=== PATIENT | female | born 1985 | race African-American/Black ===

== ENCOUNTER 2017-03-29 20:52 | Inpatient (IN) | payer OTHER ==
[~2017-03-29] VITALS: Ht 160 cm; Wt 64.0 kg
[~2017-03-29 20:52] MED LIST: ALBUTEROL SULF8.5 GM INH; ALBUTEROL0.63 MG/3; ALBUTEROL0.63 MG/3 INH; AMBIEN10 MG PO; AMBIEN5 MG PO; AMLODIPINE BESY10 MG PO; AMLODIPINE BESYL5 MG PO; ATIVAN0.5 MG PO; ATIVAN1 MG PO; ATIVAN2 MG PO; BACLOFEN10 MG PO; BENADRYL25 M1 PO; BENADRYL50 MG/1 ML IV; BENTYL10 MG PO; BENTYL20 MG PO; BUTALB-ACETAMI1 EACH; CARAFATE1 GM PO; CARAFATE1 GM/10 ML PO; CARDIZEM30 MG PO; CARDURA2 MG PO; CEFUROXIME250 MG PO; CIPROFLOXACIN500 MG PO; CLARITIN-D 241 EACH PO; CLONAZEPAM1 MG PO; COLACE100 MG PO; COREG12.5 MG PO; COZAAR25 MG PO; DIALYVITE TABL1 EACH PO; DIAZEPAM10 MG PO; DIFLUCAN200 MG PO; DIGOXIN250 MCG PO; DILANTIN100 MG PO; DULCOLAX10 MG PO; FERROUS SULFAT325 MG PO; FLAGYL500 MG PO; Fluticasone Propionate NS; GABAPENTIN100 MG PO; GABAPENTIN300 MG PO; HEPARIN SO1000 UNIT1 IV; HUMULIN R100 UNIT/2 SC; HUMULIN R100 UNIT/2 SQ; HYDRALAZINE HCL25 MG PO; HYDROCHLOROTHIA25 MG PO; HYDROCORTISONE OT; IPRATROPIU0.2 MG/1 M NEB; IRON45 MG PO; Isosorbide Mononitrate PO; LABETALOL HCL300 MG PO; LANOXIN250 MCG PO; LANTUS100 UNITS/ SC; LASIX40 MG PO; LEVAQUIN500 MG PO; LEVEMIR100 UNIT/1 SC; LEVOTHROID88 MCG PO; LIDOCAINE20 MG/1 ML PO; LOPRESSOR25 MG PO; MAGNESIUM CITRATE PO; MECLIZINE HCL12.5 MG PO; MEDROXYPROGESTE10 MG PO; METHOCARBAMOL500 MG PO; METOCLOPRAMID5 MG/ML PO; METOCLOPRAMIDE10 MG PO; METOPROLOL SUCC50 MG PO; METOPROLOL TART50 MG PO; METPCK PO; METRONIDAZOLE500 MG PO; MINOXIDIL2.5 MG PO; MIRTAZAPINE15 MG PO; MORPHINE SULFAT30 M2 PO; MORPHINE SULFAT60 MG PO; MS CONTIN30 MG PO; MUCINEX600 MG PO; NEOMYCIN OT; NEXIUM40 MG PO; NFD30TCR PO; NIFEDIPINE ER30 M1 PO; Nifedipine PO; ORPHENADRINE C100 MG PO; PANTOPRAZOLE SO40 MG PO; PENICILLIN V P500 MG PO; PHENERGAN SUPP25 MG PR; PNT40V PO; PRINIVIL10 MG PO; PROBIOTIC & AC1 EACH PO; PROMETHAZINE HC25 M1 PO; PROTONIX40 MG PO; Phenytoin Sodium PO; QUESTRAN LIGHT P4 GM PO; RANITIDINE HCL300 MG PO; REGLAN10 MG PO; ROBAXIN500 MG PO; SENOKOT8.6 MG PO; SODIUM BICARBO650 MG PO; SUCRALFATE1 G/10 ML PO; SULFAMETHOXAZO1 EAC1 PO; TIZANIDINE HCL4 M1; TOBRADEX EYE DRO5 ML OS; TRANDATE200 MG PO; XANAX XR1 MG PO; XANAX0.5 MG PO; ZYRTEC10 M3 PO; [UNRECOGNIZED DRUG - OTHER] OT
[2017-03-29] MEDS ORDERED: BENADRYL25 M1 PO (22:48)
[2017-03-29] MEDS ORDERED: LOMOTIL TABLET1 EACH PO (22:49)
[2017-03-29] MEDS ORDERED: HYDROXYZINE HCL25 MG PO (22:49)
[2017-03-29] MEDS ORDERED: MORPHINE SULFATE 2 MG/ML SYR IV STA (23:32)
[2017-03-29] MEDS ORDERED: PROMETHAZINE 12.5MG/ NACL 0.9% 12.5 MG/50 ML BAG IV ONE (23:45)
[2017-03-29] MEDS ORDERED: DIPHENHYDRAMINE HCL INJ 50 MG/ML VIAL IV ONE (23:45)
[2017-03-30 00:15] LABS: BASOPHILS % 0.4 % (0.0-1.0); EOSINOPHILS # (AUTO) 0.2 (0.0-0.4); EOSINOPHILS % 4.5 % (0.0-6.0); HEMATOCRIT 30.9 % (34.2-44.1); HEMOGLOBIN 9.3 g/dL (12.0-16.0); LYMPHOCYTES # (AUTO) 1.3 (1.0-3.2); LYMPHOCYTES % 25.9 % (18.0-39.1); MEAN CORPUSCULAR HEMOGLOBIN 27.2 pg (28-32); MEAN CORPUSCULAR HGB CONC 30.1 g/dL (31-35); MEAN CORPUSCULAR VOLUME 90.4 fL (81-99); MONOCYTES # (AUTO) 0.3 (0.2-0.8); MONOCYTES % 6.8 % (4.4-11.3); NEUTROPHILS % 61.8 % (38.7-80.0); PLATELET COUNT 216 x10e3/uL (140-360); RED BLOOD COUNT 3.42 x10e6/uL (3.6-5.1); RED CELL DISTRIBUTION WIDTH 17.1 % (11.7-14.4)
[2017-03-30 00:17] LABS: ALBUMIN 2.9 g/dL (3.5-5.0); ALBUMIN/GLOBULIN RATIO 0.6 (0.8-2.0); ANION GAP 10.6 mmol/L (8-16); CALCIUM 8.6 mg/dL (8.4-10.2); CREATININE, SERUM 2.49 mg/dL (0.57-1.11); POTASSIUM 3.6 mmol/L (3.5-5.1)
--- NOTE | 2017-03-30 00:26 | Diagnostic Imaging Report ---
CHEST SINGLE (PORTABLE), 03/29/2017 11:32 PM Technique: CHEST SINGLE (PORTABLE) Comparison: 02/19/2017 Clinical history: Shortness of breath Findings: See Impression Impression: 1. Lines/Tubes: Placement of left chest wall midline/presternal single-lead ICD. Stable left port and right central venous catheter projecting near the high right atrium/cavoatrial junction and SVC, respectively. 2. Stable mild cardiomegaly. 3. No overt edema or consolidation. No significant effusion. Signed by: Dr Winsome Reyez MD on 03/30/2017 12:23 AM
[2017-03-30 01:46] LABS: BILIRUBIN,URINE NEGATIVE (NEGATIVE); CLARITY,URINE CLOUDY (CLEAR); COLOR,URINE YELLOW (YELLOW); KETONES,URINE NEGATIVE (NEGATIVE); LEUKOCYTE ESTERASE ,URINE 2+ (NEGATIVE); NITRITE,URINE NEGATIVE (NEGATIVE); PROTEIN,URINE DIPSTICK 3+ (NEGATIVE); URINE UROBILINOGEN 0.2 mg/dL (0.2 - 1)
[2017-03-30 01:58] LABS: BACTERIA,URINE MODERATE /HPF; EPITHELIAL CELLS,URINE FEW /LPF; MUCUS,URINE MODERATE (RARE); WBC,URINE (MAN) >50 /HPF (0-5)
[2017-03-30] MEDS ORDERED: SODIUM CHLORIDE FLUSH 10 ML SYR INJ PRN (02:30)
[2017-03-30] MEDS: MORPHINE SULFATE 2 MG/ML SYR IV SCH ×6 (02:39→22:26)
[2017-03-30] MEDS: CEFTRIAXONE SOD 1 GM VIAL IV SCH (02:39)
[2017-03-30 03:00] VITALS: BP 153/111
[2017-03-30 03:15] VITALS: BP 151/90
[2017-03-30] MEDS: DILTIAZEM HCL 30 MG TAB PO SCH ×5 (04:37→21:30)
[2017-03-30] MEDS: CARVEDILOL 12.5 MG TAB PO SCH ×3 (04:38→17:15)
[2017-03-30] MEDS: DIPHENHYDRAMINE HCL INJ 50 MG/ML VIAL IV SCH ×5 (06:35→22:26)
[2017-03-30] MEDS ORDERED: SODIUM CHLORIDE 0.9% 250ML 250 ML ONE (07:22)
[2017-03-30] MEDS: PROMETHAZINE 12.5MG/ NACL 0.9% 12.5 MG/50 ML BAG IV PRN ×3 (07:26→18:43)
[2017-03-30 08:49] VITALS: BP 142/94
[2017-03-30] MEDS ORDERED: DOCUSATE SODIUM 100 MG CAP PO PRN (11:45)
[2017-03-30] MEDS ORDERED: DIPHENOXYLATE/ATROPINE TAB PO PRN (11:45)
[2017-03-30 12:00] VITALS: BP 146/99
[2017-03-30] MEDS ORDERED: DEXTROSE 50% SYRINGE 50 ML IV PRN (12:00)
[2017-03-30] MEDS: PHENYTOIN SODIUM EXT REL 100 MG CAP PO SCH ×2 (12:26→23:48)
[2017-03-30] MEDS ORDERED: CEFTRIAXONE SOD 1 GM VIAL IV SCH (14:30)
[2017-03-30] MEDS ORDERED: DICLOFENAC SOD 1% GEL 100 GM TUBE TP PRN (14:30)
[2017-03-30] MEDS: HYDROXYZINE HCL 25 MG TAB PO SCH ×2 (14:50→21:28)
[2017-03-30] MEDS: SUCRALFATE 1 GM/10 ML SUSP PO SCH ×2 (14:50→21:28)
[2017-03-30 16:00] VITALS: BP 142/100
--- NOTE | 2017-03-30 16:05 | History and Physical ---
PRIMARY CARE PROVIDER: Dr. Ger Mukherjee. CHIEF COMPLAINT: Recalcitrant nausea and vomiting. HISTORY OF PRESENT ILLNESS: Ms. Bermeo is a 31-year-old lady. This is one of multiple admissions that she has had for the same issue of recalcitrant nausea, vomiting and diabetic gastroparesis. [facility] for this problem. She was sent home without proper arrangements for tube feeding. She started trying to eat on her own. She has had recalcitrant nausea and vomiting with some food coming out around the PEG tube when she vomits, also food coming through the PEG tube as well. While she was at [facility], she also had an AICD placed for nonischemic cardiomyopathy and mitral valve prolapse. PAST MEDICAL HISTORY: Significant for longstanding type-1 diabetes diagnosed at age 12 or 13. She has multiple complications including neurogenic bladder requiring self-catheterization, gastroparesis and peripheral neuropathy. She has end-stage renal disease due to diabetic nephropathy. She is on hemodialysis now for approximately a year. She has high blood pressure. She has a history of cholecystectomy, an AICD defibrillator placement, PEG tube placement, and a Port-A-Cath for IV access. She has chronic systolic heart failure with nonischemic cardiomyopathy. Last ejection fraction 40% to 45% with global hypokinesia. HOME MEDICATIONS: Include: 1. Albuterol neb treatments. 2. Coreg 25 mg twice daily. 3. Clonazepam 2 mg 3 times a day. 4. Diltiazem 30 mg 4 times a day. 5. Lomotil as needed. 6. Colace as needed. 7. Nephro-Karyn daily. 8. Lasix 80 mg twice daily. 9. Hydroxyzine 25 mg 3 times a day. 10. Probiotic capsule twice a day. 11. Robaxin 500 mg twice a day. 12. Protonix 40 twice a day before meals. 13. Dilantin 100 mg twice a day. 14. Carafate 1 g 3 times a day before meals. 15. Ambien 10 mg at bedtime. 16. Flonase nasal spray. 17. Morphine sulfate, MS Contin, 30 mg twice daily. 18. Promethazine 25 mg as needed for nausea or vomiting. 19. Sliding-scale regular insulin as well as 7 units with each meal of regular insulin. 20. Benadryl as needed. ALLERGIES: SHE HAS STATED ALLERGY TO LATEX, NATURAL RUBBER, PENICILLIN, ZOFRAN, TORADOL AND DILAUDID. FAMILY HISTORY: Unremarkable. SOCIAL HISTORY: Patient is . French is her primary language. She lives with her mother who takes care of her. She does not smoke, drink or use illegal drugs and is generally independently functioning. PHYSICAL EXAMINATION PSYCHIATRIC: She is alert and oriented times 3 with normal mood and affect. CONSTITUTIONAL: She has a normal body habitus and is in no acute distress. VITAL SIGNS: Blood pressure 142/94. Pulse 106 and regular. Respiratory rate 18. O2 sat 100% on 2 L nasal cannula. Temperature 97.3. HEENT: Head is atraumatic. Her eyes are anicteric. Oropharynx is clear. Ears and nares are without erythema or discharge. NECK: Supple with no mass or thyromegaly. LYMPHATIC SYSTEM: She has no palpable cervical, axillary or inguinal adenopathy. CARDIOVASCULAR: Heart has a regular rate and rhythm without murmur or extra heart sounds. She has no carotid bruit. She has no peripheral edema. She has weak dorsal pedal pulses. RESPIRATORY: Lungs are clear to auscultation and percussion with normal respiratory effort. GASTROINTESTINAL: Abdomen is soft without organomegaly, masses or tenderness. She has a functioning PEG tube in place. She has normal bowel sounds present. CUTANEOUS: Her skin is warm and dry to touch with no rash or skin breakdown. MUSCULOSKELETAL: Her joints are in normal alignment without erythema or swelling. She has no calf tenderness. NEUROLOGIC: Exam is nonfocal with intact cranial nerves and no motor or sensory deficits. She does have some mild peripheral sensory neuropathy due the diabetes. DIAGNOSTIC STUDIES: Chest x-ray shows no acute disease. Her UA shows greater than 50 white cells. Her CBC shows a white count of 4.86 with a normal differential. Hemoglobin 9.3, hematocrit 30.9, platelet count 216,000. Her chemistry shows normal electrolytes, CO2 27, creatinine 2.49 and BUN 15 for a GFR of 28, calcium 8.6, glucose 155. Transaminases and bilirubin are normal. Alk phos is slightly elevated at 179. IMPRESSION AND PLAN 1. Recalcitrant nausea, vomiting and diabetic gastroparesis. The patient will continue to attempt a regular diet. Will add back her Reglan 10 mg 3 times a day before meals. She is on p.r.n. Phenergan. We will get GI to come evaluate the PEG tube and make sure it is placed properly. Will get case management involved to make sure that she has adequate arrangements for the tube feeding when she leaves the hospital. 2. End-stage renal disease on hemodialysis. Will consult nephrology for her regular hemodialysis schedule. 3. Type-1 diabetes with end-stage renal disease and neuropathy. Will continue with sliding-scale insulin as needed. 4. Hypertension complicated by congestive heart failure from nonischemic cardiomyopathy. The patient will continue on Coreg, diltiazem and Lasix along with dialysis for volume control. 5. For prophylaxis, the patient will be on subcutaneous heparin for DVT prophylaxis and Protonix for GI prophylaxis. Job#: [id number]
[2017-03-30] MEDS: INSULIN REGULAR, HUMAN 100 UNIT/1 ML 3ML VIAL SQ SCH ×2 (16:30→21:00)
[2017-03-30] MEDS: AMMONIUM LACTATE 12% LOTION 225GM BTL TOP SCH (17:00)
[2017-03-30] MEDS: PANTOPRAZOLE SODIUM 40 MG SUSPDR.PKT PO SCH (17:14)
[2017-03-30] MEDS: METOCLOPRAMIDE HCL 10 MG TAB PO SCH ×2 (17:14→21:30)
[2017-03-30] MEDS: CLONAZEPAM 1 MG TAB PO SCH ×2 (17:14→21:30)
[2017-03-30] MEDS: METHOCARBAMOL 500 MG TAB PO SCH (17:16)
[2017-03-30] MEDS: FUROSEMIDE 40 MG TAB PO SCH (17:16)
[2017-03-30] MEDS: LACTOBACILLUS ACIDOPHILUS CAPSULE PO SCH (17:16)
[2017-03-30] MEDS ORDERED: PROPOFOL IV EMULSION 10 MG/ML 50 ML VIAL ONE (18:22)
[2017-03-30] MEDS ORDERED: LIDOCAINE HCL 2% LOCAL INJ 5 ML SDV VIAL INJ ONE (18:22)
[2017-03-30 20:36] VITALS: BP 114/84
[2017-03-30] MEDS: HEPARIN SOD (PORCINE) 5,000 UNIT/ML VIAL SC SCH (21:00)
[2017-03-30] MEDS: ZOLPIDEM TARTRATE 10 MG TAB PO SCH (21:28)
[2017-03-31] MEDS: PROMETHAZINE 12.5MG/ NACL 0.9% 12.5 MG/50 ML BAG IV PRN ×3 (00:01→22:08)
[2017-03-31 00:18] VITALS: BP 146/97
[2017-03-31] MEDS ORDERED: METOCLOPRAMIDE HCL 10 MG/2ML VIAL IV ONE (01:30)
--- NOTE | 2017-03-31 01:35 | Consultation ---
DATE OF CONSULTATION: March 30, 2017 NEPHROLOGY CONSULTATION NOTE REASON FOR CONSULTATION: ESRD. REFERRING PHYSICIAN: ER physician. HISTORY OF PRESENT ILLNESS: This is a 31-year-old female with past medical history of: 1. ESRD, on hemodialysis, on a Zyvncd-Ozxrgusvn-Krkdek schedule through right chest PermCath at [facility] in the [facility] area. Patient of Dr. Azar. 2. Hypertension. 3. Status post right PermCath placement. 4. Diabetes mellitus. 5. Gastroparesis with neuropathy and neurogenic bladder. 6. Status post PEG tube placement. 7. Congestive heart failure with an EF of 40%, was admitted with leakage of the PEG tube and abdominal discomfort. She was noted to have urinary tract infection for which she has been placed on IV antibiotics. At the time of my examination, she appeared in no acute distress and denied any significant nausea, vomiting, chest pain, shortness of breath, but did complain of abdominal discomfort. No focal weakness. PAST MEDICAL AND SURGICAL HISTORY: As above. PERSONAL AND SOCIAL HISTORY: No history of alcohol or tobacco recently. PHYSICAL EXAMINATION: GENERAL: She appeared in no acute distress. VITAL SIGNS: Blood pressure 142/94, respirations 16 to 18, heart rate 106, temperature 97.3. HEENT: Head was atraumatic, normocephalic. Pupils were react to light. Mouth: She was edentulous. NECK: Supple. There was no significant lymphadenopathy or thyromegaly. CHEST: Revealed fair air entry. HEART: S1, S2. ABDOMEN: Soft, but mildly tender around the PEG tube, which was in place. Bowel sounds were positive. EXTREMITIES: No edema. COST CONTROLLER: She was awake and alert and oriented x3. Cranial nerves were intact. There was no gross motor deficit noted. LABS: Urinalysis, cloudy urine, 3+ protein, 2+ blood, leukocyte esterase positive, RBCs 6 to 10, WBCs more than 50, moderate bacteria. Sodium 140, potassium 3.6, chloride 106, CO2 27, BUN 15, creatinine 2.5, glucose 155, albumin 2.9. IMPRESSION: 1. End-stage renal disease, on hemodialysis, on a Qapkvq-Cewxyilsa-Nmmirb schedule with no evidence of volume overload or hyperkalemia. 2. Anemia secondary to chronic kidney disease. 3. Urinary tract infection. PLAN: Strict I's and O's, hepatitis surface antigen, CBC and BMP in a.m. Epogen 5000 units subcutaneously every Saturday, Saturday, Saturday. No acute indication for hd today. Further recommendations to follow. Thank you for the consultation. Job#: [id number] DR SANDHU
[2017-03-31] MEDS: DIPHENHYDRAMINE HCL INJ 50 MG/ML VIAL IV SCH ×6 (02:00→22:28)
[2017-03-31] MEDS: MORPHINE SULFATE 2 MG/ML SYR IV SCH ×6 (02:30→22:26)
[2017-03-31] MEDS: CEFTRIAXONE SOD 1 GM VIAL IV SCH (02:39)
[2017-03-31] MEDS ORDERED: METOCLOPRAMIDE HCL 10 MG/2ML VIAL IV SCH (06:00)
[2017-03-31 06:38] VITALS: BP 130/90
[2017-03-31] MEDS: METOCLOPRAMIDE HCL 10 MG/2ML VIAL IV SCH ×3 (06:40→18:32)
[2017-03-31 07:08] LABS: BASOPHILS % 0.7 % (0.0-1.0); EOSINOPHILS # (AUTO) 0.2 (0.0-0.4); HEMATOCRIT 30.8 % (34.2-44.1); HEMOGLOBIN 9.1 g/dL (12.0-16.0); LYMPHOCYTES # (AUTO) 1.4 (1.0-3.2); LYMPHOCYTES % 35.2 % (18.0-39.1); MEAN CORPUSCULAR HEMOGLOBIN 26.9 pg (28-32); MEAN CORPUSCULAR HGB CONC 29.5 g/dL (31-35); MEAN CORPUSCULAR VOLUME 91.1 fL (81-99); MONOCYTES # (AUTO) 0.3 (0.2-0.8); MONOCYTES % 7.5 % (4.4-11.3); NEUTROPHILS % 50.9 % (38.7-80.0); PLATELET COUNT 207 x10e3/uL (140-360); RED BLOOD COUNT 3.38 x10e6/uL (3.6-5.1)
[2017-03-31] MEDS: INSULIN REGULAR, HUMAN 100 UNIT/1 ML 3ML VIAL SQ SCH ×4 (07:30→21:00)
[2017-03-31 08:00] VITALS: BP 133/94
[2017-03-31 08:22] LABS: ANION GAP 12.7 mmol/L (8-16); CALCIUM 8.2 mg/dL (8.4-10.2); CREATININE, SERUM 2.97 mg/dL (0.57-1.11); POTASSIUM 3.7 mmol/L (3.5-5.1)
[2017-03-31] MEDS: CLONAZEPAM 1 MG TAB PO SCH ×3 (08:33→22:08)
[2017-03-31] MEDS: METHOCARBAMOL 500 MG TAB PO SCH ×2 (08:33→18:32)
[2017-03-31] MEDS: FUROSEMIDE 40 MG TAB PO SCH ×2 (08:33→18:32)
[2017-03-31] MEDS: PANTOPRAZOLE SODIUM 40 MG SUSPDR.PKT PO SCH ×2 (08:33→18:30)
[2017-03-31] MEDS: SUCRALFATE 1 GM/10 ML SUSP PO SCH ×3 (08:33→22:08)
[2017-03-31] MEDS: DILTIAZEM HCL 30 MG TAB PO SCH ×4 (08:33→22:29)
[2017-03-31] MEDS: CARVEDILOL 12.5 MG TAB PO SCH ×2 (08:33→18:32)
[2017-03-31] MEDS: FOLIC ACID/CYANOCOB/PYRIDOXINE TAB PO SCH (08:33)
[2017-03-31] MEDS: LACTOBACILLUS ACIDOPHILUS CAPSULE PO SCH ×2 (08:33→18:32)
[2017-03-31] MEDS: HYDROXYZINE HCL 25 MG TAB PO SCH ×3 (08:33→22:08)
[2017-03-31] MEDS: HEPARIN SOD (PORCINE) 5,000 UNIT/ML VIAL SC SCH ×2 (08:34→21:00)
[2017-03-31] MEDS: AMMONIUM LACTATE 12% LOTION 225GM BTL TOP SCH ×3 (12:02→18:32)
[2017-03-31] MEDS: PHENYTOIN SODIUM EXT REL 100 MG CAP PO SCH ×2 (12:03→23:45)
[2017-03-31] MEDS: MUPIROCIN 2% OINT 22 GM TUBE TOP SCH (12:04)
--- NOTE | 2017-03-31 12:33 | Consultation ---
DATE OF CONSULTATION: March 30, 2017 PODIATRY CONSULTATION ADMITTING PHYSICIAN: Ger Mukherjee MD REASON FOR CONSULTATION: Patient having diabetes with a grade-1 ulceration, left heel, with eczema and burning sensation to the plantar forefoot aspect of both feet. HISTORY OF PRESENT ILLNESS: This is a pleasant, 31-year-old female who is having some discomfort and pain to the plantar forefoot aspect of both lower extremities and has a nonhealing lesion to the medial aspect of the left heel she has had present for at least 1 year according to the patient. The patient was admitted secondary to a UTI. PAST MEDICAL HISTORY: Remarkable for insulin-dependent diabetes, hypertension, end-stage renal disease times 1-1/2 years, epilepsy, congestive heart failure, gastritis. PAST SURGICAL HISTORY: Remarkable for defibrillator placement, cholecystectomy, insertion and removal of suprapubic tube. ALLERGIES: ASPIRIN, PENICILLIN, DILAUDID, TYLENOL. SOCIAL HISTORY: Denies any smoking, drinking or recreational drug use. FAMILY HISTORY: Remarkable for hypertension and diabetes. CURRENT MEDICATIONS: Note listed in the chart, including 1 g of ceftriaxone every 24 hours. REVIEW OF SYSTEMS CARDIAC: Denying any palpitations or arrhythmias. RESPIRATORY: Denies any shortness of breath or productive cough. GASTROINTESTINAL: Does relate some abdominal pain. Patient has a feeding tube. GENITOURINARY: Denies any hematuria. VITALS: Afebrile. Pulse rate 106, respirations 18, blood pressure 142/94, O2 saturation 100%. LABS: Noted. Has a white blood cell count of 4.86 with a platelet count of 216. PODIATRIC PHYSICAL EXAMINATION VASCULATURE: Pedal pulses to both the dorsalis pedis and posterior tibial arteries are palpable. NEUROLOGICAL: Decrease in protective sensation when utilizing the [place] 5.07 monofilament wire. MUSCULOSKELETAL: Examination shows muscle mass to be symmetric and muscle strength to be 4/5 to all muscle groups. DERMATOLOGICAL: Examination reveals eczema to the plantar and dorsal aspects of both feet and legs. Excoriations noted. Has a grade-1 ulcer to the medial aspect of the left heel measuring 1.5 to 2 cm in diameter with superficial necrosis noted down to dermis. Has a burning sensation to the forefoot aspect of both feet with negative Tonya sign when palpating the 2nd and 3rd interspaces of both lower extremities. ASSESSMENT 1. Diabetic neuropathy. 2. Eczema. 3. Dermatitis. 4. Grade-1 ulcer. PLAN: Sharp excisional debridement of the ulcer was carried down to dermis. Devitalized tissue removed. Bleeding tissue achieved. Cultures were taken for aerobic and anaerobic growth. Amlactin 12% lotion will be applied to both legs and feet b.i.d. Bactroban ointment to be applied to the ulceration followed by a light dry dressing b.i.d. Continue offloading. Continue IV antibiotics. Will continue to follow. Voltaren gel to be applied for the burning sensation every 8 hours as needed. Job#: [id number]
[2017-03-31 12:47] VITALS: BP 135/95
--- NOTE | 2017-03-31 12:51 | Progress Note ---
DATE: March 31, 2017 SUBJECTIVE: Patient is doing better. Decreased pain to both lower extremities. Decreased burning sensation to bilateral lower extremities. OBJECTIVE: Vitals: Afebrile. Pulse rate 100, respirations 20, blood pressure 130/90. O2 saturation 99%. Ulceration to the left lower extremity looking better. Decreased eczema to both lower extremities. Pedal pulses are palpable but diminished. ASSESSMENT: Grade-1 ulcer, left foot. Diabetic neuropathy with eczema. PLAN: Continue plan of prescribed medications. Continue offloading. Will continue to follow. Job#: [id number]
[2017-03-31 16:00] VITALS: BP 135/88
[2017-03-31 20:00] VITALS: BP 114/84
[2017-03-31] MEDS: ZOLPIDEM TARTRATE 10 MG TAB PO SCH (22:08)
[2017-04-01] MEDS ORDERED: METOCLOPRAMIDE HCL 10 MG/2ML VIAL IV STA (00:20)
[2017-04-01 00:35] VITALS: BP 128/93
[2017-04-01] MEDS: DIPHENHYDRAMINE HCL INJ 50 MG/ML VIAL IV SCH ×6 (02:00→22:36)
[2017-04-01] MEDS: CEFTRIAXONE SOD 1 GM VIAL IV SCH (02:30)
[2017-04-01] MEDS: MORPHINE SULFATE 2 MG/ML SYR IV SCH ×6 (02:30→22:36)
[2017-04-01] MEDS: PROMETHAZINE 12.5MG/ NACL 0.9% 12.5 MG/50 ML BAG IV PRN ×4 (02:30→22:45)
[2017-04-01 04:38] VITALS: BP 124/90
[2017-04-01] MEDS: INSULIN REGULAR, HUMAN 100 UNIT/1 ML 3ML VIAL SQ SCH ×4 (07:30→21:00)
[2017-04-01] MEDS: PANTOPRAZOLE SODIUM 40 MG SUSPDR.PKT PO SCH ×2 (07:30→17:38)
[2017-04-01 07:46] LABS: BASOPHILS % 0.4 % (0.0-1.0); EOSINOPHILS # (AUTO) 0.3 (0.0-0.4); EOSINOPHILS % 6.5 % (0.0-6.0); HEMATOCRIT 29.1 % (34.2-44.1); HEMOGLOBIN 8.5 g/dL (12.0-16.0); LYMPHOCYTES # (AUTO) 1.5 (1.0-3.2); LYMPHOCYTES % 33.7 % (18.0-39.1); MEAN CORPUSCULAR HEMOGLOBIN 27.1 pg (28-32); MEAN CORPUSCULAR HGB CONC 29.2 g/dL (31-35); MEAN CORPUSCULAR VOLUME 92.7 fL (81-99); MONOCYTES # (AUTO) 0.3 (0.2-0.8); MONOCYTES % 5.8 % (4.4-11.3); NEUTROPHILS # (AUTO) 2.3 (2.1-6.9); NEUTROPHILS % 52.7 % (38.7-80.0); PLATELET COUNT 174 x10e3/uL (140-360); RED BLOOD COUNT 3.14 x10e6/uL (3.6-5.1)
--- NOTE | 2017-04-01 07:46 | Progress Note ---
DATE: April 01, 2017 SUBJECTIVE: Patient doing better. Decreased pain to the left lower extremity with decreased burning and tingling to both lower extremities. OBJECTIVE VITAL SIGNS: Afebrile. Vital signs stable. EXTREMITIES: Decreased eczema and cellulitis to both lower extremities. Ulcer healing to the left heel. Pedal pulses are diminished. ASSESSMENT 1. Neuralgia. 2. Grade 1 ulcer with dermatitis. PLAN: Continue applying prescribed medications. Continue offloading. Upon discharge, the patient is to follow up in the office. Will continue to follow as long as the patient is in the hospital. Job#: [id number] ULISSES
[2017-04-01 07:57] LABS: ANION GAP 12.2 mmol/L (8-16); CALCIUM 8.2 mg/dL (8.4-10.2); CREATININE, SERUM 3.56 mg/dL (0.57-1.11); POTASSIUM 4.2 mmol/L (3.5-5.1)
[2017-04-01 08:00] VITALS: BP 130/93
[2017-04-01] MEDS: FOLIC ACID/CYANOCOB/PYRIDOXINE TAB PO SCH (09:00)
[2017-04-01] MEDS: FUROSEMIDE 40 MG TAB PO SCH ×2 (09:00→17:39)
[2017-04-01] MEDS: METHOCARBAMOL 500 MG TAB PO SCH ×2 (09:00→17:39)
[2017-04-01] MEDS: SUCRALFATE 1 GM/10 ML SUSP PO SCH ×3 (09:00→23:26)
[2017-04-01] MEDS: CARVEDILOL 12.5 MG TAB PO SCH ×2 (09:00→17:39)
[2017-04-01] MEDS: CLONAZEPAM 1 MG TAB PO SCH ×3 (09:00→21:00)
[2017-04-01] MEDS: HYDROXYZINE HCL 25 MG TAB PO SCH ×3 (09:00→23:26)
[2017-04-01] MEDS: DILTIAZEM HCL 30 MG TAB PO SCH ×4 (09:00→22:30)
[2017-04-01] MEDS: LACTOBACILLUS ACIDOPHILUS CAPSULE PO SCH ×2 (09:00→17:39)
[2017-04-01] MEDS: METOCLOPRAMIDE HCL 10 MG/2ML VIAL IV SCH ×4 (10:35→23:26)
[2017-04-01] MEDS: HEPARIN SOD (PORCINE) 5,000 UNIT/ML VIAL SC SCH ×2 (10:43→23:28)
[2017-04-01] MEDS: PHENYTOIN SODIUM EXT REL 100 MG CAP PO SCH ×2 (11:45→23:27)
[2017-04-01 12:00] VITALS: BP 131/93
[2017-04-01] MEDS ORDERED: DIPHENHYDRAMINE HCL INJ 50 MG/ML VIAL IV ONE (12:45)
[2017-04-01] MEDS: MUPIROCIN 2% OINT 22 GM TUBE TOP SCH (13:34)
[2017-04-01] MEDS: AMMONIUM LACTATE 12% LOTION 225GM BTL TOP SCH ×2 (13:34→17:39)
[2017-04-01] MEDS: EPOETIN ALFA 10000 UNIT/ML VIAL SC SCH (14:04)
[2017-04-01] MEDS ORDERED: ALBUMIN HUMAN 12.5GM / 50ML IV PRN (15:30)
[2017-04-01] MEDS ORDERED: SODIUM CHLORIDE 0.9% 1000ML 2,000 ML IV PRN (15:30)
[2017-04-01] MEDS ORDERED: MANNITOL 25% 12.5GM/50 ML VIAL IV PRN (15:30)
[2017-04-01] MEDS ORDERED: HEPARIN SOD (PORCINE) 1000 UNIT/ML SDV IV PRN (15:30)
[2017-04-01] MEDS ORDERED: SODIUM CHLORIDE 0.9% 250ML 500 ML IV PRN (15:30)
[2017-04-01 16:00] VITALS: BP_SYST 140; BP_SYST 178; BP_DIAS 110; BP_DIAS 81
[2017-04-01] MEDS ORDERED: MIDAZOLAM HCL 2 MG/2 ML VIAL ONE (18:45)
[2017-04-01 20:00] VITALS: BP 119/77
--- NOTE | 2017-04-01 22:10 | Operative Report ---
DATE OF PROCEDURE: April 01, 2017 REFERRING PHYSICIAN: Dr. Mukherjee PROCEDURE PERFORMED: EGD with pyloric channel dilatation and biopsies. INDICATIONS FOR EGD: Upper abdominal pain, nausea, and vomiting, history of diabetic gastroparesis. MEDICATION: Patient was done under MAC. Please see anesthesiologist's note. PROCEDURE: With patient in a decubitus position, flexible fiberoptic Olympus gastroscope was introduced into the esophagus under direct visualization without any difficulty. There was some patchy erythema noted in the distal esophagus. The scope was then advanced with ease into the stomach. A large amount of retained liquid and liquid debris was noted in the stomach and those were suctioned. The mucosa overlying the body and the antrum revealed some patchy intense erythema and moderate edema and biopsies were obtained and sent to stain for H. pylori. The bumper of the J-tube was noted and the J-tube was in good position traversing the pylorus all the way into the pouch of the 2nd portion of the duodenum. The pylorus was somewhat stenotic and that was dilated to a size approximately 16 mm per TTS balloon dilators. There was some peripyloric nodules and those were biopsied. The scope was then advanced with ease all the way to the 2nd portion of the duodenum. It was then withdrawn slowly and mucosa overlying the proximal 2nd portion of the duodenal bulb appeared to be within normal limits. The scope was then withdrawn back into the stomach and retroflexed and the mucosa overlying the fundus and the cardia appeared to be within normal limits. The scope was then straightened out. The stomach was decompressed. The scope subsequently withdrawn. Patient tolerated the procedure well. IMPRESSIONS 1. Distal esophagitis. 2. Gastritis biopsied. Biopsy sent to stain for Helicobacter pylori. 3. 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 4. Jejunostomy tube is in good position. PLAN: Polyp histology. Start tube feeding with Glucerna at 35 mL an hour. Job#: [id number] CQ cc:JOHN MUKHERJEE MD
[2017-04-01] MEDS: ZOLPIDEM TARTRATE 10 MG TAB PO SCH (23:26)
[2017-04-02] MEDS: DIPHENHYDRAMINE HCL INJ 50 MG/ML VIAL IV SCH ×6 (02:30→22:35)
[2017-04-02] MEDS: CEFTRIAXONE SOD 1 GM VIAL IV SCH (02:31)
[2017-04-02] MEDS: PROMETHAZINE 12.5MG/ NACL 0.9% 12.5 MG/50 ML BAG IV PRN ×4 (02:31→22:30)
[2017-04-02] MEDS: MORPHINE SULFATE 2 MG/ML SYR IV SCH ×6 (02:31→22:35)
[2017-04-02] MEDS: PANTOPRAZOLE SODIUM 40 MG SUSPDR.PKT PO SCH ×2 (07:30→16:30)
[2017-04-02] MEDS: INSULIN REGULAR, HUMAN 100 UNIT/1 ML 3ML VIAL SQ SCH ×4 (07:30→21:00)
[2017-04-02] MEDS: METOCLOPRAMIDE HCL 10 MG/2ML VIAL IV SCH ×4 (07:30→21:16)
[2017-04-02] MEDS: ALBUTEROL SULF 0.083% NEB SOLN 3 ML NEB INH SCH ×3 (07:43→21:30)
[2017-04-02 07:52] VITALS: BP 124/81
--- NOTE | 2017-04-02 08:58 | Progress Note ---
DATE: April 02, 2017 SUBJECTIVE: Patient was seen at the bedside. Doing better. OBJECTIVE EXTREMITIES: Ulceration to the left lower extremity healing. Positive eczema to both lower extremities also getting better. Pedal pulses are palpable. ASSESSMENT 1. Dermatitis. 2. Grade 1 ulceration, left foot with neuralgia. PLAN: Will continue plan of prescribed medications. Continue offloading. Continue local wound care. Will continue to follow. Job#: [id number] ULISSES
[2017-04-02] MEDS: METHOCARBAMOL 500 MG TAB PO SCH ×2 (09:00→17:00)
[2017-04-02] MEDS: LACTOBACILLUS ACIDOPHILUS CAPSULE PO SCH ×2 (09:00→17:00)
[2017-04-02] MEDS: AMMONIUM LACTATE 12% LOTION 225GM BTL TOP SCH ×2 (09:00→17:00)
[2017-04-02] MEDS: MUPIROCIN 2% OINT 22 GM TUBE TOP SCH (09:00)
[2017-04-02] MEDS: CLONAZEPAM 1 MG TAB PO SCH ×3 (09:00→21:17)
[2017-04-02] MEDS: ASCORBIC ACID 500 MG TAB PO SCH ×2 (09:00→17:00)
[2017-04-02] MEDS: SUCRALFATE 1 GM/10 ML SUSP PO SCH ×3 (09:00→21:16)
[2017-04-02] MEDS: DILTIAZEM HCL 30 MG TAB PO SCH ×4 (09:00→21:17)
[2017-04-02] MEDS: HYDROXYZINE HCL 25 MG TAB PO SCH ×3 (09:00→21:16)
[2017-04-02] MEDS: HEPARIN SOD (PORCINE) 5,000 UNIT/ML VIAL SC SCH ×2 (09:00→21:32)
[2017-04-02] MEDS: FUROSEMIDE 40 MG TAB PO SCH ×2 (09:00→17:00)
[2017-04-02] MEDS: FOLIC ACID/CYANOCOB/PYRIDOXINE TAB PO SCH (09:00)
[2017-04-02] MEDS: CARVEDILOL 12.5 MG TAB PO SCH ×2 (09:00→17:00)
[2017-04-02] MEDS: PHENYTOIN SODIUM EXT REL 100 MG CAP PO SCH ×2 (11:45→21:19)
[2017-04-02 12:50] VITALS: BP 124/79
[2017-04-02] MEDS: PHENAZOPYRIDINE HCL 100 MG TAB PO SCH (17:00)
[2017-04-02 17:31] VITALS: BP 119/77
[2017-04-02] MEDS: BETAMETHASONE/CLOTRIMAZOLE CR 15 GM TUBE TOP SCH (17:35)
[2017-04-02 20:00] VITALS: BP 109/67
[2017-04-02] MEDS: ZOLPIDEM TARTRATE 10 MG TAB PO SCH (21:16)
[2017-04-03] MEDS: DIPHENHYDRAMINE HCL INJ 50 MG/ML VIAL IV SCH ×6 (02:49→22:30)
[2017-04-03] MEDS: CEFTRIAXONE SOD 1 GM VIAL IV SCH (02:50)
[2017-04-03] MEDS: MORPHINE SULFATE 2 MG/ML SYR IV SCH ×6 (02:50→22:30)
[2017-04-03] MEDS: PROMETHAZINE 12.5MG/ NACL 0.9% 12.5 MG/50 ML BAG IV PRN ×3 (02:50→22:30)
[2017-04-03] MEDS ORDERED: HYDROCORTISONE ACETATE 25 MG/SUPP.RECT SUPP RC ONE (03:15)
[2017-04-03 06:22] LABS: BASOPHILS % 0.3 % (0.0-1.0); EOSINOPHILS # (AUTO) 0.4 (0.0-0.4); EOSINOPHILS % 6.6 % (0.0-6.0); HEMATOCRIT 30.7 % (34.2-44.1); HEMOGLOBIN 8.9 g/dL (12.0-16.0); LYMPHOCYTES # (AUTO) 1.4 (1.0-3.2); LYMPHOCYTES % 24.5 % (18.0-39.1); MEAN CORPUSCULAR HEMOGLOBIN 27.1 pg (28-32); MEAN CORPUSCULAR VOLUME 93.6 fL (81-99); MONOCYTES # (AUTO) 0.4 (0.2-0.8); MONOCYTES % 7.1 % (4.4-11.3); NEUTROPHILS # (AUTO) 3.5 (2.1-6.9); NEUTROPHILS % 60.1 % (38.7-80.0); PLATELET COUNT 152 x10e3/uL (140-360); RED BLOOD COUNT 3.28 x10e6/uL (3.6-5.1); RED CELL DISTRIBUTION WIDTH 17.6 % (11.7-14.4)
[2017-04-03 06:39] LABS: ANION GAP 12.3 mmol/L (8-16); CALCIUM 8.3 mg/dL (8.4-10.2); CREATININE, SERUM 3.82 mg/dL (0.57-1.11); POTASSIUM 4.3 mmol/L (3.5-5.1)
[2017-04-03] MEDS: INSULIN REGULAR, HUMAN 100 UNIT/1 ML 3ML VIAL SQ SCH ×4 (07:30→21:00)
[2017-04-03] MEDS: METOCLOPRAMIDE HCL 10 MG/2ML VIAL IV SCH ×4 (07:30→22:30)
[2017-04-03] MEDS: PANTOPRAZOLE SODIUM 40 MG SUSPDR.PKT PO SCH ×2 (07:30→16:30)
[2017-04-03] MEDS: PHENAZOPYRIDINE HCL 100 MG TAB PO SCH ×3 (08:00→17:00)
[2017-04-03 08:17] VITALS: BP 137/91
[2017-04-03] MEDS: CLONAZEPAM 1 MG TAB PO SCH (09:00)
[2017-04-03] MEDS: HYDROCORTISONE ACETATE 25 MG/SUPP.RECT SUPP RC SCH ×2 (09:00→17:00)
[2017-04-03] MEDS: FOLIC ACID/CYANOCOB/PYRIDOXINE TAB PO SCH (09:00)
[2017-04-03] MEDS: SUCRALFATE 1 GM/10 ML SUSP PO SCH ×3 (09:00→22:30)
[2017-04-03] MEDS: METHOCARBAMOL 500 MG TAB PO SCH ×2 (09:00→17:00)
[2017-04-03] MEDS: AMMONIUM LACTATE 12% LOTION 225GM BTL TOP SCH ×2 (09:00→17:00)
[2017-04-03] MEDS: ASCORBIC ACID 500 MG TAB PO SCH ×2 (09:00→17:00)
[2017-04-03] MEDS: HYDROXYZINE HCL 25 MG TAB PO SCH ×3 (09:00→22:30)
[2017-04-03] MEDS: MUPIROCIN 2% OINT 22 GM TUBE TOP SCH (09:00)
[2017-04-03] MEDS: CARVEDILOL 12.5 MG TAB PO SCH ×2 (09:00→17:00)
[2017-04-03] MEDS: DILTIAZEM HCL 30 MG TAB PO SCH ×4 (09:00→22:30)
[2017-04-03] MEDS: HEPARIN SOD (PORCINE) 5,000 UNIT/ML VIAL SC SCH ×2 (09:00→21:00)
[2017-04-03] MEDS: BETAMETHASONE/CLOTRIMAZOLE CR 15 GM TUBE TOP SCH ×2 (09:00→17:00)
[2017-04-03] MEDS: LACTOBACILLUS ACIDOPHILUS CAPSULE PO SCH ×2 (09:00→17:00)
[2017-04-03] MEDS: FUROSEMIDE 40 MG TAB PO SCH ×2 (09:00→17:00)
--- NOTE | 2017-04-03 09:37 | Progress Note ---
DATE: April 03, 2017 SUBJECTIVE: Patient was seen at bedside. Doing better. Seen accompanied by mother. OBJECTIVE VITAL SIGNS: Afebrile. Vital signs stable. EXTREMITIES: Ulceration to the left heel healing. Decreased eczema. Relates some burning sensation to the plantar and dorsal aspect of both lower extremities. Mild Tinel's sign with palpable tibial nerve. ASSESSMENT 1. Neuralgia. 2. Dermatitis with a grade 1 ulceration healing to the medial aspect of the left heel, less than 1.5 cm in diameter. PLAN: Will continue Bactroban ointment. Continue 12% lotion. If she continues to have burning sensation, Voltaren will be started possibly tomorrow. Patient started on range of motion exercises. Keep her foot extended with respect to the leg whenever she can. Job#: [id number] [place]
[2017-04-03] MEDS ORDERED: DIPHENHYDRAMINE HCL INJ 50 MG/ML VIAL IV ONE (11:15)
--- NOTE | 2017-04-03 11:32 | Consultation ---
DATE OF CONSULTATION: April 02, 2017 CARDIOLOGY CONSULTATION REASON FOR CONSULTATION: Recent ICD. HPI: This is a 31-year-old female with multiple medical problems that presented with nausea and vomiting. She had an EGD and was found to have gastritis and distal esophagitis. She also has a history of PEG tube placement and recent ICD placement. She was at [facility] and had a cardiac catheterization that showed nonischemic cardiomyopathy with low EF of 30% to 40%. She had an ICD [employer] implanted. She denies any chest pain, any palpitation, any dizziness, or diaphoresis. Her BNP is 1426. There is no recent EKG in the chart. PAST MEDICAL HISTORY: Diabetes, neurogenic bladder, gastroparesis, peripheral neuropathy, diabetic neuropathy, systolic CHF, end-stage renal disease, on dialysis, hypertension, anemia of chronic disease, cardiomyopathy, and mitral valve prolapse. PAST SURGICAL HISTORY: ICD placement on March 19, 2017, PEG tube placement on March 04, 2017, and Port-A-Cath. FAMILY HISTORY: Noncontributory. SOCIAL HISTORY: No smoking. No drinking. She lives at home with her mother. MEDICATIONS: See med list. ALLERGIES: SEE CHART. SHE HAS MULTIPLE ALLERGIES. REVIEW OF SYSTEMS: Negative except those mentioned above. PHYSICAL EXAMINATION VITALS: Temperature 97, heart rate 106, blood pressure 109/67, respirations 16, blood pressure 109/67, oxygen saturation 98% on 2 L nasal cannula. GENERAL: She is alert, awake and oriented times 3, but very lethargic. HEENT: Mucous membranes dry. NECK: Supple. LUNGS: Bilateral decreased breath sounds. CARDIOVASCULAR: S1 and S2 present. ABDOMEN: Soft. NEUROLOGICAL: Intact. She is able to move all extremities. EXTREMITIES: Bilateral lower extremities positive with 2+ edema. LABS: Sodium 139, potassium 4.3, chloride 106, CO2 25, BUN 32, creatinine 3.82, glucose 179. White blood cells 5.8, hemoglobin 8.9, hematocrit 30.7, and platelets 152,000. IMPRESSION 1. Coronary artery disease with implantable cardioverter defibrillator. 2. Cardiomyopathy. 3. History of congestive heart failure. 4. End-stage renal disease, on dialysis. 5. Hypertension. 6. Nausea and vomiting with percutaneous endoscopic gastrostomy tube. 7. Anemia of chronic disease. ASSESSMENT AND PLAN: Will get an echo to reassess the LV and valve function. Will get a 12-lead EKG. She is worried about the ICD and the placement. Will go ahead and do some interrogation to make sure it is functioning okay. She was told also she needed to have surgery from [facility]. Will make a decision based on the echocardiogram. Further cardiac workup pending clinical course. Thank you for this consultation. DICTATED BY ROMEL DUBOSE NP Job#: [id number] [place]
[2017-04-03] MEDS: PHENYTOIN SODIUM EXT REL 100 MG CAP PO SCH ×2 (11:45→23:01)
[2017-04-03] MEDS: ALBUTEROL SULF 0.083% NEB SOLN 3 ML NEB INH SCH ×3 (11:45→19:14)
[2017-04-03] MEDS: GUAIFENESIN 600 MG TAB PO SCH ×2 (12:00→18:00)
[2017-04-03 12:02] VITALS: BP 138/99
[2017-04-03] MEDS: EPOETIN ALFA 10000 UNIT/ML VIAL SC SCH (12:30)
[2017-04-03] MEDS: LORAZEPAM INJ 2 MG/ML VIAL IV SCH ×2 (14:00→22:30)
[2017-04-03 16:00] VITALS: BP 101/62
[2017-04-03 20:38] VITALS: BP 122/73
[2017-04-03] MEDS: ZOLPIDEM TARTRATE 10 MG TAB PO SCH (22:30)
[2017-04-04] VITALS: BP 128/82
[2017-04-04] MEDS: GUAIFENESIN 600 MG TAB PO SCH ×4 (00:34→16:53)
--- NOTE | 2017-04-04 01:53 | Consultation ---
DATE OF CONSULTATION: April 03, 2017 Patient is a 31-year-old with an extensive past medical history. She also mentioned during her hospital stay that she has a history of fibroid uterus for which she complains of pelvic pain occasionally. She was diagnosed at [facility], and then asked to see a sole filler. PAST MEDICAL HISTORY: History of renal failure, hypertension, diabetes, gastroparesis, congestive heart failure. PAST SURGICAL HISTORY: PEG tube insertion. SOCIAL: Denies smoking, alcohol or drug abuse. PHYSICAL EXAMINATION VITAL SIGNS: Stable. CHEST: Clear to auscultation. CARDIOVASCULAR: Regular rate and rhythm. ABDOMEN: Soft and nontender. ASSESSMENT AND PLAN: Patient has end-stage renal disease with hemodialysis, severe anemia, urinary tract infection, history of fibroid uterus. I discussed the situation with her, and mentioned to her that after her medical problems have been straightened up and she is discharged from the hospital, will be happy to see her as an outpatient for her fibroids, or she can also be seen at [facility] or [facility] [place] or [facility]. The patient understands and all her questions were answered. Job#: [id number] ULISSES
[2017-04-04] MEDS: MORPHINE SULFATE 2 MG/ML SYR IV SCH ×7 (02:30→22:58)
[2017-04-04] MEDS: DIPHENHYDRAMINE HCL INJ 50 MG/ML VIAL IV SCH ×6 (02:30→22:20)
[2017-04-04] MEDS: PROMETHAZINE 12.5MG/ NACL 0.9% 12.5 MG/50 ML BAG IV PRN (02:30)
[2017-04-04] MEDS: CEFTRIAXONE SOD 1 GM VIAL IV SCH (02:45)
[2017-04-04 04:00] VITALS: BP 132/94
[2017-04-04 06:07] LABS: BASOPHILS % 0.2 % (0.0-1.0); EOSINOPHILS # (AUTO) 0.4 (0.0-0.4); HEMOGLOBIN 8.2 g/dL (12.0-16.0); LYMPHOCYTES # (AUTO) 1.6 (1.0-3.2); LYMPHOCYTES % 26.3 % (18.0-39.1); MEAN CORPUSCULAR HEMOGLOBIN 27.4 pg (28-32); MEAN CORPUSCULAR HGB CONC 29.3 g/dL (31-35); MEAN CORPUSCULAR VOLUME 93.6 fL (81-99); MONOCYTES # (AUTO) 0.4 (0.2-0.8); MONOCYTES % 7.3 % (4.4-11.3); NEUTROPHILS # (AUTO) 3.6 (2.1-6.9); NEUTROPHILS % 59.7 % (38.7-80.0); PLATELET COUNT 133 x10e3/uL (140-360); RED BLOOD COUNT 2.99 x10e6/uL (3.6-5.1); RED CELL DISTRIBUTION WIDTH 17.8 % (11.7-14.4)
[2017-04-04] MEDS: LORAZEPAM INJ 2 MG/ML VIAL IV SCH ×3 (06:30→22:20)
[2017-04-04 06:39] LABS: ANION GAP 10.9 mmol/L (8-16); CALCIUM 8.3 mg/dL (8.4-10.2); CREATININE, SERUM 2.97 mg/dL (0.57-1.11); POTASSIUM 3.9 mmol/L (3.5-5.1)
[2017-04-04] MEDS: ALBUTEROL SULF 0.083% NEB SOLN 3 ML NEB INH SCH (07:15)
[2017-04-04] MEDS: METOCLOPRAMIDE HCL 10 MG/2ML VIAL IV SCH ×4 (07:30→22:37)
[2017-04-04] MEDS: PANTOPRAZOLE SODIUM 40 MG SUSPDR.PKT PO SCH ×2 (07:30→16:30)
[2017-04-04] MEDS: INSULIN REGULAR, HUMAN 100 UNIT/1 ML 3ML VIAL SQ SCH ×3 (07:30→21:00)
[2017-04-04 08:00] VITALS: BP 127/87
[2017-04-04] MEDS: PHENAZOPYRIDINE HCL 100 MG TAB PO SCH ×3 (08:00→16:51)
--- NOTE | 2017-04-04 08:57 | Progress Note ---
DATE: April 04, 2017 SUBJECTIVE: The patient was seen at the bedside accompanied by mother. Doing better. Still having some pain and burning to the plantar forefoot aspect of both lower extremities. Decreased pain to the left heel. OBJECTIVE VITALS: Afebrile. Vital signs stable. EXTREMITIES: Ulceration to the left heel healing. Decreased pain and burning to the mid-arch region of both feet. Decreased eczema with pedal pulses are palpable. ASSESSMENT 1. Grade 1 ulcer measuring less than 1.5 cm on the lateral medial aspect of the left heel. 2. Neuralgia. 3. Neuropathy With eczema. PLAN: Continue local wound care. Continue AmLactin cream. Continue offloading. Will continue to follow. Job#: [id number] ULISSES
[2017-04-04] MEDS: LACTOBACILLUS ACIDOPHILUS CAPSULE PO SCH ×2 (09:00→16:51)
[2017-04-04] MEDS: ASCORBIC ACID 500 MG TAB PO SCH ×2 (09:00→16:52)
[2017-04-04] MEDS: AMMONIUM LACTATE 12% LOTION 225GM BTL TOP SCH ×2 (09:00→16:52)
[2017-04-04] MEDS: CARVEDILOL 12.5 MG TAB PO SCH ×2 (09:00→16:50)
[2017-04-04] MEDS: FUROSEMIDE 40 MG TAB PO SCH ×2 (09:00→16:51)
[2017-04-04] MEDS: HEPARIN SOD (PORCINE) 5,000 UNIT/ML VIAL SC SCH ×2 (09:00→22:38)
[2017-04-04] MEDS: HYDROXYZINE HCL 25 MG TAB PO SCH ×3 (09:00→22:37)
[2017-04-04] MEDS: METHOCARBAMOL 500 MG TAB PO SCH ×2 (09:00→16:51)
[2017-04-04] MEDS: DILTIAZEM HCL 30 MG TAB PO SCH ×4 (09:00→22:37)
[2017-04-04] MEDS: MUPIROCIN 2% OINT 22 GM TUBE TOP SCH (09:00)
[2017-04-04] MEDS: BETAMETHASONE/CLOTRIMAZOLE CR 15 GM TUBE TOP SCH ×2 (09:00→16:52)
[2017-04-04] MEDS: HYDROCORTISONE ACETATE 25 MG/SUPP.RECT SUPP RC SCH ×2 (09:00→17:00)
[2017-04-04] MEDS: SUCRALFATE 1 GM/10 ML SUSP PO SCH ×3 (09:00→22:37)
[2017-04-04] MEDS: FOLIC ACID/CYANOCOB/PYRIDOXINE TAB PO SCH (09:00)
[2017-04-04] MEDS: PHENYTOIN SODIUM EXT REL 100 MG CAP PO SCH (11:45)
[2017-04-04 12:00] VITALS: BP 124/76
[2017-04-04 16:00] VITALS: BP 123/84
[2017-04-04] MEDS ORDERED: ACETYLCYSTEINE 20% INHAL SOLN 30 ML VIAL INH SCH (18:00)
[2017-04-04] MEDS: ALBUTEROL/IPRATROPIUM 3 ML NEB NEB SCH (19:35)
[2017-04-04] MEDS: ACETYLCYSTEINE 200 MG/ML 4ML VIAL INH SCH (19:35)
[2017-04-04 20:00] VITALS: BP 124/84
--- NOTE | 2017-04-04 20:08 | Diagnostic Imaging Report ---
History: Chronic left weakness for 6 months Comparison studies: CT brain from 02/13/2017. Technique: Axial images were obtained from the skull base to the vertex. Coronal and sagittal reconstructions obtained from the axial data. Findings: Scalp/skull: No abnormalities. No fractures, blastic or lytic lesions. Extra-axial spaces: No masses. No fluid collections. Brain sulci: Appropriate for age. Ventricles: Cavum velum interpositum. Normal in size and configuration. No hydrocephalus. Parenchyma: No abnormal densities. No masses, hemorrhage, acute or chronic cortical vascular insults. Sellar/suprasellar region: No abnormalities Craniocervical junction: Patent foramen magnum. No Chiari one malformation. IMPRESSION: No intracranial abnormality. A preliminary report was given by Neuroradiology fellow Dr. Estrada at 6:45 PM on 04/04/2017. I have reviewed the study and agree with the findings in the preliminary report. Signed by: Dr. Margaret Faust M.D. on 04/04/2017 8:04 PM
[2017-04-04] MEDS: ZOLPIDEM TARTRATE 10 MG TAB PO SCH (22:37)
[2017-04-05] VITALS: BP 120/85
[2017-04-05] MEDS: PHENYTOIN SODIUM EXT REL 100 MG CAP PO SCH ×3 (00:08→23:45)
[2017-04-05] MEDS: GUAIFENESIN 600 MG TAB PO SCH ×4 (00:08→17:47)
[2017-04-05] MEDS: ALBUTEROL/IPRATROPIUM 3 ML NEB NEB SCH ×3 (01:25→19:40)
[2017-04-05] MEDS: ACETYLCYSTEINE 200 MG/ML 4ML VIAL INH SCH ×3 (01:25→19:40)
[2017-04-05] MEDS: DIPHENHYDRAMINE HCL INJ 50 MG/ML VIAL IV SCH ×7 (02:17→22:30)
[2017-04-05] MEDS: CEFTRIAXONE SOD 1 GM VIAL IV SCH (02:17)
[2017-04-05] MEDS: MORPHINE SULFATE 2 MG/ML SYR IV SCH ×5 (02:30→18:40)
[2017-04-05 04:00] VITALS: BP 126/89
[2017-04-05] MEDS: LORAZEPAM INJ 2 MG/ML VIAL IV SCH ×3 (06:04→22:00)
--- NOTE | 2017-04-05 06:20 | Diagnostic Imaging Report ---
EXAM: CHEST SINGLE (PORTABLE), AP 1 view DATE: 04/05/2017 5:00 AM Time stamp on exam: 0528 hours INDICATION: Congestion COMPARISON: AP view of the chest April 05, 2017 FINDINGS: LINES/TUBES: Stable left chest wall presternal single lead ICD. Stable position of right internal jugular vein tunneled hemodialysis catheter and left subclavian chest port. LUNGS: Pulmonary edema. PLEURA: No effusions or pneumothorax. HEART AND MEDIASTINUM: Stable cardiac enlargement. BONES AND SOFT TISSUES: No acute findings. IMPRESSION: Interval development of pulmonary edema. Signed by: Dr. Emili Godinez M.D. on 04/05/2017 6:16 AM
[2017-04-05 08:00] VITALS: BP 137/102
[2017-04-05] MEDS: INSULIN REGULAR, HUMAN 100 UNIT/1 ML 3ML VIAL SQ SCH ×4 (08:30→20:55)
[2017-04-05] MEDS: METOCLOPRAMIDE HCL 10 MG/2ML VIAL IV SCH ×4 (08:37→20:53)
[2017-04-05] MEDS: PHENAZOPYRIDINE HCL 100 MG TAB PO SCH ×2 (08:37→13:55)
[2017-04-05] MEDS: PANTOPRAZOLE SODIUM 40 MG SUSPDR.PKT PO SCH ×2 (08:37→17:37)
[2017-04-05] MEDS: METHOCARBAMOL 500 MG TAB PO SCH ×2 (08:38→17:37)
[2017-04-05] MEDS: FOLIC ACID/CYANOCOB/PYRIDOXINE TAB PO SCH (08:38)
[2017-04-05] MEDS: SUCRALFATE 1 GM/10 ML SUSP PO SCH ×3 (08:38→20:53)
[2017-04-05] MEDS: HYDROXYZINE HCL 25 MG TAB PO SCH (08:38)
[2017-04-05] MEDS: LORATADINE/PSEUDOEPHEDRINE 24 HR SR TAB PO SCH (08:38)
[2017-04-05] MEDS: DILTIAZEM HCL 30 MG TAB PO SCH ×4 (08:38→20:54)
[2017-04-05] MEDS: CARVEDILOL 12.5 MG TAB PO SCH ×2 (08:38→17:37)
[2017-04-05] MEDS: ASCORBIC ACID 500 MG TAB PO SCH ×2 (08:38→17:37)
[2017-04-05] MEDS: LACTOBACILLUS ACIDOPHILUS CAPSULE PO SCH ×2 (08:38→17:37)
[2017-04-05] MEDS: HYDROCORTISONE ACETATE 25 MG/SUPP.RECT SUPP RC SCH ×2 (08:38→16:44)
--- NOTE | 2017-04-05 08:44 | Progress Note ---
DATE: April 05, 2017 SUBJECTIVE: Patient was seen at bedside accompanied by mother. Doing much better. Decreased pain and burning to both lower extremities. Ulceration getting better to the left heel. OBJECTIVE VITAL SIGNS: Afebrile, pulse rate 101, respirations 18, blood pressure 126/89, O2 saturation 96%. EXTREMITIES: Ulceration healing slowly to the left heel. Less than 1.5 cm in diameter. Periwound cellulitis present. Negative foul smell. Eczema to both lower extremities resolving. White blood cell count of 6.04, hemoglobin 8.2 and platelet count at 133,000. ASSESSMENT 1. Dermatophytosis. 2. Grade 1 ulceration. 3. Eczema. 4. Neuropathy with neuralgia. PLAN: Continue local wound care. Continue AmLactin 12% lotion. Continue offloading. Continue Voltaren on a p.r.n. basis to both lower extremities. Will continue to follow. Job#: [id number] ULISSES
[2017-04-05] MEDS: FUROSEMIDE 40 MG TAB PO SCH ×2 (09:00→17:00)
[2017-04-05] MEDS: HEPARIN SOD (PORCINE) 5,000 UNIT/ML VIAL SC SCH ×2 (09:00→20:54)
[2017-04-05] MEDS: PROMETHAZINE 12.5MG/ NACL 0.9% 12.5 MG/50 ML BAG IV PRN ×4 (10:30→22:30)
[2017-04-05] MEDS ORDERED: DIPHENHYDRAMINE HCL INJ 50 MG/ML VIAL IV PRN ×2 (11:15→19:00)
[2017-04-05] MEDS ORDERED: FUROSEMIDE INJ 10 MG/ML 4 ML VIAL IV ONE (11:30)
[2017-04-05] MEDS ORDERED: MINERAL OIL 132 ML BTL PR PRN (11:30)
[2017-04-05 12:00] VITALS: BP 118/74
[2017-04-05] MEDS ORDERED: BISACODYL 5 MG TAB EC PO ONE (12:40)
[2017-04-05 16:00] VITALS: BP 119/71
[2017-04-05] MEDS ORDERED: TEMAZEPAM 15 MG CAP PO PRN (16:45)
[2017-04-05] MEDS ORDERED: HYDROXYZINE HCL 25 MG TAB PO PRN (17:00)
[2017-04-05] MEDS: POLYETHYLENE GLYCOL 3350 17 GM PACK PO SCH (17:00)
[2017-04-05] MEDS: MUPIROCIN 2% OINT 22 GM TUBE TOP SCH (17:07)
[2017-04-05] MEDS: BETAMETHASONE/CLOTRIMAZOLE CR 15 GM TUBE TOP SCH ×2 (17:07→17:37)
[2017-04-05] MEDS: AMMONIUM LACTATE 12% LOTION 225GM BTL TOP SCH ×2 (17:07→17:37)
[2017-04-05] MEDS: DOCUSATE SODIUM 100 MG CAP PO SCH (17:37)
[2017-04-05] MEDS: EPOETIN ALFA 10000 UNIT/ML VIAL SC SCH (17:38)
[2017-04-05] MEDS ORDERED: FUROSEMIDE INJ 10 MG/ML 4 ML VIAL ONE (17:45)
[2017-04-05] MEDS ORDERED: LORAZEPAM INJ 2 MG/ML VIAL IV SCH (18:00)
[2017-04-05] MEDS: MIRTAZAPINE 15 MG TAB PO SCH (20:54)
[2017-04-05] MEDS: MORPHINE SULFATE 5 MG/ML VIAL IV SCH (22:30)
[2017-04-05 23:04] VITALS: BP 154/70
[2017-04-06] VITALS: BP 119/77
[2017-04-06] MEDS: MORPHINE SULFATE 5 MG/ML VIAL IV SCH ×8 (00:04→23:08)
[2017-04-06] MEDS ORDERED: ZOLPIDEM TARTRATE 5 MG TAB PO PRN (00:15)
[2017-04-06] MEDS ORDERED: ZOLPIDEM TARTRATE 10 MG TAB ONE (00:23)
[2017-04-06] MEDS: ACETYLCYSTEINE 200 MG/ML 4ML VIAL INH SCH ×3 (01:07→13:00)
[2017-04-06] MEDS: ALBUTEROL/IPRATROPIUM 3 ML NEB NEB SCH ×3 (01:07→13:40)
[2017-04-06] MEDS: DIPHENHYDRAMINE HCL INJ 50 MG/ML VIAL IV SCH ×7 (02:10→23:08)
[2017-04-06] MEDS: CEFTRIAXONE SOD 1 GM VIAL IV SCH (03:00)
[2017-04-06] MEDS ORDERED: FUROSEMIDE INJ 10 MG/ML 4 ML VIAL IV ONE (04:00)
[2017-04-06] MEDS: GUAIFENESIN 600 MG TAB PO SCH ×4 (06:00→18:11)
[2017-04-06] MEDS: LORAZEPAM INJ 2 MG/ML VIAL IV SCH ×4 (06:00→18:00)
--- NOTE | 2017-04-06 06:39 | Diagnostic Imaging Report ---
EXAM: CHEST SINGLE (PORTABLE), AP 1 view DATE: 04/06/2017 6:00 AM Time stamp on exam: 0259 hours INDICATION: Pulmonary edema COMPARISON: AP view of the chest April 05, 2017 FINDINGS: LINES/TUBES: Stable left chest wall 3 sternal single lead ICD. Stable position of right internal jugular vein tunneled hemodialysis catheter and left subclavian chest port LUNGS: Stable pulmonary edema PLEURA: No effusions or pneumothorax. HEART AND MEDIASTINUM: Stable cardiac enlargement BONES AND SOFT TISSUES: No acute findings. Surgical clips right upper quadrant of the abdomen. IMPRESSION: Stable pulmonary edema Signed by: Dr. Emili Godinez M.D. on 04/06/2017 6:36 AM
[2017-04-06 07:15] LABS: BASOPHILS % 0.3 % (0.0-1.0); EOSINOPHILS # (AUTO) 0.3 (0.0-0.4); EOSINOPHILS % 4.3 % (0.0-6.0); HEMATOCRIT 26.8 % (34.2-44.1); LYMPHOCYTES # (AUTO) 0.9 (1.0-3.2); LYMPHOCYTES % 15.5 % (18.0-39.1); MEAN CORPUSCULAR HEMOGLOBIN 27.4 pg (28-32); MEAN CORPUSCULAR HGB CONC 29.5 g/dL (31-35); MEAN CORPUSCULAR VOLUME 93.1 fL (81-99); MONOCYTES # (AUTO) 0.3 (0.2-0.8); MONOCYTES % 4.5 % (4.4-11.3); NEUTROPHILS # (AUTO) 4.5 (2.1-6.9); NEUTROPHILS % 75.2 % (38.7-80.0); PLATELET COUNT 137 x10e3/uL (140-360); RED BLOOD COUNT 2.88 x10e6/uL (3.6-5.1); RED CELL DISTRIBUTION WIDTH 17.4 % (11.7-14.4)
[2017-04-06 07:19] LABS: HEMOGLOBIN 7.9 g/dL (12.0-16.0)
[2017-04-06] MEDS: INSULIN REGULAR, HUMAN 100 UNIT/1 ML 3ML VIAL SQ SCH ×4 (07:30→23:08)
[2017-04-06 07:57] LABS: ANION GAP 13.1 mmol/L (8-16); CALCIUM 8.6 mg/dL (8.4-10.2); CREATININE, SERUM 3.19 mg/dL (0.57-1.11); POTASSIUM 4.1 mmol/L (3.5-5.1)
[2017-04-06 08:00] VITALS: BP 142/97
[2017-04-06] MEDS: POLYETHYLENE GLYCOL 3350 17 GM PACK PO SCH ×2 (09:00→17:00)
[2017-04-06] MEDS: BETAMETHASONE/CLOTRIMAZOLE CR 15 GM TUBE TOP SCH ×2 (09:00→18:10)
[2017-04-06] MEDS: HYDROCORTISONE ACETATE 25 MG/SUPP.RECT SUPP RC SCH ×2 (09:00→16:59)
[2017-04-06] MEDS: AMMONIUM LACTATE 12% LOTION 225GM BTL TOP SCH ×2 (09:00→18:10)
[2017-04-06] MEDS: MUPIROCIN 2% OINT 22 GM TUBE TOP SCH (09:00)
[2017-04-06] MEDS: HEPARIN SOD (PORCINE) 5,000 UNIT/ML VIAL SC SCH ×2 (10:00→23:06)
[2017-04-06] MEDS: FOLIC ACID/CYANOCOB/PYRIDOXINE TAB PO SCH (10:30)
[2017-04-06] MEDS: DILTIAZEM HCL 30 MG TAB PO SCH ×4 (10:30→22:57)
[2017-04-06] MEDS: LORATADINE/PSEUDOEPHEDRINE 24 HR SR TAB PO SCH (10:30)
[2017-04-06] MEDS: PANTOPRAZOLE SODIUM 40 MG SUSPDR.PKT PO SCH ×2 (10:30→18:09)
[2017-04-06] MEDS: DOCUSATE SODIUM 100 MG CAP PO SCH ×2 (10:30→18:10)
[2017-04-06] MEDS: CARVEDILOL 12.5 MG TAB PO SCH ×2 (10:30→18:10)
[2017-04-06] MEDS: PROMETHAZINE 12.5MG/ NACL 0.9% 12.5 MG/50 ML BAG IV PRN ×4 (10:30→23:08)
[2017-04-06] MEDS: METOCLOPRAMIDE HCL 10 MG/2ML VIAL IV SCH ×4 (10:30→22:46)
[2017-04-06] MEDS: FUROSEMIDE 40 MG TAB PO SCH ×2 (10:30→18:10)
[2017-04-06] MEDS: LACTOBACILLUS ACIDOPHILUS CAPSULE PO SCH ×2 (10:30→18:10)
[2017-04-06] MEDS: SUCRALFATE 1 GM/10 ML SUSP PO SCH ×3 (10:30→22:57)
[2017-04-06] MEDS: METHOCARBAMOL 500 MG TAB PO SCH ×2 (10:30→18:10)
[2017-04-06] MEDS: ASCORBIC ACID 500 MG TAB PO SCH ×2 (10:30→18:10)
--- NOTE | 2017-04-06 10:46 | Diagnostic Imaging Report ---
EXAM: ABDOMINAL ULTRASOUND Date: 04/05/2017 12:00 AM Indication: Comparison: None Technique: Sonographic evaluation of the abdomen. Color doppler was utilized to supplement evaluation. FINDINGS: Exam limited by overlying bowel gas. LIVER: No focal lesion is identified. The liver measures 17.1 cm in the right midclavicular line. Echotexture is normal. BILIARY: Gallbladder is surgically absent. The common bile duct measures 0.5 cm. PANCREAS: Largely secured by bowel gas. KIDNEYS: Right: Measures 8.9 cm in length. Left: Measures 7 cm in length. Other: No hydronephrosis or solid mass lesion identified. Left kidney limited secondary to bowel gas. SPLEEN: No splenomegaly. PERITONEUM: No free fluid. VASCULATURE: Aorta: Obscured by bowel gas. Interior vena cava: Visualized portions appear unremarkable. Portal Vein: Nondilated with hepatopedal flow. IMPRESSION: Within limitations of exam, no acute findings. Cholecystectomy changes. Signed by: Dr. Yunior Hudson MD on 04/06/2017 10:42 AM
[2017-04-06] MEDS ORDERED: SODIUM CHLORIDE 0.9% 250ML 250 ML IV ONE (11:30)
[2017-04-06 12:00] VITALS: BP 129/84
[2017-04-06] MEDS ORDERED: PHENYTOIN SODIUM EXT REL 100 MG CAP PO ONE (12:30)
[2017-04-06] MEDS: PHENYTOIN SODIUM EXT REL 100 MG CAP PO SCH ×2 (13:10→22:58)
[2017-04-06] MEDS: LORAZEPAM INJ 2 MG/ML VIAL IV PRN (14:30)
--- NOTE | 2017-04-06 14:33 | Progress Note ---
DATE: April 06, 2017 ORTHOPEDIC PROGRESS NOTE SUBJECTIVE: Patient is seen at bedside. Having some nausea. Denies any history of fever, chills, nausea or vomiting. OBJECTIVE VITAL SIGNS: Afebrile. Pulse rate 116, respiration 18, blood pressure 142/97, O2 saturation 98%. Ulceration to the left lower extremity healing slowly. Decreased eczema. Decreased edema. Decreased cellulitis to both lower extremities. ASSESSMENT: 1. Diabetic neuropathy. 2. Grade 1 ulcer with eczema and dermatitis. PLAN: Will continue current medications. Continue offloading. Patient may be discharged today. Instructed if she does, she is to follow up in the office within several weeks. Job#: [id number] EV
[2017-04-06 16:00] VITALS: BP 134/91
[2017-04-06 20:00] VITALS: BP 119/91
[2017-04-06] MEDS: DIPHENHYDRAMINE HCL INJ 50 MG/ML VIAL IV PRN (20:20)
[2017-04-06] MEDS: MIRTAZAPINE 15 MG TAB PO SCH (23:05)
[2017-04-07] VITALS: BP 117/83
[2017-04-07] MEDS: LORAZEPAM INJ 2 MG/ML VIAL IV SCH ×4 (00:50→19:15)
[2017-04-07] MEDS: GUAIFENESIN 600 MG TAB PO SCH ×4 (00:50→17:30)
[2017-04-07] MEDS: DIPHENHYDRAMINE HCL INJ 50 MG/ML VIAL IV SCH ×6 (02:58→23:29)
[2017-04-07] MEDS: MORPHINE SULFATE 5 MG/ML VIAL IV SCH ×6 (02:58→23:29)
[2017-04-07] MEDS: PROMETHAZINE 12.5MG/ NACL 0.9% 12.5 MG/50 ML BAG IV PRN ×5 (02:58→19:15)
[2017-04-07] MEDS: CEFTRIAXONE SOD 1 GM VIAL IV SCH (03:00)
[2017-04-07 08:00] VITALS: BP 124/85
[2017-04-07] MEDS: ALBUTEROL/IPRATROPIUM 3 ML NEB NEB SCH ×3 (08:25→19:00)
[2017-04-07] MEDS: ACETYLCYSTEINE 200 MG/ML 4ML VIAL INH SCH ×3 (08:25→19:00)
[2017-04-07] MEDS: HYDROCORTISONE ACETATE 25 MG/SUPP.RECT SUPP RC SCH ×2 (09:00→17:00)
[2017-04-07] MEDS: POLYETHYLENE GLYCOL 3350 17 GM PACK PO SCH ×2 (09:00→17:00)
[2017-04-07] MEDS: MUPIROCIN 2% OINT 22 GM TUBE TOP SCH (09:00)
[2017-04-07] MEDS: BETAMETHASONE/CLOTRIMAZOLE CR 15 GM TUBE TOP SCH ×2 (09:00→17:00)
[2017-04-07] MEDS: AMMONIUM LACTATE 12% LOTION 225GM BTL TOP SCH ×2 (09:00→17:00)
[2017-04-07] MEDS: FOLIC ACID/CYANOCOB/PYRIDOXINE TAB PO SCH (09:30)
[2017-04-07] MEDS: DILTIAZEM HCL 30 MG TAB PO SCH ×4 (09:30→22:40)
[2017-04-07] MEDS: LACTOBACILLUS ACIDOPHILUS CAPSULE PO SCH (09:30)
[2017-04-07] MEDS: SUCRALFATE 1 GM/10 ML SUSP PO SCH ×3 (09:30→22:39)
[2017-04-07] MEDS: DOCUSATE SODIUM 100 MG CAP PO SCH ×2 (09:30→18:09)
[2017-04-07] MEDS: METHOCARBAMOL 500 MG TAB PO SCH ×2 (09:30→18:09)
[2017-04-07] MEDS: HEPARIN SOD (PORCINE) 5,000 UNIT/ML VIAL SC SCH ×2 (09:30→22:42)
[2017-04-07] MEDS: FUROSEMIDE 40 MG TAB PO SCH ×2 (09:30→19:20)
[2017-04-07] MEDS: CARVEDILOL 12.5 MG TAB PO SCH ×2 (09:30→17:00)
[2017-04-07] MEDS: METOCLOPRAMIDE HCL 10 MG/2ML VIAL IV SCH ×4 (09:30→22:39)
[2017-04-07] MEDS: ASCORBIC ACID 500 MG TAB PO SCH ×2 (09:30→18:09)
[2017-04-07] MEDS: PANTOPRAZOLE SODIUM 40 MG SUSPDR.PKT PO SCH ×2 (09:30→18:09)
[2017-04-07] MEDS: PHENYTOIN SODIUM EXT REL 100 MG CAP PO SCH ×2 (11:15→22:34)
[2017-04-07] MEDS ORDERED: DIPHENHYDRAMINE HCL INJ 50 MG/ML VIAL IV SCH ×2 (11:15→14:00)
[2017-04-07 12:00] VITALS: BP 124/87
[2017-04-07] MEDS ORDERED: DIGOXIN 0.125 MG TAB PO ONE (12:00)
[2017-04-07] MEDS: INSULIN REGULAR, HUMAN 100 UNIT/1 ML 3ML VIAL SQ SCH ×3 (12:00→21:00)
[2017-04-07] MEDS: LORAZEPAM INJ 2 MG/ML VIAL IV PRN (13:15)
--- NOTE | 2017-04-07 13:28 | Consultation ---
DATE OF CONSULTATION: April 05, 2017 PSYCHIATRIC CONSULTATION REASON FOR CONSULTATION: To evaluate patient's mood. HISTORY OF PRESENTING ILLNESS: The patient is a 31-year-old female admitted to the hospital for intractable vomiting, UTI and end-stage renal disease. Psychiatric consultation is called to evaluate patient's mood. As per the medical record, patient had history of diabetes, end-stage renal disease, hypertension, seizure. Upon evaluation today, patient is found to be lying in the bed with her mother in the room. Patient states that she is feeling depressed and anxious due to her medical issues. She reports poor sleep, unable to sleep even with the Ambien scheduled 10 mg at night. She denies feeling hopeless or helpless. She denies any hallucinations. She denies any suicidal ideation. She does not elicit paranoid or delusional thinking. PAST PSYCHIATRIC HISTORY: Patient has history of depression, anxiety. She has never attempted suicide in the past. She does not drink alcohol or use any drugs. FAMILY HISTORY: Patient states she has aunt with some depression. SOCIAL HISTORY: Patient lives with her mother. MENTAL STATUS EXAMINATION: The patient is a young female. She is alert, awake and oriented to situation. Her mood is depressed and anxious. She denies any suicidal or homicidal ideation. Thought process is concrete. Affect is congruent with mood. Insight and judgment are fair. She does not elicit paranoid or delusional thinking. Memory grossly intact. CURRENT MEDICATION 1. Ambien 10 mg p.o. nightly. 2. Dexamethasone. 3. Ammonium lactate. 4. Mupirocin. 5. Epoetin. 6. Insulin. 7. Hydrocortisone. 8. Furosemide. 9. Cardizem. 10. Ativan 2 mg IV q.8 schedule. 11. Morphine schedule. 12. Guaifenesin. 13. Pyridium. 14. Phenytoin. 15. Reglan. 16. Loratadine. 17. Ascorbic acid. 18. Folic acid. 19. Sucralfate. 20. Robaxin. 21. Lactobacillus. 22. Hydroxyzine. 23. Carvedilol. 24. Pantoprazole. 25. Acetylcysteine. 26. Albuterol/ipratropium. CURRENT LAB: WBC is 6.04, RBC is 2.99, hemoglobin 8.2, hematocrit 28, platelets 133. Sodium 140, potassium 3.9, chloride 104, CO2 29, BUN 30, creatinine 2.97. AST 19, ALT 20. ASSESSMENT: Major depressive disorder, recurrent, moderate; generalized anxiety disorder. PLAN 1. Discontinue Ambien. 2. Add temazepam 15 mg p.o. nightly p.r.n., hold for sedation. 3. Add Remeron 15 mg p.o. nightly. 4. Reduce Ativan from 2 mg IV q.8 schedule to 1 mg IV q.6 h. schedule. 5. Add Ativan 0.5 mg IV q.8 h. p.r.n. 6. Change Atarax from 25 mg p.o. 3 times a day schedule to p.r.n. 7. Phenytoin as per medical for seizures. 8. Supportive therapy. Thank you for this consultation. Dictated by: CHOLO Shields Job#: [id number] EV
[2017-04-07] MEDS ORDERED: FUROSEMIDE INJ 10 MG/ML 4 ML VIAL IV ONE (13:30)
[2017-04-07 16:00] VITALS: BP 100/65
[2017-04-07 16:03] LABS: BASOPHILS % 0.3 % (0.0-1.0); EOSINOPHILS # (AUTO) 0.3 (0.0-0.4); EOSINOPHILS % 4.5 % (0.0-6.0); HEMATOCRIT 30.2 % (34.2-44.1); HEMOGLOBIN 8.9 g/dL (12.0-16.0); LYMPHOCYTES # (AUTO) 1.1 (1.0-3.2); LYMPHOCYTES % 17.1 % (18.0-39.1); MEAN CORPUSCULAR HEMOGLOBIN 26.6 pg (28-32); MEAN CORPUSCULAR HGB CONC 29.5 g/dL (31-35); MEAN CORPUSCULAR VOLUME 90.4 fL (81-99); MONOCYTES # (AUTO) 0.4 (0.2-0.8); MONOCYTES % 6.2 % (4.4-11.3); NEUTROPHILS # (AUTO) 4.7 (2.1-6.9); NEUTROPHILS % 71.6 % (38.7-80.0); PLATELET COUNT 128 x10e3/uL (140-360); RED BLOOD COUNT 3.34 x10e6/uL (3.6-5.1); RED CELL DISTRIBUTION WIDTH 19.1 % (11.7-14.4)
[2017-04-07 20:00] VITALS: BP 116/85
[2017-04-07] MEDS: MIRTAZAPINE 15 MG TAB PO SCH (22:40)
[2017-04-08 00:38] VITALS: BP 122/85
[2017-04-08] MEDS: ACETYLCYSTEINE 200 MG/ML 4ML VIAL INH SCH ×4 (01:00→23:21)
[2017-04-08] MEDS: ALBUTEROL/IPRATROPIUM 3 ML NEB NEB SCH ×5 (01:00→23:21)
[2017-04-08] MEDS: LORAZEPAM INJ 2 MG/ML VIAL IV SCH ×6 (01:57→23:00)
[2017-04-08] MEDS: PROMETHAZINE 12.5MG/ NACL 0.9% 12.5 MG/50 ML BAG IV PRN ×3 (01:58→23:00)
[2017-04-08] MEDS: GUAIFENESIN 600 MG TAB PO SCH ×5 (02:00→23:00)
--- NOTE | 2017-04-08 04:37 | Progress Note ---
DATE: April 07, 2017 SUBJECTIVE: Patient seen at bedside, in no distress. OBJECTIVE: VITAL SIGNS: Afebrile. Vital signs stable. EXTREMITIES: Both lower extremities getting better, significantly decreased edema with decreased cellulitis and eczema with ulceration, medial aspect of left heel healing slowly, less than 1.5 cm in diameter. ASSESSMENT: Grade 1 ulcer, dermatitis, eczema with cellulitis and neuropathy. PLAN: Will continue Voltaren gel on a p.r.n. basis. Continue Lac-Hydrin 12% lotion. Continue Bactroban ointment. Continue offloading. Job#: [id number]
[2017-04-08] MEDS: INSULIN REGULAR, HUMAN 100 UNIT/1 ML 3ML VIAL SQ SCH ×4 (07:30→21:00)
[2017-04-08 07:34] LABS: BASOPHILS % 0.1 % (0.0-1.0); EOSINOPHILS # (AUTO) 0.1 (0.0-0.4); EOSINOPHILS % 1.3 % (0.0-6.0); HEMATOCRIT 27.5 % (34.2-44.1); HEMOGLOBIN 8.2 g/dL (12.0-16.0); LYMPHOCYTES # (AUTO) 0.8 (1.0-3.2); LYMPHOCYTES % 11.3 % (18.0-39.1); MEAN CORPUSCULAR HEMOGLOBIN 26.6 pg (28-32); MEAN CORPUSCULAR HGB CONC 29.8 g/dL (31-35); MEAN CORPUSCULAR VOLUME 89.3 fL (81-99); MONOCYTES # (AUTO) 0.3 (0.2-0.8); MONOCYTES % 4.9 % (4.4-11.3); NEUTROPHILS # (AUTO) 5.6 (2.1-6.9); NEUTROPHILS % 81.8 % (38.7-80.0); PLATELET COUNT 135 x10e3/uL (140-360); RED BLOOD COUNT 3.08 x10e6/uL (3.6-5.1); RED CELL DISTRIBUTION WIDTH 18.6 % (11.7-14.4)
[2017-04-08 07:40] VITALS: BP 119/83
[2017-04-08] MEDS: DILTIAZEM HCL 30 MG TAB PO SCH ×4 (08:18→23:00)
[2017-04-08] MEDS: CARVEDILOL 12.5 MG TAB PO SCH ×2 (08:18→16:48)
[2017-04-08] MEDS: FUROSEMIDE 40 MG TAB PO SCH ×2 (08:18→16:49)
[2017-04-08] MEDS: FOLIC ACID/CYANOCOB/PYRIDOXINE TAB PO SCH (08:20)
[2017-04-08] MEDS: SUCRALFATE 1 GM/10 ML SUSP PO SCH ×3 (08:20→23:00)
[2017-04-08] MEDS: METHOCARBAMOL 500 MG TAB PO SCH ×2 (08:20→16:49)
[2017-04-08] MEDS: PANTOPRAZOLE SODIUM 40 MG SUSPDR.PKT PO SCH ×2 (08:20→16:48)
[2017-04-08] MEDS: HEPARIN SOD (PORCINE) 5,000 UNIT/ML VIAL SC SCH ×2 (08:21→23:00)
[2017-04-08] MEDS: AMMONIUM LACTATE 12% LOTION 225GM BTL TOP SCH ×2 (08:22→17:03)
[2017-04-08] MEDS: METOCLOPRAMIDE HCL 10 MG/2ML VIAL IV SCH ×4 (08:22→23:00)
[2017-04-08] MEDS: BETAMETHASONE/CLOTRIMAZOLE CR 15 GM TUBE TOP SCH ×2 (08:22→17:00)
[2017-04-08] MEDS: ASCORBIC ACID 500 MG TAB PO SCH ×2 (08:22→16:49)
[2017-04-08] MEDS: DOCUSATE SODIUM 100 MG CAP PO SCH ×2 (08:23→16:48)
[2017-04-08] MEDS: HYDROCORTISONE ACETATE 25 MG/SUPP.RECT SUPP RC SCH ×2 (08:23→17:00)
[2017-04-08] MEDS: POLYETHYLENE GLYCOL 3350 17 GM PACK PO SCH ×2 (08:23→16:49)
[2017-04-08] MEDS: MORPHINE SULFATE 2 MG/ML SYR IV SCH ×5 (08:24→23:00)
[2017-04-08] MEDS: LACTOBACILLUS ACIDOPHILUS CAPSULE PO SCH (08:24)
[2017-04-08] MEDS: MUPIROCIN 2% OINT 22 GM TUBE TOP SCH (08:24)
[2017-04-08] MEDS: DIPHENHYDRAMINE HCL INJ 50 MG/ML VIAL IV SCH ×4 (08:24→23:00)
[2017-04-08 09:16] LABS: ANION GAP 15.2 mmol/L (8-16); CALCIUM 8.3 mg/dL (8.4-10.2); CREATININE, SERUM 5.15 mg/dL (0.57-1.11); POTASSIUM 4.2 mmol/L (3.5-5.1)
[2017-04-08 11:43] VITALS: BP 127/83
[2017-04-08] MEDS: PHENYTOIN SODIUM EXT REL 100 MG CAP PO SCH ×2 (12:11→23:00)
[2017-04-08] MEDS: EPOETIN ALFA 10000 UNIT/ML VIAL SC SCH (13:26)
--- NOTE | 2017-04-08 13:27 | Progress Note ---
DATE: April 08, 2017 PRIMARY CARE PHYSICIAN: Dr. Mukherjee. CONSULTANTS: Dr. Aide Salomon, renal; Dr. Juan Barrios, GI; Dr.Jackquelin Brito, OB; Dr. Timo Calloway, podiatry; Dr. Jeffrey Figueroa, cardiology. CHIEF COMPLAINT: Intractable vomiting, UTI, end-stage renal disease. ALLERGIES: LATEX, NATURAL RUBBER, PENICILLIN, ONDANSETRON, KETORALAC, HYDROMORPHONE. SUBJECTIVE: No new issues at this time. The patient is sleeping, easily aroused. Mother is at bedside. The patient is gradually gaining weight with the PEG tube. Continues with some nausea despite the PEG tube, very little vomiting. She uses oral just for pleasure feedings. MEDICATIONS: Please see MAR. OBJECTIVE VITAL SIGNS: Temperature 97.1, pulse 110, blood pressure 118/83. Respirations 20. Satting 97% with O2 nasal cannula, 2 liters. Weight 115. GENERAL: The patient is sleeping, easily awakened. The patient in no apparent distress. The patient conversant with me. LUNGS: Clear to auscultation bilaterally with normal respiratory effort. HEENT: Extraocular movements are intact. Anicteric. ABDOMEN: Soft. Bowel sounds present, but sluggish, slightly distended, although nontender. PEG tube in place with continued feeding, tolerating well. NEUROLOGIC: Nonfocal. EXTREMITIES: No calf tenderness. NECK: Supple. LABORATORY DATA: Sodium 129, potassium 4.2, chloride 97, CO2 of 21, BUN 70, creatinine 5.15, glucose 178, white count 6.90, hemoglobin 8.2, hematocrit 27.5, platelets 135,000. DIAGNOSES AND PLAN 1. Gastroparesis with nausea and vomiting. Will continue with Phenergan and Reglan p.r.n. Continue with G tube feedings, continuous; has tolerated them well. GI is following. 2. End-stage renal disease on hemodialysis with diabetes mellitus type 1. Continue hemodialysis per nephrology. She has a right chest Jamshid dialysis catheter. The patient is status post blood transfusion of 1 unit on 04/06. 3. Diabetes mellitus, type 2 with hyperglycemia. Continue on sliding scale. The patient has oral feeds for pleasure. Continue on PEG tube feedings. 4. Hypertension, which is stable. Continue to evaluate. Continue blood pressure medications. 5. Congestive heart failure. Cardiology following. Will continue to monitor. Continue on Lasix and, of course, dialysis to off load fluid. 6. Urinary tract infection with E. coli. Continue to monitor. Antibiotics have been completed. 7. Left heel diabetic foot ulcer. Podiatry is following. Had a debridement done. Per previous provider, podiatry has cleared the patient to be discharged as well as cardiology. 8. AICD, status post interrogation. Cardiology has cleared to discontinue. 9. Pelvic pain per previous provider, economic consultant has cleared for discharge. 10. I have discussed discharge planning likely for tomorrow with the patient and mother. Dictated by Tam Sousa NP Job#: [id number] GH
--- NOTE | 2017-04-08 15:37 | Progress Note ---
DATE: April 08, 2017 SUBJECTIVE: Patient seen at bedside. She is still having some chest pain and also some burning sensation to both lower extremities. Denies any history of fever, chills, nausea or vomiting. OBJECTIVE VITAL SIGNS: Afebrile. Pulse rate 111, respiration rate 20 with a O2 saturation 98%. Blood pressure 127/83. EXTREMITIES: Both lower extremities continue to improve. Decreased eczema and decreased cellulitis. Ulceration healing slowly to the medical aspect of the left heel, less than 1.5 cm in diameter. ASSESSMENT: Grade 1 ulcer; dermatitis; neuralgia with eczema. PLAN: Continue prescribed medications. Continue off loading. Patient is recommended range of motion exercises. Will continue to follow until discharge. Job#: [id number]
[2017-04-08 16:35] VITALS: BP 122/86
[2017-04-08 20:40] VITALS: BP 114/77
[2017-04-08] MEDS: MIRTAZAPINE 15 MG TAB PO SCH (23:00)
[2017-04-09] MEDS: MORPHINE SULFATE 2 MG/ML SYR IV SCH ×6 (00:30→20:30)
[2017-04-09] MEDS: LORAZEPAM INJ 2 MG/ML VIAL IV PRN (01:13)
[2017-04-09 01:23] VITALS: BP 125/93
[2017-04-09] MEDS: GUAIFENESIN 600 MG TAB PO SCH ×3 (05:00→16:56)
[2017-04-09] MEDS: DIPHENHYDRAMINE HCL INJ 50 MG/ML VIAL IV SCH ×5 (05:00→20:30)
[2017-04-09] MEDS: LORAZEPAM INJ 2 MG/ML VIAL IV SCH ×3 (05:00→19:30)
[2017-04-09] MEDS: PROMETHAZINE 12.5MG/ NACL 0.9% 12.5 MG/50 ML BAG IV PRN ×3 (05:00→20:30)
[2017-04-09 06:24] VITALS: BP 104/73
[2017-04-09] MEDS: ACETYLCYSTEINE 200 MG/ML 4ML VIAL INH SCH ×3 (07:00→20:25)
[2017-04-09] MEDS: INSULIN REGULAR, HUMAN 100 UNIT/1 ML 3ML VIAL SQ SCH ×4 (07:30→21:00)
[2017-04-09] MEDS: ALBUTEROL/IPRATROPIUM 3 ML NEB NEB SCH ×3 (07:35→20:25)
[2017-04-09] MEDS: CARVEDILOL 12.5 MG TAB PO SCH ×2 (08:00→15:59)
[2017-04-09 08:10] VITALS: BP 111/73
[2017-04-09] MEDS: PANTOPRAZOLE SODIUM 40 MG SUSPDR.PKT PO SCH ×2 (08:49→16:56)
[2017-04-09] MEDS: FUROSEMIDE 40 MG TAB PO SCH ×2 (08:49→16:57)
[2017-04-09] MEDS: DILTIAZEM HCL 30 MG TAB PO SCH ×4 (08:49→23:55)
[2017-04-09] MEDS: METHOCARBAMOL 500 MG TAB PO SCH ×2 (08:49→16:56)
[2017-04-09] MEDS: HEPARIN SOD (PORCINE) 5,000 UNIT/ML VIAL SC SCH (08:50)
[2017-04-09] MEDS: SUCRALFATE 1 GM/10 ML SUSP PO SCH ×3 (08:50→20:30)
[2017-04-09] MEDS: FOLIC ACID/CYANOCOB/PYRIDOXINE TAB PO SCH (08:50)
[2017-04-09] MEDS: AMMONIUM LACTATE 12% LOTION 225GM BTL TOP SCH ×2 (08:50→16:56)
[2017-04-09] MEDS: HYDROCORTISONE ACETATE 25 MG/SUPP.RECT SUPP RC SCH ×2 (08:51→16:56)
[2017-04-09] MEDS: DOCUSATE SODIUM 100 MG CAP PO SCH ×2 (08:51→16:56)
[2017-04-09] MEDS: ASCORBIC ACID 500 MG TAB PO SCH ×2 (08:51→16:56)
[2017-04-09] MEDS: MUPIROCIN 2% OINT 22 GM TUBE TOP SCH ×2 (08:51→09:00)
[2017-04-09] MEDS: BETAMETHASONE/CLOTRIMAZOLE CR 15 GM TUBE TOP SCH ×2 (08:51→16:00)
[2017-04-09] MEDS: METOCLOPRAMIDE HCL 10 MG/2ML VIAL IV SCH ×4 (08:51→20:30)
[2017-04-09] MEDS: LACTOBACILLUS ACIDOPHILUS CAPSULE PO SCH (08:52)
[2017-04-09] MEDS: POLYETHYLENE GLYCOL 3350 17 GM PACK PO SCH ×2 (09:50→16:56)
[2017-04-09] MEDS: PHENYTOIN SODIUM EXT REL 100 MG CAP PO SCH ×2 (12:22→23:55)
[2017-04-09 13:01] VITALS: BP 112/69
--- NOTE | 2017-04-09 15:06 | Progress Note ---
DATE: April 09, 2017 SUBJECTIVE: Patient was seen at the bedside accompanied by mother. No distress. OBJECTIVE VITAL SIGNS: Afebrile. Vital signs stable. EXTREMITIES: Ulceration to the left lower extremity looking better. Decreased cellulitis. Decreased eczema to both lower extremities with pedal pulses palpable, but diminished. ASSESSMENT 1. Neuralgia. 2. Grade 1 ulcer. 3. Eczema. 4. Dermatitis. PLAN: Continue plan of prescribed medications. Continue offloading. On discharge, the patient instructed to follow up in the office. Job#: [id number] [place]
[2017-04-09] MEDS: DIPHENHYDRAMINE HCL INJ 50 MG/ML VIAL IV PRN (15:25)
[2017-04-09 16:20] VITALS: BP 121/78
[2017-04-09 21:34] VITALS: BP 137/86
[2017-04-09] MEDS: MIRTAZAPINE 15 MG TAB PO SCH (23:55)
[2017-04-10] MEDS: GUAIFENESIN 600 MG TAB PO SCH ×4 (00:06→18:30)
[2017-04-10] MEDS: MORPHINE SULFATE 2 MG/ML SYR IV SCH ×6 (00:30→22:30)
[2017-04-10] MEDS: LORAZEPAM INJ 2 MG/ML VIAL IV SCH ×4 (00:30→18:30)
[2017-04-10] MEDS: PROMETHAZINE 12.5MG/ NACL 0.9% 12.5 MG/50 ML BAG IV PRN ×4 (00:30→22:30)
[2017-04-10] MEDS: DIPHENHYDRAMINE HCL INJ 50 MG/ML VIAL IV SCH ×6 (00:30→22:30)
[2017-04-10 00:50] VITALS: BP 122/81
[2017-04-10] MEDS ORDERED: MORPHINE SULFATE 2 MG/ML SYR IV SCH (02:30)
[2017-04-10] MEDS ORDERED: HEPARIN SOD (PORCINE) 5,000 UNIT/ML VIAL SC ONE (04:15)
[2017-04-10 06:12] VITALS: BP 128/85
[2017-04-10] MEDS: ACETYLCYSTEINE 200 MG/ML 4ML VIAL INH SCH ×3 (07:00→19:00)
[2017-04-10 07:20] LABS: BASOPHILS % 0.2 % (0.0-1.0); EOSINOPHILS # (AUTO) 0.1 (0.0-0.4); EOSINOPHILS % 2.9 % (0.0-6.0); HEMATOCRIT 25.8 % (34.2-44.1); LYMPHOCYTES % 20.7 % (18.0-39.1); MEAN CORPUSCULAR HEMOGLOBIN 26.5 pg (28-32); MEAN CORPUSCULAR HGB CONC 30.2 g/dL (31-35); MEAN CORPUSCULAR VOLUME 87.8 fL (81-99); MONOCYTES # (AUTO) 0.6 (0.2-0.8); MONOCYTES % 11.6 % (4.4-11.3); NEUTROPHILS # (AUTO) 3.1 (2.1-6.9); NEUTROPHILS % 64.2 % (38.7-80.0); PLATELET COUNT 142 x10e3/uL (140-360); RED BLOOD COUNT 2.94 x10e6/uL (3.6-5.1); RED CELL DISTRIBUTION WIDTH 17.7 % (11.7-14.4)
[2017-04-10 07:27] LABS: HEMOGLOBIN 7.8 g/dL (12.0-16.0)
[2017-04-10] MEDS: METOCLOPRAMIDE HCL 10 MG/2ML VIAL IV SCH ×4 (07:30→21:29)
[2017-04-10] MEDS: INSULIN REGULAR, HUMAN 100 UNIT/1 ML 3ML VIAL SQ SCH ×4 (07:30→21:00)
[2017-04-10] MEDS: PANTOPRAZOLE SODIUM 40 MG SUSPDR.PKT PO SCH ×2 (07:30→16:30)
[2017-04-10 07:43] LABS: ANION GAP 17.4 mmol/L (8-16); CALCIUM 9.2 mg/dL (8.4-10.2); CREATININE, SERUM 4.82 mg/dL (0.57-1.11); POTASSIUM 4.4 mmol/L (3.5-5.1)
[2017-04-10 08:00] VITALS: BP 123/80
[2017-04-10] MEDS: ALBUTEROL/IPRATROPIUM 3 ML NEB NEB SCH ×3 (08:00→21:20)
[2017-04-10] MEDS: CARVEDILOL 12.5 MG TAB PO SCH ×2 (08:00→17:31)
[2017-04-10] MEDS ORDERED: SODIUM CHLORIDE 0.9% 250ML 250 ML IV ONE (08:45)
--- NOTE | 2017-04-10 08:52 | Progress Note ---
DATE: April 10, 2017 SUBJECTIVE: Patient was seen at bedside. Doing much better. Accompanied by mother. Decreased chest pain. OBJECTIVE VITAL SIGNS: Afebrile. Pulse rate 109, respirations 18, blood pressure 120/85, O2 saturation 96%. EXTREMITIES: Both lower extremities are significantly better. Decreased eczema. Decreased excoriations. The ulcer is healing slowly with healing, less than 1.5 cm in diameter. Superficial necrosis noted with decreased burning sensation to the forefoot aspect of both lower extremities. ASSESSMENT 1. Resolving dermatophytosis. 2. Eczema with healing ulceration. 3. Neuralgia. PLAN: Continue current medications. Continue elevation. Signing off case. Patient upon discharge is to follow up. Instructed on proper diabetic management and proper shoes. Continue plan of prescribed medications at home. Job#: [id number] NE
[2017-04-10] MEDS ORDERED: DIGOXIN 0.125 MG TAB PO ONE (09:00)
[2017-04-10] MEDS: AMMONIUM LACTATE 12% LOTION 225GM BTL TOP SCH ×2 (09:00→17:32)
[2017-04-10] MEDS: HEPARIN SOD (PORCINE) 5,000 UNIT/ML VIAL SC SCH ×2 (09:00→21:30)
[2017-04-10] MEDS: DOCUSATE SODIUM 100 MG CAP PO SCH ×2 (09:00→17:00)
[2017-04-10] MEDS: FOLIC ACID/CYANOCOB/PYRIDOXINE TAB PO SCH (09:00)
[2017-04-10] MEDS: HYDROCORTISONE ACETATE 25 MG/SUPP.RECT SUPP RC SCH ×2 (09:00→17:00)
[2017-04-10] MEDS: BETAMETHASONE/CLOTRIMAZOLE CR 15 GM TUBE TOP SCH ×2 (09:00→17:32)
[2017-04-10] MEDS: FUROSEMIDE 40 MG TAB PO SCH ×2 (09:00→17:31)
[2017-04-10] MEDS: LACTOBACILLUS ACIDOPHILUS CAPSULE PO SCH (09:00)
[2017-04-10] MEDS: DILTIAZEM HCL 30 MG TAB PO SCH ×4 (09:00→21:29)
--- NOTE | 2017-04-10 09:16 | Diagnostic Imaging Report ---
PROCEDURE:CHEST SINGLE (PORTABLE) TECHNIQUE:Portable AP chest INDICATION:Followup pulmonary edema. COMPARISON:Patients [facility], , CHEST SINGLE (PORTABLE), 04/06/2017, 2:59. FINDINGS: See conclusion. CONCLUSION: 1. Right internal jugular tunnel dialysis catheter tips in the upper SVC and low SVC. Left subclavian port catheter tip at the atrial caval junction. 2. Worsening/progressive pulmonary edema relative to April 06. 3. No sizable pleural effusion. 4. Stable cardiomegaly. Single-lead AICD over the left hemithorax from an inferior approach. 5. Progressive central vascular enlargement. Dictated by: Jose Salmeron M.D. on 04/10/2017 at 9:24 Electronically approved by: Jose Salmeron M.D. on 04/10/2017 at 9:24
--- NOTE | 2017-04-10 09:16 | Diagnostic Imaging Report ---
PROCEDURE:ABDOMEN-1VIEW (KUB) TECHNIQUE:Supine AP abdomen totaling 2 radiographs INDICATION:Abdominal pain COMPARISON:None. FINDINGS: See conclusion. CONCLUSION: 1. Indwelling gastrojejunostomy. 2. Large stool volume suggesting constipation. No gross evidence of obstruction. 3. No evidence of ascites. 4. Cholecystectomy clips. 5. Intact skeleton. Dictated by: Jose Salmeron M.D. on 04/10/2017 at 9:24 Electronically approved by: Jose Salmeron M.D. on 04/10/2017 at 9:24
[2017-04-10] MEDS: SUCRALFATE 1 GM/10 ML SUSP PO SCH ×3 (10:04→21:29)
[2017-04-10] MEDS: ASCORBIC ACID 500 MG TAB PO SCH ×2 (10:05→17:31)
[2017-04-10] MEDS: POLYETHYLENE GLYCOL 3350 17 GM PACK PO SCH ×2 (10:05→17:31)
[2017-04-10] MEDS: METHOCARBAMOL 500 MG TAB PO SCH ×2 (10:05→17:31)
[2017-04-10] MEDS: PHENYTOIN SODIUM EXT REL 100 MG CAP PO SCH ×2 (11:45→22:44)
[2017-04-10] MEDS ORDERED: SODIUM CHLORIDE 0.9% 50ML 50 ML ONE (11:56)
[2017-04-10 12:00] VITALS: BP 127/85
[2017-04-10] MEDS: EPOETIN ALFA 10000 UNIT/ML VIAL SC SCH (12:30)
[2017-04-10] MEDS: DIPHENHYDRAMINE HCL INJ 50 MG/ML VIAL IV PRN (12:33)
--- NOTE | 2017-04-10 14:03 | Consultation ---
DATE OF CONSULTATION: PULMONARY CONSULTATION REASON FOR CONSULTATION: Shortness of breath. HPI: Ms. Bermeo is an unfortunate, 31-year-old female who has history of diabetes and severe diabetic gastroparesis. She has end-stage renal disease on diabetes. She has long-standing history of type-1 diabetes that has resulted in different complications. She was admitted with nausea and vomiting. She was having shortness of breath. I reviewed her x-ray, and it is showing worsening pulmonary congestion. Patient is on hemodialysis per nephrology. Her mom at bedside reported the patient has had underlying asthma and bronchitis growing up as a child. She denies any complaints of nausea or vomiting now. REVIEW OF SYSTEMS GENERAL: Denies any fever or chills. HEENT: Denies any head trauma or head injury. ENT: Denies any earache, nosebleed, throat pain. CVS: Denies any chest pain. RESPIRATORY: Patient has shortness of breath. OTHER: The rest of the review of systems are negative except as in HPI. PAST MEDICAL HISTORY: Cardiomyopathy. Has ICD placement. EF of 30%. Diabetes, neurogenic bladder, diabetic gastroparesis, diabetic neuropathy, end-stage renal disease, hypertension, mitral valve prolapse. PAST SURGICAL HISTORY: ICD placement, PEG placement in February, and Port-A-Cath. FAMILY AND SOCIAL HISTORY: She lives at home with her mother. She does not smoke and does not drink. She never smoked. PHYSICAL EXAMINATION VITAL SIGNS: Temperature 98.2, pulse 100, blood pressure 123/80, respiratory 18. O2 sat is 99% on 3 L. SKIN: Warm and dry. GENERAL APPEARANCE: She is a young female in mild respiratory distress. She is awake and alert, following commands and responding to questions appropriately. HEENT: Head atraumatic, normocephalic. NECK: Supple. No JVD. Oral mucosa dry. CHEST: There are crackles on the bases, otherwise clear to auscultation bilaterally. No wheezing. HEART: S1 and S2 audible. ABDOMEN: Soft. Nontender and nondistended. EXTREMITIES: No clubbing or cyanosis. Trace pedal edema. NEUROLOGIC: Awake and alert. LABS: White count of 4.8, hemoglobin 7.8, platelets 142. Chemistry: Sodium 132, potassium 4.4, chloride 95, BUN 53, creatinine 4.82. Urine culture is growing E. coli. CHEST X-RAY: I reviewed the images and compared it with 04/05/2017. The 04/10/2017 x-ray is showing increased vascular congestion. No focal infiltrate. Possibility of right middle lobe infiltrate. ASSESSMENT AND PLAN: Ms. Bermeo is a 31-year-old female. She presented with shortness of breath, nausea and vomiting. She has severe diabetic gastroparesis. PROBLEM LIST 1. Fluid overload likely due to renal failure and cardiomyopathy. Ejection fraction 35%. 2. Since patient had nausea and vomiting to begin with, may have possibility of aspiration pneumonitis, which is improving. Chest x-ray showing increased congestion and likely due to fluid overload. 3. End-stage renal disease. 4. Diabetes mellitus, type 1, with multiple complications including gastroparesis, neuropathy, cardiomyopathy and renal failure. PLAN 1. I agree with nebulizer treatment. 2. Hemodialysis is in progress. Hopefully, it will help in her breathing. 3. I doubt the patient has any pneumonia. Will hold off on the antibiotics for now. 4. Possibility of chemical aspiration pneumonitis is there. However, I do not think the patient will need antibiotics. 5. She has been hypoxic at home and uses home oxygen. I think the likely reason for home oxygen use is advanced heart failure. 6. Will request pulmonary function test to be done at bedside to further evaluate if she has any obstructive lung disease. 7. Will also start Pulmicort nebs if there is a possibility of underlying asthma, and that may help. Discussed with patient's mom at bedside. Job#: [id number]
[2017-04-10 16:00] VITALS: BP 122/80
--- NOTE | 2017-04-10 18:26 | Progress Note ---
DATE: April 10, 2017 The patient evaluated and events noted. Upon evaluation today, the patient is found to be lying comfortably on her bed. She reports some anxiety but denies feeling depressed. She claims that she has been having some issues with sleep. Her appetite is fair, although she is on tube feeding. She denies any hallucinations or suicidal ideations. She is taking her medication. Denies any side effects from her current medications. ASSESSMENT: Major depressive disorder/anxiety. PLAN: Continue p.r.n. temazepam. Continue Remeron. Continue p.r.n. Ativan. Continue p.r.n. Atarax. supportive therapy. Job#: [id number]
[2017-04-10 20:00] VITALS: BP 136/90
[2017-04-10] MEDS: BUDESONIDE 0.5MG/2 ML NEB INH SCH (21:20)
[2017-04-10] MEDS: MIRTAZAPINE 15 MG TAB PO SCH (21:29)
[2017-04-11] VITALS: BP 123/83
[2017-04-11] MEDS: LORAZEPAM INJ 2 MG/ML VIAL IV SCH ×4 (00:19→17:35)
[2017-04-11] MEDS: GUAIFENESIN 600 MG TAB PO SCH ×4 (00:20→17:36)
[2017-04-11] MEDS: ACETYLCYSTEINE 200 MG/ML 4ML VIAL INH SCH (01:00)
[2017-04-11] MEDS: ALBUTEROL/IPRATROPIUM 3 ML NEB NEB SCH ×3 (02:30→13:30)
[2017-04-11] MEDS: DIPHENHYDRAMINE HCL INJ 50 MG/ML VIAL IV SCH ×5 (02:30→17:36)
[2017-04-11] MEDS: MORPHINE SULFATE 2 MG/ML SYR IV SCH ×5 (02:30→17:36)
[2017-04-11 06:01] LABS: BASOPHILS % 0.6 % (0.0-1.0); EOSINOPHILS # (AUTO) 0.2 (0.0-0.4); EOSINOPHILS % 3.3 % (0.0-6.0); HEMATOCRIT 31.9 % (34.2-44.1); HEMOGLOBIN 9.7 g/dL (12.0-16.0); LYMPHOCYTES % 19.6 % (18.0-39.1); MEAN CORPUSCULAR HEMOGLOBIN 26.6 pg (28-32); MEAN CORPUSCULAR HGB CONC 30.4 g/dL (31-35); MEAN CORPUSCULAR VOLUME 87.6 fL (81-99); MONOCYTES # (AUTO) 0.6 (0.2-0.8); NEUTROPHILS # (AUTO) 3.2 (2.1-6.9); NEUTROPHILS % 64.3 % (38.7-80.0); PLATELET COUNT 176 x10e3/uL (140-360); RED BLOOD COUNT 3.64 x10e6/uL (3.6-5.1); RED CELL DISTRIBUTION WIDTH 16.9 % (11.7-14.4)
[2017-04-11 06:21] LABS: ANION GAP 18.1 mmol/L (8-16); CALCIUM 9.1 mg/dL (8.4-10.2); CREATININE, SERUM 4.86 mg/dL (0.57-1.11); POTASSIUM 4.1 mmol/L (3.5-5.1)
[2017-04-11] MEDS: PROMETHAZINE 12.5MG/ NACL 0.9% 12.5 MG/50 ML BAG IV PRN ×2 (07:00→12:00)
[2017-04-11] MEDS: INSULIN REGULAR, HUMAN 100 UNIT/1 ML 3ML VIAL SQ SCH ×3 (07:30→16:30)
[2017-04-11] MEDS: PANTOPRAZOLE SODIUM 40 MG SUSPDR.PKT PO SCH ×2 (07:30→16:30)
[2017-04-11] MEDS: METOCLOPRAMIDE HCL 10 MG/2ML VIAL IV SCH ×3 (07:30→16:30)
[2017-04-11 08:00] VITALS: BP 132/87
[2017-04-11] MEDS: BUDESONIDE 0.5MG/2 ML NEB INH SCH (08:15)
[2017-04-11] MEDS: BETAMETHASONE/CLOTRIMAZOLE CR 15 GM TUBE TOP SCH ×2 (09:00→17:00)
[2017-04-11] MEDS: AMMONIUM LACTATE 12% LOTION 225GM BTL TOP SCH ×2 (09:00→17:00)
[2017-04-11] MEDS: HYDROCORTISONE ACETATE 25 MG/SUPP.RECT SUPP RC SCH ×2 (09:00→17:00)
[2017-04-11] MEDS ORDERED: BISACODYL 5 MG TAB EC PO SCH (09:00)
[2017-04-11] MEDS: CARVEDILOL 12.5 MG TAB PO SCH ×2 (09:46→17:00)
[2017-04-11] MEDS: SUCRALFATE 1 GM/10 ML SUSP PO SCH ×2 (09:46→15:34)
[2017-04-11] MEDS: DILTIAZEM HCL 30 MG TAB PO SCH ×3 (09:47→17:36)
[2017-04-11] MEDS: FUROSEMIDE 40 MG TAB PO SCH ×2 (09:47→17:00)
[2017-04-11] MEDS: POLYETHYLENE GLYCOL 3350 17 GM PACK PO SCH ×2 (09:47→17:00)
[2017-04-11] MEDS: ASCORBIC ACID 500 MG TAB PO SCH ×2 (09:47→17:00)
[2017-04-11] MEDS: LACTOBACILLUS ACIDOPHILUS CAPSULE PO SCH (09:47)
[2017-04-11] MEDS: METHOCARBAMOL 500 MG TAB PO SCH ×2 (09:47→17:00)
[2017-04-11] MEDS: DOCUSATE SODIUM 100 MG CAP PO SCH ×2 (09:47→17:00)
[2017-04-11] MEDS: FOLIC ACID/CYANOCOB/PYRIDOXINE TAB PO SCH (09:47)
[2017-04-11] MEDS: HEPARIN SOD (PORCINE) 5,000 UNIT/ML VIAL SC SCH (09:49)
[2017-04-11 12:00] VITALS: BP 138/93
[2017-04-11] MEDS: PHENYTOIN SODIUM EXT REL 100 MG CAP PO SCH (12:13)
[2017-04-11] MEDS ORDERED: FUROSEMIDE INJ 10 MG/ML 4 ML VIAL IV ONE (12:15)
[2017-04-11] MEDS ORDERED: METOCLOPRAMIDE10 MG PO (12:36)
[2017-04-11] MEDS ORDERED: MIRALAX17 GM PO (12:36)
[2017-04-11] MEDS ORDERED: CLOTRIMAZOLE-BE15 GM TOP (12:36)
[2017-04-11] MEDS ORDERED: Ammonium Lactate 12% Lotion TOP (12:36)
[2017-04-11] MEDS ORDERED: MIRTAZAPINE15 MG PO (12:36)
[2017-04-11] MEDS ORDERED: RESTORIL15 MG PO (12:36)
[2017-04-11] MEDS ORDERED: HYDROXYZINE HCL25 MG PO (12:36)
[2017-04-11] MEDS ORDERED: VOLTAREN100 GM TP (12:36)
[2017-04-11] MEDS ORDERED: DULCOLAX5 MG PO (12:36)
[2017-04-11] MEDS ORDERED: SUCRALFATE1 GM PO (12:41)
[2017-04-11] MEDS ORDERED: SYMBICORT 16010.2 GM INH (12:48)
[2017-04-11] MEDS ORDERED: ACETYLCYSTEINE 20% INHAL SOLN 30 ML VIAL INH SCH (13:00)
[2017-04-11 15:09] LABS: BILIRUBIN,URINE NEGATIVE (NEGATIVE); CLARITY,URINE SL CLOUDY (CLEAR); COLOR,URINE YELLOW (YELLOW); KETONES,URINE NEGATIVE (NEGATIVE); LEUKOCYTE ESTERASE ,URINE 2+ (NEGATIVE); NITRITE,URINE NEGATIVE (NEGATIVE); PROTEIN,URINE DIPSTICK 1+ (NEGATIVE); URINE UROBILINOGEN 0.2 mg/dL (0.2 - 1)
[2017-04-11 15:18] LABS: BACTERIA,URINE MANY /HPF; EPITHELIAL CELLS,URINE FEW /LPF; YEAST,URINE MODERATE
[2017-04-11] MEDS: LORAZEPAM INJ 2 MG/ML VIAL IV PRN (15:34)
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
--- NOTE | 2017-04-14 13:50 | Pulmonary Function Test ---
DATE OF STUDY: SPIROMETRY Pre-bronchodilator values: FEV1 1.19 liters (45%). FVC 1.43 liters (46%). FEV1:FVC ratio 97%. Post-bronchodilator values: FEV1 of 1.13 liters (42%). FVC 1.29 liters (41%). FEV1:FVC ratio is 102%. CONCLUSION: Nonspecific versus restrictive pattern. Full PFT is indicated. Job#: [id number] EV
== END 2017-04-11 18:03 | disposition home or self-care (01) | DRG 73 ==
LOC: ER 20:52 → MED/SURG2 03-30 02:33 → OBSVTOIN 04-05 11:05
PROVIDERS: ADMIT Internal Medicine; ATTEND Internal Medicine
PROC: 0D778ZZ Dilation of Stomach, Pylorus, Via Natural or Artificial Opening Endoscopic (ICD-10-PCS; principal; 2017-04-01 19:00)
PROC: 0HBNXZZ Excision of Left Foot Skin, External Approach (ICD-10-PCS; principal; 2017-04-01 19:00)
PROC: 0DB68ZX Excision of Stomach, Via Natural or Artificial Opening Endoscopic, Diagnostic (ICD-10-PCS; principal; 2017-04-01 19:00)
PROC: 0DB78ZX Excision of Stomach, Pylorus, Via Natural or Artificial Opening Endoscopic, Diagnostic (ICD-10-PCS; principal; 2017-04-01 19:00)
PROC: 5A1D70Z Performance of Urinary Filtration, Intermittent, Less than 6 Hours Per Day (ICD-10-PCS; 2017-04-05)
PROC: 30233N1 Transfusion of Nonautologous Red Blood Cells into Peripheral Vein, Percutaneous Approach (ICD-10-PCS; 2017-04-06)
DX: E10.43 Type 1 diabetes mellitus with diabetic autonomic (poly)neuropathy (principal); N18.6 End stage renal disease; J81.0 Acute pulmonary edema; I13.2 Hypertensive heart and chronic kidney disease with heart failure and with stage 5 chronic kidney disease, or end stage renal disease; E10.621 Type 1 diabetes mellitus with foot ulcer; K31.84 Gastroparesis; E87.5 Hyperkalemia; I42.9 Cardiomyopathy, unspecified; L97.429 Non-pressure chronic ulcer of left heel and midfoot with unspecified severity; N39.0 Urinary tract infection, site not specified; F33.1 Major depressive disorder, recurrent, moderate; I50.22 Chronic systolic (congestive) heart failure; E11.22 Type 2 diabetes mellitus with diabetic chronic kidney disease; Z99.2 Dependence on renal dialysis; Z79.4 Long term (current) use of insulin; Z95.810 Presence of automatic (implantable) cardiac defibrillator; N31.9 Neuromuscular dysfunction of bladder, unspecified; B35.8 Other dermatophytoses; F41.1 Generalized anxiety disorder; D63.1 Anemia in chronic kidney disease; G40.909 Epilepsy, unspecified, not intractable, without status epilepticus; K20.9 Esophagitis, unspecified; K29.70 Gastritis, unspecified, without bleeding; B96.20 Unspecified Escherichia coli [E. coli] as the cause of diseases classified elsewhere; K94.29 Other complications of gastrostomy; L30.9 Dermatitis, unspecified
CPT/HCPCS: 36415; 36430; 43233; 43239; 70450; 71010; 74000; 76700; 80048; 80053; 80185; 81001; 82948; 83735; 83880; 84702; 85025; 86850; 86900; 86920; 87071; 87086; 87186; 87205; 87340; 88305; 88312; 93005; 93306; 94060; 96365; 96367; 96372; 96374; 96375; 96376; 97139; 99284; G0378; J0696; J1200; J1642; J1644; J1940; J2060; J2250; J2270; J2550; J2765; J3410; J7030; J7050; P9016; Q4081

== ENCOUNTER 2017-04-14 12:59 | Emergency (ER) | payer OTHER ==
[~2017-04-14] VITALS: Ht 160 cm; Wt 64.0 kg
[~2017-04-14 12:59] MED LIST changes: +Ammonium Lactate 12% Lotion TOP; +CLOTRIMAZOLE-BE15 GM TOP; +DULCOLAX5 MG PO; +HYDROXYZINE HCL25 MG PO; +LOMOTIL TABLET1 EACH PO; +MIRALAX17 GM PO; +RESTORIL15 MG PO; +SUCRALFATE1 GM PO; +SYMBICORT 16010.2 GM INH; +VOLTAREN100 GM TP
[2017-04-14] MEDS ORDERED: ONDANSETRON HCL INJ 2 MG/ML VIAL IV STA (13:17)
[2017-04-14] MEDS ORDERED: HYDROMORPHONE 1MG/1ML INJ IV STA (13:17)
[2017-04-14] MEDS ORDERED: MEPERIDINE HCL/PF 25 MG/0.5 ML AMP IV ONE (13:30)
[2017-04-14] MEDS ORDERED: PROMETHAZINE 12.5MG/ NACL 0.9% 12.5 MG/50 ML BAG IV ONE (14:00)
[2017-04-14] MEDS ORDERED: MORPHINE SULFATE 2 MG/ML SYR ONE (14:11)
[2017-04-14 14:29] LABS: INR 1.1; PROTHROMBIN TIME 14.8 seconds (11.9-14.5)
[2017-04-14 14:30] LABS: PARTIAL THROMBOPLASTIN TIME 45.7 seconds (23.8-35.5)
[2017-04-14] MEDS ORDERED: MORPHINE SULFATE 4 MG/ML SYR IV ONE (14:30)
[2017-04-14] MEDS ORDERED: DIPHENHYDRAMINE HCL INJ 50 MG/ML VIAL IV ONE (14:30)
[2017-04-14 14:31] LABS: BASOPHILS % 0.6 % (0.0-1.0); EOSINOPHILS # (AUTO) 0.3 (0.0-0.4); EOSINOPHILS % 4.7 % (0.0-6.0); HEMATOCRIT 33.1 % (34.2-44.1); HEMOGLOBIN 10.2 g/dL (12.0-16.0); LYMPHOCYTES # (AUTO) 1.1 (1.0-3.2); LYMPHOCYTES % 17.8 % (18.0-39.1); MEAN CORPUSCULAR HEMOGLOBIN 26.8 pg (28-32); MEAN CORPUSCULAR HGB CONC 30.8 g/dL (31-35); MEAN CORPUSCULAR VOLUME 86.9 fL (81-99); MONOCYTES # (AUTO) 0.5 (0.2-0.8); MONOCYTES % 7.4 % (4.4-11.3); NEUTROPHILS # (AUTO) 4.4 (2.1-6.9); NEUTROPHILS % 68.4 % (38.7-80.0); PLATELET COUNT 265 x10e3/uL (140-360); RED BLOOD COUNT 3.81 x10e6/uL (3.6-5.1); RED CELL DISTRIBUTION WIDTH 16.8 % (11.7-14.4)
[2017-04-14 14:38] LABS: ALBUMIN 2.8 g/dL (3.5-5.0); ALBUMIN/GLOBULIN RATIO 0.5 (0.8-2.0); ANION GAP 19.2 mmol/L (8-16); CALCIUM 9.2 mg/dL (8.4-10.2); CREATININE, SERUM 6.67 mg/dL (0.57-1.11); POTASSIUM 4.2 mmol/L (3.5-5.1)
== END 2017-04-14 15:33 | disposition home or self-care (01) ==
LOC: ER 12:59
DX: R11.2 Nausea with vomiting, unspecified (principal); E11.22 Type 2 diabetes mellitus with diabetic chronic kidney disease; I13.10 Hypertensive heart and chronic kidney disease without heart failure, with stage 1 through stage 4 chronic kidney disease, or unspecified chronic kidney disease; N18.9 Chronic kidney disease, unspecified; Z79.4 Long term (current) use of insulin; Z88.6 Allergy status to analgesic agent; Z88.5 Allergy status to narcotic agent; Z91.040 Latex allergy status; Z95.0 Presence of cardiac pacemaker; Z88.0 Allergy status to penicillin; Z91.09 Other allergy status, other than to drugs and biological substances
CPT/HCPCS: 36415; 80053; 85025; 85610; 85730; 99284; J1200; J1642; J2270; J2550

== ENCOUNTER 2017-04-16 13:31 | Emergency (ER) | payer MEDICAID, OTHER ==
[~2017-04-16] VITALS: Ht 160 cm; Wt 64.0 kg
[2017-04-16] MEDS ORDERED: SODIUM CHLORIDE FLUSH 10 ML SYR INJ PRN ×2 (14:30)
--- NOTE | 2017-04-16 14:55 | Diagnostic Imaging Report ---
PROCEDURE: A single AP view of the chest. COMPARISON: Chest radiograph 04/10/2017 INDICATIONS: VOMITING, CHEST PAIN FINDINGS: Lines/tubes: * Right IJ tunneled dialysis catheter tips overlie the upper and lower SVC, unchanged. * Left subclavian port catheter tip overlies the cavoatrial junction, unchanged. * Single lead AICD with inferior approach, unchanged. Lungs: The lungs are moderately inflated and clear. Decreased central vascular congestion. There is no evidence of pneumonia or overt pulmonary edema. Pleura: There is no pleural effusion or pneumothorax. Heart and mediastinum: Stable cardiomegaly. Bones: No acute bony abnormality. Upper abdomen: No free air under the diaphragm. Cholecystectomy clips in the right upper quadrant. IMPRESSION: No acute cardiopulmonary disease. Dictated by: Edwin Graham M.D. on 04/16/2017 at 15:03 Electronically approved by: Edwin Graham M.D. on 04/16/2017 at 15:03
[2017-04-16] MEDS ORDERED: DIATRIZOATE MEGL/DIATRIZOA SOD 30 ML BTL PO ONE (15:07)
[2017-04-16 22:42] LABS: BASOPHILS # (AUTO) 0.1 (0.0-0.1); BASOPHILS % 0.9 % (0.0-1.0); EOSINOPHILS # (AUTO) 0.3 (0.0-0.4); EOSINOPHILS % 5.2 % (0.0-6.0); HEMATOCRIT 35.5 % (34.2-44.1); HEMOGLOBIN 10.8 g/dL (12.0-16.0); LYMPHOCYTES # (AUTO) 1.8 (1.0-3.2); LYMPHOCYTES % 27.2 % (18.0-39.1); MEAN CORPUSCULAR HEMOGLOBIN 26.7 pg (28-32); MEAN CORPUSCULAR HGB CONC 30.4 g/dL (31-35); MEAN CORPUSCULAR VOLUME 87.9 fL (81-99); MONOCYTES # (AUTO) 0.5 (0.2-0.8); MONOCYTES % 7.5 % (4.4-11.3); NEUTROPHILS # (AUTO) 3.8 (2.1-6.9); NEUTROPHILS % 58.3 % (38.7-80.0); PLATELET COUNT 317 x10e3/uL (140-360); RED BLOOD COUNT 4.04 x10e6/uL (3.6-5.1); RED CELL DISTRIBUTION WIDTH 16.7 % (11.7-14.4)
[2017-04-16 23:01] LABS: ALANINE AMINOTRANSFERASE 16 IU/L (0-55); ALBUMIN 2.7 g/dL (3.5-5.0); ALBUMIN/GLOBULIN RATIO 0.5 (0.8-2.0); ALKALINE PHOSPHATASE 181 IU/L (40-150); ANION GAP 18.3 mmol/L (8-16); BLOOD UREA NITROGEN 81 mg/dL (7-26); BUN/CREATININE RATIO 14 (6-25); CALCIUM 9.4 mg/dL (8.4-10.2); CARBON DIOXIDE 16 mmol/L (22-29); CHLORIDE 105 mmol/L (98-107); CREATINE KINASE 28 IU/L (29-168); CREATININE, SERUM 5.75 mg/dL (0.57-1.11); EST GLOMERULAR FILTRATION RATE 11 ML/MIN (60-); GLUCOSE 93 mg/dL (74-118); POTASSIUM 4.3 mmol/L (3.5-5.1); SODIUM 135 mmol/L (136-145)
--- NOTE | 2017-04-17 01:03 | Diagnostic Imaging Report ---
EXAM: CT Abdomen and Pelvis WITHOUT contrast INDICATION: Abdominal pain and distention, dialysis patient COMPARISON: None. TECHNIQUE: Abdomen and pelvis were scanned utilizing a multidetector helical scanner from the lung base to the pubic symphysis without administration of IV contrast. Absence of intravenous contrast decreases sensitivity for detection of focal lesions and vascular pathology. Coronal and sagittal reformations were obtained. Routine protocol was performed. IV CONTRAST: None. ORAL CONTRAST: Water RADIATION DOSE: Total DLP: 301.33 mGy*cm Estimated effective dose: (DLP x 0.015 x size factor) mSv COMPLICATIONS: None FINDINGS: LINES and TUBES: Left-sided pacemaker. Gastrostomy tube with tip of the tube within the duodenum LOWER THORAX: Mild cardiomegaly and evidence of interlobular septi thickening in the lung bases. HEPATOBILIARY: No focal hepatic lesions. No biliary ductal dilation. GALLBLADDER: There are cholecystectomy clips. SPLEEN: No splenomegaly. PANCREAS: No focal masses or ductal dilatation. ADRENALS: No adrenal nodules KIDNEYS/URETERS: No hydronephrosis. No cystic or solid mass lesions. No stones. GI TRACT: No abnormal distention, wall thickening, or evidence of bowel obstruction. Appendix is normal. PELVIC ORGANS/BLADDER: Unremarkable. LYMPH NODES: No lymphadenopathy. VESSELS: Unremarkable. PERITONEUM / RETROPERITONEUM: There is moderate of amount of free fluid in the abdomen. BONES: Unremarkable. SOFT TISSUES: Unremarkable. IMPRESSION: 1. Moderate ascites. 2. Mild pulmonary edema present 3. No acute intra-abdominal or pelvic abnormality Signed by: Dr. Aris Hilliard M.D. on 04/17/2017 12:59 AM
== END 2017-04-17 03:00 | disposition home or self-care (01) ==
LOC: ER 13:31
DX: R10.33 Periumbilical pain (principal); I12.0 Hypertensive chronic kidney disease with stage 5 chronic kidney disease or end stage renal disease; N18.6 End stage renal disease; Z99.2 Dependence on renal dialysis; E11.43 Type 2 diabetes mellitus with diabetic autonomic (poly)neuropathy; R11.2 Nausea with vomiting, unspecified; Z93.1 Gastrostomy status; Z95.810 Presence of automatic (implantable) cardiac defibrillator
CPT/HCPCS: 36415; 71010; 74176; 80053; 82550; 82553; 83880; 84484; 84702; 85025; 99284

== ENCOUNTER 2017-05-30 16:31 | Inpatient (IN) | payer MEDICAID, OTHER ==
[~2017-05-30] VITALS: Ht 160 cm; Wt 72.8 kg
--- OUTSIDE RECORDS SUMMARY | 2017-05-30 16:35 | XMS REPORT ---
[facility] Address Unknown Phone Unavailable Care Team Providers Care [employer]icians [employer] Workers Name Role Phone MIREILLE AMOR Unavailable Unavailable JOHN BAHENA Unavailable Unavailable SAM FRANCO Unavailable Unavailable ROSMERY, YARY Unavailable Unavailable Problems This patient has no known problems. Allergies, Adverse Reactions, Alerts This patient has no known allergies or adverse reactions. Medications This patient has no known medications. Results Test Description Test Time Test Comments Text Results Atomic Results Result Comments FLOW PRA CLASS I AND II 2016-08-01 08:43:00 DATE OF SERUM (BEAKER) (test sebb=9629) 460898 SERUM # (BEAKER) (test kfqq=1892) 160411 FLOW PRA CLASS I AND II (test lvdu=1461) See Scanned Report HLA [id number] 08:01:00* Test Item Value Reference Range Comments HLA RESULT (BEAKER) (test emmm=5439) See Scanned Report HLA-A AG1 (BEAKER) (test qbpi=0393) HLA-A AG2 (BEAKER) (test rtvi=6431) HLA-B AG1 (BEAKER) (test ywvs=6587) HLA-B AG2 (BEAKER) (test payr=8713) HLA-C AG1 (BEAKER) (test pxwo=6955) HLA-C AG2 (BEAKER) (test famq=6065) HLA-DR AG1 (BEAKER) (test zofl=5897) HLA-DR AG2 (BEAKER) (test ubsd=5568) HLA-DQ AG1 (BEAKER) (test fyfi=9695) HLA-DQ AG2 (BEAKER) (test bxit=8738) HLA-DRW (BEAKER) (test akam=9126) URINE [id number] 12:00:00* Test Item Value Reference Range Comments CULTURE (BEAKER) (test xxxb=4139) ENTEROCOCCUS SPECIES >100,000 col/mL Enterococcus species Ampicillin (test code=26) Linezolid (test code=40) Nitrofurantoin (test code=23) Tetracycline (test code=2) Vancomycin (test code=13) CULTURE ([facility]) (test qsvz=071223) 30-39,000 col/mL Marleen glabrata 20-29,000 col/mL skin [id number] 10:58:00* Test Item Value Reference Range Comments RPR SCREEN ([facility]) (test pxax=404) Nonreactive Nonreactive CYTOMEGALOVIRUS ANTIBODY, [id number] 15:48:00* Test Item Value Reference Range Comments CYTOMEGALOVIRUS IGG ANTIBODY (BEAKER) (test lopj=030) Positive CYTOMEGALOVIRUS ANTIBODY, [id number] 15:48:00* Test Item Value Reference Range Comments CYTOMEGALOVIRUS IGM ANTIBODY (BEAKER) (test vppq=009) Negative EBV-VCA ANTIBODY, [id number] 15:48:00* Test Item Value Reference Range Comments LOUISE-BELTRE VCA IGG (BEAKER) (test nbxr=990) Negative EBV-VCA ANTIBODY, [id number] 15:48:00* Test Item Value Reference Range Comments LOUISE-BELTRE VCA IGM (BEAKER) (test bfhv=597) Negative VARICELLA ZOSTER ANTIBODY, [id number] 15:47:00* Test Item Value Reference Range Comments VARICELLA ZOSTER IGG (AL) (AKER) (test zrox=0735) > Al VARICELLA ZOSTER RESULT INTERPRETATIONS: <=0.8 Al Nonreactive: Presumed non-immune to VZV 0.9-1.0 Al Equivocal >=1.1 Al Reactive: Presumed immune to VZVHEMOGLOBIN [id number] 14:59:00* Test Item Value Reference Range Comments HEMOGLOBIN A1C (BEAKER) (test ogin=007) 6.2 % 4.3-6.1 CBC W/PLT COUNT & AUTO [id number] 13:44:00* Test Item Value Reference Range Comments WHITE BLOOD CELL COUNT (BEAKER) (test gkpx=716) 3.9 K/ L 4.0-10.0 RED BLOOD CELL COUNT (BEAKER) (test qavl=169) 3.60 M/ L 4.00-5.00 HEMOGLOBIN (BEAKER) (test gcsm=988) 10.9 GM/DL 12.0-15.0 HEMATOCRIT (BEAKER) (test hdbb=583) 35.9 % 36.0-45.0 MEAN CORPUSCULAR VOLUME (BEAKER) (test mgjh=260) 99.8 fL 82.0-99.0 MEAN CORPUSCULAR HEMOGLOBIN (BEAKER) (test ahev=468) 30.2 pg 27.0-33.0 MEAN CORPUSCULAR HEMOGLOBIN CONC (BEAKER) (test byhy=656) 30.3 GM/DL 32.0- 36.0 RED CELL DISTRIBUTION WIDTH (BEAKER) (test vtrh=622) 17.2 % 10.3-14.2 PLATELET COUNT (BEAKER) (test cerq=635) 139 K/CU MM 150-430 MEAN PLATELET VOLUME (BEAKER) (test wuvj=828) 9.0 fL 6.5-10.5 NUCLEATED RED BLOOD CELLS (BEAKER) (test zyqy=682) 11 /100 WBC 0-0 NEUTROPHILS RELATIVE PERCENT (BEAKER) (test dbes=417) 63 % LYMPHOCYTES RELATIVE PERCENT (BEAKER) (test jmkn=233) 25 % MONOCYTES RELATIVE PERCENT (BEAKER) (test rify=899) 7 % EOSINOPHILS RELATIVE PERCENT (BEAKER) (test vjwq=526) 5 % BASOPHILS RELATIVE PERCENT (BEAKER) (test fnjl=089) 0 % NEUTROPHILS ABSOLUTE COUNT (BEAKER) (test apqh=550) 2.48 K/ L 1.80-8.00 LYMPHOCYTES ABSOLUTE COUNT (BEAKER) (test kzxv=893) 1.00 K/ L 1.48-4.50 MONOCYTES ABSOLUTE COUNT (BEAKER) (test dxbv=567) 0.26 K/ L 0.00-1.30 EOSINOPHILS ABSOLUTE COUNT (BEAKER) (test avkb=043) 0.18 K/ L 0.00-0.50 BASOPHILS ABSOLUTE COUNT (BEAKER) (test okos=566) 0.01 K/ L 0.00-0.20 0.00(MANUAL DIFFERENTIAL)2016-07-19 13:44:00* Test Item Value Reference Range Comments TOTAL COUNTED (BEAKER) (test vfhf=3229) WBC MORPHOLOGY (BEAKER) (test zgiv=759) Normal PLT MORPHOLOGY (BEAKER) (test nyfa=889) Normal HYPOCHROMIA (BEAKER) (test cvqh=263) 1+ few OVALOCYTES (BEAKER) (test kwuc=686) 1+ few POLYCHROMATOPHILLIC RBCS(BEAKER) (test jzbu=014) 1+ few TEAR DROP CELLS (BEAKER) (test rphk=095) 2+ moderate COMPREHENSIVE METABOLIC [id number] 11:53:00* Test Item Value Reference Range Comments TOTAL PROTEIN (BEAKER) (test kbzz=282) 7.6 gm/dL 6.0-8.3 ALBUMIN (BEAKER) (test uvkh=8730) 3.6 g/dL 3.5-5.0 ALKALINE PHOSPHATASE (BEAKER) (test qgfx=823) 348 U/L 40-150 BILIRUBIN TOTAL (BEAKER) (test yusm=909) 0.3 mg/dL 0.2-1.2 SODIUM (BEAKER) (test raoj=314) 139 meq/L 136-145 POTASSIUM (BEAKER) (test hxgz=763) 3.5 meq/L 3.5-5.1 CHLORIDE (BEAKER) (test bfrq=311) 98 meq/L 98-107 CO2 (BEAKER) (test rldy=681) 25 meq/L 22-29 BLOOD UREA NITROGEN (BEAKER) (test kmon=329) 28 mg/dL 7-21 CREATININE (BEAKER) (test colv=827) 3.95 mg/dL 0.57-1.25 GLUCOSE RANDOM (BEAKER) (test cbtu=933) 280 mg/dL 70-105 CALCIUM (BEAKER) (test mfsy=449) 8.4 mg/dL 8.4-10.2 AST (SGOT) (BEAKER) (test bojh=283) 71 U/L 5-34 ALT (SGPT) (BEAKER) (test rcbs=414) 51 U/L 6-55 EGFR (BEAKER) (test vwck=8318) 16 mL/min/1.73 sq m ESTIMATED GFR IS NOT ACCURATE CREATININE CLEARANCE IN PREDICTING GLOMERULAR FILTRATION RATE. ESTIMATED GFR IS NOT APPLICABLE FOR DIALYSIS PATIENTS. URINALYSIS W/ [id number] 11:37:00* Test Item Value Reference Range Comments COLOR (BEAKER) (test cthw=817) Yellow CLARITY (BEAKER) (test xdip=483) Hazy SPECIFIC GRAVITY UA (BEAKER) (test kehn=592) 1.011 1.001-1.035 PH UA (BEAKER) (test dpze=206) 6.0 5.0-8.0 PROTEIN UA (BEAKER) (test dgoi=526) 300 mg/dL Negative GLUCOSE UA (BEAKER) (test rxdb=308) 500 mg/dL Negative KETONES UA (BEAKER) (test zwry=157) Negative Negative BILIRUBIN UA (BEAKER) (test cluy=671) Negative Negative BLOOD UA (BEAKER) (test tpnr=969) Small Negative NITRITE UA (BEAKER) (test pvmg=341) Negative Negative LEUKOCYTE ESTERASE UA (BEAKER) (test siar=546) Large Negative UROBILINOGEN UA (BEAKER) (test iomm=637) 0.2 mg/dL 0.2-1.0 RBC UA (BEAKER) (test xywp=475) 5 /HPF WBC UA (BEAKER) (test sgkf=761) 27 /HPF BACTERIA (BEAKER) (test wznw=669) Moderate SQUAMOUS EPITHELIAL (BEAKER) (test xswm=719) 2 /HPF HYALINE CASTS (BEAKER) (test zxpc=655) 6 /LPF AMORPHOUS CRYSTALS (BEAKER) (test byhb=4677) Many YEAST (BEAKER) (test klac=0456) Many SOURCE(BEAKER) (test epbg=8976) HEPATITIS B SURFACE [id number] 11:31:00* Test Item Value Reference Range Comments HEPATITIS B SURFACE ANTIGEN (2) (BEAKER) (test nzio=5657) Nonreactive Nonreactive HEPATITIS B SURFACE [id number] 11:31:00* Test Item Value Reference Range Comments HEPATITIS B SURFACE ANTIBODY (BEAKER) (test peqv=846) 922.9 mIU/mL <8.0 HEPATITIS B CORE ANTIBODY, [id number] 11:31:00* Test Item Value Reference Range Comments HEPATITIS B CORE IGM ANTIBODY (BEAKER) (test nrbv=646) Nonreactive Nonreactive HEPATITIS C [id number] 11:31:00* Test Item Value Reference Range Comments HEPATITIS C ANTIBODY (BEAKER) (test zfbk=652) Nonreactive Nonreactive HIV-1 ANTIGEN WITH HIV-1/2 [id number] 11:31:00* Test Item Value Reference Range Comments HIV-1 ANTIGEN WITH HIV 1\T\2 ANTIBODY (2) (BEAKER) (test bfpu=8545) Nonreactive Nonreactive URIC [id number] 11:25:00* Test Item Value Reference Range Comments URIC ACID (BEAKER) (test amvs=475) 3.9 mg/dL 2.6-7.2 [id number] 11:25:00* Test Item Value Reference Range Comments PHOSPHORUS (BEAKER) (test wfey=822) 5.7 mg/dL 2.3-4.7 LIPID [id number] 11:25:00* Test Item Value Reference Range Comments TRIGLYCERIDES (BEAKER) (test vbmt=114) 115 mg/dL CHOLESTEROL (BEAKER) (test zeid=422) 179 mg/dL HDL CHOLESTEROL (BEAKER) (test pmza=575) 51 mg/dL LDL CHOLESTEROL CALCULATED (BEAKER) (test rjdo=348) 105 mg/dL Triglyceride Reference Range: Low Risk <150 Borderline 150-199 High Risk 200-499 Very High Risk >=500Cholesterol Reference Range: Low Risk <200 Borderline 200-239 High Risk >240HDL Cholesterol Reference Range: Low Risk >=60 High Risk <40LDL Cholesterol Reference Range: Optimal <100 Near Optimal 100-129 Borderline 130-159 High 160-189 Very High >=190 GAMMA GLUTAMYL TRANSFERASE (GGT)2016-07-19 11:25:00* Test Item Value Reference Range Comments GAMMA GLUTAMYL TRANSFERASE (BEAKER) (test idce=333) 649 U/L 9-64 LACTATE DEHYDROGENASE (LDH)2016-07-19 11:25:00* Test Item Value Reference Range Comments LACTATE DEHYDROGENASE (BEAKER) (test kawo=810) 288 U/L 125-220 PTH, [id number] 11:14:00* Test Item Value Reference Range Comments PARATHYROID HORMONE INTACT (BEAKER) (test ggqq=674) 243.8 pg/mL 8.5-72.5 Effective 03/02/2014: Reference Range ChangeNew: 8.5-72.5 Previous: 15.0- 90.0PT/[id number] 10:57:00* Test Item Value Reference Range Comments PROTIME (BEAKER) (test mtgs=206) 15.3 seconds 11.7-14.7 INR (BEAKER) (test qatc=192) 1.2 <=5.9 PARTIAL THROMBOPLASTIN TIME (BEAKER) (test pcdj=944) 33.6 seconds 22.5-36.0 RECOMMENDED COUMADIN/WARFARIN INR THERAPY RANGESSTANDARD DOSE: 2.0 - 3.0 Includes: PROPHYLAXIS for venous thrombosis, systemic embolization; TREATMENT for venous thrombosis and/or pulmonary embolus.HIGH RISK: Target INR is 2.5-3.5 for patients with mechanical heart valves.CT ABDOMEN/PELVIS WO [place] [address] Patient Name: SONAM NAVARRETE MR #: [id number] : 1985 Age/Sex: 31/F Req #: [id number] Adm Physician: Ordered by: AMELIA COPPOLA Report #: [id number] Location: ER Room/Bed : Procedure: [id number] CT/CT ABDOMEN/PELVIS WO Exam Date: Exam Time: REPORT STATUS: Signed EXAM: CT Abdomen and Pelvis WITHOUT contrast INDICATION: Abdominal pain and distention, dialysis patient COMPARISON: None. TECHNIQUE: Abdomen and pelvis were scanned utilizing a multidetector helical scanner from the lung base to the pubic symphysis without administration of IV contrast. Absence of intravenous contrast decreases sensitivity for detection of focal lesions and vascular pathology. Coronal and sagittal reformations were obtained. Routine protocol was performed. IV CONTRAST: None. ORAL CONTRAST: Water RADIATION DOSE: Total DLP: 301.33 mGy*cm Estimated effective dose: (DLP x 0.015 x size factor) mSv COMPLICATIONS: None FINDINGS: LINES and TUBES: Left-sided pacemaker. Gastrostomy tube with tip of the tube within the duodenum LOWER THORAX: Mild cardiomegaly and evidence of interlobular septi thickening in the lung bases. HEPATOBILIARY: No focal hepatic lesions. No biliary ductal dilation. GALLBLADDER: There are cholecystectomy clips. SPLEEN: No splenomegaly. PANCREAS: No focal masses or ductal dilatation. ADRENALS: No adrenal nodules KIDNEYS/URETERS: No hydronephrosis. No cystic or solid mass lesions. No stones. GI TRACT: No abnormal distention, wall thickening, or evidence of bowel obstruction. Appendix is normal. PELVIC ORGANS/BLADDER: Unremarkable. LYMPH NODES: No lymphadenopathy. VESSELS: Unremarkable. PERITONEUM / RETROPERITONEUM: There is moderate of amount of free fluid in the abdomen. BONES: Unremarkable. SOFT TISSUES: Unremarkable. IMPRESSION: 1. Moderate ascites. 2. Mild pulmonary edema present 3. No acute intra- abdominal or pelvic abnormality Signed by: Dr. Aris Hilliard M.D. on 2017 12:59 AM Dictated By: ARIS SOSA MD Transcribed By: SHANE on 04/17/1758 COPY TO: AMELIA COPPOLA CHEST SINGLE (NOT PORTABLE) [place] [address] Patient Name: SONAM NAVARRETE MR #: [id number] : 1985 Age/Sex: 31/F Req #: [id number] Adm Physician: Ordered by: AMELIA COPPOLA Report #: [id number] Location: ER Room/Bed: Procedure: [id number] DX/CHEST SINGLE (NOT PORTABLE) Exam Date: 04/16/17 Exam Time: 1430 REPORT STATUS: Signed PROCEDURE: A single AP view of the chest. COMPARISON: Chest radiograph 04/10/2017 INDICATIONS: VOMITING, CHEST PAIN FINDINGS: Lines/tubes: * Right IJ tunneled dialysis catheter tips overlie the upper and lower SVC, unchanged. * Left subclavian port catheter tip overlies the cavoatrial junction, unchanged. * Single lead AICD with inferior approach, unchanged. Lungs: The lungs are moderately inflated and clear. Decreased central vascular congestion. There is no evidence of pneumonia or overt pulmonary edema. Pleura: There is no pleural effusion or pneumothorax. Heart and mediastinum: Stable cardiomegaly. Bones: No acute bony abnormality. Upper abdomen: No free air under the diaphragm. Cholecystectomy clips in the right upper quadrant. IMPRESSION: No acute cardiopulmonary disease. Dictated by: Edwin Martinez M.D. on 04/16/2017 at 15:03 Electronically approved by: Edwin Martinez M.D. on 04/16/2017 at 15:03 Dictated By: EDWIN MARTINEZ MD 1503 COPY TO: AMELIA COPPOLA CHEST SINGLE (PORTABLE) [place] [address] Patient Name: SONAM NAVARRETE MR #: [id number] : 1985 Age/Sex: 31/F Req #: [id number] Adm Physician: JOHN BAHENA MD Ordered by: Wendy Terry STITCHER FEEDER Report #: [id number] Location: MED/SURG2 Room/Bed: [facility] Procedure: [id number] DX/CHEST SINGLE (PORTABLE) Exam Date: 04/10/17 Exam Time: 0850 REPORT STATUS: Signed PROCEDURE: CHEST SINGLE (PORTABLE) TECHNIQUE: Portable AP chest INDICATION: Followup pulmonary edema. COMPARISON: [facility], DX, CHEST SINGLE (PORTABLE), 04/06/2017, 2:59. FINDINGS: See conclusion. CONCLUSION: 1. Right internal jugular tunnel dialysis catheter tips in the upper SVC and low SVC. Left subclavian port catheter tip at the atrial caval junction. 2. Worsening/progressive pulmonary edema relative to April 06. 3. No sizable pleural effusion. 4. Stable cardiomegaly. Single-lead AICD over the left hemithorax from an inferior approach. 5. Progressive central vascular enlargement. Dictated by: Hank Salmeron M.D. on 04/10/2017 at 9:24 Electronically approved by: Hank Salmeron M.D. on 04/10/2017 at 9:24 Dictated By: HANK SALMERON MD 3 Transcribed By: ATTILA on 04/10/17923 COPY TO: WENDY TERRY NP ABDOMEN-1VIEW ([facility]) [place] [address] Patient Name: SONAM NAVARRETE MR #: [id number] : 1985 Age/Sex: 31/F Req #: [id number] Adm Physician: JOHN BAHENA MD Ordered by: Wendy Terry NP Report #: [id number] Location: MED/SURG2 Room/Bed: [facility] Procedure: [id number] DX/ABDOMEN-1VIEW ([facility]) Exam Date : 04/10/17 Exam Time: 0850 REPORT STATUS: Signed PROCEDURE: ABDOMEN-1VIEW ([facility]) TECHNIQUE: Supine AP abdomen totaling 2 radiographs INDICATION: Abdominal pain COMPARISON: None. FINDINGS: See conclusion. CONCLUSION: 1. Indwelling gastrojejunostomy. 2. Large stool volume suggesting constipation. No gross evidence of obstruction. 3. No evidence of ascites. 4. Cholecystectomy clips. 5. Intact skeleton. Dictated by: Hank Salmeron M.D. on 04/10/2017 at 9:24 Electronically approved by: Hank Salmeron M.D. on 04/10/2017 at 9:24 Dictated By: HANK SALMERON MD 3 Transcribed By: ATTILA on 04/10/17923 COPY TO: WENDY TERRY NP CHEST SINGLE (PORTABLE) [place] [address] Patient Name: SNOAM NAVARRETE MR #: [id number] : 1985 Age/Sex: 31/F Req # : [id number] [facility] Physician: JOHN BAHENA MD Ordered by: JOHN BAHENA MD Report #: [id number] Location: MED/SURG2 Room/Bed: [facility] _ Procedure: [id number] DX/CHEST SINGLE (PORTABLE) Exam Date: 04/06/17 Exam Time: 0605 REPORT STATUS: Signed EXAM: CHEST SINGLE (PORTABLE), AP 1 view DATE: 04/06/2017 6:00 AM Time stamp on exam: 0259 hours INDICATION: Pulmonary edema COMPARISON: AP view of the chest April 05, 2017 FINDINGS: LINES/TUBES: Stable left chest wall 3 sternal single lead ICD. Stable position of right internal jugular vein tunneled hemodialysis catheter and left subclavian chest port LUNGS: Stable pulmonary edema PLEURA: No effusions or pneumothorax. HEART AND MEDIASTINUM: Stable cardiac enlargement BONES AND SOFT TISSUES: No acute findings. Surgical clips right upper quadrant of the abdomen. IMPRESSION: Stable pulmonary edema Signed by: Dr. Princess Godinez M.D. on 04/06/2017 6:36 AM Dictated By: PRINCESS GODINEZ MD 5 Transcribed By: SHANE on 04/06/17635 COPY TO: JOHN BAHENA MD CHEST SINGLE ( PORTABLE) [place] [address] Patient Name: SONAM NAVARRETE MR #: [id number] : 1985 Age/Sex: 31/F Req #: [id number] Adm Physician: JOHN BAHENA MD Ordered by: Wendy Terry STITCHER FEEDER Report #: [id number] Location: MED/SURG2 Room/Bed: [facility] _ Procedure: [id number] DX/CHEST SINGLE (PORTABLE) Exam Date: 04/05/17 Exam Time: 0530 REPORT STATUS: Signed EXAM: CHEST SINGLE (PORTABLE), AP 1 view DATE: 04/05/2017 5:00 AM Time stamp on exam: 0528 hours INDICATION: Congestion COMPARISON: AP view of the chest April 05, 2017 FINDINGS: LINES/TUBES: Stable left chest wall presternal single lead ICD. Stable position of right internal jugular vein tunneled hemodialysis catheter and left subclavian chest port. LUNGS: Pulmonary edema. PLEURA: No effusions or pneumothorax. HEART AND MEDIASTINUM: Stable cardiac enlargement. BONES AND SOFT TISSUES: No acute findings. IMPRESSION: Interval development of pulmonary edema. Signed by: Dr. Princess Godinez M.D. on 04/05/2017 6:16 AM Dictated By: PRINCESS GODINEZ MD 5 Transcribed By: SHANE on 04/05/17615 COPY TO: WENDY TERRY STITCHER FEEDER US ABDOMEN COMPLETE [facility] [address] [place] [address] Patient Name: SONAM NAVARRETE MR #: [id number] : 1985 Age/Sex: 31/F Req #: [id number] Adm Physician: JOHN BAHENA MD Ordered by: Wendy Terry STITCHER FEEDER Report #: [id number] Location: MED/SURG2 Room/Bed: [facility] Procedure: [id number] US/US ABDOMEN COMPLETE Exam Date : 04/06/17 Exam Time: 1022 REPORT STATUS: Signed EXAM: ABDOMINAL ULTRASOUND Date: 04/05/2017 12:00 AM Indication: Comparison: None Technique: Sonographic evaluation of the abdomen. Color doppler was utilized to supplement evaluation. FINDINGS: Exam limited by overlying bowel gas. LIVER: No focal lesion is identified. The liver measures 17.1 cm in the right midclavicular line. Echotexture is normal. BILIARY: Gallbladder is surgically absent. The common bile duct measures 0.5 cm. PANCREAS: Largely secured by bowel gas. KIDNEYS: Right: Measures 8.9 cm in length. Left: Measures 7 cm in length. Other: No hydronephrosis or solid mass lesion identified. Left kidney limited secondary to bowel gas. SPLEEN: No splenomegaly. PERITONEUM: No free fluid. VASCULATURE: Aorta: Obscured by bowel gas. Interior vena cava: Visualized portions appear unremarkable. Portal Vein: Nondilated with hepatopedal flow. IMPRESSION: Within limitations of exam, no acute findings. Cholecystectomy changes. Signed by: Dr. Mustapha Hudson MD on 04/06/2017 10:42 AM Dictated By: MUSTAPHA HUDSON MD 1042 Transcribed By: SHANE on 04/06/17 1042 COPY TO: WENDY TERRY STITCHER FEEDER CT BRAIN WO [place] [address] Patient Name: SONAM NAVARRETE MR #: [id number] : 1985 Age/Sex: 31/F Req #: [id number] Adm Physician: JOHN BAHENA MD Ordered by: Wendy Terry STITCHER FEEDER Report #: [id number] Location: MED/SURG2 Room/Bed: [facility] Procedure : [id number] CT/CT BRAIN WO Exam Date: 04/04/17 Exam Time: 1800 REPORT STATUS: Signed History: Chronic left weakness for 6 months Comparison studies: CT brain from 02/13/2017. Technique: Axial images were obtained from the skull base to the vertex. Coronal and sagittal reconstructions obtained from the axial data. Findings: Scalp /skull: No abnormalities. No fractures, blastic or lytic lesions. Extra- axial spaces: No masses. No fluid collections. Brain sulci: Appropriate for age. Ventricles: Cavum velum interpositum. Normal in size and configuration. No hydrocephalus. Parenchyma: No abnormal densities. No masses, hemorrhage, acute or chronic cortical vascular insults. Sellar /suprasellar region: No abnormalities Craniocervical junction: Patent foramen magnum. No Chiari one malformation. IMPRESSION: No intracranial abnormality. A preliminary report was given by Neuroradiology fellow Dr. Estrada at 6:45 PM on 04/04/2017. I have reviewed the study and agree with the findings in the preliminary report. Signed by: Dr. Margaret Faust M.D. on 04/04/2017 8:04 PM Dictated By: MARGARET FAUST MD 03 Transcribed By: SHANE on 04/04/172003 COPY TO: WENDY TERRY NP CHEST SINGLE (PORTABLE) [place] [address] Patient Name: SONAM NAVARRETE MR #: [id number] : 1985 Age/Sex: 31/F Req #: [id number] Adm Physician: Ordered by: SAM FRANCO MD Report #: [id number] Location: ER Room/Bed: Procedure: [id number] DX/CHEST SINGLE (PORTABLE) Exam Date: 03/30/17 Exam Time: 0000 REPORT STATUS: Signed CHEST SINGLE (PORTABLE), 03/29/2017 11 :32 PM Technique: CHEST SINGLE (PORTABLE) Comparison: 02/19/2017 Clinical history: Shortness of breath Findings: See Impression Impression: 1. Lines/Tubes: Placement of left chest wall midline/presternal single-lead ICD. Stable left port and right central venous catheter projecting near the high right atrium/cavoatrial junction and SVC, respectively. 2. Stable mild cardiomegaly. 3. No overt edema or consolidation. No significant effusion. Signed by: Dr Zoe Florian MD on 03/30/2017 12:23 AM Dictated By: ZOE FLORIAN MD Transcribed By: SHANE on 03/30 COPY TO: SAM FRANCO MD CHEST SINGLE (PORTABLE) [place] [address] Patient Name: SONAM NAVARRETE MR #: [id number] : Age/Sex: 31/F Req #: [id number] Adm Physician: Ordered by: SAM FRANCO MD Report #: [id number] Location: ER Room/Bed : Procedure: [id number] DX/CHEST SINGLE (PORTABLE) Exam Date: 02/19/17 Exam Time: 0820 REPORT STATUS: Signed PROCEDURE: A single AP view of the chest. COMPARISON: [facility], , CHEST SINGLE (PORTABLE), 02/13/2017, 19:39. INDICATIONS: SEIZURES, SYNCOPE, VAGINAL BLEEDING FINDINGS: Lines/tubes: Unchanged left subclavian chest port with the tip overlying the right atrium. Right EJ/IJ split tip dual-lumen tunneled hemodialysis catheter is unchanged with the tips overlying the SVC. Lungs: Moderate pulmonary edema. Pleura: There is no pleural effusion or pneumothorax. Heart and mediastinum: The heart is enlarged. Bones: No acute bony abnormality. IMPRESSION: Cardiomegaly with moderate pulmonary edema. Booker Valle D.O. Dictated by: Booker Valle D.O. on 02/19 at 8:58 Electronically approved by: Booker Valle D.O. on 2016 at 8:58 Dictated By: BOOKER VALLE DO 7 Transcribed By: ATTILA on 02/19/17857 COPY TO: SAM FRANCO MD CHEST SINGLE (PORTABLE) [place] [address] Patient Name: SONAM NAVARRETE MR #: [id number] : [birth year] Age/Sex: 31/F Req #: [id number] Adm Physician: Ordered by: MAGNO MORFIN STITCHER FEEDER Report #: [id number] Location: ER Room/Bed: Procedure: [id number] DX/CHEST SINGLE (PORTABLE) Exam Date: 02/13/17 Exam Time: 2039 REPORT STATUS: Signed CHEST SINGLE (PORTABLE), 02/13/2017 8:25 PM Technique: CHEST SINGLE (PORTABLE) Comparison: 01/23/2017 Clinical history: S right chest wall pain s/p fall yesterday S [id number] Findings: See Impression Impression: 1. Lines/Tubes: Stable left port and right central venous catheter projecting over the cavoatrial junction and SVC, respectively. 2. Stable mild cardiomegaly. 3. Low volumes with central vascular congestion and/or mild edema. No significant effusion. 4. No acute bony abnormality seen on provided portable view. Signed by: Dr Zoe Florian MD on 02/13/2017 9:46 PM Dictated By: ZOE FLORIAN MD 45 Transcribed By: SHANE on 02/13/172145 COPY TO: MAGNO MORFIN STITCHER FEEDER CT ABDOMEN/ PELVIS [place] [address] Patient Name: SONAM NAVARRETE MR #: [id number] : 1985 Age/Sex: 31/F Req #: [id number] Adm Physician: Ordered by: MAGNO MORFIN STITCHER FEEDER Report #: [id number] Location: ER Room/Bed: Procedure: [id number] CT/CT ABDOMEN/PELVIS WO Exam Date: 02/13/17 Exam Time: 1944 REPORT STATUS: Signed EXAMINATION: CT of the abdomen and pelvis without contrast. TECHNIQUE: Helical CT images of the abdomen and pelvis were performed from the lung bases to the lesser trochanters. No intravenous contrast was given per renal stone protocol. Coronal and sagittal reformatted images were obtained. COMPARISON: None. CLINICAL HISTORY:Fall, flank pain DISCUSSION: ABSENCE OF INTRAVENOUS CONTRAST DECREASES SENSITIVITY FOR DETECTION OF FOCAL LESIONS AND VASCULAR PATHOLOGY. ABDOMEN/PELVIS: LOWER THORAX: Lower lung atelectasis. Cardiomegaly. HEPATOBILIARY:No focal lesions. No ductal dilatation. Cholecystectomy. SPLEEN: No splenomegaly. PANCREAS: No focal masses or ductal dilatation. ADRENALS: No adrenal nodules. KIDNEYS/URETERS: No hydronephrosis, stones, or solid mass lesions. PELVIC ORGANS/BLADDER: Air within the bladder lumen. PERITONEUM/RETROPERITONEUM: Mesenteric edema. Mild pelvic ascites. LYMPH NODES: No intra-abdominal,retroperitoneal , pelvic or inguinal lymphadenopathy. VESSELS: The celiac trunk,superior and inferior mesenteric and bilateral renal arteries are patent The portal, superior mesenteric and splenic veins are patent. GI TRACT: No distention or wall thickening. BONES AND SOFT TISSUES: Soft tissue edema. IMPRESSION: Mild volume overload. No acute noncontrast CT finding. Signed by: Dr. Rosa Hardy M.D. on 02/13/2017 8:29 PM Dictated By: ROSA HARDY MD 28 Transcribed By: SHANE on 02/13/172028 COPY TO: MAGNO MORFIN NP CT CERVICAL SPINE WO [place] [address] Patient Name: SONAM NAVARRETE MR #: [id number] : 1985 Age/Sex: 31/F Req #: [id number] Adm Physician: Ordered by: MAGNO MORFIN [employer]ER Report #: [id number] Location: ER Room/Bed: ___ Procedure: [id number] CT/CT CERVICAL SPINE WO Exam Date: 02/13/17 Exam Time: 1944 REPORT STATUS: Signed History: Fall, hit the head, pain, dizziness and headache Comparison studies:MRI brain 02/07/[address] head 02/05/2017 Technique: Axial images were obtained from the brain and cervical spine. Coronal and sagittal images reconstructed from the axial data. Intravenous contrast: None Findings: Head CT: Scalp/skull: No abnormalities. No fractures, blastic or lytic lesions. Brain sulci: Appropriate for age. Ventricles: Normal in size and configuration. No hydrocephalus. Extra-axial spaces: No masses. No fluid collections. Cavum septum pellucidum as a normal variant Parenchyma: No abnormal densities. No masses, hemorrhage, acute or chronic cortical vascular insults. Sellar/suprasellar region: No abnormalities. Craniocervical junction: Patent foramen magnum. No Chiari one malformation. Cervical spine CT: Fractures: None. Soft tissues: No gross abnormalities. Atlantoaxial articulation: Intact. Alignment: Normal lordosis. No scoliosis. Cervicomedullary junction: No abnormalities. Patent foramen magnum. Vertebrae: No infection or neoplasm. Degenerative changes: None. Incidental findings: Right internal jugular vein and left subclavian catheters are partially visualized. Impression: Head CT: 1. No intracranial abnormality. Cervical spine CT: 1. No acute abnormalities. 2. Cannot exclude ligament, spinal cord and or vascular abnormalities on the basis of this examination. Signed by: DR Carlos Ahuja M.D. on 02/13/2017 8:54 PM Dictated By: CARLOS SOLIS MD 53 Transcribed By: SHANE on 02/13/172053 COPY TO: MAGNO MORFIN NP CT BRAIN WO [place] [id number] [place] [address] Patient Name: SONAM NAVARRETE MR #: [id number] : 1985 Age/Sex: 31/F Req #: [id number] Adm Physician: Ordered by: MAGNO MORFIN NP Report #: [id number] Location: ER Room/Bed: Procedure: [id number] CT/CT BRAIN WO Exam Date: 02/13/17 Exam Time: 1944 REPORT STATUS: Signed History: Fall, hit the head, pain, dizziness and headache Comparison studies:MRI brain 02/07/[address] head 02/05/2017 Technique: Axial images were obtained from the brain and cervical spine. Coronal and sagittal images reconstructed from the axial data. Intravenous contrast: None Findings: Head CT: Scalp/skull: No abnormalities. No fractures, blastic or lytic lesions. Brain sulci: Appropriate for age. Ventricles: Normal in size and configuration. No hydrocephalus. Extra-axial spaces: No masses. No fluid collections. Cavum septum pellucidum as a normal variant Parenchyma: No abnormal densities. No masses, hemorrhage, acute or chronic cortical vascular insults. Sellar/suprasellar region: No abnormalities. Craniocervical junction: Patent foramen magnum. No Chiari one malformation. Cervical spine CT: Fractures: None. Soft tissues: No gross abnormalities. Atlantoaxial articulation: Intact. Alignment: Normal lordosis. No scoliosis. Cervicomedullary junction: No abnormalities. Patent foramen magnum. Vertebrae: No infection or neoplasm. Degenerative changes: None. Incidental findings: Right internal jugular vein and left subclavian catheters are partially visualized. Impression: Head CT: 1. No intracranial abnormality. Cervical spine CT: 1. No acute abnormalities. 2. Cannot exclude ligament, spinal cord and or vascular abnormalities on the basis of this examination. Signed by: DR Carlos Ahuja M.D. on 02/13/2017 8:54 PM Dictated By: CARLOS SOLIS MD 53 Transcribed By: SHANE on 2053 COPY TO: MAGNO MORFIN NP CHEST 2 VIEWS [place] [address] Patient Name: SONAM NAVARRETE MR #: [id number] : 1985 Age/Sex: 31/F Req #: [id number] Adm Physician: JOHN BAHENA MD Ordered by: SOULEYMANE BRAN MD Report #: [id number] Location: MED/SURG Room/Bed: [facility] Procedure: [id number] DX/CHEST 2 VIEWS Exam Date: 02/07/17 Exam Time: 1220 REPORT STATUS: Signed PROCEDURE: Frontal and lateral views of the chest. COMPARISON: Chest x-ray 01/23/2017. INDICATIONS: ANEMIA, CHRONIC RENAL DISEASE FINDINGS: Lines/tubes: Right IJ dialysis catheter with tip at low SVC and left-sided portacatheter with tip at the atriocaval junction remain unchanged. Lungs: Lungs are hypoinflated. Increasing diffuse airspace opacities. Pleura: Likely a small left pleural effusion. Heart and mediastinum: Severe cardiomegaly. Bones: No acute bony abnormality. IMPRESSION: 1. Severe cardiomegaly. This may be related to dilated cardiomyopathy versus pericardial effusion. 2. Worsening diffuse pulmonary edema. Dictated by : Brandon Courtney M.D. on 02/07/2017 at 12:43 Electronically approved by: Brandon Courtney M.D. on 02/07/2017 at 12:43 Dictated By: BRANDON COURTNEY MD 1243 Transcribed By: ATTILA on 02/07/17 1243 COPY TO: SOULEYMANE BRAN MD MRI BRAIN WO [place] [address] Patient Name: SONAM NAVARRETE MR #: [id number] : 1985 Age/Sex: 31/F Req #: [id number] Adm Physician: JOHN BAHENA MD Ordered by: CONSTANZA CHAN [employer]ER Report #: [id number] Location: MED/SURG2 Room/Bed: [facility] Procedure : [id number] MRI/MRI BRAIN WO Exam Date: Exam Time: REPORT STATUS: Signed EXAMINATION: MRI of the brain without contrast. HISTORY: Slurred speech COMPARISON: Head CT report from TECHNIQUE: Sagittal T2; axial DWI, T2, FLAIR, T1-IR, T2 gradient echo ; coronal FLAIR. IMAGE QUALITY: Adequate. FINDINGS: Parenchyma: 1. No abnormal signal intensity 2. No mass, hemorrhage, acute or chronic infarcts. Skull: Unremarkable. Vessels : Expected flow voids present in the major arteries and dural sinuses. Extra-axial spaces: No abnormal signal intensity or mass effect. Brain volume: Within normal limits for age. Ventricles: No hydrocephalus or displacement. Foramen magnum: Unremarkable. Sella: Unremarkable. Paranasal / mastoid sinuses: No significant inflammatory disease. IMPRESSION: Normal brain MRI, no acute infarcts. Previously seen questionable left temporal lesion is not seen on the MRI, it represented an artifact. Signed by: Dr. Yamileth Ye M.D. on 02/07/2017 3:34 PM Dictated By: YAMILETH YE MD 33 COPY TO: CONSTANZA CHAN NP US PELVIC (NON OB) KHANNA OR F/U [place] [address] Patient Name: SONAM NAVARRETE MR #: [id number] : 1985 Age/Sex: / F Req #: [id number] Adm Physician: JOHN BAHENA MD Ordered by: GAYLE ABEL Report #: [id number] Location: MED/SURG2 Room/Bed: [facility] Procedure: [id number] US/US PELVIC ( NON OB) KHANNA OR F/U Exam Date: Exam Time: REPORT STATUS: Signed PROCEDURE: US PELVIC (NON OB) KHANNA OR F/U COMPARISON : CT abdomen and pelvis 01/31/2017. INDICATIONS: Fever TECHNIQUE: Grayscale transverse and sagittal transabdominal images were obtained of the pelvis. FINDINGS: Bladder: Gonzalez catheter in place. Limited. 5.7 x 2.6 x 5.8 cm for a volume of 59 mL. Limited evaluation of the pelvis secondary to bowel loops. CONCLUSION: Unremarkable bladder with a Gonzalez catheter in place. Limited views of the pelvis secondary to bowel loops. Dictated by: Brandon Courtney M.D. on 02/07/2017 at 16:32 Electronically approved by: Brandon Courtney M.D. on 02/07/2017 at 16:32 Dictated By: BRANDON COURTNEY MD 31 Transcribed By: ATTILA on 02/07/171631 COPY TO: GAYLE ABEL CT BRAIN WO [place] [address] Patient Name: SONAM NAVARRETE MR #: [id number] : 1985 Age/Sex: 31/F Req #: [id number] Adm Physician: JOHN BAHENA MD Ordered by: CONSTANZA CHAN [employer] FE[employer]ER Report #: [id number] Location: MED/SURG2 Room/Bed: [facility] Procedure: [id number] CT/CT BRAIN WO Exam Date: Exam Time: 1333 REPORT STATUS: Signed EXAMINATION: Head CT without contrast HISTORY: Slurred speech. Evaluate for stroke, chronic renal failure COMPARISON: Head CT on 10/23/2015 TECHNIQUE : Multidetector axial images were obtained without contrast from the foramen magnum to the vertex . The images were reconstructed using brain and bone algorithms. Thin section brain images were reformatted into coronal and sagittal planes. Motion/streaking artifact limits the evaluation of the skull base and posterior cranial fossa. FINDINGS: Parenchyma: 1. Questionable cortical subcortical hypodensity in the left posterior-inferior temporal gyrus may represent encephalomalacia versus artifact. Otherwise no abnormal densities. 2. No mass or hemorrhage. No CT evidence of acute territorial vascular insult. Extra-axial spaces:No abnormal density. No extra-axial fluid collections Brain volume: Mild generalized brain volume loss, slightly more than what is expected for patient 's age, which may be related to known chronic renal failure. Ventricles: No hydrocephalus or displacement. Arteries: No density suggestive of thrombus. Dural sinuses: No abnormal density. Extra-axial spaces: No abnormal density. Foramen magnum: No mass, Chiari malformation, or basilar invagination. Sella: No obvious mass. Paranasal/mastoid sinuses: Imaged portions unremarkable. Skull/ Scalp: No lytic or blastic lesions. No fractures. IMPRESSION: 1. No acute intracranial abnormalities, particularly no hemorrhage or acute territorial cortical vascular insult. 2. Questionable left posterior- inferior temporal hypodensity as detailed above. Signed by: Dr. Yamileth Ye M.D. on 02/05/2017 2:34 PM Dictated By: YAMILETH YE MD 33 Transcribed By: SHANE on 02/05/171433 COPY TO: CONSTANZA CHAN NP CT ABDOMEN/ PELVIS WO [place] [address] Patient Name: SONAM NAVARRETE MR #: [id number] : 1985 Age/Sex: 31/F Req #: [id number] Adm Physician: JOHN BAHENA MD Ordered by: BEREKET BARCLAY MD Report #: [id number] Location: [facility] Room/Bed: [facility] _ Procedure: [id number] CT/CT ABDOMEN/PELVIS WO Exam Date: 01/31/17 Exam Time: 1934 REPORT STATUS: Signed EXAM: CT Abdomen and Pelvis WITH contrast INDICATION: Left lower quadrant abdominal pain for several days COMPARISON: None. TECHNIQUE: Abdomen and pelvis were scanned utilizing a multidetector helical scanner from the lung base to the pubic symphysis after administration of IV contrast. Coronal and sagittal reformations were obtained. Routine protocol is performed. IV CONTRAST: None. ORAL CONTRAST: Isovue-300 RADIATION DOSE: Total DLP: 301.07 mGy*cm Estimated effective dose: (DLP x 0.015 x size factor) mSv COMPLICATIONS: None FINDINGS: Evaluation is limited by the lack of intravenous contrast. LINES and TUBES : None. LOWER THORAX: Cardiomegaly. Patchy groundglass opacities in the lung bases. HEPATOBILIARY: No focal hepatic lesions. No biliary ductal dilation. GALLBLADDER: Absent SPLEEN: No splenomegaly. PANCREAS: No focal masses or ductal dilatation. ADRENALS: No adrenal nodules KIDNEYS/URETERS: Bilateral perinephric stranding which is nonspecific. No hydronephrosis. No cystic or solid mass lesions. No stones. GI TRACT: No abnormal distention, wall thickening, or evidence of bowel obstruction. Appendix is normal. PELVIC ORGANS/BLADDER: The bladder is collapsed. There is a Gonzalez catheter. LYMPH NODES: No lymphadenopathy. VESSELS: Unremarkable. PERITONEUM / RETROPERITONEUM: No free air or fluid. BONES: Unremarkable. SOFT TISSUES: Unremarkable. IMPRESSION: 1. Nonspecific bilateral perinephric stranding. Correlate for evidence of urinary tract infection. 2. No other specific findings to explain the patient's abdominal pain. No evidence of abscess. 3. Cardiomegaly with patchy groundglass opacities in the lung bases, suggesting edema. Two view chest radiograph may be helpful for further evaluation. Bouchra Lao MD Signed by: Dr. Bouchra Lao M.D. on 01/31/2017 8:08 PM Dictated By: BOUCHRA LAO MD 07 Transcribed By: SHANE on 01/31/172007 COPY TO: BEREKET BARCLAY MD MRI SHOULDER LEFT WO [place] [address] Patient Name: SONAM NAVARRETE MR #: [id number] : 1985 Age/Sex: 31/F Req #: [id number] Adm Physician: JOHN BAHENA MD Ordered by: LOREN VILLAVICENCIO STITCHER FEEDER Report #: [id number] Location: MED/SURG2 Room/Bed: 207-1 _ Procedure: [id number] MRI/MRI SHOULDER LEFT WO Exam Date: Exam Time: REPORT STATUS: Signed TECHNIQUE: Magnetic resonance imaging of the LEFT SHOULDER was performed WITHOUT injected contrast. COMPARISON: None available. HISTORY: Pain FINDINGS: MUSCLES AND TENDONS: Rotator Cuff: Tendons: Supraspinatus: Intact Infraspinatus: Intact Teres Minor: Intact Subscapularis: Intact Muscles: No focal muscle atrophy. Biceps Tendon: The long head of the biceps tendon is intact and within the intertubercular groove. GLENOHUMERAL JOINT: Glenoid Labrum: Superior labral tearing. Articular Cartilage: No focal defect. AC JOINT AND ACROMION: No hypertrophic degenerative changes of the acromioclavicular joint. The acromion is unremarkable. BONE: No focal or infiltrative bone marrow replacing abnormality. No acute fracture. SOFT TISSUES: Infiltration of the rotator interval and axillary recess. IMPRESSION: Superior labral tearing. Intact rotator cuff. Findings of adhesive capsulitis. Signed by: Dr. Rosa Hardy M.D. on 01/30/2017 4:32 PM Dictated By: ROSA HARDY MD 163 Transcribed By: SHANE on 01/30/17 163 COPY TO: LOREN VILLAVICENCIO NP CHEST [facility] (PORTABLE) [place] [address] Patient Name: SONAM NAVARRETE MR #: [id number] : 1985 Age/Sex: 31/ F Req #: [id number] Adm Physician: Ordered by: MIREILLE AMOR MD Report #: [id number] Location: ER Room/Bed: ___ Procedure: [id number] DX/CHEST SINGLE (PORTABLE) Exam Date: 01/23/17 Exam Time: 0200 REPORT STATUS: Signed CHEST SINGLE (PORTABLE), 01/23/2017 1:50 AM Technique: CHEST SINGLE (PORTABLE) Comparison: 12/16/2016 Clinical history: Fever Findings: See Impression Impression: 1. Lines/Tubes: Left port tip overlies the cavoatrial junction. Right hemodialysis central venous catheter projects over the SVC. 2. Stable mild cardiomegaly. 3. Diffuse bilateral opacities, favor edema. No significant effusion appreciated on portable technique. Signed by: Dr Zoe Florian MD on 01/23/2017 2:20 AM Dictated By: ZOE FLORIAN MD 9 Transcribed By: SHANE on 01/23/17219 COPY TO: MIREILLE AMOR MD CHEST SINGLE ( PORTABLE) [place] [address] Patient Name: SONAM NAVARRETE MR #: [id number] : 1985 Age/Sex: 31/F Req #: [id number] Adm Physician: Ordered by: SAM FRANCO MD Report #: [id number] Location: ER Room/Bed: Procedure: DX/CHEST SINGLE (PORTABLE) Exam Date: 01/01/17 Exam Time: 1810 REPORT STATUS: Signed PROCEDURE: A single AP view of the chest. COMPARISON: Chest x-ray 12/18/2016. INDICATIONS: PAIN FINDINGS: Lines/tubes: Right tunneled dialysis catheter with short tubing and mid SVC and long tubing at low SVC is unchanged. Left-sided portacatheter with tip at the atrial caval junction. Lungs: The lungs are moderately inflated and clear. Mild central pulmonary venous congestion. Pleura: There is no pleural effusion or pneumothorax. Heart and mediastinum: Mild cardiomegaly. Bones: No acute bony abnormality. IMPRESSION: Mild central pulmonary venous congestion with mild cardiomegaly. Dictated by: Brandon Courtney M.D. on 01/01/2017 at 18:46 Electronically approved by: Brandon Courtney M.D. on 01/01/2017 at 18:46 Dictated By: BRANDON COURTNEY MD 45 Transcribed By: ATTILA on 01/01/171845 COPY TO: SAM FRANCO MD CHEST SINGLE (PORTABLE) [place] [address] Patient Name: SONAM NAVARRETE MR #: [id number] : 1985 Age/Sex: 31/F Req #: [id number] Adm Physician: JOHN BAHENA MD Ordered by: PALLAVI BARRIENTOS MD Report #: [id number] Location: MED/SURG3 Room/Bed: [facility] Procedure: DX/CHEST SINGLE (PORTABLE) Exam Date: 12/18/16 Exam Time: 1150 REPORT STATUS: Signed PROCEDURE: CHEST SINGLE (PORTABLE) COMPARISON: Chest radiograph 2016, images from fluoroscopic guidance central venous catheter placement 12/16. INDICATIONS: LINE PLACEMENT FINDINGS: Interval exchange of right internal jugular high flow central venous catheter. The catheter tip projects over the upper right atrium. Temporary right internal jugular hemodialysis catheter has been removed. Left subclavian central venous port catheter tip projects over the mid superior vena cava. Persistent cardiomegaly with retrocardiac opacity, likely atelectasis. Interstitial pulmonary edema similar in degree to that noted on 12/16/2016. CONCLUSION : Interval exchange of right internal jugular tunneled hemodialysis catheter, with the tip projecting over the upper right atrium. Temporary right internal jugular hemodialysis catheter has been removed. Cardiomegaly with interstitial pulmonary edema, similar in degree to that noted on 12/16/2016. Dictated by: Pallavi Villeda M.D. on 12/18/2016 at 13:10 Electronically approved by: Pallavi Villeda M.D. on 12/18/2016 at 13:10 Dictated By: PALLAVI VILLEDA MD 1310 Transcribed By: ATTILA on 12/18/16 1310 COPY TO : PALLAVI BARRIENTOS MD NON-TUNNELLED CVC CATH PLACMNT [place] [address] Patient Name: SONAM NAVARRETE MR #: [id number] : 1985 Age/ Sex: 31/F Req #: [id number] Adm Physician: Ordered by : SAM FRANCO MD Report #: [id number] Location: ER Room/Bed: Procedure: [id number] IR/NON-TUNNELLED CVC CATH PLACMNT Exam Date: Exam Time: REPORT STATUS: Signed Date and Time: 12/16/2016 Procedure: Temporary triple-lumen hi flow central venous catheter placement circular shear operator: Dr. Villeda Pre- operative diagnosis: End-stage renal disease, nonfunctioning tunneled hemodialysis catheter Post-operative diagnosis: End-stage renal disease, nonfunctioning tunneled hemodialysis catheter Conscious Sedation: None Additional Medications: Lidocaine 1% for local anesthesia Fluoroscopy time: 1.6 minutes Frontal Air Kerma: 28.5 mGy Contrast used: None Estimated blood loss: 5 cc Blood products administered: None Specimens: None Implants: 13 Martiniquais, 15 cm triple-lumen hi flow central venous catheter Condition at completion of procedure: Stable Disposition: Return to emergency center DISCUSSION: Informed consent for the procedure was obtained from the patient and documented in the medical record. The patient was placed in the supine position on the fluoroscopic table. Preliminary sonographic evaluation confirmed patency of the right internal jugular vein, evidenced by compressibility, with a small amount of echogenic, nonocclusive thrombus at the level of the thoracic inlet along the existing tunneled hemodialysis catheter. The right cervical region was then prepped and draped in the standard sterile fashion. 1% lidocaine was infiltrated into the skin and subcutaneous tissues for local anesthesia. Then, under continuous sonographic guidance, an 18-gauge singlewall needle was used to access the right internal jugular vein. A permanent sonographic image was stored in the medical record. A 0.0 3 5-in. J-wire was then advanced through the needle into the right atrium. The needle was removed and the tract was serially dilated. A 13 Martiniquais, 15 cm triple-lumen hi flow central venous catheter was then advanced over the wire to a depth of 14 cm. The wire was removed and the tip was positioned at the superior cavoatrial junction. Each lumen was tested and showed brisk bidirectional flow. All 3 lumens were then flushed with sterile saline. The catheter was secured to the skin with monofilament nylon suture and a sterile dressing was applied. The patient tolerated the procedure well without immediate complication. FINDINGS: Patent right internal jugular vein, with a small amount of nonocclusive thrombus at the level of the thoracic inlet, along the indwelling tunneled hemodialysis catheter. IMPRESSION: Successful placement of a 13 Martiniquais, 15 cm triple-lumen hi flow central venous catheter ( Trialysis catheter) by a right internal jugular approach under sonographic and fluoroscopic guidance. The catheter may be used immediately for emergent hemodialysis and additional resuscitation, with plans for exchange of the nonfunctioning tunneled hemodialysis catheter by the interventional radiology service on 12/18/2016 in the [employer]. Plan was discussed by telephone with Dr. Franco of the emergency center, who verbalized agreement. Signed by: Dr. Pallavi Villeda M.D. on 12/16/2016 5:28 PM Dictated By: PALLAVI VILLEDA MD 27 Transcribed By: SHANE on 12/16/161727 COPY TO: SAM FRANCO MD FLU[employer]O [employer]ANCE [address]/REM [place] [address] Patient Name: SONAM NAVARRETE MR #: [id number] : 1985 Age/Sex: 31/F Req #: [id number] Adm Physician: Ordered by: SAM FRANCO MD Report #: [id number] Location: ER Room/Bed: ___ Procedure: [id number] DX/FLUORO GUIDANCE [address]/REM Exam Date: Exam Time: REPORT STATUS: Signed Date and Time : 12/16/2016 Procedure: Temporary triple-lumen hi flow central venous catheter placement circular shear operator: Dr. Villeda Pre-operative diagnosis: End-stage renal disease, nonfunctioning tunneled hemodialysis catheter Post-operative diagnosis: End-stage renal disease, nonfunctioning tunneled hemodialysis catheter Conscious Sedation: None Additional Medications: Lidocaine 1% for local anesthesia Fluoroscopy time: 1.6 minutes Frontal Air Kerma: 28.5 mGy Contrast used: None Estimated blood loss: 5 cc Blood products administered: None Specimens: None Implants: 13 Martiniquais, 15 cm triple-lumen hi flow central venous catheter Condition at completion of procedure: Stable Disposition: Return to emergency center DISCUSSION: Informed consent for the procedure was obtained from the patient and documented in the medical record. The patient was placed in the supine position on the fluoroscopic table. Preliminary sonographic evaluation confirmed patency of the right internal jugular vein, evidenced by compressibility, with a small amount of echogenic, nonocclusive thrombus at the level of the thoracic inlet along the existing tunneled hemodialysis catheter. The right cervical region was then prepped and draped in the standard sterile fashion. 1% lidocaine was infiltrated into the skin and subcutaneous tissues for local anesthesia. Then, under continuous sonographic guidance, an 18-gauge singlewall needle was used to access the right internal jugular vein. A permanent sonographic image was stored in the medical record. A 0.0 3 5-in. J-wire was then advanced through the needle into the right atrium. The needle was removed and the tract was serially dilated. A 13 Martiniquais, 15 cm triple-lumen hi flow central venous catheter was then advanced over the wire to a depth of 14 cm. The wire was removed and the tip was positioned at the superior cavoatrial junction. Each lumen was tested and showed brisk bidirectional flow. All 3 lumens were then flushed with sterile saline. The catheter was secured to the skin with monofilament nylon suture and a sterile dressing was applied. The patient tolerated the procedure well without immediate complication. FINDINGS: Patent right internal jugular vein, with a small amount of nonocclusive thrombus at the level of the thoracic inlet, along the indwelling tunneled hemodialysis catheter. IMPRESSION: Successful placement of a 13 Martiniquais , 15 cm triple-lumen hi flow central venous catheter (Trialysis catheter) by a right internal jugular approach under sonographic and fluoroscopic guidance. The catheter may be used immediately for emergent hemodialysis and additional resuscitation, with plans for exchange of the nonfunctioning tunneled hemodialysis catheter by the interventional radiology service on 2016 in the [employer]. Plan was discussed by telephone with Dr. Franco of the emergency center, who verbalized agreement. Signed by: Dr. Pallavi Villeda M.D. on 12/16/2016 5:28 PM Dictated By: PALLAVI VILLEDA MD [id number] Transcribed By: SHANE on 12/16/16 1208 COPY TO: SAM FRANCO MD IR CONSULT [place] [address] Patient Name: SONAM NAVARRETE MR #: [id number] : 1985 Age/Sex: 31/F Req #: [id number] Adm Physician: Ordered by: SAM FRANCO MD Report #: [id number] Location: ER Room/Bed: Procedure: [id number] DX/IR CONSULT Exam Date: Exam Time: REPORT STATUS: Signed Date and Time: 12/16/2016 Procedure: Temporary triple- lumen hi flow central venous catheter placement circular shear operator: Dr. Villeda Pre-operative diagnosis: End-stage renal disease, nonfunctioning tunneled hemodialysis catheter Post-operative diagnosis: End-stage renal disease, nonfunctioning tunneled hemodialysis catheter Conscious Sedation : None Additional Medications: Lidocaine 1% for local anesthesia Fluoroscopy time: 1.6 minutes Frontal Air Kerma: 28.5 mGy Contrast used: None Estimated blood loss: 5 cc Blood products administered: None Specimens: None Implants: 13 Martiniquais, 15 cm triple-lumen hi flow central venous catheter Condition at completion of procedure: Stable Disposition: Return to emergency center DISCUSSION: Informed consent for the procedure was obtained from the patient and documented in the medical record. The patient was placed in the supine position on the fluoroscopic table. Preliminary sonographic evaluation confirmed patency of the right internal jugular vein, evidenced by compressibility, with a small amount of echogenic, nonocclusive thrombus at the level of the thoracic inlet along the existing tunneled hemodialysis catheter. The right cervical region was then prepped and draped in the standard sterile fashion. 1% lidocaine was infiltrated into the skin and subcutaneous tissues for local anesthesia. Then, under continuous sonographic guidance, an 18-gauge singlewall needle was used to access the right internal jugular vein. A permanent sonographic image was stored in the medical record. A 0.0 3 5-in. J-wire was then advanced through the needle into the right atrium. The needle was removed and the tract was serially dilated. A 13 Martiniquais, 15 cm triple-lumen hi flow central venous catheter was then advanced over the wire to a depth of 14 cm. The wire was removed and the tip was positioned at the superior cavoatrial junction. Each lumen was tested and showed brisk bidirectional flow. All 3 lumens were then flushed with sterile saline. The catheter was secured to the skin with monofilament nylon suture and a sterile dressing was applied. The patient tolerated the procedure well without immediate complication. FINDINGS: Patent right internal jugular vein, with a small amount of nonocclusive thrombus at the level of the thoracic inlet, along the indwelling tunneled hemodialysis catheter. IMPRESSION: Successful placement of a 13 Martiniquais, 15 cm triple-lumen hi flow central venous catheter ( Trialysis catheter) by a right internal jugular approach under sonographic and fluoroscopic guidance. The catheter may be used immediately for emergent hemodialysis and additional resuscitation, with plans for exchange of the nonfunctioning tunneled hemodialysis catheter by the interventional radiology service on 12/18/2016 in the [employer]. Plan was discussed by telephone with Dr. Franco of the emergency center, who verbalized agreement. Signed by: Dr. Pallavi Villeda M.D. on 12/16/2016 5:28 PM Dictated By: PALLAVI VILLEDA MD 27 Transcribed By: SHANE on 12/16/161727 COPY TO: SAM FRANCO MD [facility] (PORTABLE) [place] [address] Patient Name: SONAM NAVARRETE MR #: [id number] : 1985 Age/Sex: 31/F Req #: [id number] Adm Physician: Ordered by: SAM FRANCO MD Report #: [id number] Location: ER Room/Bed: Procedure: [id number] DX/CHEST SINGLE (PORTABLE) Exam Date: 12/16/16 Exam Time: 1435 REPORT STATUS: Signed EXAM: Single AP view of the chest (Portable). COMPARISON: Chest radiograph from 06/12/2016 INDICATION: Shortness of breath FINDINGS: Single portable AP view of the chest. The visualized bones and soft tissues, cardiac silhouette appear unchanged. IMPRESSION: 1. Lines/tubes: Unchanged right IJ hemodialysis catheter with tip overlying the mid right atrium and left-sided chest port with tip overlying the mid SVC. 2. Interval development of bilateral pulmonary edema and small bilateral pleural effusions. 3. Stable moderate enlargement of the cardiac silhouette. Signed by: Dr. Bonita Anaya M.D. on 12/16/2016 2:56 PM Dictated By: BONITA ANAYA MD 1455 Transcribed By: SAHNE on 12/16/16 145 COPY TO: SAM FRANCO MD GUIDANCE FOR VASCULAR ACCES [place] [address] Patient Name: SONAM NAVARRETE MR #: [id number] : 1985 Age/Sex: 31/F Req #: [id number] Adm Physician: Ordered by: SAM FRANCO MD Report #: [id number] Location: ER Room/Bed: Procedure: [id number] US/US GUIDANCE FOR VASCULAR ACCES Exam Date: Exam Time: REPORT STATUS: Signed Date and Time: 2016 Procedure: Temporary triple-lumen hi flow central venous catheter placement circular shear operator: Dr. Villeda Pre-operative diagnosis: End- stage renal disease, nonfunctioning tunneled hemodialysis catheter Post- operative diagnosis: End-stage renal disease, nonfunctioning tunneled hemodialysis catheter Conscious Sedation: None Additional Medications: Lidocaine 1% for local anesthesia Fluoroscopy time: 1.6 minutes Frontal Air Kerma: 28.5 mGy Contrast used: None Estimated blood loss: 5 cc Blood products administered: None Specimens: None Implants: 13 Martiniquais, 15 cm triple-lumen hi flow central venous catheter Condition at completion of procedure: Stable Disposition: Return to emergency center DISCUSSION: Informed consent for the procedure was obtained from the patient and documented in the medical record. The patient was placed in the supine position on the fluoroscopic table. Preliminary sonographic evaluation confirmed patency of the right internal jugular vein, evidenced by compressibility, with a small amount of echogenic, nonocclusive thrombus at the level of the thoracic inlet along the existing tunneled hemodialysis catheter. The right cervical region was then prepped and draped in the standard sterile fashion. 1% lidocaine was infiltrated into the skin and subcutaneous tissues for local anesthesia. Then, under continuous sonographic guidance, an 18-gauge singlewall needle was used to access the right internal jugular vein. A permanent sonographic image was stored in the medical record. A 0.0 3 5-in. J-wire was then advanced through the needle into the right atrium. The needle was removed and the tract was serially dilated. A 13 Martiniquais, 15 cm triple-lumen hi flow central venous catheter was then advanced over the wire to a depth of 14 cm. The wire was removed and the tip was positioned at the superior cavoatrial junction. Each lumen was tested and showed brisk bidirectional flow. All 3 lumens were then flushed with sterile saline. The catheter was secured to the skin with monofilament nylon suture and a sterile dressing was applied. The patient tolerated the procedure well without immediate complication. FINDINGS: Patent right internal jugular vein, with a small amount of nonocclusive thrombus at the level of the thoracic inlet, along the indwelling tunneled hemodialysis catheter. IMPRESSION: Successful placement of a 13 Martiniquais , 15 cm triple-lumen hi flow central venous catheter (Trialysis catheter) by a right internal jugular approach under sonographic and fluoroscopic guidance. The catheter may be used immediately for emergent hemodialysis and additional resuscitation, with plans for exchange of the nonfunctioning tunneled hemodialysis catheter by the interventional radiology service on 2016 in the [employer]. Plan was discussed by telephone with Dr. Franco of the emergency center, who verbalized agreement. Signed by: Dr. Pallavi Villeda M.D. on 12/16/2016 5:28 PM Dictated By: PALLAVI VILLEDA MD 172 Transcribed By: SHANE on 12/16/161727 COPY TO: SAM FRANCO MD
--- OUTSIDE RECORDS SUMMARY | 2017-05-30 16:35 | XMS REPORT | Clinical Summary ---
Author Author KALYAN [facility] Address Unknown Phone Unavailable Care Team Providers Care Product Info Specialist Name Role Phone PCP Unavailable Allergies Active Allergy Reactions Severity Noted Date Comments Adhesive Hives, Itching 10/22/2012 Bruising Aspirin (Tartrazine Only) Hives 09/25/2012 Clonidine Hives 08/22/2016 Hydromorphone (Bulk) Nausea And Vomiting 09/25/2012 Fentanyl Hives 09/25/2012 Hydrocodone Nausea And Vomiting 09/25/2012 Latex 08/22/2016 Penicillins Hives 09/25/2012 Ketorolac Hives 09/25/2012 Tramadol Hives 09/25/2012 Ondansetron Hcl (Pf) Nausea And Vomiting 09/25/2012 Current Medications Prescription Sig. Disp. Refills Start End Date Status Date promethazine (PHENERGAN) Take 25 mg by mouth every Active 25 MG tablet 6 (six) hours as needed. metoprolol (LOPRESSOR) 25 Take 25 mg by mouth 2 Active MG tablet (two) times daily. hydrochlorothiazide Take 25 mg by mouth Active (HYDRODIURIL) 25 MG daily. tablet promethazine (PHENERGAN) Take 25 mg by mouth every Active 25 MG tablet 6 (six) hours as needed. morphine (MS CONTIN) 60 Take 60 mg by mouth 2 Active MG 12 hr tablet (two) times daily. levothyroxine (SYNTHROID, Take 88 mcg by mouth Active LEVOTHROID) 88 MCG tablet daily. metoclopramide HCl Take 10 mg by mouth 4 Active (REGLAN) 10 MG tablet (four) times daily as needed. diazepam (VALIUM) 10 MG Take 10 mg by mouth every Active tablet 6 (six) hours as needed. digoxin (LANOXIN) 0.25 MG Take 250 mcg by mouth Active tablet daily. ranitidine (ZANTAC) 300 Take 300 mg by mouth Active MG capsule every evening. diphenhydrAMINE Take 25 mg by mouth every Active (BENADRYL) 25 mg tablet night as needed. bisacodyl (DULCOLAX) 5 mg Take 5 mg by mouth daily Active EC tablet as needed. methocarbamol (ROBAXIN) Take 500 mg by mouth 4 Active 500 MG tablet (four) times daily. erythromycin base Take 250 mg by mouth 4 Active (E-MYCIN) 250 MG tablet (four) times daily. metFORMIN (GLUCOPHAGE) Take 500 mg by mouth 2 Active 500 MG tablet (two) times daily with breakfast and dinner. sucralfate (CARAFATE) 1 Take 1 g by mouth 4 Active gram tablet (four) times daily. morphine (MSIR) 15 MG Take 15 mg by mouth every Active tablet 4 (four) hours as needed for Pain. LORazepam (ATIVAN) 1 MG Take 1 mg by mouth every Active tablet 6 (six) hours as needed for Anxiety. clonazePAM (KLONOPIN) 0.5 Take 0.5 mg by mouth 2 Active MG tablet (two) times daily as needed for Anxiety. pantoprazole (PROTONIX) Take 40 mg by mouth Active 40 MG tablet daily. carvedilol (COREG) 25 MG Take 25 mg by mouth 2 Active tablet (two) times daily with breakfast and dinner. diltiaZEM (CARDIZEM) 30 Take 30 mg by mouth 4 Active MG tablet (four) times daily. zaleplon (SONATA) 10 MG Take 10 mg by mouth Active capsule nightly. loratadine (CLARITIN) 10 Take 10 mg by mouth Active mg tablet daily. furosemide (LASIX) 40 MG Take 40 mg by mouth 2 Active tablet (two) times daily. meclizine (ANTIVERT) 25 Take 25 mg by mouth 3 Active MG tablet (three) times daily as needed. albuterol Take 2.5 mg by Active (PROVENTIL,VENTOLIN) 5 nebulization every 6 mg/mL nebulizer solution (six) hours as needed for Wheezing. ipratropium-albuterol Take 3 mLs by Active (DUO-NEB) 0.5 mg-3 mg(2.5 nebulization every 6 mg base)/3 mL nebulizer (six) hours as needed for solution Wheezing. insulin glargine (LANTUS) Inject 7 Units Active 100 unit/mL injection subcutaneously nightly Use as directed . diphenoxylate-atropine Take 1 tablet by mouth 4 Active (LOMOTIL) 2.5-0.025 mg (four) times daily as per tablet needed for Diarrhea. cinacalcet (SENSIPAR) 30 Take 30 mg by mouth Active MG tablet daily. ciclesonide (ALVESCO) 80 Inhale 1 puff by mouth Active mcg/actuation inhaler via inhaler 2 (two) times daily. ferrous sulfate 325 (65 Take 325 mg by mouth Active FE) MG tablet daily with breakfast. docusate sodium (COLACE) Take 100 mg by mouth 2 Active 100 MG capsule (two) times daily. gabapentin (NEURONTIN) Take 300 mg by mouth 3 Active 300 MG capsule (three) times daily. Active Problems Problem Noted Date Chronic systolic congestive heart failure (HCC) 08/22/2016 End stage renal disease (HCC) 08/22/2016 IDDM (insulin dependent diabetes mellitus) ([facility]) 08/22/2016 Epilepsy (HCC) 08/22/2016 Anxiety 08/22/2016 Chronic pain due to trauma 08/22/2016 Gastroparesis 08/22/2016 Diabetic polyneuropathy associated with type 1 diabetes mellitus (HCC) 08/22 Secondary hyperparathyroidism of renal origin ([facility]) 08/22/2016 Anemia in chronic kidney disease(285.21) 08/22/2016 Thrombocytopenia ([facility]) 08/22/2016 Pituitary tumor 08/22/2016 Benign hypertension with end-stage renal disease (HCC) 08/22/2016 Neurogenic bladder 08/22/2016 Pre-transplant evaluation for chronic kidney disease 06/26/2016 Encounters Date Type Specialty Care Team Description 10/09/2016 Telephone Transplant Mindi Cooper RN Committee Review (Pt presented to [facility] 10/08/16 and was found to be medically unacceptable candidate for renal transplantation due to multiple comorbidities. Per patient, "I understand because I was told that my heart is weak." Kidney transplant episode closed.) 10/08/2016 Abstract Transplant Augustina Pozo RN 08/22/2016 Evaluation Transplant Jailene Rosenberg MD Pre- transplant evaluation for chronic kidney disease (Primary Dx);Chronic systolic congestive heart failure (HCC);End stage renal disease (HCC);IDDM (insulin dependent diabetes mellitus) (HCC);Nonintractable epilepsy without status epilepticus, unspecified epilepsy type (HCC);Anxiety;Chronic pain due to trauma;Gastroparesis;Diab etic polyneuropathy associated with type 1 diabetes mellitus (HCC) 08/22/2016 Telephone Transplant Ana Coates Appointment ( Unable to leave message on the pts voicemail it's full. Spoke with the patients mother and per the mother they will be here today to see the doctor) 07/19/2016 Evaluation Transplant Anselmo Botello MD Pre-transplant evaluation for chronic kidney disease (Primary Dx) 07/19/2016 Orders Only Lab Anselmo Botello MD Pre-transplant evaluation for chronic kidney disease (Primary Dx) 07/19/2016 Outside Orders Anselmo Botello MD 07/18/2016 Telephone Transplant Ana Coates Appointment ( Spoke with Ms Bermeo the patients mother she's aware of the appt for Dr. Rosenberg on August at 3:00 pm. The itinerary has been mailed to the patient. Per Ms. Bermeo they will keep the appt for 08/22/16) 07/17/2016 Telephone Transplant Ana Coates Appointment ( Patient mother called to confirm her daughters appt for 07/19/16. She's aware of the location of the appt and what time to check in to register for the testing) 06/26/2016 Procedure visit Cardiac Rehabilitation Anselmo Botello MD Pre-transplant evaluation for chronic kidney disease (Primary Dx) 06/26/2016 Hospital Radiology Anselmo Botello MD Pre-transplant evaluation Encounter for chronic kidney disease 06/26/2016 [facility] Anselmo Botello MD Pre-transplant evaluation Encounter for chronic kidney disease 06/26/2016 Office Visit Transplant Ansemlo Botello MD Pre- transplant evaluation Grecia Roman RN for chronic kidney disease (Primary Dx) 06/26/2016 Orders Only Transplant Sharmaine Esparza RN Pre-transplant evaluation for chronic kidney disease (Primary Dx) 06/26/2016 Telephone Transplant Ana Coates Appointment ( Spoke with Dolores at Dr. Botello's office and per Dolores Botello is not contracted with the patients insurance [place] [employer]. I have emailed the insurance chaka., financial counselors and our referral department to f/u on which is contracted with Adithya .) 06/22/2016 Documentation Transplant Dominga Minor 06/07/2016 Orders Only Transplant Sharmaine Esparza RN Pre-transplant evaluation for chronic kidney disease (Primary Dx) after 05/29/2016 Social History Tobacco Use Types Packs/Day Years Used Date Never Smoker Alcohol Use Drinks/Week oz/Week Comments No Sex Assigned at Date Recorded Not on file Last Filed Vital Signs Vital Sign Reading Time Taken Blood Pressure 126/88 08/22/2016 2:17 PM CDT Pulse 111 08/22/2016 2:17 PM CDT Temperature 37.1 C (98.7 F) 08/22/2016 2:17 PM CDT Respiratory Rate 18 08/22/2016 2:17 PM CDT Oxygen Saturation - - Inhaled Oxygen - - Concentration Weight 69.5 kg (153 lb 4.8 oz) 08/22/2016 2:17 PM CDT Height 159.3 cm (5' 2.7") 08/22/2016 2:17 PM CDT Body Mass Index 27.42 08/22/2016 2:17 PM CDT Plan of Treatment Health Maintenance Due Date Last Done Comments INFLUENZA VACCINE 01/13/2017 Results * Flow PRA Class I and II (07/19/2016 12:00 PM) Component Value Ref Range Date of Serum [id number] Serum# [id number] Flow PRA Class I and II See Scanned Report Specimen Performing Laboratory Blood [facility] [place], [place]:BC [address] [place] [address] * HLA Typing (07/19/2016 12:00 PM) Component Value Ref Range HLA Result See Scanned Report HLA-A AG1 HLA-A AG2 HLA-B AG1 HLA-B AG2 HLA-C AG1 HLA-C AG2 HLA-DR AG1 HLA-DR 2nd Antigen HLA-DQ AG1 HLA-DQ AG2 HLA-DRW Specimen Performing Laboratory Blood [facility] [address] [place] [place]era, MS:BCM [address] [place] [address] * 2D Echo W/Doppler(CW/PW/Color) (07/19/2016 11:00 AM) Component Value Ref Range Ejection Fraction LV EF 27.4 % (55-75)* Index 16.5 %/m2 Specimen Performing [facility] [address] [place] [address] Voice:[phone] Transthoracic Echocardiogram Pat.Name:JEFF BERMEO Pat.ID:[id number] St.Date: 07/19/2016Refer.MD:ANSELMO BOTELLO Exam Time: 11:00:00 AM Study Type:Echo Complete Height:63inWeight:140lb BSA: 1.66 m2 DOBAge:1985,30Y Sex: FEMALEBP: 117/87 HR:108 bpm Sonogrphr: NOEMY Choudhary Pat. Stat.:OutpatientRoom:[facility] Reason for Study:Pre-surgical evaluation of organ transplant History / Clinical:Congestive Heart Failure, Diabetes, ESRD, Hypertension, Stroke/TIA Procedures:2D ECHO W/ DOPPLER (CW/PW/COLOR), 2D, M-mode, Doppler, Color Flow SUMMARY: 1. Left ventricular chamber size (by vol index) is normal (female - LVED vol -29-61 ml/m2). Borderline concentric LV hypertrophy. All of the LV segments are severely hypokinetic. LVEF by quantitative assessment is severly reduced (25-29%). Degree (grade) of diastolic dysfunction is indeterminate. LA size is severely enlarged (>48 ml/m2). 2. The right ventricular chamber size and systolic function are within normal limits. RA cavity size is moderately enlarged. Estimated Peak systolic pressure is at least 45-50 mmHg. 3. Moderate central functional mitral regurgitation. Mild to moderate TR. No prior exam available for comparison. FINDINGS: Rhythm/BP: Rapid, regular rhythm during the exam. LV: All of the LV segments are severely hypokinetic. Left ventricularchamber size (by vol index) is normal ( female - LVEDvol -29-61 ml/m2). Borderline concentric LV hypertrophy.LVEF by quantitative assessment is severly reduced(25-29%). Degree (grade) of diastolic dysfunction isindeterminate. LA: LA size is severely enlarged (>48 ml/m2). RV: The right ventricular chamber size and systolic function are withinnormal limits. RA: RA cavity size is moderately enlarged. AV: Normal AoV structure and function. MV: Moderate mitral regurgitation. The mechanism for MR is leaflettethering. TV: Mild to moderate TR is present. Estimated Peak systolic pressureis at least 45-50 mmHg. PV: At least mild MS is present. AO: Proximal ascending aorta size is normal. Pericard: No significant pericardial effusion is visualized. Systemic Veins: The estimated RA pressure by IVC dynamics 5-10 mmHg. Comparison: No prior exam available for comparison. Quality:Technically good exam. MEASUREMENTS: 2D LV EF SinglePlane LV Ad 31.7 cm2(9.5-22.3)* LV CO 2.72 l/min LV As 26.6 cm2(4-11.6)* LV CI 1.64 l/min/m2 LVEDV 94.4 ml (59-136) Index56.8 ml/m2 LV SV 25.9 ml LVESV 68.5 mlHR 105 bpm Left Ventricle LV A% 16 %(36-64)* LA Sng Plane LA Vol80 mlIndex 48.2 ml/m2 LA Area 25 cm2(8.8-23.4)* Aorta Ao Asc2.31 cm (2.1-3.4) Parasternal Long [place] Ao An 1.84 cm (1.4-2.6) LV%fs 19.8 %(25-46)* Ao Rtd2.66 cmLVPWd 1.08 cm IVSd1.13 cm LA Ds 3.49 cm (2.3-3.8) LVIDd 4.76 cm (4.3-5.1) LV Wmn 1.1 cm LVIDs 3.82 cm (2-4) DOPPLER Stroke Vol & Cardiac Out HR 106 bpmSV 36.5 ml ann1.84 cm CO 3.87 l/min VTI13.7 cm CI 2.33 l/min/m2 RA Velocity TI georgette 307 cm/Sommer Press 37.6 mmHg Signed 07/20/2016 05:08 PM Dusty Castro M.D Procedure Note Interface, External Ris In - 07/20/2016 5:10 PM CDT Echocardiography Laboratory [address] [place] [address] Voice: [phone] Transthoracic Echocardiogram Pat.Name: JEFF BERMEO Pat.ID: [id number] St.Date: 07/19/2016 Refer.MD: ANSELMO BOTELLO Exam Time: 11:00:00 AM Study Type:Echo Complete Height: 63in Weight: 140lb BSA: 1.66 m2 Age: 9 1985,30Y Sex: FEMALE BP: 117/87 HR: 108 bpm Sonogrphr: NOEMY Choudhary Pat. Stat.:Outpatient Room: [facility] Reason for Study:Pre-surgical evaluation of organ transplant History / Clinical:Congestive Heart Failure, Diabetes, ESRD, Hypertension, Stroke/TIA Procedures:2D ECHO W/ DOPPLER (CW/PW/COLOR), 2D, M-mode, Doppler, Color Flow SUMMARY: 1. Left ventricular chamber size (by vol index) is normal (female - LVED vol - 29-61 ml/m2). Borderline concentric LV hypertrophy. All of the LV segments are severely hypokinetic. LVEF by quantitative assessment is severly reduced (25-29%). Degree (grade) of diastolic dysfunction is indeterminate. LA size is severely enlarged (>48 ml/m2). 2. The right ventricular chamber size and systolic function are within normal limits. RA cavity size is moderately enlarged. Estimated Peak systolic pressure is at least 45-50 mmHg. 3. Moderate central functional mitral regurgitation. Mild to moderate TR. No prior exam available for comparison. FINDINGS: Rhythm/BP: Rapid, regular rhythm during the exam. LV: All of the LV segments are severely hypokinetic. Left ventricular chamber size (by vol index) is normal (female - LVED vol - 29-61 ml/m2). Borderline concentric LV hypertrophy. LVEF by quantitative assessment is severly reduced (25-29%). Degree (grade) of diastolic dysfunction is indeterminate. LA: LA size is severely enlarged (>48 ml/m2). RV: The right ventricular chamber size and systolic function are within normal limits. RA: RA cavity size is moderately enlarged. AV: Normal AoV structure and function. MV: Moderate mitral regurgitation. The mechanism for MR is leaflet tethering. TV: Mild to moderate TR is present. Estimated Peak systolic pressure is at least 45-50 mmHg. PV: At least mild MS is present. AO: Proximal ascending aorta size is normal. Pericard: No significant pericardial effusion is visualized. Systemic Veins: The estimated RA pressure by IVC dynamics 5-10 mmHg. Comparison: No prior exam available for comparison. Quality: Technically good exam. MEASUREMENTS: 2D LV EF SinglePlane LV Ad 31.7 cm2 (9.5-22.3)* LV CO 2.72 l/min LV As 26.6 cm2 (4-11.6)* LV CI 1.64 l/min/m2 LVEDV 94.4 ml (59-136) Index 56.8 ml/m2 LV SV 25.9 ml LVESV 68.5 ml HR 105 bpm Left Ventricle LV A% 16 % (36-64)* LA Sng Plane LA Vol 80 ml Index 48.2 ml/m2 LA Area 25 cm2 (8.8-23.4)* Aorta Ao Asc 2.31 cm (2.1-3.4) Parasternal Long [place] Ao An 1.84 cm (1.4-2.6) LV%fs 19.8 % (25-46)* Ao Rtd 2.66 cm LVPWd 1.08 cm IVSd 1.13 cm LA Ds 3.49 cm (2.3-3.8) LVIDd 4.76 cm (4.3-5.1) LV Wmn 1.1 cm LVIDs 3.82 cm (2-4) DOPPLER Stroke Vol & Cardiac Out HR 106 bpm SV 36.5 ml lesia 1.84 cm CO 3.87 l/min VTI 13.7 cm CI 2.33 l/min/m2 RA Velocity TI georgette 307 cm/s RA Press 37.6 mmHg Signed 07/20/2016 05:08 PM Dusty Castro M.D * Manual Differential (07/19/2016 10:01 AM) Component Value Ref Range Total Counted WBC Morphology Normal Platelet Morphology Normal Hypochromia 1+ few Ovalocytes 1+ few Polychromasia 1+ few Tear Drop Cells 2+ moderate Specimen Performing Laboratory Blood [address] [address] * T Spot TB (07/19/2016 10:01 AM) Component Value Ref Range T-Spot TB Negative Neg Ctrl Spot Count 0 Panel A Spot 0 Panel B Spot [address] >20 Scan Result See scanned document Specimen Performing Laboratory Blood [facility] [address] [facility], [address] [place] [address] * PT/aPTT (07/19/2016 10:01 AM) Component Value Ref Range Protime 15.3 (H) 11.7 - 14.7 seconds INR 1.2 <=5.9 PTT 33.6 22.5 - 36.0 seconds Specimen Performing Laboratory Blood [address] [address] Narrative RECOMMENDED COUMADIN/WARFARIN INR THERAPY RANGES STANDARD DOSE: 2.0 - 3.0 Includes: PROPHYLAXIS for venous thrombosis, systemic embolization; TREATMENT for venous thrombosis and/or pulmonary embolus. HIGH RISK: Target INR is 2.5-3.5 for patients with mechanical heart valves. * HIV-1 Antigen with HIV-1/2 Antibody (07/19/2016 10:01 AM) Component Value Ref Range HIV-1 Antigen with HIV Nonreactive Nonreactive 1&2 Antibody Specimen Performing Laboratory [address] [address] * CBC with platelet count + automated diff (07/19/2016 10:01 AM) Component Value Ref Range WBC 3.9 (L) 4.0 - 10.0 K/ L RBC 3.60 (L) 4.00 - 5.00 M/ L Hemoglobin 10.9 (L) 12.0 - 15.0 GM/DL Hematocrit 35.9 (L) 36.0 - 45.0 % MCV 99.8 (H) 82.0 - 99.0 fL MCH 30.2 27.0 - 33.0 pg MCHC 30.3 (L) 32.0 - 36.0 GM/DL RDW 17.2 (H) 10.3 - 14.2 % Platelets 139 (L) 150 - 430 K/CU MM MPV 9.0 6.5 - 10.5 fL nRBC 11 (H) 0 - 0 /100 WBC % Neutros 63 % % Lymphs 25 % % Monos 7 % % Eos 5 % % Baso 0 % # Neutros 2.48 1.80 - 8.00 K/ L # Lymphs 1.00 (L) 1.48 - 4.50 K/ L # Monos 0.26 0.00 - 1.30 K/ L # Eos 0.18 0.00 - 0.50 K/ L # Baso 0.01 0.00 - 0.20 K/ L Specimen Performing Laboratory Blood [address] [address] Narrative 0.00 * Hepatitis C Antibody (07/19/2016 10:01 AM) Component Value Ref Range Hepatitis C Ab Nonreactive Nonreactive Specimen Performing Laboratory [address] [address] * Cytomegalovirus antibody, IgM (07/19/2016 10:01 AM) Component Value Ref Range CMV IgM Negative Specimen Performing Laboratory Blood [address] [address] * Hepatitis B core antibody, IgM (07/19/2016 10:01 AM) Component Value Ref Range Hep B C IgM Nonreactive Nonreactive Specimen Performing Laboratory [address] [address] * EBV-VCA antibody, IgM (07/19/2016 10:01 AM) Component Value Ref Range EBV VCA IgM Negative Specimen [place] [address] * EBV-VCA antibody, IgG (07/19/2016 10:01 AM) Component Value Ref Range EBV VCA IgG Negative Specimen [place] [address] * Blood typing, automated (07/19/2016 10:01 AM) Component Value Ref Range ABO/RH AUTOMATED (BEAKER) O POSITIVE Specimen [place] [address] * RPR (07/19/2016 10:01 AM) Component Value Ref Range RPR Nonreactive Nonreactive Specimen Performing Laboratory [address] [address] * Hepatitis B surface antibody (07/19/2016 10:01 AM) Component Value Ref Range Hep B S Ab 922.9 (H) <8.0 mIU/mL Specimen Performing Laboratory [address] [address] * Hepatitis B surface antigen (07/19/2016 10:01 AM) Component Value Ref Range hepatitis B Surface Ag Nonreactive Nonreactive Specimen Performing Laboratory [address] [address] * Cytomegalovirus antibody, IgG (07/19/2016 10:01 AM) Component Value Ref Range CMV IgG Positive Specimen Performing Laboratory [place] [id number] * Urinalysis, Routine (07/19/2016 10:01 AM) Component Value Ref Range Color, UA Yellow Clarity, UA Hazy Specific Barnum, UA 1.011 1.001 - 1.035 pH, UA 6.0 5.0 - 8.0 Protein, UA 300 mg/dL (A) Negative Glucose, UA 500 mg/dL (A) Negative Ketones, UA Negative Negative Bilirubin, UA Negative Negative Blood, UA Small (A) Negative Nitrite, UA Negative Negative Leukocytes, UA Large (A) Negative Urobilinogen, UA 0.2 0.2 - 1.0 mg/dL RBC, UA 5 /HPF WBC, UA 27 /HPF Bacteria, UA Moderate Squam Epithel, UA 2 /HPF Hyaline Casts, UA 6 /LPF Amorphous Crystals Many Yeast Many Specimen Source Specimen Performing [place] [address] * CBC w/PLT Count & Auto Differential (07/19/2016 10:01 AM) Specimen Performing Laboratory Blood Narrative The following orders were created for panel order CBC w/PLT Count & Auto Differential. Procedure Abnormality Status --------- - ------ CBC with platelet count ...[[id number]]AbnormalFinal result Manual Differential[[id number]] Final result Please view results for these tests on the individual orders. * Direct AHG (YANICK)/Direct Alena (07/19/2016 10:01 AM) Component Value Ref Range Direct AHG-IGG NEGATIVE Direct AHG-C3B, C3D NEGATVIE Specimen [place]forming [place] [address] * Urine Culture (07/19/2016 10:01 AM) Component Value Ref Range Result >100,000 col/mL Enterococcus species (A) Result 30-39,000 col/mL Marleen glabrata (A) Specimen Performing Laboratory Urine - Urine, [facility] Unspecified Source [address] [place] [id number] Narrative 20-29,000 col/mL skin betsy Organism Antibiotic Method Susceptibility Enterococcus species Ampicillin DISK DIFFUSION Susceptible Enterococcus species Linezolid DISK DIFFUSION Susceptible Enterococcus species Nitrofurantoin DISK DIFFUSION Susceptible Enterococcus species Tetracycline DISK DIFFUSION Resistant Enterococcus species Vancomycin DISK DIFFUSION Susceptible * Varicella Zoster Antibody, IgG (07/19/2016 10:01 AM) Component Value Ref Range Varicella IgG >8.0 Al Specimen Performing Laboratory Blood [address] [place] [address] Narrative VARICELLA ZOSTER RESULT INTERPRETATIONS: <=0.8 AlNonreactive:Presumed non-immune to VZV 0.9-1.0 AlEquivocal >=1.1 AlReactive:Presumed immune to VZV * Uric Acid (07/19/2016 10:01 AM) Component Value Ref Range Uric Acid 3.9 2.6 - 7.2 mg/dL Specimen [place] [address] * Phosphorus (07/19/2016 10:01 AM) Component Value Ref Range Phosphorus 5.7 (H) 2.3 - 4.7 mg/dL Specimen [place] [address] * PTH, Intact (07/19/2016 10:01 AM) Component Value Ref Range PTH 243.8 (H) 8.5 - 72.5 pg/mL Specimen Performing Laboratory [address] [address] Narrative Effective 03/02/2014: Reference Range Change New: 8.5-72.5 Previous: 15.0-90.0 * Lactate Dehydrogenase (LDH) (07/19/2016 10:01 AM) Component Value Ref Range LDH 288 (H) 125 - 220 U/L Specimen Performing Laboratory [address] [address] * Hemoglobin A1c (07/19/2016 10:01 AM) Component Value Ref Range Hemoglobin A1C 6.2 (H) 4.3 - 6.1 % Specimen Performing Laboratory [address] [address] * Gamma Glutamyl Transferase (GGT) (07/19/2016 10:01 AM) Component Value Ref Range GGT 649 (H) 9 - 64 U/L Specimen Performing Laboratory [address] [address] * Lipid panel (07/19/2016 10:01 AM) Component Value Ref Range Triglycerides 115 mg/dL Cholesterol 179 mg/dL HDL 51 mg/dL LDL Calculated 105 mg/dL Specimen Performing Laboratory [address] [address] Narrative Triglyceride Reference Range: Low Risk <150 [id number] High Risk 200-499 Very High Risk>=500 Cholesterol Reference Range: Low Risk <200 Rydfbngvpu275-781 High Risk>240 HDL Cholesterol Reference Range: Low Risk >=60 High Risk <40 LDL Cholesterol Reference Range: Optimal<100 Near Osnokpm363-897 [id number] Aspi559-681 Very High >=190 * Comprehensive metabolic panel (07/19/2016 10:01 AM) Component Value Ref Range Protein, Total 7.6 6.0 - 8.3 gm/dL Albumin 3.6 3.5 - 5.0 g/dL Alkaline Phosphatase 348 (H) 40 - 150 U/L Total Bilirubin 0.3 0.2 - 1.2 mg/dL Sodium 139 136 - 145 meq/L Potassium 3.5 3.5 - 5.1 meq/L Chloride 98 98 - 107 meq/L CO2 25 22 - 29 meq/L BUN 28 (H) 7 - 21 mg/dL Creatinine 3.95 (H) 0.57 - 1.25 mg/dL Glucose 280 (H) 70 - 105 mg/dL Calcium 8.4 8.4 - 10.2 mg/dL AST 71 (H) 5 - 34 U/L ALT 51 6 - 55 U/L EGFR 16Comment: ESTIMATED GFR IS NOT ACCURATE mL/min/1.73 sq m CREATININE CLEARANCE IN PREDICTING GLOMERULAR FILTRATION RATE. ESTIMATED GFR IS NOT APPLICABLE FOR DIALYSIS PATIENTS. Specimen Performing Laboratory Blood [facility] [address] [address] * US abdomen complete (06/26/2016 1:07 PM) Specimen Performing Laboratory [facility] Narrative FINAL REPORT TECHNIQUE: Grayscale ultrasound of the abdomen. INDICATION: 30-year-old woman for transplant evaluation. COMPARISON: None. FINDINGS: MIDLINE VASCULATURE: The visualized IVC is patent. Portal vein is patent. The maximum visualized aortic diameter is 1.8 cm. LIVER: Smooth liver contour. No focal lesions. BILIARY: Gallbladder: Prior cholecystectomy. Common bile duct measures 0.6 cm, within normal limits. No intrahepatic biliary ductal dilatation. PANCREAS: Incompletely visualized due to overlying bowel gas. SPLEEN: No splenomegaly. PERITONEUM: No free fluid. KIDNEYS: The right kidney measures 10 cm and the left kidney measures 9 cm with cortical thickness of 1.5 cm and 1.4 cm, respectively. No hydronephrosis. No sonographically evident solid mass lesion. IMPRESSION: Unremarkable abdominal sonogram. Signed: Ryan Ellis MD Report Verified Date/Time:06/26/2016 15:27:17 Reading Location: [address] Radiology Reading Room Procedure Note Interface, External Ris In - 06/26/2016 3:29 PM CDT FINAL REPORT TECHNIQUE: Grayscale ultrasound of the abdomen. INDICATION: 30-year-old woman for transplant evaluation. COMPARISON: None. FINDINGS: MIDLINE VASCULATURE: The visualized IVC is patent. Portal vein is patent. The maximum visualized aortic diameter is 1.8 cm. LIVER: Smooth liver contour. No focal lesions. BILIARY: Gallbladder: Prior cholecystectomy. Common bile duct measures 0.6 cm, within normal limits. No intrahepatic biliary ductal dilatation. PANCREAS: Incompletely visualized due to overlying bowel gas. SPLEEN: No splenomegaly. PERITONEUM: No free fluid. KIDNEYS: The right kidney measures 10 cm and the left kidney measures 9 cm with cortical thickness of 1.5 cm and 1.4 cm, respectively. No hydronephrosis. No sonographically evident solid mass lesion. IMPRESSION: Unremarkable abdominal sonogram. Signed: Ryan Ellis MD Report Verified Date/Time: 06/26/2016 15:27:17 Reading Location: [address] Radiology Reading Room * ECG 12 lead (06/26/2016 1:01 PM) Specimen Performing Laboratory [facility] Narrative Ventricular Rate 103 BPM Atrial Rate 103 BPM P-R Interval 176 ms QRS Duration 94 ms Q-T Interval 382 ms QTC Calculation(Bazett) 500 ms P [place] 67 degrees R [place] 93 degrees T [place] 62 degrees AGE AND GENDER SPECIFIC ECG ANALYSIS Sinus tachycardia Possible Left atrial enlargement Rightward axis Borderline ECG When compared with ECG of 10-OCT-2012 00:26, Nonspecific T wave abnormality no longer evident in Anterolateral leads Confirmed by FERNANDO HERNANDEZ M.D. ([id number]) on 06/26/2016 4:15:24 PM Procedure Note Interface, External Ris In - 06/26/2016 4:15 PM CDT Ventricular Rate 103 BPM Atrial Rate 103 BPM P-R Interval 176 ms QRS Duration 94 ms Q-T Interval 382 ms QTC Calculation(Bazett) 500 ms P [place] 67 degrees R [place] 93 degrees T [place] 62 degrees AGE AND GENDER SPECIFIC ECG ANALYSIS Sinus tachycardia Possible Left atrial enlargement Rightward axis Borderline ECG When compared with ECG of 10-OCT-2012 00:26, Nonspecific T wave abnormality no longer evident in Anterolateral leads Confirmed by FERNANDO HERNANDEZ M.D. ([id number]) on 06/26/2016 4:15:24 PM * XR chest 2 views (06/26/2016 12:50 PM) Specimen Performing Laboratory [facility] Narrative FINAL REPORT TECHNIQUE: Frontal and lateral views of the chest. INDICATION: 30-year-old woman for transplant evaluation. COMPARISON: Chest radiograph 10/22/2012. FINDINGS: LINES/TUBES: The tip of a left chest port terminates in the expected region of the junction of the superior vena cava and left brachiocephalic vein. The tips of a right internal jugular dual lumen dialysis catheter terminate at the cavoatrial junction and right atrium. LUNGS: Central pulmonary venous congestion with mild interstitial edema. PLEURA: No pleural effusion or pneumothorax. HEART AND MEDIASTINUM: The cardiomediastinal silhouette is moderately enlarged. SOFT TISSUES AND BONES: Cholecystectomy clips. IMPRESSION: Mild interstitial edema. Signed: Ryan Ellis MD Report Verified Date/Time:06/26/2016 13:12:31 Reading Location: [address] Radiology Reading Room Procedure Note Interface, External Ris In - 06/26/2016 1:14 PM CDT FINAL REPORT TECHNIQUE: Frontal and lateral views of the chest. INDICATION: 30-year-old woman for transplant evaluation. COMPARISON: Chest radiograph 10/22/2012. FINDINGS: LINES/TUBES: The tip of a left chest port terminates in the expected region of the junction of the superior vena cava and left brachiocephalic vein. The tips of a right internal jugular dual lumen dialysis catheter terminate at the cavoatrial junction and right atrium. LUNGS: Central pulmonary venous congestion with mild interstitial edema. PLEURA: No pleural effusion or pneumothorax. HEART AND MEDIASTINUM: The cardiomediastinal silhouette is moderately enlarged. SOFT TISSUES AND BONES: Cholecystectomy clips. IMPRESSION: Mild interstitial edema. Signed: Ryan Ellis MD Report Verified Date/Time: 06/26/2016 13:12:31 Reading Location: [address] Radiology Reading Room * Type and Screen, Automated (06/26/2016 9:13 AM) Component Value Ref Range ABO/RH AUTOMATED (BEAKER) O POSITIVE Ab Scrn NEGATIVE Specimen Performing Laboratory Blood [facility] [address] [address] after 05/29/2016
[2017-05-30] MEDS ORDERED: MORPHINE SULFATE 4 MG/ML SYR IV STA (16:43)
[2017-05-30] MEDS ORDERED: ONDANSETRON HCL INJ 2 MG/ML VIAL IV STA (16:43)
[2017-05-30] MEDS ORDERED: SODIUM CHLORIDE 0.9% 1000ML 1,000 ML IV STA (16:43)
--- NOTE | 2017-05-30 18:15 | Diagnostic Imaging Report ---
PROCEDURE:X-RAY CHEST, ONE VIEW COMPARISON:[facility], DX, CHEST SINGLE (NOT PORTABLE), 04/16/2017, 14:37. INDICATIONS:CHEST PAIN, SHORTNESS OF BREATH FINDINGS: See conclusion. CONCLUSION: 1. Unchanged right dialysis catheter, left Port-A-Cath and left AICD. 2. Mild central pulmonary venous congestion. No overt pulmonary edema. No consolidation or effusion. 2. Stable enlargement of the cardiac silhouette. 4. No acute bony abnormalities. Db Barth M.D. Dictated by: Db Barth M.D. on 05/30/2017 at 18:14 Electronically approved by: Db Barth M.D. on 05/30/2017 at 18:14
[2017-05-30 20:15] LABS: BASOPHILS % 0.7 % (0.0-1.0); EOSINOPHILS # (AUTO) 0.3 (0.0-0.4); EOSINOPHILS % 4.9 % (0.0-6.0); HEMATOCRIT 28.3 % (34.2-44.1); HEMOGLOBIN 8.4 g/dL (12.0-16.0); LYMPHOCYTES # (AUTO) 1.6 (1.0-3.2); MEAN CORPUSCULAR HEMOGLOBIN 26.8 pg (28-32); MEAN CORPUSCULAR HGB CONC 29.7 g/dL (31-35); MEAN CORPUSCULAR VOLUME 90.1 fL (81-99); MONOCYTES # (AUTO) 0.2 (0.2-0.8); MONOCYTES % 3.1 % (4.4-11.3); NEUTROPHILS # (AUTO) 3.6 (2.1-6.9); PLATELET COUNT 302 x10e3/uL (140-360); RED BLOOD COUNT 3.14 x10e6/uL (3.6-5.1); RED CELL DISTRIBUTION WIDTH 17.4 % (11.7-14.4)
[2017-05-30] MEDS ORDERED: PROMETHAZINE 12.5MG/ NACL 0.9% 12.5 MG/50 ML BAG IV ONE (20:15)
[2017-05-30] MEDS ORDERED: DIPHENHYDRAMINE HCL INJ 50 MG/ML VIAL IV ONE (20:15)
[2017-05-30 20:16] LABS: BILIRUBIN,URINE NEGATIVE (NEGATIVE); COLOR,URINE YELLOW (YELLOW); KETONES,URINE NEGATIVE (NEGATIVE); LEUKOCYTE ESTERASE ,URINE 1+ (NEGATIVE); NITRITE,URINE NEGATIVE (NEGATIVE); PROTEIN,URINE DIPSTICK 3+ (NEGATIVE); URINE UROBILINOGEN 0.2 mg/dL (0.2 - 1)
[2017-05-30 20:18] LABS: CLARITY,URINE SL CLOUDY (CLEAR); PREGNANCY TEST, URINE NEGATIVE (NEGATIVE)
[2017-05-30 20:22] LABS: INR 1.28
[2017-05-30 20:23] LABS: PARTIAL THROMBOPLASTIN TIME 51.5 seconds (23.8-35.5)
[2017-05-30 20:30] LABS: BACTERIA,URINE MODERATE /HPF; EPITHELIAL CELLS,URINE MODERATE /LPF; RENAL EPITHELIAL CELLS,URINE FEW; TRANSITIONAL EPI CELLS,URINE FEW
[2017-05-30 20:32] LABS: ALANINE AMINOTRANSFERASE 7 IU/L (0-55); ALBUMIN 2.6 g/dL (3.5-5.0); ALBUMIN/GLOBULIN RATIO 0.5 (0.8-2.0); ALKALINE PHOSPHATASE 173 IU/L (40-150); ANION GAP 14.4 mmol/L (8-16); BLOOD UREA NITROGEN 36 mg/dL (7-26); BUN/CREATININE RATIO 9 (6-25); CALCIUM 8.2 mg/dL (8.4-10.2); CARBON DIOXIDE 24 mmol/L (22-29); CHLORIDE 104 mmol/L (98-107); CREATINE KINASE 67 IU/L (29-168); CREATININE, SERUM 3.93 mg/dL (0.57-1.11); EST GLOMERULAR FILTRATION RATE 16 ML/MIN (60-); GLUCOSE 81 mg/dL (74-118); POTASSIUM 3.4 mmol/L (3.5-5.1); SODIUM 139 mmol/L (136-145)
[2017-05-30] MEDS ORDERED: MORPHINE SULFATE 2 MG/ML SYR ONE (20:34)
[2017-05-30 20:51] LABS: THYROID STIMULATING HORMONE 1.923 uIU/mL (0.350-4.940)
[2017-05-30 20:57] LABS: B-TYPE NATRIURETIC PEPTIDE2 1476.5 pg/mL (0-100)
[2017-05-30] MEDS ORDERED: SODIUM CHLORIDE FLUSH 10 ML SYR INJ PRN (21:00)
[2017-05-30] MEDS ORDERED: PROMETHAZINE HCL 25 MG TAB PO PRN (21:15)
[2017-05-30] MEDS ORDERED: TEMAZEPAM 15 MG CAP PO PRN (21:15)
[2017-05-30] MEDS ORDERED: MORPHINE-NS2 MG/1 ML IV (21:15)
[2017-05-30] MEDS ORDERED: IPRATROPIUM BROMIDE 0.02% 2.5 ML NEB NEB PRN (21:15)
[2017-05-30] MEDS ORDERED: ZOLPIDEM TARTRATE 10 MG TAB PO PRN (21:15)
[2017-05-30] MEDS ORDERED: AMBIEN10 MG PO (21:15)
[2017-05-30] MEDS ORDERED: PHENERGAN25 MG/1 ML IV (21:15)
[2017-05-30] MEDS ORDERED: KEPPRA500 MG PO (21:15)
[2017-05-30] MEDS ORDERED: ALBUTEROL SULFATE HFA 8GM INHALATION AEROSOL INH PRN (21:15)
[2017-05-30] MEDS ORDERED: DEXTROSE 50% SYRINGE 50 ML IV PRN (21:15)
[2017-05-30] MEDS ORDERED: HYDROXYZINE HCL 25 MG TAB PO PRN (21:15)
[2017-05-30] MEDS ORDERED: DIPHENHYDR50 MG/1 ML IV (21:15)
[2017-05-30] MEDS ORDERED: CYCLOBENZAPRINE5 MG PO (21:15)
[2017-05-30] MEDS ORDERED: DOCUSATE SODIUM 100 MG CAP PO PRN (21:15)
[2017-05-30] MEDS ORDERED: DIPHENOXYLATE/ATROPINE TAB PO PRN (21:15)
--- OUTSIDE RECORDS SUMMARY | 2017-05-30 21:29 | XMS REPORT | Clinical Summary ---
Author Author KALYAN [facility] Address Unknown Phone Unavailable Care Team Providers Care Customer Service Driver Name Role Phone PCP Unavailable Allergies Active [...] (HCC) 08/22/2016 IDDM (insulin dependent diabetes mellitus) ([facility]) 08/22/2016 Epilepsy (HCC) 08/22/2016 Anxiety 08/22/2016 Chronic pain due to trauma 08/22/2016 Gastroparesis 08/22/2016 Diabetic polyneuropathy associated with type 1 diabetes mellitus (HCC) 08/22 Secondary hyperparathyroidism of renal origin ([facility]) 08/22/2016 Anemia in chronic kidney disease(285.21) 08/22/2016 Thrombocytopenia ([facility]) 08/22/2016 Pituitary tumor 08/22/2016 Benign hypertension with [...] evaluation Encounter for chronic kidney disease 06/26/2016 [facility] Anselmo Botello MD Pre-transplant evaluation Encounter for chronic kidney disease 06/26/2016 Office Visit Transplant Anselmo Botello MD Pre- transplant evaluation Grecia Roman [...] Component Value Ref Range Date of Serum 201693 Serum# [id number] Flow PRA Class I and II See Scanned Report Specimen Performing Laboratory Blood [facility] IMMUNE EVALUATION LAB [facility] Moraima, MS:BC [address] [place] [address] * HLA Typing (07/19/2016 12:00 PM) Component Value Ref Range HLA Result See Scanned Report HLA-A AG1 HLA-A AG2 HLA-B AG1 HLA-B AG2 HLA-C AG1 HLA-C AG2 HLA-DR AG1 HLA-DR 2nd Antigen HLA-DQ AG1 HLA-DQ AG2 HLA-DRW Specimen Performing Laboratory Blood [facility] IMMUNE EVALUATION LAB [facility] One Juan Carlosalejo Valera, MS:BCM [address] [place] [address] * 2D Echo W/Doppler(CW/PW/Color) (07/19/2016 11:00 AM) Component Value Ref Range Ejection Fraction LV EF 27.4 % (55-75)* Index 16.5 %/m2 Specimen Performing Laboratory [facility] Laboratory [address] [place] [address] Voice:[phone] Transthoracic Echocardiogram Pat.Name:JEFF BERMEO Pat.ID:[id number] St.Date: 07/19/2016Refer.MD:ANSELMO BOTELLO Exam Time: 11:00:00 AM Study Type:Echo Complete Height:63inWeight:140lb BSA: 1.66 m2 DOBAge:1985,30Y Sex: FEMALEBP: 117/87 HR:108 bpm Sonogrphr: NOEMY Choudhary Pat. Stat.:OutpatientRoom:[facility] Reason for Study:Pre-surgical evaluation of organ transplant [...] least 45-50 mmHg. PV: At least mild DC is present. AO: Proximal ascending aorta size [...] Aorta Ao Asc2.31 cm (2.1-3.4) Parasternal [place] Ao An 1.84 cm (1.4-2.6) LV%fs 19.8 [...] 07/20/2016 5:10 PM CDT Echocardiography Laboratory [address] [place] [address] Voice: [phone] Transthoracic Echocardiogram Pat.Name: JEFF BERMOE Pat.ID: [id number] St.Date: 07/19/2016 Refer.MD: ANSELMO BOTELLO Exam Time: 11:00:00 AM Study Type:Echo Complete Height: 63in Weight: 140lb BSA: 1.66 m2 Age: 9 1985,30Y Sex: FEMALE BP: 117/87 HR: 108 bpm Sonogrphr: NOEMY Choudhary Pat. Stat.:Outpatient Room: [facility] Reason for Study:Pre-surgical evaluation of organ transplant [...] least 45-50 mmHg. PV: At least mild DC is present. AO: Proximal ascending aorta size [...] Ao Asc 2.31 cm (2.1-3.4) Parasternal [place] Ao An 1.84 cm (1.4-2.6) LV%fs 19.8 [...] Cells 2+ moderate Specimen Performing Laboratory Blood [address] [address] * T Spot TB (07/19/2016 10:01 AM) Component Value Ref Range T-Spot TB Negative Neg Ctrl Spot Count 0 Panel A Spot 0 Panel B Spot [address] >20 Scan Result See scanned document Specimen Performing Laboratory Blood [facility] [address] [facility], [address] [place] [address] * PT/aPTT (07/19/2016 10:01 AM) Component Value Ref Range Protime 15.3 (H) 11.7 - 14.7 seconds INR 1.2 <=5.9 PTT 33.6 22.5 - 36.0 seconds Specimen Performing Laboratory Blood [address] [address] Narrative RECOMMENDED COUMADIN/WARFARIN INR THERAPY RANGES STANDARD DOSE: 2.0 - 3.0 Includes: PROPHYLAXIS for venous thrombosis, systemic embolization; TREATMENT for venous thrombosis and/or pulmonary embolus. HIGH RISK: Target INR is 2.5-3.5 for patients with mechanical heart valves. * HIV-1 Antigen with HIV-1/2 Antibody (07/19/2016 10:01 AM) Component Value Ref Range HIV-1 Antigen with HIV Nonreactive Nonreactive 1&2 Antibody Specimen Performing Laboratory [address] [address] * CBC with platelet count + automated [...] 0.20 K/ L Specimen Performing Laboratory Blood [address] [address] Narrative 0.00 * Hepatitis C Antibody (07/19/2016 10:01 AM) Component Value Ref Range Hepatitis C Ab Nonreactive Nonreactive Specimen Performing Laboratory [address] [address] * Cytomegalovirus antibody, IgM (07/19/2016 10:01 AM) Component Value Ref Range CMV IgM Negative Specimen Performing Laboratory Blood [address] [address] * Hepatitis B core antibody, IgM (07/19/2016 10:01 AM) Component Value Ref Range Hep B C IgM Nonreactive Nonreactive Specimen Performing Laboratory [address] [address] * EBV-VCA antibody, IgM (07/19/2016 10:01 AM) Component Value Ref Range EBV VCA IgM Negative [place] [address] * EBV-VCA antibody, IgG (07/19/2016 10:01 AM) Component Value Ref Range EBV VCA IgG Negative [place] [address] * Blood typing, automated (07/19/2016 10:01 AM) Component Value Ref Range ABO/RH AUTOMATED (BEAKER) O POSITIVE Specimen [place] [address] * RPR (07/19/2016 10:01 AM) Component Value Ref Range RPR Nonreactive Nonreactive Specimen Performing Laboratory [address] [address] * Hepatitis B surface antibody (07/19/2016 10:01 AM) Component Value Ref Range Hep B S Ab 922.9 (H) <8.0 mIU/mL Specimen Performing Laboratory [address] [address] * Hepatitis B surface antigen (07/19/2016 10:01 AM) Component Value Ref Range hepatitis B Surface Ag Nonreactive Nonreactive Specimen Performing Laboratory [address] [address] * Cytomegalovirus antibody, IgG (07/19/2016 10:01 AM) Component Value Ref Range CMV IgG Positive Specimen Performing Laboratory [place] [id number] * Urinalysis, Routine (07/19/2016 10:01 AM) Component Value Ref Range Color, UA Yellow Clarity, UA Hazy Specific [place], UA 1.011 1.001 - 1.035 pH, UA [...] Many Specimen Source Specimen [place] [address] * CBC w/PLT Count & Auto Differential (07/19/2016 10:01 AM) Specimen Performing Laboratory Blood Narrative The following orders were created for panel order CBC w/PLT Count & Auto Differential. Procedure Abnormality Status --------- - ------ CBC with platelet count ...[[id number]]AbnormalFinal result Manual Differential[[id number]] Final result Please view results for these tests on the individual orders. * Direct AHG (YANICK)/Direct Alena (07/19/2016 10:01 AM) Component Value Ref Range Direct AHG-IGG NEGATIVE Direct AHG-C3B, C3D NEGATVIE Specimen Performing [place] [address] * Urine Culture (07/19/2016 10:01 AM) Component Value Ref Range Result >100,000 col/mL Enterococcus species (A) Result 30-39,000 col/mL Marleen glabrata (A) Specimen Performing Laboratory Urine - Urine, [facility] Unspecified Source [address] [place] [address] Narrative 20-29,000 col/mL skin betsy Organism Antibiotic Method Susceptibility Enterococcus species Ampicillin DISK DIFFUSION Susceptible Enterococcus species Linezolid DISK DIFFUSION Susceptible Enterococcus species Nitrofurantoin DISK DIFFUSION Susceptible Enterococcus species Tetracycline DISK DIFFUSION Resistant Enterococcus species Vancomycin DISK DIFFUSION Susceptible * Varicella Zoster Antibody, IgG (07/19/2016 10:01 AM) Component Value Ref Range Varicella IgG >8.0 Al Specimen Performing Laboratory Blood [address] [place] [address] Narrative VARICELLA ZOSTER RESULT INTERPRETATIONS: <=0.8 AlNonreactive:Presumed non-immune to VZV 0.9-1.0 AlEquivocal >=1.1 AlReactive:Presumed immune to VZV * Uric Acid (07/19/2016 10:01 AM) Component Value Ref Range Uric Acid 3.9 2.6 - 7.2 mg/dL [place] [address] * Phosphorus (07/19/2016 10:01 AM) Component Value Ref Range Phosphorus 5.7 (H) 2.3 - 4.7 mg/dL [place] [address] * PTH, Intact (07/19/2016 10:01 AM) Component Value Ref Range PTH 243.8 (H) 8.5 - 72.5 pg/mL Specimen Performing Laboratory [address] [address] Narrative Effective 03/02/2014: Reference Range Change New: 8.5-72.5 Previous: 15.0-90.0 * Lactate Dehydrogenase (LDH) (07/19/2016 10:01 AM) Component Value Ref Range LDH 288 (H) 125 - 220 U/L Specimen Performing Laboratory [address] [address] * Hemoglobin A1c (07/19/2016 10:01 AM) Component Value Ref Range Hemoglobin A1C 6.2 (H) 4.3 - 6.1 % Specimen Performing Laboratory [address] [address] * Gamma Glutamyl Transferase (GGT) (07/19/2016 10:01 AM) Component Value Ref Range GGT 649 (H) 9 - 64 U/L Specimen Performing Laboratory [address] [address] * Lipid panel (07/19/2016 10:01 AM) Component Value Ref Range Triglycerides 115 mg/dL Cholesterol 179 mg/dL HDL 51 mg/dL LDL Calculated 105 mg/dL Specimen Performing Laboratory [address] [address] Narrative Triglyceride Reference Range: Low Risk <150 [id number] High Risk 200-499 Very High Risk>=500 Cholesterol Reference Range: Low Risk <200 Tlswcapahz289-350 High Risk>240 HDL Cholesterol Reference Range: Low Risk >=60 High Risk <40 LDL Cholesterol Reference Range: Optimal<100 Near Caslnlc988-192 Gapwdietnm070-641 Lbfn587-090 Very High >=190 * Comprehensive metabolic panel [...] DIALYSIS PATIENTS. Specimen Performing Laboratory Blood [facility] [address] [address] * US abdomen complete (06/26/2016 1:07 PM) Specimen Performing Laboratory [facility] Narrative FINAL REPORT TECHNIQUE: Grayscale ultrasound of [...] MD Report Verified Date/Time:06/26/2016 15:27:17 Reading Location: [address] Radiology Reading Room Procedure Note Interface, [...] Report Verified Date/Time: 06/26/2016 15:27:17 Reading Location: [address] Radiology Reading Room * ECG 12 lead (06/26/2016 1:01 PM) Specimen Performing Laboratory [employer] Narrative Ventricular Rate 103 BPM Atrial Rate 103 BPM P-R Interval 176 ms QRS Duration 94 ms Q-T Interval 382 ms QTC Calculation(Bazett) 500 ms P [place] 67 degrees R [place] 93 degrees T [place] 62 degrees AGE AND GENDER SPECIFIC ECG [...] 382 ms QTC Calculation(Bazett) 500 ms P [place] 67 degrees R [place] 93 degrees T [place] 62 degrees AGE AND GENDER SPECIFIC ECG [...] MD Report Verified Date/Time:06/26/2016 13:12:31 Reading Location: [address] Radiology Reading Room Procedure Note Interface, [...] Report Verified Date/Time: 06/26/2016 13:12:31 Reading Location: [address] Radiology Reading Room * Type and Screen, Automated (06/26/2016 9:13 AM) Component Value Ref Range ABO/RH AUTOMATED (BEAKER) O POSITIVE Ab Scrn NEGATIVE Specimen Performing Laboratory Blood [facility] [address] [address] after 05/29/2016
[2017-05-30] MEDS: CEFTRIAXONE SOD 1 GM VIAL IV SCH (21:30)
[2017-05-30] MEDS: PHENYTOIN SODIUM EXT REL 100 MG CAP PO SCH (21:37)
[2017-05-30] MEDS ORDERED: NON-FORMULARY MEDICATION (Lorazepam (Ativan) 2 MG) PO SCH (22:00)
[2017-05-30] MEDS ORDERED: LORAZEPAM 1 MG TAB PO PRN (22:00)
[2017-05-30 23:00] VITALS: BP 127/94
[2017-05-31] VITALS: BP 127/94
[2017-05-31] MEDS: PROMETHAZINE 12.5MG/ NACL 0.9% 12.5 MG/50 ML BAG IV PRN ×4 (00:38→17:25)
[2017-05-31] MEDS: MORPHINE SULFATE 2 MG/ML SYR IV PRN ×4 (00:38→18:25)
[2017-05-31] MEDS: DIPHENHYDRAMINE HCL INJ 50 MG/ML VIAL IV PRN ×4 (00:38→18:25)
[2017-05-31] MEDS ORDERED: SODIUM CHLORIDE 0.9% 250ML 250 ML ONE (00:40)
[2017-05-31 04:00] VITALS: BP 118/89
[2017-05-31] MEDS: BUDESONIDE/FORMOTEROL 160/4.5MCG INHALER INH SCH ×2 (07:00→19:58)
[2017-05-31 07:29] LABS: BASOPHILS % 0.5 % (0.0-1.0); EOSINOPHILS # (AUTO) 0.2 (0.0-0.4); EOSINOPHILS % 4.2 % (0.0-6.0); HEMATOCRIT 27.4 % (34.2-44.1); HEMOGLOBIN 8.1 g/dL (12.0-16.0); LYMPHOCYTES # (AUTO) 1.6 (1.0-3.2); MEAN CORPUSCULAR HEMOGLOBIN 26.7 pg (28-32); MEAN CORPUSCULAR HGB CONC 29.6 g/dL (31-35); MEAN CORPUSCULAR VOLUME 90.4 fL (81-99); MONOCYTES # (AUTO) 0.2 (0.2-0.8); MONOCYTES % 3.8 % (4.4-11.3); NEUTROPHILS # (AUTO) 3.6 (2.1-6.9); PLATELET COUNT 281 x10e3/uL (140-360); RED BLOOD COUNT 3.03 x10e6/uL (3.6-5.1); RED CELL DISTRIBUTION WIDTH 17.4 % (11.7-14.4)
[2017-05-31] MEDS: INSULIN REGULAR, HUMAN 100 UNIT/1 ML 3ML VIAL SQ SCH ×4 (07:30→19:52)
[2017-05-31] MEDS: METOCLOPRAMIDE HCL 10 MG TAB PO SCH ×4 (07:30→20:56)
[2017-05-31] MEDS: SUCRALFATE 1 GM TAB PO SCH ×2 (07:30→12:36)
[2017-05-31 07:44] LABS: ALANINE AMINOTRANSFERASE 8 IU/L (0-55); ALBUMIN 2.4 g/dL (3.5-5.0); ALBUMIN/GLOBULIN RATIO 0.5 (0.8-2.0); ALKALINE PHOSPHATASE 157 IU/L (40-150); ANION GAP 13.3 mmol/L (8-16); BLOOD UREA NITROGEN 36 mg/dL (7-26); BUN/CREATININE RATIO 9 (6-25); CALCIUM 8.1 mg/dL (8.4-10.2); CARBON DIOXIDE 24 mmol/L (22-29); CHLORIDE 106 mmol/L (98-107); CREATINE KINASE 45 IU/L (29-168); CREATININE, SERUM 3.95 mg/dL (0.57-1.11); EST GLOMERULAR FILTRATION RATE 16 ML/MIN (60-); GLUCOSE 68 mg/dL (74-118); POTASSIUM 3.3 mmol/L (3.5-5.1); SODIUM 140 mmol/L (136-145)
[2017-05-31] MEDS: ALBUTEROL SULF 0.083% NEB SOLN 3 ML NEB INH SCH ×3 (08:02→19:58)
[2017-05-31 08:32] VITALS: BP 138/94
[2017-05-31 08:33] VITALS: BP 138/94
[2017-05-31] MEDS: CYCLOBENZAPRINE HCL 10 MG TAB PO SCH ×2 (09:00→17:17)
[2017-05-31] MEDS: FOLIC ACID PO SCH (09:00)
[2017-05-31] MEDS: CARVEDILOL 12.5 MG TAB PO SCH ×2 (09:00→17:00)
[2017-05-31] MEDS: PHENYTOIN SODIUM EXT REL 100 MG CAP PO SCH ×2 (09:00→20:56)
[2017-05-31] MEDS: PANTOPRAZOLE SODIUM 40 MG SUSPDR.PKT PO SCH ×2 (09:00→17:17)
[2017-05-31] MEDS: FLUTICASONE PROPIONATE NASAL SPRAY NS SCH ×2 (09:00→17:16)
[2017-05-31] MEDS: LEVETIRACETAM 500 MG TAB PO SCH ×2 (09:00→17:17)
[2017-05-31] MEDS: FUROSEMIDE 40 MG TAB PO SCH ×2 (09:00→17:00)
[2017-05-31] MEDS ORDERED: DICLOFENAC EPOLAMINE 1.3% PATCH TP SCH (09:00)
[2017-05-31] MEDS ORDERED: FLUTICASONE PROPIONATE NS SCH (09:00)
[2017-05-31] MEDS ORDERED: NON-FORMULARY MEDICATION (Cyclobenzaprine Hcl (Flexeril) 10 MG) PO SCH (09:00)
[2017-05-31] MEDS: CLONAZEPAM 1 MG TAB PO SCH ×3 (09:00→20:56)
[2017-05-31] MEDS: VITAMIN B COMP W C PO SCH (09:00)
[2017-05-31] MEDS: DILTIAZEM HCL 30 MG TAB PO SCH ×4 (09:00→20:56)
[2017-05-31] MEDS: METHOCARBAMOL 500 MG TAB PO SCH ×2 (09:00→17:17)
[2017-05-31] MEDS: UREA 40% CRM TP SCH ×2 (09:15→17:17)
[2017-05-31] MEDS ORDERED: LIDOCAINE HCL 2% LOCAL 20 ML VIAL PRN (10:06)
[2017-05-31] MEDS ORDERED: HEPARIN SOD (PORCINE) 1000 UNIT/ML 30ML PRN (10:06)
[2017-05-31] MEDS ORDERED: HEPARIN SOD/SOD CHLORIDE 1,000 ML PRN (10:07)
[2017-05-31] MEDS ORDERED: SODIUM CHLORIDE 0.9% 1000ML 1,000 ML PRN (10:07)
[2017-05-31] MEDS: MIDAZOLAM HCL 2 MG/2 ML VIAL PRN ×2 (10:25→10:29)
--- NOTE | 2017-05-31 10:38 | Consultation ---
DATE OF CONSULTATION: May 30, 2017 CARDIOLOGY CONSULTATION REASON FOR CONSULTATION: ICD discharge. CONSULTING PHYSICIAN: Dr. William Reed HPI: This is a 31-year-old female well known to us that presented with abdominal pain, nonfunctioning dialysis catheter, and clogged PEG tube. She stated that yesterday she missed dialysis because her catheter was not working. She also complained she felt like her ICD shocked her because she was having sharp pain on the left side of her chest. She has a history of multiple medical problems and multiple admissions in the past. She was recently admitted and discharged in March, and underwent various cardiac workup. She recently had an ICD implanted at [facility] due to cardiomyopathy. She denies any palpitations, any dizziness or shortness of breath. Her troponin showed negative. BNP 1476. Chest x-ray showed no acute bony abnormalities. Mild central pulmonary venous congestion. PAST SURGICAL HISTORY: Diabetes, neurogenic bladder, gastroparesis, peripheral neuropathy, diabetic neuropathy, systolic CHF, end-stage renal disease, on dialyses, hypertension, anemia of chronic disease, cardiomyopathy, mitral valve prolapse, hypertension, chronic pain, and heal cellulitis with dermatitis. PAST MEDICAL HISTORY: AICD placement, PEG tube and Port-A-Cath. FAMILY HISTORY: Positive for hypertension and diabetes. SOCIAL HISTORY: No smoking. No drinking. She lives at home with the mother. MEDICATIONS: See med list. ALLERGIES: SEE CHART. SHE HAS MULTIPLE ALLERGIES. REVIEW OF SYSTEMS: Negative except those mentioned above. PHYSICAL EXAMINATION VITAL SIGNS: Temperature 97, heart rate 99, blood pressure 118/89, respirations 18, oxygen saturation 98% on room air. GENERAL: She is awake, alert and oriented times 3. HEENT: Mucous membrane moist. NECK: Supple. LUNGS: Bilateral clear to auscultation. CARDIOVASCULAR: S1 and S2 present. ABDOMEN: Soft. NEUROLOGICAL: Intact. EXTREMITIES: With no edema. LABS: Sodium 139, potassium 3.4, chloride 104, CO2 24, BUN 36, creatinine 3.93, glucose 81. White blood cells 5.75, hemoglobin 8.4, hematocrit 28.3, and platelet 302,000. PT 15, PTT 51.5 and INR 1.28. IMPRESSION 1. Possible implantable cardioverter defibrillator shock. 2. Coronary artery disease. 3. Cardiomyopathy. 4. End-stage renal disease, on dialysis. 5. Hypertension. 6. Diabetes. 7. Heal cellulitis. 8. Volume overload. 9. Congestive heart failure. 10. Nausea and vomiting. ASSESSMENT AND PLAN: Will go ahead and interrogate her ICD. She is [facility] She had a recent echo in March that showed EF of 30% to 35% with moderately severe impaired systolic function. Her BNP was elevated due to volume overload and renal, she missed her dialysis. Will continue her diuretic. Further cardiac workup pending clinical course. Thank you for this consultation. DICTATED BY ROMEL DUBOSE NP Job#: [id number] ULISSES
--- NOTE | 2017-05-31 11:16 | History and Physical ---
PRIMARY CARE PHYSICIAN: Dr. Mukherjee CHIEF COMPLAINT: Spitting out blood and firing of automatic implantable cardioverter defibrillator. HISTORY OF PRESENT ILLNESS: A 31-year-old woman with multiple medical history, now developing some blood in her sputum and states also having AICD firing a couple of times at home. Patient also complains of right heel pain. She denies any fever, chills, sweats. Denies any other symptoms. She does have intermittent nausea and has a PEG tube that was previously placed that she uses for feeding and medications. She denies any shortness of breath. PAST MEDICAL HISTORY: Diabetes mellitus type 1, neurogenic bladder requiring self catheterization, gastroparesis, and dysphagia, status post PEG tube placement, diabetic neuropathy, end-stage renal disease, on hemodialysis, diabetic nephropathy, systolic congestive heart failure, last ejection fraction 40%-45%, left heel diabetic foot ulcer, epilepsy. PAST SURGICAL HISTORY: AICD placement, cholecystectomy, PEG tube placement. ALLERGIES: SEE EMR. FAMILY HISTORY/SOCIAL HISTORY: Patient lives with her mom. No alcohol, illicits or cigarettes. MEDICATIONS: Per electronic medical record. REVIEW OF SYSTEMS: Denies any fever, chills, sweats. PHYSICAL EXAM VITAL SIGNS: Reviewed. GENERAL: A tired-appearing woman resting in bed. HEENT: Anicteric. CARDIOVASCULAR: Normal S1/S2. Rapid heart rate. LUNGS: She has moderate breath sounds. ABDOMEN: Soft, nondistended. She has mild tenderness anterior to the PEG tube. EXTREMITIES: No edema. She has bilateral heel hyperpigmentation and mild tenderness in the right heel. SKIN: Dry. PSYCHIATRIC: Flat affect. MUSCULOSKELETAL: She has right-sided chest hemodialysis catheters. LABS: Reviewed. MEDICATIONS: Reviewed. ASSESSMENT AND PLAN: A 31-year-old woman with 1. Hematemesis. Patient states that she did vomit a little blood. Gastrointestinal has been consulted. Use of proton pump inhibitor and follow up gastrointestinal recommendations. Hemoglobin is 8.4. Will obtain anemia panel. 2. Normocytic anemia, moderate. Will obtain anemia panel. 3. Firing of automatic implantable cardioverter defibrillator. Will consult Dr. Figueroa of cardiology for evaluation. 4. Right heel tenderness. Patient has seen Dr. Calloway in the past and wants him to further evaluate. Will reconsult now. 5. End-stage renal disease, on hemodialysis. Nephrology consulted. 6. Systolic congestive heart failure. Currently appears euvolemic. She has automatic implantable cardioverter defibrillator. 7. Urinary tract infection. Will treat with antibiotics. She is currently on ceftriaxone. Will follow up cultures. 8. Chronic pain syndrome. Will continue with home pain medication. 9. Epilepsy. Continue Dilantin and Keppra. 10. Continue patient on bowel regimen. 11. Hypertension. Continue beta-blockers. 12. Prophylaxis. Use sequential compression device and continue proton pump inhibitor. 13. Disposition. Follow up business travel consultant recommendations. Job#: [id number] CQ
--- NOTE | 2017-05-31 11:49 | Consultation ---
DATE OF CONSULTATION: May 30, 2017 REASON FOR ADMISSION: Abdominal pain, nausea, vomiting, and possible defibrillator firing. REASON FOR CONSULTATION: Pain and discomfort associated to bilateral heels. PAST MEDICAL HISTORY: Diabetes mellitus, end-stage renal disease, on dialysis, multiple diabetic complications, and surgeries multiple. FAMILY HISTORY: Noncontributory. SOCIAL HISTORY: Noncontributory MEDICATIONS: Please see MAR for current medication list. ALLERGIES: LATEX, PENICILLIN, TORADOL, HYDROMORPHONE, AND ZOFRAN. ELEVEN-POINT REVIEW OF SYSTEMS: Positive for nausea, vomiting, some chest pain, bilateral heel pains, and abdominal pain. PHYSICAL EXAMINATION: GENERAL: A and O x3. NAD. VITAL SIGNS: Temperature 97.4, pulse is 105, respiratory rate is 15, and blood pressure is 118/89. HEENT: Normocephalic, atraumatic. Anicteric. RESPIRATORY: Symmetrical expansion. ABDOMEN: Soft, nontender, nondistended. PSYCHIATRIC: Normal affect. EXTREMITIES: Indeed dyshidrotic eczematous changes especially to the bilaterally heels with no open lesions. The same are noted to be indurated and painful upon direct palpation. No open lesions. No signs of puncture wounds. No clinical sign of infection. ASSESSMENT: Dyshidrotic eczema with concomitant heel pain and diffuse hyperkeratosis. PLAN: We recommend combination of urea 40% lotion in conjunction with diclofenac topical to be applied on a twice a day basis. Recommend x-rays of bilateral feet with attention to the heels. Further recommendations to follow. I would like to thank Dr. Mukherjee for allowing me to participate in the care of this patient. SHITAL LEY DPM Job#: [id number] ELEANOR
[2017-05-31] MEDS ORDERED: MIDAZOLAM HCL 2 MG/2 ML VIAL IV STA (12:51)
--- NOTE | 2017-05-31 13:04 | Diagnostic Imaging Report ---
Tunneled Dialysis Catheter replacement; venogram and venoplasty 05/31/2017 Pre-Procedure Diagnosis: End-Stage Renal Disease; catheter malfunction Post-procedure Diagnosis:End-Stage Renal Disease; catheter-related fibrin sheath. Medical Liaison: Charlene Salmeron Banking Services Officer: None Sedation: None. Heart rate and oxygen saturation were monitored in real-time. Blood pressure was measured in 5 minute increments. 1% lidocaine was used for local anesthesia. Radiation Dose: 58 cGycm2 (Dose Area Product) Fluoroscopy time: 1.3 minutes Estimate blood loss: 20 mL Blood administered: None Complications: None Implants/Grafts: 16 Burundian 19 cm cuffed tunneled dialysis catheter Specimen: None Procedure: Informed consent was obtained and the patient positioned supine in the fluoroscopy suite. A timeout was performed. The right neck and indwelling catheter were prepped and draped in standard fashion. Evaluation demonstrated lack of blood return on the arterial ports. The venous port flushed normally. A venogram through the arterial port demonstrated a catheter-related fibrin sheath. The catheter was removed over a wire. The chest, access site, and wire were reprepped in sterile fashion using Betadine. Sterile gloves were donned. A 10 x 40 mm angioplasty balloon was used to disrupt the fibrin sheath with good result. A new 16-Burundian 19 cm cuffed tunneled dialysis catheter was inserted over the wire, with tips at the right atrium and low SVC. Appropriate blood return was confirmed, the catheter flushed and packed with 1000 units per milliliter heparin solution. The catheter was secured to the skin and a sterile dressing applied. Findings: Venogram demonstrated a catheter related fibrin sheath along the arterial port resulting in poor flow. Impression: The patient presented with dialysis catheter malfunction. Evaluation including a venogram demonstrated a catheter-related fibrin sheath. This was disrupted with an angioplasty balloon and the catheter was replaced without complication. This report was generated with voice-recognition technology. Errors in special events director can occur. Please interpret accordingly and contact a radiologist if there are any questions regarding the report. Signed by: Dr. Jose Salmeron M.D. on 05/31/2017 1:00 PM
--- NOTE | 2017-05-31 13:04 | Diagnostic Imaging Report ---
Tunneled Dialysis Catheter replacement; venogram and venoplasty 05/31/2017 Pre-Procedure Diagnosis: End-Stage Renal Disease; catheter malfunction Post-procedure Diagnosis:End-Stage Renal Disease; catheter-related fibrin sheath. Animal Cytologist: Charlene Salmeron Anode Machine Operator: None Sedation: None. Heart rate and oxygen saturation were monitored in real-time. Blood pressure was measured in 5 minute increments. 1% lidocaine was used for local anesthesia. Radiation Dose: 58 cGycm2 (Dose Area Product) Fluoroscopy time: 1.3 minutes Estimate blood loss: 20 mL Blood administered: None Complications: None Implants/Grafts: 16 Cambodian 19 cm cuffed tunneled dialysis catheter Specimen: None Procedure: Informed consent was obtained and the patient positioned supine in the fluoroscopy suite. A timeout was performed. The right neck and indwelling catheter were prepped and draped in standard fashion. Evaluation demonstrated lack of blood return on the arterial ports. The venous port flushed normally. A venogram through the arterial port demonstrated a catheter-related fibrin sheath. The catheter was removed over a wire. The chest, access site, and wire were reprepped in sterile fashion using Betadine. Sterile gloves were donned. A 10 x 40 mm angioplasty balloon was used to disrupt the fibrin sheath with good result. A new 16-Cambodian 19 cm cuffed tunneled dialysis catheter was inserted over the wire, with tips at the right atrium and low SVC. Appropriate blood return was confirmed, the catheter flushed and packed with 1000 units per milliliter heparin solution. The catheter was secured to the skin and a sterile dressing applied. Findings: Venogram demonstrated a catheter related fibrin sheath along the arterial port resulting in poor flow. Impression: The patient presented with dialysis catheter malfunction. Evaluation including a venogram demonstrated a catheter-related fibrin sheath. This was disrupted with an angioplasty balloon and the catheter was replaced without complication. This report was generated with voice-recognition technology. Errors in animal cytologist can occur. Please interpret accordingly and contact a radiologist if there are any questions regarding the report. Signed by: Dr. Jose Salmeron M.D. on 05/31/2017 1:00 PM
[2017-05-31] MEDS: SUCRALFATE 1 GM/10 ML SUSP PO SCH ×2 (17:16→20:55)
[2017-05-31 19:42] LABS: CREATINE KINASE 53 IU/L (29-168)
[2017-05-31 20:00] VITALS: BP 142/98
[2017-05-31] MEDS: CEFTRIAXONE SOD 1 GM VIAL IV SCH (20:56)
[2017-05-31] MEDS: MIRTAZAPINE 15 MG TAB PO SCH (20:56)
[2017-05-31] MEDS: DICLOFENAC EPOLAMINE 1.3% PATCH TP SCH (21:30)
--- NOTE | 2017-05-31 23:31 | Consultation ---
DATE OF CONSULTATION: May 31, 2017 HISTORY OF PRESENT ILLNESS: Ms. Jerri Bermeo a 31-year-old female, who has multiple comorbidities including history of cardiomyopathy, prior AICD, history of lupus, end-stage renal disease, hypertension, noncompliant to dialysis schedule, had a crack in the dialysis catheter, which has been successfully changed out. She is awake alert. Denies any nausea, vomiting, shortness of breath. Requesting Benadryl. Mom by bedside. ALLERGIES: SHE IS ALLERGIC TO PENICILLIN, ONDANSETRON, KETOROLAC, TROMETHAMINE, HYDROMORPHONE, AND LATEX AND NECK NATURAL RUBBER. CURRENT MEDICATIONS 1. Promethazine p.r.n. 2. Albuterol nebulizer. 3. Levotireceteman 500 mg p.o. b.i.d. 4. Temazepam 50 mg p.o. nightly. 5. Docusate 100 mg daily. 6. Cyclobenzaprine 10 mg p.o. b.i.d. 7. Carvedilol 25 b.i.d. 8. Ipratropium nebulizer. 9. Methocarbamol 500 mg p.o. b.i.d. 10. Diphenoxylate p.r.n. 11. Phenytoin 100 mg p.o. q.12. 12. Fludrocortisone. 13. Metoclopramide 10 mg p.o. q.a.c. 14. Lorazepam 2 mg p.o. t.i.d. 15. Ceftriaxone 1 g q.24. 16. Diphenhydramine p.r.n. 17. Insulin. 18. Diltiazem 30 mg q.i.d. 19. Furosemide 80 mg p.o. b.i.d. For dose schedule please see MAR. SOCIAL HISTORY: Does not smoke or drink. EXAM GENERAL: Awake, alert, sitting up. VITALS: Blood pressure 138/94, pulse rate 184, afebrile, oxygen saturation 99%. HEAD AND NECK: Cornea clear. Mucosa dry. LUNGS: Decreased air entry. Occasional rales bases. HEART: S1, S2 audible. ABDOMEN: Otherwise soft, nontender. LOWER EXTREMITY: Dressing noted both ankles, but trace ankle edema. IMPRESSIONS 1. Significant cardiac history. 2. End-stage renal disease, status post exchange of dialysis catheter. 3. Mild fluid overload. Sodium. 140. Potassium 3.3. Bicarbonate 24. Creatinine 3.9. Hemoglobin 8.1. White count 5.75. 4. Underlying anemia. 5. Chronic kidney disease. 6. Secondary hyperparathyroidism artery. 7. Multiple comorbidities. 8. High-risk dialysis patient. I will arrange dialysis and address dialysis, dialysis-related issues. Job#: [id number] CQ
[2017-06-01] VITALS: BP 127/98
[2017-06-01 04:00] VITALS: BP 120/89
[2017-06-01] MEDS: PROMETHAZINE 12.5MG/ NACL 0.9% 12.5 MG/50 ML BAG IV PRN ×3 (05:25→17:25)
[2017-06-01] MEDS: DIPHENHYDRAMINE HCL INJ 50 MG/ML VIAL IV PRN ×3 (05:25→17:25)
[2017-06-01] MEDS: MORPHINE SULFATE 2 MG/ML SYR IV PRN ×3 (05:25→17:25)
[2017-06-01] MEDS ORDERED: SODIUM CHLORIDE 0.9% 250ML 250 ML ONE (05:31)
[2017-06-01 07:09] LABS: FERRITIN 956.34 ng/mL (4.63-204.00)
[2017-06-01] MEDS: BUDESONIDE/FORMOTEROL 160/4.5MCG INHALER INH SCH ×2 (07:59→19:35)
[2017-06-01 08:00] VITALS: BP 123/89
[2017-06-01] MEDS: ALBUTEROL SULF 0.083% NEB SOLN 3 ML NEB INH SCH ×3 (08:00→19:35)
[2017-06-01] MEDS: FUROSEMIDE 40 MG TAB PO SCH ×2 (09:00→17:52)
[2017-06-01] MEDS: DICLOFENAC EPOLAMINE 1.3% PATCH TP SCH ×2 (09:00→17:53)
[2017-06-01] MEDS: CARVEDILOL 12.5 MG TAB PO SCH ×2 (09:00→17:52)
[2017-06-01] MEDS: CLONAZEPAM 1 MG TAB PO SCH ×3 (09:00→20:38)
[2017-06-01] MEDS: INSULIN REGULAR, HUMAN 100 UNIT/1 ML 3ML VIAL SQ SCH ×4 (09:00→20:39)
[2017-06-01] MEDS: SUCRALFATE 1 GM/10 ML SUSP PO SCH ×4 (09:00→20:38)
[2017-06-01] MEDS: FOLIC ACID PO SCH (09:00)
[2017-06-01] MEDS: DILTIAZEM HCL 30 MG TAB PO SCH ×4 (09:00→20:47)
[2017-06-01] MEDS: VITAMIN B COMP W C PO SCH (09:00)
[2017-06-01] MEDS: PHENYTOIN SODIUM EXT REL 100 MG CAP PO SCH ×2 (09:00→20:38)
[2017-06-01] MEDS: FLUTICASONE PROPIONATE NASAL SPRAY NS SCH ×2 (09:00→17:52)
[2017-06-01] MEDS: PANTOPRAZOLE SODIUM 40 MG SUSPDR.PKT PO SCH ×2 (09:00→17:52)
[2017-06-01] MEDS: METOCLOPRAMIDE HCL 10 MG TAB PO SCH ×4 (09:00→20:38)
[2017-06-01] MEDS: METHOCARBAMOL 500 MG TAB PO SCH ×2 (09:00→17:52)
[2017-06-01] MEDS: LEVETIRACETAM 500 MG TAB PO SCH ×2 (09:00→17:52)
[2017-06-01] MEDS: CYCLOBENZAPRINE HCL 10 MG TAB PO SCH ×2 (09:00→17:52)
[2017-06-01] MEDS: UREA 40% CRM TP SCH ×2 (09:00→17:52)
[2017-06-01 10:06] LABS: BASOPHILS % 0.7 % (0.0-1.0); EOSINOPHILS # (AUTO) 0.2 (0.0-0.4); EOSINOPHILS % 4.5 % (0.0-6.0); HEMOGLOBIN 8.5 g/dL (12.0-16.0); LYMPHOCYTES # (AUTO) 0.9 (1.0-3.2); LYMPHOCYTES % 21.1 % (18.0-39.1); MEAN CORPUSCULAR HEMOGLOBIN 27.5 pg (28-32); MEAN CORPUSCULAR HGB CONC 30.4 g/dL (31-35); MEAN CORPUSCULAR VOLUME 90.6 fL (81-99); MONOCYTES # (AUTO) 0.2 (0.2-0.8); MONOCYTES % 5.2 % (4.4-11.3); NEUTROPHILS # (AUTO) 2.7 (2.1-6.9); NEUTROPHILS % 67.8 % (38.7-80.0); PLATELET COUNT 249 x10e3/uL (140-360); RED BLOOD COUNT 3.09 x10e6/uL (3.6-5.1); RED CELL DISTRIBUTION WIDTH 17.7 % (11.7-14.4)
[2017-06-01 10:25] LABS: ANION GAP 13.5 mmol/L (8-16); CALCIUM 7.9 mg/dL (8.4-10.2); CREATININE, SERUM 2.68 mg/dL (0.57-1.11); POTASSIUM 3.5 mmol/L (3.5-5.1)
[2017-06-01] MEDS: DOCUSATE SODIUM 100 MG CAP PO SCH ×2 (11:25→17:52)
[2017-06-01] MEDS: POLYETHYLENE GLYCOL 3350 17 GM PACK PO SCH (11:25)
[2017-06-01 12:00] VITALS: BP 122/78
[2017-06-01 16:00] VITALS: BP 114/78
--- NOTE | 2017-06-01 16:11 | Consultation ---
DATE OF CONSULTATION: June 01, 2017 PRIMARY CARE PHYSICIAN: Dr. Mukherjee. REASON OF CONSULTATION: Anemia. HPI: She is a very pleasant 31-year-old female, known to me from her previous hospital admission and symptomatic anemia. She has a history of diabetes, neurogenic bladder requires self catheterization, gastroparesis, status post PEG tube placement, diabetic neuropathy, end-stage renal disease on hemodialysis, congestive heart failure, diabetic foot ulcer, epilepsy, and symptomatic anemia. Her last blood transfusion was in March. She is currently in hospital with some blood in the sputum. Patient is also complaining of lower extremities pain. No fever or chills reported. She was also diagnosed with lupus. At the time of admission, patient's blood work showed hemoglobin was 8, white cell count 5, platelet count 302. She is mildly coagulopathic. Anemia workup shows very elevated ferritin consistent with anemia of chronic disease. No active GI bleed noted. PAST MEDICAL HISTORY: Diabetes with diabetic neuropathy including neurogenic bladder, gastroparesis, history of renal disease, nephropathy, congestive heart failure, status post AICD placement, left foot diabetic ulcer, and epilepsy. PAST SURGICAL HISTORY: AICD placement, cholecystectomy, PEG tube placement. ALLERGIES: REVIEWED PER NURSING LIST. MEDICATIONS: List reviewed. FAMILY HISTORY: Reviewed, noncontributory. SOCIAL HISTORY: No smoking, alcohol, or drugs. REVIEW OF SYSTEMS: Twelve-point review as per the HPI. PHYSICAL EXAMINATION GENERAL: Alert, awake, communicative. HEENT: Normocephalic, atraumatic. Sclerae pale. Conjunctivae clear. NECK: Supple. CHEST: Clear to auscultation. ABDOMEN: Soft and nontender. PEG placed. EXTREMITIES: No edema. SKIN: Chronic skin changes. Right heel tender. Skin dry. LABS AND IMAGING: Reviewed. ASSESSMENT AND PLAN: Patient with history of multiple medical conditions. I am currently following for; 1. Anemia. Patient has symptomatic anemia with fatigue, lethargic, and tiredness. Her hemoglobin is running between 8 and 8.5. Anemia workup already showed anemia of chronic disease. Recommendation to start patient on Procrit treatment. Try to avoid frequent blood drawn. We will monitor patient closely. 2. Mild coagulopathy. Patient has a history of lupus, could elevate APTT. RECOMMENDATIONS 1. Close observation. 2. End-stage renal disease, currently following bending press operator. 3. Hemoptysis and hematemesis one episode, clinically doing better. GI on the case. 4. Diabetic neuropathy including gastroparesis, status post PEG. Continue current care. At this point, we will continue remaining care. We will follow patient closely. Job#: [id number] ASHLEIGH
[2017-06-01 20:00] VITALS: BP 115/79
[2017-06-01] MEDS: MIRTAZAPINE 15 MG TAB PO SCH (20:38)
[2017-06-01] MEDS: CEFTRIAXONE SOD 1 GM VIAL IV SCH (20:38)
[2017-06-02] VITALS: BP 106/79
[2017-06-02] MEDS: PROMETHAZINE 12.5MG/ NACL 0.9% 12.5 MG/50 ML BAG IV PRN ×4 (00:27→21:45)
[2017-06-02] MEDS: DIPHENHYDRAMINE HCL INJ 50 MG/ML VIAL IV PRN ×4 (00:27→21:45)
[2017-06-02] MEDS: MORPHINE SULFATE 2 MG/ML SYR IV PRN ×4 (00:27→21:45)
[2017-06-02 04:00] VITALS: BP 111/75
[2017-06-02 06:27] LABS: BASOPHILS % 0.4 % (0.0-1.0); EOSINOPHILS # (AUTO) 0.2 (0.0-0.4); EOSINOPHILS % 3.6 % (0.0-6.0); HEMATOCRIT 28.4 % (34.2-44.1); HEMOGLOBIN 8.1 g/dL (12.0-16.0); LYMPHOCYTES # (AUTO) 1.3 (1.0-3.2); LYMPHOCYTES % 25.7 % (18.0-39.1); MEAN CORPUSCULAR HEMOGLOBIN 26.8 pg (28-32); MEAN CORPUSCULAR HGB CONC 28.5 g/dL (31-35); MONOCYTES # (AUTO) 0.3 (0.2-0.8); MONOCYTES % 5.5 % (4.4-11.3); NEUTROPHILS # (AUTO) 3.2 (2.1-6.9); NEUTROPHILS % 64.2 % (38.7-80.0); PLATELET COUNT 258 x10e3/uL (140-360); RED BLOOD COUNT 3.02 x10e6/uL (3.6-5.1); RED CELL DISTRIBUTION WIDTH 17.8 % (11.7-14.4)
[2017-06-02 06:45] LABS: ANION GAP 12.9 mmol/L (8-16); CALCIUM 7.9 mg/dL (8.4-10.2); CREATININE, SERUM 3.29 mg/dL (0.57-1.11); POTASSIUM 3.9 mmol/L (3.5-5.1)
[2017-06-02] MEDS: BUDESONIDE/FORMOTEROL 160/4.5MCG INHALER INH SCH ×2 (07:10→19:55)
[2017-06-02] MEDS: ALBUTEROL SULF 0.083% NEB SOLN 3 ML NEB INH SCH ×2 (07:10→19:55)
[2017-06-02] MEDS: INSULIN REGULAR, HUMAN 100 UNIT/1 ML 3ML VIAL SQ SCH ×4 (07:30→20:28)
[2017-06-02 08:00] VITALS: BP 114/71
[2017-06-02] MEDS: POLYETHYLENE GLYCOL 3350 17 GM PACK PO SCH (09:00)
[2017-06-02] MEDS: VITAMIN B COMP W C PO SCH (09:00)
[2017-06-02] MEDS: FOLIC ACID PO SCH (09:00)
[2017-06-02] MEDS: SUCRALFATE 1 GM/10 ML SUSP PO SCH ×4 (09:15→20:28)
[2017-06-02] MEDS: METOCLOPRAMIDE HCL 10 MG TAB PO SCH ×4 (09:15→20:28)
[2017-06-02] MEDS: CLONAZEPAM 1 MG TAB PO SCH ×3 (09:16→20:28)
[2017-06-02] MEDS: DILTIAZEM HCL 30 MG TAB PO SCH ×4 (09:16→20:28)
[2017-06-02] MEDS: CARVEDILOL 12.5 MG TAB PO SCH ×2 (09:16→17:12)
[2017-06-02] MEDS: CYCLOBENZAPRINE HCL 10 MG TAB PO SCH ×2 (09:16→17:12)
[2017-06-02] MEDS: LEVETIRACETAM 500 MG TAB PO SCH ×2 (09:16→17:12)
[2017-06-02] MEDS: DOCUSATE SODIUM 100 MG CAP PO SCH ×2 (09:16→17:12)
[2017-06-02] MEDS: PANTOPRAZOLE SODIUM 40 MG SUSPDR.PKT PO SCH ×2 (09:16→17:12)
[2017-06-02] MEDS: METHOCARBAMOL 500 MG TAB PO SCH ×2 (09:16→17:12)
[2017-06-02] MEDS: PHENYTOIN SODIUM EXT REL 100 MG CAP PO SCH ×2 (09:16→20:28)
[2017-06-02] MEDS: FUROSEMIDE 40 MG TAB PO SCH ×2 (09:16→17:12)
[2017-06-02] MEDS: FLUTICASONE PROPIONATE NASAL SPRAY NS SCH ×2 (09:16→17:12)
[2017-06-02] MEDS: DICLOFENAC EPOLAMINE 1.3% PATCH TP SCH ×2 (09:17→20:29)
[2017-06-02] MEDS: UREA 40% CRM TP SCH ×2 (09:17→17:13)
[2017-06-02 12:00] VITALS: BP 113/74
[2017-06-02 16:00] VITALS: BP 112/77
[2017-06-02 20:09] VITALS: BP 101/63
[2017-06-02] MEDS: MIRTAZAPINE 15 MG TAB PO SCH (20:28)
[2017-06-02] MEDS: CEFTRIAXONE SOD 1 GM VIAL IV SCH (20:29)
[2017-06-03] VITALS: BP 99/66
[2017-06-03] MEDS: DIPHENHYDRAMINE HCL INJ 50 MG/ML VIAL IV PRN ×4 (04:50→17:11)
[2017-06-03] MEDS: MORPHINE SULFATE 2 MG/ML SYR IV PRN ×3 (04:51→16:20)
[2017-06-03] MEDS: PROMETHAZINE 12.5MG/ NACL 0.9% 12.5 MG/50 ML BAG IV PRN ×2 (04:51→12:40)
[2017-06-03 06:22] LABS: BASOPHILS % 0.4 % (0.0-1.0); EOSINOPHILS # (AUTO) 0.2 (0.0-0.4); EOSINOPHILS % 3.2 % (0.0-6.0); HEMATOCRIT 27.4 % (34.2-44.1); LYMPHOCYTES # (AUTO) 1.3 (1.0-3.2); LYMPHOCYTES % 23.6 % (18.0-39.1); MEAN CORPUSCULAR HGB CONC 28.8 g/dL (31-35); MEAN CORPUSCULAR VOLUME 93.5 fL (81-99); MONOCYTES # (AUTO) 0.3 (0.2-0.8); MONOCYTES % 5.1 % (4.4-11.3); NEUTROPHILS # (AUTO) 3.8 (2.1-6.9); NEUTROPHILS % 67.3 % (38.7-80.0); PLATELET COUNT 254 x10e3/uL (140-360); RED BLOOD COUNT 2.93 x10e6/uL (3.6-5.1); RED CELL DISTRIBUTION WIDTH 18.2 % (11.7-14.4)
[2017-06-03 06:29] LABS: HEMOGLOBIN 7.9 g/dL (12.0-16.0)
[2017-06-03] MEDS ORDERED: SODIUM CHLORIDE 0.9% 250ML 250 ML IV ONE (06:45)
[2017-06-03] MEDS ORDERED: EPOETIN ALFA 10000 UNIT/ML VIAL SC SCH (07:15)
[2017-06-03] MEDS: BUDESONIDE/FORMOTEROL 160/4.5MCG INHALER INH SCH (07:20)
[2017-06-03] MEDS: ALBUTEROL SULF 0.083% NEB SOLN 3 ML NEB INH SCH ×2 (07:20→13:55)
[2017-06-03 07:24] LABS: ANION GAP 12.9 mmol/L (8-16); CALCIUM 7.8 mg/dL (8.4-10.2); CREATININE, SERUM 3.83 mg/dL (0.57-1.11); POTASSIUM 3.9 mmol/L (3.5-5.1)
[2017-06-03] MEDS: INSULIN REGULAR, HUMAN 100 UNIT/1 ML 3ML VIAL SQ SCH ×3 (07:30→16:30)
[2017-06-03 07:44] VITALS: BP 126/90
[2017-06-03 08:05] LABS: EOSINOPHILS % (MANUAL) 5 % (0-7); LYMPHOCYTES % (MANUAL) 20 % (19-48); MONOCYTES % (MANUAL) 4 % (3.4-9.0); NEUTROPHILS % (MANUAL) 71 % (40-74)
[2017-06-03 08:10] LABS: ANISOCYTOSIS MODERATE; POIKILOCYTOSIS MODERATE; POLYCHROMASIA FEW
[2017-06-03 08:11] LABS: HYPOCHROMASIA MODERATE; PLATELET ESTIMATE ADEQUATE; PLATELET MORPHOLOGY COMMENT NORMAL; RBC MORPHOLOGY COMMENT ABNORMAL
[2017-06-03] MEDS: DOCUSATE SODIUM 100 MG CAP PO SCH ×2 (09:00→16:36)
[2017-06-03] MEDS: POLYETHYLENE GLYCOL 3350 17 GM PACK PO SCH (09:00)
[2017-06-03] MEDS: CARVEDILOL 12.5 MG TAB PO SCH ×2 (09:00→17:03)
[2017-06-03] MEDS: FUROSEMIDE 40 MG TAB PO SCH ×2 (09:00→16:37)
[2017-06-03] MEDS: DILTIAZEM HCL 30 MG TAB PO SCH ×3 (09:00→16:38)
[2017-06-03] MEDS: FOLIC ACID PO SCH (09:00)
[2017-06-03] MEDS: VITAMIN B COMP W C PO SCH (09:00)
--- NOTE | 2017-06-03 09:20 | Progress Note ---
DATE: June 03, 2017 Patient was seen and examined today. Patient appeared comfortable. No worsening events noted. No chest pain, headache or dizziness. Current hemoglobin went up to 7.9. Hemoglobin was ranging between 8 and 9. She was supposed to get the Epogen yesterday. She did not get it. She will be taking it today. Her chemistry shows persistent worsening renal insufficiency. Her ferritin level was very high and consistent with anemia of chronic disease. PHYSICAL EXAMINATION GENERAL: Alert, awake and communicative. HEENT: Normocephalic and atraumatic. Sclerae pink. Conjunctivae clear. NECK: Supple. CHEST: Decreased breath sounds in the bases. CARDIOVASCULAR: Regular rate and rhythm. EXTREMITIES: No edema. Chronic skin changes. Right heel tender. LABS AND IMAGING: Reviewed. ASSESSMENT AND PLAN 1. Patient with a history of anemia: Workup shows anemia of chronic disease. Started on Procrit treatment. Has not received any dose. Her hemoglobin dropped to 7.9. Recommendation is continue Procrit. Blood transfusion if hemoglobin drops below 7.5. Monitor hemoglobin very closely. She will not benefit with iron infusion because of elevated ferritin this morning. 2. Mild coagulopathy because of history of lupus. 3. End-stage renal disease, on hemodialysis. 4. Diabetic neuropathy with gastroparesis: Status post percutaneous endoscopic gastrostomy. Will continue remaining care. Will follow the patient. Job#: [id number] ULISSES
[2017-06-03 09:54] VITALS: BP 126/90
[2017-06-03] MEDS: FLUTICASONE PROPIONATE NASAL SPRAY NS SCH ×2 (10:10→17:00)
[2017-06-03] MEDS: SUCRALFATE 1 GM/10 ML SUSP PO SCH ×3 (10:10→17:03)
[2017-06-03] MEDS: METOCLOPRAMIDE HCL 10 MG TAB PO SCH ×3 (10:10→17:03)
[2017-06-03] MEDS: PANTOPRAZOLE SODIUM 40 MG SUSPDR.PKT PO SCH ×2 (10:11→17:04)
[2017-06-03] MEDS: CYCLOBENZAPRINE HCL 10 MG TAB PO SCH ×2 (10:11→17:04)
[2017-06-03] MEDS: CLONAZEPAM 1 MG TAB PO SCH ×2 (10:11→17:03)
[2017-06-03] MEDS: PHENYTOIN SODIUM EXT REL 100 MG CAP PO SCH (10:11)
[2017-06-03] MEDS: LEVETIRACETAM 500 MG TAB PO SCH ×2 (10:11→17:04)
[2017-06-03] MEDS: DICLOFENAC EPOLAMINE 1.3% PATCH TP SCH (10:12)
[2017-06-03] MEDS: UREA 40% CRM TP SCH ×2 (10:12→17:00)
[2017-06-03] MEDS: METHOCARBAMOL 500 MG TAB PO SCH ×2 (10:12→17:03)
[2017-06-03 11:59] VITALS: BP 127/76
[2017-06-03] MEDS ORDERED: SODIUM CHLORIDE 0.9% 1000ML 2,000 ML ONE (12:02)
[2017-06-03] MEDS ORDERED: SODIUM CHLORIDE 0.9% 250ML 500 ML ONE (12:46)
[2017-06-03] MEDS ORDERED: CYCLOBENZAPRINE10 MG PO (15:01)
[2017-06-03] MEDS ORDERED: MIRALAX17 GM PO (15:01)
[2017-06-03] MEDS ORDERED: EPOGEN10000 UNIT SC (15:01)
[2017-06-03] MEDS ORDERED: SUCRALFATE1 G/10 ML PO (15:01)
[2017-06-03] MEDS ORDERED: Fluticasone Propionate NS (15:01)
[2017-06-03] MEDS ORDERED: FLECTOR1 EACH TP (15:01)
[2017-06-03] MEDS ORDERED: CEFUROXIME250 MG PO (15:01)
[2017-06-03] MEDS ORDERED: COLACE100 M1 PO (15:01)
[2017-06-03] MEDS ORDERED: UREA TP (15:01)
[2017-06-03] MEDS ORDERED: HUMULIN R100 UNIT/2 SQ (15:01)
[2017-06-03 16:05] VITALS: BP 128/106
[2017-06-03] MEDS ORDERED: ALBUMIN HUMAN 12.5GM / 50ML IV PRN (16:15)
[2017-06-03] MEDS ORDERED: SODIUM CHLORIDE 0.9% 1000ML 2,000 ML IV PRN (16:15)
[2017-06-03] MEDS ORDERED: HEPARIN SOD (PORCINE) 1000 UNIT/ML SDV IV PRN (16:15)
[2017-06-03] MEDS ORDERED: MANNITOL 25% 12.5GM/50 ML VIAL IV PRN (16:15)
[2017-06-03] MEDS ORDERED: SODIUM CHLORIDE 0.9% 250ML 500 ML IV PRN (16:15)
--- NOTE | 2017-06-03 19:55 | Discharge Summary ---
PERTINENT HISTORY AND PHYSICAL FINDINGS: The history of present illness indicated that this 31-year-old woman with multiple medical history had developed some blood in her sputum and stated that she was also having her AICD firing a couple of times at home. The patient also complained of right heel pain. She denied any fever, chills, sweats. She denied any other symptoms. She had intermittent nausea and has a PEG tube that was previously placed that she used for feeding and medications. She denied any shortness of breath. Past medical history significant for diabetes mellitus type 1, neurogenic bladder requiring self-catheterization, gastroparesis and dysphagia status post PEG tube placement, diabetic neuropathy, end-stage renal disease on hemodialysis, diabetic nephropathy, systolic congestive heart failure, last ejection fraction 40% to 45%, a left heel diabetic foot ulcer, and epilepsy. She has a past surgical history of AICD placement, cholecystectomy, PEG tube placement. She lives with her mother. She has no history of alcohol, illicits or cigarettes. ADMITTING DIAGNOSES INCLUDED 1. Hematemesis. 2. Normocytic anemia, moderate. 3. Firing of automatic implantable cardioverter-defibrillator. 4. Right heel tenderness. 5. End-stage renal disease and on hemodialysis. 6. Systolic congestive heart failure. 7. Urinary tract infection. 8. Chronic pain syndrome. 9. Epilepsy. 10. Hypertension. HOSPITAL COURSE: The patient was seen and evaluated for the hematemesis. Gastroenterology had been consulted. Per the gastroenterology consult note, the patient does have a history of clogged G tube. The tube was declogged by the nursing staff and tube feeding to be initiated at night. Tolerating p.o. diet well with ADA/renal diet. Some nausea, no vomiting. No mention of the hematemesis in the assessment and plan. Patient usually eats during the day and uses the PEG tube at night. No mention of melena or bright red blood per rectum. Fecal occult blood test was positive, but the patient was also having questionable bleeding from the vagina and/or urinary tract. Patient was seen by Hematology, Dr. Devi. Per his consultation note, diagnoses include symptomatic anemia with fatigue, lethargy and tiredness. Hemoglobin running between 8 and 8.5. Anemia workup had already shown anemia of chronic disease, and recommendations were to start the patient on Procrit treatment, which was done. Mild coagulopathy. Patient has a history of lupus, which could elevate the PTT. Has also noted that patient has end-stage renal disease, which can also contribute to the anemia. She received 2 units of blood today during dialysis. Regarding the firing of automatic implantable cardioverter-defibrillator, the patient was seen by Dr. Figueroa with cardiology for evaluation. The ICD was found to be functioning normally. Regarding her right heel tenderness, Podiatry saw the patient, namely Dr. Calloway, and had seen the patient in the past. Dr. Calloway diagnosed her with dyshidrotic eczema with concomitant heel pain and diffuse hyperkeratosis. It was recommended that the patient receive a combination of Urea 40% lotion in conjunction with diclofenac topical to be applied on a b.i.d. basis. X-rays of bilateral feet were recommended. Regarding the end-stage renal disease, the patient continued on hemodialysis Saturday/Saturday/Saturday while hospitalized and was seen by Dr. Salomon with nephrology. The patient was euvolemic, and Dr. Figueroa with cardiology also saw the patient for the systolic congestive heart failure which is chronic. Regarding the urinary tract infection, she received Rocephin, or ceftriaxone, and will continue to receive cefuroxime by mouth at home. Urine culture collected on May 30 was inconclusive as it showed contamination. The patient continued to receive her home pain medication for her chronic pain syndrome. Dilantin and Keppra were continued for the epilepsy. Beta blockers were continued for the hypertension. Today, on the day of discharge, the patient stated that she felt . She says that her PEG has been clogging up. However, documentation reveals that it was unclogged. She states that she has seen a new category director before, but the mother and the patient do not know the doctor's name. They think it starts with a "D." Patient expresses abdominal pain around the PEG site incision and in the right upper quadrant, a level 8 out of 10. Her last hemodialysis was Saturday, and she is due for dialysis again today. Original [facility] doctor was Dr. Galindo; however, this position relocated to [place]. Last menstrual period was 2012. She does complain of shortness of breath and states she uses oxygen at home. Mother states that she needs a heart and kidney transplant. Hospice was discussed. The patient and the family are wanting to stay 2 additional days to determine if the bleeding is vaginal or urological. However, this can be worked up on an outpatient basis. The admitting labs and diagnostics include WBC 5.75, hemoglobin 8.4, hematocrit 28.3, platelets 302. PT 15, INR 1.28, PTT 51.5. Admitting chemistry revealed sodium 139, potassium 3.4, chloride 104, CO2 24, BUN 36, creatinine 3.93, estimated GFR 16, glucose 81, calcium 8.2. AST 11, ALT 7, alk phos 173. Creatine kinase 67, CK-MB 2.80, troponin I 0.01. Total protein 7.9, albumin 2.6. TSH 1.923. Phenytoin level on June 01 was 3.99. Original urinalysis showed leukocyte esterase 1+, urine WBCs 6-10, urine bacteria moderate, which is indicative of a urinary tract infection. Hepatitis A, hepatitis B surface antigen, hepatitis B core, IgM and hepatitis C antibody were all negative. The hepatitis C antibody was 0.1. Today, on the day of discharge, the WBC was 5.69, hemoglobin 7.9, hematocrit 27.4, platelets 254. Sodium 135, potassium 3.9, chloride 105, CO2 21, BUN 50, creatinine 3.83, estimated GFR 17, glucose 138, calcium 7.8. Patient had a tunneled dialysis catheter replaced on May [address] Jose Salmeron. Chest x-ray on May 30 showed unchanged right dialysis catheter, left Port-A-Cath and left AICD, mild central pulmonary venous congestion, no overt pulmonary edema, no consolidation or effusion. OBJECTIVE PHYSICAL EXAMINATION VITAL SIGNS: Today, the day of discharge, temperature 96.5, heart rate 109, blood pressure 126/90, respirations 18, oxygen saturation 100%. GENERAL: No acute distress lying supine in bed. LUNGS: Clear to auscultation, unlabored. Oxygen at 2 liters via nasal cannula. HEENT: Extraocular movements intact. NECK: Supple. No lymphadenopathy or thyromegaly. CARDIOVASCULAR: Regular rate and rhythm without murmur. ABDOMEN: Bowel sounds positive, somewhat hypoactive, slightly distended. She does have PEG/jejunal tube which is clamped. EXTREMITIES: Without pitting edema. No signs or symptoms of DVT. She has Christopher wraps around each heel. NEUROLOGICAL: GCS 15. Nonfocal. DISCHARGE DIAGNOSES 1. Complaints of hematemesis on admission. 2. Anemia. 3. Complaints of vaginal versus urological bleeding. 4. "ICD fired." 5. Right heel tenderness/dyshidrotic eczema, diffuse hyperkeratosis. 6. End-stage renal disease with hemodialysis Saturday/Saturday/Saturday. 7. Systolic congestive heart failure. 8. Urinary tract infection. 9. Chronic pain syndrome. 10. Epilepsy. Case was discussed with Dr. Mukherjee, with case management and with registered nurse as well as the patient's mother. Dictated by: Jorge Troncoso NP JOHN MUKHERJEE MD Job#: [id number] EV
[2017-06-04] MEDS ORDERED: EPOETIN ALFA 10000 UNIT/ML VIAL SC SCH (09:00)
== END 2017-06-03 18:37 | disposition home health service (06) | DRG 377 ==
LOC: ER 16:31 → ERHOLD 21:24 → EDBEDREQSVC 21:33 → IMCU 22:36 → MED/SURG2 05-31 12:52
PROVIDERS: ADMIT Internal Medicine; ATTEND Internal Medicine
PROC: B51V1ZZ Fluoroscopy of Other Veins using Low Osmolar Contrast (ICD-10-PCS; principal; 2017-05-31)
PROC: 05PYX3Z Removal of Infusion Device from Upper Vein, External Approach (ICD-10-PCS; principal; 2017-05-31)
PROC: 02HV33Z Insertion of Infusion Device into Superior Vena Cava, Percutaneous Approach (ICD-10-PCS; principal; 2017-05-31)
PROC: 5A1D70Z Performance of Urinary Filtration, Intermittent, Less than 6 Hours Per Day (ICD-10-PCS; principal; 2017-05-31)
PROC: 0JH63XZ Insertion of Tunneled Vascular Access Device into Chest Subcutaneous Tissue and Fascia, Percutaneous Approach (ICD-10-PCS; principal; 2017-05-31)
PROC: 30233N1 Transfusion of Nonautologous Red Blood Cells into Peripheral Vein, Percutaneous Approach (ICD-10-PCS; 2017-06-03)
PROC: 5A1D70Z Performance of Urinary Filtration, Intermittent, Less than 6 Hours Per Day (ICD-10-PCS; 2017-06-03)
DX: K92.0 Hematemesis (principal); N18.6 End stage renal disease; I13.2 Hypertensive heart and chronic kidney disease with heart failure and with stage 5 chronic kidney disease, or end stage renal disease; D68.8 Other specified coagulation defects; I42.9 Cardiomyopathy, unspecified; E11.22 Type 2 diabetes mellitus with diabetic chronic kidney disease; E11.43 Type 2 diabetes mellitus with diabetic autonomic (poly)neuropathy; K31.84 Gastroparesis; T82.41XA Breakdown (mechanical) of vascular dialysis catheter, initial encounter; I50.22 Chronic systolic (congestive) heart failure; N39.0 Urinary tract infection, site not specified; K94.23 Gastrostomy malfunction; L03.119 Cellulitis of unspecified part of limb; G40.909 Epilepsy, unspecified, not intractable, without status epilepticus; D63.1 Anemia in chronic kidney disease; L30.1 Dyshidrosis [pompholyx]; L85.9 Epidermal thickening, unspecified; N31.9 Neuromuscular dysfunction of bladder, unspecified; Z91.15 Patient's noncompliance with renal dialysis; E21.3 Hyperparathyroidism, unspecified; I25.10 Atherosclerotic heart disease of native coronary artery without angina pectoris; M32.9 Systemic lupus erythematosus, unspecified; D63.8 Anemia in other chronic diseases classified elsewhere; M79.672 Pain in left foot; M79.671 Pain in right foot; R09.89 Other specified symptoms and signs involving the circulatory and respiratory systems; G89.4 Chronic pain syndrome; Z95.810 Presence of automatic (implantable) cardiac defibrillator; Z99.81 Dependence on supplemental oxygen; Z79.4 Long term (current) use of insulin; Z99.2 Dependence on renal dialysis
CPT/HCPCS: 36415; 36430; 36565; 71045; 74470; 77001; 80048; 80053; 80185; 81001; 81025; 82270; 82550; 82553; 82728; 82948; 83540; 83605; 83735; 83880; 84443; 84466; 84484; 85025; 85610; 85730; 86677; 86705; 86803; 86850; 86900; 86920; 87086; 87340; 90962; 93005; 94640; 99284; C1750; C1751; J0696; J1200; J1642; J1644; J2001; J2250; J2270; J2550; J7030; J7050; P9016; Q4081

== ENCOUNTER 2017-06-05 10:35 | Emergency (ER) | payer OTHER ==
[~2017-06-05] VITALS: Ht 161.3 cm; Wt 68.5 kg
[~2017-06-05 10:35] MED LIST changes: +COLACE100 M1 PO; +CYCLOBENZAPRINE10 MG PO; +CYCLOBENZAPRINE5 MG PO; +DIPHENHYDR50 MG/1 ML IV; +EPOGEN10000 UNIT SC; +FLECTOR1 EACH TP; +KEPPRA500 MG PO; +MORPHINE-NS2 MG/1 ML IV; +PHENERGAN25 MG/1 ML IV; +UREA TP
--- OUTSIDE RECORDS SUMMARY | 2017-06-05 10:39 | XMS REPORT | Continuity of Care Document ---
Author Author [facility] Organization [facility] Address [address] [place] [address] Phone Unavailable Care Team Providers Care Auto Service Representative Name Role Phone JOHN BAHENA MD PCP Insurance Providers Guarantor Sonam Bermeo Address [address] [place] [address] Email [email or web address] Payer [employer] Policy Number [id number] Subscriber's Name Sonam Bermeo Relationship 18 Self / Same As Patient Group Number [id number] Group Name [id number] Effective Date 17 Advance Directives Directive Response Recorded Date/Time Does the patient have an advance directive? No 05/30/17 11:00pm If yes, is advance directive on file with [facility]? No 05/30/17 11:00pm If not on file with [facility] will patient provide a copy? Yes 05/30/17 11:00pm Do you have a Directive to Physician? No 05/30/17 9:14pm Do you have a Medical Power of Sas Architect? No 05/30/17 9:14pm Do you have an out of hospital Do Not Resuscitate Order? No 05/30/17 9:14pm Do you have any special needs we should be aware of? No 05/30/17 9:14pm Do you have a support person here with you today? Yes 05/30/17 9:14pm Did patient receive Notice of Privacy Practices? Yes 05/30/17 9:14pm Did patient receive patient rights and responsibilities? Yes 05/30/17 9:14pm Problems Medical Problem Onset Date Status Abdominal pain 09/05/2015 Acute Acute renal failure (ARF) 07/30/2014 Acute Anemia 02/26/2015 Acute Anemia 09/29/2015 Acute Anemia, chronic renal failure Unknown Chest pain Unknown Acute Cystitis 07/01/2014 Acute Dehydration 07/30/2014 Acute Diabetes 07/01/2014 Acute ESRD (end stage renal disease) Unknown Acute ESRD (end stage renal disease) Unknown ESRD (end stage renal disease) on dialysis 09/29/2015 Acute Edema 09/29/2015 Acute End stage renal disease on dialysis due to type 2 diabetes mellitus 2015 Acute Gastroparesis 07/30/2014 Acute Gastroparesis Unknown Gastroparesis diabeticorum Unknown Hyperkalemia 10/23/2015 Acute Hypertension 12/17/2014 Acute Malaise and fatigue 12/17/2014 Acute Myoclonic disorder 10/23/2015 Acute Pelvic pain Unknown Renal failure Unknown S3 (third heart sound) 01/02/2016 Acute UTI (lower urinary tract infection) 07/30/2014 Acute UTI (urinary tract infection) 01/02/2016 Acute Uncontrolled diabetes mellitus 12/17/2014 Acute Volume overload 10/23/2015 Acute Vomiting 07/30/2014 Acute Vomiting and diarrhea Unknown Medications Current Home Medications Medication Dose Units Route Directions Days Qty Instructions Start Date Albuterol Sulfate 0.63 Mg/3 Ml Vial.neb 0.63 Mg Inhalation Every 6 Hours While Awake Albuterol Sulfate (Albuterol Sulfate Hfa) 8.5 Gm Hfa.aer.ad 2 Inh Inhalation As Needed as needed for Shortness Of Breath Budesonide/Formoterol Fumarate (Symbicort 160-4.5 Mcg Inhaler) 10.2 Gm Hfa.aer.ad 2 Inh Inhalation Twice A Day 1 04/11/17 Carvedilol (Coreg) 12.5 Mg Tab 25 Mg Oral Twice A Day 30 Days 06/02 Cefuroxime Axetil (Cefuroxime) 250 Mg Tablet 250 Mg Oral Every 12 Hours 7 Days 06/03/17 Clonazepam 1 Mg Tablet 2 Mg Oral Three Times A Day Cyclobenzaprine Hcl (Flexeril) 5 Mg Tablet 10 Mg Oral Twice A Day Cyclobenzaprine Hcl 10 Mg Tablet 10 Mg Oral Twice A Day 30 Days Diclofenac Epolamine (Flector) 1 Each Adh..patch 1 Patch Topical Every 12 Hours 30 Days 06/03/17 Diltiazem Hcl (Cardizem) 30 Mg Tablet 30 Mg Oral Four Times Daily 30 Days 06/02/16 Diphenhydramine Hcl (Benadryl) 25 Mg Capsule 25 Mg Oral Four Times Daily Diphenhydramine Hcl 50 Mg/1 Ml Disp.syrin 50 Mg Intraven .before Dialysis Diphenoxylate Hcl/Atropine (Lomotil Tablet) 1 Each Tablet 1 Tab Oral As Needed as needed for Diarrhea Docusate Sodium (Colace) 100 Mg Cap 100 Mg Oral As Needed for Constipation 30 Cap Docusate Sodium (Colace) 100 Mg Capsule 100 Mg Oral Twice A Day 30 Days 06/03/17 Epoetin Bharath (Epogen) 10,000 Unit/1 Ml Vial 10,000 Unit Subcutaneously Every Saturday, Saturday, And Saturday 30 Days 06/03/17 Fluticasone Propionate 1 Ea Zanoni 1 Ea Nasal Twice A Day 1 Fluticasone Propionate 1 Ea Zanoni 0 Ea Nasal Twice A Day 30 Days Folic Acid/Vitamin B Comp W-C (Dialyvite Tablet) 1 Each Tablet 1 Tab Oral Daily Furosemide (Lasix) 40 Mg Tablet 80 Mg Oral Twice A Day 14 Days 30 Tab 12/20/16 Hydroxyzine Hcl 25 Mg Tablet 25 Mg Oral Three Times A Day as needed for Anxiety 30 Days 04/11/17 Insulin Regular, Human (Humulin R) 100 Unit/1 Ml Vial 7 Units Sub-Q As Needed Insulin Regular, Human (Humulin R) 100 Unit/1 Ml Vial 0 Unit Sub-Q Before Meals And At Bedtime 14 Days 12/20/16 Insulin Regular, Human (Humulin R) 100 Unit/1 Ml Vial 0 Unit Sub-Q Before Meals And At Bedtime 30 Days 02/19/18 Ipratropium [place] 0.2 Mg/1 Ml Solution 2.5 Ml Nebullizer As Needed Levetiracetam (Keppra) 500 Mg Tablet 500 Mg Oral Twice A Day Lorazepam (Ativan) 2 Mg Tablet 2 Mg Oral Every Two Hours Methocarbamol 500 Mg Tablet 500 Mg Oral Twice A Day Metoclopramide Hcl 10 Mg Tablet 10 Mg Oral Before Meals And At Bedtime 30 Days 04/11/17 Mirtazapine 15 Mg Tab 15 Mg Oral Bedtime 14 Days 04/11/17 Morphine Sulfate (Ms Contin) 30 Mg Tablet.er 30 Mg Oral Every 6 Hours as needed for Pain Morphine Sulfate In 0.9 % Nacl (Morphine-Ns 2 Mg/Ml Syringe) 2 Mg/1 Ml Disp.syrin 4 Mg Intraven Q3hr as needed for Pain Pantoprazole Sodium (Protonix) 40 Mg Suspdr.pkt 40 Mg Oral Twice A Day 30 Days 01/07/17 Phenytoin Sodium Extended (Dilantin) 100 Mg Capsule 100 Mg Oral Every 12 Hours Polyethylene Glycol 3350 (Miralax) 17 Gm Powd.pack 17 Gm Oral Daily 30 Days 06/03/17 Promethazine Hcl 25 Mg Tablet 50 Mg Oral Three Times A Day as needed for Nausea Promethazine Hcl (Phenergan) 25 Mg/1 Ml Ampul 25 Mg Intraven Every 4 Hours Sucralfate 1 G/10 Ml Susp 1 G Oral Before Meals And At Bedtime 30 Days 06/03/17 Sucralfate 1 Gm Tablet 1 Gm Oral Three Times A Day 30 Days 04/11/17 Temazepam (Restoril) 15 Mg Capsule 15 Mg Oral Bedtime as needed for Insomnia 14 04/11/17 Urea 85.05 Gm Cr 0 Gm Topical Twice A Day 30 Days 06/03/17 Zolpidem Tartrate (Ambien) 10 Mg Tablet 10 Mg Oral Bedtime as needed for Sleep 30 Tab Past Home Medications Medication Directions Ordered Status Albuterol Sulfate 0.63 Mg/3 Ml Vial.neb, Every 6 Hours as needed for Wheezing Discontinued Alprazolam (Xanax) 0.5 Mg Tablet, 0.5 Mg Oral Three Times A Day Discontinued Alprazolam (Xanax) 0.5 Mg Tablet, 0.5 Mg Oral Three Times A Day Discontinued Alprazolam (Xanax Xr) 1 Mg Tab.er.24h, 1 Mg Oral Daily Discontinued Amlodipine Besylate 10 Mg Tablet, 10 Mg Oral Daily Discontinued Amlodipine Besylate 5 Mg Tablet, 5 Mg Oral Daily Discontinued Baclofen 10 Mg Tablet, 10 Mg Oral Twice A Day Discontinued Bisacodyl (Dulcolax) 10 Mg Supp.rect, Mg Oral Every 7 Days Discontinued Butalb/Acetaminophen/Caffeine (Pcxbvh-Yrmgstni-Vmjd 50-325-40) 1 Each Tablet, Every 6 Hours Discontinued Cefuroxime Axetil (Cefuroxime) 250 Mg Tablet, 250 Mg Oral Every 12 Hours Discontinued Cetirizine Hcl (Zyrtec) 10 Mg Capsule, 10 Mg Oral Daily Discontinued Ciprofloxacin Hcl 500 Mg Tablet, 500 Mg Oral Twice A Day Discontinued Clonazepam 1 Mg Tablet, 0.5 Mg Oral Three Times A Day 03/30/16 Discontinued Clonazepam 1 Mg Tablet, 1 Mg Oral Three Times A Day Discontinued Diazepam 10 Mg Tablet, 10 Mg Oral Twice A Day Discontinued Dicyclomine Hcl (Bentyl) 10 Mg Capsule, 10 Mg Oral As Needed Discontinued Dicyclomine Hcl (Bentyl) 10 Mg Capsule, 10 Mg Oral Three Times A Day Discontinued Dicyclomine Hcl (Bentyl) 10 Mg Capsule, 10 Mg Oral Twice A Day Discontinued Dicyclomine Hcl (Bentyl) 20 Mg Tablet, 20 Mg Oral Twice A Day Discontinued Digoxin 250 Mcg Tablet, 250 Mg Oral Daily Discontinued Digoxin (Lanoxin) 250 Mcg Tablet, 250 Mcg Oral Daily 07/05/14 Discontinued Digoxin (Lanoxin) 250 Mcg Tablet, 250 Mcg Oral Daily Discontinued Diphenhydramine Hcl (Benadryl) 25 Mg Capsule, 25 Mg Oral Four Times Daily Discontinued Diphenhydramine Hcl (Benadryl) 25 Mg Capsule, 50 Mg Oral Discontinued Diphenhydramine Hcl (Benadryl) 25 Mg Capsule, 25 Mg Oral Four Times Daily as needed for 07/05/14 Discontinued Diphenhydramine Hcl (Benadryl) 25 Mg Capsule, 25 Mg Oral Four Times Daily as needed for Discontinued Diphenhydramine Hcl (Benadryl) 50 Mg/1 Ml Vial, 12.5 Mg Intraven Every 3-4 Hours as needed Discontinued Diphenhydramine Hcl (Benadryl) 25 Mg Capsule, 25 Mg Oral As Needed Discontinued Docusate Sodium (Colace) 100 Mg Cap, 100 Mg Oral Twice A Day for Constipation 09/20/15 Discontinued Docusate Sodium (Colace) 100 Mg Cap, 100 Mg Oral Daily 08/06/14 Discontinued Doxazosin Mesylate (Cardura) 2 Mg Tablet, 4 Mg Oral Twice A Day 09/20/15 Discontinued Esomeprazole Magnesium (Nexium) 40 Mg Capsule.dr, 40 Mg Oral Daily 07/05/14 Discontinued Esomeprazole Magnesium (Nexium) 40 Mg Capsule.dr, 40 Mg Oral Daily Discontinued Ferrous Sulfate 325 Mg Tablet, 325 Mg Oral Daily Discontinued Furosemide (Lasix) 40 Mg Tablet, 40 Mg Oral Daily 06/13/16 Discontinued Furosemide (Lasix) 40 Mg Tablet, 40 Mg Oral Daily Discontinued Gabapentin 100 Mg Capsule, 100 Mg Oral Twice A Day 03/30/16 Discontinued Gabapentin 300 Mg Capsule, 300 Mg Oral Twice A Day Discontinued Guaifenesin (Mucinex) 600 Mg Tablet.er, 600 Mg Oral Every 6 Hours 06/02/16 Discontinued Hydrochlorothiazide 25 Mg Tablet, 25 Mg Oral Daily Discontinued Hydroxyzine Hcl 25 Mg Tablet, 25 Mg Oral Three Times A Day Discontinued Insulin Detemir (Levemir) 100 Unit/1 Ml Vial, 4 Units Subcutaneously Daily At 1700 Discontinued Insulin Glargine (Lantus) 100 Units/Ml Ml, 70 Unit Subcutaneously Every Morning 07/05/14 Discontinued Insulin Glargine (Lantus) 100 Units/Ml Ml, 70 Unit Subcutaneously Every Morning Discontinued Insulin Regular, Human (Humulin R) 100 Unit/1 Ml Vial, 1 Units Subcutaneously As Directed 07/05/14 Discontinued Iron,Carbonyl (Iron) 45 Mg Tablet, 65 Mg Oral Daily Discontinued Isosorbide Mononitrate 30 Mg Tabcr, 30 Mg Oral Daily 12/26/14 Discontinued Labetalol Hcl 300 Mg Tablet, 300 Mg Oral Every 12 Hours Discontinued Labetalol Hcl (Trandate) 200 Mg Tablet, 400 Mg Oral Every 8 Hours 11/09/15 Discontinued Labetalol Hcl (Trandate) 200 Mg Tablet, 200 Mg Oral Every 12 Hours 08/06/14 Discontinued Levofloxacin (Levaquin) 500 Mg Tablet, 500 Mg Oral Daily At 1700 06/02/16 Discontinued Levothyroxine Sodium (Levothroid) 88 Mcg Tablet, 88 Mcg Oral Daily Discontinued Lidocaine Hcl (Lidocaine Hcl Viscous) 20 Mg/1 Ml Solution, 20 Mg Oral Every 6 Hours Discontinued Lisinopril (Prinivil) 10 Mg Tablet, 10 Mg Oral Daily 12/26/14 Discontinued Loratadine/Pseudoephedrine (Claritin-D 24 Hour Tablet) 1 Each Tab.er.24h, 1 Each Oral Daily Discontinued Lorazepam (Ativan*) 0.5 Mg Tablet, 0.5 Mg Oral Three Times A Day Discontinued Lorazepam (Ativan) 1 Mg Tablet, 1 Mg Oral Twice A Day as needed for 07/05/14 Discontinued Lorazepam (Ativan) 1 Mg Tablet, 2 Mg Oral Three Times A Day as needed for Discontinued Losartan Potassium (Cozaar) 25 Mg Tablet, 25 Mg Oral Twice A Day 07/05/14 Discontinued Magnisium Citrate , 1 Bottle Oral Q7days Discontinued Meclizine Hcl 12.5 Mg Tablet, 12.5 Mg Oral Three Times A Day Discontinued Medroxyprogesterone Acetate 10 Mg Tablet, 10 Mg Oral Daily Discontinued Methocarbamol (Robaxin) 500 Mg Tablet, 500 Mg Oral Twice A Day 07/05/14 Discontinued Methocarbamol (Robaxin) 500 Mg Tablet, 500 Mg Oral Twice A Day Discontinued Metoclopramide Hcl (Reglan) 10 Mg Tablet, 10 Mg Oral Three Times A Day Discontinued Metoclopramide Hcl (Reglan) 10 Mg Tablet, 10 Mg Oral Before Meals And At Bedtime 11/09/15 Discontinued Metoclopramide Hcl 5 Mg/Ml Inj, 10 Mg Oral Every 6 Hours 08/06/14 Discontinued Metoclopramide Hcl 10 Mg Tablet, 10 Mg Oral Three Times A Day Discontinued Metoprolol Succinate 50 Mg Tab.er.24h, 50 Mg Oral Every 8 Hours Discontinued Metoprolol Succinate 50 Mg Tab.er.24h, 100 Mg Oral Daily Discontinued Metoprolol Tartrate 50 Mg Tablet, 50 Mg Oral Every 8 Hours Discontinued Metoprolol Tartrate (Lopressor) 25 Mg Tab, 50 Mg Oral Twice A Day 07/05/14 Discontinued Metoprolol Tartrate (Lopressor) 25 Mg Tab, 50 Mg Oral Twice A Day Discontinued Metpck 6 Gm Pack, 6 Gm Oral Daily 08/06/14 Discontinued Metronidazole 500 Mg Tablet, 500 Mg Oral Three Times A Day 10/14/15 Discontinued Metronidazole (Flagyl) 500 Mg Tablet, 500 Mg Oral Three Times A Day 07/05/14 Discontinued Minoxidil 2.5 Mg Tablet, 2.5 Mg Oral Twice A Day Discontinued Mirtazapine 15 Mg Tab, 7.5 Mg Oral Bedtime Discontinued Morphine Sulfate (Morphine Sulfate Er) 30 Mg Tablet.er, 30 Mg Oral Three Times A Day as needed for Pain Discontinued Morphine Sulfate (Morphine Sulfate Er) 60 Mg Tablet.er, 30 Mg Oral Every 12 Hours as needed Discontinued Neomycin/Polymyxin/Hydrocort 10 Ml Btl, 10 Ml Otic Daily as needed for Pain And Temperature 11/09/15 Discontinued [id number] 30 Mg Tabcr, 30 Mg Oral Daily 08/06/14 Discontinued Nifedipine (Nifedipine Er) 30 Mg Tab.er.24, 90 Mg Oral Every 12 Hours Discontinued Nifedipine 30 Mg Tabcr, 90 Mg Oral Every 12 Hours 12/26/14 Discontinued Orphenadrine Citrate (Norflex) 100 Mg Tab, 100 Mg Oral Twice A Day Discontinued Orphenadrine Citrate (Norflex) 100 Mg Tab, 100 Mg Oral Twice A Day 10/15/15 Discontinued Pantoprazole Sodium (Protonix) 40 Mg Tablet.dr, 40 Mg Oral Daily Discontinued Pantoprazole Sodium (Protonix) 40 Mg Tablet.dr, 40 Mg Oral Daily Discontinued Phenytoin Sodium 100 Mg Cap, 200 Mg Oral Every 12 Hours 11/09/15 Discontinued Phenytoin Sodium Extended (Dilantin) 100 Mg Capsule, 300 Mg Oral Daily Discontinued [id number] 40 Mg Vial, 40 Mg Oral Twice A Day 08/06/14 Discontinued Promethazine Hcl 25 Mg Tablet, 25 Mg Oral Daily 07/05/14 Discontinued Promethazine Hcl 25 Mg Tablet, 25 Mg Oral Daily Discontinued Promethazine Hcl 25 Mg Tablet, 25 Mg Oral Every 6 Hours Discontinued Promethazine Hcl (Phenergan Supp*) 25 Mg Supp, 25 Mg Rectal As Needed Discontinued Ranitidine Hcl 300 Mg Tablet, 300 Mg Oral Bedtime Discontinued Sennosides (Senokot) 8.6 Mg Tablet, 8.6 Mg Oral Daily 08/06/14 Discontinued Sodium Bicarbonate 650 Mg Tablet, 1300 Mg Oral Twice A Day 12/26/14 Discontinued Sucralfate (Carafate) 1 Gm/10 Ml Oral.susp, 1 Gm Oral Three Times A Day Discontinued Sucralfate 1 G/10 Ml Susp, 1 G Oral Before Meals And At Bedtime for Gas 09/19 Discontinued Sucralfate (Carafate) 1 Gm/10 Ml Oral.susp, 1 Gm Oral Every 6 Hours 07/05/14 Discontinued Sucralfate (Carafate) 1 Gm/10 Ml Oral.susp, 1 Gm Oral Every 6 Hours Discontinued Sucralfate (Carafate) 1 Gm Tablet, 1 Gm Oral Bedtime Discontinued Sulfamethoxazole/Trimethoprim (Sulfamethoxazole-Tmp Ds Tablet) 1 Each Tablet, 1 Ea Oral Every 12 Hours 06/13/16 Discontinued Tizanidine Hcl 4 Mg Capsule, Twice A Day Discontinued Tobramycin/Dexamethasone (Tobradex Eye Drops) 5 Ml Soln, 2 Drop Left Eye Three Times A Day Discontinued Zolpidem Tartrate (Ambien) 10 Mg Tablet, 10 Mg Oral Bedtime Discontinued Zolpidem Tartrate (Ambien) 5 Mg Tablet, 5 Mg Oral Bedtime as needed for Insomnia 03/30/16 Discontinued Zolpidem Tartrate (Ambien) 5 Mg Tablet, 5 Mg Oral Bedtime as needed for Insomnia Discontinued Zolpidem Tartrate (Ambien) 10 Mg Tablet, 10 Mg Oral Bedtime Discontinued Zolpidem Tartrate (Ambien) 10 Mg Tablet, 10 Mg Oral Bedtime as needed for Insomnia 09/20/15 Discontinued Zolpidem Tartrate (Ambien) 10 Mg Tablet, 10 Mg Oral Bedtime Discontinued Family History Relationship Condition Age at Onset Recorded Date/Time 33 Father Family history of diabetes mellitus 30's - 40 07/01/2014 1:03pm 33 Father Family history of hypertension 30's - 40 07/01/2014 1:03pm 32 Mother Family history of hypertension 40's - 50 07/01/2014 1:03pm Social History Social History Problem Response Recorded Date/Time Onset Date Status Hx Psychiatric Problems Yes 05/30/2017 11:00pm Not Applicable Not Applicable Hx Eating Disorder No 05/30/2017 11:00pm Not Applicable Not Applicable Hx Substance Use Disorder No 05/30/2017 11:00pm Not Applicable Not Applicable Hx Depression No 05/30/2017 11:00pm Not Applicable Not Applicable Hx Alcohol Use No 05/30/2017 11:00pm Not Applicable Not Applicable Hx Substance Use Treatment No 05/30/2017 11:00pm Not Applicable Not Applicable Hx Physical Abuse No 05/30/2017 11:00pm Not Applicable Not Applicable Hospital Discharge Instructions No hospital discharge instruction information available. Plan of Care Discharge Date 06/03/17 6:37pm Disposition HOME, SELF-CARE Instructions/Education Provided Abdominal Pain - Adult Hemodialysis Prescriptions See Medication Section Additional Instructions/Education Renal diabetic diet. AAT. F/U with PCP in 1- 2 weeks. F/U with Gynecology on scheduled appt. F/U with other consults as directed. Functional Status Query Response Date Recorded Assistive Devices None May 30, 2017 11:00pm Ambulation Ability Independent May 30, 2017 11:00pm Toileting Ability Independent June 03, 2017 5:42pm Allergies, Adverse Reactions, Alerts Allergen Type Severity Reaction Status Last Updated hydromorphone HCl Allergy Unknown Active 01/22/17 ketorolac tromethamine Allergy Unknown Active 01/22/17 ondansetron HCl Allergy Unknown Active 01/22/17 Penicillin Allergy Unknown Active 01/22/17 Latex Allergy Mild Active 01/22/17 Hydrocodone Allergy Unknown Active 01/22/17 Aspirin Allergy Unknown Active 01/22/17 Fentanyl Allergy Unknown Active 01/22/17 Tramadol Allergy Unknown Active 01/22/17 Clonidine Allergy Unknown Active 01/22/17 Hydromorphone Allergy Unknown Active 01/22/17 Ondansetron Allergy Unknown Active 01/22/17 Immunizations No immunization information available. Vital Signs Acute Vital Signs Vital Response Date/Time Temperature (Fahrenheit) 97.7 degrees F (97.6 - 99.5) 06/03/2017 4:05pm Pulse Pulse Rate (adult) 98 bpm (60 - 90) 06/03/2017 4:05pm Respiratory Rate 18 bpm (12 - 24) 06/03/2017 4:05pm Blood Pressure 128/106 mm Hg 06/03/2017 4:05pm Height 5 ft 3 in 05/30/2017 4:36pm Weight 160.56 lb 05/30/2017 11:00pm Body Mass Index 28.4 kg/m^2 05/30/2017 11:00pm Results Laboratory Results Test Name Result Units Flags Reference Collection Date/Time Result Date/ Time Comments Reactive Lymphocytes 1 01/24/2017 6:19am 01/24/2017 8:25am Blast Cells % 1 01/24/2017 6:19am 01/24/2017 8:25am Phosphorus Level 4.4 MG/DL 2.3-4.7 02/08/2017 6:55am 02/08/2017 7:17am Hepatitis B Surface Antibody, Quant 405.4 mIU/mL Immunity>9.9 2016 11:00am 01/24/2017 6:40am Status of Immunity Anti- HBs Level Inconsistent with Immunity 0.0 - 9.9 Consistent with Immunity >9.9 Hepatitis B Core Total Antibody Negative Negative 01/23/2017 11:00am 01/24/2017 6:40am Performed at: - [facility] [id number] Composing Machine Operator: Robles Samayoa MD, Phone: [phone] Clostridium Difficile Toxin A & B NEGATIVE NEGATIVE 01/31/2017 2:30am 01/31/2017 12:27pm Testing on stool aspirate specimens is outside drywaller claims since specimen type not validated on this assay. Amylase Level 53 U/L 25-125 02/13/2017 7:08pm 02/13/2017 7:50pm Lipase 17 U/L 8-78 02/13/2017 7:08pm 02/13/2017 7:50pm Human Chorionic Gonadotropin, Quant < 1.20 mIU/mL 0-10 02/13/2017 7: 08pm 02/13/2017 7:50pm Urine Mucus MODERATE H RARE 03/30/2017 12:00am 03/30/2017 1:58am Urine Yeast MODERATE H NONE 04/11/2017 3:00pm 04/11/2017 3:19pm Human Chorionic Gonadotropin, Qual NEGATIVE NEGATIVE 04/16/2017 10: 00pm 04/16/2017 10:59pm White Blood Count 5.69 x10e3/uL 4.8-10.8 06/03/2017 5:50am 06/03/2017 6 :29am Red Blood Count 2.93 x10e6/uL L 3.6-5.1 06/03/2017 5:50am 06/03/2017 6: 29am Hemoglobin 7.9 g/dL *L 12.0-16.0 06/03/2017 5:50am 06/03/2017 6:29am Results called to BERNIE GARCES at 0628 on 06/03/17 by Franny Carvajal. RB OK. This test has been rerun and double checked for accuracy. Hematocrit 27.4 % L 34.2-44.1 06/03/2017 5:50am 06/03/2017 6:29am Mean Corpuscular Volume 93.5 fL 81-99 06/03/2017 5:50am 06/03/2017 6: 29am Mean Corpuscular Hemoglobin 27.0 pg L 28-32 06/03/2017 5:50am 2017 6:29am Mean Corpuscular Hemoglobin Concent 28.8 g/dL L 31-35 06/03/2017 5:50am 06/03/2017 6:29am Red Cell Distribution Width 18.2 % H 11.7-14.4 06/03/2017 5:50am 2017 6:29am Platelet Count 254 x10e3/uL 140-360 06/03/2017 5:50am 06/03/2017 6: 29am Neutrophils (%) (Auto) 67.3 % 38.7-80.0 06/03/2017 5:50am 06/03/2017 6: 29am Lymphocytes (%) (Auto) 23.6 % 18.0-39.1 06/03/2017 5:50am 06/03/2017 6: 29am Monocytes (%) (Auto) 5.1 % 4.4-11.3 06/03/2017 5:50am 06/03/2017 6: 29am Eosinophils (%) (Auto) 3.2 % 0.0-6.0 06/03/2017 5:50am 06/03/2017 6: 29am Basophils (%) (Auto) 0.4 % 0.0-1.0 06/03/2017 5:50am 06/03/2017 6:29am IM GRANULOCYTES % 0.4 % 0.0-1.0 06/03/2017 5:50am 06/03/2017 6:29am Neutrophils # (Auto) 3.8 2.1-6.9 06/03/2017 5:50am 06/03/2017 6:29am Lymphocytes # (Auto) 1.3 1.0-3.2 06/03/2017 5:50am 06/03/2017 6:29am Monocytes # (Auto) 0.3 0.2-0.8 06/03/2017 5:50am 06/03/2017 6:29am Eosinophils # (Auto) 0.2 0.0-0.4 06/03/2017 5:50am 06/03/2017 6:29am Basophils # (Auto) 0.0 0.0-0.1 06/03/2017 5:50am 06/03/2017 6:29am Absolute Immature Granulocyte (auto 0.02 x10e3/uL 0-0.1 06/03/2017 5: 50am 06/03/2017 6:29am Differential Total Cells Counted 100 06/03/2017 5:50am 06/03/2017 8 :12am Neutrophils % (Manual) 71 % 40-74 06/03/2017 5:50am 06/03/2017 8:12am Lymphocytes % (Manual) 20 % 19-48 06/03/2017 5:50am 06/03/2017 8:12am Monocytes % (Manual) 4 % 3.4-9.0 06/03/2017 5:50am 06/03/2017 8:12am Eosinophils % (Manual) 5 % 0-7 06/03/2017 5:50am 06/03/2017 8:12am Platelet Estimate ADEQUATE 06/03/2017 5:50am 06/03/2017 8:12am Platelet Morphology Comment NORMAL 06/03/2017 5:50am 06/03/2017 8: 12am Polychromasia FEW 06/03/2017 5:50am 06/03/2017 8:12am Hypochromasia MODERATE 06/03/2017 5:50am 06/03/2017 8:12am Poikilocytosis MODERATE 06/03/2017 5:50am 06/03/2017 8:12am Anisocytosis MODERATE 06/03/2017 5:50am 06/03/2017 8:12am Red Cell Morphology Comment ABNORMAL 06/03/2017 5:50am 06/03/2017 8 :12am Prothrombin Time 15.0 seconds H 11.9-14.5 05/30/2017 8:00pm 05/30/2017 8 :25pm Prothromb Time International Ratio 1.28 05/30/2017 8:00pm 2017 8:25pm Oral Anticoagulant Therapy INR Values: 1. Low Intensity Therapy 1.5 - 2.0 2. Moderate Intensity Therapy 2.0 - 3.0 3. High Intensity Therapy(1) 2.5 - 3.5 4. High Intensity Therapy(2) 3.0 - 4.0 5. Panic Value INR > 5.0 Activated Partial Thromboplast Time 51.5 seconds H 23.8-35.5 05/30/2017 8 :00pm 05/30/2017 8:25pm Urine Color YELLOW YELLOW 05/30/2017 8:00pm 05/30/2017 8:18pm Urine Clarity SL CLOUDY CLEAR 05/30/2017 8:00pm 05/30/2017 8:18pm Urine Specific [place] 1.015 1.010-1.025 05/30/2017 8:00pm 2017 8:18pm Urine pH 6 5 - 7 05/30/2017 8:00pm 05/30/2017 8:18pm Urine Leukocyte Esterase 1+ H NEGATIVE 05/30/2017 8:00pm 05/30/2017 8: 18pm Urine Nitrite NEGATIVE NEGATIVE 05/30/2017 8:00pm 05/30/2017 8:18pm Urine Protein 3+ H NEGATIVE 05/30/2017 8:00pm 05/30/2017 8:18pm Urine Glucose (UA) NEGATIVE NEGATIVE 05/30/2017 8:00pm 05/30/2017 8: 18pm Urine Ketones NEGATIVE NEGATIVE 05/30/2017 8:00pm 05/30/2017 8:18pm Urine Urobilinogen 0.2 mg/dL 0.2 - 1 05/30/2017 8:00pm 05/30/2017 8: 18pm Urine Bilirubin NEGATIVE NEGATIVE 05/30/2017 8:00pm 05/30/2017 8: 18pm Urine Blood 3+ H NEGATIVE 05/30/2017 8:00pm 05/30/2017 8:18pm Urine WBC 6-10 /HPF H 0-5 05/30/2017 8:00pm 05/30/2017 8:30pm Urine RBC 11-20 /HPF H 0-5 05/30/2017 8:00pm 05/30/2017 8:30pm Urine Bacteria MODERATE /HPF H NONE 05/30/2017 8:00pm 05/30/2017 8:30pm Urine Epithelial Cells MODERATE /LPF NONE 05/30/2017 8:00pm 05/30/2017 8:30pm Urine Transitional Epithelial Cells FEW H NONE 05/30/2017 8:00pm 05/30 8:30pm Urine Renal Epithelial Cells FEW H NONE 05/30/2017 8:00pm 05/30/2017 8 :30pm Urine Test NEGATIVE NEGATIVE 05/30/2017 8:00pm 05/30/2017 8 :18pm Sodium Level 135 mmol/L L 136-145 06/03/2017 5:50am 06/03/2017 7:26am Potassium Level 3.9 mmol/L 3.5-5.1 06/03/2017 5:50am 06/03/2017 7:26am Chloride Level 105 mmol/L 98-107 06/03/2017 5:50am 06/03/2017 7:26am Carbon Dioxide Level 21 mmol/L L 22-29 06/03/2017 5:50am 06/03/2017 7: 26am Anion Gap 12.9 mmol/L 8-16 06/03/2017 5:50am 06/03/2017 7:26am Blood Urea Nitrogen 50 mg/dL # H 7-06/03/2017 5:50am 06/03/2017 7: 26am Creatinine 3.83 mg/dL H 0.57-1.11 06/03/2017 5:50am 06/03/2017 7:26am BUN/Creatinine Ratio 13 6-25 06/03/2017 5:50am 06/03/2017 7:26am Estimat Glomerular Filtration Rate 17 ML/MIN L 60- 06/03/2017 5:50am 7:26am Ranges were taken from the National Kid[employer] Disease Education Program and the [employer] literature. Reference ranges: 60 or greater: Normal 16-59 (for 3 consecutive months): Chronic kidney disease 15 or less: Kidney failure Glucose Level 138 mg/dL H 74-118 06/03/2017 5:50am 06/03/2017 7:26am Calcium Level 7.8 mg/dL L 8.4-10.2 06/03/2017 5:50am 06/03/2017 7:26am Bedside Glucose 193 mg/dL H 70-120 06/02/2017 7:54pm 06/03/2017 9:13am Meter ID: [id number] Lactic Acid Level 6.8 MG/DL 4.5-19.8 05/30/2017 8:20pm 05/30/2017 8: 47pm Magnesium Level 1.8 MG/DL 1.3-2.1 06/01/2017 9:48am 06/01/2017 10:19am Iron Level 70 ug/dL 50-170 06/01/2017 6:00am 06/01/2017 6:51am Total Iron Binding Capacity 146 ug/dL L 261-478 06/01/2017 6:00am 2017 6:51am Percent Iron Saturation 48 % 15-50 06/01/2017 6:00am 06/01/2017 6:51am Transferrin 104 mg/dL L 180-382 06/01/2017 6:00am 06/01/2017 6:51am Ferritin 956.34 ng/mL H 4.63-204.00 06/01/2017 6:00am 06/01/2017 7:27am Total Bilirubin < 0.3 mg/dL 0.2-1.2 05/31/2017 6:10am 05/31/2017 7: 53am Aspartate Amino Transf (AST/SGOT) 12 IU/L 5-34 05/31/2017 6:10am 2017 7:53am Alanine Aminotransferase (ALT/SGPT) 8 IU/L 0-55 05/31/2017 6:10am 05/31 7:53am Total Protein 7.2 g/dL 6.5-8.1 05/31/2017 6:10am 05/31/2017 7:53am Albumin 2.4 g/dL L 3.5-5.0 05/31/2017 6:10am 05/31/2017 7:53am Globulin 4.8 g/dL H 2.3-3.5 05/31/2017 6:10am 05/31/2017 7:53am Albumin/Globulin Ratio 0.5 L 0.8-2.0 05/31/2017 6:10am 05/31/2017 7: 53am Alkaline Phosphatase 157 IU/L H 40-150 05/31/2017 6:10am 05/31/2017 7: 53am B-Type Natriuretic Peptide 945.9 pg/mL H 0-100 06/01/2017 9:48am 2017 10:34am Creatine Kinase 53 IU/L 29-168 05/31/2017 6:15pm 05/31/2017 7:46pm Creatine Kinase MB 1.70 ng/mL 0-5.0 05/31/2017 6:15pm 05/31/2017 7: 49pm Troponin I < 0.00 ng/mL L 0.0-0.78 05/31/2017 6:15pm 05/31/2017 7:49pm Thyroid Stimulating Hormone (TSH) 1.923 uIU/mL 0.350-4.940 05/30/2017 8: 00pm 05/30/2017 8:52pm Phenytoin (Dilantin) Level 3.99 ug/mL L 10-20 06/01/2017 9:48am 2017 10:35am Hepatitis A IgM Antibody Negative 05/31/2017 6:15pm 06/03/2017 9: 51am Hepatitis B Surface Antigen Negative 05/31/2017 6:15pm 06/03/2017 9 :51am Hepatitis B Core IgM Antibody Negative 05/31/2017 6:15pm 2017 9:51am Hepatitis C Antibody 0.1 05/31/2017 6:15pm 06/03/2017 9:51am Reference Range: 0.0 - 0.9 s/co ratio Negative: < 0.8 Indeterminate: 0.8 - 0.9 Positive: > 0.9 The CDC recommends that a positive HCV antibody result be followed up with a HCV Nucleic Acid Amplification test (144929). [facility] [address] [address] Dir: Robles Samayoa MD For inquiries, the physician may contact Branch: [phone] Lab: [phone] Stool Occult Blood POSITIVE H NEGATIVE 06/01/2017 10:57pm 06/01/2017 11:00pm Microbiology Results Procedure Source Organism/Result Collection Date/Time Result Date/Time Result Status Urine Culture Urine,[place] MARIUSZ GLABRATA 01/29/2017 7:38am 2016 7:41am Final Blood Culture Blood NO GROWTH AFTER 5 DAYS, FINAL REPORT 02/01/2017 3:30pm 02/06/2017 4:16pm Final Urine Culture Urine,Catheterized MARIUSZ GLABRATA 02/03/2017 1:00pm 2016 10:06am Final Urine Culture Urine,Clean Catch ESCHERICHIA COLI 03/30/2017 12:00am 2016 10:48am Final Urine Culture Urine,Random MARIUSZ GLABRATA 04/11/2017 3:00pm 04/16/2017 6 :14am Final Procedures Procedure Status Date Provider(s) INSERTION OF INFUSION DEV INTO SUP VENA CAVA, PERC APPROACH Completed PALLAVI LEYVA MD REMOVAL OF INFUSION DEVICE FROM UPPER VEIN, OPEN APPROACH Completed 12/18/16 PALLAVI BARRIENTOS MD REMOVAL OF INFUSION DEVICE FROM UPPER VEIN, OPEN APPROACH Completed 12/18/16 PALLAVI BARRIENTOS MD INSERTION OF INFUSION DEV INTO L SUBCLAV VEIN, OPEN APPROACH Completed PALLAVI BARRIENTOS MD INSERT INFUSION DEV IN R INT JUGULAR VEIN, OPEN Completed 12/18/16 PALLAVI BARRIENTOS MD PERFORMANCE OF URINARY FILTRATION, MULTIPLE Completed 01/02/17 LIVAN AVENDAÑO RONALD MD EXCISION OF STOMACH, PYLORUS, ENDO, DIAGN Completed 01/02/17 LIVAN AVENDAÑO RONALD MD EXCISION OF ESOPHAGUS, ENDO, DIAGN Completed 01/02/17 LIVAN AVENDAÑO RONALD MD EXCISION OF STOMACH, ENDO, DIAGN Completed 01/02/17 LIVAN AVENDAÑO RONALD MD EXCISION OF STOMACH, ENDO, DIAGN Completed 01/28/17 SOULEYMANE BUCKLEY MD TRANSFUSE NONAUT RED BLOOD CELLS IN PERIPH VEIN, PERC Completed 02/01/17 LIVAN AVENDAÑO PERFORMANCE OF URINARY FILTRATION, <6 HRS/DAY Completed 01/23/17 LIVAN AVENDAÑO EXCISION OF STOMACH, PYLORUS, ENDO, DIAGN Completed 04/01/17 GILBERTO HENSLEY MD, JORGE DPM EXCISION OF LEFT FOOT SKIN, EXTERNAL APPROACH Completed 04/01/17 GILBERTO HENSLEY MD, JORGE DPJenn DILATION OF STOMACH, PYLORUS, ENDO Completed 04/01/17 GILBERTO HENSLEY MD, JORGE DPM EXCISION OF STOMACH, ENDO, DIAGN Completed 04/01/17 GILBERTO HENSLEY MD, JORGE DPM TRANSFUSE NONAUT RED BLOOD CELLS IN PERIPH VEIN, PERC Completed 04/06/17 MODE SIFUENTES MD PERFORMANCE OF URINARY FILTRATION, <6 HRS/DAY Completed 04/05/17 LIVAN AVENDAÑO Ultrasound guidance for vascular access Active 12/16/16 SAM BLACK MD MRI joint upr extrem w/o dye Active 01/30/[address] of abdomen and pelvis without contrast Active 01/31/17 BEREKET BARCLAY MD Computed tomography of brain without radiopaque contrast Active 02/05/17 CONSTANZA CHAN NP Magnetic resonance imaging of brain without contrast Active 02/07/17 CONSTANZA CHAN NP Ultrasound examination of pelvis, limited or follow-up Active 02/07/17 GAYLE ABEL X-ray of chest, two views Active 02/07/17 SOULEYMANE BRAN MD Computed tomography of brain without radiopaque contrast Active 02/13/17 MAGNO MORFIN NP Computed tomography of cervical spine without contrast Active 02/13/17 MAGNO MORFIN [address] CT of abdomen and pelvis without contrast Active 02/13/17 MAGNO MORFIN NP Computed tomography of brain without radiopaque contrast Active 04/04/17 UVALDO TERRY NP US abdomen complete Active 04/05/17 UVALDO TERRY [employer] X-ray of chest, single view Active 04/16/[address] of abdomen and pelvis without contrast Active 04/17/17 AMELIA COPPOLA X-ray of chest, single view Active 05/30/17 NICHELLE AMAYA [facility] Encounters Encounter Location Arrival/Admit Date Discharge/Depart Date Attending Provider Discharged Inpatient [facility] 05/30/17 9:24pm 06/03/17 6:37pm JOHN BAHENA MD Departed Emergency Room [facility] 04/16/17 1:31pm 3:00am MIREILLE AMOR MD Departed Emergency Room [facility] 04/14/17 12:59pm 04/14 3:33pm CHAD ENAMORADO MD Discharged Inpatient [facility] 04/05/17 11:05am 6:03pm JOHN BAHENA MD Departed Emergency Room [facility] 02/19/17 3:59am 4:23pm SAM BLACK MD Departed Emergency Room [facility] 02/13/17 5:05pm 12:06am MIREILLE AMOR MD Discharged Inpatient [facility] 01/23/17 4:02am 02/11/17 4:47pm JOHN BAHENA MD Discharged Inpatient [facility] 01/02/17 12:31am 5:19pm JOHN BAHENA MD Discharged Inpatient [facility] 12/16/16 6:45pm 12/20/16 6:47pm JOHN BAHENA MD
--- OUTSIDE RECORDS SUMMARY | 2017-06-05 10:39 | XMS REPORT | Clinical Summary ---
Author Author KALYAN [facility] Address Unknown Phone Unavailable Care Team Providers Care Urology Physician Assistant Name Role Phone PCP Unavailable Allergies Active [...] (HCC) 08/22/2016 IDDM (insulin dependent diabetes mellitus) ([facility]) 08/22/2016 Epilepsy (HCC) 08/22/2016 Anxiety 08/22/2016 Chronic pain due to trauma 08/22/2016 Gastroparesis 08/22/2016 Diabetic polyneuropathy associated with type 1 diabetes mellitus (HCC) 08/22 Secondary hyperparathyroidism of renal origin ([facility]) 08/22/2016 Anemia in chronic kidney disease(285.21) 08/22/2016 Thrombocytopenia ([facility]) 08/22/2016 Pituitary tumor 08/22/2016 Benign [...] evaluation Encounter for chronic kidney disease 06/26/2016 [facility] Anselmo Botello MD Pre-transplant evaluation Encounter [...] for chronic kidney disease (Primary Dx) after 06/04/2016 Social History Tobacco Use Types Packs/Day Years [...] Component Value Ref Range Date of Serum 002617 Serum# [id number] Flow PRA Class I and II See Scanned Report Specimen Performing Laboratory Blood [facility] IMMUNE EVALUATION LAB [facility] Moraim[place], [place]:BC [address] [place] [address] * HLA Typing (07/19/2016 12:00 PM) Component Value Ref Range HLA Result See Scanned Report HLA-A AG1 HLA-A AG2 HLA-B AG1 HLA-B AG2 HLA-C AG1 HLA-C AG2 HLA-DR AG1 HLA-DR 2nd Antigen HLA-DQ AG1 HLA-DQ AG2 HLA-DRW Specimen Performing Laboratory Blood [facility] IMMUNE EVALUATION LAB [facility] One Juan Carlosalejo Valera, MS:BCM [address] [place] [address] * 2D Echo W/Doppler(CW/PW/Color) (07/19/2016 11:00 AM) Component Value Ref Range Ejection Fraction LV EF 27.4 % (55-75)* Index 16.5 %/m2 Specimen Performing Laboratory [facility] [address] [place] [address] Voice:[phone] Transthoracic Echocardiogram Pat.Name:JEFF BERMEO Pat.ID:[id number] St.Date: 07/19/2016Refer.MD:ANSELMO BOTELLO Exam Time: 11:00:00 AM Study Type:Echo Complete Height:63inWeight:140lb BSA: 1.66 m2 DOBAge:1985,30Y Sex: FEMALEBP: 117/87 HR:108 bpm Sonogrphr: NOEMY Choudhary Pat. Stat.:OutpatientRoom:[facility] Reason for Study:Pre-surgical evaluation of organ [...] least 45-50 mmHg. PV: At least mild PA is present. AO: Proximal ascending aorta size [...] Aorta Ao Asc2.31 cm (2.1-3.4) Parasternal [place] Ao An 1.84 cm (1.4-2.6) LV%fs 19.8 [...] 07/20/2016 5:10 PM CDT Echocardiography Laboratory [address] [place] [address] Voice: [phone] Transthoracic Echocardiogram Pat.Name: JEFF BERMEO Pat.ID: [id number] St.Date: 07/19/2016 Refer.MD: ANSELMO BOTELLO Exam Time: 11:00:00 AM Study Type:Echo Complete Height: 63in Weight: 140lb BSA: 1.66 m2 Age: 9 1985,30Y Sex: FEMALE BP: 117/87 HR: 108 bpm Sonogrphr: NOEMY hCoudhary Pat. Stat.:Outpatient Room: [facility] Reason for Study:Pre-surgical evaluation of organ [...] least 45-50 mmHg. PV: At least mild PA is present. AO: Proximal ascending aorta size [...] Ao Asc 2.31 cm (2.1-3.4) Parasternal [place] Ao An 1.84 cm (1.4-2.6) LV%fs 19.8 [...] Cells 2+ moderate Specimen Performing Laboratory Blood [address] [address] * T Spot TB (07/19/2016 10:01 AM) Component Value Ref Range T-Spot TB Negative Neg Ctrl Spot Count 0 Panel A Spot 0 Panel B Spot [address] >20 Scan Result See scanned document Specimen Performing Laboratory Blood [facility] [address] [facility], [address] [place] [address] * PT/aPTT (07/19/2016 10:01 AM) Component Value Ref Range Protime 15.3 (H) 11.7 - 14.7 seconds INR 1.2 <=5.9 PTT 33.6 22.5 - 36.0 seconds Specimen Performing Laboratory Blood [address] [address] Narrative RECOMMENDED COUMADIN/WARFARIN INR THERAPY RANGES STANDARD DOSE: 2.0 - 3.0 Includes: PROPHYLAXIS for venous thrombosis, systemic embolization; TREATMENT for venous thrombosis and/or pulmonary embolus. HIGH RISK: Target INR is 2.5-3.5 for patients with mechanical heart valves. * HIV-1 Antigen with HIV-1/2 Antibody (07/19/2016 10:01 AM) Component Value Ref Range HIV-1 Antigen with HIV Nonreactive Nonreactive 1&2 Antibody Specimen Performing Laboratory [address] [address] * CBC with platelet count + automated [...] 0.20 K/ L Specimen Performing Laboratory Blood [address] [address] Narrative 0.00 * Hepatitis C Antibody (07/19/2016 10:01 AM) Component Value Ref Range Hepatitis C Ab Nonreactive Nonreactive Specimen Performing Laboratory [address] [address] * Cytomegalovirus antibody, IgM (07/19/2016 10:01 AM) Component Value Ref Range CMV IgM Negative Specimen Performing Laboratory Blood [address] [address] * Hepatitis B core antibody, IgM (07/19/2016 10:01 AM) Component Value Ref Range Hep B C IgM Nonreactive Nonreactive Specimen Performing Laboratory [address] [address] * EBV-VCA antibody, IgM (07/19/2016 10:01 AM) Component Value Ref Range EBV VCA IgM Negative Specimen [place] [address] * EBV-VCA antibody, IgG (07/19/2016 10:01 AM) Component Value Ref Range EBV VCA IgG Negative Specimen [place] [address] * Blood typing, automated (07/19/2016 10:01 AM) Component Value Ref Range ABO/RH AUTOMATED (BEAKER) O POSITIVE Specimen [place] [address] * RPR (07/19/2016 10:01 AM) Component Value Ref Range RPR Nonreactive Nonreactive Specimen Performing Laboratory [address] [address] * Hepatitis B surface antibody (07/19/2016 10:01 AM) Component Value Ref Range Hep B S Ab 922.9 (H) <8.0 mIU/mL Specimen Performing Laboratory [address] [address] * Hepatitis B surface antigen (07/19/2016 10:01 AM) Component Value Ref Range hepatitis B Surface Ag Nonreactive Nonreactive Specimen Performing Laboratory [address] [address] * Cytomegalovirus antibody, IgG (07/19/2016 10:01 AM) Component Value Ref Range CMV IgG Positive Specimen Performing Laboratory [place] [id number] * Urinalysis, Routine (07/19/2016 10:01 AM) Component Value Ref Range Color, UA Yellow Clarity, UA Hazy Specific [place], UA 1.011 1.001 - 1.035 pH, UA [...] Many Specimen Source Specimen [place] [address] * CBC w/PLT Count & Auto Differential (07/19/2016 10:01 AM) Specimen Performing Laboratory Blood Narrative The following orders were created for panel order CBC w/PLT Count & Auto Differential. Procedure Abnormality Status --------- - ------ CBC with platelet count ...[[id number]]AbnormalFinal result Manual Differential[[id number]] Final result Please view results for these tests on the individual orders. * Direct AHG (YANICK)/Direct Alena (07/19/2016 10:01 AM) Component Value Ref Range Direct AHG-IGG NEGATIVE Direct AHG-C3B, C3D NEGATVIE Specimen [place]forming [place] [address] * Urine Culture (07/19/2016 10:01 AM) Component Value Ref Range Result >100,000 col/mL Enterococcus species (A) Result 30-39,000 col/mL Marleen glabrata (A) Specimen Performing Laboratory Urine - Urine, [facility] ALICE Unspecified Source [address] [place] [address] Narrative 20-29,000 col/mL skin betsy Organism Antibiotic Method Susceptibility Enterococcus species Ampicillin DISK DIFFUSION Susceptible Enterococcus species Linezolid DISK DIFFUSION Susceptible Enterococcus species Nitrofurantoin DISK DIFFUSION Susceptible Enterococcus species Tetracycline DISK DIFFUSION Resistant Enterococcus species Vancomycin DISK DIFFUSION Susceptible * Varicella Zoster Antibody, IgG (07/19/2016 10:01 AM) Component Value Ref Range Varicella IgG >8.0 Al Specimen Performing Laboratory Blood [address] [place] [address] Narrative VARICELLA ZOSTER RESULT INTERPRETATIONS: <=0.8 AlNonreactive:Presumed non-immune to VZV 0.9-1.0 AlEquivocal >=1.1 AlReactive:Presumed immune to VZV * Uric Acid (07/19/2016 10:01 AM) Component Value Ref Range Uric Acid 3.9 2.6 - 7.2 mg/dL Specimen [place] [address] * Phosphorus (07/19/2016 10:01 AM) Component Value Ref Range Phosphorus 5.7 (H) 2.3 - 4.7 mg/dL Specimen [place] [address] * PTH, Intact (07/19/2016 10:01 AM) Component Value Ref Range PTH 243.8 (H) 8.5 - 72.5 pg/mL Specimen Performing Laboratory [address] [address] Narrative Effective 03/02/2014: Reference Range Change New: 8.5-72.5 Previous: 15.0-90.0 * Lactate Dehydrogenase (LDH) (07/19/2016 10:01 AM) Component Value Ref Range LDH 288 (H) 125 - 220 U/L Specimen Performing Laboratory [address] [address] * Hemoglobin A1c (07/19/2016 10:01 AM) Component Value Ref Range Hemoglobin A1C 6.2 (H) 4.3 - 6.1 % Specimen Performing Laboratory [address] [address] * Gamma Glutamyl Transferase (GGT) (07/19/2016 10:01 AM) Component Value Ref Range GGT 649 (H) 9 - 64 U/L Specimen Performing Laboratory [address] [address] * Lipid panel (07/19/2016 10:01 AM) Component Value Ref Range Triglycerides 115 mg/dL Cholesterol 179 mg/dL HDL 51 mg/dL LDL Calculated 105 mg/dL Specimen Performing Laboratory [address] [address] Narrative Triglyceride Reference Range: Low Risk <150 [id number] High Risk 200-499 Very High Risk>=500 Cholesterol Reference Range: Low Risk <200 [id number] High Risk>240 HDL Cholesterol Reference Range: Low Risk >=60 High Risk <40 LDL Cholesterol Reference Range: Optimal<100 Near [id number] [id number] Ewkb464-603 Very High >=190 * Comprehensive metabolic panel [...] PATIENTS. Specimen Performing Laboratory Blood [facility] [address] [address] * US abdomen complete (06/26/2016 1:07 PM) Specimen Performing Laboratory [facility] Narrative FINAL REPORT TECHNIQUE: Grayscale ultrasound of [...] MD Report Verified Date/Time:06/26/2016 15:27:17 Reading Location: [address] Radiology Reading Room Procedure Note Interface, [...] Report Verified Date/Time: 06/26/2016 15:27:17 Reading Location: [address] Radiology Reading Room * ECG 12 lead (06/26/2016 1:01 PM) Specimen Performing Laboratory [facility] Narrative Ventricular Rate 103 BPM Atrial Rate 103 BPM P-R Interval 176 ms QRS Duration 94 ms Q-T Interval 382 ms QTC Calculation(Bazett) 500 ms P Gree[place] 67 degrees R Gree[place] 93 degrees T [place] 62 degrees AGE AND GENDER SPECIFIC ECG [...] 382 ms QTC Calculation(Bazett) 500 ms P [place] 67 degrees R [place] 93 degrees T [place] 62 degrees AGE AND GENDER SPECIFIC ECG [...] MD Report Verified Date/Time:06/26/2016 13:12:31 Reading Location: [address] Radiology Reading Room Procedure Note Interface, [...] Report Verified Date/Time: 06/26/2016 13:12:31 Reading Location: [address] Radiology Reading Room * Type and Screen, Automated (06/26/2016 9:13 AM) Component Value Ref Range ABO/RH AUTOMATED (BEAKER) O POSITIVE Ab Scrn NEGATIVE Specimen Performing Laboratory Blood [facility] [address] [address] after 06/04/2016
[2017-06-05] MEDS ORDERED: PROMETHAZINE 12.5MG/ NACL 0.9% 12.5 MG/50 ML BAG IV ONE ×2 (11:15→16:00)
[2017-06-05] MEDS ORDERED: DIPHENHYDRAMINE HCL INJ 50 MG/ML VIAL IV PRN (11:15)
[2017-06-05] MEDS ORDERED: MORPHINE SULFATE 4 MG/ML SYR IV PRN (11:15)
[2017-06-05] MEDS ORDERED: MORPHINE SULFATE 2 MG/ML SYR IV PRN (11:30)
[2017-06-05] MEDS ORDERED: MORPHINE SULFATE 2 MG/ML SYR IV SCH (11:30)
[2017-06-05] MEDS ORDERED: DIATRIZOATE MEGL/DIATRIZOA SOD 30 ML BTL PO ONE (11:30)
[2017-06-05 11:44] LABS: BASOPHILS % 0.7 % (0.0-1.0); EOSINOPHILS # (AUTO) 0.2 (0.0-0.4); EOSINOPHILS % 3.2 % (0.0-6.0); HEMATOCRIT 32.7 % (34.2-44.1); HEMOGLOBIN 10.4 g/dL (12.0-16.0); LYMPHOCYTES # (AUTO) 1.1 (1.0-3.2); LYMPHOCYTES % 19.8 % (18.0-39.1); MEAN CORPUSCULAR HEMOGLOBIN 28.3 pg (28-32); MEAN CORPUSCULAR HGB CONC 31.8 g/dL (31-35); MEAN CORPUSCULAR VOLUME 89.1 fL (81-99); MONOCYTES # (AUTO) 0.3 (0.2-0.8); MONOCYTES % 5.9 % (4.4-11.3); NEUTROPHILS # (AUTO) 3.9 (2.1-6.9); PLATELET COUNT 198 x10e3/uL (140-360); RED BLOOD COUNT 3.67 x10e6/uL (3.6-5.1); RED CELL DISTRIBUTION WIDTH 17.3 % (11.7-14.4)
[2017-06-05 11:47] LABS: BILIRUBIN,URINE NEGATIVE (NEGATIVE); KETONES,URINE NEGATIVE (NEGATIVE); LEUKOCYTE ESTERASE ,URINE TRACE (NEGATIVE); NITRITE,URINE NEGATIVE (NEGATIVE); PROTEIN,URINE DIPSTICK 3+ (NEGATIVE); URINE UROBILINOGEN 0.2 mg/dL (0.2 - 1)
[2017-06-05 11:49] LABS: CLARITY,URINE SL CLOUDY (CLEAR); COLOR,URINE YELLOW (YELLOW)
--- NOTE | 2017-06-05 11:49 | Diagnostic Imaging Report ---
PROCEDURE: CHEST SINGLE (PORTABLE) COMPARISON: 05/30/2017. INDICATIONS: CHEST PAINS FINDINGS: Right internal jugular tunneled hemodialysis catheter and left chest port are unchanged in position, as is the previously described electronic cardiac device. Lung volumes are low with hazy perihilar opacities. Stable cardiomediastinal contour. No acute osseous abnormality. CONCLUSION: Low lung volumes with pulmonary venous congestion, similar in degree to 05/30/2017 when accounting for differences in technique. Dictated by: Arjun Villeda M.D. on 06/05/2017 at 11:48 Electronically approved by: Arjun Villeda M.D. on 06/05/2017 at 11:48
[2017-06-05 11:50] LABS: BACTERIA,URINE MODERATE /HPF; EPITHELIAL CELLS,URINE FEW /LPF; RBC,URINE 21-50 /HPF (0-5); WBC,URINE (MAN) 0-5 /HPF (0-5)
[2017-06-05 11:55] LABS: INR 1.35; PROTHROMBIN TIME 15.7 seconds (11.9-14.5)
[2017-06-05 11:56] LABS: PARTIAL THROMBOPLASTIN TIME 54.1 seconds (23.8-35.5)
[2017-06-05 12:06] LABS: ALANINE AMINOTRANSFERASE 17 IU/L (0-55); ALBUMIN 2.5 g/dL (3.5-5.0); ALBUMIN/GLOBULIN RATIO 0.5 (0.8-2.0); ALKALINE PHOSPHATASE 154 IU/L (40-150); AMYLASE 77 U/L (25-125); ANION GAP 16.7 mmol/L (8-16); BLOOD UREA NITROGEN 65 mg/dL (7-26); BUN/CREATININE RATIO 16 (6-25); CALCIUM 8.3 mg/dL (8.4-10.2); CARBON DIOXIDE 22 mmol/L (22-29); CHLORIDE 100 mmol/L (98-107); CREATINE KINASE 88 IU/L (29-168); CREATININE, SERUM 3.98 mg/dL (0.57-1.11); EST GLOMERULAR FILTRATION RATE 16 ML/MIN (60-); GLUCOSE 285 mg/dL (74-118); LIPASE 40 U/L (8-78); POTASSIUM 3.7 mmol/L (3.5-5.1); SODIUM 135 mmol/L (136-145)
[2017-06-05] MEDS ORDERED: LIDOCAINE HCL 2% LOCAL 20 ML VIAL PRN (12:17)
[2017-06-05] MEDS ORDERED: SODIUM CHLORIDE 0.9% 500ML 500 ML PRN (12:18)
[2017-06-05] MEDS ORDERED: MIDAZOLAM HCL 2 MG/2 ML VIAL PRN (12:32)
[2017-06-05] MEDS ORDERED: HEPARIN SOD (PORCINE) 1000 UNIT/ML 30ML PRN (12:32)
[2017-06-05] MEDS ORDERED: SODIUM CHLORIDE 0.9% 1000ML 1,000 ML PRN (12:32)
[2017-06-05] MEDS ORDERED: HEPARIN SOD/SOD CHLORIDE 1,000 ML PRN (13:01)
--- NOTE | 2017-06-05 15:05 | Diagnostic Imaging Report ---
PROCEDURE: CT ABDOMEN AND PELVIS WITHOUT CONTRAST COMPARISON:CT abdomen/pelvis 04/17/17. CT abdomen/pelvis 02/13/17 INDICATIONS:Abdominal pain TECHNIQUE: Axial CT images through the abdomen and pelvis were obtained without oral or IV contrast. Coronal and sagittal reformations were created. DLP: 292.67 mGy-cm FINDINGS: Lung bases: The pulmonary vasculature is prominent. There is diffuse groundglass attenuation throughout the visualized lung bases. This is stable. The heart is enlarged and contains a central venous catheter at the cavoatrial junction. There is a trace posterior right pleural effusion. Pericardial thickening/pericardial effusion measures 7 mm. The distal esophagus is normal. Liver: Normal attenuation. No evidence of mass. The right lobe measures 20 cm in length. Spleen: Normal size and attenuation without mass. Biliary: Gallbladder is absent. No biliary ductal dilatation. Pancreas: Normal attenuation without mass or ductal dilatation Adrenal Glands: No mass Kidneys: Mild perinephric haziness and haziness of the renal sinus fat. This is similar to previous exam. No mass or hydronephrosis. Vasculature: Aorta and IVC are normal in diameter. GI: Percutaneous GJ tube is present and in appropriate position. Small bowel is normal in diameter with normal wall thickness. There is a large amount of inspissated stool throughout the colon without mural thickening or pericolonic inflammation. The appendix is normal. Bladder/ureters: The well distended and appears normal. No ureteral dilatation. Peritoneum/Retroperitoneum: No free fluid or fluid collection. Reproductive organs: The uterus is atrophic. There no adnexal masses. Lymph nodes: No lymphadenopathy. MSK: Increased attenuation of the skeleton consistent with renal osteodystrophy. No focal osseous lesions. CONCLUSION: 1. Large amount of formed stool in the colon without bowel obstruction. This is consistent with constipation. No evidence of bowel inflammation. Normal appendix. 2. Haziness of the kidneys is stable and suggestive of end stage renal disease. Renal osteodystrophy. 3. Cardiomegaly and pulmonary vascular congestion with mild chronic pulmonary edema. 4. Hepatomegaly. 5. Medical devices as described above. Dictated by: Ana M De Paz M.D. on 06/05/2017 at 15:05 Electronically approved by: Ana M De Paz M.D. on 06/05/2017 at 15:05
[2017-06-05] MEDS ORDERED: DIPHENHYDRAMINE HCL INJ 50 MG/ML VIAL IV ONE (16:00)
[2017-06-05 16:37] VITALS: BP 121/96
--- NOTE | 2017-06-06 07:24 | Diagnostic Imaging Report ---
Date and Time: 06/05/2017 Procedure: Right internal jugular tunneled hemodialysis catheter exchange hydraulic lift operator: Christiana Pre-operative diagnosis: Externally fractured tunneled hemodialysis catheter Post-operative diagnosis: Intact tunneled hemodialysis catheter Conscious Sedation: Versed 2 mg intravenous. Intravenous morphine was also administered by emergency room personnel prior to transfer to the interventional suite. The patient's heart rate and pulse oximetry were continuously monitored by the interventional radiology nurse. Blood pressure was monitored at 5 minute intervals. Additional Medications: Lidocaine 1% for local anesthesia Fluoroscopy time: Not recorded due to equipment malfunction Frontal Air Kerma: Not recorded Contrast used: None Estimated blood loss: 10 cc Specimens: Tunneled hemodialysis catheter, saved for inspection by device hospital television rental clerk Implants: 16 Uzbek, 19 cm tip-cuff hemodialysis catheter Blood products administered: None Complications: No immediate Condition at completion of procedure: Stable Disposition: Return to emergency room DISCUSSION: Informed consent for the procedure was obtained and documented in the medical record after discussion of risks and benefits. Patient was placed in the supine position on the angiographic table. The right upper chest and existing hemodialysis catheter were prepped and draped in standard sterile fashion. 1% lidocaine was infiltrated along the tract of the dialysis catheter for local anesthesia. A 0.0 3 5-in. stiff hydrophilic wire was then advanced through one of the lumens of the dialysis catheter and into the inferior vena cava under fluoroscopic guidance. The catheter was removed over the wire and the area resterilized. A new 16 Uzbek, 19 cm tip-cuff hemodialysis catheter was then advanced over the wire and positioned with the tip in the upper right atrium. The wire was removed. Each lumen was tested and showed brisk bidirectional flow. The catheter was then packed with 2000 units of heparin in each port and secured to the skin with monofilament nylon suture. A sterile dressing was applied. The patient tolerated the procedure well without immediate complication. FINDINGS: 1. Fractured external tubing of the venous port of the hemodialysis catheter, despite having been replaced only 5 days prior. IMPRESSION: Successful fluoroscopic guided exchange of a damaged right internal jugular tunneled hemodialysis catheter. The new catheter is a 16 Uzbek, 19 cm tip-cuff length and may be used immediately. Signed by: Dr. Arjun Villeda M.D. on 06/06/2017 7:20 AM
--- NOTE | 2017-06-06 07:24 | Diagnostic Imaging Report ---
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 Intravenous morphine was also administered by emergency room personnel prior to transfer to the interventional suite. The patient's heart rate and pulse oximetry were continuously monitored by the interventional radiology nurse. Blood pressure was monitored at 5 minute intervals. 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 Patient was placed in the supine position on the angiographic table. The right upper chest and existing hemodialysis catheter were prepped and draped in standard sterile fashion. 1% lidocaine was infiltrated along the tract of the dialysis catheter for local anesthesia. A 0.0 3 5-in. stiff hydrophilic wire was then advanced through one of the lumens of the dialysis catheter and into the inferior vena cava under fluoroscopic guidance. The catheter was removed over the wire and the area resterilized. A new 16 Indian, 19 cm tip-cuff hemodialysis catheter was then advanced over the wire and positioned with the tip in the upper right atrium. The wire was removed. Each lumen was tested and showed brisk bidirectional flow. The catheter was then packed with 2000 units of heparin in each port and secured to the skin with monofilament nylon suture. A sterile dressing was applied. The patient tolerated the procedure well without immediate complication. FINDINGS: 1. Fractured external tubing of the venous port of the hemodialysis catheter, despite having been replaced only 5 days prior. IMPRESSION: Successful fluoroscopic guided exchange of a damaged right internal jugular tunneled hemodialysis catheter. The new catheter is a 16 Indian, 19 cm tip-cuff length and may be used immediately. Signed by: Dr. rAjun Villeda M.D. on 06/06/2017 7:20 AM
== END 2017-06-05 17:53 | disposition home or self-care (01) ==
LOC: ER 10:35
DX: T82.898A Other specified complication of vascular prosthetic devices, implants and grafts, initial encounter (principal); I12.0 Hypertensive chronic kidney disease with stage 5 chronic kidney disease or end stage renal disease; N18.6 End stage renal disease; Z99.2 Dependence on renal dialysis; R11.2 Nausea with vomiting, unspecified; R10.30 Lower abdominal pain, unspecified; N30.90 Cystitis, unspecified without hematuria; K59.00 Constipation, unspecified; F41.9 Anxiety disorder, unspecified; I50.9 Heart failure, unspecified; N31.9 Neuromuscular dysfunction of bladder, unspecified; Z95.810 Presence of automatic (implantable) cardiac defibrillator
CPT/HCPCS: 36415; 36565; 71045; 74176; 74470; 77001; 80053; 81001; 82150; 82550; 82553; 82948; 83690; 84484; 85025; 85610; 85730; 93005; 99284; C1750; C1751; C1769; J1200; J1642; J1644; J2001; J2250; J2270; J2550; J7030; J7040

== ENCOUNTER 2017-06-06 13:25 | Emergency (ER) | payer OTHER ==
[~2017-06-06] VITALS: Ht 161.3 cm; Wt 68.5 kg
--- OUTSIDE RECORDS SUMMARY | 2017-06-06 13:30 | XMS REPORT | Clinical Summary ---
Author Author [facility]ALY[facility] Address Unknown Phone Unavailable Care Team Providers Care Auger Supervisor Name Role Phone PCP Unavailable Allergies Active [...] (HCC) 08/22/2016 IDDM (insulin dependent diabetes mellitus) ([facility]) 08/22/2016 Epilepsy (HCC) 08/22/2016 Anxiety 08/22/2016 Chronic pain due to trauma 08/22/2016 Gastroparesis 08/22/2016 Diabetic polyneuropathy associated with type 1 diabetes mellitus (HCC) 08/22 Secondary hyperparathyroidism of renal origin ([facility]) 08/22/2016 Anemia in chronic kidney disease(285.21) 08/22/2016 Thrombocytopenia ([facility]) 08/22/2016 Pituitary tumor 08/22/2016 Benign hypertension with [...] evaluation Encounter for chronic kidney disease 06/26/2016 [facility] Anselmo Botello MD Pre-transplant evaluation Encounter for [...] for chronic kidney disease (Primary Dx) after 06/05/2016 Social History Tobacco Use Types Packs/Day Years [...] Component Value Ref Range Date of Serum 050056 Serum# [id number] Flow PRA Class I and II See Scanned Report Specimen Performing Laboratory Blood [facility] IMMUNE EVALUATION LAB [facility] Moraim[place], [place]:BC [address] [place] [address] * HLA Typing (07/19/2016 12:00 PM) Component Value Ref Range HLA Result See Scanned Report HLA-A AG1 HLA-A AG2 HLA-B AG1 HLA-B AG2 HLA-C AG1 HLA-C AG2 HLA-DR AG1 HLA-DR 2nd Antigen HLA-DQ AG1 HLA-DQ AG2 HLA-DRW Specimen Performing Laboratory Blood [facility] IMMUNE EVALUATION LAB [facility] One Juan Carlosalejo Valera, MS:BCM [address] [place] [address] * 2D Echo W/Doppler(CW/PW/Color) (07/19/2016 11:00 AM) Component Value Ref Range Ejection Fraction LV EF 27.4 % (55-75)* Index 16.5 %/m2 Specimen Performing [facility] [address] [place] [address] Voice:[phone] Transthoracic Echocardiogram Pat.Name:JEFF BERMEO Pat.ID:[id number] St.Date: 07/19/2016Refer.MD:ANSELMO BOTELLO Exam Time: 11:00:00 AM Study Type:Echo Complete Height:63inWeight:140lb BSA: 1.66 m2 DOBAge:1985,30Y Sex: FEMALEBP: 117/87 HR:108 bpm Sonogrphr: NOEMY Choudhary Pat. Stat.:[facility]patient[facility] Reason for Study:Pre-surgical evaluation of organ transplant [...] least 45-50 mmHg. PV: At least mild NH is present. AO: Proximal ascending aorta size [...] Aorta Ao Asc2.31 cm (2.1-3.4) Parasternal [place] Ao An 1.84 cm (1.4-2.6) LV%fs 19.8 [...] 07/20/2016 5:10 PM CDT Echocardiography Laboratory [address] [place] [address] Voice: [phone] Transthoracic Echocardiogram Pat.Name: JEFF BERMEO Pat.ID: [id number] St.Date: 07/19/2016 Refer.MD: ANSELMO BOTELLO Exam Time: 11:00:00 AM Study Type:Echo Complete Height: 63in Weight: 140lb BSA: 1.66 m2 Age: 9 1985,30Y Sex: FEMALE BP: 117/87 HR: 108 bpm Sonogrphr: NOEMY Choudhary Pat. Stat.:Outpatient Room: [facility] Reason for Study:Pre-surgical evaluation of organ transplant [...] least 45-50 mmHg. PV: At least mild NH is present. AO: Proximal ascending aorta size [...] Ao Asc 2.31 cm (2.1-3.4) Parasternal [place] Ao An 1.84 cm (1.4-2.6) LV%fs 19.8 [...] Cells 2+ moderate Specimen Performing Laboratory Blood [address] [address] * T Spot TB (07/19/2016 10:01 AM) Component Value Ref Range T-Spot TB Negative Neg Ctrl Spot Count 0 Panel A Spot 0 Panel B Spot [address] >20 Scan Result See scanned document Specimen Performing Laboratory Blood [facility] [address] [facility], [address] [place] [address] * PT/aPTT (07/19/2016 10:01 AM) Component Value Ref Range Protime 15.3 (H) 11.7 - 14.7 seconds INR 1.2 <=5.9 PTT 33.6 22.5 - 36.0 seconds Specimen Performing Laboratory Blood [address] [address] Narrative RECOMMENDED COUMADIN/WARFARIN INR THERAPY RANGES STANDARD DOSE: 2.0 - 3.0 Includes: PROPHYLAXIS for venous thrombosis, systemic embolization; TREATMENT for venous thrombosis and/or pulmonary embolus. HIGH RISK: Target INR is 2.5-3.5 for patients with mechanical heart valves. * HIV-1 Antigen with HIV-1/2 Antibody (07/19/2016 10:01 AM) Component Value Ref Range HIV-1 Antigen with HIV Nonreactive Nonreactive 1&2 Antibody Specimen Performing Laboratory [address] [address] * CBC with platelet count + automated [...] 0.20 K/ L Specimen Performing Laboratory Blood [address] [address] Narrative 0.00 * Hepatitis C Antibody (07/19/2016 10:01 AM) Component Value Ref Range Hepatitis C Ab Nonreactive Nonreactive Specimen Performing Laboratory [address] [address] * Cytomegalovirus antibody, IgM (07/19/2016 10:01 AM) Component Value Ref Range CMV IgM Negative Specimen Performing Laboratory Blood [address] [address] * Hepatitis B core antibody, IgM (07/19/2016 10:01 AM) Component Value Ref Range Hep B C IgM Nonreactive Nonreactive Specimen Performing Laboratory [address] [address] * EBV-VCA antibody, IgM (07/19/2016 10:01 AM) Component Value Ref Range EBV VCA IgM Negative [place] [address] * EBV-VCA antibody, IgG (07/19/2016 10:01 AM) Component Value Ref Range EBV VCA IgG Negative [place]imen [place] [address] * Blood typing, automated (07/19/2016 10:01 AM) Component Value Ref Range ABO/RH AUTOMATED (BEAKER) O POSITIVE Specimen [place] [address] * RPR (07/19/2016 10:01 AM) Component Value Ref Range RPR Nonreactive Nonreactive Specimen Performing Laboratory [address] [address] * Hepatitis B surface antibody (07/19/2016 10:01 AM) Component Value Ref Range Hep B S Ab 922.9 (H) <8.0 mIU/mL Specimen Performing Laboratory [address] [address] * Hepatitis B surface antigen (07/19/2016 10:01 AM) Component Value Ref Range hepatitis B Surface Ag Nonreactive Nonreactive Specimen Performing Laboratory [address] [address] * Cytomegalovirus antibody, IgG (07/19/2016 10:01 AM) Component Value Ref Range CMV IgG Positive Specimen Performing Laboratory [place] [id number] * Urinalysis, Routine (07/19/2016 10:01 AM) Component Value Ref Range Color, UA Yellow Clarity, UA Hazy Specific [place], UA 1.011 1.001 - 1.035 pH, UA [...] Many Specimen Source Specimen [place] [address] * CBC w/PLT Count & Auto Differential (07/19/2016 10:01 AM) Specimen Performing Laboratory Blood Narrative The following orders were created for panel order CBC w/PLT Count & Auto Differential. Procedure Abnormality Status --------- - ------ CBC with platelet count ...[[id number]]AbnormalFinal result Manual Differential[[id number]] Final result Please view results for these tests on the individual orders. * Direct AHG (YANICK)/Direct Alena (07/19/2016 10:01 AM) Component Value Ref Range Direct AHG-IGG NEGATIVE Direct AHG-C3B, C3D NEGATVIE Specimen [place] [address] * Urine Culture (07/19/2016 10:01 AM) Component Value Ref Range Result >100,000 col/mL Enterococcus species (A) Result 30-39,000 col/mL Marleen glabrata (A) Specimen Performing Laboratory Urine - Urine, [facility] Unspecified Source [address] [place] [address] Narrative 20-29,000 col/mL skin betsy Organism Antibiotic Method Susceptibility Enterococcus species Ampicillin DISK DIFFUSION Susceptible Enterococcus species Linezolid DISK DIFFUSION Susceptible Enterococcus species Nitrofurantoin DISK DIFFUSION Susceptible Enterococcus species Tetracycline DISK DIFFUSION Resistant Enterococcus species Vancomycin DISK DIFFUSION Susceptible * Varicella Zoster Antibody, IgG (07/19/2016 10:01 AM) Component Value Ref Range Varicella IgG >8.0 Al Specimen Performing Laboratory Blood [address] [place] [address] Narrative VARICELLA ZOSTER RESULT INTERPRETATIONS: <=0.8 AlNonreactive:Presumed non-immune to VZV 0.9-1.0 AlEquivocal >=1.1 AlReactive:Presumed immune to VZV * Uric Acid (07/19/2016 10:01 AM) Component Value Ref Range Uric Acid 3.9 2.6 - 7.2 mg/dL [place]imen [place] [address] * Phosphorus (07/19/2016 10:01 AM) Component Value Ref Range Phosphorus 5.7 (H) 2.3 - 4.7 mg/dL [place]imen [place] [address] * PTH, Intact (07/19/2016 10:01 AM) Component Value Ref Range PTH 243.8 (H) 8.5 - 72.5 pg/mL Specimen Performing Laboratory [address] [address] Narrative Effective 03/02/2014: Reference Range Change New: 8.5-72.5 Previous: 15.0-90.0 * Lactate Dehydrogenase (LDH) (07/19/2016 10:01 AM) Component Value Ref Range LDH 288 (H) 125 - 220 U/L Specimen Performing Laboratory [address] [address] * Hemoglobin A1c (07/19/2016 10:01 AM) Component Value Ref Range Hemoglobin A1C 6.2 (H) 4.3 - 6.1 % Specimen Performing Laboratory [address] [address] * Gamma Glutamyl Transferase (GGT) (07/19/2016 10:01 AM) Component Value Ref Range GGT 649 (H) 9 - 64 U/L Specimen Performing Laboratory [address] [address] * Lipid panel (07/19/2016 10:01 AM) Component Value Ref Range Triglycerides 115 mg/dL Cholesterol 179 mg/dL HDL 51 mg/dL LDL Calculated 105 mg/dL Specimen Performing Laboratory [address] [address] Narrative Triglyceride Reference Range: Low Risk <150 [id number] High Risk 200-499 Very High Risk>=500 Cholesterol Reference Range: Low Risk <200 [id number] High Risk>240 HDL Cholesterol Reference Range: Low Risk >=60 High Risk <40 LDL Cholesterol Reference Range: Optimal<100 Near [id number] Very High >=190 * Comprehensive metabolic panel [...] DIALYSIS PATIENTS. Specimen Performing Laboratory Blood [facility] [address] [address] * US abdomen complete (06/26/2016 1:07 PM) Specimen Performing Laboratory [facility] Narrative FINAL REPORT TECHNIQUE: Grayscale ultrasound of [...] MD Report Verified Date/Time:06/26/2016 15:27:17 Reading Location: [address] Radiology Reading Room Procedure Note Interface, [...] Report Verified Date/Time: 06/26/2016 15:27:17 Reading Location: [address] Radiology Reading Room * ECG 12 lead (06/26/2016 1:01 PM) Specimen Performing Laboratory [employer] Narrative Ventricular Rate 103 BPM Atrial Rate 103 BPM P-R Interval 176 ms QRS Duration 94 ms Q-T Interval 382 ms QTC Calculation(Bazett) 500 ms P [place] 67 degrees R [place] 93 degrees T [place] 62 degrees AGE AND GENDER SPECIFIC ECG [...] 382 ms QTC Calculation(Bazett) 500 ms P [place] 67 degrees R [place] 93 degrees T [place] 62 degrees AGE AND GENDER SPECIFIC ECG [...] MD Report Verified Date/Time:06/26/2016 13:12:31 Reading Location: [address] Radiology Reading Room Procedure Note Interface, [...] Report Verified Date/Time: 06/26/2016 13:12:31 Reading Location: [address] Radiology Reading Room * Type and Screen, Automated (06/26/2016 9:13 AM) Component Value Ref Range ABO/RH AUTOMATED (BEAKER) O POSITIVE Ab Scrn NEGATIVE Specimen Performing Laboratory Blood [facility] [address] [address] after 06/05/2016
--- OUTSIDE RECORDS SUMMARY | 2017-06-06 13:31 | XMS REPORT | Continuity of Care Document ---
Author Author [facility] Organization [facility] Address [address] [place] [address] Phone Unavailable Care Team Providers Care Care Services Manager Name Role Phone JOHN BAHENA MD PCP Insurance Providers Guarantor Sonam Bermeo Address [address] [place] [address] Email [email or web address] Payer [place] Medicaid Policy Number [id number] Subscriber's Name Jean-ClaudeSonam Pearson Relationship 18 Self / Same As Patient Group Number [id number] Group Name [id number] Effective Date 16 Advance Directives Directive Response Recorded Date/Time Does the patient have an advance directive? No 05/30/17 11:00pm If yes, is advance directive on file with [facility]? No 05/30/17 11:00pm If not on file with [facility] will patient provide a copy? Yes 05/30/17 11:00pm Do you have a Directive to Physician? No 06/05/17 12:40pm Do you have a Medical Power of Operating Room Orderly? No 06/05/17 12:40pm Do you have an out of hospital Do Not Resuscitate Order? No 06/05/17 12:40pm Do you have any special needs we should be aware of? No 06/05/17 12:40pm Do you have a support person here with you today? Yes 06/05/17 12:40pm Did patient receive Notice of Privacy Practices? Yes 06/05/17 12:40pm Did patient receive patient rights and responsibilities? Yes 06/05/17 12:40pm Problems Medical Problem Onset Date Status Abdominal [...] 30 Days 06/03/17 Fluticasone Propionate 1 Ea Deering 1 Ea Nasal Twice A Day 1 Fluticasone Propionate 1 Ea Deering 0 Ea Nasal Twice A Day 30 [...] Meals And At Bedtime 30 Days 06/03/17 Ipratropium Linneus 0.2 Mg/1 Ml Solution 2.5 Ml Nebullizer [...] Oral Bedtime as needed for Insomnia 14 Days 04/11/17 Urea 85.05 Gm Cr 0 Gm [...] Mg Oral Every 7 Days Discontinued Butalb/Acetaminophen/Caffeine (Vugdqi-Dbuuisfq-Tagn 50-325-40) 1 Each Tablet, Every 6 Hours [...] Tablet, 4 Mg Oral Twice A Day 06/07/16 Discontinued Esomeprazole Magnesium (Nexium) 40 Mg Capsule.dr, [...] needed for Pain And Temperature 11/09/15 Discontinued [id number] 30 Mg Tabcr, 30 Mg Oral Daily [...] No 05/30/2017 11:00pm Not Applicable Not Applicable Smoking Status Start Date Stop Date Never Smoker Hospital Discharge Instructions No hospital discharge instruction information available. Plan of Care Discharge Date 06/05/17 5:53pm Disposition HOME, SELF-CARE Condition at Discharge Stable Instructions/Education Provided Abdominal Pain - Adult Constipation - Adult Urinary Tract Infection - Women Forms Provided Work/School Excuse Prescriptions See Medication Section Referrals JOHN BAHENA MD Address: [address] [place] [id number] Additional Instructions/Education CLINICAL IMPRESSION: ACUTE ABDOMINAL PAIN CONSTIPATION ACUTE URINARY TRACT INFECTION WITH CYSTITIS DIALYSIS CATHETER IMPAIRMENT AND REPLACEMENT FOLLOW UP WITH YOUR HEALTHCARE PROVIDER IN 2 DAYS PRESCRIPTION: CEFTIN 500 MG TAKE ONE BY MOUTH TWICE A DAY FOR 10 DAYS #20 Functional Status No functional status information available. Allergies, Adverse Reactions, Alerts Allergen Type Severity Reaction Status Last Updated hydromorphone HCl Allergy Unknown Active 06/05/17 ketorolac tromethamine Allergy Unknown Active 06/05/17 ondansetron HCl Allergy Unknown Active 06/05/17 Penicillin Allergy Unknown Active 06/05/17 Latex Allergy Mild Active 06/05/17 Hydrocodone Allergy Unknown Active 06/05/17 Aspirin Allergy Unknown Active 06/05/17 Ibuprofen Allergy Unknown GI upset Active 06/05/17 Fentanyl Allergy Unknown Active 06/05/17 Tramadol Allergy Unknown Active 06/05/17 Clonidine Allergy Unknown Active 06/05/17 Hydromorphone Allergy Unknown Active 06/05/17 Ondansetron Allergy Unknown Active 06/05/17 Immunizations No immunization information available. Vital Signs Acute Vital Signs Vital Response Date/Time Temperature (Fahrenheit) 97.6 degrees F (97.6 - 99.5) 06/05/2017 4:37pm Pulse Pulse Rate (adult) 115 bpm (60 - 90) 06/05/2017 4:37pm Respiratory Rate 18 bpm (12 - 24) 06/05/2017 4:37pm Blood Pressure 121/96 mm Hg 06/05/2017 4:37pm Height 5 ft 3.5 in 06/05/2017 10:47am Weight 151 lb 06/05/2017 10:47am Body Mass Index 26.3 kg/m^2 06/05/2017 10:47am Results Laboratory Results Test Name Result Units [...] Negative 01/23/2017 11:00am 01/24/2017 6:40am Performed at: [facility] [address] [id number] Deputy County Clerk: Robles Samayoa MD, Phone: [phone] Clostridium Difficile Toxin A & B NEGATIVE NEGATIVE 01/31/2017 2:30am 01/31/2017 12:27pm Testing on stool aspirate specimens is outside gear machinist claims since specimen type not validated on this assay. Human Chorionic Gonadotropin, Quant < 1.20 mIU/mL 0-10 02/13/2017 7: 08pm 02/13/2017 7:50pm Urine Mucus MODERATE H RARE 03/30/2017 12:00am 03/30/2017 1:58am Urine Yeast MODERATE H NONE 04/11/2017 3:00pm 04/11/2017 3:19pm Human Chorionic Gonadotropin, Qual NEGATIVE NEGATIVE 04/16/2017 10: 00pm 04/16/2017 10:59pm Differential Total Cells Counted 100 06/03/2017 5:50am [...] Comment ABNORMAL 06/03/2017 5:50am 06/03/2017 8 :12am Urine Transitional Epithelial Cells FEW H NONE 05/30/2017 8:00pm 05/30 8:30pm Urine Renal Epithelial Cells FEW H NONE 05/30/2017 8:00pm 05/30/2017 8 :30pm Urine Test NEGATIVE NEGATIVE 05/30/2017 8:00pm 05/30/2017 8 :18pm Lactic Acid Level 6.8 MG/DL 4.5-19.8 05/30/2017 [...] ng/mL H 4.63-204.00 06/01/2017 6:00am 06/01/2017 7:27am B-Type Natriuretic Peptide 945.9 pg/mL H 0-100 06/01/2017 9:48am 2017 10:34am Thyroid Stimulating Hormone (TSH) 1.923 uIU/mL 0.350-4.940 [...] with a HCV Nucleic Acid Amplification test ([id number]). [facility] [address] [address] Dir: Robles Samayoa MD For inquiries, the physician may contact Branch: [phone] Lab: [phone] Stool Occult Blood POSITIVE H NEGATIVE 06/01/2017 10:57pm 06/01/2017 11:00pm White Blood Count 5.60 x10e3/uL 4.8-10.8 06/05/2017 11:30am 06/05/2017 11:53am Red Blood Count 3.67 x10e6/uL 3.6-5.1 06/05/2017 11:30am 06/05/2017 11: 53am Hemoglobin 10.4 g/dL L 12.0-16.0 06/05/2017 11:30am 06/05/2017 11:53am Hematocrit 32.7 % L 34.2-44.1 06/05/2017 11:30am 06/05/2017 11:53am Mean Corpuscular Volume 89.1 fL 81-99 06/05/2017 11:30am 06/05/2017 11: 53am Mean Corpuscular Hemoglobin 28.3 pg 28-32 06/05/2017 11:30am 2017 11:53am Mean Corpuscular Hemoglobin Concent 31.8 g/dL 31-35 06/05/2017 11:30am 06/05/2017 11:53am Red Cell Distribution Width 17.3 % H 11.7-14.4 06/05/2017 11:30am 2017 11:53am Platelet Count 198 x10e3/uL 140-360 06/05/2017 11:30am 06/05/2017 11: 53am Neutrophils (%) (Auto) 70.0 % 38.7-80.0 06/05/2017 11:30am 06/05/2017 11:53am Lymphocytes (%) (Auto) 19.8 % 18.0-39.1 06/05/2017 11:30am 06/05/2017 11:53am Monocytes (%) (Auto) 5.9 % 4.4-11.3 06/05/2017 11:30am 06/05/2017 11: 53am Eosinophils (%) (Auto) 3.2 % 0.0-6.0 06/05/2017 11:30am 06/05/2017 11: 53am Basophils (%) (Auto) 0.7 % 0.0-1.0 06/05/2017 11:3006/05/2017 11: 53am IM GRANULOCYTES % 0.4 % 0.0-1.0 06/05/2017 11:3006/05/2017 11:53am Neutrophils # (Auto) 3.9 2.1-6.9 06/05/2017 11:30am 06/05/2017 11: 53am Lymphocytes # (Auto) 1.1 1.0-3.2 06/05/2017 11:30am 06/05/2017 11: 53am Monocytes # (Auto) 0.3 0.2-0.8 06/05/2017 11:30am 06/05/2017 11:53am Eosinophils # (Auto) 0.2 0.0-0.4 06/05/2017 11:30am 06/05/2017 11: 53am Basophils # (Auto) 0.0 0.0-0.1 06/05/2017 11:30am 06/05/2017 11:53am Absolute Immature Granulocyte (auto 0.02 x10e3/uL 0-0.1 06/05/2017 11: 30am 06/05/2017 11:53am Prothrombin Time 15.7 seconds H 11.9-14.5 06/05/2017 11:30am 06/05/2017 11:57am Prothromb Time International Ratio 1.35 06/05/2017 11:30am 2017 11:57am Oral Anticoagulant Therapy INR Values: 1. Low Intensity Therapy 1.5 - 2.0 2. Moderate Intensity Therapy 2.0 - 3.0 3. High Intensity Therapy(1) 2.5 - 3.5 4. High Intensity Therapy(2) 3.0 - 4.0 5. Panic Value INR > 5.0 Activated Partial Thromboplast Time 54.1 seconds H 23.8-35.5 06/05/2017 11:30am 06/05/2017 11:57am Urine Color YELLOW YELLOW 06/05/2017 10:56am 06/05/2017 11:49am Urine Clarity SL CLOUDY CLEAR 06/05/2017 10:56am 06/05/2017 11:49am Urine Specific [place] 1.020 1.010-1.025 06/05/2017 10:56am 2017 11:49am Urine pH 5 5 - 7 06/05/2017 10:56am 06/05/2017 11:49am Urine Leukocyte Esterase TRACE H NEGATIVE 06/05/2017 10:56am 2017 11:49am Urine Nitrite NEGATIVE NEGATIVE 06/05/2017 10:56am 06/05/2017 11: 49am Urine Protein 3+ H NEGATIVE 06/05/2017 10:56am 06/05/2017 11:49am Urine Glucose (UA) TRACE H NEGATIVE 06/05/2017 10:56am 06/05/2017 11: 49am Urine Ketones NEGATIVE NEGATIVE 06/05/2017 10:56am 06/05/2017 11: 49am Urine Urobilinogen 0.2 mg/dL 0.2 - 1 06/05/2017 10:56am 06/05/2017 11: 49am Urine Bilirubin NEGATIVE NEGATIVE 06/05/2017 10:56am 06/05/2017 11: 49am Urine Blood 4+ H NEGATIVE 06/05/2017 10:56am 06/05/2017 11:49am Urine WBC 0-5 /HPF 0-5 06/05/2017 10:56am 06/05/2017 11:50am Urine RBC 21-50 /HPF H 0-5 06/05/2017 10:56am 06/05/2017 11:50am Urine Bacteria MODERATE /HPF H NONE 06/05/2017 10:56am 06/05/2017 11: 50am Urine Epithelial Cells FEW /LPF NONE 06/05/2017 10:56am 06/05/2017 11: 50am Sodium Level 135 mmol/L L 136-145 06/05/2017 11:30am 06/05/2017 12:08pm Potassium Level 3.7 mmol/L 3.5-5.1 06/05/2017 11:3006/05/2017 12: 08pm Chloride Level 100 mmol/L 98-107 06/05/2017 11:3006/05/2017 12:08pm Carbon Dioxide Level 22 mmol/L 22-29 06/05/2017 11:3006/05/2017 12: 08pm Anion Gap 16.7 mmol/L H 8-16 06/05/2017 11:3006/05/2017 12:08pm Blood Urea Nitrogen 65 mg/dL H 7-26 06/05/2017 11:3006/05/2017 12: 08pm Creatinine 3.98 mg/dL H 0.57-1.11 06/05/2017 11:3006/05/2017 12:08pm BUN/Creatinine Ratio 16 6-25 06/05/2017 11:3006/05/2017 12:08pm Estimat Glomerular Filtration Rate 16 ML/MIN L 60- 06/05/2017 11:30 12:08pm Ranges were taken from the National Kidney Disease Education Program and the National Kid[employer] Foundation literature. Reference ranges: 60 or greater: Normal 16-59 (for 3 consecutive months): Chronic kidney disease 15 or less: Kidney failure Glucose Level 285 mg/dL H 74-118 06/05/2017 11:30am 06/05/2017 12:08pm Calcium Level 8.3 mg/dL L 8.4-10.2 06/05/2017 11:3006/05/2017 12: 08pm Bedside Glucose 249 mg/dL H 70-120 06/05/2017 11:59am 06/05/2017 12: 06pm Meter ID: [id number] Total Bilirubin < 0.3 mg/dL 0.2-1.2 06/05/2017 11:3006/05/2017 12: 08pm Aspartate Amino Transf (AST/SGOT) 22 IU/L 5-34 06/05/2017 11:3006/05 12:08pm Alanine Aminotransferase (ALT/SGPT) 17 IU/L 0-55 06/05/2017 11:30 12:08pm Total Protein 7.8 g/dL 6.5-8.1 06/05/2017 11:3006/05/2017 12:08pm Albumin 2.5 g/dL L 3.5-5.0 06/05/2017 11:30am 06/05/2017 12:08pm Globulin 5.3 g/dL H 2.3-3.5 06/05/2017 11:30am 06/05/2017 12:08pm Albumin/Globulin Ratio 0.5 L 0.8-2.0 06/05/2017 11:30am 06/05/2017 12: 08pm Alkaline Phosphatase 154 IU/L H 40-150 06/05/2017 11:30am 06/05/2017 12: 08pm Creatine Kinase 88 IU/L 29-168 06/05/2017 11:30am 06/05/2017 12:08pm Creatine Kinase MB 4.00 ng/mL 0-5.0 06/05/2017 11:30am 06/05/2017 12: 13pm Troponin I 0.024 ng/mL 0-0.300 06/05/2017 11:30am 06/05/2017 12:13pm Amylase Level 77 U/L 25-125 06/05/2017 11:30am 06/05/2017 12:08pm Lipase 40 U/L 8-78 06/05/2017 11:30am 06/05/2017 12:08pm Microbiology Results Procedure Source Organism/Result Collection Date/Time [...] ENDO Completed 04/01/17 GILBERTO HENSLEY MD, JORGE DPJenn EXCISION OF STOMACH, ENDO, DIAGN Completed 04/01/17 [...] of pelvis, limited or follow-up Active 02/07/17 SETOUDEH,GAYLE PA X-ray of chest, two views Active 02/07/17 ZAIN-SOULEYMANE LATHAM MD Computed tomography of brain without radiopaque contrast Active 02/13/17 MAGNO MORFIN INSIDE ACCOUNT EXECUTIVE Computed tomography of cervical spine without contrast Active 02/13/17 MAGNO MORFIN INSIDE ACCOUNT EXECUTIVE CT of abdomen and pelvis without contrast Active 02/13/17 MAGNO MORFIN INSIDE ACCOUNT EXECUTIVE Computed tomography of brain without radiopaque contrast Active 04/04/17 UVALDO TERRY INSIDE ACCOUNT EXECUTIVE US abdomen complete Active 04/05/17 UVALDO TERRY INSIDE ACCOUNT EXECUTIVE X-ray of chest, single view Active 04/16/[address] of abdomen and pelvis without contrast Active 04/17/17 AMELIA COPPOLA PA X-ray of chest, single view Active 05/30/17 NICHELLE AMAYA INSIDE ACCOUNT EXECUTIVE CT of abdomen and pelvis without contrast Active 06/05/17 RY DRAPER MD Encounters Encounter Location Arrival/Admit Date Discharge/Depart Date Attending Provider Departed Emergency Room [facility] 06/05/17 10:35am 06/05 5:53pm RY DARPER MD Discharged Inpatient [facility] 05/30/17 9:24pm 06/03/17 6:37pm JOHN BAHENA MD Departed Emergency Room [facility] 04/16/17 1:31pm 3:00am MIREILLE AMOR MD [...] BAHENA MD Discharged Inpatient [facility] 01/02/17 12:31am 5:19pm JOHN BAHENA MD Discharged Inpatient [facility] 12/16/16 6:45pm 12/20/16 6:47pm JOHN BAHENA MD
[2017-06-06] MEDS ORDERED: FAMOTIDINE 20 MG/2 ML VIAL IV STA (18:37)
[2017-06-06] MEDS ORDERED: ONDANSETRON HCL INJ 2 MG/ML VIAL IV STA (18:40)
[2017-06-06 18:50] LABS: BILIRUBIN,URINE NEGATIVE (NEGATIVE); CLARITY,URINE HAZY (CLEAR); COLOR,URINE RED (YELLOW); KETONES,URINE NEGATIVE (NEGATIVE); LEUKOCYTE ESTERASE ,URINE 2+ (NEGATIVE); NITRITE,URINE NEGATIVE (NEGATIVE); PROTEIN,URINE DIPSTICK 3+ (NEGATIVE); URINE UROBILINOGEN 0.2 mg/dL (0.2 - 1)
[2017-06-06 19:05] LABS: BACTERIA,URINE MODERATE /HPF; EPITHELIAL CELLS,URINE FEW /LPF; MUCUS,URINE MODERATE (RARE); RBC,URINE >50 /HPF (0-5)
--- NOTE | 2017-06-06 20:29 | Diagnostic Imaging Report ---
EXAM: Abdomen 3 Views INDICATION: Pain near PEG tube. \S\Abdominal pain COMPARISON: None FINDINGS: Limited by body habitus. Nonobstructive bowel gas pattern. No signs of pneumoperitoneum. Large colonic stool burden. No calcification overlying renal shadows. Right upper quadrant surgical clips, likely related to cholecystectomy. Left lower chest wall single lead pacemaker is visualized. Right internal jugular dialysis catheter. Left subclavian port. Lungs are clear. Enlarged cardiac silhouette. PEG tube overlying left upper quadrant. There is a catheter in the expected location of duodenum, extending to the proximal jejunum. Please correlate clinically. No acute osseous abnormality. IMPRESSION: 1. Nonobstructive bowel gas pattern. 2. Lines and tubes as above. 3. Large colonic stool burden. Signed by: Dr. Ehsan Mccann MD on 06/06/2017 8:26 PM
[2017-06-06] MEDS ORDERED: DIATRIZOATE MEGL/DIATRIZOA SOD 30 ML BTL PO ONE (23:41)
[2017-06-06 23:42] LABS: BASOPHILS % 0.7 % (0.0-1.0); EOSINOPHILS # (AUTO) 0.2 (0.0-0.4); HEMATOCRIT 32.2 % (34.2-44.1); LYMPHOCYTES # (AUTO) 1.3 (1.0-3.2); LYMPHOCYTES % 22.4 % (18.0-39.1); MEAN CORPUSCULAR HEMOGLOBIN 27.4 pg (28-32); MEAN CORPUSCULAR HGB CONC 31.1 g/dL (31-35); MEAN CORPUSCULAR VOLUME 88.2 fL (81-99); MONOCYTES # (AUTO) 0.3 (0.2-0.8); MONOCYTES % 5.1 % (4.4-11.3); NEUTROPHILS # (AUTO) 4.1 (2.1-6.9); NEUTROPHILS % 68.3 % (38.7-80.0); PLATELET COUNT 189 x10e3/uL (140-360); RED BLOOD COUNT 3.65 x10e6/uL (3.6-5.1)
[2017-06-06 23:51] LABS: INR 1.39
[2017-06-06 23:52] LABS: PARTIAL THROMBOPLASTIN TIME 48.4 seconds (23.8-35.5)
[2017-06-07 00:01] LABS: ALANINE AMINOTRANSFERASE 20 IU/L (0-55); ALBUMIN 2.6 g/dL (3.5-5.0); ALBUMIN/GLOBULIN RATIO 0.5 (0.8-2.0); ALKALINE PHOSPHATASE 173 IU/L (40-150); ANION GAP 15.7 mmol/L (8-16); BLOOD UREA NITROGEN 78 mg/dL (7-26); BUN/CREATININE RATIO 20 (6-25); CALCIUM 8.3 mg/dL (8.4-10.2); CARBON DIOXIDE 21 mmol/L (22-29); CHLORIDE 104 mmol/L (98-107); CREATININE, SERUM 3.94 mg/dL (0.57-1.11); EST GLOMERULAR FILTRATION RATE 16 ML/MIN (60-); GLUCOSE 179 mg/dL (74-118); LIPASE 34 U/L (8-78); MAGNESIUM 2.1 MG/DL (1.3-2.1); POTASSIUM 3.7 mmol/L (3.5-5.1); SODIUM 137 mmol/L (136-145)
[2017-06-07] MEDS ORDERED: DIPHENHYDRAMINE HCL INJ 50 MG/ML VIAL IV ONE (00:15)
[2017-06-07] MEDS ORDERED: PROMETHAZINE 25MG/ NS 50ML (IV) IV ONE (00:15)
[2017-06-07] MEDS ORDERED: PROMETHAZINE 25MG/SOD CHL 0.9% 50 ML ONE (01:10)
[2017-06-07] MEDS ORDERED: CLONIDINE HCL 0.1 MG TAB ONE (01:10)
--- NOTE | 2017-06-07 01:54 | Diagnostic Imaging Report ---
EXAMINATION: CHEST SINGLE (PORTABLE) INDICATION: End-stage renal disease COMPARISON: 06/06/2017 FINDINGS: TUBES and LINES: Right IJ dialysis catheter. Left-sided chest port, stable. AICD device overlying the left lateral chest wall LUNGS: Lungs are not well inflated. There is perihilar interstital opacities, consistent with interstitial edema. PLEURA: No pleural effusion or pneumothorax. HEART AND MEDIASTINUM: Cardiac size is moderately enlarged. BONES AND SOFT TISSUES: No acute osseous lesion. Soft tissues are unremarkable. UPPER ABDOMEN: No free air under the diaphragm. IMPRESSION: Findings are compatible with recurrent cardiogenic pulmonary edema. Signed by: Dr. Aris Hilliard M.D. on 06/07/2017 1:51 AM
[2017-06-07 03:02] VITALS: BP 128/91
[2017-06-07] MEDS ORDERED: HEPARIN SOD (PORCINE) 1000 UNIT/ML SDV ONE (03:35)
[2017-06-07] MEDS ORDERED: HEPARIN SOD (PORCINE) 1000 UNIT/ML 10ML MDV IV ONE (03:45)
[2017-06-07] MEDS ORDERED: HEPARIN SOD (PORCINE) 5,000 UNIT/ML VIAL IV SCH (06:00)
== END 2017-06-07 04:10 | disposition home or self-care (01) ==
LOC: ER 13:25
DX: N30.91 Cystitis, unspecified with hematuria (principal); N18.9 Chronic kidney disease, unspecified; K59.00 Constipation, unspecified
CPT/HCPCS: 36415; 71045; 74022; 80053; 81001; 81025; 82150; 82270; 83690; 83735; 84311; 84484; 85025; 85610; 85730; 86850; 86900; 87086; 99284; J1200; J2550; J1644

== ENCOUNTER 2017-06-25 17:35 | Observation (INO) | payer OTHER ==
[~2017-06-25] VITALS: Ht 161.3 cm; Wt 68.0 kg
--- OUTSIDE RECORDS SUMMARY | 2017-06-25 17:39 | XMS REPORT | Continuity of Care Document ---
Author Author [facility] Organization [facility] Address [address] [place] [address] Phone Unavailable Care Team Providers Care Coat Finisher Name Role Phone JOHN BAHENA MD PCP Insurance Providers Guarantor Sonam Bermeo Address [address] [place] [address] Email [email or web address] [place] Medicaid Policy Number [id number] Subscriber's Name Jean-ClaudeSonam Pearson Relationship 18 Self / Same As Patient Group Number [id number] Group Name UNEMPLOYED Effective Date 16 Advance Directives Directive Response Recorded Date/Time Does the patient have an advance directive? No 05/30/17 11:00pm If yes, is advance directive on file with [facility]? No 05/30/17 11:00pm If not on file with [facility] will patient provide a copy? Yes 05/30/17 11:00pm Do you have a Directive to Physician? No 06/06/17 3:16pm Do you have a Medical Power of Crocheter Hand? No 06/06/17 3:16pm Do you have an out of hospital Do Not Resuscitate Order? No 06/06/17 3:16pm Do you have any special needs we should be aware of? No 06/06/17 3:16pm Do you have a support person here with you today? Yes 06/06/17 3:16pm Did patient receive Notice of Privacy Practices? Yes 06/06/17 3:16pm Did patient receive patient rights and responsibilities? Yes 06/06/17 3:17pm Problems Medical Problem Onset Date Status Abdominal [...] 30 Days 06/03/17 Fluticasone Propionate 1 Ea [place] 1 Ea Nasal Twice A Day 1 Fluticasone Propionate 1 Ea [place] 0 Ea Nasal Twice A Day 30 [...] And At Bedtime 30 Days 06/03/17 Ipratropium [place] 0.2 Mg/1 Ml Solution 2.5 Ml Nebullizer [...] Mg Oral Every 7 Days Discontinued Butalb/Acetaminophen/Caffeine (Nmlyzb-Jfvmkjig-Dkvv 50-325-40) 1 Each Tablet, Every 6 Hours [...] needed for Pain And Temperature 11/09/15 Discontinued Jio30xyr 30 Mg Tabcr, 30 Mg Oral Daily [...] information available. Plan of Care Discharge Date 06/07/17 4:10am Disposition HOME, SELF-CARE Condition at Discharge Stable Instructions/Education Provided Constipation - Adult Kidney Failure Urinary Tract Infection - Women Vomiting - Adult Forms Provided Work/School Excuse Prescriptions See Medication Section Referrals JOHN BAHENA MD Address: [address] [place] [id number] Additional Instructions/Education DC HOME FOLLOW UP WITH PCP-DR. BAHENA TAKE MEDS DIRECTED RETURN TO THE ER WITH ANY EMERGENT CONDITION FOLLOW UP WITH Nory PARK TODAY FOLLOW UP WITH RENAL SPECIALIST FOR DIALYSIS TODAY Functional Status No functional status information available. Allergies, Adverse Reactions, Alerts Allergen Type Severity Reaction Status Last Updated hydromorphone HCl Allergy Unknown Active 06/05/17 ketorolac tromethamine Allergy Unknown Active 06/06/17 ondansetron HCl Allergy Unknown Active 06/06/17 Penicillin Allergy Unknown Active 06/06/17 Latex Allergy Mild Active 06/06/17 Hydrocodone Allergy Unknown Active 06/06/17 Aspirin Allergy Unknown Active 06/06/17 Ibuprofen Allergy Unknown GI upset Active 06/06/17 Fentanyl Allergy Unknown Active 06/06/17 Tramadol Allergy Unknown Active 06/06/17 Clonidine Allergy Unknown Active 06/06/17 Hydromorphone Allergy Unknown Active 06/06/17 Ondansetron Allergy Unknown Active 06/06/17 Immunizations No immunization information available. Vital Signs Acute Vital Signs Vital Response Date/Time Temperature (Fahrenheit) 97.6 degrees F (97.6 - 99.5) 06/05/2017 4:37pm Pulse Pulse Rate (adult) 114 bpm (60 - 90) 06/07/2017 3:02am Respiratory Rate 14 bpm (12 - 24) 06/07/2017 3:02am Blood Pressure 128/91 mm Hg 06/07/2017 3:02am Height 5 ft 3.5 in 06/06/2017 2:00pm Weight 151 lb 06/06/2017 2:00pm Body Mass Index 26.3 kg/m^2 06/06/2017 2:00pm Results Laboratory Results Test Name Result Units [...] 01/23/2017 11:00am 01/24/2017 6:40am Performed at: - [facility] [address] [id number] Senior Linux Systems Engineer: Robles Samayoa MD, Phone: [phone] Clostridium Difficile Toxin A & B NEGATIVE NEGATIVE 01/31/2017 2:30am 01/31/2017 12:27pm Testing on stool aspirate specimens is outside principal web developer claims since specimen type not validated on this assay. Human Chorionic Gonadotropin, Quant < 1.20 mIU/mL 0-10 02/13/2017 7: 08pm 02/13/2017 7:50pm Urine Yeast MODERATE H NONE 04/11/2017 3:00pm [...] H NONE 05/30/2017 8:00pm 05/30/2017 8 :30pm Lactic Acid Level 6.8 MG/DL 4.5-19.8 05/30/2017 8:20pm 05/30/2017 8: 47pm Iron Level 70 ug/dL 50-170 06/01/2017 6:00am [...] with a HCV Nucleic Acid Amplification test ([id number]). [facility] [address] [id number] Dir: Robles Samayoa MD For inquiries, the physician may contact Branch: [phone] Lab: [phone] Bedside Glucose 249 mg/dL H 70-120 06/05/2017 11:59am 06/05/2017 12: 06pm Meter ID: [id number] Creatine Kinase 88 IU/L 29-168 06/05/2017 11:30am 06/05/2017 12:08pm Creatine Kinase MB 4.00 ng/mL 0-5.0 06/05/2017 11:30am 06/05/2017 12: 13pm White Blood Count 5.94 x10e3/uL 4.8-10.8 06/06/2017 11:30pm 06/06/2017 11:42pm Red Blood Count 3.65 x10e6/uL 3.6-5.1 06/06/2017 11:30pm 06/06/2017 11: 42pm Hemoglobin 10.0 g/dL L 12.0-16.0 06/06/2017 11:30pm 06/06/2017 11:42pm Hematocrit 32.2 % L 34.2-44.1 06/06/2017 11:30pm 06/06/2017 11:42pm Mean Corpuscular Volume 88.2 fL 81-99 06/06/2017 11:30pm 06/06/2017 11: 42pm Mean Corpuscular Hemoglobin 27.4 pg L 28-32 06/06/2017 11:30pm 2017 11:42pm Mean Corpuscular Hemoglobin Concent 31.1 g/dL 31-35 06/06/2017 11:30pm 06/06/2017 11:42pm Red Cell Distribution Width 17.0 % H 11.7-14.4 06/06/2017 11:30pm 2017 11:42pm Platelet Count 189 x10e3/uL 140-360 06/06/2017 11:30pm 06/06/2017 11: 42pm Neutrophils (%) (Auto) 68.3 % 38.7-80.0 06/06/2017 11:30pm 06/06/2017 11:42pm Lymphocytes (%) (Auto) 22.4 % 18.0-39.1 06/06/2017 11:30pm 06/06/2017 11:42pm Monocytes (%) (Auto) 5.1 % 4.4-11.3 06/06/2017 11:30pm 06/06/2017 11: 42pm Eosinophils (%) (Auto) 3.0 % 0.0-6.0 06/06/2017 11:30pm 06/06/2017 11: 42pm Basophils (%) (Auto) 0.7 % 0.0-1.0 06/06/2017 11:30pm 06/06/2017 11: 42pm IM GRANULOCYTES % 0.5 % 0.0-1.0 06/06/2017 11:30pm 06/06/2017 11:42pm Neutrophils # (Auto) 4.1 2.1-6.9 06/06/2017 11:30pm 06/06/2017 11: 42pm Lymphocytes # (Auto) 1.3 1.0-3.2 06/06/2017 11:30pm 06/06/2017 11: 42pm Monocytes # (Auto) 0.3 0.2-0.8 06/06/2017 11:30pm 06/06/2017 11:42pm Eosinophils # (Auto) 0.2 0.0-0.4 06/06/2017 11:30pm 06/06/2017 11: 42pm Basophils # (Auto) 0.0 0.0-0.1 06/06/2017 11:30pm 06/06/2017 11:42pm Absolute Immature Granulocyte (auto 0.03 x10e3/uL 0-0.1 06/06/2017 11: 30pm 06/06/2017 11:42pm Prothrombin Time 16.0 seconds H 11.9-14.5 06/06/2017 11:30pm 06/06/2017 11:53pm Prothromb Time International Ratio 1.39 06/06/2017 11:30pm 2017 11:53pm Oral Anticoagulant Therapy INR Values: 1. Low Intensity Therapy 1.5 - 2.0 2. Moderate Intensity Therapy 2.0 - 3.0 3. High Intensity Therapy(1) 2.5 - 3.5 4. High Intensity Therapy(2) 3.0 - 4.0 5. Panic Value INR > 5.0 Activated Partial Thromboplast Time 48.4 seconds H 23.8-35.5 06/06/2017 11:30pm 06/06/2017 11:53pm Urine Color RED H YELLOW 06/06/2017 5:15pm 06/06/2017 6:50pm Urine Clarity HAZY CLEAR 06/06/2017 5:15pm 06/06/2017 6:50pm Urine Specific [place] 1.015 1.010-1.025 06/06/2017 5:15pm 2017 6:50pm Urine pH 5 5 - 7 06/06/2017 5:15pm 06/06/2017 6:50pm Urine Leukocyte Esterase 2+ H NEGATIVE 06/06/2017 5:15pm 06/06/2017 6: 50pm Urine Nitrite NEGATIVE NEGATIVE 06/06/2017 5:15pm 06/06/2017 6:50pm Urine Protein 3+ H NEGATIVE 06/06/2017 5:15pm 06/06/2017 6:50pm Urine Glucose (UA) NEGATIVE NEGATIVE 06/06/2017 5:15pm 06/06/2017 6: 50pm Urine Ketones NEGATIVE NEGATIVE 06/06/2017 5:15pm 06/06/2017 6:50pm Urine Urobilinogen 0.2 mg/dL 0.2 - 1 06/06/2017 5:15pm 06/06/2017 6: 50pm Urine Bilirubin NEGATIVE NEGATIVE 06/06/2017 5:15pm 06/06/2017 6: 50pm Urine Blood 4+ H NEGATIVE 06/06/2017 5:15pm 06/06/2017 6:50pm Urine WBC 11-20 /HPF H 0-5 06/06/2017 5:15pm 06/06/2017 7:05pm Urine RBC >50 /HPF H 0-5 06/06/2017 5:15pm 06/06/2017 7:05pm Urine Bacteria MODERATE /HPF H NONE 06/06/2017 5:15pm 06/06/2017 7:05pm Urine Epithelial Cells FEW /LPF NONE 06/06/2017 5:15pm 06/06/2017 7: 05pm Urine Mucus MODERATE H RARE 06/06/2017 5:15pm 06/06/2017 7:05pm Urine Test NEGATIVE NEGATIVE 06/06/2017 5:15pm 06/06/2017 7 :22pm Sodium Level 137 mmol/L 136-145 06/06/2017 11:30pm 06/07/2017 12:01am Potassium Level 3.7 mmol/L 3.5-5.1 06/06/2017 11:30pm 06/07/2017 12: 01am Chloride Level 104 mmol/L 98-107 06/06/2017 11:30pm 06/07/2017 12:01am Carbon Dioxide Level 21 mmol/L L 22-29 06/06/2017 11:30pm 06/07/2017 12: 01am Anion Gap 15.7 mmol/L 8-16 06/06/2017 11:30pm 06/07/2017 12:01am Blood Urea Nitrogen 78 mg/dL H 7-26 06/06/2017 11:30pm 06/07/2017 12: 01am Creatinine 3.94 mg/dL H 0.57-1.11 06/06/2017 11:30pm 06/07/2017 12:01am BUN/Creatinine Ratio 20 6-25 06/06/2017 11:30pm 06/07/2017 12:01am Estimat Glomerular Filtration Rate 16 ML/MIN L 60- 06/06/2017 11:30pm 12:01am Ranges were taken from the National Kidney Disease Education Program and the National Kidney Foundation literature. Reference ranges: 60 or greater: Normal 16-59 (for 3 consecutive months): Chronic kidney disease 15 or less: Kidney failure Glucose Level 179 mg/dL H 74-118 06/06/2017 11:30pm 06/07/2017 12:01am Calcium Level 8.3 mg/dL L 8.4-10.2 06/06/2017 11:30pm 06/07/2017 12: 01am Magnesium Level 2.1 MG/DL 1.3-2.1 06/06/2017 11:30pm 06/07/2017 12: 01am Total Bilirubin < 0.3 mg/dL 0.2-1.2 06/06/2017 11:30pm 06/07/2017 12: 01am Aspartate Amino Transf (AST/SGOT) 16 IU/L 5-34 06/06/2017 11:30pm 06/07 12:01am Alanine Aminotransferase (ALT/SGPT) 20 IU/L 0-55 06/06/2017 11:30pm 12:01am Total Protein 7.9 g/dL 6.5-8.1 06/06/2017 11:30pm 06/07/2017 12:01am Albumin 2.6 g/dL L 3.5-5.0 06/06/2017 11:30pm 06/07/2017 12:01am Globulin 5.3 g/dL H 2.3-3.5 06/06/2017 11:30pm 06/07/2017 12:01am Albumin/Globulin Ratio 0.5 L 0.8-2.0 06/06/2017 11:30pm 06/07/2017 12: 01am Alkaline Phosphatase 173 IU/L H 40-150 06/06/2017 11:30pm 06/07/2017 12: 01am Troponin I 0.006 ng/mL 0-0.300 06/06/2017 11:30pm 06/07/2017 12:13am Amylase Level 69 U/L 25-125 06/06/2017 11:30pm 06/06/2017 11:53pm Lipase 34 U/L 8-78 06/06/2017 11:30pm 06/07/2017 12:01am Stool Occult Blood POSITIVE H NEGATIVE 06/06/2017 11:30pm 06/06/2017 11:41pm Microbiology Results Procedure Source Organism/Result Collection Date/Time [...] X-ray of chest, two views Active 02/07/17 LIVANI-SOULEYMANE LATHAM MD Computed tomography of brain without radiopaque contrast Active 02/13/17 MAGNO MORFIN SERVICE LIAISON REPRESENTATIVE Computed tomography of cervical spine without contrast Active 02/13/17 MAGNO MORFIN SERVICE LIAISON REPRESENTATIVE CT of abdomen and pelvis without contrast Active 02/13/17 MAGNO MORFIN SERVICE LIAISON REPRESENTATIVE Computed tomography of brain without radiopaque contrast Active 04/04/17 UVALDO TERRY SERVICE LIAISON REPRESENTATIVE US abdomen complete Active 04/05/17 UVALDO TERRY SERVICE LIAISON REPRESENTATIVE X-ray of chest, single view Active 04/16/17 ANAT,VINCENT PA CT of abdomen and pelvis without contrast Active 04/17/17 AMELIA COPPOLA PA X-ray of chest, single view Active 05/30/17 NICHELLE AMAYA SERVICE LIAISON REPRESENTATIVE CT of abdomen and pelvis without contrast Active 06/05/17 RY DRAPER MD Encounters Encounter Location Arrival/Admit Date Discharge/Depart Date Attending Provider Departed [facility] 06/06/17 1:25pm 4:10am MIREILLE AMOR MD [facility] Emergency [facility] 06/05/17 10:35am 06/05 5:53pm RY DRAPER MD Discharged [facility]patient [facility] 05/30/17 9:24pm 06/03/17 6:37pm JOHN BAHENA MD Departed Emergency [facility] 04/16/17 1:31pm 3:00am MIREILLE AMOR MD Departed Emergency [facility] 04/14/17 12:59pm 04/14 3:33pm CHAD ENAMORADO MD Discharged Inpatient [facility] 04/05/17 11:05am 6:03pm JOHN BAHENA MD [facility]arted [facility] 02/19/17 3:59am 4:23pm SAM BLACK MD Departed Emergency [facility] 02/13/17 5:05pm 12:06am MIREILLE AMOR MD Discharged [facility]patient [facility] 01/23/17 4:02am 02/11/17 4:47pm JOHN BAHENA MD Discharged [facility]patient [facility] 01/02/17 12:31am 5:19pm JOHN BAHENA MD Discharged [facility]patient [facility] 12/16/16 6:45pm 12/20/16 6:47pm JOHN BAHENA MD
[2017-06-25 18:35] LABS: BASOPHILS % 0.4 % (0.0-1.0); EOSINOPHILS # (AUTO) 0.1 (0.0-0.4); EOSINOPHILS % 0.9 % (0.0-6.0); HEMATOCRIT 25.3 % (34.2-44.1); LYMPHOCYTES # (AUTO) 1.1 (1.0-3.2); LYMPHOCYTES % 20.8 % (18.0-39.1); MEAN CORPUSCULAR HGB CONC 30.4 g/dL (31-35); MONOCYTES # (AUTO) 0.2 (0.2-0.8); MONOCYTES % 4.2 % (4.4-11.3); NEUTROPHILS # (AUTO) 3.9 (2.1-6.9); NEUTROPHILS % 73.1 % (38.7-80.0); PLATELET COUNT 178 x10e3/uL (140-360); RED BLOOD COUNT 2.75 x10e6/uL (3.6-5.1); RED CELL DISTRIBUTION WIDTH 17.4 % (11.7-14.4)
--- NOTE | 2017-06-25 18:35 | Diagnostic Imaging Report ---
PROCEDURE: A single AP view of the chest. COMPARISON: Patients [facility], DX, CHEST SINGLE (PORTABLE), 06/07/2017, 0:52. INDICATIONS: vomiting FINDINGS: Lines/tubes: Unchanged right IJ dialysis catheter, left sided port and AICD device in the left lateral chest wall. Lungs: Lungs are mildly hypoinflated. Bilateral interstitial opacities extending from the candi, consistent with interstitial edema. Pleura: There is no pleural effusion or pneumothorax. Heart and mediastinum: Stable moderate enlargement of the cardiac silhouette. Central pulmonary venous congestion. Bones: No acute bony abnormality. IMPRESSION: 1. stable moderate enlargement of the cardiac silhouette, with bilateral central pulmonary venous congestion and mild interstitial edema, suggesting fluid overload. Db Barth M.D. Dictated by: Db Barth M.D. on 06/25/2017 at 18:34 Electronically approved by: Db Barth M.D. on 06/25/2017 at 18:34
[2017-06-25 18:38] LABS: HEMOGLOBIN 7.7 g/dL (12.0-16.0)
[2017-06-25 18:45] LABS: INR 1.88; PROTHROMBIN TIME 20.3 seconds (11.9-14.5)
[2017-06-25 18:46] LABS: PARTIAL THROMBOPLASTIN TIME 68.6 seconds (23.8-35.5)
[2017-06-25 18:52] LABS: ALBUMIN 2.8 g/dL (3.5-5.0); ALBUMIN/GLOBULIN RATIO 0.7 (0.8-2.0); ANION GAP 17.5 mmol/L (8-16); CALCIUM 7.6 mg/dL (8.4-10.2); CREATININE, SERUM 4.53 mg/dL (0.57-1.11); POTASSIUM 4.5 mmol/L (3.5-5.1)
[2017-06-25 18:58] LABS: CREATINE KINASE MB 3.8 ng/mL (0-5.0)
[2017-06-25] MEDS ORDERED: PROMETHAZINE 12.5MG/ NACL 0.9% 12.5 MG/50 ML BAG IV PRN (19:00)
[2017-06-25] MEDS: MORPHINE SULFATE 2 MG/ML SYR IV PRN (19:34)
[2017-06-25] MEDS: DIPHENHYDRAMINE HCL INJ 50 MG/ML VIAL IV PRN (19:35)
[2017-06-25] MEDS: PROMETHAZINE 12.5MG/ NACL 0.9% 50 ML IV PRN (19:35)
[2017-06-25 20:10] VITALS: BP 134/105
[2017-06-25 20:30] VITALS: BP 127/83
[2017-06-25] MEDS ORDERED: SODIUM CHLORIDE 0.9% 250ML 250 ML ONE (23:53)
[2017-06-26] VITALS (7 sets, daily range): BP systolic 128–149; BP diastolic 87–106
[2017-06-26] MEDS: MORPHINE SULFATE 2 MG/ML SYR IV PRN ×5 (02:00→23:46)
[2017-06-26] MEDS: DIPHENHYDRAMINE HCL INJ 50 MG/ML VIAL IV PRN ×3 (02:00→20:01)
[2017-06-26] MEDS: PROMETHAZINE 12.5MG/ NACL 0.9% 50 ML IV PRN ×3 (02:00→20:02)
[2017-06-26] MEDS ORDERED: SODIUM CHLORIDE 0.9% 250ML 250 ML IV ONE (08:15)
[2017-06-26] MEDS: METOCLOPRAMIDE HCL 10 MG TAB PO SCH ×4 (08:15→22:03)
[2017-06-26] MEDS ORDERED: DEXTROSE 50% SYRINGE 50 ML IV PRN (08:15)
[2017-06-26] MEDS ORDERED: EPOETIN ALFA 10000 UNIT/ML VIAL SC SCH (08:15)
[2017-06-26] MEDS ORDERED: ALBUTEROL SULF 0.083% NEB SOLN 3 ML NEB INH SCH (08:15)
[2017-06-26] MEDS: PANTOPRAZOLE SODIUM 40 MG SUSPDR.PKT PO SCH ×2 (08:15→17:21)
[2017-06-26] MEDS: SUCRALFATE 1 GM/10 ML SUSP PO SCH ×4 (08:15→20:01)
[2017-06-26] MEDS ORDERED: DIPHENHYDRAMINE HCL INJ 50 MG/ML VIAL IV ONE (08:15)
--- NOTE | 2017-06-26 08:21 | Consultation ---
DATE OF CONSULTATION: June 26, 2017 HISTORY OF PRESENT ILLNESS: The patient is well known to me. She is a 31-year-old high risk dialysis patient who apparently lost her chair at the dialysis facility. Has not had dialysis since Saturday. Completely asymptomatic right now, except for some chest tightness occasionally. Denies any nausea or vomiting. No fever. Found to have a white count of 5.3, hemoglobin 7.7 with a potassium of 4.5. Creatinine 4.53. BNP 2835. ALLERGIES: SHE IS ALLERGIC TO SEVERAL MEDICATIONS OF LATEX, NATURAL RUBBER, PENICILLIN, ASPIRIN, CLONIDINE, FENTANYL, HYDROCODONE, HYDROMORPHONE, IBUPROFEN. SOCIAL HISTORY: Patient does not smoke or drink. Has a very supportive mother. History of cardiomegaly, left ventricular hypertrophy, poor ejection fraction, congestive heart failure, history of recent urinary tract infection, history of AICD placement, PEG placement in February. Has a Port-A-Cath. Has a dialysis catheter. Her ejection fraction is about 30% to 40%. History of gastritis, esophagitis, cardiomyopathy, anemia of chronic kidney disease. REVIEW OF SYSTEMS: As above. FAMILY HISTORY: Significant for hypertension. PHYSICAL EXAMINATION GENERAL: Awake, alert and lying supine. No apparent distress. VITALS: Blood pressure 127/83, pulse rate 114, afebrile, oxygen saturation 100%. HEAD AND NECK: Cornea clear. Mucosa dry. Neck veins flat. LUNGS: Rales bibasilar, right more than left. HEART: S1 and S2 audible. No rubs or gallop. ABDOMEN: Soft and nontender. LOWER EXTREMITY EXAMINATION: Two plus edema. IMPRESSION AND PLAN: High risk noncompliant dialysis patient who is mostly in the hospital with anemia. Plan to transfuse 2 units of packed red blood cells on dialysis. Dialysis today. Case management to make arrangements to send her to back to her original dialysis center. Job#: [id number] ULISSES
[2017-06-26] MEDS: PHENYTOIN SODIUM EXT REL 100 MG CAP PO SCH ×2 (09:00→22:02)
[2017-06-26] MEDS: DOCUSATE SODIUM 100 MG CAP PO SCH ×2 (09:00→17:00)
[2017-06-26] MEDS: FUROSEMIDE 40 MG TAB PO SCH ×2 (09:00→17:21)
[2017-06-26] MEDS: CLONAZEPAM 1 MG TAB PO SCH ×3 (09:00→22:02)
[2017-06-26] MEDS: DILTIAZEM HCL 30 MG TAB PO SCH ×4 (09:00→22:22)
[2017-06-26] MEDS: LEVETIRACETAM 500 MG TAB PO SCH ×2 (09:00→17:21)
[2017-06-26] MEDS ORDERED: HYDRALAZINE HCL 20 MG/ML VIAL IV PRN (09:15)
[2017-06-26] MEDS ORDERED: METOPROLOL TARTRATE INJ 1 MG/ML VIAL IV PRN (09:15)
[2017-06-26] MEDS: CARVEDILOL 12.5 MG TAB PO SCH ×2 (09:20→17:21)
[2017-06-26] MEDS: INSULIN REGULAR, HUMAN 100 UNIT/1 ML 3ML VIAL SQ SCH ×3 (11:21→21:00)
[2017-06-26] MEDS ORDERED: SODIUM CHLORIDE 0.9% 1000ML 2,000 ML IV PRN (15:30)
[2017-06-26] MEDS ORDERED: SODIUM CHLORIDE 0.9% 250ML 500 ML IV PRN (15:30)
[2017-06-26] MEDS ORDERED: MANNITOL 25% 12.5GM/50 ML VIAL IV PRN (15:30)
[2017-06-26] MEDS ORDERED: HEPARIN SOD (PORCINE) 1000 UNIT/ML SDV IV PRN (15:30)
[2017-06-26] MEDS ORDERED: ALBUMIN HUMAN 12.5GM / 50ML IV PRN (15:30)
[2017-06-26] MEDS ORDERED: MIRTAZAPINE 15 MG TAB PO SCH (21:00)
[2017-06-26] MEDS ORDERED: ZOLPIDEM TARTRATE 10 MG TAB PO SCH (21:00)
[2017-06-26] MEDS ORDERED: POLYETHYLENE GLYCOL 3350 17 GM PACK PO SCH (21:00)
[2017-06-27] VITALS: BP 124/82
[2017-06-27] MEDS ORDERED: SODIUM CHLORIDE 0.9% 250ML 250 ML ONE (02:13)
[2017-06-27] MEDS: DIPHENHYDRAMINE HCL INJ 50 MG/ML VIAL IV PRN ×3 (02:15→16:20)
[2017-06-27] MEDS: PROMETHAZINE 12.5MG/ NACL 0.9% 50 ML IV PRN ×3 (02:15→13:20)
[2017-06-27] MEDS: MORPHINE SULFATE 2 MG/ML SYR IV PRN ×3 (02:39→13:20)
[2017-06-27 05:00] VITALS: BP 128/87
[2017-06-27 06:09] LABS: BASOPHILS % 0.6 % (0.0-1.0); EOSINOPHILS # (AUTO) 0.1 (0.0-0.4); EOSINOPHILS % 2.9 % (0.0-6.0); HEMATOCRIT 35.3 % (34.2-44.1); MEAN CORPUSCULAR HGB CONC 31.2 g/dL (31-35); MEAN CORPUSCULAR VOLUME 89.8 fL (81-99); MONOCYTES # (AUTO) 0.2 (0.2-0.8); MONOCYTES % 3.1 % (4.4-11.3); NEUTROPHILS # (AUTO) 3.5 (2.1-6.9); NEUTROPHILS % 72.8 % (38.7-80.0); PLATELET COUNT 162 x10e3/uL (140-360); RED BLOOD COUNT 3.93 x10e6/uL (3.6-5.1); RED CELL DISTRIBUTION WIDTH 18.4 % (11.7-14.4)
[2017-06-27 06:56] LABS: ANION GAP 13.5 mmol/L (8-16); CALCIUM 7.7 mg/dL (8.4-10.2); CREATININE, SERUM 3.11 mg/dL (0.57-1.11); MAGNESIUM 1.8 MG/DL (1.3-2.1); PHOSPHORUS 4.3 MG/DL (2.3-4.7); POTASSIUM 3.5 mmol/L (3.5-5.1)
[2017-06-27 07:17] LABS: THYROID STIMULATING HORMONE 2.963 uIU/mL (0.350-4.940)
[2017-06-27] MEDS: INSULIN REGULAR, HUMAN 100 UNIT/1 ML 3ML VIAL SQ SCH ×3 (07:30→16:30)
[2017-06-27 07:38] VITALS: BP 137/101
[2017-06-27] MEDS: METOCLOPRAMIDE HCL 10 MG TAB PO SCH ×3 (08:32→17:16)
[2017-06-27] MEDS: PANTOPRAZOLE SODIUM 40 MG SUSPDR.PKT PO SCH ×2 (08:32→17:16)
[2017-06-27] MEDS: CARVEDILOL 12.5 MG TAB PO SCH ×2 (08:32→17:17)
[2017-06-27] MEDS: DILTIAZEM HCL 30 MG TAB PO SCH ×2 (08:32→13:19)
[2017-06-27] MEDS: SUCRALFATE 1 GM/10 ML SUSP PO SCH ×3 (08:32→17:16)
[2017-06-27] MEDS: DOCUSATE SODIUM 100 MG CAP PO SCH ×2 (08:32→17:17)
[2017-06-27] MEDS: PHENYTOIN SODIUM EXT REL 100 MG CAP PO SCH (08:33)
[2017-06-27] MEDS: LEVETIRACETAM 500 MG TAB PO SCH ×2 (08:33→17:17)
[2017-06-27] MEDS: FUROSEMIDE 40 MG TAB PO SCH ×2 (08:33→17:17)
[2017-06-27] MEDS: CLONAZEPAM 1 MG TAB PO SCH ×2 (08:33→15:33)
[2017-06-27 10:27] VITALS: BP 137/101
[2017-06-27 11:53] VITALS: BP 117/88
[2017-06-27] MEDS ORDERED: PHENERGAN SUPP25 MG RC (12:11)
[2017-06-27] MEDS ORDERED: METOCLOPRAMIDE10 MG PO (12:11)
[2017-06-27] MEDS ORDERED: PROTONIX40 MG PO (12:11)
[2017-06-27] MEDS ORDERED: ATIVAN1 MG PO (16:30)
[2017-06-27] MEDS ORDERED: AMBIEN10 MG PO (16:31)
[2017-06-27] MEDS ORDERED: MS CONTIN30 MG PO (16:32)
[2017-06-27 16:57] VITALS: BP 135/98
--- NOTE | 2017-06-27 20:55 | Discharge Summary ---
AUDIO CUTTING IN AND OUT IN MULTIPLE PORTIONS OF THE REPORT ADMISSION DIAGNOSES 1. End-stage renal disease. 2. Anemia. 3. Gastroparesis. 4. Epilepsy. 5. Congestive heart failure. 6. Hypertension. 7. Type-1 diabetes. DISCHARGE DIAGNOSES 1. End-stage renal disease. 2. Anemia. 3. Gastroparesis. 4. Epilepsy. 5. Congestive heart failure. 6. Hypertension. 7. Type-1 diabetes. 8. Ruled out myocardial infarction. HISTORY: Patient has a history of hypertension, type-1 diabetes, systolic CHF, end-stage renal disease with dialysis, neurogenic bladder, gastroparesis, dysphagia, status post PEG placement, diabetic neuropathy, epilepsy. Surgical history of cholecystectomy, pacer/AICD, and PEG placement. Patient also has a Port-A-Cath and history of gastritis and esophagitis. HOSPITAL COURSE: A 31-year-old female presents for lower extremity swelling, shortness of breath, chest tightness, nausea, vomiting, and abdominal pain that began on Saturday. She was able to eat p.o. and be peg'ed on Saturday. She said that her applied computer science professor sent her to the hospital due to fluid overload and he was concerned about her getting cardiac/heart transplant. She apparently was at the hospital 2 weeks ago [facility] and apparent antibiotics. She does not remember why. Patient shows no signs of infection during this hospitalization. She also said that when she tried to follow with the dialysis center, they told her that she no longer has a chair. When case management called the dialysis center that is not true, she has a chair and was waiting for her. She has not had dialysis for 10 days. She was given dialysis 2 days in a row per nephrology and 2 units of PRBCs. On admission, her hemoglobin was 7.7, which went up to 11 after 2 units of blood. On admission, her chest x-ray showed stable moderate enlargement of cardiac silhouette with bilateral central venous congestion and mild interstitial edema suggesting fluid overload. Patient was resumed on all of her home medicines including Reglan, , Dilantin, Lasix, Coreg, hydralazine, insulin. Patient medication she will take and to any physical she will take her Lasix, but she will always take her pain medicine . Patient says she is unable to tolerate p.o., but according to the nurse, the patient eats a lot and also, was requesting snacks. On the patient's last visit to the hospital, GI has told her to follow up with the GI doc that placed her G-tube about it if she , but she still has problems with . Again, I explained to her that our GI doctors will not touch the G-tubes, so if she is having any issues related to that, she could follow up with the original doctor, who only goes to [facility]. Once case management ensured that the dialysis was already set up, patient was discharged home. She of course tried to state reasons to not go home, but all of them were invalidated by . She was worried about infection and I explained to her that she do not have a white count or a fever. Her troponins were negative times 2. Her vital signs were stable, but remarkable. Patient says she also follows up with Dr. eDvi for anemia of chronic disease. Patient sent home and although she was very reluctant she was requesting more pain medicine upon discharge. She will follow up with primary care in 1-2 weeks and the doctor who placed her PEG tube as soon as possible. Dictated by: Wendy Brunner NP JOHN BAHENA MD Job#: [id number] CQ
== END 2017-06-27 18:25 | disposition home or self-care (01) ==
LOC: ER 17:35 → ERHOLD 19:26 → MED/SURG2 19:40
PROVIDERS: ADMIT Internal Medicine; ATTEND Internal Medicine
DX: E10.22 Type 1 diabetes mellitus with diabetic chronic kidney disease (principal); I13.2 Hypertensive heart and chronic kidney disease with heart failure and with stage 5 chronic kidney disease, or end stage renal disease; N18.6 End stage renal disease; I50.20 Unspecified systolic (congestive) heart failure; R07.89 Other chest pain; J81.0 Acute pulmonary edema; D64.9 Anemia, unspecified; K31.84 Gastroparesis; G40.909 Epilepsy, unspecified, not intractable, without status epilepticus; Z91.15 Patient's noncompliance with renal dialysis; E10.40 Type 1 diabetes mellitus with diabetic neuropathy, unspecified; R13.10 Dysphagia, unspecified; Z88.0 Allergy status to penicillin; Z88.6 Allergy status to analgesic agent; Z91.040 Latex allergy status; Z93.1 Gastrostomy status; Z99.2 Dependence on renal dialysis; Z95.810 Presence of automatic (implantable) cardiac defibrillator; Z82.49 Family history of ischemic heart disease and other diseases of the circulatory system
CPT/HCPCS: 36415 ×3; 36430; 71045; 80048; 80053; 82550; 82553; 82948 ×3; 83540; 83735; 83880 ×2; 84100; 84443; 84466; 84484 ×2; 85025 ×2; 85610; 85730; 86850; 86900; 86920; 87340; 93005; 97116; 97161; 97530; 99284; G0378 ×3; J1200 ×3; J1642; J1644; J2270 ×3; J2550 ×3; J7030; J7050 ×3; P9016; Q4081

== ENCOUNTER 2017-06-29 11:39 | Inpatient (IN) | payer OTHER ==
[~2017-06-29] VITALS: Ht 161.3 cm; Wt 68.0 kg
[~2017-06-29 11:39] MED LIST changes: +PHENERGAN SUPP25 MG RC
--- OUTSIDE RECORDS SUMMARY | 2017-06-29 11:43 | XMS REPORT | Continuity of Care Document ---
Author Author [facility] Organization [facility] Address [address] [place] [address] Phone Unavailable Care Team Providers Care Cyanide Pot Tender Name Role Phone JOHN BAHENA MD PCP Insurance Providers Guarantor Sonam Bermeo Address [address] [place] [address] Email [email or web address] Payer [place] Medicaid Policy Number [id number] Subscriber's Name Sonam Bermeo Relationship 18 Self / Same As Patient Group Number [id number] Group Name UNEMPLOYED Effective Date 16 Advance Directives Directive Response Recorded Date/Time Does the patient have an advance directive? No 06/25/17 8:30pm If yes, is advance directive on file with [facility]? No 06/25/17 8:30pm If not on file with [facility] will patient provide a copy? Yes 06/25/17 8:30pm Do you have a Directive to Physician? No 06/25/17 6:22pm Do you have a Medical Power of Black Leather Buffer? No 06/25/17 6:22pm Do you have an out of hospital Do Not Resuscitate Order? No 06/25/17 6:22pm Do you have any special needs we should be aware of? No 06/25/17 6:22pm Do you have a support person here with you today? Yes 06/25/17 6:22pm Did patient receive Notice of Privacy Practices? Yes 06/25/17 6:22pm Did patient receive patient rights and responsibilities? Yes 06/25/17 6:22pm Problems Medical Problem Onset Date Status Abdominal [...] Oral Twice A Day 30 Days 06/02 Clonazepam 1 Mg Tablet 2 Mg Oral Three Times A Day Cyclobenzaprine Hcl 10 Mg Tablet 10 Mg Oral Twice A Day 30 Days Diltiazem Hcl (Cardizem) 30 Mg Tablet 30 Mg Oral Four Times Daily 30 Days 06/02/16 Diphenhydramine Hcl (Benadryl) 25 Mg Capsule 25 Mg Oral Four Times Daily Docusate Sodium (Colace) 100 Mg Cap 100 Mg Oral As Needed for Constipation 30 Cap Docusate Sodium (Colace) 100 Mg Capsule 100 Mg Oral Twice A Day 30 Days 06/03/17 Epoetin Bharath (Epogen) 10,000 Unit/1 Ml Vial 10,000 Unit Subcutaneously Every Saturday, Saturday, And Saturday 30 Days 06/03/17 Fluticasone Propionate 1 Ea [place] 0 Ea Nasal Twice A Day 30 [...] And At Bedtime 30 Days 06/03/17 Ipratropium [place] 0.2 Mg/1 Ml Solution 2.5 Ml Nebullizer As Needed Levetiracetam (Keppra) 500 Mg Tablet 500 Mg Oral Twice A Day Lorazepam (Ativan) 1 Mg Tablet Oral Twice A Day Methocarbamol 500 Mg Tablet 500 Mg Oral Twice A Day Metoclopramide Hcl 10 Mg Tablet 10 Mg Oral Before Meals And At Bedtime 30 Days 06/27/17 Mirtazapine 15 Mg Tab 15 Mg Oral Bedtime 14 Days 04/11/17 Morphine Sulfate (Ms Contin) 30 Mg Tablet.er 30 Mg Oral Every 6 Hours as needed for Pain Morphine Sulfate (Ms Contin) 30 Mg Tablet.er Oral Twice A Day Pantoprazole Sodium (Protonix) 40 Mg Suspdr.pkt 40 Mg Oral Twice Daily Before Meals 30 Days 06/27/17 Phenytoin Sodium Extended (Dilantin) 100 Mg Capsule 100 Mg Oral Every 12 Hours Polyethylene Glycol 3350 (Miralax) 17 Gm Powd.pack 17 Gm Oral Daily 30 Days 06/03/17 Promethazine Hcl 25 Mg Tablet 50 Mg Oral Three Times A Day as needed for Nausea Promethazine Hcl (Phenergan Supp*) 25 Mg Supp 1 Supp Rectal Twice A Day as needed for Nausea 14 06/27/17 Sucralfate 1 G/10 Ml Susp 1 G Oral Before Meals And At Bedtime 30 Days 06/03/17 Urea 85.05 Gm Cr 0 Gm Topical Twice A Day 30 Days 06/03/17 Zolpidem Tartrate (Ambien) 10 Mg Tablet 10 Mg Oral Bedtime as needed for Sleep 30 Tab Zolpidem Tartrate (Ambien) 10 Mg Tablet 10 Mg Oral Bedtime as needed for Insomnia 30 Tab Past Home Medications Medication Directions [...] Mg Oral Every 7 Days Discontinued Butalb/Acetaminophen/Caffeine (Eutvxm-Wvqieizu-Yihy 50-325-40) 1 Each Tablet, Every 6 Hours Discontinued Cefuroxime Axetil (Cefuroxime) 250 Mg Tablet, 250 Mg Oral Every 12 Hours Discontinued Cefuroxime Axetil (Cefuroxime) 250 Mg Tablet, 250 Mg Oral Every 12 Hours Discontinued Cetirizine Hcl (Zyrtec) 10 Mg Capsule, 10 Mg Oral Daily Discontinued Ciprofloxacin Hcl 500 Mg Tablet, 500 Mg Oral Twice A Day Discontinued Clonazepam 1 Mg Tablet, 0.5 Mg Oral Three Times A Day 03/30/16 Discontinued Clonazepam 1 Mg Tablet, 1 Mg Oral Three Times A Day Discontinued Cyclobenzaprine Hcl (Flexeril) 5 Mg Tablet, 10 Mg Oral Twice A Day Discontinued Diazepam 10 Mg Tablet, 10 Mg Oral Twice A Day Discontinued Diclofenac Epolamine (Flector) 1 Each Adh..patch, 1 Patch Topical Every 12 Hours 06/03/17 Discontinued Dicyclomine Hcl (Bentyl) 10 Mg Capsule, [...] 250 Mcg Oral Daily Discontinued Diphenhydramine Hcl 50 Mg/1 Ml Disp.syrin, 50 Mg Intraven .before Dialysis Discontinued Diphenhydramine Hcl (Benadryl) 25 Mg Capsule, [...] Capsule, 25 Mg Oral As Needed Discontinued Diphenoxylate Hcl/Atropine (Lomotil Tablet) 1 Each Tablet, 1 Tab Oral As Needed as needed for Diarrhea Discontinued Docusate Sodium (Colace) 100 Mg Cap, [...] Mg Tablet, 325 Mg Oral Daily Discontinued Fluticasone Propionate 1 Ea [place], 1 Ea Nasal Twice A Day 06/13/16 Discontinued Furosemide (Lasix) 40 Mg Tablet, [...] Tab.er.24h, 1 Each Oral Daily Discontinued Lorazepam (Ativan) 2 Mg Tablet, 2 Mg Oral Every Two Hours Discontinued Lorazepam (Ativan*) 0.5 Mg Tablet, 0.5 [...] Oral Twice A Day Discontinued Metoclopramide Hcl 10 Mg Tablet, 10 Mg Oral Before Meals And At Bedtime 04/11 Discontinued Metoclopramide Hcl (Reglan) 10 Mg Tablet, [...] Oral Every 12 Hours as needed Discontinued Morphine Sulfate In 0.9 % Nacl (Morphine-Ns 2 Mg/Ml Syringe) 2 Mg/1 Ml Disp.syrin, 4 Mg Intraven Q3hr as needed for Pain Discontinued Neomycin/Polymyxin/Hydrocort 10 Ml Btl, 10 Ml Otic Daily as needed for Pain And Temperature 11/09/15 Discontinued [id number] 30 Mg Tabcr, 30 Mg Oral Daily [...] 10/15/15 Discontinued Pantoprazole Sodium (Protonix) 40 Mg Suspdr.pkt, 40 Mg Oral Twice A Day 01/07 Discontinued Pantoprazole Sodium (Protonix) 40 Mg Tablet.dr, 40 Mg Oral Daily Discontinued Pantoprazole Sodium (Protonix) 40 Mg Tablet.dr, 40 Mg Oral Daily Discontinued Phenytoin Sodium 100 Mg Cap, 200 Mg Oral Every 12 Hours 11/09/15 Discontinued Phenytoin Sodium Extended (Dilantin) 100 Mg Capsule, 300 Mg Oral Daily Discontinued [id number] 40 Mg Vial, 40 Mg Oral Twice A Day 08/06/14 Discontinued Promethazine Hcl (Phenergan) 25 Mg/1 Ml Ampul, 25 Mg Intraven Every 4 Hours Discontinued Promethazine Hcl 25 Mg Tablet, 25 [...] Oral Twice A Day 12/26/14 Discontinued Sucralfate 1 Gm Tablet, 1 Gm Oral Three Times A Day 04/11/17 Discontinued Sucralfate (Carafate) 1 Gm/10 Ml Oral.susp, [...] Ea Oral Every 12 Hours 06/13/16 Discontinued Temazepam (Restoril) 15 Mg Capsule, 15 Mg Oral Bedtime as needed for Insomnia 04/11/17 Discontinued Tizanidine Hcl 4 Mg Capsule, Twice [...] Age at Onset Recorded Date/Time 33 Father FH: kidney disease Not Recorded 06/25/2017 11:29pm 33 Father FH: liver disease Not Recorded 06/25/2017 11:29pm 33 Father Family history of diabetes mellitus 30's - 40 07/01/2014 1:03pm 33 Father Family history of hypertension 30's - 40 07/01/2014 1:03pm 32 Mother Family history of hypertension 40's - 50 07/01/2014 1:03pm Social History Social History Problem Response Recorded Date/Time Onset Date Status Hx Psychiatric Problems No 06/25/2017 8:30pm Not Applicable Not Applicable Hx Eating Disorder No 06/25/2017 8:30pm Not Applicable Not Applicable Hx Substance Use Disorder No 06/25/2017 8:30pm Not Applicable Not Applicable Hx Depression No 06/25/2017 8:30pm Not Applicable Not Applicable Hx Alcohol Use No 06/25/2017 8:30pm Not Applicable Not Applicable Hx Substance Use Treatment No 06/25/2017 8:30pm Not Applicable Not Applicable Hx Physical Abuse No 06/25/2017 8:30pm Not Applicable Not Applicable Smoking Status Start Date Stop Date Never Smoker Hospital Discharge Instructions No hospital discharge instruction information available. Plan of Care Discharge Date 06/27/17 6:25pm Disposition HOME, SELF-CARE Instructions/Education Provided Kidney Failure Vomiting - Adult Prescriptions See Medication Section Additional Instructions/Education F/U WITH MD WHO PLACED G-TUBE IF HAVING ANY GI ISSUES Renal diet Activity as tolerated Functional Status Query Response Date Recorded FUNCTIONAL STATUS . June 27, 2017 12:42pm Ambulation Ability Independent June 25, 2017 8:30pm Toileting Ability Independent June 27, 2017 1:53pm Allergies, Adverse Reactions, Alerts Allergen Type Severity Reaction Status Last Updated hydromorphone HCl Allergy Unknown Active 06/05/17 ketorolac tromethamine Allergy Unknown Active 06/25/17 ondansetron HCl Allergy Unknown Active 06/06/17 Penicillin Allergy Unknown Active 06/25/17 Latex Allergy Mild Active 06/25/17 Hydrocodone Allergy Unknown Active 06/25/17 Aspirin Allergy Unknown Active 06/25/17 Ibuprofen Allergy Unknown GI upset Active 06/25/17 Fentanyl Allergy Unknown Active 06/25/17 Tramadol Allergy Unknown Active 06/25/17 Clonidine Allergy Unknown Active 06/25/17 Hydromorphone Allergy Unknown Active 06/25/17 Ondansetron Allergy Unknown Active 06/25/17 Immunizations No immunization information available. Vital Signs Acute Vital Signs Vital Response Date/Time Temperature (Fahrenheit) 96.6 degrees F (97.6 - 99.5) 06/27/2017 4:57pm Pulse Pulse Rate (adult) 105 bpm (60 - 90) 06/27/2017 4:57pm Respiratory Rate 18 bpm (12 - 24) 06/27/2017 4:57pm Blood Pressure 135/98 mm Hg 06/27/2017 4:57pm Height 5 ft 3.5 in 06/25/2017 8:30pm Weight 150 lb 06/25/2017 8:30pm Body Mass Index 26.2 kg/m^2 06/25/2017 8:30pm Results Laboratory Results Test Name Result Units Flags Reference Collection Date/Time Result Date/ Time Comments Reactive Lymphocytes 1 01/24/2017 6:19am 01/24/2017 8:25am Blast Cells % 1 01/24/2017 6:19am 01/24/2017 8:25am Hepatitis B Surface Antibody, Quant 405.4 mIU/mL Immunity>9.9 2016 11:00am 01/24/2017 6:40am Status of Immunity Anti- HBs Level Inconsistent with Immunity 0.0 - 9.9 Consistent with Immunity >9.9 Hepatitis B Core Total Antibody Negative Negative 01/23/2017 11:00am 01/24/2017 6:40am Performed at: [facility] [id number] [employer] Assistant: Robles Samayoa MD, Phone: [phone] Clostridium Difficile Toxin A & B NEGATIVE NEGATIVE 01/31/2017 2:30am 01/31/2017 12:27pm Testing on stool aspirate specimens is outside casting wheel operator helper claims since specimen type not validated on [...] MG/DL 4.5-19.8 05/30/2017 8:20pm 05/30/2017 8: 47pm Ferritin 956.34 ng/mL H 4.63-204.00 06/01/2017 6:00am 06/01/2017 7:27am Phenytoin (Dilantin) Level 3.99 ug/mL L 10-20 [...] with a HCV Nucleic Acid Amplification test ([id number]). [facility] [address] [place] [address] Dir: Robles Samayoa MD For inquiries, the physician may contact Branch: [phone] Lab: [phone] Urine Color RED H YELLOW 06/06/2017 5:15pm 06/06/2017 6:50pm Urine Clarity HAZY CLEAR 06/06/2017 5:15pm 06/06/2017 6:50pm Urine Specific [place] 1.015 1.010-1.025 06/06/2017 5:15pm 2017 6:50pm Urine [...] NEGATIVE NEGATIVE 06/06/2017 5:15pm 06/06/2017 7 :22pm Amylase Level 69 U/L 25-125 06/06/2017 11:30pm 06/06/2017 11:53pm Lipase 34 U/L 8-78 06/06/2017 11:30pm 06/07/2017 12:01am Phospholipids Level 225 06/06/2017 11:30pm 06/12/2017 12:42pm Reference Range:150 - 250 mg/dL Results for this test are for research purposes only by the assay's casting wheel operator helper. The performance characteristics of this product have not been established. Results should not be used as a diagnostic procedure without confirmation of the diagnosis by another medically established diagnostic product or procedure. Testing performed by: [address] [address] Dir. Santana Salmeron MD Stool Occult Blood POSITIVE H NEGATIVE 06/06/2017 11:30pm 06/06/2017 11:41pm White Blood Count 4.79 x10e3/uL L 4.8-10.8 06/27/2017 5:00am 06/27/2017 6:22am Red Blood Count 3.93 x10e6/uL 3.6-5.1 06/27/2017 5:00am 06/27/2017 6: 22am Hemoglobin 11.0 g/dL L 12.0-16.0 06/27/2017 5:00am 06/27/2017 6:22am Hematocrit 35.3 % 34.2-44.1 06/27/2017 5:00am 06/27/2017 6:22am Mean Corpuscular Volume 89.8 fL 81-99 06/27/2017 5:00am 06/27/2017 6: 22am Mean Corpuscular Hemoglobin 28.0 pg 28-32 06/27/2017 5:00am 06/27/2017 6:22am Mean Corpuscular Hemoglobin Concent 31.2 g/dL 31-35 06/27/2017 5:00am 06/27/2017 6:22am Red Cell Distribution Width 18.4 % H 11.7-14.4 06/27/2017 5:00am 2017 6:22am Platelet Count 162 x10e3/uL 140-360 06/27/2017 5:00am 06/27/2017 6: 22am Neutrophils (%) (Auto) 72.8 % 38.7-80.0 06/27/2017 5:00am 06/27/2017 6: 22am Lymphocytes (%) (Auto) 20.0 % 18.0-39.1 06/27/2017 5:00am 06/27/2017 6: 22am Monocytes (%) (Auto) 3.1 % L 4.4-11.3 06/27/2017 5:00am 06/27/2017 6: 22am Eosinophils (%) (Auto) 2.9 % 0.0-6.0 06/27/2017 5:00am 06/27/2017 6: 22am Basophils (%) (Auto) 0.6 % 0.0-1.0 06/27/2017 5:00am 06/27/2017 6:22am IM GRANULOCYTES % 0.6 % 0.0-1.0 06/27/2017 5:00am 06/27/2017 6:22am Neutrophils # (Auto) 3.5 2.1-6.9 06/27/2017 5:00am 06/27/2017 6:22am Lymphocytes # (Auto) 1.0 1.0-3.2 06/27/2017 5:00am 06/27/2017 6:22am Monocytes # (Auto) 0.2 0.2-0.8 06/27/2017 5:00am 06/27/2017 6:22am Eosinophils # (Auto) 0.1 0.0-0.4 06/27/2017 5:00am 06/27/2017 6:22am Basophils # (Auto) 0.0 0.0-0.1 06/27/2017 5:0006/27/2017 6:22am Absolute Immature Granulocyte (auto 0.03 x10e3/uL 0-0.1 06/27/2017 5: 00am 06/27/2017 6:22am Prothrombin Time 20.3 seconds H 11.9-14.5 06/25/2017 6:25pm 06/25/2017 6 :46pm Prothromb Time International Ratio 1.88 06/25/2017 6:25pm 2017 6:46pm Oral Anticoagulant Therapy INR Values: 1. Low Intensity Therapy 1.5 - 2.0 2. Moderate Intensity Therapy 2.0 - 3.0 3. High Intensity Therapy(1) 2.5 - 3.5 4. High Intensity Therapy(2) 3.0 - 4.0 5. Panic Value INR > 5.0 Activated Partial Thromboplast Time 68.6 seconds H 23.8-35.5 06/25/2017 6 :25pm 06/25/2017 6:47pm Sodium Level 141 mmol/L 136-145 06/27/2017 5:00am 06/27/2017 7:00am Potassium Level 3.5 mmol/L # 3.5-5.1 06/27/2017 5:00am 06/27/2017 7:00am Chloride Level 105 mmol/L 98-107 06/27/2017 5:00am 06/27/2017 7:00am Carbon Dioxide Level 26 mmol/L 22-29 06/27/2017 5:00am 06/27/2017 7: 00am Anion Gap 13.5 mmol/L 8-16 06/27/2017 5:00am 06/27/2017 7:00am Blood Urea Nitrogen 21 mg/dL 7-06/27/2017 5:00am 06/27/2017 7:00am Creatinine 3.11 mg/dL H 0.57-1.11 06/27/2017 5:00am 06/27/2017 7:00am BUN/Creatinine Ratio 7 6-25 06/27/2017 5:00am 06/27/2017 7:00am Estimat Glomerular Filtration Rate 21 ML/MIN L 60- 06/27/2017 5:00am 7:00am Ranges were taken from the National Kidney Disease Education Program and the National Kidney Foundation literature. Reference ranges: 60 or greater: Normal 16-59 (for 3 consecutive months): Chronic kidney disease 15 or less: Kidney failure Glucose Level 283 mg/dL H 74-118 06/27/2017 5:00am 06/27/2017 7:00am Calcium Level 7.7 mg/dL L 8.4-10.2 06/27/2017 5:00am 06/27/2017 7:00am Bedside Glucose 313 mg/dL H 70-120 06/27/2017 3:46pm 06/27/2017 4:17pm Meter ID: [id number] Phosphorus Level 4.3 MG/DL 2.3-4.7 06/27/2017 5:00am 06/27/2017 7:00am Magnesium Level 1.8 MG/DL 1.3-2.1 06/27/2017 5:00am 06/27/2017 7:00am Iron Level 111 ug/dL 50-170 06/27/2017 5:00am 06/27/2017 7:00am Total Iron Binding Capacity 179 ug/dL L 261-478 06/27/2017 5:00am 2017 7:00am Percent Iron Saturation 62 % H 15-50 06/27/2017 5:00am 06/27/2017 7: 00am Transferrin 128 mg/dL L 180-382 06/27/2017 5:00am 06/27/2017 7:00am Total Bilirubin 0.4 mg/dL 0.2-1.2 06/25/2017 6:25pm 06/25/2017 6:53pm Aspartate Amino Transf (AST/SGOT) 9 IU/L 5-34 06/25/2017 6:25pm 2017 6:53pm Alanine Aminotransferase (ALT/SGPT) 9 IU/L 0-55 06/25/2017 6:25pm 06/25 6:53pm Total Protein 7.0 g/dL 6.5-8.1 06/25/2017 6:25pm 06/25/2017 6:53pm Albumin 2.8 g/dL L 3.5-5.0 06/25/2017 6:25pm 06/25/2017 6:53pm Globulin 4.2 g/dL H 2.3-3.5 06/25/2017 6:25pm 06/25/2017 6:53pm Albumin/Globulin Ratio 0.7 L 0.8-2.0 06/25/2017 6:25pm 06/25/2017 6: 53pm Alkaline Phosphatase 160 IU/L H 40-150 06/25/2017 6:25pm 06/25/2017 6: 53pm B-Type Natriuretic Peptide 2729.8 pg/mL H 0-100 06/27/2017 5:00am 2017 6:52am Creatine Kinase 156 IU/L 29-168 06/25/2017 6:25pm 06/25/2017 6:53pm Creatine Kinase MB 3.80 ng/mL 0-5.0 06/25/2017 6:25pm 06/25/2017 7: 01pm Troponin I 0.001 ng/mL 0-0.300 06/27/2017 5:00am 06/27/2017 7:18am Thyroid Stimulating Hormone (TSH) 2.963 uIU/mL 0.350-4.940 06/27/2017 5: 00am 06/27/2017 7:18am Microbiology Results Procedure Source Organism/Result Collection Date/Time [...] APPROACH Completed 04/01/17 GILBERTO HENSLEY MD, JORGE DPM DILATION OF STOMACH, PYLORUS, ENDO Completed 04/01/17 GILBERTO HENSLEY MD, JORGE DPM EXCISION OF STOMACH, ENDO, DIAGN Completed 04/01/17 GILBERTO HENSLEY MD, JORGE DPM TRANSFUSE NONAUT RED BLOOD CELLS IN PERIPH VEIN, PERC Completed 04/06/17 MODE SIFUENTES MD PERFORMANCE OF URINARY FILTRATION, <6 HRS/DAY Completed 04/05/17 LIVAN AVENDAÑO INSERTION OF INFUSION DEV INTO SUP VENA CAVA, PERC APPROACH Completed HANK SALMERON MD, SALMAN FLUOROSCOPY OF OTHER VEINS USING LOW OSMOLAR CONTRAST Completed 05/31/17 HANK SALMERON MD, SALMAN REMOVAL OF INFUSION DEVICE FROM UPPER VEIN, CAMERA MAKER APPROACH Completed HANK SALMERON MD, SALMAN INSERT OF TUNNEL VAD INTO CHEST SUBCU/FASCIA, PERC APPROACH Completed HANK SALMERON MD, SALMAN PERFORMANCE OF URINARY FILTRATION, <6 HRS/DAY Completed 05/31/17 HANK SALMERON MD, SALMAN TRANSFUSE NONAUT RED BLOOD CELLS IN PERIPH VEIN, PERC Completed 06/03/17 UVALDO TERRY NP, SALMAN PERFORMANCE OF URINARY FILTRATION, <6 HRS/DAY Completed 06/03/17 UVALDO TERRY NP, SALMAN Ultrasound guidance for vascular access Active 12/16/16 SAM BLACK MD MRI joint upr extrem w/o dye Active 01/30/[address] of abdomen and pelvis [...] without radiopaque contrast Active 02/13/17 MAGNO MORFIN WATERWORKS CHIEF ENGINEER Computed tomography of cervical spine without contrast Active 02/13/17 MAGNO MORFIN L WATERWORKS CHIEF ENGINEER CT of abdomen and pelvis without contrast Active 02/13/17 MAGNO MORFIN L [employer] CHIEF ENGINEER Computed tomography of brain without radiopaque contrast Active 04/04/17 UVALDO TERRY [employer]WOR[employer] CHIEF ENGINEER US abdomen complete Active 04/05/17 UVALDO TERRY [employer]WOR[employer] CHIEF ENGINEER X-ray of chest, single view Active 04/16/[address] of abdomen and pelvis without contrast Active 04/17/17 AMELIA COPPOLA X-ray of chest, single view Active 05/30/17 NICHELLE AMAYA WATERWORKS CHIEF ENGINEER CT of abdomen and pelvis without contrast Active 06/05/17 RY DRAPER MD Encounters Encounter Location Arrival/Admit Date Discharge/Depart Date Attending Provider Discharged Inpatient (obs) [facility] 06/25/17 7:26pm 6:25pm JOHN BAHENA MD Departed Emergency Room [facility] 06/06/17 1:25pm 4:10am MIREILLE AMOR MD Departed Emergency Room [facility] 06/05/17 10:35am 06/05 5:53pm RY DRAPER MD Discharged Inpatient [facility] 05/30/17 9:24pm 06/03/17 6:37pm JOHN BAHENA MD Departed Emergency Room [facility] 04/16/17 1:31pm 3:00am MIREILLE AMOR MD Departed Emergency Room [facility] 04/14/17 12:59pm 04/14 3:33pm CHAD ENAMORADO MD Discharged Inpatient [facility] 04/05/17 11:05am 6:03pm JOHN BAHENA MD Departed Emergency Room [facility] 02/19/17 3:59am 4:23pm SAM BLACK MD Departed Emergency [facility] 02/13/17 5:05pm 12:06am MIREILLE AMOR MD Discharged Inpatient [facility] 01/23/17 4:02am 02/11/17 4:47pm JOHN BAHENA MD Discharged Inpatient [facility] 01/02/17 12:31am 5:19pm JOHN BAHENA MD Discharged Inpatient [facility] 12/16/16 6:45pm 12/20/16 6:47pm JOHN BAHENA MD
[2017-06-29] MEDS ORDERED: SODIUM CHLORIDE 0.9% 250ML 250 ML IV STA (12:02)
[2017-06-29] MEDS ORDERED: MORPHINE SULFATE 2 MG/ML SYR IV SCH (12:02)
[2017-06-29] MEDS ORDERED: PROMETHAZINE 12.5MG/ NACL 0.9% 12.5 MG/50 ML BAG IV SCH (12:15)
--- NOTE | 2017-06-29 13:18 | Diagnostic Imaging Report ---
EXAMINATION: CHEST SINGLE (PORTABLE) INDICATION: Vomiting. Tightness. COMPARISON: Chest x-ray 06/07/2017 FINDINGS: AP view TUBES and LINES: Right-sided dialysis catheter with tip in the right atrium. Left-sided portacatheter with tip at low SVC. A left-sided single lead defibrillator LUNGS: Lungs are not well inflated. Worsening diffuse airspace opacities consistent pulmonary edema. PLEURA: No pleural effusion or pneumothorax. HEART AND MEDIASTINUM: The cardiomediastinal silhouette is unremarkable. BONES AND SOFT TISSUES: No acute osseous lesion. Soft tissues are unremarkable. UPPER ABDOMEN: No free air under the diaphragm. IMPRESSION: Worsening pulmonary edema. Signed by: Dr. Brandon Orellana M.D. on 06/29/2017 1:15 PM
[2017-06-29] MEDS ORDERED: DIPHENHYDRAMINE HCL INJ 50 MG/ML VIAL IV SCH (13:30)
[2017-06-29 13:32] LABS: BASOPHILS % 0.3 % (0.0-1.0); EOSINOPHILS # (AUTO) 0.2 (0.0-0.4); EOSINOPHILS % 3.1 % (0.0-6.0); HEMATOCRIT 31.3 % (34.2-44.1); HEMOGLOBIN 9.5 g/dL (12.0-16.0); LYMPHOCYTES # (AUTO) 1.3 (1.0-3.2); LYMPHOCYTES % 21.2 % (18.0-39.1); MEAN CORPUSCULAR HEMOGLOBIN 28.4 pg (28-32); MEAN CORPUSCULAR HGB CONC 30.4 g/dL (31-35); MEAN CORPUSCULAR VOLUME 93.7 fL (81-99); MONOCYTES # (AUTO) 0.2 (0.2-0.8); MONOCYTES % 3.9 % (4.4-11.3); NEUTROPHILS # (AUTO) 4.3 (2.1-6.9); PLATELET COUNT 147 x10e3/uL (140-360); RED BLOOD COUNT 3.34 x10e6/uL (3.6-5.1); RED CELL DISTRIBUTION WIDTH 18.5 % (11.7-14.4)
[2017-06-29 13:45] LABS: INR 1.52; PROTHROMBIN TIME 17.2 seconds (11.9-14.5)
[2017-06-29 13:53] LABS: ALANINE AMINOTRANSFERASE 11 IU/L (0-55); ALBUMIN 2.6 g/dL (3.5-5.0); ALBUMIN/GLOBULIN RATIO 0.6 (0.8-2.0); ALKALINE PHOSPHATASE 141 IU/L (40-150); BLOOD UREA NITROGEN 23 mg/dL (7-26); BUN/CREATININE RATIO 7 (6-25); CALCIUM 8.2 mg/dL (8.4-10.2); CARBON DIOXIDE 23 mmol/L (22-29); CHLORIDE 102 mmol/L (98-107); CREATININE, SERUM 3.52 mg/dL (0.57-1.11); EST GLOMERULAR FILTRATION RATE 19 ML/MIN (60-); GLUCOSE 205 mg/dL (74-118); SODIUM 133 mmol/L (136-145)
[2017-06-29 14:07] LABS: CREATINE KINASE 165 IU/L (29-168)
--- NOTE | 2017-06-29 14:38 | Consultation ---
DATE OF CONSULTATION: June 29, 2017 RENAL CONSULTATION LOCATION: Emergency room. HISTORY OF PRESENT ILLNESS: A 31-year-old female who is frequently gets admitted. This time presented again with nausea and vomiting. States she never got better after she went home. She also missed her dialysis. She is a high-risk dialysis patient. Very noncompliant. Misses her dialysis. Appears fluid overloaded with evidence of facial, lower extremity and upper extremity edema. She is mildly short of breath. She is also complaining of nausea. No hematemesis or melena noted. Chemistries show sodium 141, potassium 3.5. This was done on the . Labs were drawn just now, and they are pending. Had a chest x-ray done on the . Shows evidence of Port-A-Cath, cardiomegaly, bilateral infiltrates suggestive of congestive heart failure. SHE HAS GOT MULTIPLE ALLERGIES TO PENICILLIN, ASPIRIN, CLONIDINE, FENTANYL, HYDROCODONE, HYDROMORPHONE, KETOROLAC, ONDANSETRON, TRAMADOL. HOME MEDICATIONS: Have not been reconciled yet. SOCIAL HISTORY: Patient has got a very supportive mother who is by bedside. PHYSICAL EXAMINATION: GENERAL: Currently awake, alert, no apparent respiratory distress. VITALS: Blood pressure 137/98, oxygen saturation 99% on 2 liters nasal cannula, pulse rate 120. HEAD AND NECK: Cornea clear. Oral mucosa dry. Neck veins distended. LUNGS: Bibasilar rales. HEART: S1 and S2 audible. No rubs or gallop. ABDOMEN: Otherwise soft, nontender. LOWER EXTREMITY EXAMINATION: 2+ edema. IMPRESSION: 1. Evidence of congestive heart failure. 2. Fluid overload. 3. End-stage renal disease. Laboratory tests pending. Today is her dialysis day. Admitted with nausea, vomiting. Defer workup of nausea and vomiting to primary. I will arrange for dialysis. He will address her fluid removal and blood pressure control. Please see orders. Job#: [id number] EV
[2017-06-29] MEDS ORDERED: PANTOPRAZOLE 40 MG 10ML VIAL IV STA (14:54)
[2017-06-29] MEDS ORDERED: DEXTROSE 50% SYRINGE 50 ML IV PRN (15:00)
[2017-06-29 15:05] LABS: BILIRUBIN,URINE NEGATIVE (NEGATIVE); KETONES,URINE NEGATIVE (NEGATIVE); LEUKOCYTE ESTERASE ,URINE 2+ (NEGATIVE); NITRITE,URINE NEGATIVE (NEGATIVE); PROTEIN,URINE DIPSTICK 3+ (NEGATIVE); URINE UROBILINOGEN 0.2 mg/dL (0.2 - 1)
[2017-06-29 15:06] LABS: CLARITY,URINE HAZY (CLEAR); COLOR,URINE YELLOW (YELLOW)
--- NOTE | 2017-06-29 15:21 | Diagnostic Imaging Report ---
EXAM: CT Abdomen and Pelvis WITHOUT contrast INDICATION: \S\STONE PROTOCOL . Vomiting tightness. COMPARISON: CT abdomen and pelvis 06/05/2017 TECHNIQUE: Abdomen and pelvis were scanned utilizing a multidetector helical scanner from the lung base to the pubic symphysis without administration of IV contrast. Absence of intravenous contrast decreases sensitivity for detection of focal lesions and vascular pathology. Coronal and sagittal reformations were obtained. Stone protocol is performed. IV CONTRAST: None ORAL CONTRAST: Water COMPLICATIONS: None RADIATION DOSE: Total DLP: 310.49 mGy*cm Estimated effective dose: (DLP x 0.015 x size factor) mSv CTDIvol has been reviewed. It is below the limits set by the Radiation Protocol Committee (RPC). FINDINGS: LINES and TUBES: Gastrojejunostomy tube with tip in the jejunum. Stomach is decompressed. LOWER THORAX: Diffuse groundglass opacities and interlobular septal thickening and mild indeterminate groundglass opacities, consistent pulmonary edema with possible superimposed infection. Tiny bilateral pleural effusions. HEPATOBILIARY: No focal hepatic lesions. No biliary ductal dilation. GALLBLADDER: There are cholecystectomy clips. SPLEEN: Mild splenomegaly measuring 13.2 cm in AP dimension. PANCREAS: No focal masses or ductal dilatation. ADRENALS: No adrenal nodules KIDNEYS/URETERS: No hydronephrosis. No cystic or solid mass lesions. No stones. GI TRACT: No abnormal distention, wall thickening, or evidence of bowel obstruction. Appendix is normal. PELVIC ORGANS/BLADDER: Uterus is unremarkable. Ovaries are not visualized. Periuterine vascular calcifications. Bladder is unremarkable. LYMPH NODES: No lymphadenopathy. VESSELS: Unremarkable. PERITONEUM / RETROPERITONEUM: Small amount of ascites. BONES: Unremarkable. SOFT TISSUES: Unremarkable. IMPRESSION: 1. Gastrojejunostomy tube in place. 2. No bowel obstruction. 3. Small ascites. 4. Pulmonary edema. There are more focal patchy opacities which suggest possible superimposed infection. Signed by: Dr. Brandon Orellana M.D. on 06/29/2017 3:17 PM
[2017-06-29 15:30] LABS: BACTERIA,URINE MODERATE /HPF; EPITHELIAL CELLS,URINE MODERATE /LPF; MUCUS,URINE MODERATE (RARE); RBC,URINE 21-50 /HPF (0-5); WBC,URINE (MAN) >50 /HPF (0-5)
[2017-06-29] MEDS ORDERED: LEVOFLOXACIN 500MG/D5W 100ML 100 ML IV SCH (15:30)
[2017-06-29] MEDS ORDERED: LORAZEPAM INJ 2 MG/ML VIAL IV SCH (16:00)
[2017-06-29] MEDS ORDERED: LORAZEPAM INJ 2 MG/ML VIAL IV ONE (16:00)
[2017-06-29 16:01] LABS: PARTIAL THROMBOPLASTIN TIME 39.4 seconds (23.8-35.5)
[2017-06-29] MEDS: INSULIN REGULAR, HUMAN 100 UNIT/1 ML 3ML VIAL SQ SCH ×2 (16:30→21:00)
[2017-06-29] MEDS ORDERED: CEFTRIAXONE SOD 1 GM VIAL IM SCH (17:30)
[2017-06-29] MEDS ORDERED: CEFTRIAXONE SOD 1 GM VIAL IV SCH (18:30)
[2017-06-29] MEDS ORDERED: PANTOPRAZOLE 40 MG 10ML VIAL IV SCH (19:00)
[2017-06-29] MEDS: MORPHINE SULFATE 2 MG/ML SYR IV PRN (20:28)
[2017-06-29] MEDS ORDERED: DIPHENHYDRAMINE HCL INJ 50 MG/ML VIAL IV ONE (20:30)
[2017-06-29] MEDS ORDERED: HEPARIN SOD (PORCINE) 1000 UNIT/ML SDV IV ONE (21:45)
[2017-06-30 00:03] VITALS: BP 146/103
[2017-06-30] MEDS ORDERED: SODIUM CHLORIDE 0.9% 250ML 250 ML ONE (01:09)
[2017-06-30 01:25] VITALS: BP 146/103
[2017-06-30] MEDS: PROMETHAZINE 12.5MG/ NACL 0.9% 12.5 MG/50 ML BAG IV PRN ×2 (01:40→10:21)
[2017-06-30] MEDS: MORPHINE SULFATE 2 MG/ML SYR IV PRN ×3 (01:40→10:21)
[2017-06-30] MEDS: DIPHENHYDRAMINE HCL INJ 50 MG/ML VIAL IV PRN ×2 (01:40→06:00)
[2017-06-30 04:25] VITALS: BP 132/93
[2017-06-30 06:02] LABS: BASOPHILS % 0.6 % (0.0-1.0); EOSINOPHILS # (AUTO) 0.2 (0.0-0.4); EOSINOPHILS % 2.3 % (0.0-6.0); HEMATOCRIT 32.4 % (34.2-44.1); LYMPHOCYTES # (AUTO) 1.5 (1.0-3.2); LYMPHOCYTES % 22.6 % (18.0-39.1); MEAN CORPUSCULAR HGB CONC 30.9 g/dL (31-35); MEAN CORPUSCULAR VOLUME 90.8 fL (81-99); MONOCYTES # (AUTO) 0.2 (0.2-0.8); MONOCYTES % 2.6 % (4.4-11.3); NEUTROPHILS # (AUTO) 4.6 (2.1-6.9); NEUTROPHILS % 71.6 % (38.7-80.0); PLATELET COUNT 128 x10e3/uL (140-360); RED BLOOD COUNT 3.57 x10e6/uL (3.6-5.1); RED CELL DISTRIBUTION WIDTH 17.9 % (11.7-14.4)
[2017-06-30 06:19] LABS: ALBUMIN 2.5 g/dL (3.5-5.0); ALBUMIN/GLOBULIN RATIO 0.6 (0.8-2.0); ANION GAP 12.8 mmol/L (8-16); CALCIUM 8.4 mg/dL (8.4-10.2); CREATININE, SERUM 2.23 mg/dL (0.57-1.11); POTASSIUM 3.8 mmol/L (3.5-5.1)
[2017-06-30] MEDS: INSULIN REGULAR, HUMAN 100 UNIT/1 ML 3ML VIAL SQ SCH ×2 (07:30→11:30)
[2017-06-30 07:46] LABS: CREATINE KINASE MB 2.3 ng/mL (0-5.0)
[2017-06-30 08:00] VITALS: BP 128/88
[2017-06-30 12:00] VITALS: BP 132/90
[2017-06-30] MEDS ORDERED: CEFTIN PO (12:45)
[2017-06-30] MEDS ORDERED: CARVEDILOL 12.5 MG TAB PO SCH (12:45)
[2017-06-30] MEDS ORDERED: DIFLUCAN150 MG PO (12:50)
--- NOTE | 2017-06-30 14:40 | Diagnostic Imaging Report ---
EXAM: Complete Abdominal Ultrasound INDICATION: \S\abd pain \S\[id number] \[id number] COMPARISON: CT dated 06/29/2017 TECHNIQUE: Transverse and longitudinal images of the upper abdomen were obtained. FINDINGS: Limited exam due to mid abdominal bandage. Liver: Size: 18.6 cm in the right midclavicular line, enlarged Appearance: Normal echogenicity, smooth contour Mass: No focal masses Spleen: Size: 12.3 cm in length, normal Echogenicity: Normal Mass: No focal masses Gallbladder: Surgically absent. Bile Ducts: Intrahepatic Ducts: No dilatation Extrahepatic Ducts: Common bile duct measures 0.5 cm, no dilatation Pancreas: Limited visualization. Right Kidney: Size: 10.3 cm Echogenicity: Normal Parenchymal thickness: Normal Collecting System: No hydronephrosis Stone: None Cyst/Mass: None Left Kidney: Size: 10.1 cm Echogenicity: Normal Parenchymal thickness: Normal Collecting System: No hydronephrosis Stone: None Cyst/Mass: None Vessels: Aorta: Distal aorta cannot be imaged due to overlying bandage. Inferior Vena Cava: Visualized portions are normal Main Portal Vein: 0.9 cm, normal size with hepatopetal flow. Free Fluid: Trace perihepatic ascites. IMPRESSION: Limited as above. Hepatosplenomegaly. Trace perihepatic ascites. Cholecystectomy. Signed by: Dr. Ehsan Mccann MD on 06/30/2017 2:36 PM
--- NOTE | 2017-07-01 16:43 | Discharge Summary ---
ADMISSION DIAGNOSES: 1. Fluid overload. 2. Abdominal pain. 3. Chest tightness. 4. Type 1 diabetes. 5. Dysuria. 6. Vaginal itching. 7. Epilepsy. 8. Gastroparesis with nausea and vomiting. DISCHARGE DIAGNOSES: 1. Fluid overload. 2. Abdominal pain. 3. Chest tightness. 4. Type 1 diabetes. 5. Dysuria. 6. Vaginal itching. 7. Epilepsy. 8. Gastroparesis with nausea and vomiting. 9. Ruled out myocardial infarction. 10. Urinary tract infection. 11. Ruled out gallstones pancreatitis. HISTORY: Patient has a history of hypertension, type 1 diabetes, systolic CHF, end-stage renal disease with dialysis, neurogenic bladder, gastroparesis, dysphagia status post PEG, diabetic neuropathy, epilepsy, gastritis, esophagitis, and anemia. Surgical history of PEG, pacer/AICD, and cholecystectomy. HOSPITAL COURSE: A 31-year-old female said she went for dialysis on Saturday, but she developed nausea, vomiting, shortness of breath, and chest tightness. She skipped dialysis and came to the ER. This patient was just discharged 2 days ago for the same reasons. She claimed her dialysis chair was not setup, but case management proved the patient wrong, so this would have been her first Saturday at this dialysis center, but she did not go. So upon admission, patient was given dialysis where they pulled off 3.4 liters in the ER. Again, the patient said she is not tolerating p.o., but the nurse said she is eating plenty including Jell-O and pudding and crackers. She still complains of chest tightness, but troponins are negative x2. On admission, her chest x-ray showed pulmonary edema; CT of the abdomen showed G-tube in place, no obstruction, small ascites, pulmonary edema. Urine culture was done, but was still pending at time of discharge. The UA showed leukocytes, RBC, WBC, moderate bacteria, and mucus. Patient was afebrile and WBCs were within normal limits. Patient was again instructed to follow up with the doctor that placed the GI tube at [facility]. She did not follow instructions and still came back to [facility]. Again, I informed her that Dr. Barrios said he cannot touch the G-tube, because he is not the one that placed it. Patient was given 1 dose of IV Rocephin and then sent home with p.o. Ceftin and Diflucan pending urinary cultures. Patient's family then said that last time when she was discharged 2 days ago that the meds I prescribed for her were not being filled for some insurance reason, the only meds that I gave her were Protonix and sucralfate which she was already getting, but I just gave her a new prescription so that she would not have any reasons to not take it. So, I asked her what pharmacy she uses and I called that pharmacy directly. They said the only medications that this patient picks up are narcotics. I asked them to check other [employer] stores and again they said that the only thing she picks up from any [employer] store is narcotics and the only medication that is is Ambien. I asked about blood pressure meds, renal meds, epilepsy meds, gastritis and esophagitis meds, they said no, she does not case picker any of that. So patient was sent home the same day that she was discharged after having dialysis. All of her complaints are not backed by clinical data. I explained that to her that following up with dialysis would mean she would not need to be admitted to the hospital again and even if she is having UTI symptoms that is not a hospitalization diagnosis. I also explained to her that when she self caths, she is probably giving herself UTI. On a previous admission, she kept telling us that she felt like she needed to pee, but could not pee and every time we bladder scanned her on multiple occasions, there was less than 30 mL in her bladder. I explained to her that dialysis is taking away most of her fluids so there is really no reason for her to make urine even though she feels like she needs to pee. I told her even if she is trying to be sterile, she is probably not doing it sterile enough, therefore re-infecting herself. Per the patient's mom and patient, they said that she is on the kidney and heart transplant list and they keep telling her that she cannot have any infection. I told her that either she needs to go to them and they can run whatever tests that they need to run or go to [facility] for the GI doctor. She continues to ask for more and more workups, but I explained to her that we have already done the workup for almost everything. 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 Everything is coming up negative that she complains of, so I explained to her she needed to be sent home and follow up with primary care as needed. Dictated by Wendy Brunner NP JOHN BAHENA MD Job#: [id number]
== END 2017-06-30 16:18 | disposition home or self-care (01) | DRG 640 ==
LOC: ER 11:39 → ERHOLD 14:54 → MED/SURG 20:03
PROVIDERS: ADMIT Internal Medicine; ATTEND Internal Medicine
PROC: 5A1D70Z Performance of Urinary Filtration, Intermittent, Less than 6 Hours Per Day (ICD-10-PCS; principal; 2017-06-29)
DX: E87.70 Fluid overload, unspecified (principal); N18.6 End stage renal disease; I13.2 Hypertensive heart and chronic kidney disease with heart failure and with stage 5 chronic kidney disease, or end stage renal disease; R18.8 Other ascites; I50.22 Chronic systolic (congestive) heart failure; N39.0 Urinary tract infection, site not specified; E10.22 Type 1 diabetes mellitus with diabetic chronic kidney disease; K31.84 Gastroparesis; E10.40 Type 1 diabetes mellitus with diabetic neuropathy, unspecified; I48.91 Unspecified atrial fibrillation; Z91.15 Patient's noncompliance with renal dialysis; Z99.2 Dependence on renal dialysis; Z79.4 Long term (current) use of insulin; E10.43 Type 1 diabetes mellitus with diabetic autonomic (poly)neuropathy; R13.10 Dysphagia, unspecified; Z93.1 Gastrostomy status; G40.909 Epilepsy, unspecified, not intractable, without status epilepticus; K29.70 Gastritis, unspecified, without bleeding; K20.9 Esophagitis, unspecified; D64.9 Anemia, unspecified; Z95.810 Presence of automatic (implantable) cardiac defibrillator; L29.2 Pruritus vulvae; R10.9 Unspecified abdominal pain; R07.9 Chest pain, unspecified; N31.9 Neuromuscular dysfunction of bladder, unspecified; Z79.891 Long term (current) use of opiate analgesic; Z91.040 Latex allergy status; Z88.5 Allergy status to narcotic agent; Z88.0 Allergy status to penicillin; Z88.8 Allergy status to other drugs, medicaments and biological substances; Z91.048 Other nonmedicinal substance allergy status
CPT/HCPCS: 36415; 71045; 74176; 76700; 80053; 81001; 82550; 82553; 82948; 83605; 84484; 84702; 85025; 85610; 85730; 87040; 87086; 87350; 93005; 99284; J0696; J1200; J1642; J1644; J2060; J2270; J2550; J7050

== ENCOUNTER 2017-07-02 13:20 | Inpatient (IN) | payer OTHER ==
[~2017-07-02] VITALS: Ht 160 cm; Wt 68.0 kg
[~2017-07-02 13:20] MED LIST changes: +CEFTIN PO; +DIFLUCAN150 MG PO
--- OUTSIDE RECORDS SUMMARY | 2017-07-02 13:26 | XMS REPORT | Continuity of Care Document ---
Author Author [facility] Organization [facility] Address [address] [place] [address] Phone Unavailable Care Team Providers Care Front Man Name Role Phone JOHN BAHENA MD PCP Insurance Providers Guarantor Sonam Bermeo Address [address] [place] [address] Email [email or web address] Payer [place] Medicaid Policy Number [id number] Subscriber's Name Snoam Bermeo Relationship 18 Self / Same As Patient Group Number [id number] Group Name UNEMPLOYED Effective Date 16 Advance Directives Directive Response Recorded Date/Time Does the patient have an advance directive? No 06/30/17 12:52am If yes, is advance directive on file with [facility]? No 06/30/17 12:52am If not on file with [facility] will patient provide a copy? No 06/30/17 12:52am Do you have a Directive to Physician? No 06/29/17 1:25pm Do you have a Medical Power of [employer]? No 06/29/17 1:25pm Do you have an out of hospital Do Not Resuscitate Order? No 06/29/17 1:25pm Do you have any special needs we should be aware of? No 06/29/17 1:25pm Do you have a support person here with you today? Yes 06/29/17 1:25pm Did patient receive Notice of Privacy Practices? Yes 06/29/17 1:25pm Did patient receive patient rights and responsibilities? Yes 06/29/17 1:25pm Problems Medical Problem Onset Date Status Abdominal pain 09/05/2015 Acute Acute renal failure (ARF) 07/30/2014 Acute Anemia 02/26/2015 Acute Anemia 09/29/2015 Acute Anemia, chronic renal failure Unknown Chest pain Unknown Acute Cystitis 07/01/2014 Acute Dehydration 07/30/2014 Acute Diabetes 07/01/2014 Acute Dysuria Unknown ESRD (end stage renal disease) Unknown Acute [...] Oral Twice A Day 30 Days 06/02 Ceftin 500 Mg Oral Daily 6 Days 06/30/17 Clonazepam 1 Mg Tablet 2 Mg Oral [...] Saturday, Saturday, And Saturday 30 Days 06/03/17 Fluconazole (Diflucan) 150 Mg Tablet 150 Mg Oral Once 1 06/30/17 Fluticasone Propionate 1 Ea [place] 0 Ea Nasal Twice A Day 30 [...] And At Bedtime 30 Days 06/03/17 Ipratropium [place] 0.2 Mg/1 Ml Solution 2.5 Ml Nebullizer [...] Mg Oral Every 7 Days Discontinued Butalb/Acetaminophen/Caffeine (Eruqzm-Mswwsfww-Hmwk 50-325-40) 1 Each Tablet, Every 6 Hours [...] Oral Daily Discontinued Fluticasone Propionate 1 Ea [place], 1 Ea Nasal Twice A Day 06/13/16 [...] needed for Pain And Temperature 11/09/15 Discontinued [id number] 30 Mg Tabcr, 30 Mg Oral Daily [...] Onset Date Status Hx Psychiatric Problems No 06/30/2017 12:52am Not Applicable Not Applicable Hx Eating Disorder No 06/30/2017 12:52am Not Applicable Not Applicable Hx Substance Use Disorder No 06/30/2017 12:52am Not Applicable Not Applicable Hx Depression No 06/30/2017 12:52am Not Applicable Not Applicable Hx Alcohol Use No 06/30/2017 12:52am Not Applicable Not Applicable Hx Substance Use Treatment No 06/30/2017 12:52am Not Applicable Not Applicable Hx Physical Abuse No 06/30/2017 12:52am Not Applicable Not Applicable Smoking Status Start Date Stop Date Never Smoker Hospital Discharge Instructions No hospital discharge instruction information available. Plan of Care Discharge Date 06/30/17 4:18pm Disposition HOME, SELF-CARE Instructions/Education Provided Kidney Failure Prescriptions See Medication Section Additional Instructions/Education F/U WITH PCP IN 1-2 WEEKS F/U WITH MAGDALENA GONZALEZ FOR ISSUES RELATED TO G-TUBE Functional Status Query Response Date Recorded Assistive Devices None June 30, 2017 1:25am Ambulation Ability Independent June 30, 2017 1:25am Toileting Ability Standby Assistance June 30, 2017 1:25am Allergies, Adverse Reactions, Alerts Allergen Type Severity Reaction Status Last Updated hydromorphone HCl Allergy Unknown Active 06/05/17 ketorolac tromethamine Allergy Unknown Active 06/25/17 ondansetron HCl Allergy Unknown Active 06/06/17 Penicillin Allergy Unknown Active 06/25/17 Latex Allergy Mild Active 06/29/17 Hydrocodone Allergy Unknown Active 06/25/17 Aspirin Allergy Unknown Active 06/25/17 Ibuprofen Allergy Unknown GI upset Active 06/25/17 Fentanyl Allergy Unknown Active 06/25/17 Tramadol Allergy Unknown Active 06/25/17 Clonidine Allergy Unknown Active 06/25/17 Hydromorphone Allergy Unknown Active 06/25/17 Ondansetron Allergy Unknown Active 06/25/17 Immunizations No immunization information available. Vital Signs Acute Vital Signs Vital Response Date/Time Temperature (Fahrenheit) 98.1 degrees F (97.6 - 99.5) 06/30/2017 12:00pm Pulse Pulse Rate (adult) 119 bpm (60 - 90) 06/30/2017 12:00pm Respiratory Rate 21 bpm (12 - 24) 06/30/2017 12:00pm Blood Pressure 132/90 mm Hg 06/30/2017 12:00pm Height 5 ft 3.5 in 06/29/2017 11:57am Weight 150 lb 06/29/2017 11:57am Body Mass Index 26.2 kg/m^2 06/30/2017 12:52am Results Laboratory Results Test Name Result Units [...] 01/23/2017 11:00am 01/24/2017 6:40am Performed at: - [facility] [id number] Business Services Director: Robles Samayoa MD, Phone: [phone] Clostridium Difficile Toxin A & B NEGATIVE NEGATIVE 01/31/2017 2:30am 01/31/2017 12:27pm Testing on stool aspirate specimens is outside special investigator claims since specimen type not validated on this assay. Human Chorionic Gonadotropin, Quant < 1.20 mIU/mL 0-10 02/13/2017 7: 08pm 02/13/2017 7:50pm Urine Yeast MODERATE H NONE 04/11/2017 3:00pm 04/11/2017 3:19pm Differential Total Cells Counted 100 06/03/2017 5:50am [...] H NONE 05/30/2017 8:00pm 05/30/2017 8 :30pm Ferritin 956.34 ng/mL H 4.63-204.00 06/01/2017 6:00am 06/01/2017 7:27am Phenytoin (Dilantin) Level 3.99 ug/mL L 10-20 06/01/2017 9:48am 2017 10:35am Hepatitis A IgM Antibody Negative 05/31/2017 6:15pm 06/03/2017 9: 51am Hepatitis B Core IgM Antibody Negative 05/31/2017 6:15pm 2017 9:51am Hepatitis C Antibody 0.1 05/31/2017 6:15pm 06/03/2017 9:51am Reference Range: 0.0 - 0.9 s/co ratio Negative: < 0.8 Indeterminate: 0.8 - 0.9 Positive: > 0.9 The CDC recommends that a positive HCV antibody result be followed up with a HCV Nucleic Acid Amplification test (209529). [facility] [address] [address] Dir: Robles Samayoa MD For inquiries, the physician may contact Branch: [phone] Lab: [phone] Urine Test NEGATIVE NEGATIVE 06/06/2017 5:15pm 06/06/2017 7 :22pm Amylase Level 69 U/L 25-125 06/06/2017 11:30pm 06/06/2017 11:53pm Lipase 34 U/L 8-78 06/06/2017 11:30pm 06/07/2017 12:01am Phospholipids Level 225 06/06/2017 11:30pm 06/12/2017 12:42pm Reference Range:150 - 250 mg/dL Results for this test are for research purposes only by the assay's special investigator. The performance characteristics of this product have not been established. Results should not be used as a diagnostic procedure without confirmation of the diagnosis by another medically established diagnostic product or procedure. Testing performed by: [address] [address] Dir. Santana Salmeron MD Stool Occult Blood POSITIVE H NEGATIVE 06/06/2017 11:30pm 06/06/2017 11:41pm Phosphorus Level 4.3 MG/DL 2.3-4.7 06/27/2017 5:00am 06/27/2017 7:00am Magnesium Level 1.8 MG/DL 1.3-2.1 06/27/2017 5:00am 06/27/2017 7:00am Iron Level 111 ug/dL 50-170 06/27/2017 5:00am 06/27/2017 7:00am Total Iron Binding Capacity 179 ug/dL L 261-478 06/27/2017 5:00am 2017 7:00am Percent Iron Saturation 62 % H 15-50 06/27/2017 5:00am 06/27/2017 7: 00am Transferrin 128 mg/dL L 180-382 06/27/2017 5:00am 06/27/2017 7:00am B-Type Natriuretic Peptide 2729.8 pg/mL H 0-100 06/27/2017 5:00am 2017 6:52am Thyroid Stimulating Hormone (TSH) 2.963 uIU/mL 0.350-4.940 06/27/2017 5: 00am 06/27/2017 7:18am Hepatitis B Surface Antigen Negative Negative 06/26/2017 9:25am 06/27 11:36pm Performed at: [facility] - [facility] [address] [id number] Business Services Director: Robles Samayoa MD, Phone: [phone] White Blood Count 6.47 x10e3/uL 4.8-10.8 06/30/2017 5:53am 06/30/2017 6 :03am Red Blood Count 3.57 x10e6/uL L 3.6-5.1 06/30/2017 5:53am 06/30/2017 6: 03am Hemoglobin 10.0 g/dL L 12.0-16.0 06/30/2017 5:53am 06/30/2017 6:03am Hematocrit 32.4 % L 34.2-44.1 06/30/2017 5:53am 06/30/2017 6:03am Mean Corpuscular Volume 90.8 fL 81-99 06/30/2017 5:53am 06/30/2017 6: 03am Mean Corpuscular Hemoglobin 28.0 pg 28-32 06/30/2017 5:53am 06/30/2017 6:03am Mean Corpuscular Hemoglobin Concent 30.9 g/dL L 31-35 06/30/2017 5:53am 06/30/2017 6:03am Red Cell Distribution Width 17.9 % H 11.7-14.4 06/30/2017 5:53am 2017 6:03am Platelet Count 128 x10e3/uL L 140-360 06/30/2017 5:53am 06/30/2017 6: 03am Neutrophils (%) (Auto) 71.6 % 38.7-80.0 06/30/2017 5:53am 06/30/2017 6: 03am Lymphocytes (%) (Auto) 22.6 % 18.0-39.1 06/30/2017 5:53am 06/30/2017 6: 03am Monocytes (%) (Auto) 2.6 % L 4.4-11.3 06/30/2017 5:53am 06/30/2017 6: 03am Eosinophils (%) (Auto) 2.3 % 0.0-6.0 06/30/2017 5:53am 06/30/2017 6: 03am Basophils (%) (Auto) 0.6 % 0.0-1.0 06/30/2017 5:53am 06/30/2017 6:03am IM GRANULOCYTES % 0.3 % 0.0-1.0 06/30/2017 5:53am 06/30/2017 6:03am Neutrophils # (Auto) 4.6 2.1-6.9 06/30/2017 5:53am 06/30/2017 6:03am Lymphocytes # (Auto) 1.5 1.0-3.2 06/30/2017 5:53am 06/30/2017 6:03am Monocytes # (Auto) 0.2 0.2-0.8 06/30/2017 5:53am 06/30/2017 6:03am Eosinophils # (Auto) 0.2 0.0-0.4 06/30/2017 5:53am 06/30/2017 6:03am Basophils # (Auto) 0.0 0.0-0.1 06/30/2017 5:53am 06/30/2017 6:03am Absolute Immature Granulocyte (auto 0.02 x10e3/uL 0-0.1 06/30/2017 5: 53am 06/30/2017 6:03am Prothrombin Time 17.2 seconds H 11.9-14.5 06/29/2017 1:00pm 06/29/2017 1 :52pm Prothromb Time International Ratio 1.52 06/29/2017 1:00pm 2017 1:52pm Oral Anticoagulant Therapy INR Values: 1. Low Intensity Therapy 1.5 - 2.0 2. Moderate Intensity Therapy 2.0 - 3.0 3. High Intensity Therapy(1) 2.5 - 3.5 4. High Intensity Therapy(2) 3.0 - 4.0 5. Panic Value INR > 5.0 Activated Partial Thromboplast Time 39.4 seconds H 23.8-35.5 06/29/2017 1 :00pm 06/29/2017 4:02pm Urine Color YELLOW YELLOW 06/29/2017 12:03pm 06/29/2017 3:06pm Urine Clarity HAZY CLEAR 06/29/2017 12:03pm 06/29/2017 3:06pm Urine Specific [place] 1.015 1.010-1.025 06/29/2017 12:03pm 2017 3:06pm Urine pH 5 5 - 7 06/29/2017 12:03pm 06/29/2017 3:06pm Urine Leukocyte Esterase 2+ H NEGATIVE 06/29/2017 12:03pm 06/29/2017 3 :06pm Urine Nitrite NEGATIVE NEGATIVE 06/29/2017 12:03pm 06/29/2017 3:06pm Urine Protein 3+ H NEGATIVE 06/29/2017 12:03pm 06/29/2017 3:06pm Urine Glucose (UA) 1+ H NEGATIVE 06/29/2017 12:03pm 06/29/2017 3:06pm Urine Ketones NEGATIVE NEGATIVE 06/29/2017 12:03pm 06/29/2017 3:06pm Urine Urobilinogen 0.2 mg/dL 0.2 - 1 06/29/2017 12:03pm 06/29/2017 3: 06pm Urine Bilirubin NEGATIVE NEGATIVE 06/29/2017 12:03pm 06/29/2017 3: 06pm Urine Blood 3+ H NEGATIVE 06/29/2017 12:03pm 06/29/2017 3:06pm Urine WBC >50 /HPF H 0-5 06/29/2017 12:03pm 06/29/2017 3:30pm Urine RBC 21-50 /HPF H 0-5 06/29/2017 12:03pm 06/29/2017 3:30pm Urine Bacteria MODERATE /HPF H NONE 06/29/2017 12:03pm 06/29/2017 3: 30pm Urine Epithelial Cells MODERATE /LPF NONE 06/29/2017 12:03pm 2017 3:30pm Urine Mucus MODERATE H RARE 06/29/2017 12:03pm 06/29/2017 3:30pm Sodium Level 138 mmol/L 136-145 06/30/2017 5:53am 06/30/2017 6:26am Potassium Level 3.8 mmol/L 3.5-5.1 06/30/2017 5:53am 06/30/2017 6:26am Chloride Level 103 mmol/L 98-107 06/30/2017 5:53am 06/30/2017 6:26am Carbon Dioxide Level 26 mmol/L 22-06/30/2017 5:53am 06/30/2017 6: 26am Anion Gap 12.8 mmol/L 8-06/30/2017 5:53am 06/30/2017 6:26am Blood Urea Nitrogen 12 mg/dL 7-26 06/30/2017 5:53am 06/30/2017 6:26am Creatinine 2.23 mg/dL H 0.57-1.11 06/30/2017 5:53am 06/30/2017 6:26am BUN/Creatinine Ratio 5 L 6-25 06/30/2017 5:53am 06/30/2017 6:26am Estimat Glomerular Filtration Rate 31 ML/MIN L 60- 06/30/2017 5:53am 6:26am Ranges were taken from the National Kidney Disease Education Program and the National Kidney Foundation literature. Reference ranges: 60 or greater: Normal 16-59 (for 3 consecutive months): Chronic kidney disease 15 or less: Kidney failure Glucose Level 182 mg/dL H 74-118 06/30/2017 5:53am 06/30/2017 6:26am Calcium Level 8.4 mg/dL 8.4-10.2 06/30/2017 5:53am 06/30/2017 6:26am Bedside Glucose 161 mg/dL H 70-120 06/30/2017 11:19am 06/30/2017 12: 10pm Meter ID: [id number] Lactic Acid Level 13.1 MG/DL 4.5-19.8 06/29/2017 1:00pm 06/29/2017 1: 47pm Total Bilirubin 0.4 mg/dL 0.2-1.2 06/30/2017 5:53am 06/30/2017 6:26am Aspartate Amino Transf (AST/SGOT) 10 IU/L 5-34 06/30/2017 5:53am 2017 6:26am Alanine Aminotransferase (ALT/SGPT) 10 IU/L 0-55 06/30/2017 5:53am 6:26am Total Protein 6.7 g/dL 6.5-8.1 06/30/2017 5:53am 06/30/2017 6:26am Albumin 2.5 g/dL L 3.5-5.0 06/30/2017 5:53am 06/30/2017 6:26am Globulin 4.2 g/dL H 2.3-3.5 06/30/2017 5:53am 06/30/2017 6:26am Albumin/Globulin Ratio 0.6 L 0.8-2.0 06/30/2017 5:53am 06/30/2017 6: 26am Alkaline Phosphatase 155 IU/L H 40-150 06/30/2017 5:53am 06/30/2017 6: 26am Creatine Kinase 99 IU/L 29-168 06/30/2017 5:53am 06/30/2017 7:39am Creatine Kinase MB 2.30 ng/mL 0-5.0 06/30/2017 5:53am 06/30/2017 8: 18am Troponin I 0.006 ng/mL 0-0.300 06/30/2017 5:53am 06/30/2017 8:18am Human Chorionic Gonadotropin, Qual NEGATIVE NEGATIVE 06/29/2017 1: 00pm 06/29/2017 1:46pm Microbiology Results Procedure Source Organism/Result Collection Date/Time Result Date/Time Result Status Urine Culture Urine,[place] MARIUSZ GLABRATA 01/29/2017 7:38am 2016 7:41am Final Urine Culture Urine,Catheterized MARIUSZ GLABRATA 02/03/2017 1:00pm 2016 10:06am Final Urine Culture Urine,Clean Catch ESCHERICHIA COLI 03/30/2017 12:00am 2016 10:48am Final Urine Culture Urine,Random MARIUSZ GLABRATA 04/11/2017 3:00pm 04/16/2017 6 :14am Final Blood Culture Blood NO GROWTH AFTER 24 HOURS 06/29/2017 1:45pm 06/30/2017 2:54pm Preliminary Procedures Procedure Status Date Provider(s) INSERTION OF [...] OF ESOPHAGUS, ENDO, DIAGN Completed 01/02/17 LIVAN AVENDAOÑ RONALD MD EXCISION OF STOMACH, ENDO, DIAGN [...] REMOVAL OF INFUSION DEVICE FROM UPPER VEIN, TITLE INVESTIGATOR APPROACH Completed HANK SALMERON MD, SALMAN INSERT [...] joint upr extrem w/o dye Active 01/30/17 SAUD,LOREN W DAIRY LAB TECHNICIAN CT of abdomen and pelvis without contrast Active 01/31/17 BREEKET BARCLAY MD Computed tomography of brain without [...] spine without contrast Active 02/13/[address] of abdomen and pelvis without contrast Active 02/13/17 MAGNO MORFIN NP Computed tomography of brain without radiopaque contrast Active 04/04/17 VUALDO TERRY DAIRY LAB TECHNICIAN US abdomen complete Active 04/05/17 UVALDO TERRY DAIRY LAB TECHNICIAN X-ray of chest, single view Active 04/16/[address] of abdomen and pelvis without contrast Active 04/17/17 AMELIA COPPOLA X-ray of chest, single view Active 05/30/[address] of abdomen and pelvis without contrast Active 06/05/[address] of abdomen and pelvis without contrast Active 06/29/17 INA ELIAS US abdomen complete Active 06/30/17 UVALDO TERRY DAIRY LAB TECHNICIAN Encounters Encounter Location Arrival/Admit Date Discharge/Depart Date Attending Provider Discharged Inpatient [facility] 06/29/17 2:54pm 06/30/17 4:18pm JOHN BAHENA MD Discharged Inpatient (obs) [facility] 06/25/17 7:26pm 6:25pm JOHN BAHENA MD Departed Emergency Room [facility] 06/06/17 1:25pm 4:10am MIREILLE AMOR MD [facility] Emergency [facility] 06/05/17 10:35am 06/05 5:53pm RY DRAPER MD Discharged Inpatient [facility] 05/30/17 9:24pm 06/03/17 6:37pm JOHN BAHENA MD [...]
[2017-07-02] MEDS ORDERED: MORPHINE SULFATE 2 MG/ML SYR IV STA (15:34)
[2017-07-02] MEDS ORDERED: PROMETHAZINE 12.5MG/ NACL 0.9% 12.5 MG/50 ML BAG IV ONE (15:45)
[2017-07-02] MEDS ORDERED: DIPHENHYDRAMINE HCL INJ 50 MG/ML VIAL IV ONE (15:45)
[2017-07-02 15:49] LABS: BASOPHILS % 0.4 % (0.0-1.0); EOSINOPHILS # (AUTO) 0.1 (0.0-0.4); EOSINOPHILS % 2.5 % (0.0-6.0); HEMOGLOBIN 9.2 g/dL (12.0-16.0); LYMPHOCYTES # (AUTO) 1.4 (1.0-3.2); LYMPHOCYTES % 27.6 % (18.0-39.1); MEAN CORPUSCULAR HEMOGLOBIN 28.1 pg (28-32); MEAN CORPUSCULAR HGB CONC 30.7 g/dL (31-35); MEAN CORPUSCULAR VOLUME 91.7 fL (81-99); MONOCYTES # (AUTO) 0.2 (0.2-0.8); MONOCYTES % 3.1 % (4.4-11.3); NEUTROPHILS # (AUTO) 3.5 (2.1-6.9); NEUTROPHILS % 66.2 % (38.7-80.0); PLATELET COUNT 126 x10e3/uL (140-360); RED BLOOD COUNT 3.27 x10e6/uL (3.6-5.1); RED CELL DISTRIBUTION WIDTH 17.6 % (11.7-14.4)
[2017-07-02 16:00] LABS: INR 1.54; PROTHROMBIN TIME 17.4 seconds (11.9-14.5)
[2017-07-02 16:01] LABS: PARTIAL THROMBOPLASTIN TIME 50.4 seconds (23.8-35.5)
[2017-07-02 16:08] LABS: ALBUMIN 2.6 g/dL (3.5-5.0); ALBUMIN/GLOBULIN RATIO 0.6 (0.8-2.0); ANION GAP 13.5 mmol/L (8-16); CALCIUM 8.4 mg/dL (8.4-10.2); CREATININE, SERUM 3.44 mg/dL (0.57-1.11); POTASSIUM 4.5 mmol/L (3.5-5.1)
[2017-07-02 16:15] LABS: CREATINE KINASE MB 3.1 ng/mL (0-5.0)
[2017-07-02 18:18] LABS: BILIRUBIN,URINE NEGATIVE (NEGATIVE); CLARITY,URINE HAZY (CLEAR); KETONES,URINE NEGATIVE (NEGATIVE); LEUKOCYTE ESTERASE ,URINE TRACE (NEGATIVE); NITRITE,URINE NEGATIVE (NEGATIVE); URINE UROBILINOGEN 0.2 mg/dL (0.2 - 1)
[2017-07-02 18:20] LABS: COLOR,URINE STRAW (YELLOW); PROTEIN,URINE DIPSTICK 2+ (NEGATIVE)
[2017-07-02 18:33] LABS: BACTERIA,URINE MODERATE /HPF; EPITHELIAL CELLS,URINE FEW /LPF; WBC,URINE (MAN) 21-50 /HPF (0-5)
[2017-07-02] MEDS ORDERED: FAMOTIDINE 20 MG/2 ML VIAL IV STA (18:41)
[2017-07-02] MEDS ORDERED: CEFTRIAXONE SOD 1 GM VIAL INJ ONE (18:45)
[2017-07-02] MEDS ORDERED: LOPERAMIDE HCL 2 MG CAP PO ONE (18:45)
[2017-07-02] MEDS ORDERED: LACTOBACILLUS ACIDOPHILUS CAPSULE PO ONE (18:45)
[2017-07-02] MEDS ORDERED: METOCLOPRAMIDE HCL 10 MG/2ML VIAL IV ONE (18:45)
[2017-07-02] MEDS ORDERED: SODIUM CHLORIDE 0.9% 500ML 500 ML IV ONE (18:45)
[2017-07-02] MEDS ORDERED: HYDROCODONE/APAP 5MG-325MG TAB PO STA (18:55)
[2017-07-02] MEDS ORDERED: MINERAL OIL/PETROLAT/GLYCERI 8OZ LOTN TOP ONE (19:00)
[2017-07-02 19:01] LABS: MAGNESIUM 1.6 MG/DL (1.3-2.1); PHOSPHORUS 5.3 MG/DL (2.3-4.7)
[2017-07-02] MEDS ORDERED: MORPHINE SULFATE INJ 4 MG/ML INJ IM PRN (19:15)
[2017-07-02] MEDS ORDERED: DEXTROSE 50% SYRINGE 50 ML IV PRN (19:30)
[2017-07-02] MEDS ORDERED: MORPHINE SULFATE INJ 4 MG/ML INJ IV PRN ×2 (19:30→23:00)
[2017-07-02] MEDS ORDERED: MORPHINE SULFATE 2 MG/ML SYR ONE ×2 (19:38→23:28)
--- NOTE | 2017-07-02 19:38 | Diagnostic Imaging Report ---
Exam: Acute series abdomen with PA chest History: Nausea and vomiting Findings: A catheter and tubing is seen over the abdomen. Partially imaged catheters and wires are seen over the upper abdomen/lower chest. No free air is seen under the diaphragm. Nonobstructive bowel gas pattern with a moderate amount of retained feces in the colon. No suspicious calcifications. Impression: Nonobstructive bowel gas pattern with a moderate amount of retained feces in the colon. Signed by: Dr. Juan Willis M.D. on 07/02/2017 7:35 PM
[2017-07-02] MEDS ORDERED: MORPHINE SULFATE 2 MG/ML SYR IV PRN (20:00)
[2017-07-02] MEDS: INSULIN REGULAR, HUMAN 100 UNIT/1 ML 3ML VIAL SQ SCH (21:00)
[2017-07-02] MEDS ORDERED: SODIUM CHLORIDE 0.9% 500ML 500 ML ONE (21:54)
[2017-07-02] MEDS ORDERED: LOPERAMIDE HCL 2 MG CAP PO SCH (22:00)
[2017-07-02] MEDS ORDERED: FAMOTIDINE 20 MG/2 ML VIAL IV SCH (22:00)
[2017-07-02] MEDS ORDERED: HYDROCODONE/APAP 5MG-325MG TAB PO SCH (22:00)
[2017-07-02] MEDS ORDERED: LACTOBACILLUS ACIDOPHILUS CAPSULE PO SCH (22:00)
[2017-07-02 22:25] VITALS: BP 131/84
[2017-07-02] MEDS ORDERED: DIPHENHYDRAMINE HCL INJ 50 MG/ML VIAL IV PRN (22:45)
[2017-07-02] MEDS ORDERED: PROMETHAZINE 12.5MG/ NACL 0.9% 12.5 MG/50 ML BAG IV PRN (22:45)
[2017-07-03] VITALS: BP 118/74
[2017-07-03] MEDS ORDERED: DIPHENHYDRAMINE HCL 25 MG CAP PO PRN (00:15)
[2017-07-03] MEDS ORDERED: PROMETHAZINE HCL 25 MG TAB PO PRN ×2 (00:15→06:15)
[2017-07-03] MEDS ORDERED: LORAZEPAM 1 MG TAB PO PRN (00:15)
[2017-07-03] MEDS ORDERED: MORPHINE SULFATE 30 MG TAB ER PO PRN ×2 (00:15→06:15)
[2017-07-03] MEDS ORDERED: PROMETHAZINE HCL 25 MG SUPP PR PRN (00:15)
[2017-07-03 04:00] VITALS: BP 129/83
[2017-07-03] MEDS: METOCLOPRAMIDE HCL 10 MG/2ML VIAL IV SCH ×5 (06:01→21:00)
[2017-07-03] MEDS ORDERED: INSULIN REGULAR, HUMAN 100 UNIT/1 ML 3ML VIAL SQ SCH ×4 (06:15→07:30)
[2017-07-03] MEDS ORDERED: MORPHINE SULFATE INJ 4 MG/ML INJ IV PRN (06:15)
[2017-07-03] MEDS ORDERED: HYDROXYZINE HCL 25 MG TAB PO PRN (06:15)
[2017-07-03] MEDS ORDERED: ZOLPIDEM TARTRATE 10 MG TAB PO PRN ×2 (06:15→21:00)
[2017-07-03 06:20] LABS: BASOPHILS % 0.8 % (0.0-1.0); EOSINOPHILS # (AUTO) 0.2 (0.0-0.4); EOSINOPHILS % 3.8 % (0.0-6.0); HEMATOCRIT 31.1 % (34.2-44.1); HEMOGLOBIN 9.4 g/dL (12.0-16.0); LYMPHOCYTES # (AUTO) 1.5 (1.0-3.2); LYMPHOCYTES % 30.6 % (18.0-39.1); MEAN CORPUSCULAR HEMOGLOBIN 28.1 pg (28-32); MEAN CORPUSCULAR HGB CONC 30.2 g/dL (31-35); MEAN CORPUSCULAR VOLUME 93.1 fL (81-99); MONOCYTES # (AUTO) 0.3 (0.2-0.8); MONOCYTES % 5.7 % (4.4-11.3); NEUTROPHILS # (AUTO) 2.9 (2.1-6.9); NEUTROPHILS % 58.7 % (38.7-80.0); PLATELET COUNT 122 x10e3/uL (140-360); RED BLOOD COUNT 3.34 x10e6/uL (3.6-5.1); RED CELL DISTRIBUTION WIDTH 17.2 % (11.7-14.4)
[2017-07-03] MEDS: LEVOFLOXACIN 250MG/D5W 50ML 50 ML IV SCH (06:38)
[2017-07-03] MEDS ORDERED: DEXTROSE 50% SYRINGE 50 ML IV PRN (06:45)
[2017-07-03 06:56] LABS: ALBUMIN 2.7 g/dL (3.5-5.0); ALBUMIN/GLOBULIN RATIO 0.7 (0.8-2.0); ANION GAP 15.7 mmol/L (8-16); CALCIUM 8.5 mg/dL (8.4-10.2); CREATININE, SERUM 3.52 mg/dL (0.57-1.11); POTASSIUM 4.7 mmol/L (3.5-5.1)
[2017-07-03] MEDS: PROMETHAZINE 12.5MG/ NACL 0.9% 12.5 MG/50 ML BAG IV PRN ×2 (07:26→21:00)
[2017-07-03] MEDS: MORPHINE SULFATE 2 MG/ML SYR IV PRN ×2 (07:26→11:19)
[2017-07-03] MEDS ORDERED: METOCLOPRAMIDE HCL 10 MG TAB PO SCH ×2 (07:30)
[2017-07-03] MEDS: INSULIN REGULAR, HUMAN 100 UNIT/1 ML 3ML VIAL SQ SCH ×4 (07:30→21:00)
[2017-07-03 07:39] VITALS: BP 121/95
[2017-07-03] MEDS: PHENYTOIN SODIUM EXT REL 100 MG CAP PO SCH ×2 (08:00→21:00)
[2017-07-03] MEDS: PANTOPRAZOLE SODIUM 40 MG SUSPDR.PKT PO SCH ×2 (08:02→16:30)
[2017-07-03] MEDS: SUCRALFATE 1 GM/10 ML SUSP PO SCH ×3 (08:02→16:30)
--- NOTE | 2017-07-03 08:06 | Diagnostic Imaging Report ---
PROCEDURE: CHEST SINGLE (PORTABLE) COMPARISON: Acute abdominal series 07/02/2017. INDICATIONS: SHORTNESS OF BREATH FINDINGS: Right internal jugular tunneled hemodialysis catheter, left chest port, and left chest cardiac device are unchanged in appearance. Lung volumes remain low with perihilar interstitial prominence. Stable mild enlargement of the cardiac silhouette. No new consolidation or effusion. No acute osseous abnormality. CONCLUSION: Low lung volumes with mild interstitial pulmonary edema. Dictated by: Arjun Villeda M.D. on 07/03/2017 at 8:06 Electronically approved by: Arjun Villeda M.D. on 07/03/2017 at 8:06
[2017-07-03] MEDS: DIPHENHYDRAMINE HCL 25 MG CAP PO SCH ×3 (09:00→22:05)
[2017-07-03] MEDS ORDERED: METHOCARBAMOL 500 MG TAB PO SCH (09:00)
[2017-07-03] MEDS: DILTIAZEM HCL 30 MG TAB PO SCH ×3 (09:00→21:00)
[2017-07-03] MEDS: POLYETHYLENE GLYCOL 3350 17 GM PACK PO SCH (09:00)
[2017-07-03] MEDS: CYCLOBENZAPRINE HCL 10 MG TAB PO SCH ×2 (09:00→17:00)
[2017-07-03] MEDS ORDERED: LORAZEPAM 1 MG TAB PO SCH (09:00)
[2017-07-03] MEDS ORDERED: EPOETIN ALFA 10000 UNIT/ML VIAL SC SCH (09:00)
[2017-07-03] MEDS: FUROSEMIDE 40 MG TAB PO SCH ×2 (09:00→17:00)
[2017-07-03] MEDS ORDERED: BUDESONIDE/FORMOTEROL 160/4.5MCG INHALER INH SCH (09:00)
[2017-07-03] MEDS: LEVETIRACETAM 500 MG TAB PO SCH ×2 (09:00→17:00)
[2017-07-03] MEDS: CARVEDILOL 12.5 MG TAB PO SCH ×2 (09:00→17:00)
[2017-07-03] MEDS: CLONAZEPAM 1 MG TAB PO SCH ×2 (09:00→21:00)
[2017-07-03] MEDS ORDERED: CLONAZEPAM 1 MG TAB PO SCH (09:00)
[2017-07-03 10:13] VITALS: BP 121/95
--- NOTE | 2017-07-03 10:32 | History and Physical ---
PRIMARY CARE PHYSICIAN: Dr. Mukherjee CHIEF COMPLAINT: Abdominal pain, nausea and vomiting. HISTORY OF PRESENT ILLNESS: This is a 31-year-old woman with a history of end-stage renal disease, on hemodialysis, who was unable to obtain dialysis this week because of nausea, vomiting and diarrhea. She was sent to the hospital. She complained of abdominal pain. This has been ongoing for about a week. She does have subjective fever. She denies any dizziness. Denies any other symptoms. PAST MEDICAL HISTORY: Diabetes mellitus, type 1, neurogenic bladder requiring self-catheterization, diabetic gastroparesis, dysphagia, status post PEG tube placement, diabetic neuropathy, end-stage renal disease, on hemodialysis, diabetic nephropathy, systolic congestive heart failure. Left ventricular ejection fraction 40% to 45%, left heel diabetic foot ulcer, epilepsy. PAST SURGICAL HISTORY: ICD placement, cholecystectomy, PEG tube placement, and right chest dialysis tunneled catheter. ALLERGIES: PER ELECTRONIC MEDICAL RECORD. FAMILY HISTORY/SOCIAL HISTORY: Patient is single. She lives with her mother. No alcohol, illicits or cigarettes. MEDICATIONS: Per electronic medical record. REVIEW OF SYSTEMS: Denies any dizziness or chest pain. PHYSICAL EXAMINATION VITAL SIGNS: Reviewed. GENERAL: A tired-appearing woman resting in bed. HEENT: Anicteric. CARDIOVASCULAR: Normal S1 and S2 without murmurs. Rapid heart rate. LUNGS: Moderate breath sounds. ABDOMEN: Soft and nondistended. She has a PEG tube in place. She has diffuse tenderness in the abdomen. No rebound. EXTREMITIES: She has trace edema. SKIN: Dry. PSYCHIATRIC: Flat affect. MUSCULOSKELETAL: She has right-sided chest hemodialysis catheter. LABS: Reviewed. MEDICATIONS: Reviewed. ASSESSMENT: A 31-year-old woman with: 1. Acute gastroenteritis. 2. Urinary tract infection. 3. Abdominal pain. 4. End-stage renal disease, on hemodialysis. 5. Chronic systolic congestive heart failure. 6. Chronic pain syndrome. 7. Epilepsy. 8. Mild to moderate normocytic anemia. 9. Hyponatremia. PLAN 1. Will treat with antibiotics for presumed bacterial gastroenteritis. 2. Will also treat her with antibiotics for urinary tract infection. 3. Consult nephrology for dialysis. 4. Treat abdominal pain with p.r.n. pain medication. 5. Monitor blood counts. She has mild to moderate normocytic anemia. 6. Will use Levaquin and Flagyl. 7. May need to consult GI services. 8. Will use EMILY hose and SCD and Pepcid for prophylaxis. 9. Disposition. Monitor closely. Nephrology consultation. Job#: [id number] RI
[2017-07-03] MEDS: METRONIDAZOLE 250MG/NS 50ML 50 ML IV SCH ×2 (11:18→20:08)
[2017-07-03] MEDS ORDERED: SODIUM CHLORIDE 0.9% 1000ML 2,000 ML ONE (11:38)
[2017-07-03] MEDS ORDERED: DIPHENHYDRAMINE HCL INJ 50 MG/ML VIAL IV NR (12:00)
[2017-07-03] MEDS ORDERED: HEPARIN SOD (PORCINE) 1000 UNIT/ML SDV IV PRN (12:00)
--- NOTE | 2017-07-03 14:55 | Consultation ---
DATE OF CONSULTATION: July 03, 2017 RENAL CONSULTATION HISTORY OF PRESENT ILLNESS: This is a well-known patient to us, a 31-year-old female who is a high-risk dialysis patient. She was recently discharged and returns again with same complaints of nausea, had some itching around the dressing around her PEG tube, but other than that, no rash noted. The only complaint is nausea. There is no vomiting today. There is no diarrhea. There is no hematemesis or melena. She is resting comfortably. No apparent distress. She is scheduled for dialysis today. ALLERGIES: PLEASE SEE CHART. SOCIAL HISTORY: Does not smoke or drink. CURRENT MEDICATIONS: Please see MAR. PAST MEDICAL HISTORY: Please see recent consultation note. PHYSICAL EXAMINATION: GENERAL: Awake, alert, lying supine, no apparent distress. VITALS: Blood pressure 131/56. Pulse rate 77. Afebrile. Respiratory rate 17. HEAD AND NECK: Cornea clear. Oral mucosa dry. LUNGS: Decreased air entry at bases. No rales. HEART: S1 and S2 audible. ABDOMEN: Otherwise soft, nontender. Dressing noted. LOWER EXTREMITY EXAMINATION: Trace to 1+ edema. IMPRESSION: 1. Mild edema. 2. End-stage renal disease. Laboratory tests noted. I will schedule dialysis. Job#: [id number] EV
[2017-07-03] MEDS ORDERED: MIRTAZAPINE 15 MG TAB PO SCH (21:00)
[2017-07-03] MEDS: MORPHINE SULFATE 15MG TAB CR PO SCH (21:43)
[2017-07-04] MEDS: METRONIDAZOLE 250MG/NS 50ML 50 ML IV SCH ×2 (02:00→11:07)
[2017-07-04] MEDS: LEVOFLOXACIN 250MG/D5W 50ML 50 ML IV SCH (05:55)
[2017-07-04 06:22] VITALS: BP 121/95
[2017-07-04] MEDS: INSULIN REGULAR, HUMAN 100 UNIT/1 ML 3ML VIAL SQ SCH ×2 (07:30→11:30)
[2017-07-04 08:00] VITALS: BP 135/108
[2017-07-04 08:38] LABS: BILIRUBIN,URINE NEGATIVE (NEGATIVE); KETONES,URINE NEGATIVE (NEGATIVE); LEUKOCYTE ESTERASE ,URINE 1+ (NEGATIVE); NITRITE,URINE NEGATIVE (NEGATIVE); PROTEIN,URINE DIPSTICK 3+ (NEGATIVE); URINE UROBILINOGEN 0.2 mg/dL (0.2 - 1)
[2017-07-04 08:40] LABS: CLARITY,URINE TURBID (CLEAR); COLOR,URINE RED (YELLOW)
[2017-07-04 08:41] LABS: BACTERIA,URINE MODERATE /HPF; RBC,URINE >50 /HPF (0-5)
[2017-07-04] MEDS: POLYETHYLENE GLYCOL 3350 17 GM PACK PO SCH (09:00)
[2017-07-04] MEDS ORDERED: MORPHINE SULFATE 15MG TAB CR PO SCH (09:00)
[2017-07-04] MEDS: PANTOPRAZOLE SODIUM 40 MG SUSPDR.PKT PO SCH (10:42)
[2017-07-04] MEDS: METOCLOPRAMIDE HCL 10 MG/2ML VIAL IV SCH (10:42)
[2017-07-04] MEDS: DIPHENHYDRAMINE HCL 25 MG CAP PO SCH ×2 (10:42→13:00)
[2017-07-04] MEDS: CARVEDILOL 12.5 MG TAB PO SCH (10:43)
[2017-07-04] MEDS: PHENYTOIN SODIUM EXT REL 100 MG CAP PO SCH (10:43)
[2017-07-04] MEDS: CYCLOBENZAPRINE HCL 10 MG TAB PO SCH (10:43)
[2017-07-04] MEDS: CLONAZEPAM 1 MG TAB PO SCH (10:43)
[2017-07-04] MEDS: DILTIAZEM HCL 30 MG TAB PO SCH ×2 (10:43→13:00)
[2017-07-04] MEDS: LEVETIRACETAM 500 MG TAB PO SCH (10:43)
[2017-07-04] MEDS: FUROSEMIDE 40 MG TAB PO SCH (10:43)
[2017-07-04] MEDS: MORPHINE SULFATE 15MG TAB CR PO SCH (10:44)
[2017-07-04 12:00] VITALS: BP 130/91
[2017-07-04] MEDS ORDERED: PROMETHAZINE HC25 MG RC (12:01)
[2017-07-04] MEDS ORDERED: ZYVOX600 MG PO (12:01)
[2017-07-04] MEDS ORDERED: METOCLOPRAMIDE HCL 10 MG TAB PO SCH (16:30)
--- NOTE | 2017-07-06 00:28 | Discharge Summary ---
ADMISSION DIAGNOSES 1. Acute gastroenteritis. 2. Urinary tract infection. 3. Abdominal pain. 4. End-stage renal disease, on hemodialysis. 5. Chronic systolic heart failure. 6. Chronic pain. 7. Epilepsy. 8. Anemia. 9. Hyponatremia. DISCHARGE DIAGNOSIS 1. Acute gastroenteritis. 2. Urinary tract infection. 3. Abdominal pain. 4. End-stage renal disease, on hemodialysis. 5. Chronic systolic heart failure. 6. Chronic pain. 7. Epilepsy. 8. Anemia. 9. Hyponatremia. 10. Ruled out gastroenteritis. 11. Ruled out myocardial infarction. HISTORY: Patient has a history of type-1 diabetes, neurogenic bladder requiring self-cath, diabetic gastroparesis, dysphagia, status post PEG placement, diabetic neuropathy, end-stage renal disease, diabetic nephropathy, systolic congestive heart failure with the EF of 40%-45%, left heel diabetic foot ulcers, epilepsy. Surgical history of ICD placement, cholecystectomy, PEG tube, and right chest dialysis tunneled catheter. HOSPITAL COURSE: A 31-year-old female was unable to obtain dialysis this week again because of nausea, vomiting, and diarrhea. She said they sent her to the hospital. Upon admission, renal was consulted, who did dialysis on the patient since she skipped her treatment. Urine culture was done, which showed enterococcus. Patient had her dialysis and then, was to be sent home, even though she complained of nausea and vomiting, the patient was tolerating p.o. just fine. Nursing never saw any diarrhea. Patient was sent home just 2 days ago for UTI and was sent home with antibiotics. After calling [facility], [facility], and [facility], patient did not olive picker her antibiotics that were given last time. At [facility], the only thing she has picked up is lorazepam. At [facility], the only thing she has picked up is Flexeril, Reglan, and morphine, and [facility], she has not picked up any prescription this year. So, the patient is not picking up anything that we are prescribing her each time she comes to the hospital. Patient was sent home with mom and very angry and thinks that she needs to stay in the hospital. We explained to her that her UTI is not a reason to stay in the hospital. I explained that she needs to follow up with dialysis as scheduled and if she has any issues with her feeding tube, to follow up with Kristin Valera as discussed many times before. Prescription for promethazine suppository and Zyvox for 10 days. Follow up with primary care in 1-2 weeks. Dictated by: Wendy Brunner NP JOHN BAHENA MD Job#: [id number] CQ
--- NOTE | 2017-09-06 10:57 | Consultation ---
DATE OF CONSULTATION: July 04, 2017 PAIN MANAGEMENT CONSULTATION REASON FOR FOLLOWUP: Pain management for abdominal pain and back pain. HISTORY OF PRESENT ILLNESS: This is a 31-year-old woman with multiple medical issues, renal disease, on hemodialysis, who has been admitted multiple times to the hospital with multiple issues, acute pain in the abdomen, nausea, vomiting, and diarrhea. She complained of abdominal pain of 10/10 all the time. She has been home for only about a week. She had subjective fever, but she also complained of dizziness and other symptoms out of proportion. PAST MEDICAL HISTORY: Multiple medical conditions, diabetes, renal disease requiring catheter, diabetic gastroparesis, dysphagia, PEG placement, diabetic neuropathy, renal disease, on hemodialysis, nephropathy, systolic congestive heart failure, diabetic foot ulcer. PAST SURGICAL HISTORY: partial gastrectomy, ICD placement, cholecystectomy, PEG tube, dialysis renal catheter. ALLERGIES: PER MEDICAL RECORDS. SOCIAL HISTORY: She is single and lives with mother. MEDICATIONS: As per MAR. REVIEW OF SYSTEMS: Does have some dizziness. No chest pain. The rest of the review of systems with nothing significant. PHYSICAL EXAMINATION GENERAL: In pain but not acute distress. VITAL SIGNS: Within normal limits. HEENT: Normocephalic and atraumatic. LUNGS: Air entry equal bilaterally. HEART: Regular rate and rhythm. ABDOMEN: Soft otherwise. Tender in the abdomen. EXTREMITIES: Some trace edema otherwise in both legs and . ASSESSMENT AND PLAN: This is a 31-year-old female with multiple issues and multiple hospitalizations in the past. Will continue supportive care while she is inpatient. Will follow her while she is inpatient. Job#: [id number] ULISSES
== END 2017-07-04 14:44 | disposition home or self-care (01) | DRG 698 ==
LOC: ER 13:25 → ERHOLD 19:25 → MED/SURG2 22:03
PROVIDERS: ADMIT Internal Medicine; ATTEND Internal Medicine
DX: T83.511A Infection and inflammatory reaction due to indwelling urethral catheter, initial encounter (principal); N18.6 End stage renal disease; I13.2 Hypertensive heart and chronic kidney disease with heart failure and with stage 5 chronic kidney disease, or end stage renal disease; E87.1 Hypo-osmolality and hyponatremia; F15.20 Other stimulant dependence, uncomplicated; I50.22 Chronic systolic (congestive) heart failure; E11.40 Type 2 diabetes mellitus with diabetic neuropathy, unspecified; Z99.2 Dependence on renal dialysis; Z91.15 Patient's noncompliance with renal dialysis; G40.909 Epilepsy, unspecified, not intractable, without status epilepticus; D64.9 Anemia, unspecified; Z95.810 Presence of automatic (implantable) cardiac defibrillator; B95.2 Enterococcus as the cause of diseases classified elsewhere; G89.4 Chronic pain syndrome; D63.8 Anemia in other chronic diseases classified elsewhere; N31.9 Neuromuscular dysfunction of bladder, unspecified; Z93.1 Gastrostomy status; R10.9 Unspecified abdominal pain
CPT/HCPCS: 36415; 71045; 74022; 80053; 81001; 82550; 82553; 82948; 83735; 83880; 84100; 84484; 85025; 85379; 85610; 85730; 86704; 86706; 87086; 87186; 87340; 90962; 99285; J1200; J1642; J1644; J1956; J2270; J2550; J2765; J7030; J7040; Q4081

== ENCOUNTER 2017-07-05 07:44 | Emergency (ER) | payer OTHER ==
[~2017-07-05] VITALS: Ht 160 cm; Wt 68.0 kg
[~2017-07-05 07:44] MED LIST changes: +PROMETHAZINE HC25 MG RC; +ZYVOX600 MG PO
--- OUTSIDE RECORDS SUMMARY | 2017-07-05 07:48 | XMS REPORT | Continuity of Care Document ---
Author Author [facility] Organization [facility] Address [address] [place] [address] Phone Unavailable Care Team Providers Care Central Sterile Tech Name Role Phone JOHN BAHENA MD PCP Insurance Providers Guarantor Sonam Bermeo Address [address] [place] [address] Email [email or web address] Payer [place] Medicaid Policy Number [id number] Subscriber's Name Jean-ClaudeSonam Pearson Relationship 18 Self / Same As Patient Group Number [id number] Group Name UNEMPLOYED Effective Date 16 Advance Directives Directive Response Recorded Date/Time Does the patient have an advance directive? No 07/02/17 12:00am If yes, is advance directive on file with [facility]? No 07/02/17 12:00am If not on file with [facility] will patient provide a copy? No 07/02/17 12:00am Do you have a Directive to Physician? No 07/02/17 2:37pm Do you have a Medical Power of Auto Design Detailer? No 07/02/17 2:37pm Do you have an out of hospital Do Not Resuscitate Order? No 07/02/17 2:37pm Do you have any special needs we should be aware of? No 07/02/17 2:37pm Do you have a support person here with you today? Yes 07/02/17 2:37pm Did patient receive Notice of Privacy Practices? Yes 07/02/17 2:37pm Did patient receive patient rights and responsibilities? Yes 07/02/17 2:37pm Problems Medical Problem Onset Date Status Abdominal [...] 30 Days 06/03/17 Fluticasone Propionate 1 Ea [place] 0 Ea Nasal Twice A Day 30 [...] And At Bedtime 30 Days 06/03/17 Ipratropium [place] 0.2 Mg/1 Ml Solution 2.5 Ml Nebullizer As Needed Levetiracetam (Keppra) 500 Mg Tablet 500 Mg Oral Twice A Day Linezolid (Zyvox) 600 Mg Tablet 600 Mg Oral Twice A Day 10 Days Lorazepam (Ativan) 1 Mg Tablet Oral Twice [...] Day as needed for Nausea 14 06/27/17 Promethazine Hcl 25 Mg Supp.rect 1 Supp Rectal Twice A Day as needed for Nausea 30 Days 07/04/17 Sucralfate 1 G/10 Ml Susp 1 G [...] Mg Oral Every 7 Days Discontinued Butalb/Acetaminophen/Caffeine (Hxozkr-Yueqlzhy-Mhnu 50-325-40) 1 Each Tablet, Every 6 Hours Discontinued Ceftin , 500 Mg Oral Daily 06/30/17 Discontinued Cefuroxime Axetil (Cefuroxime) 250 Mg Tablet, [...] Mg Tablet, 325 Mg Oral Daily Discontinued Fluconazole (Diflucan) 150 Mg Tablet, 150 Mg Oral Once 06/30/17 Discontinued Fluticasone Propionate 1 Ea [place], 1 Ea Nasal Twice A Day 06/13/16 [...] needed for Pain And Temperature 11/09/15 Discontinued [id number] 30 Mg Tabcr, 30 Mg Oral Daily [...] Applicable Not Applicable Hx Eating Disorder No 07/02/2017 12:00am Not Applicable Not Applicable Hx Substance Use Disorder No 06/30/2017 12:52am Not Applicable Not Applicable Hx Depression No 06/30/2017 12:52am Not Applicable Not Applicable Hx Alcohol Use No 07/02/2017 12:00am Not Applicable Not Applicable Hx Substance Use Treatment No 07/02/2017 12:00am Not Applicable Not Applicable Hx Physical Abuse No 07/02/2017 12:00am Not Applicable Not Applicable Smoking Status Start Date Stop Date Unknown if ever smoked Hospital Discharge Instructions No hospital discharge instruction information available. Plan of Care Discharge Date 07/04/17 2:44pm Disposition HOME, SELF-CARE Instructions/Education Provided Vomiting - Adult Prescriptions See Medication Section Additional Instructions/Education F/U WITH MAGDALENA GONZALEZ FOR GI ISSUES Functional Status Query Response Date Recorded Assistive Devices None July 03, 2017 12:00am Ambulation Ability Independent July 03, 2017 12:00am Toileting Ability Independent July 03, 2017 12:00am Allergies, Adverse Reactions, Alerts Allergen Type Severity Reaction Status Last Updated hydromorphone HCl Allergy Unknown Active 07/02/17 ketorolac tromethamine Allergy Unknown Active 07/02/17 ondansetron HCl Allergy Unknown Active 07/02/17 Penicillin Allergy Unknown Active 07/02/17 Latex Allergy Mild Active 07/02/17 Hydrocodone Allergy Unknown Active 07/02/17 Aspirin Allergy Unknown Active 07/02/17 Ibuprofen Allergy Unknown GI upset Active 07/02/17 Fentanyl Allergy Unknown Active 07/02/17 Tramadol Allergy Unknown Active 07/02/17 Clonidine Allergy Unknown Active 07/02/17 Hydromorphone Allergy Unknown Active 07/02/17 Ondansetron Allergy Unknown Active 07/02/17 Immunizations No immunization information available. Vital Signs Acute Vital Signs Vital Response Date/Time Temperature (Fahrenheit) 96.9 degrees F (97.6 - 99.5) 07/04/2017 12:00pm Pulse Pulse Rate (adult) 109 bpm (60 - 90) 07/04/2017 12:00pm Respiratory Rate 18 bpm (12 - 24) 07/04/2017 12:00pm Blood Pressure 130/91 mm Hg 07/04/2017 12:00pm Height 5 ft 3 in 07/02/2017 10:25pm Weight 150 lb 07/02/2017 12:00am Body Mass Index 26.6 kg/m^2 07/02/2017 10:25pm Results Laboratory Results Test Name Result Units Flags Reference Collection Date/Time Result Date/ Time Comments Reactive Lymphocytes 1 01/24/2017 6:19am 01/24/2017 8:25am Blast Cells % 1 01/24/2017 6:19am 01/24/2017 8:25am Clostridium Difficile Toxin A & B NEGATIVE NEGATIVE 01/31/2017 2:30am 01/31/2017 12:27pm Testing on stool aspirate specimens is outside mva still operator claims since specimen type not validated on [...] with a HCV Nucleic Acid Amplification test (012595). [facility] [address] [address] Dir: Robles Samayoa MD For inquiries, the physician may contact Branch: [phone] Lab: [phone] Urine Test NEGATIVE NEGATIVE 06/06/2017 5:15pm 06/06/2017 7 :22pm Amylase Level 69 U/L 25-125 06/06/2017 11:30pm 06/06/2017 11:53pm Lipase 34 U/L 8-78 06/06/2017 11:30pm 06/07/2017 12:01am Phospholipids Level 225 06/06/2017 11:30pm 06/12/2017 12:42pm Reference Range:150 - 250 mg/dL Results for this test are for research purposes only by the assay's mva still operator. The performance characteristics of this product have not been established. Results should not be used as a diagnostic procedure without confirmation of the diagnosis by another medically established diagnostic product or procedure. Testing performed by: [address] [address] Dir. Santana Salmeron MD Stool Occult Blood POSITIVE H NEGATIVE 06/06/2017 11:30pm 06/06/2017 11:41pm Iron Level 111 ug/dL 50-170 06/27/2017 5:00am 06/27/2017 7:00am Total Iron Binding Capacity 179 ug/dL L 261-478 06/27/2017 5:00am 2017 7:00am Percent Iron Saturation 62 % H 15-50 06/27/2017 5:00am 06/27/2017 7: 00am Transferrin 128 mg/dL L 180-382 06/27/2017 5:00am 06/27/2017 7:00am Thyroid Stimulating Hormone (TSH) 2.963 uIU/mL 0.350-4.940 06/27/2017 5: 00am 06/27/2017 7:18am Urine Mucus MODERATE H RARE 06/29/2017 12:03pm 06/29/2017 3:30pm Lactic Acid Level 13.1 MG/DL 4.5-19.8 06/29/2017 1:00pm 06/29/2017 1: 47pm Human Chorionic Gonadotropin, Qual NEGATIVE NEGATIVE 06/29/2017 1: 00pm 06/29/2017 1:46pm Hepatitis Be Antigen Negative Negative 06/30/2017 5:53am 07/02/2017 3 :55pm Performed at: [address] [id number] Low Vision Therapist: Robles Samayoa MD, Phone: [phone] White Blood Count 4.94 x10e3/uL 4.8-10.8 07/03/2017 5:49am 07/03/2017 6 :24am Red Blood Count 3.34 x10e6/uL L 3.6-5.1 07/03/2017 5:49am 07/03/2017 6: 24am Hemoglobin 9.4 g/dL L 12.0-16.0 07/03/2017 5:49am 07/03/2017 6:24am Hematocrit 31.1 % L 34.2-44.1 07/03/2017 5:49am 07/03/2017 6:24am Mean Corpuscular Volume 93.1 fL 81-99 07/03/2017 5:49am 07/03/2017 6: 24am Mean Corpuscular Hemoglobin 28.1 pg 28-32 07/03/2017 5:49am 07/03/2017 6:24am Mean Corpuscular Hemoglobin Concent 30.2 g/dL L 31-35 07/03/2017 5:49am 07/03/2017 6:24am Red Cell Distribution Width 17.2 % H 11.7-14.4 07/03/2017 5:49am 2017 6:24am Platelet Count 122 x10e3/uL L 140-360 07/03/2017 5:49am 07/03/2017 6: 24am Neutrophils (%) (Auto) 58.7 % 38.7-80.0 07/03/2017 5:49am 07/03/2017 6: 24am Lymphocytes (%) (Auto) 30.6 % 18.0-39.1 07/03/2017 5:49am 07/03/2017 6: 24am Monocytes (%) (Auto) 5.7 % 4.4-11.3 07/03/2017 5:49am 07/03/2017 6: 24am Eosinophils (%) (Auto) 3.8 % 0.0-6.0 07/03/2017 5:49am 07/03/2017 6: 24am Basophils (%) (Auto) 0.8 % 0.0-1.0 07/03/2017 5:49am 07/03/2017 6:24am IM GRANULOCYTES % 0.4 % 0.0-1.0 07/03/2017 5:49am 07/03/2017 6:24am Neutrophils # (Auto) 2.9 2.1-6.9 07/03/2017 5:49am 07/03/2017 6:24am Lymphocytes # (Auto) 1.5 1.0-3.2 07/03/2017 5:49am 07/03/2017 6:24am Monocytes # (Auto) 0.3 0.2-0.8 07/03/2017 5:49am 07/03/2017 6:24am Eosinophils # (Auto) 0.2 0.0-0.4 07/03/2017 5:49am 07/03/2017 6:24am Basophils # (Auto) 0.0 0.0-0.1 07/03/2017 5:49am 07/03/2017 6:24am Absolute Immature Granulocyte (auto 0.02 x10e3/uL 0-0.1 07/03/2017 5: 49am 07/03/2017 6:24am Prothrombin Time 17.4 seconds H 11.9-14.5 07/02/2017 3:35pm 07/02/2017 4 :01pm Prothromb Time International Ratio 1.54 07/02/2017 3:35pm 2017 4:01pm Oral Anticoagulant Therapy INR Values: 1. Low Intensity Therapy 1.5 - 2.0 2. Moderate Intensity Therapy 2.0 - 3.0 3. High Intensity Therapy(1) 2.5 - 3.5 4. High Intensity Therapy(2) 3.0 - 4.0 5. Panic Value INR > 5.0 Activated Partial Thromboplast Time 50.4 seconds H 23.8-35.5 07/02/2017 3 :35pm 07/02/2017 4:01pm D-Dimer Quantitative (PE/DVT) 0.41 ug/mLFEU 0.00-0.45 07/02/2017 3:35pm 07/02/2017 7:02pm As with all in vitro diagnostic tests, the test results should be interpreted by the physician in conjunction with clinical findings and other test results. Test results are reported in NEW D-dimer units(ug/mLFEU). Urine Color RED H YELLOW 07/04/2017 7:00am 07/04/2017 8:40am Urine Clarity TURBID H CLEAR 07/04/2017 7:00am 07/04/2017 8:40am Urine Specific [place] 1.015 1.010-1.025 07/04/2017 7:00am 2017 8:40am Urine pH 6.5 5 - 7 07/04/2017 7:00am 07/04/2017 8:40am Urine Leukocyte Esterase 1+ H NEGATIVE 07/04/2017 7:00am 07/04/2017 8: 40am Urine Nitrite NEGATIVE NEGATIVE 07/04/2017 7:00am 07/04/2017 8:40am Urine Protein 3+ H NEGATIVE 07/04/2017 7:00am 07/04/2017 8:40am Urine Glucose (UA) NEGATIVE NEGATIVE 07/04/2017 7:00am 07/04/2017 8: 40am Urine Ketones NEGATIVE NEGATIVE 07/04/2017 7:00am 07/04/2017 8:40am Urine Urobilinogen 0.2 mg/dL 0.2 - 1 07/04/2017 7:00am 07/04/2017 8: 40am Urine Bilirubin NEGATIVE NEGATIVE 07/04/2017 7:00am 07/04/2017 8: 40am Urine Blood 4+ H NEGATIVE 07/04/2017 7:00am 07/04/2017 8:40am Urine WBC 6-10 /HPF H 0-5 07/04/2017 7:00am 07/04/2017 8:41am Urine RBC >50 /HPF H 0-5 07/04/2017 7:00am 07/04/2017 8:41am Urine Bacteria MODERATE /HPF H NONE 07/04/2017 7:00am 07/04/2017 8:41am Urine Epithelial Cells NONE /LPF NONE 07/04/2017 7:00am 07/04/2017 8: 41am Sodium Level 135 mmol/L L 136-145 07/03/2017 5:49am 07/03/2017 7:01am Potassium Level 4.7 mmol/L 3.5-5.1 07/03/2017 5:49am 07/03/2017 7:01am Chloride Level 102 mmol/L 98-107 07/03/2017 5:49am 07/03/2017 7:01am Carbon Dioxide Level 22 mmol/L -07/03/2017 5:49am 07/03/2017 7: 01am Anion Gap 15.7 mmol/L 8-07/03/2017 5:49am 07/03/2017 7:01am Blood Urea Nitrogen 32 mg/dL H 707/03/2017 5:49am 07/03/2017 7:01am Creatinine 3.52 mg/dL H 0.57-1.11 07/03/2017 5:49am 07/03/2017 7:01am BUN/Creatinine Ratio 9 6-07/03/2017 5:49am 07/03/2017 7:01am Estimat Glomerular Filtration Rate 19 ML/MIN L 60- 07/03/2017 5:49am 7:01am Ranges were taken from the National Kidney Disease Education Program and the National Kid[employer] Foundation literature. Reference ranges: 60 or greater: Normal 16-59 (for 3 consecutive months): Chronic kidney disease 15 or less: Kidney failure Glucose Level 116 mg/dL 74-118 07/03/2017 5:49am 07/03/2017 7:01am Calcium Level 8.5 mg/dL 8.4-10.2 07/03/2017 5:49am 07/03/2017 7:01am Bedside Glucose 326 mg/dL H 70-120 07/04/2017 11:32am 07/04/2017 11: 54am Meter ID: [id number] Phosphorus Level 5.3 MG/DL H 2.3-4.7 07/02/2017 3:35pm 07/02/2017 7: 01pm Magnesium Level 1.6 MG/DL 1.3-2.1 07/02/2017 3:35pm 07/02/2017 7:01pm Total Bilirubin 0.5 mg/dL 0.2-1.2 07/03/2017 5:49am 07/03/2017 7:01am Aspartate Amino Transf (AST/SGOT) 22 IU/L 5-34 07/03/2017 5:49am 2017 7:01am Alanine Aminotransferase (ALT/SGPT) 13 IU/L 0-55 07/03/2017 5:49am 7:01am Total Protein 6.8 g/dL 6.5-8.1 07/03/2017 5:49am 07/03/2017 7:01am Albumin 2.7 g/dL L 3.5-5.0 07/03/2017 5:49am 07/03/2017 7:01am Globulin 4.1 g/dL H 2.3-3.5 07/03/2017 5:49am 07/03/2017 7:01am Albumin/Globulin Ratio 0.7 L 0.8-2.0 07/03/2017 5:49am 07/03/2017 7: 01am Alkaline Phosphatase 152 IU/L H 40-150 07/03/2017 5:49am 07/03/2017 7: 01am B-Type Natriuretic Peptide 3239.1 pg/mL H 0-100 07/02/2017 3:35pm 2017 4:12pm Creatine Kinase 75 IU/L 29-168 07/03/2017 8:44pm 07/03/2017 9:16pm Creatine Kinase MB 3.00 ng/mL 0-5.0 07/03/2017 8:44pm 07/03/2017 9: 16pm Troponin I 0.002 ng/mL 0-0.300 07/03/2017 8:44pm 07/03/2017 9:16pm Hepatitis B Surface Antibody, Quant 453.4 mIU/mL Immunity>9.9 2017 6:00am 07/04/2017 10:14am Status of Immunity Anti- HBs Level Inconsistent with Immunity 0.0 - 9.9 Consistent with Immunity >9.9 Hepatitis B Core Total Antibody Negative Negative 07/03/2017 6:00am 07/04/2017 10:14am Performed at: - [facility] [id number] Low Vision Therapist: Robles Samayoa MD, Phone: [phone] Hepatitis B Surface Antigen Negative Negative 07/03/2017 6:00am 07/04 10:14am Microbiology Results Procedure Source Organism/Result Collection Date/Time Result Date/Time Result Status Urine Culture Urine,Catheterized MARIUSZ GLABRATA 02/03/2017 1:00pm 2016 10:06am Final Urine Culture Urine,Clean Catch ESCHERICHIA COLI 03/30/2017 12:00am 2016 10:48am Final Urine Culture Urine,Random MARIUSZ GLABRATA 04/11/2017 3:00pm 04/16/2017 6 :14am Final Blood Culture Blood NO GROWTH AFTER 72 HOURS 1:45pm 07/02/2017 2:54pm Preliminary Urine Culture Urine,Gonzalez Port ENTEROCOCCUS SPECIES 07/02/2017 6:03pm 6:41am Preliminary Procedures Procedure Status Date Provider(s) INSERTION [...] REMOVAL OF INFUSION DEVICE FROM UPPER VEIN, BOOKS SALESPERSON APPROACH Completed HANK SALMERON MD, SALMAN INSERT [...] US abdomen complete Active 04/05/17 UVALDO TERRY NP X-ray of chest, single view Active 04/16/[address] of abdomen and pelvis without contrast Active 04/17/17 AMELIA COPPOLA X-ray of chest, single view Active 05/30/[address] of abdomen and pelvis without contrast Active 06/05/[address] of abdomen and pelvis without contrast Active 06/29/17 INA ELIAS US abdomen complete Active 06/30/17 UVALDO TERRY NP Encounters Encounter Location Arrival/Admit Date Discharge/Depart Date Attending Provider Discharged Inpatient [facility] 07/02/17 7:25pm 07/04/17 2:44pm JOHN BAHENA MD Discharged Inpatient [facility] 06/29/17 2:54pm 06/30/17 4:18pm JOHN BAHENA MD Discharged Inpatient (obs) [facility] 06/25/17 7:26pm 6:25pm JOHN BAHENA MD Departed Emergency Room [facility] 06/06/17 1:25pm 4:10am MIREILLE AMOR MD Departed Emergency Room [facility] 06/05/17 10:35am 06/05 5:53pm RY DRAPER MD Discharged Inpatient [facility] 05/30/17 9:24pm 06/03/17 6:37pm JOHN BAHENA MD Departed Emergency Room [facility] 04/16/17 1:31pm 3:00am MIREILLE AMOR MD Departed Emergency Room [facility] 04/14/17 12:59pm 04/14 3:33pm CAHD ENAMORADO MD Discharged [facility]patient [facility] [...]
--- NOTE | 2017-07-05 09:00 | Diagnostic Imaging Report ---
PROCEDURE: CHEST SINGLE (PORTABLE) COMPARISON: 07/03/2017. INDICATIONS: VOMITING BLOOD FINDINGS: Lung volumes are low. Hazy bilateral interstitial opacities unchanged relative to 07/03/2017. Unchanged position of left chest port catheter and right internal jugular tunneled hemodialysis catheter. Left chest wall implantable cardiac device is also unchanged. Stable cardiomediastinal contour. No acute osseous abnormality. CONCLUSION: Low lung volumes with interstitial edema, similar in degree to that noted on 07/03/2017. Dictated by: Arjun Villeda M.D. on 07/05/2017 at 9:00 Electronically approved by: Arjun Villeda M.D. on 07/05/2017 at 9:00
[2017-07-05 09:29] LABS: BASOPHILS % 0.5 % (0.0-1.0); EOSINOPHILS # (AUTO) 0.2 (0.0-0.4); EOSINOPHILS % 3.9 % (0.0-6.0); HEMATOCRIT 32.3 % (34.2-44.1); HEMOGLOBIN 9.6 g/dL (12.0-16.0); LYMPHOCYTES # (AUTO) 0.8 (1.0-3.2); LYMPHOCYTES % 17.8 % (18.0-39.1); MEAN CORPUSCULAR HEMOGLOBIN 27.7 pg (28-32); MEAN CORPUSCULAR HGB CONC 29.7 g/dL (31-35); MEAN CORPUSCULAR VOLUME 93.1 fL (81-99); MONOCYTES # (AUTO) 0.2 (0.2-0.8); MONOCYTES % 4.3 % (4.4-11.3); NEUTROPHILS # (AUTO) 3.2 (2.1-6.9); PLATELET COUNT 125 x10e3/uL (140-360); RED BLOOD COUNT 3.47 x10e6/uL (3.6-5.1); RED CELL DISTRIBUTION WIDTH 17.9 % (11.7-14.4)
[2017-07-05 09:47] LABS: INR 1.39
[2017-07-05] MEDS ORDERED: PROMETHAZINE HCL (IM) 25 MG/ML VIAL IV STA (09:47)
[2017-07-05] MEDS ORDERED: MORPHINE SULFATE 4 MG/ML SYR IV STA (09:47)
[2017-07-05 09:48] LABS: PARTIAL THROMBOPLASTIN TIME 31.8 seconds (23.8-35.5)
[2017-07-05 09:52] LABS: BILIRUBIN,URINE NEGATIVE (NEGATIVE); KETONES,URINE NEGATIVE (NEGATIVE); LEUKOCYTE ESTERASE ,URINE 2+ (NEGATIVE); NITRITE,URINE NEGATIVE (NEGATIVE); PROTEIN,URINE DIPSTICK 3+ (NEGATIVE); URINE UROBILINOGEN 0.2 mg/dL (0.2 - 1)
[2017-07-05 09:56] LABS: ALANINE AMINOTRANSFERASE 9 IU/L (0-55); ALBUMIN 2.8 g/dL (3.5-5.0); ALBUMIN/GLOBULIN RATIO 0.7 (0.8-2.0); ALKALINE PHOSPHATASE 132 IU/L (40-150); ANION GAP 14.9 mmol/L (8-16); BLOOD UREA NITROGEN 25 mg/dL (7-26); BUN/CREATININE RATIO 7 (6-25); CALCIUM 8.1 mg/dL (8.4-10.2); CARBON DIOXIDE 23 mmol/L (22-29); CHLORIDE 104 mmol/L (98-107); CREATINE KINASE 117 IU/L (29-168); CREATININE, SERUM 3.54 mg/dL (0.57-1.11); EST GLOMERULAR FILTRATION RATE 18 ML/MIN (60-); GLUCOSE 301 mg/dL (74-118); LIPASE 29 U/L (8-78); MAGNESIUM 1.8 MG/DL (1.3-2.1); POTASSIUM 3.9 mmol/L (3.5-5.1); SODIUM 138 mmol/L (136-145)
[2017-07-05 09:56] LABS: AMPHETAMINES SCREEN,URINE NEGATIVE (NEGATIVE); BENZODIAZEPINES SCREEN,URINE POSITIVE (NEGATIVE); PHENCYCLIDINE SCREEN,URINE NEGATIVE (NEGATIVE)
[2017-07-05] MEDS ORDERED: SODIUM CHLORIDE 0.9% 1000ML 1,000 ML IV SCH (09:59)
[2017-07-05] MEDS ORDERED: PROMETHAZINE 25MG/SOD CHL 0.9% 50 ML IV NR (10:00)
[2017-07-05] MEDS ORDERED: MORPHINE SULFATE 2 MG/ML SYR IV NR (10:00)
[2017-07-05] MEDS ORDERED: ONDANSETRON HCL INJ 2 MG/ML VIAL IV PRN (10:00)
[2017-07-05] MEDS ORDERED: PROMETHAZINE 12.5MG/ NACL 0.9% 50 ML IV NR (10:00)
[2017-07-05] MEDS ORDERED: DEXTROSE 50% SYRINGE 50 ML IV PRN (10:00)
[2017-07-05] MEDS ORDERED: DIPHENHYDRAMINE HCL INJ 50 MG/ML VIAL IV ONE (10:00)
[2017-07-05 10:11] LABS: CLARITY,URINE CLOUDY (CLEAR); COLOR,URINE YELLOW (YELLOW)
[2017-07-05 10:12] LABS: BACTERIA,URINE FEW /HPF; EPITHELIAL CELLS,URINE FEW /LPF; YEAST,URINE FEW
[2017-07-05 10:13] LABS: AMORPHOUS SEDIMENT,URINE RARE (FEW)
[2017-07-05 10:17] LABS: THYROID STIMULATING HORMONE 1.112 uIU/mL (0.350-4.940)
[2017-07-05] MEDS ORDERED: CEFTRIAXONE SOD 1 GM VIAL IM ONE (10:30)
[2017-07-05] MEDS ORDERED: HEPARIN 500 UNITS/5ML MDV INJ PRN (10:45)
[2017-07-05] MEDS ORDERED: CEFTRIAXONE SOD 1 GM VIAL IV SCH ×2 (10:45→11:00)
[2017-07-05] MEDS ORDERED: PANTOPRAZOLE 40 MG 10ML VIAL IV SCH (11:00)
[2017-07-05] MEDS ORDERED: INSULIN REGULAR, HUMAN 100 UNIT/1 ML 3ML VIAL SQ SCH (11:30)
[2017-07-05] MEDS ORDERED: METRONIDAZOLE 500MG/NS 100ML 100 ML IV SCH (12:00)
== END 2017-07-05 11:10 | disposition home or self-care (01) ==
LOC: ER 07:44
DX: R10.11 Right upper quadrant pain (principal); R10.84 Generalized abdominal pain; R11.2 Nausea with vomiting, unspecified; R19.7 Diarrhea, unspecified; R30.0 Dysuria; N30.90 Cystitis, unspecified without hematuria; N18.3 Chronic kidney disease, stage 3 (moderate)
CPT/HCPCS: 36415; 71045; 80053; 80185; 80307; 81001; 82550; 82553; 83690; 83735; 83880; 84443; 84484; 84702; 85025; 85610; 85730; 87086; 93005; 99284; J1200; J2270; J2550

== ENCOUNTER 2017-07-07 13:59 | Inpatient (IN) | payer OTHER ==
[~2017-07-07] VITALS: Ht 160 cm; Wt 56.2 kg
--- OUTSIDE RECORDS SUMMARY | 2017-07-07 14:05 | XMS REPORT | Continuity of Care Document ---
Author Author [facility] Organization [facility] Address [address] [place] [address] Phone Unavailable Care Team Providers Care Crusher Screen Repairer Name Role Phone JOHN BAHENA MD PCP Insurance Providers Guarantor Sonam Bermeo Address [address] [place] [address] Email [email or web address] Payer [place] Medicaid Policy Number [id number] Subscriber's Name Jean-ClaudeSonam Pearson Relationship 18 Self / Same As Patient Group Number [id number] Group Name [id number] Effective Date 16 Advance Directives Directive Response Recorded Date/Time Does the patient have an advance directive? No 07/02/17 12:00am If yes, is advance directive on file with [facility]? No 07/02/17 12:00am If not on file with [facility] will patient provide a copy? No 07/02/17 12:00am Do you have a Directive to Physician? No 07/05/17 7:59am Do you have a Medical Power of Cab Starter? No 07/05/17 7:59am Do you have an out of hospital Do Not Resuscitate Order? No 07/05/17 7:59am Do you have any special needs we should be aware of? No 07/05/17 7:59am Do you have a support person here with you today? Yes 07/05/17 7:59am Did patient receive Notice of Privacy Practices? Yes 07/05/17 7:59am Did patient receive patient rights and responsibilities? Yes 07/05/17 7:59am Problems Medical Problem Onset Date Status Abdominal [...] 30 Days 06/03/17 Fluticasone Propionate 1 Ea [place] 0 Ea Nasal Twice A Day 30 [...] And At Bedtime 30 Days 06/03/17 Ipratropium Busy 0.2 Mg/1 Ml Solution 2.5 Ml Nebullizer [...] Oral Twice Daily Before Meals 30 Days 03/15/18 Phenytoin Sodium Extended (Dilantin) 100 Mg Capsule [...] Mg Oral Every 7 Days Discontinued Butalb/Acetaminophen/Caffeine (Powwrx-Avrgoyeu-Dadl 50-325-40) 1 Each Tablet, Every 6 Hours [...] Once 06/30/17 Discontinued Fluticasone Propionate 1 Ea Redwood, 1 Ea Nasal Twice A Day 06/13/16 [...] needed for Pain And Temperature 11/09/15 Discontinued [id number] 30 Mg Tabcr, 30 Mg Oral Daily [...] information available. Plan of Care Discharge Date 07/05/17 11:10am Disposition HOME, SELF-CARE Condition at Discharge Stable Instructions/Education Provided Kidney Failure Urinary Tract Infection - Women Forms Provided Work/School Excuse Prescriptions See Medication Section Referrals JOHN BAHENA MD Address: [address] [facility] [address] [place], [place] [id number] ANGELES AVENDAÑO M.D. Address: [address] [address] [place], [place] [id number] Additional Instructions/Education follow up with pcp for next available HD appointment Functional Status No functional status information available. [...] 07/04/2017 12:00pm Height 5 ft 3 in 07/05/2017 8:02am Weight 150 lb 07/05/2017 8:02am Body Mass Index 26.6 kg/m^2 07/05/2017 8:02am Results Laboratory Results Test Name Result Units Flags Reference Collection Date/Time Result Date/ Time Comments Reactive Lymphocytes 1 01/24/2017 6:19am 01/24/2017 8:25am Blast Cells % 1 01/24/2017 6:19am 01/24/2017 8:25am Clostridium Difficile Toxin A & B NEGATIVE NEGATIVE 01/31/2017 2:30am 01/31/2017 12:27pm Testing on stool aspirate specimens is outside centrifuge separator operator claims since specimen type not validated on this assay. Human Chorionic Gonadotropin, Quant < 1.20 mIU/mL 0-10 02/13/2017 7: 08pm 02/13/2017 7:50pm Differential Total Cells Counted 100 06/03/2017 5:50am [...] ng/mL H 4.63-204.00 06/01/2017 6:00am 06/01/2017 7:27am Hepatitis A IgM Antibody Negative 05/31/2017 6:15pm [...] with a HCV Nucleic Acid Amplification test ([id number]). [address] [address] Dir: Robles Samayoa MD For inquiries, the physician may contact Branch: [phone] Lab: [phone] Urine Test NEGATIVE NEGATIVE 06/06/2017 5:15pm 06/06/2017 7 :22pm Amylase Level 69 U/L 25-125 06/06/2017 11:30pm 06/06/2017 11:53pm Phospholipids Level 225 06/06/2017 11:30pm 06/12/2017 12:42pm Reference Range:150 - 250 mg/dL Results for this test are for research purposes only by the assay's centrifuge separator operator. The performance characteristics of this product have not been established. Results should not be used as a diagnostic procedure without confirmation of the diagnosis by another medically established diagnostic product or procedure. Testing performed by: [facility] [id number] Dir. Santana Salmeron MD Stool Occult Blood POSITIVE H NEGATIVE 06/06/2017 11:30pm 06/06/2017 11:41pm Iron Level 111 ug/dL 50-170 06/27/2017 5:00am 06/27/2017 7:00am Total Iron Binding Capacity 179 ug/dL L 261-478 06/27/2017 5:00am 2017 7:00am Percent Iron Saturation 62 % H 15-50 06/27/2017 5:00am 06/27/2017 7: 00am Transferrin 128 mg/dL L 180-382 06/27/2017 5:00am 06/27/2017 7:00am Urine Mucus MODERATE H RARE 06/29/2017 12:03pm 06/29/2017 3:30pm Lactic Acid Level 13.1 MG/DL 4.5-19.8 06/29/2017 1:00pm 06/29/2017 1: 47pm Hepatitis Be Antigen Negative Negative 06/30/2017 5:53am 07/02/2017 3 :55pm Performed at: [facility] [address] [id number] Machine Coil Assembler: Robles Samayoa MD, Phone: [phone] D-Dimer Quantitative (PE/DVT) 0.41 ug/mLFEU 0.00-0.45 07/02/2017 3:35pm 07/02/2017 7:02pm As with all in vitro diagnostic tests, the test results should be interpreted by the physician in conjunction with clinical findings and other test results. Test results are reported in NEW D-dimer units(ug/mLFEU). Bedside Glucose 326 mg/dL H 70-120 07/04/2017 11:32am 07/04/2017 11: 54am Meter ID: [id number] Phosphorus Level 5.3 MG/DL H 2.3-4.7 07/02/2017 3:35pm 07/02/2017 7: 01pm Hepatitis B Surface Antibody, Quant 453.4 mIU/mL Immunity>9.9 2017 6:00am 07/04/2017 10:14am Status of Immunity Anti- HBs Level Inconsistent with Immunity 0.0 - 9.9 Consistent with Immunity >9.9 Hepatitis B Core Total Antibody Negative Negative 07/03/2017 6:00am 07/04/2017 10:14am Performed at: [facility] [address] [id number] Machine Coil Assembler: Robles Samayoa MD, Phone: [phone] Hepatitis B Surface Antigen Negative Negative 07/03/2017 6:00am 07/04 10:14am White Blood Count 4.39 x10e3/uL L 4.8-10.8 07/05/2017 9:10a07/05/2017 9:40am Red Blood Count 3.47 x10e6/uL L 3.6-5.1 07/05/2017 9:10am 07/05/2017 9: 40am Hemoglobin 9.6 g/dL L 12.0-16.0 07/05/2017 9:10a07/05/2017 9:40am Hematocrit 32.3 % L 34.2-44.1 07/05/2017 9:10a07/05/2017 9:40am Mean Corpuscular Volume 93.1 fL 81-99 07/05/2017 9:10a07/05/2017 9: 40am Mean Corpuscular Hemoglobin 27.7 pg L 28-32 07/05/2017 9:10a2017 9:40am Mean Corpuscular Hemoglobin Concent 29.7 g/dL L 31-35 07/05/2017 9:10a07/05/2017 9:40am Red Cell Distribution Width 17.9 % H 11.7-14.4 07/05/2017 9:10a2017 9:40am Platelet Count 125 x10e3/uL L 140-360 07/05/2017 9:10a07/05/2017 9: 40am Neutrophils (%) (Auto) 73.0 % 38.7-80.0 07/05/2017 9:10am 07/05/2017 9: 40am Lymphocytes (%) (Auto) 17.8 % L 18.0-39.1 07/05/2017 9:10a07/05/2017 9 :40am Monocytes (%) (Auto) 4.3 % L 4.4-11.3 07/05/2017 9:10am 07/05/2017 9: 40am Eosinophils (%) (Auto) 3.9 % 0.0-6.0 07/05/2017 9:10a07/05/2017 9: 40am Basophils (%) (Auto) 0.5 % 0.0-1.0 07/05/2017 9:10a07/05/2017 9:40am IM GRANULOCYTES % 0.5 % 0.0-1.0 07/05/2017 9:10a07/05/2017 9:40am Neutrophils # (Auto) 3.2 2.1-6.9 07/05/2017 9:10a07/05/2017 9:40am Lymphocytes # (Auto) 0.8 L 1.0-3.2 07/05/2017 9:10am 07/05/2017 9: 40am Monocytes # (Auto) 0.2 0.2-0.8 07/05/2017 9:10a07/05/2017 9:40am Eosinophils # (Auto) 0.2 0.0-0.4 07/05/2017 9:10a07/05/2017 9:40am Basophils # (Auto) 0.0 0.0-0.1 07/05/2017 9:10a07/05/2017 9:40am Absolute Immature Granulocyte (auto 0.02 x10e3/uL 0-0.1 07/05/2017 9: 10a07/05/2017 9:40am Prothrombin Time 16.0 seconds H 11.9-14.5 07/05/2017 9:10am 07/05/2017 9 :48am Prothromb Time International Ratio 1.39 07/05/2017 9:10a2017 9:48am Oral Anticoagulant Therapy INR Values: 1. Low Intensity Therapy 1.5 - 2.0 2. Moderate Intensity Therapy 2.0 - 3.0 3. High Intensity Therapy(1) 2.5 - 3.5 4. High Intensity Therapy(2) 3.0 - 4.0 5. Panic Value INR > 5.0 Activated Partial Thromboplast Time 31.8 seconds 23.8-35.5 07/05/2017 9: 10am 07/05/2017 9:48am Urine Color YELLOW YELLOW 07/05/2017 8:45am 07/05/2017 10:11am Urine Clarity CLOUDY H CLEAR 07/05/2017 8:45am 07/05/2017 10:11am Urine Specific Ellerbe 1.015 1.010-1.025 07/05/2017 8:45am 2017 10:11am Urine pH 6 5 - 7 07/05/2017 8:45am 07/05/2017 10:11am Urine Leukocyte Esterase 2+ H NEGATIVE 07/05/2017 8:45am 07/05/2017 10 :11am Urine Nitrite NEGATIVE NEGATIVE 07/05/2017 8:45am 07/05/2017 10:11am Urine Protein 3+ H NEGATIVE 07/05/2017 8:45am 07/05/2017 10:11am Urine Glucose (UA) TRACE H NEGATIVE 07/05/2017 8:45am 07/05/2017 10: 11am Urine Ketones NEGATIVE NEGATIVE 07/05/2017 8:45am 07/05/2017 10:11am Urine Opiates Screen POSITIVE H NEGATIVE 07/05/2017 8:45am 07/05/2017 9:57am This test provides only a screen. Positive results should be repeated by a confirmatory test. Urine Barbiturates Screen POSITIVE H NEGATIVE 07/05/2017 8:45am 2017 9:57am This test provides only a screen. Positive results should be repeated by a confirmatory test. Urine Phencyclidine Screen NEGATIVE NEGATIVE 07/05/2017 8:45am 2017 9:57am Urine Amphetamines Screen NEGATIVE NEGATIVE 07/05/2017 8:45am 2017 9:57am Urine Methamphetamines Screen NEGATIVE NEGATIVE 07/05/2017 8:45am 9:57am Urine Benzodiazepines Screen POSITIVE H NEGATIVE 07/05/2017 8:45am 9:57am This test provides only a screen. Positive results should be repeated by a confirmatory test. Urine Cocaine Screen NEGATIVE NEGATIVE 07/05/2017 8:45am 07/05/2017 9 :57am Urine Cannabinoids Screen NEGATIVE NEGATIVE 07/05/2017 8:45am 2017 9:57am THESE RESULTS ARE FOR MEDICAL TREATMENT ONLY *THIS REPORT CONTAINS UNCONFIRMED SCREENING RESULTS* POSITIVE RESULTS WILL BE CONFIRMED BY REFERENCE LAB UPON REQUEST CUT-OFF DRUG CLASS CONCENTRATION ng/mL Amphetamines 1000 Methamphetamines 1000 Cocaine 300 Opiate 300 Phencyclidine 25 Cannabinoid 50 Barbiturates 300 Benzodiazepine 300 Methadone 300 Urine Methadone Screen NEGATIVE NEGATIVE 07/05/2017 8:45am 2017 9:57am THESE RESULTS ARE FOR MEDICAL TREATMENT ONLY *THIS REPORT CONTAINS UNCONFIRMED SCREENING RESULTS* POSITIVE RESULTS WILL BE CONFIRMED BY REFERENCE LAB UPON REQUEST CUT-OFF DRUG CLASS CONCENTRATION ng/mL Amphetamines 1000 Methamphetamines 1000 Cocaine Metabolite 300 Opiate 300 Phencyclidine 25 Cannabinoid 50 Barbiturates 300 Benzodiazepine 300 Methadone 300 Urine Urobilinogen 0.2 mg/dL 0.2 - 1 07/05/2017 8:45am 07/05/2017 10: 11am Urine Bilirubin NEGATIVE NEGATIVE 07/05/2017 8:45am 07/05/2017 10: 11am Urine Blood 3+ H NEGATIVE 07/05/2017 8:45am 07/05/2017 10:11am Urine WBC 11-20 /HPF H 0-5 07/05/2017 8:45am 07/05/2017 10:13am Urine RBC 11-20 /HPF H 0-5 07/05/2017 8:45am 07/05/2017 10:13am Urine Bacteria FEW /HPF NONE 07/05/2017 8:45am 07/05/2017 10:13am Urine Epithelial Cells FEW /LPF NONE 07/05/2017 8:45am 07/05/2017 10: 13am Urine Amorphous Sediment RARE FEW 07/05/2017 8:45am 07/05/2017 10: 13am Urine Yeast FEW H NONE 07/05/2017 8:45am 07/05/2017 10:13am Sodium Level 138 mmol/L 136-145 07/05/2017 9:10am 07/05/2017 9:57am Potassium Level 3.9 mmol/L 3.5-5.1 07/05/2017 9:10am 07/05/2017 9:57am Chloride Level 104 mmol/L 98-107 07/05/2017 9:10am 07/05/2017 9:57am Carbon Dioxide Level 23 mmol/L -07/05/2017 9:10am 07/05/2017 9: 57am Anion Gap 14.9 mmol/L 8-07/05/2017 9:10am 07/05/2017 9:57am Blood Urea Nitrogen 25 mg/dL 7-07/05/2017 9:10am 07/05/2017 9:57am Creatinine 3.54 mg/dL H 0.57-1.11 07/05/2017 9:07/05/2017 9:57am BUN/Creatinine Ratio 7 6-25 07/05/2017 9:07/05/2017 9:57am Estimat Glomerular Filtration Rate 18 ML/MIN L 60- 07/05/2017 9: 9:57am Ranges were taken from the National Kidney Disease Education Program and the National Kidney Foundation literature. Reference ranges: 60 or greater: Normal 16-59 (for 3 consecutive months): Chronic kidney disease 15 or less: Kidney failure Glucose Level 301 mg/dL H 74-118 07/05/2017 9:07/05/2017 9:57am Calcium Level 8.1 mg/dL L 8.4-10.2 07/05/2017 9:07/05/2017 9:57am Magnesium Level 1.8 MG/DL 1.3-2.1 07/05/2017 9:07/05/2017 9:57am Total Bilirubin 0.3 mg/dL 0.2-1.2 07/05/2017 9:07/05/2017 9:57am Aspartate Amino Transf (AST/SGOT) 8 IU/L 5-34 07/05/2017 9:2017 9:57am Alanine Aminotransferase (ALT/SGPT) 9 IU/L 0-55 07/05/2017 9:07/05 9:57am Total Protein 7.1 g/dL 6.5-8.1 07/05/2017 9:07/05/2017 9:57am Albumin 2.8 g/dL L 3.5-5.0 07/05/2017 9:07/05/2017 9:57am Globulin 4.3 g/dL H 2.3-3.5 07/05/2017 9:07/05/2017 9:57am Albumin/Globulin Ratio 0.7 L 0.8-2.0 07/05/2017 9:07/05/2017 9: 57am Alkaline Phosphatase 132 IU/L 40-150 07/05/2017 9:07/05/2017 9: 57am B-Type Natriuretic Peptide 1451.8 pg/mL H 0-100 07/05/2017 9:10am 2017 9:58am Creatine Kinase 117 IU/L 29-168 07/05/2017 9:10am 07/05/2017 9:57am Creatine Kinase MB 4.00 ng/mL 0-5.0 07/05/2017 9:10am 07/05/2017 10: 17am Troponin I < 0.001 ng/mL 0-0.300 07/05/2017 9:10am 07/05/2017 10:17am Lipase 29 U/L 8-78 07/05/2017 9:10am 07/05/2017 9:57am Thyroid Stimulating Hormone (TSH) 1.112 uIU/mL 0.350-4.940 07/05/2017 9: 10am 07/05/2017 10:17am Human Chorionic Gonadotropin, Qual NEGATIVE NEGATIVE 07/05/2017 9: 10am 07/05/2017 9:45am Phenytoin (Dilantin) Level 1.44 ug/mL L 10-20 07/05/2017 9:10am 2017 9:58am Microbiology Results Procedure Source Organism/Result Collection Date/Time Result Date/Time Result Status Urine Culture Urine,Catheterized MARIUSZ GLABRATA 02/03/2017 1:00pm 2016 10:06am Final Urine Culture Urine,Clean Catch ESCHERICHIA COLI 03/30/2017 12:00am 2016 10:48am Final Urine Culture Urine,Random MARIUSZ GLABRATA 04/11/2017 3:00pm 04/16/2017 6 :14am Final Blood Culture Blood NO GROWTH AFTER 5 DAYS, FINAL REPORT 06/29/2017 1:45pm 07/04/2017 2:54pm Final Urine Culture Urine,[place] ENTEROCOCCUS FAECIUM-VRE 07/02/2017 6:03pm 07/05/2017 8:19am Final Procedures Procedure Status Date Provider(s) INSERTION [...] REMOVAL OF INFUSION DEVICE FROM UPPER VEIN, CUSTOMER LEADER APPROACH Completed HANK SALMERON MD, SALMAN INSERT [...] Discharge/Depart Date Attending Provider Departed Emergency Room [facility] 07/05/17 7:44am 11:10am INA ELIAS Discharged Inpatient [facility] 07/02/17 7:25pm 07/04/17 2:44pm JOHN BAEHNA MD Discharged Inpatient [facility] 06/29/17 2:54pm 06/30/17 4:18pm JOHN BAHENA [...] Med Center 04/14/17 12:59pm 04/14 3:33pm CHAD ENAMORAOD MD Discharged [facility]patient [facility] [...]
[2017-07-07] MEDS ORDERED: PROMETHAZINE HCL (IM) 25 MG/ML VIAL IM ONE (15:15)
[2017-07-07] MEDS ORDERED: SODIUM CHLORIDE 0.9% 50ML 50 ML ONE (15:39)
[2017-07-07 15:40] LABS: BILIRUBIN,URINE NEGATIVE (NEGATIVE); CLARITY,URINE CLOUDY (CLEAR); COLOR,URINE YELLOW (YELLOW); KETONES,URINE NEGATIVE (NEGATIVE); LEUKOCYTE ESTERASE ,URINE 2+ (NEGATIVE); NITRITE,URINE NEGATIVE (NEGATIVE); URINE UROBILINOGEN 0.2 mg/dL (0.2 - 1)
[2017-07-07 15:44] LABS: PROTEIN,URINE DIPSTICK 2+ (NEGATIVE)
[2017-07-07 15:56] LABS: EPITHELIAL CELLS,URINE FEW /LPF; RBC,URINE 0-5 /HPF (0-5); WBC,URINE (MAN) >50 /HPF (0-5); YEAST,URINE MODERATE
[2017-07-07] MEDS ORDERED: PROMETHAZINE 12.5MG/ NACL 0.9% 12.5 MG/50 ML BAG IV ONE (16:30)
[2017-07-07] MEDS ORDERED: CEFTRIAXONE SOD 1 GM VIAL IM ONE (17:15)
[2017-07-07] MEDS ORDERED: DIPHENHYDRAMINE HCL INJ 50 MG/ML VIAL ONE (17:20)
[2017-07-07 17:24] LABS: BASOPHILS % 0.6 % (0.0-1.0); EOSINOPHILS # (AUTO) 0.1 (0.0-0.4); EOSINOPHILS % 1.8 % (0.0-6.0); HEMATOCRIT 32.2 % (34.2-44.1); HEMOGLOBIN 9.7 g/dL (12.0-16.0); LYMPHOCYTES # (AUTO) 1.2 (1.0-3.2); LYMPHOCYTES % 24.6 % (18.0-39.1); MEAN CORPUSCULAR HEMOGLOBIN 27.7 pg (28-32); MEAN CORPUSCULAR HGB CONC 30.1 g/dL (31-35); MONOCYTES # (AUTO) 0.3 (0.2-0.8); MONOCYTES % 5.4 % (4.4-11.3); NEUTROPHILS # (AUTO) 3.4 (2.1-6.9); NEUTROPHILS % 67.2 % (38.7-80.0); PLATELET COUNT 177 x10e3/uL (140-360); RED CELL DISTRIBUTION WIDTH 17.9 % (11.7-14.4)
[2017-07-07 17:43] LABS: ALBUMIN 2.8 g/dL (3.5-5.0); ALBUMIN/GLOBULIN RATIO 0.7 (0.8-2.0); ANION GAP 17.6 mmol/L (8-16); CALCIUM 8.7 mg/dL (8.4-10.2); CREATININE, SERUM 3.99 mg/dL (0.57-1.11); POTASSIUM 4.6 mmol/L (3.5-5.1)
[2017-07-07] MEDS ORDERED: DIPHENHYDRAMINE HCL INJ 50 MG/ML VIAL IV ONE (17:45)
--- NOTE | 2017-07-07 17:50 | Diagnostic Imaging Report ---
EXAM: XR CHEST 1 VIEW DATE: 07/07/2017 5:22 PM INDICATION: Vomiting COMPARISON: 07/05/2017 FINDINGS: Lines and Tubes: Right IJ dialysis catheter tip overlying right atrium, left chest wall port with tip overlying cavoatrial junction, and percutaneous ICD stable. Heart and Mediastinum: Moderate cardiomegaly. Lungs and Pleura: Mild to moderate scattered airspace opacities. Bones and Soft Tissues: No acute findings. IMPRESSION: 1. Mild to moderate edema. Superimposed pneumonia not excluded. Signed by: Dr. Yunior Hudson MD on 07/07/2017 5:46 PM
[2017-07-07] MEDS ORDERED: MORPHINE SULFATE 2 MG/ML SYR IV ONE (18:00)
[2017-07-07] MEDS ORDERED: PROMETHAZINE HCL (IM) 25 MG/ML VIAL IV PRN (19:15)
[2017-07-07] MEDS ORDERED: MORPHINE SULFATE 2 MG/ML SYR IV PRN (19:15)
[2017-07-07] MEDS ORDERED: DIPHENHYDRAMINE HCL INJ 50 MG/ML VIAL IV PRN (19:15)
[2017-07-07] MEDS ORDERED: LORAZEPAM INJ 2 MG/ML VIAL IV ONE (20:00)
[2017-07-07 21:24] VITALS: BP 133/98
[2017-07-07 21:35] VITALS: BP 133/98
[2017-07-07 21:36] VITALS: BP 133/98
[2017-07-07 21:42] VITALS: BP 133/98
[2017-07-07] MEDS: LINEZOLID 600 MG/D5W 300ML 300 ML IV SCH (22:15)
[2017-07-07] MEDS ORDERED: DIPHENHYDRAMINE HCL 25 MG CAP PO PRN (22:15)
[2017-07-07] MEDS ORDERED: PROMETHAZINE HCL 25 MG SUPP PR PRN (22:15)
[2017-07-07] MEDS ORDERED: LABETALOL HCL 5 MG/ML 20ML VIAL IV PRN (22:30)
[2017-07-07] MEDS ORDERED: HYDRALAZINE HCL 20 MG/ML VIAL IV PRN (22:30)
[2017-07-07] MEDS ORDERED: SODIUM CHLORIDE 0.9% 250ML 250 ML ONE (22:59)
[2017-07-07] MEDS: METOCLOPRAMIDE HCL 10 MG/2ML VIAL IV SCH (23:20)
[2017-07-07] MEDS: MORPHINE SULFATE 2 MG/ML SYR IV PRN (23:20)
[2017-07-07] MEDS: PROMETHAZINE 12.5MG/ NACL 0.9% 12.5 MG/50 ML BAG IV PRN (23:20)
[2017-07-08] VITALS (7 sets, daily range): BP systolic 122–157; BP diastolic 84–110
[2017-07-08] MEDS: MORPHINE SULFATE 2 MG/ML SYR IV PRN ×4 (04:00→23:01)
[2017-07-08] MEDS: PROMETHAZINE 12.5MG/ NACL 0.9% 12.5 MG/50 ML BAG IV PRN ×4 (04:00→23:01)
[2017-07-08] MEDS: METOCLOPRAMIDE HCL 10 MG/2ML VIAL IV SCH ×4 (04:18→23:09)
[2017-07-08 04:20] LABS: BASOPHILS % 0.8 % (0.0-1.0); EOSINOPHILS # (AUTO) 0.1 (0.0-0.4); EOSINOPHILS % 1.8 % (0.0-6.0); HEMATOCRIT 33.9 % (34.2-44.1); HEMOGLOBIN 10.2 g/dL (12.0-16.0); LYMPHOCYTES # (AUTO) 1.9 (1.0-3.2); LYMPHOCYTES % 37.4 % (18.0-39.1); MEAN CORPUSCULAR HEMOGLOBIN 27.7 pg (28-32); MEAN CORPUSCULAR HGB CONC 30.1 g/dL (31-35); MEAN CORPUSCULAR VOLUME 92.1 fL (81-99); MONOCYTES # (AUTO) 0.2 (0.2-0.8); MONOCYTES % 4.2 % (4.4-11.3); NEUTROPHILS # (AUTO) 2.8 (2.1-6.9); NEUTROPHILS % 55.4 % (38.7-80.0); PLATELET COUNT 182 x10e3/uL (140-360); RED BLOOD COUNT 3.68 x10e6/uL (3.6-5.1); RED CELL DISTRIBUTION WIDTH 17.8 % (11.7-14.4)
[2017-07-08 04:38] LABS: ALBUMIN 2.7 g/dL (3.5-5.0); ALBUMIN/GLOBULIN RATIO 0.7 (0.8-2.0); ANION GAP 14.7 mmol/L (8-16); CALCIUM 8.6 mg/dL (8.4-10.2); CREATININE, SERUM 4.11 mg/dL (0.57-1.11); POTASSIUM 4.7 mmol/L (3.5-5.1)
[2017-07-08] MEDS ORDERED: NITROFURANTOIN MACROCRYSTALS 100 MG CAP PO SCH (09:00)
[2017-07-08] MEDS: LINEZOLID 600 MG/D5W 300ML 300 ML IV SCH ×2 (10:30→22:59)
[2017-07-08] MEDS ORDERED: DIPHENHYDRAMINE HCL INJ 50 MG/ML VIAL IV ONE (12:00)
[2017-07-08] MEDS ORDERED: IPRATROPIUM BROMIDE 0.02% 2.5 ML NEB NEB SCH (12:30)
[2017-07-08] MEDS ORDERED: ALBUTEROL SULFATE HFA 8GM INHALATION AEROSOL INH PRN (12:30)
[2017-07-08] MEDS ORDERED: IPRATROPIUM BROMIDE 0.02% 2.5 ML NEB NEB PRN (12:45)
[2017-07-08] MEDS ORDERED: DEXTROSE 50% SYRINGE 50 ML IV PRN (12:45)
[2017-07-08] MEDS: EPOETIN ALFA 10000 UNIT/ML VIAL SC SCH (13:31)
[2017-07-08] MEDS ORDERED: HEPARIN SOD (PORCINE) 1000 UNIT/ML SDV IV PRN (14:00)
[2017-07-08] MEDS ORDERED: SODIUM CHLORIDE 0.9% 1000ML 2,000 ML IV PRN (14:00)
[2017-07-08] MEDS ORDERED: DIPHENHYDRAMINE HCL INJ 50 MG/ML VIAL IV PRN (14:00)
[2017-07-08] MEDS: INSULIN REGULAR, HUMAN 100 UNIT/1 ML 3ML VIAL SQ SCH ×2 (15:42→21:00)
--- NOTE | 2017-07-08 15:56 | History and Physical ---
PRIMARY CARE PHYSICIAN: Dr. Ger Mukherjee. CHIEF COMPLAINT: Abdominal pain, nausea and vomiting, gastrostomy tube malfunction. HISTORY OF PRESENT ILLNESS: This is a 31-year-old woman with a history of end-stage renal disease on hemodialysis, who states that on July 07 she noticed a hole in her gastrostomy tube just below the entrance port. She states that she has had ongoing abdominal pain, nausea and vomiting, that it never completely dissipates. She vomited 3 times yesterday and twice today. She states she has been unable to eat Jell-O. Although she stopped self-catheterization about 2 months ago, she states that she has ongoing itching and that she is constantly scratching her vagina, head and legs. She has ongoing urinary tract infections. She states her last dialysis was July 05, which lasted an hour and 45 minutes, and 4 liters were removed at that time according to the patient's mother, who is at the bedside. She also states that she had syncope or blacking out for about 5 minutes on July 06, which was not during dialysis. The dialysis nurse is at the bedside now, and they are planning on removing 3 liters of fluid. The patient states her last gynecology exam was in May. The patient's mother states that she has not been able to be on the heart and kidney transplant list due to recurrent urinary tract infections. The patient is asking for IV Benadryl. PAST MEDICAL HISTORY: Diabetes mellitus type 1, neurogenic bladder requiring self-catheterization, diabetic gastroparesis, dysphagia, gastrostomy status, diabetic nephropathy, chronic systolic congestive heart failure. She had an echocardiogram done on June 11, 2016, with an ejection fraction of 25%. However, on the history and physical dated July 02, 2017, left ventricular ejection fraction listed at 40% to 45%, left heel diabetic foot ulcer, epilepsy. PAST SURGICAL HISTORY: ICD placement, cholecystectomy, PEG tube placement, right chest dialysis tunneled catheter. ALLERGIES: PER ELECTRONIC MEDICAL RECORD. FAMILY HISTORY AND SOCIAL HISTORY: Patient is single. She lives with her mother. No alcohol, illicits or tobacco. MEDICATIONS: Per electronic medical record. REVIEW OF SYSTEMS GENERAL: Patient complaints of malaise, chills. HEENT: Denies any visual complaints. 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 CARDIOVASCULAR: Denies chest pain. Does complain of palpitations. Stated syncopal episode on July 06. PULMONARY: Shortness of breath. No cough or phlegm. GASTROINTESTINAL: She complains of nausea, vomiting. She states she had diarrhea before but this stopped. Her last bowel movement was yesterday. GENITOURINARY: Dysuria. No complaints of urinary frequency. She does complain of vaginal pain. MUSCULOSKELETAL: No specific complaints of back pain or joint pains. ENDOCRINE: Positive for diabetes. HEMATOLOGY: Denies bleeding or bruising currently. INFECTIOUS DISEASE: No known history of HIV. She does have a history of immunodeficiency and recurrent urinary tract infections. NEUROLOGIC: Denies any focal weakness, numbness, tingling or current seizures. She has a history of epilepsy. PHYSICAL EXAMINATION VITAL SIGNS: Temperature 96.1, heart rate 117, blood pressure 129/96, respirations 18, oxygen saturation 96%. Weight 150 pounds, BMI 26.56. GENERAL: The patient appears somewhat anxious, verbose, well nourished, well developed, in no apparent distress. HEENT: Pupils equal, round, reactive to light. Extraocular eye movements are intact. Oropharynx clear. Atraumatic, normocephalic. NECK: Supple. No lymphadenopathy, thyromegaly or JVD. CARDIOVASCULAR: Regular rate and rhythm. No murmur appreciated. Right chest hemodialysis catheter with dressing clean and intact. LUNGS: Air entry bilaterally. No wheezing. Diminished bases. ABDOMEN: Bowel sounds positive. Soft. Slightly tender to touch. EXTREMITIES: No notable swelling. No signs or symptoms of DVT. NEUROLOGICAL: GCS 15. Cranial nerves 2-12 are intact. Alert and oriented x4. Nonfocal. LABORATORY DATA: Urinalysis showed cloudy urine, protein 2+, blood in the urine, negative for nitrites, 2+ leukocyte esterase, greater than 50 WBCs, few epithelial cells, no urine bacteria, moderate amount of yeast. Urine culture and sensitivity pending. WBC 5.04, hemoglobin 9.7, hematocrit 32.2, platelets 177. Sodium 137, potassium 4.6, chloride 103, CO2 21, anion gap 17.6, BUN 30, creatinine 3.99, GFR 16, glucose 146, calcium 8.7. Total bilirubin 0.3, AST 14, ALT 11, alkaline phosphatase 145. Total protein 7.0, albumin 2.8. Today WBCs 4.97, hemoglobin 10.2, hematocrit 33.9, platelets 182. Sodium 138, potassium 4.7, chloride 105, CO2 23, anion gap 14.7, BUN 32, creatinine 4.11, GFR 16, glucose 115, calcium 8.6. Total bilirubin 0.3, AST 12, ALT 10, alkaline phosphatase 141. Total protein 6.8, albumin 2.7. Chest x-ray done yesterday showed mild to moderate edema. Superimposed pneumonia could not be excluded. She has mild to moderate scattered air-space opacities. No 12-lead EKG was noted in the chart. ASSESSMENT AND PLAN 1. Gastrostomy malfunction. Dr. Barrios with gastroenterology has been consulted, and the patient is anticipated to have a PEG tube replacement today after dialysis. 2. Acute gastroenteritis. Reglan continues. Will start her on IV Pepcid, p.r.n. Phenergan. 3. Chronic recurrent urinary tract infection. Awaiting urine culture results. Continue IV Zyvox for now. 4. Abdominal pain. Gastroenterology following. 5. Stated syncope on July 06, 2017. Dr. Mukherjee to see patient later on today. Will decide if carotid Doppler, ultrasound and echocardiogram are necessary. 6. End-stage renal disease with mild fluid volume overload and on hemodialysis. The patient is anticipated to have 3 liters removed today with dialysis per Nephrology. Dr. Salomon has been consulted. 7. Chronic systolic congestive heart failure. Hemodialysis should help keep CHF controlled. 8. Chronic pain syndrome. We will consult Dr. Degroot with pain management. The patient is currently on 4 mg morphine IV q.4 h. p.r.n. 9. Epilepsy. The patient had been on Keppra at home. Will continue this via PEG tube once the PEG is in place. 10. Mild to moderate normocytic anemia. Monitor hemoglobin and hematocrit. Continue Epogen per Nephrology. 11. Type 1 diabetes mellitus. Monitor her fingerstick blood glucose levels. Sliding-scale insulin once tolerating a diet after gastrostomy tube replacement. 12. Vaginal pain. The patient states her last gynecology exam was in May. Will defer to Dr. Mukherjee as to whether he wants to consult Gynecology on an inpatient basis. 13. 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 Patient has persistently readmitted to the hospital, and immediately upon discharge there are reports of her showing up in the emergency room the same day. Dr. Roche with psychiatry has been consulted. 14. Pruritus. The patient states she has been scratching her vagina, head and legs and likely doing this without washing her hands. She takes Benadryl routinely at home and is very concerned about getting IV Benadryl on an hycgz-riry-lcim basis scheduled. 15. Prophylaxis. Pepcid. TOTAL TIME: 1 hour 15 minutes. Dictated by: Jorge Troncoso NP Job#: [id number]
[2017-07-08] MEDS ORDERED: INSULIN REGULAR, HUMAN 100 UNIT/1 ML 3ML VIAL SQ SCH ×2 (16:30)
[2017-07-08] MEDS ORDERED: CLONAZEPAM 0.5 MG TAB PO PRN (16:30)
[2017-07-08] MEDS: BUDESONIDE/FORMOTEROL 160/4.5MCG INHALER INH SCH (17:00)
[2017-07-08] MEDS: CLONAZEPAM 0.5 MG TAB PO SCH (17:00)
[2017-07-08] MEDS ORDERED: FLUTICASONE PROPIONATE NS SCH (17:00)
[2017-07-08] MEDS: FAMOTIDINE 20 MG/2 ML VIAL IV SCH (17:44)
[2017-07-08] MEDS: FLUTICASONE PROPIONATE NASAL SPRAY NS SCH (17:48)
[2017-07-08] MEDS: MIRTAZAPINE 15 MG TAB PO SCH (22:59)
[2017-07-08] MEDS: DIPHENHYDRAMINE HCL INJ 50 MG/ML VIAL IV PRN (23:00)
[2017-07-09] VITALS (7 sets, daily range): BP systolic 132–147; BP diastolic 79–96
[2017-07-09] MEDS: MORPHINE SULFATE 2 MG/ML SYR IV PRN ×3 (05:19→19:16)
[2017-07-09] MEDS: DIPHENHYDRAMINE HCL INJ 50 MG/ML VIAL IV PRN ×3 (05:19→19:16)
[2017-07-09] MEDS: PROMETHAZINE 12.5MG/ NACL 0.9% 12.5 MG/50 ML BAG IV PRN ×3 (05:19→19:16)
[2017-07-09] MEDS ORDERED: SODIUM CHLORIDE 0.9% 250ML 250 ML ONE (05:27)
[2017-07-09] MEDS: METOCLOPRAMIDE HCL 10 MG/2ML VIAL IV SCH ×4 (06:00→23:30)
[2017-07-09 06:51] LABS: BASOPHILS % 0.9 % (0.0-1.0); EOSINOPHILS # (AUTO) 0.2 (0.0-0.4); EOSINOPHILS % 3.7 % (0.0-6.0); HEMATOCRIT 35.7 % (34.2-44.1); HEMOGLOBIN 10.6 g/dL (12.0-16.0); LYMPHOCYTES # (AUTO) 0.8 (1.0-3.2); LYMPHOCYTES % 18.3 % (18.0-39.1); MEAN CORPUSCULAR HEMOGLOBIN 27.5 pg (28-32); MEAN CORPUSCULAR HGB CONC 29.7 g/dL (31-35); MEAN CORPUSCULAR VOLUME 92.7 fL (81-99); MONOCYTES # (AUTO) 0.2 (0.2-0.8); MONOCYTES % 3.9 % (4.4-11.3); NEUTROPHILS # (AUTO) 3.1 (2.1-6.9); NEUTROPHILS % 72.5 % (38.7-80.0); PLATELET COUNT 162 x10e3/uL (140-360); RED BLOOD COUNT 3.85 x10e6/uL (3.6-5.1); RED CELL DISTRIBUTION WIDTH 18.4 % (11.7-14.4)
[2017-07-09] MEDS: INSULIN REGULAR, HUMAN 100 UNIT/1 ML 3ML VIAL SQ SCH ×5 (07:30→20:43)
[2017-07-09] MEDS: BUDESONIDE/FORMOTEROL 160/4.5MCG INHALER INH SCH ×2 (07:56→17:00)
[2017-07-09] MEDS: CLONAZEPAM 0.5 MG TAB PO SCH ×2 (08:21→17:00)
[2017-07-09] MEDS: FLUTICASONE PROPIONATE NASAL SPRAY NS SCH ×2 (08:21→17:00)
[2017-07-09] MEDS: FAMOTIDINE 20 MG/2 ML VIAL IV SCH ×2 (08:21→17:00)
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
[2017-07-09] MEDS: LINEZOLID 600 MG/D5W 300ML 300 ML IV SCH ×2 (09:52→20:43)
[2017-07-09 10:22] LABS: ANION GAP 12.1 mmol/L (8-16); CALCIUM 8.4 mg/dL (8.4-10.2); CREATININE, SERUM 2.87 mg/dL (0.57-1.11); POTASSIUM 4.1 mmol/L (3.5-5.1)
--- NOTE | 2017-07-09 17:32 | Operative Report ---
DATE OF PROCEDURE: July 09, 2017 REFERRING PHYSICIAN: Dr. John Mukherjee PROCEDURE PERFORMED: Esophagogastroduodenoscopy. INDICATIONS FOR PROCEDURE: Dysfunctional G-tube. MEDICATION: Patient was done under MAC. Please see anesthesiologist's note. PROCEDURE: With the patient in the left lateral decubitus position, the flexible fiberoptic Olympus gastroscope was introduced into the esophagus under direct visualization without any difficulty. The mucosa overlying the distal esophagus revealed some patchy areas of erythema. The scope was then advanced with ease into the stomach. Mucosa overlying the antrum and the body revealed some patchy erythema. The bumper of the tube was noted in the stomach, and it was in good position. The patient appears to have a jejunostomy tube and not a gastrostomy tube. A minute nodule was noted in the peripyloric area, and that was biopsied. The scope was retroflexed, and there was some retained undigested food noted in the fundus. The cardia overall appeared to be within normal limits. The scope was then straightened out. The scope was subsequently withdrawn. Patient tolerated the procedure well. IMPRESSION 1. Distal esophagitis. 2. Gastritis. 3. Peripyloric nodule, biopsied. 4. The patient has a jejunostomy tube and not a gastrostomy tube. PLAN: As discussed with the family, the patient will go to Dr. Mueller' office who inserted this particular tube to replace it. Job#: [id number] cc:JHON MUKHERJEE MD
[2017-07-09] MEDS ORDERED: PROPOFOL IV EMULSION 10 MG/ML 50 ML VIAL ONE (17:35)
[2017-07-09] MEDS ORDERED: MIDAZOLAM HCL 2 MG/2 ML VIAL ONE (17:51)
[2017-07-09] MEDS: MIRTAZAPINE 15 MG TAB PO SCH (20:43)
[2017-07-10] VITALS (7 sets, daily range): BP systolic 135–158; BP diastolic 93–111
[2017-07-10] MEDS: MORPHINE SULFATE 2 MG/ML SYR IV PRN ×4 (00:51→22:26)
[2017-07-10] MEDS: PROMETHAZINE 12.5MG/ NACL 0.9% 12.5 MG/50 ML BAG IV PRN ×3 (00:51→22:26)
[2017-07-10] MEDS: DIPHENHYDRAMINE HCL INJ 50 MG/ML VIAL IV PRN ×3 (01:17→22:26)
[2017-07-10] MEDS: METOCLOPRAMIDE HCL 10 MG/2ML VIAL IV SCH ×2 (05:12→11:27)
[2017-07-10 05:45] LABS: BASOPHILS % 0.7 % (0.0-1.0); EOSINOPHILS # (AUTO) 0.1 (0.0-0.4); EOSINOPHILS % 2.8 % (0.0-6.0); HEMOGLOBIN 9.6 g/dL (12.0-16.0); LYMPHOCYTES # (AUTO) 0.8 (1.0-3.2); LYMPHOCYTES % 18.7 % (18.0-39.1); MEAN CORPUSCULAR HEMOGLOBIN 28.5 pg (28-32); MONOCYTES # (AUTO) 0.2 (0.2-0.8); MONOCYTES % 5.2 % (4.4-11.3); NEUTROPHILS % 72.1 % (38.7-80.0); PLATELET COUNT 126 x10e3/uL (140-360); RED BLOOD COUNT 3.37 x10e6/uL (3.6-5.1); RED CELL DISTRIBUTION WIDTH 18.3 % (11.7-14.4)
[2017-07-10 06:13] LABS: ANION GAP 11.2 mmol/L (8-16); CALCIUM 8.2 mg/dL (8.4-10.2); CREATININE, SERUM 3.14 mg/dL (0.57-1.11); MAGNESIUM 1.7 MG/DL (1.3-2.1); PHOSPHORUS 4.5 MG/DL (2.3-4.7); POTASSIUM 4.2 mmol/L (3.5-5.1)
[2017-07-10] MEDS: BUDESONIDE/FORMOTEROL 160/4.5MCG INHALER INH SCH ×2 (07:08→20:41)
[2017-07-10] MEDS: INSULIN REGULAR, HUMAN 100 UNIT/1 ML 3ML VIAL SQ SCH ×4 (07:30→20:41)
[2017-07-10] MEDS: FAMOTIDINE 20 MG/2 ML VIAL IV SCH ×2 (08:34→17:00)
[2017-07-10] MEDS: CLONAZEPAM 0.5 MG TAB PO SCH ×2 (11:26→17:00)
[2017-07-10] MEDS: EPOETIN ALFA 10000 UNIT/ML VIAL SC SCH (11:27)
[2017-07-10] MEDS: FLUTICASONE PROPIONATE NASAL SPRAY NS SCH ×2 (11:44→17:00)
[2017-07-10] MEDS ORDERED: SODIUM CHLORIDE 0.9% 1000ML 2,000 ML IV PRN (16:15)
[2017-07-10] MEDS ORDERED: ALBUMIN HUMAN 12.5GM / 50ML IV PRN (16:15)
[2017-07-10] MEDS ORDERED: MANNITOL 25% 12.5GM/50 ML VIAL IV PRN (16:15)
[2017-07-10] MEDS ORDERED: SODIUM CHLORIDE 0.9% 250ML 500 ML IV PRN (16:15)
--- NOTE | 2017-07-10 18:00 | Progress Note ---
DATE: July 10, 2017 SUBJECTIVE: The patient was evaluated and events noted. The patient is in the room. She is alert, awake and oriented to situation. She reports feeling anxiety due to her discharge planning, and she does not want to go home at this time. She claims that she is sleeping more last night. She denies any hallucinations. She denies any suicidal ideation. She is taking medications and denies any side effects. ASSESSMENT: Adjustment disorder, mixed mood; generalized anxiety disorder. PLAN: 1. Continue Klonopin 0.5 mg p.o. q.12 h. 2. Continue Klonopin 0.5 mg p.o. q.8 h. p.r.n. 3. Continue Remeron 15 mg p.o. nightly. 4. Supportive therapy. Dictated by: CHOLO Shields Job#: [id number] GH
[2017-07-10] MEDS ORDERED: FLUCONAZOLE 100 MG TAB PO NR (20:30)
[2017-07-10] MEDS: MIRTAZAPINE 15 MG TAB PO SCH (21:16)
[2017-07-11] VITALS (7 sets, daily range): BP systolic 120–140; BP diastolic 83–101
[2017-07-11] MEDS: METOCLOPRAMIDE HCL 10 MG/2ML VIAL IV SCH ×5 (00:18→23:59)
[2017-07-11] MEDS: INSULIN REGULAR, HUMAN 100 UNIT/1 ML 3ML VIAL SQ SCH ×4 (07:30→20:16)
[2017-07-11] MEDS: MORPHINE SULFATE 2 MG/ML SYR IV PRN ×3 (08:10→20:50)
[2017-07-11] MEDS: PROMETHAZINE 12.5MG/ NACL 0.9% 12.5 MG/50 ML BAG IV PRN ×3 (08:10→20:50)
[2017-07-11] MEDS: DIPHENHYDRAMINE HCL INJ 50 MG/ML VIAL IV PRN ×3 (08:10→20:50)
[2017-07-11] MEDS: BUDESONIDE/FORMOTEROL 160/4.5MCG INHALER INH SCH ×2 (08:12→20:45)
[2017-07-11] MEDS: CLONAZEPAM 0.5 MG TAB PO SCH ×2 (08:28→17:30)
[2017-07-11] MEDS: FAMOTIDINE 20 MG/2 ML VIAL IV SCH ×2 (08:28→17:30)
[2017-07-11] MEDS: FLUTICASONE PROPIONATE NASAL SPRAY NS SCH ×2 (08:28→17:30)
[2017-07-11] MEDS ORDERED: FLUCONAZOLE 100 MG TAB PO ONE (09:00)
--- NOTE | 2017-07-11 15:33 | Progress Note ---
DATE: July 11, 2017 Patient evaluated and events noted. Patient is currently lying on her bed. She is alert, awake and oriented to situation. She states that she is not able to sleep very well, but her appetite is fair. She denies any hallucinations and/or any suicidal ideations. Her mother is at her bedside, and she agrees with the above information. ASSESSMENT: Generalized anxiety disorder. PLAN 1. Continue Klonopin scheduled and p.r.n. 2. Continue Remeron. 3. Supportive therapy. Job#: [id number]
--- NOTE | 2017-07-11 15:39 | Consultation ---
DATE OF CONSULTATION: July 11, 2017 REFERRING PHYSICIAN: Dr. Mukherjee HISTORY OF PRESENT ILLNESS: Patient is a 31-year-old female with multiple medical problems who has a jejunostomy tube. Apparently the tube was noted to be broken and she needs to have it changed. Tube was placed about 3 months ago by a doctor at [facility] who was not in her insurance network. The patient has extensive past medical history, the details of which are seen in the chart and previous notes. Multiple medical problems including gastroparesis, end-stage renal disease, diabetes, neurogenic bladder, congestive heart failure. MEDICATIONS: Listed in the chart. ALLERGIES: LISTED IN THE CHART. PAST SURGICAL HISTORY: ICD placement. cholecystectomy, jejunostomy tube placement and dialysis catheter. PHYSICAL EXAMINATION: VITALS: Normal. GENERAL: The patient is awake and alert. Significant findings reveal: HEENT: Reveals no scleral icterus. NECK: Has no masses. LUNGS: Equal breath sounds are clear. CARDIAC: Regular rhythm. ABDOMEN: Soft. There is a jejunostomy tube in the left upper quadrant which has a dressing in place where there is . EXTREMITIES: Slight edema. ASSESSMENT: A 31-year-old female with multiple medical problems with a malfunctioning jejunostomy tube. I think the best thing at this point would be to change the tube by interventional radiology, and to consult with them to have this done. This was explained to the patient. Thank you for asking me to see Ms. Bermeo. Job#: [id number]
[2017-07-11] MEDS: MIRTAZAPINE 15 MG TAB PO SCH (20:50)
[2017-07-11] MEDS: NYSTATIN 15 GM POWDER UD BTL TOP SCH (21:00)
[2017-07-12] VITALS: BP 137/95
[2017-07-12 04:00] VITALS: BP 112/83
[2017-07-12] MEDS: DIPHENHYDRAMINE HCL INJ 50 MG/ML VIAL IV PRN ×3 (05:56→20:23)
[2017-07-12] MEDS: METOCLOPRAMIDE HCL 10 MG/2ML VIAL IV SCH ×3 (05:56→17:20)
[2017-07-12] MEDS: MORPHINE SULFATE 2 MG/ML SYR IV PRN ×3 (05:56→20:23)
[2017-07-12] MEDS: PROMETHAZINE 12.5MG/ NACL 0.9% 12.5 MG/50 ML BAG IV PRN ×3 (05:56→20:23)
[2017-07-12 06:54] LABS: BASOPHILS % 0.6 % (0.0-1.0); EOSINOPHILS # (AUTO) 0.2 (0.0-0.4); EOSINOPHILS % 3.1 % (0.0-6.0); HEMATOCRIT 35.7 % (34.2-44.1); HEMOGLOBIN 10.4 g/dL (12.0-16.0); LYMPHOCYTES # (AUTO) 1.5 (1.0-3.2); MEAN CORPUSCULAR HGB CONC 29.1 g/dL (31-35); MONOCYTES # (AUTO) 0.2 (0.2-0.8); MONOCYTES % 4.7 % (4.4-11.3); NEUTROPHILS # (AUTO) 3.2 (2.1-6.9); NEUTROPHILS % 62.2 % (38.7-80.0); PLATELET COUNT 142 x10e3/uL (140-360); RED BLOOD COUNT 3.72 x10e6/uL (3.6-5.1); RED CELL DISTRIBUTION WIDTH 19.3 % (11.7-14.4)
[2017-07-12 07:10] LABS: INR 1.48; PROTHROMBIN TIME 16.8 seconds (11.9-14.5)
[2017-07-12 07:15] LABS: CALCIUM 8.4 mg/dL (8.4-10.2); CREATININE, SERUM 3.27 mg/dL (0.57-1.11)
[2017-07-12] MEDS: INSULIN REGULAR, HUMAN 100 UNIT/1 ML 3ML VIAL SQ SCH ×4 (07:30→20:20)
[2017-07-12] MEDS: BUDESONIDE/FORMOTEROL 160/4.5MCG INHALER INH SCH ×2 (07:50→20:02)
[2017-07-12 08:45] VITALS: BP 112/83
[2017-07-12] MEDS: FLUTICASONE PROPIONATE NASAL SPRAY NS SCH ×2 (08:45→17:20)
[2017-07-12] MEDS: FAMOTIDINE 20 MG/2 ML VIAL IV SCH ×2 (09:00→17:20)
[2017-07-12] MEDS: CLONAZEPAM 0.5 MG TAB PO SCH ×2 (09:00→17:00)
[2017-07-12] MEDS: NYSTATIN 15 GM POWDER UD BTL TOP SCH ×3 (09:00→20:20)
[2017-07-12] MEDS ORDERED: HEPARIN SOD (PORCINE) 1000 UNIT/ML SDV IV PRN (09:30)
[2017-07-12] MEDS ORDERED: SODIUM CHLORIDE 0.9% 250ML 500 ML IV PRN (09:30)
[2017-07-12] MEDS: EPOETIN ALFA 10000 UNIT/ML VIAL SC SCH (13:20)
[2017-07-12] MEDS ORDERED: LIDOCAINE HCL 2% LOCAL 20 ML VIAL ONE (18:05)
[2017-07-12] MEDS ORDERED: SODIUM CHLORIDE 0.9% 500ML 500 ML ONE (18:07)
[2017-07-12] MEDS ORDERED: MIDAZOLAM HCL 2 MG/2 ML VIAL ONE (19:22)
[2017-07-12] MEDS ORDERED: MORPHINE SULFATE 2 MG/ML SYR ONE (19:26)
[2017-07-12 20:00] VITALS: BP 121/85
[2017-07-12 20:20] VITALS: BP 121/85
[2017-07-12] MEDS: MIRTAZAPINE 15 MG TAB PO SCH (20:25)
[2017-07-13] VITALS (7 sets, daily range): BP systolic 109–132; BP diastolic 60–92
[2017-07-13] MEDS: METOCLOPRAMIDE HCL 10 MG/2ML VIAL IV SCH ×3 (00:45→12:45)
[2017-07-13] MEDS: MORPHINE SULFATE 2 MG/ML SYR IV PRN ×2 (02:23→09:15)
[2017-07-13] MEDS: DIPHENHYDRAMINE HCL INJ 50 MG/ML VIAL IV PRN ×2 (02:23→09:15)
[2017-07-13] MEDS: PROMETHAZINE 12.5MG/ NACL 0.9% 12.5 MG/50 ML BAG IV PRN ×2 (02:23→09:15)
[2017-07-13 06:15] LABS: BASOPHILS % 0.8 % (0.0-1.0); EOSINOPHILS # (AUTO) 0.2 (0.0-0.4); EOSINOPHILS % 3.6 % (0.0-6.0); HEMATOCRIT 39.4 % (34.2-44.1); HEMOGLOBIN 11.7 g/dL (12.0-16.0); LYMPHOCYTES # (AUTO) 1.4 (1.0-3.2); LYMPHOCYTES % 27.8 % (18.0-39.1); MEAN CORPUSCULAR HEMOGLOBIN 28.3 pg (28-32); MEAN CORPUSCULAR HGB CONC 29.7 g/dL (31-35); MEAN CORPUSCULAR VOLUME 95.2 fL (81-99); MONOCYTES # (AUTO) 0.2 (0.2-0.8); MONOCYTES % 4.4 % (4.4-11.3); NEUTROPHILS # (AUTO) 3.1 (2.1-6.9); NEUTROPHILS % 63.2 % (38.7-80.0); PLATELET COUNT 166 x10e3/uL (140-360); RED BLOOD COUNT 4.14 x10e6/uL (3.6-5.1); RED CELL DISTRIBUTION WIDTH 19.7 % (11.7-14.4)
[2017-07-13 06:33] LABS: ANION GAP 12.8 mmol/L (8-16); CALCIUM 8.7 mg/dL (8.4-10.2); CREATININE, SERUM 3.14 mg/dL (0.57-1.11); POTASSIUM 3.8 mmol/L (3.5-5.1)
[2017-07-13] MEDS: INSULIN REGULAR, HUMAN 100 UNIT/1 ML 3ML VIAL SQ SCH ×4 (07:30→21:00)
[2017-07-13] MEDS: BUDESONIDE/FORMOTEROL 160/4.5MCG INHALER INH SCH ×2 (07:40→20:15)
[2017-07-13] MEDS ORDERED: FLUCONAZOLE 100 MG TAB PO SCH (09:00)
--- NOTE | 2017-07-13 09:19 | Diagnostic Imaging Report ---
EXAM: ABDOMEN COMP INCL UPR or DECUB, DATE: 07/13/2017 6:32 AM INDICATION: Distention COMPARISON: Fluoroscopic images 07/12/2017, chest radiograph 07/07/2017 FINDINGS: LINES/TUBES: None BOWEL PATTERN: No evidence for obstruction within the visualized loops. SOFT TISSUES: No abnormal calcifications. No mass effect. No free air under the diaphragm. LUNG BASES: Mostly clear within the limitations of motion artifacts. Partially visualized left chest wall port and AICD. Gastrojejunostomy tube projects over the abdomen. BONES: No acute findings. IMPRESSION: No free air under the diaphragm. Nonobstructive bowel gas pattern within the visualized portions of the abdomen. Signed by: DR. Edwin Graham MD on 07/13/2017 9:16 AM
[2017-07-13] MEDS: NYSTATIN 15 GM POWDER UD BTL TOP SCH ×3 (09:55→21:13)
[2017-07-13] MEDS: CLONAZEPAM 0.5 MG TAB PO SCH ×2 (09:55→18:20)
[2017-07-13] MEDS: FAMOTIDINE 20 MG/2 ML VIAL IV SCH ×2 (09:55→18:20)
[2017-07-13] MEDS: FLUTICASONE PROPIONATE NASAL SPRAY NS SCH ×2 (09:55→18:20)
[2017-07-13] MEDS ORDERED: ACETAMINOPHEN 325 MG TAB PO PRN (14:45)
[2017-07-13] MEDS ORDERED: PHENYTOIN SODIUM EXT REL 100 MG CAP PO SCH (14:45)
[2017-07-13] MEDS: DIPHENHYDRAMINE HCL ELIX 12.5 MG/5 ML UDC NG PRN (18:20)
[2017-07-13] MEDS: PROMETHAZINE HCL 6.25 MG/5 ML SYRUP JT PRN (18:20)
[2017-07-13] MEDS: LEVETIRACETAM 500 MG TAB PO SCH (18:20)
[2017-07-13] MEDS: METOCLOPRAMIDE HCL 10MG/10ML UDC GT SCH (18:20)
[2017-07-13] MEDS: CARVEDILOL 12.5 MG TAB PO SCH (18:20)
[2017-07-13] MEDS: GUAIFENESIN 600MG/DEXTROMETHORPHAN 30MG TABSR PO SCH (18:20)
[2017-07-13] MEDS: MORPHINE SULFATE ORAL SOLN 10 MG/5 ML UDC GT SCH (18:20)
[2017-07-13] MEDS: MIRTAZAPINE 15 MG TAB PO SCH (21:33)
[2017-07-13] MEDS: PHENYTOIN 50 MG TAB PO SCH (21:33)
[2017-07-14] VITALS: BP 102/67
[2017-07-14] MEDS: PROMETHAZINE HCL 6.25 MG/5 ML SYRUP JT PRN ×2 (00:16→06:20)
[2017-07-14] MEDS: DIPHENHYDRAMINE HCL ELIX 12.5 MG/5 ML UDC NG PRN ×2 (00:16→06:20)
[2017-07-14] MEDS: METOCLOPRAMIDE HCL 10MG/10ML UDC GT SCH ×2 (00:16→06:32)
[2017-07-14 04:00] VITALS: BP 108/74
[2017-07-14 06:50] LABS: BASOPHILS % 0.4 % (0.0-1.0); EOSINOPHILS # (AUTO) 0.2 (0.0-0.4); EOSINOPHILS % 3.4 % (0.0-6.0); HEMATOCRIT 37.4 % (34.2-44.1); LYMPHOCYTES # (AUTO) 1.2 (1.0-3.2); LYMPHOCYTES % 21.5 % (18.0-39.1); MEAN CORPUSCULAR HEMOGLOBIN 28.6 pg (28-32); MEAN CORPUSCULAR HGB CONC 29.4 g/dL (31-35); MEAN CORPUSCULAR VOLUME 97.1 fL (81-99); MONOCYTES # (AUTO) 0.4 (0.2-0.8); MONOCYTES % 6.5 % (4.4-11.3); NEUTROPHILS # (AUTO) 3.6 (2.1-6.9); NEUTROPHILS % 67.8 % (38.7-80.0); PLATELET COUNT 158 x10e3/uL (140-360); RED BLOOD COUNT 3.85 x10e6/uL (3.6-5.1); RED CELL DISTRIBUTION WIDTH 19.4 % (11.7-14.4)
[2017-07-14 07:20] LABS: ANION GAP 15.2 mmol/L (8-16); CALCIUM 8.2 mg/dL (8.4-10.2); CREATININE, SERUM 4.35 mg/dL (0.57-1.11); MAGNESIUM 1.9 MG/DL (1.3-2.1); POTASSIUM 4.2 mmol/L (3.5-5.1)
[2017-07-14 08:04] VITALS: BP 100/68
[2017-07-14] MEDS: BUDESONIDE/FORMOTEROL 160/4.5MCG INHALER INH SCH (09:00)
[2017-07-14] MEDS ORDERED: PHENYTOIN 50 MG TAB PO SCH (09:00)
[2017-07-14 10:20] VITALS: BP 100/68
[2017-07-14] MEDS: PHENYTOIN 50 MG TAB PO SCH (10:20)
[2017-07-14] MEDS: MORPHINE SULFATE ORAL SOLN 10 MG/5 ML UDC GT SCH (10:20)
[2017-07-14] MEDS: FAMOTIDINE 20 MG/2 ML VIAL IV SCH (10:20)
[2017-07-14] MEDS: GUAIFENESIN 600MG/DEXTROMETHORPHAN 30MG TABSR PO SCH (10:20)
[2017-07-14] MEDS: CLONAZEPAM 0.5 MG TAB PO SCH (10:20)
[2017-07-14] MEDS: FLUTICASONE PROPIONATE NASAL SPRAY NS SCH (10:20)
[2017-07-14] MEDS: LEVETIRACETAM 500 MG TAB PO SCH (10:20)
[2017-07-14] MEDS: NYSTATIN 15 GM POWDER UD BTL TOP SCH (10:20)
[2017-07-14] MEDS: CARVEDILOL 12.5 MG TAB PO SCH (10:30)
[2017-07-14] MEDS ORDERED: FLUCONAZOLE PO (12:44)
[2017-07-14] MEDS ORDERED: CLONAZEPAM0.5 MG PO (12:44)
[2017-07-14] MEDS ORDERED: REMERON15 M1 PO (13:01)
[2017-07-14 13:05] VITALS: BP 92/63
--- NOTE | 2017-07-15 05:07 | Discharge Summary ---
ADMISSION DIAGNOSES 1. Gastrostomy tube malfunction. 2. Acute gastroenteritis. 3. Chronic urinary tract infection. 4. Abdominal pain. 5. End-stage renal disease with mild fluid volume overload, on dialysis. 6. Chronic systolic heart failure. 7. Chronic pain. 8. Epilepsy. 9. Anemia. 10. Type 1 diabetes. 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 DISCHARGE DIAGNOSES 1. Gastrostomy tube malfunction. 2. Acute gastroenteritis. 3. Chronic urinary tract infection. 4. Abdominal pain. 5. End-stage renal disease with mild fluid volume overload, on dialysis. 6. Chronic systolic heart failure. 7. Chronic pain. 8. Epilepsy. 9. Anemia. 10. Type 1 diabetes. 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 12. Status post gastrostomy tube replacement. HISTORY: Patient has a history of type 1 diabetes, neurogenic bladder, diabetic gastroparesis, dysphagia, gastrostomy tube, diabetic nephropathy, systolic heart failure, epilepsy. Surgical history of ICD placement, cholecystectomy, PEG tube placement, and right chest dialysis tunneled catheter. HOSPITAL COURSE: A 31-year-old female states on July 07, 2017, she noticed a hole in her G-tube just below the entrance. She complains of ongoing abdominal pain, nausea and vomiting. She also complains of itching and constantly scratching her head, legs and vagina. On admission, GI was consulted. Patient was started on IV Pepcid, Reglan and Phenergan. IV Zyvox for UTI as her last admission she had VRE of the urine. Dr. Salomon was consulted for dialysis. Dr. Mcintyre was consulted for pain management. Dr. Roche was consulted for psych for possible Munchausen syndrome. Patient on Benadryl for pruritus. On July 09, 2017, the patient had an EGD, which showed distal esophagitis, gastritis. Pyloric nodule which was biopsied. Patient had a jejunostomy tube and not a gastrostomy tube. Surgery was consulted who thought that IR should exchange the J-tube, which was done. Chest x-ray on admission showed mild to moderate edema, superimposed pneumonia not excluded. Due to the patient's complaint of abdominal pain and distention, x-ray of the abdomen was done and showed no free air under the diaphragm. Nonobstructive bowel gas pattern was visualized coursing through the abdomen. Urine culture showed Marleen. Patient was started and sent home on fluconazole. Patient continued to complain of nausea and vomiting, although no one ever saw her throw up. She always seemed to have a bag of emesis with her. Two days prior to discharge, a sitter was placed in the room to ensure that the patient was not throwing up. As expected, the sitter said that the patient never threw up. All of her meds were changed to be given via J-tube. It was crushed and showed the family and the patient how to give the meds and feedings. She was getting Nepro 1 can q.4 h. with 100 mL of free water flush q.4 h. as well. Patient tolerated it very well. It was explained to the mother and the patient that the J-tube is in a place that she will not be able to throw it up. She says that she understands, but still tries to make up various excuses for her nausea. I explained to her that as long as she is keeping down the tube feeding and the free water, that she does not need to eat by mouth, especially if it makes her nauseous. She continues to eat by mouth anyway and complains of nausea. Patient will follow up with her normal outpatient dialysis schedule. She already has tube feedings at home. Mother and daughter are aware of how to do it themselves, as well as crushing medications and giving it via tube. Patient was sent home with 2 more doses of fluconazole and will resume home medications. DICTATED BY UVALDO TERRY NP JOHN BAHENA MD Job#: [id number] ULISSES
--- NOTE | 2017-07-16 10:58 | Diagnostic Imaging Report ---
Exam: Replacement of a broken gastrojejunostomy tube. History: Patient with gastroparesis who has a gastrojejunostomy tube that has broken. Replacement is requested. Comparison: None available Sedation: Patient received 2 mg of Versed and 2 mg of morphine during the procedure. She was continuously monitored throughout. Findings: Contrast was injected through the existing tube. This confirms the jejunal portion within the jejunum past the ligament of Treitz. Local anesthesia at the entrance site was accomplished. A 0.035 and Debbie superstiff wire was advanced the catheter. Catheter was removed and a new VICTOR M 22 [place] 45 cm long GJ tube was placed. Contrast injection confirms appropriate location of the jejunal tip at the ligament of Treitz. The gastric retention balloon was inflated with 7 cc of saline. Patient tolerated procedure well without adverse effects. The line is okay for immediate use. Impression: Successful exchange of a gastrojejunostomy tube with fluoroscopic guidance. Signed by: Dr. Booker Marcelino DO on 07/14/2017 9:28 AM
== END 2017-07-14 13:57 | disposition home or self-care (01) | DRG 393 ==
LOC: ER 14:12 → IMCU 20:34 → OBSVTOIN 07-10 20:42 → MED/SURG 07-11 08:17
PROVIDERS: ADMIT Internal Medicine; ATTEND Internal Medicine
PROC: 0DB78ZX Excision of Stomach, Pylorus, Via Natural or Artificial Opening Endoscopic, Diagnostic (ICD-10-PCS; principal; 2017-07-09 13:00)
PROC: 5A1D70Z Performance of Urinary Filtration, Intermittent, Less than 6 Hours Per Day (ICD-10-PCS; 2017-07-10)
PROC: 0DHA8UZ Insertion of Feeding Device into Jejunum, Via Natural or Artificial Opening Endoscopic (ICD-10-PCS; 2017-07-12)
DX: K94.13 Enterostomy malfunction (principal); N18.6 End stage renal disease; I13.2 Hypertensive heart and chronic kidney disease with heart failure and with stage 5 chronic kidney disease, or end stage renal disease; B37.49 Other urogenital candidiasis; I50.22 Chronic systolic (congestive) heart failure; F68.10 Factitious disorder imposed on self, unspecified; E10.22 Type 1 diabetes mellitus with diabetic chronic kidney disease; K31.84 Gastroparesis; E10.43 Type 1 diabetes mellitus with diabetic autonomic (poly)neuropathy; N31.9 Neuromuscular dysfunction of bladder, unspecified; K52.9 Noninfective gastroenteritis and colitis, unspecified; Z99.2 Dependence on renal dialysis; Z79.4 Long term (current) use of insulin; D64.9 Anemia, unspecified; K29.70 Gastritis, unspecified, without bleeding; K20.9 Esophagitis, unspecified; F43.23 Adjustment disorder with mixed anxiety and depressed mood; G89.4 Chronic pain syndrome; G40.909 Epilepsy, unspecified, not intractable, without status epilepticus; Z95.810 Presence of automatic (implantable) cardiac defibrillator; R10.2 Pelvic and perineal pain; L29.2 Pruritus vulvae; L29.8 Other pruritus; K31.7 Polyp of stomach and duodenum
CPT/HCPCS: 36415; 43235; 43239; 49451; 71045; 74470; 77001; 80048; 80053; 81001; 82948; 83735; 84100; 84702; 85025; 85610; 86704; 86706; 86707; 87086; 87350; 88305; 88312; 94640; 99284; G0378; J0696; J1200; J1642; J1644; J2001; J2020; J2060; J2250; J2270; J2550; J2765; J7030; J7040; J7050; Q4081

== ENCOUNTER 2017-08-02 15:25 | Observation (INO) | payer OTHER ==
[~2017-08-02] VITALS: Ht 160 cm; Wt 69.0 kg
[~2017-08-02 15:25] MED LIST changes: +CLONAZEPAM0.5 MG PO; +FLUCONAZOLE PO; +REMERON15 M1 PO
--- OUTSIDE RECORDS SUMMARY | 2017-08-02 15:28 | XMS REPORT | Clinical Summary ---
Author Author [facility] Address Unknown Phone Unavailable Care Team Providers Care Planer Operator Name Role Phone PCP Unavailable Allergies Active [...] failure (HCC) 08/22/2016 End stage renal disease ([facility]) 08/22/2016 IDDM (insulin dependent diabetes mellitus) ([facility]) 08/22/2016 Epilepsy ([facility]) 08/22/2016 Anxiety 08/22/2016 Chronic pain due to trauma 08/22/2016 Gastroparesis 08/22/2016 Diabetic polyneuropathy associated with type 1 diabetes mellitus (HCC) 08/22 Secondary hyperparathyroidism of renal origin ([facility]) 08/22/2016 Anemia in chronic kidney disease(285.21) 08/22/2016 Thrombocytopenia ([facility]) 08/22/2016 Pituitary tumor 08/22/2016 Benign hypertension with end-stage renal disease ([facility]) 08/22/2016 Neurogenic bladder 08/22/2016 Pre-transplant evaluation for chronic kidney disease 06/26/2016 Encounters Date Type Specialty Care Team Description 06/13/2017 Telephone Transplant Yoon Rivera 06/10/2017 Telephone Transplant Yoon Rivera 10/09/2016 Telephone Transplant Mindi Cooper RN Committee [...] be here today to see the doctor) after 08/01/2016 Social History Tobacco Use Types Packs/Day Years [...] Due Date Last Done Comments INFLUENZA VACCINE 01/13/2018 Results Not on fileafter 08/01/2016
--- OUTSIDE RECORDS SUMMARY | 2017-08-02 15:29 | XMS REPORT | Clinical Summary ---
Author Author [facility] Address Unknown Phone Unavailable Care Team Providers Care Reconstructive Dentist Name Role Phone PCP Unavailable Allergies Active [...] failure (HCC) 08/22/2016 End stage renal disease ([facility]) 08/22/2016 IDDM (insulin dependent diabetes mellitus) ([facility]) 08/22/2016 Epilepsy ([facility]) 08/22/2016 Anxiety 08/22/2016 Chronic pain due to trauma 08/22/2016 Gastroparesis 08/22/2016 Diabetic polyneuropathy associated with type 1 diabetes mellitus (HCC) 08/22 Secondary hyperparathyroidism of renal origin ([facility]) 08/22/2016 Anemia in chronic kidney disease(285.21) 08/22/2016 Thrombocytopenia ([facility]) 08/22/2016 Pituitary tumor 08/22/2016 Benign hypertension with end-stage renal disease ([facility]) 08/22/2016 Neurogenic bladder 08/22/2016 Pre-transplant evaluation for [...]
--- OUTSIDE RECORDS SUMMARY | 2017-08-02 15:29 | XMS REPORT | Continuity of Care Document ---
Author Author [facility] Organization [facility] Address [address] [place] [address] Phone Unavailable Care Team Providers Care Behavioral Health Case Manager Name Role Phone JOHN BAHENA MD PCP Insurance Providers Guarantor Sonam Bermeo Address [address] [place] [address] Email [email or web address] Payer [place] Policy Number [id number] Subscriber's Name Sonam Bermeo Relationship 18 Self / Same As Patient Group Number [id number] Group Name [id number] Effective Date 16 Advance Directives Directive Response Recorded Date/Time Does the patient have an advance directive? No 07/07/17 8:54pm If yes, is advance directive on file with [facility]? No 07/07/17 8:54pm If not on file with [facility] will patient provide a copy? No 07/07/17 8:54pm Do you have a Directive to Physician? No 07/07/17 3:05pm Do you have a Medical Power of Aircraft Cabin Cleaner? No 07/07/17 3:05pm Do you have an out of hospital Do Not Resuscitate Order? No 07/07/17 3:05pm Do you have any special needs we should be aware of? No 07/07/17 3:05pm Do you have a support person here with you today? Yes 07/07/17 3:05pm Did patient receive Notice of Privacy Practices? Yes 07/07/17 3:05pm Did patient receive patient rights and responsibilities? Yes 07/07/17 3:05pm Problems Medical Problem Onset Date Status Abdominal [...] on dialysis 09/29/2015 Acute Edema 09/29/2015 Acute Encounter for care related to feeding tube Unknown End stage renal disease on dialysis due to type 2 diabetes mellitus 2015 Acute Gastroparesis 07/30/2014 Acute Gastroparesis Unknown Gastroparesis diabeticorum Unknown Hyperkalemia 10/23/2015 Acute Hypertension 12/17/2014 Acute Malaise and fatigue 12/17/2014 Acute Myoclonic disorder 10/23/2015 Acute Nausea & vomiting Unknown Pelvic pain Unknown Renal failure Unknown S3 [...] Twice A Day 30 Days 06/02 Clonazepam 0.5 Mg Tablet 0.5 Mg Oral Every 8 Hours as needed for Anxiety 90 07/14/17 Diltiazem Hcl (Cardizem) 30 Mg Tablet 30 Mg Oral Four Times Daily 30 Days 06/02/16 Docusate Sodium (Colace) 100 Mg Capsule 100 Mg Oral Twice A Day 30 Days 06/03/17 Epoetin Bharath (Epogen) 10,000 Unit/1 Ml Vial 10,000 Unit Subcutaneously Every Saturday, Saturday, And Saturday 30 Days 06/03/17 Fluconazole 150 Mg Oral Use As Directed 2 TAKE EVERY OTHER DAY 07/14 Folic Acid/Vitamin B Comp W-C (Dialyvite Tablet) 1 Each Tablet 1 Tab Oral Daily Furosemide (Lasix) 40 Mg Tablet 80 Mg Oral Twice A Day 14 Days 30 Tab 12/20/16 Insulin Regular, Human (Humulin R) 100 Unit/1 Ml Vial 7 Units Sub-Q As Needed Insulin Regular, Human (Humulin R) 100 Unit/1 Ml Vial 0 Unit Sub-Q Before Meals And At Bedtime 14 Days 12/20/16 Insulin Regular, Human (Humulin R) 100 Unit/1 Ml Vial 0 Unit Sub-Q Before Meals And At Bedtime 30 Days 06/03/17 Ipratropium Gray 0.2 Mg/1 Ml Solution 2.5 Ml Nebullizer [...] Times A Day as needed for Nausea Past Home Medications Medication Directions Ordered Status [...] Mg Oral Every 7 Days Discontinued Butalb/Acetaminophen/Caffeine (Lhmrom-Wiogsldm-Qbll 50-325-40) 1 Each Tablet, Every 6 Hours [...] A Day Discontinued Clonazepam 1 Mg Tablet, 2 Mg Oral Three Times A Day Discontinued Clonazepam 1 Mg Tablet, 0.5 Mg Oral Three Times A Day 03/30/16 Discontinued Clonazepam 1 Mg Tablet, 1 Mg Oral Three Times A Day Discontinued Cyclobenzaprine Hcl 10 Mg Tablet, 10 Mg Oral Twice A Day 06/03/17 Discontinued Cyclobenzaprine Hcl (Flexeril) 5 Mg Tablet, [...] Oral Four Times Daily Discontinued Diphenhydramine Hcl 50 Mg/1 Ml [...] (Colace) 100 Mg Cap, 100 Mg Oral As Needed for Constipation Discontinued Docusate Sodium (Colace) 100 Mg Cap, [...] Once 06/30/17 Discontinued Fluticasone Propionate 1 Ea [place], 0 Ea Nasal Twice A Day 06/03/17 Discontinued Fluticasone Propionate 1 Ea [place], 1 Ea Nasal Twice A Day 06/13/16 [...] Times A Day as needed for Anxiety 04/11/17 Discontinued Hydroxyzine Hcl 25 Mg Tablet, 25 [...] 20 Mg Oral Every 6 Hours Discontinued Linezolid (Zyvox) 600 Mg Tablet, 600 Mg Oral Twice A Day 07/04/17 Discontinued Lisinopril (Prinivil) 10 Mg Tablet, 10 Mg Oral Daily 12/26/14 Discontinued Loratadine/Pseudoephedrine (Claritin-D 24 Hour Tablet) 1 Each Tab.er.24h, 1 Each Oral Daily Discontinued Lorazepam (Ativan) 1 Mg Tablet, Oral Twice A Day Discontinued Lorazepam (Ativan) 2 Mg Tablet, 2 [...] Tablet, 10 Mg Oral Daily Discontinued Methocarbamol 500 Mg Tablet, 500 Mg Oral Twice A Day Discontinued Methocarbamol (Robaxin) 500 Mg Tablet, 500 [...] Mg Oral Twice A Day Discontinued Mirtazapine (Remeron) 15 Mg Tab.rapdis, 15 Mg Oral Bedtime Discontinued Mirtazapine 15 Mg Tab, 7.5 Mg Oral Bedtime Discontinued Morphine Sulfate (Ms Contin) 30 Mg Tablet.er, 30 Mg Oral Every 6 Hours as needed for Pain Discontinued Morphine Sulfate (Morphine Sulfate Er) 30 [...] needed for Pain And Temperature 11/09/15 Discontinued [id number] 30 Mg Tabcr, 30 Mg Oral Daily [...] Twice A Day 08/06/14 Discontinued Promethazine Hcl (Phenergan Supp*) 25 Mg Supp, 1 Supp Rectal Twice A Day as needed for Nausea 06/27/17 Discontinued Promethazine Hcl 25 Mg Supp.rect, 1 Supp Rectal Twice A Day as needed for Nausea 07/04/17 Discontinued Promethazine Hcl (Phenergan) 25 Mg/1 Ml [...] Twice A Day 12/26/14 Discontinued Sucralfate 1 G/10 Ml Susp, 1 G Oral Before Meals And At Bedtime 06/03/17 Discontinued Sucralfate 1 Gm Tablet, 1 Gm [...] Left Eye Three Times A Day Discontinued Urea 85.05 Gm Cr, 0 Gm Topical Twice A Day 06/03/17 Discontinued Zolpidem Tartrate (Ambien) 10 Mg Tablet, 10 Mg Oral Bedtime as needed for Sleep Discontinued Zolpidem Tartrate (Ambien) 10 Mg Tablet, [...] Onset Date Status Hx Psychiatric Problems No 07/07/2017 8:54pm Not Applicable Not Applicable Hx Eating Disorder No 07/07/2017 8:54pm Not Applicable Not Applicable Hx Substance Use Disorder No 07/07/2017 8:54pm Not Applicable Not Applicable Hx Depression No 07/07/2017 8:54pm Not Applicable Not Applicable Hx Alcohol Use No 07/07/2017 8:54pm Not Applicable Not Applicable Hx Substance Use Treatment No 07/07/2017 8:54pm Not Applicable Not Applicable Hx Physical Abuse No 07/07/2017 8:54pm Not Applicable Not Applicable Smoking Status Start Date Stop Date Unknown if ever smoked Hospital Discharge Instructions No hospital discharge instruction information available. Plan of Care Discharge Date 07/14/17 1:57pm Disposition HOME, SELF-CARE Instructions/Education Provided Abdominal Pain - Adult Prescriptions See Medication Section Additional Instructions/Education DIET: 1 CAN OF NEPRO EVERY 4 HOURS THROUGH J -TUBE ACTIVITY TOLERATED CHANGE J TUBE DRESSING DAILY FOLLOW UP WITH PRIMARY DOCTOR NEEDED CRUSH ALL MEDICATIONS AND ADMINISTER THROUGH J-TUBE Functional Status Query Response Date Recorded Assistive Devices None July 07, 2017 9:36pm Ambulation Ability Independent July 07, 2017 9:36pm Toileting Ability Independent July 13, 2017 1:00pm Allergies, Adverse Reactions, Alerts Allergen Type Severity [...] Vital Signs Vital Response Date/Time Temperature (Fahrenheit) 97.2 degrees F (97.6 - 99.5) 07/14/2017 1:05pm Pulse Pulse Rate (adult) 113 bpm (60 - 90) 07/14/2017 1:05pm Respiratory Rate 20 bpm (12 - 24) 07/14/2017 1:05pm Blood Pressure 92/63 mm Hg 07/14/2017 1:05pm Height 5 ft 3 in 07/07/2017 2:06pm Weight 124.01 lb 07/11/2017 8:37am Body Mass Index 22.0 kg/m^2 07/11/2017 8:37am Results Laboratory Results Test Name Result Units Flags Reference Collection Date/Time Result Date/ Time Comments Reactive Lymphocytes 1 01/24/2017 6:19am 01/24/2017 8:25am Blast Cells % 1 01/24/2017 6:19am 01/24/2017 8:25am Clostridium Difficile Toxin A & B NEGATIVE NEGATIVE 01/31/2017 2:30am 01/31/2017 12:27pm Testing on stool aspirate specimens is outside poultice machine operator claims since specimen type not validated on this assay. Differential Total Cells Counted 100 06/03/2017 5:50am [...] with a HCV Nucleic Acid Amplification test ([id number]). [facility] [address] [address] Dir: Robles Samayoa MD For inquiries, the physician may contact Branch: [phone] Lab: [phone] Urine Test NEGATIVE NEGATIVE 06/06/2017 5:15pm 06/06/2017 7 :22pm Amylase Level 69 U/L 25-125 06/06/2017 11:30pm 06/06/2017 11:53pm Phospholipids Level 225 06/06/2017 11:30pm 06/12/2017 12:42pm Reference Range:150 - 250 mg/dL Results for this test are for research purposes only by the assay's poultice machine operator. The performance characteristics of this product have not been established. Results should not be used as a diagnostic procedure without confirmation of the diagnosis by another medically established diagnostic product or procedure. Testing performed by: [address] [id number] Dir. Santana Salmeron MD Stool Occult Blood [...] MG/DL 4.5-19.8 06/29/2017 1:00pm 06/29/2017 1: 47pm D-Dimer Quantitative (PE/DVT) 0.41 ug/mLFEU 0.00-0.45 07/02/2017 3:35pm 07/02/2017 7:02pm As with all in vitro diagnostic tests, the test results should be interpreted by the physician in conjunction with clinical findings and other test results. Test results are reported in NEW D-dimer units(ug/mLFEU). Hepatitis B Surface Antigen Negative Negative 07/03/2017 6:00am 07/04 10:14am Activated Partial Thromboplast Time 31.8 seconds 23.8-35.5 07/05/2017 9: 10am 07/05/2017 9:48am Urine Opiates Screen POSITIVE H NEGATIVE 07/05/2017 [...] Barbiturates 300 Benzodiazepine 300 Methadone 300 Urine Amorphous Sediment RARE FEW 07/05/2017 8:45am 07/05/2017 10: 13am B-Type Natriuretic Peptide 1451.8 pg/mL H 0-100 [...] ug/mL L 10-20 07/05/2017 9:10am 2017 9:58am White Blood Count 5.36 x10e3/uL 4.8-10.8 07/14/2017 6:07/14/2017 7 :13am Red Blood Count 3.85 x10e6/uL 3.6-5.1 07/14/2017 6:07/14/2017 7: 13am Hemoglobin 11.0 g/dL L 12.0-16.0 07/14/2017 6:07/14/2017 7:13am Hematocrit 37.4 % 34.2-44.1 07/14/2017 6:07/14/2017 7:13am Mean Corpuscular Volume 97.1 fL 81-99 07/14/2017 6:07/14/2017 7: 13am Mean Corpuscular Hemoglobin 28.6 pg 28-32 07/14/2017 6:07/14/2017 7:13am Mean Corpuscular Hemoglobin Concent 29.4 g/dL L 31-35 07/14/2017 6:07/14/2017 7:13am Red Cell Distribution Width 19.4 % H 11.7-14.4 07/14/2017 6:2017 7:13am Platelet Count 158 x10e3/uL 140-360 07/14/2017 6:07/14/2017 7: 13am Neutrophils (%) (Auto) 67.8 % 38.7-80.0 07/14/2017 6:07/14/2017 7: 13am Lymphocytes (%) (Auto) 21.5 % 18.0-39.1 07/14/2017 6:07/14/2017 7: 13am Monocytes (%) (Auto) 6.5 % 4.4-11.3 07/14/2017 6:07/14/2017 7: 13am Eosinophils (%) (Auto) 3.4 % 0.0-6.0 07/14/2017 6:20am 07/14/2017 7: 13am Basophils (%) (Auto) 0.4 % 0.0-1.0 07/14/2017 6:20am 07/14/2017 7:13am IM GRANULOCYTES % 0.4 % 0.0-1.0 07/14/2017 6:20am 07/14/2017 7:13am Neutrophils # (Auto) 3.6 2.1-6.9 07/14/2017 6:20am 07/14/2017 7:13am Lymphocytes # (Auto) 1.2 1.0-3.2 07/14/2017 6:20am 07/14/2017 7:13am Monocytes # (Auto) 0.4 0.2-0.8 07/14/2017 6:20am 07/14/2017 7:13am Eosinophils # (Auto) 0.2 0.0-0.4 07/14/2017 6:20am 07/14/2017 7:13am Basophils # (Auto) 0.0 0.0-0.1 07/14/2017 6:20am 07/14/2017 7:13am Absolute Immature Granulocyte (auto 0.02 x10e3/uL 0-0.1 07/14/2017 6: 20am 07/14/2017 7:13am Prothrombin Time 16.8 seconds H 11.9-14.5 07/12/2017 6:38am 07/12/2017 7 :18am Prothromb Time International Ratio 1.48 07/12/2017 6:38am 2017 7:18am Oral Anticoagulant Therapy INR Values: 1. Low Intensity Therapy 1.5 - 2.0 2. Moderate Intensity Therapy 2.0 - 3.0 3. High Intensity Therapy(1) 2.5 - 3.5 4. High Intensity Therapy(2) 3.0 - 4.0 5. Panic Value INR > 5.0 Urine Color YELLOW YELLOW 07/07/2017 3:28pm 07/07/2017 3:44pm Urine Clarity CLOUDY H CLEAR 07/07/2017 3:28pm 07/07/2017 3:44pm Urine Specific [place] 1.020 1.010-1.025 07/07/2017 3:28pm 2017 3:44pm Urine pH 6 5 - 7 07/07/2017 3:28pm 07/07/2017 3:44pm Urine Leukocyte Esterase 2+ H NEGATIVE 07/07/2017 3:28pm 07/07/2017 3: 44pm Urine Nitrite NEGATIVE NEGATIVE 07/07/2017 3:28pm 07/07/2017 3:44pm Urine Protein 2+ H NEGATIVE 07/07/2017 3:28pm 07/07/2017 3:44pm Urine Glucose (UA) NEGATIVE NEGATIVE 07/07/2017 3:28pm 07/07/2017 3: 44pm Urine Ketones NEGATIVE NEGATIVE 07/07/2017 3:28pm 07/07/2017 3:44pm Urine Urobilinogen 0.2 mg/dL 0.2 - 1 07/07/2017 3:28pm 07/07/2017 3: 44pm Urine Bilirubin NEGATIVE NEGATIVE 07/07/2017 3:28pm 07/07/2017 3: 44pm Urine Blood 2+ H NEGATIVE 07/07/2017 3:28pm 07/07/2017 3:44pm Urine WBC >50 /HPF H 0-5 07/07/2017 3:28pm 07/07/2017 3:56pm Urine RBC 0-5 /HPF 0-5 07/07/2017 3:28pm 07/07/2017 3:56pm Urine Bacteria NONE /HPF NONE 07/07/2017 3:28pm 07/07/2017 3:56pm Urine Epithelial Cells FEW /LPF NONE 07/07/2017 3:28pm 07/07/2017 3: 56pm Urine Yeast MODERATE H NONE 07/07/2017 3:28pm 07/07/2017 3:56pm Sodium Level 138 mmol/L 136-145 07/14/2017 6:20am 07/14/2017 7:37am Potassium Level 4.2 mmol/L 3.5-5.1 07/14/2017 6:20am 07/14/2017 7:37am Chloride Level 104 mmol/L 98-107 07/14/2017 6:20am 07/14/2017 7:37am Carbon Dioxide Level 23 mmol/L 22-29 07/14/2017 6:20am 07/14/2017 7: 37am Anion Gap 15.2 mmol/L 8-16 07/14/2017 6:2007/14/2017 7:37am Blood Urea Nitrogen 24 mg/dL # 7-26 07/14/2017 6:2007/14/2017 7:37am Creatinine 4.35 mg/dL H 0.57-1.11 07/14/2017 6:2007/14/2017 7:37am BUN/Creatinine Ratio 6 6-25 07/14/2017 6:2007/14/2017 7:37am Estimat Glomerular Filtration Rate 15 ML/MIN L 60- 07/14/2017 6:2004/2017 7:37am Ranges were taken from the National Kidney Disease Education Program and the National Kid[employer] Foundation literature. Reference ranges: 60 or greater: Normal 16-59 (for 3 consecutive months): Chronic kidney disease 15 or less: Kidney failure Glucose Level 229 mg/dL H 74-118 07/14/2017 6:20am 07/14/2017 7:37am Calcium Level 8.2 mg/dL L 8.4-10.2 07/14/2017 6:07/14/2017 7:37am Bedside Glucose 179 mg/dL H 70-120 07/14/2017 11:03am 07/14/2017 12: 06pm Meter ID: [id number] Phosphorus Level 4.5 MG/DL 2.3-4.7 07/10/2017 5:38am 07/10/2017 6:17am Magnesium Level 1.9 MG/DL 1.3-2.1 07/14/2017 6:2007/14/2017 7:37am Total Bilirubin 0.3 mg/dL 0.2-1.2 07/08/2017 4:10am 07/08/2017 4:39am Aspartate Amino Transf (AST/SGOT) 12 IU/L 5-34 07/08/2017 4:10am 2017 4:39am Alanine Aminotransferase (ALT/SGPT) 10 IU/L 0-55 07/08/2017 4:10am 4:39am Total Protein 6.8 g/dL 6.5-8.1 07/08/2017 4:10am 07/08/2017 4:39am Albumin 2.7 g/dL L 3.5-5.0 07/08/2017 4:10am 07/08/2017 4:39am Globulin 4.1 g/dL H 2.3-3.5 07/08/2017 4:10am 07/08/2017 4:39am Albumin/Globulin Ratio 0.7 L 0.8-2.0 07/08/2017 4:10am 07/08/2017 4: 39am Alkaline Phosphatase 141 IU/L 40-150 07/08/2017 4:10am 07/08/2017 4: 39am Human Chorionic Gonadotropin, Quant < 1.20 mIU/mL 0-10 07/08/2017 4: 10am 07/08/2017 3:51pm Hepatitis B Surface Antibody, Quant 437.4 mIU/mL Immunity>9.9 2017 6:40am 07/10/2017 7:08am Status of Immunity Anti- HBs Level Inconsistent with Immunity 0.0 - 9.9 Consistent with Immunity >9.9 Hepatitis Be Antibody Negative Negative 07/09/2017 6:40am 07/11/2017 3:06pm Performed at: [facility] [id number] Solutions Architect Consultant: Santana Salmeron MD, Phone: [phone] Hepatitis Be Antigen Negative Negative 07/10/2017 5:38am 07/11/2017 8 :07am Performed at: [facility] [id number] Solutions Architect Consultant: Robles Samayoa MD, Phone: [phone] Hepatitis B Core Total Antibody Negative Negative 07/09/2017 6:40am 07/10/2017 7:08am Performed at: [facility] [id number] Solutions Architect Consultant: Robles Samayoa MD, Phone: [phone] Microbiology Results Procedure Source Organism/Result Collection Date/Time Result Date/Time Result Status Urine Culture Urine,Clean Catch ESCHERICHIA COLI 03/30/2017 12:00am 2016 10:48am Final Urine Culture Urine,Random MARIUSZ GLABRATA 04/11/2017 3:00pm 04/16/2017 6 :14am Final Blood Culture Blood NO GROWTH AFTER 5 DAYS, FINAL REPORT 06/29/2017 1:45pm 07/04/2017 2:54pm Final Urine Culture Urine,[place] ENTEROCOCCUS FAECIUM-VRE 07/02/2017 6:03pm 07/05/2017 8:19am Final Urine Culture Urine,Catheterized MARIUSZ GLABRATA 07/07/2017 3:28pm 2017 8:15am Final Procedures Procedure Status Date Provider(s) INSERTION [...] REMOVAL OF INFUSION DEVICE FROM UPPER VEIN, CHIEF YEOMAN APPROACH Completed HANK SALMERON MD, SALMAN INSERT OF TUNNEL VAD INTO CHEST SUBCU/FASCIA, PERC APPROACH Completed HANK SALMERON MD, SALMAN PERFORMANCE OF URINARY FILTRATION, <6 HRS/DAY Completed 05/31/17 HANK SALMERON MD, SALMAN TRANSFUSE NONAUT RED BLOOD CELLS IN PERIPH VEIN, PERC Completed 06/03/17 UVALDO TERRY NP, SALMAN PERFORMANCE OF URINARY FILTRATION, <6 HRS/DAY Completed 06/03/17 UVALDO TERRY NP, SALMAN Esophagogastroduodenoscopy (EGD) with placement of percutaneous endoscopic gastrostomy (PEG) Active 07/08/17 GILBERTO HENSLEY MD EGD (esophagogastroduodenoscopy) Completed 07/09/17 GILBERTO HENSLEY MD EGD with biopsy Completed 07/09/17 GILBERTO HENSLEY MD Ultrasound guidance for vascular access Active 12/16/16 [...] Discharged Inpatient [facility] 07/10/17 8:42pm 07/14/17 1:57pm JOHN BAHENA MD Departed Emergency Room [facility] 07/05/17 7:44am 11:10am INA ELIAS Discharged Inpatient [facility] 07/02/17 7:25pm 07/04/17 2:44pm [...]
[2017-08-02] MEDS ORDERED: MORPHINE SULFATE 2 MG/ML SYR IV STA (15:35)
[2017-08-02] MEDS ORDERED: PROMETHAZINE 12.5MG/ NACL 0.9% 12.5 MG/50 ML BAG IV ONE (15:45)
[2017-08-02] MEDS ORDERED: DIPHENHYDRAMINE HCL INJ 50 MG/ML VIAL IV PRN (15:45)
[2017-08-02 16:20] LABS: BASOPHILS % 0.4 % (0.0-1.0); EOSINOPHILS # (AUTO) 0.1 (0.0-0.4); EOSINOPHILS % 1.8 % (0.0-6.0); HEMATOCRIT 33.1 % (34.2-44.1); LYMPHOCYTES # (AUTO) 0.6 (1.0-3.2); LYMPHOCYTES % 14.2 % (18.0-39.1); MEAN CORPUSCULAR HEMOGLOBIN 28.1 pg (28-32); MEAN CORPUSCULAR HGB CONC 30.2 g/dL (31-35); MONOCYTES # (AUTO) 0.3 (0.2-0.8); MONOCYTES % 5.6 % (4.4-11.3); NEUTROPHILS # (AUTO) 3.5 (2.1-6.9); NEUTROPHILS % 77.6 % (38.7-80.0); PLATELET COUNT 179 x10e3/uL (140-360); RED BLOOD COUNT 3.56 x10e6/uL (3.6-5.1); RED CELL DISTRIBUTION WIDTH 17.3 % (11.7-14.4)
--- NOTE | 2017-08-02 16:37 | Diagnostic Imaging Report ---
PROCEDURE: A single AP view of the chest. COMPARISON: Patients [facility], DX, CHEST SINGLE (PORTABLE), 07/07/2017, 17:40. INDICATIONS: SOB, LEG SWELLING FINDINGS: Lines/tubes: Stable right IJ dialysis catheter, left upper chest Port-A-Cath and left AICD Lungs: Lungs are hypoinflated. No consolidation Pleura: There is no pleural effusion or pneumothorax. Heart and mediastinum: Enlarged cardiac silhouette, central pulmonary venous congestion and perihilar interstitial edema. Bones: No acute bony abnormality. IMPRESSION: 1. enlarged cardiac silhouette, central pulmonary venous congestion and perihilar interstitial edema, likely reflecting fluid overload. Db Barth M.D. Dictated by: Db Barth M.D. on 08/02/2017 at 16:37 Electronically approved by: Db Barth M.D. on 08/02/2017 at 16:37
[2017-08-02 16:40] LABS: ALBUMIN 2.3 g/dL (3.5-5.0); ALBUMIN/GLOBULIN RATIO 0.6 (0.8-2.0); CREATININE, SERUM 3.2 mg/dL (0.57-1.11)
[2017-08-02] MEDS ORDERED: DEXTROSE 50% SYRINGE 50 ML IV PRN (17:00)
--- OUTSIDE RECORDS SUMMARY | 2017-08-02 17:11 | XMS REPORT | Clinical Summary ---
Author Author [facility] Address Unknown Phone Unavailable Care Team Providers Care News Correspondent Name Role Phone PCP Unavailable Allergies Active [...] failure (HCC) 08/22/2016 End stage renal disease ([facility]) 08/22/2016 IDDM (insulin dependent diabetes mellitus) ([facility]) 08/22/2016 Epilepsy ([facility]) 08/22/2016 Anxiety 08/22/2016 Chronic pain due to trauma 08/22/2016 Gastroparesis 08/22/2016 Diabetic polyneuropathy associated with type 1 diabetes mellitus (HCC) 08/22 Secondary hyperparathyroidism of renal origin ([facility]) 08/22/2016 Anemia in chronic kidney disease(285.21) 08/22/2016 Thrombocytopenia ([facility]) 08/22/2016 Pituitary tumor 08/22/2016 Benign hypertension with end-stage renal disease ([facility]) 08/22/2016 Neurogenic bladder 08/22/2016 Pre-transplant evaluation [...]
[2017-08-02] MEDS: INSULIN REGULAR, HUMAN 100 UNIT/1 ML 3ML VIAL SQ SCH (17:59)
[2017-08-02 19:00] LABS: BILIRUBIN,URINE NEGATIVE (NEGATIVE); CLARITY,URINE HAZY (CLEAR); COLOR,URINE YELLOW (YELLOW); KETONES,URINE NEGATIVE (NEGATIVE); LEUKOCYTE ESTERASE ,URINE 1+ (NEGATIVE); NITRITE,URINE NEGATIVE (NEGATIVE); PROTEIN,URINE DIPSTICK 2+ (NEGATIVE); URINE UROBILINOGEN 0.2 mg/dL (0.2 - 1)
[2017-08-02 19:09] LABS: BACTERIA,URINE MANY /HPF; EPITHELIAL CELLS,URINE RARE /LPF
[2017-08-02 19:30] VITALS: BP 145/105
[2017-08-02 20:00] VITALS: BP 154/113
[2017-08-02 21:13] VITALS: BP 154/113
[2017-08-02 21:15] VITALS: BP 154/113
[2017-08-02] MEDS ORDERED: HYDRALAZINE HCL 10 MG TAB PO PRN (21:45)
[2017-08-02] MEDS ORDERED: LORAZEPAM 0.5 MG TAB PO PRN (21:45)
[2017-08-02] MEDS ORDERED: LORAZEPAM 1 MG TAB PO PRN (22:00)
[2017-08-02] MEDS: CARVEDILOL 12.5 MG TAB PO SCH (22:00)
[2017-08-02] MEDS: MORPHINE SULFATE 2 MG/ML SYR IV PRN (22:15)
[2017-08-02] MEDS: DIPHENHYDRAMINE HCL INJ 50 MG/ML VIAL IV PRN (22:15)
[2017-08-02] MEDS: DILTIAZEM HCL 30 MG TAB PO SCH (22:30)
[2017-08-03] VITALS (7 sets, daily range): BP systolic 111–134; BP diastolic 70–93
[2017-08-03] MEDS: INSULIN REGULAR, HUMAN 100 UNIT/1 ML 3ML VIAL SQ SCH ×4 (09:22→21:00)
[2017-08-03] MEDS: CARVEDILOL 12.5 MG TAB PO SCH ×2 (09:22→17:00)
[2017-08-03] MEDS: DILTIAZEM HCL 30 MG TAB PO SCH ×2 (09:22→16:30)
[2017-08-03] MEDS: MORPHINE SULFATE 2 MG/ML SYR IV PRN (10:46)
[2017-08-03] MEDS: DIPHENHYDRAMINE HCL INJ 50 MG/ML VIAL IV PRN (10:46)
[2017-08-03] MEDS: FUROSEMIDE 40 MG TAB PO SCH ×2 (11:15→17:00)
[2017-08-03] MEDS ORDERED: HYDRALAZINE HCL 20 MG/ML VIAL IV PRN (11:15)
[2017-08-03] MEDS ORDERED: ALBUTEROL SULFATE HFA 8GM INHALATION AEROSOL INH PRN (11:15)
--- NOTE | 2017-08-03 12:48 | History and Physical ---
PRIMARY CARE PROVIDER: Dr. Ger Mukherjee CHIEF COMPLAINT: Lower extremity swelling and pain. HISTORY OF PRESENT ILLNESS: Ms. Jerri Bermeo is a 31-year-old lady with type 1 diabetes and end-stage renal disease, who is noncompliant with her dialysis. She presents now with a couple of days of increasing swelling in her lower extremities below the knee with some blister formation in the arch and heal of both feet consistent with volume overload. REVIEW OF SYSTEMS: She denies fever, chills or weight loss. She denies sinus congestion or sore throat. She denies chest pain or palpitations. She denies shortness of breath, wheezing or cough. She denies abdominal pain. She does have gastroesophageal reflux and she has gastroparesis. She does have some nausea and vomiting that she describes. She denied dysuria or flank pain. She denied easy bleeding or bruising. She denied headache, vertigo or loss of consciousness. She denied depression, agitation, homicide or suicidal ideation. PAST MEDICAL HISTORY: Significant for long-standing type 1 diabetes since age 13 with multiple complications, including diabetic gastroparesis, neurogenic bladder requiring a suprapubic catheter for a while, now she self-catheterizes and the catheter has been removed for infection reasons. She has end-stage renal disease, on dialysis. She has had a dialysis catheter placed. She also has diabetic peripheral neuropathy that is quite severe, which required chronic narcotic medication for pain control. She has end-stage renal disease as noted and is on dialysis 3 times a week. She does have a history of laparoscopic cholecystectomy a couple of years ago for abdominal pain. CURRENT MEDICATIONS 1. Albuterol nebulizer treatments and rescue inhaler. 2. Carvedilol 25 mg twice daily. 3. Klonopin 0.5 mg 3 times a day. 4. Diltiazem 30 mg 4 times a day. 5. Regular insulin subcutaneous a.c. and at night on a sliding scale. 6. Metoclopramide 10 mg 4 times a day before meals and at bedtime. 7. Symbicort inhaler twice daily. 8. Mirtazapine 15 mg daily. 9. Promethazine 50 mg 3 times a day as needed. 10. Nephro-Karyn. 11. Docusate 100 mg twice daily. 12. Epogen 10,000 units after dialysis on Saturday, Saturday and Saturday. 13. Lasix 80 mg twice daily. 14. Keppra 500 mg twice daily. 15. Dilantin 100 mg twice daily. 16. Polyethylene glycol MiraLAX 17 g packet at bedtime. FAMILY HISTORY: Significant for hypertension and diabetes. SOCIAL HISTORY: The patient is . British is her primary language. She does smoke, drink or use illegal drugs. She is generally independently functioning. PHYSICAL EXAMINATION PSYCHIATRIC: She is alert and oriented times 3 with normal mood and affect. There is some question about [place] by proxy as the patient seems to spend most of her life in the hospital. She is alert and oriented times 3 and in no acute distress. VITAL SIGNS: As follows: Blood pressure 121/78, pulse 105 and regular, respiratory rate 16, O2 sat 100% on room air, temperature 97.9. HEENT: Her head is atraumatic. Her eyes are anicteric with clear conjunctivae. Ears and nares are without erythema or discharge. Oropharynx is clear. NECK: Supple with no masses, thyromegaly. LYMPHATIC SYSTEM: She has no cervical, axillary or inguinal adenopathy. CARDIOVASCULAR: She has a regular rate and rhythm and somewhat tachycardic with no murmur. No extra heart sounds. She has no carotid bruits. She has 1+ pitting edema below the knees about the ankles mostly with some superficial blisters on the heels. She has very weak dorsal pedal pulses. RESPIRATORY: Lungs are clear to auscultation and percussion with normal respiratory effort. GASTROINTESTINAL: Her abdomen is soft without organomegaly, masses or tenderness. She has a J-tube in place that apparently is not functioning. She has normal bowel sounds present. CUTANEOUS: Her skin is warm and dry to touch. No rash or skin breakdown. She has superficial fluid-filled ulcers on the heels of her feet. MUSCULOSKELETAL: Her joints are in normal alignment without erythema or swelling. She has no calf tenderness. NEUROLOGIC: Nonfocal with intact cranial nerves and no motor or sensory deficits. DIAGNOSTIC STUDIES: Chest x-ray shows enlarged cardiac silhouette, pulmonary vascular congestion and perihilar edema. Her CBC shows a white count of 4.45 with a normal differential. Hemoglobin 10, hematocrit 33.1 and platelet count 179,000. Her chemistry profile shows normal electrolytes. CO2 is 23, creatinine 3.2, BUN 26 for a GFR of 21. Glucose 688. Transaminases, bilirubin and alk phos are normal. Calcium 7. Urine has 6-10 white cells and many bacteria. IMPRESSION AND PLAN 1. Diabetic foot ulcers: Will consult podiatry. 2. End-stage renal disease with volume overload: Will consult nephrology for hemodialysis and ultrafiltration. 3. Type 1 diabetes complicated by end-stage renal disease: Will be using sliding scale insulin. 4. Type 1 diabetes complicated by critical narrowing of right arteries the right leg. 5. Peripheral arterial disease with diabetic foot ulcers: Again, will consult podiatry and nephrology for volume management and for wound care to the feet. 6. 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 Recently, has been as low as 30%. She has no coronary disease and it is nonischemic. The patient is still on Lasix 80 mg twice daily and dialysis for volume control. She will continue with Coreg, hydralazine and diltiazem for blood pressure control. 7. Paroxysmal atrial fibrillation: The patient is currently in sinus rhythm. She is on diltiazem to prevent atrial fibrillation. 8. Gastroparesis: Patient will remain on Protonix and Reglan to prevent gastric reflux. 9. For prophylaxis, the patient is on heparin for deep venous thrombosis prophylaxis and Protonix for gastrointestinal prophylaxis. Job#: [id number] ULISSES
[2017-08-03] MEDS: PANTOPRAZOLE SOD 40 MG TABEC PO SCH ×2 (12:49→17:21)
[2017-08-03] MEDS: LEVETIRACETAM 500 MG TAB PO SCH ×2 (12:49→17:21)
[2017-08-03] MEDS: HEPARIN SOD (PORCINE) 5,000 UNIT/ML VIAL SC SCH ×2 (12:49→21:03)
[2017-08-03] MEDS: METOCLOPRAMIDE HCL 10 MG TAB PO SCH ×3 (12:50→21:01)
[2017-08-03] MEDS: PHENYTOIN SODIUM EXT REL 100 MG CAP PO SCH (12:50)
[2017-08-03] MEDS: MORPHINE SULFATE 30 MG TAB ER PO SCH ×2 (13:59→22:54)
[2017-08-03] MEDS: LORAZEPAM 1 MG TAB PO SCH ×2 (14:00→21:01)
[2017-08-03] MEDS ORDERED: SODIUM CHLORIDE 0.9% 1000ML 1,000 ML ONE (15:03)
[2017-08-03] MEDS ORDERED: DIPHENHYDRAMINE HCL INJ 50 MG/ML VIAL IV ONE (16:00)
[2017-08-03] MEDS: DOCUSATE SODIUM 100 MG CAP PO SCH (17:00)
[2017-08-03] MEDS ORDERED: SODIUM CHLORIDE 0.9% 250ML 500 ML IV PRN (17:30)
[2017-08-03] MEDS ORDERED: ALBUMIN HUMAN 12.5GM / 50ML IV PRN (17:30)
[2017-08-03] MEDS ORDERED: MANNITOL 25% 12.5GM/50 ML VIAL IV PRN (17:30)
[2017-08-03] MEDS ORDERED: HEPARIN SOD (PORCINE) 1000 UNIT/ML SDV IV PRN (17:30)
[2017-08-03] MEDS ORDERED: BUDESONIDE/FORMOTEROL 160/4.5MCG INHALER INH SCH (19:00)
[2017-08-03] MEDS ORDERED: SODIUM CHLORIDE 0.9% 250ML 250 ML ONE (20:25)
[2017-08-03] MEDS: DIPHENHYDRAMINE HCL 25 MG CAP PO PRN (21:00)
[2017-08-03] MEDS: PROMETHAZINE 12.5MG/ NACL 0.9% 12.5 MG/50 ML BAG IV PRN (21:00)
[2017-08-03] MEDS ORDERED: ZOLPIDEM TARTRATE 10 MG TAB PO SCH (21:00)
[2017-08-03] MEDS ORDERED: POLYETHYLENE GLYCOL 3350 17 GM PACK PO SCH (21:00)
[2017-08-04] VITALS: BP_SYST 123; BP_SYST 132; BP_DIAS 87; BP_DIAS 93
[2017-08-04] MEDS: PHENYTOIN SODIUM EXT REL 100 MG CAP PO SCH ×2 (00:23→11:42)
[2017-08-04 04:00] VITALS: BP 126/82
[2017-08-04 05:47] LABS: BASOPHILS % 0.5 % (0.0-1.0); EOSINOPHILS # (AUTO) 0.1 (0.0-0.4); EOSINOPHILS % 2.9 % (0.0-6.0); LYMPHOCYTES # (AUTO) 1.1 (1.0-3.2); LYMPHOCYTES % 26.7 % (18.0-39.1); MEAN CORPUSCULAR HEMOGLOBIN 28.3 pg (28-32); MEAN CORPUSCULAR HGB CONC 30.6 g/dL (31-35); MEAN CORPUSCULAR VOLUME 92.5 fL (81-99); MONOCYTES # (AUTO) 0.3 (0.2-0.8); MONOCYTES % 6.5 % (4.4-11.3); NEUTROPHILS # (AUTO) 2.6 (2.1-6.9); NEUTROPHILS % 63.2 % (38.7-80.0); PLATELET COUNT 153 x10e3/uL (140-360); RED BLOOD COUNT 3.89 x10e6/uL (3.6-5.1); RED CELL DISTRIBUTION WIDTH 17.6 % (11.7-14.4)
[2017-08-04 06:03] LABS: ANION GAP 9.2 mmol/L (8-16); CREATININE, SERUM 2.49 mg/dL (0.57-1.11); MAGNESIUM 1.7 MG/DL (1.3-2.1); POTASSIUM 4.2 mmol/L (3.5-5.1)
[2017-08-04] MEDS: METOCLOPRAMIDE HCL 10 MG TAB PO SCH ×2 (07:30→11:42)
[2017-08-04] MEDS: INSULIN REGULAR, HUMAN 100 UNIT/1 ML 3ML VIAL SQ SCH ×2 (07:30→11:30)
[2017-08-04 08:15] VITALS: BP 129/84
[2017-08-04] MEDS: DILTIAZEM HCL 30 MG TAB PO SCH (08:38)
[2017-08-04] MEDS: PANTOPRAZOLE SOD 40 MG TABEC PO SCH (08:38)
[2017-08-04] MEDS: LORAZEPAM 1 MG TAB PO SCH (08:38)
[2017-08-04] MEDS: DOCUSATE SODIUM 100 MG CAP PO SCH (08:38)
[2017-08-04] MEDS: CARVEDILOL 12.5 MG TAB PO SCH (08:39)
[2017-08-04] MEDS: MORPHINE SULFATE 30 MG TAB ER PO SCH (08:39)
[2017-08-04] MEDS: FUROSEMIDE 40 MG TAB PO SCH (08:39)
[2017-08-04] MEDS: LEVETIRACETAM 500 MG TAB PO SCH (08:39)
[2017-08-04] MEDS: HEPARIN SOD (PORCINE) 5,000 UNIT/ML VIAL SC SCH (08:40)
[2017-08-04] MEDS: DIPHENHYDRAMINE HCL 25 MG CAP PO PRN (09:15)
[2017-08-04] MEDS: PROMETHAZINE 12.5MG/ NACL 0.9% 12.5 MG/50 ML BAG IV PRN (09:15)
[2017-08-04 10:49] VITALS: BP 129/84
[2017-08-04 12:04] VITALS: BP 120/77
[2017-08-04] MEDS ORDERED: FUROSEMIDE INJ 10 MG/ML 4 ML VIAL IV ONE (13:15)
[2017-08-05] MEDS ORDERED: EPOETIN ALFA 10000 UNIT/ML VIAL SC SCH (11:15)
== END 2017-08-04 13:52 | disposition home or self-care (01) ==
LOC: ER 15:27 → ERHOLD 17:09 → IMCU 18:55
PROVIDERS: ADMIT Internal Medicine; ATTEND Internal Medicine
DX: E87.70 Fluid overload, unspecified (principal); E10.621 Type 1 diabetes mellitus with foot ulcer; L97.429 Non-pressure chronic ulcer of left heel and midfoot with unspecified severity; L97.419 Non-pressure chronic ulcer of right heel and midfoot with unspecified severity; Z79.4 Long term (current) use of insulin; E10.22 Type 1 diabetes mellitus with diabetic chronic kidney disease; I13.2 Hypertensive heart and chronic kidney disease with heart failure and with stage 5 chronic kidney disease, or end stage renal disease; N18.6 End stage renal disease; I50.42 Chronic combined systolic (congestive) and diastolic (congestive) heart failure; Z99.2 Dependence on renal dialysis; E10.51 Type 1 diabetes mellitus with diabetic peripheral angiopathy without gangrene; I48.0 Paroxysmal atrial fibrillation; Z79.01 Long term (current) use of anticoagulants; K31.84 Gastroparesis; I50.43 Acute on chronic combined systolic (congestive) and diastolic (congestive) heart failure; Z91.15 Patient's noncompliance with renal dialysis
CPT/HCPCS: 36415 ×3; 71045; 80048; 80053; 81001; 82948 ×3; 83605; 83735; 85025 ×2; 86704; 86706; 87086; 87186; 87340; 99284; G0257; G0378 ×3; J1200 ×2; J1642; J1644 ×3; J1940; J2270 ×2; J2550 ×3; J7030; J7050

== ENCOUNTER 2017-09-08 19:36 | Observation (INO) | payer OTHER ==
[~2017-09-08] VITALS: Ht 160 cm; Wt 68.9 kg
--- OUTSIDE RECORDS SUMMARY | 2017-09-08 19:40 | XMS REPORT | Continuity of Care Document ---
Author Author [facility] Organization [facility] Address [address] [place] [address] Phone Unavailable Care Team Providers Care Candy Dipper Hand Name Role Phone JOHN BAHENA MD PCP Insurance Providers Guarantor Sonam Bermeo Address [address] [place] [address] Email [email or web address] Payer [place] Medicaid Policy Number [id number] Subscriber's Name Sonam Bermeo Relationship 18 Self / Same As Patient Group Number [id number] Group Name [id number] Effective Date 16 Advance Directives Directive Response Recorded Date/Time Does the patient have an advance directive? No 08/02/17 9:16pm If yes, is advance directive on file with [facility]? No 08/02/17 9:16pm If not on file with [facility] will patient provide a copy? No 08/02/17 9:16pm Do you have a Directive to Physician? No 08/02/17 4:08pm Do you have a Medical Power of Home Health Outreach Coordinator? No 08/02/17 4:08pm Do you have an out of hospital Do Not Resuscitate Order? No 08/02/17 4:08pm Do you have any special needs we should be aware of? No 08/02/17 4:08pm Do you have a support person here with you today? Yes 08/02/17 4:08pm Did patient receive Notice of Privacy Practices? Yes 08/02/17 4:08pm Did patient receive patient rights and responsibilities? Yes 08/02/17 4:08pm Problems Medical Problem Onset Date Status Abdominal [...] Saturday, Saturday, And Saturday 30 Days 06/03/17 Folic Acid/Vitamin B Comp W-C (Dialyvite Tablet) [...] And At Bedtime 30 Days 06/03/17 Ipratropium [place] 0.2 Mg/1 Ml Solution 2.5 Ml Nebullizer [...] Mg Oral Every 7 Days Discontinued Butalb/Acetaminophen/Caffeine (Azowkl-Olcoirdo-Qpoi 50-325-40) 1 Each Tablet, Every 6 Hours [...] Tablet, 325 Mg Oral Daily Discontinued Fluconazole , 150 Mg Oral Use As Directed 07/14/17 Discontinued Fluconazole (Diflucan) 150 Mg Tablet, 150 Mg Oral Once 06/30/17 Discontinued Fluticasone Propionate 1 Ea [place], 0 Ea Nasal Twice A Day 06/03/17 Discontinued Fluticasone Propionate 1 Ea [place], 1 Ea Nasal Twice A Day 06/13/16 [...] needed for Pain And Temperature 11/09/15 Discontinued [id number] 30 Mg Tabcr, 30 Mg Oral Daily [...] Onset Date Status Hx Psychiatric Problems No 08/02/2017 9:16pm Not Applicable Not Applicable Hx Eating Disorder No 08/02/2017 9:16pm Not Applicable Not Applicable Hx Substance Use Disorder No 08/02/2017 9:16pm Not Applicable Not Applicable Hx Depression No 08/02/2017 9:16pm Not Applicable Not Applicable Hx Alcohol Use No 08/02/2017 9:16pm Not Applicable Not Applicable Hx Substance Use Treatment No 08/02/2017 9:16pm Not Applicable Not Applicable Hx Physical Abuse No 08/02/2017 9:16pm Not Applicable Not Applicable Smoking Status Start Date Stop Date Unknown if ever smoked Hospital Discharge Instructions No hospital discharge instruction information available. Plan of Care Discharge Date 08/04/17 1:52pm Disposition HOME, SELF-CARE Instructions/Education Provided Hemodialysis Vomiting - Adult Prescriptions See Medication Section Referrals SHITAL LEY DPM (Podiatry) Entered Date: 08/04/2017 12:37pm Address: [address] [place] [address] [place] [id number] Additional Instructions/Education f/u with pcp in 2 weeks f/u with Dr Ley as needed Functional Status Query Response Date Recorded Assistive Devices None August 02, 2017 7:30pm Ambulation Ability Independent August 02, 2017 7:30pm Toileting Ability Independent August 02, 2017 7:30pm Allergies, Adverse Reactions, Alerts Allergen Type Severity [...] Vital Signs Vital Response Date/Time Temperature (Fahrenheit) 96.4 degrees F (97.6 - 99.5) 08/04/2017 12:04pm Pulse Pulse Rate (adult) 101 bpm (60 - 90) 08/04/2017 12:04pm Respiratory Rate 16 bpm (12 - 24) 08/04/2017 12:04pm Blood Pressure 120/77 mm Hg 08/04/2017 12:04pm Height 5 ft 3 in 08/02/2017 3:27pm Weight 152.06 lb 08/03/2017 12:26am Body Mass Index 26.9 kg/m^2 08/03/2017 12:26am Results Laboratory Results Test Name Result Units Flags Reference Collection Date/Time Result Date/ Time Comments Reactive Lymphocytes 1 01/24/2017 6:19am 01/24/2017 8:25am Blast Cells % 1 01/24/2017 6:19am 01/24/2017 8:25am Clostridium Difficile Toxin A & B NEGATIVE NEGATIVE 01/31/2017 2:30am 01/31/2017 12:27pm Testing on stool aspirate specimens is outside claim inspector claims since specimen type not validated on [...] with a HCV Nucleic Acid Amplification test ([id number]). [facility] [address] [address] Dir: Robles Samayoa MD For inquiries, the physician may contact Branch: [phone] Lab: [phone] Urine Test NEGATIVE NEGATIVE 06/06/2017 5:15pm 06/06/2017 7 :22pm Amylase Level 69 U/L 25-125 06/06/2017 11:30pm 06/06/2017 11:53pm Phospholipids Level 225 06/06/2017 11:30pm 06/12/2017 12:42pm Reference Range:150 - 250 mg/dL Results for this test are for research purposes only by the assay's claim inspector. The performance characteristics of this product have not been established. Results should not be used as a diagnostic procedure without confirmation of the diagnosis by another medically established diagnostic product or procedure. Testing performed by: [address] [address] Dir. Santana Salmeron MD Stool [...] MODERATE H RARE 06/29/2017 12:03pm 06/29/2017 3:30pm D-Dimer Quantitative (PE/DVT) 0.41 ug/mLFEU 0.00-0.45 07/02/2017 [...] ug/mL L 10-20 07/05/2017 9:10am 2017 9:58am Prothrombin Time 16.8 seconds H 11.9-14.5 07/12/2017 6:38am 07/12/2017 7 :18am Prothromb Time International Ratio 1.48 07/12/2017 6:38am 2017 7:18am Oral Anticoagulant Therapy INR Values: 1. Low Intensity Therapy 1.5 - 2.0 2. Moderate Intensity Therapy 2.0 - 3.0 3. High Intensity Therapy(1) 2.5 - 3.5 4. High Intensity Therapy(2) 3.0 - 4.0 5. Panic Value INR > 5.0 Urine Yeast MODERATE H NONE 07/07/2017 3:28pm 07/07/2017 3:56pm Phosphorus Level 4.5 MG/DL 2.3-4.7 07/10/2017 5:38am 07/10/2017 6:17am Human Chorionic Gonadotropin, Quant < 1.20 mIU/mL 0-10 07/08/2017 4: 10am 07/08/2017 3:51pm Hepatitis B Surface Antibody, Quant 437.4 mIU/mL Immunity>9.9 2017 6:40am 07/10/2017 7:08am Status of Immunity Anti- HBs Level Inconsistent with Immunity 0.0 - 9.9 Consistent with Immunity >9.9 Hepatitis Be Antibody Negative Negative 07/09/2017 6:40am 07/11/2017 3:06pm Performed at: [facility] [id number] Marine Equipment Sales Engineer: Santana Salmeron MD, Phone: [phone] Hepatitis Be Antigen Negative Negative 07/10/2017 5:38am 07/11/2017 8 :07am Performed at: [facility] [address] [id number] Marine Equipment Sales Engineer: Robles Samayoa MD, Phone: [phone] Hepatitis B Core Total Antibody Negative Negative 07/09/2017 6:40am 07/10/2017 7:08am Performed at: - [facility] [address] [id number] Marine Equipment Sales Engineer: Robles Samayoa MD, Phone: [phone] White Blood Count 4.15 x10e3/uL L 4.8-10.8 08/04/2017 5:30am 08/04/2017 5:56am Red Blood Count 3.89 x10e6/uL 3.6-5.1 08/04/2017 5:30am 08/04/2017 5: 56am Hemoglobin 11.0 g/dL L 12.0-16.0 08/04/2017 5:30am 08/04/2017 5:56am Hematocrit 36.0 % 34.2-44.1 08/04/2017 5:30am 08/04/2017 5:56am Mean Corpuscular Volume 92.5 fL 81-99 08/04/2017 5:30am 08/04/2017 5: 56am Mean Corpuscular Hemoglobin 28.3 pg 28-32 08/04/2017 5:30am 08/04/2017 5:56am Mean Corpuscular Hemoglobin Concent 30.6 g/dL L 31-35 08/04/2017 5:30am 08/04/2017 5:56am Red Cell Distribution Width 17.6 % H 11.7-14.4 08/04/2017 5:30am 2017 5:56am Platelet Count 153 x10e3/uL 140-360 08/04/2017 5:30am 08/04/2017 5: 56am Neutrophils (%) (Auto) 63.2 % 38.7-80.0 08/04/2017 5:30am 08/04/2017 5: 56am Lymphocytes (%) (Auto) 26.7 % 18.0-39.1 08/04/2017 5:30am 08/04/2017 5: 56am Monocytes (%) (Auto) 6.5 % 4.4-11.3 08/04/2017 5:30am 08/04/2017 5: 56am Eosinophils (%) (Auto) 2.9 % 0.0-6.0 08/04/2017 5:30am 08/04/2017 5: 56am Basophils (%) (Auto) 0.5 % 0.0-1.0 08/04/2017 5:30am 08/04/2017 5:56am IM GRANULOCYTES % 0.2 % 0.0-1.0 08/04/2017 5:30am 08/04/2017 5:56am Neutrophils # (Auto) 2.6 2.1-6.9 08/04/2017 5:30am 08/04/2017 5:56am Lymphocytes # (Auto) 1.1 1.0-3.2 08/04/2017 5:30am 08/04/2017 5:56am Monocytes # (Auto) 0.3 0.2-0.8 08/04/2017 5:30am 08/04/2017 5:56am Eosinophils # (Auto) 0.1 0.0-0.4 08/04/2017 5:30am 08/04/2017 5:56am Basophils # (Auto) 0.0 0.0-0.1 08/04/2017 5:30am 08/04/2017 5:56am Absolute Immature Granulocyte (auto 0.01 x10e3/uL 0-0.1 08/04/2017 5: 30am 08/04/2017 5:56am Urine Color YELLOW YELLOW 08/02/2017 6:20pm 08/02/2017 7:00pm Urine Clarity HAZY CLEAR 08/02/2017 6:20pm 08/02/2017 7:00pm Urine Specific [place] 1.015 1.010-1.025 08/02/2017 6:20pm 2017 7:00pm Urine pH 5 5 - 7 08/02/2017 6:20pm 08/02/2017 7:00pm Urine Leukocyte Esterase 1+ H NEGATIVE 08/02/2017 6:20pm 08/02/2017 7: 00pm Urine Nitrite NEGATIVE NEGATIVE 08/02/2017 6:20pm 08/02/2017 7:00pm Urine Protein 2+ H NEGATIVE 08/02/2017 6:20pm 08/02/2017 7:00pm Urine Glucose (UA) 2+ H NEGATIVE 08/02/2017 6:20pm 08/02/2017 7:00pm Urine Ketones NEGATIVE NEGATIVE 08/02/2017 6:20pm 08/02/2017 7:00pm Urine Urobilinogen 0.2 mg/dL 0.2 - 1 08/02/2017 6:20pm 08/02/2017 7: 00pm Urine Bilirubin NEGATIVE NEGATIVE 08/02/2017 6:20pm 08/02/2017 7: 00pm Urine Blood 3+ H NEGATIVE 08/02/2017 6:20pm 08/02/2017 7:00pm Urine WBC 6-10 /HPF H 0-5 08/02/2017 6:20pm 08/02/2017 7:09pm Urine RBC NONE /HPF 0-5 08/02/2017 6:20pm 08/02/2017 7:09pm Urine Bacteria MANY /HPF H NONE 08/02/2017 6:20pm 08/02/2017 7:09pm Urine Epithelial Cells RARE /LPF NONE 08/02/2017 6:20pm 08/02/2017 7: 09pm Sodium Level 137 mmol/L # 136-145 08/04/2017 5:30am 08/04/2017 6:04am Potassium Level 4.2 mmol/L 3.5-5.1 08/04/2017 5:30am 08/04/2017 6:04am Chloride Level 104 mmol/L 98-107 08/04/2017 5:30am 08/04/2017 6:04am Carbon Dioxide Level 28 mmol/L 22-08/04/2017 5:30am 08/04/2017 6: 04am Anion Gap 9.2 mmol/L 8-16 08/04/2017 5:30am 08/04/2017 6:04am Blood Urea Nitrogen 15 mg/dL 7-08/04/2017 5:30am 08/04/2017 6:04am Creatinine 2.49 mg/dL H 0.57-1.11 08/04/2017 5:30am 08/04/2017 6:04am BUN/Creatinine Ratio 6 6-08/04/2017 5:30am 08/04/2017 6:04am Estimat Glomerular Filtration Rate 28 ML/MIN L 60- 08/04/2017 5:30am 6:04am Ranges were taken from the National Kidney Disease Education Program and the National Kidney Foundation literature. Reference ranges: 60 or greater: Normal 16-59 (for 3 consecutive months): Chronic kidney disease 15 or less: Kidney failure Glucose Level 304 mg/dL H 74-118 08/04/2017 5:30am 08/04/2017 6:04am Calcium Level 8.0 mg/dL L 8.4-10.2 08/04/2017 5:30am 08/04/2017 6:04am Bedside Glucose 225 mg/dL H 70-120 08/04/2017 11:20am 08/04/2017 11: 53am Meter ID: [id number] Lactic Acid Level 15.3 MG/DL 4.5-19.8 08/02/2017 6:20pm 08/02/2017 7: 06pm Magnesium Level 1.7 MG/DL 1.3-2.1 08/04/2017 5:30am 08/04/2017 6:04am Total Bilirubin 0.3 mg/dL 0.2-1.2 08/02/2017 4:00pm 08/02/2017 4:42pm Aspartate Amino Transf (AST/SGOT) 18 IU/L 5-34 08/02/2017 4:00pm 2017 4:42pm Alanine Aminotransferase (ALT/SGPT) 20 IU/L 0-55 08/02/2017 4:00pm 4:42pm Total Protein 6.0 g/dL L 6.5-8.1 08/02/2017 4:00pm 08/02/2017 4:42pm Albumin 2.3 g/dL L 3.5-5.0 08/02/2017 4:00pm 08/02/2017 4:42pm Globulin 3.7 g/dL H 2.3-3.5 08/02/2017 4:00pm 08/02/2017 4:42pm Albumin/Globulin Ratio 0.6 L 0.8-2.0 08/02/2017 4:00pm 08/02/2017 4: 42pm Alkaline Phosphatase 143 IU/L 40-150 08/02/2017 4:00pm 08/02/2017 4: 42pm Microbiology Results Procedure Source Organism/Result Collection Date/Time Result Date/Time Result Status Urine Culture Urine,Random MARIUSZ GLABRATA 04/11/2017 3:00pm 04/16/2017 6 :14am Final Blood Culture Blood NO GROWTH AFTER 5 DAYS, FINAL REPORT 06/29/2017 1:45pm 07/04/2017 2:54pm Final Urine Culture Urine,[place] ENTEROCOCCUS FAECIUM-VRE 07/02/2017 6:03pm 07/05/2017 8:19am Final Urine Culture Urine,Catheterized MARIUSZ GLABRATA 07/07/2017 3:28pm 2017 8:15am Final Urine Culture Urine,Clean Catch GRAM NEGATIVE APRIL 08/03/2017 6:20pm 2017 10:40am Preliminary Procedures Procedure Status Date Provider(s) INSERTION [...] EXCISION OF STOMACH, ENDO, DIAGN Completed 04/01/17 HENSLEYGILBERTO WALL MD, JORGE DPM TRANSFUSE NONAUT RED BLOOD CELLS IN PERIPH VEIN, PERC Completed 04/06/17 MODE SIFUENTES MD PERFORMANCE OF URINARY FILTRATION, <6 HRS/DAY Completed 04/05/17 LIVAN AVENDAÑO INSERTION OF INFUSION DEV INTO SUP VENA CAVA, PERC APPROACH Completed HANK SALMERON MD, SALMAN FLUOROSCOPY OF OTHER VEINS USING LOW OSMOLAR CONTRAST Completed 05/31/17 HANK SALMERON MD, SALMAN REMOVAL OF INFUSION DEVICE FROM UPPER VEIN, BEE TENDER APPROACH Completed HANK SALMERON MD, SALMAN INSERT OF TUNNEL VAD INTO CHEST SUBCU/FASCIA, PERC APPROACH Completed HANK SALMERON MD, SALMAN PERFORMANCE OF URINARY FILTRATION, <6 HRS/DAY Completed 05/31/17 HANK SALMERON MD, SALMAN TRANSFUSE NONAUT RED BLOOD CELLS IN PERIPH VEIN, PERC Completed 06/03/17 UVALDO TERRY NP, SALMAN PERFORMANCE OF URINARY FILTRATION, <6 HRS/DAY Completed 06/03/17 UVALDO TERRY NP, SALMAN PERFORMANCE OF URINARY FILTRATION, <6 HRS/DAY Completed 06/29/17 LIVAN AVENDAÑO EXCISION OF STOMACH, PYLORUS, ENDO, DIAGN Completed 07/09/17 GILBERTO HENSLEY MD INSERTION OF FEEDING DEVICE INTO JEJUNUM, ENDO Completed 07/12/17 NANCY VALLE DO PERFORMANCE OF URINARY FILTRATION, <6 HRS/DAY Completed 07/10/17 LIVAN AVENDAÑO Ultrasound guidance for vascular access [...] without radiopaque contrast Active 02/13/17 MAGNO MORFIN L [facility] AIDE Computed tomography of cervical spine without contrast Active 02/13/17 MAGNO MORFIN L GERIC[facility] AIDE CT of abdomen and pelvis without contrast Active 02/13/17 MAGNO MORFIN L [employer]IC[employer] AIDE Computed tomography of brain without radiopaque contrast Active 04/04/17 UVALDO TERRY G[employer]ICARE AIDE US abdomen complete Active 04/05/17 UVALDO TERRY GERICARE AIDE X-ray of chest, single view Active 04/16/[address] of abdomen and pelvis without contrast Active 04/17/17 AMELIA COPPOLA X-ray of chest, single view Active 05/30/[address] of abdomen and pelvis without contrast Active 06/05/[address] of abdomen and pelvis without contrast Active 06/29/17 INA ELIAS US abdomen complete Active 06/30/17 UVALDO TERRY [employer] AIDE Encounters Encounter Location Arrival/Admit Date Discharge/Depart Date Attending Provider Discharged Inpatient (obs) [facility] 08/02/17 5:09pm 1:52pm JOHN BAHENA MD [facility]patient [facility] [...]
--- OUTSIDE RECORDS SUMMARY | 2017-09-08 19:40 | XMS REPORT | Clinical Summary ---
Author Author [facility] Address Unknown Phone Unavailable Care Team Providers Care Sanitarian Inspector Name Role Phone PCP Unavailable Allergies Active [...] failure (HCC) 08/22/2016 End stage renal disease ([facility]) 08/22/2016 IDDM (insulin dependent diabetes mellitus) ([facility]) 08/22/2016 Epilepsy ([facility]) 08/22/2016 Anxiety 08/22/2016 Chronic pain due to trauma 08/22/2016 Gastroparesis 08/22/2016 Diabetic polyneuropathy associated with type 1 diabetes mellitus (HCC) 08/22 Secondary hyperparathyroidism of renal origin ([facility]) 08/22/2016 Anemia in chronic kidney disease(285.21) 08/22/2016 Thrombocytopenia ([facility]) 08/22/2016 Pituitary tumor 08/22/2016 Benign hypertension with end-stage renal disease ([facility]) 08/22/2016 Neurogenic bladder 08/22/2016 Pre-transplant evaluation for [...] closed.) 10/08/2016 Abstract Transplant Augustina Pozo RN after 09/07/2016 Social History Tobacco Use Types Packs/Day Years Used Date Never Smoker Alcohol Use Drinks/Week oz/Week Comments No Sex Assigned at Date Recorded Not on file Last Filed Vital Signs Not on file Plan of Treatment Health Maintenance Due Date Last Done Comments INFLUENZA VACCINE 01/13/2018 Results Not on fileafter 09/07/2016
[2017-09-08] MEDS ORDERED: DIPHENHYDRAMINE HCL INJ 50 MG/ML VIAL IV ONE (20:30)
[2017-09-08] MEDS ORDERED: MECLIZINE HCL 12.5 MG TAB PO ONE (20:30)
[2017-09-08 20:51] LABS: BASOPHILS % 0.2 % (0.0-1.0); EOSINOPHILS # (AUTO) 0.1 (0.0-0.4); EOSINOPHILS % 1.9 % (0.0-6.0); HEMATOCRIT 25.2 % (34.2-44.1); HEMOGLOBIN 7.3 g/dL (12.0-16.0); LYMPHOCYTES # (AUTO) 0.8 (1.0-3.2); LYMPHOCYTES % 18.1 % (18.0-39.1); MEAN CORPUSCULAR HEMOGLOBIN 26.9 pg (28-32); MONOCYTES # (AUTO) 0.3 (0.2-0.8); MONOCYTES % 6.9 % (4.4-11.3); NEUTROPHILS # (AUTO) 3.4 (2.1-6.9); NEUTROPHILS % 72.7 % (38.7-80.0); PLATELET COUNT 119 x10e3/uL (140-360); RED BLOOD COUNT 2.71 x10e6/uL (3.6-5.1); RED CELL DISTRIBUTION WIDTH 15.9 % (11.7-14.4)
[2017-09-08 21:08] LABS: ALBUMIN 2.8 g/dL (3.5-5.0); ALBUMIN/GLOBULIN RATIO 0.8 (0.8-2.0); ANION GAP 11.6 mmol/L (8-16); CALCIUM 8.6 mg/dL (8.4-10.2); CREATININE, SERUM 3.04 mg/dL (0.57-1.11); POTASSIUM 4.6 mmol/L (3.5-5.1)
[2017-09-08 21:14] LABS: CREATINE KINASE MB 2.3 ng/mL (0-5.0)
[2017-09-08] MEDS ORDERED: ACETAMINOPHEN 1000 MG/100 ML IV STA (21:19)
--- NOTE | 2017-09-08 21:26 | Diagnostic Imaging Report ---
EXAM: CHEST SINGLE (PORTABLE), AP 1 view INDICATION: Dizziness, vomiting COMPARISON: AP view of the chest August 02, 2017 FINDINGS: LINES/TUBES: Stable position right internal jugular vein tunneled hemodialysis catheter and left subclavian chest port and percutaneous ICD. LUNGS: Pulmonary edema. PLEURA: No effusions or pneumothorax. HEART AND MEDIASTINUM: Stable mild cardiac enlargement. BONES AND SOFT TISSUES: No acute findings. IMPRESSION: Cardiomegaly and pulmonary edema, similar to prior exam. Signed by: Dr. Emili Godinez M.D. on 09/08/2017 9:22 PM
--- NOTE | 2017-09-08 22:04 | Diagnostic Imaging Report ---
EXAM: THORACIC SPINE 2VW, AP and lateral DATE: 09/08/2017 8:12 PM Time stamp on exam: 2133 hours INDICATION: Fall, upper back pain COMPARISON: None FINDINGS: BONES: The alignment is within normal limits. No acute displaced fractures. No lytic or blastic lesions. DISCS: The disc-spaces are well-maintained. JOINTS: The facet joints are unremarkable. SOFT TISSUES: Partially visualized right internal jugular vein tunneled hemodialysis catheter and left chest port and percutaneous ICD. Right upper quadrant surgical clips. IMPRESSION: No acute thoracic spine radiographic findings. Signed by: Dr. Emili Godinez M.D. on 09/08/2017 10:00 PM
--- NOTE | 2017-09-08 22:16 | Diagnostic Imaging Report ---
History: Fall, pain Comparison studies:None Technique: Axial images were obtained from the brain and cervical spine. Coronal and sagittal images reconstructed from the axial data. Intravenous contrast: None Findings: Head CT: Scalp/skull: No abnormalities. No fractures, blastic or lytic lesions. Brain sulci: Appropriate for age. Ventricles: Normal in size and configuration. No hydrocephalus. Extra-axial spaces: No masses. No fluid collections. Parenchyma: No abnormal densities. No masses, hemorrhage, acute or chronic cortical vascular insults. Sellar/suprasellar region: No abnormalities. Craniocervical junction: Patent foramen magnum. No Chiari one malformation. Cervical spine CT: Fractures: None. Soft tissues: No gross abnormalities. Atlantoaxial articulation: Intact. Alignment: Normal lordosis. No scoliosis. Cervicomedullary junction: No abnormalities. Patent foramen magnum. Vertebrae: No infection or neoplasm. Degenerative changes: None. Incidental findings: None. Impression: Head CT: 1. Normal. Cervical spine CT: 1. No abnormalities. 2. Cannot exclude ligament, spinal cord and or vascular abnormalities on the basis of this examination. Signed by: DR Carlos Ahuja M.D. on 09/08/2017 10:12 PM
--- OUTSIDE RECORDS SUMMARY | 2017-09-08 22:44 | XMS REPORT | Clinical Summary ---
Author Author [facility] Address Unknown Phone Unavailable Care Team Providers Care Barley Steeper Name Role Phone PCP Unavailable Allergies Active [...] failure (HCC) 08/22/2016 End stage renal disease ([facility]) 08/22/2016 IDDM (insulin dependent diabetes mellitus) ([facility]) 08/22/2016 Epilepsy ([facility]) 08/22/2016 Anxiety 08/22/2016 Chronic pain due to trauma 08/22/2016 Gastroparesis 08/22/2016 Diabetic polyneuropathy associated with type 1 diabetes mellitus (HCC) 08/22 Secondary hyperparathyroidism of renal origin ([facility]) 08/22/2016 Anemia in chronic kidney disease(285.21) 08/22/2016 Thrombocytopenia ([facility]) 08/22/2016 Pituitary tumor 08/22/2016 Benign hypertension with end-stage renal disease ([facility]) 08/22/2016 Neurogenic bladder 08/22/2016 Pre-transplant evaluation for [...]
[2017-09-08] MEDS ORDERED: SODIUM CHLORIDE FLUSH 10 ML SYR INJ PRN (22:45)
[2017-09-08] MEDS ORDERED: DEXTROSE 50% SYRINGE 50 ML IV PRN (22:45)
[2017-09-08] MEDS ORDERED: SODIUM CHLORIDE 0.9% 250ML 250 ML IV ONE (22:45)
[2017-09-08] MEDS ORDERED: FUROSEMIDE INJ 10 MG/ML 2 ML VIAL IV SCH (22:45)
[2017-09-09] VITALS (8 sets, daily range): BP systolic 108–143; BP diastolic 66–90
[2017-09-09] MEDS ORDERED: CLONAZEPAM 0.5 MG TAB PO PRN
[2017-09-09] MEDS ORDERED: IPRATROPIUM BROMIDE 0.02% 2.5 ML NEB NEB SCH
[2017-09-09] MEDS ORDERED: DIPHENHYDRAMINE HCL 25 MG CAP PO PRN
[2017-09-09] MEDS ORDERED: SODIUM CHLORIDE 0.9% 250ML 250 ML ONE ×2 (00:23→12:16)
[2017-09-09] MEDS: MORPHINE SULFATE 30 MG TAB ER PO SCH ×3 (00:46→17:43)
[2017-09-09] MEDS: PROMETHAZINE 12.5MG/ NACL 0.9% 12.5 MG/50 ML BAG IV PRN ×3 (00:47→23:19)
[2017-09-09 06:35] LABS: BASOPHILS % 0.3 % (0.0-1.0); EOSINOPHILS # (AUTO) 0.1 (0.0-0.4); EOSINOPHILS % 1.7 % (0.0-6.0); HEMATOCRIT 25.3 % (34.2-44.1); HEMOGLOBIN 7.3 g/dL (12.0-16.0); LYMPHOCYTES % 26.7 % (18.0-39.1); MEAN CORPUSCULAR HEMOGLOBIN 27.1 pg (28-32); MEAN CORPUSCULAR HGB CONC 28.9 g/dL (31-35); MEAN CORPUSCULAR VOLUME 94.1 fL (81-99); MONOCYTES # (AUTO) 0.2 (0.2-0.8); MONOCYTES % 4.7 % (4.4-11.3); NEUTROPHILS # (AUTO) 2.4 (2.1-6.9); NEUTROPHILS % 66.3 % (38.7-80.0); PLATELET COUNT 111 x10e3/uL (140-360); RED BLOOD COUNT 2.69 x10e6/uL (3.6-5.1); RED CELL DISTRIBUTION WIDTH 15.9 % (11.7-14.4)
[2017-09-09 06:59] LABS: ALBUMIN 2.6 g/dL (3.5-5.0); ALBUMIN/GLOBULIN RATIO 0.7 (0.8-2.0); ANION GAP 12.4 mmol/L (8-16); CALCIUM 8.4 mg/dL (8.4-10.2); CREATININE, SERUM 3.18 mg/dL (0.57-1.11); POTASSIUM 4.4 mmol/L (3.5-5.1)
[2017-09-09 07:19] LABS: CREATINE KINASE MB 1.7 ng/mL (0-5.0)
[2017-09-09] MEDS: METOCLOPRAMIDE HCL 10 MG TAB PO SCH ×4 (07:30→21:21)
[2017-09-09] MEDS: INSULIN REGULAR, HUMAN 100 UNIT/1 ML 3ML VIAL SQ SCH ×4 (07:30→21:46)
[2017-09-09] MEDS: PANTOPRAZOLE SODIUM 40 MG SUSPDR.PKT PO SCH ×2 (07:30→17:42)
[2017-09-09] MEDS ORDERED: INSULIN REGULAR, HUMAN 100 UNIT/1 ML 3ML VIAL SQ SCH (07:30)
[2017-09-09 07:59] LABS: ANISOCYTOSIS SLIGHT; HYPOCHROMASIA MODERATE; PLATELET ESTIMATE MODERATELY DECREASED; PLATELET MORPHOLOGY COMMENT NORMAL; POIKILOCYTOSIS SLIGHT; RBC MORPHOLOGY COMMENT ABNORMAL
[2017-09-09] MEDS ORDERED: LEVALBUTEROL HCL SOLN NEBU 0.63 MG/3 ML NEB INH PRN (08:45)
[2017-09-09] MEDS ORDERED: EPOETIN ALFA 10000 UNIT/ML VIAL SC SCH (09:00)
[2017-09-09] MEDS: BUDESONIDE/FORMOTEROL 160/4.5MCG INHALER INH SCH ×2 (09:00→19:47)
[2017-09-09] MEDS: CARVEDILOL 12.5 MG TAB PO SCH ×2 (09:00→15:36)
[2017-09-09] MEDS: POLYETHYLENE GLYCOL 3350 17 GM PACK PO SCH (09:00)
[2017-09-09] MEDS: DOCUSATE SODIUM 100 MG CAP PO SCH ×2 (09:00→17:00)
[2017-09-09] MEDS: DILTIAZEM HCL 30 MG TAB PO SCH ×4 (09:00→21:21)
[2017-09-09] MEDS: FUROSEMIDE 40 MG TAB PO SCH ×2 (09:00→17:43)
[2017-09-09] MEDS: LEVETIRACETAM 500 MG TAB PO SCH ×2 (09:36→17:43)
[2017-09-09] MEDS ORDERED: DIPHENHYDRAMINE HCL INJ 50 MG/ML VIAL IV ONE (10:25)
[2017-09-09] MEDS: PHENYTOIN SODIUM EXT REL 100 MG CAP PO SCH ×2 (12:00)
[2017-09-09 15:04] LABS: CREATINE KINASE MB 1.3 ng/mL (0-5.0)
--- NOTE | 2017-09-09 15:39 | History and Physical ---
PRIMARY CARE PROVIDER: Dr. Ger Mukherjee CHIEF COMPLAINT: Status post fall and shortness of breath. HISTORY OF PRESENT ILLNESS: Ms. Bermeo is a 31-year-old lady with end-stage renal disease who has had no hemodialysis for about 5 or 6 days due to issues at her dialysis center. She is complaining of shortness of breath and weakness, and she fell at home, hitting her head. There was no loss of consciousness. She denies chest pain. REVIEW OF SYSTEMS: She denies fever, chills or weight loss. She denies sinus congestion or sore throat. She denies chest pain or palpitations. She has shortness of breath and dyspnea with exertion. She denies wheezing or cough. She denies abdominal pain, nausea or vomiting. She does have chronic gastroparesis. She has a PEG tube in place. She denies dysuria or flank pain. She denies rash or pruritus. She has some neck pain and back pain related to the fall. She denies vertigo or loss of consciousness. She denies depression, agitation, homicidal or suicidal ideation. PAST MEDICAL HISTORY: Significant for longstanding, type-1 diabetes diagnosed at age 13 with multiple complications including diabetic peripheral neuropathy and diabetic autonomic neuropathy with neurogenic bladder requiring self-catheterization. She has end-stage renal disease due to nephropathy. She also has longstanding hypertension. She has had episodes of paroxysmal atrial fibrillation in the past and has hypertensive heart disease with chronic systolic heart failure with an ejection fraction of 40% to 45%. She also has a history of seizure disorder and persistent asthma. MEDICATIONS: Her regular medications include: 1. Nephro-Karyn vitamin daily. 2. Albuterol as needed. 3. Seven units of insulin with each meal and sliding-scale insulin as well. 4. Symbicort inhaler twice daily. 5. Coreg 25 mg twice a day. 6. Klonopin 0.5 mg 3 times a day. 7. Cardizem 30 mg 4 times a day. 8. Colace 100 mg twice a day. 9. Epogen 10,000 units at hemodialysis. 10. Lasix 80 mg twice a day. 11. Keppra 500 mg twice daily. 12. Metoclopramide 10 mg before meals and at bedtime. 13. Remeron 15 mg at bedtime. 14. Morphine 30 mg twice daily long-acting. 15. Protonix 40 mg twice a day before meals. 16. Dilantin 100 mg twice a day. 17. MiraLAX 17 grams daily. ALLERGIES: SHE HAS STATED ALLERGIES TO LATEX, RUBBER, PENICILLIN, ZOFRAN, TORADOL AND DILAUDID. PAST SURGICAL HISTORY: Significant for cholecystectomy. FAMILY HISTORY: Unremarkable. SOCIAL HISTORY: The patient is . [place] is her primary language. She lives with her mom who takes care of her. She does not smoke, drink or use illegal drugs. She is generally independently functioning. PHYSICAL EXAMINATION PSYCHIATRIC: She is alert and oriented times 3 with normal mood and affect. CONSTITUTIONAL: She has a normal body habitus, is in no acute distress. VITAL SIGNS: Blood pressure 136/85. Pulse 111 and regular. Respiratory rate 19. O2 sat 96% on room air. Temperature 96.8. HEENT: Head is atraumatic. Eyes are anicteric with clear conjunctivae. Ears and nares are without erythema or discharge. Oropharynx is clear. NECK: Supple, with no mass or thyromegaly. LYMPHATIC SYSTEM: She has no palpable cervical, axillary or inguinal adenopathy. CARDIOVASCULAR: Her heart has a regular rate and rhythm, somewhat tachycardic, without murmur. She has trace bipedal edema. She has weak dorsal pedal pulses. No carotid bruit. RESPIRATORY: Lungs reveal some basilar crackles. Otherwise, clear to auscultation and percussion with normal respiratory effort. GASTROINTESTINAL: Abdomen is soft without organomegaly, masses or tenderness. She has a functional PEG tube in place, and normal bowel sounds are present. CUTANEOUS: Her skin is warm and dry to touch with no rash or skin breakdown. MUSCULOSKELETAL: Her joints are in normal alignment without erythema or swelling. She has no calf tenderness. NEUROLOGIC: Exam is nonfocal with intact cranial nerves and no motor or sensory deficits other than decreased fine touch in the lower extremities. DIAGNOSTIC STUDIES: Chest x-ray shows cardiomegaly and pulmonary edema. CT scans of the brain and cervical and thoracic spine show no evidence of disease. Troponin 0.001. Her chemistry shows normal electrolytes, CO2 24, creatinine 3.04 and BUN 22 for a GFR of 22. Calcium 8.6. Glucose is 113. Transaminases, bilirubin and alk phos are normal. CBC shows a white count of 3.6 with a normal differential. Hemoglobin 7.3, hematocrit 25.3 and platelet count 111,000. IMPRESSION 1. Symptomatic anemia due to end-stage renal disease. The patient will get 2 units of packed red cells during her next hemodialysis. 2. End-stage renal disease with volume overload, needing hemodialysis. The patient has missed the last couple of dialysis sessions. Nephrology has been consulted for urgent hemodialysis during which time she will receive 2 units of packed red cells. 3. Status post fall. All x-rays are negative for any kind of orthopedic injury. 4. Type-1 diabetes with end-stage renal disease. Will use sliding-scale insulin for glycemic control. 5. Hypertension complicated by chronic systolic heart failure and end-stage renal disease. Will continue Coreg, diltiazem and Lasix. She seems fairly well controlled. 6. For prophylaxis, the patient will be given subcutaneous heparin for DVT prophylaxis and Protonix for GI prophylaxis. Job#: [id number]
[2017-09-09] MEDS ORDERED: ACETAMINOPHEN 325 MG TAB PO PRN (16:00)
[2017-09-09] MEDS: HEPARIN SOD (PORCINE) 5,000 UNIT/ML VIAL SC SCH ×2 (17:53→21:22)
[2017-09-09] MEDS ORDERED: MIRTAZAPINE 15 MG TAB PO SCH (21:00)
[2017-09-09] MEDS: DIPHENHYDRAMINE HCL ELIX 12.5 MG/5 ML UDC NG PRN (23:19)
[2017-09-10] VITALS: BP 132/92
[2017-09-10] MEDS: PHENYTOIN SODIUM EXT REL 100 MG CAP PO SCH ×2 (00:09→13:23)
[2017-09-10 04:15] VITALS: BP 115/75
[2017-09-10 06:25] LABS: BASOPHILS % 0.4 % (0.0-1.0); EOSINOPHILS # (AUTO) 0.1 (0.0-0.4); EOSINOPHILS % 2.3 % (0.0-6.0); HEMATOCRIT 31.2 % (34.2-44.1); HEMOGLOBIN 9.5 g/dL (12.0-16.0); LYMPHOCYTES # (AUTO) 1.1 (1.0-3.2); LYMPHOCYTES % 22.4 % (18.0-39.1); MEAN CORPUSCULAR HEMOGLOBIN 27.5 pg (28-32); MEAN CORPUSCULAR HGB CONC 30.4 g/dL (31-35); MEAN CORPUSCULAR VOLUME 90.2 fL (81-99); MONOCYTES # (AUTO) 0.2 (0.2-0.8); MONOCYTES % 4.9 % (4.4-11.3); NEUTROPHILS # (AUTO) 3.4 (2.1-6.9); NEUTROPHILS % 69.6 % (38.7-80.0); PLATELET COUNT 121 x10e3/uL (140-360); RED BLOOD COUNT 3.46 x10e6/uL (3.6-5.1); RED CELL DISTRIBUTION WIDTH 16.2 % (11.7-14.4)
[2017-09-10 06:46] LABS: ANION GAP 12.1 mmol/L (8-16); CALCIUM 8.2 mg/dL (8.4-10.2); CREATININE, SERUM 2.58 mg/dL (0.57-1.11); POTASSIUM 4.1 mmol/L (3.5-5.1)
[2017-09-10] MEDS: INSULIN REGULAR, HUMAN 100 UNIT/1 ML 3ML VIAL SQ SCH ×2 (07:30→11:30)
[2017-09-10] MEDS: METOCLOPRAMIDE HCL 10 MG TAB PO SCH ×2 (07:56→13:23)
[2017-09-10] MEDS: PANTOPRAZOLE SODIUM 40 MG SUSPDR.PKT PO SCH (07:56)
[2017-09-10 08:00] VITALS: BP 124/93
[2017-09-10] MEDS: HEPARIN SOD (PORCINE) 5,000 UNIT/ML VIAL SC SCH (09:00)
[2017-09-10] MEDS: POLYETHYLENE GLYCOL 3350 17 GM PACK PO SCH (09:00)
[2017-09-10] MEDS: DOCUSATE SODIUM 100 MG CAP PO SCH (09:00)
[2017-09-10] MEDS: CARVEDILOL 12.5 MG TAB PO SCH (09:19)
[2017-09-10] MEDS: FUROSEMIDE 40 MG TAB PO SCH (09:19)
[2017-09-10] MEDS: LEVETIRACETAM 500 MG TAB PO SCH (09:19)
[2017-09-10] MEDS: DILTIAZEM HCL 30 MG TAB PO SCH ×2 (09:19→13:23)
[2017-09-10] MEDS: MORPHINE SULFATE 30 MG TAB ER PO SCH (09:19)
[2017-09-10] MEDS ORDERED: SODIUM CHLORIDE 0.9% 1000ML 2,000 ML ONE (09:48)
[2017-09-10] MEDS ORDERED: DIPHENHYDRAMINE HCL INJ 50 MG/ML VIAL IV ONE (09:50)
[2017-09-10] MEDS: BUDESONIDE/FORMOTEROL 160/4.5MCG INHALER INH SCH (10:54)
[2017-09-10] MEDS ORDERED: HEPARIN SOD (PORCINE) 1000 UNIT/ML SDV IV PRN (11:30)
[2017-09-10] MEDS ORDERED: SODIUM CHLORIDE 0.9% 1000ML 2,000 ML IV PRN (11:30)
[2017-09-10] MEDS ORDERED: ALBUMIN 25% 12.5GM 0.25 GM/ML BTL IV PRN (11:30)
[2017-09-10 12:00] VITALS: BP 131/99
[2017-09-10] MEDS ORDERED: CLONAZEPAM0.5 MG PO (12:29)
[2017-09-10] MEDS ORDERED: ASCORBIC ACID500 MG PO (12:29)
[2017-09-10] MEDS ORDERED: FERROUS SULFAT325 MG PO (12:29)
[2017-09-10] MEDS ORDERED: PROMETHAZINE HC25 M1 PO (12:29)
[2017-09-10] MEDS ORDERED: LORAZEPAM INJ 2 MG/ML VIAL IV ONE (12:45)
--- NOTE | 2017-09-10 14:54 | Consultation ---
DATE OF CONSULTATION: PODIATRY CONSULTATION The patient was admitted secondary to a fall. HISTORY OF PRESENT ILLNESS: Ms. Bermeo is a pleasant, 31-year-old female who has chronic, longstanding medical issues secondary to diabetes, uncontrolled diabetes and complications thereof. Admitted once again secondary to recent fall. Incidentally, also was recently at a [place] [facility] and apparently had foot surgery done. Uncertain whether this was wound debridement or something more extensive. Also, I was asked to evaluate while she is inpatient regarding the latter. PAST MEDICAL HISTORY: Diabetes mellitus, end-stage renal disease on hemodialysis, peripheral arterial disease, chronic pain, hypertension, heart failure. SURGICAL HISTORY: Recent bilateral foot surgery, AV fistula creation for hemodialysis, cholecystectomy. ALLERGIES: LATEX, PENICILLIN, ZOFRAN, TORADOL AND DILAUDID. FAMILY HISTORY: Noncontributory. SOCIAL HISTORY: female with no habits with regards to drug use, alcohol use or tobacco. PHYSICAL EXAMINATION GENERAL: A and O x3. NAD. VITAL SIGNS: Stable. She is afebrile. HEENT: Normocephalic, atraumatic, anicteric. ABDOMEN: Soft, nontender, nondistended. RESPIRATORY: Symmetrical expansion, no distress. PSYCHIATRIC: Normal affect. EXTREMITIES: Bilateral foot lesions noted with stitches intact. At this point, they appear to be ready to be removed. No signs of infection. There are subtle open wound areas. ASSESSMENT: Diabetic ulcerations bilaterally with recent what appear to be procedures done. PLAN: Local wound care. Okay offloading. Will continue to follow and monitor while inpatient. Job#: [id number]
[2017-09-10] MEDS: DIPHENHYDRAMINE HCL ELIX 12.5 MG/5 ML UDC NG PRN (15:41)
[2017-09-10 16:00] VITALS: BP 102/75
--- NOTE | 2017-09-10 20:33 | Discharge Summary ---
ADMISSION DIAGNOSES 1. Symptomatic anemia due to end-stage renal disease. 2. End-stage renal disease with volume overload needing dialysis. 3. Status post fall. 4. Type-1 diabetes with end-stage renal disease. 5. Hypertension, complicated by chronic systolic heart failure and end-stage renal disease. DISCHARGE DIAGNOSES 1. Symptomatic anemia due to end-stage renal disease. 2. End-stage renal disease with volume overload needing dialysis. 3. Status post fall. 4. Type-1 diabetes with end-stage renal disease. 5. Hypertension, complicated by chronic systolic heart failure and end-stage renal disease. HISTORY: Patient has a history of type-1 diabetes diagnosed at 2010 with multiple complications including diabetic peripheral neuropathy and diabetic autonomic neuropathy with neurogenic bladder requiring self-catheterization, end-stage renal disease, paroxysmal AFib, hypertensive heart disease with chronic systolic heart failure with an EF of 40%-45%, seizures, and asthma, as well as gastroparesis and anxiety. HOSPITAL COURSE: A 31-year-old female has had no dialysis for about 4-5 days due to issues at her dialysis center. She is complaining of shortness of breath and weakness and she fell at home hitting her head. There was no loss of consciousness. On admission, the patient received dialysis and got 2 units of packed red blood cells. Case management was consulted to ensure that there were no issues with her dialysis center and her chair is available for her whenever she will actually show up. X-ray of the thoracic spine shows nothing acute. Chest x-ray showed cardiomegaly and pulmonary edema. CT of the C-spine showed no abnormalities and head CT was normal. Hemoglobin on admission was 7.3. Hemoglobin at time of discharge was 9.5 with the hematocrit of 31.2, WBC 4.86. Sodium 139, potassium 4.1, creatinine of 2.58, GFR of 27, A1c of 7.4. Patient had 2 treatments of dialysis prior to discharge. She will follow up with dialysis as scheduled, even though she tends to skip dialysis a lot and comes straight to the hospital. Patient is tolerating fluid p.o. She said she had her PEG tube replaced by another physician again and is refusing to let nurses flush it to test the PEG tube, but she is tolerating p.o., so GI did not want to worry about it. She will follow up with primary care in 2 weeks. Dictated By: Wendy Kannan, [employer]PER[employer]OR JOHN BAHENA MD Job#: [id number]
== END 2017-09-10 16:47 | disposition home or self-care (01) ==
LOC: ER 19:36 → INTOOBSV 22:41 → ERHOLD 22:41 → MED/SURG2 23:23
PROVIDERS: ADMIT Internal Medicine; ATTEND Internal Medicine
DX: I13.2 Hypertensive heart and chronic kidney disease with heart failure and with stage 5 chronic kidney disease, or end stage renal disease (principal); S16.1XXA Strain of muscle, fascia and tendon at neck level, initial encounter; S23.3XXA Sprain of ligaments of thoracic spine, initial encounter; D63.1 Anemia in chronic kidney disease; N18.6 End stage renal disease; Z99.2 Dependence on renal dialysis; W18.2XXA Fall in (into) shower or empty bathtub, initial encounter; K21.9 Gastro-esophageal reflux disease without esophagitis; N31.9 Neuromuscular dysfunction of bladder, unspecified; F68.10 Factitious disorder imposed on self, unspecified; Z93.1 Gastrostomy status; Z88.0 Allergy status to penicillin; Z88.8 Allergy status to other drugs, medicaments and biological substances; Z91.040 Latex allergy status; E10.22 Type 1 diabetes mellitus with diabetic chronic kidney disease; I50.22 Chronic systolic (congestive) heart failure; E10.65 Type 1 diabetes mellitus with hyperglycemia; Z79.4 Long term (current) use of insulin; E10.621 Type 1 diabetes mellitus with foot ulcer; G40.909 Epilepsy, unspecified, not intractable, without status epilepticus; J45.909 Unspecified asthma, uncomplicated; E10.43 Type 1 diabetes mellitus with diabetic autonomic (poly)neuropathy
CPT/HCPCS: 36415; 36430; 80048; 82948; 83036; 83540; 84466; 85025; 90935; 93005; 94640; G0378 ×3; J1200; J1642; J1644 ×2; J2060; J7030; 99285; J1940; J2550; J7050; Q4081

== ENCOUNTER 2017-09-11 12:19 | Inpatient (IN) | payer OTHER ==
[~2017-09-11] VITALS: Ht 160 cm; Wt 68.9 kg
[~2017-09-11 12:19] MED LIST changes: +ASCORBIC ACID500 MG PO
--- OUTSIDE RECORDS SUMMARY | 2017-09-11 12:23 | XMS REPORT | Continuity of Care Document ---
Author Author [facility] Organization [facility] Address [address] [place] [address] Phone Unavailable Care Team Providers Care Vegetable Picker Name Role Phone JOHN BAHENA MD PCP Insurance Providers Guarantor Sonam Bermeo Address [address] [place] [address] Email [email or web address] [facility] [place] Medicaid Policy Number [id number] Subscriber's Name Sonam Bermeo Relationship 18 Self / Same As Patient Group Number [id number] Group Name UNEMPLOYED Effective Date 16 Advance Directives Directive Response Recorded Date/Time Does the patient have an advance directive? No 09/09/17 12:45am If yes, is advance directive on file with [facility]? No 09/09/17 12:45am If not on file with [facility] will patient provide a copy? No 09/09/17 12:45am Do you have a Directive to Physician? No 09/08/17 8:25pm Do you have a Medical Power of Health Insurance Assessor? No 09/08/17 8:25pm Do you have an out of hospital Do Not Resuscitate Order? No 09/08/17 8:25pm Do you have any special needs we should be aware of? No 09/08/17 8:25pm Do you have a support person here with you today? Yes 09/08/17 8:25pm Did patient receive Notice of Privacy Practices? Yes 09/08/17 8:25pm Did patient receive patient rights and responsibilities? Yes 09/08/17 8:25pm Problems Medical Problem Onset Date Status Abdominal pain 09/05/2015 Acute Acute renal failure (ARF) 07/30/2014 Acute Anemia 02/26/2015 Acute Anemia 09/29/2015 Acute Anemia, chronic renal failure Unknown Cervical strain, acute Unknown Chest pain Unknown Acute Cystitis 07/01/2014 [...] Unknown S3 (third heart sound) 01/02/2016 Acute Symptomatic anemia Unknown UTI (lower urinary tract infection) 07/30/2014 Acute [...] Needed as needed for Shortness Of Breath Ascorbic Acid 500 Mg Tablet 500 Mg Oral Twice A Day 30 Days Budesonide/Formoterol Fumarate (Symbicort 160-4.5 Mcg Inhaler) 10.2 Gm Hfa.aer.ad 2 Inh Inhalation Twice A Day 1 04/11/17 Carvedilol (Coreg) 12.5 Mg Tab 25 Mg Oral Twice A Day 30 Days 06/02 Clonazepam 0.5 Mg Tablet 0.5 Mg Oral Every 8 Hours as needed for Anxiety 90 07/14/17 Clonazepam 0.5 Mg Tablet 0.5 Mg Oral Every 8 Hours as needed for Anxiety 30 Tab 09/10/17 Diltiazem Hcl (Cardizem) 30 Mg Tablet 30 Mg Oral Four Times Daily 30 Days 06/02/16 Docusate Sodium (Colace) 100 Mg Capsule 100 Mg Oral Twice A Day 30 Days 06/03/17 Epoetin Bharath (Epogen) 10,000 Unit/1 Ml Vial 10,000 Unit Subcutaneously Every Saturday, Saturday, And Saturday 30 Days 06/03/17 Ferrous Sulfate 325 Mg Tablet 325 Mg Oral Daily 30 09/10/17 Folic Acid/Vitamin B Comp W-C (Dialyvite Tablet) 1 Each Tablet 1 Tab Oral Daily Furosemide (Lasix) 40 Mg Tablet 80 Mg Oral Twice A Day 14 Days 30 Tab 12/20/16 Insulin Regular, Human (Humulin R) 100 Unit/1 Ml Vial 7 Units Sub-Q As Needed Ipratropium [place] 0.2 Mg/1 Ml Solution 2.5 Ml Nebullizer [...] Day as needed for Nausea Promethazine Hcl 25 Mg Tablet 25 Mg Oral Every 8 Hours as needed for Nausea 30 Tab 09/10/17 Past Home Medications Medication Directions Ordered Status [...] Mg Oral Every 7 Days Discontinued Butalb/Acetaminophen/Caffeine (Hkyaff-Phfurmwy-Vvpu 50-325-40) 1 Each Tablet, Every 6 Hours [...] Once 06/30/17 Discontinued Fluticasone Propionate 1 Ea Silvis, 0 Ea Nasal Twice A Day 06/03/17 Discontinued Fluticasone Propionate 1 Ea Silvis, 1 Ea Nasal Twice A Day 06/13/16 [...] Human (Humulin R) 100 Unit/1 Ml Vial, 0 Unit Sub-Q Before Meals And At Bedtime 12/20/16 Discontinued Insulin Regular, Human (Humulin R) 100 Unit/1 Ml Vial, 0 Unit Sub-Q Before Meals And At Bedtime 06/03/17 Discontinued Insulin Regular, Human (Humulin R) 100 [...] needed for Pain And Temperature 11/09/15 Discontinued [id number] 30 Mg Tabcr, 30 Mg Oral Daily [...] Onset Date Status Hx Psychiatric Problems No 09/09/2017 12:45am Not Applicable Not Applicable Hx Eating Disorder No 09/09/2017 12:45am Not Applicable Not Applicable Hx Substance Use Disorder No 09/09/2017 12:45am Not Applicable Not Applicable Hx Depression No 09/09/2017 12:45am Not Applicable Not Applicable Hx Alcohol Use No 09/09/2017 12:45am Not Applicable Not Applicable Hx Substance Use Treatment No 09/09/2017 12:45am Not Applicable Not Applicable Hx Physical Abuse No 09/09/2017 12:45am Not Applicable Not Applicable Smoking Status Start Date Stop Date Unknown if ever smoked Hospital Discharge Instructions No hospital discharge instruction information available. Plan of Care Discharge Date 09/10/17 4:47pm Disposition HOME, SELF-CARE Instructions/Education Provided Anemia Kidney Failure Prescriptions See Medication Section Additional Instructions/Education F/U WITH DIALYSIS SCHEDULED- DO NOT SKIP F/U WITH DR HENSLEY NEEDED Functional Status Query Response Date Recorded Assistive Devices None September 09, 2017 12:45am Ambulation Ability Independent September 09, 2017 12:45am Toileting Ability Independent September 09, 2017 12:45am Allergies, Adverse Reactions, Alerts Allergen Type Severity [...] (Fahrenheit) 97.7 degrees F (97.6 - 99.5) 09/10/2017 4:00pm Pulse Pulse Rate (adult) 94 bpm (60 - 90) 09/10/2017 4:00pm Respiratory Rate 19 bpm (12 - 24) 09/10/2017 4:00pm Blood Pressure 102/75 mm Hg 09/10/2017 4:00pm Height 5 ft 3 in 09/08/2017 7:45pm Weight 152 lb 09/08/2017 7:45pm Body Mass Index 26.9 kg/m^2 09/09/2017 12:45am Results Laboratory Results Test Name Result Units Flags Reference Collection Date/Time Result Date/ Time Comments Reactive Lymphocytes 1 01/24/2017 6:19am 01/24/2017 8:25am Blast Cells % 1 01/24/2017 6:19am 01/24/2017 8:25am Clostridium Difficile Toxin A & B NEGATIVE NEGATIVE 01/31/2017 2:30am 01/31/2017 12:27pm Testing on stool aspirate specimens is outside inflatable buildings laminator claims since specimen type not validated on this assay. Differential Total Cells Counted 100 06/03/2017 5:50am 06/03/2017 8 :12am Neutrophils % (Manual) 71 % 40-74 06/03/2017 5:50am 06/03/2017 8:12am Lymphocytes % (Manual) 20 % 19-48 06/03/2017 5:50am 06/03/2017 8:12am Monocytes % (Manual) 4 % 3.4-9.0 06/03/2017 5:50am 06/03/2017 8:12am Eosinophils % (Manual) 5 % 0-7 06/03/2017 5:50am 06/03/2017 8:12am Polychromasia FEW 06/03/2017 5:50am 06/03/2017 8:12am Urine Transitional Epithelial Cells FEW H NONE [...] with a HCV Nucleic Acid Amplification test ([id number]). [address] [address] Dir: Robles Samayoa MD For inquiries, the physician may contact Branch: [phone] Lab: [phone] Urine Test NEGATIVE NEGATIVE 06/06/2017 5:15pm 06/06/2017 7 :22pm Amylase Level 69 U/L 25-125 06/06/2017 11:30pm 06/06/2017 11:53pm Phospholipids Level 225 06/06/2017 11:30pm 06/12/2017 12:42pm Reference Range:150 - 250 mg/dL Results for this test are for research purposes only by the assay's inflatable buildings laminator. The performance characteristics of this product have not been established. Results should not be used as a diagnostic procedure without confirmation of the diagnosis by another medically established diagnostic product or procedure. Testing performed by: [facility] [address] Dir. Santana Salmeron MD Stool Occult Blood POSITIVE H NEGATIVE 06/06/2017 11:30pm 06/06/2017 11:41pm Urine Mucus MODERATE H RARE 06/29/2017 12:03pm 06/29/2017 3:30pm D-Dimer Quantitative (PE/DVT) 0.41 ug/mLFEU 0.00-0.45 07/02/2017 3:35pm 07/02/2017 7:02pm As with all in vitro diagnostic tests, the test results should be interpreted by the physician in conjunction with clinical findings and other test results. Test results are reported in NEW D-dimer units(ug/mLFEU). Activated Partial Thromboplast Time 31.8 seconds 23.8-35.5 [...] pg/mL H 0-100 07/05/2017 9:10am 2017 9:58am Lipase 29 U/L 8-78 07/05/2017 9:10am 07/05/2017 9:57am Thyroid Stimulating Hormone (TSH) 1.112 uIU/mL 0.350-4.940 07/05/2017 9: 10am 07/05/2017 10:17am Phenytoin (Dilantin) Level 1.44 ug/mL L 10-20 [...] 0-10 07/08/2017 4: 10am 07/08/2017 3:51pm Hepatitis Be Antibody Negative Negative 07/09/2017 6:40am 07/11/2017 3:06pm Performed at: [facility], [place], [place] [id number] Energy Attorney: Santana Salmeron MD, Phone: [phone] Hepatitis Be Antigen Negative Negative 07/10/2017 5:38am 07/11/2017 8 :07am Performed at: [facility] [id number] Energy Attorney: Robles Samayoa MD, Phone: [phone] Urine Color YELLOW YELLOW 08/02/2017 6:20pm 08/02/2017 7:00pm Urine Clarity HAZY CLEAR 08/02/2017 6:20pm 08/02/2017 7:00pm Urine Specific [place] 1.015 1.010-1.025 08/02/2017 6:20pm 2017 7:00pm Urine [...] /LPF NONE 08/02/2017 6:20pm 08/02/2017 7: 09pm Lactic Acid Level 15.3 MG/DL 4.5-19.8 08/02/2017 6:20pm 08/02/2017 7: 06pm Magnesium Level 1.7 MG/DL 1.3-2.1 08/04/2017 5:30am 08/04/2017 6:04am Hepatitis B Surface Antibody, Quant 364.1 mIU/mL Immunity>9.9 2017 4:12pm 08/06/2017 6:05pm Status of Immunity Anti- HBs Level Inconsistent with Immunity 0.0 - 9.9 Consistent with Immunity >9.9 Hepatitis B Core Total Antibody Negative Negative 08/03/2017 4:12pm 08/06/2017 6:05pm Performed at: [facility] [address] [id number] Energy Attorney: Robles Samayoa MD, Phone: [phone] Hepatitis B Surface Antigen Negative Negative 08/03/2017 4:12pm 08/06 6:05pm White Blood Count 4.86 x10e3/uL 4.8-10.8 09/10/2017 5:55am 09/10/2017 6 :43am Red Blood Count 3.46 x10e6/uL L 3.6-5.1 09/10/2017 5:55am 09/10/2017 6: 43am Hemoglobin 9.5 g/dL L 12.0-16.0 09/10/2017 5:55am 09/10/2017 6:43am Hematocrit 31.2 % L 34.2-44.1 09/10/2017 5:55am 09/10/2017 6:43am Mean Corpuscular Volume 90.2 fL # 81-99 09/10/2017 5:55am 09/10/2017 6: 43am Mean Corpuscular Hemoglobin 27.5 pg L 28-32 09/10/2017 5:55am 2017 6:43am Mean Corpuscular Hemoglobin Concent 30.4 g/dL L 31-35 09/10/2017 5:55am 09/10/2017 6:43am Red Cell Distribution Width 16.2 % H 11.7-14.4 09/10/2017 5:55am 2017 6:43am Platelet Count 121 x10e3/uL L 140-360 09/10/2017 5:55am 09/10/2017 6: 43am Neutrophils (%) (Auto) 69.6 % 38.7-80.0 09/10/2017 5:55am 09/10/2017 6: 43am Lymphocytes (%) (Auto) 22.4 % 18.0-39.1 09/10/2017 5:55am 09/10/2017 6: 43am Monocytes (%) (Auto) 4.9 % 4.4-11.3 09/10/2017 5:55am 09/10/2017 6: 43am Eosinophils (%) (Auto) 2.3 % 0.0-6.0 09/10/2017 5:55am 09/10/2017 6: 43am Basophils (%) (Auto) 0.4 % 0.0-1.0 09/10/2017 5:5509/10/2017 6:43am IM GRANULOCYTES % 0.4 % 0.0-1.0 09/10/2017 5:55am 09/10/2017 6:43am Neutrophils # (Auto) 3.4 2.1-6.9 09/10/2017 5:55am 09/10/2017 6:43am Lymphocytes # (Auto) 1.1 1.0-3.2 09/10/2017 5:55am 09/10/2017 6:43am Monocytes # (Auto) 0.2 0.2-0.8 09/10/2017 5:55am 09/10/2017 6:43am Eosinophils # (Auto) 0.1 0.0-0.4 09/10/2017 5:55am 09/10/2017 6:43am Basophils # (Auto) 0.0 0.0-0.1 09/10/2017 5:09/10/2017 6:43am Absolute Immature Granulocyte (auto 0.02 x10e3/uL 0-0.1 09/10/2017 5: 55am 09/10/2017 6:43am Platelet Estimate MODERATELY DECREASED 09/09/2017 6:15am 2017 7:59am Platelet Morphology Comment NORMAL 09/09/2017 6:15am 09/09/2017 7: 59am Hypochromasia MODERATE 09/09/2017 6:15am 09/09/2017 7:59am Poikilocytosis SLIGHT 09/09/2017 6:15am 09/09/2017 7:59am Anisocytosis SLIGHT 09/09/2017 6:15am 09/09/2017 7:59am Red Cell Morphology Comment ABNORMAL 09/09/2017 6:15am 09/09/2017 7 :59am Sodium Level 139 mmol/L 136-145 09/10/2017 5:55am 09/10/2017 7:00am Potassium Level 4.1 mmol/L 3.5-5.1 09/10/2017 5:55am 09/10/2017 7:00am Chloride Level 103 mmol/L 98-107 09/10/2017 5:55am 09/10/2017 7:00am Carbon Dioxide Level 28 mmol/L -09/10/2017 5:55am 09/10/2017 7: 00am Anion Gap 12.1 mmol/L 8-09/10/2017 5:55am 09/10/2017 7:00am Blood Urea Nitrogen 16 mg/dL 11-0709/10/2017 5:55am 09/10/2017 7:00am Creatinine 2.58 mg/dL H 0.57-1.11 09/10/2017 5:55am 09/10/2017 7:00am BUN/Creatinine Ratio 6 10-0709/10/2017 5:55am 09/10/2017 7:00am Estimat Glomerular Filtration Rate 27 ML/MIN L 60- 09/10/2017 5:55am 7:00am Ranges were taken from the National Kidney Disease Education Program and the National Kidney Foundation literature. Reference ranges: 60 or greater: Normal 16-59 (for 3 consecutive months): Chronic kidney disease 15 or less: Kidney failure Glucose Level 106 mg/dL 74-118 09/10/2017 5:55am 09/10/2017 7:00am Calcium Level 8.2 mg/dL L 8.4-10.2 09/10/2017 5:55am 09/10/2017 7:00am Bedside Glucose 276 mg/dL H 70-120 09/10/2017 3:23pm 09/10/2017 4:01pm Meter ID: [id number] Hemoglobin A1c Percent 7.4 % H 4.0-7.0 09/10/2017 5:55am 09/10/2017 6: 42am Iron Level 37 ug/dL L 50-170 09/10/2017 5:55am 09/10/2017 7:00am Total Iron Binding Capacity 165 ug/dL L 261-478 09/10/2017 5:55am 2017 7:00am Percent Iron Saturation 22 % 15-50 09/10/2017 5:55am 09/10/2017 7:00am Transferrin 118 mg/dL L 180-382 09/10/2017 5:55am 09/10/2017 7:00am Total Bilirubin 0.2 mg/dL 0.2-1.2 09/09/2017 6:1509/09/2017 7:11am Aspartate Amino Transf (AST/SGOT) 14 IU/L 5-34 09/09/2017 6:15am 2017 7:11am Alanine Aminotransferase (ALT/SGPT) 13 IU/L 0-55 09/09/2017 6:15am 7:11am Total Protein 6.1 g/dL L 6.5-8.1 09/09/2017 6:15am 09/09/2017 7:11am Albumin 2.6 g/dL L 3.5-5.0 09/09/2017 6:1509/09/2017 7:11am Globulin 3.5 g/dL 2.3-3.5 09/09/2017 6:1509/09/2017 7:11am Albumin/Globulin Ratio 0.7 L 0.8-2.0 09/09/2017 6:1509/09/2017 7: 11am Alkaline Phosphatase 132 IU/L 40-150 09/09/2017 6:1509/09/2017 7: 11am Creatine Kinase 55 IU/L 29-168 09/09/2017 2:31pm 09/09/2017 2:57pm Creatine Kinase MB 1.30 ng/mL 0-5.0 09/09/2017 2:31pm 09/09/2017 3: 05pm Troponin I 0.001 ng/mL 0-0.300 09/09/2017 2:31pm 09/09/2017 3:05pm Human Chorionic Gonadotropin, Qual NEGATIVE NEGATIVE 09/08/2017 8: 42pm 09/08/2017 9:01pm Microbiology Results Procedure Source Organism/Result Collection Date/Time Result Date/Time Result Status Urine Culture Urine,Random MARIUSZ GLABRATA 04/11/2017 3:00pm 04/16/2017 6 :14am Final Blood Culture Blood NO GROWTH AFTER 5 DAYS, FINAL REPORT 06/29/2017 1:45pm 07/04/2017 2:54pm Final Urine Culture Urine,[place] ENTEROCOCCUS FAECIUM-VRE 07/02/2017 6:03pm 07/05/2017 8:19am Final Urine Culture Urine,Catheterized MARIUSZ GLABRATA 07/07/2017 3:28pm 2017 8:15am Final Urine Culture Urine,Clean Catch MARIUSZ GLABRATA 08/03/2017 6:20pm 2017 3:01pm Final ESCHERICHIA COLI 08/03/2017 6:20pm 08/07/2017 3:01pm Final ENTEROCOCCUS FAECIUM-VRE 08/03/2017 6:20pm 08/07/2017 3:01pm Final Procedures Procedure Status Date Provider(s) INSERTION [...] PERFORMANCE OF URINARY FILTRATION, MULTIPLE Completed 01/02/17 LIAVN AVENDAÑO RONALD MD EXCISION OF STOMACH, PYLORUS, [...] REMOVAL OF INFUSION DEVICE FROM UPPER VEIN, KEYBOARDING CLERK APPROACH Completed HANK SALMERON MD, SALMAN INSERT [...] FILTRATION, <6 HRS/DAY Completed 07/10/17 LIVAN AVENDAÑO Unsched dialysis ESRD pt hos Completed 08/02/17 LIVAN AVENDAÑO Ultrasound guidance for vascular access [...] X-ray of chest, two views Active 02/07/17 OBI-SOULEYMANE LATHAM MD Computed tomography of brain without [...] abdomen complete Active 06/30/17 UVALDO TERRY NP Computed tomography of brain without radiopaque contrast Active 09/08/17 COLLETTE MICHAEL MD Computed tomography of cervical spine without contrast Active 09/08/17 COLLETTE MICHAEL MD Encounters Encounter Location Arrival/Admit Date Discharge/Depart Date Attending Provider Discharged Inpatient (obs) [facility] 09/08/17 10:41pm 4:47pm JOHN BAHENA MD Discharged Inpatient (obs) [facility] 08/02/17 5:09pm 1:52pm JOHN BAHENA MD Discharged Inpatient [facility] 07/10/17 8:42pm 07/14/17 1:57pm JOHN BAHENA [...] 12:31am 5:19pm JOHN BAHENA MD Discharged Inpatient [facility] 12/16/16 6:45pm 12/20/16 6:47pm JOHN BAHENA MD
--- OUTSIDE RECORDS SUMMARY | 2017-09-11 12:23 | XMS REPORT | Clinical Summary ---
Author Author [facility] Address Unknown Phone Unavailable Care Team Providers Care Window Covering Sales Consultant Name Role Phone PCP Unavailable Allergies Active [...] failure (HCC) 08/22/2016 End stage renal disease ([facility]) 08/22/2016 IDDM (insulin dependent diabetes mellitus) ([facility]) 08/22/2016 Epilepsy ([facility]) 08/22/2016 Anxiety 08/22/2016 Chronic pain due to trauma 08/22/2016 Gastroparesis 08/22/2016 Diabetic polyneuropathy associated with type 1 diabetes mellitus (HCC) 08/22 Secondary hyperparathyroidism of renal origin ([facility]) 08/22/2016 Anemia in chronic kidney disease(285.21) 08/22/2016 Thrombocytopenia ([facility]) 08/22/2016 Pituitary tumor 08/22/2016 Benign hypertension with end-stage renal disease ([facility]) 08/22/2016 Neurogenic bladder 08/22/2016 Pre-transplant evaluation for [...] 10/08/2016 Abstract Transplant Augustina Pozo RN after 09/10/2016 Social History Tobacco Use Types Packs/Day Years Used Date Never Smoker Alcohol Use Drinks/Week oz/Week Comments No Sex Assigned at Date Recorded Not on file Last Filed Vital Signs Not on file Plan of Treatment Health Maintenance Due Date Last Done Comments INFLUENZA VACCINE 01/13/2018 Results Not on fileafter 09/10/2016
[2017-09-11] MEDS ORDERED: MORPHINE SULFATE 5 MG/ML VIAL IV ONE (13:15)
[2017-09-11] MEDS ORDERED: PROMETHAZINE 12.5MG/ NACL 0.9% 12.5 MG/50 ML BAG IV ONE (13:15)
[2017-09-11] MEDS ORDERED: DIPHENHYDRAMINE HCL INJ 50 MG/ML VIAL IV ONE (13:15)
[2017-09-11] MEDS ORDERED: MORPHINE SULFATE 2 MG/ML SYR IV SCH (13:30)
[2017-09-11 13:59] LABS: BASOPHILS % 0.2 % (0.0-1.0); EOSINOPHILS # (AUTO) 0.1 (0.0-0.4); EOSINOPHILS % 1.5 % (0.0-6.0); HEMATOCRIT 33.7 % (34.2-44.1); HEMOGLOBIN 10.3 g/dL (12.0-16.0); LYMPHOCYTES # (AUTO) 0.9 (1.0-3.2); LYMPHOCYTES % 16.3 % (18.0-39.1); MEAN CORPUSCULAR HEMOGLOBIN 27.9 pg (28-32); MEAN CORPUSCULAR HGB CONC 30.6 g/dL (31-35); MEAN CORPUSCULAR VOLUME 91.3 fL (81-99); MONOCYTES # (AUTO) 0.3 (0.2-0.8); MONOCYTES % 4.9 % (4.4-11.3); NEUTROPHILS # (AUTO) 4.1 (2.1-6.9); NEUTROPHILS % 76.5 % (38.7-80.0); PLATELET COUNT 150 x10e3/uL (140-360); RED BLOOD COUNT 3.69 x10e6/uL (3.6-5.1); RED CELL DISTRIBUTION WIDTH 15.9 % (11.7-14.4)
[2017-09-11 14:02] LABS: BILIRUBIN,URINE NEGATIVE (NEGATIVE); CLARITY,URINE CLOUDY (CLEAR); COLOR,URINE YELLOW (YELLOW); KETONES,URINE NEGATIVE (NEGATIVE); LEUKOCYTE ESTERASE ,URINE 1+ (NEGATIVE); NITRITE,URINE NEGATIVE (NEGATIVE); PREGNANCY TEST, URINE NEGATIVE (NEGATIVE); PROTEIN,URINE DIPSTICK 3+ (NEGATIVE); URINE UROBILINOGEN 0.2 mg/dL (0.2 - 1)
[2017-09-11 14:22] LABS: ALANINE AMINOTRANSFERASE 17 IU/L (0-55); ALBUMIN 2.8 g/dL (3.5-5.0); ALBUMIN/GLOBULIN RATIO 0.6 (0.8-2.0); ALKALINE PHOSPHATASE 144 IU/L (40-150); ANION GAP 13.2 mmol/L (8-16); BLOOD UREA NITROGEN 25 mg/dL (7-26); BUN/CREATININE RATIO 7 (6-25); CALCIUM 9.1 mg/dL (8.4-10.2); CARBON DIOXIDE 27 mmol/L (22-29); CHLORIDE 103 mmol/L (98-107); CREATINE KINASE 46 IU/L (29-168); CREATININE, SERUM 3.77 mg/dL (0.57-1.11); EST GLOMERULAR FILTRATION RATE 17 ML/MIN (60-); GLUCOSE 194 mg/dL (74-118); LIPASE 15 U/L (8-78); POTASSIUM 4.2 mmol/L (3.5-5.1); SODIUM 139 mmol/L (136-145)
--- NOTE | 2017-09-11 14:28 | Diagnostic Imaging Report ---
PROCEDURE: A single AP view of the chest. COMPARISON: Patients [facility], DX, CHEST SINGLE (PORTABLE), 09/08/2017, 21:09. INDICATIONS: PAIN FINDINGS: Lines/tubes: Dual-lumen right sided dialysis catheter, unchanged. Left sided chest port catheter, unchanged. Left-sided AICD. Lungs: Mild increase in bilateral airspace disease consistent with pulmonary edema. Pleura: There is no pleural effusion or pneumothorax. Heart and mediastinum: The heart and the mediastinum are unremarkable. Bones: No acute bony abnormality. IMPRESSION: 1. Mild increase in bilateral airspace disease consistent with pulmonary edema. Blaze Marshall M.D. Dictated by: Blaze Marshall M.D. on 09/11/2017 at 14:30 Electronically approved by: Blaze Marshall M.D. on 09/11/2017 at 14:30
[2017-09-11 14:31] LABS: BACTERIA,URINE RARE /HPF; EPITHELIAL CELLS,URINE MANY /LPF; MUCUS,URINE FEW (RARE)
[2017-09-11] MEDS ORDERED: LORAZEPAM INJ 2 MG/ML VIAL IV ONE (14:44)
--- NOTE | 2017-09-11 15:02 | Diagnostic Imaging Report ---
Exam: Head CT without contrast History: Dizziness Comparison studies: Head CT 09/08/2017 Technique: Axial images were obtained from the skull base to the vertex. Coronal and sagittal images reconstructed from the axial data. Intravenous contrast: None Findings: Scalp: No abnormalities. Bones: No fractures, blastic or lytic lesions. Brain sulci: Appropriate for age. Ventricles: Normal in size and configuration. No hydrocephalus. Extra-axial spaces: No masses, no fluid collection. Parenchyma: No abnormal densities. No masses, acute hemorrhage, acute or chronic vascular insults. Sellar/suprasellar region: No abnormalities. Craniocervical junction: Patent foramen magnum. No Chiari one malformation. IMPRESSION: 1. No acute intracranial abnormalities. 2. No changes from the previous head CT of 09/08/2017. Signed by: Dr. Arjun Martínez M.D. on 09/11/2017 2:59 PM
[2017-09-11] MEDS ORDERED: LEVOFLOXACIN 750MG/D5W 150ML 150 ML IV ONE (15:08)
[2017-09-11] MEDS ORDERED: VANCOMYCIN 1GM/NS 250 ML 250 ML IV ONE (15:08)
[2017-09-11] MEDS ORDERED: ACETAMINOPHEN 1000 MG/100 ML IV ONE (15:14)
[2017-09-11] MEDS ORDERED: ALBUTEROL SULF 0.083% NEB SOLN 3 ML NEB NEB ONE (15:14)
[2017-09-11] MEDS ORDERED: DEXTROSE 50% SYRINGE 50 ML IV PRN (15:15)
[2017-09-11] MEDS ORDERED: SODIUM CHLORIDE FLUSH 10 ML SYR INJ PRN (15:15)
[2017-09-11] MEDS ORDERED: ASPIRIN 81 MG CHEW TAB PO ONE (15:15)
--- OUTSIDE RECORDS SUMMARY | 2017-09-11 15:27 | XMS REPORT | Clinical Summary ---
Author Author [facility]ALY[facility] Address Unknown Phone Unavailable Care Team Providers Care Chief Marketing Officer Name Role Phone PCP Unavailable Allergies Active [...] (HCC) 08/22/2016 End stage renal disease ([facility]) 08/22/2016 IDDM (insulin dependent diabetes mellitus) ([facility]) 08/22/2016 Epilepsy ([facility]) 08/22/2016 Anxiety 08/22/2016 Chronic pain due to trauma 08/22/2016 Gastroparesis 08/22/2016 Diabetic polyneuropathy associated with type 1 diabetes mellitus (HCC) 08/22 Secondary hyperparathyroidism of renal origin ([facility]) 08/22/2016 Anemia in chronic kidney disease(285.21) 08/22/2016 Thrombocytopenia ([facility]) 08/22/2016 Pituitary tumor 08/22/2016 Benign hypertension with end-stage renal disease ([facility]) 08/22/2016 Neurogenic bladder 08/22/2016 Pre-transplant [...]
--- NOTE | 2017-09-11 15:46 | Diagnostic Imaging Report ---
EXAM: CT Abdomen and Pelvis WITHOUT contrast INDICATION: Abdominal pain. COMPARISON: 06/29/2017. TECHNIQUE: Abdomen and pelvis were scanned utilizing a multidetector helical scanner from the lung base to the pubic symphysis without administration of IV contrast. Absence of intravenous contrast decreases sensitivity for detection of focal lesions and vascular pathology. Coronal and sagittal reformations were obtained. Routine protocol was performed. IV CONTRAST: None. ORAL CONTRAST: Water RADIATION DOSE: Total DLP: 670.41 mGy*cm Estimated effective dose: (DLP x 0.015 x size factor) mSv COMPLICATIONS: None FINDINGS: LINES and TUBES: There is a gastrostomy tube in adequate position within the proximal gastric body anteriorly. LOWER THORAX: Centrilobular nodular densities in the lung bases, right greater than left likely represents pulmonary edema. Trace right pleural effusion. Mild distention of the distal esophagus. HEPATOBILIARY: No focal hepatic lesions. No biliary ductal dilation. GALLBLADDER: Surgically absent. SPLEEN: No splenomegaly. PANCREAS: No focal masses or ductal dilatation. ADRENALS: No adrenal nodules KIDNEYS/URETERS: No hydronephrosis. No cystic or solid mass lesions. No stones. GI TRACT: No abnormal distention, wall thickening, or evidence of bowel obstruction. Appendix is normal. Residual oral contrast is present within the colon and appendix. PELVIC ORGANS/BLADDER: Periuterine vascular calcifications. LYMPH NODES: No lymphadenopathy. VESSELS: Mild atherosclerotic calcifications without aneurysmal dilatation. PERITONEUM / RETROPERITONEUM: Trace volume free fluid. BONES: Increased density of the vertebral bodies in the lower thoracic and lumbar spine consistent with renal osteodystrophy, unchanged. SOFT TISSUES: Mild anasarca. IMPRESSION: 1. No acute abdominal pelvic abnormality. 2. Gastrostomy tube in place. 3. Pulmonary edema. Signed by: Dr. Blaze Marshall M.D. on 09/11/2017 3:42 PM
[2017-09-11] MEDS: INSULIN REGULAR, HUMAN 100 UNIT/1 ML 3ML VIAL SQ SCH ×2 (16:30→21:00)
[2017-09-11] MEDS ORDERED: DIPHENHYDRAMINE HCL INJ 50 MG/ML VIAL IV STA (16:38)
[2017-09-11 18:45] VITALS: BP 129/87
[2017-09-11 20:00] VITALS: BP 129/87
[2017-09-11] MEDS ORDERED: DIPHENHYDRAMINE HCL 25 MG CAP PO PRN (21:15)
[2017-09-11] MEDS: PHENYTOIN SODIUM EXT REL 100 MG CAP PO SCH (21:15)
[2017-09-11] MEDS ORDERED: EPOETIN ALFA 10000 UNIT/ML VIAL SC SCH (21:15)
[2017-09-11] MEDS ORDERED: ACETAMINOPHEN 325 MG SUPP PR PRN (21:30)
[2017-09-11] MEDS ORDERED: ACETAMINOPHEN 325 MG TAB PO PRN (21:30)
[2017-09-11] MEDS ORDERED: PROMETHAZINE HCL 12.5 MG SUPP PR PRN (21:30)
[2017-09-11] MEDS ORDERED: HYDRALAZINE HCL 20 MG/ML VIAL IV PRN (21:30)
[2017-09-11 21:49] VITALS: BP 129/87
[2017-09-11] MEDS: METOCLOPRAMIDE HCL 10 MG TAB PO SCH (22:10)
[2017-09-11] MEDS: LEVETIRACETAM 500 MG TAB PO SCH (22:11)
[2017-09-11] MEDS: CLONAZEPAM 0.5 MG TAB PO PRN (22:12)
[2017-09-11 22:14] LABS: CREATINE KINASE MB 0.8 ng/mL (0-5.0)
[2017-09-11] MEDS: MORPHINE SULFATE 30 MG TAB ER PO PRN (22:14)
[2017-09-11] MEDS ORDERED: DIPHENHYDRAMINE HCL 25 MG/10 ML CUP PO PRN (22:15)
[2017-09-11] MEDS: PROMETHAZINE HCL 25 MG TAB PO PRN (22:15)
[2017-09-11] MEDS: MIRTAZAPINE 15 MG TAB PO PRN (22:15)
[2017-09-11] MEDS ORDERED: DIPHENHYDRAMINE HCL ELIX 12.5 MG/5 ML UDC ONE (22:51)
[2017-09-11] MEDS: DIPHENHYDRAMINE HCL 25 MG/10 ML CUP PO PRN (23:07)
[2017-09-12] VITALS (9 sets, daily range): BP systolic 120–139; BP diastolic 79–98
[2017-09-12 06:25] LABS: BASOPHILS % 0.5 % (0.0-1.0); EOSINOPHILS # (AUTO) 0.1 (0.0-0.4); HEMATOCRIT 29.2 % (34.2-44.1); HEMOGLOBIN 8.8 g/dL (12.0-16.0); LYMPHOCYTES # (AUTO) 0.9 (1.0-3.2); LYMPHOCYTES % 20.6 % (18.0-39.1); MEAN CORPUSCULAR HEMOGLOBIN 27.7 pg (28-32); MEAN CORPUSCULAR HGB CONC 30.1 g/dL (31-35); MEAN CORPUSCULAR VOLUME 91.8 fL (81-99); MONOCYTES # (AUTO) 0.2 (0.2-0.8); MONOCYTES % 3.4 % (4.4-11.3); NEUTROPHILS # (AUTO) 3.2 (2.1-6.9); PLATELET COUNT 132 x10e3/uL (140-360); RED BLOOD COUNT 3.18 x10e6/uL (3.6-5.1); RED CELL DISTRIBUTION WIDTH 15.8 % (11.7-14.4)
[2017-09-12 06:46] LABS: CREATINE KINASE MB 0.8 ng/mL (0-5.0)
[2017-09-12 07:16] LABS: ANION GAP 12.2 mmol/L (8-16); CALCIUM 8.9 mg/dL (8.4-10.2); CREATININE, SERUM 3.89 mg/dL (0.57-1.11); MAGNESIUM 1.9 MG/DL (1.3-2.1); PHOSPHORUS 3.6 MG/DL (2.3-4.7); POTASSIUM 4.2 mmol/L (3.5-5.1)
[2017-09-12] MEDS: PANTOPRAZOLE SODIUM 40 MG SUSPDR.PKT PO SCH ×2 (07:30→16:30)
[2017-09-12] MEDS: INSULIN REGULAR, HUMAN 100 UNIT/1 ML 3ML VIAL SQ SCH ×4 (07:30→21:00)
[2017-09-12] MEDS: DIPHENHYDRAMINE HCL INJ 50 MG/ML VIAL IV PRN (08:14)
[2017-09-12] MEDS: PHENYTOIN SODIUM EXT REL 100 MG CAP PO SCH ×2 (09:00→21:00)
[2017-09-12] MEDS ORDERED: FOLIC ACID PO SCH (09:00)
[2017-09-12] MEDS ORDERED: VITAMIN B COMP W C PO SCH (09:00)
[2017-09-12] MEDS: FOLIC ACID/CYANOCOB/PYRIDOXINE TAB PO SCH (09:00)
[2017-09-12] MEDS: POLYETHYLENE GLYCOL 3350 17 GM PACK PO SCH (09:00)
[2017-09-12] MEDS: CARVEDILOL 12.5 MG TAB PO SCH ×2 (09:00→17:00)
[2017-09-12] MEDS: DOCUSATE SODIUM 100 MG CAP PO SCH ×2 (09:00→17:00)
[2017-09-12] MEDS: FUROSEMIDE 40 MG TAB PO SCH ×2 (09:00→17:00)
[2017-09-12] MEDS: METOCLOPRAMIDE HCL 10 MG TAB PO SCH ×3 (11:30→21:00)
[2017-09-12] MEDS ORDERED: SODIUM CHLORIDE 0.9% 1000ML 2,000 ML ONE (12:53)
[2017-09-12] MEDS: DILTIAZEM HCL 30 MG TAB PO SCH ×4 (13:00→21:00)
[2017-09-12] MEDS ORDERED: ALBUMIN 25% 12.5GM 50 ML IV PRN (14:15)
[2017-09-12] MEDS ORDERED: MANNITOL 25% 12.5GM/50 ML VIAL IV PRN (14:15)
[2017-09-12] MEDS ORDERED: HEPARIN SOD (PORCINE) 1000 UNIT/ML SDV IV PRN (14:15)
[2017-09-12 15:06] LABS: HEMATOCRIT 30.4 % (34.2-44.1); HEMOGLOBIN 9.3 g/dL (12.0-16.0)
[2017-09-12 15:10] LABS: BILIRUBIN,URINE NEGATIVE (NEGATIVE); CLARITY,URINE CLEAR (CLEAR); COLOR,URINE YELLOW (YELLOW); KETONES,URINE NEGATIVE (NEGATIVE); LEUKOCYTE ESTERASE ,URINE NEGATIVE (NEGATIVE); NITRITE,URINE NEGATIVE (NEGATIVE); PROTEIN,URINE DIPSTICK 3+ (NEGATIVE); URINE UROBILINOGEN 0.2 mg/dL (0.2 - 1)
[2017-09-12] MEDS: PROMETHAZINE HCL 25 MG TAB PO PRN (15:18)
[2017-09-12 15:26] LABS: BACTERIA,URINE RARE /HPF
[2017-09-12 15:27] LABS: EPITHELIAL CELLS,URINE MODERATE /LPF; MUCUS,URINE FEW (RARE)
[2017-09-12] MEDS ORDERED: METRONIDAZOLE 250MG/NS 50ML 50 ML IV SCH (16:30)
[2017-09-12] MEDS: LEVETIRACETAM 500 MG TAB PO SCH (17:00)
[2017-09-12] MEDS ORDERED: SODIUM CHLORIDE 0.9% 250ML 250 ML ONE (18:08)
[2017-09-12] MEDS ORDERED: AMMONIUM LACTATE 12% LOTION 225GM BTL TOP PRN (18:45)
--- NOTE | 2017-09-12 19:36 | Diagnostic Imaging Report ---
Portable chest x-ray INDICATION: Pulmonary edema COMPARISON: CT abdomen 1414 hours, chest x-ray 09/08/2017 FINDINGS: Frontal view of the chest obtained at 1856 hours. The cardiac silhouette is mildly enlarged and stable in morphology. MediPort catheter remains in the SVC. Dual lumen central venous catheter terminates in the RA/SVC junction. The pulmonary vascular markings are normal. Widespread groundglass airspace opacities have developed. This is superimposed on more nodular airspace opacities identified on CT. No large effusions. No pneumothorax. The osseous structures are stable. Visualized upper abdomen is unremarkable. IMPRESSION: 1. Worsening pulmonary edema. Multiple nodular opacities in the lungs may represent fungal pneumonia. 2. Stable cardiomegaly and medical devices. Signed by: Dr. Ana M De Paz MD on 09/12/2017 7:32 PM
[2017-09-12] MEDS: FUROSEMIDE INJ 10 MG/ML 4 ML VIAL IV SCH (20:30)
[2017-09-12] MEDS: MORPHINE SULFATE 30 MG TAB ER PO PRN (23:18)
[2017-09-12] MEDS: DIPHENHYDRAMINE HCL 25 MG/10 ML CUP PO PRN (23:19)
[2017-09-12] MEDS: MIRTAZAPINE 15 MG TAB PO PRN (23:24)
[2017-09-12] MEDS: CLONAZEPAM 0.5 MG TAB PO PRN (23:45)
[2017-09-13 00:52] VITALS: BP 148/102
[2017-09-13 05:52] VITALS: BP 121/82
[2017-09-13 06:52] LABS: BASOPHILS % 0.3 % (0.0-1.0); EOSINOPHILS # (AUTO) 0.1 (0.0-0.4); EOSINOPHILS % 3.3 % (0.0-6.0); HEMATOCRIT 34.6 % (34.2-44.1); HEMOGLOBIN 10.3 g/dL (12.0-16.0); LYMPHOCYTES % 25.3 % (18.0-39.1); MEAN CORPUSCULAR HEMOGLOBIN 27.5 pg (28-32); MEAN CORPUSCULAR HGB CONC 29.8 g/dL (31-35); MEAN CORPUSCULAR VOLUME 92.5 fL (81-99); MONOCYTES # (AUTO) 0.2 (0.2-0.8); MONOCYTES % 5.5 % (4.4-11.3); NEUTROPHILS # (AUTO) 2.6 (2.1-6.9); NEUTROPHILS % 65.1 % (38.7-80.0); PLATELET COUNT 163 x10e3/uL (140-360); RED BLOOD COUNT 3.74 x10e6/uL (3.6-5.1); RED CELL DISTRIBUTION WIDTH 15.5 % (11.7-14.4)
[2017-09-13 07:00] VITALS: BP 134/89
[2017-09-13 07:09] LABS: ALBUMIN 2.7 g/dL (3.5-5.0); ALBUMIN/GLOBULIN RATIO 0.6 (0.8-2.0); ANION GAP 11.9 mmol/L (8-16); CALCIUM 9.4 mg/dL (8.4-10.2); CREATININE, SERUM 2.74 mg/dL (0.57-1.11); POTASSIUM 3.9 mmol/L (3.5-5.1)
[2017-09-13] MEDS: INSULIN REGULAR, HUMAN 100 UNIT/1 ML 3ML VIAL SQ SCH ×2 (07:30→11:30)
[2017-09-13] MEDS: DIPHENHYDRAMINE HCL 25 MG/10 ML CUP PO PRN (07:47)
[2017-09-13 08:15] VITALS: BP 134/89
[2017-09-13] MEDS: METOCLOPRAMIDE HCL 10 MG TAB PO SCH ×2 (08:24→12:01)
[2017-09-13] MEDS: PANTOPRAZOLE SODIUM 40 MG SUSPDR.PKT PO SCH (08:24)
[2017-09-13] MEDS: CARVEDILOL 12.5 MG TAB PO SCH (09:00)
[2017-09-13] MEDS: POLYETHYLENE GLYCOL 3350 17 GM PACK PO SCH (09:00)
[2017-09-13] MEDS: DILTIAZEM HCL 30 MG TAB PO SCH (09:00)
[2017-09-13] MEDS: LEVETIRACETAM 500 MG TAB PO SCH (09:00)
[2017-09-13] MEDS: FUROSEMIDE INJ 10 MG/ML 4 ML VIAL IV SCH (09:00)
[2017-09-13] MEDS ORDERED: FUROSEMIDE INJ 10 MG/ML 4 ML VIAL IV SCH (09:00)
[2017-09-13] MEDS: DOCUSATE SODIUM 100 MG CAP PO SCH (09:00)
[2017-09-13] MEDS: PHENYTOIN SODIUM EXT REL 100 MG CAP PO SCH (09:00)
[2017-09-13] MEDS: FOLIC ACID/CYANOCOB/PYRIDOXINE TAB PO SCH (09:00)
[2017-09-13] MEDS: DIPHENHYDRAMINE HCL INJ 50 MG/ML VIAL IV PRN (09:13)
[2017-09-13] MEDS: MORPHINE SULFATE 30 MG TAB ER PO PRN (09:13)
[2017-09-13] MEDS ORDERED: SODIUM CHLORIDE 0.9% 1000ML 1,000 ML ONE (09:21)
[2017-09-13 11:50] VITALS: BP 140/102
[2017-09-13] MEDS: CLONAZEPAM 0.5 MG TAB PO PRN (12:36)
--- NOTE | 2017-09-14 00:14 | Discharge Summary ---
ADMISSION DIAGNOSES: 1. Type 1 diabetes with peripheral neuropathy. 2. Diabetic autonomic neuropathy. 3. Neurogenic bladder. 4. Gastroparesis. 5. End-stage renal disease. 6. Hypertension. 7. Paroxysmal atrial fibrillation. 8. Congestive heart failure. 9. Seizures. 10. Asthma. 11. Anxiety. 12. Surgical history of percutaneous endoscopic gastrostomy and cholecystectomy. Dictated by Wendy Brunner NP. DICTATION ENDS HERE JOHN BAHENA MD Job#: [id number] GE
--- NOTE | 2017-09-14 17:42 | Discharge Summary ---
ADMISSION DIAGNOSES: 1. Syncope. 2. Volume overload. 3. Pulmonary edema. 4. Type 1 diabetes. 5. End-stage renal disease. 6. Status post fall. 7. Hypertension. 8. Congestive heart failure. 9. Urinary tract infection. 10. Nausea and vomiting with gastroparesis. 11. Anxiety. DISCHARGE DIAGNOSES: 1. Syncope. 2. Volume overload. 3. Pulmonary edema. 4. Type 1 diabetes. 5. End-stage renal disease. 6. Status post fall. 7. Hypertension. 8. Congestive heart failure. 9. Urinary tract infection. 10. Nausea and vomiting with gastroparesis. 11. Anxiety. 12. Rule out urinary tract infection. 13. Rule out cerebrovascular accident. HISTORY: Patient has a history of type 1 diabetes with peripheral neuropathy, neurogenic bladder, gastroparesis, end-stage renal disease, hypertension, paroxysmal AFib, CHF with seizure disorder, asthma, anxiety. Surgical history of PEG and cholecystectomy. HOSPITAL COURSE: Patient reports increased shortness of breath, nausea, vomiting, dizziness status post discharge from the admission 2 days ago. She also complains that she fell in the shower again. On admission, patient was given dialysis, 4 L were removed. Patient had a chest x-ray which showed pulmonary edema. CT of the abdomen showed no acute pelvic abnormality, G-tube in place, pulmonary edema. CT of the brain showed no acute intracranial abnormality. No changes from the CT of the head done 3 days earlier. Blood cultures were negative. Urine cultures were negative. Echo showed an EF of 35% to 40% with left ventricular hypertrophy, trace tricuspid regurg, pulmonic insufficiency, mild mitral regurg. Carotid Doppler showed no significant stenosis bilaterally. Patient will be discharged home once again with her mother. She was instructed that she should stop skipping her dialysis day and may be her dizziness and syncope is from either over medicating or having the water too hot in the shower. She was instructed that she will no longer be given IV medications and she should decrease the amount of the sedating medications that she is taking. She will follow up with dialysis as discussed with case management. She was instructed that there were no abnormalities on any of her tests and she is safe to discharge home. She will follow up with primary care in 1 to [address] Barrios as needed. Dictated by Wendy Brunner NP JOHN BAHENA MD Job#: [id number] GE
== END 2017-09-13 14:35 | disposition home or self-care (01) | DRG 640 ==
LOC: ER 12:19 → ERHOLD 15:25 → MED/SURG3 18:05
PROVIDERS: ADMIT Internal Medicine; ATTEND Internal Medicine
PROC: 5A1D70Z Performance of Urinary Filtration, Intermittent, Less than 6 Hours Per Day (ICD-10-PCS; principal; 2017-09-12)
DX: E87.70 Fluid overload, unspecified (principal); N18.6 End stage renal disease; N39.0 Urinary tract infection, site not specified; J81.1 Chronic pulmonary edema; I13.2 Hypertensive heart and chronic kidney disease with heart failure and with stage 5 chronic kidney disease, or end stage renal disease; I50.22 Chronic systolic (congestive) heart failure; R55 Syncope and collapse; E10.22 Type 1 diabetes mellitus with diabetic chronic kidney disease; Z99.2 Dependence on renal dialysis; E10.43 Type 1 diabetes mellitus with diabetic autonomic (poly)neuropathy; K31.84 Gastroparesis; Z79.4 Long term (current) use of insulin; I48.0 Paroxysmal atrial fibrillation; G40.909 Epilepsy, unspecified, not intractable, without status epilepticus; Z93.1 Gastrostomy status; Z91.81 History of falling; F41.9 Anxiety disorder, unspecified; N31.9 Neuromuscular dysfunction of bladder, unspecified; Z88.5 Allergy status to narcotic agent; Z88.0 Allergy status to penicillin; Z88.8 Allergy status to other drugs, medicaments and biological substances; Z88.6 Allergy status to analgesic agent; Z91.040 Latex allergy status
CPT/HCPCS: 36415; 70450; 71045; 74176; 80048; 80053; 80185; 81001; 81025; 82542; 82550; 82553; 82948; 83605; 83690; 83735; 83880; 84100; 84484; 85014; 85018; 85025; 86704; 86706; 87040; 87086; 87340; 93005; 93306; 93880; 94640; 97139; 99285; J1200; J1642; J1644; J1940; J2060; J2270; J2550; J3370; J7030; J7050; Q0169

== ENCOUNTER 2017-09-14 15:26 | Emergency (ER) | payer OTHER ==
[~2017-09-14] VITALS: Ht 160 cm; Wt 68.9 kg
--- OUTSIDE RECORDS SUMMARY | 2017-09-14 15:30 | XMS REPORT | Clinical Summary ---
Author Author [facility]YAN [facility] Address Unknown Phone Unavailable Care Team Providers Care Wort Extractor Name Role Phone PCP Unavailable Allergies Active [...] failure (HCC) 08/22/2016 End stage renal disease ([facility]) 08/22/2016 IDDM (insulin dependent diabetes mellitus) ([facility]) 08/22/2016 Epilepsy ([facility]) 08/22/2016 Anxiety 08/22/2016 Chronic pain due to trauma 08/22/2016 Gastroparesis 08/22/2016 Diabetic polyneuropathy associated with type 1 diabetes mellitus (HCC) 08/22 Secondary hyperparathyroidism of renal origin ([facility]) 08/22/2016 Anemia in chronic kidney disease(285.21) 08/22/2016 Thrombocytopenia ([facility]) 08/22/2016 Pituitary tumor 08/22/2016 Benign hypertension with end-stage renal disease ([facility]) 08/22/2016 Neurogenic bladder 08/22/2016 Pre-transplant [...] 10/08/2016 Abstract Transplant Augustina Pozo RN after 09/13/2016 Social History Tobacco Use Types Packs/Day Years Used Date Never Smoker Alcohol Use Drinks/Week oz/Week Comments No Sex Assigned at Date Recorded Not on file Last Filed Vital Signs Not on file Plan of Treatment Health Maintenance Due Date Last Done Comments INFLUENZA VACCINE 01/13/2018 Results Not on fileafter 09/13/2016
--- OUTSIDE RECORDS SUMMARY | 2017-09-14 15:31 | XMS REPORT | Continuity of Care Document ---
Author Author [facility] Organization [facility] Address [address] [place] [address] Phone Unavailable Care Team Providers Care Sql Database Administrator Name Role Phone JOHN BAHENA MD PCP Insurance Providers Guarantor Sonam Bermeo Address [address] [place] [address] Email [email or web address] Payer [place] Medicaid Policy Number [id number] Subscriber's Name Sonam Bermeo Relationship 18 Self / Same As Patient Group Number [id number] Group Name UNEMPLOYED Effective Date 16 Advance Directives Directive Response Recorded Date/Time Does the patient have an advance directive? No 09/11/17 8:00pm If yes, is advance directive on file with [facility]? No 09/11/17 8:00pm If not on file with [facility] will patient provide a copy? No 09/11/17 8:00pm Do you have a Directive to Physician? No 09/11/17 1:00pm Do you have a Medical Power of Lime Kiln Operator? No 09/11/17 1:00pm Do you have an out of hospital Do Not Resuscitate Order? No 09/11/17 1:00pm Do you have any special needs we should be aware of? No 09/11/17 1:00pm Do you have a support person here with you today? Yes 09/11/17 1:00pm Did patient receive Notice of Privacy Practices? Yes 09/11/17 1:00pm Did patient receive patient rights and responsibilities? Yes 09/11/17 1:00pm Problems Medical Problem Onset Date Status Abdominal [...] heart sound) 01/02/2016 Acute Symptomatic anemia Unknown Syncope Unknown UTI (lower urinary tract infection) 07/30/2014 [...] Vial 7 Units Sub-Q As Needed Ipratropium [place] 0.2 Mg/1 Ml Solution 2.5 Ml Nebullizer As Needed Levetiracetam (Keppra) 500 Mg Tablet 500 Mg Oral Twice A Day Metoclopramide Hcl 10 Mg Tablet 10 Mg Oral Before Meals And At Bedtime 30 Days 06/27/17 Mirtazapine 15 Mg Tab 15 Mg Oral Bedtime 14 Days 04/11/17 Pantoprazole Sodium (Protonix) 40 Mg Suspdr.pkt 40 [...] Mg Oral Every 7 Days Discontinued Butalb/Acetaminophen/Caffeine (Nrewaq-Psavqvhw-Yhbk 50-325-40) 1 Each Tablet, Every 6 Hours [...] Once 06/30/17 Discontinued Fluticasone Propionate 1 Ea [place], 0 Ea Nasal Twice A Day 06/03/17 Discontinued Fluticasone Propionate 1 Ea [place], 1 Ea Nasal Twice A Day 06/13/16 [...] Morphine Sulfate (Ms Contin) 30 Mg Tablet.er, Oral Twice A Day Discontinued Morphine Sulfate (Ms Contin) 30 Mg [...] needed for Pain And Temperature 11/09/15 Discontinued [id number] 30 Mg Tabcr, 30 Mg Oral Daily [...] Onset Date Status Hx Psychiatric Problems No 09/11/2017 8:00pm Not Applicable Not Applicable Hx Eating Disorder No 09/11/2017 8:00pm Not Applicable Not Applicable Hx Substance Use Disorder No 09/11/2017 8:00pm Not Applicable Not Applicable Hx Depression No 09/11/2017 8:00pm Not Applicable Not Applicable Hx Alcohol Use No 09/11/2017 8:00pm Not Applicable Not Applicable Hx Substance Use Treatment No 09/11/2017 8:00pm Not Applicable Not Applicable Hx Physical Abuse No 09/11/2017 8:00pm Not Applicable Not Applicable Smoking Status Start Date Stop Date Unknown if ever smoked Hospital Discharge Instructions No hospital discharge instruction information available. Plan of Care Discharge Date 09/13/17 2:35pm Disposition HOME, SELF-CARE Instructions/Education Provided Syncope Prescriptions See Medication Section Referrals GILBERTO HENSLEY MD (Gastroenterology) Order Date: 1-2 Weeks Entered Date: 09/13/2017 10:23am Address: [address] [place] [id number] Additional Instructions/Education TAKE ALL MEDS PRESCRIBED DO NOT SKIP DIALYSIS DO NOT OVER MEDICATE FLUID RESTRICTION- 1.2LITERS/DAY Functional Status Query Response Date Recorded Assistive Devices None September 11, 2017 8:00pm Ambulation Ability Minimum Assistance September 11, 2017 8:00pm Toileting Ability Minimum Assistance September 11, 2017 8:00pm Allergies, Adverse Reactions, Alerts Allergen Type Severity [...] Vital Signs Vital Response Date/Time Temperature (Fahrenheit) 97.9 degrees F (97.6 - 99.5) 09/13/2017 11:50am Pulse Pulse Rate (adult) 108 bpm (60 - 90) 09/13/2017 11:50am Respiratory Rate 18 bpm (12 - 24) 09/13/2017 11:50am Blood Pressure 140/102 mm Hg 09/13/2017 11:50am Height 5 ft 3 in 09/11/2017 12:49pm Weight 152 lb 09/11/2017 12:49pm Body Mass Index 26.9 kg/m^2 09/11/2017 8:00pm Results Laboratory Results Test Name Result Units Flags Reference Collection Date/Time Result Date/ Time Comments Reactive Lymphocytes 1 01/24/2017 6:19am 01/24/2017 8:25am Blast Cells % 1 01/24/2017 6:19am 01/24/2017 8:25am Clostridium Difficile Toxin A & B NEGATIVE NEGATIVE 01/31/2017 2:30am 01/31/2017 12:27pm Testing on stool aspirate specimens is outside roller [employer] claims since specimen type not validated on [...] with a HCV Nucleic Acid Amplification test ([id number]). [facility] [id number] Dir: Robles Samayoa MD For inquiries, the physician may contact Branch: [phone] Lab: [phone] Amylase Level 69 U/L 25-125 06/06/2017 11:30pm 06/06/2017 11:53pm Phospholipids Level 225 06/06/2017 11:30pm 06/12/2017 12:42pm Reference Range:150 - 250 mg/dL Results for this test are for research purposes only by the assay's roller structural mill. The performance characteristics of this product have not been established. Results should not be used as a diagnostic procedure without confirmation of the diagnosis by another medically established diagnostic product or procedure. Testing performed by: [address] [id number] . Santana Salmeron MD Stool Occult Blood POSITIVE H NEGATIVE 06/06/2017 11:30pm 06/06/2017 11:41pm D-Dimer Quantitative (PE/DVT) 0.41 ug/mLFEU 0.00-0.45 07/02/2017 [...] RARE FEW 07/05/2017 8:45am 07/05/2017 10: 13am Thyroid Stimulating Hormone (TSH) 1.112 uIU/mL 0.350-4.940 07/05/2017 9: 10am 07/05/2017 10:17am Prothrombin Time 16.8 seconds H 11.9-14.5 07/12/2017 [...] MODERATE H NONE 07/07/2017 3:28pm 07/07/2017 3:56pm Human Chorionic Gonadotropin, Quant < 1.20 mIU/mL 0-10 07/08/2017 4: 10am 07/08/2017 3:51pm Hepatitis Be Antibody Negative Negative 07/09/2017 6:40am 07/11/2017 3:06pm Performed at: - [facility] [id number] Inspector Handbag Frames: Santana Salmeron MD, Phone: [phone] Hepatitis Be Antigen Negative Negative 07/10/2017 5:38am 07/11/2017 8 :07am Performed at: - [facility] [id number] Inspector Handbag Frames: Robles Samayoa MD, Phone: [phone] Platelet Estimate MODERATELY DECREASED 09/09/2017 6:15am 2017 7:59am Platelet Morphology Comment NORMAL 09/09/2017 6:15am 09/09/2017 7: 59am Hypochromasia MODERATE 09/09/2017 6:15am 09/09/2017 7:59am Poikilocytosis SLIGHT 09/09/2017 6:15am 09/09/2017 7:59am Anisocytosis SLIGHT 09/09/2017 6:15am 09/09/2017 7:59am Red Cell Morphology Comment ABNORMAL 09/09/2017 6:15am 09/09/2017 7 :59am Hemoglobin A1c Percent 7.4 % H 4.0-7.0 09/10/2017 5:55am 09/10/2017 6: 42am Iron Level 37 ug/dL L 50-170 09/10/2017 5:55am 09/10/2017 7:00am Total Iron Binding Capacity 165 ug/dL L 261-478 09/10/2017 5:55am 2017 7:00am Percent Iron Saturation 22 % 15-50 09/10/2017 5:55am 09/10/2017 7:00am Transferrin 118 mg/dL L 180-382 09/10/2017 5:55am 09/10/2017 7:00am Human Chorionic Gonadotropin, Qual NEGATIVE NEGATIVE 09/08/2017 8: 42pm 09/08/2017 9:01pm White Blood Count 4.00 x10e3/uL L 4.8-10.8 09/13/2017 6:21am 09/13/2017 6:53am Red Blood Count 3.74 x10e6/uL 3.6-5.1 09/13/2017 6:09/13/2017 6: 53am Hemoglobin 10.3 g/dL L 12.0-16.0 09/13/2017 6:09/13/2017 6:53am Hematocrit 34.6 % 34.2-44.1 09/13/2017 6:09/13/2017 6:53am Mean Corpuscular Volume 92.5 fL 81-99 09/13/2017 6:09/13/2017 6: 53am Mean Corpuscular Hemoglobin 27.5 pg L 28-32 09/13/2017 6:am 2017 6:53am Mean Corpuscular Hemoglobin Concent 29.8 g/dL L 31-35 09/13/2017 6:09/13/2017 6:53am Red Cell Distribution Width 15.5 % H 11.7-14.4 09/13/2017 6:2017 6:53am Platelet Count 163 x10e3/uL 140-360 09/13/2017 6:09/13/2017 6: 53am Neutrophils (%) (Auto) 65.1 % 38.7-80.0 09/13/2017 6:09/13/2017 6: 53am Lymphocytes (%) (Auto) 25.3 % 18.0-39.1 09/13/2017 6:09/13/2017 6: 53am Monocytes (%) (Auto) 5.5 % 4.4-11.3 09/13/2017 6:09/13/2017 6: 53am Eosinophils (%) (Auto) 3.3 % 0.0-6.0 09/13/2017 6:09/13/2017 6: 53am Basophils (%) (Auto) 0.3 % 0.0-1.0 09/13/2017 6:09/13/2017 6:53am IM GRANULOCYTES % 0.5 % 0.0-1.0 09/13/2017 6:09/13/2017 6:53am Neutrophils # (Auto) 2.6 2.1-6.9 09/13/2017 6:09/13/2017 6:53am Lymphocytes # (Auto) 1.0 1.0-3.2 09/13/2017 6:09/13/2017 6:53am Monocytes # (Auto) 0.2 0.2-0.8 09/13/2017 6:09/13/2017 6:53am Eosinophils # (Auto) 0.1 0.0-0.4 09/13/2017 6:09/13/2017 6:53am Basophils # (Auto) 0.0 0.0-0.1 09/13/2017 6:09/13/2017 6:53am Absolute Immature Granulocyte (auto 0.02 x10e3/uL 0-0.1 09/13/2017 6: 09/13/2017 6:53am Urine Color YELLOW YELLOW 09/12/2017 3:00pm 09/12/2017 3:10pm Urine Clarity CLEAR CLEAR 09/12/2017 3:00pm 09/12/2017 3:10pm Urine Specific [place] 1.015 1.010-1.025 09/12/2017 3:00pm 2017 3:10pm Urine pH 7 5 - 7 09/12/2017 3:00pm 09/12/2017 3:10pm Urine Leukocyte Esterase NEGATIVE NEGATIVE 09/12/2017 3:00pm 2017 3:10pm Urine Nitrite NEGATIVE NEGATIVE 09/12/2017 3:00pm 09/12/2017 3:10pm Urine Protein 3+ H NEGATIVE 09/12/2017 3:00pm 09/12/2017 3:10pm Urine Glucose (UA) NEGATIVE NEGATIVE 09/12/2017 3:00pm 09/12/2017 3: 10pm Urine Ketones NEGATIVE NEGATIVE 09/12/2017 3:00pm 09/12/2017 3:10pm Urine Urobilinogen 0.2 mg/dL 0.2 - 1 09/12/2017 3:00pm 09/12/2017 3: 10pm Urine Bilirubin NEGATIVE NEGATIVE 09/12/2017 3:00pm 09/12/2017 3: 10pm Urine Blood 1+ H NEGATIVE 09/12/2017 3:00pm 09/12/2017 3:10pm Urine WBC 6-10 /HPF H 0-5 09/12/2017 3:00pm 09/12/2017 3:27pm Urine RBC 6-10 /HPF H 0-5 09/12/2017 3:00pm 09/12/2017 3:27pm Urine Bacteria RARE /HPF NONE 09/12/2017 3:00pm 09/12/2017 3:27pm Urine Epithelial Cells MODERATE /LPF NONE 09/12/2017 3:00pm 09/12/2017 3:27pm Urine Mucus FEW H RARE 09/12/2017 3:00pm 09/12/2017 3:27pm Urine Test NEGATIVE NEGATIVE 09/11/2017 1:30pm 09/11/2017 2 :02pm Sodium Level 140 mmol/L 136-145 09/13/2017 6:21am 09/13/2017 7:11am Potassium Level 3.9 mmol/L 3.5-5.1 09/13/2017 6:2109/13/2017 7:11am Chloride Level 104 mmol/L 98-107 09/13/2017 6:09/13/2017 7:11am Carbon Dioxide Level 28 mmol/L 22-29 09/13/2017 6:09/13/2017 7: 11am Anion Gap 11.9 mmol/L 8-16 09/13/2017 6:09/13/2017 7:11am Blood Urea Nitrogen 18 mg/dL 7-09/13/2017 6:09/13/2017 7:11am Creatinine 2.74 mg/dL H 0.57-1.11 09/13/2017 6:09/13/2017 7:11am BUN/Creatinine Ratio 7 6-09/13/2017 6:09/13/2017 7:11am Estimat Glomerular Filtration Rate 25 ML/MIN L 60- 09/13/2017 6:04/2017 7:11am Ranges were taken from the National Kidney Disease Education Program and the National Kid[employer] Foundation literature. Reference ranges: 60 or greater: Normal 16-59 (for 3 consecutive months): Chronic kidney disease 15 or less: Kidney failure Glucose Level 149 mg/dL H 74-118 09/13/2017 6:09/13/2017 7:11am Calcium Level 9.4 mg/dL 8.4-10.2 09/13/2017 6:09/13/2017 7:11am Bedside Glucose 181 mg/dL H 70-120 09/13/2017 11:09/13/2017 11: 45am Meter ID: [id number] Lactic Acid Level 13.1 MG/DL 4.5-19.8 09/11/2017 1:30pm 09/11/2017 2: 16pm Phosphorus Level 3.6 MG/DL 2.3-4.7 09/12/2017 6:09/12/2017 7:17am Magnesium Level 1.9 MG/DL 1.3-2.1 09/12/2017 6:09/12/2017 7:17am Total Bilirubin 0.5 mg/dL 0.2-1.2 09/13/2017 6:09/13/2017 7:11am Aspartate Amino Transf (AST/SGOT) 22 IU/L 5-34 09/13/2017 6:2017 7:11am Alanine Aminotransferase (ALT/SGPT) 24 IU/L 0-55 09/13/2017 6:04/2017 7:11am Total Protein 7.2 g/dL 6.5-8.1 09/13/2017 6:09/13/2017 7:11am Albumin 2.7 g/dL L 3.5-5.0 09/13/2017 6:09/13/2017 7:11am Globulin 4.5 g/dL H 2.3-3.5 09/13/2017 6:09/13/2017 7:11am Albumin/Globulin Ratio 0.6 L 0.8-2.0 09/13/2017 6:09/13/2017 7: 11am Alkaline Phosphatase 154 IU/L H 40-150 09/13/2017 6:09/13/2017 7: 11am B-Type Natriuretic Peptide 2885.4 pg/mL H 0-100 09/13/2017 6:2017 7:34am Creatine Kinase 27 IU/L L 29-168 09/12/2017 6:16am 09/12/2017 6:45am Creatine Kinase MB 0.80 ng/mL 0-5.0 09/12/2017 6:1609/12/2017 6: 47am Troponin I 0.001 ng/mL 0-0.300 09/12/2017 6:16am 09/12/2017 6:47am Lipase 15 U/L 8-78 09/11/2017 1:30pm 09/11/2017 2:25pm Phenytoin (Dilantin) Level 1.30 ug/mL L 10-20 09/11/2017 1:30pm 2017 2:34pm Hepatitis B Surface Antibody, Quant 469.5 mIU/mL Immunity>9.9 2017 1:50pm 09/13/2017 9:42am Status of Immunity Anti- HBs Level Inconsistent with Immunity 0.0 - 9.9 Consistent with Immunity >9.9 Hepatitis B Core Total Antibody Negative Negative 09/12/2017 1:50pm 09/13/2017 9:42am Performed at: [facility] - [facility] [address] [id number] Inspector Handbag Frames: Robles Samayoa MD, Phone: [phone] Hepatitis B Surface Antigen Negative Negative 09/12/2017 1:50pm 09/13 9:42am Microbiology Results Procedure Source Organism/Result Collection Date/Time Result Date/Time Result Status Urine Culture Urine,Random MARIUSZ GLABRATA 04/11/2017 3:00pm 04/16/2017 6 :14am Final Urine Culture Urine,[place] ENTEROCOCCUS FAECIUM-VRE 07/02/2017 6:03pm 07/05/2017 8:19am Final Urine Culture Urine,Catheterized MARIUSZ GLABRATA 07/07/2017 3:28pm 2017 8:15am Final Urine Culture Urine,Clean Catch MARIUSZ GLABRATA 08/03/2017 6:20pm 2017 3:01pm Final ESCHERICHIA COLI 08/03/2017 6:20pm 08/07/2017 3:01pm Final ENTEROCOCCUS FAECIUM-VRE 08/03/2017 6:20pm 08/07/2017 3:01pm Final Blood Culture Blood NO GROWTH AFTER 48 HOURS 1:30pm 09/13/2017 1:56pm Preliminary Procedures Procedure Status Date Provider(s) INSERTION OF INFUSION DEV INTO SUP VENA CAVA, PERC APPROACH Completed PALLAVI LEYVA MD REMOVAL OF INFUSION DEVICE FROM UPPER VEIN, OPEN APPROACH Completed 12/18/16 PALLAVI BARRIENTOS MD REMOVAL OF INFUSION DEVICE FROM UPPER VEIN, OPEN APPROACH Completed 12/18/16 PLALAVI BARRIENTOS MD INSERTION OF INFUSION DEV INTO [...] USING LOW OSMOLAR CONTRAST Completed 05/31/17 HANK SALMREON MD, SALMAN REMOVAL OF INFUSION DEVICE FROM UPPER VEIN, BIG DATA ENGINEER APPROACH Completed HANK SALMERON MD, SALMAN INSERT [...] FEEDING DEVICE INTO JEJUNUM, ENDO Completed 07/12/17 WHIGHAM, NANCY DO PERFORMANCE OF URINARY FILTRATION, <6 HRS/DAY [...] abdomen and pelvis without contrast Active 04/17/17 ANAT, VINCENT PA X-ray of chest, single view Active [...] without contrast Active 09/08/[address] of abdomen and pelvis without contrast Active 09/11/17 SAM EATON MD Computed tomography of brain without radiopaque contrast Active 09/11/17 SAM EATON MD Encounters Encounter Location Arrival/Admit Date Discharge/Depart Date Attending Provider Discharged Inpatient [facility] 09/11/17 3:25pm 09/13/17 2:35pm JOHN BAHENA MD Discharged Inpatient (obs) [facility] 09/08/17 10:41pm 4:47pm JOHN BAHENA MD Discharged Inpatient (obs) [facility] 08/02/17 5:09pm 1:52pm JOHN BAHENA MD Discharged Inpatient [facility] 07/10/17 8:42pm 07/14/17 1:57pm JOHN ABHENA MD [facility] MD Departed Emergency [facility] 02/13/17 5:05pm 12:06am MIREILLE AMOR MD Discharged Inpatient [facility] 01/23/17 4:02am 02/11/17 4:47pm JOHN BAHENA MD Discharged Inpatient [facility] 01/02/17 12:31am 5:19pm JOHN BAHENA MD Discharged [facility]patient [facility] 12/16/16 6:45pm 12/20/16 6:47pm JOHN BAHENA MD
[2017-09-14] MEDS ORDERED: PROMETHAZINE HCL (IM) 25 MG/ML VIAL IM ONE (16:45)
[2017-09-14] MEDS ORDERED: CEFTRIAXONE SOD 1 GM VIAL IM ONE (16:45)
[2017-09-14] MEDS ORDERED: PHENYTOIN SODIUM EXT REL 100 MG CAP PO ONE (17:30)
[2017-09-14] MEDS ORDERED: MORPHINE SULFATE 2 MG/ML SYR IM STA (17:47)
[2017-09-14] MEDS ORDERED: DIPHENHYDRAMINE HCL 25 MG CAP PO NR (18:00)
== END 2017-09-14 19:10 | disposition home or self-care (01) ==
LOC: ER 15:26
DX: R55 Syncope and collapse (principal); R42 Dizziness and giddiness; R11.0 Nausea; I12.0 Hypertensive chronic kidney disease with stage 5 chronic kidney disease or end stage renal disease; E11.22 Type 2 diabetes mellitus with diabetic chronic kidney disease; N18.6 End stage renal disease; Z99.2 Dependence on renal dialysis; G40.909 Epilepsy, unspecified, not intractable, without status epilepticus; I50.9 Heart failure, unspecified; F99 Mental disorder, not otherwise specified; K21.9 Gastro-esophageal reflux disease without esophagitis
CPT/HCPCS: 99284; J0696; J2270; J2550

== ENCOUNTER 2017-09-16 11:24 | Emergency (ER) | payer OTHER ==
[~2017-09-16] VITALS: Ht 160 cm; Wt 62.1 kg
--- OUTSIDE RECORDS SUMMARY | 2017-09-16 11:28 | XMS REPORT | Clinical Summary ---
Author Author KALYAN [facility] Address Unknown Phone Unavailable Care Team Providers Care Vamp Presser Name Role Phone PCP Unavailable Allergies Active [...] (HCC) 08/22/2016 End stage renal disease ([facility]) 08/22/2016 IDDM (insulin dependent diabetes mellitus) ([facility]) 08/22/2016 Epilepsy ([facility]) 08/22/2016 Anxiety 08/22/2016 Chronic pain due to trauma 08/22/2016 Gastroparesis 08/22/2016 Diabetic polyneuropathy associated with type 1 diabetes mellitus (HCC) 08/22 Secondary hyperparathyroidism of renal origin ([facility]) 08/22/2016 Anemia in chronic kidney disease(285.21) 08/22/2016 Thrombocytopenia ([facility]) 08/22/2016 Pituitary tumor 08/22/2016 Benign hypertension with end-stage renal disease ([facility]) 08/22/2016 Neurogenic bladder 08/22/2016 Pre-transplant evaluation [...] 10/08/2016 Abstract Transplant Augustina Pozo RN after 09/15/2016 Social History Tobacco Use Types Packs/Day Years Used Date Never Smoker Alcohol Use Drinks/Week oz/Week Comments No Sex Assigned at Date Recorded Not on file Last Filed Vital Signs Not on file Plan of Treatment Health Maintenance Due Date Last Done Comments INFLUENZA VACCINE 01/13/2018 Results Not on fileafter 09/15/2016
--- OUTSIDE RECORDS SUMMARY | 2017-09-16 11:28 | XMS REPORT | Continuity of Care Document ---
Author Author [facility] Organization [facility] Address [address] [place] [address] Phone Unavailable Care Team Providers Care Visual Merchandising Director Name Role Phone JOHN BAHENA MD PCP Insurance Providers Guarantor Sonam Bermeo Address [address] [place] [address] Email [email or web address] Payer [place] Medicaid Policy Number [id number] Subscriber's Name Sonam Bermeo Yulisa Relationship 18 Self / Same As Patient Group Number [id number] Group Name UNEMPLOYED Effective Date 16 Advance Directives Directive Response Recorded Date/Time Does the patient have an advance directive? No 09/11/17 8:00pm If yes, is advance directive on file with [facility]? No 09/11/17 8:00pm If not on file with [facility] will patient provide a copy? No 09/11/17 8:00pm Do you have a Directive to Physician? No 09/14/17 4:44pm Do you have a Medical Power of Blast Furnace Keeper? No 09/14/17 4:44pm Do you have an out of hospital Do Not Resuscitate Order? No 09/14/17 4:44pm Do you have any special needs we should be aware of? No 09/14/17 4:44pm Do you have a support person here with you today? Yes 09/14/17 4:44pm Did patient receive Notice of Privacy Practices? Yes 09/14/17 4:44pm Did patient receive patient rights and responsibilities? Yes 09/14/17 4:44pm Problems Medical Problem Onset Date Status Abdominal [...] Vial 7 Units Sub-Q As Needed Ipratropium Marshall 0.2 Mg/1 Ml Solution 2.5 Ml Nebullizer [...] Mg Oral Every 7 Days Discontinued Butalb/Acetaminophen/Caffeine (Lkwkrc-Ycvfcyzz-Zwgi 50-325-40) 1 Each Tablet, Every 6 Hours [...] Once 06/30/17 Discontinued Fluticasone Propionate 1 Ea [place], 0 Ea Nasal Twice A Day 06/03/17 Discontinued Fluticasone Propionate 1 Ea [place], 1 Ea Nasal Twice A Day 06/13/16 [...] needed for Pain And Temperature 11/09/15 Discontinued [id number] 30 Mg Tabcr, 30 Mg Oral Daily [...] information available. Plan of Care Discharge Date 09/14/17 7:10pm Disposition HOME, SELF-CARE Condition at Discharge Stable Instructions/Education Provided Syncope Forms Provided Work/School Excuse Prescriptions See Medication Section Referrals JOHN BAHENA MD Order Date: Call for an appointment Address: [address] [place] [id number] Additional Instructions/Education dc home follow up with pcp take meds as directed return to the er with any emergent conditions Functional Status No functional status information available. [...] 09/13/2017 11:50am Height 5 ft 3 in 09/14/2017 3:28pm Weight 152 lb 09/14/2017 3:28pm Body Mass Index 26.9 kg/m^2 09/14/2017 3:28pm Results Laboratory Results Test Name Result Units Flags Reference Collection Date/Time Result Date/ Time Comments Reactive Lymphocytes 1 01/24/2017 6:19am 01/24/2017 8:25am Blast Cells % 1 01/24/2017 6:19am 01/24/2017 8:25am Clostridium Difficile Toxin A & B NEGATIVE NEGATIVE 01/31/2017 2:30am 01/31/2017 12:27pm Testing on stool aspirate specimens is outside towel inspector claims since specimen type not validated [...] with a HCV Nucleic Acid Amplification test ([id number]). [address] [id number] Dir: Robles Samayoa MD For inquiries, the physician may contact Branch: [phone] Lab: [phone] Amylase Level 69 U/L 25-125 06/06/2017 11:30pm 06/06/2017 11:53pm Phospholipids Level 225 06/06/2017 11:30pm 06/12/2017 12:42pm Reference Range:150 - 250 mg/dL Results for this test are for research purposes only by the assay's towel inspector. The performance characteristics of this product have not been established. Results should not be used as a diagnostic procedure without confirmation of the diagnosis by another medically established diagnostic product or procedure. Testing performed by: [facility] [id number] Dir. Santana Salmeron MD Stool [...] 07/09/2017 6:40am 07/11/2017 3:06pm Performed at: - [facility] [id number] Bean Sprout Grower: Santana Salmeron MD, Phone: [phone] Hepatitis Be Antigen Negative Negative 07/10/2017 5:38am 07/11/2017 8 :07am Performed at: - [facility] [id number] [employer] Sprout Grower: Robles Samayoa MD, Phone: [phone] Platelet Estimate MODERATELY DECREASED 09/09/2017 6:15am 2017 7:59am Platelet Morphology Comment NORMAL 09/09/2017 6:15am 09/09/2017 7: 59am Hypochromasia MODERATE 09/09/2017 6:15am 09/09/2017 7:59am Poikilocytosis SLIGHT 09/09/2017 6:15am 09/09/2017 7:59am Anisocytosis SLIGHT 09/09/2017 6:15am 09/09/2017 7:59am Red Cell Morphology Comment ABNORMAL 09/09/2017 6:1509/09/2017 7 :59am Hemoglobin A1c Percent 7.4 % [...] Blood Count 4.00 x10e3/uL L 4.8-10.8 09/13/2017 6:09/13/2017 6:53am Red Blood Count 3.74 x10e6/uL 3.6-5.1 09/13/2017 6:09/13/2017 6: 53am Hemoglobin 10.3 g/dL L 12.0-16.0 09/13/2017 6:09/13/2017 6:53am Hematocrit 34.6 % 34.2-44.1 09/13/2017 6:09/13/2017 6:53am Mean Corpuscular Volume 92.5 fL 81-99 09/13/2017 6:09/13/2017 6: 53am Mean Corpuscular Hemoglobin 27.5 pg L 28-32 09/13/2017 6:2017 6:53am Mean Corpuscular Hemoglobin Concent 29.8 g/dL [...] CLEAR 09/12/2017 3:00pm 09/12/2017 3:10pm Urine Specific Romeo 1.015 1.010-1.025 09/12/2017 3:00pm 2017 3:10pm Urine [...] :02pm Sodium Level 140 mmol/L 136-145 09/13/2017 6:09/13/2017 7:11am Potassium Level 3.9 mmol/L 3.5-5.1 09/13/2017 6:2109/13/2017 7:11am Chloride Level 104 mmol/L 98-107 09/13/2017 6:2109/13/2017 7:11am Carbon Dioxide Level 28 mmol/L 09/13/2017 6:09/13/2017 7: 11am Anion Gap 11.9 mmol/L 8-09/13/2017 6:2109/13/2017 7:11am Blood Urea Nitrogen 18 mg/dL 11-0709/13/2017 6:09/13/2017 7:11am Creatinine 2.74 mg/dL H 0.57-1.11 09/13/2017 6:09/13/2017 7:11am BUN/Creatinine Ratio 7 6-25 09/13/2017 6:09/13/2017 7:11am Estimat Glomerular Filtration Rate 25 [...] 70-120 09/13/2017 11:09/13/2017 11: 45am Meter ID: [id number] Lactic Acid Level 13.1 MG/DL 4.5-19.8 09/11/2017 [...] 7:11am Globulin 4.5 g/dL H 2.3-3.5 09/13/2017 6:2109/13/2017 7:11am Albumin/Globulin Ratio 0.6 L 0.8-2.0 09/13/2017 6:2109/13/2017 7: 11am Alkaline Phosphatase 154 IU/L H 40-150 09/13/2017 6:09/13/2017 7: 11am B-Type Natriuretic Peptide 2885.4 pg/mL H 0-100 09/13/2017 6:21am 2017 7:34am Creatine Kinase 27 IU/L L 29-168 [...] Negative 09/12/2017 1:50pm 09/13/2017 9:42am Performed at: [address] [id number] Bean Sprout Grower: Robles Samayoa MD, Phone: [phone] Hepatitis B Surface Antigen Negative Negative 09/12/2017 1:50pm 09/13 9:42am Microbiology Results Procedure Source Organism/Result Collection Date/Time Result Date/Time Result Status Urine Culture Urine,Random MARIUSZ GLABRATA 04/11/2017 3:00pm 04/16/2017 6 :14am Final Urine Culture Urine,[place] ENTEROCOCCUS FAECIUM-VRE 07/02/2017 6:03pm 07/05/2017 8:19am Final Urine Culture Urine,Clean Catch MARIUSZ GLABRATA 08/03/2017 6:20pm 2017 3:01pm Final ESCHERICHIA COLI 08/03/2017 6:20pm 08/07/2017 3:01pm Final ENTEROCOCCUS FAECIUM-VRE 08/03/2017 6:20pm 08/07/2017 3:01pm Final Blood Culture Blood NO GROWTH AFTER 72 HOURS 1:30pm 09/14/2017 1:56pm Preliminary Urine Culture Urine,Catheterized GRAM POSITIVE APRIL 09/11/2017 1:50pm 09/14 12:27pm Preliminary YEAST SPECIES 09/11/2017 1:50pm 09/14/2017 12:27pm Preliminary Procedures Procedure Status Date Provider(s) INSERTION [...] REMOVAL OF INFUSION DEVICE FROM UPPER VEIN, PRESIDENT CELEBRITY ACQUISTION APPROACH Completed HANK SALMERON MD, SALMAN INSERT [...] of brain without radiopaque contrast Active 02/05/17 CNOSTANZA CHAN NP Magnetic resonance imaging of brain without contrast Active 02/07/17 CONSTANZA CHAN NP Ultrasound examination of pelvis, limited or follow-up Active 02/07/17 GAYLE ABEL X-ray of chest, two views Active 02/07/17 SOULEYMANE BRAN MD Computed tomography of brain without radiopaque contrast Active 02/13/17 MAGNO MORFIN NP Computed tomography of cervical spine without contrast Active 02/13/17 MAGNO MORFIN MARKETING E[employer]ECTIVENESS MANAGER CT of abdomen and pelvis without contrast Active 02/13/17 MAGNO MORFIN NP Computed tomography of brain without radiopaque contrast Active 04/04/17 UVALDO TERRY MARKETING EFFECTIVENESS MANAGER US abdomen complete Active 04/05/17 UVALDO TERRY MARKETING EFFECTIVENESS MANAGER X-ray of chest, single view Active 04/16/17 [...] Discharge/Depart Date Attending Provider Departed Emergency Room [facility] 09/14/17 3:26pm 7:10pm SAM BLACK MD Discharged Inpatient [facility] 09/11/17 3:25pm 09/13/17 2:35pm JOHN BAHENA MD Discharged Inpatient (obs) [facility] 09/08/17 10:41pm 4:47pm JOHN BAHENA MD [...] BAHENA MD Discharged Inpatient [facility] 01/02/17 12:31am 5:19pm JOHN BAHENA MD Discharged Inpatient [facility] 12/16/16 6:45pm 12/20/16 6:47pm JOHN BAHENA MD
[2017-09-16] MEDS ORDERED: HYDROMORPHONE 1MG/1ML INJ IV STA (12:19)
[2017-09-16] MEDS ORDERED: MORPHINE SULFATE 2 MG/ML SYR IV STA (12:23)
[2017-09-16] MEDS ORDERED: PROMETHAZINE 12.5MG/ NACL 0.9% 12.5 MG/50 ML BAG IV ONE (12:30)
[2017-09-16] MEDS ORDERED: DIPHENHYDRAMINE HCL INJ 50 MG/ML VIAL IV PRN (12:30)
[2017-09-16 12:54] LABS: BASOPHILS % 0.4 % (0.0-1.0); EOSINOPHILS # (AUTO) 0.2 (0.0-0.4); EOSINOPHILS % 3.3 % (0.0-6.0); HEMOGLOBIN 9.7 g/dL (12.0-16.0); MEAN CORPUSCULAR HEMOGLOBIN 27.4 pg (28-32); MEAN CORPUSCULAR HGB CONC 30.3 g/dL (31-35); MEAN CORPUSCULAR VOLUME 90.4 fL (81-99); MONOCYTES # (AUTO) 0.3 (0.2-0.8); MONOCYTES % 6.5 % (4.4-11.3); NEUTROPHILS # (AUTO) 3.5 (2.1-6.9); NEUTROPHILS % 69.4 % (38.7-80.0); PLATELET COUNT 173 x10e3/uL (140-360); RED BLOOD COUNT 3.54 x10e6/uL (3.6-5.1); RED CELL DISTRIBUTION WIDTH 15.3 % (11.7-14.4)
[2017-09-16 13:15] LABS: ALBUMIN 2.9 g/dL (3.5-5.0); ALBUMIN/GLOBULIN RATIO 0.7 (0.8-2.0); ANION GAP 14.5 mmol/L (8-16); CALCIUM 8.7 mg/dL (8.4-10.2); CREATININE, SERUM 4.37 mg/dL (0.57-1.11); POTASSIUM 4.5 mmol/L (3.5-5.1)
[2017-09-16] MEDS ORDERED: HEPARIN SOD (PORCINE) 1000 UNIT/ML SDV ONE (14:06)
[2017-09-16 14:21] VITALS: BP 119/94
== END 2017-09-16 14:24 | disposition home or self-care (01) ==
LOC: ER 11:24
DX: R10.30 Lower abdominal pain, unspecified (principal); R11.2 Nausea with vomiting, unspecified; R19.7 Diarrhea, unspecified; K52.9 Noninfective gastroenteritis and colitis, unspecified; I12.0 Hypertensive chronic kidney disease with stage 5 chronic kidney disease or end stage renal disease; N18.6 End stage renal disease; Z99.2 Dependence on renal dialysis
CPT/HCPCS: 36415; 80053; 83690; 83735; 85025; 99283; J1200; J1644; J2270; J2550

== ENCOUNTER 2017-10-23 13:47 | Emergency (ER) | payer OTHER ==
[~2017-10-23] VITALS: Ht 160 cm; Wt 61.2 kg
[2017-10-23] MEDS ORDERED: ACETAMINOPHEN 325 MG TAB PO ONE (14:15)
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
[2017-10-23] MEDS ORDERED: METOCLOPRAMIDE HCL 10MG/10ML UDC GT ONE (16:45)
[2017-10-23 16:58] LABS: ANION GAP 16.7 mmol/L (8-16); CALCIUM 8.8 mg/dL (8.4-10.2); CREATININE, SERUM 3.52 mg/dL (0.57-1.11); POTASSIUM 3.7 mmol/L (3.5-5.1)
[2017-10-23] MEDS: CYCLOBENZAPRINE HCL 10 MG TAB PO ONE ×2 (17:04→17:35)
[2017-10-23] MEDS ORDERED: CYCLOBENZAPRINE HCL 10 MG TAB ONE (17:28)
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
[2017-10-23 17:50] VITALS: BP 142/91
[2017-10-23] MEDS ORDERED: ACETAMINOPHEN 325 MG/10 ML UDC GT ONE (18:00)
== END 2017-10-23 17:42 | disposition home or self-care (01) ==
LOC: ER 13:47
DX: M54.2 Cervicalgia (principal); R07.89 Other chest pain; M54.5 Low back pain; V43.62XA Car passenger injured in collision with other type car in traffic accident, initial encounter; Y92.488 Other paved roadways as the place of occurrence of the external cause; I10 Essential (primary) hypertension; N28.9 Disorder of kidney and ureter, unspecified; G89.29 Other chronic pain
CPT/HCPCS: 36415; 71101; 72050; 72100; 80048; 81025; 99283

== ENCOUNTER 2017-11-23 00:35 | Emergency (ER) | payer OTHER ==
[~2017-11-23] VITALS: Ht 160 cm; Wt 61.2 kg
== END 2017-11-23 01:00 | disposition left against medical advice (07) ==
LOC: ER 00:35
DX: M79.602 Pain in left arm (principal)
CPT/HCPCS: 36415; 82948

== ENCOUNTER 2017-11-23 14:58 | Emergency (ER) | payer OTHER ==
[~2017-11-23] VITALS: Ht 160 cm; Wt 61.2 kg
[2017-11-23] MEDS ORDERED: SODIUM CHLORIDE 0.9% 1000ML 1,000 ML IV STA (16:27)
[2017-11-23] MEDS ORDERED: PROMETHAZINE 12.5MG/ NACL 0.9% 12.5 MG/50 ML BAG IV NR (16:30)
[2017-11-23] MEDS ORDERED: PROMETHAZINE HCL (IM) 25 MG/ML VIAL IM NR (16:30)
[2017-11-23] MEDS ORDERED: ACETAMINOPHEN 1000 MG/100 ML IV STA (17:25)
[2017-11-23 17:44] LABS: BASOPHILS % 0.3 % (0.0-1.0); EOSINOPHILS # (AUTO) 0.1 (0.0-0.4); EOSINOPHILS % 0.7 % (0.0-6.0); HEMATOCRIT 26.1 % (34.2-44.1); LYMPHOCYTES # (AUTO) 0.8 (1.0-3.2); LYMPHOCYTES % 11.3 % (18.0-39.1); MEAN CORPUSCULAR HEMOGLOBIN 27.2 pg (28-32); MEAN CORPUSCULAR HGB CONC 30.7 g/dL (31-35); MEAN CORPUSCULAR VOLUME 88.8 fL (81-99); MONOCYTES # (AUTO) 0.5 (0.2-0.8); MONOCYTES % 6.4 % (4.4-11.3); NEUTROPHILS # (AUTO) 5.7 (2.1-6.9); NEUTROPHILS % 80.7 % (38.7-80.0); PLATELET COUNT 244 x10e3/uL (140-360); RED BLOOD COUNT 2.94 x10e6/uL (3.6-5.1); RED CELL DISTRIBUTION WIDTH 17.3 % (11.7-14.4)
--- NOTE | 2017-11-23 17:57 | Diagnostic Imaging Report ---
Examination: Single AP view of the chest. COMPARISON: 09/12/2017. INDICATION: Pain. Vomiting. DISCUSSION: Lines/tubes: Left Chest Port-A-Cath with distal tip projected on the right atrium. Right sided dialysis catheter with distal tips projected on the right atrium, unchanged. Similarly ICD projected on the left hemithorax, unchanged. Lungs: Bilateral suboptimal inspiration with pulmonary venous congestion and mild alveolar pulmonary edema. Pleura: There is no pneumothorax. Small left pleural effusion. Heart and mediastinum: The cardiac silhouette is enlarged. Bones and soft tissues: No acute bony abnormalities. Degenerative changes in the thoracic spine. IMPRESSION: 1. Bilateral pulmonary venous congestion and mild alveolar pulmonary edema. Signed by: Dr. Blaze Marshall M.D. on 11/23/2017 5:54 PM
[2017-11-23 18:07] LABS: ALANINE AMINOTRANSFERASE 7 IU/L (0-55); ALBUMIN 1.9 g/dL (3.5-5.0); ALBUMIN/GLOBULIN RATIO 0.4 (0.8-2.0); ALKALINE PHOSPHATASE 105 IU/L (40-150); AMYLASE 32 U/L (25-125); ANION GAP 14.4 mmol/L (8-16); BLOOD UREA NITROGEN 16 mg/dL (7-26); BUN/CREATININE RATIO 6 (6-25); CALCIUM 8.1 mg/dL (8.4-10.2); CARBON DIOXIDE 24 mmol/L (22-29); CHLORIDE 99 mmol/L (98-107); CREATINE KINASE 65 IU/L (29-168); CREATININE, SERUM 2.68 mg/dL (0.57-1.11); EST GLOMERULAR FILTRATION RATE 25 ML/MIN (60-); GLUCOSE 295 mg/dL (74-118); LIPASE 16 U/L (8-78); MAGNESIUM 1.6 MG/DL (1.3-2.1); POTASSIUM 3.4 mmol/L (3.5-5.1); SODIUM 134 mmol/L (136-145)
[2017-11-23] MEDS ORDERED: PANTOPRAZOLE 40 MG 10ML VIAL IV STA (18:30)
[2017-11-23] MEDS ORDERED: DONNATAL/LIDOCAINE/MAALOX 30 ML SUSP PO NR (18:30)
[2017-11-23] MEDS ORDERED: PANTOPRAZOLE 40 MG 10ML VIAL IV NR (18:45)
== END 2017-11-23 19:04 | disposition home or self-care (01) ==
LOC: ER 14:58
DX: R11.2 Nausea with vomiting, unspecified (principal); K21.0 Gastro-esophageal reflux disease with esophagitis
CPT/HCPCS: 36415; 71045; 80053; 82150; 82550; 82553; 83605; 83690; 83735; 84484; 84702; 85025; 99284; J2550; J7030

== ENCOUNTER 2018-02-23 15:47 | Emergency (ER) | payer MEDICARE, OTHER ==
[~2018-02-23] VITALS: Ht 160 cm; Wt 61.2 kg
--- OUTSIDE RECORDS SUMMARY | 2018-02-23 15:52 | XMS REPORT | Clinical Summary ---
Author Author [facility] Organization [facility] Address Unknown Phone Unavailable Care Team Providers Care Bungy Jump Master Name Role Phone Ger Mukherjee MD PCP Allergies Comments Active Allergy Reactions Severity Noted Date Naproxen Sodium GI 12/28/2017 Intolerance Aspirin Swelling 12/28/2017 Dicyclomine Hives 12/28/2017 Hydromorphone Swelling 12/28/2017 Hydrocodone Swelling 12/28/2017 Ibuprofen GI 12/28/2017 Intolerance Latex Swelling 12/28/2017 Penicillins Swelling 12/28/2017 Metoclopramide Hcl Hives 12/28/2017 Ketorolac Hives 12/28/2017 Tramadol Hives 12/28/2017 Acetaminophen GI 12/28/2017 Intolerance Ondansetron Hcl Hives 12/28/2017 Medications End Date Status Medication Sig Dispensed Refills Start Date Active morPHINE (MS CONTIN) 30 Take 30 mg by 0 MG 12 hr tablet mouth 2 (two) times a day. Active pantoprazole (PROTONIX) Take 40 mg by 0 40 MG EC tablet mouth daily. Active phenytoin (DILANTIN) 100 Take 100 mg 0 MG ER capsule by mouth every 12 (twelve) hours. Active levETIRAcetam (KEPPRA) Take 500 mg 0 500 MG tablet by mouth every 12 (twelve) hours. Active diphenhydrAMINE Take 25 mg by 0 (BENADRYL) 25 mg tablet mouth 4 (four) times a day as needed. Active meclizine (ANTIVERT) 25 Take 25 mg by 0 mg tablet mouth as needed for dizziness. Active sucralfate (CARAFATE) 1 Take 1 g by 0 gram tablet mouth every 6 (six) hours. Active nystatin (MYCOSTATIN) Apply 0 100,000 unit/gram powder topically as needed. Active fluticasone (FLONASE) 50 1 spray by 0 mcg/actuation nasal spray Each Nare route 2 (two) times a day. Active docusate sodium (COLACE) Take 100 mg 0 100 MG capsule by mouth daily as needed. Active ipratropium-albuterol Take 0.5 mg 0 (DUO-NEB) 0.5-2.5 mg/mL by nebulizer nebulization as needed for wheezing. Active furosemide (LASIX) 40 mg Take 40 mg by 0 tablet mouth daily. Daily on Non dialysis days (Saturday, , Saturday, Saturday) 02/18/2019 Active carvedilol (COREG) 25 MG Take 1 tablet 60 tablet 0 tablet (25 mg total) 8 by mouth 2 (two) times a day with meals. 02/25/2018 Active clonAZEPAM (KlonoPIN) 0.5 Take 1 tablet 14 tablet 0 MG tablet (0.5 mg 8 total) by mouth 2 (two) times a day as needed for seizures for up to 7 days. 02/25/2018 Active promethazine (PHENERGAN) Take 1 tablet 28 tablet 0 25 MG tablet (25 mg total) 8 by mouth every 6 (six) hours as needed for nausea or vomiting for up to 7 days. 05/20/2018 Active cinacalcet (SENSIPAR) 30 Take 1 tablet 30 tablet 0 MG tablet (30 mg total) 8 by mouth daily for 90 days. 02/19/2019 Active insulin GLARGINE (LANTUS) Inject 7 10 mL 11 100 unit/mL injection Units under 8 (vial) the skin daily before breakfast. 02/19/2019 Active clopidogrel (PLAVIX) 75 Take 1 tablet 30 tablet 0 mg tablet (75 mg total) 8 by mouth daily. 03/20/2018 Active baclofen 5 mg tablet Take 5 mg by 21 tablet 0 mouth 3 8 (three) times a day for 30 days. Active methocarbamol (ROBAXIN) Take 1 tablet 40 tablet 0 500 MG tablet (500 mg 8 total) by mouth every 6 (six) hours. 03/12/2018 Active minocycline Take 1 44 capsule 0 11/06/201 (MINOCIN,DYNACIN) 100 MG capsule (100 8 capsule mg total) by mouth every 12 (twelve) hours for 22 days. 03/12/2018 Active vancomycin (VANCOCIN) Infuse 1,000 1 each 0 IVPB 1 gram ADD-[place] mg into a 8 in 100 mLIndications: venous Give on mondays, catheter wednesdays, and fridays every other after dialysis day for 22 days. 03/20/2018 Active B complex-vitamin C-folic Take 1 tablet 30 tablet 0 acid (FOLBEE PLUS 5 MG) 5 by mouth 8 mg tablet per tablet daily for 30 days. 02/19/2019 Active losartan (COZAAR) 50 MG Take 1 tablet 30 tablet 0 tablet (50 mg total) 8 by mouth daily. 02/18/2018 Discontinued carvedilol (COREG) 25 MG Take 25 mg by 0 tablet mouth 2 (two) times a day with meals. 01/03/2018 Discontinued clonAZEPAM (KlonoPIN) 0.5 Take 0.5 mg 0 MG tablet by mouth 3 (three) times a day as needed for seizures. 02/18/2018 Discontinued LORAZepam (ATIVAN) 2 MG Take 2 mg by 0 tablet mouth 3 (three) times a day as needed. 02/18/2018 Discontinued promethazine (PHENERGAN) Take 25 mg by 0 25 MG tablet mouth every 6 (six) hours. 01/03/2018 Discontinued metoclopramide (REGLAN) Take 10 mg by 0 10 MG tablet mouth 4 (four) times a day. 02/18/2018 Discontinued methocarbamol (ROBAXIN) Take 500 mg 0 500 MG tablet by mouth every 6 (six) hours. 01/03/2018 Discontinued loratadine (CLARITIN) 10 Take 10 mg by 0 mg tablet mouth daily. 01/03/2018 Discontinued furosemide (LASIX) 40 mg Take 40 mg by 0 tablet mouth daily. 02/18/2018 Discontinued zolpidem (AMBIEN) 10 mg Take 10 mg by 0 tablet mouth nightly. 12/31/2017 Discontinued B complex-vitamin C-folic Take 325 0 acid (FOLBEE PLUS 5 MG) 5 tablets by mg tablet per tablet mouth daily. 01/03/2018 Discontinued lidocaine/maalox (GI Take 40 mL by 0 COCKTAIL) 35 ml mouth as suspension suspension needed. 12/31/2017 Discontinued albuterol sulfate Take 63 mg by 0 (PROVENTIL) 2.5 mg/0.5 mL nebulization solution for nebulization as needed for wheezing. 01/03/2018 Discontinued insulin GLARGINE (LANTUS) Inject 7 0 100 unit/mL injection Units under (vial) the skin every morning. 02/18/2018 Discontinued insulin 70/30 NPH and Inject 100 0 regular human (HumuLIN Units under 70/30) 100 unit/mL the skin. (70-30) injection 02/18/2018 Discontinued NON FORMULARY 50 mg daily. 0 Losartan potassium 02/18/2018 Discontinued darbepoetin Inject 0.5 mL 2 mL 0 karen-polysorbate (100 mcg 8 (ARANESP) 100 mcg/0.5 mL total) under syringeIndications: ESRD the skin once on Dialysis a week at 4pm for 30 days. 02/18/2018 Discontinued albuterol sulfate Take 0.5 mL 0 (PROVENTIL) 2.5 mg/0.5 mL (2.5 mg 8 solution for nebulization total) by nebulization as needed for wheezing for up to 30 days. 02/18/2018 Discontinued B complex-vitamin C-folic Take 1 tablet 30 tablet 0 acid (FOLBEE PLUS 5 MG) 5 by mouth 8 mg tablet per tablet daily for 30 days. 02/18/2018 Discontinued temazepam (RESTORIL) 15 Take 10 mg by 0 mg capsule mouth nightly as needed for sleep. 02/18/2018 Discontinued baclofen (LIORESAL) 10 MG Take 5 mg by 0 tablet mouth 3 (three) times a day. 02/18/2018 Discontinued cinacalcet (SENSIPAR) 30 Take 30 mg by 0 MG tablet mouth daily. Active Problems Problem Noted Date Chest pain 01/27/2018 Heart failure 12/30/2017 Acute on chronic systolic CHF (congestive heart failure) 12/29/2017 Colitis 12/29/2017 Pulmonary edema 12/29/2017 Anxiety 12/29/2017 Anemia of chronic disease 12/29/2017 Hypokalemia 12/28/2017 Tachycardia 12/28/2017 Encounters Care Team Description Date Type Specialty Kourtney Sanchez MD Weakness (Primary Dx); ESRD (end stage renal disease) (HCC) 02/19/2018 Emergency Emergency Medicine - 02/20/2018 Roge Pederson NP-C Chronic combined systolic and diastolic congestive heart failure (HCC) (Primary Dx) 01/31/2018 Orders Only Transplant Karolina Ren 01/30/2018 Documentation Cardiology Kristopher Amaya, Reginald Angulo MD High anion gap metabolic acidosis (Primary Dx); Anemia, unspecified type; Chest pain, unspecified type; Elevated brain natriuretic peptide (BNP) level 01/26/2018 [facility] General Internal Medicine - Encounter 02/18/2018 Roge Pederson NP-C Chronic systolic heart failure (Primary Dx) 01/02/2018 Orders Only Transplant Varun Clark MD Zindani, Shireen, MD Tachycardia (Primary Dx); Generalized abdominal pain; Nausea vomiting and diarrhea; Chest pain, unspecified type; Shortness of breath; Chronic systolic congestive heart failure; Chronic hypertension; Type 2 diabetes mellitus with other specified complication, without long-term current use of insulin; Hypoglycemia; Hypokalemia; Chronic kidney disease, unspecified CKD stage; Leg swelling; Anxiety 12/27/2017 [facility] General Internal Medicine - Encounter 01/03/2018 after 02/22/2017 Immunizations Name Dates Previously Given Next Due FLUCELVAX QUAD PF (0.5mL 02/16/2018 syringe) Social History Date Tobacco Use Types Packs/Day Years Used Never Smoker Smokeless Tobacco: Never Used Alcohol Use Drinks/Week oz/Week Comments No Sex Assigned at Date Recorded Not on file Industry Job Start Date Occupation Not on file Not on file Not on file Travel End Travel History Travel Start No recent travel history available. Last Filed Vital Signs Time Taken Vital Sign Reading 02/20/2018 2:16 AM [facility] Blood Pressure 130/73 02/20/2018 2:16 AM [facility] Pulse 97 02/19/2018 8:39 PM [facility] Temperature 36.5 C (97.7 F) 02/20/2018 2:16 AM [facility]DER Respiratory Rate 18 02/20/2018 2:16 AM [facility]DER Oxygen Saturation 98% - Inhaled Oxygen - Concentration 01/31/2018 11:01 AM CDT Weight 67.5 kg (148 lb 14.4 oz) 02/19/2018 8:52 PM [facility] Height 160 cm (5' 3") 01/31/2018 11:01 AM CDT Body Mass Index 26.38 Plan of Treatment Care Team Description Date Type Specialty Stacie Foster MD [id number] [facility] [address] [place] [id number] 02/26/2018 Appointment Transplant 02/26/2018 Office Visit Cardiology Health Maintenance Due Date Last Done Comments DIABETIC RETINAL EYE EXAM 1987 DIABETIC FOOT EXAM 11/10/1997 URINE MICROALBUMIN 11/10/1997 CERVICAL CANCER SCREENING 11/10/2008 INFLUENZA VACCINE Completed 02/16/2018 Implants Device Identifier Shelf Expiration Date Model / Serial / Lot Implanted Type Area Manufactur er Defibrillators & Leads Defibrilla tors & Leads 10/12/2020 CS [id number] IM / / [id number] Set Cathztn Hmodial Lngtrm Accs Surgical N/A: N/A ARROW 15fr 24cm Edge Simplicity - Implants; [employer] [id number] Expanders; [employer] Implanted: 01/02/2018 (Quantity not Extenders; on file) Surgical Wires Procedures Comments Procedure Name Priority Date/Time Associated Diagnosis CT LUMBAR SPINE WO STAT 02/20/2018 CONTRAST 1:[address] HEAD WO CONTRAST STAT 02/20/2018 12:56 AM [facility] XR CHEST 1 VW PORTABLE STAT 02/20/2018 12:02 AM [facility] HCG QUALITATIVE, SERUM STAT 02/19/2018 SCREEN 11:45 PM [facility]DER PROTHROMBIN TIME WITH INR STAT 02/19/2018 10:39 PM [facility] PARTIAL THROMBOPLASTIN STAT 02/19/2018 TIME (PTT) 10:39 PM [facility] CREATINE KINASE, TOTAL STAT 02/19/2018 (CPK) 10:39 PM [facility]DER ESTIMATED GFR STAT 02/19/2018 10:39 PM [facility] B NATRIURETIC PEPTIDE STAT 02/19/2018 10:39 PM [facility] TROPONIN STAT 02/19/2018 10:39 PM [facility] BETA HYDROXYBUTYRATE STAT 02/19/2018 10:39 PM [facility] COMPREHENSIVE METABOLIC STAT 02/19/2018 PANEL 10:39 PM [facility] HC COMPLETE BLD COUNT STAT 02/19/2018 W/AUTO DIFF 10:39 PM [facility]DER ECG ED PRELIMINARY Routine 02/19/2018 INTERPRETATION 9:56 PM [facility] POC GLUCOSE Routine 02/19/2018 9:36 PM [facility] ECG 12-LEAD STAT 02/19/2018 9:07 PM [facility] POC GLUCOSE Routine 02/18/2018 1:46 PM [facility] POC GLUCOSE Routine 02/18/2018 12:19 PM [facility] POC GLUCOSE Routine 02/18/2018 7:44 AM [facility] POC GLUCOSE Routine 02/18/2018 7:03 AM [facility] POC GLUCOSE Routine 02/18/2018 1:28 AM [facility] POC GLUCOSE Routine 02/17/2018 9:13 PM [facility] M[facility]DER POC GLUCOSE Routine 02/17/2018 5:37 PM [facility] ULTRAFILTRATION Routine 02/17/2018 5:07 PM [facility]DER POC GLUCOSE Routine 02/17/2018 3:38 PM [facility] M[facility]DER POC GLUCOSE Routine 02/17/2018 1:24 PM [facility]DER POC GLUCOSE Routine 02/17/2018 12:14 PM [facility] M[facility]DER POC GLUCOSE Routine 02/17/2018 9:43 AM [facility] M[facility]DER POC GLUCOSE Routine 02/17/2018 8:01 AM [facility] SMEAR REVIEW Routine 02/17/2018 4:30 AM [facility] HC COMPLETE BLD COUNT Routine 02/17/2018 W/AUTO DIFF 4:30 AM [facility]DER POC GLUCOSE Routine 02/17/2018 4:14 AM [facility] ESTIMATED GFR Routine 02/17/2018 4:00 AM [facility]DER BASIC METABOLIC PANEL Routine 02/17/2018 4:00 AM [facility]DER POC GLUCOSE Routine 02/16/2018 11:06 PM [facility] M[facility]DER POC GLUCOSE Routine 02/16/2018 8:45 PM [facility] M[facility]DER POC GLUCOSE Routine 02/16/2018 6:20 PM [facility] M[facility]DER POC GLUCOSE Routine 02/16/2018 5:35 PM [facility]DER HEMODIALYSIS Routine 02/16/2018 2:21 PM [facility]DER POC GLUCOSE Routine 02/16/2018 1:37 PM [facility]DER POC GLUCOSE Routine 02/16/2018 12:29 PM DEC[facility] MOLDER POC GLUCOSE Routine 02/16/2018 7:57 AM [facility]DER POC GLUCOSE Routine 02/15/2018 9:54 PM CDT POC GLUCOSE Routine 02/15/2018 4:54 PM CDT POC GLUCOSE Routine 02/15/2018 4:13 PM CDT ULTRAFILTRATION Routine 02/15/2018 2:29 PM CDT POC GLUCOSE Routine 02/15/2018 2:14 PM CDT POC GLUCOSE Routine 02/15/2018 10:52 AM CDT POC GLUCOSE Routine 02/15/2018 7:33 AM CDT POC GLUCOSE Routine 02/15/2018 12:04 AM CDT POC GLUCOSE Routine 02/14/2018 11:19 PM CDT POC GLUCOSE Routine 02/14/2018 11:16 PM CDT POC GLUCOSE Routine 02/14/2018 10:19 PM CDT POC GLUCOSE Routine 02/14/2018 10:[address] ANGIOGRAM PE CHEST Routine 02/14/2018 6:51 PM CDT POC GLUCOSE Routine 02/14/2018 12:29 PM CDT ESTIMATED GFR Routine 02/14/2018 12:00 PM CDT MAGNESIUM LEVEL Routine 02/14/2018 12:00 PM CDT BASIC METABOLIC PANEL Routine 02/14/2018 12:00 PM CDT POC GLUCOSE Routine 02/14/2018 8:26 AM CDT POC GLUCOSE Routine 02/14/2018 8:24 AM CDT POC GLUCOSE Routine 02/14/2018 7:02 AM CDT POC GLUCOSE Routine 02/13/2018 9:28 PM CDT POC GLUCOSE Routine 02/13/2018 5:37 PM CDT HEMODIALYSIS Routine 02/13/2018 3:27 PM CDT POC GLUCOSE Routine 02/13/2018 12:04 PM CDT POC GLUCOSE Routine 02/13/2018 9:38 AM CDT POC GLUCOSE Routine 02/13/2018 6:18 AM CDT HC COMPLETE BLD COUNT Routine 02/13/2018 W/AUTO DIFF 6:10 AM CDT ESTIMATED GFR Routine 02/13/2018 4:00 AM CDT BASIC METABOLIC PANEL Routine 02/13/2018 4:00 AM CDT POC GLUCOSE Routine 02/12/2018 10:39 PM CDT POC GLUCOSE Routine 02/12/2018 6:50 PM CDT POC GLUCOSE Routine 02/12/2018 11:33 AM CDT POC GLUCOSE Routine 02/12/2018 7:55 AM CDT POC GLUCOSE Routine 02/11/2018 9:40 PM CDT POC GLUCOSE Routine 02/11/2018 8:34 PM CDT POC GLUCOSE Routine 02/11/2018 6:45 PM CDT HEMODIALYSIS Routine 02/11/2018 5:31 PM CDT POC GLUCOSE Routine 02/11/2018 5:15 PM CDT HEMODIALYSIS Routine 02/11/2018 2:49 PM CDT POC GLUCOSE Routine 02/11/2018 12:07 PM CDT POC GLUCOSE Routine 02/11/2018 8:06 AM CDT POC GLUCOSE Routine 02/11/2018 6:37 AM CDT POC GLUCOSE Routine 02/10/2018 9:33 PM CDT POC GLUCOSE Routine 02/10/2018 6:38 PM CDT POC GLUCOSE Routine 02/10/2018 5:01 PM CDT HEMODIALYSIS Routine 02/10/2018 3:14 PM CDT POC GLUCOSE Routine 02/10/2018 1:48 PM CDT POC GLUCOSE Routine 02/10/2018 11:38 AM CDT POC GLUCOSE Routine 02/10/2018 7:25 AM CDT ESTIMATED GFR Routine 02/10/2018 4:56 AM CDT FREE PHENYTOIN LEVEL Routine 02/10/2018 4:56 AM CDT PHENYTOIN LEVEL Routine 02/10/2018 4:56 AM CDT PHOSPHORUS LEVEL Routine 02/10/2018 4:56 AM CDT MAGNESIUM LEVEL Routine 02/10/2018 4:56 AM CDT HC COMPLETE BLD COUNT Routine 02/10/2018 W/AUTO DIFF 4:56 AM CDT BASIC METABOLIC PANEL Routine 02/10/2018 4:56 AM CDT POC GLUCOSE Routine 02/09/2018 10:55 PM CDT POC GLUCOSE Routine 02/09/2018 9:48 PM CDT POC GLUCOSE Routine 02/09/2018 5:25 PM CDT POC GLUCOSE Routine 02/09/2018 11:42 AM CDT CONSULT TO OSTOMY CARE Routine 02/09/2018 NURSE 10:54 AM CDT POC GLUCOSE Routine 02/09/2018 8:06 AM CDT POC GLUCOSE Routine 02/09/2018 4:28 AM CDT POC GLUCOSE Routine 02/08/2018 9:05 PM CDT POC GLUCOSE Routine 02/08/2018 5:04 PM CDT POC GLUCOSE Routine 02/08/2018 4:33 PM CDT SEDIMENTATION RATE Routine 02/08/2018 3:30 PM CDT C-REACTIVE PROTEIN Routine 02/08/2018 11:54 AM CDT POC GLUCOSE Routine 02/08/2018 11:47 AM CDT POC GLUCOSE Routine 02/08/2018 7:24 AM CDT POC GLUCOSE Routine 02/07/2018 10:36 PM CDT POC GLUCOSE Routine 02/07/2018 6:10 PM CDT POC GLUCOSE Routine 02/07/2018 12:58 PM CDT MRI SHOULDER WO CONTRAST Routine 02/07/2018 LEFT 12:50 PM CDT MRI CERVICAL SPINE WO Routine 02/07/2018 CONTRAST 12:20 PM CDT MRI BRAIN WO CONTRAST Routine 02/07/2018 11:50 AM CDT POC GLUCOSE Routine 02/07/2018 7:41 AM CDT HC COMPLETE BLD COUNT Routine 02/07/2018 W/AUTO DIFF 5:00 AM CDT POC GLUCOSE Routine 02/06/2018 9:16 PM CDT POC GLUCOSE Routine 02/06/2018 5:03 PM CDT HEMODIALYSIS Routine 02/06/2018 3:19 PM CDT POC GLUCOSE Routine 02/06/2018 2:39 PM CDT ULTRAFILTRATION Routine 02/06/2018 1:03 PM CDT POC GLUCOSE Routine 02/06/2018 12:16 PM CDT POC GLUCOSE Routine 02/06/2018 8:01 AM CDT POC GLUCOSE Routine 02/05/2018 10:16 PM CDT POC GLUCOSE Routine 02/05/2018 7:14 PM CDT ESTIMATED GFR STAT 02/05/2018 2:30 PM CDT BASIC METABOLIC PANEL STAT 02/05/2018 2:30 PM CDT HC COMPLETE BLD COUNT STAT 02/05/2018 W/AUTO DIFF 2:30 PM CDT NM BONE SCAN 3 PHASE Routine 02/05/2018 1:20 PM CDT POC GLUCOSE Routine 02/05/2018 12:10 PM CDT POC GLUCOSE Routine 02/05/2018 8:41 AM CDT POC GLUCOSE Routine 02/05/2018 5:38 AM CDT POC GLUCOSE Routine 02/04/2018 10:15 PM CDT POC GLUCOSE Routine 02/04/2018 5:23 PM CDT HEMODIALYSIS Routine 02/04/2018 1:46 PM CDT POC GLUCOSE Routine 02/04/2018 11:51 AM CDT CBC HEMOGRAM Routine 02/04/2018 11:30 AM CDT POC GLUCOSE Routine 02/04/2018 7:47 AM CDT POC GLUCOSE Routine 02/03/2018 11:04 PM CDT POC GLUCOSE Routine 02/03/2018 9:39 PM CDT POC GLUCOSE Routine 02/03/2018 5:51 PM CDT POC GLUCOSE Routine 02/03/2018 4:07 PM CDT POC GLUCOSE Routine 02/03/2018 1:39 PM CDT POC GLUCOSE Routine 02/03/2018 1:19 PM CDT ESTIMATED GFR STAT 02/03/2018 12:44 PM CDT BASIC METABOLIC PANEL STAT 02/03/2018 12:44 PM CDT POC GLUCOSE Routine 02/03/2018 12:15 PM CDT POC GLUCOSE Routine 02/03/2018 7:51 AM CDT POC GLUCOSE Routine 02/03/2018 6:48 AM CDT POC GLUCOSE Routine 02/03/2018 5:45 AM CDT POC GLUCOSE Routine 02/02/2018 11:22 PM CDT POC GLUCOSE Routine 02/02/2018 10:05 PM CDT POC GLUCOSE Routine 02/02/2018 5:21 PM CDT URINE DRUGS OF ABUSE Routine 02/02/2018 SCREEN 1:41 PM CDT URINALYSIS, AUTOMATED Routine 02/02/2018 WITH MICROSCOPY 1:41 PM CDT POC GLUCOSE Routine 02/02/2018 12:22 PM CDT POC GLUCOSE Routine 02/02/2018 9:04 AM CDT HEMODIALYSIS Routine 02/02/2018 12:05 AM CDT POC GLUCOSE Routine 02/01/2018 10:25 PM CDT POC GLUCOSE Routine 02/01/2018 9:49 PM CDT POC GLUCOSE Routine 02/01/2018 4:57 PM CDT POC GLUCOSE Routine 02/01/2018 12:14 PM CDT POC GLUCOSE Routine 02/01/2018 9:10 AM CDT POC GLUCOSE Routine 02/01/2018 8:27 AM CDT HC COMPLETE BLD COUNT Routine 02/01/2018 W/AUTO DIFF 5:41 AM CDT ESTIMATED GFR Routine 02/01/2018 4:00 AM CDT PHOSPHORUS LEVEL Routine 02/01/2018 4:00 AM CDT MAGNESIUM LEVEL Routine 02/01/2018 4:00 AM CDT BASIC METABOLIC PANEL Routine 02/01/2018 4:00 AM CDT POC GLUCOSE Routine 01/31/2018 9:55 PM CDT XR ABDOMEN 1 VW PORTABLE Routine 01/31/2018 8:11 PM CDT PHENYTOIN LEVEL Routine 01/31/2018 8:09 PM CDT POC GLUCOSE Routine 01/31/2018 6:22 PM CDT POC GLUCOSE Routine 01/31/2018 5:38 PM CDT EEG AWAKE/ASLEEP LESS STAT 01/31/2018 THAN 41 MIN 1:55 PM CDT POC GLUCOSE Routine 01/31/2018 12:[address] STROKE BRAIN WO STAT 01/31/2018 CONTRAST 11:59 AM CDT HEMODIALYSIS Routine 01/31/2018 11:39 AM CDT POC GLUCOSE Routine 01/31/2018 10:06 AM CDT POC GLUCOSE Routine 01/31/2018 9:43 AM CDT POC GLUCOSE Routine 01/31/2018 9:25 AM CDT XR CHEST 1 VW PORTABLE STAT 01/31/2018 9:18 AM CDT POC GLUCOSE Routine 01/31/2018 9:04 AM CDT ARTERIAL BLOOD GAS STAT 01/31/2018 8:23 AM CDT PHENYTOIN LEVEL STAT 01/31/2018 8:22 AM CDT MANUAL DIFFERENTIAL STAT 01/31/2018 8:22 AM CDT ESTIMATED GFR STAT 01/31/2018 8:22 AM CDT TROPONIN STAT 01/31/2018 8:22 AM CDT LACTIC ACID LEVEL STAT 01/31/2018 8:22 AM CDT COMPREHENSIVE METABOLIC STAT 01/31/2018 PANEL 8:22 AM CDT CBC WITH PLATELET AND STAT 01/31/2018 DIFFERENTIAL 8:22 AM CDT POC GLUCOSE Routine 01/31/2018 8:07 AM CDT POC GLUCOSE Routine 01/31/2018 7:59 AM CDT POC GLUCOSE Routine 01/31/2018 7:53 AM CDT POC GLUCOSE Routine 01/31/2018 7:39 AM CDT POC GLUCOSE Routine 01/31/2018 7:09 AM CDT POC GLUCOSE Routine 01/30/2018 8:26 PM CDT POC GLUCOSE Routine 01/30/2018 5:47 PM CDT POC GLUCOSE Routine 01/30/2018 11:50 AM CDT POC GLUCOSE Routine 01/30/2018 7:56 AM CDT POC GLUCOSE Routine 01/29/2018 11:48 PM CDT SEDIMENTATION RATE Routine 01/29/2018 6:14 PM CDT C-REACTIVE PROTEIN Routine 01/29/2018 6:14 PM CDT POC GLUCOSE Routine 01/29/2018 5:52 PM CDT ESTIMATED GFR Routine 01/29/2018 1:30 PM CDT BASIC METABOLIC PANEL Routine 01/29/2018 1:30 PM CDT HC COMPLETE BLD COUNT Routine 01/29/2018 W/AUTO DIFF 1:25 PM CDT POC GLUCOSE Routine 01/29/2018 1:24 PM CDT EEG AWAKE/ASLEEP LESS STAT 01/29/2018 THAN 41 MIN 12:16 PM CDT POC GLUCOSE Routine 01/29/2018 11:34 AM CDT ECHOCARDIOGRAM WITH Routine 01/29/2018 AGITATED SALINE (68431) 10:05 AM CDT POC GLUCOSE Routine 01/29/2018 7:35 AM CDT POC GLUCOSE Routine 01/28/2018 11:[address] ANGIOGRAM NECK W WO STAT 01/28/2018 CONTRAST 7:20 PM CDT LIPID PANEL Routine 01/28/2018 6:[address] UPPER EXTREMITY WO Routine 01/28/2018 LEFT 6:27 PM CDT POC GLUCOSE Routine 01/28/2018 5:[address] ANGIOGRAM HEAD W WO STAT 01/28/2018 CONTRAST 5:[address] CHEST WO CONTRAST Routine 01/28/2018 4:[address] HEAD WO CONTRAST Routine 01/28/2018 4:54 PM CDT HEMODIALYSIS Routine 01/28/2018 3:29 PM CDT POC GLUCOSE Routine 01/28/2018 12:08 PM CDT POC GLUCOSE Routine 01/28/2018 8:16 AM CDT HC COMPLETE BLD COUNT Routine 01/28/2018 W/AUTO DIFF 8:00 AM CDT KEPPRA (LEVETIRACETAM) Routine 01/28/2018 LEVEL 8:00 AM CDT POC GLUCOSE Routine 01/27/2018 11:07 PM CDT TRANSFUSE RED BLOOD CELLS STAT 01/27/2018 9:20 PM CDT HEPATITIS B SURFACE Routine 01/27/2018 ANTIGEN 6:20 PM CDT POC GLUCOSE Routine 01/27/2018 4:59 PM CDT US DUPLEX VENOUS UPPER Routine 01/27/2018 EXTREMITY LEFT 2:47 PM CDT US CAROTID DUPLEX RIGHT Routine 01/27/2018 2:28 PM CDT POC GLUCOSE Routine 01/27/2018 12:13 PM CDT HEMODIALYSIS Routine 01/27/2018 9:22 AM CDT POC GLUCOSE Routine 01/27/2018 7:51 AM CDT PHENYTOIN LEVEL Timed 01/27/2018 6:34 AM CDT LACTIC ACID LEVEL, SEPSIS Timed 01/27/2018 - NOW AND REPEAT 2X EVERY 6:34 AM CDT 3 HOURS PREPARE RBC Timed 01/27/2018 3:44 AM CDT TYPE AND SCREEN Timed 01/27/2018 3:44 AM CDT LACTIC ACID LEVEL Timed 01/27/2018 2:58 AM CDT TROPONIN Timed 01/27/2018 2:58 AM CDT XR ABDOMEN ACUTE INC STAT 01/27/2018 CHEST 1:58 AM CDT PARTIAL THROMBOPLASTIN STAT 01/27/2018 TIME (PTT) 1:08 AM CDT PROTHROMBIN TIME WITH INR STAT 01/27/2018 1:08 AM CDT HCG QUALITATIVE, SERUM STAT 01/27/2018 SCREEN 1:08 AM CDT LACTIC ACID LEVEL, SEPSIS STAT 01/27/2018 - NOW AND REPEAT 2X EVERY 1:08 AM CDT 3 HOURS B NATRIURETIC PEPTIDE STAT 01/27/2018 1:08 AM CDT ESTIMATED GFR STAT 01/27/2018 1:08 AM CDT TROPONIN STAT 01/27/2018 1:08 AM CDT COMPREHENSIVE METABOLIC STAT 01/27/2018 PANEL 1:08 AM CDT HC COMPLETE BLD COUNT STAT 01/27/2018 W/AUTO DIFF 1:08 AM CDT ECG 12-LEAD STAT 01/26/2018 11:47 PM CDT BLOOD CULTURE, AEROBIC & Routine 01/26/2018 ANAEROBIC 12:50 AM CDT POC GLUCOSE Routine 01/02/2018 9:33 PM CDT TROPONIN STAT 01/02/2018 8:47 PM CDT ECG 12-LEAD STAT 01/02/2018 8:33 PM CDT POC GLUCOSE Routine 01/02/2018 5:55 PM CDT POC GLUCOSE Routine 01/02/2018 5:41 PM CDT POC GLUCOSE Routine 01/02/2018 5:36 PM CDT POC GLUCOSE Routine 01/02/2018 5:05 PM CDT HEMODIALYSIS Routine 01/02/2018 3:09 PM CDT POC GLUCOSE Routine 01/02/2018 12:01 PM CDT IR TUNNELED DIALYSIS STAT 01/02/2018 CATHETER 9:37 AM CDT REPLACEMENT/EXCHANGE POC GLUCOSE Routine 01/02/2018 7:20 AM CDT POC GLUCOSE Routine 01/01/2018 9:30 PM CDT HEMODIALYSIS Routine 01/01/2018 5:12 PM CDT POC GLUCOSE Routine 01/01/2018 5:12 PM CDT POC GLUCOSE Routine 01/01/2018 2:33 PM CDT ESTIMATED GFR Routine 01/01/2018 1:32 PM CDT BASIC METABOLIC PANEL Routine 01/01/2018 1:32 PM CDT HC COMPLETE BLD COUNT Routine 01/01/2018 W/AUTO DIFF 1:32 PM CDT POC GLUCOSE Routine 01/01/2018 8:10 AM CDT VANCOMYCIN LEVEL, RANDOM Routine 01/01/2018 4:38 AM CDT POC GLUCOSE Routine 12/31/2017 9:48 PM CDT POC GLUCOSE Routine 12/31/2017 5:[address] HEAD WO CONTRAST STAT 12/31/2017 2:24 PM CDT POC GLUCOSE Routine 12/31/2017 11:49 AM CDT POC GLUCOSE Routine 12/31/2017 7:38 AM CDT ESTIMATED GFR Routine 12/31/2017 5:43 AM CDT BASIC METABOLIC PANEL Routine 12/31/2017 5:43 AM CDT POC GLUCOSE Routine 12/31/2017 1:52 AM CDT TRANSFUSE RED BLOOD CELLS Routine 12/30/2017 10:33 PM CDT POC GLUCOSE Routine 12/30/2017 8:48 PM CDT POC GLUCOSE Routine 12/30/2017 5:09 PM CDT PREPARE RBC Timed 12/30/2017 1:50 PM CDT PREPARE RBC Timed 12/30/2017 1:50 PM CDT TYPE AND SCREEN Timed 12/30/2017 1:50 PM CDT POC GLUCOSE Routine 12/30/2017 12:28 PM CDT HEMODIALYSIS Routine 12/30/2017 12:08 PM CDT VANCOMYCIN LEVEL, RANDOM STAT 12/30/2017 10:25 AM CDT ECHOCARDIOGRAM 2D Routine 12/30/2017 COMPLETE W MMODE SPECTRAL 9:36 AM CDT COLOR DOPPLER (62506) POC GLUCOSE Routine 12/30/2017 7:43 AM CDT ESTIMATED GFR Routine 12/30/2017 3:54 AM CDT COMPREHENSIVE METABOLIC Routine 12/30/2017 PANEL 3:54 AM CDT CBC HEMOGRAM Routine 12/30/2017 3:54 AM CDT POC GLUCOSE Routine 12/29/2017 9:17 PM CDT POC GLUCOSE Routine 12/29/2017 5:[address] UPPER EXTREMITY WO STAT 12/29/2017 LEFT 4:09 PM CDT US DUPLEX VENOUS LOWER Routine 12/29/2017 EXTREMITY BILATERAL 2:10 PM CDT US DUPLEX VENOUS UPPER Routine 12/29/2017 EXTREMITY LEFT 1:52 PM CDT POC GLUCOSE Routine 12/29/2017 12:16 PM CDT XR CHEST 1 VW PORTABLE Routine 12/29/2017 8:30 AM CDT POC GLUCOSE Routine 12/29/2017 7:22 AM CDT ESTIMATED GFR Routine 12/29/2017 4:10 AM CDT CBC HEMOGRAM Routine 12/29/2017 4:10 AM CDT B NATRIURETIC PEPTIDE Routine 12/29/2017 4:10 AM CDT COMPREHENSIVE METABOLIC Routine 12/29/2017 PANEL 4:10 AM CDT POC GLUCOSE Routine 12/28/2017 9:41 PM CDT HEPATITIS B SURFACE STAT 12/28/2017 ANTIGEN 8:24 PM CDT POC GLUCOSE Routine 12/28/2017 6:45 PM CDT XR SHOULDER 2+ VW LEFT Routine 12/28/2017 5:30 PM CDT US RENAL Routine 12/28/2017 1:35 PM CDT POC GLUCOSE Routine 12/28/2017 1:14 PM CDT ESTIMATED GFR Routine 12/28/2017 5:00 AM CDT COMPREHENSIVE METABOLIC Routine 12/28/2017 PANEL 5:00 AM CDT HEMOGLOBIN A1C Routine 12/28/2017 5:[address] ABDOMEN PELVIS W STAT 12/28/2017 CONTRAST 3:58 AM CDT URINE DRUGS OF ABUSE Routine 12/28/2017 SCREEN 3:30 AM CDT URINALYSIS SCREEN AND Routine 12/28/2017 MICROSCOPY, WITH REFLEX 3:30 AM CDT TO CULTURE GRAM STAIN Routine 12/28/2017 3:30 AM CDT URINE CULTURE Routine 12/28/2017 3:30 AM CDT ESTIMATED GFR STAT 12/28/2017 2:33 AM CDT COMPREHENSIVE METABOLIC STAT 12/28/2017 PANEL 2:33 AM CDT PROTHROMBIN TIME WITH INR STAT 12/28/2017 2:33 AM CDT PARTIAL THROMBOPLASTIN STAT 12/28/2017 TIME (PTT) 2:33 AM CDT TROPONIN Timed 12/28/2017 1:27 AM CDT ESTIMATED GFR STAT 12/28/2017 1:10 AM CDT B NATRIURETIC PEPTIDE STAT 12/28/2017 1:10 AM CDT TROPONIN STAT 12/28/2017 1:10 AM CDT COMPREHENSIVE METABOLIC STAT 12/28/2017 PANEL 1:10 AM CDT PARTIAL THROMBOPLASTIN STAT 12/28/2017 TIME (PTT) 1:10 AM CDT PROTHROMBIN TIME WITH INR STAT 12/28/2017 1:10 AM CDT HC COMPLETE BLD COUNT STAT 12/28/2017 W/AUTO DIFF 1:10 AM CDT XR CHEST 1 VW PORTABLE STAT 12/28/2017 12:14 AM CDT ECG ED PRELIMINARY Routine 12/27/2017 INTERPRETATION 11:48 PM CDT ECG 12-LEAD STAT 12/27/2017 9:43 PM CDT after 02/22/2017 Results * CT Lumbar Spine Wo Contrast (02/20/2018 1:01 AM [facility]) Narrative Performed At EXAMINATION: CT LUMBAR SPINE WO CONTRAST [facility] CLINICAL HISTORY: low back pain COMPARISON:None TECHNIQUE: Noncontrast enhanced imaging through the lumbar spine was performed with coronal and sagittal reconstructed images. CT scans are performed using radiation dose reduction techniques (iterative reconstruction and/or automated exposure control). Technical factors are evaluated and adjusted to ensure appropriate moderation of exposure. Automated dose management technology is applied to adjust radiation exposure while achieving a diagnostic quality image. FINDINGS: No acute fractures or subluxations. No soft tissue abnormalities are seen. No significant posterior disc disease, spinal canal or neural foraminal stenosis. Contrast outlines the bilateral renal collecting systems. IMPRESSION: No acute osseous abnormality of the lumbar spine. [facility]-[id number] Procedure Note Hm Interface, Radiology Results Incoming - 02/20/2018 1:10 AM DECK [facility]DER EXAMINATION: CT LUMBAR SPINE WO CONTRAST CLINICAL HISTORY: low back pain COMPARISON: None TECHNIQUE: Noncontrast enhanced imaging through the lumbar spine was performed with coronal and sagittal reconstructed images. CT scans are performed using radiation dose reduction techniques (iterative reconstruction and/or automated exposure control). Technical factors are evaluated and adjusted to ensure appropriate moderation of exposure. Automated dose management technology is applied to adjust radiation exposure while achieving a diagnostic quality image. FINDINGS: No acute fractures or subluxations. No soft tissue abnormalities are seen. No significant posterior disc disease, spinal canal or neural foraminal stenosis. Contrast outlines the bilateral renal collecting systems. IMPRESSION: No acute osseous abnormality of the lumbar spine. [id number] Performing Organization Address City/State/Zipcode Phone Number [facility] [address] [place] [address] * CT Head Wo Contrast (02/20/2018 12:56 AM DECK MOLDER) Only the most recent of 3 results within the time period is included. Narrative Performed At EXAMINATION: CT HEAD WO CONTRAST [facility] CLINICAL HISTORY: right sided tingling COMPARISON:01/31/[address] TECHNIQUE: Noncontrast enhanced images of the brain were obtained from the skull base to the vertex. Both soft tissue and bone reconstruction algorithms were performed. CT scans are performed using radiation dose reduction techniques (iterative reconstruction and/or automated exposure control). Technical factors are evaluated and adjusted to ensure appropriate moderation of exposure. Automated dose management technology is applied to adjust radiation exposure while achieving a diagnostic quality image. FINDINGS: The brain parenchyma is unremarkable. The murillo-white matter differentiation is preserved. No evidence of acute intra or extra-axial hemorrhage, mass, mass effect or acute territorial infarction. There is no acute hydrocephalus. Basal cisterns are patent. No acute soft tissue hematoma or laceration. No skull fractures or aggressive bony lesions. Paranasal sinuses and mastoid air cells are clear. Orbits are normal. IMPRESSION: No acute intracranial abnormality identified. [facility]-[id number] Procedure Note Interface, Radiology Results Incoming - 02/20/2018 1:07 AM [facility]DER EXAMINATION: CT HEAD WO CONTRAST CLINICAL HISTORY: right sided tingling COMPARISON: 01/31/[address] TECHNIQUE: Noncontrast enhanced images of the brain were obtained from the skull base to the vertex. Both soft tissue and bone reconstruction algorithms were performed. CT scans are performed using radiation dose reduction techniques (iterative reconstruction and/or automated exposure control). Technical factors are evaluated and adjusted to ensure appropriate moderation of exposure. Automated dose management technology is applied to adjust radiation exposure while achieving a diagnostic quality image. FINDINGS: The brain parenchyma is unremarkable. The murillo-white matter differentiation is preserved. No evidence of acute intra or extra-axial hemorrhage, mass, mass effect or acute territorial infarction. There is no acute hydrocephalus. Basal cisterns are patent. No acute soft tissue hematoma or laceration. No skull fractures or aggressive bony lesions. Paranasal sinuses and mastoid air cells are clear. Orbits are normal. IMPRESSION: No acute intracranial abnormality identified. [facility]-[id number] Performing Organization Address City/State/Zipcode Phone Number [facility] [address] [place] [address] * XR Chest 1 Vw Portable (02/20/2018 12:02 AM DECK MOLDER) Only the most recent of 4 results within the time period is included. Narrative Performed At Examination:XR CHEST 1 VW PORTABLE [facility] Clinical History:Shortness of breath Comparison: 01/31/2018 Technique: Single frontal view of the chest is obtained. Findings: Low lung volume with vascular crowding or congestion is noted. The heart size is in the upper limits of normal. Tip of the right central lines at the right atrium. Tip of the left Port-A-Cath is at the mid to distal SVC. No pleural effusion is seen. No pneumothorax is seen. Impression: Low lung volume with vascular crowding or congestion. [facility]-[id number] Procedure Note Interface, Radiology Results Incoming - 02/20/2018 12:08 AM DECK MOLDER Examination: XR CHEST 1 VW PORTABLE Clinical History: Shortness of breath Comparison: 01/31/2018 Technique: Single frontal view of the chest is obtained. Findings: Low lung volume with vascular crowding or congestion is noted. The heart size is in the upper limits of normal. Tip of the right central lines at the right atrium. Tip of the left Port-A-Cath is at the mid to distal SVC. No pleural effusion is seen. No pneumothorax is seen. Impression: Low lung volume with vascular crowding or congestion. [facility]-[id number] Performing Organization Address City/[facility]/Zipcode Phone Number [facility] [address] [place] [phone] * hCG qualitative, serum screen (02/19/2018 11:45 PM DECK MOLDER) Only the most recent of 2 results within the time period is included. hCG qualitative, serum NegativeComment: Sensitivity [facility] DEPARTMENT OF of HCG test: 25 mIU/mL PATHOLOGY AND GENOMIC MEDICINE Specimen Blood Performing Organization Address [facility] Phone Number [facility] DEPARTMENT OF [address] [place] [phone] PATHOLOGY AND [employer] MEDICINE * Estimated GFR (02/19/2018 10:39 PM DECK MOLDER) Only the most recent of 18 results within the time period is included. Estimated GFR 10 (A) mL/min/1.73 m2 [facility] DEPARTMENT OF Comment: PATHOLOGY AND [employer] GENOMIC MEDICINE rpretation G1 >=90 Normal or high G2 60-89Mildly decreased [id number] Mildly to moderately decreased [id number] Moderately to severely decreased G4 15-29Severely decreased G5 <15Kidney failure The eGFR was calculated using the Chronic Kidney Disease Epidemiology Collaboration (CKD-EPI) equation. Interpretation is based on recommendations of the National Kidney Foundation-Kidney Disease Outcomes Quality Initiative (NKF-KDOQI) published in 2014. Specimen Plasma specimen Performing Organization Address City/[facility] Phone Number [facility] DEPARTMENT OF [address] [place] [phone] PATHOLOGY AND GENOMIC MEDICINE * Beta hydroxybutyrate (02/19/2018 10:39 PM DECK MOLDER) Beta hydroxybutyrate 0.07 0.02 - 0.27 mmol/L [facility] DEPARTMENT OF PATHOLOGY AND [employer] MEDICINE Specimen Serum Performing Organization Address [facility] [place] [address] PATHOLOGY AND [employer] MEDICINE * Troponin (02/19/2018 10:39 PM DECK MOLDER) Only the most recent of 7 results within the time period is included. Troponin <0.30 0.00 - 0.30 ng/mL [facility] DEPARTMENT OF Comment: PATHOLOGY AND 0.30 - 1.49 GENOMIC MEDICINE ng/mlMay indicate increased risk of acute coronary syndrome. >=1.5 ng/ml Consistent with acute myocardial infarction. The diagnostic value of a single normal or non-diagnostic result is questionable.Serial samples at 2-6 hour intervals are required to rule out acute myocardial injury. Specimen Plasma specimen Performing Organization Address [facility] [place] [address] PATHOLOGY AND [employer] * Partial thromboplastin time, activated (02/19/2018 10:39 PM DECK MOLDER) Only the most recent of 4 results within the time period is included. PTT 44.7 (H) 23.0 - 36.0 sec [facility] DEPARTMENT OF Comment: PATHOLOGY AND PTT therapeutic range for [facility] MEDICINE unfractionated heparin is 61.0-112.0 seconds which corresponds to Anti-Xa 0.3-0.7 U/ml. Specimen Blood Performing Organization Address [facility] [place] [address] PATHOLOGY AND [employer] * Prothrombin time with INR (02/19/2018 10:39 PM DECK MOLDER) Only the most recent of 4 results within the time period is included. Prothrombin time 15.7 (H) 11.5 - 14.5 sec [facility] DEPARTMENT OF PATHOLOGY AND [employer] MEDICINE INR 1.3 [facility] DEPARTMENT OF Comment: PATHOLOGY AND The International Normalized GENOMIC MEDICINE Ratio (INR) is a therapeutic monitoring tool for patients who are stable on oral anticoagulant therapy. An INR of 2.0-3.0 is suggested for deep vein thrombosis/pulmonary embolism. Specimen Blood Performing Organization Address City/[facility] [place] [address] PATHOLOGY AND [employer] [facility] * CBC with platelet and differential (02/19/2018 10:39 PM DECK MOLDER) Only the most recent of 13 results within the time period is included. WBC 5.22 4.50 - 11.00 k/uL [facility] DEPARTMENT OF PATHOLOGY AND GENOMIC MEDICINE RBC 4.05 (L) 4.20 - 5.50 m/uL [facility] DEPARTMENT OF PATHOLOGY AND GENOMIC MEDICINE HGB 11.5 (L) 12.0 - 16.0 g/dL [facility] DEPARTMENT OF PATHOLOGY AND GENOMIC MEDICINE HCT 39.6 37.0 - 47.0 % [facility] DEPARTMENT OF PATHOLOGY AND GENOMIC MEDICINE MCV 97.8 82.0 - 100.0 fL [facility] DEPARTMENT OF PATHOLOGY AND GENOMIC MEDICINE MCH 28.4 27.0 - 34.0 pg [facility] DEPARTMENT OF PATHOLOGY AND GENOMIC MEDICINE MCHC 29.0 (L) 31.0 - 37.0 g/dL [facility] DEPARTMENT OF PATHOLOGY AND GENOMIC MEDICINE RDW - SD 65.5 (H) 37.0 - 55.0 fL [facility] DEPARTMENT OF PATHOLOGY AND GENOMIC MEDICINE MPV 10.4 8.8 - 13.2 fL [facility] DEPARTMENT OF PATHOLOGY AND GENOMIC MEDICINE Platelet count 147 (L) 150 - 400 k/uL [facility] DEPARTMENT OF PATHOLOGY AND GENOMIC MEDICINE Nucleated RBC 0.00 /100 WBC [facility] DEPARTMENT OF PATHOLOGY AND GENOMIC MEDICINE Neutrophils 71.7 (H) 39.0 - 69.0 % [facility] DEPARTMENT OF PATHOLOGY AND GENOMIC MEDICINE Lymphocytes 17.6 (L) 25.0 - 45.0 % [facility] DEPARTMENT OF PATHOLOGY AND GENOMIC MEDICINE Monocytes 8.0 0.0 - 10.0 % [facility] DEPARTMENT OF PATHOLOGY AND GENOMIC MEDICINE Eosinophils 1.7 0.0 - 5.0 % [facility] DEPARTMENT OF PATHOLOGY AND GENOMIC MEDICINE Basophils 0.6 0.0 - 1.0 % [facility] DEPARTMENT OF PATHOLOGY AND GENOMIC MEDICINE Immature granulocytes 0.4Comment: "Immature 0.0 - 1.0 % [facility] DEPARTMENT OF granulocytes" (promyelocytes, PATHOLOGY AND myelocytes, metamyelocytes) GENOMIC MEDICINE Specimen Blood Performing Organization Address City/State/Zipcode Phone Number [facility] DEPARTMENT [address] [place] [address] PATHOLOGY AND GENOMIC MEDICINE * B natriuretic peptide (02/19/2018 10:39 PM DECK MOLDER) Only the most recent of 4 results within the time period is included. BNP 506 (H) 0 - 100 pg/mL [facility] DEPARTMENT OF PATHOLOGY AND GENOMIC MEDICINE Specimen Blood Performing Organization Address City/[facility]/Zipcode Phone Number [facility] DEPARTMENT OF [address] [place] [address] PATHOLOGY AND GENOMIC MEDICINE * Creatine kinase, total (CPK) (02/19/2018 10:39 PM DECK MOLDER) Creatine kinase 40 26 - 192 U/L [facility] DEPARTMENT OF PATHOLOGY AND GENOMIC MEDICINE Specimen Plasma specimen Performing Organization Address [facility]/Zipcode Phone Number [address] [address] PATHOLOGY AND GENOMIC MEDICINE * Comprehensive metabolic panel (02/19/2018 10:39 PM DECK MOLDER) Only the most recent of 8 results within the time period is included. Sodium 137 135 - 148 mEq/L [facility] DEPARTMENT OF PATHOLOGY AND GENOMIC MEDICINE Potassium 3.9 3.5 - 5.0 mEq/L [facility] DEPARTMENT OF PATHOLOGY AND GENOMIC MEDICINE Chloride 98 98 - 112 mEq/L [facility] DEPARTMENT OF PATHOLOGY AND GENOMIC MEDICINE CO2 20 (L) 24 - 31 mEq/L [facility] DEPARTMENT OF PATHOLOGY AND GENOMIC MEDICINE Anion gap 19@ANIO (H) 7 - 15 mEq/L [facility] DEPARTMENT OF PATHOLOGY AND GENOMIC MEDICINE BUN 35 (H) 6 - 20 mg/dL [facility] DEPARTMENT OF PATHOLOGY AND GENOMIC MEDICINE Creatinine 5.83 (H) 0.50 - 0.90 mg/dL [facility] DEPARTMENT OF PATHOLOGY AND GENOMIC MEDICINE Glucose 138 (H) 65 - 99 mg/dL [facility] DEPARTMENT OF PATHOLOGY AND GENOMIC MEDICINE Calcium 9.0 8.3 - 10.2 mg/dL [facility] DEPARTMENT OF PATHOLOGY AND GENOMIC MEDICINE Protein 8.5 (H) 6.3 - 8.3 g/dL [facility] DEPARTMENT OF Comment: PATHOLOGY AND GENOMIC MEDICINE 4.6-7.0 g/dL 1 week 4.4-7.6 g/dL 7 months-1year 5.1-7.3 g/dL 1-2 years5.6-7 .5 g/dL >3 years6.0-8 .0 g/dL 18-150 6.3-8.3 g/dL Albumin 2.6 (L) 3.5 - 5.0 g/dL [facility] DEPARTMENT OF PATHOLOGY AND GENOMIC MEDICINE A/G ratio 0.4 (L) 0.7 - 3.8 [facility] DEPARTMENT OF PATHOLOGY AND GENOMIC MEDICINE Alkaline phosphatase 205 (H) 35 - 104 U/L [facility] DEPARTMENT OF PATHOLOGY AND GENOMIC MEDICINE AST 29 10 - 35 U/L [facility] DEPARTMENT OF PATHOLOGY AND GENOMIC MEDICINE ALT 25 5 - 50 U/L [facility] DEPARTMENT OF PATHOLOGY AND GENOMIC MEDICINE Total bilirubin 0.3 0.0 - 1.2 mg/dL [facility] DEPARTMENT OF PATHOLOGY AND GENOMIC MEDICINE Specimen Plasma specimen Performing Organization Address [facility] Phone Number [facility] DEPARTMENT OF [address] [place] [address] PATHOLOGY AND GENOMIC MEDICINE * ECG ED Preliminary Interpretation - NOT AN ORDER (02/19/2018 9:56 PM DECK MOLDER) Only the most recent of 2 results within the time period is included. Narrative Performed At Kourtney Sanchez MD 02/20/20185:40 PM ECG ED Preliminary Interpretation - Not an Order Performed by: KOURTNEY SANCHEZ Authorized by: KOURTNEY SANCHEZ ECG reviewed by ED Physician in the absence of a embedded nurse: yes Previous ECG: Previous ECG:Compared to current Comparison ECG info:Only new changes from previous are that t-waves are a little peaked in V2 and V3 Similarity:Changes noted Interpretation: Interpretation: normal Rate: ECG rate:101 ECG rate assessment: tachycardic Rhythm: Rhythm: sinus tachycardia Ectopy: Ectopy: none QRS: QRS axis:Left QRS intervals:Normal Conduction: Conduction: normal ST segments: ST segments:Normal T waves: T waves: normal * POC glucose (02/19/2018 9:36 PM DECK MOLDER) Only the most recent of 165 results within the time period is included. POC glucose 148 (H) 65 - 99 mg/dL [facility] DEPARTMENT OF Comment: PATHOLOGY AND No Action Needed GENOMIC MEDICINE Meter ID: [id number] Buggy Man: Roel Dorsey Performing Organization Address City/[facility] Phone Number [facility] DEPARTMENT OF [address] [place] [address] PATHOLOGY AND GENOMIC MEDICINE * ECG 12 lead (02/19/2018 9:07 PM DECK MOLDER) Only the most recent of 4 results within the time period is included. Ventricular rate 101 [facility] Atrial rate 101 [facility] WA interval 186 [facility] QRSD interval 100 [facility] QT interval 392 [facility] QTC interval 508 [facility] P axis 1 58 [facility] QRS axis 1 -9 [facility] T wave axis 75 [facility] EKG impression Sinus tachycardia-Nonspecific [facility] MUSE ST and T wave abnormality-Abnormal ECG-In automated comparison with ECG of 26-JAN-2018 23:47,-Nonspecific T wave abnormality no longer evident in Inferior leads-T wave inversion no longer evident in Lateral leads- Performing Organization Address City/[facility] Phone Number [facility] MUSE [address] [place] [address] * Smear review (02/17/2018 4:30 AM DECK MOLDER) Platelet slide review Kenia adequate [facility] DEPARTMENT OF PATHOLOGY AND GENOMIC MEDICINE Anisocytosis Moderate [facility] DEPARTMENT OF PATHOLOGY AND GENOMIC MEDICINE Polychromasia Moderate [facility] DEPARTMENT OF PATHOLOGY AND GENOMIC MEDICINE Ovalocytes Moderate [facility] DEPARTMENT OF PATHOLOGY AND GENOMIC MEDICINE Performing Organization Address [facility] Phone Number [facility] [place] [address] PATHOLOGY AND GENOMIC MEDICINE * Basic metabolic panel (02/17/2018 4:00 AM DECK MOLDER) Only the most recent of 10 results within the time period is included. Sodium 136 135 - 148 mEq/L [facility] DEPARTMENT OF PATHOLOGY AND GENOMIC MEDICINE Potassium 4.8 3.5 - 5.0 mEq/L [facility] DEPARTMENT OF PATHOLOGY AND GENOMIC MEDICINE Chloride 97 (L) 98 - 112 mEq/L [facility] DEPARTMENT OF PATHOLOGY AND GENOMIC MEDICINE CO2 22 (L) 24 - 31 mEq/L [facility] DEPARTMENT OF PATHOLOGY AND GENOMIC MEDICINE Anion gap 17@ANIO (H) 7 - 15 mEq/L [facility] DEPARTMENT OF PATHOLOGY AND GENOMIC MEDICINE BUN 32 (H) 6 - 20 mg/dL [facility] DEPARTMENT OF PATHOLOGY AND GENOMIC MEDICINE Creatinine 5.52 (H) 0.50 - 0.90 mg/dL [facility] DEPARTMENT OF PATHOLOGY AND GENOMIC MEDICINE Glucose 72 65 - 99 mg/dL [facility] DEPARTMENT OF PATHOLOGY AND GENOMIC MEDICINE Calcium 8.8 8.3 - 10.2 mg/dL [facility] DEPARTMENT OF PATHOLOGY AND GENOMIC MEDICINE Specimen Plasma specimen Performing Organization Address City/[facility] Phone Number [address] [address] PATHOLOGY AND GENOMIC MEDICINE * CT Angiogram Pe Chest (02/14/2018 6:51 PM CDT) Narrative Performed At EXAMINATION: [facility] CT ANGIOGRAM PE CHEST CLINICAL HISTORY: chest pain TECHNIQUE: CT angiographic images of the chest were obtained during intravenous administration of iodinated contrast. Computerized reformatted images and 3-D MIP images were also obtained and archived (CT pulmonary embolus protocol).All CT images were acquired using low-dose technique with automated exposure control. COMPARISON: January 28, 2018 FINDINGS: 1.There are no intraluminal filling defects involving the main pulmonary artery or pulmonary arterial branches. The thoracic aorta is of normal caliber without evidence for aneurysm or dissection. 2.Heart size is slightly enlarged. 3.There are diffuse groundglass opacities in lungs bilaterally most likely related to edema rather than pneumonitis. 4.A pleural or pericardial effusion is not identified. No pneumothorax. 5.Small nonspecific mediastinal lymph nodes measuring up to 7 mm in the prevascular space and 10 mm at the level the right hilum. 6.Mild circumferential wall thickening of the distal esophagus may relate to mild esophagitis. 7.A port is present over the left chest with the tip of the catheter segment overlying the right atrium. There is a 2 lm right-sided central venous catheter with satisfactory positioning. 8.Prominent left axillary and retropectoral lymph nodes are unchanged relative to prior measuring up to 15 x 12 mm. There is a pacemaker device overlying the left chest 9.There are collateral vessels in the mediastinum as well as along the right chest which may relate to narrowing or stenosis involving the right subclavian vein and/or SVC although assessment is limited due to timing of the contrast bolus. 10.Incidental note is made of bony resorption and erosive changes involving the left humeral head which may relate to sequela of renal osteodystrophy. IMPRESSION: 1.No evidence to suggest acute pulmonary embolus. 2.Cardiomegaly with diffuse bilateral groundglass opacity most likely related to edema although pneumonitis/infectious etiologies cannot be excluded. 3.Prominent left retropectoral and left axillary lymphadenopathy, stable when compared to prior. [facility]-[id number] Procedure Note [facility], Radiology Results Incoming - 02/14/2018 7:17 PM CDT EXAMINATION: CT ANGIOGRAM PE CHEST CLINICAL HISTORY: chest pain TECHNIQUE: CT angiographic images of the chest were obtained during intravenous administration of iodinated contrast. Computerized reformatted images and 3-D MIP images were also obtained and archived (CT pulmonary embolus protocol). All CT images were acquired using low-dose technique with automated exposure control. COMPARISON: January 28, 2018 FINDINGS: 1. There are no intraluminal filling defects involving the main pulmonary artery or pulmonary arterial branches. The thoracic aorta is of normal caliber without evidence for aneurysm or dissection. 2. Heart size is slightly enlarged. 3. There are diffuse groundglass opacities in lungs bilaterally most likely related to edema rather than pneumonitis. 4. A pleural or pericardial effusion is not identified. No pneumothorax. 5. Small nonspecific mediastinal lymph nodes measuring up to 7 mm in the prevascular space and 10 mm at the level the right hilum. 6. Mild circumferential wall thickening of the distal esophagus may relate to mild esophagitis. 7. A port is present over the left chest with the tip of the catheter segment overlying the right atrium. There is a 2 lm right-sided central venous catheter with satisfactory positioning. 8. Prominent left axillary and retropectoral lymph nodes are unchanged relative to prior measuring up to 15 x 12 mm. There is a pacemaker device overlying the left chest 9. There are collateral vessels in the mediastinum as well as along the right chest which may relate to narrowing or stenosis involving the right subclavian vein and/or SVC although assessment is limited due to timing of the contrast bolus. 10. Incidental note is made of bony resorption and erosive changes involving the left humeral head which may relate to sequela of renal osteodystrophy. IMPRESSION: 1. No evidence to suggest acute pulmonary embolus. 2. Cardiomegaly with diffuse bilateral groundglass opacity most likely related to edema although pneumonitis/infectious etiologies cannot be excluded. 3. Prominent left retropectoral and left axillary lymphadenopathy, stable when compared to prior. [facility]-[id number] Performing Organization Address City/[facility]/Zipcode Phone Number [facility] [address] [place] [address] * Magnesium level (02/14/2018 12:00 PM CDT) Only the most recent of 3 results within the time period is included. Magnesium 2.5 1.6 - 2.6 mg/dL [facility] DEPARTMENT OF PATHOLOGY AND GENOMIC MEDICINE Specimen Plasma specimen Performing Organization Address City/[facility] Phone Number [address] [address] PATHOLOGY AND GENOMIC MEDICINE * Phosphorus level (02/10/2018 4:56 AM CDT) Only the most recent of 2 results within the time period is included. Phosphorus 2.1 (L) 2.4 - 4.5 mg/dL [facility] DEPARTMENT OF PATHOLOGY AND GENOMIC MEDICINE Specimen Plasma specimen Performing Organization Address [facility] [address] PATHOLOGY AND GENOMIC MEDICINE * Free phenytoin level (02/10/2018 4:56 AM CDT) Phenytoin, free 0.49 (L) 1.00 - 2.00 ug/mL [facility] DEPARTMENT OF PATHOLOGY AND GENOMIC MEDICINE Specimen Blood Performing Organization Address [facility] [address] PATHOLOGY AND GENOMIC MEDICINE * Phenytoin level (02/10/2018 4:56 AM CDT) Only the most recent of 4 results within the time period is included. Phenytoin 3.5 (L) 10.0 - 20.0 ug/mL [facility] DEPARTMENT OF Comment: PATHOLOGY AND Therapeutic Range: GENOMIC MEDICINE 10 - 20 ug/mL Specimen Plasma specimen Performing Organization Address [facility] [address] PATHOLOGY AND GENOMIC MEDICINE * Sedimentation rate (02/08/2018 3:30 PM CDT) Only the most recent of 2 results within the time period is included. Sedimentation rate 38 (H) 0 - 20 mm/hr [facility] DEPARTMENT OF PATHOLOGY AND GENOMIC MEDICINE Specimen Blood Performing Organization Address [facility] [address] PATHOLOGY AND GENOMIC MEDICINE * C-reactive protein (02/08/2018 11:54 AM CDT) Only the most recent of 2 results within the time period is included. CRP 0.43 0.00 - 0.50 mg/dL [facility] DEPARTMENT OF PATHOLOGY AND GENOMIC MEDICINE Specimen Plasma specimen Performing Organization Address [facility] [address] PATHOLOGY AND GENOMIC MEDICINE * MRI Shoulder Wo Contrast Left (02/07/2018 12:50 PM CDT) Narrative Performed At [facility] EXAMINATION:MRI SHOULDER WO CONTRAST LEFT CLINICAL HISTORY:Left humerus osteomyelitis TECHNIQUE:Multiplanar multisequence MR imaging of the left shoulder was performed without contrast. Images are severely graded by susceptibility artifacts and field inhomogeneity artifacts. COMPARISON:X-ray 12/28/2017 IMPRESSION: ROTATOR CUFF: There appears to be a tear of the infraspinatus tendon, which is difficult to confirm because of the presence of artifacts. Possible distal supraspinatus tendon tear subscapularis and teres minor tendons are intact. LABRUM: Diffuse degenerative signal. BICEPS TENDON: Intra-articular portion is not well visualized. The extra-articular portion appears intact. AC JOINT: Intact. GLENOHUMERAL JOINT: Small effusion. BONE MARROW: Destructive changes in the lateral and posterior aspect of the humeral head which are consistent with osteomyelitis. Remainder of visualized osseous structures appear intact. SOFT TISSUES: Extensive periarticular soft tissue edema. [facility]-[id number] Procedure Note Interface, Radiology Results Incoming - 02/07/2018 2:39 PM CDT EXAMINATION: MRI SHOULDER WO CONTRAST LEFT CLINICAL HISTORY: Left humerus osteomyelitis TECHNIQUE: Multiplanar multisequence MR imaging of the left shoulder was performed without contrast. Images are severely graded by susceptibility artifacts and field inhomogeneity artifacts. COMPARISON: X-ray 12/28/2017 IMPRESSION: ROTATOR CUFF: There appears to be a tear of the infraspinatus tendon, which is difficult to confirm because of the presence of artifacts. Possible distal supraspinatus tendon tear subscapularis and teres minor tendons are intact. LABRUM: Diffuse degenerative signal. BICEPS TENDON: Intra-articular portion is not well visualized. The extra- articular portion appears intact. AC JOINT: Intact. GLENOHUMERAL JOINT: Small effusion. BONE MARROW: Destructive changes in the lateral and posterior aspect of the humeral head which are consistent with osteomyelitis. Remainder of visualized osseous structures appear intact. SOFT TISSUES: Extensive periarticular soft tissue edema. [facility]-[id number] Performing Organization Address City/State/Zipcode Phone Number [facility] [address] [place] [address] * MRI Cervical Spine Wo Contrast (02/07/2018 12:20 PM CDT) Narrative Performed At [facility] EXAMINATION: MRI CERVICAL SPINE WO CONTRAST CLINICAL HISTORY: Radiculopathy COMPARISON:None TECHNIQUE: Multiplanar multisequence noncontrast enhanced examination was performed of the cervical spine. FINDINGS: Vertebral body heights are maintained. The cervicomedullary junction is unremarkable. No cord signal abnormality identified. No focal marrow lesions. No masses are present in the visualized prevertebral soft tissues. Cervical alignment is preserved with normal lordosis. There is no significant spondylolisthesis. Axial images through the disc spaces demonstrate the following: C1-C2: There is narrowing of the atlantoaxial interval with spurring. There is no significant stenosis. C2-C3: No significant posterior disc disease, spinal canal or neural foraminal stenosis. C3-C4: No significant posterior disc disease, spinal canal or neural foraminal stenosis. C4-C5: No significant posterior disc disease, spinal canal or neural foraminal stenosis. C5-C6: No significant posterior disc disease, spinal canal or neural foraminal stenosis. C6-C7: No significant posterior disc disease, spinal canal or neural foraminal stenosis. C7-T1: No significant posterior disc disease, spinal canal or neural foraminal stenosis. There is no significant MRI abnormality of the cervical spine to explain patient's radiculopathy. The patient spine is normal for age with no significant MRI findings. IMPRESSION: No significant cervical spine abnormality identified. [facility]-[id number] Procedure Note Hm Interface, Radiology Results Incoming - 02/07/2018 2:22 PM CDT EXAMINATION: MRI CERVICAL SPINE WO CONTRAST CLINICAL HISTORY: Radiculopathy COMPARISON: None TECHNIQUE: Multiplanar multisequence noncontrast enhanced examination was performed of the cervical spine. FINDINGS: Vertebral body heights are maintained. The cervicomedullary junction is unremarkable. No cord signal abnormality identified. No focal marrow lesions. No masses are present in the visualized prevertebral soft tissues. Cervical alignment is preserved with normal lordosis. There is no significant spondylolisthesis. Axial images through the disc spaces demonstrate the following: C1-C2: There is narrowing of the atlantoaxial interval with spurring. There is no significant stenosis. C2-C3: No significant posterior disc disease, spinal canal or neural foraminal stenosis. C3-C4: No significant posterior disc disease, spinal canal or neural foraminal stenosis. C4-C5: No significant posterior disc disease, spinal canal or neural foraminal stenosis. C5-C6: No significant posterior disc disease, spinal canal or neural foraminal stenosis. C6-C7: No significant posterior disc disease, spinal canal or neural foraminal stenosis. C7-T1: No significant posterior disc disease, spinal canal or neural foraminal stenosis. There is no significant MRI abnormality of the cervical spine to explain patient's radiculopathy. The patient spine is normal for age with no significant MRI findings. IMPRESSION: No significant cervical spine abnormality identified. [facility]-[id number] Performing Organization Address [facility] Phone Number [facility] [address] [place] [address] * MRI Brain Wo Contrast (02/07/2018 11:50 AM CDT) Narrative Performed At EXAMINATION:MRI BRAIN WO CONTRAST [facility] CLINICAL HISTORY:STROKE COMPARISON:CT of the head dated January 31, 2018 TECHNIQUE: Multiplanar MRI imaging without IV Gadolinium was performed. FINDINGS: The brain parenchyma is unremarkable with no signal abnormality. There is no evidence of acute infarction, hemorrhage, mass lesion, or midline shift. Ventricles, sulci, and cisterns are age-appropriate in size and configuration. There is no extra-axial fluid collection. Flow voids of the major intracranial vessels are intact. Visualized paranasal sinuses and mastoid air cells are clear. Bones, orbits, and soft tissues are unremarkable. IMPRESSION: No acute intracranial abnormality. [facility]-[id number] Procedure Note Interface, Radiology Results Incoming - 02/07/2018 12:36 PM CDT EXAMINATION: MRI BRAIN WO CONTRAST CLINICAL HISTORY: STROKE COMPARISON: CT of the head dated January 31, 2018 TECHNIQUE: Multiplanar MRI imaging without IV Gadolinium was performed. FINDINGS: The brain parenchyma is unremarkable with no signal abnormality. There is no evidence of acute infarction, hemorrhage, mass lesion, or midline shift. Ventricles, sulci, and cisterns are age-appropriate in size and configuration. There is no extra-axial fluid collection. Flow voids of the major intracranial vessels are intact. Visualized paranasal sinuses and mastoid air cells are clear. Bones, orbits, and soft tissues are unremarkable. IMPRESSION: No acute intracranial abnormality. [facility]-[id number] Performing Organization Address [facility] Phone Number [facility] [address] [place] [address] * NM Bone Scan 3 Phase (02/05/2018 1:20 PM CDT) Narrative Performed At PROCEDURE:NM BONE SCAN 3 PHASE [facility] INDICATION:Osteomyelitis of left shoulder. COMPARISON:CT scan of the left upper extremity dated 01/28/2018. TECHNIQUE: The patient was injected with 25 mCi of Tc-99m labeled MDP IV and a three phase bone scan of the thorax was performed. Immediate flow and pool images were followed by delayed images acquired three hours later. Delayed planar whole body imaging was also performed. FINDINGS:Flow and pool images demonstrate hyperemia surrounding the left shoulder.Delayed images demonstrate increased uptake in the left humeral head, correlating with osteolysis seen on comparison CT.Degenerative uptake is present in the right shoulder.Whole body imaging demonstrates no suspicious uptake. IMPRESSION: 1. Findings suggest osteomyelitis involving the proximal left humerus. [facility]-[id number] Procedure Note [facility], Radiology Results Incoming - 02/05/2018 1:36 PM CDT PROCEDURE: NM BONE SCAN 3 PHASE INDICATION: Osteomyelitis of left shoulder. COMPARISON: CT scan of the left upper extremity dated 01/28/2018. TECHNIQUE: The patient was injected with 25 mCi of Tc-99m labeled MDP IV and a three phase bone scan of the thorax was performed. Immediate flow and pool images were followed by delayed images acquired three hours later. Delayed planar whole body imaging was also performed. FINDINGS: Flow and pool images demonstrate hyperemia surrounding the left shoulder. Delayed images demonstrate increased uptake in the left humeral head, correlating with osteolysis seen on comparison CT. Degenerative uptake is present in the right shoulder. Whole body imaging demonstrates no suspicious uptake. IMPRESSION: 1. Findings suggest osteomyelitis involving the proximal left humerus. [facility]-[id number] Performing Organization Address City/State/Zipcode Phone Number [facility] [address] [place] [address] * CBC hemogram (02/04/2018 11:30 AM CDT) Only the most recent of 3 results within the time period is included. WBC 3.45 (L) 4.50 - 11.00 k/uL [facility] DEPARTMENT OF PATHOLOGY AND GENOMIC MEDICINE RBC 3.26 (L) 4.20 - 5.50 m/uL [facility] DEPARTMENT OF PATHOLOGY AND GENOMIC MEDICINE HGB 9.0 (L) 12.0 - 16.0 g/dL [facility] DEPARTMENT OF PATHOLOGY AND GENOMIC MEDICINE HCT 31.3 (L) 37.0 - 47.0 % [facility] DEPARTMENT OF PATHOLOGY AND GENOMIC MEDICINE MCV 96.0 82.0 - 100.0 fL [facility] DEPARTMENT OF PATHOLOGY AND GENOMIC MEDICINE MCH 27.6 27.0 - 34.0 pg [facility] DEPARTMENT OF PATHOLOGY AND GENOMIC MEDICINE MCHC 28.8 (L) 31.0 - 37.0 g/dL [facility] DEPARTMENT OF PATHOLOGY AND GENOMIC MEDICINE RDW - SD 61.7 (H) 37.0 - 55.0 fL [facility] DEPARTMENT OF PATHOLOGY AND GENOMIC MEDICINE MPV 10.8 8.8 - 13.2 fL [facility] DEPARTMENT OF PATHOLOGY AND GENOMIC MEDICINE Platelet count 142 (L) 150 - 400 k/uL [facility] DEPARTMENT OF PATHOLOGY AND GENOMIC MEDICINE Nucleated RBC 0.00 /100 WBC [facility] DEPARTMENT OF PATHOLOGY AND GENOMIC MEDICINE Specimen Blood Performing Organization Address City/[facility] Phone Number [address] [address] PATHOLOGY AND [employer] MEDICINE * Urine drugs of abuse screen (02/02/2018 1:41 PM CDT) Only the most recent of 2 results within the time period is included. Amphetamine screen, urine Negative [facility] DEPARTMENT OF PATHOLOGY AND GENOMIC MEDICINE Barbiturate screen, urine Negative [facility] DEPARTMENT OF PATHOLOGY AND GENOMIC MEDICINE Benzodiazepine screen, Negative [facility] DEPARTMENT OF urine PATHOLOGY AND GENOMIC MEDICINE Cannabinoid screen, urine Negative [facility] DEPARTMENT OF PATHOLOGY AND GENOMIC MEDICINE Cocaine screen, urine Negative [facility] DEPARTMENT OF PATHOLOGY AND GENOMIC MEDICINE Methadone metabolite Negative [facility] DEPARTMENT OF (EDDP), urine PATHOLOGY AND GENOMIC MEDICINE Opiates screen, urine Positive (A) [facility] DEPARTMENT OF PATHOLOGY AND GENOMIC MEDICINE Oxycodone screen, urine Negative [facility] DEPARTMENT OF PATHOLOGY AND GENOMIC MEDICINE Phencyclidine screen, Negative [facility] DEPARTMENT OF urine PATHOLOGY AND GENOMIC MEDICINE Tricyclic screen, urine Negative [facility] DEPARTMENT OF Comment: PATHOLOGY AND Drug screen minimum [facility] concentration of detectability Amphetamines 1000 ng/mL Barbiturates 200 ng/mL Benzodiazepines 300 ng/mL Cocaine 300 ng/mL Methadone 300 ng/mL Opiates 300 ng/mL Oxycodone 300 ng/mL Phencyclidine 25 ng/mL Cannabinoids 50 ng/mL Tricyclics 1000 ng/mL Negative test results indicates presumptive evidence of lack of clinically significant drug concentration in this urine specimen. Positive test results are presumptive evidence of clinically significant drug concentration in this urine specimen. Testing performed for medical purposes only. Specimen Urine Performing Organization Address City/[facility] Phone Number [address] [address] PATHOLOGY AND [employer] MEDICINE * Urinalysis, automated with microscopy (02/02/2018 1:41 PM CDT) Color, UA Dark Yellow [facility] DEPARTMENT OF PATHOLOGY AND GENOMIC MEDICINE Appearance, UA Hazy [facility] DEPARTMENT OF PATHOLOGY AND GENOMIC MEDICINE Specific gravity, UA 1.019 1.001 - 1.035 [facility] DEPARTMENT OF PATHOLOGY AND GENOMIC MEDICINE pH, UA 5.0 5.0 - 8.5 [facility] DEPARTMENT OF PATHOLOGY AND GENOMIC MEDICINE Protein, UA 2+ (A) Negative [facility] DEPARTMENT OF PATHOLOGY AND GENOMIC MEDICINE Glucose, UA Negative Negative [facility] DEPARTMENT OF PATHOLOGY AND GENOMIC MEDICINE Ketones, UA Negative Negative [facility] DEPARTMENT OF PATHOLOGY AND GENOMIC MEDICINE Bilirubin, UA Negative Negative [facility] DEPARTMENT OF PATHOLOGY AND GENOMIC MEDICINE Blood, UA Small (A) Negative [facility] DEPARTMENT OF PATHOLOGY AND GENOMIC MEDICINE Nitrite, UA Negative Negative [facility] DEPARTMENT OF PATHOLOGY AND GENOMIC MEDICINE Urobilinogen, UA <2.0 <2.0 [facility] DEPARTMENT OF PATHOLOGY AND GENOMIC MEDICINE Leukocyte esterase, UA Moderate (A) Negative [facility] DEPARTMENT OF PATHOLOGY AND GENOMIC MEDICINE Epithelial cells, UA 3 /HPF [facility] DEPARTMENT OF PATHOLOGY AND GENOMIC MEDICINE WBC, UA 85 (H) 0 - 4 /HPF [facility] DEPARTMENT OF PATHOLOGY AND GENOMIC MEDICINE RBC, UA 4 0 - 5 /HPF [facility] DEPARTMENT OF PATHOLOGY AND GENOMIC MEDICINE Bacteria, UA Few None seen [facility] DEPARTMENT OF PATHOLOGY AND GENOMIC MEDICINE Hyaline casts, UA >20 (A) /LPF [facility] DEPARTMENT OF PATHOLOGY AND GENOMIC MEDICINE Yeast, UA None seen [facility] DEPARTMENT OF PATHOLOGY AND GENOMIC MEDICINE Yeast with pseudohyphae, None seen [facility] DEPARTMENT OF PATHOLOGY AND GENOMIC MEDICINE Specimen Urine Performing Organization Address City/State/Zipcode Phone Number [facility] DEPARTMENT OF [address] [place] [address] PATHOLOGY AND GENOMIC MEDICINE * XR Abdomen 1 Vw Portable (01/31/2018 8:11 PM CDT) Narrative Performed At EXAMINATION:XR ABDOMEN 1 VW PORTABLE [facility] CLINICAL HISTORY:vomiting COMPARISON:None. IMPRESSION: Moderate amount retained stool in colon There is a nonspecific bowel gas pattern. No free air is identified. Gallbladder has been removed [facility]-[id number] Procedure Note Interface, Radiology Results Incoming - 01/31/2018 8:16 PM CDT EXAMINATION: XR ABDOMEN 1 VW PORTABLE CLINICAL HISTORY: vomiting COMPARISON: None. IMPRESSION: Moderate amount retained stool in colon There is a nonspecific bowel gas pattern. No free air is identified. Gallbladder has been removed [facility]-[id number] Performing Organization Address City/State/Zipcode Phone Number [facility] [address] [place] [address] * EEG (routine) (01/31/2018 1:55 PM CDT) Narrative Performed At EEG COMA/SLEEP Date of Service: 01/31/18 Awake Recordings: There is no well defined occipital dominant rhythm. 4-5 Hz and 1.5-3 Hz activity is present in all regions. 18-22 Hz activity was present in all regions. Diphasic and Triphasic sharp wave discharges were recorded in the frontal central regions. Sleep Recording: No definite sleep was recorded. Hyperventilation: Was not performed. Photic Stimulation: Was not performed. Impression: The findings are consistent with a diffuse disturbance in brain function which is most likely metabolic or ischemic hypoxic in etiology. No seizures occurred. ICD-10 Code: R569 * CT Stroke Brain Wo Contrast (01/31/2018 11:59 AM CDT) Narrative Performed At EXAMINATION:CT STROKE BRAIN WO CONTRAST [facility] CLINICAL HISTORY:STROKE COMPARISON:CT head 01/28/2018 TECHNIQUE: Noncontrast head CT performed using radiation dose reduction techniques.Technical factors are evaluated and adjusted to ensure appropriate moderation of exposure.Automated dose management technology is applied to adjust radiation exposure while achieving a diagnostic quality image. FINDINGS: No evidence of acute intracranial hemorrhage, mass, mass effect, midline shift, or acute infarct. Ventricles and sulci are normal in appearance for patient's age.Basal cisterns are clear. Calvarium is intact. Orbits are normal in appearance. No significant paranasal sinus mucosal thickening. Mastoid air cells are clear. IMPRESSION: 1. No CT evidence of acute intracranial abnormality. Findings were discussed with and acknowledged by BERNIE Guzman at 01/31/2018 12:04 PM who verbalized understanding. [facility]-[id number] Procedure Note Hm Interface, Radiology Results Incoming - 01/31/2018 12:08 PM CDT EXAMINATION: CT STROKE BRAIN WO CONTRAST CLINICAL HISTORY: STROKE COMPARISON: CT head 01/28/2018 TECHNIQUE: Noncontrast head CT performed using radiation dose reduction techniques. Technical factors are evaluated and adjusted to ensure appropriate moderation of exposure. Automated dose management technology is applied to adjust radiation exposure while achieving a diagnostic quality image. FINDINGS: No evidence of acute intracranial hemorrhage, mass, mass effect, midline shift, or acute infarct. Ventricles and sulci are normal in appearance for patient's age. Basal cisterns are clear. Calvarium is intact. Orbits are normal in appearance. No significant paranasal sinus mucosal thickening. Mastoid air cells are clear. IMPRESSION: 1. No CT evidence of acute intracranial abnormality. Findings were discussed with and acknowledged by BERNIE Guzman at 01/31/2018 12:04 PM who verbalized understanding. [facility]-[id number] Performing Organization Address City/[facility] [place] [address] * Arterial blood gas (01/31/2018 8:23 AM CDT) pH, arterial 7.40 7.35 - 7.45 [facility] DEPARTMENT OF PATHOLOGY AND GENOMIC MEDICINE pCO2, arterial 38 35 - 45 mmHg [facility] DEPARTMENT OF PATHOLOGY AND GENOMIC MEDICINE pO2, arterial 143 (H) 80 - 90 mmHg [facility] DEPARTMENT OF PATHOLOGY AND GENOMIC MEDICINE Bicarbonate, arterial 22.6 21.0 - 28.0 mmol/L [facility] DEPARTMENT OF PATHOLOGY AND GENOMIC MEDICINE Base excess, arterial -1 -2 - 2 mEq/L [facility] DEPARTMENT OF PATHOLOGY AND GENOMIC MEDICINE O2 saturation, arterial 100 95 - 100 % [facility] DEPARTMENT OF PATHOLOGY AND GENOMIC MEDICINE Specimen Blood Performing Organization Address [facility] [place] [address] PATHOLOGY AND GENOMIC MEDICINE * Manual differential (01/31/2018 8:22 AM CDT) Manual differential PERFORMED [facility] DEPARTMENT OF PATHOLOGY AND GENOMIC MEDICINE Neutrophils 90.0 (H) 39.0 - 69.0 % [facility] DEPARTMENT OF PATHOLOGY AND GENOMIC MEDICINE Lymphocytes 7.0 (L) 25.0 - 45.0 % [facility] DEPARTMENT OF PATHOLOGY AND GENOMIC MEDICINE Monocytes 1.0 0.0 - 10.0 % [facility] DEPARTMENT OF PATHOLOGY AND GENOMIC MEDICINE Eosinophils 2.0 0.0 - 5.0 % [facility] DEPARTMENT OF PATHOLOGY AND GENOMIC MEDICINE Basophils 0.0 0.0 - 1.0 % [facility] DEPARTMENT OF PATHOLOGY AND GENOMIC MEDICINE Metamyelocytes 0 % [facility] DEPARTMENT OF PATHOLOGY AND GENOMIC MEDICINE Promyelocytes 0 % [facility] DEPARTMENT OF PATHOLOGY AND GENOMIC MEDICINE Platelet slide review Kenia slt decr [facility] DEPARTMENT OF PATHOLOGY AND GENOMIC MEDICINE Anisocytosis Moderate [facility] DEPARTMENT OF PATHOLOGY AND GENOMIC MEDICINE Polychromasia Moderate [facility] DEPARTMENT OF PATHOLOGY AND GENOMIC MEDICINE Ovalocytes Moderate [facility] DEPARTMENT OF PATHOLOGY AND GENOMIC MEDICINE Enlarged platelets Moderate (A) [facility] DEPARTMENT OF PATHOLOGY AND GENOMIC MEDICINE Narrative Performed At DARIUS green and reab back to Ophelia Quevedo at 01/31/18 08:59 by [email or web address] [facility] DEPARTMENT OF PATHOLOGY AND GENOMIC MEDICINE Performing Organization Address City/[facility]/Zipcode Phone Number [facility] [place] [address] PATHOLOGY AND GENOMIC MEDICINE * Lactic acid level (01/31/2018 8:22 AM CDT) Only the most recent of 2 results within the time period is included. Lactic acid 1.2 0.5 - 2.2 mmol/L [facility] DEPARTMENT OF PATHOLOGY AND GENOMIC MEDICINE Specimen Blood Performing Organization Address City/[facility]ode Phone Number [facility] [place] [address] PATHOLOGY AND GENOMIC MEDICINE * EEG (routine) (01/29/2018 12:16 PM CDT) Narrative Performed At EEG AWAKE AND ASLEEP Date of Service: 01/29/18 Awake Recordings: The occipital dominant rhythm is 6-7 Hz and is poorly sustained. 4-5 Hz and 1.5-3 Hz activity is present in all regions. 18-22 Hz activity was present in all regions. Sleep Recording: No epileptiform activity was recorded. Hyperventilation: Was not performed. Photic Stimulation: Was not performed. Impression: The findings are consistent with a diffuse disturbance in brain function. No seizures occurred. ICD-10 Code: R569 * Echocardiogram complete w contrast and 3D if needed (01/29/2018 10:05 AM CDT) Narrative Performed At [facility] Echocardiography Report [address] [facility] [address], [place] [address] Pat.Name:SONAM BERMEO Rosario.ID:[id number] .Date: 01/29/2018Refer.MD:REGINALD FIGUEROA MD Exam Time: 9:20:00 AMStudy Type:Routine Echo Height:63inWeight:148lb BSA: 1.7 [id number]:1985,32Y Sex: FEMALEBP:140/97 HR:101 bpm Sonogrphr: Dale Issa RDCS Pat. Stat.:Inpatient Room:[address] Study Status:Final Echo Event ID:[id number] Order ID:[id number] Reason for Study:Stroke History / Clinical:Congestive Heart Failure, Diabetes, Hypertension, ESRD Procedures:2D Echo, Colorflow Doppler, Portable, Intravenous Definity Contrast, Intravenous Saline Contrast Race:B SUMMARY: LV EF is severely depressed. RV systolic function is depressed. Moderate mitral regurgitation. Moderate tricuspid regurgitation Diastolic dysfunction Grade III (Severe): Impaired relaxation with restrictive LV filling pressures. Estimated PA systolic pressure is 45 mmHg, assuming a mean RAP of 10 mmHg. FINDINGS: LV: LV size is enlarged. LV EF is severely depressed. Overall wallmotion is depressed. Estimated EF is 20-24%. RV: RV size is mildly enlarged. RV systolic function is depressed.RV wall motion is moderately hypokinetic. LA: LA volume is severely enlarged. RA: RA volume is severely enlarged. AO: Aortic root diameter is normal. KEREN: No pericardial effusion. AV: No structural AV abnormalities noted. MV: Mild thickening and calcification of mitral leaflets. Moderatemitral regurgitation. Etiology of MR is secondary toLV dysfunction and remodeling. PV: No structural PV abnormalities noted. Moderate pulmonic regurgitation. TV: Moderate tricuspid regurgitation Higuera: Diastolic dysfunction Grade III (Severe): Impaired relaxationwith restrictive LV filling pressures. Other:Estimated PA systolic pressure is 45 mmHg, assuming a mean RAPof 10 mmHg. MEASUREMENTS: 2D Parasternal Long [place] LVOT 1.9 cmLA Ds3.1 cm LVIDd4.9 cmIndex2.9 cm/m Ao An2.1 cm LVIDs4 cmAo Rtd 2.6 cm Index1.5 cm/m LV%fs 18.4 % LV Mass 73.6 g(87-129) IVSd 0.4 cmLVM Index 43.3 g/m2 LVPWd0.6 cmRWT0.2 LA Sng Plane LA Area 26.1 cm2(8.8-23.4) LA Vol89.8 ml Index52.8 ml/m LA LngAx 6 cm RA Sng Plane RA Area 21.5 cm2(8.3-19.5) RA Vol75.7 ml Index44.5 ml/m RA LngAx 4.8 cm EF Biplane HR 103 bpm VIR550.4 ml CO 2.5 l/min SV49.1 ml JJN925.6 mlEF29.5 % DOPPLER LVOT Stroke Vol LVOT 1.9 cmLVOT CO3 l/min LVOT TVI10.4 cmLVOT CI1.8 l/m/m2 LVOT Tm254 msecHR 103 bpm LVOT SV 29.5 ml MA For Flow/Valve Assess MA TVI 141.6 cm Signed 01/30/2018 12:21 AM Santana Redding M.D. Procedure Note Interface, Radiology Results In - 01/30/2018 12:21 AM CDT Echocardiography Report [address] [place] [address] Pat.Name: SONAM BERMEO Pat.ID: [id number] .Date: 01/29/2018 Refer.MD: REGINALD FIGUEROA MD Exam Time: 9:20:00 AM Study Type:Routine Echo Height: 63in Weight: 148lb BSA: 1.7 m2 Age: 9 1985,32Y Sex: FEMALE BP: 140/97 HR: 101 bpm Sonogrphr: Dale Issa RDCS Pat. Stat.:Inpatient Room: [address] Study Status:Final Echo Event ID:[id number] Order ID: [id number] Reason for Study:Stroke History / Clinical:Congestive Heart Failure, Diabetes, Hypertension, ESRD Procedures:2D Echo, Colorflow Doppler, Portable, Intravenous Definity Contrast, Intravenous Saline Contrast Race: B SUMMARY: LV EF is severely depressed. RV systolic function is depressed. Moderate mitral regurgitation. Moderate tricuspid regurgitation Diastolic dysfunction Grade III (Severe): Impaired relaxation with restrictive LV filling pressures. Estimated PA systolic pressure is 45 mmHg, assuming a mean RAP of 10 mmHg. FINDINGS: LV: LV size is enlarged. LV EF is severely depressed. Overall wall motion is depressed. Estimated EF is 20-24%. RV: RV size is mildly enlarged. RV systolic function is depressed. RV wall motion is moderately hypokinetic. LA: LA volume is severely enlarged. RA: RA volume is severely enlarged. AO: Aortic root diameter is normal. KEREN: No pericardial effusion. AV: No structural AV abnormalities noted. MV: Mild thickening and calcification of mitral leaflets. Moderate mitral regurgitation. Etiology of MR is secondary to LV dysfunction and remodeling. PV: No structural PV abnormalities noted. Moderate pulmonic regurgitation. TV: Moderate tricuspid regurgitation Higuera: Diastolic dysfunction Grade III (Severe): Impaired relaxation with restrictive LV filling pressures. Other: Estimated PA systolic pressure is 45 mmHg, assuming a mean RAP of 10 mmHg. MEASUREMENTS: 2D Parasternal Long [place] LVOT 1.9 cm LA Ds 3.1 cm LVIDd 4.9 cm Index 2.9 cm/m Ao An 2.1 cm LVIDs 4 cm Ao Rtd 2.6 cm Index 1.5 cm/m LV%fs 18.4 % LV Mass 73.6 g (87-129) IVSd 0.4 cm LVM Index 43.3 g/m2 LVPWd 0.6 cm RWT 0.2 LA Sng Plane LA Area 26.1 cm2 (8.8-23.4) LA Vol 89.8 ml Index 52.8 ml/m LA LngAx 6 cm RA Sng Plane RA Area 21.5 cm2 (8.3-19.5) RA Vol 75.7 ml Index 44.5 ml/m RA LngAx 4.8 cm EF Biplane HR 103 bpm ESV 117.4 ml CO 2.5 l/min SV 49.1 ml EDV 166.6 ml EF 29.5 % DOPPLER LVOT Stroke Vol LVOT 1.9 cm LVOT CO 3 l/min LVOT TVI 10.4 cm LVOT CI 1.8 l/m/m2 LVOT Tm 254 msec HR 103 bpm LVOT SV 29.5 ml MA For Flow/Valve Assess MA TVI 141.6 cm Signed 01/30/2018 12:21 AM Santana Redding M.D. Performing Organization Address City/State/[facility]ode Phone Number [facility] [address] [place] [address] * CTA Neck W Wo Contrast (01/28/2018 7:20 PM CDT) Narrative Performed At EXAMINATION:CT ANGIOGRAM NECK W WO CONTRAST [facility] CLINICAL HISTORY:STROKE COMPARISON:None. TECHNIQUE: Neck CTA with multi-planar MIP and volumetric rendering (3D) after bolus intravenous iodinated contrast administration was performed. All CT images were acquired using low-dose technique with automated exposure control. FINDINGS: There is normal contrast enhancement of the aortic arch and its proximal branch arteries with no significant stenosis or occlusion. There is normal contrast enhancement with no significant stenosis or occlusion along bilateral common, internal, and external carotid arteries. There is no significant stenosis according to the NASCET criteria (0%). There is normal contrast enhancement with no significant stenosis or occlusion along bilateral vertebral arteries. The rightvertebral artery is dominant. No significant cervical spondylosis is appreciated. There is nonspecific bilateral airspace groundglass opacities in the appreciated upper lungs. IMPRESSION: Unremarkable neck CTA with no significant carotid or vertebral artery stenosis. [facility]-[id number] Procedure Note Interface, Radiology Results Incoming - 01/28/2018 7:36 PM CDT EXAMINATION: CT ANGIOGRAM NECK W WO CONTRAST CLINICAL HISTORY: STROKE COMPARISON: None. TECHNIQUE: Neck CTA with multi-planar MIP and volumetric rendering (3D) after bolus intravenous iodinated contrast administration was performed. All CT images were acquired using low-dose technique with automated exposure control. FINDINGS: There is normal contrast enhancement of the aortic arch and its proximal branch arteries with no significant stenosis or occlusion. There is normal contrast enhancement with no significant stenosis or occlusion along bilateral common, internal, and external carotid arteries. There is no significant stenosis according to the NASCET criteria (0%). There is normal contrast enhancement with no significant stenosis or occlusion along bilateral vertebral arteries. The right vertebral artery is dominant. No significant cervical spondylosis is appreciated. There is nonspecific bilateral airspace groundglass opacities in the appreciated upper lungs. IMPRESSION: Unremarkable neck CTA with no significant carotid or vertebral artery stenosis. [facility]-[id number] Performing Organization Address City/State/Zipcode Phone Number [facility] [address] [place] [address] * Lipid panel (01/28/2018 6:47 PM CDT) Cholesterol 117 <200 mg/dL [facility] DEPARTMENT OF PATHOLOGY AND GENOMIC MEDICINE Triglycerides 92 <150 mg/dL [facility] DEPARTMENT OF PATHOLOGY AND GENOMIC MEDICINE HDL cholesterol 50 >40 mg/dL [facility] DEPARTMENT OF PATHOLOGY AND GENOMIC MEDICINE LDL cholesterol 64Comment: Result obtained by <100 mg/dL [facility] DEPARTMENT OF direct LDL measurement PATHOLOGY AND GENOMIC MEDICINE Lipid panel SeeBelow [facility] DEPARTMENT OF interpretation Comment: PATHOLOGY AND Total Cholesterol GENOMIC MEDICINE (mg/dL) <200 Desirable 200-239Borderline -high >=240High Triglycerides (mg/dL) <150 Normal 150-199Borderline -high 200-499High >=500Very high HDL Cholesterol (mg/dL) <40Low (male) <40Low (female) LDL Cholesterol (mg/dL) <100 Optimal 100-129Near or above optimal 130-159Borderline -high 160-189High >=190Very high Risk Catergories that modify LDL goals. Risk Catergories LDL goal (mg/dL) CHD and CHD risk equivalent<100 (10-year risk >20%) Multiple (2+) risk factors <130 (10-year risk=<20%) 0-1 risk factors <160 (<10-year risk) Defining levels of lipids in metabolic syndrome Triglycerides >=150 mg/dL HDL Cholesterol Men <40 mg/dL Women <40 mg/dL Non-HDL cholesterol is a second target for therapy in persons with high triglycerides (>=200 mg/dL) Specimen Plasma specimen Performing Organization Address City/State/Zipcode Phone Number [facility] DEPARTMENT OF [address] [place] [address] PATHOLOGY AND GENOMIC MEDICINE * CT Upper Extremity Wo Left (01/28/2018 6:27 PM CDT) Only the most recent of 2 results within the time period is included. Narrative Performed At EXAMINATION:CT UPPER EXTREMITY WO LEFT HM [facility] CLINICAL HISTORY:Fracturehumerus TECHNIQUE:Axial images ofleft humerus without contrast.Images were acquired in bone and soft tissuealgorithm with thin sections and multiplanar reformats archived and interpreted.3-D volume rendered CT reconstructions on a postprocessing workstation at the acquisition scanner under concurrent supervision also archived and interpreted. .All CT images were acquired using radiation dose lowering technique with automated exposure control and iterative reconstruction. COMPARISON:CT, 12/29/2017 IMPRESSION: 1.There appears to be greater degree of osteolysis of the greater tuberosity lateral cortex and lateral half of the humeral head compared to prior, suspicious for progression of osteomyelitis. The osteolysis involves the entirety of the greater tuberosity, and extends to the top of the humeral head just lateral to midline. 2.A subtle focus of cortical osteolysis is noted in the articulating surface of the humeral head, seen on series 11 image 48, measuring up to 7 mm transverse, which is new from prior, and suspicious for extension of osteomyelitis. 3.Remaining visualized bones appear intact and well maintained. 4.Diffuse groundglass opacity throughout the visualized left lung likely interstitial edema from volume overload or CHF, given the presence of an AICD, cardiomegaly, and hemodialysis catheter. 5.Soft tissue edema at the site of osteolysis. No soft tissue gas or focal fluid collection identified to indicate an abscess. SUMMARY: Progression of osteomyelitis locally at the greater tuberosity, and additionally, a new small focus of cortical loss in the articular surface of the humeral head suspicious for extension of osteomyelitis. [facility]-[id number] Procedure Note Interface, Radiology Results Incoming - 01/28/2018 7:10 PM CDT EXAMINATION: CT UPPER EXTREMITY WO LEFT CLINICAL HISTORY: Fracture humerus TECHNIQUE: Axial images of left humerus without contrast. Images were acquired in bone and soft tissue algorithm with thin sections and multiplanar reformats archived and interpreted. 3-D volume rendered CT reconstructions on a postprocessing workstation at the acquisition scanner under concurrent supervision also archived and interpreted. . All CT images were acquired using radiation dose lowering technique with automated exposure control and iterative reconstruction. COMPARISON: CT, 12/29/2017 IMPRESSION: 1. There appears to be greater degree of osteolysis of the greater tuberosity lateral cortex and lateral half of the humeral head compared to prior, suspicious for progression of osteomyelitis. The osteolysis involves the entirety of the greater tuberosity, and extends to the top of the humeral head just lateral to midline. 2. A subtle focus of cortical osteolysis is noted in the articulating surface of the humeral head, seen on series 11 image 48, measuring up to 7 mm transverse, which is new from prior, and suspicious for extension of osteomyelitis. 3. Remaining visualized bones appear intact and well maintained. 4. Diffuse groundglass opacity throughout the visualized left lung likely interstitial edema from volume overload or CHF, given the presence of an AICD, cardiomegaly, and hemodialysis catheter. 5. Soft tissue edema at the site of osteolysis. No soft tissue gas or focal fluid collection identified to indicate an abscess. SUMMARY: Progression of osteomyelitis locally at the greater tuberosity, and additionally, a new small focus of cortical loss in the articular surface of the humeral head suspicious for extension of osteomyelitis. [facility]-[id number] Performing Organization Address City/State/Zipcode Phone Number [facility] [address] [place] [address] * CTA Head W Wo Contrast (01/28/2018 5:30 PM CDT) Narrative Performed At EXAM: CT ANGIOGRAM HEAD [facility] WO [facility] CLINICAL HISTORY: STROKE TECHNIQUE:Imaging of the intracranial circulation was obtained from the skull base to the vertex during the arterial phase of enhancement. Postprocessing was performed with MIP multiplanar and 3D reconstructed images. CT scans are performed using radiation dose reduction techniques. Technical factors are evaluated and adjusted to ensure appropriate moderation of exposure. Automated dose management technology is applied to adjust radiation exposure while achieving a diagnostic quality image. COMPARISON:CT brain, same day FINDINGS: No hemodynamically significant stenosis is identified of the intracranial internal carotid arteries, middle cerebral arteries, anterior cerebral arteries, intracranial vertebral arteries, basilar artery or posterior cerebral arteries. Patient is right vertebral artery dominant. There is no aneurysmal dilatation or vascular malformation of the rampart of Diamond. The major dural sinuses are opacified normally. There are no gross brain parenchymal abnormalities. There is no midline shift, hydrocephalus or extra-axial fluid collection. Soft tissue shows no evidence of laceration or hematoma. There is no air-fluid level in the sinuses. Osseous calvarium is intact. IMPRESSION: 1.No hemodynamically significant narrowing of the rampart of Diamond vessels. [facility]-[id number] Procedure Note Interface, Radiology Results Incoming - 01/28/2018 7:49 PM CDT EXAM: CT ANGIOGRAM HEAD W WO CONTRAST CLINICAL HISTORY: STROKE TECHNIQUE: Imaging of the intracranial circulation was obtained from the skull base to the vertex during the arterial phase of enhancement. Postprocessing was performed with MIP multiplanar and 3D reconstructed images. CT scans are performed using radiation dose reduction techniques. Technical factors are evaluated and adjusted to ensure appropriate moderation of exposure. Automated dose management technology is applied to adjust radiation exposure while achieving a diagnostic quality image. COMPARISON: CT brain, same day FINDINGS: No hemodynamically significant stenosis is identified of the intracranial internal carotid arteries, middle cerebral arteries, anterior cerebral arteries, intracranial vertebral arteries, basilar artery or posterior cerebral arteries. Patient is right vertebral artery dominant. There is no aneurysmal dilatation or vascular malformation of the rampart of Diamond. The major dural sinuses are opacified normally. There are no gross brain parenchymal abnormalities. There is no midline shift, hydrocephalus or extra-axial fluid collection. Soft tissue shows no evidence of laceration or hematoma. There is no air-fluid level in the sinuses. Osseous calvarium is intact. IMPRESSION: 1. No hemodynamically significant narrowing of the rampart of Diamond vessels. [facility]-[id number] Performing Organization Address City/State/Zipcode Phone Number [facility] [address] [place] [address] * CT Chest Wo Contrast (01/28/2018 4:55 PM CDT) Narrative Performed At EXAMINATION: [facility] CT CHEST WO CONTRAST CLINICAL HISTORY: sob TECHNIQUE:Multiple axial images of the chest were obtained without intravenous contrast. The lack of intravenous contrast reduces the sensitivity of detecting solid organ disease and evaluating vasculature. Sagittal and coronal computerized reformatted images were also obtained. CT scans are performed using radiation dose reduction techniques. Technical factors are evaluated and adjusted to ensure appropriate moderation of exposure. Automated dose management technology is applied to adjust radiation exposure while achieving a diagnostic quality image. COMPARISON: Portable chest x-ray 12/29/2017 IMPRESSION: 1.Prominent but not pathologically enlarged left axillary nodes are nonspecific and may be reactive. Shotty anterior mediastinal/prevascular nodes are also nonspecific. There is a confluent opacity in the right hilar region, although unclear whether this is related to dilated/tortuous vessels or a mass. Contrast enhanced scan can be obtained as indicated. 2.Limited evaluation of the upper abdomen is grossly unremarkable. 3.Diffuse bilateral groundglass opacity and septal thickening with subpleural sparing. Pulmonary edema is favored. Infectious/inflammatory process should be excluded clinically. 4.Heart is enlarged. 5.Left proximal humeral fracture reidentified. [facility]-[id number] Procedure Note Interface, Radiology Results Incoming - 01/28/2018 5:13 PM CDT EXAMINATION: CT CHEST WO CONTRAST CLINICAL HISTORY: sob TECHNIQUE: Multiple axial images of the chest were obtained without intravenous contrast. The lack of intravenous contrast reduces the sensitivity of detecting solid organ disease and evaluating vasculature. Sagittal and coronal computerized reformatted images were also obtained. CT scans are performed using radiation dose reduction techniques. Technical factors are evaluated and adjusted to ensure appropriate moderation of exposure. Automated dose management technology is applied to adjust radiation exposure while achieving a diagnostic quality image. COMPARISON: Portable chest x-ray 12/29/2017 IMPRESSION: 1. Prominent but not pathologically enlarged left axillary nodes are nonspecific and may be reactive. Shotty anterior mediastinal/prevascular nodes are also nonspecific. There is a confluent opacity in the right hilar region, although unclear whether this is related to dilated/tortuous vessels or a mass. Contrast enhanced scan can be obtained as indicated. 2. Limited evaluation of the upper abdomen is grossly unremarkable. 3. Diffuse bilateral groundglass opacity and septal thickening with subpleural sparing. Pulmonary edema is favored. Infectious/inflammatory process should be excluded clinically. 4. Heart is enlarged. 5. Left proximal humeral fracture reidentified. [facility]-[id number] Performing Organization Address City/State/Zipcode Phone Number [facility] [address] [place] [address] * Keppra (Levetiracetam) level (01/28/2018 8:00 AM CDT) Levetiracetam 16 12 - 46 ug/mL [facility] Comment: INTERPRETIVE INFORMATION: Keppra (Levetiracetam) Therapeutic Range:12-46 ug/mL Toxic: Not well Established Pharmacokinetics of levetiracetam are affected by renal function. Adverse effects may include somnolence, weakness, headache and vomiting. This levetiracetam (Keppra) immunoassay uses the [employer] reagents, which has known cross-reactivity with the drug brivaracetam (Briviact) and may report inaccurate results. Patients transitioning from levetiracetam to brivaracetam or those who are using both medications should not monitor drug concentrations with the [employer] assay. These patients should be monitored using a validated chromatographic methodology that distinguishes between drugs to determine drug concentrations. Performed by [facility], [address] [place] [address] [phone] [email or web address] Brito MD - Lab. Director Specimen Serum Performing Organization Address [facility] Cent[facility]ode Phone Number [facility] LABORATORY [address] [place] [address] * Transfuse RBC (01/27/2018 9:20 PM CDT) Only the most recent of 5 results within the time period is included. * Hepatitis B surface antigen (01/27/2018 6:20 PM CDT) Only the most recent of 2 results within the time period is included. Hepatitis B surface Ag Non-reactive Non-reactive [facility] DEPARTMENT OF PATHOLOGY AND GENOMIC MEDICINE Specimen Blood Performing Organization Address City/[facility]/Zipcode Phone Number [facility] DEPARTMENT OF [address] [place], [place] [id number] PATHOLOGY AND GENOMIC MEDICINE * Pv duplex venous upper extremity (01/27/2018 2:47 PM CDT) Only the most recent of 2 results within the time period is included. Narrative Performed At [facility] Vascular Ultrasound Laboratory Upper Extremity Venous Report [id number] [facility] [facility], [place] [address] Pat.Name:ROSALBA MATTManisha Ponce.ID:[id number] .Date: 01/27/2018Refer.MD:REGINALD FIGUEROA MD Exam Time: 2:29:00 PMStudy Type:UE Venous DOBAge:1985,32Y Sex: FEMALE Sonogrphr: KATHY Robertson RCS Pat. Stat.:Inpatient Room:[place] [address] TapeVol: PATRICIA CPT - 4: 07011 Echo Event ID:[id number] Order ID:[id number] Reason for Study:Left arm swelling and pain, evaluate for DVT. History of CHF, ESRD on HD, HTN, DM. Procedures:Colorflow, Grayscale/2D, Pulsed wave Doppler Race:B SUMMARY: DUPLEX SCAN OBSERVATIONS Right Left IJNormal Normal SubclavianNormal Normal Axillary Normal Brachial Normal Basilic Normal Cephalic Normal RIGHT:Normal findings of the internal jugular and subclavian veins. LEFT: There is normal compressibility and no evidence of echogenic material noted within the lumen of the visualized veins. Color flow and Doppler signals are normal. PRELIMINARY FINDINGS 1. No evidence of venous thrombosis of the visualized veins. PHYSICIAN INTERPRETATION Venous examination of the left upper extremity and neck demonstrated no evidence of venous thrombosis. Signed 01/27/2018 06:56 PM Caleb Pulliam MD, RPVI Procedure Note Interface, Radiology Results In - 01/27/2018 6:56 PM CDT Vascular Ultrasound Laboratory Upper Extremity Venous Report [address] [place] [address] Pat.Name: SONAM BERMEO Pat.ID: [id number] St.Date: 01/27/2018 Refer.MD: REGINALD FIGUEROA MD Exam Time: 2:29:00 PM Study Type:UE Venous Age: 9 1985,32Y Sex: FEMALE Sonogrphr: KATHY Robertson RCS Pat. Stat.:Inpatient Room: [place] [address] Tape Vol: PATRICIA, CPT - 4: 92979 Echo Event ID:[id number] Order ID: [id number] Reason for Study:Left arm swelling and pain, evaluate for DVT. History of CHF, ESRD on HD, HTN, DM. Procedures:Colorflow, Grayscale/2D, Pulsed wave Doppler Race: B SUMMARY: DUPLEX SCAN OBSERVATIONS Right Left IJ Normal Normal Subclavian Normal Normal Axillary Normal Brachial Normal Basilic Normal Cephalic Normal RIGHT: Normal findings of the internal jugular and subclavian veins. LEFT: There is normal compressibility and no evidence of echogenic material noted within the lumen of the visualized veins. Color flow and Doppler signals are normal. PRELIMINARY FINDINGS 1. No evidence of venous thrombosis of the visualized veins. PHYSICIAN INTERPRETATION Venous examination of the left upper extremity and neck demonstrated no evidence of venous thrombosis. Signed 01/27/2018 06:56 PM Caleb Pulliam MD, VI Performing Organization Address City/State/Zipcode Phone Number [facility] [address] [place] [address] * Pv carotid duplex (01/27/2018 2:28 PM CDT) Narrative Performed At [facility] Vascular Ultrasound Laboratory Carotid Artery Duplex Report [address] [place] [address] For software quality assurance specialist purposes, the categorization of the degree of the stenosis of this exam is based on criteria described in the IAC carotid stenosis grading white paper( www.intersocietal.org/Vascular) and Neli Kilgore., Yoan Cruz., et al. Carotid artery stenosis: murillo-scale and Doppler US diagnosis--Society of Radiologists in Ultrasound Consensus Conference. Radiology. 2003 Nov; 229(2):340-6. Pat.Name:SONAM BERMEO Pat.ID:[id number] .Date: 01/27/2018Refer.MD:REGINALD FIGUEROA MD Exam Time: 2:12:00 PMStudy Type:Carotid DOBAge:1985,32Y Sex: FEMALE Sonogrphr: Nicholas Reynoso, KATHY, NOEMY Pat. Stat.:Inpatient Room:[place] [address] A TapeVol: CPT PATRICIA - 4: 25127 Echo Event ID:[id number] Order ID:[id number] Reason for Study:Concern for clot, patient had carotid Doppler saturday. History of CHF, ESRD on HD, HTN, DM. Procedures:Colorflow, Grayscale/2D, Pulsed wave Doppler Race:B SUMMARY: PHYSICAL ASSESSMENT BloodPulsesCarotid Pressure Carotid TemporalBruit Right Leg 137/105 ++0 Left ___ ++0 CAROTID ARTERY SCAN RIGHT:There is smooth intimal lining in the common carotid ,bulb, internal and external carotid artery. Color flow is normal. There is antegrade flow noted in the vertebral artery. PRELIMINARY FINDINGS 1. Right carotid artery examination demonstrates no evidence of plaque or occlusive disease. PHYSICIAN INTERPRETATION Unilateral carotid duplex examination demonstrated no atherosclerotic plaque in the right bulb. MEASUREMENTS: DOPPLER Right CCA Dist CCA Dist PSV56.4 cm/sCCA Dist EDV20.6 cm/s Right CCA Mid CCA Mid PSV 65.1 cm/sCCA Mid EDV 18.8 cm/s Right CCA Prox CCA Prox PSV72.1 cm/sCCA Prox EDV19.7 cm/s Right ECA Prox ECA Prox PSV41.7 cm/sECA Prox EDV 4.7 cm/s Right ICA Dist ICA Dist PSV54.6 cm/Maribel Dist EDV24.9 cm/s Right ICA Mid ICA Mid PSV 64.2 cm/Maribel Mid EDV 35.4 cm/s Right ICA Prox ICA Prox PSV61.6 cm/Maribel Prox EDV24.1 cm/s Right Vertebral Vertebral PSV 44.1 cm/sVertebral EDV 24.1 cm/s Right Subclavian Subclavian PSV 100 cm/sSubclavian EDV 0 cm/s Right ICA/CCA Ratio ICA/CCA PSV0.946 Signed 01/27/2018 07:02 PM Caleb Pulliam MD, RPVI Procedure Note Interface, Radiology Results In - 01/27/2018 7:03 PM CDT Vascular Ultrasound Laboratory Carotid Artery Duplex Report [address] [place] [address] For software quality assurance specialist purposes, the categorization of the degree of the stenosis of this exam is based on criteria described in the IAC carotid stenosis grading white paper( www.intersocietal.org/Vascular) and Neli Kilgore., Yoan Cruz., et al. Carotid artery stenosis: murillo-scale and Doppler US diagnosis--Society of Radiologists in Ultrasound Consensus Conference. Radiology. 2003 Nov; 229(2):340-6. Pat.Name: SONAM BERMEO [facility].ID: [id number] .Date: 01/27/2018 Refer.MD: REGINALD FIGUEROA MD Exam Time: 2:12:00 PM Study Type:Carotid Age: 9 1985,32Y Sex: FEMALE Sonogrphr: KATHY Robertson, NOEMY Pat. Stat.:Inpatient Room: [address] Vol: PATRICIA, CPT - 4: 67269 Echo Event ID:[id number] Order ID: [id number] Reason for Study:Concern for clot, patient had carotid Doppler saturday. History of CHF, ESRD on HD, HTN, DM. Procedures:Colorflow, Grayscale/2D, Pulsed wave Doppler Race: B SUMMARY: PHYSICAL ASSESSMENT Blood Pulses Carotid Pressure Carotid Temporal Bruit Right Leg 137/105 + + 0 Left ___ + + 0 CAROTID ARTERY SCAN RIGHT: There is smooth intimal lining in the common carotid ,bulb, internal and external carotid artery. Color flow is normal. There is antegrade flow noted in the vertebral artery. PRELIMINARY FINDINGS 1. Right carotid artery examination demonstrates no evidence of plaque or occlusive disease. PHYSICIAN INTERPRETATION Unilateral carotid duplex examination demonstrated no atherosclerotic plaque in the right bulb. MEASUREMENTS: DOPPLER Right CCA Dist CCA Dist PSV 56.4 cm/s CCA Dist EDV 20.6 cm/s Right CCA Mid CCA Mid PSV 65.1 cm/s CCA Mid EDV 18.8 cm/s Right CCA Prox CCA Prox PSV 72.1 cm/s CCA Prox EDV 19.7 cm/s Right ECA Prox ECA Prox PSV 41.7 cm/s ECA Prox EDV 4.7 cm/s Right ICA Dist ICA Dist PSV 54.6 cm/s ICA Dist EDV 24.9 cm/s Right ICA Mid ICA Mid PSV 64.2 cm/s ICA Mid EDV 35.4 cm/s Right ICA Prox ICA Prox PSV 61.6 cm/s ICA Prox EDV 24.1 cm/s Right Vertebral Vertebral PSV 44.1 cm/s Vertebral EDV 24.1 cm/s Right Subclavian Subclavian PSV 100 cm/s Subclavian EDV 0 cm/s Right ICA/CCA Ratio ICA/CCA PSV 0.946 Signed 01/27/2018 07:02 PM Caleb Pulliam MD, RPVI Performing Organization Address [facility]/Zipcode Phone Number [facility] [address] [place] [address] * Lactic acid level, SEPSIS - Now and repeat 2x every 3 hours (01/27/2018 6:34 AM CDT) Only the most recent of 2 results within the time period is included. Lactic acid 1.8 0.5 - 2.2 mmol/L [facility] DEPARTMENT OF PATHOLOGY AND GENOMIC MEDICINE Specimen Blood Performing Organization Address [facility]/Zipcode Phone Number [facility] DEPARTMENT OF [address] [place] [address] PATHOLOGY AND GENOMIC MEDICINE * Prepare RBC, 1 Units (01/27/2018 3:44 AM CDT) Only the most recent of 2 results within the time period is included. Product name Red Blood Cells -1, Leukored [facility] DEPARTMENT OF PATHOLOGY AND GENOMIC MEDICINE Unit number [id number] [facility] DEPARTMENT OF PATHOLOGY AND GENOMIC MEDICINE Product code [id number] [facility] DEPARTMENT OF PATHOLOGY AND GENOMIC MEDICINE Dispense status Transfused [facility] DEPARTMENT OF PATHOLOGY AND GENOMIC MEDICINE Blood expiration date [id number] [facility] DEPARTMENT OF PATHOLOGY AND GENOMIC MEDICINE Blood type code 5100 [facility] DEPARTMENT OF PATHOLOGY AND GENOMIC MEDICINE Blood type O POSITIVE [facility] DEPARTMENT OF PATHOLOGY AND GENOMIC MEDICINE Performing Organization Address City/[facility] Phone Number [facility] [place] [address] PATHOLOGY AND GENOMIC MEDICINE * Type and screen (01/27/2018 3:44 AM CDT) Only the most recent of 2 results within the time period is included. ABO grouping O [facility] DEPARTMENT OF PATHOLOGY AND GENOMIC MEDICINE Rh type POS [facility] DEPARTMENT OF PATHOLOGY AND GENOMIC MEDICINE Antibody screen (gel) NEG [facility] DEPARTMENT OF PATHOLOGY AND GENOMIC MEDICINE Specimen Blood Performing Organization Address [facility] Phone Number [facility] [place] [address] PATHOLOGY AND GENOMIC MEDICINE * XR Abdomen Acute Inc Chest (01/27/2018 1:58 AM CDT) Narrative Performed At EXAMINATION: XR ABDOMEN ACUTE INC CHEST RADIANT CLINICAL HISTORY: Chest painACS suspected, cpabdominal pain COMPARISON:None. IMPRESSION: Nonspecific, nonobstructive bowel gas pattern. No free intraperitoneal gas or air-fluid levels visualized. Right upper quadrant clips. Right central venous catheter terminates over the right atrium. Left port catheter terminates at the cavoatrial junction. Left chest wall device projects over the heart. The lungs are clear. No pleural effusion or pneumothorax. Cardiac silhouette appears prominent due in part to technique. Diffuse osteopenia. No acute osseous abnormalities. [facility]-[id number] Procedure Note Hm Interface, Radiology Results Incoming - 01/27/2018 2:06 AM CDT EXAMINATION: XR ABDOMEN ACUTE INC CHEST CLINICAL HISTORY: Chest pain ACS suspected, cp abdominal pain COMPARISON: None. IMPRESSION: Nonspecific, nonobstructive bowel gas pattern. No free intraperitoneal gas or air-fluid levels visualized. Right upper quadrant clips. Right central venous catheter terminates over the right atrium. Left port catheter terminates at the cavoatrial junction. Left chest wall device projects over the heart. The lungs are clear. No pleural effusion or pneumothorax. Cardiac silhouette appears prominent due in part to technique. Diffuse osteopenia. No acute osseous abnormalities. [facility]-[id number] Performing Organization Address City/State/Zipcode Phone Number [facility] [address] [place] [address] * Blood culture, aerobic & anaerobic (01/26/2018 12:50 AM CDT) Blood culture isolate No growth after 5 days of [facility] DEPARTMENT OF incubation. PATHOLOGY AND Comment: GENOMIC MEDICINE Specimen Information Specimen Source: Blood Specimen Site: Other Specimen Blood - Other- Detailed Description Required Performing Organization Address City/State/Zipcode Phone Number [facility] DEPARTMENT OF [address] [place] [address] PATHOLOGY AND GENOMIC MEDICINE * IR Tunneled Dialysis Catheter Replacement/Exchange (01/02/2018 9:37 AM CDT) Narrative Performed At Procedure: [facility] of tunneled [facility] Clinical History: End-stage renal disease. The patient's indwelling catheter is not functioning. Sedation: Versed and fentanyl were utilized for monitored conscious sedation during the procedure. The patient was transferred to the recovery room at the end of the procedure for further monitoring. Ycjb-fk-mzku time 15 minutes Anesthesia: Local Radiation dose: Ka,r=7 mGy Technique: After discussing the risks and benefits of the procedure and moderate conscious sedation with the patient she agreed to the procedure. All elements of maximal sterile barrier technique were followed. After prepping and draping the right chest, local anesthesia was administered around the catheter exit site. Utilizing blunt dissection the cuff was freed. An Amplatz guidewire was advanced through the indwelling 19 cm Glidepath tunneled dialysis catheter and the catheter removed. A 19 cm Arrow Edge dialysis catheter was then placed with its tip at the junction of the superior vena cava and right atrium. The lumens aspirated and injected easily. They were flushed with heparin. The skin exit site was closed with 2-0 silk suture. Complications: None Impression: Successful exchange of the patient's right internal jugular vein tunneled dialysis catheter as described above. Blood Loss: Less than 1 mL [facility]-[id number] Procedure Note Interface, Radiology Results Incoming - 01/02/2018 9:51 AM CDT Procedure: Change of tunneled dialysis catheter Clinical History: End-stage renal disease. The patient's indwelling catheter is not functioning. Sedation: Versed and fentanyl were utilized for monitored conscious sedation during the procedure. The patient was transferred to the recovery room at the end of the procedure for further monitoring. Qzkp-lh-baqc time 15 minutes Anesthesia: Local Radiation dose: Ka,r=7 mGy Technique: After discussing the risks and benefits of the procedure and moderate conscious sedation with the patient she agreed to the procedure. All elements of maximal sterile barrier technique were followed. After prepping and draping the right chest, local anesthesia was administered around the catheter exit site. Utilizing blunt dissection the cuff was freed. An Amplatz guidewire was advanced through the indwelling 19 cm Glidepath tunneled dialysis catheter and the catheter removed. A 19 cm Arrow Edge dialysis catheter was then placed with its tip at the junction of the superior vena cava and right atrium. The lumens aspirated and injected easily. They were flushed with heparin. The skin exit site was closed with 2-0 silk suture. Complications: None Impression: Successful exchange of the patient's right internal jugular vein tunneled dialysis catheter as described above. Blood Loss: Less than 1 mL [facility]-[id number] Performing Organization Address [facility] Phone Number [facility] [address] [place] [address] * Vancomycin level, random (01/01/2018 4:38 AM CDT) Only the most recent of 2 results within the time period is included. Vancomycin, random SEE COMMENT ug/mL [facility] DEPARTMENT OF Comment: PATHOLOGY AND Footnote--------- GENOMIC MEDICINE Specimen integrity questionable.Recollect requested for VANCT.APPLE ISO/M3SW notified by KXG at01/01/201806:39 . Specimen Serum Performing Organization Address [facility] Phone Number [facility] DEPARTMENT OF [address] [place] [phone] PATHOLOGY AND GENOMIC MEDICINE * Echocardiogram complete w contrast and 3D if needed (12/30/2017 9:36 AM CDT) Narrative Performed At [facility] Echocardiography Report [address] [place] [address] Pat.Name:SONAM BERMEO Lili Ponce.ID:[id number] .Date: 12/30/2017 Refer.MD:JAYDEN JANSEN MD Exam Time: 9:20:00 AMStudy Type:Routine Echo Height:63inBSA: 1.73 m2 DOBAge:1985,32Y Sex: FEMALE BP:111/79HR: 103 bpm Sonogrphr: Aby Gloria, RDCS, RVTPat. Stat.:Inpatient Room:[address] Status:Final Echo Event ID:[id number] Order ID:[id number] Reason for Study:CHF History / Clinical:Congestive Heart Failure, Diabetes, Hypertension, ESRD Procedures:2D Echo, Colorflow Doppler, Portable, Intravenous Optison Contrast SUMMARY: LV EF is severely depressed with low CO. RV systolic function is moderately depressed. Severe eccentric mitral regurgitation Moderate tricuspid regurgitation LV filling pressure is elevated. Estimated PA systolic pressure is 46 mmHg, assuming a mean RAP of 10 mmHg. FINDINGS: LV: LV size is mildly enlarged. There is moderate eccentric LV hypertrophy.LV EF is severely depressed. Global hypokinesis.Estimated EF is 25-29%. RV: RV size is normal. RV systolic function is moderately depressed. LA: LA volume is severely enlarged. RA: RA volume is enlarged. A catheter or pacemaker wire is seen. AO: Aortic root diameter is normal. KEREN: No pericardial effusion. AV: Focal calcification of AV leaflets. MV: Mild thickening of mitral leaflets. Leaflet motion: tethered.Severe mitral regurgitation. Etiology of MR is secondaryto LV dysfunction and remodeling. Eccentric mitralregurgitant jet directed posteriorly and laterally. Estimatedregurgitant fraction is 57 %. Estimated regurgitantvolume is 33 ml. PV: No structural PV abnormalities noted. Moderate pulmonic regurgitation. TV: No structural TV abnormalities noted. Moderate tricuspid regurgitation Higuera: LV relaxation is impaired. LV filling pressure is elevated. Other:Estimated PA systolic pressure is 46 mmHg, assuming a mean RAPof 10 mmHg. MEASUREMENTS: 2D Parasternal Long [place] LVOT 1.8 cmIVSd 1 cm LA Ds4.4 cmLVPWd0.8 cm Ao Rtd 2.5 cmIndex1.5 cm/m LV Xhhq968 g(87-129) LVIDd5.6 cmIndex3.2 cm/m LVM Cthcu252.4 g/m2 LVIDs5 cmRWT0.3 LV%fs 10.7 % LV EF Biplane DCNGU843.6 ml (59-136) Hzzwi499.8 ml/m LV SV 57.6 ml PCDPB314 qyYuqyg22.5 ml/m LV EF 29 %(55-75) LA Sng Plane LA Area 30.7 cm2(8.8-23.4) LA Vol 121 ml Index70 ml/m LA LngAx 6.6 cm DOPPLER LVOT For Flow LVOT Area2.5 cm2 LVOT SV 25.5 ml LVOTpkVel 78.2 cm/sHR 103.4 bpm LVOTpkPG 2.4 mmHgLVOT CO2.6 l/min LVOTmnPG 1 mmHgLVOT CI1.5 l/m/m2 LVOT TVI10 cm MMODE tapse TAPS Dim 1.3 cm Signed 12/30/2017 02:41 PM Federico Rogers M.D. Procedure Note Interface, Radiology Results In - 12/30/2017 2:42 PM CDT Echocardiography Report [address] [address] Pat.Name: SONAM BERMEO.ID: [id number] .Date: 12/30/2017 Refer.MD: JAYDEN JANSEN MD Exam Time: 9:20:00 AM Study Type:Routine Echo Height: 63in BSA: 1.73 m2 Age: 9 1985,32Y Sex: FEMALE BP: 111/79 HR: 103 bpm Sonogrphr: Aby Castro, RDCS, RVT Pat. Stat.:Inpatient Room: [address] Study Status:Final Echo Event ID:[id number] Order ID: [id number] Reason for Study:CHF History / Clinical:Congestive Heart Failure, Diabetes, Hypertension, ESRD Procedures:2D Echo, Colorflow Doppler, Portable, Intravenous Optison Contrast SUMMARY: LV EF is severely depressed with low CO. RV systolic function is moderately depressed. Severe eccentric mitral regurgitation Moderate tricuspid regurgitation LV filling pressure is elevated. Estimated PA systolic pressure is 46 mmHg, assuming a mean RAP of 10 mmHg. FINDINGS: LV: LV size is mildly enlarged. There is moderate eccentric LV hypertrophy. LV EF is severely depressed. Global hypokinesis. Estimated EF is 25-29%. RV: RV size is normal. RV systolic function is moderately depressed. LA: LA volume is severely enlarged. RA: RA volume is enlarged. A catheter or pacemaker wire is seen. AO: Aortic root diameter is normal. KEREN: No pericardial effusion. AV: Focal calcification of AV leaflets. MV: Mild thickening of mitral leaflets. Leaflet motion: tethered. Severe mitral regurgitation. Etiology of MR is secondary to LV dysfunction and remodeling. Eccentric mitral regurgitant jet directed posteriorly and laterally. Estimated regurgitant fraction is 57 %. Estimated regurgitant volume is 33 ml. PV: No structural PV abnormalities noted. Moderate pulmonic regurgitation. TV: No structural TV abnormalities noted. Moderate tricuspid regurgitation Higuera: LV relaxation is impaired. LV filling pressure is elevated. Other: Estimated PA systolic pressure is 46 mmHg, assuming a mean RAP of 10 mmHg. MEASUREMENTS: 2D Parasternal Long [place] LVOT 1.8 cm IVSd 1 cm LA Ds 4.4 cm LVPWd 0.8 cm Ao Rtd 2.5 cm Index 1.5 cm/m LV Mass 191 g (87-129) LVIDd 5.6 cm Index 3.2 cm/m LVM Index 110.4 g/m2 LVIDs 5 cm RWT 0.3 LV%fs 10.7 % LV EF Biplane LVEDV 198.6 ml (59-136) Index 114.8 ml/m LV SV 57.6 ml LVESV 141 ml Index 81.5 ml/m LV EF 29 % (55-75) LA Sng Plane LA Area 30.7 cm2 (8.8-23.4) LA Vol 121 ml Index 70 ml/m LA LngAx 6.6 cm DOPPLER LVOT For Flow LVOT Area 2.5 cm2 LVOT SV 25.5 ml LVOTpkVel 78.2 cm/s HR 103.4 bpm LVOTpkPG 2.4 mmHg LVOT CO 2.6 l/min LVOTmnPG 1 mmHg LVOT CI 1.5 l/m/m2 LVOT TVI 10 cm MMODE tapse TAPS Dim 1.3 cm Signed 12/30/2017 02:41 PM Federico Rogers M.D. Performing Organization Address City/[facility]/Zipcode Phone Number [facility] [address] [place] [address] * Pv duplex venous lower extremity (12/29/2017 2:10 PM CDT) Narrative Performed At [facility] Vascular Ultrasound Laboratory Lower Extremity Venous Report [address] [place] [address] Pat.Name:SONAM BERMEO Pat.ID:[id number] .Date: 12/29/2017 Refer.MD:JAYDEN JANSEN MD Exam Time: 1:53:00 PMStudy Type:LE Venous Height:63inWeight:153lb BSA: 1.73 m2 DOBAge:1985,32Y Sex: FEMALESonogrphr: Hugo Bliss RN, RVS Pat. Stat.:Inpatient Room:[facility] TapeVol: PM, CPT - 4: [address]7260 Echo Event ID:[id number] Order ID:[id number] Reason for Study:Bilateral leg edema. Procedures:Colorflow, Grayscale/2D, Pulsed wave Doppler Race:B SUMMARY: DUPLEX SCAN OBSERVATIONS Deep VeinsSuperficial Veins RightLeft RightLeft GSV (prox) NormalNormal CFV Normal Normal (above knee) Femoral Normal Normal GSV (dist) Normal Normal Profunda Normal Normal (below knee) Popliteal Normal Normal PT (prox) Normal NormalSSV Normal Normal PT (dist) Normal Normal Peroneal Normal Normal RIGHT:There is normal compressibility with no evidence of echogenic material noted within the lumen of the visualized veins. Colorflow and Doppler signals are normal. LEFT:There is normal compressibility with no evidence of echogenic material noted within the lumen of the visualized veins. Colorflow and Doppler signals are normal. PRELIMINARY FINDINGS 1. Normal venous duplex exam of the visualized veins. PHYSICIAN INTERPRETATION Venous examination of the both lower extremities demonstrated no evidence of venous thrombosis in the visualized veins.Normal compressibility and augmentation of all veins visualized. Signed 12/29/2017 05:43 PM Caleb Pulliam MD, RPVI Procedure Note Interface, Radiology Results In - 12/29/2017 5:43 PM CDT Vascular Ultrasound Laboratory Lower Extremity Venous Report [address] [address] Pat.Name: SONAM BERMEO Pat.ID: [id number] .Date: 12/29/2017 Refer.MD: JAYDEN JANSEN MD Exam Time: 1:53:00 PM Study Type:LE Venous Height: 63in Weight: 153lb BSA: 1.73 m2 Age: 9 1985,32Y Sex: FEMALE Sonogrphr: Hugo Bliss RN, RVS Pat. Stat.:Inpatient Room: [facility] Tape Vol: PM, CPT - 4: 66414 Echo Event ID:[id number] Order ID: [id number] Reason for Study:Bilateral leg edema. Procedures:Colorflow, Grayscale/2D, Pulsed wave Doppler Race: B SUMMARY: DUPLEX SCAN OBSERVATIONS Deep Veins Superficial Veins Right Left Right Left GSV (prox) Normal Normal CFV Normal Normal (above knee) Femoral Normal Normal GSV (dist) Normal Normal Profunda Normal Normal (below knee) Popliteal Normal Normal PT (prox) Normal Normal SSV Normal Normal PT (dist) Normal Normal Peroneal Normal Normal RIGHT: There is normal compressibility with no evidence of echogenic material noted within the lumen of the visualized veins. Colorflow and Doppler signals are normal. LEFT: There is normal compressibility with no evidence of echogenic material noted within the lumen of the visualized veins. Colorflow and Doppler signals are normal. PRELIMINARY FINDINGS 1. Normal venous duplex exam of the visualized veins. PHYSICIAN INTERPRETATION Venous examination of the both lower extremities demonstrated no evidence of venous thrombosis in the visualized veins. Normal compressibility and augmentation of all veins visualized. Signed 12/29/2017 05:43 PM Caleb Pulliam MD, RPVI Performing Organization Address City/State/Zipcode Phone Number [facility] [id number] [place] [address] * XR Shoulder 2+ Vw Left (12/28/2017 5:30 PM CDT) Narrative Performed At EXAMINATION:XR SHOULDER 2VW LEFT RADIANT CLINICAL HISTORY:shoulder surgery COMPARISON:None. IMPRESSION: There are recent postoperative changes involving left shoulder, with skin andre present. Region of the greater tuberosity appears to have been resected. A few flecks of bone are seen in that area. Glenohumeral joint and AC joint are intact. There is a portable Central venous catheter and transthoracic pacemaker present. [facility]-[id number] Procedure Note Interface, Radiology Results Incoming - 12/28/2017 5:54 PM CDT EXAMINATION: XR SHOULDER 2 VW LEFT CLINICAL HISTORY: shoulder surgery COMPARISON: None. IMPRESSION: There are recent postoperative changes involving left shoulder, with skin andre present. Region of the greater tuberosity appears to have been resected. A few flecks of bone are seen in that area. Glenohumeral joint and AC joint are intact. There is a portable Central venous catheter and transthoracic pacemaker present. [facility]-[id number] Performing Organization Address [facility] Phone Number [facility] [address] [place] [address] * US Renal (12/28/2017 1:35 PM CDT) Narrative Performed At EXAMINATION:US RENAL RADIANT CLINICAL HISTORY:hydroureter COMPARISON:06/04/2015 IMPRESSION: 1.There is no hydronephrosis. 2.Renal cortical echogenicity is increased suggesting medical renal disease. 3.Right kidney measures 10.2 x 4 x 3.8 cm. 4.Left kidney measures 11.3 x 4.5 x 4.8 cm. 5.Bladder is unremarkable. [facility]-[id number] Procedure Note Hm Interface, Radiology Results Incoming - 12/28/2017 2:43 PM CDT EXAMINATION: US RENAL CLINICAL HISTORY: hydroureter COMPARISON: 06/04/2015 IMPRESSION: 1. There is no hydronephrosis. 2. Renal cortical echogenicity is increased suggesting medical renal disease. 3. Right kidney measures 10.2 x 4 x 3.8 cm. 4. Left kidney measures 11.3 x 4.5 x 4.8 cm. 5. Bladder is unremarkable. [facility]-[id number] Performing Organization Address [facility] Phone Number [facility] [address] [place] [address] * Hemoglobin A1c (12/28/2017 5:00 AM CDT) Hemoglobin A1C 6.8 (H) 4.0 - 5.6 % [facility] DEPARTMENT OF Comment: PATHOLOGY AND HbA1c cutoffs for diagnosing GENOMIC MEDICINE diabetes: 4.0% - 5.6%=normal 5.7% - 6.4%=increased risk for diabetes (prediabetes) >=6.5%=diabetes Goals for glycemic control (ADA 2016) < 7.0%Target for non adults with diabetes. More or less stringent targets may be appropriate for individual patients. <7.5% Target for Children and adolescents with type 1 diabetes. Specimen Blood Performing Organization Address City/State/Zipcode Phone Number [facility] DEPARTMENT OF [address] [place] [address] PATHOLOGY AND GENOMIC MEDICINE * CT Abdomen Pelvis W Contrast (12/28/2017 3:58 AM CDT) Narrative Performed At EXAMINATION:CT ABDOMEN PELVIS W CONTRAST [facility] CLINICAL HISTORY:abd pain TECHNIQUE: Multiple axial images of the abdomen and pelvis were obtained following intravenous administration of iodinated contrast. Sagittal and coronal computerized reformatted images were also obtained. CT imaging was performed with iterative reconstruction technique and/or automated exposure control to reduce radiation dose. COMPARISON:06/03/2015 IMPRESSION: Small bilateral pleural effusions. Groundglass densities are seen of the lung bases, compatible with moderate vascular congestion/edema. Mild cardiomegaly. Left-sided cardiac device is seen with lead terminating over the sternum in the midline. Dialysis catheter tips are seen terminating in the right atrium. Patient is status post cholecystectomy. Liver is enlarged measuring 20.8 cm in length. Spleen, pancreas, adrenal glands are normal. Heterogeneous enhancement of the kidneys is seen bilaterally, suspicious for pyelonephritis or renal failure. Mild bilateral hydroureter. Wall thickening and edema of the bladder is seen, and correlation for cystitis is advised. Small ascites. No free intraperitoneal air. Wall thickening and edema of the sigmoid colon is seen. This may just reflect fluid shift/edema; correlation to exclude colitis is advised. Appendix is not seen. No gastrointestinal tract obstruction. Moderate anasarca. No acute osseous abnormalities. Groundglass density of the osseous structures is seen, which can be seen with underlying metabolic abnormality or renal osteodystrophy. CONCLUSION: Congestive heart failure is seen with mild cardiomegaly, moderate vascular congestion/edema and moderate anasarca. Heterogeneous enhancement of the kidneys is seen bilaterally, suspicious for pyelonephritis or renal failure. Wall thickening and edema in the bladder is seen, correlation for cystitis is advised. Wall thickening and edema of the sigmoid colon is seen, suggestive of fluid shift/edema. Correlation to exclude colitis is advised. [facility]-[id number] Procedure Note Hm Interface, Radiology Results Incoming - 12/28/2017 4:15 AM CDT EXAMINATION: CT ABDOMEN PELVIS W CONTRAST CLINICAL HISTORY: abd pain TECHNIQUE: Multiple axial images of the abdomen and pelvis were obtained following intravenous administration of iodinated contrast. Sagittal and coronal computerized reformatted images were also obtained. CT imaging was performed with iterative reconstruction technique and/or automated exposure control to reduce radiation dose. COMPARISON: 06/03/2015 IMPRESSION: Small bilateral pleural effusions. Groundglass densities are seen of the lung bases, compatible with moderate vascular congestion/edema. Mild cardiomegaly. Left-sided cardiac device is seen with lead terminating over the sternum in the midline. Dialysis catheter tips are seen terminating in the right atrium. Patient is status post cholecystectomy. Liver is enlarged measuring 20.8 cm in length. Spleen, pancreas, adrenal glands are normal. Heterogeneous enhancement of the kidneys is seen bilaterally, suspicious for pyelonephritis or renal failure. Mild bilateral hydroureter. Wall thickening and edema of the bladder is seen, and correlation for cystitis is advised. Small ascites. No free intraperitoneal air. Wall thickening and edema of the sigmoid colon is seen. This may just reflect fluid shift/edema; correlation to exclude colitis is advised. Appendix is not seen. No gastrointestinal tract obstruction. Moderate anasarca. No acute osseous abnormalities. Groundglass density of the osseous structures is seen, which can be seen with underlying metabolic abnormality or renal osteodystrophy. CONCLUSION: Congestive heart failure is seen with mild cardiomegaly, moderate vascular congestion/edema and moderate anasarca. Heterogeneous enhancement of the kidneys is seen bilaterally, suspicious for pyelonephritis or renal failure. Wall thickening and edema in the bladder is seen, correlation for cystitis is advised. Wall thickening and edema of the sigmoid colon is seen, suggestive of fluid shift/edema. Correlation to exclude colitis is advised. [facility]-[id number] Performing Organization Address City/State/Zipcode Phone Number [facility] [address] [place] [address] * Urinalysis screen and microscopy, with reflex to culture (12/28/2017 3:30 AM CDT) Specimen site Clean catch [facility] DEPARTMENT OF PATHOLOGY AND GENOMIC MEDICINE Color, UA Yellow [facility] DEPARTMENT OF PATHOLOGY AND GENOMIC MEDICINE Appearance, UA Hazy [facility] DEPARTMENT OF PATHOLOGY AND GENOMIC MEDICINE Specific gravity, UA 1.017 1.001 - 1.035 [facility] DEPARTMENT OF PATHOLOGY AND GENOMIC MEDICINE pH, UA 6.0 5.0 - 8.5 [facility] DEPARTMENT OF PATHOLOGY AND GENOMIC MEDICINE Protein, UA 3+ (A) Negative [facility] DEPARTMENT OF PATHOLOGY AND GENOMIC MEDICINE Glucose, UA Negative Negative [facility] DEPARTMENT OF PATHOLOGY AND GENOMIC MEDICINE Ketones, UA Negative Negative [facility] DEPARTMENT OF PATHOLOGY AND GENOMIC MEDICINE Bilirubin, UA Positive@UBIL (A) Negative [facility] DEPARTMENT OF PATHOLOGY AND GENOMIC MEDICINE Blood, UA Small (A) Negative [facility] DEPARTMENT OF PATHOLOGY AND GENOMIC MEDICINE Nitrite, UA Negative Negative [facility] DEPARTMENT OF PATHOLOGY AND GENOMIC MEDICINE Urobilinogen, UA <2.0 <2.0 [facility] DEPARTMENT OF PATHOLOGY AND GENOMIC MEDICINE Leukocyte esterase, UA Moderate (A) Negative [facility] DEPARTMENT OF PATHOLOGY AND GENOMIC MEDICINE Epithelial cells, UA 1 /HPF [facility] DEPARTMENT OF PATHOLOGY AND GENOMIC MEDICINE WBC, UA 129 (H) 0 - 4 /HPF [facility] DEPARTMENT OF PATHOLOGY AND GENOMIC MEDICINE RBC, UA 15 (H) 0 - 5 /HPF [facility] DEPARTMENT OF PATHOLOGY AND GENOMIC MEDICINE Bacteria, UA None seen None seen [facility] DEPARTMENT OF PATHOLOGY AND GENOMIC MEDICINE Yeast, UA Many (A) [facility] DEPARTMENT OF PATHOLOGY AND GENOMIC MEDICINE Yeast with pseudohyphae, None seen [facility] DEPARTMENT OF UA PATHOLOGY AND GENOMIC MEDICINE Hyaline casts, UA 18 /LPF [facility] DEPARTMENT OF PATHOLOGY AND GENOMIC MEDICINE Specimen Urine Performing Organization Address City/[facility]/Zipcode Phone Number [facility] DEPARTMENT OF [address] [place] [address] PATHOLOGY AND GENOMIC MEDICINE * Gram stain (12/28/2017 3:30 AM CDT) Gram stain result Rare WBC's [facility] DEPARTMENT OF Rare Budding yeast PATHOLOGY AND Comment: GENOMIC MEDICINE Specimen Information Specimen Source: Urine Specimen Site: Clean catch Specimen Urine Performing Organization Address City/[facility]/Zipcode Phone Number [facility] DEPARTMENT OF [address] [place] [address] PATHOLOGY AND GENOMIC MEDICINE * Urine culture (12/28/2017 3:30 AM CDT) Urine culture isolate Marleen glabrata [facility] DEPARTMENT OF >10-5 cfu/ml PATHOLOGY AND The performance GENOMIC MEDICINE characteristics of this assay on this isolate were validated by the Microbiology Laboratory at [facility].This source has not been approved by the U.S. Food and Drug Administration.The results are not intended to be used as the sole means for clinical diagnosis or patient management.The Microbiology Laboratory is authorized under the clinical Laboratory Improvement Amendments of 1988 (CLIA-88) to perform high complexity testing. (A) Comment: Specimen Information Specimen Source: Urine Specimen Site: Clean catch Urine culture isolate Gram positive betsy [facility] DEPARTMENT OF 10-2 cfu/ml PATHOLOGY AND (A) GENOMIC MEDICINE Specimen Urine Antibiotic Method Susceptibility Organism Micafungin BP 0.016 mcg/mL: Susceptible Marleen glabrata Amphotericin B BP 1 mcg/mL: Susceptible Marleen glabrata Posiconazole BP 1 mcg/mL Marleen glabrata Itraconazole BP 1.0 mcg/mL: Resistant Marleen glabrata Fluconazole BP 32 mcg/mL: Susceptible Marleen glabrata Performing Organization Address City/State/Zipcode Phone Number [facility] DEPARTMENT OF [address] [place] [address] PATHOLOGY AND GENOMIC MEDICINE after 02/22/2017 Insurance Payer Benefit Subscriber ID Type Phone Address Plan / Group GRISEL RECINOS xxxxxxxxx [facility] [employer] [facility] Advance Directives Patient has advance care planning documents, and code status on file. For more i nformation, please contact: Pavel Roberts [address] [place] [id number] Date Inactivated Comments Code Status Date Activated 02/18/2018 8:23 PM Full Code 02/08/2018 4:32 PM Code Status decision reached by: Patient
--- OUTSIDE RECORDS SUMMARY | 2018-02-23 15:53 | XMS REPORT | Clinical Summary ---
Author Author KALYAN [facility] Address Unknown Phone Unavailable Care Team Providers Care Keyboard Instrument Tuner Name Role Phone LonnyGer Jacqueline PCP Allergies Comments Active Allergy Reactions Severity Noted Date Bruising Adhesive Hives, 10/22/2012 Itching Aspirin (Tartrazine Only) Hives 09/25/2012 Clonidine Hives 08/22/2016 Hydromorphone (Bulk) Nausea And 09/25/2012 Vomiting Fentanyl Hives 09/25/2012 Hydrocodone Nausea And 09/25/2012 Vomiting Latex 08/22/2016 Penicillins Hives 09/25/2012 Ketorolac Hives 09/25/2012 Tramadol Hives 09/25/2012 Ondansetron Hcl (Pf) Nausea And 09/25/2012 Vomiting Medications End Date Status Medication Sig Dispensed Refills Start Date Active morphine (MS CONTIN) 60 Take 60 mg by 0 MG 12 hr tablet mouth 2 (two) times daily. Active levothyroxine (SYNTHROID, Take 88 mcg 0 LEVOTHROID) 88 MCG tablet by mouth daily. Active ranitidine (ZANTAC) 300 Take 300 mg 0 MG capsule by mouth every evening. Active diphenhydrAMINE Take 25 mg by 0 (BENADRYL) 25 mg tablet mouth every night as needed. Active bisacodyl (DULCOLAX) 5 mg Take 5 mg by 0 EC tablet mouth daily as needed. Active erythromycin base Take 250 mg 0 (E-MYCIN) 250 MG tablet by mouth 4 (four) times daily. Active sucralfate (CARAFATE) 1 Take 1 g by 0 gram tablet mouth 4 (four) times daily. Active pantoprazole (PROTONIX) Take 40 mg by 0 40 MG tablet mouth daily. Active carvedilol (COREG) 25 MG Take 25 mg by 0 tablet mouth 2 (two) times daily with breakfast and dinner. Active loratadine (CLARITIN) 10 Take 10 mg by 0 mg tablet mouth daily. Active furosemide (LASIX) 40 MG Take 40 mg by 0 tablet mouth 2 (two) times daily. Active meclizine (ANTIVERT) 25 Take 25 mg by 0 MG tablet mouth 3 (three) times daily as needed. Active albuterol Take 2.5 mg 0 (PROVENTIL,VENTOLIN) 5 by mg/mL nebulizer solution nebulization every 6 (six) hours as needed for Wheezing. Active ipratropium-albuterol Take 3 mLs by 0 (DUO-NEB) 0.5 mg-3 mg(2.5 nebulization mg base)/3 mL nebulizer every 6 (six) solution hours as needed for Wheezing. Active insulin glargine (LANTUS) Inject 7 0 100 unit/mL injection Units subcutaneousl y nightly Use as directed . Active diphenoxylate-atropine Take 1 tablet 0 (LOMOTIL) 2.5-0.025 mg by mouth 4 per tablet (four) times daily as needed for Diarrhea. Active ferrous sulfate 325 (65 Take 325 mg 0 FE) MG tablet by mouth daily with breakfast. Active gabapentin (NEURONTIN) Take 300 mg 0 300 MG capsule by mouth 3 (three) times daily. Active LORazepam (ATIVAN) 2 MG Take 2 mg by 0 tablet mouth every 6 (six) hours as needed for Anxiety. Active levETIRAcetam (KEPPRA) Take 500 mg 0 500 MG tablet by mouth 2 (two) times daily. Active losartan (COZAAR) 50 MG Take 50 mg by 0 tablet mouth daily. Active fluticasone (FLONASE) 50 1 spray by 0 mcg/actuation nasal spray Nasal route 2 (two) times daily. Active budesonide-formoterol Inhale 1 puff 0 (SYMBICORT) 80-4.5 by mouth via 7 mcg/actuation inhaler inhaler 3 (three) times daily. Active B complex Take 1 tablet 0 [id number]-[id number]-zinc by mouth (DIALYVITE) [id number] daily. zg-lc-[id number]-mg Tab 01/14/2019 Active phenytoin (DILANTIN) 100 Take 1 60 capsule 0 MG ER capsule capsule (100 8 mg total) by mouth 2 (two) times daily. Active cinacalcet (SENSIPAR) 30 Take 1 tablet 30 tablet 3 MG tablet (30 mg total) 8 by mouth daily. Active clonazePAM (KLONOPIN) 0.5 Take 1 tablet 60 tablet 0 MG tablet (0.5 mg 8 total) by mouth 2 (two) times daily as needed for Anxiety. Max Daily Amount: 1 mg 01/14/2018 Discontinued promethazine (PHENERGAN) Take 25 mg by 0 25 MG tablet mouth every 6 (six) hours as needed. 01/14/2018 Discontinued metoprolol (LOPRESSOR) 25 Take 25 mg by 0 MG tablet mouth 2 (two) times daily. 01/14/2018 Discontinued hydrochlorothiazide Take 25 mg by 0 (HYDRODIURIL) 25 MG mouth daily. tablet 01/14/2018 Discontinued promethazine (PHENERGAN) Take 25 mg by 0 25 MG tablet mouth every 6 (six) hours as needed. 01/14/2018 Discontinued metoclopramide HCl Take 10 mg by 0 (REGLAN) 10 MG tablet mouth 4 (four) times daily as needed. 01/14/2018 Discontinued diazepam (VALIUM) 10 MG Take 10 mg by 0 tablet mouth every 6 (six) hours as needed. 01/14/2018 Discontinued digoxin (LANOXIN) 0.25 MG Take 250 mcg 0 tablet by mouth daily. 01/14/2018 Discontinued methocarbamol (ROBAXIN) Take 500 mg 0 500 MG tablet by mouth 4 (four) times daily. 01/14/2018 Discontinued metFORMIN (GLUCOPHAGE) Take 500 mg 0 500 MG tablet by mouth 2 (two) times daily with breakfast and dinner. 01/14/2018 Discontinued morphine (MSIR) 15 MG Take 15 mg by 0 tablet mouth every 4 (four) hours as needed for Pain. 01/14/2018 Discontinued LORazepam (ATIVAN) 1 MG Take 1 mg by 0 tablet mouth every 6 (six) hours as needed for Anxiety. 01/23/2018 Discontinued clonazePAM (KLONOPIN) 0.5 Take 0.5 mg 0 MG tablet by mouth 2 (two) times daily as needed for Anxiety. 01/14/2018 Discontinued diltiaZEM (CARDIZEM) 30 Take 30 mg by 0 MG tablet mouth 4 (four) times daily. 01/14/2018 Discontinued zaleplon (SONATA) 10 MG Take 10 mg by 0 capsule mouth nightly. 01/23/2018 Discontinued cinacalcet (SENSIPAR) 30 Take 30 mg by 0 MG tablet mouth daily. 01/14/2018 Discontinued ciclesonide (ALVESCO) 80 Inhale 1 puff 0 mcg/actuation inhaler by mouth via inhaler 2 (two) times daily. 01/14/2018 Discontinued docusate sodium (COLACE) Take 100 mg 0 100 MG capsule by mouth 2 (two) times daily. 01/14/2018 Discontinued PHENYTOIN ORAL Take 100 mg 0 by mouth 2 (two) times daily. 01/14/2018 Discontinued zolpidem (AMBIEN) 10 mg Take 10 mg by 0 tablet mouth every night as needed for Insomnia. 01/14/2018 Discontinued multivitamin capsule Take 1 0 capsule by mouth daily. 01/14/2018 Discontinued nystatin (MYCOSTATIN) Apply 0 100,000 unit/gram powder topically as needed. 01/14/2018 Discontinued pantoprazole (PROTONIX) Take 40 mg by 0 40 MG tablet mouth daily. 01/19/2018 Discontinued baclofen 5 mg Tab Take 5 mg by 14 tablet 0 mouth 2 (two) 8 times daily as needed for up to 30 days. 01/23/2018 Discontinued hydrOXYzine (ATARAX) 25 Take 1 tablet 30 tablet 0 MG tablet (25 mg total) 8 by mouth 2 (two) times daily as needed for Itching for up to 10 days. 01/14/2018 vancomycin (VANCOCIN) Inject 1,000 0 1000 mg in NS 250 mL mg 8 (V2B) IVPB intravenously once for 1 dose. 02/02/2018 hydrOXYzine (ATARAX) 25 Take 1 tablet 30 tablet 0 MG tablet (25 mg total) 8 by mouth 2 (two) times daily as needed for Itching for up to 10 days. 02/22/2018 baclofen 5 mg Tab Take 5 mg by 60 tablet 0 10/11/201 mouth 2 (two) 8 times daily as needed for up to 30 days. Active Problems Problem Noted Date Edema 01/03/2018 ESRD on hemodialysis 01/03/2018 Surgical site infection 01/03/2018 Chronic systolic congestive heart failure 08/22/2016 End stage renal disease 08/22/2016 IDDM (insulin dependent diabetes mellitus) 08/22/2016 Epilepsy 08/22/2016 Anxiety 08/22/2016 Chronic pain due to trauma 08/22/2016 Gastroparesis 08/22/2016 Diabetic polyneuropathy associated with type 1 diabetes mellitus 08/22/2016 Secondary hyperparathyroidism of renal origin 08/22/2016 Anemia in chronic kidney disease(285.21) 08/22/2016 Thrombocytopenia 08/22/2016 Pituitary tumor 08/22/2016 Benign hypertension with end-stage renal disease 08/22/2016 Neurogenic bladder 08/22/2016 Pre-transplant evaluation for chronic kidney disease 06/26/2016 Encounters Care Team Description Date Type Specialty Domenica Rojo MD 01/09/2018 Anesthesia Event Virtual, Surgeon PROCEDURE DONE [facility]SIDE [facility] Ahmed, Shamoon, MD Siddiqui, Angela Oliva MD Edema, unspecified type (Primary Dx); ESRD on hemodialysis (HCC); Postoperative wound infection, subsequent encounter; Chest pain, unspecified type; Chronic pain due to trauma; Surgical site infection 01/03/2018 Hospital Cardiology - Encounter 01/23/2018 01/03/2018 Orders Only General Internal Medicine Del Alfredo MD Canceled (Patient) 06/14/2017 Office Visit Transplant Yoon Delvalle 06/13/2017 Telephone Transplant Yoon Delvalle 06/10/2017 Telephone Transplant after 02/22/2017 Social History Date Tobacco Use Types Packs/Day Years Used Never Smoker Smokeless Tobacco: Never Used Alcohol Use Drinks/Week oz/Week Comments No Sex Assigned at Date Recorded Not on file Industry Job Start Date Occupation Not on file Not on file Not on file Travel End Travel History Travel Start No recent travel history available. Last Filed Vital Signs Time Taken Vital Sign Reading 01/23/2018 12:35 PM CDT Blood Pressure 143/87 01/23/2018 3:31 PM CDT Pulse 102 01/23/2018 12:35 PM CDT Temperature 36.6 C (97.8 F) 01/23/2018 3:31 PM CDT Respiratory Rate 18 01/23/2018 3:31 PM CDT Oxygen Saturation 93% 01/21/2018 7:39 PM CDT Inhaled Oxygen 21% Concentration 01/22/2018 5:00 PM CDT Weight 68.1 kg (150 lb 2.1 oz) 01/03/2018 7:00 AM CDT Height 160 cm (5' 3") 01/22/2018 5:00 PM CDT Body Mass Index 26.59 Plan of Treatment Health Maintenance Due Date Last Done Comments INFLUENZA VACCINE 01/13/2018 Procedures Comments Procedure Name Priority Date/Time Associated Diagnosis ARRYTHMIA IMPLANT REPORT 01/24/2018 - SCAN 1:40 PM CDT RHYTHM STRIP - SCAN 01/24/2018 1:40 PM CDT POCT-GLUCOSE METER Routine 01/23/2018 9:24 AM CDT POCT-GLUCOSE METER Routine 01/22/2018 9:38 PM CDT HEMODIALYSIS INPATIENT Routine 01/22/2018 5:54 PM CDT POCT-GLUCOSE METER Routine 01/22/2018 4:46 PM CDT POCT-GLUCOSE METER Routine 01/22/2018 11:47 AM CDT POCT-GLUCOSE METER Routine 01/22/2018 10:21 AM CDT POCT-GLUCOSE METER Routine 01/21/2018 10:06 PM CDT HEMODIALYSIS INPATIENT Routine 01/21/2018 3:05 PM CDT POCT-GLUCOSE METER Routine 01/21/2018 2:57 PM CDT WOUND CULTURE + GRAM Routine 01/21/2018 STAIN 6:41 AM CDT POCT-GLUCOSE METER Routine 01/20/2018 9:36 PM CDT POCT-GLUCOSE METER Routine 01/20/2018 5:26 PM CDT IR TUNNELED DIALYSIS Routine 01/20/2018 CATHETER 1:02 PM CDT CBC W/PLT COUNT & AUTO STAT 01/20/2018 DIFFERENTIAL 5:26 AM CDT VANCOMYCIN LEVEL, RANDOM Routine 01/20/2018 5:26 AM CDT PT/APTT STAT 01/20/2018 5:26 AM CDT CBC W/PLT COUNT & AUTO STAT 01/20/2018 DIFFERENTIAL 5:26 AM CDT POCT-GLUCOSE METER Routine 01/19/2018 9:42 PM CDT POCT-GLUCOSE METER Routine 01/19/2018 6:40 PM CDT POCT-GLUCOSE METER Routine 01/19/2018 10:15 AM CDT POCT-GLUCOSE METER Routine 01/18/2018 9:19 PM CDT TRANSFUSION SERVICE 01/18/2018 REPORT - SCAN 6:00 PM CDT CBC W/PLT COUNT & AUTO Routine 01/18/2018 DIFFERENTIAL 9:35 AM CDT PHOSPHORUS Routine 01/18/2018 9:35 AM CDT MAGNESIUM Routine 01/18/2018 9:35 AM CDT BASIC METABOLIC PANEL (7) Routine 01/18/2018 9:35 AM CDT CBC W/PLT COUNT & AUTO Routine 01/18/2018 DIFFERENTIAL 9:35 AM CDT HEMODIALYSIS INPATIENT Routine 01/18/2018 7:04 AM CDT PREPARE LEUKO-REDUCED AND Routine 01/17/2018 IRRADIATED RBC 11:[address] UPPER EXTREMITY WITH STAT 01/17/2018 CONTRAST LEFT 9:[address] UPPER EXTREMITY WITH STAT 01/17/2018 CONTRAST RIGHT 9:24 PM CDT POCT-GLUCOSE METER Routine 01/17/2018 6:58 PM CDT TRANSFUSION SERVICE 01/17/2018 REPORT - SCAN 6:01 PM CDT POCT-GLUCOSE METER Routine 01/17/2018 3:53 PM CDT POCT-GLUCOSE METER Routine 01/17/2018 9:47 AM CDT CBC W/PLT COUNT & AUTO Routine 01/17/2018 DIFFERENTIAL 4:18 AM CDT BASIC METABOLIC PANEL (7) Routine 01/17/2018 4:18 AM CDT CBC W/PLT COUNT & AUTO Routine 01/17/2018 DIFFERENTIAL 4:18 AM CDT VANCOMYCIN LEVEL, RANDOM Routine 01/17/2018 4:[address] CHEST WITHOUT IV Routine 01/16/2018 CONTRAST 11:42 PM CDT POCT-GLUCOSE METER Routine 01/16/2018 8:52 PM CDT POCT-GLUCOSE METER Routine 01/16/2018 6:54 PM CDT TRANSFUSE LEUKO-REDUCED Routine 01/16/2018 AND IRRADIATED RED BLOOD 3:05 PM CDT CELLS POCT-GLUCOSE METER Routine 01/16/2018 2:59 PM CDT TYPE AND SCREEN, Routine 01/16/2018 AUTOMATED 12:17 PM CDT HEMODIALYSIS INPATIENT Routine 01/16/2018 12:13 PM CDT IR TUNNELED DIALYSIS Routine 01/16/2018 CATHETER 9:51 AM CDT PT/APTT Routine 01/16/2018 4:01 AM CDT CBC (HEMOGRAM ONLY) Routine 01/16/2018 4:01 AM CDT BASIC METABOLIC PANEL (7) Routine 01/16/2018 4:01 AM CDT POCT-GLUCOSE METER Routine 01/15/2018 11:06 PM CDT POCT-GLUCOSE METER Routine 01/15/2018 6:43 PM CDT XR CHEST 2 VIEWS Routine 01/15/2018 3:02 PM CDT POCT-GLUCOSE METER Routine 01/15/2018 12:39 PM CDT CBC W/PLT COUNT & AUTO Routine 01/15/2018 DIFFERENTIAL 5:00 AM CDT VANCOMYCIN LEVEL, RANDOM Routine 01/15/2018 5:00 AM CDT CBC W/PLT COUNT & AUTO Routine 01/15/2018 DIFFERENTIAL 5:00 AM CDT BASIC METABOLIC PANEL (7) Routine 01/15/2018 5:00 AM CDT XR CHEST 2 VIEWS Routine 01/14/2018 10:00 PM CDT POCT-GLUCOSE METER Routine 01/14/2018 8:53 PM CDT POCT-GLUCOSE METER Routine 01/14/2018 6:46 PM CDT POCT-GLUCOSE METER Routine 01/14/2018 1:01 PM CDT POCT-GLUCOSE METER Routine 01/14/2018 9:40 AM CDT CBC W/PLT COUNT & AUTO Routine 01/14/2018 DIFFERENTIAL 4:57 AM CDT CBC W/PLT COUNT & AUTO Routine 01/14/2018 DIFFERENTIAL 4:57 AM CDT BASIC METABOLIC PANEL (7) Routine 01/14/2018 4:57 AM CDT C. DIFFICILE GDH TOXIN Routine 01/14/2018 2:05 AM CDT POCT-GLUCOSE METER Routine 01/13/2018 8:40 PM CDT POCT-GLUCOSE METER Routine 01/13/2018 6:01 PM CDT POCT-GLUCOSE METER Routine 01/13/2018 3:03 PM CDT HEMODIALYSIS INPATIENT Routine 01/13/2018 12:44 PM CDT CBC W/PLT COUNT & AUTO Routine 01/13/2018 DIFFERENTIAL 4:06 AM CDT CBC W/PLT COUNT & AUTO Routine 01/13/2018 DIFFERENTIAL 4:06 AM CDT BASIC METABOLIC PANEL (7) Routine 01/13/2018 4:06 AM CDT POCT-GLUCOSE METER Routine 01/12/2018 9:15 PM CDT POCT-GLUCOSE METER Routine 01/12/2018 7:05 PM CDT POCT-GLUCOSE METER Routine 01/12/2018 1:50 PM CDT TSH/FREE T4 IF INDICATED Routine 01/12/2018 12:38 PM CDT POCT-GLUCOSE METER Routine 01/12/2018 9:59 AM CDT CBC W/PLT COUNT & AUTO Routine 01/12/2018 DIFFERENTIAL 2:42 AM CDT VANCOMYCIN LEVEL, RANDOM Routine 01/12/2018 2:42 AM CDT CBC W/PLT COUNT & AUTO Routine 01/12/2018 DIFFERENTIAL 2:42 AM CDT BASIC METABOLIC PANEL (7) Routine 01/12/2018 2:42 AM CDT POCT-GLUCOSE METER Routine 01/11/2018 9:16 PM CDT POCT-GLUCOSE METER Routine 01/11/2018 6:20 PM CDT HEMODIALYSIS INPATIENT Routine 01/11/2018 2:[address] BRAIN WITHOUT IV Routine 01/11/2018 CONTRAST 12:53 PM CDT POCT-GLUCOSE METER Routine 01/11/2018 8:42 AM CDT CBC W/PLT COUNT & AUTO Routine 01/11/2018 DIFFERENTIAL 5:10 AM CDT CBC W/PLT COUNT & AUTO Routine 01/11/2018 DIFFERENTIAL 5:10 AM CDT BASIC METABOLIC PANEL (7) Routine 01/11/2018 5:10 AM CDT POCT-GLUCOSE METER Routine 01/10/2018 9:10 PM CDT HEMOGLOBIN AND HEMATOCRIT STAT 01/10/2018 6:15 PM CDT POCT-GLUCOSE METER Routine 01/10/2018 6:14 PM CDT POCT-GLUCOSE METER Routine 01/10/2018 5:55 PM CDT VANCOMYCIN LEVEL, TROUGH Timed 01/10/2018 3:09 PM CDT POCT-GLUCOSE METER Routine 01/10/2018 11:55 AM CDT POCT-GLUCOSE METER Routine 01/10/2018 8:47 AM CDT ECG 12-LEAD Routine 01/10/2018 7:31 AM CDT Procedure Note - Interface, External Ris In - 01/10/2018 7:41 AM CDT Ventricula r Rate 123 BPM Atrial Rate 123 BPM P-R Interval 164 ms QRS Duration 88 ms Q-T Interval 316 ms QTC Calculatio n(Bazett) 452 ms P [place] 61 degrees R [place] 27 degrees T [place] 106 degrees Sinus tachycardi a Nonspecifi c T wave abnormalit y Abnormal ECG When compared with ECG of 8 00:48, Fusion complexes are no longer Present Borderline criteria for Anterior infarct are no longer Present Nonspecifi c T wave abnormalit y no longer evident in Inferior leads Nonspecifi c T wave abnormalit y no longer evident in Anterior leads ECG 12-LEAD Routine 01/10/2018 7:31 AM CDT XR CHEST 1 VIEW VERITO 01/10/2018 PORTABLE/BEDSIDE 5:28 AM CDT C-REACTIVE PROTEIN Routine 01/10/2018 4:34 AM CDT CBC W/PLT COUNT & AUTO Routine 01/10/2018 DIFFERENTIAL 4:23 AM CDT LACTIC ACID, VENOUS, Routine 01/10/2018 WHOLE BLOOD 4:23 AM CDT CBC W/PLT COUNT & AUTO Routine 01/10/2018 DIFFERENTIAL 4:23 AM CDT BASIC METABOLIC PANEL (7) Routine 01/10/2018 4:23 AM CDT POCT-GLUCOSE METER Routine 01/09/2018 8:29 PM CDT POCT-GLUCOSE METER Routine 01/09/2018 6:20 PM CDT IR TUNNEL CATHETER Routine 01/09/2018 EXCHANGE 5:40 PM CDT PROCEDURE DONE OUTSIDE OR 01/09/2018 Leaking central line 2:24 PM CDT catheter, initial encounter (HCC) Special Needs REQ TF POCT-GLUCOSE METER Routine 01/09/2018 11:58 AM CDT POCT-GLUCOSE METER Routine 01/09/2018 5:02 AM CDT CBC W/PLT COUNT & AUTO Routine 01/09/2018 DIFFERENTIAL 4:08 AM CDT CBC W/PLT COUNT & AUTO Routine 01/09/2018 DIFFERENTIAL 4:08 AM CDT BASIC METABOLIC PANEL (7) Routine 01/09/2018 4:08 AM CDT PT/APTT STAT 01/09/2018 4:08 AM CDT HCG, QUANTITATIVE, STAT 01/09/2018 4:08 AM CDT POCT-GLUCOSE METER Routine 01/08/2018 10:55 PM CDT POCT-GLUCOSE METER Routine 01/08/2018 5:18 PM CDT POCT-GLUCOSE METER Routine 01/08/2018 1:24 PM CDT HEMODIALYSIS INPATIENT Routine 01/08/2018 8:00 AM CDT CBC W/PLT COUNT & AUTO Routine 01/08/2018 DIFFERENTIAL 4:54 AM CDT CBC W/PLT COUNT & AUTO Routine 01/08/2018 DIFFERENTIAL 4:54 AM CDT BASIC METABOLIC PANEL (7) Routine 01/08/2018 4:54 AM CDT POCT-GLUCOSE METER Routine 01/07/2018 9:19 PM CDT POCT-GLUCOSE METER Routine 01/07/2018 5:43 PM CDT POCT-GLUCOSE METER Routine 01/07/2018 1:06 PM CDT PERMANENT LAB REPORT - 01/07/2018 SCAN 11:13 AM CDT POCT-GLUCOSE METER Routine 01/07/2018 10:58 AM CDT CBC W/PLT COUNT & AUTO Routine 01/07/2018 DIFFERENTIAL 4:33 AM CDT CBC W/PLT COUNT & AUTO Routine 01/07/2018 DIFFERENTIAL 4:33 AM CDT BASIC METABOLIC PANEL (7) Routine 01/07/2018 4:33 AM CDT POCT-GLUCOSE METER Routine 01/06/2018 8:59 PM CDT POCT-GLUCOSE METER Routine 01/06/2018 5:59 PM CDT IMMUNOFIXATION AP Routine 01/06/2018 ELECTROPHORESIS (TONYA) 4:08 PM CDT PTH, INTACT Routine 01/06/2018 4:08 PM CDT C-REACTIVE PROTEIN Routine 01/06/2018 4:08 PM CDT LACTATE DEHYDROGENASE Routine 01/06/2018 (LDH) 4:08 PM CDT PROTEIN ELECTROPHORESIS, AP Routine 01/06/2018 SERUM 4:08 PM CDT POCT-GLUCOSE METER Routine 01/06/2018 2:08 PM CDT POCT-GLUCOSE METER Routine 01/06/2018 7:52 AM CDT CBC W/PLT COUNT & AUTO Routine 01/06/2018 DIFFERENTIAL 3:29 AM CDT CBC W/PLT COUNT & AUTO Routine 01/06/2018 DIFFERENTIAL 3:29 AM CDT BASIC METABOLIC PANEL (7) Routine 01/06/2018 3:29 AM CDT POCT-GLUCOSE METER Routine 01/05/2018 9:34 PM CDT POCT-GLUCOSE METER Routine 01/05/2018 5:46 PM CDT POCT-GLUCOSE METER Routine 01/05/2018 12:38 PM CDT XR ELBOW LEFT (MIN 3 VERITO 01/05/2018 VIEWS) 10:00 AM CDT XR SHOULDER LEFT COMPLETE VERITO 01/05/2018 MIN 2 VIEWS 10:00 AM CDT XR HUMERUS LEFT 2 VIEW VERITO 01/05/2018 10:00 AM CDT POCT-GLUCOSE METER Routine 01/05/2018 9:08 AM CDT CBC W/PLT COUNT & AUTO Routine 01/05/2018 DIFFERENTIAL 6:09 AM CDT CBC W/PLT COUNT & AUTO Routine 01/05/2018 DIFFERENTIAL 6:09 AM CDT BASIC METABOLIC PANEL (7) Routine 01/05/2018 6:09 AM CDT POCT-GLUCOSE METER Routine 01/04/2018 8:47 PM CDT POCT-GLUCOSE METER Routine 01/04/2018 4:06 PM CDT POCT-GLUCOSE METER Routine 01/04/2018 12:49 PM CDT POCT-GLUCOSE METER Routine 01/04/2018 8:48 AM CDT CBC W/PLT COUNT & AUTO Routine 01/04/2018 DIFFERENTIAL 5:11 AM CDT CBC W/PLT COUNT & AUTO Routine 01/04/2018 DIFFERENTIAL 5:11 AM CDT BASIC METABOLIC PANEL (7) Routine 01/04/2018 5:11 AM CDT POCT-GLUCOSE METER Routine 01/03/2018 9:07 PM CDT POCT-GLUCOSE METER Routine 01/03/2018 5:40 PM CDT POCT-GLUCOSE METER Routine 01/03/2018 2:01 PM CDT HEMODIALYSIS INPATIENT Routine 01/03/2018 1:43 PM CDT HEPATITIS B SURFACE Routine 01/03/2018 ANTIGEN 9:16 AM CDT HEMOGLOBIN A1C Routine 01/03/2018 9:16 AM CDT ED ECG INTERPRETATION Routine 01/03/2018 6:35 AM CDT URINALYSIS W/ MICROSCOPIC STAT 01/03/2018 4:24 AM CDT PT/APTT STAT 01/03/2018 3:59 AM CDT XR CHEST 1 VIEW STAT 01/03/2018 PORTABLE/BEDSIDE 1:48 AM CDT CBC W/PLT COUNT & AUTO STAT 01/03/2018 DIFFERENTIAL 1:09 AM CDT B-TYPE NATRIURETIC FACTOR STAT 01/03/2018 (BNP) 1:09 AM CDT CBC W/PLT COUNT & AUTO STAT 01/03/2018 DIFFERENTIAL 1:09 AM CDT MAGNESIUM STAT 01/03/2018 1:09 AM CDT LIPASE STAT 01/03/2018 1:09 AM CDT AMYLASE STAT 01/03/2018 1:09 AM CDT HEPATIC FUNCTION PANEL STAT 01/03/2018 1:09 AM CDT BASIC METABOLIC PANEL (7) STAT 01/03/2018 1:09 AM CDT PT/APTT STAT 01/03/2018 1:09 AM CDT TROPONIN I STAT 01/03/2018 1:09 AM CDT ECG 12-LEAD Routine 01/03/2018 12:48 AM CDT Procedure Note - Interface, External Ris In - 01/03/2018 3:35 AM CDT Ventricula r Rate 107 BPM Atrial Rate 107 BPM P-R Interval 168 ms QRS Duration 102 ms Q-T Interval 328 ms QTC Calculatio n(Bazett) 437 ms P [place] 53 degrees R [place] 0 degrees T [place] 174 degrees Sinus tachycardi a with Fusion complexes Possible Anterior infarct , age undetermin ed T wave abnormalit y, consider inferior ischemia Abnormal ECG When compared with ECG of 7 13:01, Fusion complexes are now Present Questionab le change in QRS axis Nonspecifi c T wave abnormalit y now evident in Inferior leads Nonspecifi c T wave abnormalit y now evident in Anterolate ral leads QT has shortened ECG 12-LEAD STAT 01/03/2018 12:48 AM CDT after 02/22/2017 Results * ARRYTHMIA IMPLANT REPORT - SCAN (01/24/2018 1:40 PM CDT) Narrative Performed At * RHYTHM STRIP - SCAN (01/24/2018 1:40 PM CDT) Narrative Performed At * POC-Glucose meter (01/23/2018 9:24 AM CDT) Only the most recent of 67 results within the time period is included. POC-Glucose Meter 135 (H)Comment: TESTED AT 70 - 110 mg/dL [facility] [address] [facility] [id number] Specimen Blood Performing Organization Address City/State/Zipcode Phone Number [facility] [address] [place], [place] [id number] [facility] * HEMODIALYSIS INPATIENT (01/22/2018 5:54 PM CDT) Narrative Performed At Cristofer Bobo RN 01/22/20185:54 PM 1251:HD treatment initiated via right internal jugular tunneled cvc.Able to aspirate and flush both port without discomfort to the pt.Able to achieve 400ml/min bfr. Will monitor pt. 1700:HD treatment completed, tolerated well, net UF -4.0L in 4hrs.CVC care provided, dressing changed, packed with cathflo and labeled as ordered.Pt transported back to her room in stable condition, report given to primary care RN. Lab Results Component Value Date GLUCOSE 135 (H) 01/18/2018 CALCIUM 7.8 (L) 01/18/2018 NA 135 (L) 01/18/2018 K 3.2 (L) 01/18/2018 CO2 29 01/18/2018 CL 99 01/18/2018 BUN 13 01/18/2018 CREATININE 2.07 (H) 01/18/2018 Lab Results Component Value Date WBC 4.6 01/20/2018 HGB 8.4 (L) 01/20/2018 HCT 28.9 (L) 01/20/2018 MCV 95.1 (H) 01/20/2018 PLT 169 01/20/2018 Lab Results Component Value Date HEPBSAG Nonreactive 01/03/2018 * HEMODIALYSIS INPATIENT (01/21/2018 3:05 PM CDT) Narrative Performed At Naomy Driscoll RN 01/21/20183:05 PM Completed hd x 3.5 hrs via right IJ tunneled catheter. Tolerated hd well with net UF of 2000 ml today. Report given to BERNIE Perez. Lab Results Component Value Date GLUCOSE 135 (H) 01/18/2018 CALCIUM 7.8 (L) 01/18/2018 NA 135 (L) 01/18/2018 K 3.2 (L) 01/18/2018 CO2 29 01/18/2018 CL 99 01/18/2018 BUN 13 01/18/2018 CREATININE 2.07 (H) 01/18/2018 Lab Results Component Value Date WBC 4.6 01/20/2018 HGB 8.4 (L) 01/20/2018 HCT 28.9 (L) 01/20/2018 MCV 95.1 (H) 01/20/2018 PLT 169 01/20/2018 Lab Results Component Value Date HEPBSAG Nonreactive 01/03/2018 Lab Results Component Value Date HEPCAB Nonreactive 07/19/2016 Results for JEFF BERMEO ( ) as of 01/21/2018 13:12 Ref. Range 07/19/2016 10:01 01/03/2018 09:16 HIV-1 Antigen with HIV 1&2 Antibody Latest Ref Range: Nonreactive Nonreactive * Wound culture + gram stain (01/21/2018 6:41 AM CDT) Result No growth [facility] Gram Stain Result 4+ WBCs [facility] Gram Stain Result No organisms seen [facility] Specimen Wound - Shoulder, Left Performing Organization Address City/State/Zipcode Phone Number [facility] [address] [place] [address] [facility] * IR Tunneled Catheter Insertion (01/20/2018 1:02 PM CDT) Only the most recent of 2 results within the time period is included. Narrative Performed At FINAL REPORT [facility] Tunneled dialysis catheter exchange, partial today History: Renal failure. Nonfunctioning hemodialysis catheter. Unable to aspirate from the right portal Modality: Sonography and fluoroscopy. Sedation: Versed 1.0 mg and fentanyl 50 mcg was given intravenously for conscious sedation.Vital signs were monitored throughout the procedure by a nurse, and remained stable. Physician intra-service time was 20 minutes. Lathe Tender:Kayla. Health Unit Clerk: Nadia Inman MD. Approach: Right chest tunneled hemodialysis catheter Estimated blood loss:< 5 cc. Specimen: None. Fluoroscopy Time: 5.5 min.Dose (Ka,r): 104 mGy. Technique: Informed written consent was obtained.Discussion of risks, benefits, and alternatives were made with the patient. The patient expressed understanding and agreed to proceed.All elements maximal sterile barrier technique was utilized for this procedure, including utilization of sterile scrub solution for skin prep, a large sterile sheet to cover the areas of the patient that were not prepped, and hand hygiene, mask, head covering, and sterile gown for performing radiologist and scrub technologist. The skin was anesthetized with 2% lidocaine.A guidewire was inserted through one of the lumens of the existing tunneled hemodialysis catheter and into the inferior vena cava. The existing dialysis catheter was then removed over the guidewire. A new 19 cm cuff to tip 15.5 O[place] Duraflow two catheter was then advanced over the guidewire and positioned so that the distal catheter tip was within the right atrium. The guidewire was then removed. The ports were flushed and aspirated easily following placement.The catheter was sutured to the skin with 2-0 silk to secure its placement.Vital signs were monitored throughout the procedure by a nurse, and remained stable.The patient tolerated the procedure well and left the department in the same condition. Results:Spot radiograph of the chest demonstrates the new dialysis catheter to lie in the expected position with its tip overlying the superior right atrium. Impression: Successful, uncomplicated exchange of a tunneled right internal jugular hemodialysis catheter. Signed: Lane Devi MD Report Verified Date/Time:01/20/2018 17:29:46 Reading Location: [place] [address] Angio Body Reading Room Procedure Note Interface, External Ris In - 01/20/2018 5:31 PM CDT FINAL REPORT Tunneled dialysis catheter exchange, partial today History: Renal failure. Nonfunctioning hemodialysis catheter. Unable to aspirate from the right portal Modality: Sonography and fluoroscopy. Sedation: Versed 1.0 mg and fentanyl 50 mcg was given intravenously for conscious sedation. Vital signs were monitored throughout the procedure by a nurse, and remained stable. Physician intra-service time was 20 minutes. Lathe Tender: Kayla. Health Unit Clerk: Nadia Inman MD. Approach: Right chest tunneled hemodialysis catheter Estimated blood loss: < 5 cc. Specimen: None. Fluoroscopy Time: 5.5 min. Dose (Ka,r): 104 mGy. Technique: Informed written consent was obtained. Discussion of risks, benefits, and alternatives were made with the patient. The patient expressed understanding and agreed to proceed. All elements maximal sterile barrier technique was utilized for this procedure, including utilization of sterile scrub solution for skin prep, a large sterile sheet to cover the areas of the patient that were not prepped, and hand hygiene, mask, head covering, and sterile gown for performing radiologist and scrub technologist. The skin was anesthetized with 2% lidocaine.A guidewire was inserted through one of the lumens of the existing tunneled hemodialysis catheter and into the inferior vena cava. The existing dialysis catheter was then removed over the guidewire. A new 19 cm cuff to tip 15.5 O[place] Duraflow two catheter was then advanced over the guidewire and positioned so that the distal catheter tip was within the right atrium. The guidewire was then removed. The ports were flushed and aspirated easily following placement. The catheter was sutured to the skin with 2-0 silk to secure its placement. Vital signs were monitored throughout the procedure by a nurse, and remained stable. The patient tolerated the procedure well and left the department in the same condition. Results: Spot radiograph of the chest demonstrates the new dialysis catheter to lie in the expected position with its tip overlying the superior right atrium. Impression: Successful, uncomplicated exchange of a tunneled right internal jugular hemodialysis catheter. Signed: Lane Devi MD Report Verified Date/Time: 01/20/2018 17:29:46 Reading Location: [place] [address] Angio Body Reading Room Performing Organization Address City/State/Zipcode Phone Number [facility] * PT/aPTT (01/20/2018 5:26 AM CDT) Only the most recent of 5 results within the time period is included. Protime 17.8 (H) 11.7 - 14.7 seconds [facility] INR 1.5 <=5.9 [facility] PTT 36.8 (H) 22.5 - 36.0 seconds [facility] Specimen Blood - Central Venous Line Narrative Performed At RECOMMENDED COUMADIN/WARFARIN INR THERAPY RANGES [facility] STANDARD DOSE: 2.0 - 3.0 Includes: PROPHYLAXIS for venous thrombosis, [facility] systemic embolization; TREATMENT for venous thrombosis and/or pulmonary embolus. HIGH RISK: Target INR is 2.5-3.5 for patients with mechanical heart valves. Performing Organization Address City/State/Zipcode Phone Number [facility] [address] [place] [address] MED[facility]ENTER * CBC with platelet count + automated diff (01/20/2018 5:26 AM CDT) Only the most recent of 16 results within the time period is included. WBC 4.6 3.5 - 10.5 K/L [facility] RBC 3.04 (L) 3.93 - 5.22 M/L [facility] Hemoglobin 8.4 (L) 11.2 - 15.7 GM/DL [facility] Hematocrit 28.9 (L) 34.1 - 44.9 % [facility] MCV 95.1 (H) 79.4 - 94.8 fL [facility] MCH 27.6 25.6 - 32.2 pg [facility] MCHC 29.1 (L) 32.2 - 35.5 GM/DL [facility] RDW 17.8 (H) 11.7 - 14.4 % [facility] Platelets 169 150 - 450 K/CU MM [facility] MPV 10.8 9.4 - 12.3 fL [facility] nRBC 0 0 - 0 /100 WBC [facility] % Neutros 77 % [facility] % Lymphs 16 % [facility] % Monos 3 % [facility] % Eos 2 % [facility] % Baso 1 % [facility] # Neutros 3.51 1.56 - 6.13 K/L [facility] # Lymphs 0.75 (L) 1.18 - 3.74 K/L [facility] # Monos 0.13 (L) 0.24 - 0.36 K/L [facility] # Eos 0.11 0.04 - 0.36 K/L [facility] # Baso 0.03 0.01 - 0.08 K/L [facility] Immature 1 0 - 1 % [facility] Granulocytes-Relative [facility] Specimen Blood - Central Venous Line Performing Organization Address City/[facility] Cent[facility] Phone Number [phone] [place] [address] * Vancomycin level, random (01/20/2018 5:26 AM CDT) Only the most recent of 4 results within the time period is included. Vancomycin Rm 19.5 ug/mL [facility] Specimen Blood - Central Venous Line Narrative Performed At Reference Range: No Normals [facility] Performing Organization Address City/[facility] Center[facility]t Phone Number [phone] [place] [address] * TRANSFUSION SERVICE REPORT - SCAN (01/18/2018 6:00 PM CDT) Only the most recent of 2 results within the time period is included. Narrative Performed At * Phosphorus (01/18/2018 9:35 AM CDT) Phosphorus 2.4 2.3 - 4.7 mg/dL [facility] Specimen Blood Performing Organization Address City/[facility] [place]ode [place] [phone] [place] [address] * Magnesium (01/18/2018 9:35 AM CDT) Only the most recent of 2 results within the time period is included. Magnesium 1.7 1.6 - 2.6 mg/dL [facility] Specimen Blood Performing Organization Address City/[facility]/Zipcode Phone Number [facility] [address] [place] [address] [facility] * Basic metabolic panel (01/18/2018 9:35 AM CDT) Only the most recent of 16 results within the time period is included. Sodium 135 (L) 136 - 145 meq/L [facility] Potassium 3.2 (L) 3.5 - 5.1 meq/L [facility] Chloride 99 98 - 107 meq/L [facility] CO2 29 22 - 29 meq/L [facility] BUN 13 7 - 21 mg/dL [facility] Creatinine 2.07 (H) 0.57 - 1.25 mg/dL [facility] Glucose 135 (H) 70 - 105 mg/dL [facility] Calcium 7.8 (L) 8.4 - 10.2 mg/dL [facility] EGFR 34Comment: ESTIMATED GFR IS mL/min/1.73 sq m [facility] NOT ACCURATE CREATININE [facility] CLEARANCE IN PREDICTING GLOMERULAR FILTRATION RATE. ESTIMATED GFR IS NOT APPLICABLE FOR DIALYSIS PATIENTS. Specimen Blood Performing Organization Address City/[facility] Centercode Phone Number [place] [phone] [place] [address] [facility] * Prepare Leuko-Red & Irrad RBC (01/17/2018 11:54 PM CDT) CROSSMATCH COMPATIBLE SAFETRACE TX Unit ABO O Pos SAFETRACE [place] UNIT NUMBER [id number] [place] Status TRANSFUSED SAFET[place]ACE [place] Blood Bank Product RED BLOOD CELLS [place] PRODUCT CODE [id number] [place] [place] Specimen Other Performing Organization Address City/[facility] Centercode Phone Number [place] [place] * CT upper extremity with contrast right (01/17/2018 9:24 PM CDT) Narrative Performed At FINAL REPORT [facility] CT, EXTREMITY, UPPER, WITH CONTRAST, RIGHT, CT, EXTREMITY, UPPER, WITH CONTRAST, LEFT INDICATION: right shoulder pain, arthritis COMPARISON: CT chest dated 01/16/2018. TECHNIQUE:Contiguous axial images of the bilateral upper extremities after the administration of intravenous contrast material with coronal and sagittal reformations to assess the alignment. DOSE REDUCTION: Dose modulation, iterative reconstruction, and/or weight-based adjustment of the mA/kV was utilized to reduce the radiation dose to as low as reasonably achievable. Right upper extremity: Bones: No aggressive osseous lesions or acute fractures. Mild degenerative changes of the right glenohumeral joint. No shoulder joint effusion. Soft tissues: Diffuse soft tissue stranding in the right lateral chest wall and visualized right upper extremity. No drainable fluid collection. Multiple prominent axillary lymph nodes are favored to be reactive and related to congestion. Partially imaged right chest tunneled central venous catheter. No subcutaneous emphysema. Visualized lungs: Diffuse interlobular septal thickening and scattered ground glass opacities may represent interstitial and alveolar edema. No pleural effusion. No suspicious pulmonary nodules. Vasculature: Multiple collateral vessels seen within the right upper cavity. Limited evaluation of arterial structures given timing of contrast and streak artifact from contrast injection. Left upper extremity: Bones: There is a lytic lesion within the lateral humeral head with pathologic fracture through the greater tuberosity. The glenohumeral joint is relatively preserved. Soft tissues:There is surrounding inflammatory stranding. There is a peripherally enhancing fluid collection measuring 2.1 x 1.1 x 2.5 cm adjacent to the lateral humeral head. There is a small 8 mm component in the dermal aspect of the left lateral humerus Diffuse soft tissue swelling in the left lateral chest wall and left upper extremity. Multiple enlarged axillary lymph nodes.. Left chest wall Port-A-Cath is partially evaluated. No subcutaneous emphysema. Vasculature: The visualized left subclavian through the axillary and brachial artery are patent. Venous structures are not well evaluated secondary to timing of contrast material. IMPRESSION: There is a lytic lesion within the left lateral humeral head with pathologic fracture through the greater tuberosity. Characterization of this lesion could be further assessed on MRI of the upper cavity. There is a peripherally enhancing fluid collection measuring 2.1 x 1.1 x 2.5 cm adjacent to the left lateral humeral head with a small dermal component. Total body anasarca. No drainable fluid collection or osseous abnormality in the right upper extremity. Interstitial pulmonary edema. Signed: Kirt Machado MD Report Verified Date/Time:01/17/2018 22:06:08 Reading Location: [facility] B1 [id number] Transitional Reading Room Procedure Note Interface, External Ris In - 01/17/2018 10:08 PM CDT FINAL REPORT CT, EXTREMITY, UPPER, WITH CONTRAST, RIGHT, CT, EXTREMITY, UPPER, WITH CONTRAST, LEFT INDICATION: right shoulder pain, arthritis COMPARISON: CT chest dated 01/16/2018. TECHNIQUE: Contiguous axial images of the bilateral upper extremities after the administration of intravenous contrast material with coronal and sagittal reformations to assess the alignment. DOSE REDUCTION: Dose modulation, iterative reconstruction, and/or weight-based adjustment of the mA/kV was utilized to reduce the radiation dose to as low as reasonably achievable. Right upper extremity: Bones: No aggressive osseous lesions or acute fractures. Mild degenerative changes of the right glenohumeral joint. No shoulder joint effusion. Soft tissues: Diffuse soft tissue stranding in the right lateral chest wall and visualized right upper extremity. No drainable fluid collection. Multiple prominent axillary lymph nodes are favored to be reactive and related to congestion. Partially imaged right chest tunneled central venous catheter. No subcutaneous emphysema. Visualized lungs: Diffuse interlobular septal thickening and scattered ground glass opacities may represent interstitial and alveolar edema. No pleural effusion. No suspicious pulmonary nodules. Vasculature: Multiple collateral vessels seen within the right upper cavity. Limited evaluation of arterial structures given timing of contrast and streak artifact from contrast injection. Left upper extremity: Bones: There is a lytic lesion within the lateral humeral head with pathologic fracture through the greater tuberosity. The glenohumeral joint is relatively preserved. Soft tissues: There is surrounding inflammatory stranding. There is a peripherally enhancing fluid collection measuring 2.1 x 1.1 x 2.5 cm adjacent to the lateral humeral head. There is a small 8 mm component in the dermal aspect of the left lateral humerus Diffuse soft tissue swelling in the left lateral chest wall and left upper extremity. Multiple enlarged axillary lymph nodes.. Left chest wall Port-A-Cath is partially evaluated. No subcutaneous emphysema. Vasculature: The visualized left subclavian through the axillary and brachial artery are patent. Venous structures are not well evaluated secondary to timing of contrast material. IMPRESSION: There is a lytic lesion within the left lateral humeral head with pathologic fracture through the greater tuberosity. Characterization of this lesion could be further assessed on MRI of the upper cavity. There is a peripherally enhancing fluid collection measuring 2.1 x 1.1 x 2.5 cm adjacent to the left lateral humeral head with a small dermal component. Total body anasarca. No drainable fluid collection or osseous abnormality in the right upper extremity. Interstitial pulmonary edema. Signed: Kirt Machado MD Report Verified Date/Time: 01/17/2018 22:06:08 Reading Location: [facility] Transitional Reading Room Performing Organization Address City/State/Zipcode Phone Number [facility] * CT upper extremity with contrast left (01/17/2018 9:24 PM CDT) Narrative Performed At FINAL REPORT [facility] CT, EXTREMITY, UPPER, WITH CONTRAST, RIGHT, CT, EXTREMITY, UPPER, WITH CONTRAST, LEFT INDICATION: right shoulder pain, arthritis COMPARISON: CT chest dated 01/16/2018. TECHNIQUE:Contiguous axial images of the bilateral upper extremities after the administration of intravenous contrast material with coronal and sagittal reformations to assess the alignment. DOSE REDUCTION: Dose modulation, iterative reconstruction, and/or weight-based adjustment of the mA/kV was utilized to reduce the radiation dose to as low as reasonably achievable. Right upper extremity: Bones: No aggressive osseous lesions or acute fractures. Mild degenerative changes of the right glenohumeral joint. No shoulder joint effusion. Soft tissues: Diffuse soft tissue stranding in the right lateral chest wall and visualized right upper extremity. No drainable fluid collection. Multiple prominent axillary lymph nodes are favored to be reactive and related to congestion. Partially imaged right chest tunneled central venous catheter. No subcutaneous emphysema. Visualized lungs: Diffuse interlobular septal thickening and scattered ground glass opacities may represent interstitial and alveolar edema. No pleural effusion. No suspicious pulmonary nodules. Vasculature: Multiple collateral vessels seen within the right upper cavity. Limited evaluation of arterial structures given timing of contrast and streak artifact from contrast injection. Left upper extremity: Bones: There is a lytic lesion within the lateral humeral head with pathologic fracture through the greater tuberosity. The glenohumeral joint is relatively preserved. Soft tissues:There is surrounding inflammatory stranding. There is a peripherally enhancing fluid collection measuring 2.1 x 1.1 x 2.5 cm adjacent to the lateral humeral head. There is a small 8 mm component in the dermal aspect of the left lateral humerus Diffuse soft tissue swelling in the left lateral chest wall and left upper extremity. Multiple enlarged axillary lymph nodes.. Left chest wall Port-A-Cath is partially evaluated. No subcutaneous emphysema. Vasculature: The visualized left subclavian through the axillary and brachial artery are patent. Venous structures are not well evaluated secondary to timing of contrast material. IMPRESSION: There is a lytic lesion within the left lateral humeral head with pathologic fracture through the greater tuberosity. Characterization of this lesion could be further assessed on MRI of the upper cavity. There is a peripherally enhancing fluid collection measuring 2.1 x 1.1 x 2.5 cm adjacent to the left lateral humeral head with a small dermal component. Total body anasarca. No drainable fluid collection or osseous abnormality in the right upper extremity. Interstitial pulmonary edema. Signed: Kitr Machado MD Report Verified Date/Time:01/17/2018 22:06:08 Reading Location: [address] Transitional Reading Room Procedure Note Interface, External Ris In - 01/17/2018 10:08 PM CDT FINAL REPORT CT, EXTREMITY, UPPER, WITH CONTRAST, RIGHT, CT, EXTREMITY, UPPER, WITH CONTRAST, LEFT INDICATION: right shoulder pain, arthritis COMPARISON: CT chest dated 01/16/2018. TECHNIQUE: Contiguous axial images of the bilateral upper extremities after the administration of intravenous contrast material with coronal and sagittal reformations to assess the alignment. DOSE REDUCTION: Dose modulation, iterative reconstruction, and/or weight-based adjustment of the mA/kV was utilized to reduce the radiation dose to as low as reasonably achievable. Right upper extremity: Bones: No aggressive osseous lesions or acute fractures. Mild degenerative changes of the right glenohumeral joint. No shoulder joint effusion. Soft tissues: Diffuse soft tissue stranding in the right lateral chest wall and visualized right upper extremity. No drainable fluid collection. Multiple prominent axillary lymph nodes are favored to be reactive and related to congestion. Partially imaged right chest tunneled central venous catheter. No subcutaneous emphysema. Visualized lungs: Diffuse interlobular septal thickening and scattered ground glass opacities may represent interstitial and alveolar edema. No pleural effusion. No suspicious pulmonary nodules. Vasculature: Multiple collateral vessels seen within the right upper cavity. Limited evaluation of arterial structures given timing of contrast and streak artifact from contrast injection. Left upper extremity: Bones: There is a lytic lesion within the lateral humeral head with pathologic fracture through the greater tuberosity. The glenohumeral joint is relatively preserved. Soft tissues: There is surrounding inflammatory stranding. There is a peripherally enhancing fluid collection measuring 2.1 x 1.1 x 2.5 cm adjacent to the lateral humeral head. There is a small 8 mm component in the dermal aspect of the left lateral humerus Diffuse soft tissue swelling in the left lateral chest wall and left upper extremity. Multiple enlarged axillary lymph nodes.. Left chest wall Port-A-Cath is partially evaluated. No subcutaneous emphysema. Vasculature: The visualized left subclavian through the axillary and brachial artery are patent. Venous structures are not well evaluated secondary to timing of contrast material. IMPRESSION: There is a lytic lesion within the left lateral humeral head with pathologic fracture through the greater tuberosity. Characterization of this lesion could be further assessed on MRI of the upper cavity. There is a peripherally enhancing fluid collection measuring 2.1 x 1.1 x 2.5 cm adjacent to the left lateral humeral head with a small dermal component. Total body anasarca. No drainable fluid collection or osseous abnormality in the right upper extremity. Interstitial pulmonary edema. Signed: Kirt Machado MD Report Verified Date/Time: 01/17/2018 22:06:08 Reading Location: [address] Transitional Reading Room Performing Organization Address City/State/Zipcode Phone Number [facility] * CT chest without IV contrast (01/16/2018 11:42 PM CDT) Narrative Performed At FINAL REPORT [facility] CT, CHEST, WITHOUT CONTRAST INDICATION: Chest pain or SOB, pleurisy or effusion suspected COMPARISON: None TECHNIQUE:Noncontrast axially oriented images were obtained from the thoracic inlet through the lung bases.Coronal and sagittal reformats were provided. DOSE REDUCTION: Dose modulation, iterative reconstruction, and/or weight-based adjustment of the mA/kV was utilized to reduce the radiation dose to as low as reasonably achievable. FINDINGS: Lungs and Pleura: Diffuse groundglass attenuation throughout the air spaces. No septal thickening. No pneumothorax. Findings/trace bilateral pleural effusions dependently. Central airways: Patent. Mediastinum: Unremarkable esophagus. Multiple nonenlarged by CT criteria. Heart and pericardium: Normal. Great vessels: Normal calibers. Included upper abdomen: No acute abnormalities. Regional skeletal structures: Intact. Additional findings: Mild superficial/soft tissue edema is noted throughout the imaged volume. A left lateral thoracic subcutaneous generator is present. The pacer lead arising from this pulse generator traverses the thoracic cavity and ascends along the midline to terminate superficial to the sternum. Left axillary adenopathy. IMPRESSION: Ground glass attenuation in the lungs suggesting alveolar edema. Trace bilateral pleural effusions. Overall volume overload and third spacing. Left axillary adenopathy of indeterminate etiology and significance. Pacer lead overlying the sternum within the subcutaneous tissues. No penetration of the thoracic cavity. Signed: JR Dwyer Robert MD Report Verified Date/Time:01/16/2018 23:55:03 Reading Location: [address] Reading Room Procedure Note Interface, External Ris In - 01/16/2018 11:[address] PM CDT FINAL REPORT CT, CHEST, WITHOUT CONTRAST INDICATION: Chest pain or SOB, pleurisy or effusion suspected COMPARISON: None TECHNIQUE: Noncontrast axially oriented images were obtained from the thoracic inlet through the lung bases. Coronal and sagittal reformats were provided. DOSE REDUCTION: Dose modulation, iterative reconstruction, and/or weight-based adjustment of the mA/kV was utilized to reduce the radiation dose to as low as reasonably achievable. FINDINGS: Lungs and Pleura: Diffuse groundglass attenuation throughout the air spaces. No septal thickening. No pneumothorax. Findings/trace bilateral pleural effusions dependently. Central airways: Patent. Mediastinum: Unremarkable esophagus. Multiple nonenlarged by CT criteria. Heart and pericardium: Normal. Great vessels: Normal calibers. Included upper abdomen: No acute abnormalities. Regional skeletal structures: Intact. Additional findings: Mild superficial/soft tissue edema is noted throughout the imaged volume. A left lateral thoracic subcutaneous generator is present. The pacer lead arising from this pulse generator traverses the thoracic cavity and ascends along the midline to terminate superficial to the sternum. Left axillary adenopathy. IMPRESSION: Ground glass attenuation in the lungs suggesting alveolar edema. Trace bilateral pleural effusions. Overall volume overload and third spacing. Left axillary adenopathy of indeterminate etiology and significance. Pacer lead overlying the sternum within the subcutaneous tissues. No penetration of the thoracic cavity. Signed: JR Yuliya, Ashish FRIED Report Verified Date/Time: 01/16/2018 23:55:03 Reading Location: [address] Reading Room Performing Organization Address City/State/Zipcode Phone Number GE RIS * Transfuse Leuko-Red & Irrad RBC (01/16/2018 3:05 PM CDT) Only the most recent of 2 results within the time period is included. * Type and screen, automated (01/16/2018 12:17 PM CDT) ABO/RH AUTOMATED (BEAKER) O POSITIVE [facility] Ab Scrn NEGATIVE [facility] Specimen Blood - Central Venous Line Performing Organization Address City/[facility] Cent[facility] Phone Number [facility] [address] [place], [place] [phone] [facility]ENTER * CBC (Hemogram only) (01/16/2018 4:01 AM CDT) WBC 3.7 3.5 - 10.5 K/L [facility] RBC 2.49 (L) 3.93 - 5.22 M/L [facility] Hemoglobin 6.9 (L) 11.2 - 15.7 GM/DL [facility] Hematocrit 24.0 (L) 34.1 - 44.9 % [facility] MCV 96.4 (H) 79.4 - 94.8 fL [facility] MCH 27.7 25.6 - 32.2 pg [facility] MCHC 28.8 (L) 32.2 - 35.5 GM/DL [facility] RDW 18.7 (H) 11.7 - 14.4 % [facility] Platelets 152 150 - 450 K/CU MM [facility] MPV 10.8 9.4 - 12.3 fL [facility] nRBC 0 0 - 0 /100 WBC [facility] Specimen Blood - Central Venous Line Performing Organization Address City/State/Zipcode Phone Number [facility] [address] [place] [address] MEDICAL [facility]ENTER * XR chest 2 views (01/15/2018 3:02 PM CDT) Only the most recent of 2 results within the time period is included. Narrative Performed At FINAL REPORT [facility] TECHNIQUE: 2 views of the chest. COMPARISON: 01/10/2018 FINDINGS: The cardiac silhouette is enlarged.Right internal jugular dialysis catheter, left-sided port, and left-sided AICD again noted, stable. Mild vascular congestion suspected, overall improved from the previous exam. No overt consolidation or large effusion. No pneumothorax.No acute skeletal abnormality. Soft tissues appear unremarkable. IMPRESSION: Suspected mild vascular congestion. Signed: Jaren Roper MD Report Verified Date/Time:01/14/2018 22:17:24 Reading Location: [facility] Mamm Reading Room Procedure Note Interface, External Ris In - 01/15/2018 3:03 PM CDT FINAL REPORT TECHNIQUE: 2 views of the chest. COMPARISON: 01/10/2018 FINDINGS: The cardiac silhouette is enlarged. Right internal jugular dialysis catheter, left-sided port, and left-sided AICD again noted, stable. Mild vascular congestion suspected, overall improved from the previous exam. No overt consolidation or large effusion. No pneumothorax. No acute skeletal abnormality. Soft tissues appear unremarkable. IMPRESSION: Suspected mild vascular congestion. Signed: Jaren Roper MD Report Verified Date/Time: 01/14/2018 22:17:24 Reading Location: [facility] Mammo Reading Room Performing Organization Address City/State/Zipcode Phone Number GE [facility] * Clostridium difficile [facility] Toxin (01/14/2018 2:05 AM CDT) C. Difficle Toxin Negative Negative [facility] C. Difficile [facility] Antigen Positive (A)Comment: C. Negative [facility] difficile present but toxin [facility] not detected. Indicates colonization with non-toxigenic strain or level of toxin below detectable levels. No need for enteric isolation. Treatment is rarely needed (only when strong clinical suspicion for Clostridium difficile infection) Specimen Stool - Stool Narrative Performed At Testing performed by [employer] Rapid [employer]ette Assay.For [facility], published [facility] sensitivity of the assay is 98.7% compared to cytotoxicity testing.For Toxin [facility], published sensitivity is 87.8% and specificity 99.4% compared to cytotoxicity testing. Verification of kit performance was done by the [facility] Microbiology Lab prior to clinical use. Performing Organization Address [facility]/State/Zipcode Phone Number [facility] [address] [place] [address] [facility] * HEMODIALYSIS INPATIENT (01/13/2018 12:44 PM CDT) Narrative Performed At Garcia Driscoll RN 01/13/2018 12:44 PM HD x 4 hours completed. Patient tolerated treatment with 3.5L net fluid removed. Lab Results Component Value Date WBC 4.6 01/13/2018 HGB 7.5 (L) 01/13/2018 HCT 26.2 (L) 01/13/2018 MCV 96.7 (H) 01/13/2018 PLT 137 (L) 01/13/2018 Lab Results Component Value Date HEPBSAG Nonreactive 01/03/2018 ] Lab Results Component Value Date GLUCOSE 231 (H) 01/13/2018 CALCIUM 7.9 (L) 01/13/2018 NA 136 01/13/2018 K 3.9 01/13/2018 CO2 27 01/13/2018 CL 101 01/13/2018 BUN 22 (H) 01/13/2018 CREATININE 3.07 (H) 01/13/2018 * TSH/Free T4 If Indicated (01/12/2018 12:38 PM CDT) TSH 3.42 0.35 - 4.94 uIU/mL [facility] Specimen Blood - Line, Venous Performing Organization Address City/State/Zipcode Phone Number [facility] [address] [place] [address] [facility] * CT brain without IV contrast (01/11/2018 12:53 PM CDT) Narrative Performed At FINAL REPORT [facility] CT head without contrast 01/11/2018 1:34 PM CLINICAL HISTORY: Stroke TECHNIQUE: Axial noncontrast CT images through the head were obtained. This examination was performed according to our departmental dose optimization program, which includes automated exposure control, adjustment of the mA and/or kV according to patient size, and/or use of iterated reconstruction technique. COMPARISON: None available FINDINGS: There is no hemorrhage, extra-axial collection, mass, hydrocephalus, or midline shift. There is no CT evidence for cerebral infarction. There is generalized parenchymal volume loss that is greater than expected for age. The visualized paranasal sinuses and mastoid air cells are well aerated. The skull is intact. IMPRESSION: No intracranial hemorrhage or mass effect. If concern for acute pathology persists, further evaluation with MRI is recommended. Signed: Mello Thibodeaux MD Report Verified Date/Time:01/11/2018 13:35:22 Reading Location: [address] Ortho Consult Reading Room Procedure Note Interface, External Ris In - 01/13/2018 9:42 PM CDT FINAL REPORT CT head without contrast 01/11/2018 1:34 PM CLINICAL HISTORY: Stroke TECHNIQUE: Axial noncontrast CT images through the head were obtained. This examination was performed according to our departmental dose optimization program, which includes automated exposure control, adjustment of the mA and/or kV according to patient size, and/or use of iterated reconstruction technique. COMPARISON: None available FINDINGS: There is no hemorrhage, extra-axial collection, mass, hydrocephalus, or midline shift. There is no CT evidence for cerebral infarction. There is generalized parenchymal volume loss that is greater than expected for age. The visualized paranasal sinuses and mastoid air cells are well aerated. The skull is intact. IMPRESSION: No intracranial hemorrhage or mass effect. If concern for acute pathology persists, further evaluation with MRI is recommended. Signed: Mello Thibodeaux MD Report Verified Date/Time: 01/11/2018 13:35:22 Reading Location: [facility] B1 C013X Ortho Consult Reading Room Performing Organization Address City/[facility] Centercode Phone Number [facility] * Hemoglobin and hematocrit (01/10/2018 6:15 PM CDT) Hemoglobin 8.4 (L) 11.2 - 15.7 GM/DL [facility] Hematocrit 28.5 (L) 34.1 - 44.9 % [facility] Specimen Blood - Central Venous Line Performing Organization Address City/[facility] Centercode Phone Number [facility] [address] [place] [address] [phone] [place] [address] * Vancomycin level, trough (01/10/2018 3:09 PM CDT) Vancomycin Tr 12.4 10.0 - 20.0 ug/mL [facility] Specimen Blood - Central Venous Line Narrative Performed At Send after dialysis please [facility] Performing Organization Address City/[facility] Centercomt Phone Number [facility] [address] [place] [address] [facility] * ECG 12 lead (01/10/2018 7:31 AM CDT) Only the most recent of 2 results within the time period is included. Narrative Performed At Ventricular Rate 123 BPM [facility] Atrial Rate 123 BPM P-R Interval 164 ms QRS Duration 88 ms Q-T Interval 316 ms QTC Calculation(Bazett) 452 ms P [place] 61 degrees R [place] 27 degrees T [place] 106 degrees Sinus tachycardia Nonspecific T wave abnormality Prolonged QT Abnormal ECG When compared with ECG of 03-JAN-2018 00:48, Fusion complexes are no longer Present Confirmed by Charlene KELLOGG, BO ([id number]) on 01/12/2018 8:44:48 PM Procedure Note Interface, External Ris In - 01/12/2018 8:44 PM CDT Ventricular Rate 123 BPM Atrial Rate 123 BPM P-R Interval 164 ms QRS Duration 88 ms Q-T Interval 316 ms QTC Calculation(Bazett) 452 ms P [place] 61 degrees R [place] 27 degrees T [place] 106 degrees Sinus tachycardia Nonspecific T wave abnormality Prolonged QT Abnormal ECG When compared with ECG of 03-JAN-2018 00:48, Fusion complexes are no longer Present Confirmed by Charlene KELLOGG BASANT ([id number]) on 01/12/2018 8:44:48 PM Performing Organization Address City/State/Zipcode Phone Number [facility] * XR chest 1 view portable / bedside (01/10/2018 5:28 AM CDT) Only the most recent of 2 results within the time period is included. Narrative Performed At FINAL REPORT Clean [facility] Chest one view. Clinical history: SOB post TDC placement Comparison: Chest radiograph 01/03/2018 Technique: A single frontal view of the chest was obtained. Findings: There is a right IJ double-lumen central venous catheter with tip in the right atrium. There is a left subclavian Port-A-Cath with tip in the right atrium. There is mild pulmonary edema, mildly worsened. There is no pneumothorax or definite pleural effusion. The cardiac silhouette is enlarged. There is a left sided AICD with lead unchanged. Signed: Shani Wu MD Report Verified Date/Time:01/10/2018 06:32:36 Reading Location: [facility] C013 CT Body Reading Room Procedure Note Interface, External Ris In - 01/10/2018 7:09 AM CDT FINAL REPORT Chest one view. Clinical history: SOB post TDC placement Comparison: Chest radiograph 01/03/2018 Technique: A single frontal view of the chest was obtained. Findings: There is a right IJ double-lumen central venous catheter with tip in the right atrium. There is a left subclavian Port-A-Cath with tip in the right atrium. There is mild pulmonary edema, mildly worsened. There is no pneumothorax or definite pleural effusion. The cardiac silhouette is enlarged. There is a left sided AICD with lead unchanged. Signed: Shani Wu MD Report Verified Date/Time: 01/10/2018 06:32:36 Reading Location: [facility] B1 C013Y CT Body Reading Room Performing Organization Address City/[facility] Centercomt Phone Number [facility] * C-Reactive Protein (01/10/2018 4:34 AM CDT) Only the most recent of 2 results within the time period is included. CRP 2.35 (H) 0.00 - 0.50 mg/dL [facility] Specimen Blood - Central Venous Line Performing Organization Address City/[facility] Centercomt Phone Number [facility] [address] [place] [address] [phone] [address] * Lactic acid, venous, whole blood (01/10/2018 4:23 AM CDT) Lactate, Venous 2.7 (H) 0.5 - 2.2 mmol/L [facility] Specimen Blood - Central Venous Line Narrative Performed At Effective 08/17/2015: Units/Reference Range Change [facility] New: 0.5-2.2 mmol/LPrevious: 5-20 mg/dL [facility] Performing Organization Address [facility] Phone Number [facility] [address] [place] [phone] [place] [address] * IR Tunneled Catheter Exchange (01/09/2018 5:40 PM CDT) Narrative Performed At FINAL REPORT [facility] Procedure: Removal replaced damage right internal jugular vein tunneled hemodialysis catheter, 01/09/2018 HISTORY: Venous catheter Anesthesia: General Approach: Right chest Modality: Fluoroscopy, fluoroscopy time: 0.2 minutes, total dose: 1.4 mGy, reference air kerma method TECHNIQUE: This procedure was performed after obtaining written informed consent using all elements maximal sterile barrier technique without immediate postprocedural complication. Using blunt and sharp dissection, the indwelling tunnel dialysis catheter was removed over guidewire. A new 19 cm Duraflow to tunneled dialysis catheter was placed with its tip in the right atrium and secured in place by means of sutures. CONCLUSION: Removal and replacement of damage right jugular tunneled dialysis catheter. Signed: Feng Nascimento MD Report Verified Date/Time:01/09/2018 19:06:03 Reading Location: [address] Body Reading Room Procedure Note Interface, External Ris In - 01/09/2018 7:19 PM CDT FINAL REPORT Procedure: Removal replaced damage right internal jugular vein tunneled hemodialysis catheter, 01/09/2018 HISTORY: Venous catheter Anesthesia: General Approach: Right chest Modality: Fluoroscopy, fluoroscopy time: 0.2 minutes, total dose: 1.4 mGy, reference air kerma method TECHNIQUE: This procedure was performed after obtaining written informed consent using all elements maximal sterile barrier technique without immediate postprocedural complication. Using blunt and sharp dissection, the indwelling tunnel dialysis catheter was removed over guidewire. A new 19 cm Duraflow to tunneled dialysis catheter was placed with its tip in the right atrium and secured in place by means of sutures. CONCLUSION: Removal and replacement of damage right jugular tunneled dialysis catheter. Signed: Feng Nascimento MD Report Verified Date/Time: 01/09/2018 19:06:03 Reading Location: [place] [address] Angio Body Reading Room Performing Organization Address City/State/Zipcode Phone Number GE [facility] * hCG, quantitative, (01/09/2018 4:08 AM CDT) hCG Quant <1 0 - 10 mIU/mL [facility] Specimen Blood - Central Venous Line Narrative Performed At Non- Females: <10 mIU/mL [facility] Females: [facility] Gestation AgeReference Range(mIU/mL) 0.2-1 Week5-50 1-2 [id number] 2-3 Weeks 100-5,000 3-4 Weeks 500-10,000 4-5 Weeks 1,000-50,000 5-6 Weeks10,000-100,000 6-8 Weeks15,000-200,000 2-3 Months 10,000-100,000 Performing Organization Address City/State/Zipcode Phone Number [address] [address] MEDICAL CENTER * PERMANENT LAB REPORT - SCAN (01/07/2018 11:13 AM CDT) Narrative Performed At * Immunofixation electrophoresis (TONYA) (01/06/2018 4:08 PM CDT) IgG 3,413 (H) 540 - 1,822 mg/dL [facility] IgA 483 63 - 484 mg/dL [facility] IgM 130 22 - 293 mg/dL [facility] Serum TONYA Identification No monoclonal bands detected. [facility] Polyclonal distribution of [facility] immunoglobulins. Pathologist: Belkis Styles MD [facility] (electronic signature) [facility] Specimen Blood - Central Venous Line Performing Organization Address [facility] Centercode Phone Number [facility] [address] [place] [address] [facility] * Protein electrophoresis, serum (01/06/2018 4:08 PM CDT) Albumin Fraction 2.6 (L) 3.5 - 5.5 g/dL [facility] Alpha 1 Fraction 0.3 0.2 - 0.4 g/dL [facility] Alpha 2 Fraction 0.8 0.5 - 0.9 g/dL [facility] Beta Fraction 1.0 0.6 - 1.1 g/dL [facility] Gamma Globulin Fraction 3.2 (H) 0.7 - 1.7 g/dL [facility] Interpretation Decreased albumin consistent [facility] with renal protein loss. [facility] Polyclonal elevation of gamma fraction, which may be seen with chronic inflammation and/or recent administration of IVIG. Serum TONYA ordered to exclude presence of small monoclonal protein underlying. Pathologist: Belkis Styles MD [facility] (electronic signature) [facility] Protein, Total 7.8 6.0 - 8.3 gm/dL [facility] Specimen Blood - Central Venous Line Performing Organization Address City/[facility] Centercode Phone Number [facility] [address] [place] [phone] [place] [address] * PTH, intact (01/06/2018 4:08 PM CDT) PTH 80.1 (H) 8.5 - 72.5 pg/mL [facility] Specimen Blood - Central Venous Line Performing Organization Address City/[facility]/Zipcode Phone Number [address] [address] [phone] * Lactate dehydrogenase (LDH) (01/06/2018 4:08 PM CDT) LDH 171 125 - 220 U/L [facility] Specimen Blood - Central Venous Line Performing Organization Address [facility] Center[facility]t [place] [address] [phone] [address] * XR shoulder complete 2 views min left (01/05/2018 10:00 AM CDT) Narrative Performed At FINAL REPORT [facility] LEFT SHOULDER 3 VIEWS HISTORY: Left shoulder pain, shoulder fracture COMPARISON: None FINDINGS: AP internal and external rotation images and a transscapular Y image of the left shoulder were obtained. There is a 2.0 cm craniocaudal by 1.7 cm width bone defect in the lateral aspect of the humeral head. There are a few tiny bone fragments adjacent to this. The margins of this defect are indistinct. If there was a shoulder dislocation, this could represent a large Hill-Sachs fracture related to such, although the fracture margins are less distinct than is typical of a Hill-Sachs fracture. Alternatively, this could represent a pathologic fracture through a lytic bone lesion or bone destruction related to a lytic bone lesion. No additional bony abnormalities are identified in the left shoulder. IMPRESSION: 1. Bone defect in the lateral aspect of the humeral head with adjacent tiny bone fragments. The margins of this bone defect are indistinct concerning for a destructive bone lesion or a pathologic fracture through a pre-existing bone abnormality. Signed: Pallavi Willis MD Report Verified Date/Time:01/05/2018 10:47:29 Reading Location: [address] Reading Room Procedure Note Interface, External Ris In - 01/05/2018 10:49 AM CDT FINAL REPORT LEFT SHOULDER 3 VIEWS HISTORY: Left shoulder pain, shoulder fracture COMPARISON: None FINDINGS: AP internal and external rotation images and a transscapular Y image of the left shoulder were obtained. There is a 2.0 cm craniocaudal by 1.7 cm width bone defect in the lateral aspect of the humeral head. There are a few tiny bone fragments adjacent to this. The margins of this defect are indistinct. If there was a shoulder dislocation, this could represent a large Hill-Sachs fracture related to such, although the fracture margins are less distinct than is typical of a Hill-Sachs fracture. Alternatively, this could represent a pathologic fracture through a lytic bone lesion or bone destruction related to a lytic bone lesion. No additional bony abnormalities are identified in the left shoulder. IMPRESSION: 1. Bone defect in the lateral aspect of the humeral head with adjacent tiny bone fragments. The margins of this bone defect are indistinct concerning for a destructive bone lesion or a pathologic fracture through a pre-existing bone abnormality. Signed: Pallavi Willis MD Report Verified Date/Time: 01/05/2018 10:47:29 Reading Location: [address] Transitional Reading Room Performing Organization Address City/State/Zipcode Phone Number [facility] * XR elbow 3 views min left (01/05/2018 10:00 AM CDT) Narrative Performed At FINAL REPORT [facility] LEFT ELBOW 3 VIEWS HISTORY: Left elbow pain, fracture COMPARISON: No comparison left elbow imaging FINDINGS: AP, oblique, and lateral views of the left elbow were obtained. No fracture or dislocation are identified. No joint space narrowing, osteophyte formation, or erosive changes. No loose bodies are identified. No evidence of a joint effusion. There is diffuse subcutaneous edema. No soft tissue gas is visualized. IMPRESSION: No bony abnormalities are visualized in the left elbow. Signed: Pallavi Willis MD Report Verified Date/Time:01/05/2018 10:51:25 Reading Location: [address] Transitional Reading Room Procedure Note Interface, External Ris In - 01/05/2018 10:53 AM CDT FINAL REPORT LEFT ELBOW 3 VIEWS HISTORY: Left elbow pain, fracture COMPARISON: No comparison left elbow imaging FINDINGS: AP, oblique, and lateral views of the left elbow were obtained. No fracture or dislocation are identified. No joint space narrowing, osteophyte formation, or erosive changes. No loose bodies are identified. No evidence of a joint effusion. There is diffuse subcutaneous edema. No soft tissue gas is visualized. IMPRESSION: No bony abnormalities are visualized in the left elbow. Signed: Pallavi Willis MD Report Verified Date/Time: 01/05/2018 10:51:25 Reading Location: [address] Transitional Reading Room Performing Organization Address [facility] Phone Number [facility] * XR humerus 2 views left (01/05/2018 10:00 AM CDT) Narrative Performed At FINAL REPORT [facility] LEFT HUMERUS 2 VIEWS HISTORY: Left arm pain, humeral fracture COMPARISON: Left shoulder radiographs from today FINDINGS: AP and lateral radiograph of the left humerus were performed. There is a bone defect in the lateral aspect of the humeral head, evaluated in greater detail on the dedicated left shoulder radiograph from today. No other bony abnormalities are identified in the left humerus. Signed: Pallavi Willis MD Report Verified Date/Time:01/05/2018 10:55:40 Reading Location: [address] Transitional Reading Room Procedure Note Interface, External Ris In - 01/05/2018 10:57 AM CDT FINAL REPORT LEFT HUMERUS 2 VIEWS HISTORY: Left arm pain, humeral fracture COMPARISON: Left shoulder radiographs from today FINDINGS: AP and lateral radiograph of the left humerus were performed. There is a bone defect in the lateral aspect of the humeral head, evaluated in greater detail on the dedicated left shoulder radiograph from today. No other bony abnormalities are identified in the left humerus. Signed: Pallavi Willis MD Report Verified Date/Time: 01/05/2018 10:55:40 Reading Location: [address] Transitional Reading Room Performing Organization Address [facility] Phone Number GE RIS * HEMODIALYSIS INPATIENT (01/03/2018 1:43 PM CDT) Narrative Performed At Julieta Braden RN 01/03/20181:43 PM Procedure tolerated well. Vital signs stable. HD duration4 hours UF 4L Lab Results Component Value Date WBC 5.9 01/03/2018 HGB 9.4 (L) 01/03/2018 HCT 31.4 (L) 01/03/2018 MCV 94.6 01/03/2018 PLT 150 01/03/2018 Lab Results Component Value Date GLUCOSE 182 (H) 01/03/2018 CALCIUM 8.0 (L) 01/03/2018 NA 135 (L) 01/03/2018 K 3.4 (L) 01/03/2018 CO2 23 01/03/2018 CL 103 01/03/2018 BUN 19 01/03/2018 CREATININE 2.43 (H) 01/03/2018 No components found for: HEPSAG Vitals: 01/03/18 1330 BP: 130/88 Pulse: 106 Resp: 19 Temp: SpO2: 100% * Hepatitis B surface antigen (01/03/2018 9:16 AM CDT) hepatitis B Surface Ag NON-REACTIVE Nonreactive [facility] Specimen Blood Performing Organization Address City/[facility] Phone Number [address] * Hemoglobin A1c (01/03/2018 9:16 AM CDT) Hemoglobin A1C 6.0 4.3 - 6.1 % [facility] Specimen Blood Performing Organization Address City/[facility] Phone Number [address] * ED ECG Interpretation (01/03/2018 6:35 AM CDT) Narrative Performed At Meghan Montiel MD 01/03/20186:35 AM ECG/EKG Interpretation Date/Time: 01/03/2018 5:09 AM Performed by: MEGHAN MONTIEL Authorized by: MEGHAN MONTIEL The ECG was interpreted by ED physician. The ECG is interpreted as sinus rhythm. Rate is tachycardic. [place] is normal. Clinical Impression: non-specific ECGECG reviewed and does not meet STEMI criteria. Patient tolerance: Patient tolerated the procedure well with no immediate complications * Urinalysis w/ Microscopic (01/03/2018 4:24 AM CDT) Color, UA Yellow [facility] Clarity, UA Hazy [facility] Specific [place], UA 1.016 1.001 - 1.035 [facility] pH, UA 6.0 5.0 - 8.0 [facility] Protein, UA 300 mg/dL (A) Negative [facility] Glucose, UA Negative Negative [facility] Ketones, UA Negative Negative [facility] Bilirubin, UA Negative Negative [facility] Blood, UA Moderate (A) Negative [facility] Nitrite, UA Negative Negative [facility] Leukocytes, UA Large (A) Negative [facility] Urobilinogen, UA 0.2 0.2 - 1.0 mg/dL [facility] RBC, UA 104 /HPF [facility] WBC, UA 57 /HPF [facility] Bacteria, UA Few [facility] Hyaline Casts, UA 27 /LPF [facility] Granular Casts, UA 4 /LPF [facility] Amorphous Crystals Occasional [facility] Specimen Source Urine, Straight Catheter [facility] Specimen Urine - Urine, Straight Catheter Performing Organization Address City/State/Zipcode Phone Number [facility] [address] [place] [address] MEDICAL [facility]ENTER * Troponin I (01/03/2018 1:09 AM CDT) Troponin I 0.02 0.00 - 0.03 ng/mL [facility] Specimen Blood Narrative Performed At Troponin I (TnI) levels must be interpreted in the context of the presenting [facility] symptoms and the clinical findings. Elevated TnI levels indicate myocardial [facility] damage, but are not specific for ischemic heart disease. Elevated TnI levels are seen in patients with other cardiac conditions (including myocarditis and congestive heart failure), and slight TnI elevations occur in patients with other conditions, including sepsis, renal failure, acidosis, acute neurological disease, and persistent tachyarrhythmia. Performing Organization Address City/[facility] Phone Number [address] * B-type natriuretic peptide (01/03/2018 1:09 AM CDT) BNP 3,706 (H) 0 - 100 pg/mL [facility] Specimen Blood Performing Organization Address [facility] Phone Number [address] * Lipase (01/03/2018 1:09 AM CDT) Lipase 7 (L) 8 - 78 U/L [facility] Specimen Blood Performing Organization Address [facility] Phone Number [address] * Amylase (01/03/2018 1:09 AM CDT) Amylase 47 25 - 125 U/L [facility] Specimen Blood Performing Organization Address [facility] Phone Number [address] * Hepatic function panel (01/03/2018 1:09 AM CDT) Protein, Total 7.9 6.0 - 8.3 gm/dL [facility] Albumin 2.4 (L) 3.5 - 5.0 g/dL [facility] Total Bilirubin 0.5 0.2 - 1.2 mg/dL [facility] Bilirubin, Direct 0.3 0.1 - 0.5 mg/dL [facility] Alkaline Phosphatase 133 40 - 150 U/L [facility] AST 7 5 - 34 U/L [facility] ALT 6 6 - 55 U/L [facility] Specimen Blood Performing Organization Address City/State/Zipcode Phone Number [facility] [address] [place] [address] MEDICAL [facility]ENTER after 02/22/2017 Insurance Payer Benefit Subscriber ID Type Phone Address Plan / Group [employer] MEDICAID MEDICAID xxxxxxxxx [place] MED[place]ID - MEDICAID MGD MEDICAID xxxxxxxxx Medicaid CARE [place] Non-Contra NONCONTRAC cted EMILY Advance Directives For more information, please contact: [facility] [address] [place] [phone] Date Inactivated Comments Code Status Date Activated 01/23/2018 6:21 PM Full Code 01/03/2018 7:16 AM This code status was determined by: Patient
--- OUTSIDE RECORDS SUMMARY | 2018-02-23 16:05 | XMS REPORT | Continuity of Care Document ---
Author Author Gavi traci [facility] Interface Address Unknown Phone Unavailable Problems Problem Status Onset Date Classification Date Reported Comments Source OTHER Active 08/30/2015 [facility] Discharge Diagnosis: Chest pain, unspecified 06/21/2015 06/24/2015 [facility] Discharge Diagnosis: UTI 06/21/2015 06/24/2015 [facility] VOMITING CHEST PAIN Active 06/21/2015 [facility] Discharge Diagnosis: Drug-seeking behavior 05/05/2015 05/08/2015 [facility] Discharge Diagnosis: Chronic cystitis 05/05/2015 05/08/2015 [facility] Discharge Diagnosis: Acute Hyperglycemia 05/05/2015 05/08/2015 [facility] Discharge Diagnosis: Noncompliance 05/05/2015 05/08/2015 [facility] Discharge Diagnosis: Chronic abdominal pain 05/05/2015 05/08/2015 [facility] NAUSEA Active 05/05/2015 [facility] Discharge Diagnosis: Nausea, vomiting and diarrhea 04/26/2015 04/29/2015 [facility] Discharge Diagnosis: Chronic renal insufficiency 04/26/2015 04/29/2015 [facility] Discharge Diagnosis: Abdominal pain, chronic, generalized 04/26/2015 04/29/2015 [facility] HEADACHE Active 04/24/2015 [facility] HYPERTENSION Active 03/16/2015 [facility] DIARRHEA/VOMITING Active 03/08/2015 [facility] VOMITING Active 02/23/2015 [facility] PYELONEPHRITIS Active 02/23/2015 [facility] Discharge Diagnosis: HTN 01/25/2015 01/28/2015 [facility] Discharge Diagnosis: Acute on chronic renal failure 01/25/2015 01/28/2015 [facility] Discharge Diagnosis: Nausea and vomiting 01/25/2015 01/28/2015 [facility] Discharge Diagnosis: Acute UTI 01/25/2015 01/28/2015 [facility] CHEST/HEAD HURT/RASH Active 12/12/2014 [facility] Discharge Diagnosis: Abdominal pain 08/14/2014 08/17/2014 [facility] Discharge Diagnosis: Hypertension 08/14/2014 08/17/2014 [facility] Discharge Diagnosis: Vomiting and diarrhea 08/14/2014 08/17/2014 [facility] ABD PAIN/V/D Active 08/13/2014 [facility] Discharge Diagnosis: Acute vomiting 08/10/2014 08/16/2014 [facility] UNABLE TO URINATE Active 08/09/2014 [facility] HEAD INJURY SAT - CONCUSSION SX Active 07/07/2014 [facility] SYNCOPE Active 07/07/2014 [facility] MEMORY LOSS, BLOOD IN STORE, BOD Y PAIN Active 07/06/2014 [facility] Discharge Diagnosis: UTI 07/06/2014 07/09/2014 [facility] Discharge Diagnosis: Hyperglycemia 07/06/2014 07/09/2014 [facility] Discharge Diagnosis: Nausea & vomiting 06/04/2014 06/07/2014 [facility] Discharge Diagnosis: Hyperglycemia without ketosis 06/04/2014 06/07/2014 [facility] URINARY PROBLEMS/CHEST HURTS 4 DAYS Active 06/04/2014 [facility] Discharge Diagnosis: Acute UTI 05/14/2014 05/16/2014 [facility] Discharge Diagnosis: Nausea vomiting and diarrhea 05/14/2014 05/16/2014 [facility] Discharge Diagnosis: Headache, acute 05/14/2014 05/16/2014 [facility] DIARRHEA/PAIN EVERYWHERE Active 05/09/2014 [facility] Discharge Diagnosis: Otitis externa of left ear 03/21/2014 03/23/2014 [facility] Discharge Diagnosis: Acute Hyperglycemia 03/21/2014 03/23/2014 [facility] Discharge Diagnosis: Abdominal pain, recurrent 03/21/2014 03/23/2014 [facility] Discharge Diagnosis: Otalgia of left ear 03/21/2014 03/23/2014 [facility] 225.2 - HENNY BRENDAN CEREBR Active 03/18/2014 [facility] EAR PAIN Active 03/07/2014 [facility] RASH Active 01/29/2014 [facility] LABS Active 12/08/[address] [facility] Chronic tension-type headache<sup>2</sup> Active 10/29/2013 Problem 06/24/2015 Data migrated from [employer] on 12/07/14. [facility] LOSSING BLOOD IN URINE, BLEEDING OUT OF Active 10/26/[address] [facility] NAUSEA; ABD PAIN Active 10/22/2013 [facility] Discharge Diagnosis: Tension headache 10/22/2013 10/25/2013 [facility] Discharge Diagnosis: Vomiting 10/12/2013 10/15/2013 [facility] Discharge Diagnosis: Pelvic pain in female 09/26/2013 09/29/2013 [facility] ABD PAIN, DIZZINESS Active 09/21/2013 [facility] Discharge Diagnosis: Acute anal fissure 09/21/2013 09/24/2013 [facility] Discharge Diagnosis: Constipation 09/21/2013 09/24/2013 [facility] ABDOMINAL PAIN Active 09/19/2013 [facility] ABD PAIN, VOMITING Active 09/12/2013 [facility] POSSIBLE PITUITARY HEMORRHAGE Active 08/28/[address] [facility] LEFT SIDE NUMB 1 WEEK Active 08/28/2013 [facility] NAUSEA AND HEADACHE Active 07/29/2013 [facility] Discharge Diagnosis: Diarrhea 07/28/2013 08/03/2013 [facility] VOMITING, HEADACHE, WEAKNESS Active 07/28/2013 [facility] Discharge Diagnosis: Urinary tract infection 07/17/2013 07/19/2013 [facility] N/V Active 10/15/[address] [facility] SEVERE ABDOMINAL PAIN/ RIGHT SIDE WEAKNE Active 10/15/[address] [facility] Anemia Active Problem 06/24/2015 [facility] Anxiety Active Problem 06/24/2015 [facility] Bladder dysfunction Resolved Problem 06/24/2015 [facility] Catheter<sup>1</sup> Resolved Problem 06/24/2015 straight caths 4X/daily [facility] Chronic back pain Active Problem 06/24/2015 [facility] Chronic kidney disease , stage III (moderate)(<span ID="[id number]">Confirmed</span>) Resolved Problem 06/24/2015 [facility] Diabetes Active Problem 06/24/2015 [facility] DM - Diabetes mellitus Active Problem 06/24/2015 [facility] Finding of palpation of heart Active Problem 06/24/2015 [facility] Gastroparesis Active Problem 06/24/2015 [facility] HTN - Hypertension Active Problem 06/24/2015 [facility] HTN (<span ID="[id number]">Confirmed</span>) Active Problem 06/24/2015 [facility] Hypothyroidism Active Problem 06/24/2015 [facility] IBS (<span ID="[id number]">Confirmed</span>) Active Problem 06/24/2015 [facility] Neurogenic bladder Active Problem 06/24/2015 [facility] Palpitations Active Problem 06/24/2015 [facility] 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 HTN - Hypertension Resolved Problem 10/24/[address] 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 PYELONEPHRITIS NOS Active [facility] SYNCOPE AND COLLAPSE Active [facility] CHRONIC KIDNEY DIS NOS Active [facility] GASTROPARESIS Active [facility] ADMINISTRTVE ENCOUNT NOS Active [facility] Medications Medication Details Route Status Patient Instructions Ordering Provider Order Date Source Morphine 4 mg, Route: IVP, Drug form: INJ, ONCE, Dosing Weight 63.807, kg, Priority: STAT, Start date: 06/21/15 18:20:00, Stop date: 06/21/15 18:20:00 Inactive 06/22/2015 [facility] ciprofloxacin 500 mg oral tablet 500 mg=1 tab, PO, Q12H, for UTI, X 3 day, # 6 tab, 0 Refill(s) Active 06/22/2015 [facility] Rocephin 1 gm, Route: IVPB, ONCE, Dosing Weight 63.807, kg, Priority: STAT, Start date: 06/21/15 17:30:00, Stop date: 06/21/15 17:30:00Notes: (Same As: Rocephin). Use with 100 mL NS and infuse over 30 min MEDICATION WASTE Product Size: 1000 mg Product Wasted: ___ mg Inactive 06/21/2015 [facility] Sodium Chloride 0.154 MEQ/ML Injectable Solution 500 mL, 500 ml/hr, Infuse Over: 1 hr, Route: IV, 500, Drug form: INJ, ONCE, Priority: STAT, Dosing Weight 63.807 kg, Start date: 06/21/15 16:20:00, Duration: 1 doses or times, Stop date: 06/21/15 16:20:00 Inactive 06/21/2015 [facility] Phenergan 12.5 mg, 50 mL, Route: IVPB, Drug form: SOLN, ONCE, Dosing Weight 63.807, kg, Priority: STAT, Start date: 06/21/15 16:19:00, Stop date: 06/21/15 16:19:00 Inactive 06/21/2015 [facility] Benadryl 12.5 mg, 0.25 mL, Route: IVP, Drug form: INJ, ONCE, Dosing Weight 63.807, kg, Priority: STAT, Start date: 06/21/15 16:19:00, Stop date: 06/21/15 16:19:00Notes: (Same as: Benadryl) Inactive 06/21/2015 [facility] Morphine 4 mg, 1 mL, Route: IVP, Drug form: INJ, ONCE, Dosing Weight 63.807, kg, Priority: STAT, Start date: 06/21/15 16:18:00, Stop date: 06/21/15 16:18:00Notes: (Same as:MORPhine Sulfate) Inactive 06/21/2015 [facility] Saline Flush 0.9% 10 mL, Route: IVP, Drug Form: INJ, Dosing Weight 63.807, kg, PRN, PRN Line Flush, Start date: 06/21/15 16:18:00, Duration: 30 day, Stop date: 07/21/15 17:17:00Notes: (Same as: BD Posiflush) Inactive 06/21/2015 [facility] Acetaminophen 300 MG / Codeine Phosphate 60 MG Oral Tablet 1 tab, PO, Q6H, X 3 day, # 12 tab, 0 Refill(s) Active 05/05/2015 [facility] Dicyclomine 20 mg, 2 mL, Route: IM, Drug form: INJ, ONCE, Dosing Weight 61.364, kg, Priority: STAT, Start date: 05/05/15 13:04:00, Stop date: 05/05/15 13:04:00Notes: (Same as: Bentyl) Inactive 05/05/2015 [facility] Insulin regular 12 unit, 0.12 mL, Route: IVP, Drug form: SOLN, ONCE, Dosing Weight 61.364, kg, Priority: STAT, Start date: 05/05/15 11:57:00, Stop date: 05/05/15 11:57:00Notes: (Same as: Humulin R) Roll in palms of hands gently; Do not shake vigorously. "single patient use only" (Restricted to patients requiring a dose > 60 units) WASTE: F/P - Black; E - [employer]ash [employer] Stable for 28 days at room temperature Expires in days from Date Inactive 05/05/2015 [facility] Morphine 2 mg, 1 mL, Route: IVP, Drug form: INJ, ONCE, Dosing Weight 61.364, kg, Priority: STAT, Start date: 05/05/15 10:41:00, Stop date: 05/05/15 10:41:00Notes: (Same as:MORPhine Sulfate) Inactive 05/05/2015 [facility] Saline Flush 0.9% 10 mL, Route: IVP, Drug Form: INJ, Dosing Weight 61.364, kg, PRN, PRN Line Flush, Start date: 05/05/15 10:41:00, Duration: 30 day, Stop date: 06/04/15 10:40:00Notes: (Same as: BD Posiflush) Inactive 05/05/2015 [facility] Diphenhydramine 25 mg, 0.5 mL, Route: IM, Drug form: INJ, ONCE, Dosing Weight 61.364, kg, Priority: STAT, Start date: 05/05/15 10:41:00, Stop date: 05/05/15 10:41:00Notes: (Same as: Benadryl) Inactive 05/05/2015 [facility] Promethazine 12.5 mg, 50 mL, Route: IVPB, Drug form: SOLN, ONCE, Dosing Weight 61.364, kg, Priority: STAT, Start date: 05/05/15 10:41:00, Stop date: 05/05/15 10:41:00 Inactive 05/05/2015 [facility] Sulfamethoxazole 800 MG / Trimethoprim 160 MG Oral Tablet [Bactrim] 1 tab, PO, BID, X 10 day, # 20 tab, 0 Refill(s) Active 04/27/2015 [facility] digoxin 125 mcg (0.125 mg) oral tablet 125 microgram=1 tab, PO, BID, # 28 tab, 0 Refill(s) Active 04/27/2015 [facility] labetalol 100 mg oral tablet 100 mg=1 tab, PO, BID, # 28 tab, 0 Refill(s) Active 04/27/2015 [facility] Phenergan 12.5 mg, Route: IVPB, ONCE, Dosing Weight 60.909, kg, Priority: STAT, Start date: 04/26/15 19:16:00, Stop date: 04/26/15 19:16:00 Inactive 04/27/2015 [facility] Morphine 2 mg, Route: IVP, Drug form: INJ, ONCE, Dosing Weight 60.909, kg, Priority: STAT, Start date: 04/26/15 19:16:00, Stop date: 04/26/15 19:16:00 Inactive 04/27/2015 [facility] Labetalol 20 mg, 4 mL, Route: IVP, Drug form: INJ, ONCE, Dosing Weight 60.909, kg, Priority: STAT, Start date: 04/26/15 18:07:00, Stop date: 04/26/15 18:07:00Notes: (Same as: Normodyne, Trandate) Push over 2 minutes Give bolus over 2-3 minutes. Inactive 04/27/2015 [facility] Benadryl 25 mg, 0.5 mL, Route: IVP, Drug form: INJ, ONCE, Dosing Weight 60.909, kg, Priority: STAT, Start date: 04/26/15 18:07:00, Stop date: 04/26/15 18:07:00Notes: (Same as: Benadryl) Inactive 04/27/2015 [facility] Metoclopramide 10 mg, 2 mL, Route: IVP, Drug form: INJ, ONCE, Dosing Weight 60.909, kg, Priority: STAT, Start date: 04/26/15 18:07:00, Stop date: 04/26/15 18:07:00Notes: (Same as: Reglan) Inactive 04/27/2015 [facility] Sodium Chloride 0.154 MEQ/ML Injectable Solution 250 mL, 1000 ml/hr, Infuse Over: 15 minutes, Route: IV, 250, Drug form: INJ, ONCE, Priority: STAT, Dosing Weight 60.909 kg, Start date: 04/26/15 18:07:00, Duration: 1 doses or times, Stop date: 04/26/15 18:07:00 Inactive 04/27/2015 [facility] Saline Flush 0.9% 10 mL, Route: IVP, Drug Form: INJ, Dosing Weight 60.909, kg, PRN, PRN Line Flush, Start date: 04/26/15 18:07:00, Duration: 30 day, Stop date: 05/26/15 18:06:00Notes: (Same as: BD Posiflush) No Longer Active 04/27/2015 [facility] digoxin 125 mcg (0.125 mg) oral tablet 125 microgram=1 tab, PO, Daily, # 30 tab, 0 Refill(s) Active 03/19/2015 [facility] Sucralfate 100 MG/ML Oral Suspension 1 gm=10 ml, PO, Before Meals & Bedtime, # 200 ml, 1 Refill(s) Active 03/19/2015 [facility] 24 HR Nifedipine 90 MG Extended Release Tablet 90 mg=1 tab, PO, Daily, # 90 tab, 0 Refill(s) Active 03/19/2015 [facility] metoprolol tartrate 100 mg oral tablet 100 mg=1 tab, PO, BID, # 180 tab, 0 Refill(s) Active 03/19/2015 [facility] 24 HR Isosorbide Mononitrate 30 MG Extended Release Tablet [Imdur] 30 mg=1 tab, PO, QAM, # 30 tab, 0 Refill(s) Active 03/19/2015 [facility] bumetanide 1 mg oral tablet 1 mg=1 tab, PO, Daily, 0.5 tab daily if notice leg swelling for 2 days., # 90 tab, 0 Refill(s) Active 03/19/2015 [facility] ferrous sulfate 325 mg oral enteric coated tablet 325 mg=1 tab, PO, Daily, # 90 tab, 0 Refill(s) Active 03/19/2015 [facility] Insulin, Aspart, Human See Instructions, SUB-Q TID-Before Meals, 0 Refill(s) Active 03/19/2015 [facility] Metoclopramide 10 MG Oral Tablet [Reglan] 10 mg=1 tab, PO, QID, # 360 tab, 0 Refill(s) Inactive 03/19/2015 [facility] Levemir 70 unit, SUB-Q, BID, 0 Refill(s) Active 03/19/2015 [facility] Digoxin 0.25 mg, 1 tab, Route: PO, Drug form: TAB, Daily, Dosing Weight 60.4, kg, Start date: 03/19/15 9:00:00, Duration: 30 day, Stop date: 04/17/15 9:00:00Notes: Take on an Empty Stomach (Same as: Lanoxin) Inactive 03/19/2015 [facility] Phenergan 25 mg, 1 tab, Route: PO, Drug form: TAB, Q4H, Dosing Weight 60.4, kg, PRN Nausea & Vomiting, Start date: 03/19/15 7:44:00, Duration: 30 day, Stop date: 04/18/15 7:43:00Notes: (Same as: Phenergan) Inactive 03/19/2015 [facility] MS Contin 15 mg, 1 tab, Route: PO, Drug form: ERTAB, Q6H, Dosing Weight 60.4, kg, PRN Pain Score 7-10, Start date: 03/19/15 7:43:00, Duration: 30 day, Stop date: 04/18/15 7:42:00Notes: Do not crush (Same as:Or amorph SR, MS Contin) Inactive 03/19/2015 [facility] 72 HR Scopolamine 0.0139 MG/HR Transdermal Patch 1 patch, Route: TOP, Drug Form: ERFILM, Dosing Weight 60.4, kg, Q72H, Start date: 03/17/15 22:00:00, Duration: 30 day, Stop date: 04/13/15 22:00:00Notes: Change patch every 72 hours (Same as: Transderm-Scop) No Longer Active 03/18/2015 [facility] Meclizine 25 mg, 1 tab, Route: PO, Drug form: TAB, TID, Dosing Weight 60.4, kg, PRN Dizziness, Start date: 03/17/15 21:50:00, Duration: 30 day, Stop date: 04/16/15 21:49:00Notes: (Same as: Antivert) No Longer Active 03/18/2015 [facility] Magnesium Sulfate 2 gm, 50 mL, Route: IVPB, Drug form: INJ, Q2H, Dosing Weight 60.4, Start date: 03/17/15 20:00:00, Duration: 2 doses or times, Stop date: 03/17/15 22:00:00 Inactive 03/18/2015 [facility] Protonix 40 mg, Route: IV, Drug form: INJ, BID-Before Meals, Dosing Weight 64.148, kg, Start date: 03/17/15 16:30:00, Duration: 30 day, Stop date: 04/16/15 7:30:00Notes: For IV push reconstitute with 10 ml 0.9% sodium chloride and push over 2 minutes. (Same as: Protonix) No Longer Active 03/17/2015 [facility] Benadryl 25 mg, 0.5 mL, Route: IV, Drug form: INJ, QID, Dosing Weight 60.4, kg, PRN as needed for itching, Start date: 03/17/15 15:49:00, Duration: 30 day, Stop date: 04/16/15 15:48:00Notes: (Same as: Benadry l) No Longer Active 03/17/2015 [facility] Morphine 4 mg, 1 mL, Route: IVP, Drug form: INJ, Q4H, Dosing Weight 60.4, kg, PRN Pain Score 7-10, Start date: 03/17/15 15:14:00, Duration: 30 day, Stop date: 04/16/15 15:13:00Notes: (Same as:MORPhine Sulfate) No Longer Active 03/17/2015 [facility] Protonix 40 mg, 1 tab, Route: PO, Drug form: ECTAB, BID- Before Meals, Dosing Weight 64.148, kg, Start date: 03/17/15 11:30:00, Duration: 30 day, Stop date: 04/16/15 7:30:00Notes: Tablet should not be chewed or crushed. (Same as: Protonix) Inactive 03/17/2015 [facility] Metoclopramide 10 MG Oral Tablet [Reglan] 10 mg, 1 tab, Route: PO, Drug form: TAB, QID-Before Meals, Dosing Weight 64.148, kg, Start date: 03/17/15 11:30:00, Duration: 30 day, Stop date: 04/16/15 7:30:00Notes: (Same as: Reglan) Take 30 min before meals No Longer Active 03/17/2015 [facility] Digoxin 250 microgram, 1 mL, Route: IV, Drug form: INJ, Daily, Dosing Weight 64.148, kg, Start date: 03/17/15 11:00:00, Duration: 30 day, Stop date: 04/16/15 9:00:00Notes: (Same as: Lanoxin) No Longer Active 03/17/2015 [facility] Morphine 1 mg, 0.5 mL, Route: IVP, Drug form: INJ, Q2H, Dosing Weight 60.4, kg, PRN Pain Score 7-10, Start date: 03/17/15 10:09:00, Duration: 30 day, Stop date: 04/16/15 10:08:00Notes: (Same as:MORPhine Sulfate) Inactive 03/17/2015 [facility] normal saline 0.9% IV 1,000 mL 1,000 mL, Rate: 150 ml/hr, Infuse over: 6.7 hr, Route: IV, Dosing Weight 60.4 kg, Total Volume: 1,000, Start date: 03/17/15 10:07:00, Stop date: 04/16/15 10:06:00 No Longer Active 03/17/2015 [facility] Phenergan 25 mg, 50 mL, Route: IVPB, Drug form: SOLN, Q6H, Dosing Weight 60.4, kg, PRN as needed for nausea/vomiting, Start date: 03/17/15 10:05:00, Duration: 30 day, Stop date: 04/16/15 10:04:00 No Longer Active 03/17/2015 [facility] meclizine 25 mg oral tablet 25 mg=1 tab, PO, TID, PRN dizziness, 0 Refill(s) Active 03/17/2015 [facility] cefpodoxime 200 mg oral tablet 200 mg=1 tab, PO, Q12H, 0 Refill(s) Active 03/17/2015 [facility] Metoclopramide 10 MG Oral Tablet [Reglan] 10 mg=1 tab, PO, QID, 0 Refill(s) Active 03/17/2015 [facility] 24 HR Nifedipine 90 MG Extended Release Tablet 90 mg, 1 tab, Route: PO, Drug form: ERTAB, Q12H, Dosing Weight 64.148, kg, Start date: 03/17/15 9:00:00, Duration: 30 day, Stop date: 04/15/15 21:00:00 Inactive 03/17/2015 [facility] Lopressor 100 mg, Route: PO, Drug form: TAB, BID, Dosing Weight 64.148, kg, Start date: 03/17/15 9:00:00, Duration: 30 day, Stop date: 04/15/15 17:00:00 Inactive 03/17/2015 [facility] heparin 5,000 unit, 1 mL, Route: SUB-Q, Drug form: INJ, Q12H, Dosing Weight 64.148, kg, Start date: 03/17/15 9:00:00, Duration: 30 day, Stop date: 04/15/15 21:00:00Notes: porcine heparin No Longer Active 03/17/2015 [facility] Isosorbide 30 mg, 1 tab, Route: PO, Drug form: ERTAB, BID, Dosing Weight 64.148, kg, Start date: 03/17/15 9:00:00, Duration: 30 day, Stop date: 04/15/15 17:00:00Notes: (Same as:Imdur) "Do Not Crush" Take on empty stomach/ full glass of water. Do not crush No Longer Active 03/17/2015 [facility] Digoxin 250 microgram, 1 tab, Route: PO, Drug form: TAB, Daily, Dosing Weight 64.148, kg, Start date: 03/17/15 9:00:00, Duration: 30 day, Stop date: 04/15/15 9:00:00Notes: Take on an Empty Stomach (Same as: Lanoxin) Inactive 03/17/2015 [facility] 72 HR Scopolamine 0.0139 MG/HR Transdermal Patch 1 patch, Route: TOP, Drug Form: ERFILM, Dosing Weight 64.148, kg, ONCE, Start date: 03/17/15 7:50:00, Stop date: 03/17/15 7:50:00Notes: Change patch every 72 hours (Same as: Transderm-Scop) Inactive 03/17/2015 [facility] Reglan 10 mg, 2 mL, Route: IVP, Drug form: INJ, Q6H, Dosing Weight 64.148, kg, PRN Nausea & Vomiting, Priority: NOW, Start date: 03/17/15 7:49:00, Duration: 30 day, Stop date: 04/16/15 7:48:00Notes: (Same as: Reglan) No Longer Active 03/17/2015 [facility] Cardene 40 mg in NS 200 mL (Titrate.) IV 40 mg 40 mg, 200 mL, Rate: Titrate, Start Dose: 5 mg/hr, Titration: 2.5 mg/hr every 15 minutes, Goal(s): systolic of 140, Max Dose: 15 mg/hr, Route: IV, Dosing Weight 64.148 kg, Total Volume: 200, Priority: NOW, Start date: 03/17/15 7:48:00, Duration: 30 da...Notes: Same as: Cardene Concentration: (0.2 mg /1 ml ) No Longer Active 03/17/2015 [facility] Glucagon 1 mg, Route: IM, Drug form: PDR/INJ, PRN, Dosing Weight 64.148, kg, PRN Blood Glucose Results, Start date: 03/17/15 7:39:00, Duration: 30 day, Stop date: 04/16/15 7:38:00 No Longer Active 03/17/2015 [facility] Dextrose 50% Syringe 25 gm, 50 mL, Route: IVP, Drug Form: INJ, Dosing Weight 64.148, kg, PRN, PRN Blood Glucose Results, Start date: 03/17/15 7:39:00, Duration: 30 day, Stop date: 04/16/15 7:38:00 No Longer Active 03/17/2015 [facility] Insulin, Aspart, Human 15 unit, 0.15 mL, Route: SUB-Q, Drug form: SOLN, TID-Before Meals, Dosing Weight 64.148, kg, PRN Blood Glucose Results, Start date: 03/17/15 7:39:00, Duration: 30 day, Stop date: 04/16/15 7:38:00Notes: Roll in palms of hands gently; Do not shake vigorously. (Same as: NovoLOG) "single patient use only" Stable for 28 days at room temperature. Expires in days from Date No Longer Active 03/17/2015 [facility] Lopressor 100 mg, 1 tab, Route: PO, Drug form: TAB, BID, Dosing Weight 64.148, kg, Priority: NOW, Start date: 03/17/15 7:36:00, Duration: 30 day, Stop date: 04/15/15 21:00:00Notes: (Same as: Lopressor) No Longer Active 03/17/2015 [facility] 24 HR Nifedipine 90 MG Extended Release Tablet 90 mg, 1 tab, Route: PO, Drug form: ERTAB, Q12H, Dosing Weight 64.148, kg, Priority: NOW, Start date: 03/17/15 7:36:00, Duration: 30 day, Stop date: 04/15/15 21:00:00Notes: (Same as: Procardia XL) "Do Not Crush" "Avoid grapefruit and grapefruit juice" No Longer Active 03/17/2015 [facility] Alprazolam 0.5 mg, 1 tab, Route: PO, Drug form: TAB, TID, Dosing Weight 64.148, kg, PRN Anxiety, Start date: 03/17/15 7:30:00, Duration: 30 day, Stop date: 04/16/15 7:29:00Notes: With food or milk (Same as: Xanax) No Longer Active 03/17/2015 [facility] bumetanide 1 mg oral tablet See Instructions, 0.5 tab PO dailuy when you noticed Leg swelling for 2-3 days, # 30 tab, 0 Refill(s) Active 03/13/2015 [facility] Benadryl 25 mg, 0.5 mL, Route: IVP, Drug form: INJ, QID, Dosing Weight 64.148, kg, PRN as needed for itching, Priority: STAT, Start date: 03/13/15 1:09:00, Duration: 30 day, Stop date: 04/12/15 1:08:00Notes: (Same as: Benadryl) Inactive 03/13/2015 [facility] Bumex 0.5 mg, 0.5 tab, Route: PO, Drug form: TAB, Daily, Dosing Weight 64.148, kg, Start date: 03/12/15 9:00:00, Duration: 30 day, Stop date: 04/10/15 9:00:00Notes: (Same As: Bumex) No Longer Active 03/12/2015 [facility] cefpodoxime 200 mg, 1 tab, Route: PO, Drug form: TAB, Q12H, Dosing Weight 64.148, kg, Start date: 03/11/15 21:00:00, Duration: 30 day, Stop date: 04/10/15 9:00:00Notes: With food. (Same As: Vantin) No Longer Active 03/12/2015 [facility] MS Contin 30 mg, 1 tab, Route: PO, Drug form: ERTAB, Q6H, Dosing Weight 64.148, kg, PRN Pain Score 6-10, Start date: 03/11/15 7:55:00, Duration: 30 day, Stop date: 04/10/15 7:54:00Notes: Do not crush (Same as: Oramorph SR, MS Contin) No Longer Active 03/11/2015 [facility] Benadryl 25 mg, 1 tab, Route: PO, Drug form: TAB, Q6H, Dosing Weight 64.148, kg, PRN Allergies, Start date: 03/11/15 7:55:00, Duration: 30 day, Stop date: 04/10/15 7:54:00 No Longer Active 03/11/2015 [facility] Lasix 20 mg, 2 mL, Route: IVP, Drug form: INJ, Daily, Dosing Weight 64.148, kg, Start date: 03/10/15 11:00:00, Duration: 30 day, Stop date: 04/09/15 9:00:00Notes: (Same as: Lasix) No Longer Active 03/10/2015 [facility] Reglan 10 mg, 2 mL, Route: IVP, Drug form: INJ, Q6H, Dosing Weight 64.148, kg, Start date: 03/09/15 22:00:00, Duration: 30 day, Stop date: 04/08/15 18:00:00Notes: (Same as: Reglan) No Longer Active 03/10/2015 [facility] Insulin Glargine 70 unit, Route: SUB-Q, Drug form: SOLN, Bedtime, Dosing Weight 64.148, kg, Start date: 03/09/15 21:00:00, Duration: 30 day, Stop date: 04/07/15 21:00:00 No Longer Active 03/10/2015 [facility] Levemir FlexPen 70 unit, 0.7 mL, Route: SUB-Q, Drug form: INJ, Bedtime, Start date: 03/09/15 21:00:00, Duration: 30 day, Stop date: 04/07/15 21:00:00Notes: Same as Levemir Do not hold insulin without contacting prescriber "single patient use only" No Longer Active 03/10/2015 [facility] 24 HR Nifedipine 90 MG Extended Release Tablet 90 mg, 1 tab, Route: PO, Drug form: ERTAB, Q12H, Dosing Weight 64.148, kg, Start date: 03/09/15 9:00:00, Duration: 30 day, Stop date: 04/07/15 21:00:00Notes: (Same as: Procardia XL) "Do Not Crush" "Avoid grapefruit and grapefruit juice" No Longer Active 03/09/2015 [facility] 24 HR Metoprolol Tartrate 100 MG Extended Release Tablet [Toprol] 100 mg, 2 tab, Route: PO, Drug form: ERTAB, Daily, Start date: 03/09/15 9:00:00, Duration: 30 day, Stop date: 04/07/15 9:00:00Notes: (Same as: Toprol XL) May split tab, but do not crush. No Longer Active 03/09/2015 [facility] Isosorbide 30 mg, 1 tab, Route: PO, Drug form: ERTAB, BID, Dosing Weight 64.148, kg, Start date: 03/09/15 9:00:00, Duration: 30 day, Stop date: 04/07/15 21:00:00Notes: (Same as:Imdur) "Do Not Crush" Take on empty stomach/ full glass of water. Do not crush No Longer Active 03/09/2015 [facility] Digoxin 250 microgram, 1 tab, Route: PO, Drug form: TAB, Daily, Dosing Weight 64.148, kg, Start date: 03/09/15 9:00:00, Duration: 30 day, Stop date: 04/07/15 9:00:00Notes: Take on an Empty Stomach (Same as: Lanoxin) No Longer Active 03/09/2015 [facility] ferrous sulfate 325 MG Oral Tablet [Feosol] 325 mg, 1 tab, Route: PO, Drug form: TAB, TID-Meals, Dosing Weight 64.148, kg, Start date: 03/09/15 8:00:00, Duration: 30 day, Stop date: 04/07/15 17:00:00Notes: Give with food. iron elemental [id number] as ferrous sulfate Dose=___mg elemental iron No Longer Active 03/09/2015 [facility] Magnesium Sulfate 2 gm, 50 mL, Route: IVPB, Drug form: INJ, ONCE, Dosing Weight 64.148, kg, Start date: 03/09/15 7:49:00, Duration: 2 hr, Stop date: 03/09/15 7:49:00 Inactive 03/09/2015 [facility] Benadryl 25 mg, 0.5 mL, Route: IVP, Drug form: INJ, QID, Dosing Weight 64.148, kg, PRN Allergic reaction, Priority: NOW, Start date: 03/08/15 22:17:00, Duration: 30 day, Stop date: 04/07/15 22:16:00Notes: (Same as: Benadryl) No Longer Active 03/09/2015 [facility] Ativan 1 mg, 0.5 mL, Route: IVP, Drug form: INJ, QID, Dosing Weight 64.148, kg, PRN Anxiety, Priority: NOW, Start date: 03/08/15 22:17:00, Duration: 30 day, Stop date: 04/07/15 22:16:00Notes: (Same as: Ativan) No Longer Active 03/09/2015 [facility] Meclizine 25 mg, 1 tab, Route: PO, Drug form: TAB, TID, Dosing Weight 64.148, kg, Start date: 03/08/15 22:00:00, Duration: 30 day, Stop date: 04/07/15 14:00:00Notes: (Same as: Antivert) No Longer Active 03/09/2015 [facility] Ambien 5 mg, 1 tab, Route: PO, Drug form: TAB, Bedtime, PRN Sleep, Start date: 03/08/15 21:50:00, Duration: 30 day, Stop date: 04/07/15 21:49:00Notes: (Same As: Ambien) No Longer Active 03/09/2015 [facility] Sodium Chloride 0.154 MEQ/ML Injectable Solution 1,000 mL, Rate: 55 ml/hr, Infuse over: 18.2 hr, Route: IV, Dosing Weight 64.148 kg, Total Volume: 1,000, Start date: 03/08/15 21:44:00, Duration: 30 day, Stop date: 04/07/15 21:43:00 No Longer Active 03/09/2015 [facility] Ambien 10 mg, Route: PO, Drug form: TAB, Bedtime, Dosing Weight 64.148, kg, PRN Sleep, Start date: 03/08/15 21:43:00, Duration: 30 day, Stop date: 04/07/15 21:42:00 Inactive 03/09/2015 [facility] Methocarbamol 1,000 mg, 2 tab, Route: PO, Drug form: TAB, Q6H, Dosing Weight 64.148, kg, PRN Spasm, Start date: 03/08/15 21:42:00, Duration: 30 day, Stop date: 04/07/15 21:41:00Notes: (Same as:Robaxin) No Longer Active 03/09/2015 [facility] Insulin, Aspart, Human 12 unit, 0.12 mL, Route: SUB-Q, Drug form: SOLN, Sliding Scale, Dosing Weight 64.148, kg, PRN Blood Glucose Results, Start date: 03/08/15 21:40:00, Duration: 30 day, Stop date: 04/07/15 21:39:00Notes: Roll in palms of hands gently; Do not shake vigorously. (Same as: NovoLOG) "single patient use only" Stable for 28 days at room temperature. Expires in days from Date No Longer Active 03/09/2015 [facility] Dextrose 50% Syringe 25 gm, 50 mL, Route: IVP, Drug Form: INJ, Dosing Weight 64.148, kg, PRN, PRN Blood Glucose Results, Start date: 03/08/15 21:40:00, Duration: 30 day, Stop date: 04/07/15 21:39:00 No Longer Active 03/09/2015 [facility] Glucagon 1 mg, Route: IM, Drug form: PDR/INJ, PRN, Dosing Weight 64.148, kg, PRN Blood Glucose Results, Start date: 03/08/15 21:40:00, Duration: 30 day, Stop date: 04/07/15 21:39:00 No Longer Active 03/09/2015 [facility] Bentyl 20 mg, 1 tab, Route: PO, Drug form: TAB, QID-After Meals, Dosing Weight 64.148, kg, Start date: 03/08/15 21:00:00, Duration: 30 day, Stop date: 04/07/15 18:00:00Notes: (Same as: Bentyl) No Longer Active 03/09/2015 [facility] Protonix 40 mg, Route: IVP, Drug form: INJ, BID-Before Meals, Dosing Weight 64.148, kg, Patient is NPO, Priority: STAT, Start date: 03/08/15 19:41:00, Duration: 30 day, Stop date: 04/07/15 16:30:00Notes: For IV push reconstitute with 10 ml 0.9% sodium chloride and push over 2 minutes. (Same as: Protonix) No Longer Active 03/09/2015 [facility] Sodium Chloride 0.154 MEQ/ML Injectable Solution 1,000 mL, Rate: 75 ml/hr, Infuse over: 13.3 hr, Route: IV, Dosing Weight 64.148 kg, Total Volume: 1,000, Start date: 03/08/15 19:41:00, Duration: 30 day, Stop date: 04/07/15 19:40:00 Inactive 03/09/2015 [facility] Acetaminophen 650 mg, 20.3 mL, Route: PO, Drug form: LIQ, Q4H, Dosing Weight 64.148, kg, PRN Pain 1-3/Temp > 100.4 F, Start date: 03/08/15 19:41:00, Duration: 30 day, Stop date: 04/07/15 19:40:00Notes: Max darius augmacytur=[id number]/day (4 gm/day). (Same as: Tylenol) No Longer Active 03/09/2015 [facility] Alprazolam 0.25 MG Oral Tablet [Xanax] 0.25 mg, 1 tab, Route: PO, Drug form: TAB, Q6H, Dosing Weight 64.148, kg, PRN Anxiety, Start date: 03/08/15 19:41:00, Duration: 30 day, Stop date: 04/07/15 19:40:00Notes: With food or milk (Same as: Xanax) No Longer Active 03/09/2015 [facility] Gas-X Ultra Softgels 160 mg, 2 tab, Route: PO, Drug form: CHEWTAB, Q4H, Dosing Weight 64.148, kg, PRN Gas, Start date: 03/08/15 19:41:00, Duration: 30 day, Stop date: 04/07/15 19:40:00Notes: (Same as: Mylicon) No Longer Active 03/09/2015 [facility] GI cocktail 30 ml, Route: PO, Drug Form: SUSP, Dosing Weight 64.148, kg, Q4H, PRN Dyspnea, NOW, Start date: 03/08/15 19:41:00, Duration: 30 day, Stop date: 04/07/15 19:40:00, DYSPEPSIANotes: G.I. Cocktail=antacid with simethicone 22.5 mL - lidocaine viscous 7.5 mL No Longer Active 03/09/2015 [facility] Morphine 4 mg, 1 mL, Route: IVP, Drug form: INJ, Q4H, Dosing Weight 64.148, kg, PRN Pain Score 6-10, Start date: 03/08/15 19:41:00, Duration: 3 day, Stop date: 03/11/15 19:40:00Notes: (Same as:MORPhine Sulfate) No Longer Active 03/09/2015 [facility] Hydralazine 20 mg, 1 mL, Route: IVP, Drug form: INJ, Q6H, Dosing Weight 64.148, kg, PRN Other -See Comment, Priority: STAT, Start date: 03/08/15 19:41:00, Duration: 30 day, Stop date: 04/07/15 19:40:00, SBP>/=160 OR DBP>/=90Notes: (Same as: Apresoline) Push over 5 minutes No Longer Active 03/09/2015 [facility] Docusate Sodium 100 MG Oral Capsule [Colace] 100 mg, 1 cap, Route: PO, Drug form: CAP, BID, Dosing Weight 64.148, kg, PRN Constipation, Start date: 03/08/15 19:41:00, Duration: 30 day, Stop date: 04/07/15 19:40:00Notes: (Same as: Colace) (Do Not Crush) No Longer Active 03/09/2015 [facility] Phenergan 25 mg, 50 mL, Route: IVP Central, Drug form: SOLN, Q6H, Dosing Weight 64.148, kg, PRN Other -See Comment, Start date: 03/08/15 19:41:00, Duration: 30 day, Stop date: 04/07/15 19:40:00, BREAKTHROUGH NAUSEA/VOMITING No Longer Active 03/09/2015 [facility] Labetalol 10 mg, 2 mL, Route: IVP, Drug form: INJ, Q6H, Dosing Weight 64.148, kg, PRN Other -See Comment, Priority: STAT, Start date: 03/08/15 19:41:00, Duration: 30 day, Stop date: 04/07/15 19:40:00, SBP >/=175 OR HR >/=110Notes: (Same as: Normodyne, Trandate) Push over 2 minutes Give bolus over 2-3 minutes. No Longer Active 03/09/2015 [facility] Hydralazine 10 mg, Route: IV, ONCE, Dosing Weight 64.148, kg, Start date: 03/08/15 18:33:00, Stop date: 03/08/15 18:33:00 Inactive 03/09/2015 [facility] Hydralazine 20 mg, 1 mL, Route: IVP, Drug form: INJ, ONCE, Dosing Weight 64.148, kg, Priority: STAT, Start date: 03/08/15 15:20:00, Stop date: 03/08/15 15:20:00Notes: (Same as: Apresoline) Push over 5 minutes Inactive 03/08/2015 [facility] Phenergan 25 mg, 50 mL, Route: IVPB, Drug form: SOLN, ONCE, Dosing Weight 64.148, kg, Priority: STAT, Start date: 03/08/15 15:20:00, Stop date: 03/08/15 15:20:00 Inactive 03/08/2015 [facility] Benadryl 25 mg, 0.5 mL, Route: IVP, Drug form: INJ, ONCE, Dosing Weight 64.148, kg, Priority: STAT, Start date: 03/08/15 15:19:00, Stop date: 03/08/15 15:19:00Notes: (Same as: Benadryl) Inactive 03/08/2015 [facility] Morphine 4 mg, 1 mL, Route: IVP, Drug form: INJ, ONCE, Dosing Weight 64.148, kg, Priority: STAT, Start date: 03/08/15 15:19:00, Stop date: 03/08/15 15:19:00Notes: (Same as:MORPhine Sulfate) Inactive 03/08/2015 [facility] Saline Flush 0.9% 10 mL, Route: IVP, Drug Form: INJ, Dosing Weight 64.148, kg, PRN, PRN Line Flush, Start date: 03/08/15 15:19:00, Duration: 30 day, Stop date: 04/07/15 15:18:00Notes: (Same as: BD Posiflush) No Longer Active 03/08/2015 [facility] promethazine 25 mg oral tablet 25 mg=1 tab, PO, Q6H, PRN as needed for nausea/vomiting, 0 Refill(s) Active 03/08/2015 [facility] methocarbamol 500 mg oral tablet 1,000 mg=2 tab, PO, Q6H, PRN muscle pain, 0 Refill(s) Active 03/08/2015 [facility] Acetaminophen 300 MG / Codeine Phosphate 30 MG Oral Tablet [Tylenol with Codeine #3] 1 tab, PO, Q4H, PRN Pain Score 1-3, 0 Refill(s) Inactive 03/08/2015 [facility] ALPRAZOLam 0.5 mg oral tablet, disintegrating 0.5 mg=1 tab, PO, TID, PRN Anxiety, 0 Refill(s) Active 03/08/2015 [facility] Diphenhydramine Hydrochloride 25 MG Oral Tablet [Benadryl] 25 mg=1 tab, PO, QID, PRN as needed for allergy symptoms, 0 Refill(s) Active 03/08/2015 [facility] Calcitriol 0.25 microgram, 1 cap, Route: PO, Drug form: CAP, Q-M-W-F, Dosing Weight 57.33, kg, Start date: 02/28/15 9:00:00, Duration: 30 day, Stop date: 03/28/15 9:00:00Notes: (Same As: Rocaltrol) No Longer Active 02/28/2015 [facility] metoprolol tartrate 100 mg oral tablet 100 mg=1 tab, PO, BID, # 60 tab, 0 Refill(s) Active 02/26/2015 [facility] Metoclopramide 10 MG Oral Tablet [Reglan] 10 mg=1 tab, PO, QID, X 30 day, # 120 tab, 0 Refill(s) Active 02/26/2015 [facility] DME Addition #1 1 ea, MISC, Daily, dispense 100 LANTUS SOLOSTAR PEN NEEDLES, # 1 ea, 0 Refill(s) Active 02/26/2015 [facility] Insulin Aspart 100 unit/ml - (High CD) See Special Instructions, SUB-Q, TID-Before Meals, Check blood sugar before breakfast, lunch, and dinner, and inject correction doses: Inject 3 unit if Sugar 150-199, Inject 6 units if Sugar 200-249, Inject 9 units if Sugar 250-299, Inject 12 units if... Active 02/26/2015 [facility] methocarbamol 500 mg oral tablet 500 mg, PO, Q6H, PRN as needed for muscle pain/relaxation, X 5 day, # 30 tab, 0 Refill(s) Active 02/26/2015 [facility] Phenergan 25 mg, 1 tab, Route: PO, Drug form: TAB, Q4H, Dosing Weight 57.33, kg, PRN Nausea & Vomiting, Priority: STAT, Start date: 02/26/15 11:24:00, Duration: 30 day, Stop date: 03/28/15 11:23:00Notes: (Same as: Phenergan) Inactive 02/26/2015 [facility] Benadryl 25 mg, 1 tab, Route: PO, Drug form: TAB, Bedtime, Dosing Weight 57.33, kg, PRN as needed for insomnia, Priority: STAT, Start date: 02/26/15 11:24:00, Duration: 30 day, Stop date: 03/28/15 11:23:00 Inactive 02/26/2015 [facility] Morphine 30 mg, 2 tab, Route: PO, Drug form: TAB, Q6H, Dosing Weight 57.33, kg, PRN Pain Score 7-10, Priority: STAT, Start date: 02/26/15 11:24:00, Duration: 30 day, Stop date: 03/28/15 11:23:00Notes: (Same a s:MORPhine Sulfate) Inactive 02/26/2015 [facility] Sucralfate 100 MG/ML Oral Suspension 1 gm=10 mL, PO, Q6H, scheduled, # 1200 mL, 0 Refill(s) Active 02/26/2015 [facility] promethazine 25 mg oral tablet 25 mg, PO, Q6H, PRN as needed for nausea/vomiting, X 5 day, # 30 tab, 0 Refill(s) Active 02/26/2015 [facility] 24 HR Nifedipine 90 MG Extended Release Tablet 90 mg=1 tab, PO, Q12H, # 60 tab, 0 Refill(s) Active 02/26/2015 [facility] isosorbide mononitrate 30 mg oral tablet, extended release 30 mg, PO, BID, # 60 tab, 0 Refill(s) Active 02/26/2015 [facility] Diphenhydramine Hydrochloride 25 MG Oral Tablet [Benadryl] 25 mg, PO, QID, PRN as needed for allergy symptoms, X 5 day, # 24 tab, 0 Refill(s) Active 02/26/2015 [facility] ALPRAZOLam 0.5 mg oral tablet, disintegrating 0.5 mg, PO, TID, PRN as needed for anxiety, X 5 day, # 15 tab, 0 Refill(s) Active 02/26/2015 [facility] 3 ML Insulin Glargine 100 UNT/ML Prefilled Syringe [Lantus] 70 unit, SUB-Q, Bedtime, HOLD IF FS Active 02/26/2015 [facility] Acetaminophen 300 MG / Codeine Phosphate 30 MG Oral Tablet [Tylenol with Codeine #3] 1 tab, PO, Q4H, PRN Pain Score 1-3, X 5 day, # 30 tab, 0 Refill(s) Active 02/26/2015 [facility] cefpodoxime 200 mg oral tablet 200 mg=1 tab, PO, Q12H, X 14 day, # 28 tab, 0 Refill(s) Active 02/26/2015 [facility] Insulin, Aspart, Human 4 unit, 0.04 mL, Route: SUB-Q, Drug form: SOLN, Bedtime, Dosing Weight 57.33, kg, PRN Blood Glucose Results, Start date: 02/25/15 17:46:00, Duration: 30 day, Stop date: 03/27/15 17:45:00Notes: Roll in palms of hands gently; Do not shake vigorously. (Same as: NovoLOG) "single patient use only" Stable for 28 days at room temperature. Expires in days from Date No Longer Active 02/25/2015 [facility] Dextrose 50% Syringe 25 gm, 50 mL, Route: IVP, Drug Form: INJ, Dosing Weight 57.33, kg, PRN, PRN Blood Glucose Results, Start date: 02/25/15 17:46:00, Duration: 30 day, Stop date: 03/27/15 17:45:00 No Longer Active 02/25/2015 [facility] Glucagon 1 mg, Route: IM, Drug form: PDR/INJ, PRN, Dosing Weight 57.33, kg, PRN Blood Glucose Results, Start date: 02/25/15 17:46:00, Duration: 30 day, Stop date: 03/27/15 17:45:00 No Longer Active 02/25/2015 [facility] Morphine 4 mg, 1 mL, Route: IVP, Drug form: INJ, Q4H, Dosing Weight 57.33, kg, PRN Pain Score 4-6, Start date: 02/25/15 13:21:00, Duration: 30 day, Stop date: 03/27/15 13:20:00Notes: (Same as:MORPhine Sulfate) No Longer Active 02/25/2015 [facility] Sodium Chloride 0.154 MEQ/ML Injectable Solution 1,000 mL, Rate: 75 ml/hr, Infuse over: 13.3 hr, Route: IV, Dosing Weight 57.33 kg, Total Volume: 1,000, Start date: 02/25/15 9:39:00, Duration: 30 day, Stop date: 03/27/15 9:38:00 No Longer Active 02/25/2015 [facility] Hydralazine 10 mg, 0.5 mL, Route: IVP, Drug form: INJ, Q4H, Dosing Weight 57.33, kg, PRN Elevated BP, Start date: 02/24/15 19:59:00, Duration: 30 day, Stop date: 03/26/15 19:58:00, SBP>/=150 OR DBP>/=90Notes: (S berna as: Apresoline) Push over 5 minutes No Longer Active 02/25/2015 [facility] Rocephin 1 gm, Route: IV, QPM, Dosing Weight 59.091, kg, Start date: 02/24/15 18:00:00, Duration: 30 day, Stop date: 03/25/15 18:00:00Notes: (Same As: Rocephin). Use with 100 mL NS and infuse over 30 min MEDICATION WASTE Product Size: 1000 mg Product Wasted: 0 mg Inactive 02/25/2015 [facility] cefepime 1 gm, Route: IVPB, [id number], Dosing Weight 57.33, kg, (CrCl >/=50 ml/min), Start date: 02/24/15 17:00:00, Duration: 30 day, Stop date: 03/26/15 5:00:00Notes: (Same As: Maxipime) MEDICATION WASTE Product Size: 1000 mg Product Wasted: ___ mg No Longer Active 02/24/2015 [facility] Morphine 2 mg, 1 mL, Route: IVP, Drug form: INJ, Q4H, Dosing Weight 57.33, kg, PRN Pain Score 4-6, Start date: 02/24/15 16:39:00, Duration: 30 day, Stop date: 03/26/15 16:38:00Notes: (Same as:MORPhine Sulfate) No Longer Active 02/24/2015 [facility] Iohexol 50 mL, Route: PO, Drug Form: SOLN, Dosing Weight 57.33, kg, ONCE, Start date: 02/24/15 16:37:00, Stop date: 02/24/15 16:37:00Notes: (Same as:Omnipaque 240) 12,000mg/50ml Inactive 02/24/2015 [facility] Acetaminophen 300 MG / Codeine Phosphate 30 MG Oral Tablet [Tylenol with Codeine #3] 1 tab, Route: PO, Drug Form: TAB, Dosing Weight 57.33, kg, Q4H, PRN Pain Score 1-3, Routine, Start date: 02/24/15 16:13:00, Duration: 30 day, Stop date: 03/26/15 16:12:00Notes: Do not exceed 4gm/day of acetaminophen. (Same as: Tylenol with Codeine # 3) No Longer Active 02/24/2015 [facility] Benadryl 25 mg, 0.5 mL, Route: IV, Drug form: INJ, TID, Dosing Weight 57.33, kg, PRN as needed for itching, Priority: STAT, Start date: 02/24/15 14:16:00, Duration: 30 day, Stop date: 03/26/15 14:15:00Notes: (Same as: Benadryl) No Longer Active 02/24/2015 [facility] Metoclopramide 5 MG Oral Tablet [Reglan] 10 mg, 1 tab, Route: PO, Drug form: TAB, QID, Dosing Weight 57.33, kg, Start date: 02/24/15 9:00:00, Duration: 30 day, Stop date: 03/25/15 21:00:00Notes: (Same as: Reglan) Take 30 min before meals No Longer Active 02/24/2015 [facility] Digoxin 250 microgram, 1 tab, Route: PO, Drug form: TAB, Daily, Dosing Weight 57.33, kg, Start date: 02/24/15 9:00:00, Duration: 30 day, Stop date: 03/25/15 9:00:00Notes: Take on an Empty Stomach (Same as: Lanoxin) No Longer Active 02/24/2015 [facility] 24 HR Nifedipine 90 MG Extended Release Tablet 90 mg, 1 tab, Route: PO, Drug form: ERTAB, BID, Dosing Weight 57.33, kg, Start date: 02/24/15 9:00:00, Duration: 30 day, Stop date: 03/25/15 15:00:00Notes: (Same as: Procardia XL) "Do Not Crush" "Avoid grapefruit and grapefruit juice" No Longer Active 02/24/2015 [facility] Levemir FlexPen 70 unit, 0.7 mL, Route: SUB-Q, Drug form: INJ, Daily, Start date: 02/24/15 9:00:00, Duration: 30 day, Stop date: 03/25/15 9:00:00Notes: Same as Levemir Do not hold insulin without contacting prescriber "single patient use only" No Longer Active 02/24/2015 [facility] Labetalol 200 mg, 1 tab, Route: PO, Drug form: TAB, BID, Dosing Weight 57.33, kg, Start date: 02/24/15 9:00:00, Duration: 30 day, Stop date: 03/25/15 17:00:00Notes: With food. (Same as:Trandate, Normodyne) Inactive 02/24/2015 [facility] Isosorbide 30 mg, 1 tab, Route: PO, Drug form: ERTAB, BID, Dosing Weight 57.33, kg, Start date: 02/24/15 9:00:00, Duration: 30 day, Stop date: 03/25/15 17:00:00Notes: (Same as:Imdur) "Do Not Crush" Take on empty stomach/ full glass of water. Do not crush No Longer Active 02/24/2015 [facility] Lantus Route: SUB-Q, Daily, Dosing Weight 57.33, kg, Start date: 02/24/15 9:00:00, Duration: 30 day, Stop date: 03/25/15 9:00:00 No Longer Active 02/24/2015 [facility] Meclizine 25 mg, 1 tab, Route: PO, Drug form: TAB, TID, Dosing Weight 57.33, kg, Start date: 02/24/15 9:00:00, Duration: 30 day, Stop date: 03/25/15 17:00:00Notes: (Same as: Antivert) No Longer Active 02/24/2015 [facility] ferrous sulfate 325 MG Oral Tablet [Feosol] 325 mg, 1 tab, Route: PO, Drug form: TAB, TID-Meals, Dosing Weight 57.33, kg, Start date: 02/24/15 8:00:00, Duration: 30 day, Stop date: 03/25/15 17:00:00Notes: Give with food. iron elemental [id number] as ferrous sulfate Dose=___mg elemental iron No Longer Active 02/24/2015 [facility] Insulin regular Route: SUB-Q, Before Meals & Bedtime, Dosing Weight 57.33, kg, Start date: 02/24/15 7:30:00, Duration: 30 day, Stop date: 03/25/15 21:00:00 Inactive 02/24/2015 [facility] Insulin, Aspart, Human 1 unit, 0.01 mL, Route: SUB-Q, Drug form: SOLN, Bedtime, Dosing Weight 57.33, kg, PRN Blood Glucose Results, Start date: 02/24/15 7:03:00, Duration: 30 day, Stop date: 03/26/15 7:02:00Notes: Roll in palms of hands gently; Do not shake vigorously. (Same as: NovoLOG) "single patient use only" Stable for 28 days at room temperature. Expires in days from Date No Longer Active 02/24/2015 [facility] Dextrose 50% Syringe 12.5 gm, 25 mL, Route: IVP, Drug Form: INJ, Dosing Weight 57.33, kg, PRN, PRN Blood Glucose Results, Start date: 02/24/15 7:03:00, Duration: 30 day, Stop date: 03/26/15 7:02:00 No Longer Active 02/24/2015 [facility] Glucagon 1 mg, Route: IM, Drug form: PDR/INJ, PRN, Dosing Weight 57.33, kg, PRN Blood Glucose Results, Start date: 02/24/15 7:03:00, Duration: 30 day, Stop date: 03/26/15 7:02:00 No Longer Active 02/24/2015 [facility] Morphine 4 mg, 1 mL, Route: IV, Drug form: INJ, Q4H, Dosing Weight 57.33, kg, PRN Pain Score 6-10, Start date: 02/24/15 0:16:00, Duration: 30 day, Stop date: 03/26/15 0:15:00Notes: (Same as:MORPhine Sulfate) Inactive 02/24/2015 [facility] Phenergan 12.5 mg, 50 mL, Route: IVPB, Drug form: SOLN, Q6H, Dosing Weight 57.33, kg, PRN Nausea & Vomiting, Start date: 02/24/15 0:15:00, Duration: 30 day, Stop date: 03/26/15 0:14:00 No Longer Active 02/24/2015 [facility] Benadryl 12.5 mg, 0.25 mL, Route: IV, Drug form: INJ, TID, Dosing Weight 57.33, kg, PRN as needed for itching, Start date: 02/24/15 0:15:00, Duration: 30 day, Stop date: 03/26/15 0:14:00Notes: (Same as: Benadryl) Inactive 02/24/2015 [facility] Sodium Bicarbonate 650 mg, 1 tab, Route: PO, Drug form: TAB, Q6H, Dosing Weight 57.33, kg, Start date: 02/24/15 0:00:00, Duration: 30 day, Stop date: 03/25/15 18:00:00Notes: "Dissolve tablet in a glass of water prior to oral administration. STOMACH WARNING: To avoid serious injury, do not take until tablet is completely dissolved. It is very important not to take this product when overly full from food or drink." No Longer Active 02/24/2015 [facility] Benadryl 25 mg, 1 tab, Route: PO, Drug form: TAB, QID, Dosing Weight 57.33, kg, Start date: 02/23/15 23:44:00, Duration: 30 day, Stop date: 03/25/15 22:00:00 No Longer Active 02/24/2015 [facility] Sucralfate 100 MG/ML Oral Suspension 1 gm, 10 mL, Route: PO, Drug form: SUSP, Q6H, Dosing Weight 57.33, kg, PRN See Nurse's Notes, Start date: 02/23/15 22:59:00, Duration: 30 day, Stop date: 03/25/15 22:58:00Notes: Enteral feeds may interfere with the absorption of this medication. Shake well. Take 1 hr before or 2 hrs after antacids, dairy pdt, minerals & meals. (Same As: Carafate) No Longer Active 02/24/2015 [facility] metoprolol tartrate 100 mg, 1 tab, Route: PO, Drug form: TAB, Q12H, Dosing Weight 57.33, kg, Start date: 02/23/15 22:57:00, Duration: 30 day, Stop date: 03/25/15 21:00:00Notes: (Same as: Lopressor) No Longer Active 02/24/2015 [facility] Protonix 40 mg, 1 tab, Route: PO, Drug form: ECTAB, Q12H, Dosing Weight 57.33, kg, Start date: 02/23/15 22:56:00, Duration: 30 day, Stop date: 03/25/15 21:00:00Notes: Tablet should not be chewed or crushed. (Same as: Protonix) No Longer Active 02/24/2015 [facility] Hydralazine 10 mg, 0.5 mL, Route: IV, Drug form: INJ, Q6H, Dosing Weight 57.33, kg, PRN Other -See Comment, Systolic BP >160, Start date: 02/23/15 22:45:00, Duration: 30 day, Stop date: 03/25/15 22:44:00Notes: (Same as: Apresoline) Push over 5 minutes No Longer Active 02/24/2015 [facility] Morphine 2 mg, 1 mL, Route: IVP, Drug form: INJ, Q2H, Dosing Weight 57.33, kg, PRN Pain Score 7-10, Start date: 02/23/15 22:44:00, Duration: 30 day, Stop date: 03/25/15 22:43:00Notes: (Same as:MORPhine Sulfate) No Longer Active 02/24/2015 [facility] MS Contin 30 mg, 1 tab, Route: PO, Drug form: ERTAB, Q6H, Dosing Weight 57.33, kg, PRN Pain Score 6-10, Start date: 02/23/15 22:43:00, Duration: 30 day, Stop date: 03/25/15 22:42:00Notes: Do not crush (Same as :Oramorph SR, MS Contin) No Longer Active 02/24/2015 [facility] Promethazine 25 mg, 1 tab, Route: PO, Drug form: TAB, Q6H, Dosing Weight 57.33, kg, PRN as needed for nausea/vomiting, Start date: 02/23/15 22:43:00, Duration: 30 day, Stop date: 03/25/15 22:42:00Notes: (Same as: Phenergan) No Longer Active 02/24/2015 [facility] Ambien 5 mg, 1 tab, Route: PO, Drug form: TAB, Bedtime, Dosing Weight 57.33, kg, PRN Sleep, Start date: 02/23/15 22:43:00, Duration: 30 day, Stop date: 03/25/15 22:42:00Notes: (Same As: Ambien) No Longer Active 02/24/2015 [facility] Docusate 100 mg, 1 cap, Route: PO, Drug form: CAP, BID, Dosing Weight 57.33, kg, PRN Constipation, Start date: 02/23/15 22:42:00, Duration: 30 day, Stop date: 03/25/15 22:41:00Notes: (Same as: Colace) (Do Not Crush) No Longer Active 02/24/2015 [facility] Lorazepam 0.5 mg, 1 tab, Route: PO, Drug form: TAB, TID, Dosing Weight 57.33, kg, PRN Anxiety, Start date: 02/23/15 22:42:00, Duration: 30 day, Stop date: 03/25/15 22:41:00Notes: (Same as: Ativan) No Longer Active 02/24/2015 [facility] Alprazolam 0.5 mg, 1 tab, Route: PO, Drug form: TAB, TID, Dosing Weight 57.33, kg, PRN Anxiety, Start date: 02/23/15 22:41:00, Duration: 30 day, Stop date: 03/25/15 22:40:00Notes: With food or milk (Same as: Xanax) No Longer Active 02/24/2015 [facility] enalaprilat 1.25 mg, Route: IV, ONCE, Dosing Weight 59.091, kg, Start date: 02/23/15 20:53:00, Stop date: 02/23/15 20:53:00 Inactive 02/24/2015 [facility] Metoprolol 5 mg, Route: IVP, Drug form: INJ, ONCE, Dosing Weight 59.091, kg, Priority: STAT, Start date: 02/23/15 20:53:00, Stop date: 02/23/15 20:53:00 Inactive 02/24/2015 [facility] Morphine 2 mg, 1 mL, Route: IVP, Drug form: INJ, ONCE, Dosing Weight 59.091, kg, Priority: STAT, Start date: 02/23/15 19:23:00, Stop date: 02/23/15 19:23:00Notes: (Same as:MORPhine Sulfate) Inactive 02/24/2015 [facility] Promethazine 12.5 mg, 50 mL, Route: IVPB, Drug form: SOLN, ONCE, Dosing Weight 59.091, kg, Priority: STAT, Start date: 02/23/15 19:23:00, Stop date: 02/23/15 19:23:00 Inactive 02/24/2015 [facility] Diphenhydramine 25 mg, 0.5 mL, Route: IVP, Drug form: INJ, ONCE, Dosing Weight 59.091, kg, Priority: STAT, Start date: 02/23/15 19:23:00, Stop date: 02/23/15 19:23:00Notes: (Same as: Benadryl) Inactive 02/24/2015 [facility] Sodium Chloride 0.154 MEQ/ML Injectable Solution 1,000 mL, Rate: 125 ml/hr, Infuse over: 8 hr, Route: IV, Dosing Weight 59.091 kg, Total Volume: 1,000, Start date: 02/23/15 18:45:00, Duration: 30 day, Stop date: 03/25/15 18:44:00 No Longer Active 02/24/2015 [facility] Saline Flush 0.9% 10 ml, Route: IVP, Drug Form: INJ, Dosing Weight 59.091, kg, PRN, PRN Line Flush, Start date: 02/23/15 18:45:00, Duration: 30 day, Stop date: 03/25/15 18:44:00Notes: (Same as: BD Posiflush) No Longer Active 02/24/2015 [facility] Ceftriaxone 1 gm, Route: IVPB, ONCE, Dosing Weight 59.091, kg, Priority: STAT, Start date: 02/23/15 18:11:00, Stop date: 02/23/15 18:11:00Notes: (Same As: Rocephin). Use with 100 mL NS and infuse over 30 min MEDICATION WASTE Product Size: 1000 mg Product Wasted: 0 mg Inactive 02/24/2015 [facility] Morphine 2 mg, 1 mL, Route: IVP, Drug form: INJ, ONCE, Dosing Weight 59.091, kg, Priority: STAT, Start date: 02/23/15 16:40:00, Stop date: 02/23/15 16:40:00Notes: (Same as:MORPhine Sulfate) Inactive 02/23/2015 [facility] Saline Flush 0.9% 10 mL, Route: IVP, Drug Form: INJ, Dosing Weight 59.091, kg, PRN, PRN Line Flush, Start date: 02/23/15 16:40:00, Duration: 30 day, Stop date: 03/25/15 16:39:00Notes: (Same as: BD Posiflush) Inactive 02/23/2015 [facility] Promethazine 12.5 mg, 50 mL, Route: IVPB, Drug form: SOLN, ONCE, Dosing Weight 59.091, kg, Priority: STAT, Start date: 02/23/15 16:40:00, Stop date: 02/23/15 16:40:00 Inactive 02/23/2015 [facility] Diphenhydramine 25 mg, 0.5 mL, Route: IVP, Drug form: INJ, ONCE, Dosing Weight 59.091, kg, Priority: STAT, Start date: 02/23/15 16:39:00, Stop date: 02/23/15 16:39:00Notes: (Same as: Benadryl) Inactive 02/23/2015 [facility] Clonidine 0.1 mg, 1 tab, Route: PO, Drug form: TAB, Q12H, Dosing Weight 60.182, kg, Start date: 02/17/15 21:00:00, Duration: 30 day, Stop date: 03/19/15 9:00:00Notes: (Same As: Catapres) Inactive 02/18/2015 [facility] metoprolol tartrate 100 mg oral tablet 100 mg=1 tab, PO, BID, # 60 tab, 0 Refill(s) Active 02/17/2015 [facility] ferrous sulfate 325 MG Oral Tablet [Feosol] 325 mg=1 tab, PO, TID, # 90 tab, 0 Refill(s) Active 02/17/2015 [facility] Promethazine Hydrochloride 50 MG Rectal Suppository [Phenergan] 50 mg=1 supp, NH, Q6H, PRN Nausea & Vomiting, X 3 day, # 12 supp, 0 Refill(s) Active 02/17/2015 [facility] metoprolol tartrate 50 mg, 1 tab, Route: PO, Drug form: TAB, Q12H, Dosing Weight 60.182, kg, Start date: 02/16/15 21:00:00, Duration: 30 day, Stop date: 03/18/15 9:00:00Notes: (Same as: Lopressor) No Longer Active 02/17/2015 [facility] Protonix 40 mg, Route: IVP, Drug form: INJ, BID-Before Meals, Dosing Weight 60.182, kg, Start date: 02/16/15 16:30:00, Duration: 30 day, Stop date: 03/18/15 7:30:00Notes: For IV push reconstitute with 10 ml 0.9% sodium chloride and push over 2 minutes. (Same as: Protonix) No Longer Active 02/16/2015 [facility] Hydralazine 20 mg, 1 mL, Route: IVP, Drug form: INJ, Q4H, Dosing Weight 60.182, kg, PRN Elevated BP, Start date: 02/16/15 16:00:00, Duration: 30 day, Stop date: 03/18/15 15:59:00Notes: (Same as: Apresoline) Push over 5 minutes No Longer Active 02/16/2015 [facility] Ativan 1 mg, 0.5 mL, Route: IVP, Drug form: INJ, Q6H, Dosing Weight 60.182, kg, PRN Anxiety, Start date: 02/16/15 9:16:00, Duration: 30 day, Stop date: 03/18/15 9:15:00Notes: (Same as: Ativan) No Longer Active 02/16/2015 [facility] Levemir 5 unit, 0.05 mL, Route: SUB-Q, Drug form: INJ, ONCE, Dosing Weight 60.182, kg, Start date: 02/15/15 9:22:00, Stop date: 02/15/15 9:22:00Notes: Same as Levemir Do not hold insulin without contacting p rescriber "single patient use only" Inactive 02/15/2015 [facility] Digoxin 250 microgram, 1 tab, Route: PO, Drug form: TAB, Daily, Dosing Weight 60.182, kg, Start date: 02/14/15 9:00:00, Duration: 30 day, Stop date: 03/15/15 9:00:00Notes: Take on an Empty Stomach (Same as: Lanoxin) No Longer Active 02/14/2015 [facility] heparin 5,000 unit, 1 mL, Route: SUB-Q, Drug form: INJ, Q12H, Dosing Weight 60.182, kg, Start date: 02/14/15 9:00:00, Duration: 30 day, Stop date: 03/15/15 21:00:00Notes: porcine heparin No Longer Active 02/14/2015 [facility] Protonix 40 mg, Route: IVP, Drug form: INJ, Before Breakfast, Dosing Weight 60.182, kg, Start date: 02/14/15 7:30:00, Duration: 30 day, Stop date: 03/15/15 7:30:00Notes: For IV push reconstitute with 10 ml 0.9% sodium chloride and push over 2 minutes. (Same as: Protonix) No Longer Active 02/14/2015 [facility] Levemir 15 unit, 0.15 mL, Route: SUB-Q, Drug form: INJ, Q12H, Dosing Weight 60.182, kg, Start date: 02/13/15 21:00:00, Stop date: 03/15/15 9:00:00Notes: Same as Levemir Do not hold insulin without contacting pr escriber "single patient use only" No Longer Active 02/14/2015 [facility] Ambien 10 mg, Route: PO, Bedtime, Dosing Weight 60.182, kg, Start date: 02/13/15 21:00:00, Duration: 30 day, Stop date: 03/14/15 21:00:00 Inactive 02/14/2015 [facility] 24 HR Nifedipine 90 MG Extended Release Tablet 90 mg, 1 tab, Route: PO, Drug form: ERTAB, Q12H, Dosing Weight 60.182, kg, Start date: 02/13/15 21:00:00, Duration: 30 day, Stop date: 03/15/15 9:00:00Notes: (Same as: Procardia XL) "Do Not Crush" "Avoid grapefruit and grapefruit juice" No Longer Active 02/14/2015 [facility] metoprolol tartrate 50 mg, 1 tab, Route: PO, Drug form: TAB, Q12H, Dosing Weight 60.182, kg, Start date: 02/13/15 21:00:00, Duration: 30 day, Stop date: 03/15/15 9:00:00Notes: (Same as: Lopressor) Inactive 02/14/2015 [facility] Levaquin 750 mg, 150 mL, Route: IV, Drug form: SOLN, [id number], Dosing Weight 60.182, kg, Start date: 02/13/15 20:00:00, Duration: 30 day, Stop date: 03/13/15 20:00:00Notes: (Same as:Levaquin) No Longer Active 02/14/2015 [facility] Hydralazine 10 mg, 0.5 mL, Route: IV, Drug form: INJ, Q6H, Dosing Weight 60.182, kg, Start date: 02/13/15 18:00:00, Stop date: 02/16/15 16:42:22Notes: (Same as: Apresoline) Push over 5 minutes No Longer Active 02/14/2015 [facility] Benadryl 25 mg, 0.5 mL, Route: IV, Drug form: INJ, TID, Dosing Weight 60.182, kg, Start date: 02/13/15 17:00:00, Duration: 30 day, Stop date: 03/15/15 13:00:00Notes: (Same as: Benadryl) No Longer Active 02/13/2015 [facility] Isosorbide 30 mg, 1 tab, Route: PO, Drug form: ERTAB, BID, Dosing Weight 60.182, kg, Start date: 02/13/15 17:00:00, Duration: 30 day, Stop date: 03/15/15 15:00:00Notes: (Same as:Imdur) "Do Not Crush" Take on empty stomach/ full glass of water. Do not crush No Longer Active 02/13/2015 [facility] Meclizine 25 mg, 1 tab, Route: PO, Drug form: TAB, TID, Dosing Weight 60.182, kg, Start date: 02/13/15 17:00:00, Duration: 30 day, Stop date: 03/15/15 13:00:00Notes: (Same as: Antivert) No Longer Active 02/13/2015 [facility] Morphine 4 mg, 1 mL, Route: IV, Drug form: INJ, Q3H, Dosing Weight 60.182, kg, PRN Other -See Comment, Start date: 02/13/15 16:33:00, Duration: 30 day, Stop date: 03/15/15 16:32:00Notes: (Same as:MORPhine Sulfate) No Longer Active 02/13/2015 [facility] Phenergan 25 mg, 50 mL, Route: IVPB, Drug form: SOLN, Q8H, Dosing Weight 60.182, kg, PRN as needed for nausea/vomiting, Start date: 02/13/15 16:23:00, Duration: 30 day, Stop date: 03/15/15 16:22:00 No Longer Active 02/13/2015 [facility] Ativan 0.5 mg, 0.25 mL, Route: IV, Drug form: INJ, Q6H, Dosing Weight 60.182, kg, PRN as needed for anxiety, Start date: 02/13/15 16:23:00, Duration: 30 day, Stop date: 03/15/15 16:22:00Notes: (Same as: Ativan) No Longer Active 02/13/2015 [facility] NS 1,000 mL 1,000 mL, Rate: 125 ml/hr, Infuse over: 8 hr, Route: IV, Dosing Weight 60.182 kg, Total Volume: 1,000, Start date: 02/13/15 16:20:00, Duration: 30 day, Stop date: 03/15/15 16:19:00 No Longer Active 02/13/2015 [facility] Enoxaparin 30 mg, 0.3 mL, Route: SUB-Q, Drug form: INJ, [id number], Dosing Weight 60.182, kg, Start date: 02/13/15 16:00:00, Duration: 30 day, Stop date: 03/14/15 16:00:00Notes: (Same as: Lovenox) No Longer Active 02/13/2015 [facility] Hydralazine 10 mg, Route: IV, ONCE, Dosing Weight 60.182, kg, Start date: 02/13/15 15:50:00, Stop date: 02/13/15 15:50:00 Inactive 02/13/2015 [facility] Ambien 5 mg, 1 tab, Route: PO, Drug form: TAB, Bedtime, PRN Sleep, Start date: 02/13/15 15:46:00, Duration: 30 day, Stop date: 03/15/15 15:45:00Notes: (Same As: Ambien) No Longer Active 02/13/2015 [facility] Docusate 100 mg, 1 cap, Route: PO, Drug form: CAP, BID, Dosing Weight 60.182, kg, PRN Constipation, Start date: 02/13/15 15:28:00, Duration: 30 day, Stop date: 03/15/15 15:27:00Notes: (Same as: Colace) (Do Not Crush) No Longer Active 02/13/2015 [facility] Alprazolam 0.5 mg, 1 tab, Route: PO, Drug form: TAB, TID, Dosing Weight 60.182, kg, PRN Anxiety, Start date: 02/13/15 15:28:00, Duration: 30 day, Stop date: 03/15/15 15:27:00Notes: With food or milk (Same as: Xanax) No Longer Active 02/13/2015 [facility] Insulin, Aspart, Human 2 unit, 0.02 mL, Route: SUB-Q, Drug form: SOLN, Bedtime, Dosing Weight 60.182, kg, PRN Blood Glucose Results, Start date: 02/13/15 15:26:00, Duration: 30 day, Stop date: 03/15/15 15:25:00Notes: Roll in palms of hands gently; Do not shake vigorously. (Same as: NovoLOG) "single patient use only" Stable for 28 days at room temperature. Expires in days from Date Inactive 02/13/2015 [facility] Dextrose 50% Syringe 12.5 gm, 25 mL, Route: IVP, Drug Form: INJ, Dosing Weight 60.182, kg, PRN, PRN Blood Glucose Results, Start date: 02/13/15 15:26:00, Duration: 30 day, Stop date: 03/15/15 15:25:00 No Longer Active 02/13/2015 [facility] Glucagon 1 mg, Route: IM, Drug form: PDR/INJ, PRN, Dosing Weight 60.182, kg, PRN Blood Glucose Results, Start date: 02/13/15 15:26:00, Duration: 30 day, Stop date: 03/15/15 15:25:00 No Longer Active 02/13/2015 [facility] Labetalol 10 mg, 2 mL, Route: IV, Drug form: INJ, Q4H, Dosing Weight 60.182, kg, PRN Other -See Comment, SBP >160 or pulse >120. Hold if pulse Notes: (Same as: Normodyne Trandate) Push over 2 minutes Give bolus over 2-3 minutes. No Longer Active 02/13/2015 [facility] metoprolol tartrate 50 mg, PO, BID No Longer Active 02/13/2015 [facility] Sodium Bicarbonate 650 mg, PO, Q6H, scheduled Active 02/13/2015 [facility] Labetalol 200 mg, PO, BID Active 02/13/2015 [facility] Isosorbide 30 mg, PO, BID Active 02/13/2015 [facility] Insulin regular sliding scale, SUB-Q, Before Meals & Bedtime Active 02/13/2015 [facility] Levemir 70 unit, SUB-Q, QAM No Longer Active 02/13/2015 [facility] Methocarbamol 500 mg, PO, Q6H, PRN as needed for muscle pain/relaxation Active 02/13/2015 [facility] Reglan 10 mg, PO, TID-Before Meals No Longer Active 02/13/2015 [facility] Protonix 40 mg, PO, Daily No Longer Active 02/13/2015 [facility] ferrous sulfate 325 mg, PO, Daily No Longer Active 02/13/2015 [facility] Morphine Sulfate 30 MG Extended Release Tablet [MS Contin] 30 mg=1 tab, PO, Q6H, PRN as needed for pain Active 02/13/2015 [facility] 24 HR Nifedipine 90 MG Extended Release Tablet 90 mg=1 tab, PO, Q12H Active 02/13/2015 [facility] Digoxin 250 microgram, PO, Daily No Longer Active 02/13/2015 [facility] Diphenhydramine 25 mg, PO, QID, scheduled No Longer Active 02/13/2015 [facility] Meclizine 25 mg, PO, TID, scheduled No Longer Active 02/13/2015 [facility] Promethazine 25 mg, PO, Q6H, PRN as needed for nausea/vomiting Active 02/13/2015 [facility] Docusate 100 mg, PO, BID, PRN as needed for constipation Active 02/13/2015 [facility] Ambien 10 mg, PO, Bedtime, scheduled No Longer Active 02/13/2015 [facility] Sucralfate 100 MG/ML Oral Suspension 1 gm=10 mL, PO, Q6H, scheduled Active 02/13/2015 [facility] Alprazolam 0.5 mg, PO, TID, PRN as needed for anxiety Active 02/13/2015 [facility] Lorazepam 0.5 mg, PO, TID, PRN as needed for anxiety Active 02/13/2015 [facility] Morphine 2 mg, 1 mL, Route: IV, Drug form: INJ, Q4H, Dosing Weight 60.182, kg, PRN Other -See Comment, Start date: 02/13/15 13:27:00, Duration: 30 day, Stop date: 03/15/15 13:26:00Notes: (Same as:MORPhine Sulfate) Inactive 02/13/2015 [facility] Reglan 5 mg, 1 mL, Route: IV, Drug form: INJ, Q6H, Dosing Weight 60.182, kg, PRN as needed for nausea/vomiting, Start date: 02/13/15 13:02:00, Duration: 30 day, Stop date: 03/15/15 13:01:00Notes: (Same as: Reglan) No Longer Active 02/13/2015 [facility] Tylenol 650 mg, 20.3 mL, Route: PO, Drug form: LIQ, QID, Dosing Weight 60.182, kg, PRN For Temp > 100.4 F, Start date: 02/13/15 13:02:00, Duration: 30 day, Stop date: 03/15/15 13:01:00Notes: Max acetaminophe k=[id number]/day (4 gm/day). (Same as: Tylenol) No Longer Active 02/13/2015 [facility] Saline Flush 0.9% 10 ml, Route: IVP, Drug Form: INJ, Dosing Weight 60.182, kg, PRN, PRN Line Flush, Start date: 02/13/15 12:59:00, Duration: 30 day, Stop date: 03/15/15 12:58:00Notes: (Same as: BD Posiflush) No Longer Active 02/13/2015 [facility] Sodium Chloride 0.154 MEQ/ML Injectable Solution 1,000 mL, Rate: 125 ml/hr, Infuse over: 8 hr, Route: IV, Dosing Weight 60.182 kg, Total Volume: 1,000, Start date: 02/13/15 12:59:00, Stop date: 02/16/15 16:43:44 No Longer Active 02/13/2015 [facility] Diphenhydramine 12.5 mg, 0.25 mL, Route: IVP, Drug form: INJ, ONCE, Dosing Weight 60.182, kg, Priority: STAT, Start date: 02/13/15 12:58:00, Stop date: 02/13/15 12:58:00Notes: (Same as: Benadryl) Inactive 02/13/2015 [facility] Morphine 4 mg, 1 mL, Route: IVP, Drug form: INJ, ONCE, Dosing Weight 60.182, kg, Priority: STAT, Start date: 02/13/15 12:58:00, Stop date: 02/13/15 12:58:00Notes: (Same as:MORPhine Sulfate) Inactive 02/13/2015 [facility] Sodium Chloride 0.154 MEQ/ML Injectable Solution 1,000 mL, 1,000 ml/hr, Infuse Over: 1 hr, Route: IV, 1,000, Drug form: INJ, ONCE, Priority: STAT, Dosing Weight 60.182 kg, Start date: 02/13/15 12:57:00, Duration: 1 doses or times, Stop date: 02/13/15 12:57:00 Inactive 02/13/2015 [facility] Ciprofloxacin 400 mg, 200 mL, Route: IVPB, Drug form: INJ, ONCE, Dosing Weight 60.182, kg, Priority: STAT, Start date: 02/13/15 10:46:00, Stop date: 02/13/15 10:46:00Notes: Do not refrigerate Inactive 02/13/2015 [facility] Rocephin 1 gm, Route: IVPB, ONCE, Dosing Weight 60.182, kg, Priority: STAT, Start date: 02/13/15 10:46:00, Stop date: 02/13/15 10:46:00Notes: (Same As: Rocephin). Use with 100ml NS mini-bag PLUS and infuse over 30 min MEDICATION WASTE Product Size: 1000 mg Product Wasted: ___ mg Inactive 02/13/2015 [facility] Labetalol 20 mg, 4 mL, Route: IVP, Drug form: INJ, ONCE, Dosing Weight 60.182, kg, Start date: 02/13/15 9:42:00, Stop date: 02/13/15 9:42:00Notes: (Same as: Normodyne, Trandate) Push over 2 minutes Give bolus over 2-3 minutes. Inactive 02/13/2015 [facility] Promethazine 12.5 mg, 50 mL, Route: IVPB, Drug form: SOLN, ONCE, Dosing Weight 60.182, kg, Priority: STAT, Start date: 02/13/15 9:42:00, Stop date: 02/13/15 9:42:00 Inactive 02/13/2015 [facility] Morphine 4 mg, 1 mL, Route: IVP, Drug form: INJ, ONCE, Dosing Weight 60.182, kg, Priority: STAT, Start date: 02/13/15 9:41:00, Stop date: 02/13/15 9:41:00Notes: (Same as:MORPhine Sulfate) Inactive 02/13/2015 [facility] Reglan 10 mg, 2 mL, Route: IVP, Drug form: INJ, ONCE, Dosing Weight 60.182, kg, Priority: STAT, Start date: 02/13/15 9:33:00, Stop date: 02/13/15 9:33:00Notes: (Same as: Reglan) Inactive 02/13/2015 [facility] Sodium Chloride 0.154 MEQ/ML Injectable Solution 1,000 mL, 1,000 ml/hr, Infuse Over: 1 hr, Route: IV, 1,000, Drug form: INJ, ONCE, Priority: STAT, Dosing Weight 60.182 kg, Start date: 02/13/15 9:32:00, Duration: 1 doses or times, Stop date: 02/13/15 9:32:00 Inactive 02/13/2015 [facility] Saline Flush 0.9% 10 mL, Route: IVP, Drug Form: INJ, Dosing Weight 60.182, kg, PRN, PRN Line Flush, Start date: 02/13/15 9:10:00, Duration: 30 day, Stop date: 03/15/15 9:09:00Notes: (Same as: BD Posiflush) No Longer Active 02/13/2015 [facility] ciprofloxacin 500 mg oral tablet 500 mg=1 tab, PO, Q12H, X 10 day, # 20 tab, 0 Refill(s) Active 01/26/2015 [facility] Hydralazine 20 mg, 1 mL, Route: IVP, Drug form: INJ, ONCE, Dosing Weight 60.17, kg, Priority: STAT, Start date: 01/25/15 21:12:00, Stop date: 01/25/15 21:12:00Notes: (Same as: Apresoline) Push over 5 minutes Inactive 01/26/2015 [facility] Clonidine Hydrochloride 0.2 MG Oral Tablet 0.2 mg, Route: PO, Drug form: TAB, ONCE, Dosing Weight 60.17, kg, Priority: STAT, Start date: 01/25/15 19:22:00, Stop date: 01/25/15 19:22:00 Inactive 01/26/2015 [facility] Benadryl 25 mg, 0.5 mL, Route: IVP, Drug form: INJ, ONCE, Dosing Weight 60.17, kg, Priority: STAT, Start date: 01/25/15 16:46:00, Stop date: 01/25/15 16:46:00Notes: (Same as: Benadryl) Inactive 01/25/2015 [facility] Phenergan 25 mg, 50 mL, Route: IVPB, Drug form: SOLN, ONCE, Dosing Weight 60.17, kg, Priority: STAT, Start date: 01/25/15 16:46:00, Stop date: 01/25/15 16:46:00 Inactive 01/25/2015 [facility] Morphine 4 mg, 1 mL, Route: IVP, Drug form: INJ, ONCE, Dosing Weight 60.17, kg, Priority: STAT, Start date: 01/25/15 16:45:00, Stop date: 01/25/15 16:45:00Notes: (Same as:MORPhine Sulfate) Inactive 01/25/2015 [facility] Sodium Chloride 0.154 MEQ/ML Injectable Solution 1,000 mL, 1000 ml/hr, Infuse Over: 1 hr, Route: IV, 1,000, Drug form: INJ, ONCE, Priority: STAT, Dosing Weight 60.17 kg, Start date: 01/25/15 16:45:00, Duration: 1 doses or times, Stop date: 01/25/15 16:45:00 Inactive 01/25/2015 [facility] Saline Flush 0.9% 10 mL, Route: IVP, Drug Form: INJ, Dosing Weight 60.17, kg, PRN, PRN Line Flush, Start date: 01/25/15 16:45:00, Duration: 30 day, Stop date: 02/24/15 15:44:00Notes: (Same as: BD Posiflush) No Longer Active 01/25/2015 [facility] Procardia XL 30 mg, 1 tab, Route: PO, Drug form: ERTAB, BID, Dosing Weight 60.8, kg, Start date: 12/16/14 21:00:00, Duration: 30 day, Stop date: 01/15/15 9:00:00Notes: (Same as: Procardia XL) "Do Not Crush" "Avoid grapefruit and grapefruit juice" Inactive 12/17/2014 [facility] ferrous sulfate 325 MG Oral Tablet [Feosol] 325 mg=1 tab, PO, TID, # 90 tab, 0 Refill(s) Active 12/16/2014 [facility] Cefuroxime 500 MG Oral Tablet 500 mg=1 tab, PO, BID, X 7 day, # 14 tab, 0 Refill(s) Active 12/16/2014 [facility] Rocephin 1 gm, Route: IVPB, Drug form: PDR/INJ, [id number], Dosing Weight 60.8, kg, Start date: 12/16/14 14:00:00, Duration: 30 day, Stop date: 01/14/15 14:00:00Notes: (Same As: Rocephin). Use with 100ml NS mini-bag PLUS and infuse over 30 min MEDICATION WASTE Product Size: 1000 mg Product Wasted: ___ mg Inactive 12/16/2014 [facility] 24 HR Nifedipine 30 MG Extended Release Tablet [Procardia] 30 mg=1 tab, PO, BID, # 30 tab, 0 Refill(s) Active 12/16/2014 [facility] 24 HR Nifedipine 30 MG Extended Release Tablet 30 mg=1 tab, PO, Daily, # 30 tab, 0 Refill(s) Inactive 12/16/2014 [facility] metoprolol tartrate 100 mg oral tablet 100 mg=1 tab, PO, BID, # 60 tab, 0 Refill(s) Active 12/16/2014 [facility] Sodium Chloride 0.9% (titrate) 250 mL 250 mL, Rate: rounder and backer for use with blood product administration, Dosing Weight 60.8, kg, Route: IV, Total Volume: 250, Start Date: 12/16/14 6:00:00, Duration: 30 day, Stop date: 01/15/15 5:59:00, Replace Every: 24 hr Inactive 12/16/2014 [facility] Clonidine Hydrochloride 0.3 MG Oral Tablet 0.3 mg, 1 tab, Route: PO, Drug form: TAB, BID, Dosing Weight 60.8, kg, Start date: 12/15/14 21:00:00, Duration: 30 day, Stop date: 01/14/15 9:00:00Notes: (Same As: Catapres) Inactive 12/16/2014 [facility] Procardia XL 30 mg, 1 tab, Route: PO, Drug form: ERTAB, Daily, Dosing Weight 60.8, kg, Start date: 12/15/14 17:51:00, Duration: 30 day, Stop date: 01/14/15 9:00:00Notes: (Same as: Procardia XL) "Do Not Crush" "Avoid grapefruit and grapefruit juice" No Longer Active 12/15/2014 [facility] 24 HR Nifedipine 30 MG Extended Release Tablet [Procardia] 30 mg, 1 tab, Route: PO, Drug form: ERTAB, Daily, Dosing Weight 60.8, kg, Start date: 12/15/14 15:00:00, Duration: 30 day, Stop date: 01/14/15 9:00:00Notes: (Same as: Procardia XL) "Do Not Crush" "Avoid grapefruit and grapefruit juice" Inactive 12/15/2014 [facility] Protonix 40 mg, 1 tab, Route: PO, Drug form: ECTAB, Daily, Start date: 12/15/14 9:00:00, Duration: 30 day, Stop date: 01/13/15 9:00:00Notes: Tablet should not be chewed or crushed. (Same as: Protonix) No Longer Active 12/15/2014 [facility] metoprolol tartrate 100 mg, 1 tab, Route: PO, Drug form: TAB, BID, Dosing Weight 60.8, kg, Start date: 12/14/14 21:00:00, Duration: 30 day, Stop date: 01/13/15 9:00:00Notes: (Same as: Lopressor) No Longer Active 12/15/2014 [facility] Sodium Chloride 0.154 MEQ/ML Injectable Solution 1,000 mL, Rate: 50 ml/hr, Infuse over: 20 hr, Route: IV, Dosing Weight 60.8 kg, Total Volume: 1,000, Start date: 12/14/14 18:29:00, Duration: 30 day, Stop date: 01/13/15 18:28:00 No Longer Active 12/14/2014 [facility] Hydralazine 20 mg, 1 mL, Route: IVP, Drug form: INJ, Q4H, Dosing Weight 60.8, kg, PRN Elevated BP, Start date: 12/14/14 8:33:00, Duration: 30 day, Stop date: 01/13/15 8:32:00, sbp>160/100 mmhgNotes: (Same as: Apresoline) Push over 5 minutes No Longer Active 12/14/2014 [facility] Melatonin 3 mg, 1 tab, Route: PO, Drug form: TAB, Bedtime, Dosing Weight 60.8, kg, PRN Sleep, Start date: 12/13/14 21:52:00, Duration: 30 day, Stop date: 01/12/15 21:51:00Notes: (Same as: Melatonin) No Longer Active 12/14/2014 [facility] Ativan 0.5 mg, 1 tab, Route: PO, Drug form: TAB, TID, Dosing Weight 60.8, kg, PRN as needed for anxiety, Start date: 12/13/14 21:52:00, Duration: 30 day, Stop date: 01/12/15 21:51:00Notes: (Same as: Ativan) No Longer Active 12/14/2014 [facility] Labetalol 20 mg, 4 mL, Route: IVP, Drug form: INJ, Q10Min, Dosing Weight 60.8, kg, PRN Other -See Comment, Start date: 12/13/14 17:08:00, Duration: 30 day, Stop date: 01/12/15 17:07:00Notes: (Same as: Normodyne, Trandate) Push over 2 minutes Give bolus over 2-3 minutes. No Longer Active 12/13/2014 [facility] Sodium Chloride 0.9% (titrate) 250 mL 250 mL, Rate: rounder and backer for use with blood product administration, Dosing Weight 60.8, kg, Route: IV, Total Volume: 250, Start Date: 12/13/14 15:31:00, Duration: 30 day, Stop date: 01/12/15 15:30:00, Replace Every: 24 hr No Longer Active 12/13/2014 [facility] Morphine 3 mg, 0.75 mL, Route: IVP, Drug form: INJ, Q4H, Dosing Weight 62.273, kg, PRN Pain Score 7-10, Start date: 12/13/14 13:14:00, Duration: 30 day, Stop date: 01/12/15 13:13:00Notes: (Same as:MORPhine Sulfate) No Longer Active 12/13/2014 [facility] Metoclopramide 5 MG Oral Tablet [Reglan] 5 mg, 0.5 tab, Route: PO, Drug form: TAB, QID-Before Meals, Dosing Weight 60.8, kg, Start date: 12/13/14 11:30:00, Duration: 30 day, Stop date: 01/12/15 7:30:00Notes: (Same as: Reglan) Take 30 min before meals No Longer Active 12/13/2014 [facility] MS Contin 30 mg, 1 tab, Route: PO, Drug form: ERTAB, Q6H, Dosing Weight 60.8, kg, PRN Pain Score 7-10, hold for sedation, Start date: 12/13/14 11:05:00, Duration: 30 day, Stop date: 01/12/15 11:04:00Notes: Do not crush (Same as:Oramorph SR, MS Contin) Inactive 12/13/2014 [facility] metoprolol tartrate 50 mg, 1 tab, Route: PO, Drug form: TAB, BID, Dosing Weight 60.8, kg, Start date: 12/13/14 9:00:00, Duration: 30 day, Stop date: 01/11/15 21:00:00Notes: (Same as: Lopressor) No Longer Active 12/13/2014 [facility] Protonix 40 mg, Route: IVP, Drug form: INJ, Daily, Dosing Weight 62.273, kg, Start date: 12/13/14 9:00:00, Duration: 30 day, Stop date: 01/11/15 9:00:00Notes: For IV push reconstitute with 10 ml 0.9% sodium chloride and push over 2 minutes. (Same as: Protonix) No Longer Active 12/13/2014 [facility] Phenergan 25 mg, 1 tab, Route: PO, Drug form: TAB, Q6H, Dosing Weight 60.8, kg, PRN as needed for nausea/vomiting, hold for sedation, Start date: 12/13/14 8:31:00, Duration: 30 day, Stop date: 01/12/15 8:30:00 Notes: (Same as: Phenergan) No Longer Active 12/13/2014 [facility] Alprazolam 0.5 MG Oral Tablet [Xanax] 0.5 mg, 1 tab, Route: PO, Drug form: TAB, TID, Dosing Weight 60.8, kg, PRN as needed for anxiety, please hold for sedation, Start date: 12/13/14 8:29:00, Duration: 30 day, Stop date: 01/12/15 8:28:00Notes: With food or milk (Same as: Xanax) Inactive 12/13/2014 [facility] Levaquin 750 mg, 150 mL, Route: IVPB, Drug form: SOLN, [id number], Dosing Weight 60.8, kg, For CrCl=20 -49ml/min, Start date: 12/13/14 1:00:00, Duration: 30 day, Stop date: 01/10/15 1:00:00Notes: (Same as:Levaquin) No Longer Active 12/13/2014 [facility] Benadryl 10 mg, 0.2 mL, Route: IVP, Drug form: INJ, QID, Dosing Weight 60.8, kg, PRN Itching, Start date: 12/13/14 0:07:00, Duration: 30 day, Stop date: 01/12/15 0:06:00Notes: (Same as: Benadryl) No Longer Active 12/13/2014 [facility] meclizine 25 mg oral tablet 25 mg=1 tab, PO, TID, 0 Refill(s) Active 12/13/2014 [facility] Promethazine Hydrochloride 25 MG Oral Tablet [Phenergan] 25 mg=1 tab, PO, Q6H, 0 Refill(s) Active 12/13/2014 [facility] Aluminum Hydroxide 80 MG/ML / Magnesium Hydroxide 80 MG/ML / Simethicone 8 MG/ML Oral Suspension [Maalox Max] 5 ml, PO, Q6H, PRN Indigestion, 0 Refill(s) Active 12/13/2014 [facility] Metoclopramide 5 MG Oral Tablet [Reglan] 5 mg=1 tab, PO, QID, 30 minutes before meals and at bedtime, 0 Refill(s)Special Instructions: 30 minutes before meals and at bedtime Active 12/13/2014 [facility] Magnesium Sulfate 2 gm, Route: IVPB, Drug form: INJ, ONCE, Dosing Weight 62.273, kg, Total dose=2 gm, Start date: 12/12/14 22:46:00, Duration: 1 doses or times, Stop date: 12/12/14 22:46:00 Inactive 12/13/2014 [facility] Glucagon 1 mg, Route: IM, Drug form: PDR/INJ, PRN, Dosing Weight 62.273, kg, PRN Blood Glucose Results, Start date: 12/12/14 22:38:00, Duration: 30 day, Stop date: 01/11/15 22:37:00 No Longer Active 12/13/2014 [facility] Dextrose 50% Syringe 12.5 gm, 25 mL, Route: IVP, Drug Form: INJ, Dosing Weight 62.273, kg, PRN, PRN Blood Glucose Results, Start date: 12/12/14 22:38:00, Duration: 30 day, Stop date: 01/11/15 22:37:00 No Longer Active 12/13/2014 [facility] Insulin, Aspart, Human 2 unit, 0.02 mL, Route: SUB-Q, Drug form: SOLN, Bedtime, Dosing Weight 62.273, kg, PRN Blood Glucose Results, Start date: 12/12/14 22:38:00, Duration: 30 day, Stop date: 01/11/15 22:37:00Notes: Roll in palms of hands gently; Do not shake vigorously. (Same as: NovoLOG) "single patient use only" Stable for 28 days at room temperature. Expires in days from Date No Longer Active 12/13/2014 [facility] Morphine 4 mg, Route: IVP, Drug form: INJ, ONCE, Dosing Weight 62.273, kg, Priority: STAT, Start date: 12/12/14 21:03:00, Stop date: 12/12/14 21:03:00 Inactive 12/13/2014 [facility] Acetaminophen 650 mg, 2 tab, Route: PO, Drug form: TAB, Q4H, Dosing Weight 62.273, kg, PRN Pain 1-3/Temp > 100.4 F, Start date: 12/12/14 20:50:00, Duration: 30 day, Stop date: 01/11/15 20:49:00Notes: Do not exceed 4 gm/day. (Same as: Tylenol) No Longer Active 12/13/2014 [facility] Docusate 100 mg, 1 cap, Route: PO, Drug form: CAP, BID, Dosing Weight 62.273, kg, PRN Constipation, Start date: 12/12/14 20:50:00, Duration: 30 day, Stop date: 01/11/15 20:49:00Notes: (Same as: Colace) (Do Not Crush) No Longer Active 12/13/2014 [facility] Morphine 2 mg, 1 mL, Route: IVP, Drug form: INJ, Q4H, Dosing Weight 62.273, kg, PRN Pain Score 7-10, Start date: 12/12/14 20:50:00, Duration: 30 day, Stop date: 01/11/15 20:49:00Notes: (Same as:MORPhine Sulfate) No Longer Active 12/13/2014 [facility] Sodium Chloride 0.154 MEQ/ML Injectable Solution 1,000 mL, Rate: 125 ml/hr, Infuse over: 8 hr, Route: IV, Dosing Weight 62.273 kg, Total Volume: 1,000, Start date: 12/12/14 20:50:00, Duration: 30 day, Stop date: 01/11/15 20:49:00 No Longer Active 12/13/2014 [facility] Saline Flush 0.9% 10 ml, Route: IVP, Drug Form: INJ, Dosing Weight 62.273, kg, PRN, PRN Line Flush, Start date: 12/12/14 20:50:00, Duration: 30 day, Stop date: 01/11/15 20:49:00Notes: (Same as: BD Posiflush) No Longer Active 12/13/2014 [facility] Benadryl 25 mg, 0.5 mL, Route: IVP, Drug form: INJ, ONCE, Dosing Weight 62.273, kg, Priority: STAT, Start date: 12/12/14 20:37:00, Stop date: 12/12/14 20:37:00Notes: (Same as: Benadryl) Inactive 12/13/2014 [facility] Morphine 4 mg, 1 mL, Route: IVP, Drug form: INJ, ONCE, Dosing Weight 62.273, kg, Priority: STAT, Start date: 12/12/14 20:37:00, Stop date: 12/12/14 20:37:00Notes: (Same as:MORPhine Sulfate) Inactive 12/13/2014 [facility] Sodium Chloride 0.9% (titrate) 250 mL 250 mL, Rate: Coil Maker for use with blood product administration., Dosing Weight 62.273, kg, Route: IV, Total Volume: 250, Priority: Routine, Start Date: 12/12/14 20:12:00, Duration: 96 hr, Stop date: 12/16/14 20:11:00, Replace Every: 24 hr No Longer Active 12/13/2014 [facility] Magnesium Sulfate 2 gm, 50 mL, Route: IVPB, Drug form: INJ, ONCE, Dosing Weight 62.273, kg, Start date: 12/12/14 20:10:00, Duration: 2 hr, Stop date: 12/12/14 20:10:00 Inactive 12/13/2014 [facility] Insulin regular 10 unit, 0.1 mL, Route: SUB-Q, Drug form: SOLN, ONCE, Dosing Weight 62.273, kg, Priority: STAT, Start date: 12/12/14 20:10:00, Stop date: 12/12/14 20:10:00Notes: (Same as: Humulin R) Roll in palms of hands gently; Do not shake vigorously. "single patient use only" (Restricted to patients requiring a dose > 60 units) Stable for 28 days at room temperature Expires in days from Date Inactive 12/13/2014 [facility] Sodium Chloride 0.154 MEQ/ML Injectable Solution 1,000 mL, 1000 ml/hr, Infuse Over: 1 hr, Route: IV, 1,000, Drug form: INJ, ONCE, Priority: STAT, Dosing Weight 62.273 kg, Start date: 12/12/14 20:09:00, Duration: 1 doses or times, Stop date: 12/12/14 20:09:00 No Longer Active 12/13/2014 [facility] Rocephin 1 gm, Route: IVPB, Drug form: PDR/INJ, ONCE, Dosing Weight 62.273, kg, Priority: STAT, Start date: 12/12/14 20:01:00, Stop date: 12/12/14 20:01:00Notes: (Same As: Rocephin). Use with 100ml NS mini-bag PLUS and infuse over 30 min MEDICATION WASTE Product Size: 1000 mg Product Wasted: ___ mg Inactive 12/13/2014 [facility] GI cocktail 30 mL, Route: PO, Drug Form: SUSP, Dosing Weight 62.273, kg, ONCE, STAT, Start date: 12/12/14 18:26:00, Stop date: 12/12/14 18:26:00Notes: G.I. Cocktail=antacid with simethicone 22.5 mL - lidocaine v iscous 7.5 mL Inactive 12/12/2014 [facility] Valium 5 mg, 1 mL, Route: IVP, Drug form: INJ, ONCE, Dosing Weight 62.273, kg, Priority: STAT, Start date: 12/12/14 18:26:00, Stop date: 12/12/14 18:26:00Notes: (Same as: Valium) Inactive 12/12/2014 [facility] Metoclopramide 10 mg, 2 mL, Route: IVP, Drug form: INJ, ONCE, Dosing Weight 62.273, kg, Priority: STAT, Start date: 12/12/14 17:36:00, Stop date: 12/12/14 17:36:00Notes: (Same as: Reglan) Inactive 12/12/2014 [facility] Saline Flush 0.9% 10 mL, Route: IVP, Drug Form: INJ, Dosing Weight 62.273, kg, PRN, PRN Line Flush, Start date: 12/12/14 17:36:00, Duration: 30 day, Stop date: 01/11/15 17:35:00Notes: (Same as: BD Posiflush) Inactive 12/12/2014 [facility] Sodium Chloride 0.154 MEQ/ML Injectable Solution 1,000 mL, 1000 ml/hr, Infuse Over: 1 hr, Route: IV, 1,000, Drug form: INJ, ONCE, Priority: STAT, Dosing Weight 62.273 kg, Start date: 12/12/14 17:36:00, Duration: 1 doses or times, Stop date: 12/12/14 17:36:00 Inactive 12/12/2014 [facility] Metoclopramide 10 MG Oral Tablet [Reglan] 10 mg=1 tab, PO, QID, 30 minutes before meals and at bedtime, X 3 day, # 12 tab, 0 Refill(s)Special Instructions: 30 minutes before meals and at bedtime Active 08/15/2014 [facility] Morphine 4 mg, Route: IVP, Drug form: INJ, ONCE, Dosing Weight 63.182, kg, Priority: STAT, Start date: 08/14/14 21:58:00, Stop date: 08/14/14 21:58:00 Inactive 08/15/2014 [facility] Hydralazine 10 mg, 0.5 mL, Route: IVP, Drug form: INJ, ONCE, Dosing Weight 63.182, kg, Priority: STAT, Start date: 08/14/14 20:23:00, Stop date: 08/14/14 20:23:00Notes: (Same as: Apresoline) Push over 5 minutes Inactive 08/15/2014 [facility]-Phos 1 pkt, Route: PO, Drug Form: PDR/REC, Dosing Weight 63.182, kg, ONCE, Start date: 08/14/14 20:21:00, Stop date: 08/14/14 20:21:00Notes: (Same as: Neutra-Phos) Each 1.25 gm pkt has 250mg phosphorous. Mix w/2.5oz water and stir. Inactive 08/15/2014 [facility] Neutra-Phos 1 pkt, Route: PO, Drug Form: PDR/REC, Dosing Weight 63.182, kg, ONCE, Start date: 08/14/14 20:08:00, Stop date: 08/14/14 20:08:00Notes: (Same as: Neutra-Phos) Each 1.25 gm pkt has 250mg phosphorous. Mix w/2.5oz water and stir. Inactive 08/15/2014 [facility] Magnesium Sulfate 2 gm, 50 mL, Route: IV, Drug form: INJ, ONCE, Dosing Weight 63.182, kg, Priority: STAT, Start date: 08/14/14 20:07:00, Stop date: 08/14/14 20:07:00 Inactive 08/15/2014 [facility] Morphine 4 mg, 1 mL, Route: IVP, Drug form: INJ, ONCE, Dosing Weight 63.182, kg, Priority: STAT, Start date: 08/14/14 19:57:00, Stop date: 08/14/14 19:57:00Notes: (Same as:MORPhine Sulfate) Inactive 08/15/2014 [facility] Metoprolol 5 mg, 5 mL, Route: IVP, Drug form: INJ, ONCE, Dosing Weight 60.364, kg, Priority: STAT, Start date: 08/14/14 17:55:00, Stop date: 08/14/14 17:55:00Notes: (Same as: Lopressor) Push over 2 minutes Inactive 08/14/2014 [facility] Benadryl 50 mg, 2 tab, Route: PO, Drug form: TAB, ONCE, Dosing Weight 60.364, kg, Priority: STAT, Start date: 08/14/14 17:54:00, Stop date: 08/14/14 17:54:00 Inactive 08/14/2014 [facility] Saline Flush 0.9% 10 mL, Route: IVP, Drug Form: INJ, Dosing Weight 60.364, kg, PRN, PRN Line Flush, Start date: 08/14/14 17:54:00, Duration: 30 day, Stop date: 09/13/14 17:53:00Notes: preservative free. No Longer Active 08/14/2014 [facility] Sodium Chloride 0.154 MEQ/ML Injectable Solution 1,000 mL, 1000 ml/hr, Infuse Over: 1 hr, Route: IV, 1,000, Drug form: INJ, ONCE, Priority: STAT, Dosing Weight 60.364 kg, Start date: 08/14/14 17:54:00, Duration: 1 doses or times, Stop date: 08/14/14 17:54:00 Inactive 08/14/2014 [facility] Metoclopramide 10 mg, 2 mL, Route: IVP, Drug form: INJ, ONCE, Dosing Weight 60.364, kg, Priority: STAT, Start date: 08/14/14 17:54:00, Stop date: 08/14/14 17:54:00Notes: (Same as: Reglan) Inactive 08/14/2014 [facility] pantoprazole 40 mg, Route: IVP, Drug form: INJ, ONCE, Dosing Weight 60.364, kg, For IV push reconstitute with 10 ml 0.9% sodium chloride and push over at least 3 minutes, Priority: STAT, Start date: 08/14/14 17:54:00, Stop date: 08/14/14 17:54:00Notes: For IV push reconstitute with 10 ml 0.9% sodium chloride and push over 2 minutes. (Same as: Protonix) Inactive 08/14/2014 [facility] Promethazine Hydrochloride 25 MG Oral Tablet [Phenergan] 25 mg=1 tab, PO, Q6H, PRN Nausea, X 4 day, # 15 tab, 0 Refill(s) Active 08/13/2014 [facility] Acetaminophen 300 MG / Codeine Phosphate 30 MG Oral Tablet [Tylenol with Codeine #3] 2 tab, PO, Q6H, PRN for pain, X 7 day, # 56 tab, 0 Refill(s) Active 08/13/2014 [facility] metoprolol tartrate 50 mg oral tablet 50 mg=1 tab, PO, BID, # 60 tab, 0 Refill(s) Active 08/13/2014 [facility] Metoclopramide 10 MG Oral Tablet [Reglan] 10 mg, PO, QID- Before Meals, X 7 day, # 60 tab, 0 Refill(s) Active 08/13/2014 [facility] Potassium Chloride 1.33 MEQ/ML Oral Solution 40 mEq, 30 mL, Route: PO, Drug form: LIQ, Q1H, Dosing Weight 60.364, kg, Start date: 08/12/14 13:00:00, Duration: 2 doses or times, Stop date: 08/12/14 14:00:00Notes: (Same as: Potassium Chloride) Inactive 08/12/2014 [facility] Magnesium Sulfate 3 gm, 50 mL, Route: IVPB, Drug form: INJ, ONCE, Dosing Weight 60.364, kg, Start date: 08/12/14 12:04:00, Stop date: 08/12/14 12:04:00Notes: (Same as: MgSO4) Final Volume: 50ml Inactive 08/12/2014 [facility] Levemir FlexPen 70 unit, 0.7 mL, Route: SUB-Q, Drug form: INJ, Daily, Start date: 08/12/14 10:00:00, Duration: 30 day, Stop date: 09/11/14 9:00:00Notes: Same as Levemir Do not hold insulin without contacting prescriber "single patient use only" Inactive 08/12/2014 [facility] Lantus Route: SUB-Q, Daily, Dosing Weight 60.364, kg, Start date: 08/12/14 9:00:00, Duration: 30 day, Stop date: 09/10/14 9:00:00 Inactive 08/12/2014 [facility] Labetalol 40 mg, Route: PO, BID, Dosing Weight 60.364, kg, Start date: 08/12/14 9:00:00, Duration: 30 day, Stop date: 09/10/14 17:00:00 No Longer Active 08/12/2014 [facility] Losartan 50 mg, 1 tab, Route: PO, Drug form: TAB, Daily, Dosing Weight 60.364, kg, Start date: 08/12/14 9:00:00, Duration: 30 day, Stop date: 09/10/14 9:00:00Notes: (Same as: Cozaar) No Longer Active 08/12/2014 [facility] digoxin 125 mcg (0.125 mg) oral tablet 0.125 mg, 1 tab, Route: PO, Drug form: TAB, Daily, Dosing Weight 60.364, kg, Start date: 08/12/14 9:00:00, Duration: 30 day, Stop date: 09/10/14 9:00:00Notes: Take on an Empty Stomach (Same as: Lanoxin) No Longer Active 08/12/2014 [facility] metoprolol tartrate 50 mg, 1 tab, Route: PO, Drug form: TAB, Q12H, Dosing Weight 60.364, kg, Start date: 08/12/14 9:00:00, Duration: 30 day, Stop date: 09/10/14 21:00:00Notes: (Same as: Lopressor) No Longer Active 08/12/2014 [facility] Levemir FlexPen 35 unit, 0.35 mL, Route: SUB-Q, Drug form: INJ, Q12H, Priority: STAT, Start date: 08/12/14 9:00:00, Duration: 30 day, Stop date: 09/10/14 21:00:00Notes: Same as Levemir Do not hold insulin without conta cting prescriber "single patient use only" No Longer Active 08/12/2014 [facility] Hydralazine Hydrochloride 50 MG Oral Tablet 50 mg, 1 tab, Route: PO, Drug form: TAB, Q6H, Dosing Weight 60.364, kg, Start date: 08/12/14 0:00:00, Duration: 30 day, Stop date: 09/10/14 18:00:00Notes: (Same as: Apresoline) May interfere w/enteral feedings Take With Food Inactive 08/12/2014 [facility] Insulin regular 100 unit + Sodium Chloride 0.9% (titrate) 99 mL 99 mL, Rate: Titrate per ICU dosing guidelines, Dosing Weight 60.364, kg, Route: IV, Total Volume: 100 mL, Start Date: 08/11/14 22:04:00, Duration: 30 day, Stop date: 09/10/14 22:03:00, Replace Every: 24 hrNotes: (Same as: Humulin R and NovoLIN R) (Do not shake) No Longer Active 08/12/2014 [facility] Labetalol 100 mg, 1 tab, Route: PO, Drug form: TAB, BID, Dosing Weight 60.364, kg, Start date: 08/11/14 21:00:00, Duration: 30 day, Stop date: 09/10/14 9:00:00Notes: With food. (Same as:Trandate, Normodyne) No Longer Active 08/12/2014 [facility] Dextrose 50% Syringe 12.5 gm, 25 mL, Route: IVP, Drug Form: INJ, Dosing Weight 60.364, kg, PRN, PRN Blood Glucose Results, Start date: 08/11/14 19:26:00, Duration: 30 day, Stop date: 09/10/14 19:25:00 No Longer Active 08/12/2014 [facility] Glucagon 1 mg, Route: IM, Drug form: PDR/INJ, PRN, Dosing Weight 60.364, kg, PRN Blood Glucose Results, Start date: 08/11/14 19:26:00, Duration: 30 day, Stop date: 09/10/14 19:25:00 No Longer Active 08/12/2014 [facility] Insulin, Aspart, Human 4 unit, 0.04 mL, Route: SUB-Q, Drug form: SOLN, TID-Before Meals, Dosing Weight 60.364, kg, PRN Blood Glucose Results, Start date: 08/11/14 19:26:00, Duration: 30 day, Stop date: 09/10/14 19:25:00Notes: Roll in palms of hands gently; Do not shake vigorously. (Same as: NovoLOG) "single patient use only" Stable for 28 days at room temperature. Expires in days from Date No Longer Active 08/12/2014 [facility] Metoprolol 5 mg, 5 mL, Route: IVP, Drug form: INJ, Q2MIN, Dosing Weight 60.364, kg, PRN Other -See Comment, Start date: 08/11/14 19:05:00, Duration: 30 day, Stop date: 09/10/14 19:04:00Notes: (Same as: Lopressor) Push over 2 minutes No Longer Active 08/12/2014 [facility] Labetalol 20 mg, 4 mL, Route: IVP, Drug form: INJ, ONCE, Dosing Weight 60.364, kg, Start date: 08/11/14 19:04:00, Stop date: 08/11/14 19:04:00Notes: (Same as: Normodyne, Trandate) Push over 2 minutes Give bolus over 2-3 minutes. Inactive 08/12/2014 [facility] Sucralfate 100 MG/ML Oral Suspension [Carafate] 1 gm, 10 mL, Route: PO, Drug form: SUSP, BID-Before Meals, Dosing Weight 60.364, kg, Start date: 08/11/14 16:30:00, Duration: 30 day, Stop date: 09/10/14 7:30:00Notes: Enteral feeds may interfere with the absorption of this medication. Shake well. Take 1 hr before or 2 hrs after antacids, dairy pdt, minerals & meals. (Same As: Carafate) No Longer Active 08/11/2014 [facility] Cardene 40 mg in NS 200 ml IV 40 mg 40 mg, 200 mL, Rate: Titrate, Dosing Weight 60.364, kg, Route: IV, Total Volume: 200 mL, Start Date: 08/11/14 13:13:00, Duration: 30 day, Stop date: 09/10/14 13:12:00, Replace Every: 12 hrNotes: Same as: Cardene Concentration: (0.2 mg /1 ml ) No Longer Active 08/11/2014 [facility] Morphine 4 mg, 1 mL, Route: IVP, Drug form: INJ, Q3H, Dosing Weight 60.455, kg, PRN Pain Score 7-10, Start date: 08/11/14 8:13:00, Duration: 30 day, Stop date: 09/10/14 8:12:00Notes: (Same as:MORPhine Sulfate) No Longer Active 08/11/2014 [facility] Phenergan 12.5 mg, 50 mL, Route: IVPB, Drug form: SOLN, Q4H, Dosing Weight 60.364, kg, PRN Nausea & Vomiting, Start date: 08/11/14 2:10:00, Duration: 30 day, Stop date: 09/10/14 2:09:00 No Longer Active 08/11/2014 [facility] Flagyl 500 mg, 100 mL, Route: IVPB, Drug form: INJ, [id number], Dosing Weight 60.364, kg, Start date: 08/10/14 14:00:00, Duration: 30 day, Stop date: 09/09/14 6:00:00Notes: (Same as: Flagyl) Avoid alcohol. No Longer Active 08/10/2014 [facility] Alprazolam 0.5 MG Oral Tablet [Xanax] 0.5 mg, 1 tab, Route: PO, Drug form: TAB, TID, Dosing Weight 60.364, kg, PRN as needed for anxiety, Start date: 08/10/14 13:53:00, Duration: 30 day, Stop date: 09/09/14 13:52:00Notes: With food or milk (Same as: Xanax) No Longer Active 08/10/2014 [facility] Flagyl 500 mg, Route: IVPB, [id number], Dosing Weight 60.364, kg, Start date: 08/10/14 13:00:00, Duration: 30 day, Stop date: 09/09/14 5:00:00 Inactive 08/10/2014 [facility] Ciprofloxacin 400 mg, Route: IVPB, [id number], Dosing Weight 60.364, kg, Start date: 08/10/14 13:00:00, Duration: 30 day, Stop date: 09/09/14 1:00:00 Inactive 08/10/2014 [facility] Enoxaparin 40 mg, 0.4 mL, Route: SUB-Q, Drug form: INJ, [id number], Dosing Weight 60.455, kg, Start date: 08/10/14 13:00:00, Duration: 30 day, Stop date: 09/08/14 13:00:00Notes: (Same as: Lovenox) No Longer Active 08/10/2014 [facility] Benadryl 25 mg, 1 tab, Route: PO, Drug form: TAB, TID, Dosing Weight 60.364, kg, PRN Itching, Start date: 08/10/14 12:52:00, Duration: 30 day, Stop date: 09/09/14 12:51:00 No Longer Active 08/10/2014 [facility] Insulin, Aspart, Human 4 unit, 0.04 mL, Route: SUB-Q, Drug form: SOLN, Sliding Scale, Dosing Weight 60.364, kg, PRN Blood Glucose Results, Start date: 08/10/14 12:51:00, Duration: 30 day, Stop date: 09/09/14 12:50:00Notes: Roll in palms of hands gently; Do not shake vigorously. (Same as: NovoLOG) "single patient use only" Stable for 28 days at room temperature. Expires in days from Date No Longer Active 08/10/2014 [facility] Dextrose 50% Syringe 12.5 gm, 25 mL, Route: IVP, Drug Form: INJ, Dosing Weight 60.364, kg, PRN, PRN Blood Glucose Results, Start date: 08/10/14 12:51:00, Duration: 30 day, Stop date: 09/09/14 12:50:00 No Longer Active 08/10/2014 [facility] Glucagon 1 mg, Route: IM, Drug form: PDR/INJ, PRN, Dosing Weight 60.364, kg, PRN Blood Glucose Results, Start date: 08/10/14 12:51:00, Duration: 30 day, Stop date: 09/09/14 12:50:00 No Longer Active 08/10/2014 [facility] Ciprofloxacin 400 mg, 200 mL, Route: IVPB, Drug form: INJ, [id number], Dosing Weight 60.364, kg, Start date: 08/10/14 12:00:00, Duration: 30 day, Stop date: 09/09/14 0:00:00Notes: Do not refrigerate No Longer Active 08/10/2014 [facility] Lantus 70 units, SUB-Q, Daily, 0 Refill(s) Active 08/10/2014 [facility] Insulin regular SUB-Q, PER HOME SLIDING SCALE, 0 Refill(s)Special Instructions: PER HOME SLIDING SCALE Active 08/10/2014 [facility] ferrous sulfate 325 mg oral enteric coated tablet 325 mg=1 tab, PO, Daily, # 30 tab, 0 Refill(s) Active 08/10/2014 [facility] Docusate Sodium 100 MG Oral Capsule [Colace] 100 mg=1 cap, PO, Daily, PRN Constipation, # 20 cap, 0 Refill(s) Active 08/10/2014 [facility] losartan 50 mg oral tablet 50 mg=1 tab, PO, Daily, # 30 tab, 0 Refill(s) Active 08/10/2014 [facility] Lidocaine 50 mg/mL, PO, Q6H, 0 Refill(s) Active 08/10/2014 [facility] metoprolol tartrate 50 mg oral tablet 50 mg=1 tab, PO, BID, 0 Refill(s) No Longer Active 08/10/2014 [facility] Sucralfate 100 MG/ML Oral Suspension [Carafate] 1 gm=10 mL, PO, Q6H, 0 Refill(s) Active 08/10/2014 [facility] Lantus 70 units, SUB-Q, Daily, 0 Refill(s) Inactive 08/10/2014 [facility] Labetalol 20 mg, 4 mL, Route: IV, Drug form: INJ, Q2H, Dosing Weight 60.455, kg, PRN Tachycardia, Start date: 08/10/14 9:02:00, Duration: 30 day, Stop date: 09/09/14 9:01:00, for sbp> 190Notes: (Same as: Normodyne, Trandate) Push over 2 minutes Give bolus over 2-3 minutes. No Longer Active 08/10/2014 [facility] Hydralazine 20 mg, 1 mL, Route: IV, Drug form: INJ, Q4H, Dosing Weight 60.455, kg, PRN Hypertension, Start date: 08/10/14 9:02:00, Duration: 30 day, Stop date: 09/09/14 9:01:00, for sbp> 150Notes: (Same as: Apre soline) Push over 5 minutes No Longer Active 08/10/2014 [facility] Morphine 4 mg, 1 mL, Route: IVP, Drug form: INJ, Q4H, Dosing Weight 60.455, kg, PRN Pain Score 7-10, Start date: 08/10/14 9:00:00, Duration: 30 day, Stop date: 09/09/14 8:59:00Notes: (Same as:MORPhine Sulfate) No Longer Active 08/10/2014 [facility] pantoprazole 40 mg, Route: IV, Drug form: INJ, Before Dinner, Dosing Weight 60.455, kg, Start date: 08/10/14 9:00:00, Duration: 30 day, Stop date: 09/08/14 16:30:00Notes: For IV push reconstitute with 10 ml 0.9% sodium chloride and push over 2 minutes. (Same as: Protonix) No Longer Active 08/10/2014 [facility] Reglan 10 mg, 2 mL, Route: IVP, Drug form: INJ, Q6H, Dosing Weight 60.455, kg, Priority: STAT, Start date: 08/10/14 9:00:00, Duration: 30 day, Stop date: 09/09/14 6:00:00Notes: (Same as: Reglan) No Longer Active 08/10/2014 [facility] Sodium Chloride 0.154 MEQ/ML Injectable Solution 1,000 mL, Rate: 150 ml/hr, Infuse over: 6.7 hr, Route: IV, Dosing Weight 60.455 kg, Total Volume: 1,000, Start date: 08/10/14 9:00:00, Duration: 30 day, Stop date: 09/09/14 8:59:00 No Longer Active 08/10/2014 [facility] Saline Flush 0.9% 10 ml, Route: IVP, Drug Form: INJ, Dosing Weight 60.455, kg, PRN, PRN Line Flush, Start date: 08/10/14 9:00:00, Duration: 30 day, Stop date: 09/09/14 8:59:00Notes: (Same as: BD Posiflush) No Longer Active 08/10/2014 [facility] Morphine 4 mg, Route: IVP, Drug form: INJ, ONCE, Dosing Weight 60.455, kg, Priority: STAT, Start date: 08/10/14 8:47:00, Stop date: 08/10/14 8:47:00 Inactive 08/10/2014 [facility] Labetalol 20 mg, 4 mL, Route: IVP, Drug form: INJ, ONCE, Dosing Weight 60.455, kg, Priority: STAT, Start date: 08/10/14 8:13:00, Stop date: 08/10/14 8:13:00Notes: (Same as: Normodyne, Trandate) Push over 2 minutes Give bolus over 2-3 minutes. Inactive 08/10/2014 [facility] Hydralazine 15 mg, Route: IVP, ONCE, Dosing Weight 60.455, kg, Priority: STAT, Start date: 08/10/14 8:03:00, Stop date: 08/10/14 8:03:00 Inactive 08/10/2014 [facility] Valium 5 mg, 1 mL, Route: IVP, Drug form: INJ, ONCE, Dosing Weight 60.455, kg, Priority: STAT, Start date: 08/10/14 7:28:00, Stop date: 08/10/14 7:28:00Notes: (Same as: Valium) Inactive 08/10/2014 [facility] Benadryl 25 mg, 0.5 mL, Route: IV, Drug form: INJ, ONCE, Dosing Weight 60.455, kg, Start date: 08/10/14 7:25:00, Stop date: 08/10/14 7:25:00Notes: (Same as: Benadryl) Inactive 08/10/2014 [facility] Benadryl 25 mg, Route: IVPB, ONCE, Dosing Weight 60.455, kg, Start date: 08/10/14 7:21:00, Stop date: 08/10/14 7:21:00 Inactive 08/10/2014 [facility] Sodium Chloride 0.154 MEQ/ML Injectable Solution 1,000 mL, 1,000 ml/hr, Infuse Over: 1 hr, Route: IV, 1,000, Drug form: INJ, ONCE, Priority: STAT, Dosing Weight 60.455 kg, Start date: 08/10/14 7:17:00, Duration: 1 doses or times, Stop date: 08/10/14 7:17:00 Inactive 08/10/2014 [facility] Phenergan 25 mg, Route: IM, ONCE, Dosing Weight 60.455, kg, Priority: STAT, Start date: 08/10/14 5:40:00, Stop date: 08/10/14 5:40:00 Inactive 08/10/2014 [facility] Insulin regular 10 unit, 0.1 mL, Route: IVP, Drug form: SOLN, ONCE, Dosing Weight 60.455, kg, Priority: STAT, Start date: 08/10/14 5:28:00, Stop date: 08/10/14 5:28:00Notes: (Same as: Humulin R) Roll in palms of hands gently; Do not shake vigorously. "single patient use only" (Restricted to patients requiring a dose > 60 units) Stable for 28 days at room temperature Expires in days from Date Inactive 08/10/2014 [facility] Morphine 4 mg, 1 mL, Route: IVP, Drug form: INJ, ONCE, Dosing Weight 60.455, kg, Priority: STAT, Start date: 08/10/14 4:41:00, Stop date: 08/10/14 4:41:00Notes: (Same as:MORPhine Sulfate) Inactive 08/10/2014 [facility] Sodium Chloride 0.154 MEQ/ML Injectable Solution 1,000 mL, 1,000 ml/hr, Infuse Over: 1 hr, Route: IV, 1,000, Drug form: INJ, ONCE, Priority: STAT, Dosing Weight 60.455 kg, Start date: 08/10/14 4:41:00, Duration: 1 doses or times, Stop date: 08/10/14 4:41:00 Inactive 08/10/2014 [facility] Clonidine Hydrochloride 0.1 MG Oral Tablet 0.1 mg, 1 tab, Route: PO, Drug form: TAB, TID, Dosing Weight 62.813, kg, PRN Elevated BP, Priority: STAT, Start date: 07/09/14 20:02:00, Duration: 30 day, Stop date: 08/08/14 20:01:00, sbp >/=180Notes: (Same As: Catapres) Inactive 07/10/2014 [facility] Hydralazine 10 mg, 0.5 mL, Route: IVP, Drug form: INJ, Q6H, Dosing Weight 62.813, kg, PRN Other -See Comment, Start date: 07/09/14 20:00:00, Duration: 30 day, Stop date: 08/08/14 19:59:00, SBP>/=160 OR DBP> /=90Notes: (Same as: Apresoline) Push over 5 minutes Inactive 07/10/2014 [facility] Lopressor 5 mg, 5 mL, Route: IVP, Drug form: INJ, Q6H, Dosing Weight 62.813, kg, PRN Other -See Comment, Priority: STAT, Start date: 07/09/14 19:59:00, Duration: 30 day, Stop date: 08/08/14 19:58:00, HR >/=100 OR SBP >/=175Notes: (Same as: Lopressor) Push over 2 minutes Inactive 07/10/2014 [facility] lidocaine 1% 5 mL, Route: INTRADERM, Drug Form: INJ, Dosing Weight 62.813, kg, ONCALL, Start date: 07/09/14 14:00:00, Duration: 30 day, Stop date: 08/08/14 13:59:00Notes: Preservative free. (Same as: Xylocaine MPF) Inactive 07/09/2014 [facility] Morphine 2 mg, 1 mL, Route: IVP, Drug form: INJ, ONCE, Dosing Weight 62.813, kg, Start date: 07/09/14 12:07:00, Stop date: 07/09/14 12:07:00Notes: (Same as:MORPhine Sulfate) Inactive 07/09/2014 [facility] Benadryl 12.5 mg, 0.25 mL, Route: IV, Drug form: INJ, ONCE, Dosing Weight 62.813, kg, Start date: 07/09/14 12:07:00, Stop date: 07/09/14 12:07:00Notes: (Same as: Benadryl) Inactive 07/09/2014 [facility] Digoxin 250 microgram, 1 tab, Route: PO, Drug form: TAB, Daily, Dosing Weight 62.813, kg, Start date: 07/09/14 9:00:00, Duration: 30 day, Stop date: 08/07/14 9:00:00Notes: Take on an Empty Stomach (Same as: Lanoxin) Inactive 07/09/2014 [facility] Insulin Glargine 10 unit, 0.1 mL, Route: SUB-Q, Drug form: INJ, Bedtime, Dosing Weight 63.409, kg, Start date: 07/08/14 21:00:00, Duration: 30 day, Stop date: 08/06/14 21:00:00Notes: Same as Lantus Solostar PEN Do not hold insulin without contacting prescriber "single patient use only" Stable for 28 days at room temperature. Expires in days from Date Inactive 07/09/2014 [facility] Levemir FlexPen 10 unit, 0.1 mL, Route: SUB-Q, Drug form: INJ, Bedtime, Start date: 07/08/14 21:00:00, Duration: 30 day, Stop date: 08/06/14 21:00:00Notes: Same as Levemir Do not hold insulin without contacting prescriber "single patient use only" No Longer Active 07/09/2014 [facility] Alprazolam 1 MG Oral Tablet [Xanax] 1 mg, 1 tab, Route: PO, Drug form: TAB, QID, Dosing Weight 62.813, kg, PRN Anxiety, Start date: 07/08/14 20:58:00, Duration: 30 day, Stop date: 08/07/14 20:57:00Notes: With food or milk (Same as: Xanax) No Longer Active 07/09/2014 [facility] MS Contin 30 mg, PO, Q6H, 0 Refill(s) Active 07/09/2014 [facility] Xanax 1 mg, PO, QID, 0 Refill(s) Active 07/09/2014 [facility] GI cocktail PO, Q6H, 0 Refill(s) Active 07/09/2014 [facility] Digoxin 250 microgram, PO, Daily, 0 Refill(s) Active 07/09/2014 [facility] Metoprolol Tartrate 25 mg oral tablet 25 mg=1 tab, PO, BID, # 60 tab, 0 Refill(s) Active 07/09/2014 [facility] Benadryl 25 mg, PO, QID, 0 Refill(s) Active 07/09/2014 [facility] Protonix 40 mg, 1 tab, Route: PO, Drug form: ECTAB, BID, Start date: 07/08/14 17:00:00, Duration: 30 day, Stop date: 08/07/14 9:00:00Notes: Tablet should not be chewed or crushed. (Same as: Protonix) No Longer Active 07/08/2014 [facility] Benadryl 10 mg, 0.2 mL, Route: IVP, Drug form: INJ, ONCE, Dosing Weight 62.813, kg, PRN Allergic reaction, Start date: 07/08/14 17:00:00Notes: (Same as: Benadryl) Inactive 07/08/2014 [facility] MS Contin 30 mg, 1 tab, Route: PO, Drug form: ERTAB, Q8H, Dosing Weight 62.813, kg, Start date: 07/08/14 16:00:00, Duration: 30 day, Stop date: 08/07/14 8:00:00Notes: Do not crush (Same as:Oramorph SR, MS Contin) No Longer Active 07/08/2014 [facility] Magnesium Sulfate 2 gm, 50 mL, Route: IVPB, Drug form: INJ, PRN, Dosing Weight 62.813, kg, PRN Abnormal Lab Result, For NON-ICU Patients Only., Start date: 07/08/14 14:08:00, Duration: 30 day, Stop date: 08/07/14 14:07:00 No Longer Active 07/08/2014 [facility] Magnesium Oxide 800 mg, 2 tab, Route: PO, Drug form: TAB, PRN, Dosing Weight 62.813, kg, PRN Abnormal Lab Result, For NON-ICU Patients Only., Start date: 07/08/14 14:08:00, Duration: 30 day, Stop date: 08/07/14 14:0 7:00Notes: (Same as: Mag-Ox 400) Magnesium oxide [id number] elemental magnesium Dose=____mg magnesium oxide (___mg elemental magnesium) No Longer Active 07/08/2014 [facility] Calcium Gluconate 3 gm, 30 mL, Route: IVPB, PRN, Dosing Weight 62.813, kg, PRN Abnormal Lab Result, For NON-ICU Patients Only., Start date: 07/08/14 14:08:00, Duration: 30 day, Stop date: 08/07/14 14:07:00 No Longer Active 07/08/2014 [facility] potassium chloride 20 mEq, 1 tab, Route: PO, Drug form: ERTAB, PRN, Dosing Weight 62.813, kg, PRN Abnormal Lab Result, For NON-ICU Patients Only, Start date: 07/08/14 14:08:00, Duration: 30 day, Stop date: 08/07/14 14:07:00Notes: (Same as: K-Dur 20) "Do Not Crush" With food and full glass of water No Longer Active 07/08/2014 [facility] sodium phosphate + Sodium Chloride 0.9% IV 250 mL 30 mmol, 10 mL, Route: IVPB, PRN, Dosing Weight 62.813, kg, PRN Abnormal Lab Result, For NON-ICU Patients Only., Start date: 07/08/14 14:08:00, Duration: 30 day, Stop date: 08/07/14 14:07:00 No Longer Active 07/08/2014 [facility] potassium phosphate + Sodium Chloride 0.9% IV 250 mL 15 mmol, 5 mL, Route: IVPB, PRN, Dosing Weight 62.813, kg, PRN Abnormal Lab Result, For NON-ICU Patients Only., Start date: 07/08/14 14:08:00, Duration: 30 day, Stop date: 08/07/14 14:07:00Notes: (Same as: K Phosphate.) 1 mMol phoshate has 1.47 mEq potassium Infuse over 4 hours No Longer Active 07/08/2014 [facility] potassium phosphate-sodium phosphate 250 mg-278 mg-164 mg oral powder 2 pkt, Route: PO, Drug Form: PDR/REC, Dosing Weight 62.813, kg, PRN, PRN Abnormal Lab Result, For NON-ICU Patients Only, Start date: 07/08/14 14:08:00, Duration: 30 day, Stop date: 08/07/14 14:07:00Notes: (Same as: Neutra- Phos) Each 1.25 gm pkt has 250mg phosphorous. Mix w/2.5oz water and stir. No Longer Active 07/08/2014 [facility] Flexeril 10 mg, 1 tab, Route: PO, Drug form: TAB, Q8H, Dosing Weight 62.813, kg, PRN Spasm, Start date: 07/08/14 13:45:00, Duration: 30 day, Stop date: 08/07/14 13:44:00Notes: (Same As: Flexeril) No Longer Active 07/08/2014 [facility] Morphine 30 mg, 1 tab, Route: PO, Drug form: TAB, Q4H, Dosing Weight 62.813, kg, PRN Pain Score 7-10, Start date: 07/08/14 12:32:00, Duration: 30 day, Stop date: 08/07/14 12:31:00 No Longer Active 07/08/2014 [facility] Saline Flush 0.9% 10 ml, Route: IVP, Drug Form: INJ, Dosing Weight 63.409, kg, Q12H, Start date: 07/08/14 9:00:00, Duration: 30 day, Stop date: 08/06/14 21:00:00Notes: (Same as: BD Posiflush) No Longer Active 07/08/2014 [facility] Levemir FlexPen 40 unit, 0.4 mL, Route: SUB-Q, Drug form: INJ, Daily, Start date: 07/08/14 9:00:00, Duration: 30 day, Stop date: 08/06/14 9:00:00Notes: Same as Levemir Do not hold insulin without contacting prescriber "single patient use only" No Longer Active 07/08/2014 [facility] Protonix 40 mg, Route: IVP, Drug form: INJ, BID, Dosing Weight 63.409, kg, Priority: Routine, Start date: 07/08/14 9:00:00, Duration: 30 day, Stop date: 08/06/14 21:00:00Notes: For IV push reconstitute with 10 ml 0.9% sodium chloride and push over 2 minutes. (Same as: Protonix) Inactive 07/08/2014 [facility] MS Contin 30 mg, 1 tab, Route: PO, Drug form: ERTAB, Q12H, Dosing Weight 63.409, kg, Start date: 07/08/14 9:00:00, Duration: 30 day, Stop date: 08/06/14 21:00:00Notes: Do not crush (Same as:Oramorph SR, MS Contin) Inactive 07/08/2014 [facility] metoprolol tartrate 50 mg, 1 tab, Route: PO, Drug form: TAB, Q12H, Dosing Weight 63.409, kg, Start date: 07/08/14 9:00:00, Duration: 30 day, Stop date: 08/06/14 21:00:00Notes: (Same as: Lopressor) No Longer Active 07/08/2014 [facility] Methocarbamol 1,000 mg, 2 tab, Route: PO, Drug form: TAB, BID, Dosing Weight 63.409, kg, Start date: 07/08/14 9:00:00, Duration: 30 day, Stop date: 08/06/14 21:00:00Notes: (Same as:Robaxin) Inactive 07/08/2014 [facility] Ativan 0.5 mg, 1 tab, Route: PO, Drug form: TAB, TID, Dosing Weight 63.409, kg, Start date: 07/08/14 9:00:00, Duration: 30 day, Stop date: 08/06/14 17:00:00Notes: (Same as: Ativan) No Longer Active 07/08/2014 [facility] Lantus Route: SUB-Q, Daily, Dosing Weight 63.409, kg, Start date: 07/08/14 9:00:00, Duration: 30 day, Stop date: 08/06/14 9:00:00 Inactive 07/08/2014 [facility] enalapril 20 mg, 2 tab, Route: PO, Drug form: TAB, BID, Dosing Weight 63.409, kg, Start date: 07/08/14 9:00:00, Duration: 30 day, Stop date: 08/06/14 21:00:00Notes: (Same as: Vasotec) Inactive 07/08/2014 [facility] Chlorthalidone 25 MG Oral Tablet 25 mg, 1 tab, Route: PO, Drug form: TAB, Daily, Dosing Weight 63.409, kg, Start date: 07/08/14 9:00:00, Duration: 30 day, Stop date: 08/06/14 9:00:00Notes: Non-Formulary Drug (Same As: Hygroton) Inactive 07/08/2014 [facility] Bethanechol 25 mg, 1 tab, Route: PO, Drug form: TAB, TID, Dosing Weight 63.409, kg, Start date: 07/08/14 9:00:00, Duration: 30 day, Stop date: 08/06/14 17:00:00Notes: Take on empty stomach. (Same As: Urecholine) Inactive 07/08/2014 [facility] Amlodipine 5 mg, 1 tab, Route: PO, Drug form: TAB, Daily, Dosing Weight 63.409, kg, Start date: 07/08/14 9:00:00, Duration: 30 day, Stop date: 08/06/14 9:00:00Notes: (Same as: Norvasc) Inactive 07/08/2014 [facility] Clonidine Hydrochloride 0.2 MG Oral Tablet 0.2 mg, 1 tab, Route: PO, Drug form: TAB, TID, Dosing Weight 63.409, kg, Start date: 07/08/14 8:00:00, Duration: 30 day, Stop date: 08/07/14 0:00:00Notes: (Same As: Catapres) Inactive 07/08/2014 [facility] Metoclopramide 10 MG Oral Tablet 10 mg, 1 tab, Route: PO, Drug form: TAB, TID-Before Meals, Dosing Weight 63.409, kg, Start date: 07/08/14 7:30:00, Duration: 30 day, Stop date: 08/06/14 16:30:00Notes: (Same as: Reglan) Take 30 min before meals No Longer Active 07/08/2014 [facility] Thyroxine 100 microgram, 1 tab, Route: PO, Drug form: TAB, Q630AM, Dosing Weight 63.409, kg, Start date: 07/08/14 6:30:00, Duration: 30 day, Stop date: 08/06/14 6:30:00Notes: Take 1 hour before or 2 hours after meal; Enteral feeds may interefere with the absorption of this medication. (Same as:Levothroid, Synthroid) Inactive 07/08/2014 [facility] Morphine Sulfate 30 MG Extended Release Tablet [MS Contin] 30 mg=1 tab, PO, Q8H, 0 Refill(s) Inactive 07/08/2014 [facility] Morphine 0 Refill(s) Inactive 07/08/2014 [facility] Morphine 4 mg, Route: IVP, ONCE, Dosing Weight 63.409, kg, Start date: 07/08/14 3:00:00, Stop date: 07/08/14 3:00:00 Inactive 07/08/2014 [facility] Ambien 5 mg, 1 tab, Route: PO, Drug form: TAB, Bedtime, Dosing Weight 63.409, kg, PRN as needed for sleep, Start date: 07/08/14 3:00:00, Duration: 30 day, Stop date: 08/07/14 2:59:00Notes: (Same As: Ambien) No Longer Active 07/08/2014 [facility] Phenergan 25 mg, 1 tab, Route: PO, Drug form: TAB, Q6H, Dosing Weight 63.409, kg, PRN as needed for nausea/vomiting, Start date: 07/08/14 2:59:00, Duration: 30 day, Stop date: 08/07/14 2:58:00Notes: (Same as: Phenergan) No Longer Active 07/08/2014 [facility] Benadryl 25 mg, 1 tab, Route: PO, Drug form: TAB, Q6H, Dosing Weight 63.409, kg, PRN as needed for allergy symptoms, Start date: 07/08/14 2:56:00, Duration: 30 day, Stop date: 08/07/14 2:55:00 No Longer Active 07/08/2014 [facility] Insulin, Aspart, Human 4 unit, 0.04 mL, Route: SUB-Q, Drug form: SOLN, TID-Before Meals, Dosing Weight 63.409, kg, PRN Blood Glucose Results, Start date: 07/08/14 1:23:00, Duration: 30 day, Stop date: 08/07/14 1:22:00Notes: Roll in palms of hands gently; Do not shake vigorously. (Same as: NovoLOG) "single patient use only" Stable for 28 days at room temperature. Expires in days from Date No Longer Active 07/08/2014 [facility] Dextrose 50% Syringe 25 gm, 50 mL, Route: IVP, Drug Form: INJ, Dosing Weight 63.409, kg, PRN, PRN Blood Glucose Results, Start date: 07/08/14 1:23:00, Duration: 30 day, Stop date: 08/07/14 1:22:00 No Longer Active 07/08/2014 [facility] Glucagon 1 mg, Route: IM, Drug form: PDR/INJ, PRN, Dosing Weight 63.409, kg, PRN Blood Glucose Results, Start date: 07/08/14 1:23:00, Duration: 30 day, Stop date: 08/07/14 1:22:00 No Longer Active 07/08/2014 [facility] Saline Flush 0.9% 10 ml, Route: IVP, Drug Form: INJ, Dosing Weight 63.409, kg, PRN, PRN Line Flush, Start date: 07/08/14 1:19:00, Duration: 30 day, Stop date: 08/07/14 1:18:00Notes: (Same as: BD Posiflush) No Longer Active 07/08/2014 [facility] Sodium Chloride 0.154 MEQ/ML Injectable Solution 1,000 mL, Rate: 100 ml/hr, Infuse over: 10 hr, Route: IV, Dosing Weight 63.409 kg, Total Volume: 1,000, Start date: 07/08/14 1:19:00, Duration: 1 day, Stop date: 07/09/14 1:18:00 No Longer Active 07/08/2014 [facility] metoprolol tartrate 50 mg, 2 tab, Route: PO, Drug form: TAB, ONCE, Dosing Weight 63.409, kg, Priority: STAT, Start date: 07/07/14 23:26:00, Stop date: 07/07/14 23:26:00Notes: (Same as: Lopressor) Inactive 07/08/2014 [facility] Digoxin 0 Refill(s) No Longer Active 07/08/2014 [facility] Xanax 0 Refill(s) No Longer Active 07/08/2014 [facility] Morphine 4 mg, 1 mL, Route: IVP, Drug form: INJ, ONCE, Dosing Weight 63.409, kg, Priority: STAT, Start date: 07/07/14 21:18:00, Stop date: 07/07/14 21:18:00Notes: (Same as:MORPhine Sulfate) Inactive 07/08/2014 [facility] Saline Flush 0.9% 10 mL, Route: IVP, Drug Form: INJ, Dosing Weight 63.409, kg, PRN, PRN Line Flush, Start date: 07/07/14 21:18:00, Duration: 30 day, Stop date: 08/06/14 21:17:00Notes: (Same as: BD Posiflush) No Longer Active 07/08/2014 [facility] Sodium Chloride 0.154 MEQ/ML Injectable Solution 1,000 mL, 1000 ml/hr, Infuse Over: 1 hr, Route: IV, 1,000, Drug form: INJ, ONCE, Priority: STAT, Dosing Weight 63.409 kg, Start date: 07/07/14 21:18:00, Duration: 1 doses or times, Stop date: 07/07/14 21:18:00 Inactive 07/08/2014 [facility] Diphenhydramine 12.5 mg, 0.25 mL, Route: IVP, Drug form: INJ, ONCE, Dosing Weight 63.409, kg, Priority: STAT, Start date: 07/07/14 21:17:00, Stop date: 07/07/14 21:17:00Notes: (Same as: Benadryl) Inactive 07/08/2014 [facility] Metoclopramide 10 mg, 2 mL, Route: IVP, Drug form: INJ, ONCE, Dosing Weight 63.409, kg, Priority: STAT, Start date: 07/07/14 21:17:00, Stop date: 07/07/14 21:17:00Notes: (Same as: Reglan) Inactive 07/08/2014 [facility] Promethazine Hydrochloride 25 MG Oral Tablet [Phenergan] 25 mg=1 tab, PO, Q6H, Nausea, # 15 tab, 0 Refill(s) On Hold 07/07/2014 [facility] amLODIPine 5 mg oral tablet 5 mg=1 tab, PO, Daily, # 30 tab, 0 Refill(s) On Hold 07/07/2014 [facility] Promethazine Hydrochloride 25 MG Oral Tablet [Phenergan] 25 mg=1 tab, PO, Q6H, Nausea, # 15 tab, 0 Refill(s) On Hold 07/07/2014 [facility] amLODIPine 5 mg oral tablet 5 mg=1 tab, PO, Daily, # 30 tab, 0 Refill(s) On Hold 07/07/2014 [facility] Labetalol 10 mg, 2 mL, Route: IVP, Drug form: INJ, ONCE, Dosing Weight 67.727, kg, Priority: STAT, Start date: 07/06/14 20:47:00, Stop date: 07/06/14 20:47:00Notes: (Same as: Normodyne, Trandate) Push over 2 minutes Give bolus over 2-3 minutes. Inactive 07/07/2014 [facility] Benadryl 25 mg, Route: PO, Drug form: TAB, ONCE, Dosing Weight 67.727, kg, Priority: STAT, Start date: 07/06/14 19:51:00, Stop date: 07/06/14 19:51:00 Inactive 07/07/2014 [facility] Morphine 4 mg, 1 mL, Route: IVP, Drug form: INJ, ONCE, Dosing Weight 67.727, kg, Priority: STAT, Start date: 07/06/14 19:17:00, Stop date: 07/06/14 19:17:00Notes: (Same as:MORPhine Sulfate) Inactive 07/07/2014 [facility] 300 MG tioconazole 0.065 MG/MG Prefilled Applicator [Vagistat-1] 1 appl, VAG, Bedtime, # 4 gm, 0 Refill(s) On Hold 07/07/2014 [facility] Sulfamethoxazole 800 MG / Trimethoprim 160 MG Oral Tablet [Bactrim] 1 tab, PO, BID, # 6 tab, 0 Refill(s) On Hold 07/07/2014 [facility] omeprazole 40 mg oral delayed release capsule 40 mg=1 cap, PO, Daily, # 30 cap, 0 Refill(s) On Hold 07/07/2014 [facility] Insulin regular 20 unit, 0.2 mL, Route: SUB-Q, Drug form: SOLN, ONCE, Dosing Weight 67.727, kg, Priority: STAT, Start date: 07/06/14 18:04:00, Stop date: 07/06/14 18:04:00Notes: (Same as: Humulin R) Roll in palms of hands gently; Do not shake vigorously. "single patient use only" (Restricted to patients requiring a dose > 60 units) Stable for 28 days at room temperature Expires in days from Date Inactive 07/06/2014 [facility] Sodium Chloride 0.154 MEQ/ML Injectable Solution 1,000 mL, 1000 ml/hr, Infuse Over: 1 hr, Route: IV, 1,000, Drug form: INJ, ONCE, Priority: STAT, Dosing Weight 67.727 kg, Start date: 07/06/14 18:04:00, Duration: 1 doses or times, Stop date: 07/06/14 18:04:00 Inactive 07/06/2014 [facility] Morphine 2 mg, Route: IM, Drug form: INJ, ONCE, Dosing Weight 67.727, kg, Priority: STAT, Start date: 07/06/14 17:48:00, Stop date: 07/06/14 17:48:00 Inactive 07/06/2014 [facility] Phenergan 12.5 mg, 0.5 tab, Route: PO, Drug form: TAB, ONCE, Dosing Weight 63.182, kg, Priority: STAT, Start date: 07/06/14 16:34:00, Stop date: 07/06/14 16:34:00Notes: (Same as: Phenergan) Inactive 07/06/2014 [facility] Morphine 2 mg, 1 mL, Route: IVP, Drug form: INJ, ONCE, Dosing Weight 63.182, kg, Priority: STAT, Start date: 07/06/14 16:33:00, Stop date: 07/06/14 16:33:00Notes: (Same as:MORPhine Sulfate) Inactive 07/06/2014 [facility] Saline Flush 0.9% 10 mL, Route: IVP, Drug Form: INJ, Dosing Weight 63.182, kg, PRN, PRN Line Flush, Start date: 07/06/14 16:23:00, Duration: 1 day, Stop date: 07/07/14 16:22:00Notes: (Same as: BD Posiflush) No Longer Active 07/06/2014 [facility] Lorazepam 1 MG Oral Tablet [Ativan] 1 mg=1 tab, PO, Q6H, Anxiety, # 12 tab, 0 Refill(s) Active 06/05/2014 [facility] Sulfamethoxazole 800 MG / Trimethoprim 160 MG Oral Tablet 1 tab, PO, Q12H, # 20 tab, 0 Refill(s) Active 06/05/2014 [facility] promethazine 12.5 mg oral tablet 12.5 mg=1 tab, PO, Q4H, Nausea & Vomiting, # 60 tab, 0 Refill(s) Active 06/05/2014 [facility] Phenergan 25 mg, 50 mL, Route: IVPB, Drug form: SOLN, ONCE, Dosing Weight 63.182, kg, Priority: STAT, Start date: 06/04/14 23:07:00, Stop date: 06/04/14 23:07:00 Inactive 06/05/2014 [facility] Insulin, Regular, Pork 10 unit, Route: IVP, ONCE, Dosing Weight 63.182, kg, Priority: STAT, Start date: 06/04/14 21:15:00, Stop date: 06/04/14 21:15:00 Inactive 06/05/2014 [facility] Ativan 1 mg, Route: IV, ONCE, Dosing Weight 63.182, kg, Priority: STAT, Start date: 06/04/14 21:12:00, Stop date: 06/04/14 21:12:00 Inactive 06/05/2014 [facility] Diphenhydramine 25 mg, 0.5 mL, Route: IVP, Drug form: INJ, ONCE, Dosing Weight 63.182, kg, Priority: STAT, Start date: 06/04/14 20:11:00, Stop date: 06/04/14 20:11:00Notes: (Same as: Benadryl) Inactive 06/05/2014 [facility] Metoclopramide 10 mg, 2 mL, Route: IVP, Drug form: INJ, ONCE, Dosing Weight 63.182, kg, Priority: STAT, Start date: 06/04/14 20:11:00, Stop date: 06/04/14 20:11:00Notes: (Same as: Reglan) Inactive 06/05/2014 [facility] Morphine 4 mg, 1 mL, Route: IVP, Drug form: INJ, ONCE, Dosing Weight 63.182, kg, Priority: STAT, Start date: 06/04/14 20:11:00, Stop date: 06/04/14 20:11:00Notes: (Same as:MORPhine Sulfate) Inactive 06/05/2014 [facility] pantoprazole 40 mg, Route: IVP, Drug form: INJ, ONCE, Dosing Weight 63.182, kg, For IV push reconstitute with 10 ml 0.9% sodium chloride and push over at least 3 minutes, Priority: STAT, Start date: 06/04/14 20:11:00, Stop date: 06/04/14 20:11:00Notes: For IV push reconstitute with 10 ml 0.9% sodium chloride and push over 2 minutes. (Same as: Protonix) Inactive 06/05/2014 [facility] Sodium Chloride 0.154 MEQ/ML Injectable Solution 1,000 mL, 1,000 ml/hr, Infuse Over: 1 hr, Route: IV, 1,000, Drug form: INJ, ONCE, Priority: STAT, Dosing Weight 63.182 kg, Start date: 06/04/14 20:11:00, Stop date: 06/04/14 20:11:00 Inactive 06/05/2014 [facility] Diphenhydramine 25 mg, 0.5 mL, Route: IVP, Drug form: INJ, ONCE, Dosing Weight 63.182, kg, Priority: STAT, Start date: 06/04/14 19:26:00, Stop date: 06/04/14 19:26:00Notes: (Same as: Benadryl) Inactive 06/05/2014 [facility] pantoprazole 40 mg, Route: IVP, Drug form: INJ, ONCE, Dosing Weight 63.182, kg, For IV push reconstitute with 10 ml 0.9% sodium chloride and push over at least 3 minutes, Priority: STAT, Start date: 06/04/14 17:04:00, Stop date: 06/04/14 17:04:00Notes: For IV push reconstitute with 10 ml 0.9% sodium chloride and push over 2 minutes. (Same as: Protonix) Inactive 06/04/2014 [facility] Metoclopramide 10 mg, 2 mL, Route: IVP, Drug form: INJ, ONCE, Dosing Weight 63.182, kg, Priority: STAT, Start date: 06/04/14 17:04:00, Stop date: 06/04/14 17:04:00Notes: (Same as: Reglan) Inactive 06/04/2014 [facility] Morphine 4 mg, 1 mL, Route: IVP, Drug form: INJ, ONCE, Dosing Weight 63.182, kg, Priority: STAT, Start date: 06/04/14 17:04:00, Stop date: 06/04/14 17:04:00Notes: (Same as:MORPhine Sulfate) Inactive 06/04/2014 [facility] Sodium Chloride 0.154 MEQ/ML Injectable Solution 1,000 mL, 1000 ml/hr, Infuse Over: 1 hr, Route: IV, 1,000, Drug form: INJ, ONCE, Priority: STAT, Dosing Weight 63.182 kg, Start date: 06/04/14 17:04:00, Duration: 1 doses or times, Stop date: 06/04/14 17:04:00 Inactive 06/04/2014 [facility] Saline Flush 0.9% 10 mL, Route: IVP, Drug Form: INJ, Dosing Weight 63.182, kg, PRN, PRN Line Flush, Start date: 06/04/14 17:04:00, Duration: 1 day, Stop date: 06/05/14 17:03:00Notes: (Same as: BD Posiflush) No Longer Active 06/04/2014 [facility] Metoclopramide 10 MG Oral Tablet [Reglan] 10 mg=1 tab, PO, QID, prn vomiting, # 28 tab, 0 Refill(s) Active 05/15/2014 [facility] Promethazine Hydrochloride 25 MG Rectal Suppository [Phenergan] 25 mg=1 supp, [place], Q6H, Nausea & Vomiting, # 9 supp, 0 Refill(s) Active 05/15/2014 [facility] ciprofloxacin 500 mg oral tablet 500 mg=1 tab, PO, Q12H, # 14 tab, 0 Refill(s) Active 05/15/2014 [facility] Sodium Chloride 0.154 MEQ/ML Injectable Solution 1,000 mL, 1000 ml/hr, Infuse Over: 1 hr, Route: IV, 1,000, Drug form: INJ, ONCE, Priority: STAT, Dosing Weight 63.636 kg, Start date: 05/14/14 20:26:00, Duration: 1 doses or times, Stop date: 05/14/14 20:26:00 Inactive 05/15/2014 [facility] Benadryl 25 mg, 0.5 mL, Route: IVP, Drug form: INJ, ONCE, Dosing Weight 63.636, kg, Priority: STAT, Start date: 05/14/14 20:08:00, Stop date: 05/14/14 20:08:00Notes: (Same as: Benadryl) Inactive 05/15/2014 [facility] Rocephin 1 gm, Route: IVPB, ONCE, Dosing Weight 63.636, kg, Priority: STAT, Start date: 05/14/14 18:36:00, Stop date: 05/14/14 18:36:00Notes: (Same As: Rocephin). Use with 100ml NS mini-bag PLUS and infuse over 30 min Inactive 05/15/2014 [facility] Insulin, Regular, Pork 12 unit, Route: IVP, ONCE, Dosing Weight 63.636, kg, Priority: STAT, Start date: 05/14/14 18:35:00, Stop date: 05/14/14 18:35:00 Inactive 05/15/2014 [facility] Morphine 4 mg, 1 mL, Route: IVP, Drug form: INJ, ONCE, Dosing Weight 63.636, kg, Priority: STAT, Start date: 05/14/14 18:26:00, Stop date: 05/14/14 18:26:00Notes: (Same as:MORPhine Sulfate) Inactive 05/15/2014 [facility] Metoclopramide 10 mg, 2 mL, Route: IVP, Drug form: INJ, ONCE, Dosing Weight 63.636, kg, Priority: STAT, Start date: 05/14/14 17:21:00, Stop date: 05/14/14 17:21:00Notes: (Same as: Reglan) Inactive 05/14/2014 [facility] Saline Flush 0.9% 10 mL, Route: IVP, Drug Form: INJ, Dosing Weight 63.636, kg, PRN, PRN Line Flush, Start date: 05/14/14 17:21:00, Duration: 30 day, Stop date: 06/13/14 17:20:00Notes: (Same as: BD Posiflush) No Longer Active 05/14/2014 [facility] Sodium Chloride 0.154 MEQ/ML Injectable Solution 1,000 mL, 1000 ml/hr, Infuse Over: 1 hr, Route: IV, 1,000, Drug form: INJ, ONCE, Priority: STAT, Dosing Weight 63.636 kg, Start date: 05/14/14 17:21:00, Duration: 1 doses or times, Stop date: 05/14/14 17:21:00 Inactive 05/14/2014 [facility] Hydrocortisone 10 MG/ML / Neomycin 3.5 MG/ML / Polymyxin B 54811 UNT/ML Otic Suspension 2 drp, LEFT EAR, QID, # 10 ml, 0 Refill(s) Active 03/22/2014 [facility] Diazepam 5 MG Oral Tablet [Valium] 5 mg=1 tab, PO, TID, Pain, # 15 tab, 0 Refill(s) Active 03/22/2014 [facility] Promethazine Hydrochloride 25 MG Oral Tablet [Phenergan] 25 mg=1 tab, PO, Q6H, Nausea, # 15 tab, 0 Refill(s) Active 03/22/2014 [facility] Azithromycin 5 Day Dose Pack 250 mg oral tablet 250 mg, PO, Daily, Take 2 tablets by mouth the first day then 1 tablet by mouth days 2- 5, # 6 tab, 0 Refill(s)Special Instructions: Take 2 tablets by mouth the first day then 1 tablet by mouth days 2-5 Active 03/22/2014 [facility] Valium 5 mg, 1 mL, Route: IVP, Drug form: INJ, ONCE, Dosing Weight 62.443, kg, Priority: STAT, Start date: 03/21/14 21:20:00, Stop date: 03/21/14 21:20:00Notes: (Same as: Valium) Inactive 03/22/2014 [facility] Sodium Chloride 0.154 MEQ/ML Injectable Solution 1,000 mL, 1,000 ml/hr, Infuse Over: 1 hr, Route: IV, 1,000, Drug form: INJ, ONCE, Priority: STAT, Dosing Weight 62.443 kg, Start date: 03/21/14 20:35:00, Duration: 1 doses or times, Stop date: 03/21/14 20:35:00 Inactive 03/22/2014 [facility] Insulin, Regular, Pork 15 unit, 0.15 mL, Route: IVP, Drug form: SOLN, ONCE, Dosing Weight 62.443, kg, Priority: STAT, Start date: 03/21/14 20:30:00, Stop date: 03/21/14 20:30:00Notes: (Same as: Humulin R) Roll in palms of hands gently; Do not shake vigorously. "single patient use only" (Restricted to patients requiring a dose > 60 units) Stable for 28 days at room temperature Expires in days from Date Inactive 03/22/2014 [facility] Benadryl 50 mg, 1 mL, Route: IVP, Drug form: INJ, ONCE, Dosing Weight 62.443, kg, Priority: STAT, Start date: 03/21/14 20:15:00, Stop date: 03/21/14 20:15:00Notes: (Same as: Benadryl) Inactive 03/22/2014 [facility] Sodium Chloride 0.154 MEQ/ML Injectable Solution 1,000 mL, 1,000 ml/hr, Infuse Over: 1 hr, Route: IV, 1,000, Drug form: INJ, ONCE, Priority: STAT, Dosing Weight 62.443 kg, Start date: 03/21/14 19:22:00, Duration: 1 doses or times, Stop date: 03/21/14 19:22:00 Inactive 03/22/2014 [facility] Benadryl 50 mg, 2 tab, Route: PO, Drug form: TAB, ONCE, Dosing Weight 62.443, kg, Priority: STAT, Start date: 03/21/14 19:21:00, Stop date: 03/21/14 19:21:00 Inactive 03/22/2014 [facility] Phenergan 25 mg, 50 mL, Route: IVPB, Drug form: SOLN, ONCE, Dosing Weight 62.443, kg, Priority: STAT, Start date: 03/21/14 19:21:00, Stop date: 03/21/14 19:21:00 Inactive 03/22/2014 [facility] Morphine 4 mg, 1 mL, Route: IVP, Drug form: INJ, ONCE, Dosing Weight 62.443, kg, Priority: STAT, Start date: 03/21/14 19:21:00, Stop date: 03/21/14 19:21:00Notes: (Same as:MORPhine Sulfate) Inactive 03/22/2014 [facility] Saline Flush 0.9% 10 mL, Route: IVP, Drug Form: INJ, Dosing Weight 62.443, kg, PRN, PRN Line Flush, Start date: 03/21/14 19:21:00, Duration: 30 day, Stop date: 04/20/14 19:20:00Notes: preservative free. Inactive 03/22/2014 [facility] Acetic Acid 20 MG/ML Otic Solution 5 drp, LEFT EAR, TID, # 15 ml, 0 Refill(s) Active 03/21/2014 [facility] Dicyclomine Hydrochloride 20 MG Oral Tablet [Bentyl] 20 mg=1 tab, PO, QID, # 20 tab, 0 Refill(s) Active 03/21/2014 [facility] Antipyrine 54 MG/ML / Benzocaine 14 MG/ML Otic Solution 4 drp, OTIC, Q4H, for pain, # 15 ml, 0 Refill(s) Active 03/21/2014 [facility] Insulin, Regular, Pork 10 unit, 0.1 mL, Route: SUB-Q, Drug form: SOLN, ONCE, Dosing Weight 63.636, kg, Priority: STAT, Start date: 03/20/14 23:46:00, Stop date: 03/20/14 23:46:00Notes: (Same as: Humulin R) Roll in palms of hands gently; Do not shake vigorously. "single patient use only" (Restricted to patients requiring a dose > 60 units) Stable for 28 days at room temperature Expires in days from Date Inactive 03/21/2014 [facility] Insulin, Regular, Pork 15 unit, 0.15 mL, Route: SUB-Q, Drug form: SOLN, ONCE, Dosing Weight 63.636, kg, Priority: STAT, Start date: 03/20/14 21:11:00, Stop date: 03/20/14 21:11:00Notes: (Same as: Humulin R) Roll in palms of hands gently; Do not shake vigorously. "single patient use only" (Restricted to patients requiring a dose > 60 units) Stable for 28 days at room temperature Expires in days from Date Inactive 03/21/2014 [facility] Metoclopramide 10 mg, Route: IM, Drug form: INJ, ONCE, Dosing Weight 63.636, kg, Priority: STAT, Start date: 03/20/14 20:52:00, Stop date: 03/20/14 20:52:00 Inactive 03/21/2014 [facility] Diphenhydramine 25 mg, 1 tab, Route: PO, Drug form: TAB, ONCE, Dosing Weight 63.636, kg, Priority: STAT, Start date: 03/20/14 20:32:00, Stop date: 03/20/14 20:32:00 Inactive 03/21/2014 [facility] Promethazine 25 mg, 1 mL, Route: IM, Drug form: INJ, ONCE, Dosing Weight 63.636, kg, Priority: STAT, Start date: 03/20/14 20:32:00, Stop date: 03/20/14 20:32:00Notes: Do not give IV push. (Same as: Phenergan) Inactive 03/21/2014 [facility] Benadryl 25 mg, 1 tab, Route: PO, Drug form: TAB, ONCE, Dosing Weight 63.636, kg, Priority: STAT, Start date: 03/20/14 20:08:00, Stop date: 03/20/14 20:08:00 Inactive 03/21/2014 [facility] Dicyclomine 20 mg, 2 mL, Route: IM, Drug form: INJ, ONCE, Dosing Weight 63.636, kg, Priority: STAT, Start date: 03/20/14 20:04:00, Stop date: 03/20/14 20:04:00Notes: (Same as: Bentyl) Inactive 03/21/2014 [facility] Saline Flush 0.9% 10 mL, Route: IVP, Drug Form: INJ, Dosing Weight 63.636, kg, PRN, PRN Line Flush, Start date: 03/20/14 20:04:00, Duration: 30 day, Stop date: 04/19/14 20:03:00Notes: (Same as: BD Posiflush) Inactive 03/21/2014 [facility] Metoclopramide 10 mg, 2 mL, Route: IVP, Drug form: INJ, ONCE, Dosing Weight 63.636, kg, Priority: STAT, Start date: 03/20/14 20:04:00, Stop date: 03/20/14 20:04:00Notes: (Same as: Reglan) Inactive 03/21/2014 [facility] Ciprofloxacin 500 MG Oral Tablet [Cipro] 500 mg=1 tab, PO, Q12H, # 14 tab, 0 Refill(s) Active 01/29/2014 [facility] Acetaminophen 300 MG / Codeine Phosphate 30 MG Oral Tablet [Tylenol with Codeine #3] 2 tab, PO, TID, for pain, # 15 tab, 0 Refill(s) Active 01/29/2014 [facility] Morphine 4 mg, 1 mL, Route: IVP, Drug form: INJ, ONCE, Dosing Weight 72.727, kg, Priority: STAT, Start date: 01/29/14 10:47:00, Stop date: 01/29/14 10:47:00Notes: (Same as:MORPhine Sulfate) Inactive 01/29/2014 [facility] Ceftriaxone 1 gm, Route: IVPB, ONCE, Dosing Weight 72.727, kg, Priority: STAT, Start date: 01/29/14 10:46:00, Stop date: 01/29/14 10:46:00Notes: (Same As: Rocephin). Use with 100ml NS mini-bag PLUS and infuse over 30 min Inactive 01/29/2014 [facility] Insulin, Regular, Pork 10 unit, 0.1 mL, Route: IVP, Drug form: SOLN, ONCE, Dosing Weight 72.727, kg, Priority: STAT, Start date: 01/29/14 9:49:00, Stop date: 01/29/14 9:49:00Notes: (Same as: Humulin R) Roll in palms of hands gently; Do not shake vigorously. "single patient use only" (Restricted to patients requiring a dose > 60 units) Stable for 28 days at room temperature Expires in days from Date Inactive 01/29/2014 [facility] Morphine 4 mg, 1 mL, Route: IVP, Drug form: INJ, ONCE, Dosing Weight 72.727, kg, Priority: STAT, Start date: 01/29/14 9:11:00, Stop date: 01/29/14 9:11:00Notes: (Same as:MORPhine Sulfate) Inactive 01/29/2014 [facility] Reglan 10 mg, 2 mL, Route: IVP, Drug form: INJ, ONCE, Dosing Weight 72.727, kg, Priority: STAT, Start date: 01/29/14 8:11:00, Stop date: 01/29/14 8:11:00Notes: (Same as: Reglan) Inactive 01/29/2014 [facility] Benadryl 50 mg, 1 mL, Route: IVP, Drug form: INJ, ONCE, Dosing Weight 72.727, kg, Priority: STAT, Start date: 01/29/14 8:11:00, Stop date: 01/29/14 8:11:00Notes: (Same as: Benadryl) Inactive 01/29/2014 [facility] Sodium Chloride 0.154 MEQ/ML Injectable Solution 1,000 mL, 1,000 ml/hr, Infuse Over: 1 hr, Route: IV, 1,000, Drug form: INJ, ONCE, Priority: STAT, Dosing Weight 63.352 kg, Start date: 01/29/14 8:10:00, Duration: 1 doses or times, Stop date: 01/29/14 8:10:00 Inactive 01/29/2014 [facility] Nitrofurantoin 100 MG Oral Capsule [Macrobid] 100 mg=1 cap, PO, BID, # 20 cap, 0 Refill(s) Active 10/23/2013 [facility] GI cocktail 30 mL, Route: PO, Drug Form: SUSP, Dosing Weight 59.091, kg, ONCE, STAT, Start date: 10/22/13 19:05:00, Stop date: 10/22/13 19:05:00Notes: G.I. Cocktail=antacid with simethicone 22.5 mL - lidocaine v iscous 7.5 mL Inactive 10/23/2013 [facility] Morphine 6 mg, 0.6 mL, Route: IM, Drug form: SOLN, ONCE, Dosing Weight 59.091, kg, Priority: STAT, Start date: 10/22/13 19:02:00, Stop date: 10/22/13 19:02:00Notes: (Same as: MORPhine Sulfate) Inactive 10/23/2013 [facility] Benadryl 25 mg, 0.5 mL, Route: IM, Drug form: INJ, ONCE, Dosing Weight 59.091, kg, Priority: STAT, Start date: 10/22/13 19:02:00, Stop date: 10/22/13 19:02:00Notes: (Same as: Benadryl) Inactive 10/23/2013 [facility] Phenergan 25 mg, 1 mL, Route: IM, Drug form: INJ, ONCE, Dosing Weight 59.091, kg, Priority: STAT, Start date: 10/22/13 19:02:00, Stop date: 10/22/13 19:02:00Notes: Do not give IV push. (Same as: Phenergan) Inactive 10/23/2013 [facility] Erythromycin 250 MG Enteric Coated Tablet =1 tab, PO, Q6H, # 28 tab, 0 Refill(s) Active 10/12/2013 [facility] omeprazole 20 mg oral enteric coated tablet 20 mg=1 tab, PO, BID, # 30 tab, 0 Refill(s) Active 10/12/2013 [facility] Metoclopramide 10 MG Oral Tablet [Reglan] 10 mg=1 tab, PO, QID, # 20 tab, 0 Refill(s) Active 10/12/2013 [facility] Benadryl 50 mg, 1 mL, Route: IM, Drug form: INJ, ONCE, Dosing Weight 55.909, kg, Priority: STAT, Start date: 10/12/13 15:58:00, Stop date: 10/12/13 15:58:00Notes: (Same as: Benadryl) Inactive 10/12/2013 [facility] Reglan 10 mg, 2 mL, Route: IM, Drug form: INJ, ONCE, Dosing Weight 55.909, kg, Priority: STAT, Start date: 10/12/13 15:57:00, Stop date: 10/12/13 15:57:00Notes: (Same as: Reglan) Inactive 10/12/2013 [facility] Diphenhydramine Hydrochloride 2.5 MG/ML Oral Solution [Benadryl] 25 mg=10 mL, PO, TID, # 120 mL, 0 Refill(s) Active 10/10/2013 [facility] Diphenhydramine Hydrochloride 25 MG Oral Tablet [Benadryl] 25 mg=1 tab, PO, BID, Take together with Zofran, # 48 tab, 0 Refill(s)Special Instructions: Take together with Zofran Active 10/10/2013 [facility] Promethazine Hydrochloride 25 MG Oral Tablet [Phenergan] 25 mg=1 tab, PO, Q4H, Nausea, # 50 tab, 0 Refill(s) Active 10/10/2013 [facility] meclizine 50 mg oral tablet 50 mg=1 tab, PO, BID, Dizziness/Vertigo, # 20 tab, 0 Refill(s) Active 10/10/2013 [facility] Ondansetron 4 MG Disintegrating Tablet [Zofran] 4 mg=1 tab, PO, BID, Nausea and Vomiting, Dissolve tab under tongue. Take together with Benadryl, # 20 tab, 0 Refill(s)Special Instructions: Dissolve tab under tongue. Take together with Benadryl Active 10/10/2013 [facility] Morphine 4 mg, 1 mL, Route: IM, Drug form: INJ, ONCE, Dosing Weight 55.909, kg, Priority: STAT, Start date: 10/10/13 18:01:00, Stop date: 10/10/13 18:01:00Notes: (Same as:MORPhine Sulfate) Inactive 10/10/2013 [facility] Meclizine 50 mg, 2 tab, Route: PO, Drug form: TAB, ONCE, Dosing Weight 55.909, kg, Priority: STAT, Start date: 10/10/13 17:14:00, Stop date: 10/10/13 17:14:00Notes: (Same as: Antivert) Inactive 10/10/2013 [facility] Zofran ODT 4 mg, Route: PO, Drug form: TABDIS, ONCE, Dosing Weight 55.909, kg, Priority: STAT, Start date: 10/10/13 16:55:00, Stop date: 10/10/13 16:55:00 Inactive 10/10/2013 [facility] Morphine 8 mg, 0.8 mL, Route: IM, Drug form: SOLN, ONCE, Dosing Weight 55.909, kg, Priority: STAT, Start date: 10/10/13 16:49:00, Stop date: 10/10/13 16:49:00Notes: (Same as: MORPhine Sulfate) Inactive 10/10/2013 [facility] Benadryl 25 mg, 0.5 mL, Route: IM, Drug form: INJ, ONCE, Dosing Weight 55.909, kg, Priority: STAT, Start date: 10/10/13 16:49:00, Stop date: 10/10/13 16:49:00Notes: (Same as: Benadryl) Inactive 10/10/2013 [facility] Phenergan 25 mg, 1 mL, Route: IM, Drug form: INJ, ONCE, Dosing Weight 55.909, kg, Priority: STAT, Start date: 10/10/13 16:04:00, Stop date: 10/10/13 16:04:00Notes: Do not give IV push. (Same as: Phenergan) Inactive 10/10/2013 [facility] Morphine 6 mg, 1.5 mL, Route: IVP, Drug form: INJ, ONCE, Dosing Weight 55.909, kg, Priority: STAT, Start date: 10/10/13 15:42:00, Stop date: 10/10/13 15:42:00Notes: (Same as:MORPhine Sulfate) Inactive 10/10/2013 [facility] OXcarbazepine 150 mg oral tablet 150 mg=1 tab, ONCE, 0 Refill(s) Active 10/10/2013 [facility] Phenergan 25 mg, 50 mL, Route: IVPB, Drug form: SOLN, ONCE, Dosing Weight 55.909, kg, Priority: STAT, Start date: 10/10/13 15:09:00, Stop date: 10/10/13 15:09:00 Inactive 10/10/2013 [facility] Sodium Chloride 0.154 MEQ/ML Injectable Solution 1,000 mL, 1000 ml/hr, Infuse Over: 1 hr, Route: IV, 1,000, Drug form: INJ, ONCE, Priority: STAT, Dosing Weight 55.909 kg, Start date: 10/10/13 15:09:00, Duration: 1 doses or times, Stop date: 10/10/13 15:09:00 Inactive 10/10/2013 [facility] Saline Flush 0.9% 5 mL, Route: IVP, Drug Form: INJ, Dosing Weight 55.909, kg, PRN, PRN Line Flush, Start date: 10/10/13 15:09:00, Duration: 24 hr, Stop date: 10/11/13 15:08:00Notes: (Same as: BD Posiflush) Inactive 10/10/2013 [facility] Benadryl 25 mg, Route: IVP, ONCE, Dosing Weight 55.909, kg, Priority: STAT, Start date: 09/26/13 17:18:00, Stop date: 09/26/13 17:18:00 Inactive 09/26/2013 [facility] Morphine 4 mg, 1 mL, Route: IVP, Drug form: INJ, ONCE, Dosing Weight 55.909, kg, Start date: 09/26/13 16:36:00, Stop date: 09/26/13 16:36:00Notes: (Same as:MORPhine Sulfate) Inactive 09/26/2013 [facility] Insulin, Regular, Pork 10 unit, 0.1 mL, Route: IVP, Drug form: SOLN, ONCE, Dosing Weight 55.909, kg, Priority: STAT, Start date: 09/26/13 16:30:00, Stop date: 09/26/13 16:30:00Notes: (Same as: Humulin R) Roll in palms of hands gently; Do not shake vigorously. "single patient use only" (Restricted to patients requiring a dose > 60 units) Stable for 28 days at room temperature Expires in days from Date Inactive 09/26/2013 [facility] Benadryl 25 mg, 0.5 mL, Route: IVP, Drug form: INJ, ONCE, Dosing Weight 55.909, kg, Priority: STAT, Start date: 09/26/13 15:15:00, Stop date: 09/26/13 15:15:00Notes: (Same as: Benadryl) Inactive 09/26/2013 [facility] Reglan 10 mg, Route: IVP, Drug form: INJ, ONCE, Dosing Weight 55.909, kg, Priority: STAT, Start date: 09/26/13 15:15:00, Stop date: 09/26/13 15:15:00 Inactive 09/26/2013 [facility] Morphine 4 mg, 1 mL, Route: IVP, Drug form: INJ, ONCE, Dosing Weight 55.909, kg, Priority: STAT, Start date: 09/26/13 15:15:00, Stop date: 09/26/13 15:15:00Notes: (Same as:MORPhine Sulfate) Inactive 09/26/2013 [facility] Sodium Chloride 0.154 MEQ/ML Injectable Solution 1,000 mL, 1000 ml/hr, Infuse Over: 1 hr, Route: IV, 1,000, Drug form: INJ, ONCE, Priority: STAT, Dosing Weight 55.909 kg, Start date: 09/26/13 15:15:00, Duration: 1 doses or times, Stop date: 09/26/13 15:15:00 Inactive 09/26/2013 [facility] Sulfamethoxazole 800 MG / Trimethoprim 160 MG Oral Tablet [Bactrim] 1 tab, PO, BID, # 14 tab, 0 Refill(s) Active 09/22/2013 [facility] Pepcid 20 mg, 2 mL, Route: IV, Drug form: INJ, ONCE, Dosing Weight 55.909, kg, Start date: 09/21/13 19:36:00, Stop date: 09/21/13 19:36:00Notes: (Same as: Pepcid) Can be dilute in 5-10cc NS IVP: Slow IV push over at least 2 minutes. Inactive 09/22/2013 [facility] Benadryl 12.5 mg, 0.25 mL, Route: IVP, Drug form: INJ, ONCE, Dosing Weight 55.909, kg, Priority: STAT, Start date: 09/21/13 19:35:00, Stop date: 09/21/13 19:35:00Notes: (Same as: Benadryl) Inactive 09/22/2013 [facility] Docusate Sodium 100 MG Oral Capsule [Colace] 100 mg=1 cap, PO, BID, Constipation, # 20 cap, 0 Refill(s) Active 09/22/2013 [facility] Psyllium 500 MG Oral Capsule [Metamucil] 1,000 mg=2 cap, PO, TID, for constipation, # 100 cap, 0 Refill(s) Active 09/22/2013 [facility] POLYETHYLENE GLYCOL 3350 142 MG/ML Oral Solution [Miralax] 17 gm, PO, Daily, # 527 gm, 0 Refill(s) Active 09/22/2013 [facility] Benadryl 25 mg, 1 tab, Route: PO, Drug form: TAB, ONCE, Dosing Weight 55.909, kg, Priority: STAT, Start date: 09/21/13 18:48:00, Stop date: 09/21/13 18:48:00 Inactive 09/21/2013 [facility] Morphine 4 mg, 1 mL, Route: IVP, Drug form: INJ, ONCE, Dosing Weight 55.909, kg, Priority: STAT, Start date: 09/21/13 18:48:00, Stop date: 09/21/13 18:48:00Notes: (Same as:MORPhine Sulfate) Inactive 09/21/2013 [facility] GI cocktail 30 mL, Route: PO, Drug Form: SUSP, Dosing Weight 55.909, kg, ONCE, STAT, Start date: 09/21/13 18:47:00, Stop date: 09/21/13 18:47:00Notes: G.I. Cocktail=antacid with simethicone 22.5 mL - lidocaine v iscous 7.5 mL Inactive 09/21/2013 [facility] Saline Flush 0.9% 5 mL, Route: IVP, Drug Form: INJ, Dosing Weight 55.909, kg, PRN, PRN Line Flush, Start date: 09/21/13 18:17:00, Duration: 24 hr, Stop date: 09/22/13 18:16:00Notes: (Same as: BD Posiflush) Inactive 09/21/2013 [facility] Morphine 4 mg, 1 mL, Route: IVP, Drug form: INJ, ONCE, Dosing Weight 55.909, kg, Priority: STAT, Start date: 09/12/13 20:33:00, Stop date: 09/12/13 20:33:00Notes: (Same as:MORPhine Sulfate) Inactive 09/13/2013 [facility] Phenergan 25 mg, 50 mL, Route: IVPB, Drug form: SOLN, ONCE, Dosing Weight 55.909, kg, Priority: STAT, Start date: 09/12/13 20:33:00, Stop date: 09/12/13 20:33:00 Inactive 09/13/2013 [facility] GI cocktail 30 mL, Route: PO, Dosing Weight 55.909, kg, ONCE, STAT, Start date: 09/12/13 19:32:00, Stop date: 09/12/13 19:32:00 Inactive 09/13/2013 [facility] Morphine 6 mg, Route: IVP, Drug form: INJ, ONCE, Dosing Weight 55.909, kg, Priority: STAT, Start date: 09/12/13 19:32:00, Stop date: 09/12/13 19:32:00 Inactive 09/13/2013 [facility] Benadryl 25 mg, Route: IVP, ONCE, Dosing Weight 55.909, kg, Priority: STAT, Start date: 09/12/13 19:31:00, Stop date: 09/12/13 19:31:00 Inactive 09/13/2013 [facility] Compazine 10 mg, Route: IV, ONCE, Dosing Weight 55.909, kg, Start date: 09/12/13 19:31:00, Stop date: 09/12/13 19:31:00 Inactive 09/13/2013 [facility] Sodium Chloride 0.154 MEQ/ML Injectable Solution 1,000 mL, 1,000 ml/hr, Infuse Over: 1 hr, Route: IV, ONCE, Priority: STAT, Dosing Weight 55.909 kg, Start date: 09/12/13 19:31:00, Duration: 1 doses or times, Stop date: 09/12/13 19:31:00 Inactive 09/13/2013 [facility] Hydralazine 15 mg, 0.75 mL, Route: IVP, Drug form: INJ, Q4H, Dosing Weight 56.108, kg, PRN Elevated BP, Start date: 09/08/13 11:13:00, Duration: 30 day, Stop date: 10/08/13 11:12:00, SBP > 165 or DBP > 95 mmHgNotes: (Same as: Apresoline) Push over 5 minutes Inactive 09/08/2013 [facility] erythromycin 250 mg oral tablet 250 mg=1 tab, PO, Q6H, # 28 tab, 0 Refill(s) Active 09/08/2013 [facility] Acetaminophen 300 MG / Codeine Phosphate 30 MG Oral Tablet [Tylenol with Codeine #3] 1 tab, PO, Q6H, Pain, # 30 tab, 0 Refill(s) Active 09/08/2013 [facility] ALPRAZOLam 0.25 mg oral tablet, disintegrating 0.25 mg=1 tab, PO, Q8H, Anxiety, # 30 tab, 0 Refill(s) Active 09/08/2013 [facility] Metoclopramide 10 MG Oral Tablet [Reglan] 10 mg=1 tab, PO, TID, # 40 tab, 0 Refill(s) Active 09/08/2013 [facility] Acetaminophen 300 MG / Codeine Phosphate 30 MG Oral Tablet [Tylenol with Codeine #3] 1 tab, Route: PO, Drug Form: TAB, Dosing Weight 56.108, kg, Q6H, PRN Pain, Start date: 09/08/13 10:50:00, Duration: 30 day, Stop date: 10/08/13 10:49:00Notes: Do not exceed 4gm/day of acetaminophen. (Same as: Tylenol with Codeine # 3) Inactive 09/08/2013 [facility] ciprofloxacin 500 mg oral tablet 500 mg=1 tab, PO, Q12H, # 20 tab, 0 Refill(s) Active 09/07/2013 [facility] Docusate Sodium 100 MG Oral Capsule 100 mg=1 cap, PO, BID, Constipation, # 28 cap, 0 Refill(s) Active 09/07/2013 [facility] oxybutynin 5 mg oral tablet 5 mg=1 tab, PO, TID, # 90 tab, 0 Refill(s) Active 09/07/2013 [facility] Naloxone 0.1 mg, 0.25 mL, Route: IVP, Drug form: SOLN, Q2MIN, Dosing Weight 56.108, kg, PRN Narcotic Reversal, Start date: 09/04/13 16:54:00, Duration: 4 doses or times, Stop date: 09/05/13 0:00:00Notes: Same as: Narcan No Longer Active 09/04/2013 [facility] Flumazenil 0.2 mg, 2 mL, Route: IVP, Drug form: INJ, PRN, Dosing Weight 56.108, kg, PRN Other -See Comment, Start date: 09/04/13 16:54:00, Duration: 1 doses or times, Stop date: 09/05/13 0:00:00Notes: (Same as: Romazicon) No Longer Active 09/04/2013 [facility] Hydralazine 20 mg, 1 mL, Route: IV, Drug form: INJ, Q6H, Dosing Weight 59.091, kg, PRN Hypertension, Start date: 09/03/13 17:31:00, Duration: 30 day, Stop date: 10/03/13 17:30:00Notes: (Same as: Apresoline) Push over 5 minutes No Longer Active 09/03/2013 [facility] Reglan 10 mg, 2 mL, Route: IVP, Drug form: INJ, Q6H-02, Dosing Weight 59.091, kg, Start date: 09/03/13 15:00:00, Duration: 30 day, Stop date: 10/03/13 14:00:00Notes: (Same as: Reglan) No Longer Active 09/03/2013 [facility] Claritin 10 mg, 1 tab, Route: PO, Drug form: TAB, Daily, Dosing Weight 56.108, kg, Start date: 09/03/13 9:00:00, Duration: 30 day, Stop date: 10/02/13 9:00:00Notes: 1 hr before meals (Same as: Claritin) No Longer Active 09/03/2013 [facility] Digoxin 0.25 MG Oral Tablet 250 microgram, 1 tab, Route: PO, Drug form: TAB, Daily, Dosing Weight 56.108, kg, Start date: 09/03/13 9:00:00, Duration: 30 day, Stop date: 10/02/13 9:00:00Notes: Take on an Empty Stomach (Same as: Lanoxin) No Longer Active 09/03/2013 [facility] metoprolol tartrate 50 mg, 1 tab, Route: PO, Drug form: TAB, Q12H, Dosing Weight 56.108, kg, Start date: 09/02/13 21:00:00, Duration: 30 day, Stop date: 10/02/13 9:00:00Notes: (Same as: Lopressor) No Longer Active 09/03/2013 [facility] zolpidem 5 mg, 1 tab, Route: PO, Drug form: TAB, Bedtime, Dosing Weight 56.108, kg, Start date: 09/02/13 21:00:00, Duration: 30 day, Stop date: 10/01/13 21:00:00Notes: (Same As: Ambien) No Longer Active 09/03/2013 [facility] Ciprofloxacin 400 mg, 200 mL, Route: IVPB, Drug form: INJ, [id number], Dosing Weight 56.108, kg, Start date: 09/02/13 21:00:00, Duration: 30 day, Stop date: 10/02/13 9:00:00Notes: Do not refrigerate No Longer Active 09/03/2013 [facility] Pepcid 20 mg, 1 tab, Route: PO, Drug form: TAB, Bedtime, Dosing Weight 56.108, kg, Start date: 09/02/13 21:00:00, Duration: 30 day, Stop date: 10/01/13 21:00:00Notes: (Same as: Pepcid) No Longer Active 09/03/2013 [facility] Enalapril 20 mg, 2 tab, Route: PO, Drug form: TAB, BID, Dosing Weight 56.108, kg, Start date: 09/02/13 21:00:00, Duration: 30 day, Stop date: 10/02/13 9:00:00Notes: (Same as: Vasotec) No Longer Active 09/03/2013 [facility] Clonidine Hydrochloride 0.2 MG Oral Tablet 0.2 mg, 1 tab, Route: PO, Drug form: TAB, BID, Dosing Weight 56.108, kg, Start date: 09/02/13 21:00:00, Duration: 30 day, Stop date: 10/02/13 9:00:00Notes: (Same As: Catapres) No Longer Active 09/03/2013 [facility] Phenergan 25 mg, 50 mL, Route: IVP Central, Drug form: SOLN, ONCE, Dosing Weight 56.108, kg, PRN Nausea & Vomiting, Start date: 09/02/13 18:53:00, Stop date: 10/02/13 18:52:00 Inactive 09/02/2013 [facility] Robaxin 500 mg, 1 tab, Route: PO, Drug form: TAB, BID, Dosing Weight 56.108, kg, Start date: 09/02/13 17:00:00, Duration: 30 day, Stop date: 10/02/13 9:00:00Notes: (Same as:Robaxin) No Longer Active 09/02/2013 [facility] Ativan 0.5 mg, 1 tab, Route: PO, Drug form: TAB, TID, Dosing Weight 56.108, kg, Start date: 09/02/13 17:00:00, Duration: 30 day, Stop date: 10/02/13 13:00:00Notes: (Same as: Ativan) No Longer Active 09/02/2013 [facility] Promethazine 25 mg, 1 tab, Route: PO, Drug form: TAB, TID, Dosing Weight 56.108, kg, Start date: 09/02/13 17:00:00, Duration: 30 day, Stop date: 10/02/13 13:00:00Notes: (Same as: Phenergan) No Longer Active 09/02/2013 [facility] Lidocaine Hydrochloride 10 MG/ML Injectable Solution 5 mL, Route: INTRADERM, Drug Form: INJ, Dosing Weight 56.108, kg, ONCALL, Start date: 09/02/13 17:00:00, Duration: 1 day, Stop date: 09/03/13 16:59:00Notes: (Same as: Xylocaine) No Longer Active 09/02/2013 [facility] ferrous sulfate 325 mg, 1 tab, Route: PO, Drug form: TAB, BID, Dosing Weight 56.108, kg, Start date: 09/02/13 17:00:00, Duration: 30 day, Stop date: 10/02/13 9:00:00Notes: Give with food. iron elemental [id number] as ferrous sulfate Dose=___mg elemental iron No Longer Active 09/02/2013 [facility] Benadryl 50 mg, 2 tab, Route: PO, Drug form: TAB, QID, Dosing Weight 56.108, kg, Start date: 09/02/13 17:00:00, Duration: 30 day, Stop date: 10/02/13 13:00:00 No Longer Active 09/02/2013 [facility] Glucagon 1 mg, Route: IM, Drug form: PDR/INJ, PRN, Dosing Weight 56.108, kg, PRN Blood Glucose Results, Start date: 09/02/13 16:51:00, Duration: 30 day, Stop date: 10/02/13 16:50:00 No Longer Active 09/02/2013 [facility] Dextrose 50% Syringe 12.5 gm, 25 mL, Route: IVP, Drug Form: INJ, Dosing Weight 56.108, kg, PRN, PRN Blood Glucose Results, Start date: 09/02/13 16:51:00, Duration: 30 day, Stop date: 10/02/13 16:50:00 No Longer Active 09/02/2013 [facility] Insulin, Aspart, Human 4 unit, 0.04 mL, Route: SUB-Q, Drug form: SOLN, Sliding Scale, Dosing Weight 56.108, kg, PRN Blood Glucose Results, Start date: 09/02/13 16:51:00, Duration: 30 day, Stop date: 10/02/13 16:50:00Notes: Roll in palms of hands gently; Do not shake vigorously. (Same as: NovoLOG) "single patient use only" Stable for 28 days at room temperature. Expires in days from Date No Longer Active 09/02/2013 [facility] Protonix 40 mg, 1 tab, Route: PO, Drug form: ECTAB, Before Dinner, Dosing Weight 56.108, kg, Start date: 09/02/13 16:30:00, Duration: 30 day, Stop date: 10/01/13 16:30:00Notes: Tablet should not be chewed or crushed. (Same as: Protonix) No Longer Active 09/02/2013 [facility] Carafate 1 gm, 1 tab, Route: PO, Drug form: TAB, BID-Before Meals, Dosing Weight 56.108, kg, Start date: 09/02/13 16:30:00, Duration: 30 day, Stop date: 10/02/13 7:30:00Notes: May interfere w/enteral feeds - Take 1 hr before or 2 hr after antacids, dairy pdt, meals & minerals - On empty stomach. (Same As: Carafate) No Longer Active 09/02/2013 [facility] Morphine 30 mg, 1 tab, Route: PO, Drug form: TAB, Q4H, Dosing Weight 56.108, kg, PRN For Pain, Start date: 09/02/13 15:59:00, Duration: 30 day, Stop date: 10/02/13 15:58:00 No Longer Active 09/02/2013 [facility] Diazepam 10 mg, 2 tab, Route: PO, Drug form: TAB, BID, Dosing Weight 56.108, kg, PRN as needed for anxiety, Start date: 09/02/13 15:58:00, Duration: 30 day, Stop date: 10/02/13 15:57:00Notes: (Same as: Valium) No Longer Active 09/02/2013 [facility] Cipro 500 mg, 1 tab, Route: PO, Drug form: TAB, [id number], Start date: 09/02/13 14:00:00, Duration: 30 day, Stop date: 10/02/13 2:00:00Notes: May interfere w/enteral feedings - Take 1 hr before or [address] antacids, dairy pdt & minerals. On empty stomach. Inactive 09/02/2013 [facility] oxybutynin 5 mg, 1 tab, Route: PO, Drug form: TAB, TID, Dosing Weight 56.108, kg, Start date: 09/02/13 13:30:00, Duration: 30 day, Stop date: 10/02/13 6:00:00Notes: Same as: Ditropan) No Longer Active 09/02/2013 [facility] Morphine 4 mg, 1 mL, Route: IVP, Drug form: INJ, Q3H, Dosing Weight 59.091, kg, PRN Pain, Start date: 09/02/13 12:50:00, Duration: 30 day, Stop date: 10/02/13 12:49:00Notes: (Same as:MORPhine Sulfate) No Longer Active 09/02/2013 [facility] Hydralazine 20 mg, 1 mL, Route: IV, Drug form: INJ, Q6H, Dosing Weight 59.091, kg, Start date: 09/02/13 12:00:00, Duration: 30 day, Stop date: 10/02/13 6:00:00Notes: (Same as: Apresoline) Push over 5 minutes No Longer Active 09/02/2013 [facility] Clonidine Hydrochloride 0.2 MG Oral Tablet 0.2 mg, PO, TID, 0 Refill(s) Active 09/02/2013 [facility] promethazine 25 mg oral tablet 25 mg=1 tab, PO, TID, 0 Refill(s) Active 09/02/2013 [facility] Lorazepam 0.5 MG Oral Tablet [Ativan] 0.5 mg=1 tab, PO, TID, 0 Refill(s) Active 09/02/2013 [facility] Lantus 10 unit, SUB-Q, Bedtime, 0 Refill(s) Active 09/02/2013 [facility] zolpidem 10 mg oral tablet 10 mg=1 tab, PO, Bedtime, 0 Refill(s) Active 09/02/2013 [facility] morphine 30 mg oral tablet 30 mg=1 tab, PO, Q4H, as needed for pain, 0 Refill(s) Active 09/02/2013 [facility] enalapril 20 mg oral tablet 20 mg=1 tab, PO, BID, 0 Refill(s) Active 09/02/2013 [facility] Protonix 40 mg, PO, Daily, 0 Refill(s) Active 09/02/2013 [facility] Claritin 10 mg, PO, Daily, 0 Refill(s) Active 09/02/2013 [facility] Enoxaparin 40 mg, 0.4 mL, Route: SUB-Q, Drug form: INJ, [id number], Dosing Weight 59.091, kg, Start date: 09/02/13 9:00:00, Duration: 30 day, Stop date: 10/01/13 9:00:00Notes: (Same as: Lovenox) No Longer Active 09/02/2013 [facility] Ciprofloxacin 500 mg, Route: PO, [id number], Dosing Weight 59.091, kg, (For CrCl > /=30 ml/min), Start date: 09/02/13 9:00:00, Duration: 30 day, Stop date: 10/01/13 21:00:00 Inactive 09/02/2013 [facility] normal saline 0.9% IV 1000 mL 1,000 mL, Rate: 150 ml/hr, Infuse over: 6.7 hr, Route: IV, Dosing Weight 59.091 kg, Total Volume: 1,000, Priority: STAT, Start date: 09/02/13 8:35:00, Duration: 1 doses or times, Stop date: 09/02/13 15:16:00 Inactive 09/02/2013 [facility] Alprazolam 0.25 mg, 1 tab, Route: PO, Drug form: TAB, Q8H, Dosing Weight 59.091, kg, PRN Anxiety, Start date: 09/02/13 8:32:00, Duration: 30 day, Stop date: 10/02/13 8:31:00Notes: With food or milk (Same as: Xanax) No Longer Active 09/02/2013 [facility] Promethazine 12.5 mg, 1 supp, Route: NH, Drug form: SUPP, Q6H, Dosing Weight 59.091, kg, PRN Nausea & Vomiting, Start date: 09/02/13 8:32:00, Duration: 30 day, Stop date: 10/02/13 8:31:00Notes: (Same as: Phenerga n) No Longer Active 09/02/2013 [facility] Reglan 10 mg, 2 mL, Route: IVP, Drug form: INJ, Q6H, Dosing Weight 59.091, kg, PRN Nausea & Vomiting, Start date: 09/02/13 8:32:00, Duration: 30 day, Stop date: 10/02/13 8:31:00Notes: (Same as: Reglan) No Longer Active 09/02/2013 [facility] 1/2NS + KCL 20mEq/L 1000ml (Premix) 1,000 mL 1,000 mL, Rate: 100 ml/hr, Infuse over: 10 hr, Route: IV, Dosing Weight 59.091 kg, Total Volume: 1,000, Start date: 09/02/13 8:30:00, Stop date: 10/02/13 8:29:00 No Longer Active 09/02/2013 [facility] Saline Flush 0.9% 5 ml, Route: IVP, Drug Form: INJ, Dosing Weight 59.091, kg, PRN, PRN Line Flush, Start date: 09/02/13 8:30:00, Duration: 30 day, Stop date: 10/02/13 8:29:00Notes: (Same as: BD Posiflush) No Longer Active 09/02/2013 [facility] Sodium Chloride 0.154 MEQ/ML Injectable Solution 1,000 mL, Rate: 125 ml/hr, Infuse over: 8 hr, Route: IV, Dosing Weight 59.091 kg, Total Volume: 1,000, Start date: 09/02/13 8:30:00, Duration: 30 day, Stop date: 10/02/13 8:29:00 Inactive 09/02/2013 [facility] Docusate 100 mg, 1 cap, Route: PO, Drug form: CAP, BID, Dosing Weight 59.091, kg, PRN Constipation, Start date: 09/02/13 8:30:00, Duration: 30 day, Stop date: 10/02/13 8:29:00Notes: (Same as: Colace) (Do Not Crush) No Longer Active 09/02/2013 [facility] Acetaminophen 650 mg, 20.3 mL, Route: PO, Drug form: LIQ, Q4H, Dosing Weight 59.091, kg, PRN Pain 1-3/Temp > 100.4 F, Start date: 09/02/13 8:30:00, Duration: 30 day, Stop date: 10/02/13 8:29:00Notes: Max aceta [id number]/day (4 gm/day). (Same as: Tylenol) No Longer Active 09/02/2013 [facility] Morphine 2 mg, 1 mL, Route: IVP, Drug form: INJ, Q3H, Dosing Weight 59.091, kg, PRN Pain Score 4-6, Start date: 09/02/13 8:30:00, Duration: 30 day, Stop date: 10/02/13 8:29:00Notes: (Same as:MORPhine Sulfate) Inactive 09/02/2013 [facility] Phenergan Route: IVPB, ONCE, Dosing Weight 59.091, kg, Start date: 09/02/13 6:38:00, Stop date: 09/02/13 6:38:00 Inactive 09/02/2013 [facility] Morphine 4 mg, 1 mL, Route: IVP, Drug form: INJ, ONCE, Dosing Weight 59.091, kg, Start date: 09/02/13 6:27:00, Stop date: 09/02/13 6:27:00Notes: (Same as:MORPhine Sulfate) Inactive 09/02/2013 [facility] Hydralazine 10 mg, Route: IVP, ONCE, Dosing Weight 59.091, kg, Priority: STAT, Start date: 09/02/13 5:03:00, Stop date: 09/02/13 5:03:00 Inactive 09/02/2013 [facility] Benadryl 12.5 mg, 0.25 mL, Route: IVP, Drug form: INJ, ONCE, Dosing Weight 59.091, kg, Priority: STAT, Start date: 09/02/13 3:44:00, Stop date: 09/02/13 3:44:00Notes: (Same as: Benadryl) Inactive 09/02/2013 [facility] Phenergan 12.5 mg, Route: IM, ONCE, Dosing Weight 59.091, kg, Priority: STAT, Start date: 09/02/13 3:44:00, Stop date: 09/02/13 3:44:00 Inactive 09/02/2013 [facility] Morphine 4 mg, Route: IVP, Drug form: INJ, ONCE, Dosing Weight 59.091, kg, Priority: STAT, Start date: 09/02/13 3:44:00, Stop date: 09/02/13 3:44:00 Inactive 09/02/2013 [facility] Sodium Chloride 0.154 MEQ/ML Injectable Solution 1,000 mL, 1,000 ml/hr, Infuse Over: 1 hr, Route: IV, 1,000, Drug form: INJ, ONCE, Priority: STAT, Dosing Weight 59.091 kg, Start date: 09/02/13 3:32:00, Duration: 1 doses or times, Stop date: 09/02/13 3:32:00 Inactive 09/02/2013 [facility] GI cocktail 30 mL, Route: PO, Dosing Weight 59.091, kg, ONCE, STAT, Start date: 09/02/13 2:28:00, Stop date: 09/02/13 2:28:00 Inactive 09/02/2013 [facility] Cipro 400 mg, Route: IVPB, ONCE, Dosing Weight 59.091, kg, Priority: STAT, Start date: 09/02/13 2:10:00, Stop date: 09/02/13 2:10:00 Inactive 09/02/2013 [facility] Morphine 2 mg, Route: IVP, Drug form: INJ, ONCE, Dosing Weight 59.091, kg, Priority: STAT, Start date: 09/02/13 2:04:00, Stop date: 09/02/13 2:04:00 Inactive 09/02/2013 [facility] Clonidine 0.1 mg, Route: PO, Drug form: TAB, ONCE, Dosing Weight 59.091, kg, Priority: STAT, Start date: 09/02/13 2:01:00, Stop date: 09/02/13 2:01:00 Inactive 09/02/2013 [facility] Phenergan 12.5 mg, 0.5 mL, Route: IM, Drug form: INJ, ONCE, Dosing Weight 59.091, kg, Priority: STAT, Start date: 09/02/13 1:32:00, Stop date: 09/02/13 1:32:00Notes: Do not give IV push. (Same as: Phenergan) Inactive 09/02/2013 [facility] Omnipaque 240 50 mL, Route: PO, Drug Form: SOLN, Dosing Weight 59.091, kg, ONCE, Start date: 09/02/13 1:06:00, Stop date: 09/02/13 1:06:00Notes: (Same as:Omnipaque 240) 12,000mg/50ml Inactive 09/02/2013 [facility] Benadryl 12.5 mg, 0.25 mL, Route: IVP, Drug form: INJ, ONCE, Dosing Weight 59.091, kg, Priority: STAT, Start date: 09/02/13 0:41:00, Stop date: 09/02/13 0:41:00Notes: (Same as: Benadryl) Inactive 09/02/2013 [facility] Phenergan 25 mg, 50 mL, Route: IVPB, Drug form: SOLN, ONCE, Dosing Weight 59.091, kg, Priority: STAT, Start date: 09/02/13 0:41:00, Stop date: 09/02/13 0:41:00 Inactive 09/02/2013 [facility] Morphine 4 mg, 1 mL, Route: IVP, Drug form: INJ, ONCE, Dosing Weight 59.091, kg, Priority: STAT, Start date: 09/02/13 0:41:00, Stop date: 09/02/13 0:41:00Notes: (Same as:MORPhine Sulfate) Inactive 09/02/2013 [facility] Sodium Chloride 0.154 MEQ/ML Injectable Solution 1,000 mL, 1,000 ml/hr, Infuse Over: 1 hr, Route: IV, 1,000, Drug form: INJ, ONCE, Priority: STAT, Dosing Weight 59.091 kg, Start date: 09/01/13 23:58:00, Duration: 1 doses or times, Stop date: 09/01/13 23:58:00 No Longer Active 09/02/2013 [facility] Saline Flush 0.9% 5 mL, Route: IVP, Drug Form: INJ, Dosing Weight 59.091, kg, PRN, PRN Line Flush, Start date: 09/01/13 23:58:00, Duration: 24 hr, Stop date: 09/02/13 23:57:00Notes: (Same as: BD Posiflush) No Longer Active 09/02/2013 [facility] Sulfamethoxazole 800 MG / Trimethoprim 160 MG Oral Tablet [Bactrim] 1 tab, PO, BID, # 14 tab, 0 Refill(s) Active 08/31/[address] [facility] 24 HR Metoprolol Tartrate 100 MG Extended Release Tablet [Toprol] 100 mg=1 tab, PO, Daily, # 30 tab, 0 Refill(s) Active 08/31/[address] [facility] Clonidine Hydrochloride 0.1 MG Oral Tablet 0.1 mg=1 tab, PO, TID, # 90 tab, 0 Refill(s) Active 08/31/[address] [facility] levothyroxine 100 mcg (0.1 mg) oral tablet 100 microgram=1 tab, PO, Daily, # 30 tab, 0 Refill(s) Active 08/31/[address] [facility] dicyclomine 10 mg oral capsule 10 mg=1 cap, PO, TID, 0 Refill(s) Active 08/31/[address] [facility] Benadryl 25 mg, PO, Q6H, as needed for itching, 0 Refill(s) Active 08/31/[address] [facility] methocarbamol 500 mg oral tablet 1,000 mg=2 tab, PO, BID, # 80 tab, 0 Refill(s) Active 08/31/[address] [facility] Lantus See Instructions, 40 SC Q AM and 10 U SC bedtime, 0 Refill(s)Special Instructions: 40 SC Q AM and 10 U SC bedtime Active 08/31/[address] [facility] Morphine Sulfate 30 MG Extended Release Tablet [MS Contin] 30 mg=1 tab, PO, Q12H, 0 Refill(s) Active 08/31/[address] [facility] enalapril 20 mg oral tablet 20 mg=1 tab, PO, BID, 0 Refill(s) Active 08/31/[address] [facility] 168 HR Clonidine 0.0125 MG/HR Transdermal Patch [[id number]] 1 patch, TOP, Q7D, # 4 patch, 0 Refill(s) Inactive 08/31/[address] [facility] LORazepam 1 mg oral tablet 1 mg=1 tab, PO, TID, Anxiety, # 20 tab, 0 Refill(s) Active 08/31/[address] [facility] promethazine 25 mg oral tablet 25 mg=1 tab, PO, Q6H, as needed for nausea/vomiting, 0 Refill(s) Inactive 08/31/[address] [facility] Saline Flush 0.9% 10 mL, Route: IVP, Drug Form: INJ, Dosing Weight 59.091, kg, Q8H, Start date: 08/31/13 16:00:00, Duration: 30 day, Stop date: 09/30/13 8:00:00Notes: (Same as: BD Posiflush) No Longer Active 08/31/[address] [facility] Morphine 4 mg, 1 mL, Route: IVP, Drug form: INJ, Q6H, Dosing Weight 59.091, kg, PRN as needed for pain, Start date: 08/31/13 15:18:00, Duration: 30 day, Stop date: 09/30/13 15:17:00Notes: (Same as:MORPhine Sulfate) No Longer Active 08/31/[address] [facility] Saline Flush 0.9% 10 mL, Route: IVP, Drug Form: INJ, Dosing Weight 59.091, kg, PRN, PRN Line Flush, Start date: 08/31/13 12:24:00, Duration: 30 day, Stop date: 09/30/13 12:23:00Notes: (Same as: BD Posiflush) No Longer Active 08/31/[address] [facility] metoprolol tartrate 50 mg, 1 tab, Route: PO, Drug form: TAB, Q8H, Dosing Weight 59.091, kg, Start date: 08/31/13 8:00:00, Duration: 30 day, Stop date: 09/30/13 0:00:00Notes: (Same as: Lopressor) No Longer Active 08/31/[address] [facility] Ceftriaxone 1 gm, Route: IVPB, Drug form: PDR/INJ, [id number], Dosing Weight 59.091, kg, Start date: 08/31/13 8:00:00, Duration: 30 day, Stop date: 09/29/13 8:00:00 No Longer Active 08/31/[address] [facility] hydrocortisone sodium succinate INJ (for IV use) 25 mg, 0.5 mL, Route: IVP, Drug form: PDR/INJ, Q8H, Dosing Weight 59.091, kg, Start date: 08/30/13 22:00:00, Duration: 3 doses or times, Stop date: 08/31/13 14:00:00Notes: (Same as: Solu-CORTEF) No Longer Active 08/31/[address] [facility] Clonidine 0.1 mg, 1 tab, Route: PO, Drug form: TAB, TID, Dosing Weight 59.091, kg, Start date: 08/30/13 17:00:00, Duration: 30 day, Stop date: 09/29/13 13:00:00Notes: (Same As: Catapres) No Longer Active 08/30/[address] [facility] Buspirone 7.5 mg, 1.5 tab, Route: PO, Drug form: TAB, BID, Dosing Weight 59.091, kg, Start date: 08/30/13 17:00:00, Duration: 30 day, Stop date: 09/29/13 9:00:00Notes: (Same As: BuSpar) No Longer Active 08/30/[address] [facility] hydrocortisone sodium succinate INJ (for IV use) 50 mg, 1 mL, Route: IVP, Drug form: PDR/INJ, Q8H, Dosing Weight 59.091, kg, Start date: 08/29/13 22:00:00, Duration: 3 doses or times, Stop date: 08/30/13 14:00:00Notes: (Same as: Solu-CORTEF) Inactive 08/30/[address] [facility] Insulin Glargine 45 unit, 0.45 mL, Route: SUB-Q, Drug form: INJ, QPM, Dosing Weight 59.091, kg, Start date: 08/29/13 17:00:00, Stop date: 09/27/13 17:00:00Notes: Same as Marlene Herndon PEN "single patient use only" Stable for 28 days at room temperature. Expires in days from Date No Longer Active 08/29/[address] [facility] Morphine 4 mg, 1 mL, Route: IV, Drug form: INJ, Q4H, Dosing Weight 59.091, kg, PRN Back Pain, Start date: 08/29/13 11:21:00, Duration: 30 day, Stop date: 09/28/13 11:20:00Notes: (Same as:MORPhine Sulfate) No Longer Active 08/29/[address] [facility] Benadryl 25 mg, 0.5 mL, Route: IVP, Drug form: INJ, ONCE, Dosing Weight 59.091, kg, PRN Itching, Start date: 08/29/13 11:20:00Notes: (Same as: Benadryl) Inactive 08/29/[address] [facility] Insulin, Aspart, Human 10 unit, Route: SUB-Q, TID-Before Meals, Dosing Weight 59.091, kg, PRN Blood Glucose Results, Start date: 08/29/13 11:17:00, Duration: 30 day, Stop date: 09/28/13 11:16:00 Inactive 08/29/[address] [facility] Dextrose 50% Syringe 50 mL, Route: IVP, Dosing Weight 59.091, kg, PRN, PRN Blood Glucose Results, Start date: 08/29/13 11:17:00, Duration: 30 day, Stop date: 09/28/13 11:16:00 Inactive 08/29/[address] [facility] Glucagon 1 mg, Route: IM, PRN, Dosing Weight 59.091, kg, PRN Blood Glucose Results, Start date: 08/29/13 11:17:00, Duration: 30 day, Stop date: 09/28/13 11:16:00 Inactive 08/29/[address] [facility] metoprolol tartrate 50 mg, 1 tab, Route: PO, Drug form: TAB, Q12H, Dosing Weight 59.091, kg, Start date: 08/29/13 9:00:00, Duration: 30 day, Stop date: 09/27/13 21:00:00Notes: (Same as: Lopressor) No Longer Active 08/29/[address] [facility] Protonix 20 mg, Route: PO, Drug form: ECTAB, BID, Dosing Weight 59.091, kg, Start date: 08/29/13 9:00:00, Duration: 30 day, Stop date: 09/27/13 17:00:00 Inactive 08/29/[address] [facility] ferrous sulfate 325 mg, 1 tab, Route: PO, Drug form: ECTAB, BID, Dosing Weight 59.091, kg, Start date: 08/29/13 9:00:00, Duration: 30 day, Stop date: 09/27/13 17:00:00Notes: Give with food. "Do Not Crush" No Longer Active 08/29/[address] [facility] Digoxin 0.25 MG Oral Tablet 0.25 mg, 1 tab, Route: PO, Drug form: TAB, Daily, Dosing Weight 59.091, kg, Start date: 08/29/13 9:00:00, Duration: 30 day, Stop date: 09/27/13 9:00:00Notes: Take on an Empty Stomach (Same as: Lanoxin) No Longer Active 08/29/[address] [facility] Bentyl 10 mg, 1 cap, Route: PO, Drug form: CAP, BID, Dosing Weight 59.091, kg, Start date: 08/29/13 9:00:00, Duration: 30 day, Stop date: 09/27/13 17:00:00Notes: (Same as: Bentyl) No Longer Active 08/29/[address] [facility] Famotidine 20 mg, 2 mL, Route: IVP, Drug form: INJ, Q12H, Dosing Weight 59.091, kg, Start date: 08/29/13 9:00:00, Duration: 30 day, Stop date: 09/27/13 21:00:00Notes: (Same as: Pepcid) Can be dilute in 5-10cc NS IVP: Slow IV push over at least 2 minutes. Inactive 08/29/[address] [facility] Saline Flush 0.9% 5 ml, Route: MISC, Drug Form: INJ, Dosing Weight 59.091, kg, Q12H, Start date: 08/29/13 9:00:00, Duration: 30 day, Stop date: 09/27/13 21:00:00Notes: (Same as: BD Posiflush) No Longer Active 08/29/[address] [facility] Docusate 100 mg, 1 cap, Route: PO, Drug form: CAP, Q12H, Dosing Weight 59.091, kg, Start date: 08/29/13 9:00:00, Duration: 30 day, Stop date: 09/27/13 21:00:00Notes: (Same as: Colace) (Do Not Crush) No Longer Active 08/29/[address] [facility] sennosides, FCI 8.6 mg, 1 tab, Route: PO, Drug Form: TAB, Dosing Weight 59.091, kg, Q12H, Start date: 08/29/13 9:00:00, Duration: 30 day, Stop date: 09/27/13 21:00:00Notes: (Same as: Senokot) No Longer Active 08/29/[address] [facility] Metoclopramide 10 MG Oral Tablet [Reglan] 10 mg, 1 tab, Route: PO, Drug form: TAB, QID-Before Meals, Dosing Weight 59.091, kg, Start date: 08/29/13 7:30:00, Duration: 30 day, Stop date: 09/27/13 21:00:00Notes: (Same as: Reglan) Take 30 min before meals No Longer Active 08/29/[address] [facility] Insulin, Aspart, Human 3 unit, 0.03 mL, Route: SUB-Q, Drug form: SOLN, TID-Before Meals, Dosing Weight 59.091, kg, Start date: 08/29/13 7:30:00, Duration: 30 day, Stop date: 09/27/13 16:30:00Notes: Roll in palms of hands gently; Do not shake vigorously. (Same as: NovoLOG) "single patient use only" Stable for 28 days at room temperature. Expires in days from Date No Longer Active 08/29/[address] [facility] 168 HR Clonidine 0.0125 MG/HR Transdermal Patch 1 patch, Route: TOP, Drug Form: ERFILM, Dosing Weight 59.091, kg, Q7D, NOW, Start date: 08/29/13 7:13:00, Duration: 30 day, Stop date: 09/26/13 9:00:00Notes: Patch delivers 0.3 mg/24 hours; Patch is applied weekly. [id number]. "Remove old patch before application of new patch" No Longer Active 08/29/[address] [facility] Thyroxine 100 microgram, 1 tab, Route: PO, Drug form: TAB, [id number], Dosing Weight 59.091, kg, Start date: 08/29/13 6:30:00, Duration: 30 day, Stop date: 09/27/13 6:30:00Notes: Take 1 hour before or 2 hours after meal; Enteral feeds may interefere with the absorption of this medication. (Same as:Levothroid, Synthroid) No Longer Active 08/29/[address] [facility] Merrem 500 mg, Route: IVPB, Drug form: PDR/INJ, [id number], Dosing Weight 59.091, kg, CrCL=10 -25 ml/min, Extended infusion, infuse over 3 hours, Start date: 08/29/13 2:00:00, Duration: 30 day, Stop date: 09/27/13 14:00:00Notes: Same as Merrem.. No Longer Active 08/29/[address] [facility] NPH Insulin, Pork 15 unit, 0.15 mL, Route: SUB-Q, Drug form: INJ, Q8H, Dosing Weight 59.091, kg, Priority: NOW, Start date: 08/29/13 1:25:00, Duration: 30 day, Stop date: 09/28/13 0:00:00Notes: Roll in palms of hands gently; Do not shake vigorously. (Same as: Humulin N) (Restricted to patients requiring a dose > 60 units) Stable for 28 days at room temperature Expires in days from Date Inactive 08/29/[address] [facility] Sodium Chloride 0.154 MEQ/ML Injectable Solution 500 mL, 500 ml/hr, Infuse Over: 1 hr, Route: IV, 500, Drug form: INJ, ONCE, Priority: STAT, Dosing Weight 59.091 kg, Start date: 08/29/13 1:25:00, Duration: 1 doses or times, Stop date: 08/29/13 1:25:00 Inactive 08/29/[address] [facility] Robaxin 500 mg, 1 tab, Route: PO, Drug form: TAB, BID, Dosing Weight 59.091, kg, PRN as needed for pain, Start date: 08/29/13 1:21:00, Duration: 30 day, Stop date: 09/28/13 1:20:00Notes: (Same as:Robaxin) No Longer Active 08/29/[address] [facility] Loratadine 10 mg, 1 tab, Route: PO, Drug form: TAB, Daily, Dosing Weight 59.091, kg, PRN as needed for allergy symptoms, Start date: 08/29/13 1:21:00, Duration: 30 day, Stop date: 09/28/13 1:20:00Notes: 1 hr be fore meals (Same as: Claritin) No Longer Active 08/29/[address] [facility] Ambien 10 mg, 2 tab, Route: PO, Drug form: TAB, Bedtime, Dosing Weight 59.091, kg, PRN as needed for sleep, Start date: 08/29/13 1:19:00, Duration: 30 day, Stop date: 09/28/13 1:18:00Notes: (Same As: Ambien) No Longer Active 08/29/[address] [facility] Tylenol 650 mg, 2 tab, Route: PO, Drug form: TAB, Q6H, Dosing Weight 59.091, kg, PRN Pain Score 1-5, Start date: 08/29/13 1:17:00, Duration: 30 day, Stop date: 09/28/13 1:16:00Notes: Do not exceed 4 gm/day. (Same as: Tylenol) No Longer Active 08/29/[address] [facility] Valium 2 mg, 1 tab, Route: PO, Drug form: TAB, ONCE, Dosing Weight 59.091, kg, Priority: NOW, Start date: 08/29/13 1:09:00, Stop date: 08/29/13 1:09:00Notes: (Same as: Valium) Inactive 08/29/[address] [facility] Chlorthalidone 25 MG Oral Tablet 25 mg=1 tab, PO, Daily, # 30 tab, 0 Refill(s) Active 08/29/[address] [facility] Clonidine 0 Refill(s) No Longer Active 08/29/[address] [facility] Digoxin 0.25 MG Oral Tablet 0.25 mg, PO, Daily, # 30 tab, 0 Refill(s) No Longer Active 08/29/[address] [facility] loratadine 10 mg oral tablet 10 mg=1 tab, PO, Daily, itching / rash / allergy symptoms, # 30 tab, 0 Refill(s) Active 08/29/[address] [facility] enalapril 20 mg oral tablet 0 Refill(s) No Longer Active 08/29/[address] [facility] bethanechol 25 mg oral tablet 25 mg=1 tab, PO, TID, # 30 tab, 0 Refill(s) Active 08/29/[address] [facility] morphine 30 mg oral tablet 30 mg=1 tab, PO, Q4H, Pain, 0 Refill(s) No Longer Active 08/29/[address] [facility] Metoclopramide 10 MG Oral Tablet [Reglan] 10 mg, PO, QID- Before Meals, # 40 tab, 0 Refill(s) Active 08/29/[address] [facility] pantoprazole 40 MG Granules [Protonix] =1 Pack, PO, Daily, # 30 ea, 0 Refill(s) Active 08/29/[address] [facility] promethazine 25 mg oral tablet 0 Refill(s) No Longer Active 08/29/[address] [facility] LORazepam 2 mg oral tablet 2 mg=1 tab, PO, TID, Anxiety, # 20 tab, 0 Refill(s) No Longer Active 08/29/[address] [facility] Diphenhydramine Hydrochloride 25 MG Oral Tablet [Benadryl] 0 Refill(s) No Longer Active 08/29/[address] [facility] Zolpidem tartrate 10 MG Oral Tablet [Ambien] 10 mg=1 tab, PO, Bedtime, for sleep, 0 Refill(s) Active 08/29/[address] [facility] metoprolol tartrate 50 mg oral tablet 50 mg=1 tab, PO, BID, # 60 tab, 0 Refill(s) No Longer Active 08/29/[address] [facility] Insulin, Aspart, Human 10 unit, 0.1 mL, Route: SUB-Q, Drug form: SOLN, TID-Before Meals, Dosing Weight 59.091, kg, PRN Blood Glucose Results, Start date: 08/29/13 0:03:00, Duration: 30 day, Stop date: 09/28/13 0:02:00Notes: Roll in palms of hands gently; Do not shake vigorously. (Same as: NovoLOG) "single patient use only" Stable for 28 days at room temperature. Expires in days from Date No Longer Active 08/29/[address] [facility] Dextrose 50% Syringe 12.5 gm, 25 mL, Route: IVP, Drug Form: INJ, Dosing Weight 59.091, kg, PRN, PRN Blood Glucose Results, Start date: 08/29/13 0:03:00, Duration: 30 day, Stop date: 09/28/13 0:02:00 No Longer Active 08/29/[address] [facility] Glucagon 1 mg, Route: IM, Drug form: PDR/INJ, PRN, Dosing Weight 59.091, kg, PRN Blood Glucose Results, Start date: 08/29/13 0:03:00, Duration: 30 day, Stop date: 09/28/13 0:02:00 No Longer Active 08/29/[address] [facility] meropenem 500 mg, Route: IVPB, Drug form: PDR/INJ, [id number], Dosing Weight 59.091, kg, CrCL >=50ml/min, Extended infusion, infuse over 3 hours, Start date: 08/29/13 0:00:00, Duration: 30 day, Stop date: 09/27/13 12:00:00Notes: Same as Merrem.. Inactive 08/29/[address] [facility] Hydralazine 20 mg, 1 mL, Route: IVP, Drug form: INJ, Q4H, Dosing Weight 59.091, kg, PRN Hypertension, Start date: 08/28/13 23:30:00, Duration: 30 day, Stop date: 09/27/13 23:29:00, SBP > 150 mmHgNotes: (Same as: Apresoline) Push over 5 minutes No Longer Active 08/29/[address] [facility] Merrem 500 mg, Route: IVPB, Drug form: PDR/INJ, [id number], Dosing Weight 59.091, kg, CrCL >=50ml/min, Extended infusion, infuse over 3 hours, Start date: 08/28/13 23:00:00, Duration: 30 day, Stop date: 09/27/13 11:00:00Notes: Same as Merrem.. Inactive 08/29/[address] [facility] Morphine 2 mg, 1 mL, Route: IVP, Drug form: INJ, Q2H, Dosing Weight 59.091, kg, PRN Pain Score 1-5, Start date: 08/28/13 22:55:00, Duration: 30 day, Stop date: 09/27/13 22:54:00Notes: (Same as:MORPhine Sulfate) No Longer Active 08/29/[address] [facility] Phenergan 12.5 mg, 1 tab, Route: PO, Drug form: TAB, Q4H, Dosing Weight 59.091, kg, PRN Nausea & Vomiting, Start date: 08/28/13 22:55:00, Duration: 30 day, Stop date: 09/27/13 22:54:00Notes: (Same as: Phenergan) No Longer Active 08/29/[address] [facility] Regular Insulin, Human 100 UNT/ML Injectable Solution 7 unit, 0.07 mL, Route: SUB-Q, Drug form: SOLN, PRN, Dosing Weight 59.091, kg, PRN Abnormal Lab Result, Start date: 08/28/13 22:27:00, Duration: 30 day, Stop date: 09/27/13 22:26:00Notes: (Same as: Humulin R) Roll in palms of hands gently; Do not shake vigorously. "single patient use only" (Restricted to patients requiring a dose > 60 units) Stable for 28 days at room temperature Expires in days from Date No Longer Active 08/29/[address] [facility] Dextrose 50% Syringe 25 gm, 50 mL, Route: IVP, Drug Form: INJ, Dosing Weight 59.091, kg, PRN, PRN Abnormal Lab Result, Start date: 08/28/13 22:27:00, Duration: 30 day, Stop date: 09/27/13 22:26:00 No Longer Active 08/29/[address] [facility] Saline Flush 0.9% 5 ml, Route: MISC, Drug Form: INJ, Dosing Weight 59.091, kg, PRN, PRN Line Flush, Start date: 08/28/13 22:27:00, Duration: 30 day, Stop date: 09/27/13 22:26:00Notes: (Same as: BD Posiflush) No Longer Active 08/29/[address] [facility] hydrocortisone sodium succinate INJ (for IV use) 100 mg, 2 mL, Route: IVP, Drug form: PDR/INJ, Q8H, Dosing Weight 59.091, kg, Priority: STAT, Start date: 08/28/13 22:27:00, Duration: 3 doses or times, Stop date: 08/29/13 14:00:00Notes: (Same as: Solu-CORTEF) No Longer Active 08/29/[address] [facility] Sodium Chloride 0.154 MEQ/ML Injectable Solution 1,000 mL, Rate: 125 ml/hr, Infuse over: 8 hr, Route: IV, Dosing Weight 59.091 kg, Total Volume: 1,000, Start date: 08/28/13 22:27:00, Duration: 30 day, Stop date: 09/27/13 22:26:00 No Longer Active 08/29/[address] [facility] Acetaminophen 650 mg, 20.3 mL, Route: PO, Drug form: LIQ, Q4H, Dosing Weight 59.091, kg, PRN Pain 1-3/Temp > 99.5 F, Start date: 08/28/13 22:27:00, Duration: 30 day, Stop date: 09/27/13 22:26:00Notes: Max acet [id number]=7896lv/day (4 gm/day). (Same as: Tylenol) No Longer Active 08/29/[address] [facility] Phenergan 25 mg, 50 mL, Route: IVPB, Drug form: SOLN, ONCE, Dosing Weight 59.091, kg, Priority: STAT, Start date: 08/28/13 20:43:00, Stop date: 08/28/13 20:43:00 Inactive 08/29/2013 [facility] Morphine 4 mg, 1 mL, Route: IVP, Drug form: INJ, ONCE, Dosing Weight 59.091, kg, Priority: STAT, Start date: 08/28/13 20:43:00, Stop date: 08/28/13 20:43:00Notes: (Same as:MORPhine Sulfate) Inactive 08/29/2013 [facility] metoprolol tartrate 50 mg, 1 tab, Route: PO, Drug form: TAB, ONCE, Dosing Weight 59.091, kg, Priority: STAT, Start date: 08/28/13 19:37:00, Stop date: 08/28/13 19:37:00Notes: (Same as: Lopressor) Inactive 08/29/2013 [facility] Cipro 400 mg, 200 mL, Route: IVPB, Drug form: INJ, ONCE, Dosing Weight 59.091, kg, Priority: STAT, Start date: 08/28/13 19:22:00, Stop date: 08/28/13 19:22:00Notes: Do not refrigerate Inactive 08/29/2013 [facility] Benadryl 12.5 mg, 0.25 mL, Route: IVP, Drug form: INJ, ONCE, Dosing Weight 59.091, kg, Priority: STAT, Start date: 08/28/13 19:22:00, Stop date: 08/28/13 19:22:00Notes: (Same as: Benadryl) Inactive 08/29/2013 [facility] Phenergan 12.5 mg, Route: IVPB, ONCE, Dosing Weight 59.091, kg, Priority: STAT, Start date: 08/28/13 18:19:00, Stop date: 08/28/13 18:19:00 Inactive 08/28/2013 [facility] Morphine 4 mg, Route: IVP, Drug form: INJ, ONCE, Dosing Weight 59.091, kg, Priority: STAT, Start date: 08/28/13 18:16:00, Stop date: 08/28/13 18:16:00 Inactive 08/28/2013 [facility] Insulin, Regular, Pork 5 unit, Route: IVP, ONCE, Dosing Weight 59.091, kg, Priority: STAT, Start date: 08/28/13 16:41:00, Stop date: 08/28/13 16:41:00 Inactive 08/28/2013 [facility] Sodium Chloride 0.154 MEQ/ML Injectable Solution 1,000 mL, 1,000 ml/hr, Infuse Over: 1 hr, Route: IV, 1,000, Drug form: INJ, ONCE, Priority: STAT, Dosing Weight 59.091 kg, Start date: 08/28/13 15:04:00, Duration: 1 doses or times, Stop date: 08/28/13 15:04:00 Inactive 08/28/2013 [facility] Saline Flush 0.9% 5 mL, Route: IVP, Drug Form: INJ, Dosing Weight 59.091, kg, PRN, PRN Line Flush, Start date: 08/28/13 15:03:00, Duration: 24 hr, Stop date: 08/29/13 15:02:00Notes: (Same as: BD Posiflush) Inactive 08/28/2013 [facility] Benadryl 12.5 mg, 0.25 mL, Route: IVP, Drug form: INJ, ONCE, Dosing Weight 59.091, kg, Priority: STAT, Start date: 08/28/13 15:03:00, Stop date: 08/28/13 15:03:00Notes: (Same as: Benadryl) Inactive 08/28/2013 [facility] Phenergan 12.5 mg, Route: IVPB, ONCE, Dosing Weight 59.091, kg, Priority: STAT, Start date: 08/28/13 15:03:00, Stop date: 08/28/13 15:03:00 Inactive 08/28/2013 [facility] Morphine 4 mg, 1 mL, Route: IVP, Drug form: INJ, ONCE, Dosing Weight 59.091, kg, Priority: STAT, Start date: 08/28/13 15:03:00, Stop date: 08/28/13 15:03:00Notes: (Same as:MORPhine Sulfate) Inactive 08/28/2013 [facility] Acetaminophen 300 MG / Codeine Phosphate 30 MG Oral Tablet [Tylenol with Codeine #3] 1 tab, PO, Q6H, for pain, # 30 tab, 0 Refill(s) Active 08/03/2013 [facility] Ciprofloxacin 500 MG Oral Tablet [Cipro] 500 mg=1 tab, PO, Q12H, # 14 tab, 0 Refill(s) Active 08/03/2013 [facility] Morphine 4 mg, 1 mL, Route: IVP, Drug form: INJ, ONCE, Dosing Weight 60, kg, Start date: 08/03/13 17:23:00, Stop date: 08/03/13 17:23:00Notes: (Same as:MORPhine Sulfate) Inactive 08/03/2013 [facility] Sodium Chloride 0.154 MEQ/ML Injectable Solution 1,000 mL, 1,000 ml/hr, Infuse Over: 1 hr, Route: IV, 1,000, Drug form: INJ, ONCE, Priority: STAT, Dosing Weight 60 kg, Start date: 08/03/13 15:16:00, Duration: 1 doses or times, Stop date: 08/03/13 15:16:00 Inactive 08/03/2013 [facility] Benadryl 12.5 mg, 0.25 mL, Route: IVP, Drug form: INJ, ONCE, Dosing Weight 59.773, kg, Priority: STAT, Start date: 08/03/13 14:52:00, Stop date: 08/03/13 14:52:00Notes: (Same as: Benadryl) Inactive 08/03/2013 [facility] Reglan 10 mg, 2 mL, Route: IVP, Drug form: INJ, ONCE, Dosing Weight 59.773, kg, Priority: STAT, Start date: 08/03/13 14:52:00, Stop date: 08/03/13 14:52:00Notes: (Same as: Reglan) Inactive 08/03/2013 [facility] Morphine 4 mg, 1 mL, Route: IVP, Drug form: INJ, ONCE, Dosing Weight 59.773, kg, Priority: STAT, Start date: 08/03/13 14:51:00, Stop date: 08/03/13 14:51:00Notes: (Same as:MORPhine Sulfate) Inactive 08/03/2013 [facility] Acetaminophen 325 MG Oral Tablet [Tylenol] =650 mg, PO, Q6H, Headache, # 20 ea, 0 Refill(s) Active 08/01/2013 [facility] Lorazepam 0.5 MG Oral Tablet [Ativan] 0.5 mg=1 tab, PO, QID, Anxiety, # 24 tab, 0 Refill(s) Active 08/01/2013 [facility] Lorazepam 1 MG Oral Tablet [Ativan] 1 mg=1 tab, PO, TID, Anxiety, # 20 tab, 0 Refill(s) Active 08/01/2013 [facility] ciprofloxacin 500 mg oral tablet 500 mg=1 tab, PO, [id number], # 10 tab, 0 Refill(s) Active 08/01/2013 [facility] Cipro 500 mg, 1 tab, Route: PO, Drug form: TAB, [id number], Dosing Weight 59.773, kg, Start date: 07/31/13 13:00:00, Duration: 30 day, Stop date: 08/30/13 1:00:00Notes: May interfere w/enteral feedings - Take 1 hr before or 2 hrs after antacids, dairy pdt & minerals. On empty stomach. No Longer Active 07/31/2013 [facility] Benadryl 25 mg, 0.5 mL, Route: IVP, Drug form: INJ, Q8H, Dosing Weight 59.773, kg, PRN as needed for itching, Start date: 07/30/13 18:14:00, Stop date: 08/29/13 18:13:00Notes: (Same as: Benadryl) No Longer Active 07/30/2013 [facility] Magnesium Sulfate 2 gm, 50 mL, Route: IVPB, Drug form: INJ, ONCE, Dosing Weight 59.773, kg, Start date: 07/30/13 8:28:00, Duration: 2 hr, Stop date: 07/30/13 8:28:00 Inactive 07/30/2013 [facility] Hydralazine 20 mg, 1 mL, Route: IVP, Drug form: INJ, Q4H, Dosing Weight 59.773, kg, PRN Hypertension, Start date: 07/30/13 0:46:00, Duration: 30 day, Stop date: 08/29/13 0:45:00Notes: (Same as: Apresoline) Push over 5 minutes No Longer Active 07/30/2013 [facility] Protonix 20 mg, Route: PO, Drug form: ECTAB, BID, Dosing Weight 54.545, kg, Start date: 07/29/13 9:00:00, Duration: 30 day, Stop date: 08/27/13 17:00:00 Inactive 07/29/2013 [facility] MS Contin 60 mg, 2 tab, Route: PO, Drug form: ERTAB, Q12H, Dosing Weight 54.545, kg, Start date: 07/29/13 9:00:00, Duration: 30 day, Stop date: 08/27/13 21:00:00Notes: Do not crush (Same as:Oramorph SR, MS Contin) No Longer Active 07/29/2013 [facility] [facility] metoprolol tartrate 50 mg, 1 tab, Route: PO, Drug form: TAB, BID, Dosing Weight 54.545, kg, Start date: 07/29/13 9:00:00, Duration: 30 day, Stop date: 08/27/13 21:00:00Notes: (Same as: Lopressor) No Longer Active 07/29/2013 [facility] Robaxin 500 mg, 1 tab, Route: PO, Drug form: TAB, BID, Dosing Weight 54.545, kg, Start date: 07/29/13 9:00:00, Duration: 30 day, Stop date: 08/27/13 21:00:00Notes: (Same as:Robaxin) No Longer Active 07/29/2013 [facility] Bentyl 10 mg, 1 cap, Route: PO, Drug form: CAP, BID, Dosing Weight 54.545, kg, Start date: 07/29/13 9:00:00, Duration: 30 day, Stop date: 08/27/13 21:00:00Notes: (Same as: Bentyl) No Longer Active 07/29/2013 [facility] Enoxaparin 40 mg, 0.4 mL, Route: SUB-Q, Drug form: INJ, [id number], Dosing Weight 54.545, kg, Start date: 07/29/13 8:00:00, Duration: 30 day, Stop date: 08/27/13 8:00:00Notes: (Same as: Lovenox) No Longer Active 07/29/2013 [facility] ferrous sulfate 325 mg, 1 tab, Route: PO, Drug form: TAB, BID-Meals, Dosing Weight 54.545, kg, Start date: 07/29/13 8:00:00, Duration: 30 day, Stop date: 08/27/13 17:00:00Notes: Give with food. iron elemental 65mg=3 25mg as ferrous sulfate Dose=___mg elemental iron No Longer Active 07/29/2013 [facility] Metoclopramide 10 MG Oral Tablet [Reglan] 10 mg, 1 tab, Route: PO, Drug form: TAB, QID-Before Meals, Dosing Weight 54.545, kg, Start date: 07/29/13 7:30:00, Duration: 30 day, Stop date: 08/27/13 21:00:00Notes: (Same as: Reglan) Take 30 min before meals No Longer Active 07/29/2013 [facility] Protonix 40 mg, 1 tab, Route: PO, Drug form: ECTAB, BID- Before Meals, Start date: 07/29/13 7:30:00, Duration: 30 day, Stop date: 08/27/13 16:30:00Notes: Tablet should not be chewed or crushed. (Same as: Taylor nix) No Longer Active 07/29/2013 [facility] Thyroxine 100 microgram, 1 tab, Route: PO, Drug form: TAB, Q630AM, Dosing Weight 54.545, kg, Start date: 07/29/13 6:30:00, Duration: 30 day, Stop date: 08/27/13 6:30:00Notes: Take 1 hour before or 2 hours after meal; Enteral feeds may interefere with the absorption of this medication. (Same as:Levothroid, Synthroid) No Longer Active 07/29/2013 [facility] meropenem 500 mg, Route: IV, Drug form: PDR/INJ, ABXQ6H, Dosing Weight 54.545, kg, Start date: 07/29/13 6:00:00, Duration: 30 day, Stop date: 08/28/13 0:00:00Notes: Same as Merrem.. No Longer Active 07/29/2013 [facility] Levemir 35 unit, 0.35 mL, Route: SUB-Q, Drug form: INJ, [id number], Dosing Weight 54.545, kg, Priority: NOW, Start date: 07/29/13 4:14:00, Duration: 30 day, Stop date: 08/27/13 18:00:00Notes: Same as Levemir "single patient use only" No Longer Active 07/29/2013 [facility] Insulin, Aspart, Human 6 unit, 0.06 mL, Route: SUB-Q, Drug form: SOLN, TID-Before Meals, Dosing Weight 54.545, kg, PRN Blood Glucose Results, Start date: 07/29/13 4:13:00, Duration: 30 day, Stop date: 08/28/13 4:12:00Notes: Roll in palms of hands gently; Do not shake vigorously. (Same as: NovoLOG) "single patient use only" Stable for 28 days at room temperature. Expires in days from Date No Longer Active 07/29/2013 [facility] Glucagon 1 mg, Route: IM, Drug form: PDR/INJ, PRN, Dosing Weight 54.545, kg, PRN Blood Glucose Results, Start date: 07/29/13 4:13:00, Duration: 30 day, Stop date: 08/28/13 4:12:00 No Longer Active 07/29/2013 [facility] Dextrose 50% Syringe 12.5 gm, 25 mL, Route: IVP, Drug Form: INJ, Dosing Weight 54.545, kg, PRN, PRN Blood Glucose Results, Start date: 07/29/13 4:13:00, Duration: 30 day, Stop date: 08/28/13 4:12:00 No Longer Active 07/29/2013 [facility] Morphine 4 mg, 1 mL, Route: IV, Drug form: INJ, Q4H, Dosing Weight 54.545, kg, PRN as needed for pain, Start date: 07/29/13 4:13:00, Duration: 30 day, Stop date: 08/28/13 4:12:00Notes: (Same as:MORPhine Sulfate) No Longer Active 07/29/2013 [facility] Sodium Chloride 0.154 MEQ/ML Injectable Solution 1,000 mL, Rate: 150 ml/hr, Infuse over: 6.7 hr, Route: IV, Dosing Weight 54.545 kg, Total Volume: 1,000, Start date: 07/29/13 4:11:00, Duration: 30 day, Stop date: 08/28/13 4:10:00 No Longer Active 07/29/2013 [facility] Saline Flush 0.9% 5 ml, Route: IVP, Drug Form: INJ, Dosing Weight 54.545, kg, PRN, PRN Line Flush, Start date: 07/29/13 4:11:00, Duration: 30 day, Stop date: 08/28/13 4:10:00Notes: (Same as: BD Posiflush) No Longer Active 07/29/2013 [facility] Phenergan 25 mg, 1 tab, Route: PO, Drug form: TAB, Q6H, Dosing Weight 54.545, kg, PRN as needed for nausea/vomiting, Start date: 07/29/13 4:09:00, Duration: 30 day, Stop date: 08/28/13 4:08:00Notes: (Same as: Phenergan) No Longer Active 07/29/2013 [facility] Ativan 0.5 mg, 1 tab, Route: PO, Drug form: TAB, QID, Dosing Weight 54.545, kg, PRN as needed for anxiety, Start date: 07/29/13 4:08:00, Duration: 30 day, Stop date: 08/28/13 4:07:00Notes: (Same as: Ativan) No Longer Active 07/29/2013 [facility] Benadryl 25 mg, 1 tab, Route: PO, Drug form: TAB, Bedtime, Dosing Weight 54.545, kg, PRN as needed for insomnia, Start date: 07/29/13 4:08:00, Duration: 30 day, Stop date: 08/28/13 4:07:00 No Longer Active 07/29/2013 [facility] Phenergan 25 mg, 50 mL, Route: IVPB, Drug form: SOLN, ONCE, Dosing Weight 54.545, kg, Priority: STAT, Start date: 07/29/13 0:38:00, Stop date: 07/29/13 0:38:00 Inactive 07/29/2013 [facility] Morphine 6 mg, 0.6 mL, Route: IVP, Drug form: SOLN, ONCE, Dosing Weight 54.545, kg, Priority: STAT, Start date: 07/29/13 0:38:00, Stop date: 07/29/13 0:38:00Notes: (Same as: MORPhine Sulfate) Inactive 07/29/2013 [facility] meropenem 1,000 mg, Route: IV, Q8H, Dosing Weight 54.545, kg, Start date: 07/29/13 0:00:00, Duration: 30 day, Stop date: 08/27/13 16:00:00 Inactive 07/29/2013 [facility] metoprolol tartrate 25 mg, 1 tab, Route: PO, Drug form: TAB, BID, Dosing Weight 54.545, kg, Start date: 07/29/13 0:00:00, Duration: 30 day, Stop date: 08/27/13 21:00:00Notes: (Same as: Lopressor) Inactive 07/29/2013 [facility] Benadryl 25 mg, 0.5 mL, Route: IVP, Drug form: INJ, ONCE, Dosing Weight 54.545, kg, Priority: STAT, Start date: 07/28/13 22:09:00, Stop date: 07/28/13 22:09:00Notes: (Same as: Benadryl) Inactive 07/29/2013 [facility] Metoprolol 5 mg, 5 mL, Route: IVP, Drug form: INJ, ONCE, Dosing Weight 54.545, kg, Priority: STAT, Start date: 07/28/13 21:46:00, Stop date: 07/28/13 21:46:00Notes: (Same as: Lopressor) Push over 2 minutes Inactive 07/29/2013 [facility] Morphine 2 mg, 1 mL, Route: IVP, Drug form: INJ, ONCE, Dosing Weight 54.545, kg, Priority: STAT, Start date: 07/28/13 19:31:00, Stop date: 07/28/13 19:31:00Notes: (Same as:MORPhine Sulfate) Inactive 07/29/2013 [facility] ferrous sulfate 325 MG Oral Tablet 325 mg=1 tab, PO, BID, # 270 tab, 0 Refill(s) Active 07/28/2013 [facility] Dicyclomine Hydrochloride 10 MG Oral Capsule [Bentyl] 10 mg=1 cap, PO, BID, # 40 cap, 0 Refill(s) Active 07/28/2013 [facility] Humalog 0 Refill(s) Active 07/28/2013 [facility] levothyroxine 100 mcg (0.1 mg) oral tablet 100 microgram=1 tab, PO, Daily, # 30 tab, 0 Refill(s) Active 07/28/2013 [facility] Diphenhydramine Hydrochloride 25 MG Oral Capsule [Benadryl] 25 mg=1 cap, PO, Bedtime, for insomnia, # 30 cap, 0 Refill(s) Active 07/28/2013 [facility] Lorazepam 0.5 MG Oral Tablet [Ativan] 0.5 mg=1 tab, PO, QID, Anxiety, # 20 tab, 0 Refill(s) No Longer Active 07/28/2013 [facility] Methocarbamol 500 MG Oral Tablet [Robaxin] 500 mg=1 tab, PO, BID, # 56 tab, 0 Refill(s) Active 07/28/2013 [facility] Lantus 70 units, SUB-Q, Daily, 0 Refill(s) Active 07/28/2013 [facility] pantoprazole 20 MG Enteric Coated Tablet [Protonix] 20 mg=1 tab, PO, BID, # 60 tab, 0 Refill(s) Active 07/28/2013 [facility] Metoclopramide 10 MG Oral Tablet [Reglan] 10 mg, PO, QID- Before Meals, # 40 tab, 0 Refill(s) Active 07/28/2013 [facility] Morphine Sulfate 60 MG Extended Release Tablet [MS Contin] 60 mg=1 tab, PO, Q12H, 0 Refill(s) Active 07/28/2013 [facility] Promethazine Hydrochloride 25 MG Oral Tablet [Phenergan] 25 mg=1 tab, PO, Q6H, Nausea, # 15 tab, 0 Refill(s) Active 07/28/2013 [facility] metoprolol tartrate 50 mg oral tablet 50 mg=1 tab, PO, BID, # 180 tab, 0 Refill(s) Active 07/28/2013 [facility] Omnipaque 240 50 mL, Route: PO, Drug Form: SOLN, Dosing Weight 54.545, kg, ONCE, Start date: 07/28/13 18:31:00, Stop date: 07/28/13 18:31:00Notes: (Same as:Omnipaque 240) 12,000mg/50ml Inactive 07/28/2013 [facility] Sodium Chloride 0.154 MEQ/ML Injectable Solution 1,000 mL, 1,000 ml/hr, Infuse Over: 1 hr, Route: IV, 1,000, Drug form: INJ, ONCE, Priority: STAT, Dosing Weight 54.545 kg, Start date: 07/28/13 18:28:00, Duration: 1 doses or times, Stop date: 07/28/13 18:28:00 Inactive 07/28/2013 [facility] Insulin, Regular, Pork 5 unit, 0.05 mL, Route: IVP, Drug form: SOLN, ONCE, Dosing Weight 54.545, kg, Priority: STAT, Start date: 07/28/13 18:28:00, Stop date: 07/28/13 18:28:00Notes: (Same as: Humulin R) Roll in palms of hands gently; Do not shake vigorously. "single patient use only" (Restricted to patients requiring a dose > 60 units) Stable for 28 days at room temperature Expires in days from Date Inactive 07/28/2013 [facility] Benadryl 12.5 mg, 0.25 mL, Route: IVP, Drug form: INJ, ONCE, Dosing Weight 54.545, kg, Priority: STAT, Start date: 07/28/13 17:37:00, Stop date: 07/28/13 17:37:00Notes: (Same as: Benadryl) Inactive 07/28/2013 [facility] Phenergan 12.5 mg, 50 mL, Route: IVPB, Drug form: SOLN, ONCE, Dosing Weight 54.545, kg, Priority: STAT, Start date: 07/28/13 17:37:00, Stop date: 07/28/13 17:37:00 Inactive 07/28/2013 [facility] Morphine 6 mg, 0.6 mL, Route: IVP, Drug form: SOLN, ONCE, Dosing Weight 54.545, kg, Priority: STAT, Start date: 07/28/13 17:37:00, Stop date: 07/28/13 17:37:00Notes: (Same as: MORPhine Sulfate) Inactive 07/28/2013 [facility] Sodium Chloride 0.154 MEQ/ML Injectable Solution 1,000 mL, 1,000 ml/hr, Infuse Over: 1 hr, Route: IV, 1,000, Drug form: INJ, ONCE, Priority: STAT, Dosing Weight 54.545 kg, Start date: 07/28/13 17:10:00, Duration: 1 doses or times, Stop date: 07/28/13 17:10:00 Inactive 07/28/2013 [facility] Saline Flush 0.9% 5 mL, Route: IVP, Drug Form: INJ, Dosing Weight 54.545, kg, PRN, PRN Line Flush, Start date: 07/28/13 17:09:00, Duration: 24 hr, Stop date: 07/29/13 17:08:00Notes: (Same as: BD Posiflush) No Longer Active 07/28/2013 [facility] Insulin, Regular, Pork 10 unit, Route: IVP, ONCE, Dosing Weight 54.545, kg, Priority: STAT, Start date: 07/17/13 16:37:00, Stop date: 07/17/13 16:37:00 Inactive 07/17/2013 [facility] Morphine 2 mg, Route: IVP, Drug form: INJ, ONCE, Dosing Weight 54.545, kg, Priority: STAT, Start date: 07/17/13 16:36:00, Stop date: 07/17/13 16:36:00 Inactive 07/17/2013 [facility] Metoclopramide 10 MG Oral Tablet [Reglan] 10 mg=1 tab, PO, QID, # 28 tab, 0 Refill(s) Active 07/17/2013 [facility] ciprofloxacin 500 mg oral tablet 500 mg=1 tab, PO, Q12H, # 14 tab, 0 Refill(s) Active 07/17/2013 [facility] Benadryl 25 mg, Route: IVP, ONCE, Dosing Weight 54.545, kg, Priority: STAT, Start date: 07/17/13 15:06:00, Stop date: 07/17/13 15:06:00 Inactive 07/17/2013 [facility] Insulin, Regular, Pork 6 unit, Route: IV, ONCE, Dosing Weight 54.545, kg, Start date: 07/17/13 14:45:00, Stop date: 07/17/13 14:45:00 Inactive 07/17/2013 [facility] Sodium Chloride 0.154 MEQ/ML Injectable Solution 1,000 mL, 1,000 ml/hr, Infuse Over: 1 hr, Route: IV, ONCE, Priority: STAT, Dosing Weight 54.545 kg, Start date: 07/17/13 14:45:00, Duration: 1 doses or times, Stop date: 07/17/13 14:45:00 Inactive 07/17/2013 [facility] Ciprofloxacin 400 mg, Route: IVPB, ONCE, Dosing Weight 54.545, kg, Priority: STAT, Start date: 07/17/13 14:45:00, Stop date: 07/17/13 14:45:00 Inactive 07/17/2013 [facility] Morphine 4 mg, 1 mL, Route: IVP, Drug form: INJ, ONCE, Dosing Weight 54.545, kg, Priority: STAT, Start date: 07/17/13 14:02:00, Stop date: 07/17/13 14:02:00(Same as:MORPhine Sulfate) Inactive 07/17/2013 [facility] levothyroxine 88 mcg (0.088 mg) oral tablet 88 microgram=1 tab, PO, Daily, # 30 tab, 0 Refill(s) Active 07/17/2013 [facility] Benadryl QID, 0 Refill(s) Active 07/17/2013 [facility] Trazodone Hydrochloride 50 MG Oral Tablet 50 mg=1 tab, PO, TID, # 90 tab, 0 Refill(s) Active 07/17/2013 [facility] Saline Flush 0.9% 5 mL, Route: IVP, Drug Form: INJ, Dosing Weight 54.545, kg, PRN, PRN Line Flush, Start date: 07/17/13 13:45:00, Duration: 24 hr, Stop date: 07/18/13 13:44:00(Same as: BD Posiflush) Inactive 07/17/2013 [facility] Sodium Chloride 0.154 MEQ/ML Injectable Solution 1,000 mL, Infuse Over: 1 hr, Route: IV, ONCE, Priority: STAT, Dosing Weight 54.545 kg, Start date: 07/17/13 13:45:00, Stop date: 07/17/13 13:45:00 Inactive 07/17/2013 [facility] Reglan 10 mg, Route: IVP, Drug form: INJ, ONCE, Dosing Weight 54.545, kg, Priority: STAT, Start date: 07/17/13 13:44:00, Stop date: 07/17/13 13:44:00 Inactive 07/17/2013 [facility] erythromycin 250 mg oral tablet 250 mg, 1 tab, PO, Q8H, 90 tab, Substitution Allowed, TAB PO Active [facility] 10/22/[address] [facility] insulin glargine 100 units/mL subcutaneous solution 12 unit, 0.12 mL, SUB-Q, Daily, 1 vial, 3, 3, Substitution Allowed, SOLN SUB-Q Active [facility] 10/22/[address] [facility] sitagliptin 100 mg oral tablet 100 mg, 1 tab, PO, Daily, 30 tab, Substitution Allowed, TAB PO Active [facility] 10/22/[address] [facility] metFORmin 500 mg oral tablet, extended release 500 mg, 1 tab, PO, Bedtime, 30 tab, Substitution Allowed, ERTAB PO Active [facility] 10/22/[address] [facility] levothyroxine 25 mcg (0.025 mg) oral tablet 25 microgram, 1 tab, PO, Q630AM, 30 tab, Substitution Allowed, TAB PO Active [facility] 10/22/[address] [facility] promethazine 12.5 mg rectal suppository 12.5 mg, 1 supp, NH, Q6H, PRN, 90 supp, Nausea & Vomiting, Substitution Allowed, SUPP NH Active [facility] 10/22/[address] [facility] erythromycin + Sodium Chloride 0.9% IV 100 mL 250 mg, Route: IVPB, ABXQ8H, Dosing Weight 63.636, kg, Start date: 10/21/12 9:48:00, Duration: 30 day, Stop date: 11/20/12 1:48:00 IVPB No Longer Active [facility] 10/21/[address] [facility] Lantus 12 unit, 0.12 mL, Route: SUB-Q, Drug form: INJ, Daily, Dosing Weight 63.636, kg, Start date: 10/21/12 9:00:00, Duration: 30 day, Stop date: 11/19/12 9:00:00 SUB-Q No Longer Active [facility] 10/21/[address] [facility] Benadryl 25 mg, 0.5 mL, Route: IVP, Drug form: INJ, Q6H, Dosing Weight 63.636, kg, PRN Itching, Start date: 10/20/12 20:49:00, Duration: 30 day, Stop date: 11/19/12 20:48:00 IVP No Longer Active Maegan 10/21/[address] [facility] digoxin 0.25 mg, 1 tab, Route: PO, Drug form: TAB, Daily, Dosing Weight 63.636, kg, Start date: 10/20/12 18:18:00, Duration: 30 day, Stop date: 11/19/12 9:00:00 PO No Longer Active Gensini 10/20/[address] [facility] labetalol 10 mg, 2 mL, Route: IVP, Drug form: INJ, ONCE, Dosing Weight 63.636, kg, PRN Hypertension, Priority: STAT, Start date: 10/20/12 11:45:00 IVP No Longer Active Levy 10/20/[address] [facility] Phenergan 12.5 mg, 1 supp, Route: NH, Drug form: SUPP, Q6H, Dosing Weight 63.636, kg, PRN Nausea & Vomiting, Start date: 10/20/12 8:18:00, Duration: 30 day, Stop date: 11/19/12 8:17:00 NH No Longer Active Ani 10/20/[address] [facility] magnesium sulfate + Sodium Chloride 0.9% IV 50 mL 1 gm, 2 mL, Route: IVPB, ONCE, Dosing Weight 63.636, kg, Start date: 10/19/12 12:19:00, Stop date: 10/19/12 12:19:00 IVPB No Longer Active Michelle 10/19/[address] [facility] Ambien 10 mg, 2 tab, Route: PO, Drug form: TAB, Bedtime, Dosing Weight 63.636, kg, Start date: 10/18/12 21:00:00, Duration: 30 day, Stop date: 11/16/12 21:00:00 PO No Longer Active Gensini 10/19/[address] [facility] naproxen 500 mg, 1 tab, Route: PO, Drug form: TAB, BID, Dosing Weight 63.636, kg, Start date: 10/18/12 17:00:00, Duration: 3 day, Stop date: 10/21/12 9:00:00 PO No Longer Active [facility] 10/18/[address] [facility] Lantus 4 unit, 0.04 mL, Route: SUB-Q, Drug form: INJ, ONCE, Dosing Weight 63.636, kg, Start date: 10/18/12 9:45:00, Stop date: 10/18/12 9:45:00 SUB-Q No Longer Active Gens[facility] 10/18/[address] [facility] metFORmin 500 mg oral tablet, extended release 1,000 mg, 2 tab, Route: PO, Drug form: ERTAB, Bedtime, Dosing Weight 63.636, kg, Start date: 10/17/12 21:00:00, Stop date: 11/15/12 21:00:00 PO No Longer Active [facility] 10/18/[address] [facility] Pepcid 20 mg, 1 tab, Route: PO, Drug form: TAB, BID, Start date: 10/17/12 17:00:00, Duration: 30 day, Stop date: 11/16/12 9:00:00 PO No Longer Active [facility] 10/17/[address] [facility] digoxin 250 mcg (0.25 mg) oral tablet 0.25 mg, 2 tab, Route: PO, Drug form: TAB, Daily, Dosing Weight 63.636, kg, Start date: 10/17/12 16:00:00, Duration: 30 day, Stop date: 11/16/12 17:00:00 PO No Longer Active Michelle 10/17/[address] [facility] morphine Sulfate 4 mg, 1 mL, Route: IVP, Drug form: INJ, Q4H, Dosing Weight 63.636, kg, PRN Pain, Start date: 10/17/12 14:35:00, Duration: 30 day, Stop date: 11/16/12 14:34:00 IVP No Longer Active Bubis 10/17/[address] [facility] Januvia 100 mg, 1 tab, Route: PO, Drug form: TAB, Daily, Dosing Weight 63.636, kg, Start date: 10/17/12 10:00:00, Duration: 30 day, Stop date: 11/16/12 9:00:00 PO No Longer Active G[facility] 10/17/[address] [facility] glucagon 1 mg, Route: IM, Drug form: PDR/INJ, PRN, Dosing Weight 63.636, kg, PRN Blood Glucose Results, Start date: 10/16/12 18:07:00, Duration: 30 day, Stop date: 11/15/12 18:06:00 IM No Longer Active [facility] 10/16/[address] [facility] Dextrose 50% Syringe 25 gm, 50 mL, Route: IVP, Drug Form: INJ, Dosing Weight 63.636, kg, PRN, PRN Blood Glucose Results, Start date: 10/16/12 18:07:00, Duration: 30 day, Stop date: 11/15/12 18:06:00 IVP No Longer Active [facility] 10/16/[address] [facility] Insulin regular 5 unit, 0.05 mL, Route: SUB-Q, Drug form: SOLN, TID-Before Meals, Dosing Weight 63.636, kg, PRN Blood Glucose Results, Start date: 10/16/12 18:07:00, Duration: 30 day, Stop date: 11/15/12 18:06:00 SUB-Q No Longer Active Gensini 10/16/[address] [facility] Lantus 14 unit, 0.14 mL, Route: SUB-Q, Drug form: INJ, Daily, Dosing Weight 63.636, kg, Start date: 10/16/12 9:00:00, Stop date: 11/14/12 9:00:00 SUB-Q No Longer Active Bubis 10/16/[address] [facility] digoxin 0.25 mg, 1 mL, Route: IVP, Drug form: INJ, Daily, Dosing Weight 63.636, kg, Start date: 10/16/12 9:00:00, Duration: 30 day, Stop date: 11/14/12 9:00:00 IVP No Longer Active Bubis 10/16/[address] [facility] Pepcid 20 mg, 2 mL, Route: IVP, Drug form: INJ, Q12H, Dosing Weight 63.636, kg, Start date: 10/16/12 9:00:00, Duration: 30 day, Stop date: 11/14/12 21:00:00 IVP No Longer Active Gensini 10/16/[address] [facility] hydrochlorothiazide 25 mg, 1 tab, Route: PO, Drug form: TAB, Daily, Dosing Weight 63.636, kg, Start date: 10/16/12 9:00:00, Duration: 30 day, Stop date: 11/14/12 9:00:00 PO No Longer Active Gensini 10/16/[address] [facility] Valium 2 mg, 0.4 mL, Route: IV, Drug form: INJ, Q6H, Dosing Weight 63.636, kg, PRN as needed for anxiety, Start date: 10/16/12 8:44:00, Duration: 30 day, Stop date: 11/15/12 8:43:00 IV No Longer Active [facility] 10/16/[address] [facility] levothyroxine 25 microgram, 1 tab, Route: PO, Drug form: TAB, Q630AM, Dosing Weight 63.636, kg, Start date: 10/16/12 6:30:00, Duration: 30 day, Stop date: 11/14/12 6:30:00 PO No Longer Active G[facility] 10/16/[address] [facility] morphine Sulfate 3 mg, 0.75 mL, Route: IVP, Drug form: INJ, Q4H, Dosing Weight 63.636, kg, PRN Pain, Start date: 10/16/12 1:40:00, Stop date: 11/15/12 1:39:00 IVP No Longer Active Bubis 10/16/[address] [facility] Benadryl 25 mg, 0.5 mL, Route: IVP, Drug form: INJ, Q8H, Dosing Weight 63.636, kg, PRN Itching, Start date: 10/16/12 0:32:00, Duration: 30 day, Stop date: 11/15/12 0:31:00 IVP No Longer Active Issa 10/16/[address] [facility] glucagon 1 mg, Route: IM, Drug form: PDR/INJ, PRN, Dosing Weight 63.636, kg, PRN Blood Glucose Results, Start date: 10/16/12 0:06:00, Duration: 30 day, Stop date: 11/15/12 0:05:00 IM No Longer Active Gensini 10/16/[address] [facility] Dextrose 50% Syringe 25 gm, 50 mL, Route: IVP, Drug Form: INJ, Dosing Weight 63.636, kg, PRN, PRN Blood Glucose Results, Start date: 10/16/12 0:06:00, Duration: 30 day, Stop date: 11/15/12 0:05:00 IVP No Longer Active Gensini 10/16/[address] [facility] Insulin regular 5 unit, 0.05 mL, Route: SUB-Q, Drug form: SOLN, Sliding Scale, Dosing Weight 63.636, kg, PRN Blood Glucose Results, Start date: 10/16/12 0:06:00, Stop date: 11/15/12 0:05:00 SUB- Q No Longer Active Gensini 10/16/[address] [facility] Phenergan 12.5 mg, 0.5 mL, Route: IVPB, Drug form: INJ, Q4H, Dosing Weight 63.636, kg, PRN Nausea & Vomiting, Start date: 10/15/12 23:24:00, Duration: 30 day, Stop date: 11/14/12 23:23:00 IVPB No Longer Active Gensini 10/16/[address] [facility] metoprolol tartrate 50 mg, 1 tab, Route: PO, Drug form: TAB, Q12H, Dosing Weight 63.636, kg, Start date: 10/15/12 23:22:00, Stop date: 11/14/12 21:00:00 PO No Longer Active Michelle 10/16/[address] [facility] Insulin regular 10 unit, 0.1 mL, Route: SUB-Q, Drug form: SOLN, Sliding Scale, Dosing Weight 63.636, kg, PRN Blood Glucose Results, Start date: 10/15/12 23:20:00, Duration: 30 day, Stop date: 11/14/12 23:19:00 SUB-Q No Longer Active Gensini 10/16/[address] [facility] glucagon 1 mg, Route: IM, Drug form: PDR/INJ, PRN, Dosing Weight 63.636, kg, PRN Blood Glucose Results, Start date: 10/15/12 23:20:00, Duration: 30 day, Stop date: 11/14/12 23:19:00 IM No Longer Active [facility] 10/16/[address] [facility] Dextrose 50% Syringe 25 gm, 50 mL, Route: IVP, Drug Form: INJ, Dosing Weight 63.636, kg, PRN, PRN Blood Glucose Results, Start date: 10/15/12 23:20:00, Duration: 30 day, Stop date: 11/14/12 23:19:00 IVP No Longer Active [facility] 10/16/[address] [facility] normal saline 0.9% IV 1,000 mL 1,000 mL, Rate: 100 ml/hr, Infuse over: 10 hr, Route: IV, Dosing Weight 63.636 kg, Total Volume: 1,000, Start date: 10/15/12 23:20:00, Duration: 30 day, Stop date: 11/14/12 23:19:00 IV No Longer Active [facility] 10/16/[address] [facility] morphine Sulfate 2 mg, 1 mL, Route: IVP, Drug form: INJ, Q6H, Dosing Weight 63.636, kg, PRN Pain Score 4-6, Start date: 10/15/12 23:15:00, Duration: 30 day, Stop date: 11/14/12 23:14:00 IVP No Longer Active Maegan 10/16/[address] [facility] Saline Flush 0.9% 5 ml, Route: IVP, Drug Form: INJ, Dosing Weight 63.636, kg, PRN, PRN Line Flush, Start date: 10/15/12 23:15:00, Duration: 30 day, Stop date: 11/14/12 23:14:00 IVP No Longer Active Gensini 10/16/[address] [facility] Pepcid 25 mg, PO, Bedtime, Substitution Allowed PO Active 10/16/[address] [facility] Lantus 20 unit, SUB-Q, Bedtime, Substitution Allowed SUB-Q No Longer Active 10/16/[address] [facility] metoclopramide 10 mg oral tablet Substitution Allowed Active 10/16/[address] [facility] ferrous sulfate 65 mg, Substitution Allowed Active 10/16/[address] [facility] diazepam 10 mg oral tablet 10 mg, 1 tab, PO, BID, PRN, Anxiety, Substitution Allowed, TAB PO Active 10/16/[address] [facility] hydrochlorothiazide 25 mg oral tablet Substitution Allowed Active 10/16/[address] [facility] digoxin 250 mcg (0.25 mg) oral tablet 250 microgram, 1 tab, PO, Substitution Allowed PO Active 10/16/[address] [facility] Benadryl 50 mg, PO, Q4H, Substitution Allowed PO Active 10/16/[address] [facility] Phenergan 25 mg oral tablet 25 mg, 1 tab, PO, Q4H, PRN, 15 tab, Nausea, Substitution Allowed PO No Longer Active 10/16/[address] [facility] MS Contin 60 mg oral tablet, extended release 60 mg, 1 tab, PO, Q4H, PRN, pain, Substitution Allowed, ERTAB PO Active 10/16/[address] [facility] Carafate 1 g oral tablet Substitution Allowed Active 10/16/[address] [facility] Ambien 10 mg oral tablet 10 mg, 1 tab, PO, Bedtime, PRN, for sleep, Substitution Allowed, TAB PO Active 10/16/[address] [facility] Reglan 10 mg oral tablet 10 mg, 1 tab, PO, TID, 28 tab, Substitution Allowed, TAB PO Active 10/16/[address] [facility] Metoprolol Tartrate 25 mg oral tablet 25 mg, 1 tab, PO, BID, 60 tab, Substitution Allowed PO Active 10/16/[address] [facility] Robaxin 500 mg oral tablet 500 mg, 1 tab, PO, BID, Substitution Allowed, TAB PO Active 10/16/[address] [facility] Phenergan 12.5 mg, Route: IVPB, ONCE, Dosing Weight 63.636, kg, Priority: STAT, Start date: 10/15/12 21:28:00, Stop date: 10/15/12 21:28:00 IVPB No Longer Active Bolanos 10/16/[address] [facility] morphine Sulfate 4 mg, Route: IVP, Drug form: INJ, ONCE, Dosing Weight 63.636, kg, Priority: STAT, Start date: 10/15/12 19:36:00, Stop date: 10/15/12 19:36:00 IVP No Longer Active Bolanos 10/16/[address] [facility] promethazine 12.5 mg, Route: IVPB, ONCE, Dosing Weight 63.636, kg, Priority: STAT, Start date: 10/15/12 19:05:00, Stop date: 10/15/12 19:05:00 IVPB No Longer Active Bean 10/16/[address] [facility] morphine Sulfate 4 mg, 1 mL, Route: IVP, Drug form: INJ, ONCE, Dosing Weight 63.636, kg, Priority: STAT, Start date: 10/15/12 18:30:00, Stop date: 10/15/12 18:30:00 IVP No Longer Active Bean 10/15/[address] [facility] Reglan 10 mg, 2 mL, Route: IVP, Drug form: INJ, ONCE, Dosing Weight 63.636, kg, Priority: STAT, Start date: 10/15/12 18:30:00, Stop date: 10/15/12 18:30:00 IVP No Longer Active Bean 10/15/[address] [facility] Omnipaque 350mg/ml 95 mL, Route: IVP, Drug Form: SOLN, Dosing Weight 63.636, kg, ONCALL, STAT, Start date: 10/15/12 18:28:00, Duration: 1 doses or times, Dose=2.2ml/kg, Max [id number] -- "To be infused by Radiology Staff ONLY"Dose=2.2ml/kg, Max [id number] -- "To be infused by Radiology Staff ONLY" IVP No Longer Active Bean 10/15/[address] [facility] Insulin regular 12 unit, 0.12 mL, Route: SUB-Q, Drug form: SOLN, ONCE, Dosing Weight 63.636, kg, Priority: STAT, Start date: 10/15/12 18:27:00, Stop date: 10/15/12 18:27:00 SUB-Q No Longer Active Bean 10/15/[address] [facility] Sodium Chloride 0.9% (Bolus) IV 1,000 mL 1,000 mL, Rate: 1,000 ml/hr, Infuse over: 1 hr, Route: IV, Dosing Weight 63.636 kg, Total Volume: 1,000, Priority: STAT, Start date: 10/15/12 18:06:00, Duration: 1 doses or times, Stop date: 10/15/12 19:05:00, Bolus DoseBolus Dose IV No Longer Active Silva 10/15/[address] [facility]
--- NOTE | 2018-02-23 17:35 | Diagnostic Imaging Report ---
History: Vomiting, headache Comparison studies: None Technique: Axial images were obtained from the skull base to the vertex. Coronal and sagittal reconstructions obtained from the axial data. Dose modulation, iterative reconstruction, and/or weight based adjustment of the mA/kV was utilized to reduce the radiation dose to as low as reasonably achievable. Findings: Scalp/skull: No abnormalities. No fractures, blastic or lytic lesions. Extra-axial spaces: No masses. No fluid collections. Brain sulci: Mildly prominent for age. Ventricles: Prominent but normal in size and configuration. No hydrocephalus. Parenchyma: No abnormal densities. No masses, hemorrhage, acute or chronic cortical vascular insults. Sellar/suprasellar region: No abnormalities Craniocervical junction: Patent foramen magnum. No Chiari one malformation. IMPRESSION: No acute abnormalities. Signed by: Dr. Darek Love M.D. on 02/23/2018 5:31 PM
== END 2018-02-23 19:50 | disposition home or self-care (01) ==
LOC: ER 15:47
DX: S00.83XA Contusion of other part of head, initial encounter (principal); W01.198A Fall on same level from slipping, tripping and stumbling with subsequent striking against other object, initial encounter; Y92.008 Other place in unspecified non-institutional (private) residence as the place of occurrence of the external cause; I12.0 Hypertensive chronic kidney disease with stage 5 chronic kidney disease or end stage renal disease; E11.22 Type 2 diabetes mellitus with diabetic chronic kidney disease; N18.6 End stage renal disease; Z99.2 Dependence on renal dialysis; G40.909 Epilepsy, unspecified, not intractable, without status epilepticus
CPT/HCPCS: 70450; 99283

== ENCOUNTER 2018-02-27 13:09 | Emergency (ER) | payer OTHER ==
[~2018-02-27] VITALS: Ht 160 cm; Wt 52.2 kg
--- OUTSIDE RECORDS SUMMARY | 2018-02-27 13:14 | XMS REPORT | Clinical Summary ---
Author Author [facility] Organization [facility] Address Unknown Phone Unavailable Care Team Providers Care Paraplanner Name Role Phone Ger Mukherjee MD PCP [...] 2 (two) times a day with meals. 05/20/2018 Active cinacalcet (SENSIPAR) 30 Take 1 [...] Active minocycline Take 1 44 capsule 0 (MINOCIN,DYNACIN) 100 MG capsule (100 8 capsule mg total) by mouth every 12 (twelve) hours for 22 days. 03/12/2018 Active vancomycin (VANCOCIN) Infuse 1,000 1 each 0 IVPB 1 gram ADD-Naselle mg into a 8 in 100 mLIndications: [...] mg by 0 MG tablet mouth daily. 02/25/2018 clonAZEPAM (KlonoPIN) 0.5 Take 1 tablet 14 tablet 0 MG tablet (0.5 mg 8 total) by mouth 2 (two) times a day as needed for seizures for up to 7 days. 02/25/2018 promethazine (PHENERGAN) Take 1 tablet 28 tablet 0 25 MG tablet (25 mg total) 8 by mouth every 6 (six) hours as needed for nausea or vomiting for up to 7 days. Active Problems Problem Noted Date Chest pain [...] Elevated brain natriuretic peptide (BNP) level 01/26/2018 [facility] General Internal Medicine - Encounter 02/18/2018 [...] unspecified CKD stage; Leg swelling; Anxiety 12/27/2017 [facility] General Internal Medicine - Encounter 01/03/2018 after 02/26/2017 Immunizations Name Dates Previously Given Next Due [...] Taken Vital Sign Reading 02/20/2018 2:16 AM DIRECTIONAL DRILLER Blood Pressure 130/73 02/20/2018 2:16 AM DIRECTIONAL DRILLER Pulse 97 02/19/2018 8:39 PM DIRECTIONAL DRILLER Temperature 36.5 C (97.7 F) 02/20/2018 2:16 AM DIRECTIONAL DRILLER Respiratory Rate 18 02/20/2018 2:16 AM DIRECTIONAL DRILLER Oxygen Saturation 98% - Inhaled Oxygen - Concentration 01/31/2018 11:01 AM CDT Weight 67.5 kg (148 lb 14.4 oz) 02/19/2018 8:52 PM DIRECTIONAL DRILLER Height 160 cm (5' 3") 01/31/2018 11:01 AM CDT Body Mass Index 26.38 Plan of Treatment Health Maintenance Due Date Last Done Comments DIABETIC RETINAL EYE EXAM 1987 MMR VACCINES (1 of 1 - 11/10/1988 Standard series) DIABETIC FOOT EXAM 11/10/1997 URINE MICROALBUMIN 11/10/1997 VARICELLA VACCINES (1 of 11/10/2000 2 - 2-dose adolescent series) HEPATITIS B VACCINES (1 11/10/2006 of 3 - Risk 3-dose series) CERVICAL CANCER SCREENING 11/10/2008 INFLUENZA VACCINE Completed 02/16/2018 IPV VACCINES Aged Out No longer eligible based on patient's age to complete this topic MENINGOCOCCAL VACCINE Aged Out No longer eligible based on patient's age to complete this topic Implants Device Identifier Shelf Expiration Date Model / Serial / Lot Implanted Type Area Manufactur er Defibrillators & Leads Defibrilla tors & Leads 10/12/2020 CS [id number] IM / / [id number] Set Cathztn Hmodial Lngtrm Accs Surgical N/A: N/A ARROW 15fr 24cm Edge Simplicity - Implants; [employer] [id number] Expanders; [employer] Implanted: 01/02/2018 (Quantity not Extenders; on file) Surgical Wires Procedures Comments Procedure Name Priority Date/Time Associated Diagnosis CT LUMBAR SPINE WO STAT 02/20/2018 CONTRAST 1:[address] HEAD WO CONTRAST STAT 02/20/2018 12:56 AM DIRECTIONAL DRILLER XR CHEST 1 VW PORTABLE STAT 02/20/2018 12:02 AM DIRECTIONAL DRILLER HCG QUALITATIVE, SERUM STAT 02/19/2018 SCREEN 11:45 PM DIRECTIONAL DRILLER PROTHROMBIN TIME WITH INR STAT 02/19/2018 10:39 PM DIRECTIONAL DRILLER PARTIAL THROMBOPLASTIN STAT 02/19/2018 TIME (PTT) 10:39 PM DIRECTIONAL DRILLER CREATINE KINASE, TOTAL STAT 02/19/2018 (CPK) 10:39 PM DIRECTIONAL DRILLER ESTIMATED GFR STAT 02/19/2018 10:39 PM DIRECTIONAL DRILLER B NATRIURETIC PEPTIDE STAT 02/19/2018 10:39 PM DIRECTIONAL DRILLER TROPONIN STAT 02/19/2018 10:39 PM DIRECTIONAL DRILLER BETA HYDROXYBUTYRATE STAT 02/19/2018 10:39 PM DIRECTIONAL DRILLER COMPREHENSIVE METABOLIC STAT 02/19/2018 PANEL 10:39 PM DIRECTIONAL DRILLER HC COMPLETE BLD COUNT STAT 02/19/2018 W/AUTO DIFF 10:39 PM DIRECTIONAL DRILLER ECG ED PRELIMINARY Routine 02/19/2018 INTERPRETATION 9:56 PM DIRECTIONAL DRILLER POC GLUCOSE Routine 02/19/2018 9:36 PM DIRECTIONAL DRILLER ECG 12-LEAD STAT 02/19/2018 9:07 PM DIRECTIONAL DRILLER POC GLUCOSE Routine 02/18/2018 1:46 PM DIRECTIONAL DRILLER POC GLUCOSE Routine 02/18/2018 12:19 PM DIRECTIONAL DRILLER POC GLUCOSE Routine 02/18/2018 7:44 AM DIRECTIONAL DRILLER POC GLUCOSE Routine 02/18/2018 7:03 AM DIRECTIONAL DRILLER POC GLUCOSE Routine 02/18/2018 1:28 AM DIRECTIONAL DRILLER POC GLUCOSE Routine 02/17/2018 9:13 PM DIRECTIONAL DRILLER POC GLUCOSE Routine 02/17/2018 5:37 PM DIRECTIONAL DRILLER ULTRAFILTRATION Routine 02/17/2018 5:07 PM DIRECTIONAL DRILLER POC GLUCOSE Routine 02/17/2018 3:38 PM DIRECTIONAL DRILLER POC GLUCOSE Routine 02/17/2018 1:24 PM DIRECTIONAL DRILLER POC GLUCOSE Routine 02/17/2018 12:14 PM DIRECTIONAL DRILLER POC GLUCOSE Routine 02/17/2018 9:43 AM DIRECTIONAL DRILLER POC GLUCOSE Routine 02/17/2018 8:01 AM DIRECTIONAL DRILLER SMEAR REVIEW Routine 02/17/2018 4:30 AM DIRECTIONAL DRILLER HC COMPLETE BLD COUNT Routine 02/17/2018 W/AUTO DIFF 4:30 AM DIRECTIONAL DRILLER POC GLUCOSE Routine 02/17/2018 4:14 AM DIRECTIONAL DRILLER ESTIMATED GFR Routine 02/17/2018 4:00 AM DIRECTIONAL DRILLER BASIC METABOLIC PANEL Routine 02/17/2018 4:00 AM DIRECTIONAL DRILLER POC GLUCOSE Routine 02/16/2018 11:06 PM DIRECTIONAL DRILLER POC GLUCOSE Routine 02/16/2018 8:45 PM DIRECTIONAL DRILLER POC GLUCOSE Routine 02/16/2018 6:20 PM DIRECTIONAL DRILLER POC GLUCOSE Routine 02/16/2018 5:35 PM DIRECTIONAL DRILLER HEMODIALYSIS Routine 02/16/2018 2:21 PM DIRECTIONAL DRILLER POC GLUCOSE Routine 02/16/2018 1:37 PM DIRECTIONAL DRILLER POC GLUCOSE Routine 02/16/2018 12:29 PM DIRECTIONAL DRILLER POC GLUCOSE Routine 02/16/2018 7:57 AM DIRECTIONAL DRILLER POC GLUCOSE Routine 02/15/2018 9:54 PM CDT [...] CDT ECHOCARDIOGRAM WITH Routine 01/29/2018 AGITATED SALINE (34613) 10:05 AM CDT POC GLUCOSE Routine 01/29/2018 [...] MMODE SPECTRAL 9:36 AM CDT COLOR DOPPLER ([id number]) POC GLUCOSE Routine 12/30/2017 7:43 AM CDT [...] 12-LEAD STAT 12/27/2017 9:43 PM CDT after 02/26/2017 Results * CT Lumbar Spine Wo Contrast (02/20/2018 1:01 AM DIRECTIONAL DRILLER) Narrative Performed At EXAMINATION: CT LUMBAR SPINE [...] acute osseous abnormality of the lumbar spine. [facility]-[id number] Procedure Note Hm Interface, Radiology Results Incoming - 02/20/2018 1:10 AM DIRECTIONAL DRILLER EXAMINATION: CT LUMBAR SPINE WO CONTRAST CLINICAL [...] acute osseous abnormality of the lumbar spine. [facility]-[id number] Performing Organization Address City/State/Zipcode Phone Number [facility] [address] [place] [address] * CT Head Wo Contrast (02/20/2018 12:56 AM DIRECTIONAL DRILLER) Only the most recent of 3 results [...] normal. IMPRESSION: No acute intracranial abnormality identified. [facility]-[id number] Procedure Note Hm Interface, Radiology Results Incoming - 02/20/2018 1:07 AM DIRECTIONAL DRILLER EXAMINATION: CT HEAD WO CONTRAST CLINICAL HISTORY: [...] normal. IMPRESSION: No acute intracranial abnormality identified. [facility]-[id number] Performing Organization Address City/State/Zipcode Phone Number [facility] [address] [place] [address] * XR Chest 1 Vw Portable (02/20/2018 12:02 AM DIRECTIONAL DRILLER) Only the most recent of 4 results within the time period is included. Narrative Performed At Examination:XR CHEST 1 VW PORTABLE NOEHMY Clinical History:Shortness of breath Comparison: 01/31/2018 Technique: [...] lung volume with vascular crowding or congestion. [facility]-[id number] Procedure Note Hm Interface, Radiology Results Incoming - 02/20/2018 12:08 AM DIRECTIONAL DRILLER Examination: XR CHEST 1 VW PORTABLE Clinical [...] lung volume with vascular crowding or congestion. [facility]-[id number] Performing Organization Address City/[facility]/Zipcode Phone Number [address] [address] * hCG qualitative, serum screen (02/19/2018 11:45 PM DIRECTIONAL DRILLER) Only the most recent of 2 results within the time period is included. hCG qualitative, serum NegativeComment: Sensitivity [facility] DEPARTMENT OF of HCG test: 25 mIU/mL PATHOLOGY AND GENOMIC MEDICINE Specimen Blood Performing Organization Address [facility] Phone Number [facility] DEPARTMENT OF [address] [place] [address] PATHOLOGY AND GENOMIC MEDICINE * Estimated GFR (02/19/2018 10:39 PM DIRECTIONAL DRILLER) Only the most recent of 18 results within the time period is included. Estimated GFR 10 (A) mL/min/1.[address] [facility] DEPARTMENT OF Comment: PATHOLOGY AND [employer] GENOMIC MEDICINE rpretation G1 >=90 Normal or high G2 60-89Mildly decreased P8l80-20 Mildly to moderately decreased W0l50-24 Moderately to severely decreased G4 15-29Severely decreased G5 <15Kidney failure The eGFR was calculated using the Chronic Kidney Disease Epidemiology Collaboration (CKD-EPI) equation. Interpretation is based on recommendations of the National Kidney Foundation-Kidney Disease Outcomes Quality Initiative (NKF-KDOQI) published in 2014. Specimen Plasma specimen Performing Organization Address City/[facility] Hospital[facility] Phone Number [facility] DEPARTMENT OF [address] [place] [address] PATHOLOGY AND GENOMIC MEDICINE * Beta hydroxybutyrate (02/19/2018 10:39 PM DIRECTIONAL DRILLER) Beta hydroxybutyrate 0.07 0.02 - 0.27 mmol/L [facility] DEPARTMENT OF PATHOLOGY AND [employer] MEDICINE Specimen Serum Performing Organization Address [facility] [place] [address] PATHOLOGY AND [employer] [facility] * Troponin (02/19/2018 10:39 PM DIRECTIONAL DRILLER) Only the most recent of 7 results within the time period is included. Troponin <0.30 0.00 - 0.30 ng/mL [facility] DEPARTMENT OF Comment: PATHOLOGY AND 0.30 - 1.49 GENOMIC MEDICINE ng/mlMay indicate increased risk of acute coronary syndrome. >=1.5 ng/ml Consistent with acute myocardial infarction. The diagnostic value of a single normal or non-diagnostic result is questionable.Serial samples at 2-6 hour intervals are required to rule out acute myocardial injury. Specimen Plasma specimen Performing Organization Address [facility] [place] [address] PATHOLOGY AND [employer] [facility] * Partial thromboplastin time, activated (02/19/2018 10:39 PM DIRECTIONAL DRILLER) Only the most recent of 4 results within the time period is included. PTT 44.7 (H) 23.0 - 36.[address] [facility] DEPARTMENT OF Comment: PATHOLOGY AND PTT therapeutic range for [facility] unfractionated heparin is 61.0-112.0 seconds which corresponds to Anti-Xa 0.3-0.7 U/ml. Specimen Blood Performing Organization Address [facility] [place] [address] PATHOLOGY AND [employer] [facility] * Prothrombin time with INR (02/19/2018 10:39 PM DIRECTIONAL DRILLER) Only the most recent of 4 results within the time period is included. Prothrombin time 15.7 (H) 11.5 - 14.[address] [facility] DEPARTMENT OF PATHOLOGY AND [employer] MEDICINE INR 1.3 [facility] DEPARTMENT OF Comment: PATHOLOGY AND The International Normalized [facility] MEDICINE Ratio (INR) is a therapeutic monitoring tool for patients who are stable on oral anticoagulant therapy. An INR of 2.0-3.0 is suggested for deep vein thrombosis/pulmonary embolism. Specimen Blood Performing Organization Address [facility] Phone Number [address] [place] [address] PATHOLOGY AND GENOMIC MEDICINE * CBC with platelet and differential (02/19/2018 10:39 PM DIRECTIONAL DRILLER) Only the most recent of 13 results within the time period is included. WBC 5.22 4.50 - 11.00 k/uL [facility] DEPARTMENT OF PATHOLOGY AND GENOMIC MEDICINE RBC 4.05 (L) 4.20 - 5.50 m/uL [facility] DEPARTMENT OF PATHOLOGY AND GENOMIC MEDICINE HGB 11.5 (L) 12.0 - 16.0 g/dL [facility] DEPARTMENT OF PATHOLOGY AND GENOMIC MEDICINE HCT 39.6 37.0 - 47.0 % [facility] DEPARTMENT OF PATHOLOGY AND GENOMIC MEDICINE MCV 97.8 82.0 - 100.[address] [facility] DEPARTMENT OF PATHOLOGY AND GENOMIC MEDICINE MCH 28.4 27.0 - 34.[address] [facility] DEPARTMENT OF PATHOLOGY AND GENOMIC MEDICINE MCHC 29.0 (L) 31.0 - 37.0 g/dL [facility] DEPARTMENT OF PATHOLOGY AND GENOMIC MEDICINE RDW - SD 65.5 (H) 37.0 - 55.[address] [facility] DEPARTMENT OF PATHOLOGY AND GENOMIC MEDICINE MPV 10.4 8.8 - 13.[address] [facility] DEPARTMENT OF PATHOLOGY AND GENOMIC MEDICINE Platelet count 147 (L) 150 - 400 k/uL [facility] DEPARTMENT OF PATHOLOGY AND GENOMIC MEDICINE Nucleated RBC 0.00 /[address] [facility] DEPARTMENT OF PATHOLOGY AND GENOMIC MEDICINE Neutrophils 71.7 (H) 39.0 - 69.0 % [facility] DEPARTMENT OF PATHOLOGY AND GENOMIC MEDICINE Lymphocytes 17.6 (L) 25.0 - 45.0 % [facility] DEPARTMENT OF PATHOLOGY AND GENOMIC MEDICINE Monocytes 8.0 0.0 - 10.0 % [facility] DEPARTMENT OF PATHOLOGY AND GENOMIC MEDICINE Eosinophils 1.7 0.0 - 5.0 % [facility] DEPARTMENT OF PATHOLOGY AND GENOMIC MEDICINE Basophils 0.6 0.0 - 1.0 % [facility] DEPARTMENT OF PATHOLOGY AND GENOMIC MEDICINE Immature granulocytes 0.4Comment: "Immature 0.0 - 1.0 % [facility] DEPARTMENT OF granulocytes" (promyelocytes, PATHOLOGY AND myelocytes, metamyelocytes) [facility] MEDICINE Specimen Blood Performing Organization Address City/State/Zipcode Phone Number [address] [address] PATHOLOGY AND GENOMIC MEDICINE * B natriuretic peptide (02/19/2018 10:39 PM DIRECTIONAL DRILLER) Only the most recent of 4 results within the time period is included. BNP 506 (H) 0 - 100 pg/mL [facility] DEPARTMENT OF PATHOLOGY AND GENOMIC MEDICINE Specimen Blood Performing Organization Address City/[facility] Phone Number [address] [address] PATHOLOGY AND GENOMIC MEDICINE * Creatine kinase, total (CPK) (02/19/2018 10:39 PM DIRECTIONAL DRILLER) Creatine kinase 40 26 - 192 U/L [facility] DEPARTMENT OF PATHOLOGY AND GENOMIC MEDICINE Specimen Plasma specimen Performing Organization Address City/[facility] Phone Number [address] [address] PATHOLOGY AND GENOMIC MEDICINE * Comprehensive metabolic panel (02/19/2018 10:39 PM DIRECTIONAL DRILLER) Only the most recent of 8 results within the time period is included. Sodium 137 135 - 148 mEq/L [facility] DEPARTMENT OF PATHOLOGY AND GENOMIC MEDICINE Potassium 3.9 3.5 - 5.0 mEq/L [facility] DEPARTMENT OF PATHOLOGY AND GENOMIC MEDICINE Chloride 98 98 - 112 mEq/L [facility] DEPARTMENT OF PATHOLOGY AND GENOMIC MEDICINE CO2 20 (L) 24 - 31 mEq/L [facility] DEPARTMENT OF PATHOLOGY AND GENOMIC MEDICINE Anion gap 19@ANIO (H) 7 - 15 mEq/L [facility] DEPARTMENT OF PATHOLOGY AND GENOMIC MEDICINE BUN 35 (H) 6 - 20 mg/dL [facility] DEPARTMENT OF PATHOLOGY AND GENOMIC MEDICINE Creatinine 5.83 (H) 0.50 - 0.90 mg/dL [facility] DEPARTMENT OF PATHOLOGY AND GENOMIC MEDICINE Glucose 138 (H) 65 - 99 mg/dL [facility] DEPARTMENT OF PATHOLOGY AND GENOMIC MEDICINE Calcium 9.0 8.3 - 10.2 mg/dL [facility] DEPARTMENT OF PATHOLOGY AND GENOMIC MEDICINE Protein 8.5 (H) 6.3 - 8.3 g/dL [facility] DEPARTMENT OF Comment: PATHOLOGY AND [place] GENOMIC MEDICINE 4.6-7.0 g/dL 1 week 4.4-7.6 g/dL 7 months-1year 5.1-7.3 g/dL 1-2 years5.6-7 .5 g/dL >3 years6.0-8 .0 g/dL 18-150 6.3-8.3 g/dL Albumin 2.6 (L) 3.5 - 5.0 g/dL [facility] DEPARTMENT OF PATHOLOGY AND GENOMIC MEDICINE A/G ratio 0.4 (L) 0.7 - 3.8 [facility] DEPARTMENT OF PATHOLOGY AND GENOMIC MEDICINE Alkaline phosphatase 205 (H) 35 - 104 U/L [facility] DEPARTMENT OF PATHOLOGY AND GENOMIC MEDICINE AST 29 10 - 35 U/L [facility] DEPARTMENT OF PATHOLOGY AND GENOMIC MEDICINE ALT 25 5 - 50 U/L [facility] DEPARTMENT OF PATHOLOGY AND GENOMIC MEDICINE Total bilirubin 0.3 0.0 - 1.2 mg/dL [facility] DEPARTMENT OF PATHOLOGY AND GENOMIC MEDICINE Specimen Plasma specimen Performing Organization Address City/[facility] [place] [address] PATHOLOGY AND GENOMIC MEDICINE * ECG ED Preliminary Interpretation - NOT AN ORDER (02/19/2018 9:56 PM DIRECTIONAL DRILLER) Only the most recent of 2 results within the time period is included. Narrative Performed At Kourtney Sanchez MD 02/20/20185:40 PM ECG ED Preliminary Interpretation - Not an Order Performed by: KOURTNEY SANCHEZ Authorized by: KOURTNEY SANCHEZ ECG reviewed by ED Physician in the absence of a power press tender: yes Previous ECG: Previous ECG:Compared to current [...] normal * POC glucose (02/19/2018 9:36 PM DIRECTIONAL DRILLER) Only the most recent of 165 results within the time period is included. POC glucose 148 (H) 65 - 99 mg/dL [facility] DEPARTMENT OF Comment: PATHOLOGY AND No Action Needed GENOMIC MEDICINE Meter ID: [id number] Customs Opener Verifier Packer: Roel Dorsey Performing Organization Address City/[facility] Phone Number [facility] [place] [address] PATHOLOGY AND GENOMIC MEDICINE * ECG 12 lead (02/19/2018 9:07 PM DIRECTIONAL DRILLER) Only the most recent of 4 results within the time period is included. Ventricular rate 101 [facility] Atrial rate 101 [facility] OK interval 186 [facility] QRSD interval 100 [facility] QT interval 392 [facility] QTC interval 508 [facility] P axis [address] [facility] QRS axis 1 -9 [facility] T wave axis 75 [facility] EKG impression Sinus tachycardia-Nonspecific [facility] MUSE ST and T wave abnormality-Abnormal ECG-In automated comparison with ECG of 26-JAN-2018 23:47,-Nonspecific T wave abnormality no longer evident in Inferior leads-T wave inversion no longer evident in Lateral leads- Performing Organization Address City/[facility] Phone Number [facility] [address] [place] [phone] * Smear review (02/17/2018 4:30 AM DIRECTIONAL DRILLER) Platelet slide review Kenia adequate [facility] DEPARTMENT OF PATHOLOGY AND GENOMIC MEDICINE Anisocytosis Moderate [facility] DEPART[facility] OF PATHOLOGY AND GENOMIC MEDICINE Polychromasia Moderate [facility] DEPARTMENT OF PATHOLOGY AND GENOMIC MEDICINE Ovalocytes Moderate [facility] DEPARTMENT OF PATHOLOGY AND GENOMIC MEDICINE Performing Organization Address [facility] Phone Number [address] [address] PATHOLOGY AND GENOMIC MEDICINE * Basic metabolic panel (02/17/2018 4:00 AM DIRECTIONAL DRILLER) Only the most recent of 10 results within the time period is included. Sodium 136 135 - 148 mEq/L [facility] DEPARTMENT OF PATHOLOGY AND GENOMIC MEDICINE Potassium 4.8 3.5 - 5.0 mEq/L [facility] DEPARTMENT OF PATHOLOGY AND GENOMIC MEDICINE Chloride 97 (L) 98 - 112 mEq/L [facility] DEPARTMENT OF PATHOLOGY AND GENOMIC MEDICINE CO2 22 (L) 24 - 31 mEq/L [facility] DEPARTMENT OF PATHOLOGY AND GENOMIC MEDICINE Anion gap 17@ANIO (H) 7 - 15 mEq/L [facility] DEPARTMENT OF PATHOLOGY AND GENOMIC MEDICINE BUN 32 (H) 6 - 20 mg/dL [facility] DEPARTMENT OF PATHOLOGY AND GENOMIC MEDICINE Creatinine 5.52 (H) 0.50 - 0.90 mg/dL [facility] DEPARTMENT OF PATHOLOGY AND GENOMIC MEDICINE Glucose 72 65 - 99 mg/dL [facility] DEPARTMENT OF PATHOLOGY AND GENOMIC MEDICINE Calcium 8.8 8.3 - 10.2 mg/dL [facility] DEPARTMENT OF PATHOLOGY AND GENOMIC MEDICINE Specimen Plasma specimen Performing Organization Address [facility] Phone Number [address] [address] PATHOLOGY AND GENOMIC MEDICINE * CT Angiogram [...] axillary lymphadenopathy, stable when compared to prior. [facility]-[id number] Procedure Note Interface, Radiology Results Incoming - 02/14/2018 7:17 PM [...] axillary lymphadenopathy, stable when compared to prior. [facility]-[id number] Performing Organization Address City/State/Zipcode Phone Number [facility] [address] [place] [address] * Magnesium level (02/14/2018 12:00 PM CDT) Only the most recent of 3 results within the time period is included. Magnesium 2.5 1.6 - 2.6 mg/dL [facility] DEPARTMENT OF PATHOLOGY AND GENOMIC MEDICINE Specimen Plasma specimen Performing Organization Address City/[facility]/Zipcode Phone Number [address] [address] PATHOLOGY AND GENOMIC MEDICINE * Phosphorus level (02/10/2018 4:56 AM CDT) Only the most recent of 2 results within the time period is included. Phosphorus 2.1 (L) 2.4 - 4.5 mg/dL [facility] DEPARTMENT OF PATHOLOGY AND GENOMIC MEDICINE Specimen Plasma specimen Performing Organization Address City/[facility] [place] [address] PATHOLOGY AND GENOMIC MEDICINE * Free phenytoin level (02/10/2018 4:56 AM CDT) Phenytoin, free 0.49 (L) 1.00 - 2.00 ug/mL [facility] DEPARTMENT OF PATHOLOGY AND GENOMIC MEDICINE Specimen Blood Performing Organization Address [facility] Phone Number [facility] [address] PATHOLOGY AND GENOMIC MEDICINE * Phenytoin level (02/10/2018 4:56 AM CDT) Only the most recent of 4 results within the time period is included. Phenytoin 3.5 (L) 10.0 - 20.0 ug/mL [facility] DEPARTMENT OF Comment: PATHOLOGY AND Therapeutic Range: GENOMIC MEDICINE 10 - 20 ug/mL Specimen Plasma specimen Performing Organization Address [facility] Phone Number [facility] [address] PATHOLOGY AND GENOMIC MEDICINE * Sedimentation rate (02/08/2018 3:30 PM CDT) Only the most recent of 2 results within the time period is included. Sedimentation rate 38 (H) 0 - 20 mm/hr [facility] DEPARTMENT OF PATHOLOGY AND GENOMIC MEDICINE Specimen Blood Performing Organization Address [facility] Phone Number [facility] [address] PATHOLOGY AND GENOMIC MEDICINE * C-reactive protein (02/08/2018 11:54 AM CDT) Only the most recent of 2 results within the time period is included. CRP 0.43 0.00 - 0.50 mg/dL [facility] DEPARTMENT OF PATHOLOGY AND GENOMIC MEDICINE Specimen Plasma specimen Performing Organization Address [facility] Phone Number [facility] [address] PATHOLOGY AND GENOMIC MEDICINE * MRI Shoulder [...] SOFT TISSUES: Extensive periarticular soft tissue edema. [facility]-[id number] Procedure Note Interface, Radiology Results Incoming - [...] SOFT TISSUES: Extensive periarticular soft tissue edema. [facility]-[id number] Performing Organization Address City/State/Zipcode Phone Number [facility] [address] [place] [address] * MRI Cervical Spine Wo Contrast (02/07/2018 [...] IMPRESSION: No significant cervical spine abnormality identified. [facility]-[id number] Procedure Note Hm Interface, Radiology Results Incoming [...] IMPRESSION: No significant cervical spine abnormality identified. [facility]-[id number] Performing Organization Address [facility]/Zipcode Phone Number [facility] [address] [place] [address] * MRI Brain Wo Contrast (02/07/2018 11:50 AM CDT) Narrative Performed At EXAMINATION:MRI BRAIN WO CONTRAST [facility] [facility] CLINICAL HISTORY:STROKE COMPARISON:CT of the head dated [...] are unremarkable. IMPRESSION: No acute intracranial abnormality. [facility]-[id number] Procedure Note Interface, Radiology Results Incoming - [...] are unremarkable. IMPRESSION: No acute intracranial abnormality. [facility]-[id number] Performing Organization Address [facility] Phone Number [facility] [address] [place] [address] * NM Bone Scan 3 Phase (02/05/2018 1:20 PM CDT) Narrative Performed At PROCEDURE:NM BONE SCAN 3 PHASE [facility] INDICATION:Osteomyelitis of left shoulder. COMPARISON:CT scan of [...] suggest osteomyelitis involving the proximal left humerus. [facility]-[id number] Procedure Note Interface, Radiology Results Incoming - 02/05/2018 1:36 PM [...] suggest osteomyelitis involving the proximal left humerus. [facility]-[id number] Performing Organization Address City/State/Zipcode Phone Number [facility] [address] [place] [address] * CBC hemogram (02/04/2018 11:30 AM CDT) Only the most recent of 3 results within the time period is included. WBC 3.45 (L) 4.50 - 11.00 k/uL [facility] DEPARTMENT OF PATHOLOGY AND GENOMIC MEDICINE RBC 3.26 (L) 4.20 - 5.50 m/uL [facility] DEPARTMENT OF PATHOLOGY AND GENOMIC MEDICINE HGB 9.0 (L) 12.0 - 16.0 g/dL [facility] DEPARTMENT OF PATHOLOGY AND GENOMIC MEDICINE HCT 31.3 (L) 37.0 - 47.0 % [facility] DEPARTMENT OF PATHOLOGY AND GENOMIC MEDICINE MCV 96.0 82.0 - 100.[address] [facility] DEPARTMENT OF PATHOLOGY AND GENOMIC MEDICINE MCH 27.6 27.0 - 34.[address] [facility] DEPARTMENT OF PATHOLOGY AND GENOMIC MEDICINE MCHC 28.8 (L) 31.0 - 37.0 g/dL [facility] DEPARTMENT OF PATHOLOGY AND GENOMIC MEDICINE RDW - SD 61.7 (H) 37.0 - 55.[address] [facility] DEPARTMENT OF PATHOLOGY AND GENOMIC MEDICINE MPV 10.8 8.8 - 13.[address] [facility] DEPARTMENT OF PATHOLOGY AND GENOMIC MEDICINE Platelet count 142 (L) 150 - 400 k/uL [facility] DEPARTMENT OF PATHOLOGY AND GENOMIC MEDICINE Nucleated RBC 0.00 /[address] [facility] DEPARTMENT OF PATHOLOGY AND GENOMIC MEDICINE Specimen Blood Performing Organization Address City/State/[facility] Phone Number [address] [address] PATHOLOGY AND GENOMIC MEDICINE * Urine drugs of abuse screen (02/02/2018 1:41 PM CDT) Only the most recent of 2 results within the time period is included. Amphetamine screen, urine Negative [facility] DEPARTMENT OF PATHOLOGY AND GENOMIC MEDICINE Barbiturate screen, urine Negative [facility] DEPARTMENT OF PATHOLOGY AND GENOMIC MEDICINE Benzodiazepine screen, Negative [facility] DEPARTMENT OF urine PATHOLOGY AND GENOMIC MEDICINE Cannabinoid screen, urine Negative [facility] DEPARTMENT OF PATHOLOGY AND GENOMIC MEDICINE Cocaine screen, urine Negative [facility] DEPARTMENT OF PATHOLOGY AND GENOMIC MEDICINE Methadone metabolite Negative [facility] DEPARTMENT OF (EDDP), urine PATHOLOGY AND GENOMIC MEDICINE Opiates screen, urine Positive (A) [facility] DEPARTMENT OF PATHOLOGY AND GENOMIC MEDICINE Oxycodone screen, urine Negative [facility] DEPARTMENT OF PATHOLOGY AND GENOMIC MEDICINE Phencyclidine screen, Negative [facility] DEPARTMENT OF urine PATHOLOGY AND GENOMIC MEDICINE Tricyclic screen, urine Negative [facility] DEPARTMENT OF Comment: PATHOLOGY AND Drug screen minimum GENOMIC MEDICINE concentration of detectability Amphetamines 1000 ng/mL Barbiturates [...] purposes only. Specimen Urine Performing Organization Address City/State/Zipcode Phone Number [place] [phone] PATHOLOGY AND GENOMIC MEDICINE * Urinalysis, automated with microscopy (02/02/2018 1:41 PM CDT) Color, UA Dark Yellow [facility] DEPARTMENT OF PATHOLOGY AND GENOMIC MEDICINE Appearance, UA Hazy [facility] DEPARTMENT OF PATHOLOGY AND GENOMIC MEDICINE Specific gravity, UA 1.019 1.001 - 1.035 [facility] DEPARTMENT OF PATHOLOGY AND GENOMIC MEDICINE pH, UA 5.0 5.0 - 8.5 [facility] DEPARTMENT OF PATHOLOGY AND GENOMIC MEDICINE Protein, UA 2+ (A) Negative [facility] DEPARTMENT OF PATHOLOGY AND GENOMIC MEDICINE Glucose, UA Negative Negative [facility] DEPARTMENT OF PATHOLOGY AND GENOMIC MEDICINE Ketones, UA Negative Negative [facility] DEPARTMENT OF PATHOLOGY AND GENOMIC MEDICINE Bilirubin, UA Negative Negative [facility] DEPARTMENT OF PATHOLOGY AND GENOMIC MEDICINE Blood, UA Small (A) Negative [facility] DEPARTMENT OF PATHOLOGY AND GENOMIC MEDICINE Nitrite, UA Negative Negative [facility] DEPARTMENT OF PATHOLOGY AND GENOMIC MEDICINE Urobilinogen, UA <2.0 <[address]0 [facility] DEPARTMENT OF PATHOLOGY AND GENOMIC MEDICINE Leukocyte esterase, UA Moderate (A) Negative [facility] DEPARTMENT OF PATHOLOGY AND GENOMIC MEDICINE Epithelial cells, UA 3 /HPF [facility] DEPARTMENT OF PATHOLOGY AND GENOMIC MEDICINE WBC, UA 85 (H) 0 - 4 /HPF [facility] DEPARTMENT OF PATHOLOGY AND GENOMIC MEDICINE RBC, UA 4 0 - 5 /HPF [facility] DEPARTMENT OF PATHOLOGY AND GENOMIC MEDICINE Bacteria, UA Few None seen [facility] DEPARTMENT OF PATHOLOGY AND GENOMIC MEDICINE Hyaline casts, UA >20 (A) /LPF [facility] DEPARTMENT OF PATHOLOGY AND GENOMIC MEDICINE Yeast, UA None seen [facility] DEPARTMENT OF PATHOLOGY AND GENOMIC MEDICINE Yeast with pseudohyphae, None seen [facility] PATHOLOGY AND GENOMIC MEDICINE Specimen Urine Performing Organization Address City/[facility]/Zipcode Phone Number [address] [address] PATHOLOGY AND GENOMIC MEDICINE * XR Abdomen 1 Vw Portable (01/31/2018 8:11 PM CDT) Narrative Performed At EXAMINATION:XR ABDOMEN 1 VW PORTABLE [facility] CLINICAL HISTORY:vomiting COMPARISON:None. IMPRESSION: Moderate amount retained stool in colon There is a nonspecific bowel gas pattern. No free air is identified. Gallbladder has been removed [facility]-[id number] Procedure Note Interface, Radiology Results Incoming - 01/31/2018 8:16 PM CDT EXAMINATION: XR ABDOMEN 1 VW PORTABLE CLINICAL HISTORY: vomiting COMPARISON: None. IMPRESSION: Moderate amount retained stool in colon There is a nonspecific bowel gas pattern. No free air is identified. Gallbladder has been removed [facility]-[id number] Performing Organization Address City/State/Zipcode Phone Number [facility] [address] [place] [address] * EEG (routine) (01/31/2018 1:55 PM CDT) [...] at 01/31/2018 12:04 PM who verbalized understanding. [facility]-[id number] Procedure Note Hm Interface, Radiology Results Incoming [...] at 01/31/2018 12:04 PM who verbalized understanding. [facility]-[id number] Performing Organization Address City/[facility]/[place] [address] * Arterial blood gas (01/31/2018 8:23 AM CDT) pH, arterial 7.40 7.35 - 7.45 [facility] DEPARTMENT OF PATHOLOGY AND GENOMIC MEDICINE pCO2, arterial 38 35 - [address] [facility] DEPARTMENT OF PATHOLOGY AND GENOMIC MEDICINE pO2, arterial 143 (H) 80 - [address] [facility] DEPARTMENT OF PATHOLOGY AND GENOMIC MEDICINE Bicarbonate, arterial 22.6 21.0 - 28.0 mmol/L [facility] DEPARTMENT OF PATHOLOGY AND GENOMIC MEDICINE Base excess, arterial -1 -2 - 2 mEq/L [facility] DEPARTMENT OF PATHOLOGY AND GENOMIC MEDICINE O2 saturation, arterial 100 95 - 100 % [facility] DEPARTMENT OF PATHOLOGY AND GENOMIC MEDICINE Specimen Blood Performing Organization Address City/[facility] Phone Number [place] [phone] PATHOLOGY AND GENOMIC [facility] * Manual differential (01/31/2018 8:22 AM CDT) Manual differential PERFORMED [facility] DEPARTMENT OF PATHOLOGY AND GENOMIC MEDICINE Neutrophils 90.0 (H) 39.0 - 69.0 % [facility] DEPARTMENT OF PATHOLOGY AND GENOMIC MEDICINE Lymphocytes 7.0 (L) 25.0 - 45.0 % [facility] DEPARTMENT OF PATHOLOGY AND GENOMIC MEDICINE Monocytes 1.0 0.0 - 10.0 % [facility] DEPARTMENT OF PATHOLOGY AND GENOMIC MEDICINE Eosinophils 2.0 0.0 - 5.0 % [facility] DEPARTMENT OF PATHOLOGY AND GENOMIC MEDICINE Basophils 0.0 0.0 - 1.0 % [facility] DEPARTMENT OF PATHOLOGY AND GENOMIC MEDICINE Metamyelocytes 0 % [facility] DEPARTMENT OF PATHOLOGY AND GENOMIC MEDICINE Promyelocytes 0 % [facility] DEPARTMENT OF PATHOLOGY AND GENOMIC MEDICINE Platelet slide review Kenia slt decr [facility] DEPARTMENT OF PATHOLOGY AND GENOMIC MEDICINE Anisocytosis Moderate [facility] DEPARTMENT OF PATHOLOGY AND GENOMIC MEDICINE Polychromasia Moderate [facility] DEPARTMENT OF PATHOLOGY AND GENOMIC MEDICINE Ovalocytes Moderate [facility] DEPARTMENT OF PATHOLOGY AND GENOMIC MEDICINE Enlarged platelets Moderate (A) [facility] DEPARTMENT OF PATHOLOGY AND GENOMIC MEDICINE Narrative Performed At [facility] and reab back to Ophelia Quevedo at 01/31/18 08:[email or web address] [facility] DEPARTMENT OF PATHOLOGY AND GENOMIC MEDICINE Performing Organization Address City/[facility] Phone Number [facility] DEPARTMENT OF [address] [place] [address] PATHOLOGY AND GENOMIC MEDICINE * Lactic acid level (01/31/2018 8:22 AM CDT) Only the most recent of 2 results within the time period is included. Lactic acid 1.2 0.5 - 2.2 mmol/L [facility] DEPARTMENT OF PATHOLOGY AND GENOMIC MEDICINE Specimen Blood Performing Organization Address [facility] [place] [address] PATHOLOGY AND [facility] MEDICINE * EEG (routine) (01/29/2018 12:16 PM [...] (01/29/2018 10:05 AM CDT) Narrative Performed At [facility] Echocardiography Report [address] [facility] [address]Name:SONAM BERMEO.ID:[id number] .Date: 01/29/2018Refer.MD:REGINALD FIGUEROA MD Exam Time: 9:20:00 AMStudy Type:Routine Echo Height:63inWeight:148lb BSA: 1.7 e2TUCIeu:1985,32Y Sex: FEMALEBP:140/97 HR:101 bpm Sonogrphr: Dale Issa RDCS Pat. Stat.:Inpatient Room:[facility] 1003A Study Status:Final Echo Event ID:[id number] Order ID:[id number] Reason for Study:Stroke History / Clinical:Congestive Heart [...] RAPof 10 mmHg. MEASUREMENTS: 2D Parasternal [place] LVOT 1.9 cmLA Ds3.1 cm LVIDd4.9 cmIndex2.9 [...] 4.8 cm EF Biplane HR 103 bpm RBC288.4 ml CO 2.5 l/min SV49.1 ml MHD259.6 mlEF29.5 % DOPPLER LVOT Stroke Vol LVOT 1.9 cmLVOT CO3 l/min LVOT TVI10.4 cmLVOT CI1.8 l/m/m2 LVOT Tm254 msecHR 103 bpm LVOT SV 29.5 ml MA For Flow/Valve Assess MA TVI 141.6 cm Signed 01/30/2018 12:21 AM Santana Redding M.D. Procedure Note Interface, Radiology Results In - 01/30/2018 12:21 AM CDT Echocardiography Report [address] [place] [address] Pat.Name: SONAM BERMEO Pat.ID: [id number] .Date: 01/29/2018 Refer.MD: REGINALD FIGUEROA MD Exam Time: 9:20:00 AM Study Type:Routine Echo Height: 63in Weight: 148lb BSA: 1.7 m2 Age: 9 1985,32Y Sex: FEMALE BP: 140/97 HR: 101 bpm Sonogrphr: Dale Issa RDCS Pat. Stat.:Inpatient Room: [address] Study Status:Final Echo Event ID:[id number] Order ID: [id number] Reason for Study:Stroke History / Clinical:Congestive Heart [...] of 10 mmHg. MEASUREMENTS: 2D Parasternal [place] LVOT 1.9 cm LA Ds 3.1 cm [...] AM Santana Redding M.D. Performing Organization Address City/State/Zipcode Phone Number [facility] [address] [place] [address] * CTA Neck W Wo Contrast (01/28/2018 [...] no significant carotid or vertebral artery stenosis. [facility]-[id number] Procedure Note Interface, Radiology Results Incoming - [...] no significant carotid or vertebral artery stenosis. [facility]-[id number] Performing Organization Address City/State/Zipcode Phone Number [facility] [address] [place] [address] * Lipid panel (01/28/2018 6:47 PM CDT) Cholesterol 117 <200 mg/dL [facility] DEPARTMENT OF PATHOLOGY AND GENOMIC MEDICINE Triglycerides 92 <150 mg/dL [facility] DEPARTMENT OF PATHOLOGY AND GENOMIC MEDICINE HDL cholesterol 50 >40 mg/dL [facility] DEPARTMENT OF PATHOLOGY AND GENOMIC MEDICINE LDL cholesterol 64Comment: Result obtained by <100 mg/dL [facility] DEPARTMENT OF direct LDL measurement PATHOLOGY AND GENOMIC MEDICINE Lipid panel SeeBelow [facility] DEPARTMENT OF interpretation Comment: PATHOLOGY AND [...] specimen Performing Organization Address City/State/Zipcode Phone Number [facility] DEPARTMENT OF [address] [place] [address] PATHOLOGY AND GENOMIC MEDICINE * CT Upper Extremity Wo Left (01/28/2018 6:27 PM CDT) Only the most recent of 2 results within the time period is included. Narrative Performed At EXAMINATION:CT UPPER EXTREMITY WO LEFT [facility] CLINICAL HISTORY:Fracturehumerus TECHNIQUE:Axial images ofleft humerus [...] humeral head suspicious for extension of osteomyelitis. [facility]-[id number] Procedure Note Hm Interface, Radiology Results Incoming - 01/28/2018 7:10 [...] humeral head suspicious for extension of osteomyelitis. [facility]-[id number] Performing Organization Address City/State/Zipcode Phone Number [facility] [address] [place] [address] * CTA Head W Wo Contrast (01/28/2018 5:30 PM CDT) Narrative Performed At EXAM: CT ANGIOGRAM HEAD W WO CONTRAST [facility] CLINICAL HISTORY: STROKE TECHNIQUE:Imaging of the intracranial [...] aneurysmal dilatation or vascular malformation of the [place]. The major dural sinuses are opacified normally. There are no gross brain parenchymal abnormalities. There is no midline shift, hydrocephalus or extra-axial fluid collection. Soft tissue shows no evidence of laceration or hematoma. There is no air-fluid level in the sinuses. Osseous calvarium is intact. IMPRESSION: 1.No hemodynamically significant narrowing of the [place] vessels. [facility]-[id number] Procedure Note [facility], Radiology Results Incoming - 01/28/2018 7:49 PM [...] aneurysmal dilatation or vascular malformation of the [place]. The major dural sinuses are opacified normally. There are no gross brain parenchymal abnormalities. There is no midline shift, hydrocephalus or extra-axial fluid collection. Soft tissue shows no evidence of laceration or hematoma. There is no air-fluid level in the sinuses. Osseous calvarium is intact. IMPRESSION: 1. No hemodynamically significant narrowing of the [place] vessels. [facility]-[id number] Performing Organization Address City/State/Zipcode Phone Number [facility] [address] [place] [address] * CT Chest Wo Contrast (01/28/2018 4:55 PM CDT) Narrative Performed At EXAMINATION: HM [facility] CT CHEST WO CONTRAST CLINICAL HISTORY: sob [...] is enlarged. 5.Left proximal humeral fracture reidentified. [facility]-[id number] Procedure Note Interface, Radiology Results Incoming - [...] enlarged. 5. Left proximal humeral fracture reidentified. [facility]-[id number] Performing Organization Address City/[facility]/Zipcode Phone Number [facility] [address] [place] [address] * Keppra (Levetiracetam) level (01/28/2018 8:00 AM CDT) Levetiracetam 16 12 - 46 ug/mL [facility] Comment: INTERPRETIVE INFORMATION: Keppra (Levetiracetam) Therapeutic Range:12-46 ug/mL Toxic: Not well Established Pharmacokinetics of levetiracetam are affected by renal function. Adverse effects may include somnolence, weakness, headache and vomiting. This levetiracetam (Keppra) immunoassay uses the [employer] reagents, which has known cross-reactivity with the drug brivaracetam (Briviact) and may report inaccurate results. Patients transitioning from levetiracetam to brivaracetam or those who are using both medications should not monitor drug concentrations with the [employer] assay. These patients should be monitored using a validated chromatographic methodology that distinguishes between drugs to determine drug concentrations. Performed by [facility], [address] [place], [place] [id number] [email or web address], Boby Brito MD - Lab. Director Specimen Serum Performing Organization Address [facility] Phone Number [facility] [address] [place] [address] * Transfuse RBC (01/27/2018 9:20 PM CDT) Only the most recent of 5 results within the time period is included. * Hepatitis B surface antigen (01/27/2018 6:20 PM CDT) Only the most recent of 2 results within the time period is included. Hepatitis B surface Ag Non-reactive Non-reactive [facility] DEPARTMENT OF PATHOLOGY AND GENOMIC MEDICINE Specimen Blood Performing Organization Address City/[facility]/Zipcode Phone Number [facility] DEPARTMENT OF [address] [place] [address] PATHOLOGY AND GENOMIC MEDICINE * Pv duplex venous upper extremity (01/27/2018 2:47 PM CDT) Only the most recent of 2 results within the time period is included. Narrative Performed At [facility] Upper Extremity Venous Report [address] [facility] [address], [place] [address] Pat.Name:SONAM BERMEO Pat.ID:[id number] .Date: 01/27/2018Refer.MD:REGINALD FIGUEROA MD Exam Time: 2:29:00 PMStudy Type:UE Venous DOBAge:1985,32Y Sex: FEMALE Sonogrphr: KATHY Robertson RCS Pat. Stat.:Inpatient Room:[place] [address] TapeVol: PATRICIA CPT - 4: 96551 Echo Event ID:[id number] Order ID:[id number] Reason for Study:Left arm swelling and pain, [...] 01/27/2018 06:56 PM Caleb Pulliam MD, VI Procedure Note Interface, Radiology Results In - 01/27/2018 6:56 PM CDT [facility] Upper Extremity Venous Report [address] [address] Pat.Name: SONAM BERMEO Pat.ID: [id number] .Date: 01/27/2018 Refer.MD: REGINALD FIGUEROA MD Exam Time: 2:29:00 PM Study Type:UE Venous Age: 9 1985,32Y Sex: FEMALE Sonogrphr: KATHY Robertson RCS Pat. Stat.:Inpatient Room: [place] [address] Tape Vol: CPT PATRICIA - 4: 95385 Echo Event ID:[id number] Order ID: [id number] Reason for Study:Left arm swelling and pain, [...] 01/27/2018 06:56 PM Caleb Pulliam MD, RPVI Performing Organization Address [facility]/State/Zipcode Phone Number [facility] [address] [place] [address] * Pv carotid duplex (01/27/2018 2:28 PM CDT) Narrative Performed At [facility] Vascular Ultrasound Laboratory Carotid Artery Duplex Report [address] [place] [address] For quality worker purposes, the categorization of the degree of the stenosis of this exam is based on criteria described in the IAC carotid stenosis grading white paper( www.intersocietal.org/Vascular) and Neli Kilgore., Yoan Cruz., et al. Carotid artery stenosis: murillo-scale and Doppler US diagnosis--Society of Radiologists in Ultrasound Consensus Conference. Radiology. 2003 Nov; 229(2):340-6. Pat.Name:SONAM BERMEO Rosario.ID:[id number] .Date: 01/27/2018Refer.MD:REGINALD FIGUEROA MD Exam Time: 2:12:00 PMStudy Type:Carotid DOBAge:1985,32Y Sex: FEMALE Sonogrphr: Nicholas Reynoso, RVS, RCS Pat. Stat.:Inpatient Room:[address] A TapeVol: PATRICIA, CPT - 4: 20916 Echo Event ID:[id number] Order ID:[id number] Reason for Study:Concern for clot, patient had [...] [facility] Carotid Artery Duplex Report [address] [place] [address] For quality worker purposes, the categorization of the degree of the stenosis of this exam is based on criteria described in the IAC carotid stenosis grading white paper( www.intersocietal.org/Vascular) and Chan Kilgore, Sherif Cruz, et al. Carotid artery stenosis: murillo-scale and Doppler US diagnosis--Society of Radiologists in Ultrasound Consensus Conference. Radiology. 2003 Feb; 229(2):340-6. Pat.Name: SONAM BERMEO [facility].ID: [id number] .Date: 01/27/2018 Refer.MD: REGINALD FIGUEROA MD Exam Time: 2:12:00 PM Study Type:Carotid Age: 9 1985,32Y Sex: FEMALE Sonogrphr: KATHY Robertson, NOEMY Pat. Stat.:Inpatient Room: [place] [address] A Tape Vol: JM, CPT - 4: 55571 Echo Event ID:[id number] Order ID: [id number] Reason for Study:Concern for clot, patient had [...] Caleb Pulliam MD, RPVI Performing Organization Address City/[facility]/Zipcode Phone Number [facility] [address] [place] [address] * Lactic acid level, SEPSIS - Now and repeat 2x every 3 hours (01/27/2018 6:34 AM CDT) Only the most recent of 2 results within the time period is included. Lactic acid 1.8 0.5 - 2.2 mmol/L [facility] DEPARTMENT OF PATHOLOGY AND GENOMIC MEDICINE Specimen Blood Performing Organization Address City/[facility]/Zipcode Phone Number [facility] DEPARTMENT OF [address] [place] [address] PATHOLOGY AND GENOMIC MEDICINE * Prepare RBC, 1 Units (01/27/2018 3:44 AM CDT) Only the most recent of 2 results within the time period is included. Product name Red Blood Cells -1, Leukored [facility] DEPARTMENT OF PATHOLOGY AND GENOMIC MEDICINE Unit number [id number] [facility] DEPARTMENT OF PATHOLOGY AND GENOMIC MEDICINE Product code [id number] [facility] DEPARTMENT OF PATHOLOGY AND GENOMIC MEDICINE Dispense status Transfused [facility] DEPARTMENT OF PATHOLOGY AND GENOMIC MEDICINE Blood expiration date [id number] [facility] DEPARTMENT OF PATHOLOGY AND GENOMIC MEDICINE Blood type code [address]100 [facility] DEPARTMENT OF PATHOLOGY AND GENOMIC MEDICINE Blood type O POSITIVE [facility] DEPARTMENT OF PATHOLOGY AND GENOMIC MEDICINE Performing Organization Address City/[facility] [place] [address] PATHOLOGY AND GENOMIC MEDICINE * Type and screen (01/27/2018 3:44 AM CDT) Only the most recent of 2 results within the time period is included. ABO grouping O [facility] DEPARTMENT OF PATHOLOGY AND GENOMIC MEDICINE Rh type POS [facility] DEPARTMENT OF PATHOLOGY AND GENOMIC MEDICINE Antibody screen (gel) NEG [facility] DEPARTMENT OF PATHOLOGY AND GENOMIC MEDICINE Specimen Blood Performing Organization Address City/[facility] [place] [address] PATHOLOGY AND [facility] * XR Abdomen Acute Inc Chest (01/27/2018 1:58 AM CDT) Narrative Performed At EXAMINATION: XR ABDOMEN ACUTE INC CHEST HM [facility] CLINICAL HISTORY: Chest painACS suspected, cpabdominal [...] technique. Diffuse osteopenia. No acute osseous abnormalities. [facility]-[id number] Procedure Note Hm Interface, Radiology Results Incoming [...] technique. Diffuse osteopenia. No acute osseous abnormalities. [facility]-[id number] Performing Organization Address City/[facility]/Zipcode Phone Number [facility] [address] [place] [address] * Blood culture, aerobic & anaerobic (01/26/2018 12:50 AM CDT) Blood culture isolate No growth after [address] [facility] DEPARTMENT OF incubation. PATHOLOGY AND Comment: GENOMIC MEDICINE Specimen Information Specimen Source: Blood Specimen Site: Other Specimen Blood - Other- Detailed Description Required Performing Organization Address City/[facility] Phone Number [facility] DEPARTMENT OF [address] [place] [address] PATHOLOGY AND GENOMIC MEDICINE * IR Tunneled Dialysis Catheter Replacement/Exchange (01/02/2018 9:37 AM CDT) Narrative Performed At Procedure: [facility] of tunneled [facility] Clinical History: End-stage renal disease. The patient's indwelling catheter is not functioning. Sedation: Versed and fentanyl were utilized for monitored conscious sedation during the procedure. The patient was transferred to the recovery room at the end of the procedure for further monitoring. Nsxk-gb-vlmb time 15 minutes Anesthesia: Local Radiation dose: [...] above. Blood Loss: Less than [address] [facility] [facility]-[id number] Procedure Note Interface, Radiology Results Incoming - 01/02/2018 9:51 AM CDT Procedure: Change of tunneled dialysis catheter Clinical History: End-stage renal disease. The patient's indwelling catheter is not functioning. Sedation: Versed and fentanyl were utilized for monitored conscious sedation during the procedure. The patient was transferred to the recovery room at the end of the procedure for further monitoring. Sueb-[id number] time 15 minutes Anesthesia: Local Radiation dose: [...] above. Blood Loss: Less than [address] [facility]-[id number] Performing Organization Address [facility] Phone Number [facility] [address] [place] [address] * Vancomycin level, random (01/01/2018 4:38 AM CDT) Only the most recent of 2 results within the time period is included. Vancomycin, random SEE COMMENT ug/mL [facility] DEPARTMENT OF Comment: PATHOLOGY AND Footnote--------- GENOMIC MEDICINE Specimen integrity questionable.Recollect requested for VANCT.APPLE ISO/M3SW notified by KXG at01/01/201806:39 . Specimen Serum Performing Organization Address [facility] Phone Number [facility] OF [address] [place] [phone] PATHOLOGY AND GENOMIC MEDICINE * Echocardiogram complete w contrast and 3D if needed (12/30/2017 9:36 AM CDT) Narrative Performed At [facility] Echocardiography Report [id number] [facility] [address], [place] [address] Pat.Name:SONAM BERMEO Pat.ID:[id number] .Date: 12/30/2017 Refer.MD:JAYDEN JANSEN MD Exam Time: 9:20:00 AMStudy Type:Routine Echo Height:63inBSA: 1.73 m2 DOBAge:1985,32Y Sex: FEMALE BP:111/79HR: 103 bpm Sonogrphr: Aby Castro, RDCS, RVTPat. Stat.:[address] Status:Final Echo Event ID:[id number] Order ID:[id number] Reason for Study:CHF History / Clinical:Congestive Heart [...] RAPof 10 mmHg. MEASUREMENTS: 2D Parasternal [place] LVOT 1.8 cmIVSd 1 cm LA Ds4.4 cmLVPWd0.8 cm Ao Rtd 2.5 cmIndex1.5 cm/m LV Xbvs827 g(87-129) LVIDd5.6 cmIndex3.2 cm/m LVM Lcswh974.4 g/m2 LVIDs5 cmRWT0.3 LV%fs 10.7 % LV EF Biplane XJEDP029.6 ml (59-136) Pbtvy629.8 ml/m LV SV 57.6 ml EKLEV274 omBkwel78.5 ml/m LV EF 29 %(55-75) LA Sng [...] - 12/30/2017 2:42 PM CDT Echocardiography Report [address] [address] Pat.Name: SONAM BERMEO Rosario.ID: [id number] .Date: 12/30/2017 Refer.MD: JAYDEN JANSEN MD Exam Time: 9:20:00 AM Study Type:Routine Echo Height: 63in BSA: 1.73 m2 Age: 9 1985,32Y Sex: FEMALE BP: 111/79 HR: 103 bpm Sonogrphr: Aby Castro, RDCS, RVT Pat. Stat.:Inpatient Room: [address] Study Status:Final Echo Event ID:[id number] Order ID: [id number] Reason for Study:CHF History / Clinical:Congestive Heart [...] of 10 mmHg. MEASUREMENTS: 2D Parasternal [place] LVOT 1.8 cm IVSd 1 cm LA [...] PM Federico Rogers M.D. Performing Organization Address City/State/Zipcode Phone Number [facility] [address] [place] [address] * Pv duplex venous lower extremity (12/29/2017 2:10 PM CDT) Narrative Performed At [facility] Vascular Ultrasound Laboratory Lower Extremity Venous Report [address] [id number] Pat.Name:SONAM BERMEO Pat.ID:[id number] .Date: 12/29/2017 Refer.MD:JAYDEN JANSEN MD Exam Time: 1:53:00 PMStudy Type:LE Venous Height:63inWeight:153lb BSA: 1.73 m2 DOBAge:1985,32Y Sex: FEMALESonogrphr: Hugo Bliss RN, S Pat. Stat.:Inpatient Room:[facility] TapeVol: PM, CPT - 4: 24052 Echo Event ID:[id number] Order ID:[id number] Reason for Study:Bilateral leg edema. Procedures:Colorflow, Grayscale/2D, [...] Vascular Ultrasound Laboratory Lower Extremity Venous Report [address] [address] Pat.Name: SONAM BERMEO Pat.ID: [id number] St.Date: 12/29/2017 Refer.MD: JAYDEN JANSEN MD Exam Time: 1:53:00 PM Study Type:LE Venous Height: 63in Weight: 153lb BSA: 1.73 m2 Age: 9 1985,32Y Sex: FEMALE Sonogrphr: Hugo Bliss RN, RVS Pat. Stat.:Inpatient Room: [facility] Tape Vol: PM, CPT - 4: 10101 Echo Event ID:[id number] Order ID: [id number] Reason for Study:Bilateral leg edema. Procedures:Colorflow, Grayscale/2D, [...] Organization Address City/State/Zipcode Phone Number [facility] [address] [place] [address] * XR Shoulder 2+ Vw Left (12/28/2017 [...] Central venous catheter and transthoracic pacemaker present. [facility]-[id number] Procedure Note Interface, Radiology Results Incoming - [...] Central venous catheter and transthoracic pacemaker present. [facility]-[id number] Performing Organization Address [facility] Phone [facility] [address] [place] [address] * US Renal (12/28/2017 1:35 PM CDT) Narrative Performed At EXAMINATION[facility] CL[facility]ICAL H[facility]ORY:hydroureter COMPARISON:06/04/2015 IMPRESSION: 1.There is no hydronephrosis. 2.Renal cortical echogenicity is increased suggesting medical renal disease. 3.Right kidney measures 10.2 x 4 x 3.8 cm. 4.Left kidney measures 11.3 x 4.5 x 4.8 cm. 5.Bladder is unremarkable. [facility]-[id number] Procedure Note Interface, Radiology Results Incoming - 12/28/2017 2:43 PM CDT EXAMINATION: US RENAL CLINICAL HISTORY: hydroureter COMPARISON: 06/04/2015 IMPRESSION: 1. There is no hydronephrosis. 2. Renal cortical echogenicity is increased suggesting medical renal disease. 3. Right kidney measures 10.2 x 4 x 3.8 cm. 4. Left kidney measures 11.3 x 4.5 x 4.8 cm. 5. Bladder is unremarkable. [facility]-[id number] Performing Organization Address [facility]/Zipcode Phone Number [facility] [address] [place] [address] * Hemoglobin A1c (12/28/2017 5:00 AM CDT) Hemoglobin A1C 6.8 (H) 4.0 - 5.6 % [facility] DEPARTMENT OF Comment: PATHOLOGY AND HbA1c [...] Blood Performing Organization Address City/State/Zipcode Phone Number [facility] DEPARTMENT OF [address] [place] [address] PATHOLOGY AND GENOMIC MEDICINE * CT Abdomen [...] shift/edema. Correlation to exclude colitis is advised. [facility]-[id number] Procedure Note [facility], Radiology Results Incoming - 12/28/2017 4:15 AM [...] shift/edema. Correlation to exclude colitis is advised. [facility]-[id number] Performing Organization Address City/State/Zipcode Phone Number [facility] [address] [place] [address] * Urinalysis screen and microscopy, with reflex to culture (12/28/2017 3:30 AM CDT) Specimen site Clean catch [facility] DEPARTMENT OF PATHOLOGY AND GENOMIC MEDICINE Color, UA Yellow [facility] DEPARTMENT OF PATHOLOGY AND GENOMIC MEDICINE Appearance, UA Hazy [facility] DEPARTMENT OF PATHOLOGY AND GENOMIC MEDICINE Specific gravity, UA 1.017 1.001 - 1.035 [facility] DEPARTMENT OF PATHOLOGY AND GENOMIC MEDICINE pH, UA 6.0 5.0 - 8.5 [facility] DEPARTMENT OF PATHOLOGY AND GENOMIC MEDICINE Protein, UA 3+ (A) Negative [facility] DEPARTMENT OF PATHOLOGY AND GENOMIC MEDICINE Glucose, UA Negative Negative [facility] DEPARTMENT OF PATHOLOGY AND GENOMIC MEDICINE Ketones, UA Negative Negative [facility] DEPARTMENT OF PATHOLOGY AND GENOMIC MEDICINE Bilirubin, UA Positive@UBIL (A) Negative [facility] DEPARTMENT OF PATHOLOGY AND GENOMIC MEDICINE Blood, UA Small (A) Negative [facility] DEPARTMENT OF PATHOLOGY AND GENOMIC MEDICINE Nitrite, UA Negative Negative [facility] DEPARTMENT OF PATHOLOGY AND GENOMIC MEDICINE Urobilinogen, UA <2.0 <[address]0 [facility] DEPARTMENT OF PATHOLOGY AND GENOMIC MEDICINE Leukocyte esterase, UA Moderate (A) Negative [facility] DEPARTMENT OF PATHOLOGY AND GENOMIC MEDICINE Epithelial cells, UA 1 /HPF [facility] DEPARTMENT OF PATHOLOGY AND GENOMIC MEDICINE WBC, UA 129 (H) 0 - 4 /HPF [facility] DEPARTMENT OF PATHOLOGY AND GENOMIC MEDICINE RBC, UA 15 (H) 0 - 5 /HPF [facility] DEPARTMENT OF PATHOLOGY AND GENOMIC MEDICINE Bacteria, UA None seen None seen [facility] DEPARTMENT OF PATHOLOGY AND GENOMIC MEDICINE Yeast, UA Many (A) [facility] DEPARTMENT OF PATHOLOGY AND GENOMIC MEDICINE Yeast with pseudohyphae, None seen [facility] DEPARTMENT OF UA PATHOLOGY AND GENOMIC MEDICINE Hyaline casts, UA 18 /LPF [facility] DEPARTMENT OF PATHOLOGY AND GENOMIC MEDICINE Specimen Urine Performing Organization Address City/[facility]/Zipcode Phone Number [facility] DEPARTMENT OF [address] [place] [address] PATHOLOGY AND GENOMIC MEDICINE * Gram stain (12/28/2017 3:30 AM CDT) Gram stain result Rare WBC's [facility] DEPARTMENT OF Rare Budding yeast PATHOLOGY AND Comment: GENOMIC MEDICINE Specimen Information Specimen Source: Urine Specimen Site: Clean catch Specimen Urine Performing Organization Address City/State/Zipcode Phone Number [facility] DEPARTMENT OF [address] [place] [address] PATHOLOGY AND GENOMIC MEDICINE * Urine culture (12/28/2017 3:30 AM CDT) Urine culture isolate Marleen glabrata [facility] DEPARTMENT OF >10-5 cfu/ml PATHOLOGY AND The performance GENOMIC MEDICINE characteristics of this assay on this isolate were validated by the Microbiology Laboratory at [facility].This source has not been approved by the [...] catch Urine culture isolate Gram positive betsy [facility] DEPARTMENT OF 10-2 cfu/ml PATHOLOGY AND (A) GENOMIC MEDICINE Specimen Urine Antibiotic Method Susceptibility Organism Micafungin BP 0.016 mcg/mL: Susceptible Marleen glabrata Amphotericin B BP 1 mcg/mL: Susceptible Marleen glabrata Posiconazole BP 1 mcg/mL Marleen glabrata Itraconazole BP 1.0 mcg/mL: Resistant Marleen glabrata Fluconazole BP 32 mcg/mL: Susceptible Marleen glabrata Performing Organization Address City/State/Zipcode Phone Number [facility] DEPARTMENT OF [address] [place] [address] PATHOLOGY AND GENOMIC MEDICINE after 02/26/2017 Insurance Payer Benefit Subscriber ID Type Phone Address Plan / Group GRISEL RECINOS xxxxxxxxx [facility] [employer] Advance Directives Patient has advance care planning documents, and code status on file. For more i nformation, please contact: Pavel Roberts [address] [place] [address] Date Inactivated Comments Code Status Date Activated 02/18/2018 8:23 PM Full Code 02/08/2018 4:32 PM Code Status decision reached by: Patient
--- OUTSIDE RECORDS SUMMARY | 2018-02-27 13:15 | XMS REPORT | Clinical Summary ---
Author Author KALYAN [facility] Address Unknown Phone Unavailable Care Team Providers Care Group Home Supervisor Name Role Phone LonnyGer Jacqueline PCP Allergies [...] Active B complex Take 1 tablet 0 55-ozael-V-biot-zinc by mouth (DIALYVITE) [id number] daily. wz-gq-cyy-mg Tab 01/14/2019 Active phenytoin (DILANTIN) 100 Take [...] Surgeon PROCEDURE DONE OUTSIDE OR 01/09[facility]2018 [facility] Ahmed, Shamoon, MD Siddiqui, Angela [...] Transplant Yoon Delvalle 06/10/2017 Telephone Transplant after 02/26/2017 Social History Date Tobacco Use Types Packs/Day [...] ms QTC Calculatio n(Bazett) 452 ms P [place] 61 degrees R [place] 27 degrees T [place] 106 degrees Sinus tachycardi a Nonspecifi c [...] ms QTC Calculatio n(Bazett) 437 ms P [place] 53 degrees R [place] 0 degrees T [place] 174 degrees Sinus tachycardi a with Fusion [...] 12-LEAD STAT 01/03/2018 12:48 AM CDT after 02/26/2017 Results * ARRYTHMIA IMPLANT REPORT - SCAN (01/24/2018 1:40 PM CDT) Narrative Performed At * RHYTHM STRIP - SCAN (01/24/2018 1:40 PM CDT) Narrative Performed At * POC-Glucose meter (01/23/2018 9:24 AM CDT) Only the most recent of 67 results within the time period is included. POC-Glucose Meter 135 (H)Comment: TESTED AT 70 - 110 mg/dL [facility] [address] [facility] [id number] Specimen Blood Performing Organization Address City/State/Zipcode Phone Number [facility] [address] [place], [place] [phone] [facility] * HEMODIALYSIS INPATIENT (01/22/2018 5:54 PM [...] (01/21/2018 6:41 AM CDT) Result No growth [facility] Gram Stain Result 4+ WBCs [facility] Gram Stain Result No organisms seen [facility] Specimen Wound - Shoulder, Left Performing Organization Address City/State/Zipcode Phone Number [facility] [address] [place] [address] [facility] * IR Tunneled Catheter Insertion (01/20/2018 1:02 PM CDT) Only the most recent of 2 results within the time period is included. Narrative Performed At FINAL REPORT [facility] Tunneled dialysis catheter exchange, partial today History: Renal failure. Nonfunctioning hemodialysis catheter. Unable to aspirate from the right portal Modality: Sonography and fluoroscopy. Sedation: Versed 1.0 mg and fentanyl 50 mcg was given intravenously for conscious sedation.Vital signs were monitored throughout the procedure by a nurse, and remained stable. Physician intra-service time was 20 minutes. Plate Mill Hand:Kayla. Title I Director: Nadia Inman MD. Approach: Right chest tunneled [...] new 19 cm cuff to tip 15.5 [place] Duraflow two catheter was then advanced over [...] MD Report Verified Date/Time:01/20/2018 17:29:46 Reading Location: [place] [address] Angio Body Reading Room Procedure Note Interface, [...] stable. Physician intra-service time was 20 minutes. Plate Mill Hand: Kayla. Title I Director: Nadia Inman MD. Approach: Right chest tunneled [...] new 19 cm cuff to tip 15.5 [place] Duraflow two catheter was then advanced over [...] Report Verified Date/Time: 01/20/2018 17:29:46 Reading Location: [place] [address] Angio Body Reading Room Performing Organization Address City/State/Zipcode Phone Number [facility] * PT/aPTT (01/20/2018 5:26 AM CDT) Only the most recent of 5 results within the time period is included. Protime 17.8 (H) 11.7 - 14.7 seconds [facility] INR 1.5 <=5.9 [facility] PTT 36.8 (H) 22.5 - 36.0 seconds [facility] Specimen Blood - Central Venous Line Narrative Performed At RECOMMENDED COUMADIN/WARFARIN INR THERAPY RANGES STANDARD DOSE: 2.0 - 3.0 Includes: PROPHYLAXIS for venous thrombosis, [facility] systemic embolization; TREATMENT for venous thrombosis and/or pulmonary embolus. HIGH RISK: Target INR is 2.5-3.5 for patients with mechanical heart valves. Performing Organization Address City/State/Zipcode Phone Number [facility] [address] [place] [address] MED[facility]ENTER * CBC with platelet count + automated diff (01/20/2018 5:26 AM CDT) Only the most recent of 16 results within the time period is included. WBC 4.6 3.5 - 10.5 K/L [facility] RBC 3.04 (L) 3.93 - 5.22 M/L [facility] Hemoglobin 8.4 (L) 11.2 - 15.7 GM/DL [facility] Hematocrit 28.9 (L) 34.1 - 44.9 % [facility] MCV 95.1 (H) 79.4 - 94.8 fL [facility] MCH 27.6 25.6 - 32.2 pg [facility] MCHC 29.1 (L) 32.2 - 35.5 GM/DL [facility] RDW 17.8 (H) 11.7 - 14.4 % [facility] Platelets 169 150 - 450 K/CU MM [facility] MPV 10.8 9.4 - 12.3 fL [facility] nRBC 0 0 - 0 /100 WBC [facility] % Neutros 77 % [facility] % Lymphs 16 % [facility] % Monos 3 % [facility] % Eos 2 % [facility] % Baso 1 % [facility] # Neutros 3.51 1.56 - 6.13 K/L [facility] # Lymphs 0.75 (L) 1.18 - 3.74 K/L [facility] # Monos 0.13 (L) 0.24 - 0.36 K/L [facility] # Eos 0.11 0.04 - 0.36 K/L [facility] # Baso 0.03 0.01 - 0.08 K/L [facility] Immature 1 0 - 1 % Granulocytes-Relative [facility] Specimen Blood - Central Venous Line Performing Organization Address City/[facility] Phone Number [phone] [place] [address] * Vancomycin level, random (01/20/2018 5:26 AM CDT) Only the most recent of 4 results within the time period is included. Vancomycin Rm 19.5 ug/mL [facility] Specimen Blood - Central Venous Line Narrative Performed At Reference Range: No Normals [facility] Performing Organization Address City/[facility] Phone Number [phone] [place] [address] * TRANSFUSION SERVICE REPORT - SCAN (01/18/2018 6:00 PM CDT) Only the most recent of 2 results within the time period is included. Narrative Performed At * Phosphorus (01/18/2018 9:35 AM CDT) Phosphorus 2.4 2.3 - 4.7 mg/dL [facility] Specimen Blood Performing Organization Address City/[facility] Hospital[facility] [place] [address] [phone] [place] [address] * Magnesium (01/18/2018 9:35 AM CDT) Only the most recent of 2 results within the time period is included. Magnesium 1.7 1.6 - 2.6 mg/dL [facility] Specimen Blood Performing Organization Address City/[facility]/Zipcode Phone Number [facility] [address] [place] [address] [facility] * Basic metabolic panel (01/18/2018 9:35 AM CDT) Only the most recent of 16 results within the time period is included. Sodium 135 (L) 136 - 145 meq/L [facility] Potassium 3.2 (L) 3.5 - 5.1 meq/L [facility] Chloride 99 98 - 107 meq/L [facility] CO2 29 22 - 29 meq/L [facility] BUN 13 7 - 21 mg/dL [facility] Creatinine 2.07 (H) 0.57 - 1.25 mg/dL [facility] Glucose 135 (H) 70 - 105 mg/dL [facility] Calcium 7.8 (L) 8.4 - 10.2 mg/dL [facility] EGFR 34Comment: ESTIMATED GFR IS mL/min/1.73 sq m NOT ACCURATE CREATININE [facility] CLEARANCE IN PREDICTING GLOMERULAR FILTRATION RATE. ESTIMATED GFR IS NOT APPLICABLE FOR DIALYSIS PATIENTS. Specimen Blood Performing Organization Address City/[facility] Hospitalcode Phone Number [place] [phone] [place] [address] [facility] * Prepare Leuko-Red & Irrad RBC (01/17/2018 11:54 PM CDT) CROSSMATCH COMPATIBLE SAFETRACE TX Unit ABO O Pos SAFETRACE TX UNIT NUMBER [id number] [place]AF[place]ACE [place] Status TRANSFUSED [place]AF[place]ACE [place] Blood Bank Product RED BLOOD CELLS [place]AF[place] PRODUCT CODE [id number] [place] Specimen Other Performing Organization Address City/[facility] Phone Number [place] * CT upper extremity with contrast right (01/17/2018 9:24 PM CDT) Narrative Performed At FINAL REPORT [facility] CT, EXTREMITY, UPPER, WITH CONTRAST, RIGHT, [...] MD Report Verified Date/Time:01/17/2018 22:06:08 Reading Location: [facility] B1 C013T Transitional Reading Room Procedure [...] Report Verified Date/Time: 01/17/2018 22:06:08 Reading Location: [facility] C0[facility] Transitional Reading Room Performing Organization Address City/State/Zipcode Phone Number [facility] * CT upper extremity with contrast left (01/17/2018 9:24 PM CDT) Narrative Performed At FINAL REPORT [facility] CT, EXTREMITY, UPPER, WITH CONTRAST, RIGHT, CT, [...] MD Report Verified Date/Time:01/17/2018 22:06:08 Reading Location: [address] Transitional Reading Room Procedure Note Interface, [...] Report Verified Date/Time: 01/17/2018 22:06:08 Reading Location: [address] Transitional Reading Room Performing Organization Address City/State/Zipcode Phone Number [facility] [employer] * CT chest without IV contrast (01/16/2018 11:42 PM CDT) Narrative Performed At FINAL REPORT [facility] CT, CHEST, WITHOUT CONTRAST INDICATION: Chest pain [...] MD Report Verified Date/Time:01/16/2018 23:55:03 Reading Location: [address] Reading Room Procedure Note Interface, External [...] Report Verified Date/Time: 01/16/2018 23:55:03 Reading Location: [address] Reading Room Performing Organization Address City/State/Zipcode Phone Number [facility] * Transfuse Leuko-Red & Irrad RBC (01/16/2018 3:05 PM CDT) Only the most recent of 2 results within the time period is included. * Type and screen, automated (01/16/2018 12:17 PM CDT) ABO/RH AUTOMATED (BEAKER) O POSITIVE [facility] Ab Scrn NEGATIVE [facility] Specimen Blood - Central Venous Line Performing Organization Address City/[facility] Phone Number [facility] [address] [place], [place] [phone] MEDICAL CENTER * CBC (Hemogram only) (01/16/2018 4:01 AM CDT) WBC 3.7 3.5 - 10.5 K/L [facility] RBC 2.49 (L) 3.93 - 5.22 M/L [facility] Hemoglobin 6.9 (L) 11.2 - 15.7 GM/DL [facility] Hematocrit 24.0 (L) 34.1 - 44.9 % [facility] MCV 96.4 (H) 79.4 - 94.8 fL [facility] MCH 27.7 25.6 - 32.2 pg [facility] MCHC 28.8 (L) 32.2 - 35.5 GM/DL [facility] RDW 18.7 (H) 11.7 - 14.4 % [facility] Platelets 152 150 - 450 K/CU MM [facility] MPV 10.8 9.4 - 12.3 fL [facility] nRBC 0 0 - 0 /100 WBC [facility] Specimen Blood - Central Venous Line Performing Organization Address City/State/Zipcode Phone Number [facility] [address] [place] [address] MEDICAL CENTER * XR chest [...] MD Report Verified Date/Time:01/14/2018 22:17:24 Reading Location: [facility] Mamm Reading Room Procedure Note Interface, External [...] Report Verified Date/Time: 01/14/2018 22:17:24 Reading Location: [facility] Mammo Reading Room Performing Organization Address City/State/Zipcode Phone Number [facility] * Clostridium difficile [facility] Toxin (01/14/2018 2:05 AM CDT) C. Difficle Toxin Negative Negative [facility] C. Difficile [facility] Antigen Positive (A)Comment: C. Negative difficile present but toxin [facility] not detected. Indicates colonization with non-toxigenic strain or level of toxin below detectable levels. No need for enteric isolation. Treatment is rarely needed (only when strong clinical suspicion for Clostridium difficile infection) Specimen Stool - Stool Narrative Performed At Testing performed by [employer] Rapid Cassette Assay.For [facility], published sensitivity of the assay is 98.7% compared to cytotoxicity testing.For Toxin [facility] AB, published sensitivity is 87.8% and specificity 99.4% compared to cytotoxicity testing. Verification of kit performance was done by the [facility] Microbiology Lab prior to clinical use. Performing Organization Address [facility]/State/Zipcode Phone Number [facility] [address] [place] [address] [facility] * HEMODIALYSIS INPATIENT (01/13/2018 12:44 PM [...] CDT) TSH 3.42 0.35 - 4.94 uIU/mL [facility] Specimen Blood - Line, Venous Performing Organization Address City/State/Zipcode Phone Number [facility] [address] [place] [address] [facility] * CT brain without IV contrast (01/11/2018 12:53 PM CDT) Narrative Performed At FINAL REPORT [employer] [facility] CT head without contrast 01/11/2018 1:34 PM [...] MD Report Verified Date/Time:01/11/2018 13:35:22 Reading Location: [address] Ortho Consult Reading Room Procedure Note [...] Report Verified Date/Time: 01/11/2018 13:35:22 Reading Location: [facility] B1 C013X Ortho Consult Reading Room Performing Organization Address City/[facility] Phone Number [facility] * Hemoglobin and hematocrit (01/10/2018 6:15 PM CDT) Hemoglobin 8.4 (L) 11.2 - 15.7 GM/DL [facility] Hematocrit 28.5 (L) 34.1 - 44.9 % [facility] Specimen Blood - Central Venous Line Performing Organization Address City/[facility] Phone Number [facility] [address] [place] [address] [phone] [place] [address] * Vancomycin level, trough (01/10/2018 3:09 PM CDT) Vancomycin Tr 12.4 10.0 - 20.0 ug/mL [facility] Specimen Blood - Central Venous Line Narrative Performed At Send after dialysis please [facility] Performing Organization Address City/[facility] Phone Number [facility] [address] [place] [address] [facility] * ECG 12 lead (01/10/2018 7:31 AM CDT) Only the most recent of 2 results within the time period is included. Narrative Performed At Ventricular Rate 123 BPM [facility] Atrial Rate 123 BPM P-R Interval 164 ms QRS Duration 88 ms Q-T Interval 316 ms QTC Calculation(Bazett) 452 ms P [place] 61 degrees R [place] 27 degrees T [place] 106 degrees Sinus tachycardia Nonspecific T wave [...] 316 ms QTC Calculation(Bazett) 452 ms P [place] 61 degrees R [place] 27 degrees T [place] 106 degrees Sinus tachycardia Nonspecific T wave abnormality Prolonged QT Abnormal ECG When compared with ECG of 03-JAN-2018 00:48, Fusion complexes are no longer Present Confirmed by Charlene KELLOGG BASANT ([id number]) on 01/12/2018 8:44:48 PM Performing Organization Address City/State/Zipcode Phone Number [employer] [facility] * XR chest 1 view portable / bedside (01/10/2018 5:28 AM CDT) Only the most recent of 2 results within the time period is included. Narrative Performed At FINAL REPORT [employer] [facility] Chest one view. Clinical history: SOB post [...] MD Report Verified Date/Time:01/10/2018 06:32:36 Reading Location: [facility] C013 CT Body Reading Room Procedure Note [...] Report Verified Date/Time: 01/10/2018 06:32:36 Reading Location: [facility] B1 C013Y CT Body Reading Room Performing Organization Address City/[facility] Phone Number [facility] * C-Reactive Protein (01/10/2018 4:34 AM CDT) Only the most recent of 2 results within the time period is included. CRP 2.35 (H) 0.00 - 0.50 mg/dL [facility] Specimen Blood - Central Venous Line Performing Organization Address City/[facility] Phone Number [facility] [address] [place] [address] [phone] * Lactic acid, venous, whole blood (01/10/2018 4:23 AM CDT) Lactate, Venous 2.7 (H) 0.5 - 2.2 mmol/L [facility] Specimen Blood - Central Venous Line Narrative Performed At Effective 08/17/2015: Units/Reference Range Change New: 0.5-2.2 mmol/LPrevious: 5-20 mg/dL [facility] Performing Organization Address [facility] Phone Number [facility] [address] [place] [address] [phone] [place] [address] * IR Tunneled Catheter Exchange (01/09/2018 5:40 PM CDT) Narrative Performed At FINAL REPORT [facility] Procedure: Removal replaced damage right internal [...] MD Report Verified Date/Time:01/09/2018 19:06:03 Reading Location: [address] Body Reading Room Procedure Note Interface, [...] Report Verified Date/Time: 01/09/2018 19:06:03 Reading Location: [place] [address] Angio Body Reading Room Performing Organization Address City/State/Zipcode Phone Number [facility] * hCG, quantitative, (01/09/2018 4:08 AM CDT) hCG Quant <1 0 - 10 mIU/mL [facility] Specimen Blood - Central Venous Line Narrative Performed At Non- Females: <10 mIU/mL Females: [facility] Gestation AgeReference Range(mIU/mL) 0.2-1 Week5-50 1-2 [id number] 2-3 Weeks 100-5,000 3-4 Weeks 500-10,000 4-5 Weeks 1,000-50,000 5-6 Weeks10,000-100,000 6-8 Weeks15,000-200,000 2-3 Months 10,000-100,000 Performing Organization Address City/State/Zipcode Phone Number [address] [address] MEDICAL CENTER * PERMANENT LAB REPORT - SCAN (01/07/2018 11:13 AM CDT) Narrative Performed At * Immunofixation electrophoresis (TONYA) (01/06/2018 4:08 PM CDT) IgG 3,413 (H) 540 - 1,822 mg/dL [facility] IgA 483 63 - 484 mg/dL [facility] IgM 130 22 - 293 mg/dL [facility] Serum TONYA Identification No monoclonal bands detected. Polyclonal distribution of [facility] immunoglobulins. Pathologist: Belkis Styles MD (electronic signature) [facility] Specimen Blood - Central Venous Line Performing Organization Address [facility] Phone Number [facility] [address] [place] [address] [facility] * Protein electrophoresis, serum (01/06/2018 4:08 PM CDT) Albumin Fraction 2.6 (L) 3.5 - 5.5 g/dL [facility] Alpha 1 Fraction 0.3 0.2 - 0.4 g/dL [facility] Alpha 2 Fraction 0.8 0.5 - 0.9 g/dL [facility] Beta Fraction 1.0 0.6 - 1.1 g/dL [facility] Gamma Globulin Fraction 3.2 (H) 0.7 - 1.7 g/dL [facility] Interpretation Decreased albumin consistent with renal protein loss. [facility] Polyclonal elevation of gamma fraction, which may be seen with chronic inflammation and/or recent administration of IVIG. Serum TONYA ordered to exclude presence of small monoclonal protein underlying. Pathologist: Belkis Styles MD (electronic signature) [facility] Protein, Total 7.8 6.0 - 8.3 gm/dL [facility] Specimen Blood - Central Venous Line Performing Organization Address City/[facility] Phone Number [facility] [address] [place] [address] [phone] [place] [address] * PTH, intact (01/06/2018 4:08 PM CDT) PTH 80.1 (H) 8.5 - 72.5 pg/mL [facility] Specimen Blood - Central Venous Line Performing Organization Address City/[facility]/Zipcode Phone Number [address] [address] [phone] * Lactate dehydrogenase (LDH) (01/06/2018 4:08 PM CDT) LDH 171 125 - 220 U/L [facility] Specimen Blood - Central Venous Line Performing Organization Address [facility] [place] [address] [phone] [address] * XR shoulder complete 2 views min left (01/05/2018 10:00 AM CDT) Narrative Performed At FINAL REPORT [facility] LEFT SHOULDER 3 VIEWS HISTORY: Left [...] MD Report Verified Date/Time:01/05/2018 10:47:29 Reading Location: [address] Reading Room Procedure Note Interface, External [...] Report Verified Date/Time: 01/05/2018 10:47:29 Reading Location: [address] Transitional Reading Room Performing Organization Address City/State/Zipcode Phone Number [facility] * XR elbow 3 views min left (01/05/2018 10:00 AM CDT) Narrative Performed At FINAL REPORT [facility] LEFT ELBOW 3 VIEWS HISTORY: Left [...] MD Report Verified Date/Time:01/05/2018 10:51:25 Reading Location: [address] Transitional Reading Room Procedure Note Interface, [...] Report Verified Date/Time: 01/05/2018 10:51:25 Reading Location: [address] Transitional Reading Room Performing Organization Address [facility] Phone Number [facility] * XR humerus 2 views left (01/05/2018 10:00 AM CDT) Narrative Performed At FINAL REPORT [employer] LEFT HUMERUS 2 VIEWS HISTORY: Left arm [...] MD Report Verified Date/Time:01/05/2018 10:55:40 Reading Location: [address] Transitional Reading Room Procedure Note Interface, [...] Report Verified Date/Time: 01/05/2018 10:55:40 Reading Location: [address] Transitional Reading Room Performing Organization Address [facility] Phone Number [facility] * HEMODIALYSIS INPATIENT [...] CDT) hepatitis B Surface Ag NON-REACTIVE Nonreactive [facility] Specimen Blood Performing Organization Address City/[facility] Phone Number [address] * Hemoglobin A1c (01/03/2018 9:16 AM CDT) Hemoglobin A1C 6.0 4.3 - 6.1 % [facility] Specimen Blood Performing Organization Address City/[facility] Phone Number [address] * ED ECG Interpretation (01/03/2018 6:35 AM CDT) Narrative Performed At Meghan Montiel MD 01/03/20186:35 AM ECG/EKG Interpretation Date/Time: 01/03/2018 5:09 AM Performed by: MEGHAN MONTIEL Authorized by: MEGHAN MONTIEL The ECG was interpreted by ED physician. The ECG is interpreted as sinus rhythm. Rate is tachycardic. [place] is normal. Clinical Impression: non-specific ECGECG reviewed and does not meet STEMI criteria. Patient tolerance: Patient tolerated the procedure well with no immediate complications * Urinalysis w/ Microscopic (01/03/2018 4:24 AM CDT) Color, UA Yellow [facility] Clarity, UA Hazy [facility] Specific Mclean, UA 1.016 1.001 - 1.035 [facility] pH, UA 6.0 5.0 - 8.0 [facility] Protein, UA 300 mg/dL (A) Negative [facility] Glucose, UA Negative Negative [facility] Ketones, UA Negative Negative [facility] Bilirubin, UA Negative Negative [facility] Blood, UA Moderate (A) Negative [facility] Nitrite, UA Negative Negative [facility] Leukocytes, UA Large (A) Negative [facility] Urobilinogen, UA 0.2 0.2 - 1.0 mg/dL [facility] RBC, UA 104 /HPF [facility] WBC, UA 57 /HPF [facility] Bacteria, UA Few [facility] Hyaline Casts, UA 27 /LPF [facility] Granular Casts, UA 4 /LPF [facility] Amorphous Crystals Occasional [facility] Specimen Source Urine, Straight Catheter [facility] Specimen Urine - Urine, Straight Catheter Performing Organization Address City/State/Zipcode Phone Number [facility] [address] [place] [address] MEDICAL CENTER * Troponin I (01/03/2018 1:09 AM CDT) Troponin I 0.02 0.00 - 0.03 ng/mL [facility] Specimen Blood Narrative Performed At Troponin I (TnI) levels must be interpreted in the context of the presenting symptoms and the clinical findings. Elevated TnI levels indicate myocardial [facility] damage, but are not specific for ischemic heart disease. Elevated TnI levels are seen in patients with other cardiac conditions (including myocarditis and congestive heart failure), and slight TnI elevations occur in patients with other conditions, including sepsis, renal failure, acidosis, acute neurological disease, and persistent tachyarrhythmia. Performing Organization Address City/[facility] Phone Number [address] * B-type natriuretic peptide (01/03/2018 1:09 AM CDT) BNP 3,706 (H) 0 - 100 pg/mL [facility] Specimen Blood Performing Organization Address [facility] Phone Number [address] * Lipase (01/03/2018 1:09 AM CDT) Lipase 7 (L) 8 - 78 U/L [facility] Specimen Blood Performing Organization Address [facility] Phone Number [address] * Amylase (01/03/2018 1:09 AM CDT) Amylase 47 25 - 125 U/L [facility] Specimen Blood Performing Organization Address [facility] Phone Number [address] * Hepatic function panel (01/03/2018 1:09 AM CDT) Protein, Total 7.9 6.0 - 8.3 gm/dL [facility] Albumin 2.4 (L) 3.5 - 5.0 g/dL [facility] Total Bilirubin 0.5 0.2 - 1.2 mg/dL [facility] Bilirubin, Direct 0.3 0.1 - 0.5 mg/dL [facility] Alkaline Phosphatase 133 40 - 150 U/L [facility] AST 7 5 - 34 U/L [facility] ALT 6 6 - 55 U/L [facility] Specimen Blood Performing Organization Address City/State/Zipcode Phone Number [facility] [address] [place] [address] [facility] after 02/26/2017 Insurance Payer Benefit Subscriber ID Type Phone Address Plan / Group [employer] MEDICA[employer] MEDICAID xxxxxxxxx [employer] MED[place]ID - MEDICAID MGD MEDICAID xxxxxxxxx Medicaid CARE [place] Non-Contra NONCONTRAC cted EMILY Advance Directives For more information, please contact: [facility] [address] [place] [id number] Date Inactivated Comments Code Status Date Activated 01/23/2018 6:21 PM Full Code 01/03/2018 7:16 AM This code status was determined by: Patient
[2018-02-27] MEDS ORDERED: HYDRALAZINE HCL 20 MG/ML VIAL IV STA ×2 (13:28→19:02)
[2018-02-27] MEDS ORDERED: NITROGLYCERIN 2% OINT 1 GM PKT TOP ONE (13:30)
[2018-02-27] MEDS ORDERED: ACETAMINOPHEN 325 MG TAB PO ONE (13:30)
[2018-02-27] MEDS ORDERED: ONDANSETRON HCL INJ 2 MG/ML VIAL IV ONE (13:30)
[2018-02-27] MEDS ORDERED: FAMOTIDINE 20 MG/2 ML VIAL IV ONE (13:30)
[2018-02-27] MEDS ORDERED: PROMETHAZINE 25MG/SOD CHL 0.9% 50 ML IV NR (14:00)
[2018-02-27 14:45] LABS: BASOPHILS % 0.8 % (0.0-1.0); EOSINOPHILS # (AUTO) 0.1 (0.0-0.4); EOSINOPHILS % 3.3 % (0.0-6.0); HEMATOCRIT 36.8 % (34.2-44.1); LYMPHOCYTES # (AUTO) 0.8 (1.0-3.2); LYMPHOCYTES % 21.1 % (18.0-39.1); MEAN CORPUSCULAR HEMOGLOBIN 27.7 pg (28-32); MEAN CORPUSCULAR HGB CONC 29.9 g/dL (31-35); MEAN CORPUSCULAR VOLUME 92.7 fL (81-99); MONOCYTES # (AUTO) 0.3 (0.2-0.8); MONOCYTES % 6.3 % (4.4-11.3); NEUTROPHILS # (AUTO) 2.7 (2.1-6.9); NEUTROPHILS % 68.2 % (38.7-80.0); PLATELET COUNT 174 x10e3/uL (140-360); RED BLOOD COUNT 3.97 x10e6/uL (3.6-5.1); RED CELL DISTRIBUTION WIDTH 16.7 % (11.7-14.4)
--- NOTE | 2018-02-27 14:55 | Diagnostic Imaging Report ---
A single frontal view of the chest. HISTORY: Chest pain, look for CHF, enlarge Mediastinum COMPARISON: Chest radiograph January 23, 2018 DISCUSSION: Portable technique, limits sensitivity of the exam. Soft tissue attenuation partially limits sensitivity of the exam. Tubes/Lines: Unchanged appearance of the dual lumen right-sided dialysis catheter, left-sided chest port, and implanted left-sided cardiac device. Lungs and pleura: Low lung volumes result in bibasilar vascular crowding, accentuation of the pulmonary interstitial markings, central pulmonary vasculature, and the cardiac silhouette. Allowing for these limitations, the findings are as follows: Slightly decreased interval prominence of the pulmonary interstitial markings and alveolar opacities. No definite pleural effusion or pneumothorax is identified. Heart and mediastinum: The cardiac silhouette appears unchanged. Bones: No acute osseous lesion is identified, given this limited exam. IMPRESSION: Interval improvement of the pulmonary edema with mild residual. Signed by: Dr. Dung Diamond D.O., M.M.M. on 02/27/2018 2:08 PM
[2018-02-27 15:14] LABS: ALBUMIN 2.9 g/dL (3.5-5.0); ALBUMIN/GLOBULIN RATIO 0.6 (0.8-2.0); ANION GAP 18.9 mmol/L (8-16); CREATININE, SERUM 6.53 mg/dL (0.57-1.11); MAGNESIUM 2.3 MG/DL (1.3-2.1); POTASSIUM 3.9 mmol/L (3.5-5.1)
[2018-02-27 15:16] LABS: CALCIUM 6.9 mg/dL (8.4-10.2)
[2018-02-27] MEDS ORDERED: ALBUTEROL SULF 0.083% NEB SOLN 3 ML NEB NEB STA (15:19)
[2018-02-27] MEDS ORDERED: DEXTROSE 50% SYRINGE 50 ML IV STA ×2 (15:19→18:05)
[2018-02-27] MEDS ORDERED: SODIUM BICARBONATE 8.4% INJ 50 ML SYR IV STA (15:19)
[2018-02-27 15:20] LABS: CREATINE KINASE MB 3.8 ng/mL (0-5.0)
[2018-02-27] MEDS ORDERED: INSULIN REGULAR, HUMAN 100 UNIT/1 ML 3ML VIAL IV ONE ×2 (15:30→18:15)
[2018-02-27] MEDS ORDERED: MIDAZOLAM HCL 2 MG/2 ML VIAL ONE (15:53)
[2018-02-27] MEDS ORDERED: MORPHINE SULFATE 2 MG/ML SYR ONE ×2 (15:56→16:07)
[2018-02-27] MEDS ORDERED: LIDOCAINE HCL 2% LOCAL 20 ML VIAL ONE (16:05)
[2018-02-27] MEDS ORDERED: SODIUM CHLORIDE 0.9% 500ML 500 ML ONE (16:06)
[2018-02-27] MEDS ORDERED: HEPARIN SOD (PORCINE) 1000 UNIT/ML SDV IV ONE (16:45)
[2018-02-27 18:00] LABS: ALBUMIN 2.9 g/dL (3.5-5.0); ALBUMIN/GLOBULIN RATIO 0.6 (0.8-2.0); ANION GAP 19.4 mmol/L (8-16); CREATININE, SERUM 6.34 mg/dL (0.57-1.11); POTASSIUM 3.4 mmol/L (3.5-5.1)
[2018-02-27 18:03] LABS: CALCIUM 6.9 mg/dL (8.4-10.2)
[2018-02-27] MEDS ORDERED: CALCIUM GLUCONATE 10% INJ 4.65 MEQ in SODIUM CHLORIDE 0.9% 50ML 50 ML IV ONE (18:15)
[2018-02-27 21:06] VITALS: BP 175/104
[2018-02-27] MEDS ORDERED: HEPARIN 500 UNITS/5ML MDV INJ PRN (21:30)
--- NOTE | 2018-02-28 14:57 | Diagnostic Imaging Report ---
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 The patient's heart rate and pulse oximetry were continuously monitored by the interventional radiology nurse. Blood pressure was monitored at 5 minute intervals. Total intraservice time for sedation: 35 minutes Additional Medications: Lidocaine 1% for local anesthesia Fluoroscopy time: 0.8 Dose-area Product: 1.83 Gycm2. Frontal Air Kerma: 5.66 mGy Contrast used: None Estimated blood loss: Less than 10 cc Specimens: Tunneled hemodialysis catheter, discarded Implants: 14.5 [place], 19 cm tip-cuff tunneled hemodialysis catheter Condition at completion: Stable Disposition: Return to emergency center DISCUSSION: Informed consent was obtained and documented in the medical record. The patient was placed in the supine position on the fluoroscopic table. The right upper chest and existing tunneled hemodialysis catheter were prepped and draped in standard sterile fashion. 1% lidocaine was infiltrated into the skin and subcutaneous tissues along the existing catheter for local anesthesia. The retention cuff of the existing catheter was freed by gentle blunt dissection. A 0.0 3 5-in. Amplatz Super Stiff wire was then advanced through the catheter and into the inferior vena cava under fluoroscopic guidance. The catheter was then removed over the wire and a new 19 cm tip-cuff, 14.5 [place] dual lumen tunneled hemodialysis catheter was advanced over the wire under fluoroscopic guidance. The wire was removed and the catheter tip was positioned in the mid right atrium. Each lumen was tested and showed adequate bidirectional flow. Each lumen was then packed with 2500 units of heparin. The catheter was secured to the skin with monofilament nylon suture and a sterile dressing was applied. The patient tolerated the procedure well without immediate complication. : IMPRESSION: Successful fluoroscopic guided exchange of a tunneled hemodialysis catheter (19 cm tip-cuff, 14.5 [place]) without immediate complication. Signed by: Dr. Arjun Villeda M.D. on 02/28/2018 2:54 PM
--- NOTE | 2018-02-28 14:57 | Diagnostic Imaging Report ---
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 The patient's heart rate and pulse oximetry were continuously monitored by the interventional radiology nurse. Blood pressure was monitored at 5 minute intervals. Total intraservice time for sedation: 35 minutes Additional Medications: Lidocaine 1% for local anesthesia Fluoroscopy time: 0.8 Dose-area Product: 1.83 Gycm2. Frontal Air Kerma: 5.66 mGy Contrast used: None Estimated blood loss: Less than 10 cc Specimens: Tunneled hemodialysis catheter, discarded Implants: 14.5 [place], 19 cm tip-cuff tunneled hemodialysis catheter Condition at completion: Stable Disposition: Return to emergency center DISCUSSION: Informed consent was obtained and documented in the medical record. The patient was placed in the supine position on the fluoroscopic table. The right upper chest and existing tunneled hemodialysis catheter were prepped and draped in standard sterile fashion. 1% lidocaine was infiltrated into the skin and subcutaneous tissues along the existing catheter for local anesthesia. The retention cuff of the existing catheter was freed by gentle blunt dissection. A 0.0 3 5-in. Amplatz Super Stiff wire was then advanced through the catheter and into the inferior vena cava under fluoroscopic guidance. The catheter was then removed over the wire and a new 19 cm tip-cuff, 14.5 [place] dual lumen tunneled hemodialysis catheter was advanced over the wire under fluoroscopic guidance. The wire was removed and the catheter tip was positioned in the mid right atrium. Each lumen was tested and showed adequate bidirectional flow. Each lumen was then packed with 2500 units of heparin. The catheter was secured to the skin with monofilament nylon suture and a sterile dressing was applied. The patient tolerated the procedure well without immediate complication. : IMPRESSION: Successful fluoroscopic guided exchange of a tunneled hemodialysis catheter (19 cm tip-cuff, 14.5 [place]) without immediate complication. Signed by: Dr. Arjun Villeda M.D. on 02/28/2018 2:54 PM
== END 2018-02-27 21:42 | disposition home or self-care (01) ==
LOC: ER 13:09
DX: R07.89 Other chest pain (principal); R06.00 Dyspnea, unspecified; R10.12 Left upper quadrant pain; R11.0 Nausea; I12.0 Hypertensive chronic kidney disease with stage 5 chronic kidney disease or end stage renal disease; E11.22 Type 2 diabetes mellitus with diabetic chronic kidney disease; N18.6 End stage renal disease; Z99.2 Dependence on renal dialysis; G40.909 Epilepsy, unspecified, not intractable, without status epilepticus
CPT/HCPCS: 36415; 36581; 71045; 74470; 77001; 80053; 82550; 82553; 82948; 83735; 84484; 85025; 93005; 99284; C1769; J0360; J1644; J1817; J2001; J2250; J2270; J2550; J7040; J7799; 99152; 99153

== ENCOUNTER 2018-10-17 03:18 | Emergency (ER) | payer MEDICARE, OTHER ==
[~2018-10-17] VITALS: Ht 160 cm; Wt 52.2 kg
--- OUTSIDE RECORDS SUMMARY | 2018-10-17 03:24 | XMS REPORT | Clinical Summary ---
Author Author [facility] Address Unknown Phone Unavailable Care Team Providers Care Billing Clerk Name Role Phone Ger Mukherjee MD PCP [...] 2 (two) times a day with meals. 02/19/2019 Active insulin GLARGINE (LANTUS) Inject 7 10 mL 11 100 unit/mL injection Units under 8 (vial) the skin daily before breakfast. 02/19/2019 Active clopidogrel (PLAVIX) 75 Take 1 tablet 30 tablet 0 mg tablet (75 mg total) 8 by mouth daily. Active methocarbamol (ROBAXIN) Take 1 tablet 40 tablet 0 500 MG tablet (500 mg 8 total) by mouth every 6 (six) hours. 02/19/2019 Active losartan (COZAAR) 50 MG Take [...] vomiting for up to 7 days. 05/20/2018 cinacalcet (SENSIPAR) 30 Take 1 tablet 30 tablet 0 MG tablet (30 mg total) 8 by mouth daily for 90 days. 03/20/2018 baclofen 5 mg tablet Take 5 mg by 21 tablet 0 mouth 3 8 (three) times a day for 30 days. 03/12/2018 minocycline Take 1 44 capsule 0 (MINOCIN,DYNACIN) 100 MG capsule (100 8 capsule mg total) by mouth every 12 (twelve) hours for 22 days. 03/12/2018 vancomycin (VANCOCIN) Infuse 1,000 1 each 0 IVPB 1 gram ADD-[place] mg into a 8 in 100 mLIndications: venous Give on mondays, catheter wednesdays, and fridays every other after dialysis day for 22 days. 03/20/2018 B complex-vitamin C-folic Take 1 tablet 30 tablet 0 acid (FOLBEE PLUS 5 MG) 5 by mouth 8 mg tablet per tablet daily for 30 days. Active Problems Problem Noted Date Chest [...] Transplant Karolina Ren 01/30/2018 Documentation Cardiology Kristopher Amaya DO Asbury, James F., MD High anion gap metabolic acidosis (Primary Dx); Anemia, unspecified type; Chest pain, unspecified type; Elevated brain natriuretic peptide (BNP) level 01/26/2018 [facility] General Internal Medicine - Encounter 02/18/2018 [...] unspecified CKD stage; Leg swelling; Anxiety 12/27/2017 [facility] Internal Medicine - Encounter 01/03/2018 after 10/16/2017 Immunizations Name Dates Previously Given Next Due [...] Taken Vital Sign Reading 02/20/2018 2:16 AM NOVELTY PRINTING MACHINE OPERATOR Blood Pressure 130/73 02/20/2018 2:16 AM NOVELTY PRINTING MACHINE OPERATOR Pulse 97 02/19/2018 8:39 PM NOVELTY PRINTING MACHINE OPERATOR Temperature 36.5 C (97.7 F) 02/20/2018 2:16 AM NOVELTY PRINTING MACHINE OPERATOR Respiratory Rate 18 02/20/2018 2:16 AM NOVELTY PRINTING MACHINE OPERATOR Oxygen Saturation 98% - Inhaled Oxygen - Concentration 01/31/2018 11:01 AM CDT Weight 67.5 kg (148 lb 14.4 oz) 02/19/2018 8:52 PM NOVELTY PRINTING MACHINE OPERATOR Height 160 cm (5' 3") 12/28/2017 5:56 AM CDT Body Mass Index 26.38 Plan of Treatment Health Maintenance Due Date Last Done Comments DIABETIC RETINAL EYE EXAM 1987 DIABETIC FOOT EXAM 11/10/1997 URINE MICROALBUMIN 11/10/1997 INFLUENZA VACCINE 11/13/2018 02/16/2018 Implants Device Identifier Shelf Expiration Date Model / Serial / Lot Implanted Type Area Manufactur er Defibrillators & Leads Defibrilla tors & Leads 10/12/2020 CS [id number] IM / / [id number] Set Cathztn Hmodial Lngtrm Accs Surgical N/A: N/A ARROW 15fr 24cm Edge Simplicity - Implants; [employer] [id number] Expanders; [employer] Implanted: 01/02/2018 (Quantity not Extenders; on file) Surgical Wires Procedures Comments Procedure Name Priority Date/Time Associated Diagnosis CT LUMBAR SPINE WO STAT 02/20/2018 CONTRAST 1:01 AM NOVELTY PRINTING MACHINE OPERATOR CT HEAD WO CONTRAST STAT 02/20/2018 12:56 AM NOVELTY PRINTING MACHINE OPERATOR XR CHEST 1 VW PORTABLE STAT 02/20/2018 12:02 AM NOVELTY PRINTING MACHINE OPERATOR HCG QUALITATIVE, SERUM STAT 02/19/2018 SCREEN 11:45 PM NOVELTY PRINTING MACHINE OPERATOR PROTHROMBIN TIME WITH INR STAT 02/19/2018 10:39 PM NOVELTY PRINTING MACHINE OPERATOR PARTIAL THROMBOPLASTIN STAT 02/19/2018 TIME (PTT) 10:39 PM NOVELTY PRINTING MACHINE OPERATOR CREATINE KINASE, TOTAL STAT 02/19/2018 (CPK) 10:39 PM NOVELTY PRINTING MACHINE OPERATOR ESTIMATED GFR STAT 02/19/2018 10:39 PM NOVELTY PRINTING MACHINE OPERATOR B NATRIURETIC PEPTIDE STAT 02/19/2018 10:39 PM NOVELTY PRINTING MACHINE OPERATOR TROPONIN STAT 02/19/2018 10:39 PM NOVELTY PRINTING MACHINE OPERATOR BETA HYDROXYBUTYRATE STAT 02/19/2018 10:39 PM NOVELTY PRINTING MACHINE OPERATOR COMPREHENSIVE METABOLIC STAT 02/19/2018 PANEL 10:39 PM NOVELTY PRINTING MACHINE OPERATOR HC COMPLETE BLD COUNT STAT 02/19/2018 W/AUTO DIFF 10:39 PM NOVELTY PRINTING MACHINE OPERATOR ECG ED PRELIMINARY Routine 02/19/2018 INTERPRETATION 9:56 PM NOVELTY PRINTING MACHINE OPERATOR POC GLUCOSE Routine 02/19/2018 9:36 PM NOVELTY PRINTING MACHINE OPERATOR ECG 12-LEAD STAT 02/19/2018 9:07 PM NOVELTY PRINTING MACHINE OPERATOR POC GLUCOSE Routine 02/18/2018 1:46 PM NOVELTY PRINTING MACHINE OPERATOR POC GLUCOSE Routine 02/18/2018 12:19 PM NOVELTY PRINTING MACHINE OPERATOR POC GLUCOSE Routine 02/18/2018 7:44 AM NOVELTY PRINTING MACHINE OPERATOR POC GLUCOSE Routine 02/18/2018 7:03 AM NOVELTY PRINTING MACHINE OPERATOR POC GLUCOSE Routine 02/18/2018 1:28 AM NOVELTY PRINTING MACHINE OPERATOR POC GLUCOSE Routine 02/17/2018 9:13 PM NOVELTY PRINTING MACHINE OPERATOR POC GLUCOSE Routine 02/17/2018 5:37 PM NOVELTY PRINTING MACHINE OPERATOR ULTRAFILTRATION Routine 02/17/2018 5:07 PM NOVELTY PRINTING MACHINE OPERATOR POC GLUCOSE Routine 02/17/2018 3:38 PM NOVELTY PRINTING MACHINE OPERATOR POC GLUCOSE Routine 02/17/2018 1:24 PM NOVELTY PRINTING MACHINE OPERATOR POC GLUCOSE Routine 02/17/2018 12:14 PM NOVELTY PRINTING MACHINE OPERATOR POC GLUCOSE Routine 02/17/2018 9:43 AM NOVELTY PRINTING MACHINE OPERATOR POC GLUCOSE Routine 02/17/2018 8:01 AM NOVELTY PRINTING MACHINE OPERATOR SMEAR REVIEW Routine 02/17/2018 4:30 AM NOVELTY PRINTING MACHINE OPERATOR HC COMPLETE BLD COUNT Routine 02/17/2018 W/AUTO DIFF 4:30 AM NOVELTY PRINTING MACHINE OPERATOR POC GLUCOSE Routine 02/17/2018 4:14 AM NOVELTY PRINTING MACHINE OPERATOR ESTIMATED GFR Routine 02/17/2018 4:00 AM NOVELTY PRINTING MACHINE OPERATOR BASIC METABOLIC PANEL Routine 02/17/2018 4:00 AM NOVELTY PRINTING MACHINE OPERATOR POC GLUCOSE Routine 02/16/2018 11:06 PM NOVELTY PRINTING MACHINE OPERATOR POC GLUCOSE Routine 02/16/2018 8:45 PM NOVELTY PRINTING MACHINE OPERATOR POC GLUCOSE Routine 02/16/2018 6:20 PM NOVELTY PRINTING MACHINE OPERATOR POC GLUCOSE Routine 02/16/2018 5:35 PM NOVELTY PRINTING MACHINE OPERATOR HEMODIALYSIS Routine 02/16/2018 2:21 PM NOVELTY PRINTING MACHINE OPERATOR POC GLUCOSE Routine 02/16/2018 1:37 PM NOVELTY PRINTING MACHINE OPERATOR POC GLUCOSE Routine 02/16/2018 12:29 PM NOVELTY PRINTING MACHINE OPERATOR POC GLUCOSE Routine 02/16/2018 7:57 AM NOVELTY PRINTING MACHINE OPERATOR POC GLUCOSE Routine 02/15/2018 9:54 PM CDT [...] CDT ECHOCARDIOGRAM WITH Routine 01/29/2018 AGITATED SALINE (32491) 10:05 AM CDT POC GLUCOSE Routine 01/29/2018 [...] MMODE SPECTRAL 9:36 AM CDT COLOR DOPPLER ([id number]) POC GLUCOSE Routine 12/30/2017 7:43 AM CDT [...] 12-LEAD STAT 12/27/2017 9:43 PM CDT after 10/16/2017 Results * CT Lumbar Spine Wo Contrast (02/20/2018 1:01 AM NOVELTY PRINTING MACHINE OPERATOR) Specimen Narrative Performed At EXAMINATION: CT LUMBAR SPINE WO CONTRAST [facility] CLINICAL HISTORY: low back pain COMPARISON:None [...] acute osseous abnormality of the lumbar spine. [id number] Procedure Note Hm Interface, Radiology Results Incoming - 02/20/2018 1:10 AM NOVELTY PRINTING MACHINE OPERATOR EXAMINATION: CT LUMBAR SPINE WO CONTRAST CLINICAL [...] acute osseous abnormality of the lumbar spine. [facility]-[id number] Performing Organization Address City/State/Zipcode Phone Number [facility] [address] [place] [address] * CT Head Wo Contrast (02/20/2018 12:56 AM NOVELTY PRINTING MACHINE OPERATOR) Only the most recent of 3 results within the time period is included. Specimen Narrative Performed At EXAMINATION: CT HEAD WO [...] normal. IMPRESSION: No acute intracranial abnormality identified. [facility]-[id number] Procedure Note Interface, Radiology Results Incoming - 02/20/2018 1:07 AM NOVELTY PRINTING MACHINE OPERATOR EXAMINATION: CT HEAD WO CONTRAST CLINICAL HISTORY: [...] normal. IMPRESSION: No acute intracranial abnormality identified. [id number] Performing Organization Address City/State/Zipcode Phone Number [facility] [address] [place] [address] * XR Chest 1 Vw Portable (02/20/2018 12:02 AM NOVELTY PRINTING MACHINE OPERATOR) Only the most recent of 4 results within the time period is included. Specimen Narrative Performed At Examination:[facility]ST 1 [facility] Clinical History:Shortness of breath Comparison: 01/31/2018 Technique: [...] lung volume with vascular crowding or congestion. [facility]-[id number] Procedure Note Interface, Radiology Results Incoming - 02/20/2018 12:08 AM NOVELTY PRINTING MACHINE OPERATOR Examination: XR CHEST 1 VW PORTABLE Clinical [...] lung volume with vascular crowding or congestion. [facility]-[id number] Performing Organization Address City/[facility]/[place] [address] * hCG qualitative, serum screen (02/19/2018 11:45 PM NOVELTY PRINTING MACHINE OPERATOR) Only the most recent of 2 results within the time period is included. [facility] hCG NegativeComment: Sensitivity [facility] qualitative, of HCG test: 25 mIU/mL OF PATHOLOGY serum AND GENOMIC MEDICINE Specimen Blood Performing Organization Address [facility] Phone Number [facility] DEPARTMENT OF [address] [place] [address] PATHOLOGY AND GENOMIC MEDICINE * Estimated GFR (02/19/2018 10:39 PM NOVELTY PRINTING MACHINE OPERATOR) Only the most recent of 18 results within the time period is included. [facility] Estimated GFR 10 (A) mL/min/1.73 m2 [facility] Comment: OF PATHOLOGY CatergoryUnitsInte AND GENOMIC rpretation MEDICINE G1 >=90 Normal or high G2 60-89Mildly decreased [id number] Mildly to moderately decreased [id number] Moderately to severely decreased G4 15-29Severely decreased G5 <15Kidney failure The eGFR was calculated using the Chronic Kidney Disease Epidemiology Collaboration (CKD-EPI) equation. Interpretation is based on recommendations of the National Kidney Foundation-Kidney Disease Outcomes Quality Initiative (NKF-KDOQI) published in 2014. Specimen Plasma specimen Performing Organization Address City/[facility] Phone Number [facility] OF [address] [place] [address] PATHOLOGY AND GENOMIC MEDICINE * Beta hydroxybutyrate (02/19/2018 10:39 PM NOVELTY PRINTING MACHINE OPERATOR) [facility] Beta 0.07 0.02 - 0.27 mmol/L [facility] hydroxybutyrate OF PATHOLOGY AND GENOMIC MEDICINE Specimen Serum Performing Organization Address [facility] Phone Number [facility] OF [address] [place] [address] PATHOLOGY AND GENOMIC MEDICINE * Troponin (02/19/2018 10:39 PM NOVELTY PRINTING MACHINE OPERATOR) Only the most recent of 7 results within the time period is included. Pathologist [facility] Troponin <0.30 0.00 - 0.30 ng/mL [facility] Comment: OF PATHOLOGY 0.30 - 1.49 AND GENOMIC ng/mlMa MEDICINE indicate increased risk of acute coronary syndrome. >=1.5 ng/ml Consistent with acute myocardial infarction. The diagnostic value of a single normal or non-diagnostic result is questionable.Serial samples at 2-6 hour intervals are required to rule out acute myocardial injury. Specimen Plasma specimen Performing Organization Address City/[facility]/Zipcode Phone Number [facility] DEPARTMENT OF [address] [place] [address] PATHOLOGY AND [facility] * Partial thromboplastin time, activated (02/19/2018 10:39 PM NOVELTY PRINTING MACHINE OPERATOR) Only the most recent of 4 results within the time period is included. Pathologist [facility] PTT 44.7 (H) 23.0 - 36.0 sec [facility] Comment: OF PATHOLOGY PTT therapeutic range for AND GENOMIC unfractionated heparin is MEDICINE 61.0-112.0 seconds which corresponds to Anti-Xa 0.3-0.7 U/ml. Specimen Blood Performing Organization Address [facility] Phone Number [place] [place] [address] PATHOLOGY AND [facility] * Prothrombin time with INR (02/19/2018 10:39 PM NOVELTY PRINTING MACHINE OPERATOR) Only the most recent of 4 results within the time period is included. Pathologist [facility] Prothrombin 15.7 (H) 11.5 - 14.5 sec [facility] time OF PATHOLOGY AND [employer] MEDICINE INR 1.3 [facility] Comment: OF PATHOLOGY The International Normalized AND GENOMIC Ratio (INR) is a therapeutic MEDICINE monitoring tool for patients who are stable on oral anticoagulant therapy. An INR of 2.0-3.0 is suggested for deep vein thrombosis/pulmonary embolism. Specimen Blood Performing Organization Address City/[facility]/Zipcode Phone Number [facility] [place] [address] PATHOLOGY AND [facility] MEDICINE * CBC with platelet and differential (02/19/2018 10:39 PM NOVELTY PRINTING MACHINE OPERATOR) Only the most recent of 13 results within the time period is included. Pathologist [facility] WBC 5.22 4.50 - 11.00 k/uL [facility] OF PATHOLOGY AND GENOMIC MEDICINE RBC 4.05 (L) 4.20 - 5.50 m/uL [facility] OF PATHOLOGY AND GENOMIC MEDICINE HGB 11.5 (L) 12.0 - 16.0 g/dL [facility] OF PATHOLOGY AND GENOMIC MEDICINE HCT 39.6 37.0 - 47.0 % [facility] OF PATHOLOGY AND GENOMIC MEDICINE MCV 97.8 82.0 - 100.0 fL [facility] OF PATHOLOGY AND GENOMIC MEDICINE MCH 28.4 27.0 - 34.0 pg [facility] OF PATHOLOGY AND GENOMIC MEDICINE MCHC 29.0 (L) 31.0 - 37.0 g/dL [facility] OF PATHOLOGY AND GENOMIC MEDICINE RDW - SD 65.5 (H) 37.0 - 55.0 fL [facility] OF PATHOLOGY AND GENOMIC MEDICINE MPV 10.4 8.8 - 13.2 fL [facility] OF PATHOLOGY AND GENOMIC MEDICINE Platelet count 147 (L) 150 - 400 k/uL [facility] OF PATHOLOGY AND GENOMIC MEDICINE Nucleated RBC 0.00 /100 WBC [facility] OF PATHOLOGY AND GENOMIC MEDICINE Neutrophils 71.7 (H) 39.0 - 69.0 % [facility] OF PATHOLOGY AND GENOMIC MEDICINE Lymphocytes 17.6 (L) 25.0 - 45.0 % [facility] OF PATHOLOGY AND GENOMIC MEDICINE Monocytes 8.0 0.0 - 10.0 % [facility] OF PATHOLOGY AND GENOMIC MEDICINE Eosinophils 1.7 0.0 - 5.0 % [facility] OF PATHOLOGY AND GENOMIC MEDICINE Basophils 0.6 0.0 - 1.0 % [facility] OF PATHOLOGY AND GENOMIC MEDICINE Immature 0.4Comment: "Immature 0.0 - 1.0 % [facility] granulocytes granulocytes" (promyelocytes, OF PATHOLOGY myelocytes, metamyelocytes) AND GENOMIC MEDICINE Specimen Blood Performing Organization Address City/[facility]/Zipcode Phone Number [facility]PART[facility] OF [address] [place] [address] PATHOLOGY AND GENOMIC MEDICINE * B natriuretic peptide (02/19/2018 10:39 PM NOVELTY PRINTING MACHINE OPERATOR) Only the most recent of 4 results within the time period is included. BNP 506 (H) 0 - 100 pg/mL [facility] OF PATHOLOGY AND GENOMIC MEDICINE Specimen Blood Performing Organization Address City/[facility]/Zipcode Phone Number [facility] [address] [address] PATHOLOGY AND GENOMIC MEDICINE * Creatine kinase, total (CPK) (02/19/2018 10:39 PM NOVELTY PRINTING MACHINE OPERATOR) Pathologist [facility] Creatine kinase 40 26 - 192 U/L [facility] OF PATHOLOGY AND GENOMIC MEDICINE Specimen Plasma specimen Performing Organization Address City/State/Zipcode Phone Number [facility] OF [address] [place] [address] PATHOLOGY AND GENOMIC MEDICINE * Comprehensive metabolic panel (02/19/2018 10:39 PM NOVELTY PRINTING MACHINE OPERATOR) Only the most recent of 8 results within the time period is included. Pathologist [facility] Sodium 137 135 - 148 mEq/L [facility] OF PATHOLOGY AND GENOMIC MEDICINE Potassium 3.9 3.5 - 5.0 mEq/L [facility] OF PATHOLOGY AND GENOMIC MEDICINE Chloride 98 98 - 112 mEq/L [facility] OF PATHOLOGY AND GENOMIC MEDICINE CO2 20 (L) 24 - 31 mEq/L [facility] OF PATHOLOGY AND GENOMIC MEDICINE Anion gap 19@ANIO (H) 7 - 15 mEq/L [facility] OF PATHOLOGY AND GENOMIC MEDICINE BUN 35 (H) 6 - 20 mg/dL [facility] OF PATHOLOGY AND GENOMIC MEDICINE Creatinine 5.83 (H) 0.50 - 0.90 mg/dL [facility] OF PATHOLOGY AND GENOMIC MEDICINE Glucose 138 (H) 65 - 99 mg/dL [facility] OF PATHOLOGY AND GENOMIC MEDICINE Calcium 9.0 8.3 - 10.2 mg/dL [facility] OF PATHOLOGY AND GENOMIC MEDICINE Protein 8.5 (H) 6.3 - 8.3 g/dL [facility] Comment: OF PATHOLOGY [place] AND GENOMIC 4.6-7.0 g/dL MEDICINE 1 week 4.4-7.6 g/dL 7 months-1year 5.1-7.3 g/dL 1-2 years5.6-7 .5 g/dL >3 years6.0-8 .0 g/dL 18-150 6.3-8.3 g/dL Albumin 2.6 (L) 3.5 - 5.0 g/dL [facility] OF PATHOLOGY AND GENOMIC MEDICINE A/G ratio 0.4 (L) 0.7 - 3.8 [facility] OF PATHOLOGY AND GENOMIC MEDICINE Alkaline 205 (H) 35 - 104 U/L [facility] phosphatase OF PATHOLOGY AND GENOMIC MEDICINE AST 29 10 - 35 U/L [facility] OF PATHOLOGY AND GENOMIC MEDICINE ALT 25 5 - 50 U/L [facility] OF PATHOLOGY AND GENOMIC MEDICINE Total bilirubin 0.3 0.0 - 1.2 mg/dL [facility] OF PATHOLOGY AND GENOMIC MEDICINE Specimen Plasma specimen Performing Organization Address City/[facility] Phone Number [facility] OF [address] [place] [address] PATHOLOGY AND GENOMIC MEDICINE * ECG ED Preliminary Interpretation - NOT AN ORDER (02/19/2018 9:56 PM NOVELTY PRINTING MACHINE OPERATOR) Only the most recent of 2 results within the time period is included. Narrative Performed At Kourtney Sanchez MD 02/20/20185:40 PM ECG ED Preliminary Interpretation - Not an Order Performed by: KOURTNEY SANCHEZ Authorized by: KOURTNEY SANCHEZ ECG reviewed by ED Physician in the absence of a manager ccu: yes Previous ECG: Previous ECG:Compared to current [...] normal * POC glucose (02/19/2018 9:36 PM NOVELTY PRINTING MACHINE OPERATOR) Only the most recent of 165 results within the time period is included. POC glucose 148 (H) 65 - 99 mg/dL [facility] Comment: OF PATHOLOGY No Action Needed AND GENOMIC Meter ID: [id number] MEDICINE Wrapper Rewinder: Roel Dorsey Specimen Performing Organization Address City/[facility] Phone Number [facility] OF [address] [place] [address] PATHOLOGY AND GENOMIC MEDICINE * ECG 12 lead (02/19/2018 9:07 PM NOVELTY PRINTING MACHINE OPERATOR) Only the most recent of 4 results within the time period is included. Ventricular 101 [facility] rate Atrial rate 101 [facility] LA interval 186 [facility] QRSD interval 100 [facility] QT interval 392 [facility] QTC interval 508 [facility] P axis 1 58 [facility] QRS axis 1 -9 [facility] T wave axis 75 [facility] EKG impression Sinus tachycardia-Nonspecific [facility] ST and T wave abnormality-Abnormal ECG-In automated comparison with ECG of 26-JAN-2018 23:47,-Nonspecific T wave abnormality no longer evident in Inferior leads-T wave inversion no longer evident in Lateral leads- Specimen Performing Organization Address City/[facility] Phone Number [facility] [address] [place] [address] * Smear review (02/17/2018 4:30 AM NOVELTY PRINTING MACHINE OPERATOR) Platelet slide Kenia adequate [facility] review OF PATHOLOGY AND GENOMIC MEDICINE Anisocytosis Moderate [facility] OF PATHOLOGY AND GENOMIC MEDICINE Polychromasia Moderate [facility] OF PATHOLOGY AND GENOMIC MEDICINE Ovalocytes Moderate [facility] OF PATHOLOGY AND GENOMIC MEDICINE Specimen Performing Organization Address [facility] Phone Number [facility] OF [address] [place], [place] [phone] PATHOLOGY AND GENOMIC MEDICINE * Basic metabolic panel (02/17/2018 4:00 AM NOVELTY PRINTING MACHINE OPERATOR) Only the most recent of 10 results within the time period is included. Sodium 136 135 - 148 mEq/L [facility] OF PATHOLOGY AND GENOMIC MEDICINE Potassium 4.8 3.5 - 5.0 mEq/L [facility] OF PATHOLOGY AND GENOMIC MEDICINE Chloride 97 (L) 98 - 112 mEq/L [facility] OF PATHOLOGY AND GENOMIC MEDICINE CO2 22 (L) 24 - 31 mEq/L [facility] OF PATHOLOGY AND GENOMIC MEDICINE Anion gap 17@ANIO (H) 7 - 15 mEq/L [facility] OF PATHOLOGY AND GENOMIC MEDICINE BUN 32 (H) 6 - 20 mg/dL [facility] OF PATHOLOGY AND GENOMIC MEDICINE Creatinine 5.52 (H) 0.50 - 0.90 mg/dL [facility] OF PATHOLOGY AND GENOMIC MEDICINE Glucose 72 65 - 99 mg/dL [facility] OF PATHOLOGY AND GENOMIC MEDICINE Calcium 8.8 8.3 - 10.2 mg/dL [facility] OF PATHOLOGY AND GENOMIC MEDICINE Specimen Plasma specimen Performing Organization Address [facility]/Zipcode Phone Number [facility] OF [address] [place] [phone] PATHOLOGY AND GENOMIC MEDICINE * CT Angiogram Pe Chest (02/14/2018 6:51 PM CDT) Specimen Narrative Performed At EXAMINATION: RADIANT CT ANGIOGRAM [...] axillary lymphadenopathy, stable when compared to prior. [id number] Procedure Note [facility], Radiology Results Incoming - 02/14/2018 7:17 PM [...] axillary lymphadenopathy, stable when compared to prior. [id number] Performing Organization Address City/[facility] Phone Number [place] [phone] [place] [address] * Magnesium level (02/14/2018 12:00 PM CDT) Only the most recent of 3 results within the time period is included. Magnesium 2.5 1.6 - 2.6 mg/dL [facility] OF PATHOLOGY AND GENOMIC MEDICINE Specimen Plasma specimen Performing Organization Address City/[facility] Phone Number [address] [address] PATHOLOGY AND GENOMIC MEDICINE * Phosphorus level (02/10/2018 4:56 AM CDT) Only the most recent of 2 results within the time period is included. Phosphorus 2.1 (L) 2.4 - 4.5 mg/dL [facility] OF PATHOLOGY AND GENOMIC MEDICINE Specimen Plasma specimen Performing Organization Address City/[facility] Phone Number [place] [place] [address] PATHOLOGY AND GENOMIC MEDICINE * Free phenytoin level (02/10/2018 4:56 AM CDT) Phenytoin, free 0.49 (L) 1.00 - 2.00 ug/mL [facility] OF PATHOLOGY AND GENOMIC MEDICINE Specimen Blood Performing Organization Address [facility] Phone Number [facility] [place] [address] PATHOLOGY AND GENOMIC MEDICINE * Phenytoin level (02/10/2018 4:56 AM CDT) Only the most recent of 4 results within the time period is included. Phenytoin 3.5 (L) 10.0 - 20.0 ug/mL [facility] Comment: OF PATHOLOGY Therapeutic Range: AND GENOMIC 10 - 20 ug/mL MEDICINE Specimen Plasma specimen Performing Organization Address [facility] Phone Number [facility] [place] [address] PATHOLOGY AND GENOMIC MEDICINE * Sedimentation rate (02/08/2018 3:30 PM CDT) Only the most recent of 2 results within the time period is included. Sedimentation 38 (H) 0 - 20 mm/hr [facility] rate OF PATHOLOGY AND GENOMIC MEDICINE Specimen Blood Performing Organization Address [facility] Phone Number [facility] [place] [address] PATHOLOGY AND GENOMIC MEDICINE * C-reactive protein (02/08/2018 11:54 AM CDT) Only the most recent of 2 results within the time period is included. CRP 0.43 0.00 - 0.50 mg/dL [facility] OF PATHOLOGY AND GENOMIC MEDICINE Specimen Plasma specimen Performing Organization Address [facility] Phone Number [facility] [place] [address] PATHOLOGY AND GENOMIC MEDICINE * MRI Shoulder Wo Contrast Left (02/07/2018 12:50 PM CDT) Specimen Narrative Performed At [facility] EXAMINATION:MRI SHOULDER WO [...] SOFT TISSUES: Extensive periarticular soft tissue edema. [facility]-[id number] Procedure Note Interface, Radiology Results Incoming - [...] SOFT TISSUES: Extensive periarticular soft tissue edema. [facility]-[id number] Performing Organization Address City/State/Zipcode Phone Number [facility] [address] [place] [address] * MRI Cervical Spine Wo Contrast (02/07/2018 12:20 PM CDT) Specimen Narrative Performed At [facility] EXAMINATION: MRI CERVICAL [...] IMPRESSION: No significant cervical spine abnormality identified. [facility]-[id number] Procedure Note Hm Interface, Radiology Results Incoming [...] IMPRESSION: No significant cervical spine abnormality identified. [id number] Performing Organization Address [facility]/Zipcode Phone Number [facility] [address] [place] [address] * MRI Brain Wo Contrast (02/07/2018 11:50 AM CDT) Specimen Narrative Performed At EXAMINATION:MRI BRAIN WO CONTRAST [...] unremarkable. IMPRESSION: No acute intracranial abnormality. [id number] Procedure Note Interface, Radiology Results Incoming - [...] unremarkable. IMPRESSION: No acute intracranial abnormality. [facility][id number] Performing Organization Address [facility] Phone Number [facility] [address] [place] [address] * NM Bone Scan 3 Phase (02/05/2018 1:20 PM CDT) Specimen Narrative Performed At PROCEDURE:NM BONE SCAN 3 [...] suggest osteomyelitis involving the proximal left humerus. [id number] Procedure Note [facility], Radiology Results Incoming - 02/05/2018 1:36 PM [...] suggest osteomyelitis involving the proximal left humerus. [id number] Performing Organization Address City/State/Zipcode Phone Number [facility] [address] [place] [address] * CBC hemogram (02/04/2018 11:30 AM CDT) Only the most recent of 3 results within the time period is included. WBC 3.45 (L) 4.50 - 11.00 k/uL [facility] OF PATHOLOGY AND GENOMIC MEDICINE RBC 3.26 (L) 4.20 - 5.50 m/uL [facility] OF PATHOLOGY AND GENOMIC MEDICINE HGB 9.0 (L) 12.0 - 16.0 g/dL [facility] OF PATHOLOGY AND GENOMIC MEDICINE HCT 31.3 (L) 37.0 - 47.0 % [facility] OF PATHOLOGY AND GENOMIC MEDICINE MCV 96.0 82.0 - 100.0 fL [facility] OF PATHOLOGY AND GENOMIC MEDICINE MCH 27.6 27.0 - 34.0 pg [facility] OF PATHOLOGY AND GENOMIC MEDICINE MCHC 28.8 (L) 31.0 - 37.0 g/dL [facility] OF PATHOLOGY AND GENOMIC MEDICINE RDW - SD 61.7 (H) 37.0 - 55.0 fL [facility] OF PATHOLOGY AND GENOMIC MEDICINE MPV 10.8 8.8 - 13.2 fL [facility] OF PATHOLOGY AND GENOMIC MEDICINE Platelet count 142 (L) 150 - 400 k/uL [facility] OF PATHOLOGY AND GENOMIC MEDICINE Nucleated RBC 0.00 /100 WBC [facility] OF PATHOLOGY AND GENOMIC MEDICINE Specimen Blood Performing Organization Address City/[facility] Phone Number [facility] [address] [place] [address] PATHOLOGY AND [employer] MEDICINE * Urine drugs of abuse screen (02/02/2018 1:41 PM CDT) Only the most recent of 2 results within the time period is included. Amphetamine Negative [facility] screen, urine OF PATHOLOGY AND GENOMIC MEDICINE Barbiturate Negative [facility] screen, urine OF PATHOLOGY AND GENOMIC MEDICINE Benzodiazepine Negative [facility] screen, urine OF PATHOLOGY AND GENOMIC MEDICINE Cannabinoid Negative [facility] screen, urine OF PATHOLOGY AND GENOMIC MEDICINE Cocaine screen, Negative [facility] urine OF PATHOLOGY AND GENOMIC MEDICINE Methadone Negative [facility] metabolite OF PATHOLOGY (EDDP), urine AND GENOMIC MEDICINE Opiates screen, Positive (A) [facility] urine OF PATHOLOGY AND GENOMIC MEDICINE Oxycodone Negative [facility] screen, urine OF PATHOLOGY AND GENOMIC MEDICINE Phencyclidine Negative [facility] screen, urine OF PATHOLOGY AND GENOMIC MEDICINE Tricyclic Negative [facility] screen, urine Comment: OF PATHOLOGY Drug screen minimum AND GENOMIC concentration of detectability MEDICINE Amphetamines 1000 ng/mL Barbiturates 200 ng/mL Benzodiazepines [...] purposes only. Specimen Urine Performing Organization Address [facility] Phone Number [facility] [address] [place] [address] PATHOLOGY AND [employer] MEDICINE * Urinalysis, automated with microscopy (02/02/2018 1:41 PM CDT) Color, UA Dark Yellow [facility] OF PATHOLOGY AND GENOMIC MEDICINE Appearance, UA Hazy [facility] OF PATHOLOGY AND GENOMIC MEDICINE Specific 1.019 1.001 - 1.035 [facility] gravity, OF PATHOLOGY AND GENOMIC MEDICINE pH, UA 5.0 5.0 - 8.5 [facility] OF PATHOLOGY AND GENOMIC MEDICINE Protein, UA 2+ (A) Negative [facility] OF PATHOLOGY AND GENOMIC MEDICINE Glucose, UA Negative Negative [facility] OF PATHOLOGY AND GENOMIC MEDICINE Ketones, UA Negative Negative [facility] OF PATHOLOGY AND GENOMIC MEDICINE Bilirubin, UA Negative Negative [facility] OF PATHOLOGY AND GENOMIC MEDICINE Blood, UA Small (A) Negative [facility] OF PATHOLOGY AND GENOMIC MEDICINE Nitrite, UA Negative Negative [facility] OF PATHOLOGY AND GENOMIC MEDICINE Urobilinogen, <2.0 <2.0 [facility] UA OF PATHOLOGY AND GENOMIC MEDICINE Leukocyte Moderate (A) Negative [facility] esterase, UA OF PATHOLOGY AND GENOMIC MEDICINE Epithelial 3 /HPF [facility] cells, UA OF PATHOLOGY AND GENOMIC MEDICINE WBC, UA 85 (H) 0 - 4 /HPF [facility] OF PATHOLOGY AND GENOMIC MEDICINE RBC, UA 4 0 - 5 /HPF [facility] OF PATHOLOGY AND GENOMIC MEDICINE Bacteria, UA Few None seen [facility] OF PATHOLOGY AND GENOMIC MEDICINE Hyaline casts, >20 (A) /LPF [facility] UA OF PATHOLOGY AND GENOMIC MEDICINE Yeast, UA None seen [facility] OF PATHOLOGY AND GENOMIC MEDICINE Yeast with None seen [facility] pseudohyphae, OF PATHOLOGY UA AND GENOMIC MEDICINE Specimen Urine Performing Organization Address City/State/Zipcode Phone Number [facility] OF [address] [place] [address] PATHOLOGY AND GENOMIC MEDICINE * XR Abdomen 1 Vw Portable (01/31/2018 8:11 PM CDT) Specimen Narrative Performed At EXAMINATION:XR ABDOMEN 1 VW PORTABLE [facility] CLINICAL HISTORY:vomiting COMPARISON:None. IMPRESSION: Moderate amount retained stool in colon There is a nonspecific bowel gas pattern. No free air is identified. Gallbladder has been removed [id number] Procedure Note Interface, Radiology Results Incoming - 01/31/2018 8:16 PM CDT EXAMINATION: XR ABDOMEN 1 VW PORTABLE CLINICAL HISTORY: vomiting COMPARISON: None. IMPRESSION: Moderate amount retained stool in colon There is a nonspecific bowel gas pattern. No free air is identified. Gallbladder has been removed [id number] Performing Organization Address City/State/Zipcode Phone Number [facility] [address] [place] [address] * EEG (routine) (01/31/2018 1:55 PM CDT) [...] Brain Wo Contrast (01/31/2018 11:59 AM CDT) Specimen Narrative Performed At EXAMINATION:CT STROKE BRAIN WO [...] at 01/31/2018 12:04 PM who verbalized understanding. [id number] Procedure Note Hm Interface, Radiology Results Incoming [...] Findings were discussed with and acknowledged by BENRIE Guzman at 01/31/2018 12:04 PM who verbalized understanding. [facility]-[id number] Performing Organization Address City/[facility]/[place] [address] * Arterial blood gas (01/31/2018 8:23 AM CDT) pH, arterial 7.40 7.35 - 7.45 [facility] OF PATHOLOGY AND GENOMIC MEDICINE pCO2, arterial 38 35 - 45 mmHg [facility] OF PATHOLOGY AND GENOMIC MEDICINE pO2, arterial 143 (H) 80 - 90 mmHg [facility] OF PATHOLOGY AND GENOMIC MEDICINE Bicarbonate, 22.6 21.0 - 28.0 mmol/L [facility] arterial OF PATHOLOGY AND GENOMIC MEDICINE Base excess, -1 -2 - 2 mEq/L [facility] arterial OF PATHOLOGY AND GENOMIC MEDICINE O2 saturation, 100 95 - 100 % [facility] arterial OF PATHOLOGY AND GENOMIC MEDICINE Specimen Blood Performing Organization Address City/[facility] [place] [place] [address] PATHOLOGY AND GENOMIC MEDICINE * Manual differential (01/31/2018 8:22 AM CDT) Manual PERFORMED [facility] differential OF PATHOLOGY AND GENOMIC MEDICINE Neutrophils 90.0 (H) 39.0 - 69.0 % [facility] OF PATHOLOGY AND GENOMIC MEDICINE Lymphocytes 7.0 (L) 25.0 - 45.0 % [facility] OF PATHOLOGY AND GENOMIC MEDICINE Monocytes 1.0 0.0 - 10.0 % [facility] OF PATHOLOGY AND GENOMIC MEDICINE Eosinophils 2.0 0.0 - 5.0 % [facility] OF PATHOLOGY AND GENOMIC MEDICINE Basophils 0.0 0.0 - 1.0 % [facility] OF PATHOLOGY AND GENOMIC MEDICINE Metamyelocytes 0 % [facility] OF PATHOLOGY AND GENOMIC MEDICINE Promyelocytes 0 % [facility] OF PATHOLOGY AND GENOMIC MEDICINE Platelet slide [place] slt decr [facility] review OF PATHOLOGY AND GENOMIC MEDICINE Anisocytosis Moderate [facility] OF PATHOLOGY AND GENOMIC MEDICINE Polychromasia Moderate [facility] OF PATHOLOGY AND GENOMIC MEDICINE Ovalocytes Moderate [facility] OF PATHOLOGY AND GENOMIC MEDICINE Enlarged Moderate (A) [facility] platelets OF PATHOLOGY AND GENOMIC MEDICINE Specimen Narrative Performed At [facility] and reab back to Ophelia Quevedo at 01/31/18 08:59 by [email or web address] [facility] OF PATHOLOGY AND GENOMIC MEDICINE Performing Organization Address City/[facility]/Zipcode Phone Number [facility] OF [address] [place] [address] PATHOLOGY AND GENOMIC MEDICINE * Lactic acid level (01/31/2018 8:22 AM CDT) Only the most recent of 2 results within the time period is included. Lactic acid 1.2 0.5 - 2.2 mmol/L [facility] OF PATHOLOGY AND GENOMIC MEDICINE Specimen Blood Performing Organization Address City/[facility]/Zipcode Phone Number [facility] OF [address] [place] [address] PATHOLOGY AND GENOMIC MEDICINE * EEG (routine) [...] 3D if needed (01/29/2018 10:05 AM CDT) Specimen Narrative Performed At [facility] Echocardiography Report [address] [facility] [address] [address] Pat.Name:SONAM BERMEO oRsario.ID:[id number] .Date: 01/29/2018Refer.MD:REGINALD FIGUEROA MD Exam Time: 9:20:00 AMStudy Type:Routine Echo Height:63inWeight:148lb BSA: 1.7 x5BCNJfe:1985,32Y Sex: FEMALEBP:140/97 HR:101 bpm Sonogrphr: Dale Issa RDCS Pat. Stat.:Inpatient Room:0 1003A Study Status:Final Echo Event ID:[id number] Order ID:[id number] Reason for Study:Stroke History / Clinical:Congestive Heart [...] RAPof 10 mmHg. MEASUREMENTS: 2D Parasternal Long [place] LVOT 1.9 cmLA Ds3.1 cm LVIDd4.9 cmIndex2.9 [...] 4.8 cm EF Biplane HR 103 bpm KTK787.4 ml CO 2.5 l/min SV49.1 ml KIT663.6 mlEF29.5 % DOPPLER LVOT Stroke Vol LVOT 1.9 cmLVOT CO3 l/min LVOT TVI10.4 cmLVOT CI1.8 l/m/m2 LVOT Tm254 msecHR 103 bpm LVOT SV 29.5 ml MA For Flow/Valve Assess MA TVI 141.6 cm Signed 01/30/2018 12:21 AM Santana Redding M.D. Procedure Note Interface, Radiology Results In - 01/30/2018 12:21 AM CDT Echocardiography Report [address] [place] [address] Pat.Name: SONAM BERMEO Pat.ID: [id number] .Date: 01/29/2018 Refer.MD: REGINALD FIGUEROA MD Exam Time: 9:20:00 AM Study Type:Routine Echo Height: 63in Weight: 148lb BSA: 1.7 m2 Age: 9 1985,32Y Sex: FEMALE BP: 140/97 HR: 101 bpm Sonogrphr: Dale Issa RDCS Pat. Stat.:Inpatient Room: [address] Study Status:Final Echo Event ID:[id number] Order ID: [id number] Reason for Study:Stroke History / Clinical:Congestive Heart [...] of 10 mmHg. MEASUREMENTS: 2D Parasternal [place] LVOT 1.9 cm LA Ds 3.1 cm [...] AM Santana Redding M.D. Performing Organization Address City/State/[facility] Phone Number [facility] [address] [place] [address] * CTA Neck W Wo Contrast (01/28/2018 7:20 PM CDT) Specimen Narrative Performed At EXAMINATION:CT ANGIOGRAM NECK W [...] no significant carotid or vertebral artery stenosis. [id number] Procedure Note Interface, Radiology Results Incoming - [...] no significant carotid or vertebral artery stenosis. [id number] Performing Organization Address City/State/Zipcode Phone Number [facility] [address] [place] [address] * Lipid panel (01/28/2018 6:47 PM CDT) Cholesterol 117 <200 mg/dL [facility] OF PATHOLOGY AND GENOMIC MEDICINE Triglycerides 92 <150 mg/dL [facility] OF PATHOLOGY AND GENOMIC MEDICINE HDL cholesterol 50 >40 mg/dL [facility] OF PATHOLOGY AND GENOMIC MEDICINE LDL cholesterol 64Comment: Result obtained by <100 mg/dL [facility] direct LDL measurement OF PATHOLOGY AND GENOMIC MEDICINE Lipid panel SeeBelow [facility] interpretation Comment: OF PATHOLOGY Total Cholesterol AND GENOMIC (mg/dL) MEDICINE <200 Desirable 200-239Borderline -high >=240High Triglycerides (mg/dL) [...] specimen Performing Organization Address City/State/Zipcode Phone Number [facility]PARTMENT OF [address] [place] [address] PATHOLOGY AND GENOMIC MEDICINE * CT Upper Extremity Wo Left (01/28/2018 6:27 PM CDT) Only the most recent of 2 results within the time period is included. Specimen Narrative Performed At EXAMINATION:CT UPPER EXTREMITY WO [...] humeral head suspicious for extension of osteomyelitis. [id number] Procedure Note Hm Interface, Radiology Results Incoming [...] humeral head suspicious for extension of osteomyelitis. [id number] Performing Organization Address City/State/Zipcode Phone Number [facility] [address] [place] [address] * CTA Head W Wo Contrast (01/28/2018 5:30 PM CDT) Specimen Narrative Performed At EXAM: CT ANGIOGRAM HEAD [...] aneurysmal dilatation or vascular malformation of the [place] of [place]. The major dural sinuses are opacified normally. There are no gross brain parenchymal abnormalities. There is no midline shift, hydrocephalus or extra-axial fluid collection. Soft tissue shows no evidence of laceration or hematoma. There is no air-fluid level in the sinuses. Osseous calvarium is intact. IMPRESSION: 1.No hemodynamically significant narrowing of the [place] of [place] vessels. [facility]-[id number] Procedure Note Interface, Radiology Results Incoming - [...] aneurysmal dilatation or vascular malformation of the [place] of [place]. The major dural sinuses are opacified normally. There are no gross brain parenchymal abnormalities. There is no midline shift, hydrocephalus or extra-axial fluid collection. Soft tissue shows no evidence of laceration or hematoma. There is no air-fluid level in the sinuses. Osseous calvarium is intact. IMPRESSION: 1. No hemodynamically significant narrowing of the [place] vessels. [facility]-[id number] Performing Organization Address City/State/Zipcode Phone Number [facility] [address] [place] [address] * CT Chest Wo Contrast (01/28/2018 4:55 PM CDT) Specimen Narrative Performed At [facility]AM[facility]AST CLINICAL HISTORY: sob [...] is enlarged. 5.Left proximal humeral fracture reidentified. [id number] Procedure Note [facility], Radiology Results [facility] - 01/28/2018 5:13 PM CDT EXAMINATION: CT [...] enlarged. 5. Left proximal humeral fracture reidentified. [id number] Performing Organization Address City/State/Zipcode Phone Number [facility] [address] [place] [address] * Keppra (Levetiracetam) level (01/28/2018 8:00 AM CDT) Pathologist [facility] Levetiracetam 16 12 - 46 ug/mL [facility] Comment: INTERPRETIVE INFORMATION: Keppra (Levetiracetam) Therapeutic Range:12-46 ug/mL Toxic: Not well Established Pharmacokinetics of levetiracetam are affected by renal function. Adverse effects may include somnolence, weakness, headache and vomiting. This levetiracetam (Keppra) immunoassay uses the [employer] reagents, which has known cross-reactivity with the drug brivaracetam (Briviact) and may report inaccurate results. Patients transitioning from levetiracetam to brivaracetam or those who are using both medications should not monitor drug concentrations with the [employer] assay. These patients should be monitored using a validated chromatographic methodology that distinguishes between drugs to determine drug concentrations. Performed by [facility], [address] [place] [id number] [email or web address], Boby Brito MD - Lab. Director Specimen Serum Performing Organization Address [facility] Phone Number [employer] [address] [place] [address] * Transfuse RBC (01/27/2018 9:20 PM CDT) Only the most recent of 5 results within the time period is included. * Hepatitis B surface antigen (01/27/2018 6:20 PM CDT) Only the most recent of 2 results within the time period is included. Pathologist [facility] Hepatitis B Non-reactive Non-reactive [facility] surface Ag OF PATHOLOGY AND GENOMIC MEDICINE Specimen Blood Performing Organization Address City/[facility]/Zipcode Phone Number [facility] OF [address] [place] [address] PATHOLOGY AND GENOMIC MEDICINE * Pv duplex venous upper extremity (01/27/2018 2:47 PM CDT) Only the most recent of 2 results within the time period is included. Specimen Narrative Performed At [facility] Upper Extremity Venous Report [address] [facility] [address], [place] [address] Pat.Name:SONAM BERMEO Pat.ID:[id number] .Date: 01/27/2018Refer.MD:REGINALD FIGUEROA MD Exam Time: 2:29:00 PMStudy Type:UE Venous DOBAge:1985,32Y Sex: FEMALE Sonogrphr: KATHY Robertson RCS Pat. Stat.:Inpatient Room:[place] [address] TapeVol: PATRICIA CPT - 4: 23556 Echo Event ID:[id number] Order ID:[id number] Reason for Study:Left arm swelling and pain, [...] [facility] Ultras[facility] Laboratory Upper Extremity Venous Report [address] [place] [address] Pat.Name: SONAM BERMEO Pat.ID: [id number] .Date: 01/27/2018 Refer.MD: REGINALD FIGUEROA MD Exam Time: 2:29:00 PM Study Type:UE Venous Age: 9 1985,32Y Sex: FEMALE Sonogrphr: KATHY Robertson, NOEMY Pat. Stat.:Inpatient Room: [place] [address] Tape Vol: PATRICIA CPT - 4: 39282 Echo Event ID:[id number] Order ID: [id number] Reason for Study:Left arm swelling and pain, [...] RPVI Performing Organization Address City/State/Zipcode Phone Number [facility] [address] [place] [address] * Pv carotid duplex (01/27/2018 2:28 PM CDT) Specimen Narrative Performed At [facility] Vascular Ultrasound Laboratory Carotid Artery Duplex Report [address] [place] [address] For water quality tester purposes, the categorization of the degree of the stenosis of this exam is based on criteria described in the IAC carotid stenosis grading white paper( www.intersocietal.org/Vascular) and Neli Kilgore., Yoan Cruz., et al. Carotid artery stenosis: murillo-scale and Doppler US diagnosis--Society of Radiologists in Ultrasound Consensus Conference. Radiology. 2003 Nov; 229(2):340-6. Pat.Name:SONAM BERMEO Rosario.ID:[id number] .Date: 01/27/2018Refer.MD:REGINALD FIGUEROA MD Exam Time: 2:12:00 PMStudy Type:Carotid DOBAge:1985,32Y Sex: FEMALE Sonogrphr: Nicholas Reynoso, KATHY, NOEMY Pat. Stat.:Inpatient Room:[place] [id number] A TapeVol: PATRICIA, CPT - 4: 31705 Echo Event ID:[id number] Order ID:[id number] Reason for Study:Concern for clot, patient had [...] Ultrasound Laboratory Carotid Artery Duplex Report [address] [place] [address] For water quality tester purposes, the categorization of the degree of the stenosis of this exam is based on criteria described in the IAC carotid stenosis grading white paper( www.intersocietal.org/Vascular) and Chan Kilgore, Sherif Cruz, et al. Carotid artery stenosis: murillo-scale and Doppler US diagnosis--Society of Radiologists in Ultrasound Consensus Conference. Radiology. 2003 Feb; 229(2):340-6. Pat.Name: SNOAM BERMEO [facility].ID: [id number] .Date: 01/27/2018 Refer.MD: REGINALD FIGUEROA MD Exam Time: 2:12:00 PM Study Type:Carotid Age: 9 1985,32Y Sex: FEMALE Sonogrphr: KATHY Robertson RCS Pat. Stat.:Inpatient Room: [address] Vol: PATRICIA, CPT - 4: 59170 Echo Event ID:[id number] Order ID: [id number] Reason for Study:Concern for clot, patient had [...] Caleb Pulliam MD, RPVI Performing Organization Address [facility]/Zipcode Phone Number [facility] [address] [place] [address] * Lactic acid level, SEPSIS - Now and repeat 2x every 3 hours (01/27/2018 6:34 AM CDT) Only the most recent of 2 results within the time period is included. Lactic acid 1.8 0.5 - 2.2 mmol/L [facility] OF PATHOLOGY AND GENOMIC MEDICINE Specimen Blood Performing Organization Address City/[facility]/Zipcode Phone Number [facility] DEPARTMENT OF [address] [place] [address] PATHOLOGY AND GENOMIC MEDICINE * Prepare RBC, 1 Units (01/27/2018 3:44 AM CDT) Only the most recent of 2 results within the time period is included. Product name Red Blood Cells -1, Leukored [facility] OF PATHOLOGY AND GENOMIC MEDICINE Unit number [id number] [facility] OF PATHOLOGY AND GENOMIC MEDICINE Product code [id number] [facility] OF PATHOLOGY AND GENOMIC MEDICINE Dispense status Transfused [facility] OF PATHOLOGY AND GENOMIC MEDICINE Blood [id number] [facility] expiration date OF PATHOLOGY AND GENOMIC MEDICINE Blood type code 5100 [facility] OF PATHOLOGY AND GENOMIC MEDICINE Blood type O POSITIVE [facility] OF PATHOLOGY AND GENOMIC MEDICINE Specimen Performing Organization Address City/[facility]/Zipcode Phone Number [facility] DEPARTMENT OF [address] [place] [address] PATHOLOGY AND GENOMIC MEDICINE * Type and screen (01/27/2018 3:44 AM CDT) Only the most recent of 2 results within the time period is included. ABO grouping O [facility] OF PATHOLOGY AND GENOMIC MEDICINE Rh type POS [facility] OF PATHOLOGY AND GENOMIC MEDICINE Antibody screen NEG [facility] (gel) OF PATHOLOGY AND GENOMIC MEDICINE Specimen Blood Performing Organization Address City/[facility]/Zipcode Phone Number [facility] OF [address] [place] [address] PATHOLOGY AND GENOMIC MEDICINE * XR Abdomen Acute Inc Chest (01/27/2018 1:58 AM CDT) Specimen Narrative Performed At EXAMINATION: XR ABDOMEN ACUTE [...] technique. Diffuse osteopenia. No acute osseous abnormalities. [id number] Procedure Note Hm Interface, Radiology Results Incoming [...] technique. Diffuse osteopenia. No acute osseous abnormalities. [id number] Performing Organization Address City/State/Zipcode Phone Number [facility] [address] [place] [address] * Blood culture, aerobic & anaerobic (01/26/2018 12:50 AM CDT) Blood culture No growth after 5 days of [facility] isolate incubation. OF PATHOLOGY Comment: AND GENOMIC Specimen Information MEDICINE Specimen Source: Blood Specimen Site: Other Specimen Blood - Other- Detailed Description Required Performing Organization Address City/State/Zipcode Phone Number [facility] OF [address] [place] [address] PATHOLOGY AND GENOMIC MEDICINE * IR Tunneled Dialysis Catheter Replacement/Exchange (01/02/2018 9:37 AM CDT) Specimen Narrative Performed At Procedure: Change of tunneled dialysis catheter [facility] Clinical History: End-stage renal disease. The patient's indwelling catheter is not functioning. Sedation: Versed and fentanyl were utilized for monitored conscious sedation during the procedure. The patient was transferred to the recovery room at the end of the procedure for further monitoring. Ooxj-uj-xhjo time 15 minutes Anesthesia: Local Radiation dose: [...] above. Blood Loss: Less than 1 mL [id number] Procedure Note Interface, Radiology Results Incoming - 01/02/2018 9:51 AM CDT Procedure: Change of tunneled dialysis catheter Clinical History: End-stage renal disease. The patient's indwelling catheter is not functioning. Sedation: Versed and fentanyl were utilized for monitored conscious sedation during the procedure. The patient was transferred to the recovery room at the end of the procedure for further monitoring. Vmex-mf-xtda time 15 minutes Anesthesia: Local Radiation dose: [...] above. Blood Loss: Less than 1 mL [id number] Performing Organization Address City/[facility] Phone Number [facility] [address] [place] [address] * Vancomycin level, random (01/01/2018 4:38 AM CDT) Only the most recent of 2 results within the time period is included. Vancomycin, SEE COMMENT ug/mL [facility] random Comment: OF PATHOLOGY Footnote--------- AND GENOMIC Specimen integrity MEDICINE questionable.Recollect requested for VANCT.APPLE ISO/M3SW notified by KXG at01/01/201806:39 . Specimen Serum Performing Organization Address City/[facility] Phone Number [facility] [address] [phone] PATHOLOGY AND GENOMIC MEDICINE * Echocardiogram complete w contrast and 3D if needed (12/30/2017 9:36 AM CDT) Specimen Narrative Performed At [facility] Echocardiography Report [address] [address], [place] [address] Pat.Name:SONAM BERMEO Pat.ID:[id number] .Date: 12/30/2017 Refer.MD:JAYDEN JANSEN MD Exam Time: 9:20:00 AMStudy Type:Routine Echo Height:63inBSA: 1.73 m2 DOBAge:1985,32Y Sex: FEMALE BP:111/79HR: 103 bpm Sonogrphr: Aby Castro, RDCS, RVTPat. Stat.:[address] Status:Final Echo Event ID:[id number] Order ID:[id number] Reason for Study:CHF History / Clinical:Congestive Heart [...] RAPof 10 mmHg. MEASUREMENTS: 2D Parasternal Long [place] LVOT 1.8 cmIVSd 1 cm LA Ds4.4 cmLVPWd0.8 cm Ao Rtd 2.5 cmIndex1.5 cm/m LV Zedw673 g(87-129) LVIDd5.6 cmIndex3.2 cm/m LVM Skqlw491.4 g/m2 LVIDs5 cmRWT0.3 LV%fs 10.7 % LV EF Biplane GWEIH212.6 ml (59-136) Edjpy704.8 ml/m LV SV 57.6 ml CPKKC185 leNknkv36.5 ml/m LV EF 29 %(55-75) LA Sng [...] - 12/30/2017 2:42 PM CDT Echocardiography Report [id number] [address] [facility].Name: SONAM BERMEO Rosario.ID: [id number] .Date: 12/30/2017 Refer.MD: JAYDEN JANSEN MD Exam Time: 9:20:00 AM Study Type:Routine Echo Height: 63in BSA: 1.73 m2 Age: 9 1985,32Y Sex: FEMALE BP: 111/79 HR: 103 bpm Sonogrphr: Aby Castro RDCS, RVT Pat. Stat.:Inpatient Room: [address] Study Status:Final Echo Event ID:[id number] Order ID: [id number] Reason for Study:CHF History / Clinical:Congestive Heart [...] of 10 mmHg. MEASUREMENTS: 2D Parasternal Long [place] LVOT 1.8 cm IVSd 1 cm LA [...] M.D. Performing Organization Address City/State/Zipcode Phone Number [facility] [address] [place] [address] * Pv duplex venous lower extremity (12/29/2017 2:10 PM CDT) Specimen Narrative Performed At [facility] Vascular Ultrasound Laboratory Lower Extremity Venous Report [address] [id number] Pat.Name:SONAM BERMEO Lili Pat.ID:[id number] .Date: 12/29/2017 Refer.MD:JAYDEN JANSEN MD Exam Time: 1:53:00 PMStudy Type:LE Venous Height:63inWeight:153lb BSA: 1.73 m2 DOBAge:1985,32Y Sex: FEMALESonogrphr: Hugo Bliss RN, S Pat. Stat.:Inpatient Room:[facility] TapeVol: PM, CPT - 4: 39116 Echo Event ID:[id number] Order ID:[id number] Reason for Study:Bilateral leg edema. Procedures:Colorflow, Grayscale/2D, [...] [facility] Lower Extremity Venous Report [address] [address] Pat.Name: SONAM BERMEO Pat.ID: [id number] .Date: 12/29/2017 Refer.MD: JAYDEN JANSEN MD Exam Time: 1:53:00 PM Study Type:LE Venous Height: 63in Weight: 153lb BSA: 1.73 m2 Age: 9 1985,32Y Sex: FEMALE Sonogrphr: Hugo Bliss RN, RVS Pat. Stat.:Inpatient Room: [facility] Tape Vol: PM, CPT - 4: 65621 Echo Event ID:[id number] Order ID: [id number] Reason for Study:Bilateral leg edema. Procedures:Colorflow, Grayscale/2D, [...] Organization Address City/State/Zipcode Phone Number [facility] [address] [place] [address] * XR Shoulder 2+ Vw Left (12/28/2017 5:30 PM CDT) Specimen Narrative Performed At EXAMINATION:XR SHOULDER 2VW LEFT [facility] CLINICAL HISTORY:shoulder surgery COMPARISON:None. IMPRESSION: There are recent postoperative changes involving left shoulder, with skin andre present. Region of the greater tuberosity appears to have been resected. A few flecks of bone are seen in that area. Glenohumeral joint and AC joint are intact. There is a portable Central venous catheter and transthoracic pacemaker present. [id number] Procedure Note Interface, Radiology Results Incoming - [...] Central venous catheter and transthoracic pacemaker present. [id number] Performing Organization Address [facility]/Zipcode Phone Number [facility] [address] [place] [address] * US Renal (12/28/2017 1:35 PM CDT) Specimen Narrative Performed At EXAMINATION:US RENAL [facility] CLINICAL HISTORY:hydroureter COMPARISON:06/04/2015 IMPRESSION: 1.There is no hydronephrosis. 2.Renal cortical echogenicity is increased suggesting medical renal disease. 3.Right kidney measures 10.2 x 4 x 3.8 cm. 4.Left kidney measures 11.3 x 4.5 x 4.8 cm. 5.Bladder is unremarkable. [id number] Procedure Note Interface, Radiology Results Incoming - 12/28/2017 2:43 PM CDT EXAMINATION: US RENAL CLINICAL HISTORY: hydroureter COMPARISON: 06/04/2015 IMPRESSION: 1. There is no hydronephrosis. 2. Renal cortical echogenicity is increased suggesting medical renal disease. 3. Right kidney measures 10.2 x 4 x 3.8 cm. 4. Left kidney measures 11.3 x 4.5 x 4.8 cm. 5. Bladder is unremarkable. [id number] Performing Organization Address City/[facility]/Zipcode Phone Number [facility] [address] [place] [address] * Hemoglobin A1c (12/28/2017 5:00 AM CDT) Hemoglobin A1C 6.8 (H) 4.0 - 5.6 % [facility] Comment: OF PATHOLOGY HbA1c cutoffs for diagnosing AND GENOMIC diabetes: MEDICINE 4.0% - 5.6%=normal 5.7% - 6.4%=increased risk for diabetes (prediabetes) >=6.5%=diabetes Goals for glycemic control (ADA 2016) < 7.0%Target for non adults with diabetes. More or less stringent targets may be appropriate for individual patients. <7.5% Target for Children and adolescents with type 1 diabetes. Specimen Blood Performing Organization Address City/State/Zipcode Phone Number [facility] OF [address] [place] [address] PATHOLOGY AND GENOMIC MEDICINE * CT Abdomen Pelvis W Contrast (12/28/2017 3:58 AM CDT) Specimen Narrative Performed At EXAMINATION:CT ABDOMEN PELVIS W [...] shift/edema. Correlation to exclude colitis is advised. [id number] Procedure Note Hm Interface, Radiology Results Incoming [...] shift/edema. Correlation to exclude colitis is advised. [id number] Performing Organization Address City/State/Zipcode Phone Number [facility] [address] [place] [address] * Urinalysis screen and microscopy, with reflex to culture (12/28/2017 3:30 AM CDT) Specimen site Clean catch [facility] OF PATHOLOGY AND GENOMIC MEDICINE Color, UA Yellow [facility] OF PATHOLOGY AND GENOMIC MEDICINE Appearance, UA Hazy [facility] OF PATHOLOGY AND GENOMIC MEDICINE Specific 1.017 1.001 - 1.035 [facility] gravity, UA OF PATHOLOGY AND GENOMIC MEDICINE pH, UA 6.0 5.0 - 8.5 [facility] OF PATHOLOGY AND GENOMIC MEDICINE Protein, UA 3+ (A) Negative [facility] OF PATHOLOGY AND GENOMIC MEDICINE Glucose, UA Negative Negative [facility] OF PATHOLOGY AND GENOMIC MEDICINE Ketones, UA Negative Negative [facility] OF PATHOLOGY AND GENOMIC MEDICINE Bilirubin, UA Positive@UBIL (A) Negative [facility] OF PATHOLOGY AND GENOMIC MEDICINE Blood, UA Small (A) Negative [facility] OF PATHOLOGY AND GENOMIC MEDICINE Nitrite, UA Negative Negative [facility] OF PATHOLOGY AND GENOMIC MEDICINE Urobilinogen, <2.0 <2.0 [facility] UA OF PATHOLOGY AND GENOMIC MEDICINE Leukocyte Moderate (A) Negative [facility] esterase, UA OF PATHOLOGY AND GENOMIC MEDICINE Epithelial 1 /HPF [facility] cells, UA OF PATHOLOGY AND GENOMIC MEDICINE WBC, UA 129 (H) 0 - 4 /HPF [facility] OF PATHOLOGY AND GENOMIC MEDICINE RBC, UA 15 (H) 0 - 5 /HPF [facility] OF PATHOLOGY AND GENOMIC MEDICINE Bacteria, UA None seen None seen [facility] OF PATHOLOGY AND GENOMIC MEDICINE Yeast, UA Many (A) [facility] OF PATHOLOGY AND GENOMIC MEDICINE Yeast with None seen [facility] pseudohyphae, OF PATHOLOGY UA AND GENOMIC MEDICINE Hyaline casts, 18 /LPF [facility] UA OF PATHOLOGY AND GENOMIC MEDICINE Specimen Urine Performing Organization Address City/[facility]/Zipcode Phone Number [facility] OF [address] [place] [address] PATHOLOGY AND GENOMIC MEDICINE * Gram stain (12/28/2017 3:30 AM CDT) Gram stain Rare WBC's [facility] result Rare Budding yeast OF PATHOLOGY Comment: AND GENOMIC Specimen Information MEDICINE Specimen Source: Urine Specimen Site: Clean catch Specimen Urine Performing Organization Address City/[facility]/Zipcode Phone Number [facility] OF [address] [place] [address] PATHOLOGY AND GENOMIC MEDICINE * Urine culture (12/28/2017 3:30 AM CDT) Urine culture Marleen glabrata [facility] isolate >10-5 cfu/ml OF PATHOLOGY The performance AND GENOMIC characteristics of this assay MEDICINE on this isolate were validated by the Microbiology Laboratory at [facility].This source has not been approved by the U.S. Food and Drug Administration.The results are not intended to be used as the sole means for clinical diagnosis or patient management.The Microbiology Laboratory is authorized under the clinical Laboratory Improvement Amendments of 1988 (CLIA-88) to perform high complexity testing. (A) Comment: Specimen Information Specimen Source: Urine Specimen Site: Clean catch Urine culture Gram positive betsy [facility] isolate 10-2 cfu/ml OF PATHOLOGY (A) AND GENOMIC MEDICINE Specimen Urine Antibiotic Method Susceptibility Organism Micafungin BP 0.016 mcg/mL: Susceptible Marleen glabrata Amphotericin B BP 1 mcg/mL: Susceptible Marleen glabrata Posiconazole BP 1 mcg/mL Marleen glabrata Itraconazole BP 1.0 mcg/mL: Resistant Marleen glabrata Fluconazole BP 32 mcg/mL: Susceptible Marleen glabrata Performing Organization Address City/State/Zipcode Phone Number [facility] OF [address] [place] [phone] PATHOLOGY AND GENOMIC MEDICINE after 10/16/2017 Insurance Type Payer Benefit Subscriber ID Effective Phone Address Plan / Dates Group O GRISEL RECINOS xxxxxxxxx 2016-P [facility] [employer] [facility] Advance Directives Patient has advance care planning documents, and code status on file. For more i nformation, please contact: Pavel Roberts [address] [place] [phone] Date Inactivated Comments Code Status Date Activated 02/18/2018 8:23 PM Full Code 02/08/2018 4:32 PM Code Status decision reached by: Patient
--- OUTSIDE RECORDS SUMMARY | 2018-10-17 03:27 | XMS REPORT | Clinical Summary ---
Author Author KALYAN [facility] Address Unknown Phone Unavailable Care Team Providers Care Crusher Screen Repairer Name Role Phone LonnyGer Jacqueline PCP Allergies [...] Active B complex Take 1 tablet 0 09-kvwer-N-biot-zinc by mouth (DIALYVITE) [id number] daily. ea-vx-fcy-mg Tab 01/14/2019 Active phenytoin (DILANTIN) 100 Take [...] Surgeon PROCEDURE DONE OUTSIDE OR [facility] Ahmed, Shamoon, MD Siddiqui, Angela Oliva MD Edema, unspecified type (Primary Dx); ESRD on hemodialysis (HCC); Postoperative wound infection, subsequent encounter; Chest pain, unspecified type; Chronic pain due to trauma; Surgical site infection 01/03/2018 Hospital Cardiology - Encounter 01/23/2018 01/03/2018 Orders Only General Internal Medicine after 10/16/2017 Social History Date Tobacco Use Types Packs/Day [...] Body Mass Index 26.59 Plan of Treatment Not on file Procedures Comments Procedure Name Priority Date/Time Associated [...] ms QTC Calculatio n(Bazett) 452 ms P [place] 61 degrees R [place] 27 degrees T [place] 106 degrees Sinus tachycardi a Nonspecifi c [...] 01/10/2018 DIFFERENTIAL 4:23 AM CDT LACTIC ACID, VENOUS Routine 01/10/2018 4:23 AM CDT CBC W/PLT COUNT & [...] ms QTC Calculatio n(Bazett) 437 ms P [place] 53 degrees R [place] 0 degrees T [place] 174 degrees Sinus tachycardi a with Fusion [...] 12-LEAD STAT 01/03/2018 12:48 AM CDT after 10/16/2017 Results * ARRYTHMIA IMPLANT REPORT - SCAN (01/24/2018 1:40 PM CDT) Narrative Performed At * RHYTHM STRIP - SCAN (01/24/2018 1:40 PM CDT) Narrative Performed At * POC-Glucose meter (01/23/2018 9:24 AM CDT) Only the most recent of 67 results within the time period is included. POC-Glucose Meter 135 (H)Comment: TESTED AT 70 - 110 mg/dL [facility] [address] [facility] [address] Specimen Blood Performing Organization Address City/State/Zipcode Phone Number [place] [phone] [place] [address] [facility] * HEMODIALYSIS INPATIENT (01/22/2018 5:54 PM CDT) [...] (01/21/2018 6:41 AM CDT) Result No growth [facility] Gram Stain Result 4+ WBCs [facility] Gram Stain Result No organisms seen [facility] Specimen Wound Performing Organization Address City/State/Zipcode Phone Number [facility] [address] [place] [address] [facility] * IR Tunneled Catheter Insertion (01/20/2018 1:02 PM CDT) Only the most recent of 2 results within the time period is included. Specimen Narrative Performed At FINAL REPORT [facility] Tunneled dialysis catheter exchange, partial today History: Renal failure. Nonfunctioning hemodialysis catheter. Unable to aspirate from the right portal Modality: Sonography and fluoroscopy. Sedation: Versed 1.0 mg and fentanyl 50 mcg was given intravenously for conscious sedation.Vital signs were monitored throughout the procedure by a nurse, and remained stable. Physician intra-service time was 20 minutes. Coater Helper:Kayla. Acid Tank Liner: Nadia Inman MD. Approach: Right chest tunneled [...] new 19 cm cuff to tip 15.5 Mauritian Duraflow two catheter was then advanced over [...] MD Report Verified Date/Time:01/20/2018 17:29:46 Reading Location: [place] [address] Angio Body Reading Room Procedure Note Interface, [...] stable. Physician intra-service time was 20 minutes. Coater Helper: Kayla. Acid Tank Liner: Nadia Inman MD. Approach: Right chest tunneled [...] new 19 cm cuff to tip 15.5 Mauritian Duraflow two catheter was then advanced over [...] Report Verified Date/Time: 01/20/2018 17:29:46 Reading Location: [place] [address] Angio Body Reading Room Performing Organization Address City/[facility]/Zipcode Phone Number [facility] * PT/aPTT (01/20/2018 5:26 AM CDT) Only the most recent of 5 results within the time period is included. Protime 17.8 (H) 11.7 - 14.7 seconds [facility] INR 1.5 <=5.9 [facility] PTT 36.8 (H) 22.5 - 36.0 seconds [facility] Specimen Blood Narrative Performed At RECOMMENDED COUMADIN/WARFARIN INR THERAPY RANGES [facility] STANDARD DOSE: 2.0 - 3.0 Includes: PROPHYLAXIS for venous thrombosis, [facility] systemic embolization; TREATMENT for venous thrombosis and/or pulmonary embolus. HIGH RISK: Target INR is 2.5-3.5 for patients with mechanical heart valves. Performing Organization Address City/[facility]/Zipcode Phone Number [facility] [address] [place] [address] [phone] [place] [address] * CBC with platelet count + automated diff (01/20/2018 5:26 AM CDT) Only the most recent of 16 results within the time period is included. WBC 4.6 3.5 - 10.5 K/L [facility] RBC 3.04 (L) 3.93 - 5.22 M/L [facility] Hemoglobin 8.4 (L) 11.2 - 15.7 GM/DL [facility] Hematocrit 28.9 (L) 34.1 - 44.9 % [facility] MCV 95.1 (H) 79.4 - 94.8 fL [facility] MCH 27.6 25.6 - 32.2 pg [facility] MCHC 29.1 (L) 32.2 - 35.5 GM/DL [facility] RDW 17.8 (H) 11.7 - 14.4 % [facility] Platelets 169 150 - 450 K/CU MM [facility] MPV 10.8 9.4 - 12.3 fL [facility] nRBC 0 0 - 0 /100 WBC [facility] % Neutros 77 % [facility] % Lymphs 16 % [facility] % Monos 3 % [facility] % Eos 2 % [facility] % Baso 1 % [facility] # Neutros 3.51 1.56 - 6.13 K/L [facility] # Lymphs 0.75 (L) 1.18 - 3.74 K/L [facility] # Monos 0.13 (L) 0.24 - 0.36 K/L [facility] # Eos 0.11 0.04 - 0.36 K/L [facility] # Baso 0.03 0.01 - 0.08 K/L [facility] Immature 1 0 - 1 % [facility] Granulocytes-Relative [facility] Specimen Blood Performing Organization Address City/[facility]/Zipcode Phone Number [address] * Vancomycin level, random (01/20/2018 5:26 AM CDT) Only the most recent of 4 results within the time period is included. Vancomycin Rm 19.5 ug/mL [facility] Specimen Blood Narrative Performed At Reference Range: No Normals [facility] Performing Organization Address [facility] Phone Number [address] * TRANSFUSION SERVICE REPORT - SCAN (01/18/2018 6:00 PM CDT) Only the most recent of 2 results within the time period is included. Narrative Performed At * Phosphorus (01/18/2018 9:35 AM CDT) Phosphorus 2.4 2.3 - 4.7 mg/dL [facility] Specimen Blood Performing Organization Address City/[facility] Phone Number [address] * Magnesium (01/18/2018 9:35 AM CDT) Only the most recent of 2 results within the time period is included. Magnesium 1.7 1.6 - 2.6 mg/dL [facility] Specimen Blood Performing Organization Address City/[facility]/Zipcode Phone Number [address] * Basic metabolic panel (01/18/2018 9:35 AM CDT) Only the most recent of 16 results within the time period is included. Sodium 135 (L) 136 - 145 meq/L [facility] Potassium 3.2 (L) 3.5 - 5.1 meq/L [facility] Chloride 99 98 - 107 meq/L [facility] CO2 29 22 - 29 meq/L [facility] BUN 13 7 - 21 mg/dL [facility] Creatinine 2.07 (H) 0.57 - 1.25 mg/dL [facility] Glucose 135 (H) 70 - 105 mg/dL [facility] Calcium 7.8 (L) 8.4 - 10.2 mg/dL [facility] EGFR 34Comment: ESTIMATED GFR IS mL/min/1.73 sq m [facility] NOT ACCURATE CREATININE [facility] CLEARANCE IN PREDICTING GLOMERULAR FILTRATION RATE. ESTIMATED GFR IS NOT APPLICABLE FOR DIALYSIS PATIENTS. Specimen Blood Performing Organization Address City/State/Zipcode Phone Number [facility] [address] [place] [address] [facility] * Prepare Leuko-Red & Irrad RBC (01/17/2018 11:54 PM CDT) CROSSMATCH COMPATIBLE SAFETRACE TX Unit ABO O Pos SAFETRACE TX UNIT NUMBER [id number] [place] [place] Status TRANSFUSED [facility] [place] Blood Bank Product RED BLOOD CELLS [facility] [place] PRODUCT CODE [id number] [place] Specimen Other Performing Organization Address City/State/Zipcode Phone Number [place] * CT upper extremity with contrast right (01/17/2018 9:24 PM CDT) Specimen Narrative Performed At FINAL REPORT [facility] CT, EXTREMITY, UPPER, WITH CONTRAST, RIGHT, CT, [...] MD Report Verified Date/Time:01/17/2018 22:06:08 Reading Location: [facility] C0[facility] Transitional Reading Room Procedure Note Interface, External [...] upper extremity. Interstitial pulmonary edema. Signed: Kirt Machdao MD Report Verified Date/Time: 01/17/2018 22:06:08 Reading Location: [facility] B1 C013T Transitional Reading Room Performing Organization Address City/State/Zipcode Phone Number [facility] * CT upper extremity with contrast left (01/17/2018 9:24 PM CDT) Specimen Narrative Performed At FINAL REPORT [facility] CT, EXTREMITY, UPPER, WITH CONTRAST, RIGHT, CT, [...] MD Report Verified Date/Time:01/17/2018 22:06:08 Reading Location: [address] Transitional Reading Room Procedure Note Interface, [...] Report Verified Date/Time: 01/17/2018 22:06:08 Reading Location: [address] Transitional Reading Room Performing Organization Address City/State/Zipcode Phone Number [facility] * CT chest without IV contrast (01/16/2018 11:42 PM CDT) Specimen Narrative Performed At FINAL REPORT [facility] CT, CHEST, WITHOUT CONTRAST INDICATION: Chest pain [...] MD Report Verified Date/Time:01/16/2018 23:55:03 Reading Location: [address] Reading Room Procedure Note Interface, External [...] Signed: JR Dwyer Robert MD Report Verified Date/Time: 01/16/2018 23:55:03 Reading Location: [address] Reading Room Performing Organization Address City/[facility] Phone Number [facility] * Transfuse Leuko-Red & Irrad RBC (01/16/2018 3:05 PM CDT) Only the most recent of 2 results within the time period is included. * Type and screen, automated (01/16/2018 12:17 PM CDT) ABO/RH AUTOMATED (BEAKER) O POSITIVE [facility] Ab Scrn NEGATIVE [facility] Specimen Blood Performing Organization Address [facility] Phone Number [facility] [address] [place] [address] MEDICAL CENTER * CBC (Hemogram only) (01/16/2018 4:01 AM CDT) WBC 3.7 3.5 - 10.5 K/L [facility] RBC 2.49 (L) 3.93 - 5.22 M/L [facility] Hemoglobin 6.9 (L) 11.2 - 15.7 GM/DL [facility] Hematocrit 24.0 (L) 34.1 - 44.9 % [facility] MCV 96.4 (H) 79.4 - 94.8 fL [facility] MCH 27.7 25.6 - 32.2 pg [facility] MCHC 28.8 (L) 32.2 - 35.5 GM/DL [facility] RDW 18.7 (H) 11.7 - 14.4 % [facility] Platelets 152 150 - 450 K/CU MM [facility] MPV 10.8 9.4 - 12.3 fL [facility] nRBC 0 0 - 0 /100 WBC [facility] Specimen Blood Performing Organization Address City/State/Zipcode Phone Number [facility] [address] [place] [address] MEDICAL CENTER * XR chest 2 views (01/15/2018 3:02 PM CDT) Only the most recent of 2 results within the time period is included. Specimen Narrative Performed At FINAL REPORT [facility] [...] MD Report Verified Date/Time:01/14/2018 22:17:24 Reading Location: [facility] Reading Room Procedure Note Interface, External Ris [...] Report Verified Date/Time: 01/14/2018 22:17:24 Reading Location: [facility] Reading Room Performing Organization Address City/State/Zipcode Phone Number [facility] * Clostridium difficile [facility] Toxin (01/14/2018 2:05 AM CDT) C. Difficle Toxin Negative Negative [facility] C. Difficile [facility] Antigen Positive (A)Comment: C. Negative [facility] difficile present but toxin [facility] not detected. Indicates colonization with non-toxigenic strain or level of toxin below detectable levels. No need for enteric isolation. Treatment is rarely needed (only when strong clinical suspicion for Clostridium difficile infection) Specimen Stool Narrative Performed At Testing performed by [employer] Rapid Cassette Assay.For [facility], published [facility] sensitivity of the assay is 98.7% compared to cytotoxicity testing.For Toxin [facility] AB, published sensitivity is 87.8% and specificity 99.4% compared to cytotoxicity testing. Verification of kit performance was done by the [facility] Microbiology Lab prior to clinical use. Performing Organization Address City/[facility]/Zipcode Phone Number [facility] [address] [place] [address] [facility] * HEMODIALYSIS INPATIENT (01/13/2018 12:44 PM CDT) [...] CDT) TSH 3.42 0.35 - 4.94 uIU/mL [facility] Specimen Blood Performing Organization Address City/[facility]/Zipcode Phone Number [facility] [address] [place] [address] [facility] * CT brain without IV contrast (01/11/2018 12:53 PM CDT) Specimen Narrative Performed At FINAL REPORT sofatutor CT head without contrast 01/11/2018 1:34 PM [...] MD Report Verified Date/Time:01/11/2018 13:35:22 Reading Location: [facility] B1 C013X Ortho Consult Reading Room Procedure Note Interface, [...] Report Verified Date/Time: 01/11/2018 13:35:22 Reading Location: [facility] B1 C013X Ortho Consult Reading Room Performing Organization Address City/State/Zipcode Phone Number RIS * Hemoglobin and hematocrit (01/10/2018 6:15 PM CDT) Hemoglobin 8.4 (L) 11.2 - 15.7 GM/DL [facility] Hematocrit 28.5 (L) 34.1 - 44.9 % [facility] Specimen Blood Performing Organization Address City/[facility] Phone Number [facility] [address] [place] [address] [facility] * Vancomycin level, trough (01/10/2018 3:09 PM CDT) Vancomycin Tr 12.4 10.0 - 20.0 ug/mL [facility] Specimen Blood Narrative Performed At Send after dialysis please [facility] Performing Organization Address [facility] Phone Number [facility] [address] [place] [address] [facility] * ECG 12 lead (01/10/2018 7:31 AM CDT) Only the most recent of 2 results within the time period is included. Specimen Narrative Performed At Ventricular Rate 123 BPM GE MUSE Atrial Rate 123 BPM P-R Interval 164 ms QRS Duration 88 ms Q-T Interval 316 ms QTC Calculation(Bazett) 452 ms P [place] 61 degrees R [place] 27 degrees T [place] 106 degrees Sinus tachycardia Nonspecific T wave abnormality Prolonged QT Abnormal ECG When compared with ECG of 03-JAN-2018 00:48, Fusion complexes are no longer Present Confirmed by Charlene KELLOGG BASANT ([id number]) on 01/12/2018 8:44:48 PM Procedure Note Interface, External Ris In - 01/12/2018 8:44 PM CDT Ventricular Rate 123 BPM Atrial Rate 123 BPM P-R Interval 164 ms QRS Duration 88 ms Q-T Interval 316 ms QTC Calculation(Bazett) 452 ms P [place] 61 degrees R [place] 27 degrees T [place] 106 degrees Sinus tachycardia Nonspecific T wave abnormality Prolonged QT Abnormal ECG When compared with ECG of 03-JAN-2018 00:48, Fusion complexes are no longer Present Confirmed by Charlene KELLOGG BASANT ([id number]) on 01/12/2018 8:44:48 PM Performing Organization Address City/[facility] Phone Number [facility] * XR chest 1 view portable / bedside (01/10/2018 5:28 AM CDT) Only the most recent of 2 results within the time period is included. Specimen Narrative Performed At FINAL REPORT [facility] Chest one view. Clinical history: SOB post [...] MD Report Verified Date/Time:01/10/2018 06:32:36 Reading Location: [address] Body Reading Room Procedure Note Interface, [...] Report Verified Date/Time: 01/10/2018 06:32:36 Reading Location: [facility] C0[facility] CT Body Reading Room Performing Organization Address City/[facility] Phone Number [facility] * C-Reactive Protein (01/10/2018 4:34 AM CDT) Only the most recent of 2 results within the time period is included. CRP 2.35 (H) 0.00 - 0.50 mg/dL [facility] Specimen Blood Performing Organization Address City/State/Zipcode Phone Number [facility] [address] [place], [place] [id number] [facility] * Lactic acid, venous, whole blood (01/10/2018 4:23 AM CDT) Lactate, Venous 2.7 (H) 0.5 - 2.2 mmol/L [facility] Specimen Blood Narrative Performed At Effective 08/17/2015: Units/Reference Range Change [facility] New: 0.5-2.2 mmol/LPrevious: 5-20 mg/dL [facility] Performing Organization Address City/[facility]/Zipcode Phone Number [facility] [address] [place] [address] [facility] * IR Tunneled Catheter Exchange (01/09/2018 5:40 PM CDT) Specimen Narrative Performed At FINAL REPORT [facility] Procedure: Removal replaced damage right internal jugular [...] MD Report Verified Date/Time:01/09/2018 19:06:03 Reading Location: [place] [address] Angio Body Reading Room Procedure Note Interface, [...] Report Verified Date/Time: 01/09/2018 19:06:03 Reading Location: [facility] P048 Angio Body Reading Room Performing Organization Address City/State/Zipcode Phone Number [facility] * hCG, quantitative, (01/09/2018 4:08 AM CDT) hCG Quant <1 0 - 10 mIU/mL [facility] Specimen Blood Narrative Performed At Non- Females: <10 mIU/mL [facility] Females: [facility] Gestation AgeReference Range(mIU/mL) 0.2-1 Week5-50 1-2 [id number] 2-3 Weeks 100-5,000 3-4 Weeks 500-10,000 4-5 Weeks 1,000-50,000 5-6 Weeks10,000-100,000 6-8 Weeks15,000-200,000 2-3 Months 10,000-100,000 Performing Organization Address City/[facility]/[place] [address] MEDICAL CENTER * PERMANENT LAB REPORT - SCAN (01/07/2018 11:13 AM CDT) Narrative Performed At * Immunofixation electrophoresis (TONYA) (01/06/2018 4:08 PM CDT) IgG 3,413 (H) 540 - 1,822 mg/dL [facility] IgA 483 63 - 484 mg/dL [facility] IgM 130 22 - 293 mg/dL [facility] Serum TONYA Identification No monoclonal bands detected. [facility] Polyclonal distribution of [facility] immunoglobulins. Pathologist: Belkis tSyles MD [facility] (electronic signature) [facility] Specimen Blood Performing Organization Address City/State/Zipcode Phone Number [facility] [address] [place] [address] [facility] * Protein electrophoresis, serum (01/06/2018 4:08 PM CDT) Albumin Fraction 2.6 (L) 3.5 - 5.5 g/dL [facility] Alpha 1 Fraction 0.3 0.2 - 0.4 g/dL [facility] Alpha 2 Fraction 0.8 0.5 - 0.9 g/dL [facility] Beta Fraction 1.0 0.6 - 1.1 g/dL [facility] Gamma Globulin Fraction 3.2 (H) 0.7 - 1.7 g/dL [facility] Interpretation Decreased albumin consistent [facility] with renal protein loss. [facility] Polyclonal elevation of gamma fraction, which may be seen with chronic inflammation and/or recent administration of IVIG. Serum TONYA ordered to exclude presence of small monoclonal protein underlying. Pathologist: Belkis Styles MD [facility] (electronic signature) [facility] Protein, Total 7.8 6.0 - 8.3 gm/dL [facility] Specimen Blood Performing Organization Address City/[facility]/Zipcode Phone Number [facility] [address] [place] [address] [facility] * PTH, intact (01/06/2018 4:08 PM CDT) PTH 80.1 (H) 8.5 - 72.5 pg/mL [facility] Specimen Blood Performing Organization Address City/[facility]/Zipcode Phone Number [facility] [address] [place] [address] MEDICAL CENTER * Lactate dehydrogenase (LDH) (01/06/2018 4:08 PM CDT) LDH 171 125 - 220 U/L [facility] Specimen Blood Performing Organization Address City/State/Zipcode Phone Number [facility] [address] [place] [address] MEDICAL CENTER * XR shoulder complete 2 views min left (01/05/2018 10:00 AM CDT) Specimen Narrative Performed At FINAL REPORT [facility] LEFT SHOULDER 3 VIEWS HISTORY: Left shoulder [...] MD Report Verified Date/Time:01/05/2018 10:47:29 Reading Location: [address] Transitional Reading Room Procedure Note Interface, [...] Report Verified Date/Time: 01/05/2018 10:47:29 Reading Location: [address] Transitional Reading Room Performing Organization Address City/State/Zipcode Phone Number [facility] * XR elbow 3 views min left (01/05/2018 10:00 AM CDT) Specimen Narrative Performed At FINAL REPORT [facility] LEFT ELBOW 3 VIEWS HISTORY: Left elbow [...] MD Report Verified Date/Time:01/05/2018 10:51:25 Reading Location: [address] Transitional Reading Room Procedure Note Interface, [...] Report Verified Date/Time: 01/05/2018 10:51:25 Reading Location: [address] Transitional Reading Room Performing Organization Address [facility] Phone Number [facility] * XR humerus 2 views left (01/05/2018 10:00 AM CDT) Specimen Narrative Performed At FINAL REPORT [facility] LEFT HUMERUS 2 VIEWS HISTORY: Left arm [...] MD Report Verified Date/Time:01/05/2018 10:55:40 Reading Location: [address] Transitional Reading Room Procedure Note Interface, [...] Report Verified Date/Time: 01/05/2018 10:55:40 Reading Location: [address] Transitional Reading Room Performing Organization Address [facility] Phone Number RIS * HEMODIALYSIS INPATIENT (01/03/2018 1:43 PM [...] 9:16 AM CDT) hepatitis B Surface Ag Nonreactive Nonreactive [facility] Specimen Blood Performing Organization Address City/[facility]/Zipcode Phone Number [phone] * Hemoglobin A1c (01/03/2018 9:16 AM CDT) Hemoglobin A1C 6.0 4.3 - 6.1 % [facility] Specimen Blood Performing Organization Address City/[facility]/Zipcode Phone Number [address] * ED ECG Interpretation (01/03/2018 6:35 AM CDT) Narrative Performed At Meghan Montiel MD 01/03/20186:35 AM ECG/EKG Interpretation Date/Time: 01/03/2018 5:09 AM Performed by: MEGHAN MONTIEL Authorized by: MEGHAN MONTIEL The ECG was interpreted by ED physician. The ECG is interpreted as sinus rhythm. Rate is tachycardic. [place] is normal. Clinical Impression: non-specific ECGECG reviewed and does not meet STEMI criteria. Patient tolerance: Patient tolerated the procedure well with no immediate complications * Urinalysis w/ Microscopic (01/03/2018 4:24 AM CDT) Color, UA Yellow [facility] Clarity, UA Hazy [facility] Specific [place], UA 1.016 1.001 - 1.035 [facility] pH, UA 6.0 5.0 - 8.0 [facility] Protein, UA 300 mg/dL (A) Negative [facility] Glucose, UA Negative Negative [facility] Ketones, UA Negative Negative [facility] Bilirubin, UA Negative Negative [facility] Blood, UA Moderate (A) Negative [facility] Nitrite, UA Negative Negative [facility] Leukocytes, UA Large (A) Negative [facility] Urobilinogen, UA 0.2 0.2 - 1.0 mg/dL [facility] RBC, UA 104 /HPF [facility] WBC, UA 57 /HPF [facility] Bacteria, UA Few [facility] Hyaline Casts, UA 27 /LPF [facility] Granular Casts, UA 4 /LPF [facility] Amorphous Crystals Occasional [facility] Specimen Source Urine, Straight Catheter [facility] Specimen Urine - Urine, Straight Catheter Performing Organization Address City/[facility] Phone Number [facility] [address] [place] [address] [facility] * Troponin I (01/03/2018 1:09 AM CDT) Troponin I 0.02 0.00 - 0.03 ng/mL [facility] Specimen Blood Narrative Performed At Troponin I (TnI) levels must be interpreted in the context of the presenting [facility] symptoms and the clinical findings. Elevated TnI levels indicate myocardial [facility] damage, but are not specific for ischemic heart disease. Elevated TnI levels are seen in patients with other cardiac conditions (including myocarditis and congestive heart failure), and slight TnI elevations occur in patients with other conditions, including sepsis, renal failure, acidosis, acute neurological disease, and persistent tachyarrhythmia. Performing Organization Address City/[facility] [place] [address] [phone] * B-type natriuretic peptide (01/03/2018 1:09 AM CDT) BNP 3,706 (H) 0 - 100 pg/mL [facility] Specimen Blood Performing Organization Address City/[facility]cow[facility] Phone Number [place] [phone] * Lipase (01/03/2018 1:09 AM CDT) Lipase 7 (L) 8 - 78 U/L [facility] Specimen Blood Performing Organization Address [facility] Phone Number [place] [phone] * Amylase (01/03/2018 1:09 AM CDT) Amylase 47 25 - 125 U/L [facility] Specimen Blood Performing Organization Address [facility] Phone Number [place] [phone] * Hepatic function panel (01/03/2018 1:09 AM CDT) Protein, Total 7.9 6.0 - 8.3 gm/dL [facility] Albumin 2.4 (L) 3.5 - 5.0 g/dL [facility] Total Bilirubin 0.5 0.2 - 1.2 mg/dL [facility] Bilirubin, Direct 0.3 0.1 - 0.5 mg/dL [facility] Alkaline Phosphatase 133 40 - 150 U/L [facility] AST 7 5 - 34 U/L [facility] ALT 6 6 - 55 U/L [facility] Specimen Blood Performing Organization Address [facility]code Phone Number [address] [phone] [facility] after 10/16/2017 Insurance Payer Benefit Subscriber ID Type Phone Address Plan / Group [employer] MEDICAID MEDICAID xxxxxxxxx [place] MED[place]ID - MEDICAID [id number] MEDICAID xxxxxxxxx Medicaid CARE [place] Non-Contra NONCONTRAC cted EMILY Advance Directives For more information, please contact: [facility] [address], [place] [phone] Date Inactivated Comments Code Status Date Activated 01/23/2018 6:21 PM Full Code 01/03/2018 7:16 AM This code status was determined by: Patient
[2018-10-17] MEDS ORDERED: DIPHENHYDRAMINE HCL 25 MG CAP PO ONE (03:30)
[2018-10-17] MEDS ORDERED: PREDNISONE 20 MG TAB PO ONE (03:30)
[2018-10-17] MEDS ORDERED: PREDNISONE 20 MG TAB ONE (03:37)
[2018-10-17] MEDS ORDERED: DIPHENHYDRAMINE HCL 25 MG CAP ONE (03:38)
[2018-10-17 03:58] LABS: BASOPHILS % 0.6 % (0.0-1.0); EOSINOPHILS # (AUTO) 0.1 (0.0-0.4); EOSINOPHILS % 3.3 % (0.0-6.0); HEMATOCRIT 31.2 % (34.2-44.1); HEMOGLOBIN 8.9 g/dL (12.0-16.0); LYMPHOCYTES % 29.7 % (18.0-39.1); MEAN CORPUSCULAR HEMOGLOBIN 27.1 pg (28-32); MEAN CORPUSCULAR HGB CONC 28.5 g/dL (31-35); MEAN CORPUSCULAR VOLUME 95.1 fL (81-99); MONOCYTES # (AUTO) 0.3 (0.2-0.8); MONOCYTES % 8.4 % (4.4-11.3); NEUTROPHILS # (AUTO) 1.9 (2.1-6.9); NEUTROPHILS % 57.4 % (38.7-80.0); PLATELET COUNT 143 x10e3/uL (140-360); RED BLOOD COUNT 3.28 x10e6/uL (3.6-5.1); RED CELL DISTRIBUTION WIDTH 18.2 % (11.7-14.4)
[2018-10-17 04:38] VITALS: BP 105/83
[2018-10-17 07:00] LABS: ALBUMIN 2.9 g/dL (3.5-5.0); ALBUMIN/GLOBULIN RATIO 0.7 (0.8-2.0); ANION GAP 17.6 mmol/L (8-16); CALCIUM 7.9 mg/dL (8.4-10.2); CREATININE, SERUM 3.54 mg/dL (0.57-1.11); POTASSIUM 3.6 mmol/L (3.5-5.1)
== END 2018-10-17 04:40 | disposition home or self-care (01) ==
LOC: ER 03:18
DX: K92.1 Melena (principal); R21 Rash and other nonspecific skin eruption
CPT/HCPCS: 36415; 80053; 85025; 99283; J7512

== ENCOUNTER 2018-10-18 03:24 | Emergency (ER) | payer OTHER ==
[~2018-10-18] VITALS: Ht 160 cm; Wt 56.2 kg
--- OUTSIDE RECORDS SUMMARY | 2018-10-18 03:31 | XMS REPORT | Clinical Summary ---
Author Author [employer] [facility] Organization [facility] [employer] [facility] Address Unknown Phone Unavailable Care Team Providers Care Break Up Worker Name Role Phone Ger Mukherjee MD PCP [...] 1,000 1 each 0 IVPB 1 gram ADD-Concan mg into a 8 in 100 mLIndications: [...] Elevated brain natriuretic peptide (BNP) level 01/26/2018 [facility] General Internal Medicine - Encounter 02/18/2018 [...] unspecified CKD stage; Leg swelling; Anxiety 12/27/2017 [facility] Internal Medicine - Encounter 01/03/2018 after 10/17/2017 Immunizations Name Dates Previously Given Next Due [...] Taken Vital Sign Reading 02/20/2018 2:16 AM STAFFING OPERATIONS MANAGER Blood Pressure 130/73 02/20/2018 2:16 AM STAFFING OPERATIONS MANAGER Pulse 97 02/19/2018 8:39 PM STAFFING OPERATIONS MANAGER Temperature 36.5 C (97.7 F) 02/20/2018 2:16 AM STAFFING OPERATIONS MANAGER Respiratory Rate 18 02/20/2018 2:16 AM STAFFING OPERATIONS MANAGER Oxygen Saturation 98% - Inhaled Oxygen - Concentration 01/31/2018 11:01 AM CDT Weight 67.5 kg (148 lb 14.4 oz) 02/19/2018 8:52 PM STAFFING OPERATIONS MANAGER Height 160 cm (5' 3") 12/28/2017 5:56 [...] Leads Defibrilla tors & Leads 10/12/2020 [place] [id number] IM / / [id number] Set Cathztn Hmodial Lngtrm Accs Surgical N/A: N/A ARROW 15fr 24cm Edge [employer]plicity - Implants; [employer] [id number] Expanders; [employer] Implanted: 01/02/2018 (Quantity not Extenders; on file) Surgical Wires Procedures Comments Procedure Name Priority Date/Time Associated Diagnosis CT LUMBAR SPINE WO STAT 02/20/2018 CONTRAST 1:01 AM STAFFING OPERATIONS MANAGER CT HEAD WO CONTRAST STAT 02/20/2018 12:56 AM STAFFING OPERATIONS MANAGER XR CHEST 1 VW PORTABLE STAT 02/20/2018 12:02 AM STAFFING OPERATIONS MANAGER HCG QUALITATIVE, SERUM STAT 02/19/2018 SCREEN 11:45 PM STAFFING OPERATIONS MANAGER PROTHROMBIN TIME WITH INR STAT 02/19/2018 10:39 PM STAFFING OPERATIONS MANAGER PARTIAL THROMBOPLASTIN STAT 02/19/2018 TIME (PTT) 10:39 PM STAFFING OPERATIONS MANAGER CREATINE KINASE, TOTAL STAT 02/19/2018 (CPK) 10:39 PM STAFFING OPERATIONS MANAGER ESTIMATED GFR STAT 02/19/2018 10:39 PM STAFFING OPERATIONS MANAGER B NATRIURETIC PEPTIDE STAT 02/19/2018 10:39 PM STAFFING OPERATIONS MANAGER TROPONIN STAT 02/19/2018 10:39 PM STAFFING OPERATIONS MANAGER BETA HYDROXYBUTYRATE STAT 02/19/2018 10:39 PM STAFFING OPERATIONS MANAGER COMPREHENSIVE METABOLIC STAT 02/19/2018 PANEL 10:39 PM STAFFING OPERATIONS MANAGER HC COMPLETE BLD COUNT STAT 02/19/2018 W/AUTO DIFF 10:39 PM STAFFING OPERATIONS MANAGER ECG ED PRELIMINARY Routine 02/19/2018 INTERPRETATION 9:56 PM STAFFING OPERATIONS MANAGER POC GLUCOSE Routine 02/19/2018 9:36 PM STAFFING OPERATIONS MANAGER ECG 12-LEAD STAT 02/19/2018 9:07 PM STAFFING OPERATIONS MANAGER POC GLUCOSE Routine 02/18/2018 1:46 PM STAFFING OPERATIONS MANAGER POC GLUCOSE Routine 02/18/2018 12:19 PM STAFFING OPERATIONS MANAGER POC GLUCOSE Routine 02/18/2018 7:44 AM STAFFING OPERATIONS MANAGER POC GLUCOSE Routine 02/18/2018 7:03 AM STAFFING OPERATIONS MANAGER POC GLUCOSE Routine 02/18/2018 1:28 AM STAFFING OPERATIONS MANAGER POC GLUCOSE Routine 02/17/2018 9:13 PM STAFFING OPERATIONS MANAGER POC GLUCOSE Routine 02/17/2018 5:37 PM STAFFING OPERATIONS MANAGER ULTRAFILTRATION Routine 02/17/2018 5:07 PM STAFFING OPERATIONS MANAGER POC GLUCOSE Routine 02/17/2018 3:38 PM STAFFING OPERATIONS MANAGER POC GLUCOSE Routine 02/17/2018 1:24 PM STAFFING OPERATIONS MANAGER POC GLUCOSE Routine 02/17/2018 12:14 PM STAFFING OPERATIONS MANAGER POC GLUCOSE Routine 02/17/2018 9:43 AM STAFFING OPERATIONS MANAGER POC GLUCOSE Routine 02/17/2018 8:01 AM STAFFING OPERATIONS MANAGER SMEAR REVIEW Routine 02/17/2018 4:30 AM STAFFING OPERATIONS MANAGER HC COMPLETE BLD COUNT Routine 02/17/2018 W/AUTO DIFF 4:30 AM STAFFING OPERATIONS MANAGER POC GLUCOSE Routine 02/17/2018 4:14 AM STAFFING OPERATIONS MANAGER ESTIMATED GFR Routine 02/17/2018 4:00 AM STAFFING OPERATIONS MANAGER BASIC METABOLIC PANEL Routine 02/17/2018 4:00 AM STAFFING OPERATIONS MANAGER POC GLUCOSE Routine 02/16/2018 11:06 PM STAFFING OPERATIONS MANAGER POC GLUCOSE Routine 02/16/2018 8:45 PM STAFFING OPERATIONS MANAGER POC GLUCOSE Routine 02/16/2018 6:20 PM STAFFING OPERATIONS MANAGER POC GLUCOSE Routine 02/16/2018 5:35 PM STAFFING OPERATIONS MANAGER HEMODIALYSIS Routine 02/16/2018 2:21 PM STAFFING OPERATIONS MANAGER POC GLUCOSE Routine 02/16/2018 1:37 PM STAFFING OPERATIONS MANAGER POC GLUCOSE Routine 02/16/2018 12:29 PM STAFFING OPERATIONS MANAGER POC GLUCOSE Routine 02/16/2018 7:57 AM STAFFING OPERATIONS MANAGER POC GLUCOSE Routine 02/15/2018 9:54 PM CDT [...] CDT ECHOCARDIOGRAM WITH Routine 01/29/2018 AGITATED SALINE (00606) 10:05 AM CDT POC GLUCOSE Routine 01/29/2018 [...] MMODE SPECTRAL 9:36 AM CDT COLOR DOPPLER (76373) POC GLUCOSE Routine 12/30/2017 7:43 AM CDT [...] 12-LEAD STAT 12/27/2017 9:43 PM CDT after 10/17/2017 Results * CT Lumbar Spine Wo Contrast (02/20/2018 1:01 AM STAFFING OPERATIONS MANAGER) Specimen Narrative Performed At EXAMINATION: CT LUMBAR [...] acute osseous abnormality of the lumbar spine. [facility]-[id number] Procedure Note Hm Interface, Radiology Results Incoming - 02/20/2018 1:10 AM STAFFING OPERATIONS MANAGER EXAMINATION: CT LUMBAR SPINE WO CONTRAST CLINICAL [...] acute osseous abnormality of the lumbar spine. [facility]-[id number] Performing Organization Address City/State/Zipcode Phone Number [facility] [address] [place] [address] * CT Head Wo Contrast (02/20/2018 12:56 AM STAFFING OPERATIONS MANAGER) Only the most recent of 3 results [...] normal. IMPRESSION: No acute intracranial abnormality identified. [facility]-[id number] Procedure Note Interface, Radiology Results Incoming - 02/20/2018 1:07 AM STAFFING OPERATIONS MANAGER EXAMINATION: CT HEAD WO CONTRAST CLINICAL HISTORY: [...] normal. IMPRESSION: No acute intracranial abnormality identified. [facility]-[id number] Performing Organization Address City/State/Zipcode Phone Number [facility] [address] [place] [address] * XR Chest 1 Vw Portable (02/20/2018 12:02 AM STAFFING OPERATIONS MANAGER) Only the most recent of 4 results within the time period is included. Specimen Narrative Performed At Examination:XR CHEST 1 [facility]W [facility]ABLE [facility] Clinical History:Shortness of breath Comparison: 01/31/2018 Technique: [...] lung volume with vascular crowding or congestion. [facility]-[id number] Procedure Note Interface, Radiology Results Incoming - 02/20/2018 12:08 AM STAFFING OPERATIONS MANAGER Examination: XR CHEST 1 VW PORTABLE Clinical [...] lung volume with vascular crowding or congestion. [facility]-[id number] Performing Organization Address City/[facility]/[place] [address] * hCG qualitative, serum screen (02/19/2018 11:45 PM STAFFING OPERATIONS MANAGER) Only the most recent of 2 results within the time period is included. [facility] hCG NegativeComment: Sensitivity [facility] DEPARTMENT qualitative, of HCG test: 25 mIU/mL OF PATHOLOGY serum AND GENOMIC MEDICINE Specimen Blood Performing Organization Address [facility] Phone Number [facility] DEPARTMENT OF [address] [place] [address] PATHOLOGY AND GENOMIC MEDICINE * Estimated GFR (02/19/2018 10:39 PM STAFFING OPERATIONS MANAGER) Only the most recent of 18 results within the time period is included. [facility] Estimated GFR 10 (A) mL/min/1.73 m2 [facility] DEPARTMENT Comment: OF PATHOLOGY CatergoryUnitsInte AND GENOMIC rpretation MEDICINE G1 >=90 Normal or high G2 60-89Mildly decreased [id number] Mildly to moderately decreased [id number] Moderately to severely decreased G4 15-29Severely decreased G5 <15Kidney failure The eGFR was calculated using the Chronic Kidney Disease Epidemiology Collaboration (CKD-EPI) equation. Interpretation is based on recommendations of the National Kidney Foundation-Kidney Disease Outcomes Quality Initiative (NKF-KDOQI) published in 2014. Specimen Plasma specimen Performing Organization Address City/[facility] Phone Number [facility] DEPARTMENT OF [address] [place] [address] PATHOLOGY AND GENOMIC MEDICINE * Beta hydroxybutyrate (02/19/2018 10:39 PM STAFFING OPERATIONS MANAGER) [facility] Beta 0.07 0.02 - 0.27 mmol/L [facility] hydroxybutyrate OF PATHOLOGY AND GENOMIC MEDICINE Specimen Serum Performing Organization Address [facility] Phone Number [facility] DEPARTMENT OF [address] [place] [address] PATHOLOGY AND GENOMIC MEDICINE * Troponin (02/19/2018 10:39 PM STAFFING OPERATIONS MANAGER) Only the most recent of 7 results within the time period is included. Pathologist [facility] Troponin <0.30 0.00 - 0.30 ng/mL [facility] DEPARTMENT Comment: OF PATHOLOGY 0.30 - 1.49 AND GENOMIC ng/mlMa MEDICINE indicate increased risk of acute coronary syndrome. >=1.5 ng/ml Consistent with acute myocardial infarction. The diagnostic value of a single normal or non-diagnostic result is questionable.Serial samples at 2-6 hour intervals are required to rule out acute myocardial injury. Specimen Plasma specimen Performing Organization Address City/[facility]/Zipcode Phone Number [facility] DEPARTMENT OF [address] [place] [address] PATHOLOGY AND [facility] * Partial thromboplastin time, activated (02/19/2018 10:39 PM STAFFING OPERATIONS MANAGER) Only the most recent of 4 results within the time period is included. Pathologist [facility] PTT 44.7 (H) 23.0 - 36.0 sec [facility] DEPARTMENT Comment: OF PATHOLOGY PTT therapeutic range for AND GENOMIC unfractionated heparin is MEDICINE 61.0-112.0 seconds which corresponds to Anti-Xa 0.3-0.7 U/ml. Specimen Blood Performing Organization Address [facility] Phone Number [facility] [place] [address] PATHOLOGY AND [facility] * Prothrombin time with INR (02/19/2018 10:39 PM STAFFING OPERATIONS MANAGER) Only the most recent of 4 results within the time period is included. Pathologist [facility] Prothrombin 15.7 (H) 11.5 - 14.5 sec [facility] DEPARTMENT time OF PATHOLOGY AND [employer] MEDICINE INR 1.3 [facility] DEPARTMENT Comment: OF PATHOLOGY The International Normalized AND GENOMIC Ratio (INR) is a therapeutic MEDICINE monitoring tool for patients who are stable on oral anticoagulant therapy. An INR of 2.0-3.0 is suggested for deep vein thrombosis/pulmonary embolism. Specimen Blood Performing Organization Address City/[facility]/Zipcode Phone Number [facility] [place] [address] PATHOLOGY AND [facility] MEDICINE * CBC with platelet and differential (02/19/2018 10:39 PM STAFFING OPERATIONS MANAGER) Only the most recent of 13 results within the time period is included. Pathologist [facility] WBC 5.22 4.50 - 11.00 k/uL [facility] DEPARTMENT OF PATHOLOGY AND GENOMIC MEDICINE RBC 4.05 (L) 4.20 - 5.50 m/uL [facility] DEPARTMENT OF PATHOLOGY AND GENOMIC MEDICINE HGB 11.5 (L) 12.0 - 16.0 g/dL [facility] DEPARTMENT OF PATHOLOGY AND GENOMIC MEDICINE HCT 39.6 37.0 - 47.0 % [facility] DEPARTMENT OF PATHOLOGY AND GENOMIC MEDICINE MCV 97.8 82.0 - 100.0 fL [facility] DEPARTMENT OF PATHOLOGY AND GENOMIC MEDICINE MCH 28.4 27.0 - 34.0 pg [facility] DEPARTMENT OF PATHOLOGY AND GENOMIC MEDICINE MCHC 29.0 (L) 31.0 - 37.0 g/dL [facility] DEPARTMENT OF PATHOLOGY AND GENOMIC MEDICINE RDW - SD 65.5 (H) 37.0 - 55.0 fL [facility] DEPARTMENT OF PATHOLOGY AND GENOMIC MEDICINE MPV 10.4 8.8 - 13.2 fL [facility] DEPARTMENT OF PATHOLOGY AND GENOMIC MEDICINE Platelet count 147 (L) 150 - 400 k/uL [facility] DEPARTMENT OF PATHOLOGY AND GENOMIC MEDICINE Nucleated RBC 0.00 /100 WBC [facility] DEPARTMENT OF PATHOLOGY AND GENOMIC MEDICINE Neutrophils 71.7 (H) 39.0 - 69.0 % [facility] DEPARTMENT OF PATHOLOGY AND GENOMIC MEDICINE Lymphocytes 17.6 (L) 25.0 - 45.0 % [facility] DEPARTMENT OF PATHOLOGY AND GENOMIC MEDICINE Monocytes 8.0 0.0 - 10.0 % [facility] DEPARTMENT OF PATHOLOGY AND GENOMIC MEDICINE Eosinophils 1.7 0.0 - 5.0 % [facility] DEPARTMENT OF PATHOLOGY AND GENOMIC MEDICINE Basophils 0.6 0.0 - 1.0 % [facility] DEPARTMENT OF PATHOLOGY AND GENOMIC MEDICINE Immature 0.4Comment: "Immature 0.0 - 1.0 % [facility] DEPARTMENT granulocytes granulocytes" (promyelocytes, OF PATHOLOGY myelocytes, metamyelocytes) AND GENOMIC MEDICINE Specimen Blood Performing Organization Address City/[facility]/Zipcode Phone Number [facility] DEPARTMENT OF [address] [place] [phone] PATHOLOGY AND GENOMIC MEDICINE * B natriuretic peptide (02/19/2018 10:39 PM STAFFING OPERATIONS MANAGER) Only the most recent of 4 results within the time period is included. BNP 506 (H) 0 - 100 pg/mL [facility] DEPARTMENT OF PATHOLOGY AND GENOMIC MEDICINE Specimen Blood Performing Organization Address City/[facility]/Zipcode Phone Number [facility] DEPARTMENT [address] [address] PATHOLOGY AND GENOMIC MEDICINE * Creatine kinase, total (CPK) (02/19/2018 10:39 PM STAFFING OPERATIONS MANAGER) Pathologist [facility] Creatine kinase 40 26 - 192 U/L [facility] DEPARTMENT OF PATHOLOGY AND GENOMIC MEDICINE Specimen Plasma specimen Performing Organization Address City/State/Zipcode Phone Number [facility] DEPARTMENT OF [address] [place] [address] PATHOLOGY AND GENOMIC MEDICINE * Comprehensive metabolic panel (02/19/2018 10:39 PM STAFFING OPERATIONS MANAGER) Only the most recent of 8 results within the time period is included. Pathologist [facility] Sodium 137 135 - 148 mEq/L [facility] DEPARTMENT OF PATHOLOGY AND GENOMIC MEDICINE Potassium 3.9 3.5 - 5.0 mEq/L [facility] DEPARTMENT OF PATHOLOGY AND GENOMIC MEDICINE Chloride 98 98 - 112 mEq/L [facility] DEPARTMENT OF PATHOLOGY AND GENOMIC MEDICINE CO2 20 (L) 24 - 31 mEq/L [facility] DEPARTMENT OF PATHOLOGY AND GENOMIC MEDICINE Anion gap 19@ANIO (H) 7 - 15 mEq/L [facility] DEPARTMENT OF PATHOLOGY AND GENOMIC MEDICINE BUN 35 (H) 6 - 20 mg/dL [facility] DEPARTMENT OF PATHOLOGY AND GENOMIC MEDICINE Creatinine 5.83 (H) 0.50 - 0.90 mg/dL [facility] DEPARTMENT OF PATHOLOGY AND GENOMIC MEDICINE Glucose 138 (H) 65 - 99 mg/dL [facility] DEPARTMENT OF PATHOLOGY AND GENOMIC MEDICINE Calcium 9.0 8.3 - 10.2 mg/dL [facility] DEPARTMENT OF PATHOLOGY AND GENOMIC MEDICINE Protein 8.5 (H) 6.3 - 8.3 g/dL [facility] DEPARTMENT Comment: OF PATHOLOGY [place] AND GENOMIC 4.6-7.0 g/dL MEDICINE 1 week 4.4-7.6 g/dL 7 months-1year 5.1-7.3 g/dL 1-2 years5.6-7 .5 g/dL >3 years6.0-8 .0 g/dL 18-150 6.3-8.3 g/dL Albumin 2.6 (L) 3.5 - 5.0 g/dL [facility] DEPARTMENT OF PATHOLOGY AND GENOMIC MEDICINE A/G ratio 0.4 (L) 0.7 - 3.8 [facility] DEPARTMENT OF PATHOLOGY AND GENOMIC MEDICINE Alkaline 205 (H) 35 - 104 U/L [facility] DEPARTMENT phosphatase OF PATHOLOGY AND GENOMIC MEDICINE AST 29 10 - 35 U/L [facility] DEPARTMENT OF PATHOLOGY AND GENOMIC MEDICINE ALT 25 5 - 50 U/L [facility] DEPARTMENT OF PATHOLOGY AND GENOMIC MEDICINE Total bilirubin 0.3 0.0 - 1.2 mg/dL [facility] DEPARTMENT OF PATHOLOGY AND GENOMIC MEDICINE Specimen Plasma specimen Performing Organization Address City/[facility] Mex[facility]ode Phone Number [facility] DEPARTMENT OF [address] [place] [address] PATHOLOGY AND GENOMIC MEDICINE * ECG ED Preliminary Interpretation - NOT AN ORDER (02/19/2018 9:56 PM STAFFING OPERATIONS MANAGER) Only the most recent of 2 results within the time period is included. Narrative Performed At Kourtney Sanchez MD 02/20/20185:40 PM ECG ED Preliminary Interpretation - Not an Order Performed by: KOURTNEY SANCHEZ Authorized by: KOURTNEY SANCHEZ ECG reviewed by ED Physician in the absence of a conventional mortgage underwriter: yes Previous ECG: Previous ECG:Compared to current [...] normal * POC glucose (02/19/2018 9:36 PM STAFFING OPERATIONS MANAGER) Only the most recent of 165 results within the time period is included. POC glucose 148 (H) 65 - 99 mg/dL [facility] DEPARTMENT Comment: OF PATHOLOGY No Action Needed AND GENOMIC Meter ID: [id number] MEDICINE Investment Fund Manager: Roel Dorsey Specimen Performing Organization Address City/[facility] Mex[facility]ode Phone Number [facility] DEPARTMENT OF [address] [place] [address] PATHOLOGY AND GENOMIC MEDICINE * ECG 12 lead (02/19/2018 9:07 PM STAFFING OPERATIONS MANAGER) Only the most recent of 4 results within the time period is included. Ventricular 101 [facility] rate Atrial rate 101 [facility] IL interval 186 [facility] QRSD interval 100 [facility] QT interval 392 [facility] QTC interval 508 [facility] MUSE P axis 1 58 [facility] QRS axis 1 -9 [facility] T wave axis 75 [facility] EKG impression Sinus tachycardia-Nonspecific [facility] MUSE ST and T wave abnormality-Abnormal ECG-In automated comparison with ECG of 26-JAN-2018 23:47,-Nonspecific T wave abnormality no longer evident in Inferior leads-T wave inversion no longer evident in Lateral leads- Specimen Performing Organization Address City/[facility] Mex[facility] Phone Number [facility] MUSE [address] [place] [address] * Smear review (02/17/2018 4:30 AM STAFFING OPERATIONS MANAGER) Platelet slide Kenia adequate [facility] DEPARTMENT review OF PATHOLOGY AND GENOMIC MEDICINE Anisocytosis Moderate [facility] DEPARTMENT OF PATHOLOGY AND GENOMIC MEDICINE Polychromasia Moderate [facility] DEPARTMENT OF PATHOLOGY AND GENOMIC MEDICINE Ovalocytes Moderate [facility] DEPARTMENT OF PATHOLOGY AND GENOMIC MEDICINE Specimen Performing Organization Address [facility] Phone Number [facility] DEPARTMENT OF [address] [place], [place] [id number] PATHOLOGY AND GENOMIC MEDICINE * Basic metabolic panel (02/17/2018 4:00 AM STAFFING OPERATIONS MANAGER) Only the most recent of 10 results within the time period is included. Sodium 136 135 - 148 mEq/L [facility] DEPARTMENT OF PATHOLOGY AND GENOMIC MEDICINE Potassium 4.8 3.5 - 5.0 mEq/L [facility] DEPARTMENT OF PATHOLOGY AND GENOMIC MEDICINE Chloride 97 (L) 98 - 112 mEq/L [facility] DEPARTMENT OF PATHOLOGY AND GENOMIC MEDICINE CO2 22 (L) 24 - 31 mEq/L [facility] DEPARTMENT OF PATHOLOGY AND GENOMIC MEDICINE Anion gap 17@ANIO (H) 7 - 15 mEq/L [facility] DEPARTMENT OF PATHOLOGY AND GENOMIC MEDICINE BUN 32 (H) 6 - 20 mg/dL [facility] DEPARTMENT OF PATHOLOGY AND GENOMIC MEDICINE Creatinine 5.52 (H) 0.50 - 0.90 mg/dL [facility] DEPARTMENT OF PATHOLOGY AND GENOMIC MEDICINE Glucose 72 65 - 99 mg/dL [facility] DEPARTMENT OF PATHOLOGY AND GENOMIC MEDICINE Calcium 8.8 8.3 - 10.2 mg/dL [facility] DEPARTMENT OF PATHOLOGY AND GENOMIC MEDICINE Specimen Plasma specimen Performing Organization Address [facility]/Zipcode Phone Number [facility] DEPARTMENT OF [address] [place] [address] PATHOLOGY AND GENOMIC MEDICINE * CT Angiogram [...] axillary lymphadenopathy, stable when compared to prior. [facility]-[id number] Procedure Note [facility], Radiology Results Incoming - 02/14/2018 7:17 [...] axillary lymphadenopathy, stable when compared to prior. [facility]-[id number] Performing Organization Address City/[facility] Mex[facility]ode Phone Number [place] [phone] [place] [address] * Magnesium level (02/14/2018 12:00 PM CDT) Only the most recent of 3 results within the time period is included. Magnesium 2.5 1.6 - 2.6 mg/dL [facility] DEPARTMENT OF PATHOLOGY AND GENOMIC MEDICINE Specimen Plasma specimen Performing Organization Address City/[facility] Mex[facility]ode Phone Number [address] [address] PATHOLOGY AND GENOMIC MEDICINE * Phosphorus level (02/10/2018 4:56 AM CDT) Only the most recent of 2 results within the time period is included. Phosphorus 2.1 (L) 2.4 - 4.5 mg/dL [facility] DEPARTMENT OF PATHOLOGY AND GENOMIC MEDICINE Specimen Plasma specimen Performing Organization Address City/[facility] Phone Number [facility] [place] [address] PATHOLOGY AND GENOMIC MEDICINE * Free phenytoin level (02/10/2018 4:56 AM CDT) Phenytoin, free 0.49 (L) 1.00 - 2.00 ug/mL [facility] DEPARTMENT OF PATHOLOGY AND GENOMIC MEDICINE Specimen Blood Performing Organization Address [facility] Phone Number [facility] [place] [address] PATHOLOGY AND GENOMIC MEDICINE * Phenytoin level (02/10/2018 4:56 AM CDT) Only the most recent of 4 results within the time period is included. Phenytoin 3.5 (L) 10.0 - 20.0 ug/mL [facility] DEPARTMENT Comment: OF PATHOLOGY Therapeutic Range: AND GENOMIC 10 - 20 ug/mL MEDICINE Specimen Plasma specimen Performing Organization Address [facility] Phone Number [facility] [place] [address] PATHOLOGY AND GENOMIC MEDICINE * Sedimentation rate (02/08/2018 3:30 PM CDT) Only the most recent of 2 results within the time period is included. Sedimentation 38 (H) 0 - 20 mm/hr [facility] DEPARTMENT rate OF PATHOLOGY AND GENOMIC MEDICINE Specimen Blood Performing Organization Address [facility] Phone Number [facility] [place] [address] PATHOLOGY AND GENOMIC MEDICINE * C-reactive protein (02/08/2018 11:54 AM CDT) Only the most recent of 2 results within the time period is included. CRP 0.43 0.00 - 0.50 mg/dL [facility] DEPARTMENT OF PATHOLOGY AND GENOMIC MEDICINE Specimen Plasma specimen Performing Organization Address [facility] Phone Number [facility] [place] [address] PATHOLOGY AND GENOMIC MEDICINE * MRI Shoulder [...] SOFT TISSUES: Extensive periarticular soft tissue edema. [facility]-[id number] Procedure Note Interface, Radiology Results Incoming - [...] SOFT TISSUES: Extensive periarticular soft tissue edema. [facility]-[id number] Performing Organization Address City/State/Zipcode Phone Number [facility] [address] [place] [address] * MRI Cervical Spine Wo Contrast (02/07/2018 [...] IMPRESSION: No significant cervical spine abnormality identified. [facility]-[id number] Procedure Note Hm Interface, Radiology Results Incoming [...] IMPRESSION: No significant cervical spine abnormality identified. [id number] Performing Organization Address [facility]/Zipcode Phone Number [facility] [address] [place] [address] * MRI Brain Wo Contrast (02/07/2018 11:50 [...] are unremarkable. IMPRESSION: No acute intracranial abnormality. [id number] Procedure Note Interface, Radiology Results Incoming - [...] are unremarkable. IMPRESSION: No acute intracranial abnormality. [id number] Performing Organization Address [facility] Phone Number [facility] [address] [place] [address] * NM Bone Scan 3 Phase (02/05/2018 [...] suggest osteomyelitis involving the proximal left humerus. [facility]-[id number] Procedure Note [facility], Radiology Results Incoming - 02/05/2018 1:36 [...] suggest osteomyelitis involving the proximal left humerus. [facility]-[id number] Performing Organization Address City/State/Zipcode Phone Number [facility] [address] [place] [address] * CBC hemogram (02/04/2018 11:30 AM CDT) Only the most recent of 3 results within the time period is included. WBC 3.45 (L) 4.50 - 11.00 k/uL [facility] DEPARTMENT OF PATHOLOGY AND GENOMIC MEDICINE RBC 3.26 (L) 4.20 - 5.50 m/uL [facility] DEPARTMENT OF PATHOLOGY AND GENOMIC MEDICINE HGB 9.0 (L) 12.0 - 16.0 g/dL [facility] DEPARTMENT OF PATHOLOGY AND GENOMIC MEDICINE HCT 31.3 (L) 37.0 - 47.0 % [facility] DEPARTMENT OF PATHOLOGY AND GENOMIC MEDICINE MCV 96.0 82.0 - 100.0 fL [facility] DEPARTMENT OF PATHOLOGY AND GENOMIC MEDICINE MCH 27.6 27.0 - 34.0 pg [facility] DEPARTMENT OF PATHOLOGY AND GENOMIC MEDICINE MCHC 28.8 (L) 31.0 - 37.0 g/dL [facility] DEPARTMENT OF PATHOLOGY AND GENOMIC MEDICINE RDW - SD 61.7 (H) 37.0 - 55.0 fL [facility] DEPARTMENT OF PATHOLOGY AND GENOMIC MEDICINE MPV 10.8 8.8 - 13.2 fL [facility] DEPARTMENT OF PATHOLOGY AND GENOMIC MEDICINE Platelet count 142 (L) 150 - 400 k/uL [facility] DEPARTMENT OF PATHOLOGY AND GENOMIC MEDICINE Nucleated RBC 0.00 /100 WBC [facility] DEPARTMENT OF PATHOLOGY AND GENOMIC MEDICINE Specimen Blood Performing Organization Address City/[facility] Phone Number [facility] OF [address] [place] [address] PATHOLOGY AND [employer] MEDICINE * Urine drugs of abuse screen (02/02/2018 1:41 PM CDT) Only the most recent of 2 results within the time period is included. Amphetamine Negative [facility] DEPARTMENT screen, urine OF PATHOLOGY AND GENOMIC MEDICINE Barbiturate Negative [facility] DEPARTMENT screen, urine OF PATHOLOGY AND GENOMIC MEDICINE Benzodiazepine Negative [facility] DEPARTMENT screen, urine OF PATHOLOGY AND GENOMIC MEDICINE Cannabinoid Negative [facility] DEPARTMENT screen, urine OF PATHOLOGY AND GENOMIC MEDICINE Cocaine screen, Negative [facility] DEPARTMENT urine OF PATHOLOGY AND GENOMIC MEDICINE Methadone Negative [facility] DEPARTMENT metabolite OF PATHOLOGY (EDDP), urine AND GENOMIC MEDICINE Opiates screen, Positive (A) [facility] DEPARTMENT urine OF PATHOLOGY AND GENOMIC MEDICINE Oxycodone Negative [facility] DEPARTMENT screen, urine OF PATHOLOGY AND GENOMIC MEDICINE Phencyclidine Negative [facility] DEPARTMENT screen, urine OF PATHOLOGY AND GENOMIC MEDICINE Tricyclic Negative [facility] DEPARTMENT screen, urine Comment: OF PATHOLOGY Drug [...] purposes only. Specimen Urine Performing Organization Address [facility] Mex[facility] Phone Number [facility] OF [address] [place] [address] PATHOLOGY AND [employer] MEDICINE * Urinalysis, automated with microscopy (02/02/2018 1:41 PM CDT) Color, UA Dark Yellow [facility] DEPARTMENT OF PATHOLOGY AND GENOMIC MEDICINE Appearance, UA Hazy [facility] DEPARTMENT OF PATHOLOGY AND GENOMIC MEDICINE Specific 1.019 1.001 - 1.035 [facility] DEPARTMENT gravity, OF PATHOLOGY AND GENOMIC MEDICINE pH, UA 5.0 5.0 - 8.5 [facility] DEPARTMENT OF PATHOLOGY AND GENOMIC MEDICINE Protein, UA 2+ (A) Negative [facility] DEPARTMENT OF PATHOLOGY AND GENOMIC MEDICINE Glucose, UA Negative Negative [facility] DEPARTMENT OF PATHOLOGY AND GENOMIC MEDICINE Ketones, UA Negative Negative [facility] DEPARTMENT OF PATHOLOGY AND GENOMIC MEDICINE Bilirubin, UA Negative Negative [facility] DEPARTMENT OF PATHOLOGY AND GENOMIC MEDICINE Blood, UA Small (A) Negative [facility] DEPARTMENT OF PATHOLOGY AND GENOMIC MEDICINE Nitrite, UA Negative Negative [facility] DEPARTMENT OF PATHOLOGY AND GENOMIC MEDICINE Urobilinogen, <2.0 <2.0 [facility] UA OF PATHOLOGY AND GENOMIC MEDICINE Leukocyte Moderate (A) Negative [facility] DEPARTMENT esterase, UA OF PATHOLOGY AND GENOMIC MEDICINE Epithelial 3 /HPF [facility] DEPARTMENT cells, UA OF PATHOLOGY AND GENOMIC MEDICINE WBC, UA 85 (H) 0 - 4 /HPF [facility] DEPARTMENT OF PATHOLOGY AND GENOMIC MEDICINE RBC, UA 4 0 - 5 /HPF [facility] DEPARTMENT OF PATHOLOGY AND GENOMIC MEDICINE Bacteria, UA Few None seen [facility] DEPARTMENT OF PATHOLOGY AND GENOMIC MEDICINE Hyaline casts, >20 (A) /LPF [facility] UA OF PATHOLOGY AND GENOMIC MEDICINE Yeast, UA None seen [facility] DEPARTMENT OF PATHOLOGY AND GENOMIC MEDICINE Yeast with None seen [facility] DEPARTMENT pseudohyphae, OF PATHOLOGY UA AND GENOMIC MEDICINE Specimen Urine Performing Organization Address City/State/Zipcode Phone Number [facility] DEPARTMENT OF [address] [place] [address] PATHOLOGY AND GENOMIC MEDICINE * XR Abdomen 1 Vw Portable (01/31/2018 8:11 PM CDT) Specimen Narrative Performed At EXAMINATION:XR ABDOMEN 1 VW PORTABLE [facility] CLINICAL HISTORY:vomiting COMPARISON:None. IMPRESSION: Moderate amount retained stool in colon There is a nonspecific bowel gas pattern. No free air is identified. Gallbladder has been removed [facility]-[id number] Procedure Note Interface, Radiology Results Incoming - 01/31/2018 8:16 PM CDT EXAMINATION: XR ABDOMEN 1 VW PORTABLE CLINICAL HISTORY: vomiting COMPARISON: None. IMPRESSION: Moderate amount retained stool in colon There is a nonspecific bowel gas pattern. No free air is identified. Gallbladder has been removed [facility]-[id number] Performing Organization Address City/State/Zipcode Phone Number [facility] [address] [place] [address] * EEG (routine) (01/31/2018 1:55 PM CDT) [...] at 01/31/2018 12:04 PM who verbalized understanding. [facility]-[id number] Procedure Note Hm Interface, Radiology Results Incoming [...] at 01/31/2018 12:04 PM who verbalized understanding. [facility]-[id number] Performing Organization Address City/[facility]/[place] [address] * Arterial blood gas (01/31/2018 8:23 AM CDT) pH, arterial 7.40 7.35 - 7.45 [facility] DEPARTMENT OF PATHOLOGY AND GENOMIC MEDICINE pCO2, arterial 38 35 - 45 mmHg [facility] DEPARTMENT OF PATHOLOGY AND GENOMIC MEDICINE pO2, arterial 143 (H) 80 - 90 mmHg [facility] DEPARTMENT OF PATHOLOGY AND GENOMIC MEDICINE Bicarbonate, 22.6 21.0 - 28.0 mmol/L [facility] arterial OF PATHOLOGY AND GENOMIC MEDICINE Base excess, -1 -2 - 2 mEq/L [facility] arterial OF PATHOLOGY AND GENOMIC MEDICINE O2 saturation, 100 95 - 100 % [facility] arterial OF PATHOLOGY AND GENOMIC MEDICINE Specimen Blood Performing Organization Address City/[facility] [place] [address] PATHOLOGY AND GENOMIC MEDICINE * Manual differential (01/31/2018 8:22 AM CDT) Manual PERFORMED [facility] DEPARTMENT differential OF PATHOLOGY AND GENOMIC MEDICINE Neutrophils 90.0 (H) 39.0 - 69.0 % [facility] DEPARTMENT OF PATHOLOGY AND GENOMIC MEDICINE Lymphocytes 7.0 (L) 25.0 - 45.0 % [facility] DEPARTMENT OF PATHOLOGY AND GENOMIC MEDICINE Monocytes 1.0 0.0 - 10.0 % [facility] DEPARTMENT OF PATHOLOGY AND GENOMIC MEDICINE Eosinophils 2.0 0.0 - 5.0 % [facility] DEPARTMENT OF PATHOLOGY AND GENOMIC MEDICINE Basophils 0.0 0.0 - 1.0 % [facility] DEPARTMENT OF PATHOLOGY AND GENOMIC MEDICINE Metamyelocytes 0 % [facility] DEPARTMENT OF PATHOLOGY AND GENOMIC MEDICINE Promyelocytes 0 % [facility] DEPARTMENT OF PATHOLOGY AND GENOMIC MEDICINE Platelet slide Kenia slt decr [facility] DEPARTMENT review OF PATHOLOGY AND GENOMIC MEDICINE Anisocytosis Moderate [facility] DEPARTMENT OF PATHOLOGY AND GENOMIC MEDICINE Polychromasia Moderate [facility] DEPARTMENT OF PATHOLOGY AND GENOMIC MEDICINE Ovalocytes Moderate [facility] DEPARTMENT OF PATHOLOGY AND GENOMIC MEDICINE Enlarged Moderate (A) [facility] DEPARTMENT platelets OF PATHOLOGY AND GENOMIC MEDICINE Specimen Narrative Performed At [facility] and reab back to Ophelia Quevedo at 01/31/18 08:59 by [email or web address] [facility] DEPARTMENT OF PATHOLOGY AND GENOMIC MEDICINE Performing Organization Address City/[facility]/Zipcode Phone Number [facility] DEPARTMENT OF [address] [place] [address] PATHOLOGY AND GENOMIC MEDICINE * Lactic acid level (01/31/2018 8:22 AM CDT) Only the most recent of 2 results within the time period is included. Lactic acid 1.2 0.5 - 2.2 mmol/L [facility] DEPARTMENT OF PATHOLOGY AND GENOMIC MEDICINE Specimen Blood Performing Organization Address City/[facility]/Zipcode Phone Number [facility] DEPARTMENT OF [address] [place] [address] PATHOLOGY AND GENOMIC MEDICINE * EEG (routine) [...] 10:05 AM CDT) Specimen Narrative Performed At [facility] Echocardiography Report [address] [facility] [address] [address] Pat.Name:SONAM BERMEO Rosario.ID:[id number] .Date: 01/29/2018Refer.MD:REGINALD FIGUEROA MD Exam Time: 9:20:00 AMStudy Type:Routine Echo Height:63inWeight:148lb BSA: 1.7 s7MHGVco:1985,32Y Sex: FEMALEBP:140/97 HR:101 bpm Sonogrphr: Dale Issa RDCS Pat. Stat.:Inpatient Room:0 1003A Study Status:Final Echo Event ID:[id number] Order ID:[id number] Reason for Study:Stroke History / Clinical:Congestive Heart [...] RAPof 10 mmHg. MEASUREMENTS: 2D Parasternal Long [place] LVOT 1.9 cmLA Ds3.1 cm LVIDd4.9 cmIndex2.9 [...] 4.8 cm EF Biplane HR 103 bpm CAC232.4 ml CO 2.5 l/min SV49.1 ml WCL367.6 mlEF29.5 % DOPPLER LVOT Stroke Vol LVOT 1.9 cmLVOT CO3 l/min LVOT TVI10.4 cmLVOT CI1.8 l/m/m2 LVOT Tm254 msecHR 103 bpm LVOT SV 29.5 ml MA For Flow/Valve Assess MA TVI 141.6 cm Signed 01/30/2018 12:21 AM Santana Redding M.D. Procedure Note Interface, Radiology Results In - 01/30/2018 12:21 AM CDT Echocardiography Report [address] [place] [address] Pat.Name: SONAM BERMEO Pat.ID: [id number] .Date: 01/29/2018 Refer.MD: REGINALD FIGUEROA MD Exam Time: 9:20:00 AM Study Type:Routine Echo Height: 63in Weight: 148lb BSA: 1.7 m2 Age: 9 1985,32Y Sex: FEMALE BP: 140/97 HR: 101 bpm Sonogrphr: Dale Issa RDCS Pat. Stat.:Inpatient Room: [address] Study Status:Final Echo Event ID:[id number] Order ID: [id number] Reason for Study:Stroke History / Clinical:Congestive Heart [...] of 10 mmHg. MEASUREMENTS: 2D Parasternal Long [place] LVOT 1.9 cm LA Ds 3.1 cm [...] AM Santana Redding M.D. Performing Organization Address City/State/[facility] Mexicocode Phone Number [facility] [address] [place] [address] * CTA Neck W Wo Contrast (01/28/2018 [...] no significant carotid or vertebral artery stenosis. [facility]-[id number] Procedure Note Interface, Radiology Results Incoming - [...] no significant carotid or vertebral artery stenosis. [facility]-[id number] Performing Organization Address City/State/Zipcode Phone Number [facility] [address] [place] [address] * Lipid panel (01/28/2018 6:47 PM CDT) Cholesterol 117 <200 mg/dL [facility] DEPARTMENT OF PATHOLOGY AND GENOMIC MEDICINE Triglycerides 92 <150 mg/dL [facility] DEPARTMENT OF PATHOLOGY AND GENOMIC MEDICINE HDL cholesterol 50 >40 mg/dL [facility] DEPARTMENT OF PATHOLOGY AND GENOMIC MEDICINE LDL cholesterol 64Comment: Result obtained by <100 mg/dL [facility] DEPARTMENT direct LDL measurement OF PATHOLOGY AND GENOMIC MEDICINE Lipid panel SeeBelow [facility] DEPARTMENT interpretation Comment: OF PATHOLOGY Total Cholesterol [...] specimen Performing Organization Address City/State/Zipcode Phone Number [facility] DEPARTMENT OF [address] [place] [address] PATHOLOGY AND GENOMIC MEDICINE * CT Upper [...] humeral head suspicious for extension of osteomyelitis. [facility]-[id number] Procedure Note Hm Interface, Radiology Results Incoming [...] humeral head suspicious for extension of osteomyelitis. [facility]-[id number] Performing Organization Address City/State/Zipcode Phone Number [facility] [address] [place] [address] * CTA Head W Wo Contrast (01/28/2018 [...] aneurysmal dilatation or vascular malformation of the [place]. The major dural sinuses are opacified normally. There are no gross brain parenchymal abnormalities. There is no midline shift, hydrocephalus or extra-axial fluid collection. Soft tissue shows no evidence of laceration or hematoma. There is no air-fluid level in the sinuses. Osseous calvarium is intact. IMPRESSION: 1.No hemodynamically significant narrowing of the [place] vessels. [facility]-[id number] Procedure Note Interface, Radiology Results Incoming - [...] aneurysmal dilatation or vascular malformation of the [place]. The major dural sinuses are opacified normally. There are no gross brain parenchymal abnormalities. There is no midline shift, hydrocephalus or extra-axial fluid collection. Soft tissue shows no evidence of laceration or hematoma. There is no air-fluid level in the sinuses. Osseous calvarium is intact. IMPRESSION: 1. No hemodynamically significant narrowing of the [place] vessels. [facility]-[id number] Performing Organization Address City/State/Zipcode Phone Number [facility] [address] [place] [address] * CT Chest Wo Contrast (01/28/2018 4:55 PM CDT) Specimen Narrative Performed At [facility] CLINICAL HISTORY: sob [...] is enlarged. 5.Left proximal humeral fracture reidentified. [facility]-[id number] Procedure Note [facility], Radiology Results [facility] - 01/28/2018 5:13 PM CDT EXAMINATION: [...] enlarged. 5. Left proximal humeral fracture reidentified. [facility]-[id number] Performing Organization Address City/State/Zipcode Phone Number [facility] [address] [place] [address] * Keppra (Levetiracetam) level (01/28/2018 8:00 AM CDT) Pathologist [facility] Levetiracetam 16 12 - 46 ug/mL [facility] Comment: INTERPRETIVE INFORMATION: Keppra (Levetiracetam) Therapeutic Range:12-46 ug/mL Toxic: Not well Established Pharmacokinetics of levetiracetam are affected by renal function. Adverse effects may include somnolence, weakness, headache and vomiting. This levetiracetam (Keppra) immunoassay uses the LC [employer] reagents, which has known cross-reactivity with the drug brivaracetam (Briviact) and may report inaccurate results. Patients transitioning from levetiracetam to brivaracetam or those who are using both medications should not monitor drug concentrations with the [employer] assay. These patients should be monitored using a validated chromatographic methodology that distinguishes between drugs to determine drug concentrations. Performed by [facility], [address] [place] [id number] [email or web address], Boby Brito MD - Lab. Director Specimen Serum Performing Organization Address [facility] Phone Number [employer] [facility] [address] [place] [address] * Transfuse RBC (01/27/2018 9:20 PM CDT) Only the most recent of 5 results within the time period is included. * Hepatitis B surface antigen (01/27/2018 6:20 PM CDT) Only the most recent of 2 results within the time period is included. Pathologist [facility] Hepatitis B Non-reactive Non-reactive [facility] DEPARTMENT surface Ag OF PATHOLOGY AND GENOMIC MEDICINE Specimen Blood Performing Organization Address City/[facility]/Zipcode Phone Number [facility] DEPARTMENT OF [address] [place] [address] PATHOLOGY AND GENOMIC MEDICINE * Pv duplex venous upper extremity (01/27/2018 2:47 PM CDT) Only the most recent of 2 results within the time period is included. Specimen Narrative Performed At [facility] Upper Extremity Venous Report [address] [facility] [address], [place] [address] Pat.Name:SONAM BERMEO Pat.ID:[id number] .Date: 01/27/2018Refer.MD:REGINALD FIGUEROA MD Exam Time: 2:29:00 PMStudy Type:UE Venous DOBAge:1985,32Y Sex: FEMALE Sonogrphr: KATHY Robertson RCS Pat. Stat.:Inpatient Room:[place] [address] TapeVol: PATRICIA CPT - 4: 38317 Echo Event ID:[id number] Order ID:[id number] Reason for Study:Left arm swelling and pain, [...] [facility] Upper Extremity Venous Report [address] [place] [address] Pat.Name: SONAM BERMEO Pat.ID: [id number] .Date: 01/27/2018 Refer.MD: REGINALD FIGUEROA MD Exam Time: 2:29:00 PM Study Type:UE Venous Age: 9 1985,32Y Sex: FEMALE Sonogrphr: KATHY Robertson, NOEMY Pat. Stat.:Inpatient Room: [place] [address] Tape Vol: PATRICIA CPT - 4: 30554 Echo Event ID:[id number] Order ID: [id number] Reason for Study:Left arm swelling and pain, [...] RPVI Performing Organization Address City/State/Zipcode Phone Number [facility] [address] [place] [address] * Pv carotid duplex (01/27/2018 2:28 PM CDT) Specimen Narrative Performed At [facility] Vascular Ultrasound Laboratory Carotid Artery Duplex Report [address] [place] [address] For quality lab technician purposes, the categorization of the degree of the stenosis of this exam is based on criteria described in the IAC carotid stenosis grading white paper( www.intersocietal.org/Vascular) and Neli Kilgore., Yoan Cruz., et al. Carotid artery stenosis: murillo-scale and Doppler US diagnosis--Society of Radiologists in Ultrasound Consensus Conference. Radiology. 2003 Nov; 229(2):340-6. Pat.Name:SONAM BERMEO Rosario.ID:[id number] .Date: 01/27/2018Refer.MD:REGINALD FIGUEROA MD Exam Time: 2:12:00 PMStudy Type:Carotid DOBAge:1985,32Y Sex: FEMALE Sonogrphr: Nicholas Reynoso, KATHY, NOEMY Pat. Stat.:Inpatient Room:[place] [address] A TapeVol: PATRICIA, CPT - 4: 42372 Echo Event ID:[id number] Order ID:[id number] Reason for Study:Concern for clot, patient had [...] [facility] Ultrasound Laboratory Carotid Artery Duplex Report [address] [place] [address] For quality lab technician purposes, the categorization of the degree of the stenosis of this exam is based on criteria described in the IAC carotid stenosis grading white paper( www.intersocietal.org/Vascular) and Chan Kilgore, Sherif Cruz, et al. Carotid artery stenosis: murillo-scale and Doppler US diagnosis--Society of Radiologists in Ultrasound Consensus Conference. Radiology. 2003 Feb; 229(2):340-6. Pat.Name: SONAM BERMEO [facility].ID: [id number] .Date: 01/27/2018 Refer.MD: REGINALD FIGUEROA MD Exam Time: 2:12:00 PM Study Type:Carotid Age: 9 1985,32Y Sex: FEMALE Sonogrphr: KATHY Robertson RCS Pat. Stat.:Inpatient Room: [address] Vol: PATRICIA, CPT - 4: 00637 Echo Event ID:[id number] Order ID: [id number] Reason for Study:Concern for clot, patient had [...] Caleb Pulliam MD, RPVI Performing Organization Address [facility]/Zipcode Phone Number [facility] [address] [place] [address] * Lactic acid level, SEPSIS - Now and repeat 2x every 3 hours (01/27/2018 6:34 AM CDT) Only the most recent of 2 results within the time period is included. Lactic acid 1.8 0.5 - 2.2 mmol/L [facility] DEPARTMENT OF PATHOLOGY AND GENOMIC MEDICINE Specimen Blood Performing Organization Address City/[facility]/Zipcode Phone Number [facility] DEPARTMENT OF [address] [place] [address] PATHOLOGY AND GENOMIC MEDICINE * Prepare RBC, 1 Units (01/27/2018 3:44 AM CDT) Only the most recent of 2 results within the time period is included. Product name Red Blood Cells -1, Leukored [facility] DEPARTMENT OF PATHOLOGY AND GENOMIC MEDICINE Unit number [id number] [facility] DEPARTMENT OF PATHOLOGY AND GENOMIC MEDICINE Product code [id number] [facility] DEPARTMENT OF PATHOLOGY AND GENOMIC MEDICINE Dispense status Transfused [facility] DEPARTMENT OF PATHOLOGY AND GENOMIC MEDICINE Blood [id number] [facility] DEPARTMENT expiration date OF PATHOLOGY AND GENOMIC MEDICINE Blood type code 5100 [facility] DEPARTMENT OF PATHOLOGY AND GENOMIC MEDICINE Blood type O POSITIVE [facility] DEPARTMENT OF PATHOLOGY AND GENOMIC MEDICINE Specimen Performing Organization Address City/[facility]/Zipcode Phone Number [facility] DEPARTMENT OF [address] [place] [address] PATHOLOGY AND GENOMIC MEDICINE * Type and screen (01/27/2018 3:44 AM CDT) Only the most recent of 2 results within the time period is included. ABO grouping O [facility] DEPARTMENT OF PATHOLOGY AND GENOMIC MEDICINE Rh type POS [facility] DEPARTMENT OF PATHOLOGY AND GENOMIC MEDICINE Antibody screen NEG [facility] DEPARTMENT (gel) OF PATHOLOGY AND GENOMIC MEDICINE Specimen Blood Performing Organization Address City/[facility]/Zipcode Phone Number [facility] DEPARTMENT OF [address] [place] [address] PATHOLOGY AND GENOMIC MEDICINE * XR Abdomen [...] technique. Diffuse osteopenia. No acute osseous abnormalities. [facility] [facility]-[id number] Procedure Note Hm Interface, Radiology Results Incoming [...] technique. Diffuse osteopenia. No acute osseous abnormalities. [id number] Performing Organization Address City/State/Zipcode Phone Number [facility] [address] [place] [address] * Blood culture, aerobic & anaerobic (01/26/2018 12:50 AM CDT) Blood culture No growth after 5 days of [facility] DEPARTMENT isolate incubation. OF PATHOLOGY Comment: AND GENOMIC Specimen Information MEDICINE Specimen Source: Blood Specimen Site: Other Specimen Blood - Other- Detailed Description Required Performing Organization Address City/State/Zipcode Phone Number [facility] DEPARTMENT OF [address] [place] [address] PATHOLOGY AND GENOMIC MEDICINE * IR Tunneled Dialysis Catheter Replacement/Exchange (01/02/2018 9:37 AM CDT) Specimen Narrative Performed At Procedure: Change of tunneled dialysis catheter [facility] Clinical History: End-stage renal disease. The patient's indwelling catheter is not functioning. Sedation: Versed and fentanyl were utilized for monitored conscious sedation during the procedure. The patient was transferred to the recovery room at the end of the procedure for further monitoring. Tbff-sl-lfez time 15 minutes Anesthesia: Local Radiation dose: [...] above. Blood Loss: Less than 1 mL [facility]-[id number] Procedure Note Interface, Radiology Results Incoming - 01/02/2018 9:51 AM CDT Procedure: Change of tunneled dialysis catheter Clinical History: End-stage renal disease. The patient's indwelling catheter is not functioning. Sedation: Versed and fentanyl were utilized for monitored conscious sedation during the procedure. The patient was transferred to the recovery room at the end of the procedure for further monitoring. Yqyp-az-qunv time 15 minutes Anesthesia: Local Radiation dose: [...] above. Blood Loss: Less than 1 mL [facility]-[id number] Performing Organization Address City/[facility] Phone Number [facility] [address] [place] [address] * Vancomycin level, random (01/01/2018 4:38 AM CDT) Only the most recent of 2 results within the time period is included. Vancomycin, SEE COMMENT ug/mL [facility] DEPARTMENT random Comment: OF PATHOLOGY Footnote--------- AND GENOMIC Specimen integrity MEDICINE questionable.Recollect requested for VANCT.APPLE ISO/M3SW notified by KXG at01/01/201806:39 . Specimen Serum Performing Organization Address City/[facility] Phone Number [facility] DEPARTMENT OF [address] [phone] PATHOLOGY AND GENOMIC MEDICINE * Echocardiogram complete w contrast and 3D if needed (12/30/2017 9:36 AM CDT) Specimen Narrative Performed At [facility] Echocardiography Report [address] [address], [place] [address] Pat.Name:SONAM BERMEO Pat.ID:[id number] .Date: 12/30/2017 Refer.MD:JAYDEN JANSEN MD Exam Time: 9:20:00 AMStudy Type:Routine Echo Height:63inBSA: 1.73 m2 DOBAge:1985,32Y Sex: FEMALE BP:111/79HR: 103 bpm Sonogrphr: Aby Castro, RDCS, RVTPat. Stat.:[address] Status:Final Echo Event ID:[id number] Order ID:[id number] Reason for Study:CHF History / Clinical:Congestive Heart [...] RAPof 10 mmHg. MEASUREMENTS: 2D Parasternal Long [place] LVOT 1.8 cmIVSd 1 cm LA Ds4.4 cmLVPWd0.8 cm Ao Rtd 2.5 cmIndex1.5 cm/m LV Doyp896 g(87-129) LVIDd5.6 cmIndex3.2 cm/m LVM Ncpon104.4 g/m2 LVIDs5 cmRWT0.3 LV%fs 10.7 % LV EF Biplane AHRRD707.6 ml (59-136) Kmnoj318.8 ml/m LV SV 57.6 ml NFHBS380 hfQnamc34.5 ml/m LV EF 29 %(55-75) LA Sng [...] - 12/30/2017 2:42 PM CDT Echocardiography Report [address] [address] [facility].Name: SONAM BERMEO Rosario.ID: [id number] .Date: 12/30/2017 Refer.MD: JAYDEN JANSEN MD Exam Time: 9:20:00 AM Study Type:Routine Echo Height: 63in BSA: 1.73 m2 Age: 9 1985,32Y Sex: FEMALE BP: 111/79 HR: 103 bpm Sonogrphr: Aby Castro RDCS, RVT Pat. Stat.:Inpatient Room: [address] Study Status:Final Echo Event ID:[id number] Order ID: [id number] Reason for Study:CHF History / Clinical:Congestive Heart [...] of 10 mmHg. MEASUREMENTS: 2D Parasternal Long [place] LVOT 1.8 cm IVSd 1 cm LA [...] M.D. Performing Organization Address City/State/Zipcode Phone Number [facility] [address] [place] [address] * Pv duplex venous lower extremity (12/29/2017 2:10 PM CDT) Specimen Narrative Performed At [facility] Vascular Ultrasound Laboratory Lower Extremity Venous Report [address] [id number] Pat.Name:SONAM BERMEO Lili Pat.ID:[id number] .Date: 12/29/2017 Refer.MD:JAYDEN JANSEN MD Exam Time: 1:53:00 PMStudy Type:LE Venous Height:63inWeight:153lb BSA: 1.73 m2 DOBAge:1985,32Y Sex: FEMALESonogrphr: Hugo Bliss RN, S Pat. Stat.:Inpatient [facility] TapeVol: PM, CPT - 4: [address]121 Echo Event ID:[id number] Order ID:[id number] Reason for Study:Bilateral leg edema. Procedures:Colorflow, Grayscale/2D, [...] Ultrasound Laboratory Lower Extremity Venous Report [address] [address] Pat.Name: SONAM BERMEO Pat.ID: [id number] .Date: 12/29/2017 Refer.MD: JAYDEN JANSEN MD Exam Time: 1:53:00 PM Study Type:LE Venous Height: 63in Weight: 153lb BSA: 1.73 m2 Age: 9 1985,32Y Sex: FEMALE Sonogrphr: Hugo Bliss RN, RVS Pat. Stat.:Inpatient Room: [facility] Tape Vol: PM, CPT - 4: 81505 Echo Event ID:[id number] Order ID: [id number] Reason for Study:Bilateral leg edema. Procedures:Colorflow, Grayscale/2D, [...] Organization Address City/State/Zipcode Phone Number [facility] [address] [place] [address] * XR Shoulder 2+ Vw Left (12/28/2017 [...] Central venous catheter and transthoracic pacemaker present. [facility]-[id number] Procedure Note Interface, Radiology Results Incoming - [...] Central venous catheter and transthoracic pacemaker present. [facility]-[id number] Performing Organization Address [facility]/Zipcode Phone Number [facility] [address] [place] [address] * US Renal (12/28/2017 1:35 PM CDT) Specimen Narrative Performed At EXAMINATION:US RENAL [facility] CLINICAL HISTORY:hydroureter COMPARISON:06/04/2015 IMPRESSION: 1.There is no hydronephrosis. 2.Renal cortical echogenicity is increased suggesting medical renal disease. 3.Right kidney measures 10.2 x 4 x 3.8 cm. 4.Left kidney measures 11.3 x 4.5 x 4.8 cm. 5.Bladder is unremarkable. [facility]-[id number] Procedure Note Interface, Radiology Results Incoming - 12/28/2017 2:43 PM CDT EXAMINATION: US RENAL CLINICAL HISTORY: hydroureter COMPARISON: 06/04/2015 IMPRESSION: 1. There is no hydronephrosis. 2. Renal cortical echogenicity is increased suggesting medical renal disease. 3. Right kidney measures 10.2 x 4 x 3.8 cm. 4. Left kidney measures 11.3 x 4.5 x 4.8 cm. 5. Bladder is unremarkable. [facility]-[id number] Performing Organization Address City/[facility]/Zipcode Phone Number [facility] [address] [place] [address] * Hemoglobin A1c (12/28/2017 5:00 AM CDT) Hemoglobin A1C 6.8 (H) 4.0 - 5.6 % [facility] DEPART[facility] Comment: OF PATHOLOGY HbA1c cutoffs for [...] Blood Performing Organization Address City/State/Zipcode Phone Number [facility] DEPARTMENT OF [address] [place] [address] PATHOLOGY AND GENOMIC MEDICINE * CT Abdomen [...] shift/edema. Correlation to exclude colitis is advised. [facility]-[id number] Procedure Note Hm Interface, Radiology Results Incoming [...] shift/edema. Correlation to exclude colitis is advised. [facility]-[id number] Performing Organization Address City/State/Zipcode Phone Number [facility] [address] [place] [address] * Urinalysis screen and microscopy, with reflex to culture (12/28/2017 3:30 AM CDT) Specimen site Clean catch [facility] DEPARTMENT OF PATHOLOGY AND GENOMIC MEDICINE Color, UA Yellow [facility] DE[facility] OF PATHOLOGY AND GENOMIC MEDICINE Appearance, UA Hazy [facility] DE[facility] OF PATHOLOGY AND GENOMIC MEDICINE Specific 1.017 1.001 - 1.035 [facility] DE[facility] gravity, UA OF PATHOLOGY AND GENOMIC MEDICINE pH, UA 6.0 5.0 - 8.5 [facility] DEPARTMENT OF PATHOLOGY AND GENOMIC MEDICINE Protein, UA 3+ (A) Negative [facility] DEPARTMENT OF PATHOLOGY AND GENOMIC MEDICINE Glucose, UA Negative Negative [facility] DEPARTMENT OF PATHOLOGY AND GENOMIC MEDICINE Ketones, UA Negative Negative [facility] DEPARTMENT OF PATHOLOGY AND GENOMIC MEDICINE Bilirubin, UA Positive@UBIL (A) Negative [facility] DEPARTMENT OF PATHOLOGY AND GENOMIC MEDICINE Blood, UA Small (A) Negative [facility] DEPARTMENT OF PATHOLOGY AND GENOMIC MEDICINE Nitrite, UA Negative Negative [facility] DEPARTMENT OF PATHOLOGY AND GENOMIC MEDICINE Urobilinogen, <2.0 <2.0 [facility] DE[facility] UA OF PATHOLOGY AND GENOMIC MEDICINE Leukocyte Moderate (A) Negative [facility] DEPARTMENT esterase, UA OF PATHOLOGY AND GENOMIC MEDICINE Epithelial 1 /HPF [facility] DE[facility] cells, UA OF PATHOLOGY AND GENOMIC MEDICINE WBC, UA 129 (H) 0 - 4 /HPF [facility] DEPARTMENT OF PATHOLOGY AND GENOMIC MEDICINE RBC, UA 15 (H) 0 - 5 /HPF [facility] DEPARTMENT OF PATHOLOGY AND GENOMIC MEDICINE Bacteria, UA None seen None seen [facility] DEPARTMENT OF PATHOLOGY AND GENOMIC MEDICINE Yeast, UA Many (A) [facility] DEPARTMENT OF PATHOLOGY AND GENOMIC MEDICINE Yeast with None seen [facility] DEPARTMENT pseudohyphae, OF PATHOLOGY UA AND GENOMIC MEDICINE Hyaline casts, 18 /LPF [facility] UA OF PATHOLOGY AND GENOMIC MEDICINE Specimen Urine Performing Organization Address City/[facility]/Zipcode Phone Number [facility] DEPARTMENT OF [address] [place] [address] PATHOLOGY AND GENOMIC MEDICINE * Gram stain (12/28/2017 3:30 AM CDT) Gram stain Rare WBC's [facility] DEPARTMENT result Rare Budding yeast OF PATHOLOGY Comment: AND GENOMIC Specimen Information MEDICINE Specimen Source: Urine Specimen Site: Clean catch Specimen Urine Performing Organization Address City/[facility]/Zipcode Phone Number [facility] DEPARTMENT OF [address] [place] [address] PATHOLOGY AND GENOMIC MEDICINE * Urine culture (12/28/2017 3:30 AM CDT) Urine culture Marleen glabrata [facility] DEPARTMENT isolate >10-5 cfu/ml OF PATHOLOGY The performance AND GENOMIC characteristics of this assay MEDICINE on this isolate were validated by the Microbiology Laboratory at [facility].This source has not been approved by [...] Clean catch Urine culture Gram positive betsy [facility] DEPARTMENT isolate 10-2 cfu/ml OF PATHOLOGY (A) AND GENOMIC MEDICINE Specimen Urine Antibiotic Method Susceptibility Organism Micafungin BP 0.016 mcg/mL: Susceptible Marleen glabrata Amphotericin B BP 1 mcg/mL: Susceptible Marleen glabrata Posiconazole BP 1 mcg/mL Marleen glabrata Itraconazole BP 1.0 mcg/mL: Resistant Marleen glabrata Fluconazole BP 32 mcg/mL: Susceptible Marleen glabrata Performing Organization Address City/State/Zipcode Phone Number [facility] DEPARTMENT OF [address] [place] [address] PATHOLOGY AND GENOMIC MEDICINE after 10/17/2017 Insurance Type Payer Benefit Subscriber ID Effective Phone Address Plan / Dates Group O GRISEL RECINOS xxxxxxxxx [address]-[facility] [employer] [facility] Advance Directives Patient has advance care planning documents, and code status on file. For more i nformation, please contact: Pavel Roberts [address] [place] [id number] Date Inactivated Comments Code Status Date Activated 02/18/2018 8:23 PM Full Code 02/08/2018 4:32 PM Code Status decision reached by: Patient
--- OUTSIDE RECORDS SUMMARY | 2018-10-18 03:34 | XMS REPORT | Clinical Summary ---
Author Author KALYAN [facility] Address Unknown Phone Unavailable Care Team Providers Care Environmental Health Inspector Name Role Phone LonnyGer Jacqueline PCP Allergies [...] Active B complex Take 1 tablet 0 87-[id number]-Y-biot-zinc by mouth (DIALYVITE) [id number] daily. ch-og-cky-mg Tab 01/14/2019 Active phenytoin (DILANTIN) 100 Take [...] Surgeon PROCEDURE DONE OUTSIDE OR 01/09/2018 [facility] Ahmed, MD Bing Johnson, Angela Oliva MD Edema, unspecified type (Primary Dx); ESRD on hemodialysis (HCC); Postoperative wound infection, subsequent encounter; Chest pain, unspecified type; Chronic pain due to trauma; Surgical site infection 01/03/2018 Hospital Cardiology - Encounter 01/23/2018 01/03/2018 Orders Only General Internal Medicine after 10/17/2017 Social History Date Tobacco Use Types Packs/Day [...] ms QTC Calculatio n(Bazett) 452 ms P [place] 61 degrees R [place] 27 degrees T [place] 106 degrees Sinus tachycardi a Nonspecifi c [...] ms QTC Calculatio n(Bazett) 437 ms P [place] 53 degrees R [place] 0 degrees T [place] 174 degrees Sinus tachycardi a with Fusion [...] 12-LEAD STAT 01/03/2018 12:48 AM CDT after 10/17/2017 Results * ARRYTHMIA IMPLANT REPORT - SCAN (01/24/2018 1:40 PM CDT) Narrative Performed At * RHYTHM STRIP - SCAN (01/24/2018 1:40 PM CDT) Narrative Performed At * POC-Glucose meter (01/23/2018 9:24 AM CDT) Only the most recent of 67 results within the time period is included. POC-Glucose Meter 135 (H)Comment: TESTED AT 70 - 110 mg/dL [facility] [address] [facility] [address] Specimen Blood Performing Organization Address City/State/Zipcode Phone Number [place] [phone] [place] [address] [facility] * HEMODIALYSIS INPATIENT (01/22/2018 5:54 PM [...] (01/21/2018 6:41 AM CDT) Result No growth [facility] Gram Stain Result 4+ WBCs [facility] Gram Stain Result No organisms seen [facility] Specimen Wound Performing Organization Address City/State/Zipcode Phone Number [facility] [address] [place] [address] [facility] * IR Tunneled Catheter Insertion (01/20/2018 1:02 PM CDT) Only the most recent of 2 results within the time period is included. Specimen Narrative Performed At FINAL REPORT [facility] Tunneled dialysis catheter exchange, partial today History: Renal failure. Nonfunctioning hemodialysis catheter. Unable to aspirate from the right portal Modality: Sonography and fluoroscopy. Sedation: Versed 1.0 mg and fentanyl 50 mcg was given intravenously for conscious sedation.Vital signs were monitored throughout the procedure by a nurse, and remained stable. Physician intra-service time was 20 minutes. Junior Brand Manager:Kayla. Insulation Engineman: Nadia Inman MD. Approach: Right chest tunneled [...] new 19 cm cuff to tip 15.5 Gabonese Duraflow two catheter was then advanced over [...] Verified Date/Time:01/20/2018 17:29:46 Reading Location: [place] [address] Angio Body Reading Room Procedure Note Interface, [...] stable. Physician intra-service time was 20 minutes. Junior Brand Manager: Kayla. Insulation Engineman: Nadia Inman MD. Approach: Right chest tunneled [...] new 19 cm cuff to tip 15.5 Gabonese Duraflow two catheter was then advanced over [...] Date/Time: 01/20/2018 17:29:46 Reading Location: [place] [address] Angio Body Reading Room Performing Organization Address City/[facility]/Zipcode Phone Number [facility] * PT/aPTT (01/20/2018 5:26 AM CDT) Only the most recent of 5 results within the time period is included. Protime 17.8 (H) 11.7 - 14.7 seconds [facility] INR 1.5 <=5.9 [facility] PTT 36.8 (H) 22.5 - 36.0 seconds [facility] Specimen Blood Narrative Performed At RECOMMENDED COUMADIN/WARFARIN INR THERAPY RANGES [facility] STANDARD DOSE: 2.0 - 3.0 Includes: PROPHYLAXIS for venous thrombosis, [facility] systemic embolization; TREATMENT for venous thrombosis and/or pulmonary embolus. HIGH RISK: Target INR is 2.5-3.5 for patients with mechanical heart valves. Performing Organization Address City/[facility]/Zipcode Phone Number [facility] [address] [place] [address] [phone] [place] [address] * CBC with platelet count + automated diff (01/20/2018 5:26 AM CDT) Only the most recent of 16 results within the time period is included. WBC 4.6 3.5 - 10.5 K/L [facility] RBC 3.04 (L) 3.93 - 5.22 M/L [facility] Hemoglobin 8.4 (L) 11.2 - 15.7 GM/DL [facility] Hematocrit 28.9 (L) 34.1 - 44.9 % [facility] MCV 95.1 (H) 79.4 - 94.8 fL [facility] MCH 27.6 25.6 - 32.2 pg [facility] MCHC 29.1 (L) 32.2 - 35.5 GM/DL [facility] RDW 17.8 (H) 11.7 - 14.4 % [facility] Platelets 169 150 - 450 K/CU MM [facility] MPV 10.8 9.4 - 12.3 fL [facility] nRBC 0 0 - 0 /100 WBC [facility] % Neutros 77 % [facility] % Lymphs 16 % [facility] % Monos 3 % [facility] % Eos 2 % [facility] % Baso 1 % [facility] # Neutros 3.51 1.56 - 6.13 K/L [facility] # Lymphs 0.75 (L) 1.18 - 3.74 K/L [facility] # Monos 0.13 (L) 0.24 - 0.36 K/L [facility] # Eos 0.11 0.04 - 0.36 K/L [facility] # Baso 0.03 0.01 - 0.08 K/L [facility] Immature 1 0 - 1 % [facility] Granulocytes-Relative [facility] Specimen Blood Performing Organization Address City/[facility]/Zipcode Phone Number [address] * Vancomycin level, random (01/20/2018 5:26 AM CDT) Only the most recent of 4 results within the time period is included. Vancomycin Rm 19.5 ug/mL [facility] Specimen Blood Narrative Performed At Reference Range: No Normals [facility] Performing Organization Address [facility] Phone Number [address] * TRANSFUSION SERVICE REPORT - SCAN (01/18/2018 6:00 PM CDT) Only the most recent of 2 results within the time period is included. Narrative Performed At * Phosphorus (01/18/2018 9:35 AM CDT) Phosphorus 2.4 2.3 - 4.7 mg/dL [facility] Specimen Blood Performing Organization Address City/[facility] Phone Number [address] * Magnesium (01/18/2018 9:35 AM CDT) Only the most recent of 2 results within the time period is included. Magnesium 1.7 1.6 - 2.6 mg/dL [facility] Specimen Blood Performing Organization Address City/[facility]/Zipcode Phone Number [address] * Basic metabolic panel (01/18/2018 9:35 AM CDT) Only the most recent of 16 results within the time period is included. Sodium 135 (L) 136 - 145 meq/L [facility] Potassium 3.2 (L) 3.5 - 5.1 meq/L [facility] Chloride 99 98 - 107 meq/L [facility] CO2 29 22 - 29 meq/L [facility] BUN 13 7 - 21 mg/dL [facility] Creatinine 2.07 (H) 0.57 - 1.25 mg/dL [facility] Glucose 135 (H) 70 - 105 mg/dL [facility] Calcium 7.8 (L) 8.4 - 10.2 mg/dL [facility] EGFR 34Comment: ESTIMATED GFR IS mL/min/1.73 sq m [facility] NOT ACCURATE CREATININE [facility] CLEARANCE IN PREDICTING GLOMERULAR FILTRATION RATE. ESTIMATED GFR IS NOT APPLICABLE FOR DIALYSIS PATIENTS. Specimen Blood Performing Organization Address City/State/Zipcode Phone Number [facility] [address] [place] [address] [facility] * Prepare Leuko-Red & Irrad RBC (01/17/2018 11:54 PM CDT) CROSSMATCH COMPATIBLE SAFET[place]ACE TX Unit ABO O Pos SAFET[place] TX UNIT NUMBER [id number] [place] Status TRANSFUSED [place] [place] Blood Bank Product RED BLOOD CELLS [place] PRODUCT CODE [id number] [place] Specimen Other Performing Organization Address City/State/Zipcode Phone Number [place] * CT upper extremity with contrast right (01/17/2018 9:24 PM CDT) Specimen Narrative Performed At FINAL REPORT [employer] CT, EXTREMITY, UPPER, WITH CONTRAST, RIGHT, CT, [...] MD Report Verified Date/Time:01/17/2018 22:06:08 Reading Location: [facility] [id number] Transitional Reading Room Procedure Note Interface, External [...] Report Verified Date/Time: 01/17/2018 22:06:08 Reading Location: [facility] B1 C013T Transitional Reading Room Performing Organization Address City/State/Zipcode Phone Number [employer] * CT upper extremity with contrast left (01/17/2018 9:24 PM CDT) Specimen Narrative Performed At FINAL REPORT [employer] CT, EXTREMITY, UPPER, WITH CONTRAST, RIGHT, CT, [...] MD Report Verified Date/Time:01/17/2018 22:06:08 Reading Location: [address] Transitional Reading Room Procedure Note Interface, [...] Report Verified Date/Time: 01/17/2018 22:06:08 Reading Location: [address] Transitional Reading Room Performing Organization Address City/State/Zipcode Phone Number [employer] * CT chest without IV contrast (01/16/2018 11:42 PM CDT) Specimen Narrative Performed At FINAL REPORT [employer] CT, CHEST, WITHOUT CONTRAST INDICATION: Chest pain [...] MD Report Verified Date/Time:01/16/2018 23:55:03 Reading Location: [address] Reading Room Procedure Note Interface, External [...] Report Verified Date/Time: 01/16/2018 23:55:03 Reading Location: [address] Reading Room Performing Organization Address City/[facility] Phone Number [facility] * Transfuse Leuko-Red & Irrad RBC (01/16/2018 3:05 PM CDT) Only the most recent of 2 results within the time period is included. * Type and screen, automated (01/16/2018 12:17 PM CDT) ABO/RH AUTOMATED (BEAKER) O POSITIVE [facility] Ab Scrn NEGATIVE [facility] Specimen Blood Performing Organization Address [facility] Phone Number [facility] [address] [place] [address] MEDICAL CENTER * CBC (Hemogram only) (01/16/2018 4:01 AM CDT) WBC 3.7 3.5 - 10.5 K/L [facility] RBC 2.49 (L) 3.93 - 5.22 M/L [facility] Hemoglobin 6.9 (L) 11.2 - 15.7 GM/DL [facility] Hematocrit 24.0 (L) 34.1 - 44.9 % [facility] MCV 96.4 (H) 79.4 - 94.8 fL [facility] MCH 27.7 25.6 - 32.2 pg [facility] MCHC 28.8 (L) 32.2 - 35.5 GM/DL [facility] RDW 18.7 (H) 11.7 - 14.4 % [facility] Platelets 152 150 - 450 K/CU MM [facility] MPV 10.8 9.4 - 12.3 fL [facility] nRBC 0 0 - 0 /100 WBC [facility] Specimen Blood Performing Organization Address City/State/Zipcode Phone Number [facility] [address] [place] [address] MEDICAL CENTER * XR chest [...] MD Report Verified Date/Time:01/14/2018 22:17:24 Reading Location: [facility] Reading Room Procedure Note Interface, External Ris [...] Report Verified Date/Time: 01/14/2018 22:17:24 Reading Location: [facility] Reading Room Performing Organization Address City/State/Zipcode Phone Number [facility] * Clostridium difficile [facility] Toxin (01/14/2018 2:05 AM CDT) C. Difficle Toxin Negative Negative [facility] C. Difficile [facility] Antigen Positive (A)Comment: C. Negative [facility] difficile present but toxin [facility] not detected. Indicates colonization with non-toxigenic strain or level of toxin below detectable levels. No need for enteric isolation. Treatment is rarely needed (only when strong clinical suspicion for Clostridium difficile infection) Specimen Stool Narrative Performed At Testing performed by [employer] Rapid Cassette Assay.For [facility], published [facility] sensitivity of the assay is 98.7% compared to cytotoxicity testing.For Toxin [facility] AB, published sensitivity is 87.8% and specificity 99.4% compared to cytotoxicity testing. Verification of kit performance was done by the [facility] Microbiology Lab prior to clinical use. Performing Organization Address City/[facility]/Zipcode Phone Number [facility] [address] [place] [address] [facility] * HEMODIALYSIS INPATIENT (01/13/2018 12:44 PM [...] CDT) TSH 3.42 0.35 - 4.94 uIU/mL [facility] Specimen Blood Performing Organization Address City/[facility]/Zipcode Phone Number [facility] [address] [place] [address] [facility] * CT brain without IV contrast (01/11/2018 12:53 PM CDT) Specimen Narrative Performed At FINAL REPORT [employer] CT head without contrast 01/11/2018 1:34 PM [...] MD Report Verified Date/Time:01/11/2018 13:35:22 Reading Location: [facility] B1 C013X Ortho Consult Reading Room Procedure [...] Report Verified Date/Time: 01/11/2018 13:35:22 Reading Location: [facility] B1 C013X Ortho Consult Reading Room Performing Organization Address City/State/Zipcode Phone Number [facility] * Hemoglobin and hematocrit (01/10/2018 6:15 PM CDT) Hemoglobin 8.4 (L) 11.2 - 15.7 GM/DL [facility] Hematocrit 28.5 (L) 34.1 - 44.9 % [facility] Specimen Blood Performing Organization Address City/[facility] Phone Number [facility] [address] [place] [address] [facility] * Vancomycin level, trough (01/10/2018 3:09 PM CDT) Vancomycin Tr 12.4 10.0 - 20.0 ug/mL [facility] Specimen Blood Narrative Performed At Send after dialysis please [facility] Performing Organization Address [facility] Phone Number [facility] [address] [place] [address] [facility] * ECG 12 lead (01/10/2018 7:31 AM CDT) Only the most recent of 2 results within the time period is included. Specimen Narrative Performed At Ventricular Rate 123 BPM GE MUSE Atrial Rate 123 BPM P-R Interval 164 ms QRS Duration 88 ms Q-T Interval 316 ms QTC Calculation(Bazett) 452 ms P [place] 61 degrees R [place] 27 degrees T [place] 106 degrees Sinus tachycardia Nonspecific T wave [...] 316 ms QTC Calculation(Bazett) 452 ms P [place] 61 degrees R [place] 27 degrees T [place] 106 degrees Sinus tachycardia Nonspecific T wave abnormality Prolonged QT Abnormal ECG When compared with ECG of 03-JAN-2018 00:48, Fusion complexes are no longer Present Confirmed by Charlene KELLOGG BASANT ([id number]) on 01/12/2018 8:44:48 PM Performing Organization Address City/[facility] Phone Number [employer] * XR chest 1 view portable / bedside (01/10/2018 5:28 AM CDT) Only the most recent of 2 results within the time period is included. Specimen Narrative Performed At FINAL REPORT [employer] Chest one view. Clinical history: SOB post [...] MD Report Verified Date/Time:01/10/2018 06:32:36 Reading Location: [address] Body Reading Room Procedure Note [...] Report Verified Date/Time: 01/10/2018 06:32:36 Reading Location: [facility] C0[facility] CT Body Reading Room Performing Organization Address City/[facility] Phone Number [facility] * C-Reactive Protein (01/10/2018 4:34 AM CDT) Only the most recent of 2 results within the time period is included. CRP 2.35 (H) 0.00 - 0.50 mg/dL [facility] Specimen Blood Performing Organization Address City/State/Zipcode Phone Number [facility] [address] [place], [place] [address] [facility] * Lactic acid, venous, whole blood (01/10/2018 4:23 AM CDT) Lactate, Venous 2.7 (H) 0.5 - 2.2 mmol/L [facility] Specimen Blood Narrative Performed At Effective 08/17/2015: Units/Reference Range Change [facility] New: 0.5-2.2 mmol/LPrevious: 5-20 mg/dL [facility] Performing Organization Address City/[facility]/Zipcode Phone Number [facility] [address] [place] [address] [facility] * IR Tunneled Catheter Exchange (01/09/2018 5:40 [...] MD Report Verified Date/Time:01/09/2018 19:06:03 Reading Location: [place] [address] Angio Body Reading Room Procedure Note Interface, [...] Report Verified Date/Time: 01/09/2018 19:06:03 Reading Location: [facility] P048 Angio Body Reading Room Performing Organization Address City/State/Zipcode Phone Number [facility] * hCG, quantitative, (01/09/2018 4:08 AM CDT) hCG Quant <1 0 - 10 mIU/mL [facility] Specimen Blood Narrative Performed At Non- Females: <10 mIU/mL [facility] Females: [facility] Gestation AgeReference Range(mIU/mL) 0.2-1 Week5-50 1-2 Odobc62-160 2-3 Weeks 100-5,000 3-4 Weeks 500-10,000 4-5 Weeks 1,000-50,000 5-6 Weeks10,000-100,000 6-8 Weeks15,000-200,000 2-3 Months 10,000-100,000 Performing Organization Address City/[facility]/[place] [address] MEDICAL CENTER * PERMANENT LAB REPORT - SCAN (01/07/2018 11:13 AM CDT) Narrative Performed At * Immunofixation electrophoresis (TONYA) (01/06/2018 4:08 PM CDT) IgG 3,413 (H) 540 - 1,822 mg/dL [facility] IgA 483 63 - 484 mg/dL [facility] IgM 130 22 - 293 mg/dL [facility] Serum TONYA Identification No monoclonal bands detected. [facility] Polyclonal distribution of [facility] immunoglobulins. Pathologist: Belkis Styles MD [facility] (electronic signature) [facility] Specimen Blood Performing Organization Address City/State/Zipcode Phone Number [facility] [address] [place] [address] [facility] * Protein electrophoresis, serum (01/06/2018 4:08 PM CDT) Albumin Fraction 2.6 (L) 3.5 - 5.5 g/dL [facility] Alpha 1 Fraction 0.3 0.2 - 0.4 g/dL [facility] Alpha 2 Fraction 0.8 0.5 - 0.9 g/dL [facility] Beta Fraction 1.0 0.6 - 1.1 g/dL [facility] Gamma Globulin Fraction 3.2 (H) 0.7 - 1.7 g/dL [facility] Interpretation Decreased albumin consistent [facility] with renal protein loss. [facility] Polyclonal elevation of gamma fraction, which may be seen with chronic inflammation and/or recent administration of IVIG. Serum TONYA ordered to exclude presence of small monoclonal protein underlying. Pathologist: Belkis Styles MD [facility] (electronic signature) [facility] Protein, Total 7.8 6.0 - 8.3 gm/dL [facility] Specimen Blood Performing Organization Address City/[facility]/Zipcode Phone Number [facility] [address] [place] [address] [facility] * PTH, intact (01/06/2018 4:08 PM CDT) PTH 80.1 (H) 8.5 - 72.5 pg/mL [facility] Specimen Blood Performing Organization Address City/[facility]/Zipcode Phone Number [facility] [address] [place] [address] MEDICAL [facility]ENTER * Lactate dehydrogenase (LDH) (01/06/2018 4:08 PM CDT) LDH 171 125 - 220 U/L [facility] Specimen Blood Performing Organization Address City/State/Zipcode Phone Number [facility] [address] [place] [address] MEDICAL CENTER * XR shoulder [...] MD Report Verified Date/Time:01/05/2018 10:47:29 Reading Location: [address] Transitional Reading Room Procedure Note Interface, [...] Report Verified Date/Time: 01/05/2018 10:47:29 Reading Location: [address] Transitional Reading Room Performing Organization Address City/State/Zipcode Phone Number [facility] * XR elbow 3 views min left (01/05/2018 10:00 AM CDT) Specimen Narrative Performed At FINAL REPORT [facility] LEFT ELBOW 3 VIEWS HISTORY: Left elbow [...] MD Report Verified Date/Time:01/05/2018 10:51:25 Reading Location: [address] Transitional Reading Room Procedure Note Interface, [...] Report Verified Date/Time: 01/05/2018 10:51:25 Reading Location: [address] Transitional Reading Room Performing Organization Address [facility] Phone Number [facility] * XR humerus 2 views left (01/05/2018 10:00 AM CDT) Specimen Narrative Performed At FINAL REPORT [facility] LEFT HUMERUS 2 VIEWS HISTORY: Left arm [...] MD Report Verified Date/Time:01/05/2018 10:55:40 Reading Location: [address] Transitional Reading Room Procedure Note Interface, [...] Report Verified Date/Time: 01/05/2018 10:55:40 Reading Location: [address] Transitional Reading Room Performing Organization Address [facility] [place] [place] RIS * HEMODIALYSIS INPATIENT (01/03/2018 [...] CDT) hepatitis B Surface Ag Nonreactive Nonreactive [facility] Specimen Blood Performing Organization Address City/[facility]/Zipcode Phone Number [address] * Hemoglobin A1c (01/03/2018 9:16 AM CDT) Hemoglobin A1C 6.0 4.3 - 6.1 % [facility] Specimen Blood Performing Organization Address City/[facility]/Zipcode Phone Number [address] * ED ECG Interpretation (01/03/2018 6:35 AM CDT) Narrative Performed At Meghan Montiel MD 01/03/20186:35 AM ECG/EKG Interpretation Date/Time: 01/03/2018 5:09 AM Performed by: MEGHAN MONTIEL Authorized by: MEGHAN MONTIEL The ECG was interpreted by ED physician. The ECG is interpreted as sinus rhythm. Rate is tachycardic. [place] is normal. Clinical Impression: non-specific ECGECG reviewed and does not meet STEMI criteria. Patient tolerance: Patient tolerated the procedure well with no immediate complications * Urinalysis w/ Microscopic (01/03/2018 4:24 AM CDT) Color, UA Yellow [facility] Clarity, UA Hazy [facility] Specific [place], UA 1.016 1.001 - 1.035 [facility] pH, UA 6.0 5.0 - 8.0 [facility] Protein, UA 300 mg/dL (A) Negative [facility] Glucose, UA Negative Negative [facility] Ketones, UA Negative Negative [facility] Bilirubin, UA Negative Negative [facility] Blood, UA Moderate (A) Negative [facility] Nitrite, UA Negative Negative [facility] Leukocytes, UA Large (A) Negative [facility] Urobilinogen, UA 0.2 0.2 - 1.0 mg/dL [facility] RBC, UA 104 /HPF [facility] WBC, UA 57 /HPF [facility] Bacteria, UA Few [facility] Hyaline Casts, UA 27 /LPF [facility] Granular Casts, UA 4 /LPF [facility] Amorphous Crystals Occasional [facility] Specimen Source Urine, Straight Catheter [facility] Specimen Urine - Urine, Straight Catheter Performing Organization Address City/[facility] Phone Number [facility] [address] [place] [address] MEDICAL CENTER * Troponin I (01/03/2018 1:09 AM CDT) Troponin I 0.02 0.00 - 0.03 ng/mL [facility] Specimen Blood Narrative Performed At Troponin I (TnI) levels must be interpreted in the context of the presenting [facility] symptoms and the clinical findings. Elevated TnI levels indicate myocardial [facility] damage, but are not specific for ischemic heart disease. Elevated TnI levels are seen in patients with other cardiac conditions (including myocarditis and congestive heart failure), and slight TnI elevations occur in patients with other conditions, including sepsis, renal failure, acidosis, acute neurological disease, and persistent tachyarrhythmia. Performing Organization Address City/[facility] [place] [address] [phone] * B-type natriuretic peptide (01/03/2018 1:09 AM CDT) BNP 3,706 (H) 0 - 100 pg/mL [facility] Specimen Blood Performing Organization Address City/[facility] Phone Number [place] [phone] * Lipase (01/03/2018 1:09 AM CDT) Lipase 7 (L) 8 - 78 U/L [facility] Specimen Blood Performing Organization Address [facility] Phone Number [place] [phone] * Amylase (01/03/2018 1:09 AM CDT) Amylase 47 25 - 125 U/L [facility] Specimen Blood Performing Organization Address [facility] Phone Number [place] [phone] * Hepatic function panel (01/03/2018 1:09 AM CDT) Protein, Total 7.9 6.0 - 8.3 gm/dL [facility] Albumin 2.4 (L) 3.5 - 5.0 g/dL [facility] Total Bilirubin 0.5 0.2 - 1.2 mg/dL [facility] Bilirubin, Direct 0.3 0.1 - 0.5 mg/dL [facility] Alkaline Phosphatase 133 40 - 150 U/L [facility] AST 7 5 - 34 U/L [facility] ALT 6 6 - 55 U/L [facility] Specimen Blood Performing Organization Address [facility] Phone Number [address] [phone] MEDICAL CENTER after 10/17/2017 Insurance Payer Benefit Subscriber ID Type Phone Address Plan / Group [employer] MEDICAID MEDICAID xxxxxxxxx [place] MED[place]ID - MEDICAID MGD MEDICAID xxxxxxxxx Medicaid CARE [place] Non-Contra NONCONTRAC cted EMILY Advance Directives For more information, please contact: [facility] [address], [place] [id number] Date Inactivated Comments Code Status Date Activated 01/23/2018 6:21 PM Full Code 01/03/2018 7:16 AM This code status was determined by: Patient
[2018-10-18] MEDS ORDERED: PROMETHAZINE 25MG/ NS 50ML (IV) IV STA (03:59)
[2018-10-18] MEDS ORDERED: LORAZEPAM INJ 2 MG/ML VIAL IV STA ×2 (03:59→05:16)
[2018-10-18] MEDS ORDERED: LORAZEPAM INJ 2 MG/ML VIAL ONE ×2 (04:26→05:23)
[2018-10-18] MEDS ORDERED: PROMETHAZINE HCL (IM) 25 MG/ML VIAL ONE (04:26)
[2018-10-18] MEDS ORDERED: SODIUM CHLORIDE 0.9% 50ML 50 ML ONE (04:27)
[2018-10-18] MEDS ORDERED: DIPHENHYDRAMINE HCL INJ 50 MG/ML VIAL IV STA ×2 (04:37→05:16)
[2018-10-18] MEDS ORDERED: DIPHENHYDRAMINE HCL INJ 50 MG/ML VIAL ONE (04:57)
--- NOTE | 2018-10-18 05:13 | Diagnostic Imaging Report ---
EXAMINATION: CXR 2 VIEW - HOPD INDICATION: Panic attack, nausea, vomiting, diarrhea, lower abdominal pain ^[id number] ^[id number] COMPARISON: Chest x-ray 02/27/2018 FINDINGS: PA and lateral views TUBES and LINES: MediPort catheter terminates at the cavoatrial junction. Dual lumen central venous catheter terminates in the cavoatrial junction. Epicardial defibrillator in the anterior chest. LUNGS: Lungs are well inflated. Faint groundglass opacities in the mid and lower lung zones. Pulmonary arteries are prominent. PLEURA: There is fluid outlining the major fissures. Trace blunting of the costophrenic angles. HEART AND MEDIASTINUM: The heart is enlarged. BONES AND SOFT TISSUES: No focal osseous lesions. Soft tissues are unremarkable. UPPER ABDOMEN: No free air under the diaphragm. Cholecystectomy clips. IMPRESSION: Faint opacities in the middle and lower lung zones suggestive of mild pulmonary edema. Small pleural effusions. Stable cardiomegaly and pulmonary artery enlargement. Signed by: Dr. Ana M De Paz MD on 10/18/2018 5:09 AM
--- NOTE | 2018-10-18 05:23 | Diagnostic Imaging Report ---
CT Abdomen and Pelvis without contrast INDICATION: Panic attack, nausea, vomiting, diarrhea, lower abdominal pain TECHNIQUE: Thin collimation axial images obtained from the diaphragm to the level of the pubic symphysis without nonionic intravenous contrast. Dose reduction techniques used: Automated exposure control, adjustment of the mAs and/or kVp according to patient size, standardized low-dose protocol, and/or iterative reconstruction technique. RADIATION DOSE: Total DLP: 348.1 mGy*cm Estimated effective dose: (DLP x 0.015 x size factor) mSv CTDIvol has been reviewed. It is below the limits set by the Radiation Protocol Committee (RPC). COMPARISON: CT abdomen/pelvis 09/11/2017. ABDOMEN FINDINGS: Lung Bases: Faint groundglass opacities in the lower lung zones. Centrilobular nodular densities are no longer visualized. The heart is enlarged. Central venous catheters at the cavoatrial junction. Defibrillator in the anterior chest wall. Liver: The right lobe measures 21 cm in length. The attenuation is normal. No mass. Gallbladder: Absent. No ductal dilatation. Pancreas: Normal attenuation without mass. Spleen: Normal size without mass. Adrenal Glands: No evidence for mass. Kidneys: Right: Atrophic. No cortical mass or hydronephrosis Left: Atrophic. No cortical mass or hydronephrosis Lymph Nodes: No lymphadenopathy. Aorta: Normal in diameter. There are scattered calcifications in the SMA PELVIS FINDINGS: Bowel: Stomach: Normal. Small Bowel: Normal in caliber with normal wall thickness. Large Bowel: Semisolid stool throughout the large bowel. No focal mural thickening or pericolonic inflammation. Appendix: Not visualized. Bladder: Under distended. Ureters: No ureteral dilatation. The uterus is present. There are calcifications the parametrial vasculature. No adnexal mass. Peritoneum/retroperitoneum: No free fluid or fluid collection. Bones: Increased attenuation of the skeleton consistent with renal osteodystrophy. No focal osseous lesions. Soft tissues: Mild subcutaneous edema. IMPRESSION: 1. No evidence for bowel obstruction or inflammation. Semisolid stool throughout the colon. Nonvisualization of the appendix. 2. Hepatomegaly. 3. Findings of end-stage renal disease with groundglass airspace opacities in the lungs suggestive of chronic pulmonary edema. Signed by: Dr. Ana M De Paz MD on 10/18/2018 5:20 AM
== END 2018-10-18 06:05 | disposition left against medical advice (07) ==
LOC: FSED 03:24
DX: R10.84 Generalized abdominal pain (principal); R11.2 Nausea with vomiting, unspecified; D62 Acute posthemorrhagic anemia
CPT/HCPCS: 71046; 74176; 80053; 85025; 85610; 93005; 99284; J1200; J2060; J2550

== ENCOUNTER 2018-10-20 00:58 | Emergency (ER) | payer OTHER ==
[~2018-10-20] VITALS: Ht 160 cm; Wt 56.2 kg
--- OUTSIDE RECORDS SUMMARY | 2018-10-20 01:05 | XMS REPORT | Clinical Summary ---
Author Author [facility] Address Unknown Phone Unavailable Care Team Providers Care Steam And Power Supervisor Name Role Phone Ger Mukherjee MD PCP [...] 1,000 1 each 0 IVPB 1 gram ADD-Poplar mg into a 8 in 100 mLIndications: [...] Elevated brain natriuretic peptide (BNP) level 01/26/2018 [facility] General Internal Medicine - Encounter 02/18/2018 Roge Pederson NP-C Chronic systolic heart failure (Primary Dx) 01/02/2018 Orders Only Transplant Vaurn Clark MD Zindani, Shireen, MD Tachycardia (Primary Dx); Generalized abdominal pain; Nausea vomiting and diarrhea; Chest pain, unspecified type; Shortness of breath; Chronic systolic congestive heart failure; Chronic hypertension; Type 2 diabetes mellitus with other specified complication, without long-term current use of insulin; Hypoglycemia; Hypokalemia; Chronic kidney disease, unspecified CKD stage; Leg swelling; Anxiety 12/27/2017 [facility] General Internal Medicine - Encounter 01/03/2018 after 10/19/2017 Immunizations Name Dates Previously Given Next Due [...] Taken Vital Sign Reading 02/20/2018 2:16 AM MILK INSPECTOR Blood Pressure 130/73 02/20/2018 2:16 AM MILK INSPECTOR Pulse 97 02/19/2018 8:39 PM MILK INSPECTOR Temperature 36.5 C (97.7 F) 02/20/2018 2:16 AM MILK INSPECTOR Respiratory Rate 18 02/20/2018 2:16 AM MILK INSPECTOR Oxygen Saturation 98% - Inhaled Oxygen - Concentration 01/31/2018 11:01 AM CDT Weight 67.5 kg (148 lb 14.4 oz) 02/19/2018 8:52 PM MILK INSPECTOR Height 160 cm (5' 3") 12/28/2017 5:56 [...] Leads Defibrilla tors & Leads 10/12/2020 [place] [id number] IM / / [id number] Set Cathztn Hmodial Lngtrm Accs Surgical N/A: N/A ARROW 15fr 24cm Edge Simplicity - Implants; [employer] [id number] Expanders; [employer] Implanted: 01/02/2018 (Quantity not Extenders; on file) Surgical Wires Procedures Comments Procedure Name Priority Date/Time Associated Diagnosis CT LUMBAR SPINE WO STAT 02/20/2018 CONTRAST 1:[address] HEAD WO CONTRAST STAT 02/20/2018 12:56 AM MILK INSPECTOR XR CHEST 1 VW PORTABLE STAT 02/20/2018 12:02 AM MILK INSPECTOR HCG QUALITATIVE, SERUM STAT 02/19/2018 SCREEN 11:45 PM MILK INSPECTOR PROTHROMBIN TIME WITH INR STAT 02/19/2018 10:39 PM MILK INSPECTOR PARTIAL THROMBOPLASTIN STAT 02/19/2018 TIME (PTT) 10:39 PM MILK INSPECTOR CREATINE KINASE, TOTAL STAT 02/19/2018 (CPK) 10:39 PM MILK INSPECTOR ESTIMATED GFR STAT 02/19/2018 10:39 PM MILK INSPECTOR B NATRIURETIC PEPTIDE STAT 02/19/2018 10:39 PM MILK INSPECTOR TROPONIN STAT 02/19/2018 10:39 PM MILK INSPECTOR BETA HYDROXYBUTYRATE STAT 02/19/2018 10:39 PM MILK INSPECTOR COMPREHENSIVE METABOLIC STAT 02/19/2018 PANEL 10:39 PM MILK INSPECTOR HC COMPLETE BLD COUNT STAT 02/19/2018 W/AUTO DIFF 10:39 PM MILK INSPECTOR ECG ED PRELIMINARY Routine 02/19/2018 INTERPRETATION 9:56 PM MILK INSPECTOR POC GLUCOSE Routine 02/19/2018 9:36 PM MILK INSPECTOR ECG 12-LEAD STAT 02/19/2018 9:07 PM MILK INSPECTOR POC GLUCOSE Routine 02/18/2018 1:46 PM MILK INSPECTOR POC GLUCOSE Routine 02/18/2018 12:19 PM MILK INSPECTOR POC GLUCOSE Routine 02/18/2018 7:44 AM MILK INSPECTOR POC GLUCOSE Routine 02/18/2018 7:03 AM MILK INSPECTOR POC GLUCOSE Routine 02/18/2018 1:28 AM MILK INSPECTOR POC GLUCOSE Routine 02/17/2018 9:13 PM MILK INSPECTOR POC GLUCOSE Routine 02/17/2018 5:37 PM MILK INSPECTOR ULTRAFILTRATION Routine 02/17/2018 5:07 PM MILK INSPECTOR POC GLUCOSE Routine 02/17/2018 3:38 PM MILK INSPECTOR POC GLUCOSE Routine 02/17/2018 1:24 PM MILK INSPECTOR POC GLUCOSE Routine 02/17/2018 12:14 PM MILK INSPECTOR POC GLUCOSE Routine 02/17/2018 9:43 AM MILK INSPECTOR POC GLUCOSE Routine 02/17/2018 8:01 AM MILK INSPECTOR SMEAR REVIEW Routine 02/17/2018 4:30 AM MILK INSPECTOR HC COMPLETE BLD COUNT Routine 02/17/2018 W/AUTO DIFF 4:30 AM MILK INSPECTOR POC GLUCOSE Routine 02/17/2018 4:14 AM MILK INSPECTOR ESTIMATED GFR Routine 02/17/2018 4:00 AM MILK INSPECTOR BASIC METABOLIC PANEL Routine 02/17/2018 4:00 AM MILK INSPECTOR POC GLUCOSE Routine 02/16/2018 11:06 PM MILK INSPECTOR POC GLUCOSE Routine 02/16/2018 8:45 PM MILK INSPECTOR POC GLUCOSE Routine 02/16/2018 6:20 PM MILK INSPECTOR POC GLUCOSE Routine 02/16/2018 5:35 PM MILK INSPECTOR HEMODIALYSIS Routine 02/16/2018 2:21 PM MILK INSPECTOR POC GLUCOSE Routine 02/16/2018 1:37 PM MILK INSPECTOR POC GLUCOSE Routine 02/16/2018 12:29 PM MILK INSPECTOR POC GLUCOSE Routine 02/16/2018 7:57 AM MILK INSPECTOR POC GLUCOSE Routine 02/15/2018 9:54 PM CDT [...] CDT ECHOCARDIOGRAM WITH Routine 01/29/2018 AGITATED SALINE (25330) 10:05 AM CDT POC GLUCOSE Routine 01/29/2018 [...] MMODE SPECTRAL 9:36 AM CDT COLOR DOPPLER (28097) POC GLUCOSE Routine 12/30/2017 7:43 AM CDT [...] 12-LEAD STAT 12/27/2017 9:43 PM CDT after 10/19/2017 Results * CT Lumbar Spine Wo Contrast (02/20/2018 1:01 AM MILK INSPECTOR) Specimen Narrative Performed At EXAMINATION: CT LUMBAR [...] acute osseous abnormality of the lumbar spine. [facility]-[id number] Procedure Note Hm Interface, Radiology Results Incoming - 02/20/2018 1:10 AM MILK INSPECTOR EXAMINATION: CT LUMBAR SPINE WO CONTRAST CLINICAL [...] acute osseous abnormality of the lumbar spine. [facility]-[id number] Performing Organization Address City/State/Zipcode Phone Number [facility] [address] [place] [address] * CT Head Wo Contrast (02/20/2018 12:56 AM MILK INSPECTOR) Only the most recent of 3 results [...] normal. IMPRESSION: No acute intracranial abnormality identified. [facility]-[id number] Procedure Note Interface, Radiology Results Incoming - 02/20/2018 1:07 AM MILK INSPECTOR EXAMINATION: CT HEAD WO CONTRAST CLINICAL HISTORY: [...] normal. IMPRESSION: No acute intracranial abnormality identified. [facility]-[id number] Performing Organization Address City/State/Zipcode Phone Number [facility] [address] [place] [address] * XR Chest 1 Vw Portable (02/20/2018 12:02 AM MILK INSPECTOR) Only the most recent of 4 results within the time period is included. Specimen Narrative Performed At Examination:[facility] Clinical History:Shortness of breath Comparison: 01/31/2018 Technique: [...] lung volume with vascular crowding or congestion. [facility]-[id number] Procedure Note Interface, Radiology Results Incoming - 02/20/2018 12:08 AM MILK INSPECTOR Examination: XR CHEST 1 VW PORTABLE Clinical [...] lung volume with vascular crowding or congestion. [facility]-[id number] Performing Organization Address City/[facility]/[place] [address] * hCG qualitative, serum screen (02/19/2018 11:45 PM MILK INSPECTOR) Only the most recent of 2 results within the time period is included. [facility] hCG NegativeComment: Sensitivity [facility] DEPARTMENT qualitative, of HCG test: 25 mIU/mL OF PATHOLOGY serum AND GENOMIC MEDICINE Specimen Blood Performing Organization Address [facility] Phone Number [facility] DEPARTMENT OF [address] [place] [address] PATHOLOGY AND GENOMIC MEDICINE * Estimated GFR (02/19/2018 10:39 PM MILK INSPECTOR) Only the most recent of 18 results within the time period is included. [facility] Estimated GFR 10 (A) mL/min/1.73 m2 [facility] DEPARTMENT Comment: OF PATHOLOGY CatergoryUnitsInte AND GENOMIC rpretation MEDICINE G1 >=90 Normal or high G2 60-89Mildly decreased [id number] Mildly to moderately decreased R3w61-55 Moderately to severely decreased G4 15-29Severely decreased G5 <15Kidney failure The eGFR was calculated using the Chronic Kidney Disease Epidemiology Collaboration (CKD-EPI) equation. Interpretation is based on recommendations of the National Kidney Foundation-Kidney Disease Outcomes Quality Initiative (NKF-KDOQI) published in 2014. Specimen Plasma specimen Performing Organization Address City/[facility] [place] [facility] Phone Number [facility] DEPARTMENT OF [address] [place] [address] PATHOLOGY AND GENOMIC MEDICINE * Beta hydroxybutyrate (02/19/2018 10:39 PM MILK INSPECTOR) [facility] Beta 0.07 0.02 - 0.27 mmol/L [facility] hydroxybutyrate OF PATHOLOGY AND GENOMIC MEDICINE Specimen Serum Performing Organization Address [facility] [place] [facility] Cent[facility]ode Phone Number [facility] DEPARTMENT OF [address] [place] [address] PATHOLOGY AND GENOMIC MEDICINE * Troponin (02/19/2018 10:39 PM MILK INSPECTOR) Only the most recent of 7 results within the time period is included. Pathologist [facility] Troponin <0.30 0.00 - 0.30 ng/mL [facility] DEPARTMENT Comment: OF PATHOLOGY 0.30 - 1.49 AND GENOMIC ng/mlMa MEDICINE indicate increased risk of acute coronary syndrome. >=1.5 ng/ml Consistent with acute myocardial infarction. The diagnostic value of a single normal or non-diagnostic result is questionable.Serial samples at 2-6 hour intervals are required to rule out acute myocardial injury. Specimen Plasma specimen Performing Organization Address City/[facility]/Zipcode Phone Number [facility] DEPARTMENT OF [address] [place] [address] PATHOLOGY AND [facility] * Partial thromboplastin time, activated (02/19/2018 10:39 PM MILK INSPECTOR) Only the most recent of 4 results within the time period is included. Pathologist [facility] PTT 44.7 (H) 23.0 - 36.0 sec [facility] DEPARTMENT Comment: OF PATHOLOGY PTT therapeutic range for AND GENOMIC unfractionated heparin is MEDICINE 61.0-112.0 seconds which corresponds to Anti-Xa 0.3-0.7 U/ml. Specimen Blood Performing Organization Address [facility] [place] [facility] Centercode Phone Number [facility] [place] [address] PATHOLOGY AND [facility] * Prothrombin time with INR (02/19/2018 10:39 PM MILK INSPECTOR) Only the most recent of 4 results within the time period is included. Pathologist [facility] Prothrombin 15.7 (H) 11.5 - 14.5 sec [facility] DEPARTMENT time OF PATHOLOGY AND [employer] MEDICINE INR 1.3 [facility] DEPARTMENT Comment: OF PATHOLOGY The International Normalized AND GENOMIC Ratio (INR) is a therapeutic MEDICINE monitoring tool for patients who are stable on oral anticoagulant therapy. An INR of 2.0-3.0 is suggested for deep vein thrombosis/pulmonary embolism. Specimen Blood Performing Organization Address City/[facility]/Zipcode Phone Number [facility] [address] PATHOLOGY AND [facility] MEDICINE * CBC with platelet and differential (02/19/2018 10:39 PM MILK INSPECTOR) Only the most recent of 13 results within the time period is included. Pathologist [facility] WBC 5.22 4.50 - 11.00 k/uL [facility] DEPARTMENT OF PATHOLOGY AND GENOMIC MEDICINE RBC 4.05 (L) 4.20 - 5.50 m/uL [facility] DEPARTMENT OF PATHOLOGY AND GENOMIC MEDICINE HGB 11.5 (L) 12.0 - 16.0 g/dL [facility] DEPARTMENT OF PATHOLOGY AND GENOMIC MEDICINE HCT 39.6 37.0 - 47.0 % [facility] DEPARTMENT OF PATHOLOGY AND GENOMIC MEDICINE MCV 97.8 82.0 - 100.0 fL [facility] DEPARTMENT OF PATHOLOGY AND GENOMIC MEDICINE MCH 28.4 27.0 - 34.0 pg [facility] DEPARTMENT OF PATHOLOGY AND GENOMIC MEDICINE MCHC 29.0 (L) 31.0 - 37.0 g/dL [facility] DEPARTMENT OF PATHOLOGY AND GENOMIC MEDICINE RDW - SD 65.5 (H) 37.0 - 55.0 fL [facility] DEPARTMENT OF PATHOLOGY AND GENOMIC MEDICINE MPV 10.4 8.8 - 13.2 fL [facility] DEPARTMENT OF PATHOLOGY AND GENOMIC MEDICINE Platelet count 147 (L) 150 - 400 k/uL [facility] DEPARTMENT OF PATHOLOGY AND GENOMIC MEDICINE Nucleated RBC 0.00 /100 WBC [facility] DEPARTMENT OF PATHOLOGY AND GENOMIC MEDICINE Neutrophils 71.7 (H) 39.0 - 69.0 % [facility] DEPARTMENT OF PATHOLOGY AND GENOMIC MEDICINE Lymphocytes 17.6 (L) 25.0 - 45.0 % [facility] DEPARTMENT OF PATHOLOGY AND GENOMIC MEDICINE Monocytes 8.0 0.0 - 10.0 % [facility] DEPARTMENT OF PATHOLOGY AND GENOMIC MEDICINE Eosinophils 1.7 0.0 - 5.0 % [facility] DEPARTMENT OF PATHOLOGY AND GENOMIC MEDICINE Basophils 0.6 0.0 - 1.0 % [facility] DEPARTMENT OF PATHOLOGY AND GENOMIC MEDICINE Immature 0.4Comment: "Immature 0.0 - 1.0 % [facility] DEPARTMENT granulocytes granulocytes" (promyelocytes, OF PATHOLOGY myelocytes, metamyelocytes) AND GENOMIC MEDICINE Specimen Blood Performing Organization Address City/[facility]/Zipcode Phone Number [facility] DEPARTMENT OF [address] [place] [phone] PATHOLOGY AND GENOMIC MEDICINE * B natriuretic peptide (02/19/2018 10:39 PM MILK INSPECTOR) Only the most recent of 4 results within the time period is included. BNP 506 (H) 0 - 100 pg/mL [facility] DEPARTMENT OF PATHOLOGY AND GENOMIC MEDICINE Specimen Blood Performing Organization Address City/[facility]/Zipcode Phone Number [facility] DEPARTMENT [address] [address] PATHOLOGY AND GENOMIC MEDICINE * Creatine kinase, total (CPK) (02/19/2018 10:39 PM MILK INSPECTOR) Pathologist [facility] Creatine kinase 40 26 - 192 U/L [facility] DEPARTMENT OF PATHOLOGY AND GENOMIC MEDICINE Specimen Plasma specimen Performing Organization Address City/State/Zipcode Phone Number [facility] DEPARTMENT OF [address] [place] [address] PATHOLOGY AND GENOMIC MEDICINE * Comprehensive metabolic panel (02/19/2018 10:39 PM MILK INSPECTOR) Only the most recent of 8 results within the time period is included. Pathologist [facility] Sodium 137 135 - 148 mEq/L [facility] DEPARTMENT OF PATHOLOGY AND GENOMIC MEDICINE Potassium 3.9 3.5 - 5.0 mEq/L [facility] DEPARTMENT OF PATHOLOGY AND GENOMIC MEDICINE Chloride 98 98 - 112 mEq/L [facility] DEPARTMENT OF PATHOLOGY AND GENOMIC MEDICINE CO2 20 (L) 24 - 31 mEq/L [facility] DEPARTMENT OF PATHOLOGY AND GENOMIC MEDICINE Anion gap 19@ANIO (H) 7 - 15 mEq/L [facility] DEPARTMENT OF PATHOLOGY AND GENOMIC MEDICINE BUN 35 (H) 6 - 20 mg/dL [facility] DEPARTMENT OF PATHOLOGY AND GENOMIC MEDICINE Creatinine 5.83 (H) 0.50 - 0.90 mg/dL [facility] DEPARTMENT OF PATHOLOGY AND GENOMIC MEDICINE Glucose 138 (H) 65 - 99 mg/dL [facility] DEPARTMENT OF PATHOLOGY AND GENOMIC MEDICINE Calcium 9.0 8.3 - 10.2 mg/dL [facility] DEPARTMENT OF PATHOLOGY AND GENOMIC MEDICINE Protein 8.5 (H) 6.3 - 8.3 g/dL [facility] DEPARTMENT Comment: OF PATHOLOGY [place] AND GENOMIC 4.6-7.0 g/dL MEDICINE 1 week 4.4-7.6 g/dL 7 months-1year 5.1-7.3 g/dL 1-2 years5.6-7 .5 g/dL >3 years6.0-8 .0 g/dL 18-150 6.3-8.3 g/dL Albumin 2.6 (L) 3.5 - 5.0 g/dL [facility] DEPARTMENT OF PATHOLOGY AND GENOMIC MEDICINE A/G ratio 0.4 (L) 0.7 - 3.8 [facility] DEPARTMENT OF PATHOLOGY AND GENOMIC MEDICINE Alkaline 205 (H) 35 - 104 U/L [facility] DEPARTMENT phosphatase OF PATHOLOGY AND GENOMIC MEDICINE AST 29 10 - 35 U/L [facility] DEPARTMENT OF PATHOLOGY AND GENOMIC MEDICINE ALT 25 5 - 50 U/L [facility] DEPARTMENT OF PATHOLOGY AND GENOMIC MEDICINE Total bilirubin 0.3 0.0 - 1.2 mg/dL [facility] DEPARTMENT OF PATHOLOGY AND GENOMIC MEDICINE Specimen Plasma specimen Performing Organization Address City/[facility]/[place] [facility] Centercode Phone Number [facility] DEPARTMENT OF [address] [place] [address] PATHOLOGY AND GENOMIC MEDICINE * ECG ED Preliminary Interpretation - NOT AN ORDER (02/19/2018 9:56 PM MILK INSPECTOR) Only the most recent of 2 results within the time period is included. Narrative Performed At Kourtney Sanchez MD 02/20/20185:40 PM ECG ED Preliminary Interpretation - Not an Order Performed by: KOURTNEY SANCHEZ Authorized by: KOURTNEY SANCHEZ ECG reviewed by ED Physician in the absence of a vocal artist: yes Previous ECG: Previous ECG:Compared to current [...] normal * POC glucose (02/19/2018 9:36 PM MILK INSPECTOR) Only the most recent of 165 results within the time period is included. POC glucose 148 (H) 65 - 99 mg/dL [facility] DEPARTMENT Comment: OF PATHOLOGY No Action Needed AND GENOMIC Meter ID: [id number] MEDICINE Safety Associate: Roel Dorsey Specimen Performing Organization Address City/[facility]/[place] [facility] Centercode Phone Number [facility] DEPARTMENT OF [address] [place] [address] PATHOLOGY AND GENOMIC MEDICINE * ECG 12 lead (02/19/2018 9:07 PM MILK INSPECTOR) Only the most recent of 4 results within the time period is included. Ventricular 101 [facility] rate Atrial rate 101 [facility] MD interval 186 [facility] QRSD interval 100 [facility] QT interval 392 [facility] QTC interval 508 [facility] P axis 1 58 [facility] QRS axis 1 -9 [facility] T wave axis 75 [facility] EKG impression Sinus tachycardia-Nonspecific [facility] MUSE ST and T wave abnormality-Abnormal ECG-In automated comparison with ECG of 26-JAN-2018 23:47,-Nonspecific T wave abnormality no longer evident in Inferior leads-T wave inversion no longer evident in Lateral leads- Specimen Performing Organization Address City/[facility]/[place] [facility] Centercode Phone Number [facility] MUSE [address] [place] [address] * Smear review (02/17/2018 4:30 AM MILK INSPECTOR) Platelet slide Kenia adequate [facility] DEPARTMENT review OF PATHOLOGY AND GENOMIC MEDICINE Anisocytosis Moderate [facility] DEPARTMENT OF PATHOLOGY AND GENOMIC MEDICINE Polychromasia Moderate [facility] DEPARTMENT OF PATHOLOGY AND GENOMIC MEDICINE Ovalocytes Moderate [facility] DEPARTMENT OF PATHOLOGY AND GENOMIC MEDICINE Specimen Performing Organization Address [facility] [place] [facility] Centercode Phone Number [facility] DEPARTMENT OF [address] [place], [place] [id number] PATHOLOGY AND GENOMIC MEDICINE * Basic metabolic panel (02/17/2018 4:00 AM MILK INSPECTOR) Only the most recent of 10 results within the time period is included. Sodium 136 135 - 148 mEq/L [facility] DEPARTMENT OF PATHOLOGY AND GENOMIC MEDICINE Potassium 4.8 3.5 - 5.0 mEq/L [facility] DEPARTMENT OF PATHOLOGY AND GENOMIC MEDICINE Chloride 97 (L) 98 - 112 mEq/L [facility] DEPARTMENT OF PATHOLOGY AND GENOMIC MEDICINE CO2 22 (L) 24 - 31 mEq/L [facility] DEPARTMENT OF PATHOLOGY AND GENOMIC MEDICINE Anion gap 17@ANIO (H) 7 - 15 mEq/L [facility] DEPARTMENT OF PATHOLOGY AND GENOMIC MEDICINE BUN 32 (H) 6 - 20 mg/dL [facility] DEPARTMENT OF PATHOLOGY AND GENOMIC MEDICINE Creatinine 5.52 (H) 0.50 - 0.90 mg/dL [facility] DEPARTMENT OF PATHOLOGY AND GENOMIC MEDICINE Glucose 72 65 - 99 mg/dL [facility] DEPARTMENT OF PATHOLOGY AND GENOMIC MEDICINE Calcium 8.8 8.3 - 10.2 mg/dL [facility] DEPARTMENT OF PATHOLOGY AND GENOMIC MEDICINE Specimen Plasma specimen Performing Organization Address [facility]/Zipcode Phone Number [facility] DEPARTMENT OF [address] [place] [phone] PATHOLOGY AND GENOMIC MEDICINE * CT Angiogram [...] axillary lymphadenopathy, stable when compared to prior. [facility]-[id number] Procedure Note [facility], Radiology Results Incoming - 02/14/2018 7:17 PM [...] axillary lymphadenopathy, stable when compared to prior. [facility]-[id number] Performing Organization Address City/[facility]/[place] [facility] Centercode Phone Number [place] [phone] [place] [address] * Magnesium level (02/14/2018 12:00 PM CDT) Only the most recent of 3 results within the time period is included. Magnesium 2.5 1.6 - 2.6 mg/dL [facility] DEPARTMENT OF PATHOLOGY AND GENOMIC MEDICINE Specimen Plasma specimen Performing Organization Address City/[facility] [place] [facility] Centercode Phone Number [address] [address] PATHOLOGY AND GENOMIC MEDICINE * Phosphorus level (02/10/2018 4:56 AM CDT) Only the most recent of 2 results within the time period is included. Phosphorus 2.1 (L) 2.4 - 4.5 mg/dL [facility] DEPARTMENT OF PATHOLOGY AND GENOMIC MEDICINE Specimen Plasma specimen Performing Organization Address City/[facility] [place] [facility] Centercode Phone Number [facility] [place] [address] PATHOLOGY AND GENOMIC MEDICINE * Free phenytoin level (02/10/2018 4:56 AM CDT) Phenytoin, free 0.49 (L) 1.00 - 2.00 ug/mL [facility] DEPARTMENT OF PATHOLOGY AND GENOMIC MEDICINE Specimen Blood Performing Organization Address [facility] [place] [facility] Centercode Phone Number [facility] [place] [address] PATHOLOGY AND GENOMIC MEDICINE * Phenytoin level (02/10/2018 4:56 AM CDT) Only the most recent of 4 results within the time period is included. Phenytoin 3.5 (L) 10.0 - 20.0 ug/mL [facility] DEPARTMENT Comment: OF PATHOLOGY Therapeutic Range: AND GENOMIC 10 - 20 ug/mL MEDICINE Specimen Plasma specimen Performing Organization Address [facility] Phone Number [facility] [place] [place] [address] PATHOLOGY AND GENOMIC MEDICINE * Sedimentation rate (02/08/2018 3:30 PM CDT) Only the most recent of 2 results within the time period is included. Sedimentation 38 (H) 0 - 20 mm/hr [facility] DEPARTMENT rate OF PATHOLOGY AND GENOMIC MEDICINE Specimen Blood Performing Organization Address [facility] Phone Number [facility] [place] [address] PATHOLOGY AND GENOMIC MEDICINE * C-reactive protein (02/08/2018 11:54 AM CDT) Only the most recent of 2 results within the time period is included. CRP 0.43 0.00 - 0.50 mg/dL [facility] DEPARTMENT OF PATHOLOGY AND GENOMIC MEDICINE Specimen Plasma specimen Performing Organization Address [facility] [place] [facility] Centercode Phone Number [facility] [place] [address] PATHOLOGY AND GENOMIC MEDICINE * MRI Shoulder [...] SOFT TISSUES: Extensive periarticular soft tissue edema. [facility]-[id number] Procedure Note Interface, Radiology Results Incoming - [...] SOFT TISSUES: Extensive periarticular soft tissue edema. [facility]-[id number] Performing Organization Address City/State/Zipcode Phone Number [facility] [address] [place] [address] * MRI Cervical Spine Wo Contrast (02/07/2018 [...] IMPRESSION: No significant cervical spine abnormality identified. [facility]-[id number] Procedure Note Hm Interface, Radiology Results Incoming [...] IMPRESSION: No significant cervical spine abnormality identified. [id number] Performing Organization Address [facility]/Zipcode Phone Number [facility] [address] [place] [address] * MRI Brain Wo Contrast (02/07/2018 11:50 [...] are unremarkable. IMPRESSION: No acute intracranial abnormality. [id number] Procedure Note Interface, Radiology Results Incoming - [...] are unremarkable. IMPRESSION: No acute intracranial abnormality. [facility]-[id number] Performing Organization Address [facility] [place] [facility] Phone Number [facility] [address] [place] [address] * NM Bone Scan 3 Phase (02/05/2018 [...] suggest osteomyelitis involving the proximal left humerus. [facility]-[id number] Procedure Note [facility], Radiology Results Incoming - 02/05/2018 1:36 PM [...] suggest osteomyelitis involving the proximal left humerus. [facility]-[id number] Performing Organization Address City/State/Zipcode Phone Number [facility] [address] [place] [address] * CBC hemogram (02/04/2018 11:30 AM CDT) Only the most recent of 3 results within the time period is included. WBC 3.45 (L) 4.50 - 11.00 k/uL [facility] DEPARTMENT OF PATHOLOGY AND GENOMIC MEDICINE RBC 3.26 (L) 4.20 - 5.50 m/uL [facility] DEPARTMENT OF PATHOLOGY AND GENOMIC MEDICINE HGB 9.0 (L) 12.0 - 16.0 g/dL [facility] DEPARTMENT OF PATHOLOGY AND GENOMIC MEDICINE HCT 31.3 (L) 37.0 - 47.0 % [facility] DEPARTMENT OF PATHOLOGY AND GENOMIC MEDICINE MCV 96.0 82.0 - 100.0 fL [facility] DEPARTMENT OF PATHOLOGY AND GENOMIC MEDICINE MCH 27.6 27.0 - 34.0 pg [facility] DEPARTMENT OF PATHOLOGY AND GENOMIC MEDICINE MCHC 28.8 (L) 31.0 - 37.0 g/dL [facility] DEPARTMENT OF PATHOLOGY AND GENOMIC MEDICINE RDW - SD 61.7 (H) 37.0 - 55.0 fL [facility] DEPARTMENT OF PATHOLOGY AND GENOMIC MEDICINE MPV 10.8 8.8 - 13.2 fL [facility] DEPARTMENT OF PATHOLOGY AND GENOMIC MEDICINE Platelet count 142 (L) 150 - 400 k/uL [facility] DEPARTMENT OF PATHOLOGY AND GENOMIC MEDICINE Nucleated RBC 0.00 /100 WBC [facility] DEPARTMENT OF PATHOLOGY AND GENOMIC MEDICINE Specimen Blood Performing Organization Address City/[facility]/[place] [facility]ode Phone Number [facility] OF [address] [place] [phone] PATHOLOGY AND [employer] MEDICINE * Urine drugs of abuse screen (02/02/2018 1:41 PM CDT) Only the most recent of 2 results within the time period is included. Amphetamine Negative [facility] DEPARTMENT screen, urine OF PATHOLOGY AND GENOMIC MEDICINE Barbiturate Negative [facility] DEPARTMENT screen, urine OF PATHOLOGY AND GENOMIC MEDICINE Benzodiazepine Negative [facility] DEPARTMENT screen, urine OF PATHOLOGY AND GENOMIC MEDICINE Cannabinoid Negative [facility] DEPARTMENT screen, urine OF PATHOLOGY AND GENOMIC MEDICINE Cocaine screen, Negative [facility] DEPARTMENT urine OF PATHOLOGY AND GENOMIC MEDICINE Methadone Negative [facility] DEPARTMENT metabolite OF PATHOLOGY (EDDP), urine AND GENOMIC MEDICINE Opiates screen, Positive (A) [facility] DEPARTMENT urine OF PATHOLOGY AND GENOMIC MEDICINE Oxycodone Negative [facility] DEPARTMENT screen, urine OF PATHOLOGY AND GENOMIC MEDICINE Phencyclidine Negative [facility] DEPARTMENT screen, urine OF PATHOLOGY AND GENOMIC MEDICINE Tricyclic Negative [facility] DEPARTMENT screen, urine Comment: OF PATHOLOGY Drug [...] purposes only. Specimen Urine Performing Organization Address [facility]/[place] [facility] Cent[facility]ode Phone Number [facility] OF [address] [place] [address] PATHOLOGY AND [employer] MEDICINE * Urinalysis, automated with microscopy (02/02/2018 1:41 PM CDT) Color, UA Dark Yellow [facility] DEPARTMENT OF PATHOLOGY AND GENOMIC MEDICINE Appearance, UA Hazy [facility] DEPARTMENT OF PATHOLOGY AND GENOMIC MEDICINE Specific 1.019 1.001 - 1.035 [facility] DEPARTMENT gravity, OF PATHOLOGY AND GENOMIC MEDICINE pH, UA 5.0 5.0 - 8.5 [facility] DEPARTMENT OF PATHOLOGY AND GENOMIC MEDICINE Protein, UA 2+ (A) Negative [facility] DEPARTMENT OF PATHOLOGY AND GENOMIC MEDICINE Glucose, UA Negative Negative [facility] DEPARTMENT OF PATHOLOGY AND GENOMIC MEDICINE Ketones, UA Negative Negative [facility] DEPARTMENT OF PATHOLOGY AND GENOMIC MEDICINE Bilirubin, UA Negative Negative [facility] DEPARTMENT OF PATHOLOGY AND GENOMIC MEDICINE Blood, UA Small (A) Negative [facility] DEPARTMENT OF PATHOLOGY AND GENOMIC MEDICINE Nitrite, UA Negative Negative [facility] DEPARTMENT OF PATHOLOGY AND GENOMIC MEDICINE Urobilinogen, <2.0 <2.0 [facility] UA OF PATHOLOGY AND GENOMIC MEDICINE Leukocyte Moderate (A) Negative [facility] DEPARTMENT esterase, UA OF PATHOLOGY AND GENOMIC MEDICINE Epithelial 3 /HPF [facility] DEPARTMENT cells, UA OF PATHOLOGY AND GENOMIC MEDICINE WBC, UA 85 (H) 0 - 4 /HPF [facility] DEPARTMENT OF PATHOLOGY AND GENOMIC MEDICINE RBC, UA 4 0 - 5 /HPF [facility] DEPARTMENT OF PATHOLOGY AND GENOMIC MEDICINE Bacteria, UA Few None seen [facility] DEPARTMENT OF PATHOLOGY AND GENOMIC MEDICINE Hyaline casts, >20 (A) /LPF [facility] UA OF PATHOLOGY AND GENOMIC MEDICINE Yeast, UA None seen [facility] DEPARTMENT OF PATHOLOGY AND GENOMIC MEDICINE Yeast with None seen [facility] DEPARTMENT pseudohyphae, OF PATHOLOGY UA AND GENOMIC MEDICINE Specimen Urine Performing Organization Address City/State/Zipcode Phone Number [facility] DEPARTMENT OF [address] [place] [address] PATHOLOGY AND GENOMIC MEDICINE * XR Abdomen 1 Vw Portable (01/31/2018 8:11 PM CDT) Specimen Narrative Performed At EXAMINATION:XR ABDOMEN 1 VW PORTABLE [facility] CLINICAL HISTORY:vomiting COMPARISON:None. IMPRESSION: Moderate amount retained stool in colon There is a nonspecific bowel gas pattern. No free air is identified. Gallbladder has been removed [facility]-[id number] Procedure Note Interface, Radiology Results Incoming - 01/31/2018 8:16 PM CDT EXAMINATION: XR ABDOMEN 1 VW PORTABLE CLINICAL HISTORY: vomiting COMPARISON: None. IMPRESSION: Moderate amount retained stool in colon There is a nonspecific bowel gas pattern. No free air is identified. Gallbladder has been removed [facility]-[id number] Performing Organization Address City/State/Zipcode Phone Number [facility] [address] [place] [address] * EEG (routine) (01/31/2018 1:55 PM CDT) [...] at 01/31/2018 12:04 PM who verbalized understanding. [facility]-[id number] Procedure Note Hm Interface, Radiology Results Incoming [...] at 01/31/2018 12:04 PM who verbalized understanding. [facility]-[id number] Performing Organization Address City/[facility]/[place] [address] * Arterial blood gas (01/31/2018 8:23 AM CDT) pH, arterial 7.40 7.35 - 7.45 [facility] DEPARTMENT OF PATHOLOGY AND GENOMIC MEDICINE pCO2, arterial 38 35 - 45 mmHg [facility] DEPARTMENT OF PATHOLOGY AND GENOMIC MEDICINE pO2, arterial 143 (H) 80 - 90 mmHg [facility] DEPARTMENT OF PATHOLOGY AND GENOMIC MEDICINE Bicarbonate, 22.6 21.0 - 28.0 mmol/L [facility] arterial OF PATHOLOGY AND GENOMIC MEDICINE Base excess, -1 -2 - 2 mEq/L [facility] arterial OF PATHOLOGY AND GENOMIC MEDICINE O2 saturation, 100 95 - 100 % [facility] arterial OF PATHOLOGY AND GENOMIC MEDICINE Specimen Blood Performing Organization Address City/[facility]/[place] [facility] [place] [address] PATHOLOGY AND GENOMIC MEDICINE * Manual differential (01/31/2018 8:22 AM CDT) Manual PERFORMED [facility] DEPARTMENT differential OF PATHOLOGY AND GENOMIC MEDICINE Neutrophils 90.0 (H) 39.0 - 69.0 % [facility] DEPARTMENT OF PATHOLOGY AND GENOMIC MEDICINE Lymphocytes 7.0 (L) 25.0 - 45.0 % [facility] DEPARTMENT OF PATHOLOGY AND GENOMIC MEDICINE Monocytes 1.0 0.0 - 10.0 % [facility] DEPARTMENT OF PATHOLOGY AND GENOMIC MEDICINE Eosinophils 2.0 0.0 - 5.0 % [facility] DEPARTMENT OF PATHOLOGY AND GENOMIC MEDICINE Basophils 0.0 0.0 - 1.0 % [facility] DEPARTMENT OF PATHOLOGY AND GENOMIC MEDICINE Metamyelocytes 0 % [facility] DEPARTMENT OF PATHOLOGY AND GENOMIC MEDICINE Promyelocytes 0 % [facility] DEPARTMENT OF PATHOLOGY AND GENOMIC MEDICINE Platelet slide Kenia slt decr [facility] DEPARTMENT review OF PATHOLOGY AND GENOMIC MEDICINE Anisocytosis Moderate [facility] DEPARTMENT OF PATHOLOGY AND GENOMIC MEDICINE Polychromasia Moderate [facility] DEPARTMENT OF PATHOLOGY AND GENOMIC MEDICINE Ovalocytes Moderate [facility] DEPARTMENT OF PATHOLOGY AND GENOMIC MEDICINE Enlarged Moderate (A) [facility] DEPARTMENT platelets OF PATHOLOGY AND GENOMIC MEDICINE Specimen Narrative Performed At [facility] and reab back to Ophelia Quevedo at 01/31/18 08:59 by [email or web address] [facility] DEPARTMENT OF PATHOLOGY AND GENOMIC MEDICINE Performing Organization Address City/[facility]/Zipcode Phone Number [facility] DEPARTMENT OF [address] [place] [address] PATHOLOGY AND GENOMIC MEDICINE * Lactic acid level (01/31/2018 8:22 AM CDT) Only the most recent of 2 results within the time period is included. Lactic acid 1.2 0.5 - 2.2 mmol/L [facility] DEPARTMENT OF PATHOLOGY AND GENOMIC MEDICINE Specimen Blood Performing Organization Address City/[facility]/Zipcode Phone Number [facility] DEPARTMENT OF [address] [place] [address] PATHOLOGY AND GENOMIC MEDICINE * EEG (routine) [...] 10:05 AM CDT) Specimen Narrative Performed At [facility] Echocardiography Report [address] [facility] [address] [address] Pat.Name:SONAM BERMEO Rosario.ID:[id number] .Date: 01/29/2018Refer.MD:REGINALD FIGUEROA MD Exam Time: 9:20:00 AMStudy Type:Routine Echo Height:63inWeight:148lb BSA: 1.7 w5QFPVbm:1985,32Y Sex: FEMALEBP:140/97 HR:101 bpm Sonogrphr: Dale Issa RDCS Pat. Stat.:Inpatient Room:0 1003A Study Status:Final Echo Event ID:[id number] Order ID:[id number] Reason for Study:Stroke History / Clinical:Congestive Heart [...] RAPof 10 mmHg. MEASUREMENTS: 2D Parasternal Long Bono LVOT 1.9 cmLA Ds3.1 cm LVIDd4.9 cmIndex2.9 [...] 4.8 cm EF Biplane HR 103 bpm VDJ794.4 ml CO 2.5 l/min SV49.1 ml CIV069.6 mlEF29.5 % DOPPLER LVOT Stroke Vol LVOT 1.9 cmLVOT CO3 l/min LVOT TVI10.4 cmLVOT CI1.8 l/m/m2 LVOT Tm254 msecHR 103 bpm LVOT SV 29.5 ml MA For Flow/Valve Assess MA TVI 141.6 cm Signed 01/30/2018 12:21 AM Santana Redding M.D. Procedure Note Interface, Radiology Results In - 01/30/2018 12:21 AM CDT Echocardiography Report [address] [place] [address] Pat.Name: SONAM BERMEO Pat.ID: [id number] .Date: 01/29/2018 Refer.MD: REGINALD FIGUEROA MD Exam Time: 9:20:00 AM Study Type:Routine Echo Height: 63in Weight: 148lb BSA: 1.7 m2 Age: 9 1985,32Y Sex: FEMALE BP: 140/97 HR: 101 bpm Sonogrphr: Dale Issa RDCS Pat. Stat.:Inpatient Room: [address] Study Status:Final Echo Event ID:[id number] Order ID: [id number] Reason for Study:Stroke History / Clinical:Congestive Heart [...] of 10 mmHg. MEASUREMENTS: 2D Parasternal Long Bono LVOT 1.9 cm LA Ds 3.1 cm [...] AM Santana Redding M.D. Performing Organization Address City/State/[place] [facility] Centercode Phone Number [facility] [address] [place] [address] * CTA Neck W Wo Contrast (01/28/2018 [...] no significant carotid or vertebral artery stenosis. [facility]-[id number] Procedure Note Interface, Radiology Results Incoming - [...] no significant carotid or vertebral artery stenosis. [facility]-[id number] Performing Organization Address City/State/Zipcode Phone Number [facility] [address] [place] [address] * Lipid panel (01/28/2018 6:47 PM CDT) Cholesterol 117 <200 mg/dL [facility] DEPARTMENT OF PATHOLOGY AND GENOMIC MEDICINE Triglycerides 92 <150 mg/dL [facility] DEPARTMENT OF PATHOLOGY AND GENOMIC MEDICINE HDL cholesterol 50 >40 mg/dL [facility] DEPARTMENT OF PATHOLOGY AND GENOMIC MEDICINE LDL cholesterol 64Comment: Result obtained by <100 mg/dL [facility] DEPARTMENT direct LDL measurement OF PATHOLOGY AND GENOMIC MEDICINE Lipid panel SeeBelow [facility] DEPARTMENT interpretation Comment: OF PATHOLOGY Total Cholesterol [...] specimen Performing Organization Address City/State/Zipcode Phone Number [facility] DEPARTMENT OF [address] [place] [address] PATHOLOGY AND GENOMIC MEDICINE * CT Upper [...] humeral head suspicious for extension of osteomyelitis. [facility]-[id number] Procedure Note Hm Interface, Radiology Results Incoming [...] humeral head suspicious for extension of osteomyelitis. [facility]-[id number] Performing Organization Address City/State/Zipcode Phone Number [facility] [address] [place] [address] * CTA Head W Wo Contrast (01/28/2018 [...] aneurysmal dilatation or vascular malformation of the [place]. The major dural sinuses are opacified normally. There are no gross brain parenchymal abnormalities. There is no midline shift, hydrocephalus or extra-axial fluid collection. Soft tissue shows no evidence of laceration or hematoma. There is no air-fluid level in the sinuses. Osseous calvarium is intact. IMPRESSION: 1.No hemodynamically significant narrowing of the [place] vessels. [facility]-[id number] Procedure Note Interface, Radiology Results Incoming - [...] aneurysmal dilatation or vascular malformation of the [place]. The major dural sinuses are opacified normally. There are no gross brain parenchymal abnormalities. There is no midline shift, hydrocephalus or extra-axial fluid collection. Soft tissue shows no evidence of laceration or hematoma. There is no air-fluid level in the sinuses. Osseous calvarium is intact. IMPRESSION: 1. No hemodynamically significant narrowing of the [place] vessels. [facility]-[id number] Performing Organization Address City/State/Zipcode Phone Number [facility]HE[facility] [address] [place] [address] * CT Chest Wo Contrast (01/28/2018 4:55 PM CDT) Specimen Narrative Performed At [facility] CLINICAL HISTORY: [...] is enlarged. 5.Left proximal humeral fracture reidentified. [facility]-[id number] Procedure Note [facility], Radiology Results [facility] - 01/28/2018 5:13 PM CDT EXAMINATION: [...] enlarged. 5. Left proximal humeral fracture reidentified. [facility]-[id number] Performing Organization Address City/State/Zipcode Phone Number [facility] [address] [place] [address] * Keppra (Levetiracetam) level (01/28/2018 8:00 AM CDT) Pathologist [facility] Levetiracetam 16 12 - 46 ug/mL [facility] Comment: INTERPRETIVE INFORMATION: Keppra (Levetiracetam) Therapeutic Range:12-46 ug/mL Toxic: Not well Established Pharmacokinetics of levetiracetam are affected by renal function. Adverse effects may include somnolence, weakness, headache and vomiting. This levetiracetam (Keppra) immunoassay uses the [employer] reagents, which has known cross-reactivity with the drug brivaracetam (Briviact) and may report inaccurate results. Patients transitioning from levetiracetam to brivaracetam or those who are using both medications should not monitor drug concentrations with the [employer] assay. These patients should be monitored using a validated chromatographic methodology that distinguishes between drugs to determine drug concentrations. Performed by [facility], [address] [place] [id number] [email or web address], Boby Brito MD - Lab. Director Specimen Serum Performing Organization Address [facility]/[place] [facility] Centercoor Phone Number [employer] [facility] [address] [place] [address] * Transfuse RBC (01/27/2018 9:20 PM CDT) Only the most recent of 5 results within the time period is included. * Hepatitis B surface antigen (01/27/2018 6:20 PM CDT) Only the most recent of 2 results within the time period is included. Pathologist [facility] Hepatitis B Non-reactive Non-reactive [facility] DEPARTMENT surface Ag OF PATHOLOGY AND GENOMIC MEDICINE Specimen Blood Performing Organization Address City/[facility]/Zipcode Phone Number [facility] DEPARTMENT OF [address] [place] [address] PATHOLOGY AND GENOMIC MEDICINE * Pv duplex venous upper extremity (01/27/2018 2:47 PM CDT) Only the most recent of 2 results within the time period is included. Specimen Narrative Performed At [facility] Upper Extremity Venous Report [address] [facility] [address], [place] [address] Pat.Name:SONMA BERMEO Pat.ID:[id number] .Date: 01/27/2018Refer.MD:REGINALD FIGUEROA MD Exam Time: 2:29:00 PMStudy Type:UE Venous DOBAge:1985,32Y Sex: FEMALE Sonogrphr: KATHY Robertson RCS Pat. Stat.:Inpatient Room:[place] [address] TapeVol: PATRICIA CPT - 4: 24230 Echo Event ID:[id number] Order ID:[id number] Reason for Study:Left arm swelling and pain, [...] [facility] Upper Extremity Venous Report [address] [place] [address] Pat.Name: SONAM BERMEO Pat.ID: [id number] .Date: 01/27/2018 Refer.MD: REGINALD FIGUEROA MD Exam Time: 2:29:00 PM Study Type:UE Venous Age: 9 1985,32Y Sex: FEMALE Sonogrphr: KATHY Robertson, NOEMY Pat. Stat.:Inpatient Room: [place] [address] Tape Vol: PATRICIA CPT - 4: 50776 Echo Event ID:[id number] Order ID: [id number] Reason for Study:Left arm swelling and pain, [...] RPVI Performing Organization Address City/State/Zipcode Phone Number [facility] [address] [place] [address] * Pv carotid duplex (01/27/2018 2:28 PM CDT) Specimen Narrative Performed At [facility] Vascular Ultrasound Laboratory Carotid Artery Duplex Report [address] [place] [address] For quality assurance supervisor chassis purposes, the categorization of the degree of the stenosis of this exam is based on criteria described in the IAC carotid stenosis grading white paper( www.intersocietal.org/Vascular) and Neli Kilgore., Yoan Cruz., et al. Carotid artery stenosis: murillo-scale and Doppler US diagnosis--Society of Radiologists in Ultrasound Consensus Conference. Radiology. 2003 Nov; 229(2):340-6. Pat.Name:SONAM BERMEO Rosario.ID:[id number] .Date: 01/27/2018Refer.MD:REGINALD FIGUEROA MD Exam Time: 2:12:00 PMStudy Type:Carotid DOBAge:1985,32Y Sex: FEMALE Sonogrphr: Nicholas Reynoso, KATHY, NOEMY Pat. Stat.:Inpatient Room:[place] [id number] A TapeVol: PATRICIA, CPT - 4: 96090 Echo Event ID:[id number] Order ID:[id number] Reason for Study:Concern for clot, patient had [...] [facility] Carotid Artery Duplex Report [address] [place] [address] For quality assurance supervisor chassis purposes, the categorization of the degree of the stenosis of this exam is based on criteria described in the IAC carotid stenosis grading white paper( www.intersocietal.org/Vascular) and Chan Kilgore, Sherif Cruz, et al. Carotid artery stenosis: murillo-scale and Doppler US diagnosis--Society of Radiologists in Ultrasound Consensus Conference. Radiology. 2003 Feb; 229(2):340-6. Pat.Name: SONAM BERMEO [facility].ID: [id number] .Date: 01/27/2018 Refer.MD: REGINALD FIGUEROA MD Exam Time: 2:12:00 PM Study Type:Carotid Age: 9 1985,32Y Sex: FEMALE Sonogrphr: KATHY Robertson RCS Pat. Stat.:Inpatient Room: [address] Vol: PATRICIA, CPT - 4: 52547 Echo Event ID:[id number] Order ID: [id number] Reason for Study:Concern for clot, patient had [...] Caleb Pulliam MD, RPVI Performing Organization Address [facility]/Zipcode Phone Number [facility] [address] [place] [address] * Lactic acid level, SEPSIS - Now and repeat 2x every 3 hours (01/27/2018 6:34 AM CDT) Only the most recent of 2 results within the time period is included. Lactic acid 1.8 0.5 - 2.2 mmol/L [facility] DEPARTMENT OF PATHOLOGY AND GENOMIC MEDICINE Specimen Blood Performing Organization Address City/[facility]/Zipcode Phone Number [facility] DEPARTMENT OF [address] [place] [address] PATHOLOGY AND GENOMIC MEDICINE * Prepare RBC, 1 Units (01/27/2018 3:44 AM CDT) Only the most recent of 2 results within the time period is included. Product name Red Blood Cells -1, Leukored [facility] DEPARTMENT OF PATHOLOGY AND GENOMIC MEDICINE Unit number [id number] [facility] DEPARTMENT OF PATHOLOGY AND GENOMIC MEDICINE Product code [id number] [facility] DEPARTMENT OF PATHOLOGY AND GENOMIC MEDICINE Dispense status Transfused [facility] DEPARTMENT OF PATHOLOGY AND GENOMIC MEDICINE Blood [id number] [facility] DEPARTMENT expiration date OF PATHOLOGY AND GENOMIC MEDICINE Blood type code 5100 [facility] DEPARTMENT OF PATHOLOGY AND GENOMIC MEDICINE Blood type O POSITIVE [facility] DEPARTMENT OF PATHOLOGY AND GENOMIC MEDICINE Specimen Performing Organization Address City/[facility]/Zipcode Phone Number [facility] DEPARTMENT OF [address] [place] [address] PATHOLOGY AND GENOMIC MEDICINE * Type and screen (01/27/2018 3:44 AM CDT) Only the most recent of 2 results within the time period is included. ABO grouping O [facility] DEPARTMENT OF PATHOLOGY AND GENOMIC MEDICINE Rh type POS [facility] DEPARTMENT OF PATHOLOGY AND GENOMIC MEDICINE Antibody screen NEG [facility] DEPARTMENT (gel) OF PATHOLOGY AND GENOMIC MEDICINE Specimen Blood Performing Organization Address City/[facility]/Zipcode Phone Number [facility] DEPARTMENT OF [address] [place] [address] PATHOLOGY AND GENOMIC MEDICINE * XR Abdomen [...] technique. Diffuse osteopenia. No acute osseous abnormalities. [facility]-[id number] Procedure Note Hm Interface, Radiology Results Incoming [...] technique. Diffuse osteopenia. No acute osseous abnormalities. [facility]-[id number] Performing Organization Address City/State/Zipcode Phone Number [facility] [address] [place] [address] * Blood culture, aerobic & anaerobic (01/26/2018 12:50 AM CDT) Blood culture No growth after 5 days of [facility] DEPARTMENT isolate incubation. OF PATHOLOGY Comment: AND GENOMIC Specimen Information MEDICINE Specimen Source: Blood Specimen Site: Other Specimen Blood - Other- Detailed Description Required Performing Organization Address City/State/Zipcode Phone Number [facility] DEPARTMENT OF [address] [place] [address] PATHOLOGY AND GENOMIC MEDICINE * IR Tunneled Dialysis Catheter Replacement/Exchange (01/02/2018 9:37 AM CDT) Specimen Narrative Performed At Procedure: Change of tunneled dialysis catheter [facility] Clinical History: End-stage renal disease. The patient's indwelling catheter is not functioning. Sedation: Versed and fentanyl were utilized for monitored conscious sedation during the procedure. The patient was transferred to the recovery room at the end of the procedure for further monitoring. [id number] time 15 minutes Anesthesia: Local Radiation dose: [...] above. Blood Loss: Less than 1 mL [facility]-[id number] Procedure Note Interface, Radiology Results Incoming - 01/02/2018 9:51 AM CDT Procedure: Change of tunneled dialysis catheter Clinical History: End-stage renal disease. The patient's indwelling catheter is not functioning. Sedation: Versed and fentanyl were utilized for monitored conscious sedation during the procedure. The patient was transferred to the recovery room at the end of the procedure for further monitoring. Bgmb-bg-[id number] time 15 minutes Anesthesia: Local Radiation dose: [...] above. Blood Loss: Less than 1 mL [facility]-[id number] Performing Organization Address City/[facility] Centercode Phone Number [facility] [address] [place] [address] * Vancomycin level, random (01/01/2018 4:38 AM CDT) Only the most recent of 2 results within the time period is included. Vancomycin, SEE COMMENT ug/mL [facility] DEPARTMENT random Comment: OF PATHOLOGY Footnote--------- AND GENOMIC Specimen integrity MEDICINE questionable.Recollect requested for VANCT.APPLE ISO/M3SW notified by KXG at01/01/201806:39 . Specimen Serum Performing Organization Address City/[facility]/[place] [facility] Centercode Phone Number [facility] DEPARTMENT OF [address] [phone] PATHOLOGY AND GENOMIC MEDICINE * Echocardiogram complete w contrast and 3D if needed (12/30/2017 9:36 AM CDT) Specimen Narrative Performed At [facility] Echocardiography Report [address] [address], [place] [address] Pat.Name:SONAM BERMEO Pat.ID:[id number] .Date: 12/30/2017 Refer.MD:JAYDEN JANSEN MD Exam Time: 9:20:00 AMStudy Type:Routine Echo Height:63inBSA: 1.73 m2 DOBAge:1985,32Y Sex: FEMALE BP:111/79HR: 103 bpm Sonogrphr: Aby Castro, RDCS, RVTPat. Stat.:[address] Status:Final Echo Event ID:[id number] Order ID:[id number] Reason for Study:CHF History / Clinical:Congestive Heart [...] RAPof 10 mmHg. MEASUREMENTS: 2D Parasternal Long Bono LVOT 1.8 cmIVSd 1 cm LA Ds4.4 cmLVPWd0.8 cm Ao Rtd 2.5 cmIndex1.5 cm/m LV Onaf506 g(87-129) LVIDd5.6 cmIndex3.2 cm/m LVM Xchlp921.4 g/m2 LVIDs5 cmRWT0.3 LV%fs 10.7 % LV EF Biplane DXCCE555.6 ml (59-136) Yplch958.8 ml/m LV SV 57.6 ml TDQAK981 dqJlgyn53.5 ml/m LV EF 29 %(55-75) LA Sng [...] - 12/30/2017 2:42 PM CDT Echocardiography Report [address] [address] [facility].Name: SONAM BERMEO Rosario.ID: [id number] .Date: 12/30/2017 Refer.MD: JAYDEN JANSEN MD Exam Time: 9:20:00 AM Study Type:Routine Echo Height: 63in BSA: 1.73 m2 Age: 9 1985,32Y Sex: FEMALE BP: 111/79 HR: 103 bpm Sonogrphr: Aby Castro RDCS, RVT Pat. Stat.:Inpatient Room: [address] Study Status:Final Echo Event ID:[id number] Order ID: [id number] Reason for Study:CHF History / Clinical:Congestive Heart [...] of 10 mmHg. MEASUREMENTS: 2D Parasternal Long Bono LVOT 1.8 cm IVSd 1 cm LA [...] M.D. Performing Organization Address City/State/Zipcode Phone Number [facility] [address] [place] [address] * Pv duplex venous lower extremity (12/29/2017 2:10 PM CDT) Specimen Narrative Performed At [facility] Vascular Ultrasound Laboratory Lower Extremity Venous Report [address] [id number] Pat.Name:SONAM BERMEO Lili Pat.ID:[id number] .Date: 12/29/2017 Refer.MD:JAYDEN JANSEN MD Exam Time: 1:53:00 PMStudy Type:LE Venous Height:63inWeight:153lb BSA: 1.73 m2 DOBAge:1985,32Y Sex: FEMALESonogrphr: Hugo Bliss RN, S Pat. Stat.:Inpatient Room:[facility] TapeVol: PM, CPT - 4: 70559 Echo Event ID:[id number] Order ID:[id number] Reason for Study:Bilateral leg edema. Procedures:Colorflow, Grayscale/2D, [...] Vascular Ultrasound Laboratory Lower Extremity Venous Report [address] [address] Pat.Name: SONAM BERMEO Pat.ID: [id number] .Date: 12/29/2017 Refer.MD: JAYDEN JANSEN MD Exam Time: 1:53:00 PM Study Type:LE Venous Height: 63in Weight: 153lb BSA: 1.73 m2 Age: 9 1985,32Y Sex: FEMALE Sonogrphr: Hugo Bliss RN, RVS Pat. Stat.:Inpatient Room: [facility] Tape Vol: PM, CPT - 4: 61036 Echo Event ID:[id number] Order ID: [id number] Reason for Study:Bilateral leg edema. Procedures:Colorflow, Grayscale/2D, [...] Organization Address City/State/Zipcode Phone Number [facility] [address] [place] [address] * XR Shoulder 2+ Vw Left (12/28/2017 [...] Central venous catheter and transthoracic pacemaker present. [facility]-[id number] Procedure Note Interface, Radiology Results Incoming - [...] Central venous catheter and transthoracic pacemaker present. [facility]-[id number] Performing Organization Address [facility]/Zipcode Phone Number [facility] [address] [place] [address] * US Renal (12/28/2017 1:35 PM CDT) Specimen Narrative Performed At EXAMINATION:US RENAL [facility] CLINICAL HISTORY:hydroureter COMPARISON:06/04/2015 IMPRESSION: 1.There is no hydronephrosis. 2.Renal cortical echogenicity is increased suggesting medical renal disease. 3.Right kidney measures 10.2 x 4 x 3.8 cm. 4.Left kidney measures 11.3 x 4.5 x 4.8 cm. 5.Bladder is unremarkable. [facility]-[id number] Procedure Note Interface, Radiology Results Incoming - 12/28/2017 2:43 PM CDT EXAMINATION: US RENAL CLINICAL HISTORY: hydroureter COMPARISON: 06/04/2015 IMPRESSION: 1. There is no hydronephrosis. 2. Renal cortical echogenicity is increased suggesting medical renal disease. 3. Right kidney measures 10.2 x 4 x 3.8 cm. 4. Left kidney measures 11.3 x 4.5 x 4.8 cm. 5. Bladder is unremarkable. [facility]-[id number] Performing Organization Address City/[facility]/Zipcode Phone Number [facility] [address] [place] [address] * Hemoglobin A1c (12/28/2017 5:00 AM CDT) Hemoglobin A1C 6.8 (H) 4.0 - 5.6 % [facility] DEPARTMENT Comment: OF PATHOLOGY HbA1c cutoffs for [...] Blood Performing Organization Address City/State/Zipcode Phone Number [facility] DEPARTMENT OF [address] [place] [address] PATHOLOGY AND GENOMIC MEDICINE * CT Abdomen [...] shift/edema. Correlation to exclude colitis is advised. [facility]-[id number] Procedure Note Hm Interface, Radiology Results Incoming [...] shift/edema. Correlation to exclude colitis is advised. [facility]-[id number] Performing Organization Address City/State/Zipcode Phone Number [facility] [address] [place] [address] * Urinalysis screen and microscopy, with reflex to culture (12/28/2017 3:30 AM CDT) Specimen site Clean catch [facility] DEPARTMENT OF PATHOLOGY AND GENOMIC MEDICINE Color, UA Yellow [facility] DEPARTMENT OF PATHOLOGY AND GENOMIC MEDICINE Appearance, UA Hazy [facility] DEPARTMENT OF PATHOLOGY AND GENOMIC MEDICINE Specific 1.017 1.001 - 1.035 [facility] DEPARTMENT gravity, UA OF PATHOLOGY AND GENOMIC MEDICINE pH, UA 6.0 5.0 - 8.5 [facility] DEPARTMENT OF PATHOLOGY AND GENOMIC MEDICINE Protein, UA 3+ (A) Negative [facility] DEPARTMENT OF PATHOLOGY AND GENOMIC MEDICINE Glucose, UA Negative Negative [facility] DEPARTMENT OF PATHOLOGY AND GENOMIC MEDICINE Ketones, UA Negative Negative [facility] DEPARTMENT OF PATHOLOGY AND GENOMIC MEDICINE Bilirubin, UA Positive@UBIL (A) Negative [facility] DEPARTMENT OF PATHOLOGY AND GENOMIC MEDICINE Blood, UA Small (A) Negative [facility] DEPARTMENT OF PATHOLOGY AND GENOMIC MEDICINE Nitrite, UA Negative Negative [facility] DEPARTMENT OF PATHOLOGY AND GENOMIC MEDICINE Urobilinogen, <2.0 <2.0 [facility] DEPARTMENT UA OF PATHOLOGY AND GENOMIC MEDICINE Leukocyte Moderate (A) Negative [facility] DEPARTMENT esterase, UA OF PATHOLOGY AND GENOMIC MEDICINE Epithelial 1 /HPF [facility] DEPARTMENT cells, UA OF PATHOLOGY AND GENOMIC MEDICINE WBC, UA 129 (H) 0 - 4 /HPF [facility] DEPARTMENT OF PATHOLOGY AND GENOMIC MEDICINE RBC, UA 15 (H) 0 - 5 /HPF [facility] DEPARTMENT OF PATHOLOGY AND GENOMIC MEDICINE Bacteria, UA None seen None seen [facility] DEPARTMENT OF PATHOLOGY AND GENOMIC MEDICINE Yeast, UA Many (A) [facility] DEPARTMENT OF PATHOLOGY AND GENOMIC MEDICINE Yeast with None seen [facility] DEPARTMENT pseudohyphae, OF PATHOLOGY UA AND GENOMIC MEDICINE Hyaline casts, 18 /LPF [facility] UA OF PATHOLOGY AND GENOMIC MEDICINE Specimen Urine Performing Organization Address City/[facility]/Zipcode Phone Number [facility] DEPARTMENT OF [address] [place] [address] PATHOLOGY AND GENOMIC MEDICINE * Gram stain (12/28/2017 3:30 AM CDT) Gram stain Rare WBC's [facility] DEPARTMENT result Rare Budding yeast OF PATHOLOGY Comment: AND GENOMIC Specimen Information MEDICINE Specimen Source: Urine Specimen Site: Clean catch Specimen Urine Performing Organization Address City/[facility]/Zipcode Phone Number [facility] DEPARTMENT OF [address] [place] [address] PATHOLOGY AND GENOMIC MEDICINE * Urine culture (12/28/2017 3:30 AM CDT) Urine culture Marleen glabrata [facility] DEPARTMENT isolate >10-5 cfu/ml OF PATHOLOGY The performance AND GENOMIC characteristics of this assay MEDICINE on this isolate were validated by the Microbiology Laboratory at [facility] [place].This source has not been approved by the U.S. Food and Drug Administration.The results are not intended to be used as the sole means for clinical diagnosis or patient management.The Microbiology Laboratory is authorized under the clinical Laboratory Improvement Amendments of 1988 (CLIA-88) to perform high complexity testing. (A) Comment: Specimen Information Specimen Source: Urine Specimen Site: Clean catch Urine culture Gram positive betsy [facility] DEPARTMENT isolate 10-2 cfu/ml OF PATHOLOGY (A) AND GENOMIC MEDICINE Specimen Urine Antibiotic Method Susceptibility Organism Micafungin BP 0.016 mcg/mL: Susceptible Marleen glabrata Amphotericin B BP 1 mcg/mL: Susceptible Marleen glabrata Posiconazole BP 1 mcg/mL Marleen glabrata Itraconazole BP 1.0 mcg/mL: Resistant Marleen glabrata Fluconazole BP 32 mcg/mL: Susceptible Marleen glabrata Performing Organization Address City/State/Zipcode Phone Number [facility] DEPARTMENT OF [address] [place] [address] PATHOLOGY AND GENOMIC MEDICINE after 10/19/2017 Insurance Type Payer Benefit Subscriber ID Effective Phone Address Plan / Dates Group O GRISEL RECINOS xxxxxxxxx 2016-P [facility] Advance Directives Patient has advance care planning documents, and code status on file. For more i nformation, please contact: Pavel Roberts [address] [place] [id number] Date Inactivated Comments Code Status Date Activated 02/18/2018 8:23 PM Full Code 02/08/2018 4:32 PM Code Status decision reached by: Patient
--- OUTSIDE RECORDS SUMMARY | 2018-10-20 01:08 | XMS REPORT | Clinical Summary ---
Author Author KALYAN [facility] Address Unknown Phone Unavailable Care Team Providers Care Shredding Machine Tender Name Role Phone LonnyGer Jacqueline PCP Allergies [...] Active B complex Take 1 tablet 0 72-jkvaz-L-biot-zinc by mouth (DIALYVITE) [id number] daily. zj-uu-kns-mg Tab 01/14/2019 Active phenytoin (DILANTIN) 100 Take [...] Surgeon PROCEDURE DONE OUTSIDE OR 01/09[facility]2018 [facility] Ahmed, Shamoon, MD Siddiqui, Angela Oliva MD Edema, unspecified type (Primary Dx); ESRD on hemodialysis (HCC); Postoperative wound infection, subsequent encounter; Chest pain, unspecified type; Chronic pain due to trauma; Surgical site infection 01/03/2018 Hospital Cardiology - Encounter 01/23/2018 01/03/2018 Orders Only General Internal Medicine after 10/19/2017 Social History Date Tobacco Use Types Packs/Day [...] ms QTC Calculatio n(Bazett) 452 ms P Ada 61 degrees R Ada 27 degrees T Ada 106 degrees Sinus tachycardi a Nonspecifi c [...] ms QTC Calculatio n(Bazett) 437 ms P Ada 53 degrees R Ada 0 degrees T Ada 174 degrees Sinus tachycardi a with Fusion [...] 12-LEAD STAT 01/03/2018 12:48 AM CDT after 10/19/2017 Results * ARRYTHMIA IMPLANT REPORT - SCAN (01/24/2018 1:40 PM CDT) Narrative Performed At * RHYTHM STRIP - SCAN (01/24/2018 1:40 PM CDT) Narrative Performed At * POC-Glucose meter (01/23/2018 9:24 AM CDT) Only the most recent of 67 results within the time period is included. POC-Glucose Meter 135 (H)Comment: TESTED AT 70 - 110 mg/dL [facility] [address] [facility] [address] Specimen Blood Performing Organization Address City/State/Zipcode Phone Number [place] [phone] [place] [address] [facility] * HEMODIALYSIS INPATIENT (01/22/2018 5:54 [...] [facility] Gram Stain Result 4+ WBCs [facility] Gram Stain Result No organisms seen [facility] Specimen Wound Performing Organization Address City/State/Zipcode Phone Number [facility] [address] [place] [address] [facility] * IR Tunneled Catheter Insertion (01/20/2018 1:02 PM CDT) Only the most recent of 2 results within the time period is included. Specimen Narrative Performed At FINAL REPORT [facility] Tunneled dialysis catheter exchange, partial today History: Renal failure. Nonfunctioning hemodialysis catheter. Unable to aspirate from the right portal Modality: Sonography and fluoroscopy. Sedation: Versed 1.0 mg and fentanyl 50 mcg was given intravenously for conscious sedation.Vital signs were monitored throughout the procedure by a nurse, and remained stable. Physician intra-service time was 20 minutes. Mathematics Faculty Member:Kayla. Candy Roller: Nadia Inman MD. Approach: Right chest tunneled [...] new 19 cm cuff to tip 15.5 Armenian Duraflow two catheter was then advanced over [...] MD Report Verified Date/Time:01/20/2018 17:29:46 Reading Location: [place] [address] Angio Body Reading Room Procedure Note Interface, [...] stable. Physician intra-service time was 20 minutes. Mathematics Faculty Member: Kayla. Candy Roller: Nadia Inman MD. Approach: Right chest tunneled [...] new 19 cm cuff to tip 15.5 Armenian Duraflow two catheter was then advanced over [...] Report Verified Date/Time: 01/20/2018 17:29:46 Reading Location: [place] [address] Angio Body Reading Room Performing Organization Address City/[facility]/Zipcode Phone Number [place] [facility] * PT/aPTT (01/20/2018 5:26 AM CDT) Only the most recent of 5 results within the time period is included. Protime 17.8 (H) 11.7 - 14.7 seconds [facility] INR 1.5 <=5.9 [facility] PTT 36.8 (H) 22.5 - 36.0 seconds [facility] Specimen Blood Narrative Performed At RECOMMENDED COUMADIN/WARFARIN INR THERAPY RANGES [facility] STANDARD DOSE: 2.0 - 3.0 Includes: PROPHYLAXIS for venous thrombosis, [facility] systemic embolization; TREATMENT for venous thrombosis and/or pulmonary embolus. HIGH RISK: Target INR is 2.5-3.5 for patients with mechanical heart valves. Performing Organization Address City/[facility]/Zipcode Phone Number [facility] [address] [place] [address] [phone] [place] [address] * CBC with platelet count + automated diff (01/20/2018 5:26 AM CDT) Only the most recent of 16 results within the time period is included. WBC 4.6 3.5 - 10.5 K/L [facility] RBC 3.04 (L) 3.93 - 5.22 M/L [facility] Hemoglobin 8.4 (L) 11.2 - 15.7 GM/DL [facility] Hematocrit 28.9 (L) 34.1 - 44.9 % [facility] MCV 95.1 (H) 79.4 - 94.8 fL [facility] MCH 27.6 25.6 - 32.2 pg [facility] MCHC 29.1 (L) 32.2 - 35.5 GM/DL [facility] RDW 17.8 (H) 11.7 - 14.4 % [facility] Platelets 169 150 - 450 K/CU MM [facility] MPV 10.8 9.4 - 12.3 fL [facility] nRBC 0 0 - 0 /100 WBC [facility] % Neutros 77 % [facility] % Lymphs 16 % [facility] % Monos 3 % [facility] % Eos 2 % [facility] % Baso 1 % [facility] # Neutros 3.51 1.56 - 6.13 K/L [facility] # Lymphs 0.75 (L) 1.18 - 3.74 K/L [facility] # Monos 0.13 (L) 0.24 - 0.36 K/L [facility] # Eos 0.11 0.04 - 0.36 K/L [facility] # Baso 0.03 0.01 - 0.08 K/L [facility] Immature 1 0 - 1 % [facility] Granulocytes-Relative [facility] Specimen Blood Performing Organization Address City/[facility]/Zipcode Phone Number [address] * Vancomycin level, random (01/20/2018 5:26 AM CDT) Only the most recent of 4 results within the time period is included. Vancomycin Rm 19.5 ug/mL [facility] Specimen Blood Narrative Performed At Reference Range: No Normals [facility] Performing Organization Address [facility] Phone Number [address] * TRANSFUSION SERVICE REPORT - SCAN (01/18/2018 6:00 PM CDT) Only the most recent of 2 results within the time period is included. Narrative Performed At * Phosphorus (01/18/2018 9:35 AM CDT) Phosphorus 2.4 2.3 - 4.7 mg/dL [facility] Specimen Blood Performing Organization Address City/[facility] Phone Number [address] * Magnesium (01/18/2018 9:35 AM CDT) Only the most recent of 2 results within the time period is included. Magnesium 1.7 1.6 - 2.6 mg/dL [facility] Specimen Blood Performing Organization Address City/[facility]/Zipcode Phone Number [address] * Basic metabolic panel (01/18/2018 9:35 AM CDT) Only the most recent of 16 results within the time period is included. Sodium 135 (L) 136 - 145 meq/L [facility] Potassium 3.2 (L) 3.5 - 5.1 meq/L [facility] Chloride 99 98 - 107 meq/L [facility] CO2 29 22 - 29 meq/L [facility] BUN 13 7 - 21 mg/dL [facility] Creatinine 2.07 (H) 0.57 - 1.25 mg/dL [facility] Glucose 135 (H) 70 - 105 mg/dL [facility] Calcium 7.8 (L) 8.4 - 10.2 mg/dL [facility] EGFR 34Comment: ESTIMATED GFR IS mL/min/1.73 sq m [facility] NOT ACCURATE CREATININE [facility] CLEARANCE IN PREDICTING GLOMERULAR FILTRATION RATE. ESTIMATED GFR IS NOT APPLICABLE FOR DIALYSIS PATIENTS. Specimen Blood Performing Organization Address City/State/Zipcode Phone Number [facility] [address] [place] [address] [facility] * Prepare Leuko-Red & Irrad RBC (01/17/2018 11:54 PM CDT) CROSSMATCH COMPATIBLE [place] Unit ABO O Pos [place] [place] UNIT NUMBER [id number] [place] Status TRANSFUSED [place] [place] Blood Bank Product RED BLOOD CELLS [place] PRODUCT CODE [id number] [place] Specimen Other Performing Organization Address City/State/Zipcode Phone Number [place] * CT upper extremity with contrast right (01/17/2018 9:24 PM CDT) Specimen Narrative Performed At FINAL REPORT [facility], EXTREMITY, UPPER, WITH CONTRAST, RIGHT, CT, [...] MD Report Verified Date/Time:01/17/2018 22:06:08 Reading Location: [facility] C0[facility] Transitional Reading Room Procedure Note Interface, External [...] Report Verified Date/Time: 01/17/2018 22:06:08 Reading Location: [facility] B1 C013T Transitional Reading Room Performing Organization Address City/State/Zipcode Phone Number [facility] * CT upper extremity with contrast left (01/17/2018 9:24 PM CDT) Specimen Narrative Performed At FINAL REPORT [facility] CT, EXTREMITY, UPPER, WITH CONTRAST, RIGHT, CT, [...] MD Report Verified Date/Time:01/17/2018 22:06:08 Reading Location: [address] Transitional Reading Room Procedure Note Interface, [...] Report Verified Date/Time: 01/17/2018 22:06:08 Reading Location: [address] Transitional Reading Room Performing Organization Address City/State/Zipcode Phone Number [facility] * CT chest without IV contrast (01/16/2018 11:42 PM CDT) Specimen Narrative Performed At FINAL REPORT [facility] CT, CHEST, WITHOUT CONTRAST INDICATION: Chest pain [...] MD Report Verified Date/Time:01/16/2018 23:55:03 Reading Location: [address] Reading Room Procedure Note Interface, External [...] Report Verified Date/Time: 01/16/2018 23:55:03 Reading Location: [address] Reading Room Performing Organization Address City/[facility] Phone Number [place] [facility] * Transfuse Leuko-Red & Irrad RBC (01/16/2018 3:05 PM CDT) Only the most recent of 2 results within the time period is included. * Type and screen, automated (01/16/2018 12:17 PM CDT) ABO/RH AUTOMATED (BEAKER) O POSITIVE [facility] Ab Scrn NEGATIVE [facility] Specimen Blood Performing Organization Address [facility] Phone Number [facility] [address] [place] [address] MEDICAL CENTER * CBC (Hemogram only) (01/16/2018 4:01 AM CDT) WBC 3.7 3.5 - 10.5 K/L [facility] RBC 2.49 (L) 3.93 - 5.22 M/L [facility] Hemoglobin 6.9 (L) 11.2 - 15.7 GM/DL [facility] Hematocrit 24.0 (L) 34.1 - 44.9 % [facility] MCV 96.4 (H) 79.4 - 94.8 fL [facility] MCH 27.7 25.6 - 32.2 pg [facility] MCHC 28.8 (L) 32.2 - 35.5 GM/DL [facility] RDW 18.7 (H) 11.7 - 14.4 % [facility] Platelets 152 150 - 450 K/CU MM [facility] MPV 10.8 9.4 - 12.3 fL [facility] nRBC 0 0 - 0 /100 WBC [facility] Specimen Blood Performing Organization Address City/State/Zipcode Phone Number [facility] [address] [place] [address] MEDICAL CENTER * XR chest [...] MD Report Verified Date/Time:01/14/2018 22:17:24 Reading Location: [facility] Reading Room Procedure Note Interface, External [...] Report Verified Date/Time: 01/14/2018 22:17:24 Reading Location: [facility] Reading Room Performing Organization Address City/State/Zipcode Phone Number [facility] * Clostridium difficile [facility] Toxin (01/14/2018 2:05 AM CDT) C. Difficle Toxin Negative Negative [facility] C. Difficile [facility] Antigen Positive (A)Comment: C. Negative [facility] difficile present but toxin [facility] not detected. Indicates colonization with non-toxigenic strain or level of toxin below detectable levels. No need for enteric isolation. Treatment is rarely needed (only when strong clinical suspicion for Clostridium difficile infection) Specimen Stool Narrative Performed At Testing performed by [employer] Rapid Cassette Assay.For [facility], published [facility] sensitivity of the assay is 98.7% compared to cytotoxicity testing.For Toxin [facility] AB, published sensitivity is 87.8% and specificity 99.4% compared to cytotoxicity testing. Verification of kit performance was done by the [facility] Microbiology Lab prior to clinical use. Performing Organization Address City/[facility]/Zipcode Phone Number [facility] [address] [place] [address] [facility] * HEMODIALYSIS INPATIENT (01/13/2018 12:44 [...] [facility] Specimen Blood Performing Organization Address City/[facility]/Zipcode Phone Number [facility] [address] [place] [address] [facility] * CT brain without IV contrast (01/11/2018 12:53 PM CDT) Specimen Narrative Performed At FINAL REPORT [facility] CT head without contrast 01/11/2018 1:34 PM [...] MD Report Verified Date/Time:01/11/2018 13:35:22 Reading Location: [facility] B1 C013X Ortho Consult Reading Room Procedure [...] Report Verified Date/Time: 01/11/2018 13:35:22 Reading Location: [facility] B1 C013X Ortho Consult Reading Room Performing Organization Address City/State/Zipcode Phone Number RIS * Hemoglobin and hematocrit (01/10/2018 6:15 PM CDT) Hemoglobin 8.4 (L) 11.2 - 15.7 GM/DL [facility] Hematocrit 28.5 (L) 34.1 - 44.9 % [facility] Specimen Blood Performing Organization Address City/[facility] Phone Number [facility] [address] [place] [address] [facility] * Vancomycin level, trough (01/10/2018 3:09 PM CDT) Vancomycin Tr 12.4 10.0 - 20.0 ug/mL [facility] Specimen Blood Narrative Performed At Send after dialysis please [facility] Performing Organization Address [facility] Phone Number [facility] [address] [place] [address] [facility] * ECG 12 lead (01/10/2018 7:31 AM CDT) Only the most recent of 2 results within the time period is included. Specimen Narrative Performed At Ventricular Rate 123 BPM GE MUSE Atrial Rate 123 BPM P-R Interval 164 ms QRS Duration 88 ms Q-T Interval 316 ms QTC Calculation(Bazett) 452 ms P Ada 61 degrees R Ada 27 degrees T Ada 106 degrees Sinus tachycardia Nonspecific T wave [...] 316 ms QTC Calculation(Bazett) 452 ms P Ada 61 degrees R Ada 27 degrees T Ada 106 degrees Sinus tachycardia Nonspecific T wave abnormality Prolonged QT Abnormal ECG When compared with ECG of 03-JAN-2018 00:48, Fusion complexes are no longer Present Confirmed by Charlene KELLOGG BASANT ([id number]) on 01/12/2018 8:44:48 PM Performing Organization Address City/[facility] Phone Number [facility] * XR chest 1 view portable / bedside (01/10/2018 5:28 AM CDT) Only the most recent of 2 results within the time period is included. Specimen Narrative Performed At FINAL REPORT [employer] Chest one view. Clinical history: SOB post [...] MD Report Verified Date/Time:01/10/2018 06:32:36 Reading Location: [address] Body Reading Room Procedure Note [...] Report Verified Date/Time: 01/10/2018 06:32:36 Reading Location: [facility] C0[facility] CT Body Reading Room Performing Organization Address City/[facility] Phone Number [facility] * C-Reactive Protein (01/10/2018 4:34 AM CDT) Only the most recent of 2 results within the time period is included. CRP 2.35 (H) 0.00 - 0.50 mg/dL [facility] Specimen Blood Performing Organization Address City/State/Zipcode Phone Number [facility] [address] [place], [place] [id number] [facility] * Lactic acid, venous, whole blood (01/10/2018 4:23 AM CDT) Lactate, Venous 2.7 (H) 0.5 - 2.2 mmol/L [facility] Specimen Blood Narrative Performed At Effective 08/17/2015: Units/Reference Range Change [facility] New: 0.5-2.2 mmol/LPrevious: 5-20 mg/dL [facility] Performing Organization Address City/[facility]/Zipcode Phone Number [facility] [address] [place] [address] [facility] * IR Tunneled Catheter Exchange [...] MD Report Verified Date/Time:01/09/2018 19:06:03 Reading Location: [place] [address] Angio Body Reading Room Procedure Note Interface, [...] Report Verified Date/Time: 01/09/2018 19:06:03 Reading Location: [facility] P048 Angio Body Reading Room Performing Organization Address City/State/Zipcode Phone Number [facility] * hCG, quantitative, (01/09/2018 4:08 AM CDT) hCG Quant <1 0 - 10 mIU/mL [facility] Specimen Blood Narrative Performed At Non- Females: <10 mIU/mL [facility] Females: [facility] Gestation AgeReference Range(mIU/mL) 0.2-1 Week5-50 1-2 Gapvp08-314 2-3 Weeks 100-5,000 3-4 Weeks 500-10,000 4-5 Weeks 1,000-50,000 5-6 Weeks10,000-100,000 6-8 Weeks15,000-200,000 2-3 Months 10,000-100,000 Performing Organization Address City/[facility]/[place] [address] MEDICAL CENTER * PERMANENT LAB REPORT - SCAN (01/07/2018 11:13 AM CDT) Narrative Performed At * Immunofixation electrophoresis (TONYA) (01/06/2018 4:08 PM CDT) IgG 3,413 (H) 540 - 1,822 mg/dL [facility] IgA 483 63 - 484 mg/dL [facility] IgM 130 22 - 293 mg/dL [facility] Serum TONYA Identification No monoclonal bands detected. [facility] Polyclonal distribution of [facility] immunoglobulins. Pathologist: Belkis Styles MD [facility] (electronic signature) [facility] Specimen Blood Performing Organization Address City/State/Zipcode Phone Number [facility] [address] [place] [address] [facility] * Protein electrophoresis, serum (01/06/2018 4:08 PM CDT) Albumin Fraction 2.6 (L) 3.5 - 5.5 g/dL [facility] Alpha 1 Fraction 0.3 0.2 - 0.4 g/dL [facility] Alpha 2 Fraction 0.8 0.5 - 0.9 g/dL [facility] Beta Fraction 1.0 0.6 - 1.1 g/dL [facility] Gamma Globulin Fraction 3.2 (H) 0.7 - 1.7 g/dL [facility] Interpretation Decreased albumin consistent [facility] with renal protein loss. [facility] Polyclonal elevation of gamma fraction, which may be seen with chronic inflammation and/or recent administration of IVIG. Serum TONYA ordered to exclude presence of small monoclonal protein underlying. Pathologist: Belkis Styles MD [facility] (electronic signature) [facility] Protein, Total 7.8 6.0 - 8.3 gm/dL [facility] Specimen Blood Performing Organization Address City/[facility]/Zipcode Phone Number [facility] [address] [place] [address] [facility] * PTH, intact (01/06/2018 4:08 PM CDT) PTH 80.1 (H) 8.5 - 72.5 pg/mL [facility] Specimen Blood Performing Organization Address City/[facility]/Zipcode Phone Number [facility] [address] [place] [address] MEDICAL CENTER * Lactate dehydrogenase (LDH) (01/06/2018 4:08 PM CDT) LDH 171 125 - 220 U/L [facility] Specimen Blood Performing Organization Address City/State/Zipcode Phone Number [facility] [address] [place] [address] MEDICAL CENTER * XR shoulder [...] MD Report Verified Date/Time:01/05/2018 10:47:29 Reading Location: [address] Transitional Reading Room Procedure Note Interface, [...] Report Verified Date/Time: 01/05/2018 10:47:29 Reading Location: [address] Transitional Reading Room Performing Organization Address City/State/Zipcode Phone Number [facility] * XR elbow 3 views min left (01/05/2018 10:00 AM CDT) Specimen Narrative Performed At FINAL REPORT [facility] LEFT ELBOW 3 VIEWS HISTORY: Left elbow [...] MD Report Verified Date/Time:01/05/2018 10:51:25 Reading Location: [address] Transitional Reading Room Procedure Note Interface, [...] Report Verified Date/Time: 01/05/2018 10:51:25 Reading Location: [address] Transitional Reading Room Performing Organization Address [facility] Phone Number [facility] * XR humerus 2 views left (01/05/2018 10:00 AM CDT) Specimen Narrative Performed At FINAL REPORT [facility] LEFT HUMERUS 2 VIEWS HISTORY: Left arm [...] MD Report Verified Date/Time:01/05/2018 10:55:40 Reading Location: [address] Transitional Reading Room Procedure Note Interface, [...] Report Verified Date/Time: 01/05/2018 10:55:40 Reading Location: [address] [address] Transitional Reading Room Performing Organization Address [facility] Phone Number RIS * HEMODIALYSIS INPATIENT (01/03/2018 [...] [facility] Specimen Blood Performing Organization Address City/[facility]/Zipcode Phone Number [address] * Hemoglobin A1c (01/03/2018 9:16 AM CDT) Hemoglobin A1C 6.0 4.3 - 6.1 % [facility] Specimen Blood Performing Organization Address City/[facility]/Zipcode Phone Number [address] * ED ECG Interpretation (01/03/2018 6:35 AM CDT) Narrative Performed At Meghan Montiel MD 01/03/20186:35 AM ECG/EKG Interpretation Date/Time: 01/03/2018 5:09 AM Performed by: MEGHAN MONTIEL Authorized by: MEGHAN MONTIEL The ECG was interpreted by ED physician. The ECG is interpreted as sinus rhythm. Rate is tachycardic. Ada is normal. Clinical Impression: non-specific ECGECG reviewed and does not meet STEMI criteria. Patient tolerance: Patient tolerated the procedure well with no immediate complications * Urinalysis w/ Microscopic (01/03/2018 4:24 AM CDT) Color, UA Yellow [facility] Clarity, UA Hazy [facility] Specific [place], UA 1.016 1.001 - 1.035 [facility] pH, UA 6.0 5.0 - 8.0 [facility] Protein, UA 300 mg/dL (A) Negative [facility] Glucose, UA Negative Negative [facility] Ketones, UA Negative Negative [facility] Bilirubin, UA Negative Negative [facility] Blood, UA Moderate (A) Negative [facility] Nitrite, UA Negative Negative [facility] Leukocytes, UA Large (A) Negative [facility] Urobilinogen, UA 0.2 0.2 - 1.0 mg/dL [facility] RBC, UA 104 /HPF [facility] WBC, UA 57 /HPF [facility] Bacteria, UA Few [facility] Hyaline Casts, UA 27 /LPF [facility] Granular Casts, UA 4 /LPF [facility] Amorphous Crystals Occasional [facility] Specimen Source Urine, Straight Catheter [facility] Specimen Urine - Urine, Straight Catheter Performing Organization Address City/[facility] Phone Number [facility] [address] [place] [address] MED[facility]ENTER * Troponin I (01/03/2018 1:09 AM CDT) Troponin I 0.02 0.00 - 0.03 ng/mL [facility] Specimen Blood Narrative Performed At Troponin I (TnI) levels must be interpreted in the context of the presenting [facility] symptoms and the clinical findings. Elevated TnI levels indicate myocardial [facility] damage, but are not specific for ischemic heart disease. Elevated TnI levels are seen in patients with other cardiac conditions (including myocarditis and congestive heart failure), and slight TnI elevations occur in patients with other conditions, including sepsis, renal failure, acidosis, acute neurological disease, and persistent tachyarrhythmia. Performing Organization Address City/[facility] [place] [address] [phone] * B-type natriuretic peptide (01/03/2018 1:09 AM CDT) BNP 3,706 (H) 0 - 100 pg/mL [facility] Specimen Blood Performing Organization Address City/[facility] Phone Number [place] [phone] * Lipase (01/03/2018 1:09 AM CDT) Lipase 7 (L) 8 - 78 U/L [facility] Specimen Blood Performing Organization Address [facility] Phone Number [place] [phone] * Amylase (01/03/2018 1:09 AM CDT) Amylase 47 25 - 125 U/L [facility] Specimen Blood Performing Organization Address [facility] Phone Number [place] [phone] * Hepatic function panel (01/03/2018 1:09 AM CDT) Protein, Total 7.9 6.0 - 8.3 gm/dL [facility] Albumin 2.4 (L) 3.5 - 5.0 g/dL [facility] Total Bilirubin 0.5 0.2 - 1.2 mg/dL [facility] Bilirubin, Direct 0.3 0.1 - 0.5 mg/dL [facility] Alkaline Phosphatase 133 40 - 150 U/L [facility] AST 7 5 - 34 U/L [facility] ALT 6 6 - 55 U/L [facility] Specimen Blood Performing Organization Address [facility] Cent[facility]ode Phone Number [address] [phone] MEDICAL [facility]ENTER after 10/19/2017 Insurance Payer Benefit Subscriber ID Type Phone Address Plan / Group [employer] MEDICAID MEDICAID xxxxxxxxx [place] MED[place]ID - MEDICAID MGD MEDICAID xxxxxxxxx Medicaid CARE [place] Non-Contra NONCONTRAC cted EMILY Advance Directives For more information, please contact: [facility] [address], [place] [id number] Date Inactivated Comments Code Status Date Activated 01/23/2018 6:21 PM Full Code 01/03/2018 7:16 AM This code status was determined by: Patient
--- OUTSIDE RECORDS SUMMARY | 2018-10-20 01:20 | XMS REPORT | Continuity of Care Document ---
Author Author [employer] Organization [employer] Address Unknown Phone Unavailable Care Team Providers Care Pompom Maker Name Role Phone [employer] Unavailable Unavailable Problems Problem Status Onset Date Classification Date Reported Comments Source OTHER Active 08/30/2015 [facility]: UTI 06/21/2015 06/24/2015 [facility] Discharge Diagnosis: Chest pain, unspecified 06/21/2015 06/24/2015 [facility] VOMITING CHEST PAIN Active 06/21/2015 [facility] Discharge Diagnosis: Drug-seeking behavior 05/05/2015 05/08/2015 [facility] Discharge Diagnosis: Chronic cystitis 05/05/2015 05/08/2015 [facility] Discharge Diagnosis: Acute Hyperglycemia 05/05/2015 05/08/2015 [facility] Discharge Diagnosis: Noncompliance 05/05/2015 05/08/2015 [facility] Discharge Diagnosis: Chronic abdominal pain 05/05/2015 05/08/2015 [facility] NAUSEA Active 05/05/2015 [facility] Discharge Diagnosis: Nausea, vomiting and diarrhea 04/26/2015 04/29/2015 [facility] Discharge Diagnosis: Chronic renal insufficiency 04/26/2015 04/29/2015 [facility] Discharge Diagnosis: Abdominal pain, chronic, generalized 04/26/2015 04/29/2015 [facility] HEADACHE Active 04/24/2015 [facility] HYPERTENSION Active 03/16/2015 [facility] DIARRHEA/VOMITING Active 03/08/2015 [facility] VOMITING Active 02/23/2015 [facility] PYELONEPHRITIS Active 02/23/2015 [facility] Discharge Diagnosis: HTN 01/25/2015 01/28/2015 [facility] Discharge Diagnosis: Acute on chronic renal failure 01/25/2015 01/28/2015 [facility] Discharge Diagnosis: Nausea and vomiting 01/25/2015 01/28/2015 [facility] Dis[facility] Diagnosis: Acute UTI 01/25/2015 01/28/2015 [facility] CHEST/HEAD HURT/RASH Active 12/12/2014 [facility] Dis[facility] Diagnosis: Abdominal pain 08/14/2014 08/17/2014 [facility] Discharge Diagnosis: Hypertension 08/14/2014 08/17/2014 [facility] Discharge Diagnosis: Vomiting and diarrhea 08/14/2014 08/17/2014 [facility] ABD PAIN/V/D Active 08/13/2014 [facility] Discharge Diagnosis: Acute vomiting 08/10/2014 08/16/2014 [facility] UNABLE TO URINATE Active 08/09/2014 [facility] HEAD INJURY SAT - CONCUSSION SX Active 07/07/2014 [facility] SYNCOPE Active 07/07/2014 [facility] MEMORY LOSS, BLOOD IN STORE, BOD Y PAIN Active 07/06/2014 [facility] Discharge Diagnosis: UTI 07/06/2014 07/09/2014 [facility] Discharge Diagnosis: Hyperglycemia 07/06/2014 07/09/2014 [facility] Discharge Diagnosis: Hyperglycemia without ketosis 06/04/2014 06/07/2014 [facility] Discharge Diagnosis: Nausea & vomiting 06/04/2014 06/07/2014 [facility] URINARY PROBLEMS/CHEST HURTS 4 DAYS Active 06/04/2014 [facility] Discharge Diagnosis: Acute UTI 05/14/2014 05/16/2014 [facility] Discharge Diagnosis: Nausea vomiting and diarrhea 05/14/2014 05/16/2014 [facility] Discharge Diagnosis: Headache, acute 05/14/2014 05/16/2014 [facility] DIARRHEA/PAIN EVERYWHERE Active 05/09/2014 [facility] Discharge Diagnosis: Otitis externa of left ear 03/21/2014 03/23/2014 [facility] Discharge Diagnosis: Acute Hyperglycemia 03/21/2014 03/23/2014 [facility] Discharge Diagnosis: Abdominal pain, recurrent 03/21/2014 03/23/2014 [facility] Discharge Diagnosis: Otalgia of left ear 03/21/2014 03/23/2014 [facility] 225.2 - HENNY BRENDAN CEREBR Active 03/18/2014 [facility] EAR PAIN Active 03/07/2014 [facility] RASH Active 01/29/2014 [facility] LABS Active 12/08/2013 [facility] Chronic tension-type headache2 Active 10/29/2013 Problem 06/24/2015 Data migrated from [employer] on 12/07/14. [facility] LOSSING BLOOD IN URINE, BLEEDING OUT OF Active 10/26/2013 [facility] NAUSEA; ABD PAIN Active 10/22/2013 [facility] Discharge Diagnosis: Tension headache 10/22/2013 10/25/2013 [facility] Discharge Diagnosis: Vomiting 10/12/2013 10/15/2013 [facility] Discharge Diagnosis: Pelvic pain in female 09/26/2013 09/29/2013 [facility] ABD PAIN, DIZZINESS Active 09/21/2013 [facility] Discharge Diagnosis: Acute anal fissure 09/21/2013 09/24/2013 [facility] Dis[facility] Diagnosis: Constipation 09/21/2013 09/24/2013 [facility] ABDOMINAL PAIN Active 09/19/2013 [facility] ABD PAIN, VOMITING Active 09/12/2013 [facility] LEFT SIDE NUMB 1 WEEK Active 08/28/2013 [facility] POSSIBLE PITUITARY HEMORRHAGE Active 08/28/2013 [facility] NAUSEA AND HEADACHE Active 07/29/2013 [facility] Dis[facility] Diagnosis: Diarrhea 07/28/2013 08/03/2013 [facility] VOMITING, HEADACHE, WEAKNESS Active 07/28/2013 [facility] Dis[facility] Diagnosis: Urinary tract infection 07/17/2013 07/19/2013 [facility] SEVERE ABDOMINAL PAIN/ RIGHT SIDE WEAKNE Active 10/15/2012 [facility] N/V Active 10/15/2012 [facility] Anemia Active Problem 06/24/2015 [facility] Anxiety Active Problem 06/24/2015 [facility] Bladder dysfunction Resolved Problem 06/24/2015 [facility] Catheter1 Resolved Problem 06/24/2015 straight caths 4X/daily [facility] Chronic back pain Active Problem 06/24/2015 [facility] Chronic kidney disease , stage III (moderate)(Confirmed) Resolved Problem 06/24/2015 [facility] Diabetes Active Problem 06/24/2015 [facility] DM - Diabetes mellitus Active Problem 06/24/2015 [facility] Finding of palpation of heart Active Problem 06/24/2015 [facility] Gastroparesis Active Problem 06/24/2015 [facility] HTN (Confirmed) Resolved Problem 03/01/2015 [facility] HTN - Hypertension Active Problem 06/24/2015 [facility] HTN (Confirmed) Active Problem 06/24/2015 [facility] Hypothyroidism Active Problem 06/24/2015 [facility] IBS (Confirmed) Active Problem 06/24/2015 [facility] Neurogenic bladder Active Problem 06/24/2015 [facility] Palpitations Active Problem 06/24/2015 [facility] Pituitary cyst3, 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 edema [facility] SEPSIS DUE TO UNSPECIFIED STAPHYLOCOCCUS Active [facility] ACUTE TUBULO-INTERSTITIAL NEPHRITIS Active [facility] HYPERTENSION SECONDARY TO OTHER RENAL DI Active [facility] ESSENTIAL (PRIMARY) HYPERTENSION Active [facility] NAUSEA WITH VOMITING Active [facility] PYELONEPHRITIS NOS Active [facility] SYNCOPE AND COLLAPSE Active [facility] GASTROPARESIS Active [facility] CHRONIC KIDNEY DIS NOS Active [facility] ADMINISTRTVE ENCOUNT NOS Active [facility] Medications Medication Details Route Status Patient Instructions Ordering Provider Order Date Source Morphine 4 mg, Route: IVP, Drug form: INJ, ONCE, Dosing Weight 63.807, kg, Priority: STAT, Start date: 06/21/15 18:20:00, Stop date: 06/21/15 18:20:00 Inactive 06/22/2015 [facility] ciprofloxacin 500 mg oral tablet 500 mg=1 tab, PO, Q12H, for UTI, X 3 day, # 6 tab, 0 Refill(s) Active 06/22/2015 [facility] Rocephin 1 gm, Route: IVPB, ONCE, Dosing Weight 63.807, kg, Priority: STAT, Start date: 06/21/15 17:30:00, Stop date: 06/21/15 17:30:00Notes: (Same As: Rocephin). Use with 100 mL NS and infuse over 30 min MEDICATION WASTE Product Size: 1000 mg Product Wasted: ___ mg Inactive 06/21/2015 [facility] Sodium Chloride 0.154 MEQ/ML Injectable Solution 500 mL, 500 ml/hr, Infuse Over: 1 hr, Route: IV, 500, Drug form: INJ, ONCE, Priority: STAT, Dosing Weight 63.807 kg, Start date: 06/21/15 16:20:00, Duration: 1 doses or times, Stop date: 06/21/15 16:20:00 Inactive 06/21/2015 [facility] Phenergan 12.5 mg, 50 mL, Route: IVPB, Drug form: SOLN, ONCE, Dosing Weight 63.807, kg, Priority: STAT, Start date: 06/21/15 16:19:00, Stop date: 06/21/15 16:19:00 Inactive 06/21/2015 [facility] Benadryl 12.5 mg, 0.25 mL, Route: IVP, Drug form: INJ, ONCE, Dosing Weight 63.807, kg, Priority: STAT, Start date: 06/21/15 16:19:00, Stop date: 06/21/15 16:19:00Notes: (Same as: Benadryl) Inactive 06/21/2015 [facility] Morphine 4 mg, 1 mL, Route: IVP, Drug form: INJ, ONCE, Dosing Weight 63.807, kg, Priority: STAT, Start date: 06/21/15 16:18:00, Stop date: 06/21/15 16:18:00Notes: (Same as:MORPhine Sulfate) Inactive 06/21/2015 [facility] Saline Flush 0.9% 10 mL, Route: IVP, Drug Form: INJ, Dosing Weight 63.807, kg, PRN, PRN Line Flush, Start date: 06/21/15 16:18:00, Duration: 30 day, Stop date: 07/21/15 17:17:00Notes: (Same as: BD Posiflush) Inactive 06/21/2015 [facility] Acetaminophen 300 MG / Codeine Phosphate 60 MG Oral Tablet 1 tab, PO, Q6H, X 3 day, # 12 tab, 0 Refill(s) Active 05/05/2015 [facility] Dicyclomine 20 mg, 2 mL, Route: IM, Drug form: INJ, ONCE, Dosing Weight 61.364, kg, Priority: STAT, Start date: 05/05/15 13:04:00, Stop date: 05/05/15 13:04:00Notes: (Same as: Bentyl) Inactive 05/05/2015 [facility] Insulin regular 12 unit, 0.12 mL, Route: [...] Expires in days from Date Inactive 05/05/2015 [facility] Morphine 2 mg, 1 mL, Route: IVP, Drug form: INJ, ONCE, Dosing Weight 61.364, kg, Priority: STAT, Start date: 05/05/15 10:41:00, Stop date: 05/05/15 10:41:00Notes: (Same as:MORPhine Sulfate) Inactive 05/05/2015 [facility] Saline Flush 0.9% 10 mL, Route: IVP, Drug Form: INJ, Dosing Weight 61.364, kg, PRN, PRN Line Flush, Start date: 05/05/15 10:41:00, Duration: 30 day, Stop date: 06/04/15 10:40:00Notes: (Same as: BD Posiflush) Inactive 05/05/2015 [facility] Diphenhydramine 25 mg, 0.5 mL, Route: IM, Drug form: INJ, ONCE, Dosing Weight 61.364, kg, Priority: STAT, Start date: 05/05/15 10:41:00, Stop date: 05/05/15 10:41:00Notes: (Same as: Benadryl) Inactive 05/05/2015 [facility] Promethazine 12.5 mg, 50 mL, Route: IVPB, Drug form: SOLN, ONCE, Dosing Weight 61.364, kg, Priority: STAT, Start date: 05/05/15 10:41:00, Stop date: 05/05/15 10:41:00 Inactive 05/05/2015 [facility] Sulfamethoxazole 800 MG / Trimethoprim 160 MG Oral Tablet [Bactrim] 1 tab, PO, BID, X 10 day, # 20 tab, 0 Refill(s) Active 04/27/2015 [facility] digoxin 125 mcg (0.125 mg) oral tablet 125 microgram=1 tab, PO, BID, # 28 tab, 0 Refill(s) Active 04/27/2015 [facility] labetalol 100 mg oral tablet 100 mg=1 tab, PO, BID, # 28 tab, 0 Refill(s) Active 04/27/2015 [facility] Phenergan 12.5 mg, Route: IVPB, ONCE, Dosing Weight 60.909, kg, Priority: STAT, Start date: 04/26/15 19:16:00, Stop date: 04/26/15 19:16:00 Inactive 04/27/2015 [facility] Morphine 2 mg, Route: IVP, Drug form: INJ, ONCE, Dosing Weight 60.909, kg, Priority: STAT, Start date: 04/26/15 19:16:00, Stop date: 04/26/15 19:16:00 Inactive 04/27/2015 [facility] Labetalol 20 mg, 4 mL, Route: IVP, Drug form: INJ, ONCE, Dosing Weight 60.909, kg, Priority: STAT, Start date: 04/26/15 18:07:00, Stop date: 04/26/15 18:07:00Notes: (Same as: Normodyne, Trandate) Push over 2 minutes Give bolus over 2-3 minutes. Inactive 04/27/2015 [facility] Benadryl 25 mg, 0.5 mL, Route: IVP, Drug form: INJ, ONCE, Dosing Weight 60.909, kg, Priority: STAT, Start date: 04/26/15 18:07:00, Stop date: 04/26/15 18:07:00Notes: (Same as: Benadryl) Inactive 04/27/2015 [facility] Metoclopramide 10 mg, 2 mL, Route: IVP, Drug form: INJ, ONCE, Dosing Weight 60.909, kg, Priority: STAT, Start date: 04/26/15 18:07:00, Stop date: 04/26/15 18:07:00Notes: (Same as: Reglan) Inactive 04/27/2015 [facility] Sodium Chloride 0.154 MEQ/ML Injectable Solution 250 mL, 1000 ml/hr, Infuse Over: 15 minutes, Route: IV, 250, Drug form: INJ, ONCE, Priority: STAT, Dosing Weight 60.909 kg, Start date: 04/26/15 18:07:00, Duration: 1 doses or times, Stop date: 04/26/15 18:07:00 Inactive 04/27/2015 [facility] Saline Flush 0.9% 10 mL, Route: IVP, Drug Form: INJ, Dosing Weight 60.909, kg, PRN, PRN Line Flush, Start date: 04/26/15 18:07:00, Duration: 30 day, Stop date: 05/26/15 18:06:00Notes: (Same as: BD Posiflush) No Longer Active 04/27/2015 [facility] digoxin 125 mcg (0.125 mg) oral tablet 125 microgram=1 tab, PO, Daily, # 30 tab, 0 Refill(s) Active 03/19/2015 [facility] Sucralfate 100 MG/ML Oral Suspension 1 gm=10 ml, PO, Before Meals & Bedtime, # 200 ml, 1 Refill(s) Active 03/19/2015 [facility] 24 HR Nifedipine 90 MG Extended Release Tablet 90 mg=1 tab, PO, Daily, # 90 tab, 0 Refill(s) Active 03/19/2015 [facility] metoprolol tartrate 100 mg oral tablet 100 mg=1 tab, PO, BID, # 180 tab, 0 Refill(s) Active 03/19/2015 [facility] 24 HR Isosorbide Mononitrate 30 MG Extended Release Tablet [Imdur] 30 mg=1 tab, PO, QAM, # 30 tab, 0 Refill(s) Active 03/19/2015 [facility] bumetanide 1 mg oral tablet 1 mg=1 tab, PO, Daily, 0.5 tab daily if notice leg swelling for 2 days., # 90 tab, 0 Refill(s) Active 03/19/2015 [facility] ferrous sulfate 325 mg oral enteric coated tablet 325 mg=1 tab, PO, Daily, # 90 tab, 0 Refill(s) Active 03/19/2015 [facility] Insulin, Aspart, Human See Instructions, SUB-Q TID-Before Meals, 0 Refill(s) Active 03/19/2015 [facility] Metoclopramide 10 MG Oral Tablet [Reglan] 10 mg=1 tab, PO, QID, # 360 tab, 0 Refill(s) Inactive 03/19/2015 [facility] Levemir 70 unit, SUB-Q, BID, 0 Refill(s) Active 03/19/2015 [facility] Digoxin 0.25 mg, 1 tab, Route: PO, Drug form: TAB, Daily, Dosing Weight 60.4, kg, Start date: 03/19/15 9:00:00, Duration: 30 day, Stop date: 04/17/15 9:00:00Notes: Take on an Empty Stomach (Same as: Lanoxin) Inactive 03/19/2015 [facility] Phenergan 25 mg, 1 tab, Route: PO, Drug form: TAB, Q4H, Dosing Weight 60.4, kg, PRN Nausea & Vomiting, Start date: 03/19/15 7:44:00, Duration: 30 day, Stop date: 04/18/15 7:43:00Notes: (Same as: Phenergan) Inactive 03/19/2015 [facility] MS Contin 15 mg, 1 tab, Route: PO, Drug form: ERTAB, Q6H, Dosing Weight 60.4, kg, PRN Pain Score 7-10, Start date: 03/19/15 7:43:00, Duration: 30 day, Stop date: 04/18/15 7:42:00Notes: Do not crush (Same as:Or amorph SR, MS Contin) Inactive 03/19/2015 [facility] 72 HR Scopolamine 0.0139 MG/HR Transdermal Patch 1 patch, Route: TOP, Drug Form: ERFILM, Dosing Weight 60.4, kg, Q72H, Start date: 03/17/15 22:00:00, Duration: 30 day, Stop date: 04/13/15 22:00:00Notes: Change patch every 72 hours (Same as: Transderm-Scop) No Longer Active 03/18/2015 [facility] Meclizine 25 mg, 1 tab, Route: PO, Drug form: TAB, TID, Dosing Weight 60.4, kg, PRN Dizziness, Start date: 03/17/15 21:50:00, Duration: 30 day, Stop date: 04/16/15 21:49:00Notes: (Same as: Antivert) No Longer Active 03/18/2015 [facility] Magnesium Sulfate 2 gm, 50 mL, Route: IVPB, Drug form: INJ, Q2H, Dosing Weight 60.4, Start date: 03/17/15 20:00:00, Duration: 2 doses or times, Stop date: 03/17/15 22:00:00 Inactive 03/18/2015 [facility] Protonix 40 mg, Route: IV, Drug form: INJ, BID-Before Meals, Dosing Weight 64.148, kg, Start date: 03/17/15 16:30:00, Duration: 30 day, Stop date: 04/16/15 7:30:00Notes: For IV push reconstitute with 10 ml 0.9% sodium chloride and push over 2 minutes. (Same as: Protonix) No Longer Active 03/17/2015 [facility] Benadryl 25 mg, 0.5 mL, Route: IV, Drug form: INJ, QID, Dosing Weight 60.4, kg, PRN as needed for itching, Start date: 03/17/15 15:49:00, Duration: 30 day, Stop date: 04/16/15 15:48:00Notes: (Same as: Benadry l) No Longer Active 03/17/2015 [facility] Morphine 4 mg, 1 mL, Route: IVP, Drug form: INJ, Q4H, Dosing Weight 60.4, kg, PRN Pain Score 7-10, Start date: 03/17/15 15:14:00, Duration: 30 day, Stop date: 04/16/15 15:13:00Notes: (Same as:MORPhine Sulfate) No Longer Active 03/17/2015 [facility] Protonix 40 mg, 1 tab, Route: PO, Drug form: ECTAB, BID- Before Meals, Dosing Weight 64.148, kg, Start date: 03/17/15 11:30:00, Duration: 30 day, Stop date: 04/16/15 7:30:00Notes: Tablet should not be chewed or crushed. (Same as: Protonix) Inactive 03/17/2015 [facility] Metoclopramide 10 MG Oral Tablet [Reglan] 10 mg, 1 tab, Route: PO, Drug form: TAB, QID-Before Meals, Dosing Weight 64.148, kg, Start date: 03/17/15 11:30:00, Duration: 30 day, Stop date: 04/16/15 7:30:00Notes: (Same as: Reglan) Take 30 min before meals No Longer Active 03/17/2015 [facility] Digoxin 250 microgram, 1 mL, Route: IV, Drug form: INJ, Daily, Dosing Weight 64.148, kg, Start date: 03/17/15 11:00:00, Duration: 30 day, Stop date: 04/16/15 9:00:00Notes: (Same as: Lanoxin) No Longer Active 03/17/2015 [facility] Morphine 1 mg, 0.5 mL, Route: IVP, Drug form: INJ, Q2H, Dosing Weight 60.4, kg, PRN Pain Score 7-10, Start date: 03/17/15 10:09:00, Duration: 30 day, Stop date: 04/16/15 10:08:00Notes: (Same as:MORPhine Sulfate) Inactive 03/17/2015 [facility] normal saline 0.9% IV 1,000 mL 1,000 mL, Rate: 150 ml/hr, Infuse over: 6.7 hr, Route: IV, Dosing Weight 60.4 kg, Total Volume: 1,000, Start date: 03/17/15 10:07:00, Stop date: 04/16/15 10:06:00 No Longer Active 03/17/2015 [facility] Phenergan 25 mg, 50 mL, Route: IVPB, Drug form: SOLN, Q6H, Dosing Weight 60.4, kg, PRN as needed for nausea/vomiting, Start date: 03/17/15 10:05:00, Duration: 30 day, Stop date: 04/16/15 10:04:00 No Longer Active 03/17/2015 [facility] meclizine 25 mg oral tablet 25 mg=1 tab, PO, TID, PRN dizziness, 0 Refill(s) Active 03/17/2015 [facility] cefpodoxime 200 mg oral tablet 200 mg=1 tab, PO, Q12H, 0 Refill(s) Active 03/17/2015 [facility] Metoclopramide 10 MG Oral Tablet [Reglan] 10 mg=1 tab, PO, QID, 0 Refill(s) Active 03/17/2015 [facility] 24 HR Nifedipine 90 MG Extended Release Tablet 90 mg, 1 tab, Route: PO, Drug form: ERTAB, Q12H, Dosing Weight 64.148, kg, Start date: 03/17/15 9:00:00, Duration: 30 day, Stop date: 04/15/15 21:00:00 Inactive 03/17/2015 [facility] Lopressor 100 mg, Route: PO, Drug form: TAB, BID, Dosing Weight 64.148, kg, Start date: 03/17/15 9:00:00, Duration: 30 day, Stop date: 04/15/15 17:00:00 Inactive 03/17/2015 [facility] heparin 5,000 unit, 1 mL, Route: SUB-Q, Drug form: INJ, Q12H, Dosing Weight 64.148, kg, Start date: 03/17/15 9:00:00, Duration: 30 day, Stop date: 04/15/15 21:00:00Notes: porcine heparin No Longer Active 03/17/2015 [facility] Isosorbide 30 mg, 1 tab, Route: PO, Drug form: ERTAB, BID, Dosing Weight 64.148, kg, Start date: 03/17/15 9:00:00, Duration: 30 day, Stop date: 04/15/15 17:00:00Notes: (Same as:Imdur) "Do Not Crush" Take on empty stomach/ full glass of water. Do not crush No Longer Active 03/17/2015 [facility] Digoxin 250 microgram, 1 tab, Route: PO, Drug form: TAB, Daily, Dosing Weight 64.148, kg, Start date: 03/17/15 9:00:00, Duration: 30 day, Stop date: 04/15/15 9:00:00Notes: Take on an Empty Stomach (Same as: Lanoxin) Inactive 03/17/2015 [facility] 72 HR Scopolamine 0.0139 MG/HR Transdermal Patch 1 patch, Route: TOP, Drug Form: ERFILM, Dosing Weight 64.148, kg, ONCE, Start date: 03/17/15 7:50:00, Stop date: 03/17/15 7:50:00Notes: Change patch every 72 hours (Same as: Transderm-Scop) Inactive 03/17/2015 [facility] Reglan 10 mg, 2 mL, Route: IVP, Drug form: INJ, Q6H, Dosing Weight 64.148, kg, PRN Nausea & Vomiting, Priority: NOW, Start date: 03/17/15 7:49:00, Duration: 30 day, Stop date: 04/16/15 7:48:00Notes: (Same as: Reglan) No Longer Active 03/17/2015 [facility] Cardene 40 mg in NS 200 mL [...] /1 ml ) No Longer Active 03/17/2015 [facility] Glucagon 1 mg, Route: IM, Drug form: PDR/INJ, PRN, Dosing Weight 64.148, kg, PRN Blood Glucose Results, Start date: 03/17/15 7:39:00, Duration: 30 day, Stop date: 04/16/15 7:38:00 No Longer Active 03/17/2015 [facility] Dextrose 50% Syringe 25 gm, 50 mL, Route: IVP, Drug Form: INJ, Dosing Weight 64.148, kg, PRN, PRN Blood Glucose Results, Start date: 03/17/15 7:39:00, Duration: 30 day, Stop date: 04/16/15 7:38:00 No Longer Active 03/17/2015 [facility] Insulin, Aspart, Human 15 unit, 0.15 mL, [...] days from Date No Longer Active 03/17/2015 [facility] Lopressor 100 mg, 1 tab, Route: PO, Drug form: TAB, BID, Dosing Weight 64.148, kg, Priority: NOW, Start date: 03/17/15 7:36:00, Duration: 30 day, Stop date: 04/15/15 21:00:00Notes: (Same as: Lopressor) No Longer Active 03/17/2015 [facility] 24 HR Nifedipine 90 MG Extended Release Tablet 90 mg, 1 tab, Route: PO, Drug form: ERTAB, Q12H, Dosing Weight 64.148, kg, Priority: NOW, Start date: 03/17/15 7:36:00, Duration: 30 day, Stop date: 04/15/15 21:00:00Notes: (Same as: Procardia XL) "Do Not Crush" "Avoid grapefruit and grapefruit juice" No Longer Active 03/17/2015 [facility] Alprazolam 0.5 mg, 1 tab, Route: PO, Drug form: TAB, TID, Dosing Weight 64.148, kg, PRN Anxiety, Start date: 03/17/15 7:30:00, Duration: 30 day, Stop date: 04/16/15 7:29:00Notes: With food or milk (Same as: Xanax) No Longer Active 03/17/2015 [facility] bumetanide 1 mg oral tablet See Instructions, 0.5 tab PO dailuy when you noticed Leg swelling for 2-3 days, # 30 tab, 0 Refill(s) Active 03/13/2015 [facility] Benadryl 25 mg, 0.5 mL, Route: IVP, Drug form: INJ, QID, Dosing Weight 64.148, kg, PRN as needed for itching, Priority: STAT, Start date: 03/13/15 1:09:00, Duration: 30 day, Stop date: 04/12/15 1:08:00Notes: (Same as: Benadryl) Inactive 03/13/2015 [facility] Bumex 0.5 mg, 0.5 tab, Route: PO, Drug form: TAB, Daily, Dosing Weight 64.148, kg, Start date: 03/12/15 9:00:00, Duration: 30 day, Stop date: 04/10/15 9:00:00Notes: (Same As: Bumex) No Longer Active 03/12/2015 [facility] cefpodoxime 200 mg, 1 tab, Route: PO, Drug form: TAB, Q12H, Dosing Weight 64.148, kg, Start date: 03/11/15 21:00:00, Duration: 30 day, Stop date: 04/10/15 9:00:00Notes: With food. (Same As: Vantin) No Longer Active 03/12/2015 [facility] MS Contin 30 mg, 1 tab, Route: PO, Drug form: ERTAB, Q6H, Dosing Weight 64.148, kg, PRN Pain Score 6-10, Start date: 03/11/15 7:55:00, Duration: 30 day, Stop date: 04/10/15 7:54:00Notes: Do not crush (Same as: Oramorph SR, MS Contin) No Longer Active 03/11/2015 [facility] Benadryl 25 mg, 1 tab, Route: PO, Drug form: TAB, Q6H, Dosing Weight 64.148, kg, PRN Allergies, Start date: 03/11/15 7:55:00, Duration: 30 day, Stop date: 04/10/15 7:54:00 No Longer Active 03/11/2015 [facility] Lasix 20 mg, 2 mL, Route: IVP, Drug form: INJ, Daily, Dosing Weight 64.148, kg, Start date: 03/10/15 11:00:00, Duration: 30 day, Stop date: 04/09/15 9:00:00Notes: (Same as: Lasix) No Longer Active 03/10/2015 [facility] Reglan 10 mg, 2 mL, Route: IVP, Drug form: INJ, Q6H, Dosing Weight 64.148, kg, Start date: 03/09/15 22:00:00, Duration: 30 day, Stop date: 04/08/15 18:00:00Notes: (Same as: Reglan) No Longer Active 03/10/2015 [facility] Insulin Glargine 70 unit, Route: SUB-Q, Drug form: SOLN, Bedtime, Dosing Weight 64.148, kg, Start date: 03/09/15 21:00:00, Duration: 30 day, Stop date: 04/07/15 21:00:00 No Longer Active 03/10/2015 [facility] Levemir FlexPen 70 unit, 0.7 mL, Route: SUB-Q, Drug form: INJ, Bedtime, Start date: 03/09/15 21:00:00, Duration: 30 day, Stop date: 04/07/15 21:00:00Notes: Same as Levemir Do not hold insulin without contacting prescriber "single patient use only" No Longer Active 03/10/2015 [facility] 24 HR Nifedipine 90 MG Extended Release Tablet 90 mg, 1 tab, Route: PO, Drug form: ERTAB, Q12H, Dosing Weight 64.148, kg, Start date: 03/09/15 9:00:00, Duration: 30 day, Stop date: 04/07/15 21:00:00Notes: (Same as: Procardia XL) "Do Not Crush" "Avoid grapefruit and grapefruit juice" No Longer Active 03/09/2015 [facility] 24 HR Metoprolol Tartrate 100 MG Extended Release Tablet [Toprol] 100 mg, 2 tab, Route: PO, Drug form: ERTAB, Daily, Start date: 03/09/15 9:00:00, Duration: 30 day, Stop date: 04/07/15 9:00:00Notes: (Same as: Toprol XL) May split tab, but do not crush. No Longer Active 03/09/2015 [facility] Isosorbide 30 mg, 1 tab, Route: PO, Drug form: ERTAB, BID, Dosing Weight 64.148, kg, Start date: 03/09/15 9:00:00, Duration: 30 day, Stop date: 04/07/15 21:00:00Notes: (Same as:Imdur) "Do Not Crush" Take on empty stomach/ full glass of water. Do not crush No Longer Active 03/09/2015 [facility] Digoxin 250 microgram, 1 tab, Route: PO, Drug form: TAB, Daily, Dosing Weight 64.148, kg, Start date: 03/09/15 9:00:00, Duration: 30 day, Stop date: 04/07/15 9:00:00Notes: Take on an Empty Stomach (Same as: Lanoxin) No Longer Active 03/09/2015 [facility] ferrous sulfate 325 MG Oral Tablet [Feosol] 325 mg, 1 tab, Route: PO, Drug form: TAB, TID-Meals, Dosing Weight 64.148, kg, Start date: 03/09/15 8:00:00, Duration: 30 day, Stop date: 04/07/15 17:00:00Notes: Give with food. iron elemental [id number] as ferrous sulfate Dose=___mg elemental iron No Longer Active 03/09/2015 [facility] Magnesium Sulfate 2 gm, 50 mL, Route: IVPB, Drug form: INJ, ONCE, Dosing Weight 64.148, kg, Start date: 03/09/15 7:49:00, Duration: 2 hr, Stop date: 03/09/15 7:49:00 Inactive 03/09/2015 [facility] Benadryl 25 mg, 0.5 mL, Route: IVP, Drug form: INJ, QID, Dosing Weight 64.148, kg, PRN Allergic reaction, Priority: NOW, Start date: 03/08/15 22:17:00, Duration: 30 day, Stop date: 04/07/15 22:16:00Notes: (Same as: Benadryl) No Longer Active 03/09/2015 [facility] Ativan 1 mg, 0.5 mL, Route: IVP, Drug form: INJ, QID, Dosing Weight 64.148, kg, PRN Anxiety, Priority: NOW, Start date: 03/08/15 22:17:00, Duration: 30 day, Stop date: 04/07/15 22:16:00Notes: (Same as: Ativan) No Longer Active 03/09/2015 [facility] Meclizine 25 mg, 1 tab, Route: PO, Drug form: TAB, TID, Dosing Weight 64.148, kg, Start date: 03/08/15 22:00:00, Duration: 30 day, Stop date: 04/07/15 14:00:00Notes: (Same as: Antivert) No Longer Active 03/09/2015 [facility] Ambien 5 mg, 1 tab, Route: PO, Drug form: TAB, Bedtime, PRN Sleep, Start date: 03/08/15 21:50:00, Duration: 30 day, Stop date: 04/07/15 21:49:00Notes: (Same As: Ambien) No Longer Active 03/09/2015 [facility] Sodium Chloride 0.154 MEQ/ML Injectable Solution 1,000 mL, Rate: 55 ml/hr, Infuse over: 18.2 hr, Route: IV, Dosing Weight 64.148 kg, Total Volume: 1,000, Start date: 03/08/15 21:44:00, Duration: 30 day, Stop date: 04/07/15 21:43:00 No Longer Active 03/09/2015 [facility] Ambien 10 mg, Route: PO, Drug form: TAB, Bedtime, Dosing Weight 64.148, kg, PRN Sleep, Start date: 03/08/15 21:43:00, Duration: 30 day, Stop date: 04/07/15 21:42:00 Inactive 03/09/2015 [facility] Methocarbamol 1,000 mg, 2 tab, Route: PO, Drug form: TAB, Q6H, Dosing Weight 64.148, kg, PRN Spasm, Start date: 03/08/15 21:42:00, Duration: 30 day, Stop date: 04/07/15 21:41:00Notes: (Same as:Robaxin) No Longer Active 03/09/2015 [facility] Insulin, Aspart, Human 12 unit, 0.12 mL, [...] days from Date No Longer Active 03/09/2015 [facility] Dextrose 50% Syringe 25 gm, 50 mL, Route: IVP, Drug Form: INJ, Dosing Weight 64.148, kg, PRN, PRN Blood Glucose Results, Start date: 03/08/15 21:40:00, Duration: 30 day, Stop date: 04/07/15 21:39:00 No Longer Active 03/09/2015 [facility] Glucagon 1 mg, Route: IM, Drug form: PDR/INJ, PRN, Dosing Weight 64.148, kg, PRN Blood Glucose Results, Start date: 03/08/15 21:40:00, Duration: 30 day, Stop date: 04/07/15 21:39:00 No Longer Active 03/09/2015 [facility] Bentyl 20 mg, 1 tab, Route: PO, Drug form: TAB, QID-After Meals, Dosing Weight 64.148, kg, Start date: 03/08/15 21:00:00, Duration: 30 day, Stop date: 04/07/15 18:00:00Notes: (Same as: Bentyl) No Longer Active 03/09/2015 [facility] Protonix 40 mg, Route: IVP, Drug form: INJ, BID-Before Meals, Dosing Weight 64.148, kg, Patient is NPO, Priority: STAT, Start date: 03/08/15 19:41:00, Duration: 30 day, Stop date: 04/07/15 16:30:00Notes: For IV push reconstitute with 10 ml 0.9% sodium chloride and push over 2 minutes. (Same as: Protonix) No Longer Active 03/09/2015 [facility] Sodium Chloride 0.154 MEQ/ML Injectable Solution 1,000 mL, Rate: 75 ml/hr, Infuse over: 13.3 hr, Route: IV, Dosing Weight 64.148 kg, Total Volume: 1,000, Start date: 03/08/15 19:41:00, Duration: 30 day, Stop date: 04/07/15 19:40:00 Inactive 03/09/2015 [facility] Acetaminophen 650 mg, 20.3 mL, Route: PO, Drug form: LIQ, Q4H, Dosing Weight 64.148, kg, PRN Pain 1-3/Temp > 100.4 F, Start date: 03/08/15 19:41:00, Duration: 30 day, Stop date: 04/07/15 19:40:00Notes: Max darius [id number]/day (4 gm/day). (Same as: Tylenol) No Longer Active 03/09/2015 [facility] Alprazolam 0.25 MG Oral Tablet [Xanax] 0.25 mg, 1 tab, Route: PO, Drug form: TAB, Q6H, Dosing Weight 64.148, kg, PRN Anxiety, Start date: 03/08/15 19:41:00, Duration: 30 day, Stop date: 04/07/15 19:40:00Notes: With food or milk (Same as: Xanax) No Longer Active 03/09/2015 [facility] Gas-X Ultra Softgels 160 mg, 2 tab, Route: PO, Drug form: CHEWTAB, Q4H, Dosing Weight 64.148, kg, PRN Gas, Start date: 03/08/15 19:41:00, Duration: 30 day, Stop date: 04/07/15 19:40:00Notes: (Same as: Mylicon) No Longer Active 03/09/2015 [facility] GI cocktail 30 ml, Route: PO, Drug Form: SUSP, Dosing Weight 64.148, kg, Q4H, PRN Dyspnea, NOW, Start date: 03/08/15 19:41:00, Duration: 30 day, Stop date: 04/07/15 19:40:00, DYSPEPSIANotes: G.I. Cocktail=antacid with simethicone 22.5 mL - lidocaine viscous 7.5 mL No Longer Active 03/09/2015 [facility] Morphine 4 mg, 1 mL, Route: IVP, Drug form: INJ, Q4H, Dosing Weight 64.148, kg, PRN Pain Score 6-10, Start date: 03/08/15 19:41:00, Duration: 3 day, Stop date: 03/11/15 19:40:00Notes: (Same as:MORPhine Sulfate) No Longer Active 03/09/2015 [facility] Hydralazine 20 mg, 1 mL, Route: IVP, Drug form: INJ, Q6H, Dosing Weight 64.148, kg, PRN Other -See Comment, Priority: STAT, Start date: 03/08/15 19:41:00, Duration: 30 day, Stop date: 04/07/15 19:40:00, SBP>/=160 OR DBP>/=90Notes: (Same as: Apresoline) Push over 5 minutes No Longer Active 03/09/2015 [facility] Docusate Sodium 100 MG Oral Capsule [Colace] 100 mg, 1 cap, Route: PO, Drug form: CAP, BID, Dosing Weight 64.148, kg, PRN Constipation, Start date: 03/08/15 19:41:00, Duration: 30 day, Stop date: 04/07/15 19:40:00Notes: (Same as: Colace) (Do Not Crush) No Longer Active 03/09/2015 [facility] Phenergan 25 mg, 50 mL, Route: IVP Central, Drug form: SOLN, Q6H, Dosing Weight 64.148, kg, PRN Other -See Comment, Start date: 03/08/15 19:41:00, Duration: 30 day, Stop date: 04/07/15 19:40:00, BREAKTHROUGH NAUSEA/VOMITING No Longer Active 03/09/2015 [facility] Labetalol 10 mg, 2 mL, Route: IVP, Drug form: INJ, Q6H, Dosing Weight 64.148, kg, PRN Other -See Comment, Priority: STAT, Start date: 03/08/15 19:41:00, Duration: 30 day, Stop date: 04/07/15 19:40:00, SBP >/=175 OR HR >/=110Notes: (Same as: Normodyne, Trandate) Push over 2 minutes Give bolus over 2-3 minutes. No Longer Active 03/09/2015 [facility] Hydralazine 10 mg, Route: IV, ONCE, Dosing Weight 64.148, kg, Start date: 03/08/15 18:33:00, Stop date: 03/08/15 18:33:00 Inactive 03/09/2015 [facility] Hydralazine 20 mg, 1 mL, Route: IVP, Drug form: INJ, ONCE, Dosing Weight 64.148, kg, Priority: STAT, Start date: 03/08/15 15:20:00, Stop date: 03/08/15 15:20:00Notes: (Same as: Apresoline) Push over 5 minutes Inactive 03/08/2015 [facility] Phenergan 25 mg, 50 mL, Route: IVPB, Drug form: SOLN, ONCE, Dosing Weight 64.148, kg, Priority: STAT, Start date: 03/08/15 15:20:00, Stop date: 03/08/15 15:20:00 Inactive 03/08/2015 [facility] Benadryl 25 mg, 0.5 mL, Route: IVP, Drug form: INJ, ONCE, Dosing Weight 64.148, kg, Priority: STAT, Start date: 03/08/15 15:19:00, Stop date: 03/08/15 15:19:00Notes: (Same as: Benadryl) Inactive 03/08/2015 [facility] Morphine 4 mg, 1 mL, Route: IVP, Drug form: INJ, ONCE, Dosing Weight 64.148, kg, Priority: STAT, Start date: 03/08/15 15:19:00, Stop date: 03/08/15 15:19:00Notes: (Same as:MORPhine Sulfate) Inactive 03/08/2015 [facility] Saline Flush 0.9% 10 mL, Route: IVP, Drug Form: INJ, Dosing Weight 64.148, kg, PRN, PRN Line Flush, Start date: 03/08/15 15:19:00, Duration: 30 day, Stop date: 04/07/15 15:18:00Notes: (Same as: BD Posiflush) No Longer Active 03/08/2015 [facility] promethazine 25 mg oral tablet 25 mg=1 tab, PO, Q6H, PRN as needed for nausea/vomiting, 0 Refill(s) Active 03/08/2015 [facility] methocarbamol 500 mg oral tablet 1,000 mg=2 tab, PO, Q6H, PRN muscle pain, 0 Refill(s) Active 03/08/2015 [facility] Acetaminophen 300 MG / Codeine Phosphate 30 MG Oral Tablet [Tylenol with Codeine #3] 1 tab, PO, Q4H, PRN Pain Score 1-3, 0 Refill(s) Inactive 03/08/2015 [facility] ALPRAZOLam 0.5 mg oral tablet, disintegrating 0.5 mg=1 tab, PO, TID, PRN Anxiety, 0 Refill(s) Active 03/08/2015 [facility] Diphenhydramine Hydrochloride 25 MG Oral Tablet [Benadryl] 25 mg=1 tab, PO, QID, PRN as needed for allergy symptoms, 0 Refill(s) Active 03/08/2015 [facility] Calcitriol 0.25 microgram, 1 cap, Route: PO, Drug form: CAP, Q-M-W-F, Dosing Weight 57.33, kg, Start date: 02/28/15 9:00:00, Duration: 30 day, Stop date: 03/28/15 9:00:00Notes: (Same As: Rocaltrol) No Longer Active 02/28/2015 [facility] metoprolol tartrate 100 mg oral tablet 100 mg=1 tab, PO, BID, # 60 tab, 0 Refill(s) Active 02/26/2015 [facility] Metoclopramide 10 MG Oral Tablet [Reglan] 10 mg=1 tab, PO, QID, X 30 day, # 120 tab, 0 Refill(s) Active 02/26/2015 [facility] DME Addition #1 1 ea, MISC, Daily, dispense 100 LANTUS SOLOSTAR PEN NEEDLES, # 1 ea, 0 Refill(s) Active 02/26/2015 [facility] Insulin Aspart 100 unit/ml - (High CD) See Special Instructions, SUB-Q, TID-Before Meals, Check blood sugar before breakfast, lunch, and dinner, and inject correction doses: Inject 3 unit if Sugar 150-199, Inject 6 units if Sugar 200-249, Inject 9 units if Sugar 250-299, Inject 12 units if... Active 02/26/2015 [facility] methocarbamol 500 mg oral tablet 500 mg, PO, Q6H, PRN as needed for muscle pain/relaxation, X 5 day, # 30 tab, 0 Refill(s) Active 02/26/2015 [facility] Phenergan 25 mg, 1 tab, Route: PO, Drug form: TAB, Q4H, Dosing Weight 57.33, kg, PRN Nausea & Vomiting, Priority: STAT, Start date: 02/26/15 11:24:00, Duration: 30 day, Stop date: 03/28/15 11:23:00Notes: (Same as: Phenergan) Inactive 02/26/2015 [facility] Benadryl 25 mg, 1 tab, Route: PO, Drug form: TAB, Bedtime, Dosing Weight 57.33, kg, PRN as needed for insomnia, Priority: STAT, Start date: 02/26/15 11:24:00, Duration: 30 day, Stop date: 03/28/15 11:23:00 Inactive 02/26/2015 [facility] Morphine 30 mg, 2 tab, Route: PO, Drug form: TAB, Q6H, Dosing Weight 57.33, kg, PRN Pain Score 7-10, Priority: STAT, Start date: 02/26/15 11:24:00, Duration: 30 day, Stop date: 03/28/15 11:23:00Notes: (Same a s:MORPhine Sulfate) Inactive 02/26/2015 [facility] Sucralfate 100 MG/ML Oral Suspension 1 gm=10 mL, PO, Q6H, scheduled, # 1200 mL, 0 Refill(s) Active 02/26/2015 [facility] promethazine 25 mg oral tablet 25 mg, PO, Q6H, PRN as needed for nausea/vomiting, X 5 day, # 30 tab, 0 Refill(s) Active 02/26/2015 [facility] 24 HR Nifedipine 90 MG Extended Release Tablet 90 mg=1 tab, PO, Q12H, # 60 tab, 0 Refill(s) Active 02/26/2015 [facility] isosorbide mononitrate 30 mg oral tablet, extended release 30 mg, PO, BID, # 60 tab, 0 Refill(s) Active 02/26/2015 [facility] Diphenhydramine Hydrochloride 25 MG Oral Tablet [Benadryl] 25 mg, PO, QID, PRN as needed for allergy symptoms, X 5 day, # 24 tab, 0 Refill(s) Active 02/26/2015 [facility] ALPRAZOLam 0.5 mg oral tablet, disintegrating 0.5 mg, PO, TID, PRN as needed for anxiety, X 5 day, # 15 tab, 0 Refill(s) Active 02/26/2015 [facility] 3 ML Insulin Glargine 100 UNT/ML Prefilled Syringe [Lantus] 70 unit, SUB-Q, Bedtime, HOLD IF FS Active 02/26/2015 [facility] Acetaminophen 300 MG / Codeine Phosphate 30 MG Oral Tablet [Tylenol with Codeine #3] 1 tab, PO, Q4H, PRN Pain Score 1-3, X 5 day, # 30 tab, 0 Refill(s) Active 02/26/2015 [facility] cefpodoxime 200 mg oral tablet 200 mg=1 tab, PO, Q12H, X 14 day, # 28 tab, 0 Refill(s) Active 02/26/2015 [facility] Insulin, Aspart, Human 4 unit, 0.04 mL, [...] days from Date No Longer Active 02/25/2015 [facility] Dextrose 50% Syringe 25 gm, 50 mL, Route: IVP, Drug Form: INJ, Dosing Weight 57.33, kg, PRN, PRN Blood Glucose Results, Start date: 02/25/15 17:46:00, Duration: 30 day, Stop date: 03/27/15 17:45:00 No Longer Active 02/25/2015 [facility] Glucagon 1 mg, Route: IM, Drug form: PDR/INJ, PRN, Dosing Weight 57.33, kg, PRN Blood Glucose Results, Start date: 02/25/15 17:46:00, Duration: 30 day, Stop date: 03/27/15 17:45:00 No Longer Active 02/25/2015 [facility] Morphine 4 mg, 1 mL, Route: IVP, Drug form: INJ, Q4H, Dosing Weight 57.33, kg, PRN Pain Score 4-6, Start date: 02/25/15 13:21:00, Duration: 30 day, Stop date: 03/27/15 13:20:00Notes: (Same as:MORPhine Sulfate) No Longer Active 02/25/2015 [facility] Sodium Chloride 0.154 MEQ/ML Injectable Solution 1,000 mL, Rate: 75 ml/hr, Infuse over: 13.3 hr, Route: IV, Dosing Weight 57.33 kg, Total Volume: 1,000, Start date: 02/25/15 9:39:00, Duration: 30 day, Stop date: 03/27/15 9:38:00 No Longer Active 02/25/2015 [facility] Hydralazine 10 mg, 0.5 mL, Route: IVP, Drug form: INJ, Q4H, Dosing Weight 57.33, kg, PRN Elevated BP, Start date: 02/24/15 19:59:00, Duration: 30 day, Stop date: 03/26/15 19:58:00, SBP>/=150 OR DBP>/=90Notes: (S berna as: Apresoline) Push over 5 minutes No Longer Active 02/25/2015 [facility] Rocephin 1 gm, Route: IV, QPM, Dosing Weight 59.091, kg, Start date: 02/24/15 18:00:00, Duration: 30 day, Stop date: 03/25/15 18:00:00Notes: (Same As: Rocephin). Use with 100 mL NS and infuse over 30 min MEDICATION WASTE Product Size: 1000 mg Product Wasted: 0 mg Inactive 02/25/2015 [facility] cefepime 1 gm, Route: IVPB, [id number], Dosing Weight 57.33, kg, (CrCl >/=50 ml/min), Start date: 02/24/15 17:00:00, Duration: 30 day, Stop date: 03/26/15 5:00:00Notes: (Same As: Maxipime) MEDICATION WASTE Product Size: 1000 mg Product Wasted: ___ mg No Longer Active 02/24/2015 [facility] Morphine 2 mg, 1 mL, Route: IVP, Drug form: INJ, Q4H, Dosing Weight 57.33, kg, PRN Pain Score 4-6, Start date: 02/24/15 16:39:00, Duration: 30 day, Stop date: 03/26/15 16:38:00Notes: (Same as:MORPhine Sulfate) No Longer Active 02/24/2015 [facility] Iohexol 50 mL, Route: PO, Drug Form: SOLN, Dosing Weight 57.33, kg, ONCE, Start date: 02/24/15 16:37:00, Stop date: 02/24/15 16:37:00Notes: (Same as:Omnipaque 240) 12,000mg/50ml Inactive 02/24/2015 [facility] Acetaminophen 300 MG / Codeine Phosphate 30 MG Oral Tablet [Tylenol with Codeine #3] 1 tab, Route: PO, Drug Form: TAB, Dosing Weight 57.33, kg, Q4H, PRN Pain Score 1-3, Routine, Start date: 02/24/15 16:13:00, Duration: 30 day, Stop date: 03/26/15 16:12:00Notes: Do not exceed 4gm/day of acetaminophen. (Same as: Tylenol with Codeine # 3) No Longer Active 02/24/2015 [facility] Benadryl 25 mg, 0.5 mL, Route: IV, Drug form: INJ, TID, Dosing Weight 57.33, kg, PRN as needed for itching, Priority: STAT, Start date: 02/24/15 14:16:00, Duration: 30 day, Stop date: 03/26/15 14:15:00Notes: (Same as: Benadryl) No Longer Active 02/24/2015 [facility] Metoclopramide 5 MG Oral Tablet [Reglan] 10 mg, 1 tab, Route: PO, Drug form: TAB, QID, Dosing Weight 57.33, kg, Start date: 02/24/15 9:00:00, Duration: 30 day, Stop date: 03/25/15 21:00:00Notes: (Same as: Reglan) Take 30 min before meals No Longer Active 02/24/2015 [facility] Digoxin 250 microgram, 1 tab, Route: PO, Drug form: TAB, Daily, Dosing Weight 57.33, kg, Start date: 02/24/15 9:00:00, Duration: 30 day, Stop date: 03/25/15 9:00:00Notes: Take on an Empty Stomach (Same as: Lanoxin) No Longer Active 02/24/2015 [facility] 24 HR Nifedipine 90 MG Extended Release Tablet 90 mg, 1 tab, Route: PO, Drug form: ERTAB, BID, Dosing Weight 57.33, kg, Start date: 02/24/15 9:00:00, Duration: 30 day, Stop date: 03/25/15 15:00:00Notes: (Same as: Procardia XL) "Do Not Crush" "Avoid grapefruit and grapefruit juice" No Longer Active 02/24/2015 [facility] Levemir FlexPen 70 unit, 0.7 mL, Route: SUB-Q, Drug form: INJ, Daily, Start date: 02/24/15 9:00:00, Duration: 30 day, Stop date: 03/25/15 9:00:00Notes: Same as Levemir Do not hold insulin without contacting prescriber "single patient use only" No Longer Active 02/24/2015 [facility] Labetalol 200 mg, 1 tab, Route: PO, Drug form: TAB, BID, Dosing Weight 57.33, kg, Start date: 02/24/15 9:00:00, Duration: 30 day, Stop date: 03/25/15 17:00:00Notes: With food. (Same as:Trandate, Normodyne) Inactive 02/24/2015 [facility] Isosorbide 30 mg, 1 tab, Route: PO, Drug form: ERTAB, BID, Dosing Weight 57.33, kg, Start date: 02/24/15 9:00:00, Duration: 30 day, Stop date: 03/25/15 17:00:00Notes: (Same as:Imdur) "Do Not Crush" Take on empty stomach/ full glass of water. Do not crush No Longer Active 02/24/2015 [facility] Lantus Route: SUB-Q, Daily, Dosing Weight 57.33, kg, Start date: 02/24/15 9:00:00, Duration: 30 day, Stop date: 03/25/15 9:00:00 No Longer Active 02/24/2015 [facility] Meclizine 25 mg, 1 tab, Route: PO, Drug form: TAB, TID, Dosing Weight 57.33, kg, Start date: 02/24/15 9:00:00, Duration: 30 day, Stop date: 03/25/15 17:00:00Notes: (Same as: Antivert) No Longer Active 02/24/2015 [facility] ferrous sulfate 325 MG Oral Tablet [Feosol] 325 mg, 1 tab, Route: PO, Drug form: TAB, TID-Meals, Dosing Weight 57.33, kg, Start date: 02/24/15 8:00:00, Duration: 30 day, Stop date: 03/25/15 17:00:00Notes: Give with food. iron elemental [id number] as ferrous sulfate Dose=___mg elemental iron No Longer Active 02/24/2015 [facility] Insulin regular Route: SUB-Q, Before Meals & Bedtime, Dosing Weight 57.33, kg, Start date: 02/24/15 7:30:00, Duration: 30 day, Stop date: 03/25/15 21:00:00 Inactive 02/24/2015 [facility] Insulin, Aspart, Human 1 unit, 0.01 mL, [...] days from Date No Longer Active 02/24/2015 [facility] Dextrose 50% Syringe 12.5 gm, 25 mL, Route: IVP, Drug Form: INJ, Dosing Weight 57.33, kg, PRN, PRN Blood Glucose Results, Start date: 02/24/15 7:03:00, Duration: 30 day, Stop date: 03/26/15 7:02:00 No Longer Active 02/24/2015 [facility] Glucagon 1 mg, Route: IM, Drug form: PDR/INJ, PRN, Dosing Weight 57.33, kg, PRN Blood Glucose Results, Start date: 02/24/15 7:03:00, Duration: 30 day, Stop date: 03/26/15 7:02:00 No Longer Active 02/24/2015 [facility] Morphine 4 mg, 1 mL, Route: IV, Drug form: INJ, Q4H, Dosing Weight 57.33, kg, PRN Pain Score 6-10, Start date: 02/24/15 0:16:00, Duration: 30 day, Stop date: 03/26/15 0:15:00Notes: (Same as:MORPhine Sulfate) Inactive 02/24/2015 [facility] Phenergan 12.5 mg, 50 mL, Route: IVPB, Drug form: SOLN, Q6H, Dosing Weight 57.33, kg, PRN Nausea & Vomiting, Start date: 02/24/15 0:15:00, Duration: 30 day, Stop date: 03/26/15 0:14:00 No Longer Active 02/24/2015 [facility] Benadryl 12.5 mg, 0.25 mL, Route: IV, Drug form: INJ, TID, Dosing Weight 57.33, kg, PRN as needed for itching, Start date: 02/24/15 0:15:00, Duration: 30 day, Stop date: 03/26/15 0:14:00Notes: (Same as: Benadryl) Inactive 02/24/2015 [facility] Sodium Bicarbonate 650 mg, 1 tab, Route: [...] food or drink." No Longer Active 02/24/2015 [facility] Benadryl 25 mg, 1 tab, Route: PO, Drug form: TAB, QID, Dosing Weight 57.33, kg, Start date: 02/23/15 23:44:00, Duration: 30 day, Stop date: 03/25/15 22:00:00 No Longer Active 02/24/2015 [facility] Sucralfate 100 MG/ML Oral Suspension 1 gm, [...] (Same As: Carafate) No Longer Active 02/24/2015 [facility] metoprolol tartrate 100 mg, 1 tab, Route: PO, Drug form: TAB, Q12H, Dosing Weight 57.33, kg, Start date: 02/23/15 22:57:00, Duration: 30 day, Stop date: 03/25/15 21:00:00Notes: (Same as: Lopressor) No Longer Active 02/24/2015 [facility] Protonix 40 mg, 1 tab, Route: PO, Drug form: ECTAB, Q12H, Dosing Weight 57.33, kg, Start date: 02/23/15 22:56:00, Duration: 30 day, Stop date: 03/25/15 21:00:00Notes: Tablet should not be chewed or crushed. (Same as: Protonix) No Longer Active 02/24/2015 [facility] Hydralazine 10 mg, 0.5 mL, Route: IV, Drug form: INJ, Q6H, Dosing Weight 57.33, kg, PRN Other -See Comment, Systolic BP >160, Start date: 02/23/15 22:45:00, Duration: 30 day, Stop date: 03/25/15 22:44:00Notes: (Same as: Apresoline) Push over 5 minutes No Longer Active 02/24/2015 [facility] Morphine 2 mg, 1 mL, Route: IVP, Drug form: INJ, Q2H, Dosing Weight 57.33, kg, PRN Pain Score 7-10, Start date: 02/23/15 22:44:00, Duration: 30 day, Stop date: 03/25/15 22:43:00Notes: (Same as:MORPhine Sulfate) No Longer Active 02/24/2015 [facility] MS Contin 30 mg, 1 tab, Route: PO, Drug form: ERTAB, Q6H, Dosing Weight 57.33, kg, PRN Pain Score 6-10, Start date: 02/23/15 22:43:00, Duration: 30 day, Stop date: 03/25/15 22:42:00Notes: Do not crush (Same as :Oramorph SR, MS Contin) No Longer Active 02/24/2015 [facility] Promethazine 25 mg, 1 tab, Route: PO, Drug form: TAB, Q6H, Dosing Weight 57.33, kg, PRN as needed for nausea/vomiting, Start date: 02/23/15 22:43:00, Duration: 30 day, Stop date: 03/25/15 22:42:00Notes: (Same as: Phenergan) No Longer Active 02/24/2015 [facility] Ambien 5 mg, 1 tab, Route: PO, Drug form: TAB, Bedtime, Dosing Weight 57.33, kg, PRN Sleep, Start date: 02/23/15 22:43:00, Duration: 30 day, Stop date: 03/25/15 22:42:00Notes: (Same As: Ambien) No Longer Active 02/24/2015 [facility] Docusate 100 mg, 1 cap, Route: PO, Drug form: CAP, BID, Dosing Weight 57.33, kg, PRN Constipation, Start date: 02/23/15 22:42:00, Duration: 30 day, Stop date: 03/25/15 22:41:00Notes: (Same as: Colace) (Do Not Crush) No Longer Active 02/24/2015 [facility] Lorazepam 0.5 mg, 1 tab, Route: PO, Drug form: TAB, TID, Dosing Weight 57.33, kg, PRN Anxiety, Start date: 02/23/15 22:42:00, Duration: 30 day, Stop date: 03/25/15 22:41:00Notes: (Same as: Ativan) No Longer Active 02/24/2015 [facility] Alprazolam 0.5 mg, 1 tab, Route: PO, Drug form: TAB, TID, Dosing Weight 57.33, kg, PRN Anxiety, Start date: 02/23/15 22:41:00, Duration: 30 day, Stop date: 03/25/15 22:40:00Notes: With food or milk (Same as: Xanax) No Longer Active 02/24/2015 [facility] enalaprilat 1.25 mg, Route: IV, ONCE, Dosing Weight 59.091, kg, Start date: 02/23/15 20:53:00, Stop date: 02/23/15 20:53:00 Inactive 02/24/2015 [facility] Metoprolol 5 mg, Route: IVP, Drug form: INJ, ONCE, Dosing Weight 59.091, kg, Priority: STAT, Start date: 02/23/15 20:53:00, Stop date: 02/23/15 20:53:00 Inactive 02/24/2015 [facility] Morphine 2 mg, 1 mL, Route: IVP, Drug form: INJ, ONCE, Dosing Weight 59.091, kg, Priority: STAT, Start date: 02/23/15 19:23:00, Stop date: 02/23/15 19:23:00Notes: (Same as:MORPhine Sulfate) Inactive 02/24/2015 [facility] Promethazine 12.5 mg, 50 mL, Route: IVPB, Drug form: SOLN, ONCE, Dosing Weight 59.091, kg, Priority: STAT, Start date: 02/23/15 19:23:00, Stop date: 02/23/15 19:23:00 Inactive 02/24/2015 [facility] Diphenhydramine 25 mg, 0.5 mL, Route: IVP, Drug form: INJ, ONCE, Dosing Weight 59.091, kg, Priority: STAT, Start date: 02/23/15 19:23:00, Stop date: 02/23/15 19:23:00Notes: (Same as: Benadryl) Inactive 02/24/2015 [facility] Sodium Chloride 0.154 MEQ/ML Injectable Solution 1,000 mL, Rate: 125 ml/hr, Infuse over: 8 hr, Route: IV, Dosing Weight 59.091 kg, Total Volume: 1,000, Start date: 02/23/15 18:45:00, Duration: 30 day, Stop date: 03/25/15 18:44:00 No Longer Active 02/24/2015 [facility] Saline Flush 0.9% 10 ml, Route: IVP, Drug Form: INJ, Dosing Weight 59.091, kg, PRN, PRN Line Flush, Start date: 02/23/15 18:45:00, Duration: 30 day, Stop date: 03/25/15 18:44:00Notes: (Same as: BD Posiflush) No Longer Active 02/24/2015 [facility] Ceftriaxone 1 gm, Route: IVPB, ONCE, Dosing Weight 59.091, kg, Priority: STAT, Start date: 02/23/15 18:11:00, Stop date: 02/23/15 18:11:00Notes: (Same As: Rocephin). Use with 100 mL NS and infuse over 30 min MEDICATION WASTE Product Size: 1000 mg Product Wasted: 0 mg Inactive 02/24/2015 [facility] Morphine 2 mg, 1 mL, Route: IVP, Drug form: INJ, ONCE, Dosing Weight 59.091, kg, Priority: STAT, Start date: 02/23/15 16:40:00, Stop date: 02/23/15 16:40:00Notes: (Same as:MORPhine Sulfate) Inactive 02/23/2015 [facility] Saline Flush 0.9% 10 mL, Route: IVP, Drug Form: INJ, Dosing Weight 59.091, kg, PRN, PRN Line Flush, Start date: 02/23/15 16:40:00, Duration: 30 day, Stop date: 03/25/15 16:39:00Notes: (Same as: BD Posiflush) Inactive 02/23/2015 [facility] Promethazine 12.5 mg, 50 mL, Route: IVPB, Drug form: SOLN, ONCE, Dosing Weight 59.091, kg, Priority: STAT, Start date: 02/23/15 16:40:00, Stop date: 02/23/15 16:40:00 Inactive 02/23/2015 [facility] Diphenhydramine 25 mg, 0.5 mL, Route: IVP, Drug form: INJ, ONCE, Dosing Weight 59.091, kg, Priority: STAT, Start date: 02/23/15 16:39:00, Stop date: 02/23/15 16:39:00Notes: (Same as: Benadryl) Inactive 02/23/2015 [facility] Clonidine 0.1 mg, 1 tab, Route: PO, Drug form: TAB, Q12H, Dosing Weight 60.182, kg, Start date: 02/17/15 21:00:00, Duration: 30 day, Stop date: 03/19/15 9:00:00Notes: (Same As: Catapres) Inactive 02/18/2015 [facility] metoprolol tartrate 100 mg oral tablet 100 mg=1 tab, PO, BID, # 60 tab, 0 Refill(s) Active 02/17/2015 [facility] ferrous sulfate 325 MG Oral Tablet [Feosol] 325 mg=1 tab, PO, TID, # 90 tab, 0 Refill(s) Active 02/17/2015 [facility] Promethazine Hydrochloride 50 MG Rectal Suppository [Phenergan] 50 mg=1 supp, WI, Q6H, PRN Nausea & Vomiting, X 3 day, # 12 supp, 0 Refill(s) Active 02/17/2015 [facility] metoprolol tartrate 50 mg, 1 tab, Route: PO, Drug form: TAB, Q12H, Dosing Weight 60.182, kg, Start date: 02/16/15 21:00:00, Duration: 30 day, Stop date: 03/18/15 9:00:00Notes: (Same as: Lopressor) No Longer Active 02/17/2015 [facility] Protonix 40 mg, Route: IVP, Drug form: INJ, BID-Before Meals, Dosing Weight 60.182, kg, Start date: 02/16/15 16:30:00, Duration: 30 day, Stop date: 03/18/15 7:30:00Notes: For IV push reconstitute with 10 ml 0.9% sodium chloride and push over 2 minutes. (Same as: Protonix) No Longer Active 02/16/2015 [facility] Hydralazine 20 mg, 1 mL, Route: IVP, Drug form: INJ, Q4H, Dosing Weight 60.182, kg, PRN Elevated BP, Start date: 02/16/15 16:00:00, Duration: 30 day, Stop date: 03/18/15 15:59:00Notes: (Same as: Apresoline) Push over 5 minutes No Longer Active 02/16/2015 [facility] Ativan 1 mg, 0.5 mL, Route: IVP, Drug form: INJ, Q6H, Dosing Weight 60.182, kg, PRN Anxiety, Start date: 02/16/15 9:16:00, Duration: 30 day, Stop date: 03/18/15 9:15:00Notes: (Same as: Ativan) No Longer Active 02/16/2015 [facility] Levemir 5 unit, 0.05 mL, Route: SUB-Q, Drug form: INJ, ONCE, Dosing Weight 60.182, kg, Start date: 02/15/15 9:22:00, Stop date: 02/15/15 9:22:00Notes: Same as Levemir Do not hold insulin without contacting p janeenriber "single patient use only" Inactive 02/15/2015 [facility] Digoxin 250 microgram, 1 tab, Route: PO, Drug form: TAB, Daily, Dosing Weight 60.182, kg, Start date: 02/14/15 9:00:00, Duration: 30 day, Stop date: 03/15/15 9:00:00Notes: Take on an Empty Stomach (Same as: Lanoxin) No Longer Active 02/14/2015 [facility] heparin 5,000 unit, 1 mL, Route: SUB-Q, Drug form: INJ, Q12H, Dosing Weight 60.182, kg, Start date: 02/14/15 9:00:00, Duration: 30 day, Stop date: 03/15/15 21:00:00Notes: porcine heparin No Longer Active 02/14/2015 [facility] Protonix 40 mg, Route: IVP, Drug form: INJ, Before Breakfast, Dosing Weight 60.182, kg, Start date: 02/14/15 7:30:00, Duration: 30 day, Stop date: 03/15/15 7:30:00Notes: For IV push reconstitute with 10 ml 0.9% sodium chloride and push over 2 minutes. (Same as: Protonix) No Longer Active 02/14/2015 [facility] Levemir 15 unit, 0.15 mL, Route: SUB-Q, Drug form: INJ, Q12H, Dosing Weight 60.182, kg, Start date: 02/13/15 21:00:00, Stop date: 03/15/15 9:00:00Notes: Same as Levemir Do not hold insulin without contacting pr rick "single patient use only" No Longer Active 02/14/2015 [facility] Ambien 10 mg, Route: PO, Bedtime, Dosing Weight 60.182, kg, Start date: 02/13/15 21:00:00, Duration: 30 day, Stop date: 03/14/15 21:00:00 Inactive 02/14/2015 [facility] 24 HR Nifedipine 90 MG Extended Release Tablet 90 mg, 1 tab, Route: PO, Drug form: ERTAB, Q12H, Dosing Weight 60.182, kg, Start date: 02/13/15 21:00:00, Duration: 30 day, Stop date: 03/15/15 9:00:00Notes: (Same as: Procardia XL) "Do Not Crush" "Avoid grapefruit and grapefruit juice" No Longer Active 02/14/2015 [facility] metoprolol tartrate 50 mg, 1 tab, Route: PO, Drug form: TAB, Q12H, Dosing Weight 60.182, kg, Start date: 02/13/15 21:00:00, Duration: 30 day, Stop date: 03/15/15 9:00:00Notes: (Same as: Lopressor) Inactive 02/14/2015 [facility] Levaquin 750 mg, 150 mL, Route: IV, Drug form: SOLN, [id number], Dosing Weight 60.182, kg, Start date: 02/13/15 20:00:00, Duration: 30 day, Stop date: 03/13/15 20:00:00Notes: (Same as:Levaquin) No Longer Active 02/14/2015 [facility] Hydralazine 10 mg, 0.5 mL, Route: IV, Drug form: INJ, Q6H, Dosing Weight 60.182, kg, Start date: 02/13/15 18:00:00, Stop date: 02/16/15 16:42:22Notes: (Same as: Apresoline) Push over 5 minutes No Longer Active 02/14/2015 [facility] Benadryl 25 mg, 0.5 mL, Route: IV, Drug form: INJ, TID, Dosing Weight 60.182, kg, Start date: 02/13/15 17:00:00, Duration: 30 day, Stop date: 03/15/15 13:00:00Notes: (Same as: Benadryl) No Longer Active 02/13/2015 [facility] Isosorbide 30 mg, 1 tab, Route: PO, Drug form: ERTAB, BID, Dosing Weight 60.182, kg, Start date: 02/13/15 17:00:00, Duration: 30 day, Stop date: 03/15/15 15:00:00Notes: (Same as:Imdur) "Do Not Crush" Take on empty stomach/ full glass of water. Do not crush No Longer Active 02/13/2015 [facility] Meclizine 25 mg, 1 tab, Route: PO, Drug form: TAB, TID, Dosing Weight 60.182, kg, Start date: 02/13/15 17:00:00, Duration: 30 day, Stop date: 03/15/15 13:00:00Notes: (Same as: Antivert) No Longer Active 02/13/2015 [facility] Morphine 4 mg, 1 mL, Route: IV, Drug form: INJ, Q3H, Dosing Weight 60.182, kg, PRN Other -See Comment, Start date: 02/13/15 16:33:00, Duration: 30 day, Stop date: 03/15/15 16:32:00Notes: (Same as:MORPhine Sulfate) No Longer Active 02/13/2015 [facility] Phenergan 25 mg, 50 mL, Route: IVPB, Drug form: SOLN, Q8H, Dosing Weight 60.182, kg, PRN as needed for nausea/vomiting, Start date: 02/13/15 16:23:00, Duration: 30 day, Stop date: 03/15/15 16:22:00 No Longer Active 02/13/2015 [facility] Ativan 0.5 mg, 0.25 mL, Route: IV, Drug form: INJ, Q6H, Dosing Weight 60.182, kg, PRN as needed for anxiety, Start date: 02/13/15 16:23:00, Duration: 30 day, Stop date: 03/15/15 16:22:00Notes: (Same as: Ativan) No Longer Active 02/13/2015 [facility] NS 1,000 mL 1,000 mL, Rate: 125 ml/hr, Infuse over: 8 hr, Route: IV, Dosing Weight 60.182 kg, Total Volume: 1,000, Start date: 02/13/15 16:20:00, Duration: 30 day, Stop date: 03/15/15 16:19:00 No Longer Active 02/13/2015 [facility] Enoxaparin 30 mg, 0.3 mL, Route: SUB-Q, Drug form: INJ, [id number], Dosing Weight 60.182, kg, Start date: 02/13/15 16:00:00, Duration: 30 day, Stop date: 03/14/15 16:00:00Notes: (Same as: Lovenox) No Longer Active 02/13/2015 [facility] Hydralazine 10 mg, Route: IV, ONCE, Dosing Weight 60.182, kg, Start date: 02/13/15 15:50:00, Stop date: 02/13/15 15:50:00 Inactive 02/13/2015 [facility] Ambien 5 mg, 1 tab, Route: PO, Drug form: TAB, Bedtime, PRN Sleep, Start date: 02/13/15 15:46:00, Duration: 30 day, Stop date: 03/15/15 15:45:00Notes: (Same As: Ambien) No Longer Active 02/13/2015 [facility] Docusate 100 mg, 1 cap, Route: PO, Drug form: CAP, BID, Dosing Weight 60.182, kg, PRN Constipation, Start date: 02/13/15 15:28:00, Duration: 30 day, Stop date: 03/15/15 15:27:00Notes: (Same as: Colace) (Do Not Crush) No Longer Active 02/13/2015 [facility] Alprazolam 0.5 mg, 1 tab, Route: PO, Drug form: TAB, TID, Dosing Weight 60.182, kg, PRN Anxiety, Start date: 02/13/15 15:28:00, Duration: 30 day, Stop date: 03/15/15 15:27:00Notes: With food or milk (Same as: Xanax) No Longer Active 02/13/2015 [facility] Insulin, Aspart, Human 2 unit, 0.02 mL, Route: SUB-Q, Drug form: SOLN, Bedtime, Dosing Weight 60.182, kg, PRN Blood Glucose Results, Start date: 02/13/15 15:26:00, Duration: 30 day, Stop date: 03/15/15 15:25:00Notes: Roll in palms of hands gently; Do not shake vigorously. (Same as: NovoLOG) "single patient use only" Stable for 28 days at room temperature. Expires in days from Date Inactive 02/13/2015 [facility] Dextrose 50% Syringe 12.5 gm, 25 mL, Route: IVP, Drug Form: INJ, Dosing Weight 60.182, kg, PRN, PRN Blood Glucose Results, Start date: 02/13/15 15:26:00, Duration: 30 day, Stop date: 03/15/15 15:25:00 No Longer Active 02/13/2015 [facility] Glucagon 1 mg, Route: IM, Drug form: PDR/INJ, PRN, Dosing Weight 60.182, kg, PRN Blood Glucose Results, Start date: 02/13/15 15:26:00, Duration: 30 day, Stop date: 03/15/15 15:25:00 No Longer Active 02/13/2015 [facility] Labetalol 10 mg, 2 mL, Route: IV, Drug form: INJ, Q4H, Dosing Weight 60.182, kg, PRN Other -See Comment, SBP >160 or pulse >120. Hold if pulse Notes: (Same as: Normodyne, Trandate) Push over 2 minutes Give bolus over 2-3 minutes. No Longer Active 02/13/2015 [facility] metoprolol tartrate 50 mg, PO, BID No Longer Active 02/13/2015 [facility] Sodium Bicarbonate 650 mg, PO, Q6H, scheduled Active 02/13/2015 [facility] Labetalol 200 mg, PO, BID Active 02/13/2015 [facility] Isosorbide 30 mg, PO, BID Active 02/13/2015 [facility] Insulin regular sliding scale, SUB-Q, Before Meals & Bedtime Active 02/13/2015 [facility] Levemir 70 unit, SUB-Q, QAM No Longer Active 02/13/2015 [facility] Methocarbamol 500 mg, PO, Q6H, PRN as needed for muscle pain/relaxation Active 02/13/2015 [facility] Reglan 10 mg, PO, TID-Before Meals No Longer Active 02/13/2015 [facility] Protonix 40 mg, PO, Daily No Longer Active 02/13/2015 [facility] ferrous sulfate 325 mg, PO, Daily No Longer Active 02/13/2015 [facility] Morphine Sulfate 30 MG Extended Release Tablet [MS Contin] 30 mg=1 tab, PO, Q6H, PRN as needed for pain Active 02/13/2015 [facility] 24 HR Nifedipine 90 MG Extended Release Tablet 90 mg=1 tab, PO, Q12H Active 02/13/2015 [facility] Digoxin 250 microgram, PO, Daily No Longer Active 02/13/2015 [facility] Diphenhydramine 25 mg, PO, QID, scheduled No Longer Active 02/13/2015 [facility] Meclizine 25 mg, PO, TID, scheduled No Longer Active 02/13/2015 [facility] Promethazine 25 mg, PO, Q6H, PRN as needed for nausea/vomiting Active 02/13/2015 [facility] Docusate 100 mg, PO, BID, PRN as needed for constipation Active 02/13/2015 [facility] Ambien 10 mg, PO, Bedtime, scheduled No Longer Active 02/13/2015 [facility] Sucralfate 100 MG/ML Oral Suspension 1 gm=10 mL, PO, Q6H, scheduled Active 02/13/2015 [facility] Alprazolam 0.5 mg, PO, TID, PRN as needed for anxiety Active 02/13/2015 [facility] Lorazepam 0.5 mg, PO, TID, PRN as needed for anxiety Active 02/13/2015 [facility] Morphine 2 mg, 1 mL, Route: IV, Drug form: INJ, Q4H, Dosing Weight 60.182, kg, PRN Other -See Comment, Start date: 02/13/15 13:27:00, Duration: 30 day, Stop date: 03/15/15 13:26:00Notes: (Same as:MORPhine Sulfate) Inactive 02/13/2015 [facility] Reglan 5 mg, 1 mL, Route: IV, Drug form: INJ, Q6H, Dosing Weight 60.182, kg, PRN as needed for nausea/vomiting, Start date: 02/13/15 13:02:00, Duration: 30 day, Stop date: 03/15/15 13:01:00Notes: (Same as: Reglan) No Longer Active 02/13/2015 [facility] Tylenol 650 mg, 20.3 mL, Route: PO, Drug form: LIQ, QID, Dosing Weight 60.182, kg, PRN For Temp > 100.4 F, Start date: 02/13/15 13:02:00, Duration: 30 day, Stop date: 03/15/15 13:01:00Notes: Max acetaminophe k=1169gq/day (4 gm/day). (Same as: Tylenol) No Longer Active 02/13/2015 [facility] Saline Flush 0.9% 10 ml, Route: IVP, Drug Form: INJ, Dosing Weight 60.182, kg, PRN, PRN Line Flush, Start date: 02/13/15 12:59:00, Duration: 30 day, Stop date: 03/15/15 12:58:00Notes: (Same as: BD Posiflush) No Longer Active 02/13/2015 [facility] Sodium Chloride 0.154 MEQ/ML Injectable Solution 1,000 mL, Rate: 125 ml/hr, Infuse over: 8 hr, Route: IV, Dosing Weight 60.182 kg, Total Volume: 1,000, Start date: 02/13/15 12:59:00, Stop date: 02/16/15 16:43:44 No Longer Active 02/13/2015 [facility] Diphenhydramine 12.5 mg, 0.25 mL, Route: IVP, Drug form: INJ, ONCE, Dosing Weight 60.182, kg, Priority: STAT, Start date: 02/13/15 12:58:00, Stop date: 02/13/15 12:58:00Notes: (Same as: Benadryl) Inactive 02/13/2015 [facility] Morphine 4 mg, 1 mL, Route: IVP, Drug form: INJ, ONCE, Dosing Weight 60.182, kg, Priority: STAT, Start date: 02/13/15 12:58:00, Stop date: 02/13/15 12:58:00Notes: (Same as:MORPhine Sulfate) Inactive 02/13/2015 [facility] Sodium Chloride 0.154 MEQ/ML Injectable Solution 1,000 mL, 1,000 ml/hr, Infuse Over: 1 hr, Route: IV, 1,000, Drug form: INJ, ONCE, Priority: STAT, Dosing Weight 60.182 kg, Start date: 02/13/15 12:57:00, Duration: 1 doses or times, Stop date: 02/13/15 12:57:00 Inactive 02/13/2015 [facility] Ciprofloxacin 400 mg, 200 mL, Route: IVPB, Drug form: INJ, ONCE, Dosing Weight 60.182, kg, Priority: STAT, Start date: 02/13/15 10:46:00, Stop date: 02/13/15 10:46:00Notes: Do not refrigerate Inactive 02/13/2015 [facility] Rocephin 1 gm, Route: IVPB, ONCE, Dosing Weight 60.182, kg, Priority: STAT, Start date: 02/13/15 10:46:00, Stop date: 02/13/15 10:46:00Notes: (Same As: Rocephin). Use with 100ml NS mini-bag PLUS and infuse over 30 min MEDICATION WASTE Product Size: 1000 mg Product Wasted: ___ mg Inactive 02/13/2015 [facility] Labetalol 20 mg, 4 mL, Route: IVP, Drug form: INJ, ONCE, Dosing Weight 60.182, kg, Start date: 02/13/15 9:42:00, Stop date: 02/13/15 9:42:00Notes: (Same as: Normodyne, Trandate) Push over 2 minutes Give bolus over 2-3 minutes. Inactive 02/13/2015 [facility] Promethazine 12.5 mg, 50 mL, Route: IVPB, Drug form: SOLN, ONCE, Dosing Weight 60.182, kg, Priority: STAT, Start date: 02/13/15 9:42:00, Stop date: 02/13/15 9:42:00 Inactive 02/13/2015 [facility] Morphine 4 mg, 1 mL, Route: IVP, Drug form: INJ, ONCE, Dosing Weight 60.182, kg, Priority: STAT, Start date: 02/13/15 9:41:00, Stop date: 02/13/15 9:41:00Notes: (Same as:MORPhine Sulfate) Inactive 02/13/2015 [facility] Reglan 10 mg, 2 mL, Route: IVP, Drug form: INJ, ONCE, Dosing Weight 60.182, kg, Priority: STAT, Start date: 02/13/15 9:33:00, Stop date: 02/13/15 9:33:00Notes: (Same as: Reglan) Inactive 02/13/2015 [facility] Sodium Chloride 0.154 MEQ/ML Injectable Solution 1,000 mL, 1,000 ml/hr, Infuse Over: 1 hr, Route: IV, 1,000, Drug form: INJ, ONCE, Priority: STAT, Dosing Weight 60.182 kg, Start date: 02/13/15 9:32:00, Duration: 1 doses or times, Stop date: 02/13/15 9:32:00 Inactive 02/13/2015 [facility] Saline Flush 0.9% 10 mL, Route: IVP, Drug Form: INJ, Dosing Weight 60.182, kg, PRN, PRN Line Flush, Start date: 02/13/15 9:10:00, Duration: 30 day, Stop date: 03/15/15 9:09:00Notes: (Same as: BD Posiflush) No Longer Active 02/13/2015 [facility] ciprofloxacin 500 mg oral tablet 500 mg=1 tab, PO, Q12H, X 10 day, # 20 tab, 0 Refill(s) Active 01/26/2015 [facility] Hydralazine 20 mg, 1 mL, Route: IVP, Drug form: INJ, ONCE, Dosing Weight 60.17, kg, Priority: STAT, Start date: 01/25/15 21:12:00, Stop date: 01/25/15 21:12:00Notes: (Same as: Apresoline) Push over 5 minutes Inactive 01/26/2015 [facility] Clonidine Hydrochloride 0.2 MG Oral Tablet 0.2 mg, Route: PO, Drug form: TAB, ONCE, Dosing Weight 60.17, kg, Priority: STAT, Start date: 01/25/15 19:22:00, Stop date: 01/25/15 19:22:00 Inactive 01/26/2015 [facility] Benadryl 25 mg, 0.5 mL, Route: IVP, Drug form: INJ, ONCE, Dosing Weight 60.17, kg, Priority: STAT, Start date: 01/25/15 16:46:00, Stop date: 01/25/15 16:46:00Notes: (Same as: Benadryl) Inactive 01/25/2015 [facility] Phenergan 25 mg, 50 mL, Route: IVPB, Drug form: SOLN, ONCE, Dosing Weight 60.17, kg, Priority: STAT, Start date: 01/25/15 16:46:00, Stop date: 01/25/15 16:46:00 Inactive 01/25/2015 [facility] Morphine 4 mg, 1 mL, Route: IVP, Drug form: INJ, ONCE, Dosing Weight 60.17, kg, Priority: STAT, Start date: 01/25/15 16:45:00, Stop date: 01/25/15 16:45:00Notes: (Same as:MORPhine Sulfate) Inactive 01/25/2015 [facility] Sodium Chloride 0.154 MEQ/ML Injectable Solution 1,000 mL, 1000 ml/hr, Infuse Over: 1 hr, Route: IV, 1,000, Drug form: INJ, ONCE, Priority: STAT, Dosing Weight 60.17 kg, Start date: 01/25/15 16:45:00, Duration: 1 doses or times, Stop date: 01/25/15 16:45:00 Inactive 01/25/2015 [facility] Saline Flush 0.9% 10 mL, Route: IVP, Drug Form: INJ, Dosing Weight 60.17, kg, PRN, PRN Line Flush, Start date: 01/25/15 16:45:00, Duration: 30 day, Stop date: 02/24/15 15:44:00Notes: (Same as: BD Posiflush) No Longer Active 01/25/2015 [facility] Procardia XL 30 mg, 1 tab, Route: PO, Drug form: ERTAB, BID, Dosing Weight 60.8, kg, Start date: 12/16/14 21:00:00, Duration: 30 day, Stop date: 01/15/15 9:00:00Notes: (Same as: Procardia XL) "Do Not Crush" "Avoid grapefruit and grapefruit juice" Inactive 12/17/2014 [facility] ferrous sulfate 325 MG Oral Tablet [Feosol] 325 mg=1 tab, PO, TID, # 90 tab, 0 Refill(s) Active 12/16/2014 [facility] Cefuroxime 500 MG Oral Tablet 500 mg=1 tab, PO, BID, X 7 day, # 14 tab, 0 Refill(s) Active 12/16/2014 [facility] Rocephin 1 gm, Route: IVPB, Drug form: PDR/INJ, [id number], Dosing Weight 60.8, kg, Start date: 12/16/14 14:00:00, Duration: 30 day, Stop date: 01/14/15 14:00:00Notes: (Same As: Rocephin). Use with 100ml NS mini-bag PLUS and infuse over 30 min MEDICATION WASTE Product Size: 1000 mg Product Wasted: ___ mg Inactive 12/16/2014 [facility] 24 HR Nifedipine 30 MG Extended Release Tablet [Procardia] 30 mg=1 tab, PO, BID, # 30 tab, 0 Refill(s) Active 12/16/2014 [facility] 24 HR Nifedipine 30 MG Extended Release Tablet 30 mg=1 tab, PO, Daily, # 30 tab, 0 Refill(s) Inactive 12/16/2014 [facility] metoprolol tartrate 100 mg oral tablet 100 mg=1 tab, PO, BID, # 60 tab, 0 Refill(s) Active 12/16/2014 [facility] Sodium Chloride 0.9% (titrate) 250 mL 250 mL, Rate: ehs engineer for use with blood product administration, Dosing Weight 60.8, kg, Route: IV, Total Volume: 250, Start Date: 12/16/14 6:00:00, Duration: 30 day, Stop date: 01/15/15 5:59:00, Replace Every: 24 hr Inactive 12/16/2014 [facility] Clonidine Hydrochloride 0.3 MG Oral Tablet 0.3 mg, 1 tab, Route: PO, Drug form: TAB, BID, Dosing Weight 60.8, kg, Start date: 12/15/14 21:00:00, Duration: 30 day, Stop date: 01/14/15 9:00:00Notes: (Same As: Catapres) Inactive 12/16/2014 [facility] Procardia XL 30 mg, 1 tab, Route: PO, Drug form: ERTAB, Daily, Dosing Weight 60.8, kg, Start date: 12/15/14 17:51:00, Duration: 30 day, Stop date: 01/14/15 9:00:00Notes: (Same as: Procardia XL) "Do Not Crush" "Avoid grapefruit and grapefruit juice" No Longer Active 12/15/2014 [facility] 24 HR Nifedipine 30 MG Extended Release Tablet [Procardia] 30 mg, 1 tab, Route: PO, Drug form: ERTAB, Daily, Dosing Weight 60.8, kg, Start date: 12/15/14 15:00:00, Duration: 30 day, Stop date: 01/14/15 9:00:00Notes: (Same as: Procardia XL) "Do Not Crush" "Avoid grapefruit and grapefruit juice" Inactive 12/15/2014 [facility] Protonix 40 mg, 1 tab, Route: PO, Drug form: ECTAB, Daily, Start date: 12/15/14 9:00:00, Duration: 30 day, Stop date: 01/13/15 9:00:00Notes: Tablet should not be chewed or crushed. (Same as: Protonix) No Longer Active 12/15/2014 [facility] metoprolol tartrate 100 mg, 1 tab, Route: PO, Drug form: TAB, BID, Dosing Weight 60.8, kg, Start date: 12/14/14 21:00:00, Duration: 30 day, Stop date: 01/13/15 9:00:00Notes: (Same as: Lopressor) No Longer Active 12/15/2014 [facility] Sodium Chloride 0.154 MEQ/ML Injectable Solution 1,000 mL, Rate: 50 ml/hr, Infuse over: 20 hr, Route: IV, Dosing Weight 60.8 kg, Total Volume: 1,000, Start date: 12/14/14 18:29:00, Duration: 30 day, Stop date: 01/13/15 18:28:00 No Longer Active 12/14/2014 [facility] Hydralazine 20 mg, 1 mL, Route: IVP, Drug form: INJ, Q4H, Dosing Weight 60.8, kg, PRN Elevated BP, Start date: 12/14/14 8:33:00, Duration: 30 day, Stop date: 01/13/15 8:32:00, sbp>160/100 mmhgNotes: (Same as: Apresoline) Push over 5 minutes No Longer Active 12/14/2014 [facility] Melatonin 3 mg, 1 tab, Route: PO, Drug form: TAB, Bedtime, Dosing Weight 60.8, kg, PRN Sleep, Start date: 12/13/14 21:52:00, Duration: 30 day, Stop date: 01/12/15 21:51:00Notes: (Same as: Melatonin) No Longer Active 12/14/2014 [facility] Ativan 0.5 mg, 1 tab, Route: PO, Drug form: TAB, TID, Dosing Weight 60.8, kg, PRN as needed for anxiety, Start date: 12/13/14 21:52:00, Duration: 30 day, Stop date: 01/12/15 21:51:00Notes: (Same as: Ativan) No Longer Active 12/14/2014 [facility] Labetalol 20 mg, 4 mL, Route: IVP, Drug form: INJ, Q10Min, Dosing Weight 60.8, kg, PRN Other -See Comment, Start date: 12/13/14 17:08:00, Duration: 30 day, Stop date: 01/12/15 17:07:00Notes: (Same as: Normodyne, Trandate) Push over 2 minutes Give bolus over 2-3 minutes. No Longer Active 12/13/2014 [facility] Sodium Chloride 0.9% (titrate) 250 mL 250 mL, Rate: ehs engineer for use with blood product administration, Dosing Weight 60.8, kg, Route: IV, Total Volume: 250, Start Date: 12/13/14 15:31:00, Duration: 30 day, Stop date: 01/12/15 15:30:00, Replace Every: 24 hr No Longer Active 12/13/2014 [facility] Morphine 3 mg, 0.75 mL, Route: IVP, Drug form: INJ, Q4H, Dosing Weight 62.273, kg, PRN Pain Score 7-10, Start date: 12/13/14 13:14:00, Duration: 30 day, Stop date: 01/12/15 13:13:00Notes: (Same as:MORPhine Sulfate) No Longer Active 12/13/2014 [facility] Metoclopramide 5 MG Oral Tablet [Reglan] 5 mg, 0.5 tab, Route: PO, Drug form: TAB, QID-Before Meals, Dosing Weight 60.8, kg, Start date: 12/13/14 11:30:00, Duration: 30 day, Stop date: 01/12/15 7:30:00Notes: (Same as: Reglan) Take 30 min before meals No Longer Active 12/13/2014 [facility] MS Contin 30 mg, 1 tab, Route: PO, Drug form: ERTAB, Q6H, Dosing Weight 60.8, kg, PRN Pain Score 7-10, hold for sedation, Start date: 12/13/14 11:05:00, Duration: 30 day, Stop date: 01/12/15 11:04:00Notes: Do not crush (Same as:Oramorph SR, MS Contin) Inactive 12/13/2014 [facility] metoprolol tartrate 50 mg, 1 tab, Route: PO, Drug form: TAB, BID, Dosing Weight 60.8, kg, Start date: 12/13/14 9:00:00, Duration: 30 day, Stop date: 01/11/15 21:00:00Notes: (Same as: Lopressor) No Longer Active 12/13/2014 [facility] Protonix 40 mg, Route: IVP, Drug form: INJ, Daily, Dosing Weight 62.273, kg, Start date: 12/13/14 9:00:00, Duration: 30 day, Stop date: 01/11/15 9:00:00Notes: For IV push reconstitute with 10 ml 0.9% sodium chloride and push over 2 minutes. (Same as: Protonix) No Longer Active 12/13/2014 [facility] Phenergan 25 mg, 1 tab, Route: PO, Drug form: TAB, Q6H, Dosing Weight 60.8, kg, PRN as needed for nausea/vomiting, hold for sedation, Start date: 12/13/14 8:31:00, Duration: 30 day, Stop date: 01/12/15 8:30:00 Notes: (Same as: Phenergan) No Longer Active 12/13/2014 [facility] Alprazolam 0.5 MG Oral Tablet [Xanax] 0.5 mg, 1 tab, Route: PO, Drug form: TAB, TID, Dosing Weight 60.8, kg, PRN as needed for anxiety, please hold for sedation, Start date: 12/13/14 8:29:00, Duration: 30 day, Stop date: 01/12/15 8:28:00Notes: With food or milk (Same as: Xanax) Inactive 12/13/2014 [facility] Levaquin 750 mg, 150 mL, Route: IVPB, Drug form: SOLN, [id number], Dosing Weight 60.8, kg, For CrCl=20 -49ml/min, Start date: 12/13/14 1:00:00, Duration: 30 day, Stop date: 01/10/15 1:00:00Notes: (Same as:Levaquin) No Longer Active 12/13/2014 [facility] Benadryl 10 mg, 0.2 mL, Route: IVP, Drug form: INJ, QID, Dosing Weight 60.8, kg, PRN Itching, Start date: 12/13/14 0:07:00, Duration: 30 day, Stop date: 01/12/15 0:06:00Notes: (Same as: Benadryl) No Longer Active 12/13/2014 [facility] meclizine 25 mg oral tablet 25 mg=1 tab, PO, TID, 0 Refill(s) Active 12/13/2014 [facility] Promethazine Hydrochloride 25 MG Oral Tablet [Phenergan] 25 mg=1 tab, PO, Q6H, 0 Refill(s) Active 12/13/2014 [facility] Aluminum Hydroxide 80 MG/ML / Magnesium Hydroxide 80 MG/ML / Simethicone 8 MG/ML Oral Suspension [Maalox Max] 5 ml, PO, Q6H, PRN Indigestion, 0 Refill(s) Active 12/13/2014 [facility] Metoclopramide 5 MG Oral Tablet [Reglan] 5 mg=1 tab, PO, QID, 30 minutes before meals and at bedtime, 0 Refill(s)Special Instructions: 30 minutes before meals and at bedtime Active 12/13/2014 [facility] Magnesium Sulfate 2 gm, Route: IVPB, Drug form: INJ, ONCE, Dosing Weight 62.273, kg, Total dose=2 gm, Start date: 12/12/14 22:46:00, Duration: 1 doses or times, Stop date: 12/12/14 22:46:00 Inactive 12/13/2014 [facility] Glucagon 1 mg, Route: IM, Drug form: PDR/INJ, PRN, Dosing Weight 62.273, kg, PRN Blood Glucose Results, Start date: 12/12/14 22:38:00, Duration: 30 day, Stop date: 01/11/15 22:37:00 No Longer Active 12/13/2014 [facility] Dextrose 50% Syringe 12.5 gm, 25 mL, Route: IVP, Drug Form: INJ, Dosing Weight 62.273, kg, PRN, PRN Blood Glucose Results, Start date: 12/12/14 22:38:00, Duration: 30 day, Stop date: 01/11/15 22:37:00 No Longer Active 12/13/2014 [facility] Insulin, Aspart, Human 2 unit, 0.02 mL, [...] days from Date No Longer Active 12/13/2014 [facility] Morphine 4 mg, Route: IVP, Drug form: INJ, ONCE, Dosing Weight 62.273, kg, Priority: STAT, Start date: 12/12/14 21:03:00, Stop date: 12/12/14 21:03:00 Inactive 12/13/2014 [facility] Acetaminophen 650 mg, 2 tab, Route: PO, Drug form: TAB, Q4H, Dosing Weight 62.273, kg, PRN Pain 1-3/Temp > 100.4 F, Start date: 12/12/14 20:50:00, Duration: 30 day, Stop date: 01/11/15 20:49:00Notes: Do not exceed 4 gm/day. (Same as: Tylenol) No Longer Active 12/13/2014 [facility] Docusate 100 mg, 1 cap, Route: PO, Drug form: CAP, BID, Dosing Weight 62.273, kg, PRN Constipation, Start date: 12/12/14 20:50:00, Duration: 30 day, Stop date: 01/11/15 20:49:00Notes: (Same as: Colace) (Do Not Crush) No Longer Active 12/13/2014 [facility] Morphine 2 mg, 1 mL, Route: IVP, Drug form: INJ, Q4H, Dosing Weight 62.273, kg, PRN Pain Score 7-10, Start date: 12/12/14 20:50:00, Duration: 30 day, Stop date: 01/11/15 20:49:00Notes: (Same as:MORPhine Sulfate) No Longer Active 12/13/2014 [facility] Sodium Chloride 0.154 MEQ/ML Injectable Solution 1,000 mL, Rate: 125 ml/hr, Infuse over: 8 hr, Route: IV, Dosing Weight 62.273 kg, Total Volume: 1,000, Start date: 12/12/14 20:50:00, Duration: 30 day, Stop date: 01/11/15 20:49:00 No Longer Active 12/13/2014 [facility] Saline Flush 0.9% 10 ml, Route: IVP, Drug Form: INJ, Dosing Weight 62.273, kg, PRN, PRN Line Flush, Start date: 12/12/14 20:50:00, Duration: 30 day, Stop date: 01/11/15 20:49:00Notes: (Same as: BD Posiflush) No Longer Active 12/13/2014 [facility] Benadryl 25 mg, 0.5 mL, Route: IVP, Drug form: INJ, ONCE, Dosing Weight 62.273, kg, Priority: STAT, Start date: 12/12/14 20:37:00, Stop date: 12/12/14 20:37:00Notes: (Same as: Benadryl) Inactive 12/13/2014 [facility] Morphine 4 mg, 1 mL, Route: IVP, Drug form: INJ, ONCE, Dosing Weight 62.273, kg, Priority: STAT, Start date: 12/12/14 20:37:00, Stop date: 12/12/14 20:37:00Notes: (Same as:MORPhine Sulfate) Inactive 12/13/2014 [facility] Sodium Chloride 0.9% (titrate) 250 mL 250 mL, Rate: Underwriting Support Manager for use with blood product administration., Dosing Weight 62.273, kg, Route: IV, Total Volume: 250, Priority: Routine, Start Date: 12/12/14 20:12:00, Duration: 96 hr, Stop date: 12/16/14 20:11:00, Replace Every: 24 hr No Longer Active 12/13/2014 [facility] Magnesium Sulfate 2 gm, 50 mL, Route: IVPB, Drug form: INJ, ONCE, Dosing Weight 62.273, kg, Start date: 12/12/14 20:10:00, Duration: 2 hr, Stop date: 12/12/14 20:10:00 Inactive 12/13/2014 [facility] Insulin regular 10 unit, 0.1 mL, Route: [...] Expires in days from Date Inactive 12/13/2014 [facility] Sodium Chloride 0.154 MEQ/ML Injectable Solution 1,000 mL, 1000 ml/hr, Infuse Over: 1 hr, Route: IV, 1,000, Drug form: INJ, ONCE, Priority: STAT, Dosing Weight 62.273 kg, Start date: 12/12/14 20:09:00, Duration: 1 doses or times, Stop date: 12/12/14 20:09:00 No Longer Active 12/13/2014 [facility] Rocephin 1 gm, Route: IVPB, Drug form: PDR/INJ, ONCE, Dosing Weight 62.273, kg, Priority: STAT, Start date: 12/12/14 20:01:00, Stop date: 12/12/14 20:01:00Notes: (Same As: Rocephin). Use with 100ml NS mini-bag PLUS and infuse over 30 min MEDICATION WASTE Product Size: 1000 mg Product Wasted: ___ mg Inactive 12/13/2014 [facility] GI cocktail 30 mL, Route: PO, Drug Form: SUSP, Dosing Weight 62.273, kg, ONCE, STAT, Start date: 12/12/14 18:26:00, Stop date: 12/12/14 18:26:00Notes: G.I. Cocktail=antacid with simethicone 22.5 mL - lidocaine v iscous 7.5 mL Inactive 12/12/2014 [facility] Valium 5 mg, 1 mL, Route: IVP, Drug form: INJ, ONCE, Dosing Weight 62.273, kg, Priority: STAT, Start date: 12/12/14 18:26:00, Stop date: 12/12/14 18:26:00Notes: (Same as: Valium) Inactive 12/12/2014 [facility] Metoclopramide 10 mg, 2 mL, Route: IVP, Drug form: INJ, ONCE, Dosing Weight 62.273, kg, Priority: STAT, Start date: 12/12/14 17:36:00, Stop date: 12/12/14 17:36:00Notes: (Same as: Reglan) Inactive 12/12/2014 [facility] Saline Flush 0.9% 10 mL, Route: IVP, Drug Form: INJ, Dosing Weight 62.273, kg, PRN, PRN Line Flush, Start date: 12/12/14 17:36:00, Duration: 30 day, Stop date: 01/11/15 17:35:00Notes: (Same as: BD Posiflush) Inactive 12/12/2014 [facility] Sodium Chloride 0.154 MEQ/ML Injectable Solution 1,000 mL, 1000 ml/hr, Infuse Over: 1 hr, Route: IV, 1,000, Drug form: INJ, ONCE, Priority: STAT, Dosing Weight 62.273 kg, Start date: 12/12/14 17:36:00, Duration: 1 doses or times, Stop date: 12/12/14 17:36:00 Inactive 12/12/2014 [facility] Metoclopramide 10 MG Oral Tablet [Reglan] 10 mg=1 tab, PO, QID, 30 minutes before meals and at bedtime, X 3 day, # 12 tab, 0 Refill(s)Special Instructions: 30 minutes before meals and at bedtime Active 08/15/2014 [facility] Morphine 4 mg, Route: IVP, Drug form: INJ, ONCE, Dosing Weight 63.182, kg, Priority: STAT, Start date: 08/14/14 21:58:00, Stop date: 08/14/14 21:58:00 Inactive 08/15/2014 [facility] Hydralazine 10 mg, 0.5 mL, Route: IVP, Drug form: INJ, ONCE, Dosing Weight 63.182, kg, Priority: STAT, Start date: 08/14/14 20:23:00, Stop date: 08/14/14 20:23:00Notes: (Same as: Apresoline) Push over 5 minutes Inactive 08/15/2014 [facility] Neutra-Phos 1 pkt, Route: PO, Drug Form: PDR/REC, Dosing Weight 63.182, kg, ONCE, Start date: 08/14/14 20:21:00, Stop date: 08/14/14 20:21:00Notes: (Same as: Neutra-Phos) Each 1.25 gm pkt has 250mg phosphorous. Mix w/2.5oz water and stir. Inactive 08/15/2014 [facility] Neutra-Phos 1 pkt, Route: PO, Drug Form: PDR/REC, Dosing Weight 63.182, kg, ONCE, Start date: 08/14/14 20:08:00, Stop date: 08/14/14 20:08:00Notes: (Same as: Neutra-Phos) Each 1.25 gm pkt has 250mg phosphorous. Mix w/2.5oz water and stir. Inactive 08/15/2014 [facility] Magnesium Sulfate 2 gm, 50 mL, Route: IV, Drug form: INJ, ONCE, Dosing Weight 63.182, kg, Priority: STAT, Start date: 08/14/14 20:07:00, Stop date: 08/14/14 20:07:00 Inactive 08/15/2014 [facility] Morphine 4 mg, 1 mL, Route: IVP, Drug form: INJ, ONCE, Dosing Weight 63.182, kg, Priority: STAT, Start date: 08/14/14 19:57:00, Stop date: 08/14/14 19:57:00Notes: (Same as:MORPhine Sulfate) Inactive 08/15/2014 [facility] Metoprolol 5 mg, 5 mL, Route: IVP, Drug form: INJ, ONCE, Dosing Weight 60.364, kg, Priority: STAT, Start date: 08/14/14 17:55:00, Stop date: 08/14/14 17:55:00Notes: (Same as: Lopressor) Push over 2 minutes Inactive 08/14/2014 [facility] Benadryl 50 mg, 2 tab, Route: PO, Drug form: TAB, ONCE, Dosing Weight 60.364, kg, Priority: STAT, Start date: 08/14/14 17:54:00, Stop date: 08/14/14 17:54:00 Inactive 08/14/2014 [facility] Saline Flush 0.9% 10 mL, Route: IVP, Drug Form: INJ, Dosing Weight 60.364, kg, PRN, PRN Line Flush, Start date: 08/14/14 17:54:00, Duration: 30 day, Stop date: 09/13/14 17:53:00Notes: preservative free. No Longer Active 08/14/2014 [facility] Sodium Chloride 0.154 MEQ/ML Injectable Solution 1,000 mL, 1000 ml/hr, Infuse Over: 1 hr, Route: IV, 1,000, Drug form: INJ, ONCE, Priority: STAT, Dosing Weight 60.364 kg, Start date: 08/14/14 17:54:00, Duration: 1 doses or times, Stop date: 08/14/14 17:54:00 Inactive 08/14/2014 [facility] Metoclopramide 10 mg, 2 mL, Route: IVP, Drug form: INJ, ONCE, Dosing Weight 60.364, kg, Priority: STAT, Start date: 08/14/14 17:54:00, Stop date: 08/14/14 17:54:00Notes: (Same as: Reglan) Inactive 08/14/2014 [facility] pantoprazole 40 mg, Route: IVP, Drug form: INJ, ONCE, Dosing Weight 60.364, kg, For IV push reconstitute with 10 ml 0.9% sodium chloride and push over at least 3 minutes, Priority: STAT, Start date: 08/14/14 17:54:00, Stop date: 08/14/14 17:54:00Notes: For IV push reconstitute with 10 ml 0.9% sodium chloride and push over 2 minutes. (Same as: Protonix) Inactive 08/14/2014 [facility] Promethazine Hydrochloride 25 MG Oral Tablet [Phenergan] 25 mg=1 tab, PO, Q6H, PRN Nausea, X 4 day, # 15 tab, 0 Refill(s) Active 08/13/2014 [facility] Acetaminophen 300 MG / Codeine Phosphate 30 MG Oral Tablet [Tylenol with Codeine #3] 2 tab, PO, Q6H, PRN for pain, X 7 day, # 56 tab, 0 Refill(s) Active 08/13/2014 [facility] metoprolol tartrate 50 mg oral tablet 50 mg=1 tab, PO, BID, # 60 tab, 0 Refill(s) Active 08/13/2014 [facility] Metoclopramide 10 MG Oral Tablet [Reglan] 10 mg, PO, QID- Before Meals, X 7 day, # 60 tab, 0 Refill(s) Active 08/13/2014 [facility] Potassium Chloride 1.33 MEQ/ML Oral Solution 40 mEq, 30 mL, Route: PO, Drug form: LIQ, Q1H, Dosing Weight 60.364, kg, Start date: 08/12/14 13:00:00, Duration: 2 doses or times, Stop date: 08/12/14 14:00:00Notes: (Same as: Potassium Chloride) Inactive 08/12/2014 [facility] Magnesium Sulfate 3 gm, 50 mL, Route: IVPB, Drug form: INJ, ONCE, Dosing Weight 60.364, kg, Start date: 08/12/14 12:04:00, Stop date: 08/12/14 12:04:00Notes: (Same as: MgSO4) Final Volume: 50ml Inactive 08/12/2014 [facility] Levemir FlexPen 70 unit, 0.7 mL, Route: SUB-Q, Drug form: INJ, Daily, Start date: 08/12/14 10:00:00, Duration: 30 day, Stop date: 09/11/14 9:00:00Notes: Same as Levemir Do not hold insulin without contacting prescriber "single patient use only" Inactive 08/12/2014 [facility] Lantus Route: SUB-Q, Daily, Dosing Weight 60.364, kg, Start date: 08/12/14 9:00:00, Duration: 30 day, Stop date: 09/10/14 9:00:00 Inactive 08/12/2014 [facility] Labetalol 40 mg, Route: PO, BID, Dosing Weight 60.364, kg, Start date: 08/12/14 9:00:00, Duration: 30 day, Stop date: 09/10/14 17:00:00 No Longer Active 08/12/2014 [facility] Losartan 50 mg, 1 tab, Route: PO, Drug form: TAB, Daily, Dosing Weight 60.364, kg, Start date: 08/12/14 9:00:00, Duration: 30 day, Stop date: 09/10/14 9:00:00Notes: (Same as: Cozaar) No Longer Active 08/12/2014 [facility] digoxin 125 mcg (0.125 mg) oral tablet 0.125 mg, 1 tab, Route: PO, Drug form: TAB, Daily, Dosing Weight 60.364, kg, Start date: 08/12/14 9:00:00, Duration: 30 day, Stop date: 09/10/14 9:00:00Notes: Take on an Empty Stomach (Same as: Lanoxin) No Longer Active 08/12/2014 [facility] metoprolol tartrate 50 mg, 1 tab, Route: PO, Drug form: TAB, Q12H, Dosing Weight 60.364, kg, Start date: 08/12/14 9:00:00, Duration: 30 day, Stop date: 09/10/14 21:00:00Notes: (Same as: Lopressor) No Longer Active 08/12/2014 [facility] Levemir FlexPen 35 unit, 0.35 mL, Route: SUB-Q, Drug form: INJ, Q12H, Priority: STAT, Start date: 08/12/14 9:00:00, Duration: 30 day, Stop date: 09/10/14 21:00:00Notes: Same as Levemir Do not hold insulin without conta cting prescriber "single patient use only" No Longer Active 08/12/2014 [facility] Hydralazine Hydrochloride 50 MG Oral Tablet 50 mg, 1 tab, Route: PO, Drug form: TAB, Q6H, Dosing Weight 60.364, kg, Start date: 08/12/14 0:00:00, Duration: 30 day, Stop date: 09/10/14 18:00:00Notes: (Same as: Apresoline) May interfere w/enteral feedings Take With Food Inactive 08/12/2014 [facility] Insulin regular 100 unit + Sodium Chloride 0.9% (titrate) 99 mL 99 mL, Rate: Titrate per ICU dosing guidelines, Dosing Weight 60.364, kg, Route: IV, Total Volume: 100 mL, Start Date: 08/11/14 22:04:00, Duration: 30 day, Stop date: 09/10/14 22:03:00, Replace Every: 24 hrNotes: (Same as: Humulin R and NovoLIN R) (Do not shake) No Longer Active 08/12/2014 [facility] Labetalol 100 mg, 1 tab, Route: PO, Drug form: TAB, BID, Dosing Weight 60.364, kg, Start date: 08/11/14 21:00:00, Duration: 30 day, Stop date: 09/10/14 9:00:00Notes: With food. (Same as:Trandate, Normodyne) No Longer Active 08/12/2014 [facility] Dextrose 50% Syringe 12.5 gm, 25 mL, Route: IVP, Drug Form: INJ, Dosing Weight 60.364, kg, PRN, PRN Blood Glucose Results, Start date: 08/11/14 19:26:00, Duration: 30 day, Stop date: 09/10/14 19:25:00 No Longer Active 08/12/2014 [facility] Glucagon 1 mg, Route: IM, Drug form: PDR/INJ, PRN, Dosing Weight 60.364, kg, PRN Blood Glucose Results, Start date: 08/11/14 19:26:00, Duration: 30 day, Stop date: 09/10/14 19:25:00 No Longer Active 08/12/2014 [facility] Insulin, Aspart, Human 4 unit, 0.04 mL, [...] days from Date No Longer Active 08/12/2014 [facility] Metoprolol 5 mg, 5 mL, Route: IVP, Drug form: INJ, Q2MIN, Dosing Weight 60.364, kg, PRN Other -See Comment, Start date: 08/11/14 19:05:00, Duration: 30 day, Stop date: 09/10/14 19:04:00Notes: (Same as: Lopressor) Push over 2 minutes No Longer Active 08/12/2014 [facility] Labetalol 20 mg, 4 mL, Route: IVP, Drug form: INJ, ONCE, Dosing Weight 60.364, kg, Start date: 08/11/14 19:04:00, Stop date: 08/11/14 19:04:00Notes: (Same as: Normodyne, Trandate) Push over 2 minutes Give bolus over 2-3 minutes. Inactive 08/12/2014 [facility] Sucralfate 100 MG/ML Oral Suspension [Carafate] 1 [...] (Same As: Carafate) No Longer Active 08/11/2014 [facility] Cardene 40 mg in NS 200 ml IV 40 mg 40 mg, 200 mL, Rate: Titrate, Dosing Weight 60.364, kg, Route: IV, Total Volume: 200 mL, Start Date: 08/11/14 13:13:00, Duration: 30 day, Stop date: 09/10/14 13:12:00, Replace Every: 12 hrNotes: Same as: Cardene Concentration: (0.2 mg /1 ml ) No Longer Active 08/11/2014 [facility] Morphine 4 mg, 1 mL, Route: IVP, Drug form: INJ, Q3H, Dosing Weight 60.455, kg, PRN Pain Score 7-10, Start date: 08/11/14 8:13:00, Duration: 30 day, Stop date: 09/10/14 8:12:00Notes: (Same as:MORPhine Sulfate) No Longer Active 08/11/2014 [facility] Phenergan 12.5 mg, 50 mL, Route: IVPB, Drug form: SOLN, Q4H, Dosing Weight 60.364, kg, PRN Nausea & Vomiting, Start date: 08/11/14 2:10:00, Duration: 30 day, Stop date: 09/10/14 2:09:00 No Longer Active 08/11/2014 [facility] Flagyl 500 mg, 100 mL, Route: IVPB, Drug form: INJ, [id number], Dosing Weight 60.364, kg, Start date: 08/10/14 14:00:00, Duration: 30 day, Stop date: 09/09/14 6:00:00Notes: (Same as: Flagyl) Avoid alcohol. No Longer Active 08/10/2014 [facility] Alprazolam 0.5 MG Oral Tablet [Xanax] 0.5 mg, 1 tab, Route: PO, Drug form: TAB, TID, Dosing Weight 60.364, kg, PRN as needed for anxiety, Start date: 08/10/14 13:53:00, Duration: 30 day, Stop date: 09/09/14 13:52:00Notes: With food or milk (Same as: Xanax) No Longer Active 08/10/2014 [facility] Flagyl 500 mg, Route: IVPB, [id number], Dosing Weight 60.364, kg, Start date: 08/10/14 13:00:00, Duration: 30 day, Stop date: 09/09/14 5:00:00 Inactive 08/10/2014 [facility] Ciprofloxacin 400 mg, Route: IVPB, [id number], Dosing Weight 60.364, kg, Start date: 08/10/14 13:00:00, Duration: 30 day, Stop date: 09/09/14 1:00:00 Inactive 08/10/2014 [facility] Enoxaparin 40 mg, 0.4 mL, Route: SUB-Q, Drug form: INJ, [id number], Dosing Weight 60.455, kg, Start date: 08/10/14 13:00:00, Duration: 30 day, Stop date: 09/08/14 13:00:00Notes: (Same as: Lovenox) No Longer Active 08/10/2014 [facility] Benadryl 25 mg, 1 tab, Route: PO, Drug form: TAB, TID, Dosing Weight 60.364, kg, PRN Itching, Start date: 08/10/14 12:52:00, Duration: 30 day, Stop date: 09/09/14 12:51:00 No Longer Active 08/10/2014 [facility] Insulin, Aspart, Human 4 unit, 0.04 mL, [...] days from Date No Longer Active 08/10/2014 [facility] Dextrose 50% Syringe 12.5 gm, 25 mL, Route: IVP, Drug Form: INJ, Dosing Weight 60.364, kg, PRN, PRN Blood Glucose Results, Start date: 08/10/14 12:51:00, Duration: 30 day, Stop date: 09/09/14 12:50:00 No Longer Active 08/10/2014 [facility] Glucagon 1 mg, Route: IM, Drug form: PDR/INJ, PRN, Dosing Weight 60.364, kg, PRN Blood Glucose Results, Start date: 08/10/14 12:51:00, Duration: 30 day, Stop date: 09/09/14 12:50:00 No Longer Active 08/10/2014 [facility] Ciprofloxacin 400 mg, 200 mL, Route: IVPB, Drug form: INJ, [id number], Dosing Weight 60.364, kg, Start date: 08/10/14 12:00:00, Duration: 30 day, Stop date: 09/09/14 0:00:00Notes: Do not refrigerate No Longer Active 08/10/2014 [facility] Lantus 70 units, SUB-Q, Daily, 0 Refill(s) Active 08/10/2014 [facility] Insulin regular SUB-Q, PER HOME SLIDING SCALE, 0 Refill(s)Special Instructions: PER HOME SLIDING SCALE Active 08/10/2014 [facility] ferrous sulfate 325 mg oral enteric coated tablet 325 mg=1 tab, PO, Daily, # 30 tab, 0 Refill(s) Active 08/10/2014 [facility] Docusate Sodium 100 MG Oral Capsule [Colace] 100 mg=1 cap, PO, Daily, PRN Constipation, # 20 cap, 0 Refill(s) Active 08/10/2014 [facility] losartan 50 mg oral tablet 50 mg=1 tab, PO, Daily, # 30 tab, 0 Refill(s) Active 08/10/2014 [facility] Lidocaine 50 mg/mL, PO, Q6H, 0 Refill(s) Active 08/10/2014 [facility] metoprolol tartrate 50 mg oral tablet 50 mg=1 tab, PO, BID, 0 Refill(s) No Longer Active 08/10/2014 [facility] Sucralfate 100 MG/ML Oral Suspension [Carafate] 1 gm=10 mL, PO, Q6H, 0 Refill(s) Active 08/10/2014 [facility] Lantus 70 units, SUB-Q, Daily, 0 Refill(s) Inactive 08/10/2014 [facility] Labetalol 20 mg, 4 mL, Route: IV, Drug form: INJ, Q2H, Dosing Weight 60.455, kg, PRN Tachycardia, Start date: 08/10/14 9:02:00, Duration: 30 day, Stop date: 09/09/14 9:01:00, for sbp> 190Notes: (Same as: Normodyne, Trandate) Push over 2 minutes Give bolus over 2-3 minutes. No Longer Active 08/10/2014 [facility] Hydralazine 20 mg, 1 mL, Route: IV, Drug form: INJ, Q4H, Dosing Weight 60.455, kg, PRN Hypertension, Start date: 08/10/14 9:02:00, Duration: 30 day, Stop date: 09/09/14 9:01:00, for sbp> 150Notes: (Same as: Apre soline) Push over 5 minutes No Longer Active 08/10/2014 [facility] Morphine 4 mg, 1 mL, Route: IVP, Drug form: INJ, Q4H, Dosing Weight 60.455, kg, PRN Pain Score 7-10, Start date: 08/10/14 9:00:00, Duration: 30 day, Stop date: 09/09/14 8:59:00Notes: (Same as:MORPhine Sulfate) No Longer Active 08/10/2014 [facility] pantoprazole 40 mg, Route: IV, Drug form: INJ, Before Dinner, Dosing Weight 60.455, kg, Start date: 08/10/14 9:00:00, Duration: 30 day, Stop date: 09/08/14 16:30:00Notes: For IV push reconstitute with 10 ml 0.9% sodium chloride and push over 2 minutes. (Same as: Protonix) No Longer Active 08/10/2014 [facility] Reglan 10 mg, 2 mL, Route: IVP, Drug form: INJ, Q6H, Dosing Weight 60.455, kg, Priority: STAT, Start date: 08/10/14 9:00:00, Duration: 30 day, Stop date: 09/09/14 6:00:00Notes: (Same as: Reglan) No Longer Active 08/10/2014 [facility] Sodium Chloride 0.154 MEQ/ML Injectable Solution 1,000 mL, Rate: 150 ml/hr, Infuse over: 6.7 hr, Route: IV, Dosing Weight 60.455 kg, Total Volume: 1,000, Start date: 08/10/14 9:00:00, Duration: 30 day, Stop date: 09/09/14 8:59:00 No Longer Active 08/10/2014 [facility] Saline Flush 0.9% 10 ml, Route: IVP, Drug Form: INJ, Dosing Weight 60.455, kg, PRN, PRN Line Flush, Start date: 08/10/14 9:00:00, Duration: 30 day, Stop date: 09/09/14 8:59:00Notes: (Same as: BD Posiflush) No Longer Active 08/10/2014 [facility] Morphine 4 mg, Route: IVP, Drug form: INJ, ONCE, Dosing Weight 60.455, kg, Priority: STAT, Start date: 08/10/14 8:47:00, Stop date: 08/10/14 8:47:00 Inactive 08/10/2014 [facility] Labetalol 20 mg, 4 mL, Route: IVP, Drug form: INJ, ONCE, Dosing Weight 60.455, kg, Priority: STAT, Start date: 08/10/14 8:13:00, Stop date: 08/10/14 8:13:00Notes: (Same as: Normodyne, Trandate) Push over 2 minutes Give bolus over 2-3 minutes. Inactive 08/10/2014 [facility] Hydralazine 15 mg, Route: IVP, ONCE, Dosing Weight 60.455, kg, Priority: STAT, Start date: 08/10/14 8:03:00, Stop date: 08/10/14 8:03:00 Inactive 08/10/2014 [facility] Valium 5 mg, 1 mL, Route: IVP, Drug form: INJ, ONCE, Dosing Weight 60.455, kg, Priority: STAT, Start date: 08/10/14 7:28:00, Stop date: 08/10/14 7:28:00Notes: (Same as: Valium) Inactive 08/10/2014 [facility] Benadryl 25 mg, 0.5 mL, Route: IV, Drug form: INJ, ONCE, Dosing Weight 60.455, kg, Start date: 08/10/14 7:25:00, Stop date: 08/10/14 7:25:00Notes: (Same as: Benadryl) Inactive 08/10/2014 [facility] Benadryl 25 mg, Route: IVPB, ONCE, Dosing Weight 60.455, kg, Start date: 08/10/14 7:21:00, Stop date: 08/10/14 7:21:00 Inactive 08/10/2014 [facility] Sodium Chloride 0.154 MEQ/ML Injectable Solution 1,000 mL, 1,000 ml/hr, Infuse Over: 1 hr, Route: IV, 1,000, Drug form: INJ, ONCE, Priority: STAT, Dosing Weight 60.455 kg, Start date: 08/10/14 7:17:00, Duration: 1 doses or times, Stop date: 08/10/14 7:17:00 Inactive 08/10/2014 [facility] Phenergan 25 mg, Route: IM, ONCE, Dosing Weight 60.455, kg, Priority: STAT, Start date: 08/10/14 5:40:00, Stop date: 08/10/14 5:40:00 Inactive 08/10/2014 [facility] Insulin regular 10 unit, 0.1 mL, Route: [...] Expires in days from Date Inactive 08/10/2014 [facility] Morphine 4 mg, 1 mL, Route: IVP, Drug form: INJ, ONCE, Dosing Weight 60.455, kg, Priority: STAT, Start date: 08/10/14 4:41:00, Stop date: 08/10/14 4:41:00Notes: (Same as:MORPhine Sulfate) Inactive 08/10/2014 [facility] Sodium Chloride 0.154 MEQ/ML Injectable Solution 1,000 mL, 1,000 ml/hr, Infuse Over: 1 hr, Route: IV, 1,000, Drug form: INJ, ONCE, Priority: STAT, Dosing Weight 60.455 kg, Start date: 08/10/14 4:41:00, Duration: 1 doses or times, Stop date: 08/10/14 4:41:00 Inactive 08/10/2014 [facility] Clonidine Hydrochloride 0.1 MG Oral Tablet 0.1 mg, 1 tab, Route: PO, Drug form: TAB, TID, Dosing Weight 62.813, kg, PRN Elevated BP, Priority: STAT, Start date: 07/09/14 20:02:00, Duration: 30 day, Stop date: 08/08/14 20:01:00, sbp >/=180Notes: (Same As: Catapres) Inactive 07/10/2014 [facility] Hydralazine 10 mg, 0.5 mL, Route: IVP, Drug form: INJ, Q6H, Dosing Weight 62.813, kg, PRN Other -See Comment, Start date: 07/09/14 20:00:00, Duration: 30 day, Stop date: 08/08/14 19:59:00, SBP>/=160 OR DBP> /=90Notes: (Same as: Apresoline) Push over 5 minutes Inactive 07/10/2014 [facility] Lopressor 5 mg, 5 mL, Route: IVP, Drug form: INJ, Q6H, Dosing Weight 62.813, kg, PRN Other -See Comment, Priority: STAT, Start date: 07/09/14 19:59:00, Duration: 30 day, Stop date: 08/08/14 19:58:00, HR >/=100 OR SBP >/=175Notes: (Same as: Lopressor) Push over 2 minutes Inactive 07/10/2014 [facility] lidocaine 1% 5 mL, Route: INTRADERM, Drug Form: INJ, Dosing Weight 62.813, kg, ONCALL, Start date: 07/09/14 14:00:00, Duration: 30 day, Stop date: 08/08/14 13:59:00Notes: Preservative free. (Same as: Xylocaine MPF) Inactive 07/09/2014 [facility] Morphine 2 mg, 1 mL, Route: IVP, Drug form: INJ, ONCE, Dosing Weight 62.813, kg, Start date: 07/09/14 12:07:00, Stop date: 07/09/14 12:07:00Notes: (Same as:MORPhine Sulfate) Inactive 07/09/2014 [facility] Benadryl 12.5 mg, 0.25 mL, Route: IV, Drug form: INJ, ONCE, Dosing Weight 62.813, kg, Start date: 07/09/14 12:07:00, Stop date: 07/09/14 12:07:00Notes: (Same as: Benadryl) Inactive 07/09/2014 [facility] Digoxin 250 microgram, 1 tab, Route: PO, Drug form: TAB, Daily, Dosing Weight 62.813, kg, Start date: 07/09/14 9:00:00, Duration: 30 day, Stop date: 08/07/14 9:00:00Notes: Take on an Empty Stomach (Same as: Lanoxin) Inactive 07/09/2014 [facility] Insulin Glargine 10 unit, 0.1 mL, Route: SUB-Q, Drug form: INJ, Bedtime, Dosing Weight 63.409, kg, Start date: 07/08/14 21:00:00, Duration: 30 day, Stop date: 08/06/14 21:00:00Notes: Same as Lantus Solostar PEN Do not hold insulin without contacting prescriber "single patient use only" Stable for 28 days at room temperature. Expires in days from Date Inactive 07/09/2014 [facility] Levemir FlexPen 10 unit, 0.1 mL, Route: SUB-Q, Drug form: INJ, Bedtime, Start date: 07/08/14 21:00:00, Duration: 30 day, Stop date: 08/06/14 21:00:00Notes: Same as Levemir Do not hold insulin without contacting prescriber "single patient use only" No Longer Active 07/09/2014 [facility] Alprazolam 1 MG Oral Tablet [Xanax] 1 mg, 1 tab, Route: PO, Drug form: TAB, QID, Dosing Weight 62.813, kg, PRN Anxiety, Start date: 07/08/14 20:58:00, Duration: 30 day, Stop date: 08/07/14 20:57:00Notes: With food or milk (Same as: Xanax) No Longer Active 07/09/2014 [facility] MS Contin 30 mg, PO, Q6H, 0 Refill(s) Active 07/09/2014 [facility] Xanax 1 mg, PO, QID, 0 Refill(s) Active 07/09/2014 [facility] GI cocktail PO, Q6H, 0 Refill(s) Active 07/09/2014 [facility] Digoxin 250 microgram, PO, Daily, 0 Refill(s) Active 07/09/2014 [facility] Metoprolol Tartrate 25 mg oral tablet 25 mg=1 tab, PO, BID, # 60 tab, 0 Refill(s) Active 07/09/2014 [facility] Benadryl 25 mg, PO, QID, 0 Refill(s) Active 07/09/2014 [facility] Protonix 40 mg, 1 tab, Route: PO, Drug form: ECTAB, BID, Start date: 07/08/14 17:00:00, Duration: 30 day, Stop date: 08/07/14 9:00:00Notes: Tablet should not be chewed or crushed. (Same as: Protonix) No Longer Active 07/08/2014 [facility] Benadryl 10 mg, 0.2 mL, Route: IVP, Drug form: INJ, ONCE, Dosing Weight 62.813, kg, PRN Allergic reaction, Start date: 07/08/14 17:00:00Notes: (Same as: Benadryl) Inactive 07/08/2014 [facility] MS Contin 30 mg, 1 tab, Route: PO, Drug form: ERTAB, Q8H, Dosing Weight 62.813, kg, Start date: 07/08/14 16:00:00, Duration: 30 day, Stop date: 08/07/14 8:00:00Notes: Do not crush (Same as:Oramorph SR, MS Contin) No Longer Active 07/08/2014 [facility] Magnesium Sulfate 2 gm, 50 mL, Route: IVPB, Drug form: INJ, PRN, Dosing Weight 62.813, kg, PRN Abnormal Lab Result, For NON-ICU Patients Only., Start date: 07/08/14 14:08:00, Duration: 30 day, Stop date: 08/07/14 14:07:00 No Longer Active 07/08/2014 [facility] Magnesium Oxide 800 mg, 2 tab, Route: PO, Drug form: TAB, PRN, Dosing Weight 62.813, kg, PRN Abnormal Lab Result, For NON-ICU Patients Only., Start date: 07/08/14 14:08:00, Duration: 30 day, Stop date: 08/07/14 14:0 7:00Notes: (Same as: Mag-Ox 400) Magnesium oxide [id number] elemental magnesium Dose=____mg magnesium oxide (___mg elemental magnesium) No Longer Active 07/08/2014 [facility] Calcium Gluconate 3 gm, 30 mL, Route: IVPB, PRN, Dosing Weight 62.813, kg, PRN Abnormal Lab Result, For NON-ICU Patients Only., Start date: 07/08/14 14:08:00, Duration: 30 day, Stop date: 08/07/14 14:07:00 No Longer Active 07/08/2014 [facility] potassium chloride 20 mEq, 1 tab, Route: PO, Drug form: ERTAB, PRN, Dosing Weight 62.813, kg, PRN Abnormal Lab Result, For NON-ICU Patients Only, Start date: 07/08/14 14:08:00, Duration: 30 day, Stop date: 08/07/14 14:07:00Notes: (Same as: K-Dur 20) "Do Not Crush" With food and full glass of water No Longer Active 07/08/2014 [facility] sodium phosphate + Sodium Chloride 0.9% IV 250 mL 30 mmol, 10 mL, Route: IVPB, PRN, Dosing Weight 62.813, kg, PRN Abnormal Lab Result, For NON-ICU Patients Only., Start date: 07/08/14 14:08:00, Duration: 30 day, Stop date: 08/07/14 14:07:00 No Longer Active 07/08/2014 [facility] potassium phosphate + Sodium Chloride 0.9% IV 250 mL 15 mmol, 5 mL, Route: IVPB, PRN, Dosing Weight 62.813, kg, PRN Abnormal Lab Result, For NON-ICU Patients Only., Start date: 07/08/14 14:08:00, Duration: 30 day, Stop date: 08/07/14 14:07:00Notes: (Same as: K Phosphate.) 1 mMol phoshate has 1.47 mEq potassium Infuse over 4 hours No Longer Active 07/08/2014 [facility] potassium phosphate-sodium phosphate 250 mg-278 mg-164 mg oral powder 2 pkt, Route: PO, Drug Form: PDR/REC, Dosing Weight 62.813, kg, PRN, PRN Abnormal Lab Result, For NON-ICU Patients Only, Start date: 07/08/14 14:08:00, Duration: 30 day, Stop date: 08/07/14 14:07:00Notes: (Same as: Neutra- Phos) Each 1.25 gm pkt has 250mg phosphorous. Mix w/2.5oz water and stir. No Longer Active 07/08/2014 [facility] Flexeril 10 mg, 1 tab, Route: PO, Drug form: TAB, Q8H, Dosing Weight 62.813, kg, PRN Spasm, Start date: 07/08/14 13:45:00, Duration: 30 day, Stop date: 08/07/14 13:44:00Notes: (Same As: Flexeril) No Longer Active 07/08/2014 [facility] Morphine 30 mg, 1 tab, Route: PO, Drug form: TAB, Q4H, Dosing Weight 62.813, kg, PRN Pain Score 7-10, Start date: 07/08/14 12:32:00, Duration: 30 day, Stop date: 08/07/14 12:31:00 No Longer Active 07/08/2014 [facility] Saline Flush 0.9% 10 ml, Route: IVP, Drug Form: INJ, Dosing Weight 63.409, kg, Q12H, Start date: 07/08/14 9:00:00, Duration: 30 day, Stop date: 08/06/14 21:00:00Notes: (Same as: BD Posiflush) No Longer Active 07/08/2014 [facility] Levemir FlexPen 40 unit, 0.4 mL, Route: SUB-Q, Drug form: INJ, Daily, Start date: 07/08/14 9:00:00, Duration: 30 day, Stop date: 08/06/14 9:00:00Notes: Same as Levemir Do not hold insulin without contacting prescriber "single patient use only" No Longer Active 07/08/2014 [facility] Protonix 40 mg, Route: IVP, Drug form: INJ, BID, Dosing Weight 63.409, kg, Priority: Routine, Start date: 07/08/14 9:00:00, Duration: 30 day, Stop date: 08/06/14 21:00:00Notes: For IV push reconstitute with 10 ml 0.9% sodium chloride and push over 2 minutes. (Same as: Protonix) Inactive 07/08/2014 [facility] MS Contin 30 mg, 1 tab, Route: PO, Drug form: ERTAB, Q12H, Dosing Weight 63.409, kg, Start date: 07/08/14 9:00:00, Duration: 30 day, Stop date: 08/06/14 21:00:00Notes: Do not crush (Same as:Oramorph SR, MS Contin) Inactive 07/08/2014 [facility] metoprolol tartrate 50 mg, 1 tab, Route: PO, Drug form: TAB, Q12H, Dosing Weight 63.409, kg, Start date: 07/08/14 9:00:00, Duration: 30 day, Stop date: 08/06/14 21:00:00Notes: (Same as: Lopressor) No Longer Active 07/08/2014 [facility] Methocarbamol 1,000 mg, 2 tab, Route: PO, Drug form: TAB, BID, Dosing Weight 63.409, kg, Start date: 07/08/14 9:00:00, Duration: 30 day, Stop date: 08/06/14 21:00:00Notes: (Same as:Robaxin) Inactive 07/08/2014 [facility] Ativan 0.5 mg, 1 tab, Route: PO, Drug form: TAB, TID, Dosing Weight 63.409, kg, Start date: 07/08/14 9:00:00, Duration: 30 day, Stop date: 08/06/14 17:00:00Notes: (Same as: Ativan) No Longer Active 07/08/2014 [facility] Lantus Route: SUB-Q, Daily, Dosing Weight 63.409, kg, Start date: 07/08/14 9:00:00, Duration: 30 day, Stop date: 08/06/14 9:00:00 Inactive 07/08/2014 [facility] enalapril 20 mg, 2 tab, Route: PO, Drug form: TAB, BID, Dosing Weight 63.409, kg, Start date: 07/08/14 9:00:00, Duration: 30 day, Stop date: 08/06/14 21:00:00Notes: (Same as: Vasotec) Inactive 07/08/2014 [facility] Chlorthalidone 25 MG Oral Tablet 25 mg, 1 tab, Route: PO, Drug form: TAB, Daily, Dosing Weight 63.409, kg, Start date: 07/08/14 9:00:00, Duration: 30 day, Stop date: 08/06/14 9:00:00Notes: Non-Formulary Drug (Same As: [place]) Inactive 07/08/2014 [facility] Bethanechol 25 mg, 1 tab, Route: PO, Drug form: TAB, TID, Dosing Weight 63.409, kg, Start date: 07/08/14 9:00:00, Duration: 30 day, Stop date: 08/06/14 17:00:00Notes: Take on empty stomach. (Same As: Urecholine) Inactive 07/08/2014 [facility] Amlodipine 5 mg, 1 tab, Route: PO, Drug form: TAB, Daily, Dosing Weight 63.409, kg, Start date: 07/08/14 9:00:00, Duration: 30 day, Stop date: 08/06/14 9:00:00Notes: (Same as: Norvasc) Inactive 07/08/2014 [facility] Clonidine Hydrochloride 0.2 MG Oral Tablet 0.2 mg, 1 tab, Route: PO, Drug form: TAB, TID, Dosing Weight 63.409, kg, Start date: 07/08/14 8:00:00, Duration: 30 day, Stop date: 08/07/14 0:00:00Notes: (Same As: Catapres) Inactive 07/08/2014 [facility] Metoclopramide 10 MG Oral Tablet 10 mg, 1 tab, Route: PO, Drug form: TAB, TID-Before Meals, Dosing Weight 63.409, kg, Start date: 07/08/14 7:30:00, Duration: 30 day, Stop date: 08/06/14 16:30:00Notes: (Same as: Reglan) Take 30 min before meals No Longer Active 07/08/2014 [facility] Thyroxine 100 microgram, 1 tab, Route: PO, Drug form: TAB, Q630AM, Dosing Weight 63.409, kg, Start date: 07/08/14 6:30:00, Duration: 30 day, Stop date: 08/06/14 6:30:00Notes: Take 1 hour before or 2 hours after meal; Enteral feeds may interefere with the absorption of this medication. (Same as:Levothroid, Synthroid) Inactive 07/08/2014 [facility] Morphine Sulfate 30 MG Extended Release Tablet [MS Contin] 30 mg=1 tab, PO, Q8H, 0 Refill(s) Inactive 07/08/2014 [facility] Morphine 0 Refill(s) Inactive 07/08/2014 [facility] Morphine 4 mg, Route: IVP, ONCE, Dosing Weight 63.409, kg, Start date: 07/08/14 3:00:00, Stop date: 07/08/14 3:00:00 Inactive 07/08/2014 [facility] Ambien 5 mg, 1 tab, Route: PO, Drug form: TAB, Bedtime, Dosing Weight 63.409, kg, PRN as needed for sleep, Start date: 07/08/14 3:00:00, Duration: 30 day, Stop date: 08/07/14 2:59:00Notes: (Same As: Ambien) No Longer Active 07/08/2014 [facility] Phenergan 25 mg, 1 tab, Route: PO, Drug form: TAB, Q6H, Dosing Weight 63.409, kg, PRN as needed for nausea/vomiting, Start date: 07/08/14 2:59:00, Duration: 30 day, Stop date: 08/07/14 2:58:00Notes: (Same as: Phenergan) No Longer Active 07/08/2014 [facility] Benadryl 25 mg, 1 tab, Route: PO, Drug form: TAB, Q6H, Dosing Weight 63.409, kg, PRN as needed for allergy symptoms, Start date: 07/08/14 2:56:00, Duration: 30 day, Stop date: 08/07/14 2:55:00 No Longer Active 07/08/2014 [facility] Insulin, Aspart, Human 4 unit, 0.04 mL, [...] days from Date No Longer Active 07/08/2014 [facility] Dextrose 50% Syringe 25 gm, 50 mL, Route: IVP, Drug Form: INJ, Dosing Weight 63.409, kg, PRN, PRN Blood Glucose Results, Start date: 07/08/14 1:23:00, Duration: 30 day, Stop date: 08/07/14 1:22:00 No Longer Active 07/08/2014 [facility] Glucagon 1 mg, Route: IM, Drug form: PDR/INJ, PRN, Dosing Weight 63.409, kg, PRN Blood Glucose Results, Start date: 07/08/14 1:23:00, Duration: 30 day, Stop date: 08/07/14 1:22:00 No Longer Active 07/08/2014 [facility] Saline Flush 0.9% 10 ml, Route: IVP, Drug Form: INJ, Dosing Weight 63.409, kg, PRN, PRN Line Flush, Start date: 07/08/14 1:19:00, Duration: 30 day, Stop date: 08/07/14 1:18:00Notes: (Same as: BD Posiflush) No Longer Active 07/08/2014 [facility] Sodium Chloride 0.154 MEQ/ML Injectable Solution 1,000 mL, Rate: 100 ml/hr, Infuse over: 10 hr, Route: IV, Dosing Weight 63.409 kg, Total Volume: 1,000, Start date: 07/08/14 1:19:00, Duration: 1 day, Stop date: 07/09/14 1:18:00 No Longer Active 07/08/2014 [facility] metoprolol tartrate 50 mg, 2 tab, Route: PO, Drug form: TAB, ONCE, Dosing Weight 63.409, kg, Priority: STAT, Start date: 07/07/14 23:26:00, Stop date: 07/07/14 23:26:00Notes: (Same as: Lopressor) Inactive 07/08/2014 [facility] Digoxin 0 Refill(s) No Longer Active 07/08/2014 [facility] Xanax 0 Refill(s) No Longer Active 07/08/2014 [facility] Morphine 4 mg, 1 mL, Route: IVP, Drug form: INJ, ONCE, Dosing Weight 63.409, kg, Priority: STAT, Start date: 07/07/14 21:18:00, Stop date: 07/07/14 21:18:00Notes: (Same as:MORPhine Sulfate) Inactive 07/08/2014 [facility] Saline Flush 0.9% 10 mL, Route: IVP, Drug Form: INJ, Dosing Weight 63.409, kg, PRN, PRN Line Flush, Start date: 07/07/14 21:18:00, Duration: 30 day, Stop date: 08/06/14 21:17:00Notes: (Same as: BD Posiflush) No Longer Active 07/08/2014 [facility] Sodium Chloride 0.154 MEQ/ML Injectable Solution 1,000 mL, 1000 ml/hr, Infuse Over: 1 hr, Route: IV, 1,000, Drug form: INJ, ONCE, Priority: STAT, Dosing Weight 63.409 kg, Start date: 07/07/14 21:18:00, Duration: 1 doses or times, Stop date: 07/07/14 21:18:00 Inactive 07/08/2014 [facility] Diphenhydramine 12.5 mg, 0.25 mL, Route: IVP, Drug form: INJ, ONCE, Dosing Weight 63.409, kg, Priority: STAT, Start date: 07/07/14 21:17:00, Stop date: 07/07/14 21:17:00Notes: (Same as: Benadryl) Inactive 07/08/2014 [facility] Metoclopramide 10 mg, 2 mL, Route: IVP, Drug form: INJ, ONCE, Dosing Weight 63.409, kg, Priority: STAT, Start date: 07/07/14 21:17:00, Stop date: 07/07/14 21:17:00Notes: (Same as: Reglan) Inactive 07/08/2014 [facility] Promethazine Hydrochloride 25 MG Oral Tablet [Phenergan] 25 mg=1 tab, PO, Q6H, Nausea, # 15 tab, 0 Refill(s) On Hold 07/07/2014 [facility] amLODIPine 5 mg oral tablet 5 mg=1 tab, PO, Daily, # 30 tab, 0 Refill(s) On Hold 07/07/2014 [facility] Promethazine Hydrochloride 25 MG Oral Tablet [Phenergan] 25 mg=1 tab, PO, Q6H, Nausea, # 15 tab, 0 Refill(s) On Hold 07/07/2014 [facility] amLODIPine 5 mg oral tablet 5 mg=1 tab, PO, Daily, # 30 tab, 0 Refill(s) On Hold 07/07/2014 [facility] Labetalol 10 mg, 2 mL, Route: IVP, Drug form: INJ, ONCE, Dosing Weight 67.727, kg, Priority: STAT, Start date: 07/06/14 20:47:00, Stop date: 07/06/14 20:47:00Notes: (Same as: Normodyne, Trandate) Push over 2 minutes Give bolus over 2-3 minutes. Inactive 07/07/2014 [facility] Benadryl 25 mg, Route: PO, Drug form: TAB, ONCE, Dosing Weight 67.727, kg, Priority: STAT, Start date: 07/06/14 19:51:00, Stop date: 07/06/14 19:51:00 Inactive 07/07/2014 [facility] Morphine 4 mg, 1 mL, Route: IVP, Drug form: INJ, ONCE, Dosing Weight 67.727, kg, Priority: STAT, Start date: 07/06/14 19:17:00, Stop date: 07/06/14 19:17:00Notes: (Same as:MORPhine Sulfate) Inactive 07/07/2014 [facility] 300 MG tioconazole 0.065 MG/MG Prefilled Applicator [Vagistat-1] 1 appl, VAG, Bedtime, # 4 gm, 0 Refill(s) On Hold 07/07/2014 [facility] Sulfamethoxazole 800 MG / Trimethoprim 160 MG Oral Tablet [Bactrim] 1 tab, PO, BID, # 6 tab, 0 Refill(s) On Hold 07/07/2014 [facility] omeprazole 40 mg oral delayed release capsule 40 mg=1 cap, PO, Daily, # 30 cap, 0 Refill(s) On Hold 07/07/2014 [facility] Insulin regular 20 unit, 0.2 mL, Route: [...] Expires in days from Date Inactive 07/06/2014 [facility] Sodium Chloride 0.154 MEQ/ML Injectable Solution 1,000 mL, 1000 ml/hr, Infuse Over: 1 hr, Route: IV, 1,000, Drug form: INJ, ONCE, Priority: STAT, Dosing Weight 67.727 kg, Start date: 07/06/14 18:04:00, Duration: 1 doses or times, Stop date: 07/06/14 18:04:00 Inactive 07/06/2014 [facility] Morphine 2 mg, Route: IM, Drug form: INJ, ONCE, Dosing Weight 67.727, kg, Priority: STAT, Start date: 07/06/14 17:48:00, Stop date: 07/06/14 17:48:00 Inactive 07/06/2014 [facility] Phenergan 12.5 mg, 0.5 tab, Route: PO, Drug form: TAB, ONCE, Dosing Weight 63.182, kg, Priority: STAT, Start date: 07/06/14 16:34:00, Stop date: 07/06/14 16:34:00Notes: (Same as: Phenergan) Inactive 07/06/2014 [facility] Morphine 2 mg, 1 mL, Route: IVP, Drug form: INJ, ONCE, Dosing Weight 63.182, kg, Priority: STAT, Start date: 07/06/14 16:33:00, Stop date: 07/06/14 16:33:00Notes: (Same as:MORPhine Sulfate) Inactive 07/06/2014 [facility] Saline Flush 0.9% 10 mL, Route: IVP, Drug Form: INJ, Dosing Weight 63.182, kg, PRN, PRN Line Flush, Start date: 07/06/14 16:23:00, Duration: 1 day, Stop date: 07/07/14 16:22:00Notes: (Same as: BD Posiflush) No Longer Active 07/06/2014 [facility] Lorazepam 1 MG Oral Tablet [Ativan] 1 mg=1 tab, PO, Q6H, Anxiety, # 12 tab, 0 Refill(s) Active 06/05/2014 [facility] Sulfamethoxazole 800 MG / Trimethoprim 160 MG Oral Tablet 1 tab, PO, Q12H, # 20 tab, 0 Refill(s) Active 06/05/2014 [facility] promethazine 12.5 mg oral tablet 12.5 mg=1 tab, PO, Q4H, Nausea & Vomiting, # 60 tab, 0 Refill(s) Active 06/05/2014 [facility] Phenergan 25 mg, 50 mL, Route: IVPB, Drug form: SOLN, ONCE, Dosing Weight 63.182, kg, Priority: STAT, Start date: 06/04/14 23:07:00, Stop date: 06/04/14 23:07:00 Inactive 06/05/2014 [facility] Insulin, Regular, Pork 10 unit, Route: IVP, ONCE, Dosing Weight 63.182, kg, Priority: STAT, Start date: 06/04/14 21:15:00, Stop date: 06/04/14 21:15:00 Inactive 06/05/2014 [facility] Ativan 1 mg, Route: IV, ONCE, Dosing Weight 63.182, kg, Priority: STAT, Start date: 06/04/14 21:12:00, Stop date: 06/04/14 21:12:00 Inactive 06/05/2014 [facility] Diphenhydramine 25 mg, 0.5 mL, Route: IVP, Drug form: INJ, ONCE, Dosing Weight 63.182, kg, Priority: STAT, Start date: 06/04/14 20:11:00, Stop date: 06/04/14 20:11:00Notes: (Same as: Benadryl) Inactive 06/05/2014 [facility] Metoclopramide 10 mg, 2 mL, Route: IVP, Drug form: INJ, ONCE, Dosing Weight 63.182, kg, Priority: STAT, Start date: 06/04/14 20:11:00, Stop date: 06/04/14 20:11:00Notes: (Same as: Reglan) Inactive 06/05/2014 [facility] Morphine 4 mg, 1 mL, Route: IVP, Drug form: INJ, ONCE, Dosing Weight 63.182, kg, Priority: STAT, Start date: 06/04/14 20:11:00, Stop date: 06/04/14 20:11:00Notes: (Same as:MORPhine Sulfate) Inactive 06/05/2014 [facility] pantoprazole 40 mg, Route: IVP, Drug form: INJ, ONCE, Dosing Weight 63.182, kg, For IV push reconstitute with 10 ml 0.9% sodium chloride and push over at least 3 minutes, Priority: STAT, Start date: 06/04/14 20:11:00, Stop date: 06/04/14 20:11:00Notes: For IV push reconstitute with 10 ml 0.9% sodium chloride and push over 2 minutes. (Same as: Protonix) Inactive 06/05/2014 [facility] Sodium Chloride 0.154 MEQ/ML Injectable Solution 1,000 mL, 1,000 ml/hr, Infuse Over: 1 hr, Route: IV, 1,000, Drug form: INJ, ONCE, Priority: STAT, Dosing Weight 63.182 kg, Start date: 06/04/14 20:11:00, Stop date: 06/04/14 20:11:00 Inactive 06/05/2014 [facility] Diphenhydramine 25 mg, 0.5 mL, Route: IVP, Drug form: INJ, ONCE, Dosing Weight 63.182, kg, Priority: STAT, Start date: 06/04/14 19:26:00, Stop date: 06/04/14 19:26:00Notes: (Same as: Benadryl) Inactive 06/05/2014 [facility] pantoprazole 40 mg, Route: IVP, Drug form: INJ, ONCE, Dosing Weight 63.182, kg, For IV push reconstitute with 10 ml 0.9% sodium chloride and push over at least 3 minutes, Priority: STAT, Start date: 06/04/14 17:04:00, Stop date: 06/04/14 17:04:00Notes: For IV push reconstitute with 10 ml 0.9% sodium chloride and push over 2 minutes. (Same as: Protonix) Inactive 06/04/2014 [facility] Metoclopramide 10 mg, 2 mL, Route: IVP, Drug form: INJ, ONCE, Dosing Weight 63.182, kg, Priority: STAT, Start date: 06/04/14 17:04:00, Stop date: 06/04/14 17:04:00Notes: (Same as: Reglan) Inactive 06/04/2014 [facility] Morphine 4 mg, 1 mL, Route: IVP, Drug form: INJ, ONCE, Dosing Weight 63.182, kg, Priority: STAT, Start date: 06/04/14 17:04:00, Stop date: 06/04/14 17:04:00Notes: (Same as:MORPhine Sulfate) Inactive 06/04/2014 [facility] Sodium Chloride 0.154 MEQ/ML Injectable Solution 1,000 mL, 1000 ml/hr, Infuse Over: 1 hr, Route: IV, 1,000, Drug form: INJ, ONCE, Priority: STAT, Dosing Weight 63.182 kg, Start date: 06/04/14 17:04:00, Duration: 1 doses or times, Stop date: 06/04/14 17:04:00 Inactive 06/04/2014 [facility] Saline Flush 0.9% 10 mL, Route: IVP, Drug Form: INJ, Dosing Weight 63.182, kg, PRN, PRN Line Flush, Start date: 06/04/14 17:04:00, Duration: 1 day, Stop date: 06/05/14 17:03:00Notes: (Same as: BD Posiflush) No Longer Active 06/04/2014 [facility] Metoclopramide 10 MG Oral Tablet [Reglan] 10 mg=1 tab, PO, QID, prn vomiting, # 28 tab, 0 Refill(s) Active 05/15/2014 [facility] Promethazine Hydrochloride 25 MG Rectal Suppository [Phenergan] 25 mg=1 supp, WI, Q6H, Nausea & Vomiting, # 9 supp, 0 Refill(s) Active 05/15/2014 [facility] ciprofloxacin 500 mg oral tablet 500 mg=1 tab, PO, Q12H, # 14 tab, 0 Refill(s) Active 05/15/2014 [facility] Sodium Chloride 0.154 MEQ/ML Injectable Solution 1,000 mL, 1000 ml/hr, Infuse Over: 1 hr, Route: IV, 1,000, Drug form: INJ, ONCE, Priority: STAT, Dosing Weight 63.636 kg, Start date: 05/14/14 20:26:00, Duration: 1 doses or times, Stop date: 05/14/14 20:26:00 Inactive 05/15/2014 [facility] Benadryl 25 mg, 0.5 mL, Route: IVP, Drug form: INJ, ONCE, Dosing Weight 63.636, kg, Priority: STAT, Start date: 05/14/14 20:08:00, Stop date: 05/14/14 20:08:00Notes: (Same as: Benadryl) Inactive 05/15/2014 [facility] Rocephin 1 gm, Route: IVPB, ONCE, Dosing Weight 63.636, kg, Priority: STAT, Start date: 05/14/14 18:36:00, Stop date: 05/14/14 18:36:00Notes: (Same As: Rocephin). Use with 100ml NS mini-bag PLUS and infuse over 30 min Inactive 05/15/2014 [facility] Insulin, Regular, Pork 12 unit, Route: IVP, ONCE, Dosing Weight 63.636, kg, Priority: STAT, Start date: 05/14/14 18:35:00, Stop date: 05/14/14 18:35:00 Inactive 05/15/2014 [facility] Morphine 4 mg, 1 mL, Route: IVP, Drug form: INJ, ONCE, Dosing Weight 63.636, kg, Priority: STAT, Start date: 05/14/14 18:26:00, Stop date: 05/14/14 18:26:00Notes: (Same as:MORPhine Sulfate) Inactive 05/15/2014 [facility] Metoclopramide 10 mg, 2 mL, Route: IVP, Drug form: INJ, ONCE, Dosing Weight 63.636, kg, Priority: STAT, Start date: 05/14/14 17:21:00, Stop date: 05/14/14 17:21:00Notes: (Same as: Reglan) Inactive 05/14/2014 [facility] Saline Flush 0.9% 10 mL, Route: IVP, Drug Form: INJ, Dosing Weight 63.636, kg, PRN, PRN Line Flush, Start date: 05/14/14 17:21:00, Duration: 30 day, Stop date: 06/13/14 17:20:00Notes: (Same as: BD Posiflush) No Longer Active 05/14/2014 [facility] Sodium Chloride 0.154 MEQ/ML Injectable Solution 1,000 mL, 1000 ml/hr, Infuse Over: 1 hr, Route: IV, 1,000, Drug form: INJ, ONCE, Priority: STAT, Dosing Weight 63.636 kg, Start date: 05/14/14 17:21:00, Duration: 1 doses or times, Stop date: 05/14/14 17:21:00 Inactive 05/14/2014 [facility] Hydrocortisone 10 MG/ML / Neomycin 3.5 MG/ML / Polymyxin B 27863 UNT/ML Otic Suspension 2 drp, LEFT EAR, QID, # 10 ml, 0 Refill(s) Active 03/22/2014 [facility] Diazepam 5 MG Oral Tablet [Valium] 5 mg=1 tab, PO, TID, Pain, # 15 tab, 0 Refill(s) Active 03/22/2014 [facility] Promethazine Hydrochloride 25 MG Oral Tablet [Phenergan] 25 mg=1 tab, PO, Q6H, Nausea, # 15 tab, 0 Refill(s) Active 03/22/2014 [facility] Azithromycin 5 Day Dose Pack 250 mg oral tablet 250 mg, PO, Daily, Take 2 tablets by mouth the first day then 1 tablet by mouth days 2- 5, # 6 tab, 0 Refill(s)Special Instructions: Take 2 tablets by mouth the first day then 1 tablet by mouth days 2-5 Active 03/22/2014 [facility] Valium 5 mg, 1 mL, Route: IVP, Drug form: INJ, ONCE, Dosing Weight 62.443, kg, Priority: STAT, Start date: 03/21/14 21:20:00, Stop date: 03/21/14 21:20:00Notes: (Same as: Valium) Inactive 03/22/2014 [facility] Sodium Chloride 0.154 MEQ/ML Injectable Solution 1,000 mL, 1,000 ml/hr, Infuse Over: 1 hr, Route: IV, 1,000, Drug form: INJ, ONCE, Priority: STAT, Dosing Weight 62.443 kg, Start date: 03/21/14 20:35:00, Duration: 1 doses or times, Stop date: 03/21/14 20:35:00 Inactive 03/22/2014 [facility] Insulin, Regular, Pork 15 unit, 0.15 mL, [...] Expires in days from Date Inactive 03/22/2014 [facility] Benadryl 50 mg, 1 mL, Route: IVP, Drug form: INJ, ONCE, Dosing Weight 62.443, kg, Priority: STAT, Start date: 03/21/14 20:15:00, Stop date: 03/21/14 20:15:00Notes: (Same as: Benadryl) Inactive 03/22/2014 [facility] Sodium Chloride 0.154 MEQ/ML Injectable Solution 1,000 mL, 1,000 ml/hr, Infuse Over: 1 hr, Route: IV, 1,000, Drug form: INJ, ONCE, Priority: STAT, Dosing Weight 62.443 kg, Start date: 03/21/14 19:22:00, Duration: 1 doses or times, Stop date: 03/21/14 19:22:00 Inactive 03/22/2014 [facility] Benadryl 50 mg, 2 tab, Route: PO, Drug form: TAB, ONCE, Dosing Weight 62.443, kg, Priority: STAT, Start date: 03/21/14 19:21:00, Stop date: 03/21/14 19:21:00 Inactive 03/22/2014 [facility] Phenergan 25 mg, 50 mL, Route: IVPB, Drug form: SOLN, ONCE, Dosing Weight 62.443, kg, Priority: STAT, Start date: 03/21/14 19:21:00, Stop date: 03/21/14 19:21:00 Inactive 03/22/2014 [facility] Morphine 4 mg, 1 mL, Route: IVP, Drug form: INJ, ONCE, Dosing Weight 62.443, kg, Priority: STAT, Start date: 03/21/14 19:21:00, Stop date: 03/21/14 19:21:00Notes: (Same as:MORPhine Sulfate) Inactive 03/22/2014 [facility] Saline Flush 0.9% 10 mL, Route: IVP, Drug Form: INJ, Dosing Weight 62.443, kg, PRN, PRN Line Flush, Start date: 03/21/14 19:21:00, Duration: 30 day, Stop date: 04/20/14 19:20:00Notes: preservative free. Inactive 03/22/2014 [facility] Acetic Acid 20 MG/ML Otic Solution 5 drp, LEFT EAR, TID, # 15 ml, 0 Refill(s) Active 03/21/2014 [facility] Dicyclomine Hydrochloride 20 MG Oral Tablet [Bentyl] 20 mg=1 tab, PO, QID, # 20 tab, 0 Refill(s) Active 03/21/2014 [facility] Antipyrine 54 MG/ML / Benzocaine 14 MG/ML Otic Solution 4 drp, OTIC, Q4H, for pain, # 15 ml, 0 Refill(s) Active 03/21/2014 [facility] Insulin, Regular, Pork 10 unit, 0.1 mL, [...] Expires in days from Date Inactive 03/21/2014 [facility] Insulin, Regular, Pork 15 unit, 0.15 mL, [...] Expires in days from Date Inactive 03/21/2014 [facility] Metoclopramide 10 mg, Route: IM, Drug form: INJ, ONCE, Dosing Weight 63.636, kg, Priority: STAT, Start date: 03/20/14 20:52:00, Stop date: 03/20/14 20:52:00 Inactive 03/21/2014 [facility] Diphenhydramine 25 mg, 1 tab, Route: PO, Drug form: TAB, ONCE, Dosing Weight 63.636, kg, Priority: STAT, Start date: 03/20/14 20:32:00, Stop date: 03/20/14 20:32:00 Inactive 03/21/2014 [facility] Promethazine 25 mg, 1 mL, Route: IM, Drug form: INJ, ONCE, Dosing Weight 63.636, kg, Priority: STAT, Start date: 03/20/14 20:32:00, Stop date: 03/20/14 20:32:00Notes: Do not give IV push. (Same as: Phenergan) Inactive 03/21/2014 [facility] Benadryl 25 mg, 1 tab, Route: PO, Drug form: TAB, ONCE, Dosing Weight 63.636, kg, Priority: STAT, Start date: 03/20/14 20:08:00, Stop date: 03/20/14 20:08:00 Inactive 03/21/2014 [facility] Dicyclomine 20 mg, 2 mL, Route: IM, Drug form: INJ, ONCE, Dosing Weight 63.636, kg, Priority: STAT, Start date: 03/20/14 20:04:00, Stop date: 03/20/14 20:04:00Notes: (Same as: Bentyl) Inactive 03/21/2014 [facility] Saline Flush 0.9% 10 mL, Route: IVP, Drug Form: INJ, Dosing Weight 63.636, kg, PRN, PRN Line Flush, Start date: 03/20/14 20:04:00, Duration: 30 day, Stop date: 04/19/14 20:03:00Notes: (Same as: BD Posiflush) Inactive 03/21/2014 [facility] Metoclopramide 10 mg, 2 mL, Route: IVP, Drug form: INJ, ONCE, Dosing Weight 63.636, kg, Priority: STAT, Start date: 03/20/14 20:04:00, Stop date: 03/20/14 20:04:00Notes: (Same as: Reglan) Inactive 03/21/2014 [facility] Ciprofloxacin 500 MG Oral Tablet [Cipro] 500 mg=1 tab, PO, Q12H, # 14 tab, 0 Refill(s) Active 01/29/2014 [facility] Acetaminophen 300 MG / Codeine Phosphate 30 MG Oral Tablet [Tylenol with Codeine #3] 2 tab, PO, TID, for pain, # 15 tab, 0 Refill(s) Active 01/29/2014 [facility] Morphine 4 mg, 1 mL, Route: IVP, Drug form: INJ, ONCE, Dosing Weight 72.727, kg, Priority: STAT, Start date: 01/29/14 10:47:00, Stop date: 01/29/14 10:47:00Notes: (Same as:MORPhine Sulfate) Inactive 01/29/2014 [facility] Ceftriaxone 1 gm, Route: IVPB, ONCE, Dosing Weight 72.727, kg, Priority: STAT, Start date: 01/29/14 10:46:00, Stop date: 01/29/14 10:46:00Notes: (Same As: Rocephin). Use with 100ml NS mini-bag PLUS and infuse over 30 min Inactive 01/29/2014 [facility] Insulin, Regular, Pork 10 unit, 0.1 mL, [...] Expires in days from Date Inactive 01/29/2014 [facility] Morphine 4 mg, 1 mL, Route: IVP, Drug form: INJ, ONCE, Dosing Weight 72.727, kg, Priority: STAT, Start date: 01/29/14 9:11:00, Stop date: 01/29/14 9:11:00Notes: (Same as:MORPhine Sulfate) Inactive 01/29/2014 [facility] Reglan 10 mg, 2 mL, Route: IVP, Drug form: INJ, ONCE, Dosing Weight 72.727, kg, Priority: STAT, Start date: 01/29/14 8:11:00, Stop date: 01/29/14 8:11:00Notes: (Same as: Reglan) Inactive 01/29/2014 [facility] Benadryl 50 mg, 1 mL, Route: IVP, Drug form: INJ, ONCE, Dosing Weight 72.727, kg, Priority: STAT, Start date: 01/29/14 8:11:00, Stop date: 01/29/14 8:11:00Notes: (Same as: Benadryl) Inactive 01/29/2014 [facility] Sodium Chloride 0.154 MEQ/ML Injectable Solution 1,000 mL, 1,000 ml/hr, Infuse Over: 1 hr, Route: IV, 1,000, Drug form: INJ, ONCE, Priority: STAT, Dosing Weight 63.352 kg, Start date: 01/29/14 8:10:00, Duration: 1 doses or times, Stop date: 01/29/14 8:10:00 Inactive 01/29/2014 [facility] Nitrofurantoin 100 MG Oral Capsule [Macrobid] 100 mg=1 cap, PO, BID, # 20 cap, 0 Refill(s) Active 10/23/2013 [facility] GI cocktail 30 mL, Route: PO, Drug Form: SUSP, Dosing Weight 59.091, kg, ONCE, STAT, Start date: 10/22/13 19:05:00, Stop date: 10/22/13 19:05:00Notes: G.I. Cocktail=antacid with simethicone 22.5 mL - lidocaine v iscous 7.5 mL Inactive 10/23/2013 [facility] Morphine 6 mg, 0.6 mL, Route: IM, Drug form: SOLN, ONCE, Dosing Weight 59.091, kg, Priority: STAT, Start date: 10/22/13 19:02:00, Stop date: 10/22/13 19:02:00Notes: (Same as: MORPhine Sulfate) Inactive 10/23/2013 [facility] Benadryl 25 mg, 0.5 mL, Route: IM, Drug form: INJ, ONCE, Dosing Weight 59.091, kg, Priority: STAT, Start date: 10/22/13 19:02:00, Stop date: 10/22/13 19:02:00Notes: (Same as: Benadryl) Inactive 10/23/2013 [facility] Phenergan 25 mg, 1 mL, Route: IM, Drug form: INJ, ONCE, Dosing Weight 59.091, kg, Priority: STAT, Start date: 10/22/13 19:02:00, Stop date: 10/22/13 19:02:00Notes: Do not give IV push. (Same as: Phenergan) Inactive 10/23/2013 [facility] Erythromycin 250 MG Enteric Coated Tablet =1 tab, PO, Q6H, # 28 tab, 0 Refill(s) Active 10/12/2013 [facility] omeprazole 20 mg oral enteric coated tablet 20 mg=1 tab, PO, BID, # 30 tab, 0 Refill(s) Active 10/12/2013 [facility] Metoclopramide 10 MG Oral Tablet [Reglan] 10 mg=1 tab, PO, QID, # 20 tab, 0 Refill(s) Active 10/12/2013 [facility] Benadryl 50 mg, 1 mL, Route: IM, Drug form: INJ, ONCE, Dosing Weight 55.909, kg, Priority: STAT, Start date: 10/12/13 15:58:00, Stop date: 10/12/13 15:58:00Notes: (Same as: Benadryl) Inactive 10/12/2013 [facility] Reglan 10 mg, 2 mL, Route: IM, Drug form: INJ, ONCE, Dosing Weight 55.909, kg, Priority: STAT, Start date: 10/12/13 15:57:00, Stop date: 10/12/13 15:57:00Notes: (Same as: Reglan) Inactive 10/12/2013 [facility] Diphenhydramine Hydrochloride 2.5 MG/ML Oral Solution [Benadryl] 25 mg=10 mL, PO, TID, # 120 mL, 0 Refill(s) Active 10/10/2013 [facility] Diphenhydramine Hydrochloride 25 MG Oral Tablet [Benadryl] 25 mg=1 tab, PO, BID, Take together with Zofran, # 48 tab, 0 Refill(s)Special Instructions: Take together with Zofran Active 10/10/2013 [facility] Promethazine Hydrochloride 25 MG Oral Tablet [Phenergan] 25 mg=1 tab, PO, Q4H, Nausea, # 50 tab, 0 Refill(s) Active 10/10/2013 [facility] meclizine 50 mg oral tablet 50 mg=1 tab, PO, BID, Dizziness/Vertigo, # 20 tab, 0 Refill(s) Active 10/10/2013 [facility] Ondansetron 4 MG Disintegrating Tablet [Zofran] 4 mg=1 tab, PO, BID, Nausea and Vomiting, Dissolve tab under tongue. Take together with Benadryl, # 20 tab, 0 Refill(s)Special Instructions: Dissolve tab under tongue. Take together with Benadryl Active 10/10/2013 [facility] Morphine 4 mg, 1 mL, Route: IM, Drug form: INJ, ONCE, Dosing Weight 55.909, kg, Priority: STAT, Start date: 10/10/13 18:01:00, Stop date: 10/10/13 18:01:00Notes: (Same as:MORPhine Sulfate) Inactive 10/10/2013 [facility] Meclizine 50 mg, 2 tab, Route: PO, Drug form: TAB, ONCE, Dosing Weight 55.909, kg, Priority: STAT, Start date: 10/10/13 17:14:00, Stop date: 10/10/13 17:14:00Notes: (Same as: Antivert) Inactive 10/10/2013 [facility] Zofran ODT 4 mg, Route: PO, Drug form: TABDIS, ONCE, Dosing Weight 55.909, kg, Priority: STAT, Start date: 10/10/13 16:55:00, Stop date: 10/10/13 16:55:00 Inactive 10/10/2013 [facility] Morphine 8 mg, 0.8 mL, Route: IM, Drug form: SOLN, ONCE, Dosing Weight 55.909, kg, Priority: STAT, Start date: 10/10/13 16:49:00, Stop date: 10/10/13 16:49:00Notes: (Same as: MORPhine Sulfate) Inactive 10/10/2013 [facility] Benadryl 25 mg, 0.5 mL, Route: IM, Drug form: INJ, ONCE, Dosing Weight 55.909, kg, Priority: STAT, Start date: 10/10/13 16:49:00, Stop date: 10/10/13 16:49:00Notes: (Same as: Benadryl) Inactive 10/10/2013 [facility] Phenergan 25 mg, 1 mL, Route: IM, Drug form: INJ, ONCE, Dosing Weight 55.909, kg, Priority: STAT, Start date: 10/10/13 16:04:00, Stop date: 10/10/13 16:04:00Notes: Do not give IV push. (Same as: Phenergan) Inactive 10/10/2013 [facility] Morphine 6 mg, 1.5 mL, Route: IVP, Drug form: INJ, ONCE, Dosing Weight 55.909, kg, Priority: STAT, Start date: 10/10/13 15:42:00, Stop date: 10/10/13 15:42:00Notes: (Same as:MORPhine Sulfate) Inactive 10/10/2013 [facility] OXcarbazepine 150 mg oral tablet 150 mg=1 tab, ONCE, 0 Refill(s) Active 10/10/2013 [facility] Phenergan 25 mg, 50 mL, Route: IVPB, Drug form: SOLN, ONCE, Dosing Weight 55.909, kg, Priority: STAT, Start date: 10/10/13 15:09:00, Stop date: 10/10/13 15:09:00 Inactive 10/10/2013 [facility] Sodium Chloride 0.154 MEQ/ML Injectable Solution 1,000 mL, 1000 ml/hr, Infuse Over: 1 hr, Route: IV, 1,000, Drug form: INJ, ONCE, Priority: STAT, Dosing Weight 55.909 kg, Start date: 10/10/13 15:09:00, Duration: 1 doses or times, Stop date: 10/10/13 15:09:00 Inactive 10/10/2013 [facility] Saline Flush 0.9% 5 mL, Route: IVP, Drug Form: INJ, Dosing Weight 55.909, kg, PRN, PRN Line Flush, Start date: 10/10/13 15:09:00, Duration: 24 hr, Stop date: 10/11/13 15:08:00Notes: (Same as: BD Posiflush) Inactive 10/10/2013 [facility] Benadryl 25 mg, Route: IVP, ONCE, Dosing Weight 55.909, kg, Priority: STAT, Start date: 09/26/13 17:18:00, Stop date: 09/26/13 17:18:00 Inactive 09/26/2013 [facility] Morphine 4 mg, 1 mL, Route: IVP, Drug form: INJ, ONCE, Dosing Weight 55.909, kg, Start date: 09/26/13 16:36:00, Stop date: 09/26/13 16:36:00Notes: (Same as:MORPhine Sulfate) Inactive 09/26/2013 [facility] Insulin, Regular, Pork 10 unit, 0.1 mL, [...] Expires in days from Date Inactive 09/26/2013 [facility] Benadryl 25 mg, 0.5 mL, Route: IVP, Drug form: INJ, ONCE, Dosing Weight 55.909, kg, Priority: STAT, Start date: 09/26/13 15:15:00, Stop date: 09/26/13 15:15:00Notes: (Same as: Benadryl) Inactive 09/26/2013 [facility] Reglan 10 mg, Route: IVP, Drug form: INJ, ONCE, Dosing Weight 55.909, kg, Priority: STAT, Start date: 09/26/13 15:15:00, Stop date: 09/26/13 15:15:00 Inactive 09/26/2013 [facility] Morphine 4 mg, 1 mL, Route: IVP, Drug form: INJ, ONCE, Dosing Weight 55.909, kg, Priority: STAT, Start date: 09/26/13 15:15:00, Stop date: 09/26/13 15:15:00Notes: (Same as:MORPhine Sulfate) Inactive 09/26/2013 [facility] Sodium Chloride 0.154 MEQ/ML Injectable Solution 1,000 mL, 1000 ml/hr, Infuse Over: 1 hr, Route: IV, 1,000, Drug form: INJ, ONCE, Priority: STAT, Dosing Weight 55.909 kg, Start date: 09/26/13 15:15:00, Duration: 1 doses or times, Stop date: 09/26/13 15:15:00 Inactive 09/26/2013 [facility] Sulfamethoxazole 800 MG / Trimethoprim 160 MG Oral Tablet [Bactrim] 1 tab, PO, BID, # 14 tab, 0 Refill(s) Active 09/22/2013 [facility] Pepcid 20 mg, 2 mL, Route: IV, Drug form: INJ, ONCE, Dosing Weight 55.909, kg, Start date: 09/21/13 19:36:00, Stop date: 09/21/13 19:36:00Notes: (Same as: Pepcid) Can be dilute in 5-10cc NS IVP: Slow IV push over at least 2 minutes. Inactive 09/22/2013 [facility] Benadryl 12.5 mg, 0.25 mL, Route: IVP, Drug form: INJ, ONCE, Dosing Weight 55.909, kg, Priority: STAT, Start date: 09/21/13 19:35:00, Stop date: 09/21/13 19:35:00Notes: (Same as: Benadryl) Inactive 09/22/2013 [facility] Docusate Sodium 100 MG Oral Capsule [Colace] 100 mg=1 cap, PO, BID, Constipation, # 20 cap, 0 Refill(s) Active 09/22/2013 [facility] Psyllium 500 MG Oral Capsule [Metamucil] 1,000 mg=2 cap, PO, TID, for constipation, # 100 cap, 0 Refill(s) Active 09/22/2013 [facility] POLYETHYLENE GLYCOL 3350 142 MG/ML Oral Solution [Miralax] 17 gm, PO, Daily, # 527 gm, 0 Refill(s) Active 09/22/2013 [facility] Benadryl 25 mg, 1 tab, Route: PO, Drug form: TAB, ONCE, Dosing Weight 55.909, kg, Priority: STAT, Start date: 09/21/13 18:48:00, Stop date: 09/21/13 18:48:00 Inactive 09/21/2013 [facility] Morphine 4 mg, 1 mL, Route: IVP, Drug form: INJ, ONCE, Dosing Weight 55.909, kg, Priority: STAT, Start date: 09/21/13 18:48:00, Stop date: 09/21/13 18:48:00Notes: (Same as:MORPhine Sulfate) Inactive 09/21/2013 [facility] GI cocktail 30 mL, Route: PO, Drug Form: SUSP, Dosing Weight 55.909, kg, ONCE, STAT, Start date: 09/21/13 18:47:00, Stop date: 09/21/13 18:47:00Notes: G.I. Cocktail=antacid with simethicone 22.5 mL - lidocaine v iscous 7.5 mL Inactive 09/21/2013 [facility] Saline Flush 0.9% 5 mL, Route: IVP, Drug Form: INJ, Dosing Weight 55.909, kg, PRN, PRN Line Flush, Start date: 09/21/13 18:17:00, Duration: 24 hr, Stop date: 09/22/13 18:16:00Notes: (Same as: BD Posiflush) Inactive 09/21/2013 [facility] Morphine 4 mg, 1 mL, Route: IVP, Drug form: INJ, ONCE, Dosing Weight 55.909, kg, Priority: STAT, Start date: 09/12/13 20:33:00, Stop date: 09/12/13 20:33:00Notes: (Same as:MORPhine Sulfate) Inactive 09/13/2013 [facility] Phenergan 25 mg, 50 mL, Route: IVPB, Drug form: SOLN, ONCE, Dosing Weight 55.909, kg, Priority: STAT, Start date: 09/12/13 20:33:00, Stop date: 09/12/13 20:33:00 Inactive 09/13/2013 [facility] GI cocktail 30 mL, Route: PO, Dosing Weight 55.909, kg, ONCE, STAT, Start date: 09/12/13 19:32:00, Stop date: 09/12/13 19:32:00 Inactive 09/13/2013 [facility] Morphine 6 mg, Route: IVP, Drug form: INJ, ONCE, Dosing Weight 55.909, kg, Priority: STAT, Start date: 09/12/13 19:32:00, Stop date: 09/12/13 19:32:00 Inactive 09/13/2013 [facility] Benadryl 25 mg, Route: IVP, ONCE, Dosing Weight 55.909, kg, Priority: STAT, Start date: 09/12/13 19:31:00, Stop date: 09/12/13 19:31:00 Inactive 09/13/2013 [facility] Compazine 10 mg, Route: IV, ONCE, Dosing Weight 55.909, kg, Start date: 09/12/13 19:31:00, Stop date: 09/12/13 19:31:00 Inactive 09/13/2013 [facility] Sodium Chloride 0.154 MEQ/ML Injectable Solution 1,000 mL, 1,000 ml/hr, Infuse Over: 1 hr, Route: IV, ONCE, Priority: STAT, Dosing Weight 55.909 kg, Start date: 09/12/13 19:31:00, Duration: 1 doses or times, Stop date: 09/12/13 19:31:00 Inactive 09/13/2013 [facility] Hydralazine 15 mg, 0.75 mL, Route: IVP, Drug form: INJ, Q4H, Dosing Weight 56.108, kg, PRN Elevated BP, Start date: 09/08/13 11:13:00, Duration: 30 day, Stop date: 10/08/13 11:12:00, SBP > 165 or DBP > 95 mmHgNotes: (Same as: Apresoline) Push over 5 minutes Inactive 09/08/2013 [facility] erythromycin 250 mg oral tablet 250 mg=1 tab, PO, Q6H, # 28 tab, 0 Refill(s) Active 09/08/2013 [facility] Acetaminophen 300 MG / Codeine Phosphate 30 MG Oral Tablet [Tylenol with Codeine #3] 1 tab, PO, Q6H, Pain, # 30 tab, 0 Refill(s) Active 09/08/2013 [facility] ALPRAZOLam 0.25 mg oral tablet, disintegrating 0.25 mg=1 tab, PO, Q8H, Anxiety, # 30 tab, 0 Refill(s) Active 09/08/2013 [facility] Metoclopramide 10 MG Oral Tablet [Reglan] 10 mg=1 tab, PO, TID, # 40 tab, 0 Refill(s) Active 09/08/2013 [facility] Acetaminophen 300 MG / Codeine Phosphate 30 MG Oral Tablet [Tylenol with Codeine #3] 1 tab, Route: PO, Drug Form: TAB, Dosing Weight 56.108, kg, Q6H, PRN Pain, Start date: 09/08/13 10:50:00, Duration: 30 day, Stop date: 10/08/13 10:49:00Notes: Do not exceed 4gm/day of acetaminophen. (Same as: Tylenol with Codeine # 3) Inactive 09/08/2013 [facility] ciprofloxacin 500 mg oral tablet 500 mg=1 tab, PO, Q12H, # 20 tab, 0 Refill(s) Active 09/07/2013 [facility] Docusate Sodium 100 MG Oral Capsule 100 mg=1 cap, PO, BID, Constipation, # 28 cap, 0 Refill(s) Active 09/07/2013 [facility] oxybutynin 5 mg oral tablet 5 mg=1 tab, PO, TID, # 90 tab, 0 Refill(s) Active 09/07/2013 [facility] Naloxone 0.1 mg, 0.25 mL, Route: IVP, Drug form: SOLN, Q2MIN, Dosing Weight 56.108, kg, PRN Narcotic Reversal, Start date: 09/04/13 16:54:00, Duration: 4 doses or times, Stop date: 09/05/13 0:00:00Notes: Same as: Narcan No Longer Active 09/04/2013 [facility] Flumazenil 0.2 mg, 2 mL, Route: IVP, Drug form: INJ, PRN, Dosing Weight 56.108, kg, PRN Other -See Comment, Start date: 09/04/13 16:54:00, Duration: 1 doses or times, Stop date: 09/05/13 0:00:00Notes: (Same as: Romazicon) No Longer Active 09/04/2013 [facility] Hydralazine 20 mg, 1 mL, Route: IV, Drug form: INJ, Q6H, Dosing Weight 59.091, kg, PRN Hypertension, Start date: 09/03/13 17:31:00, Duration: 30 day, Stop date: 10/03/13 17:30:00Notes: (Same as: Apresoline) Push over 5 minutes No Longer Active 09/03/2013 [facility] Reglan 10 mg, 2 mL, Route: IVP, Drug form: INJ, Q6H-02, Dosing Weight 59.091, kg, Start date: 09/03/13 15:00:00, Duration: 30 day, Stop date: 10/03/13 14:00:00Notes: (Same as: Reglan) No Longer Active 09/03/2013 [facility] Claritin 10 mg, 1 tab, Route: PO, Drug form: TAB, Daily, Dosing Weight 56.108, kg, Start date: 09/03/13 9:00:00, Duration: 30 day, Stop date: 10/02/13 9:00:00Notes: 1 hr before meals (Same as: Claritin) No Longer Active 09/03/2013 [facility] Digoxin 0.25 MG Oral Tablet 250 microgram, 1 tab, Route: PO, Drug form: TAB, Daily, Dosing Weight 56.108, kg, Start date: 09/03/13 9:00:00, Duration: 30 day, Stop date: 10/02/13 9:00:00Notes: Take on an Empty Stomach (Same as: Lanoxin) No Longer Active 09/03/2013 [facility] metoprolol tartrate 50 mg, 1 tab, Route: PO, Drug form: TAB, Q12H, Dosing Weight 56.108, kg, Start date: 09/02/13 21:00:00, Duration: 30 day, Stop date: 10/02/13 9:00:00Notes: (Same as: Lopressor) No Longer Active 09/03/2013 [facility] zolpidem 5 mg, 1 tab, Route: PO, Drug form: TAB, Bedtime, Dosing Weight 56.108, kg, Start date: 09/02/13 21:00:00, Duration: 30 day, Stop date: 10/01/13 21:00:00Notes: (Same As: Ambien) No Longer Active 09/03/2013 [facility] Ciprofloxacin 400 mg, 200 mL, Route: IVPB, Drug form: INJ, [id number], Dosing Weight 56.108, kg, Start date: 09/02/13 21:00:00, Duration: 30 day, Stop date: 10/02/13 9:00:00Notes: Do not refrigerate No Longer Active 09/03/2013 [facility] Pepcid 20 mg, 1 tab, Route: PO, Drug form: TAB, Bedtime, Dosing Weight 56.108, kg, Start date: 09/02/13 21:00:00, Duration: 30 day, Stop date: 10/01/13 21:00:00Notes: (Same as: Pepcid) No Longer Active 09/03/2013 [facility] Enalapril 20 mg, 2 tab, Route: PO, Drug form: TAB, BID, Dosing Weight 56.108, kg, Start date: 09/02/13 21:00:00, Duration: 30 day, Stop date: 10/02/13 9:00:00Notes: (Same as: Vasotec) No Longer Active 09/03/2013 [facility] Clonidine Hydrochloride 0.2 MG Oral Tablet 0.2 mg, 1 tab, Route: PO, Drug form: TAB, BID, Dosing Weight 56.108, kg, Start date: 09/02/13 21:00:00, Duration: 30 day, Stop date: 10/02/13 9:00:00Notes: (Same As: Catapres) No Longer Active 09/03/2013 [facility] Phenergan 25 mg, 50 mL, Route: IVP Central, Drug form: SOLN, ONCE, Dosing Weight 56.108, kg, PRN Nausea & Vomiting, Start date: 09/02/13 18:53:00, Stop date: 10/02/13 18:52:00 Inactive 09/02/2013 [facility] Robaxin 500 mg, 1 tab, Route: PO, Drug form: TAB, BID, Dosing Weight 56.108, kg, Start date: 09/02/13 17:00:00, Duration: 30 day, Stop date: 10/02/13 9:00:00Notes: (Same as:Robaxin) No Longer Active 09/02/2013 [facility] Ativan 0.5 mg, 1 tab, Route: PO, Drug form: TAB, TID, Dosing Weight 56.108, kg, Start date: 09/02/13 17:00:00, Duration: 30 day, Stop date: 10/02/13 13:00:00Notes: (Same as: Ativan) No Longer Active 09/02/2013 [facility] Promethazine 25 mg, 1 tab, Route: PO, Drug form: TAB, TID, Dosing Weight 56.108, kg, Start date: 09/02/13 17:00:00, Duration: 30 day, Stop date: 10/02/13 13:00:00Notes: (Same as: Phenergan) No Longer Active 09/02/2013 [facility] Lidocaine Hydrochloride 10 MG/ML Injectable Solution 5 mL, Route: INTRADERM, Drug Form: INJ, Dosing Weight 56.108, kg, ONCALL, Start date: 09/02/13 17:00:00, Duration: 1 day, Stop date: 09/03/13 16:59:00Notes: (Same as: Xylocaine) No Longer Active 09/02/2013 [facility] ferrous sulfate 325 mg, 1 tab, Route: PO, Drug form: TAB, BID, Dosing Weight 56.108, kg, Start date: 09/02/13 17:00:00, Duration: 30 day, Stop date: 10/02/13 9:00:00Notes: Give with food. iron elemental [id number] as ferrous sulfate Dose=___mg elemental iron No Longer Active 09/02/2013 [facility] Benadryl 50 mg, 2 tab, Route: PO, Drug form: TAB, QID, Dosing Weight 56.108, kg, Start date: 09/02/13 17:00:00, Duration: 30 day, Stop date: 10/02/13 13:00:00 No Longer Active 09/02/2013 [facility] Glucagon 1 mg, Route: IM, Drug form: PDR/INJ, PRN, Dosing Weight 56.108, kg, PRN Blood Glucose Results, Start date: 09/02/13 16:51:00, Duration: 30 day, Stop date: 10/02/13 16:50:00 No Longer Active 09/02/2013 [facility] Dextrose 50% Syringe 12.5 gm, 25 mL, Route: IVP, Drug Form: INJ, Dosing Weight 56.108, kg, PRN, PRN Blood Glucose Results, Start date: 09/02/13 16:51:00, Duration: 30 day, Stop date: 10/02/13 16:50:00 No Longer Active 09/02/2013 [facility] Insulin, Aspart, Human 4 unit, 0.04 mL, [...] days from Date No Longer Active 09/02/2013 [facility] Protonix 40 mg, 1 tab, Route: PO, Drug form: ECTAB, Before Dinner, Dosing Weight 56.108, kg, Start date: 09/02/13 16:30:00, Duration: 30 day, Stop date: 10/01/13 16:30:00Notes: Tablet should not be chewed or crushed. (Same as: Protonix) No Longer Active 09/02/2013 [facility] Carafate 1 gm, 1 tab, Route: PO, Drug form: TAB, BID-Before Meals, Dosing Weight 56.108, kg, Start date: 09/02/13 16:30:00, Duration: 30 day, Stop date: 10/02/13 7:30:00Notes: May interfere w/enteral feeds - Take 1 hr before or 2 hr after antacids, dairy pdt, meals & minerals - On empty stomach. (Same As: Carafate) No Longer Active 09/02/2013 [facility] Morphine 30 mg, 1 tab, Route: PO, Drug form: TAB, Q4H, Dosing Weight 56.108, kg, PRN For Pain, Start date: 09/02/13 15:59:00, Duration: 30 day, Stop date: 10/02/13 15:58:00 No Longer Active 09/02/2013 [facility] Diazepam 10 mg, 2 tab, Route: PO, Drug form: TAB, BID, Dosing Weight 56.108, kg, PRN as needed for anxiety, Start date: 09/02/13 15:58:00, Duration: 30 day, Stop date: 10/02/13 15:57:00Notes: (Same as: Valium) No Longer Active 09/02/2013 [facility] Cipro 500 mg, 1 tab, Route: PO, Drug form: TAB, [id number], Start date: 09/02/13 14:00:00, Duration: 30 day, Stop date: 10/02/13 2:00:00Notes: May interfere w/enteral feedings - Take 1 hr before or [address] antacids, dairy pdt & minerals. On empty stomach. Inactive 09/02/2013 [facility] oxybutynin 5 mg, 1 tab, Route: PO, Drug form: TAB, TID, Dosing Weight 56.108, kg, Start date: 09/02/13 13:30:00, Duration: 30 day, Stop date: 10/02/13 6:00:00Notes: Same as: Ditropan) No Longer Active 09/02/2013 [facility] Morphine 4 mg, 1 mL, Route: IVP, Drug form: INJ, Q3H, Dosing Weight 59.091, kg, PRN Pain, Start date: 09/02/13 12:50:00, Duration: 30 day, Stop date: 10/02/13 12:49:00Notes: (Same as:MORPhine Sulfate) No Longer Active 09/02/2013 [facility] Hydralazine 20 mg, 1 mL, Route: IV, Drug form: INJ, Q6H, Dosing Weight 59.091, kg, Start date: 09/02/13 12:00:00, Duration: 30 day, Stop date: 10/02/13 6:00:00Notes: (Same as: Apresoline) Push over 5 minutes No Longer Active 09/02/2013 [facility] Clonidine Hydrochloride 0.2 MG Oral Tablet 0.2 mg, PO, TID, 0 Refill(s) Active 09/02/2013 [facility] promethazine 25 mg oral tablet 25 mg=1 tab, PO, TID, 0 Refill(s) Active 09/02/2013 [facility] Lorazepam 0.5 MG Oral Tablet [Ativan] 0.5 mg=1 tab, PO, TID, 0 Refill(s) Active 09/02/2013 [facility] Lantus 10 unit, SUB-Q, Bedtime, 0 Refill(s) Active 09/02/2013 [facility] zolpidem 10 mg oral tablet 10 mg=1 tab, PO, Bedtime, 0 Refill(s) Active 09/02/2013 [facility] morphine 30 mg oral tablet 30 mg=1 tab, PO, Q4H, as needed for pain, 0 Refill(s) Active 09/02/2013 [facility] enalapril 20 mg oral tablet 20 mg=1 tab, PO, BID, 0 Refill(s) Active 09/02/2013 [facility] Protonix 40 mg, PO, Daily, 0 Refill(s) Active 09/02/2013 [facility] Claritin 10 mg, PO, Daily, 0 Refill(s) Active 09/02/2013 [facility] Enoxaparin 40 mg, 0.4 mL, Route: SUB-Q, Drug form: INJ, [id number], Dosing Weight 59.091, kg, Start date: 09/02/13 9:00:00, Duration: 30 day, Stop date: 10/01/13 9:00:00Notes: (Same as: Lovenox) No Longer Active 09/02/2013 [facility] Ciprofloxacin 500 mg, Route: PO, [id number], Dosing Weight 59.091, kg, (For CrCl > /=30 ml/min), Start date: 09/02/13 9:00:00, Duration: 30 day, Stop date: 10/01/13 21:00:00 Inactive 09/02/2013 [facility] normal saline 0.9% IV 1000 mL 1,000 mL, Rate: 150 ml/hr, Infuse over: 6.7 hr, Route: IV, Dosing Weight 59.091 kg, Total Volume: 1,000, Priority: STAT, Start date: 09/02/13 8:35:00, Duration: 1 doses or times, Stop date: 09/02/13 15:16:00 Inactive 09/02/2013 [facility] Alprazolam 0.25 mg, 1 tab, Route: PO, Drug form: TAB, Q8H, Dosing Weight 59.091, kg, PRN Anxiety, Start date: 09/02/13 8:32:00, Duration: 30 day, Stop date: 10/02/13 8:31:00Notes: With food or milk (Same as: Xanax) No Longer Active 09/02/2013 [facility] Promethazine 12.5 mg, 1 supp, Route: WI, Drug form: SUPP, Q6H, Dosing Weight 59.091, kg, PRN Nausea & Vomiting, Start date: 09/02/13 8:32:00, Duration: 30 day, Stop date: 10/02/13 8:31:00Notes: (Same as: Phenerga n) No Longer Active 09/02/2013 [facility] Reglan 10 mg, 2 mL, Route: IVP, Drug form: INJ, Q6H, Dosing Weight 59.091, kg, PRN Nausea & Vomiting, Start date: 09/02/13 8:32:00, Duration: 30 day, Stop date: 10/02/13 8:31:00Notes: (Same as: Reglan) No Longer Active 09/02/2013 [facility] 1/2NS + KCL 20mEq/L 1000ml (Premix) 1,000 mL 1,000 mL, Rate: 100 ml/hr, Infuse over: 10 hr, Route: IV, Dosing Weight 59.091 kg, Total Volume: 1,000, Start date: 09/02/13 8:30:00, Stop date: 10/02/13 8:29:00 No Longer Active 09/02/2013 [facility] Saline Flush 0.9% 5 ml, Route: IVP, Drug Form: INJ, Dosing Weight 59.091, kg, PRN, PRN Line Flush, Start date: 09/02/13 8:30:00, Duration: 30 day, Stop date: 10/02/13 8:29:00Notes: (Same as: BD Posiflush) No Longer Active 09/02/2013 [facility] Sodium Chloride 0.154 MEQ/ML Injectable Solution 1,000 mL, Rate: 125 ml/hr, Infuse over: 8 hr, Route: IV, Dosing Weight 59.091 kg, Total Volume: 1,000, Start date: 09/02/13 8:30:00, Duration: 30 day, Stop date: 10/02/13 8:29:00 Inactive 09/02/2013 [facility] Docusate 100 mg, 1 cap, Route: PO, Drug form: CAP, BID, Dosing Weight 59.091, kg, PRN Constipation, Start date: 09/02/13 8:30:00, Duration: 30 day, Stop date: 10/02/13 8:29:00Notes: (Same as: Colace) (Do Not Crush) No Longer Active 09/02/2013 [facility] Acetaminophen 650 mg, 20.3 mL, Route: PO, Drug form: LIQ, Q4H, Dosing Weight 59.091, kg, PRN Pain 1-3/Temp > 100.4 F, Start date: 09/02/13 8:30:00, Duration: 30 day, Stop date: 10/02/13 8:29:00Notes: Max aceta [id number]/day (4 gm/day). (Same as: Tylenol) No Longer Active 09/02/2013 [facility] Morphine 2 mg, 1 mL, Route: IVP, Drug form: INJ, Q3H, Dosing Weight 59.091, kg, PRN Pain Score 4-6, Start date: 09/02/13 8:30:00, Duration: 30 day, Stop date: 10/02/13 8:29:00Notes: (Same as:MORPhine Sulfate) Inactive 09/02/2013 [facility] Phenergan Route: IVPB, ONCE, Dosing Weight 59.091, kg, Start date: 09/02/13 6:38:00, Stop date: 09/02/13 6:38:00 Inactive 09/02/2013 [facility] Morphine 4 mg, 1 mL, Route: IVP, Drug form: INJ, ONCE, Dosing Weight 59.091, kg, Start date: 09/02/13 6:27:00, Stop date: 09/02/13 6:27:00Notes: (Same as:MORPhine Sulfate) Inactive 09/02/2013 [facility] Hydralazine 10 mg, Route: IVP, ONCE, Dosing Weight 59.091, kg, Priority: STAT, Start date: 09/02/13 5:03:00, Stop date: 09/02/13 5:03:00 Inactive 09/02/2013 [facility] Benadryl 12.5 mg, 0.25 mL, Route: IVP, Drug form: INJ, ONCE, Dosing Weight 59.091, kg, Priority: STAT, Start date: 09/02/13 3:44:00, Stop date: 09/02/13 3:44:00Notes: (Same as: Benadryl) Inactive 09/02/2013 [facility] Phenergan 12.5 mg, Route: IM, ONCE, Dosing Weight 59.091, kg, Priority: STAT, Start date: 09/02/13 3:44:00, Stop date: 09/02/13 3:44:00 Inactive 09/02/2013 [facility] Morphine 4 mg, Route: IVP, Drug form: INJ, ONCE, Dosing Weight 59.091, kg, Priority: STAT, Start date: 09/02/13 3:44:00, Stop date: 09/02/13 3:44:00 Inactive 09/02/2013 [facility] Sodium Chloride 0.154 MEQ/ML Injectable Solution 1,000 mL, 1,000 ml/hr, Infuse Over: 1 hr, Route: IV, 1,000, Drug form: INJ, ONCE, Priority: STAT, Dosing Weight 59.091 kg, Start date: 09/02/13 3:32:00, Duration: 1 doses or times, Stop date: 09/02/13 3:32:00 Inactive 09/02/2013 [facility] GI cocktail 30 mL, Route: PO, Dosing Weight 59.091, kg, ONCE, STAT, Start date: 09/02/13 2:28:00, Stop date: 09/02/13 2:28:00 Inactive 09/02/2013 [facility] Cipro 400 mg, Route: IVPB, ONCE, Dosing Weight 59.091, kg, Priority: STAT, Start date: 09/02/13 2:10:00, Stop date: 09/02/13 2:10:00 Inactive 09/02/2013 [facility] Morphine 2 mg, Route: IVP, Drug form: INJ, ONCE, Dosing Weight 59.091, kg, Priority: STAT, Start date: 09/02/13 2:04:00, Stop date: 09/02/13 2:04:00 Inactive 09/02/2013 [facility] Clonidine 0.1 mg, Route: PO, Drug form: TAB, ONCE, Dosing Weight 59.091, kg, Priority: STAT, Start date: 09/02/13 2:01:00, Stop date: 09/02/13 2:01:00 Inactive 09/02/2013 [facility] Phenergan 12.5 mg, 0.5 mL, Route: IM, Drug form: INJ, ONCE, Dosing Weight 59.091, kg, Priority: STAT, Start date: 09/02/13 1:32:00, Stop date: 09/02/13 1:32:00Notes: Do not give IV push. (Same as: Phenergan) Inactive 09/02/2013 [facility] Omnipaque 240 50 mL, Route: PO, Drug Form: SOLN, Dosing Weight 59.091, kg, ONCE, Start date: 09/02/13 1:06:00, Stop date: 09/02/13 1:06:00Notes: (Same as:Omnipaque 240) 12,000mg/50ml Inactive 09/02/2013 [facility] Benadryl 12.5 mg, 0.25 mL, Route: IVP, Drug form: INJ, ONCE, Dosing Weight 59.091, kg, Priority: STAT, Start date: 09/02/13 0:41:00, Stop date: 09/02/13 0:41:00Notes: (Same as: Benadryl) Inactive 09/02/2013 [facility] Phenergan 25 mg, 50 mL, Route: IVPB, Drug form: SOLN, ONCE, Dosing Weight 59.091, kg, Priority: STAT, Start date: 09/02/13 0:41:00, Stop date: 09/02/13 0:41:00 Inactive 09/02/2013 [facility] Morphine 4 mg, 1 mL, Route: IVP, Drug form: INJ, ONCE, Dosing Weight 59.091, kg, Priority: STAT, Start date: 09/02/13 0:41:00, Stop date: 09/02/13 0:41:00Notes: (Same as:MORPhine Sulfate) Inactive 09/02/2013 [facility] Sodium Chloride 0.154 MEQ/ML Injectable Solution 1,000 mL, 1,000 ml/hr, Infuse Over: 1 hr, Route: IV, 1,000, Drug form: INJ, ONCE, Priority: STAT, Dosing Weight 59.091 kg, Start date: 09/01/13 23:58:00, Duration: 1 doses or times, Stop date: 09/01/13 23:58:00 No Longer Active 09/02/2013 [facility] Saline Flush 0.9% 5 mL, Route: IVP, Drug Form: INJ, Dosing Weight 59.091, kg, PRN, PRN Line Flush, Start date: 09/01/13 23:58:00, Duration: 24 hr, Stop date: 09/02/13 23:57:00Notes: (Same as: BD Posiflush) No Longer Active 09/02/2013 [facility] Sulfamethoxazole 800 MG / Trimethoprim 160 MG Oral Tablet [Bactrim] 1 tab, PO, BID, # 14 tab, 0 Refill(s) Active 08/31/2013 [facility] 24 HR Metoprolol Tartrate 100 MG Extended Release Tablet [Toprol] 100 mg=1 tab, PO, Daily, # 30 tab, 0 Refill(s) Active 08/31/2013 [facility] Clonidine Hydrochloride 0.1 MG Oral Tablet 0.1 mg=1 tab, PO, TID, # 90 tab, 0 Refill(s) Active 08/31/2013 [facility] levothyroxine 100 mcg (0.1 mg) oral tablet 100 microgram=1 tab, PO, Daily, # 30 tab, 0 Refill(s) Active 08/31/2013 [facility] dicyclomine 10 mg oral capsule 10 mg=1 cap, PO, TID, 0 Refill(s) Active 08/31/2013 [facility] Benadryl 25 mg, PO, Q6H, as needed for itching, 0 Refill(s) Active 08/31/2013 [facility] methocarbamol 500 mg oral tablet 1,000 mg=2 tab, PO, BID, # 80 tab, 0 Refill(s) Active 08/31/2013 [facility] Lantus See Instructions, 40 SC Q AM and 10 U SC bedtime, 0 Refill(s)Special Instructions: 40 SC Q AM and 10 U SC bedtime Active 08/31/2013 [facility] Morphine Sulfate 30 MG Extended Release Tablet [MS Contin] 30 mg=1 tab, PO, Q12H, 0 Refill(s) Active 08/31/2013 [facility] enalapril 20 mg oral tablet 20 mg=1 tab, PO, BID, 0 Refill(s) Active 08/31/2013 [facility] 168 HR Clonidine 0.0125 MG/HR Transdermal Patch [[id number]] 1 patch, TOP, Q7D, # 4 patch, 0 Refill(s) Inactive 08/31/2013 [facility] LORazepam 1 mg oral tablet 1 mg=1 tab, PO, TID, Anxiety, # 20 tab, 0 Refill(s) Active 08/31/2013 [facility] promethazine 25 mg oral tablet 25 mg=1 tab, PO, Q6H, as needed for nausea/vomiting, 0 Refill(s) Inactive 08/31/2013 [facility] Saline Flush 0.9% 10 mL, Route: IVP, Drug Form: INJ, Dosing Weight 59.091, kg, Q8H, Start date: 08/31/13 16:00:00, Duration: 30 day, Stop date: 09/30/13 8:00:00Notes: (Same as: BD Posiflush) No Longer Active 08/31/2013 [facility] Morphine 4 mg, 1 mL, Route: IVP, Drug form: INJ, Q6H, Dosing Weight 59.091, kg, PRN as needed for pain, Start date: 08/31/13 15:18:00, Duration: 30 day, Stop date: 09/30/13 15:17:00Notes: (Same as:MORPhine Sulfate) No Longer Active 08/31/2013 [facility] Saline Flush 0.9% 10 mL, Route: IVP, Drug Form: INJ, Dosing Weight 59.091, kg, PRN, PRN Line Flush, Start date: 08/31/13 12:24:00, Duration: 30 day, Stop date: 09/30/13 12:23:00Notes: (Same as: BD Posiflush) No Longer Active 08/31/2013 [facility] metoprolol tartrate 50 mg, 1 tab, Route: PO, Drug form: TAB, Q8H, Dosing Weight 59.091, kg, Start date: 08/31/13 8:00:00, Duration: 30 day, Stop date: 09/30/13 0:00:00Notes: (Same as: Lopressor) No Longer Active 08/31/2013 [facility] Ceftriaxone 1 gm, Route: IVPB, Drug form: PDR/INJ, [id number], Dosing Weight 59.091, kg, Start date: 08/31/13 8:00:00, Duration: 30 day, Stop date: 09/29/13 8:00:00 No Longer Active 08/31/2013 [facility] hydrocortisone sodium succinate INJ (for IV use) 25 mg, 0.5 mL, Route: IVP, Drug form: PDR/INJ, Q8H, Dosing Weight 59.091, kg, Start date: 08/30/13 22:00:00, Duration: 3 doses or times, Stop date: 08/31/13 14:00:00Notes: (Same as: Solu-CORTEF) No Longer Active 08/31/2013 [facility] Clonidine 0.1 mg, 1 tab, Route: PO, Drug form: TAB, TID, Dosing Weight 59.091, kg, Start date: 08/30/13 17:00:00, Duration: 30 day, Stop date: 09/29/13 13:00:00Notes: (Same As: Catapres) No Longer Active 08/30/2013 [facility] Buspirone 7.5 mg, 1.5 tab, Route: PO, Drug form: TAB, BID, Dosing Weight 59.091, kg, Start date: 08/30/13 17:00:00, Duration: 30 day, Stop date: 09/29/13 9:00:00Notes: (Same As: BuSpar) No Longer Active 08/30/2013 [facility] hydrocortisone sodium succinate INJ (for IV use) 50 mg, 1 mL, Route: IVP, Drug form: PDR/INJ, Q8H, Dosing Weight 59.091, kg, Start date: 08/29/13 22:00:00, Duration: 3 doses or times, Stop date: 08/30/13 14:00:00Notes: (Same as: Solu-CORTEF) Inactive 08/30/2013 [facility] Insulin Glargine 45 unit, 0.45 mL, Route: SUB-Q, Drug form: INJ, QPM, Dosing Weight 59.091, kg, Start date: 08/29/13 17:00:00, Stop date: 09/27/13 17:00:00Notes: Same as Marlene Herndon PEN "single patient use only" Stable for 28 days at room temperature. Expires in days from Date No Longer Active 08/29/2013 [facility] Morphine 4 mg, 1 mL, Route: IV, Drug form: INJ, Q4H, Dosing Weight 59.091, kg, PRN Back Pain, Start date: 08/29/13 11:21:00, Duration: 30 day, Stop date: 09/28/13 11:20:00Notes: (Same as:MORPhine Sulfate) No Longer Active 08/29/2013 [facility] Benadryl 25 mg, 0.5 mL, Route: IVP, Drug form: INJ, ONCE, Dosing Weight 59.091, kg, PRN Itching, Start date: 08/29/13 11:20:00Notes: (Same as: Benadryl) Inactive 08/29/2013 [facility] Insulin, Aspart, Human 10 unit, Route: SUB-Q, TID-Before Meals, Dosing Weight 59.091, kg, PRN Blood Glucose Results, Start date: 08/29/13 11:17:00, Duration: 30 day, Stop date: 09/28/13 11:16:00 Inactive 08/29/2013 [facility] Dextrose 50% Syringe 50 mL, Route: IVP, Dosing Weight 59.091, kg, PRN, PRN Blood Glucose Results, Start date: 08/29/13 11:17:00, Duration: 30 day, Stop date: 09/28/13 11:16:00 Inactive 08/29/2013 [facility] Glucagon 1 mg, Route: IM, PRN, Dosing Weight 59.091, kg, PRN Blood Glucose Results, Start date: 08/29/13 11:17:00, Duration: 30 day, Stop date: 09/28/13 11:16:00 Inactive 08/29/2013 [facility] metoprolol tartrate 50 mg, 1 tab, Route: PO, Drug form: TAB, Q12H, Dosing Weight 59.091, kg, Start date: 08/29/13 9:00:00, Duration: 30 day, Stop date: 09/27/13 21:00:00Notes: (Same as: Lopressor) No Longer Active 08/29/2013 [facility] Protonix 20 mg, Route: PO, Drug form: ECTAB, BID, Dosing Weight 59.091, kg, Start date: 08/29/13 9:00:00, Duration: 30 day, Stop date: 09/27/13 17:00:00 Inactive 08/29/2013 [facility] ferrous sulfate 325 mg, 1 tab, Route: PO, Drug form: ECTAB, BID, Dosing Weight 59.091, kg, Start date: 08/29/13 9:00:00, Duration: 30 day, Stop date: 09/27/13 17:00:00Notes: Give with food. "Do Not Crush" No Longer Active 08/29/2013 [facility] Digoxin 0.25 MG Oral Tablet 0.25 mg, 1 tab, Route: PO, Drug form: TAB, Daily, Dosing Weight 59.091, kg, Start date: 08/29/13 9:00:00, Duration: 30 day, Stop date: 09/27/13 9:00:00Notes: Take on an Empty Stomach (Same as: Lanoxin) No Longer Active 08/29/2013 [facility] Bentyl 10 mg, 1 cap, Route: PO, Drug form: CAP, BID, Dosing Weight 59.091, kg, Start date: 08/29/13 9:00:00, Duration: 30 day, Stop date: 09/27/13 17:00:00Notes: (Same as: Bentyl) No Longer Active 08/29/2013 [facility] Famotidine 20 mg, 2 mL, Route: IVP, Drug form: INJ, Q12H, Dosing Weight 59.091, kg, Start date: 08/29/13 9:00:00, Duration: 30 day, Stop date: 09/27/13 21:00:00Notes: (Same as: Pepcid) Can be dilute in 5-10cc NS IVP: Slow IV push over at least 2 minutes. Inactive 08/29/2013 [facility] Saline Flush 0.9% 5 ml, Route: MISC, Drug Form: INJ, Dosing Weight 59.091, kg, Q12H, Start date: 08/29/13 9:00:00, Duration: 30 day, Stop date: 09/27/13 21:00:00Notes: (Same as: BD Posiflush) No Longer Active 08/29/2013 [facility] Docusate 100 mg, 1 cap, Route: PO, Drug form: CAP, Q12H, Dosing Weight 59.091, kg, Start date: 08/29/13 9:00:00, Duration: 30 day, Stop date: 09/27/13 21:00:00Notes: (Same as: Colace) (Do Not Crush) No Longer Active 08/29/2013 [facility] sennosides, PRISON 8.6 mg, 1 tab, Route: PO, Drug Form: TAB, Dosing Weight 59.091, kg, Q12H, Start date: 08/29/13 9:00:00, Duration: 30 day, Stop date: 09/27/13 21:00:00Notes: (Same as: Senokot) No Longer Active 08/29/2013 [facility] Metoclopramide 10 MG Oral Tablet [Reglan] 10 mg, 1 tab, Route: PO, Drug form: TAB, QID-Before Meals, Dosing Weight 59.091, kg, Start date: 08/29/13 7:30:00, Duration: 30 day, Stop date: 09/27/13 21:00:00Notes: (Same as: Reglan) Take 30 min before meals No Longer Active 08/29/2013 [facility] Insulin, Aspart, Human 3 unit, 0.03 mL, Route: SUB-Q, Drug form: SOLN, TID-Before Meals, Dosing Weight 59.091, kg, Start date: 08/29/13 7:30:00, Duration: 30 day, Stop date: 09/27/13 16:30:00Notes: Roll in palms of hands gently; Do not shake vigorously. (Same as: NovoLOG) "single patient use only" Stable for 28 days at room temperature. Expires in days from Date No Longer Active 08/29/2013 [facility] 168 HR Clonidine 0.0125 MG/HR Transdermal Patch 1 patch, Route: TOP, Drug Form: ERFILM, Dosing Weight 59.091, kg, Q7D, NOW, Start date: 08/29/13 7:13:00, Duration: 30 day, Stop date: 09/26/13 9:00:00Notes: Patch delivers 0.3 mg/24 hours; Patch is applied weekly. [id number]. "Remove old patch before application of new patch" No Longer Active 08/29/2013 [facility] Thyroxine 100 microgram, 1 tab, Route: PO, Drug form: TAB, [id number], Dosing Weight 59.091, kg, Start date: 08/29/13 6:30:00, Duration: 30 day, Stop date: 09/27/13 6:30:00Notes: Take 1 hour before or 2 hours after meal; Enteral feeds may interefere with the absorption of this medication. (Same as:Levothroid, Synthroid) No Longer Active 08/29/2013 [facility] Merrem 500 mg, Route: IVPB, Drug form: PDR/INJ, [id number], Dosing Weight 59.091, kg, CrCL=10 -25 ml/min, Extended infusion, infuse over 3 hours, Start date: 08/29/13 2:00:00, Duration: 30 day, Stop date: 09/27/13 14:00:00Notes: Same as Merrem.. No Longer Active 08/29/2013 [facility] NPH Insulin, Pork 15 unit, 0.15 [...] Expires in days from Date Inactive 08/29/2013 [facility] Sodium Chloride 0.154 MEQ/ML Injectable Solution 500 mL, 500 ml/hr, Infuse Over: 1 hr, Route: IV, 500, Drug form: INJ, ONCE, Priority: STAT, Dosing Weight 59.091 kg, Start date: 08/29/13 1:25:00, Duration: 1 doses or times, Stop date: 08/29/13 1:25:00 Inactive 08/29/2013 [facility] Robaxin 500 mg, 1 tab, Route: PO, Drug form: TAB, BID, Dosing Weight 59.091, kg, PRN as needed for pain, Start date: 08/29/13 1:21:00, Duration: 30 day, Stop date: 09/28/13 1:20:00Notes: (Same as:Robaxin) No Longer Active 08/29/2013 [facility] Loratadine 10 mg, 1 tab, Route: PO, Drug form: TAB, Daily, Dosing Weight 59.091, kg, PRN as needed for allergy symptoms, Start date: 08/29/13 1:21:00, Duration: 30 day, Stop date: 09/28/13 1:20:00Notes: 1 hr be fore meals (Same as: Claritin) No Longer Active 08/29/2013 [facility] Ambien 10 mg, 2 tab, Route: PO, Drug form: TAB, Bedtime, Dosing Weight 59.091, kg, PRN as needed for sleep, Start date: 08/29/13 1:19:00, Duration: 30 day, Stop date: 09/28/13 1:18:00Notes: (Same As: Ambien) No Longer Active 08/29/2013 [facility] Tylenol 650 mg, 2 tab, Route: PO, Drug form: TAB, Q6H, Dosing Weight 59.091, kg, PRN Pain Score 1-5, Start date: 08/29/13 1:17:00, Duration: 30 day, Stop date: 09/28/13 1:16:00Notes: Do not exceed 4 gm/day. (Same as: Tylenol) No Longer Active 08/29/2013 [facility] Valium 2 mg, 1 tab, Route: PO, Drug form: TAB, ONCE, Dosing Weight 59.091, kg, Priority: NOW, Start date: 08/29/13 1:09:00, Stop date: 08/29/13 1:09:00Notes: (Same as: Valium) Inactive 08/29/2013 [facility] Chlorthalidone 25 MG Oral Tablet 25 mg=1 tab, PO, Daily, # 30 tab, 0 Refill(s) Active 08/29/2013 [facility] Clonidine 0 Refill(s) No Longer Active 08/29/2013 [facility] Digoxin 0.25 MG Oral Tablet 0.25 mg, PO, Daily, # 30 tab, 0 Refill(s) No Longer Active 08/29/2013 [facility] loratadine 10 mg oral tablet 10 mg=1 tab, PO, Daily, itching / rash / allergy symptoms, # 30 tab, 0 Refill(s) Active 08/29/2013 [facility] enalapril 20 mg oral tablet 0 Refill(s) No Longer Active 08/29/2013 [facility] bethanechol 25 mg oral tablet 25 mg=1 tab, PO, TID, # 30 tab, 0 Refill(s) Active 08/29/2013 [facility] morphine 30 mg oral tablet 30 mg=1 tab, PO, Q4H, Pain, 0 Refill(s) No Longer Active 08/29/2013 [facility] Metoclopramide 10 MG Oral Tablet [Reglan] 10 mg, PO, QID- Before Meals, # 40 tab, 0 Refill(s) Active 08/29/2013 [facility] pantoprazole 40 MG Granules [Protonix] =1 Pack, PO, Daily, # 30 ea, 0 Refill(s) Active 08/29/2013 [facility] promethazine 25 mg oral tablet 0 Refill(s) No Longer Active 08/29/2013 [facility] LORazepam 2 mg oral tablet 2 mg=1 tab, PO, TID, Anxiety, # 20 tab, 0 Refill(s) No Longer Active 08/29/2013 [facility] Diphenhydramine Hydrochloride 25 MG Oral Tablet [Benadryl] 0 Refill(s) No Longer Active 08/29/2013 [facility] Zolpidem tartrate 10 MG Oral Tablet [Ambien] 10 mg=1 tab, PO, Bedtime, for sleep, 0 Refill(s) Active 08/29/2013 [facility] metoprolol tartrate 50 mg oral tablet 50 mg=1 tab, PO, BID, # 60 tab, 0 Refill(s) No Longer Active 08/29/2013 [facility] Insulin, Aspart, Human 10 unit, 0.1 [...] days from Date No Longer Active 08/29/2013 [facility] Dextrose 50% Syringe 12.5 gm, 25 mL, Route: IVP, Drug Form: INJ, Dosing Weight 59.091, kg, PRN, PRN Blood Glucose Results, Start date: 08/29/13 0:03:00, Duration: 30 day, Stop date: 09/28/13 0:02:00 No Longer Active 08/29/2013 [facility] Glucagon 1 mg, Route: IM, Drug form: PDR/INJ, PRN, Dosing Weight 59.091, kg, PRN Blood Glucose Results, Start date: 08/29/13 0:03:00, Duration: 30 day, Stop date: 09/28/13 0:02:00 No Longer Active 08/29/2013 [facility] meropenem 500 mg, Route: IVPB, Drug form: PDR/INJ, [id number], Dosing Weight 59.091, kg, CrCL >=50ml/min, Extended infusion, infuse over 3 hours, Start date: 08/29/13 0:00:00, Duration: 30 day, Stop date: 09/27/13 12:00:00Notes: Same as Merrem.. Inactive 08/29/2013 [facility] Hydralazine 20 mg, 1 mL, Route: IVP, Drug form: INJ, Q4H, Dosing Weight 59.091, kg, PRN Hypertension, Start date: 08/28/13 23:30:00, Duration: 30 day, Stop date: 09/27/13 23:29:00, SBP > 150 mmHgNotes: (Same as: Apresoline) Push over 5 minutes No Longer Active 08/29/2013 [facility] Merrem 500 mg, Route: IVPB, Drug form: PDR/INJ, [id number], Dosing Weight 59.091, kg, CrCL >=50ml/min, Extended infusion, infuse over 3 hours, Start date: 08/28/13 23:00:00, Duration: 30 day, Stop date: 09/27/13 11:00:00Notes: Same as Merrem.. Inactive 08/29/2013 [facility] Morphine 2 mg, 1 mL, Route: IVP, Drug form: INJ, Q2H, Dosing Weight 59.091, kg, PRN Pain Score 1-5, Start date: 08/28/13 22:55:00, Duration: 30 day, Stop date: 09/27/13 22:54:00Notes: (Same as:MORPhine Sulfate) No Longer Active 08/29/2013 [facility] Phenergan 12.5 mg, 1 tab, Route: PO, Drug form: TAB, Q4H, Dosing Weight 59.091, kg, PRN Nausea & Vomiting, Start date: 08/28/13 22:55:00, Duration: 30 day, Stop date: 09/27/13 22:54:00Notes: (Same as: Phenergan) No Longer Active 08/29/2013 [facility] Regular Insulin, Human 100 UNT/ML Injectable [...] days from Date No Longer Active 08/29/2013 [facility] Dextrose 50% Syringe 25 gm, 50 mL, Route: IVP, Drug Form: INJ, Dosing Weight 59.091, kg, PRN, PRN Abnormal Lab Result, Start date: 08/28/13 22:27:00, Duration: 30 day, Stop date: 09/27/13 22:26:00 No Longer Active 08/29/2013 [facility] Saline Flush 0.9% 5 ml, Route: MISC, Drug Form: INJ, Dosing Weight 59.091, kg, PRN, PRN Line Flush, Start date: 08/28/13 22:27:00, Duration: 30 day, Stop date: 09/27/13 22:26:00Notes: (Same as: BD Posiflush) No Longer Active 08/29/2013 [facility] hydrocortisone sodium succinate INJ (for IV use) 100 mg, 2 mL, Route: IVP, Drug form: PDR/INJ, Q8H, Dosing Weight 59.091, kg, Priority: STAT, Start date: 08/28/13 22:27:00, Duration: 3 doses or times, Stop date: 08/29/13 14:00:00Notes: (Same as: Solu-CORTEF) No Longer Active 08/29/2013 [facility] Sodium Chloride 0.154 MEQ/ML Injectable Solution 1,000 mL, Rate: 125 ml/hr, Infuse over: 8 hr, Route: IV, Dosing Weight 59.091 kg, Total Volume: 1,000, Start date: 08/28/13 22:27:00, Duration: 30 day, Stop date: 09/27/13 22:26:00 No Longer Active 08/29/2013 [facility] Acetaminophen 650 mg, 20.3 mL, Route: PO, Drug form: LIQ, Q4H, Dosing Weight 59.091, kg, PRN Pain 1-3/Temp > 99.5 F, Start date: 08/28/13 22:27:00, Duration: 30 day, Stop date: 09/27/13 22:26:00Notes: Max acet csoicaqep=4990gd/day (4 gm/day). (Same as: Tylenol) No Longer Active 08/29/2013 [facility] Phenergan 25 mg, 50 mL, Route: IVPB, Drug form: SOLN, ONCE, Dosing Weight 59.091, kg, Priority: STAT, Start date: 08/28/13 20:43:00, Stop date: 08/28/13 20:43:00 Inactive 08/29/2013 [facility] Morphine 4 mg, 1 mL, Route: IVP, Drug form: INJ, ONCE, Dosing Weight 59.091, kg, Priority: STAT, Start date: 08/28/13 20:43:00, Stop date: 08/28/13 20:43:00Notes: (Same as:MORPhine Sulfate) Inactive 08/29/2013 [facility] metoprolol tartrate 50 mg, 1 tab, Route: PO, Drug form: TAB, ONCE, Dosing Weight 59.091, kg, Priority: STAT, Start date: 08/28/13 19:37:00, Stop date: 08/28/13 19:37:00Notes: (Same as: Lopressor) Inactive 08/29/2013 [facility] Cipro 400 mg, 200 mL, Route: IVPB, Drug form: INJ, ONCE, Dosing Weight 59.091, kg, Priority: STAT, Start date: 08/28/13 19:22:00, Stop date: 08/28/13 19:22:00Notes: Do not refrigerate Inactive 08/29/2013 [facility] Benadryl 12.5 mg, 0.25 mL, Route: IVP, Drug form: INJ, ONCE, Dosing Weight 59.091, kg, Priority: STAT, Start date: 08/28/13 19:22:00, Stop date: 08/28/13 19:22:00Notes: (Same as: Benadryl) Inactive 08/29/2013 [facility] Phenergan 12.5 mg, Route: IVPB, ONCE, Dosing Weight 59.091, kg, Priority: STAT, Start date: 08/28/13 18:19:00, Stop date: 08/28/13 18:19:00 Inactive 08/28/2013 [facility] Morphine 4 mg, Route: IVP, Drug form: INJ, ONCE, Dosing Weight 59.091, kg, Priority: STAT, Start date: 08/28/13 18:16:00, Stop date: 08/28/13 18:16:00 Inactive 08/28/2013 [facility] [facility] Ins[facility], Regular, Pork 5 unit, Route: IVP, ONCE, Dosing Weight 59.091, kg, Priority: STAT, Start date: 08/28/13 16:41:00, Stop date: 08/28/13 16:41:00 Inactive 08/28/2013 [facility] Sodium Chloride 0.154 MEQ/ML Injectable Solution 1,000 mL, 1,000 ml/hr, Infuse Over: 1 hr, Route: IV, 1,000, Drug form: INJ, ONCE, Priority: STAT, Dosing Weight 59.091 kg, Start date: 08/28/13 15:04:00, Duration: 1 doses or times, Stop date: 08/28/13 15:04:00 Inactive 08/28/2013 [facility] Saline Flush 0.9% 5 mL, Route: IVP, Drug Form: INJ, Dosing Weight 59.091, kg, PRN, PRN Line Flush, Start date: 08/28/13 15:03:00, Duration: 24 hr, Stop date: 08/29/13 15:02:00Notes: (Same as: BD Posiflush) Inactive 08/28/2013 [facility] Benadryl 12.5 mg, 0.25 mL, Route: IVP, Drug form: INJ, ONCE, Dosing Weight 59.091, kg, Priority: STAT, Start date: 08/28/13 15:03:00, Stop date: 08/28/13 15:03:00Notes: (Same as: Benadryl) Inactive 08/28/2013 [facility] Phenergan 12.5 mg, Route: IVPB, ONCE, Dosing Weight 59.091, kg, Priority: STAT, Start date: 08/28/13 15:03:00, Stop date: 08/28/13 15:03:00 Inactive 08/28/2013 [facility] Morphine 4 mg, 1 mL, Route: IVP, Drug form: INJ, ONCE, Dosing Weight 59.091, kg, Priority: STAT, Start date: 08/28/13 15:03:00, Stop date: 08/28/13 15:03:00Notes: (Same as:MORPhine Sulfate) Inactive 08/28/2013 [facility] Acetaminophen 300 MG / Codeine Phosphate 30 MG Oral Tablet [Tylenol with Codeine #3] 1 tab, PO, Q6H, for pain, # 30 tab, 0 Refill(s) Active 08/03/2013 [facility] Ciprofloxacin 500 MG Oral Tablet [Cipro] 500 mg=1 tab, PO, Q12H, # 14 tab, 0 Refill(s) Active 08/03/2013 [facility] Morphine 4 mg, 1 mL, Route: IVP, Drug form: INJ, ONCE, Dosing Weight 60, kg, Start date: 08/03/13 17:23:00, Stop date: 08/03/13 17:23:00Notes: (Same as:MORPhine Sulfate) Inactive 08/03/2013 [facility] Sodium Chloride 0.154 MEQ/ML Injectable Solution 1,000 mL, 1,000 ml/hr, Infuse Over: 1 hr, Route: IV, 1,000, Drug form: INJ, ONCE, Priority: STAT, Dosing Weight 60 kg, Start date: 08/03/13 15:16:00, Duration: 1 doses or times, Stop date: 08/03/13 15:16:00 Inactive 08/03/2013 [facility] Benadryl 12.5 mg, 0.25 mL, Route: IVP, Drug form: INJ, ONCE, Dosing Weight 59.773, kg, Priority: STAT, Start date: 08/03/13 14:52:00, Stop date: 08/03/13 14:52:00Notes: (Same as: Benadryl) Inactive 08/03/2013 [facility] Reglan 10 mg, 2 mL, Route: IVP, Drug form: INJ, ONCE, Dosing Weight 59.773, kg, Priority: STAT, Start date: 08/03/13 14:52:00, Stop date: 08/03/13 14:52:00Notes: (Same as: Reglan) Inactive 08/03/2013 [facility] Morphine 4 mg, 1 mL, Route: IVP, Drug form: INJ, ONCE, Dosing Weight 59.773, kg, Priority: STAT, Start date: 08/03/13 14:51:00, Stop date: 08/03/13 14:51:00Notes: (Same as:MORPhine Sulfate) Inactive 08/03/2013 [facility] Acetaminophen 325 MG Oral Tablet [Tylenol] =650 mg, PO, Q6H, Headache, # 20 ea, 0 Refill(s) Active 08/01/2013 [facility] Lorazepam 0.5 MG Oral Tablet [Ativan] 0.5 mg=1 tab, PO, QID, Anxiety, # 24 tab, 0 Refill(s) Active 08/01/2013 [facility] Lorazepam 1 MG Oral Tablet [Ativan] 1 mg=1 tab, PO, TID, Anxiety, # 20 tab, 0 Refill(s) Active 08/01/2013 [facility] ciprofloxacin 500 mg oral tablet 500 mg=1 tab, PO, [id number], # 10 tab, 0 Refill(s) Active 08/01/2013 [facility] Cipro 500 mg, 1 tab, Route: PO, Drug form: TAB, [id number], Dosing Weight 59.773, kg, Start date: 07/31/13 13:00:00, Duration: 30 day, Stop date: 08/30/13 1:00:00Notes: May interfere w/enteral feedings - Take 1 hr before or 2 hrs after antacids, dairy pdt & minerals. On empty stomach. No Longer Active 07/31/2013 [facility] Benadryl 25 mg, 0.5 mL, Route: IVP, Drug form: INJ, Q8H, Dosing Weight 59.773, kg, PRN as needed for itching, Start date: 07/30/13 18:14:00, Stop date: 08/29/13 18:13:00Notes: (Same as: Benadryl) No Longer Active 07/30/2013 [facility] Magnesium Sulfate 2 gm, 50 mL, Route: IVPB, Drug form: INJ, ONCE, Dosing Weight 59.773, kg, Start date: 07/30/13 8:28:00, Duration: 2 hr, Stop date: 07/30/13 8:28:00 Inactive 07/30/2013 [facility] Hydralazine 20 mg, 1 mL, Route: IVP, Drug form: INJ, Q4H, Dosing Weight 59.773, kg, PRN Hypertension, Start date: 07/30/13 0:46:00, Duration: 30 day, Stop date: 08/29/13 0:45:00Notes: (Same as: Apresoline) Push over 5 minutes No Longer Active 07/30/2013 [facility] Protonix 20 mg, Route: PO, Drug form: ECTAB, BID, Dosing Weight 54.545, kg, Start date: 07/29/13 9:00:00, Duration: 30 day, Stop date: 08/27/13 17:00:00 Inactive 07/29/2013 [facility] MS Contin 60 mg, 2 tab, Route: PO, Drug form: ERTAB, Q12H, Dosing Weight 54.545, kg, Start date: 07/29/13 9:00:00, Duration: 30 day, Stop date: 08/27/13 21:00:00Notes: Do not crush (Same as:Oramorph SR, MS Contin) No Longer Active 07/29/2013 [facility] metoprolol tartrate 50 mg, 1 tab, Route: PO, Drug form: TAB, BID, Dosing Weight 54.545, kg, Start date: 07/29/13 9:00:00, Duration: 30 day, Stop date: 08/27/13 21:00:00Notes: (Same as: Lopressor) No Longer Active 07/29/2013 [facility] Robaxin 500 mg, 1 tab, Route: PO, Drug form: TAB, BID, Dosing Weight 54.545, kg, Start date: 07/29/13 9:00:00, Duration: 30 day, Stop date: 08/27/13 21:00:00Notes: (Same as:Robaxin) No Longer Active 07/29/2013 [facility] Bentyl 10 mg, 1 cap, Route: PO, Drug form: CAP, BID, Dosing Weight 54.545, kg, Start date: 07/29/13 9:00:00, Duration: 30 day, Stop date: 08/27/13 21:00:00Notes: (Same as: Bentyl) No Longer Active 07/29/2013 [facility] Enoxaparin 40 mg, 0.4 mL, Route: SUB-Q, Drug form: INJ, [id number], Dosing Weight 54.545, kg, Start date: 07/29/13 8:00:00, Duration: 30 day, Stop date: 08/27/13 8:00:00Notes: (Same as: Lovenox) No Longer Active 07/29/2013 [facility] ferrous sulfate 325 mg, 1 tab, Route: PO, Drug form: TAB, BID-Meals, Dosing Weight 54.545, kg, Start date: 07/29/13 8:00:00, Duration: 30 day, Stop date: 08/27/13 17:00:00Notes: Give with food. iron elemental 65mg=3 25mg as ferrous sulfate Dose=___mg elemental iron No Longer Active 07/29/2013 [facility] Metoclopramide 10 MG Oral Tablet [Reglan] 10 mg, 1 tab, Route: PO, Drug form: TAB, QID-Before Meals, Dosing Weight 54.545, kg, Start date: 07/29/13 7:30:00, Duration: 30 day, Stop date: 08/27/13 21:00:00Notes: (Same as: Reglan) Take 30 min before meals No Longer Active 07/29/2013 [facility] Protonix 40 mg, 1 tab, Route: PO, Drug form: ECTAB, BID- Before Meals, Start date: 07/29/13 7:30:00, Duration: 30 day, Stop date: 08/27/13 16:30:00Notes: Tablet should not be chewed or crushed. (Same as: Taylor nix) No Longer Active 07/29/2013 [facility] Thyroxine 100 microgram, 1 tab, Route: PO, Drug form: TAB, Q630AM, Dosing Weight 54.545, kg, Start date: 07/29/13 6:30:00, Duration: 30 day, Stop date: 08/27/13 6:30:00Notes: Take 1 hour before or 2 hours after meal; Enteral feeds may interefere with the absorption of this medication. (Same as:Levothroid, Synthroid) No Longer Active 07/29/2013 [facility] meropenem 500 mg, Route: IV, Drug form: PDR/INJ, ABXQ6H, Dosing Weight 54.545, kg, Start date: 07/29/13 6:00:00, Duration: 30 day, Stop date: 08/28/13 0:00:00Notes: Same as Merrem.. No Longer Active 07/29/2013 [facility] Levemir 35 unit, 0.35 mL, Route: SUB-Q, Drug form: INJ, [id number], Dosing Weight 54.545, kg, Priority: NOW, Start date: 07/29/13 4:14:00, Duration: 30 day, Stop date: 08/27/13 18:00:00Notes: Same as Levemir "single patient use only" No Longer Active 07/29/2013 [facility] Insulin, Aspart, Human 6 unit, 0.06 mL, [...] days from Date No Longer Active 07/29/2013 [facility] Glucagon 1 mg, Route: IM, Drug form: PDR/INJ, PRN, Dosing Weight 54.545, kg, PRN Blood Glucose Results, Start date: 07/29/13 4:13:00, Duration: 30 day, Stop date: 08/28/13 4:12:00 No Longer Active 07/29/2013 [facility] Dextrose 50% Syringe 12.5 gm, 25 mL, Route: IVP, Drug Form: INJ, Dosing Weight 54.545, kg, PRN, PRN Blood Glucose Results, Start date: 07/29/13 4:13:00, Duration: 30 day, Stop date: 08/28/13 4:12:00 No Longer Active 07/29/2013 [facility] Morphine 4 mg, 1 mL, Route: IV, Drug form: INJ, Q4H, Dosing Weight 54.545, kg, PRN as needed for pain, Start date: 07/29/13 4:13:00, Duration: 30 day, Stop date: 08/28/13 4:12:00Notes: (Same as:MORPhine Sulfate) No Longer Active 07/29/2013 [facility] Sodium Chloride 0.154 MEQ/ML Injectable Solution 1,000 mL, Rate: 150 ml/hr, Infuse over: 6.7 hr, Route: IV, Dosing Weight 54.545 kg, Total Volume: 1,000, Start date: 07/29/13 4:11:00, Duration: 30 day, Stop date: 08/28/13 4:10:00 No Longer Active 07/29/2013 [facility] Saline Flush 0.9% 5 ml, Route: IVP, Drug Form: INJ, Dosing Weight 54.545, kg, PRN, PRN Line Flush, Start date: 07/29/13 4:11:00, Duration: 30 day, Stop date: 08/28/13 4:10:00Notes: (Same as: BD Posiflush) No Longer Active 07/29/2013 [facility] Phenergan 25 mg, 1 tab, Route: PO, Drug form: TAB, Q6H, Dosing Weight 54.545, kg, PRN as needed for nausea/vomiting, Start date: 07/29/13 4:09:00, Duration: 30 day, Stop date: 08/28/13 4:08:00Notes: (Same as: Phenergan) No Longer Active 07/29/2013 [facility] Ativan 0.5 mg, 1 tab, Route: PO, Drug form: TAB, QID, Dosing Weight 54.545, kg, PRN as needed for anxiety, Start date: 07/29/13 4:08:00, Duration: 30 day, Stop date: 08/28/13 4:07:00Notes: (Same as: Ativan) No Longer Active 07/29/2013 [facility] Benadryl 25 mg, 1 tab, Route: PO, Drug form: TAB, Bedtime, Dosing Weight 54.545, kg, PRN as needed for insomnia, Start date: 07/29/13 4:08:00, Duration: 30 day, Stop date: 08/28/13 4:07:00 No Longer Active 07/29/2013 [facility] Phenergan 25 mg, 50 mL, Route: IVPB, Drug form: SOLN, ONCE, Dosing Weight 54.545, kg, Priority: STAT, Start date: 07/29/13 0:38:00, Stop date: 07/29/13 0:38:00 Inactive 07/29/2013 [facility] Morphine 6 mg, 0.6 mL, Route: IVP, Drug form: SOLN, ONCE, Dosing Weight 54.545, kg, Priority: STAT, Start date: 07/29/13 0:38:00, Stop date: 07/29/13 0:38:00Notes: (Same as: MORPhine Sulfate) Inactive 07/29/2013 [facility] meropenem 1,000 mg, Route: IV, Q8H, Dosing Weight 54.545, kg, Start date: 07/29/13 0:00:00, Duration: 30 day, Stop date: 08/27/13 16:00:00 Inactive 07/29/2013 [facility] metoprolol tartrate 25 mg, 1 tab, Route: PO, Drug form: TAB, BID, Dosing Weight 54.545, kg, Start date: 07/29/13 0:00:00, Duration: 30 day, Stop date: 08/27/13 21:00:00Notes: (Same as: Lopressor) Inactive 07/29/2013 [facility] Benadryl 25 mg, 0.5 mL, Route: IVP, Drug form: INJ, ONCE, Dosing Weight 54.545, kg, Priority: STAT, Start date: 07/28/13 22:09:00, Stop date: 07/28/13 22:09:00Notes: (Same as: Benadryl) Inactive 07/29/2013 [facility] Metoprolol 5 mg, 5 mL, Route: IVP, Drug form: INJ, ONCE, Dosing Weight 54.545, kg, Priority: STAT, Start date: 07/28/13 21:46:00, Stop date: 07/28/13 21:46:00Notes: (Same as: Lopressor) Push over 2 minutes Inactive 07/29/2013 [facility] Morphine 2 mg, 1 mL, Route: IVP, Drug form: INJ, ONCE, Dosing Weight 54.545, kg, Priority: STAT, Start date: 07/28/13 19:31:00, Stop date: 07/28/13 19:31:00Notes: (Same as:MORPhine Sulfate) Inactive 07/29/2013 [facility] ferrous sulfate 325 MG Oral Tablet 325 mg=1 tab, PO, BID, # 270 tab, 0 Refill(s) Active 07/28/2013 [facility] Dicyclomine Hydrochloride 10 MG Oral Capsule [Bentyl] 10 mg=1 cap, PO, BID, # 40 cap, 0 Refill(s) Active 07/28/2013 [facility] Humalog 0 Refill(s) Active 07/28/2013 [facility] levothyroxine 100 mcg (0.1 mg) oral tablet 100 microgram=1 tab, PO, Daily, # 30 tab, 0 Refill(s) Active 07/28/2013 [facility] Diphenhydramine Hydrochloride 25 MG Oral Capsule [Benadryl] 25 mg=1 cap, PO, Bedtime, for insomnia, # 30 cap, 0 Refill(s) Active 07/28/2013 [facility] Lorazepam 0.5 MG Oral Tablet [Ativan] 0.5 mg=1 tab, PO, QID, Anxiety, # 20 tab, 0 Refill(s) No Longer Active 07/28/2013 [facility] Methocarbamol 500 MG Oral Tablet [Robaxin] 500 mg=1 tab, PO, BID, # 56 tab, 0 Refill(s) Active 07/28/2013 [facility] Lantus 70 units, SUB-Q, Daily, 0 Refill(s) Active 07/28/2013 [facility] pantoprazole 20 MG Enteric Coated Tablet [Protonix] 20 mg=1 tab, PO, BID, # 60 tab, 0 Refill(s) Active 07/28/2013 [facility] Metoclopramide 10 MG Oral Tablet [Reglan] 10 mg, PO, QID- Before Meals, # 40 tab, 0 Refill(s) Active 07/28/2013 [facility] Morphine Sulfate 60 MG Extended Release Tablet [MS Contin] 60 mg=1 tab, PO, Q12H, 0 Refill(s) Active 07/28/2013 [facility] Promethazine Hydrochloride 25 MG Oral Tablet [Phenergan] 25 mg=1 tab, PO, Q6H, Nausea, # 15 tab, 0 Refill(s) Active 07/28/2013 [facility] metoprolol tartrate 50 mg oral tablet 50 mg=1 tab, PO, BID, # 180 tab, 0 Refill(s) Active 07/28/2013 [facility] Omnipaque 240 50 mL, Route: PO, Drug Form: SOLN, Dosing Weight 54.545, kg, ONCE, Start date: 07/28/13 18:31:00, Stop date: 07/28/13 18:31:00Notes: (Same as:Omnipaque 240) 12,000mg/50ml Inactive 07/28/2013 [facility] Sodium Chloride 0.154 MEQ/ML Injectable Solution 1,000 mL, 1,000 ml/hr, Infuse Over: 1 hr, Route: IV, 1,000, Drug form: INJ, ONCE, Priority: STAT, Dosing Weight 54.545 kg, Start date: 07/28/13 18:28:00, Duration: 1 doses or times, Stop date: 07/28/13 18:28:00 Inactive 07/28/2013 [facility] Insulin, Regular, Pork 5 unit, 0.05 mL, [...] Expires in days from Date Inactive 07/28/2013 [facility] Benadryl 12.5 mg, 0.25 mL, Route: IVP, Drug form: INJ, ONCE, Dosing Weight 54.545, kg, Priority: STAT, Start date: 07/28/13 17:37:00, Stop date: 07/28/13 17:37:00Notes: (Same as: Benadryl) Inactive 07/28/2013 [facility] Phenergan 12.5 mg, 50 mL, Route: IVPB, Drug form: SOLN, ONCE, Dosing Weight 54.545, kg, Priority: STAT, Start date: 07/28/13 17:37:00, Stop date: 07/28/13 17:37:00 Inactive 07/28/2013 [facility] Morphine 6 mg, 0.6 mL, Route: IVP, Drug form: SOLN, ONCE, Dosing Weight 54.545, kg, Priority: STAT, Start date: 07/28/13 17:37:00, Stop date: 07/28/13 17:37:00Notes: (Same as: MORPhine Sulfate) Inactive 07/28/2013 [facility] Sodium Chloride 0.154 MEQ/ML Injectable Solution 1,000 mL, 1,000 ml/hr, Infuse Over: 1 hr, Route: IV, 1,000, Drug form: INJ, ONCE, Priority: STAT, Dosing Weight 54.545 kg, Start date: 07/28/13 17:10:00, Duration: 1 doses or times, Stop date: 07/28/13 17:10:00 Inactive 07/28/2013 [facility] Saline Flush 0.9% 5 mL, Route: IVP, Drug Form: INJ, Dosing Weight 54.545, kg, PRN, PRN Line Flush, Start date: 07/28/13 17:09:00, Duration: 24 hr, Stop date: 07/29/13 17:08:00Notes: (Same as: BD Posiflush) No Longer Active 07/28/2013 [facility] Insulin, Regular, Pork 10 unit, Route: IVP, ONCE, Dosing Weight 54.545, kg, Priority: STAT, Start date: 07/17/13 16:37:00, Stop date: 07/17/13 16:37:00 Inactive 07/17/2013 [facility] Morphine 2 mg, Route: IVP, Drug form: INJ, ONCE, Dosing Weight 54.545, kg, Priority: STAT, Start date: 07/17/13 16:36:00, Stop date: 07/17/13 16:36:00 Inactive 07/17/2013 [facility] Metoclopramide 10 MG Oral Tablet [Reglan] 10 mg=1 tab, PO, QID, # 28 tab, 0 Refill(s) Active 07/17/2013 [facility] ciprofloxacin 500 mg oral tablet 500 mg=1 tab, PO, Q12H, # 14 tab, 0 Refill(s) Active 07/17/2013 [facility] Benadryl 25 mg, Route: IVP, ONCE, Dosing Weight 54.545, kg, Priority: STAT, Start date: 07/17/13 15:06:00, Stop date: 07/17/13 15:06:00 Inactive 07/17/2013 [facility] Insulin, Regular, Pork 6 unit, Route: IV, ONCE, Dosing Weight 54.545, kg, Start date: 07/17/13 14:45:00, Stop date: 07/17/13 14:45:00 Inactive 07/17/2013 [facility] Sodium Chloride 0.154 MEQ/ML Injectable Solution 1,000 mL, 1,000 ml/hr, Infuse Over: 1 hr, Route: IV, ONCE, Priority: STAT, Dosing Weight 54.545 kg, Start date: 07/17/13 14:45:00, Duration: 1 doses or times, Stop date: 07/17/13 14:45:00 Inactive 07/17/2013 [facility] Ciprofloxacin 400 mg, Route: IVPB, ONCE, Dosing Weight 54.545, kg, Priority: STAT, Start date: 07/17/13 14:45:00, Stop date: 07/17/13 14:45:00 Inactive 07/17/2013 [facility] Morphine 4 mg, 1 mL, Route: IVP, Drug form: INJ, ONCE, Dosing Weight 54.545, kg, Priority: STAT, Start date: 07/17/13 14:02:00, Stop date: 07/17/13 14:02:00(Same as:MORPhine Sulfate) Inactive 07/17/2013 [facility] levothyroxine 88 mcg (0.088 mg) oral tablet 88 microgram=1 tab, PO, Daily, # 30 tab, 0 Refill(s) Active 07/17/2013 [facility] Benadryl QID, 0 Refill(s) Active 07/17/2013 [facility] Trazodone Hydrochloride 50 MG Oral Tablet 50 mg=1 tab, PO, TID, # 90 tab, 0 Refill(s) Active 07/17/2013 [facility] Saline Flush 0.9% 5 mL, Route: IVP, Drug Form: INJ, Dosing Weight 54.545, kg, PRN, PRN Line Flush, Start date: 07/17/13 13:45:00, Duration: 24 hr, Stop date: 07/18/13 13:44:00(Same as: BD Posiflush) Inactive 07/17/2013 [facility] Sodium Chloride 0.154 MEQ/ML Injectable Solution 1,000 mL, Infuse Over: 1 hr, Route: IV, ONCE, Priority: STAT, Dosing Weight 54.545 kg, Start date: 07/17/13 13:45:00, Stop date: 07/17/13 13:45:00 Inactive 07/17/2013 [facility] Reglan 10 mg, Route: IVP, Drug form: INJ, ONCE, Dosing Weight 54.545, kg, Priority: STAT, Start date: 07/17/13 13:44:00, Stop date: 07/17/13 13:44:00 Inactive 07/17/2013 [facility] erythromycin 250 mg oral tablet 250 mg, 1 tab, PO, Q8H, 90 tab, Substitution Allowed, TAB PO Active Maik 10/22/2012 [facility] insulin glargine 100 units/mL subcutaneous solution 12 unit, 0.12 mL, SUB-Q, Daily, 1 vial, 3, 3, Substitution Allowed, SOLN SUB-Q Active Maik 10/22/2012 [facility] sitagliptin 100 mg oral tablet 100 mg, 1 tab, PO, Daily, 30 tab, Substitution Allowed, TAB PO Active [facility] 10/22/2012 [facility] metFORmin 500 mg oral tablet, extended release 500 mg, 1 tab, PO, Bedtime, 30 tab, Substitution Allowed, ERTAB PO Active [facility] 10/22/2012 [facility] levothyroxine 25 mcg (0.025 mg) oral tablet 25 microgram, 1 tab, PO, Q630AM, 30 tab, Substitution Allowed, TAB PO Active [facility] 10/22/2012 [facility] promethazine 12.5 mg rectal suppository 12.5 mg, 1 supp, WI, Q6H, PRN, 90 supp, Nausea & Vomiting, Substitution Allowed, SUPP WI Active [facility] 10/22/2012 [facility] erythromycin + Sodium Chloride 0.9% IV 100 mL 250 mg, Route: IVPB, ABXQ8H, Dosing Weight 63.636, kg, Start date: 10/21/12 9:48:00, Duration: 30 day, Stop date: 11/20/12 1:48:00 IVPB No Longer Active [facility] 10/21/2012 [facility] Lantus 12 unit, 0.12 mL, Route: SUB-Q, Drug form: INJ, Daily, Dosing Weight 63.636, kg, Start date: 10/21/12 9:00:00, Duration: 30 day, Stop date: 11/19/12 9:00:00 SUB-Q No Longer Active [facility] 10/21/2012 [facility] Benadryl 25 mg, 0.5 mL, Route: IVP, Drug form: INJ, Q6H, Dosing Weight 63.636, kg, PRN Itching, Start date: 10/20/12 20:49:00, Duration: 30 day, Stop date: 11/19/12 20:48:00 IVP No Longer Active Issa 10/21/2012 [facility] digoxin 0.25 mg, 1 tab, Route: PO, Drug form: TAB, Daily, Dosing Weight 63.636, kg, Start date: 10/20/12 18:18:00, Duration: 30 day, Stop date: 11/19/12 9:00:00 PO No Longer Active Gensini 10/20/2012 [facility] labetalol 10 mg, 2 mL, Route: IVP, Drug form: INJ, ONCE, Dosing Weight 63.636, kg, PRN Hypertension, Priority: STAT, Start date: 10/20/12 11:45:00 IVP No Longer Active Nash 10/20/2012 [facility] Phenergan 12.5 mg, 1 supp, Route: WI, Drug form: SUPP, Q6H, Dosing Weight 63.636, kg, PRN Nausea & Vomiting, Start date: 10/20/12 8:18:00, Duration: 30 day, Stop date: 11/19/12 8:17:00 WI No Longer Active Ani 10/20/2012 [facility] magnesium sulfate + Sodium Chloride 0.9% IV 50 mL 1 gm, 2 mL, Route: IVPB, ONCE, Dosing Weight 63.636, kg, Start date: 10/19/12 12:19:00, Stop date: 10/19/12 12:19:00 IVPB No Longer Active Michelle 10/19/2012 [facility] Ambien 10 mg, 2 tab, Route: PO, Drug form: TAB, Bedtime, Dosing Weight 63.636, kg, Start date: 10/18/12 21:00:00, Duration: 30 day, Stop date: 11/16/12 21:00:00 PO No Longer Active Gensini 10/19/2012 [facility] naproxen 500 mg, 1 tab, Route: PO, Drug form: TAB, BID, Dosing Weight 63.636, kg, Start date: 10/18/12 17:00:00, Duration: 3 day, Stop date: 10/21/12 9:00:00 PO No Longer Active [facility] 10/18/2012 [facility] Lantus 4 unit, 0.04 mL, Route: SUB-Q, Drug form: INJ, ONCE, Dosing Weight 63.636, kg, Start date: 10/18/12 9:45:00, Stop date: 10/18/12 9:45:00 SUB-Q No Longer Active [facility] 10/18/2012 [facility] metFORmin 500 mg oral tablet, extended release 1,000 mg, 2 tab, Route: PO, Drug form: ERTAB, Bedtime, Dosing Weight 63.636, kg, Start date: 10/17/12 21:00:00, Stop date: 11/15/12 21:00:00 PO No Longer Active G[facility] 10/18/2012 [facility] Pepcid 20 mg, 1 tab, Route: PO, Drug form: TAB, BID, Start date: 10/17/12 17:00:00, Duration: 30 day, Stop date: 11/16/12 9:00:00 PO No Longer Active [facility] 10/17/2012 [facility] digoxin 250 mcg (0.25 mg) oral tablet 0.25 mg, 2 tab, Route: PO, Drug form: TAB, Daily, Dosing Weight 63.636, kg, Start date: 10/17/12 16:00:00, Duration: 30 day, Stop date: 11/16/12 17:00:00 PO No Longer Active Michelle 10/17/2012 [facility] morphine Sulfate 4 mg, 1 mL, Route: IVP, Drug form: INJ, Q4H, Dosing Weight 63.636, kg, PRN Pain, Start date: 10/17/12 14:35:00, Duration: 30 day, Stop date: 11/16/12 14:34:00 IVP No Longer Active Bubis 10/17/2012 [facility] Januvia 100 mg, 1 tab, Route: PO, Drug form: TAB, Daily, Dosing Weight 63.636, kg, Start date: 10/17/12 10:00:00, Duration: 30 day, Stop date: 11/16/12 9:00:00 PO No Longer Active Gensini 10/17/2012 [facility] glucagon 1 mg, Route: IM, Drug form: PDR/INJ, PRN, Dosing Weight 63.636, kg, PRN Blood Glucose Results, Start date: 10/16/12 18:07:00, Duration: 30 day, Stop date: 11/15/12 18:06:00 IM No Longer Active Gensini 10/16/2012 [facility] Dextrose 50% Syringe 25 gm, 50 mL, Route: IVP, Drug Form: INJ, Dosing Weight 63.636, kg, PRN, PRN Blood Glucose Results, Start date: 10/16/12 18:07:00, Duration: 30 day, Stop date: 11/15/12 18:06:00 IVP No Longer Active Gensini 10/16/2012 [facility] Insulin regular 5 unit, 0.05 mL, Route: SUB-Q, Drug form: SOLN, TID-Before Meals, Dosing Weight 63.636, kg, PRN Blood Glucose Results, Start date: 10/16/12 18:07:00, Duration: 30 day, Stop date: 11/15/12 18:06:00 SUB-Q No Longer Active Gensini 10/16/2012 [facility] Lantus 14 unit, 0.14 mL, Route: SUB-Q, Drug form: INJ, Daily, Dosing Weight 63.636, kg, Start date: 10/16/12 9:00:00, Stop date: 11/14/12 9:00:00 [facility] digoxin 0.25 mg, 1 mL, Route: IVP, Drug form: INJ, Daily, Dosing Weight 63.636, kg, Start date: 10/16/12 9:00:00, Duration: 30 day, Stop date: 11/14/12 9:00:00 IVP [facility] Longer [facility] 10/16/2012 [facility] Pepcid 20 mg, 2 mL, Route: IVP, Drug form: INJ, Q12H, Dosing Weight 63.636, kg, Start date: 10/16/12 9:00:00, Duration: 30 day, Stop date: 11/14/12 21:00:00 IVP No Longer Active Gensini 10/16/2012 [facility] hydrochlorothiazide 25 mg, 1 tab, Route: PO, Drug form: TAB, Daily, Dosing Weight 63.636, kg, Start date: 10/16/12 9:00:00, Duration: 30 day, Stop date: 11/14/12 9:00:00 [facility] Valium 2 mg, 0.4 mL, Route: IV, Drug form: INJ, Q6H, Dosing Weight 63.636, kg, PRN as needed for anxiety, Start date: 10/16/12 8:44:00, Duration: 30 day, Stop date: 11/15/12 8:43:00 IV No Longer Active Gensini 10/16/2012 [facility] levothyroxine 25 microgram, 1 tab, Route: PO, Drug form: TAB, Q630AM, Dosing Weight 63.636, kg, Start date: 10/16/12 6:30:00, Duration: 30 day, Stop date: 11/14/12 6:30:00 PO No Longer Active Gensini 10/16/2012 [facility] morphine Sulfate 3 mg, 0.75 mL, Route: IVP, Drug form: INJ, Q4H, Dosing Weight 63.636, kg, PRN Pain, Start date: 10/16/12 1:40:00, Stop date: 11/15/12 1:39:00 IVP No Longer Active Bubis 10/16/2012 [facility] Benadryl 25 mg, 0.5 mL, Route: IVP, Drug form: INJ, Q8H, Dosing Weight 63.636, kg, PRN Itching, Start date: 10/16/12 0:32:00, Duration: 30 day, Stop date: 11/15/12 0:31:00 IVP No Longer Active Maegan 10/16/2012 [facility] glucagon 1 mg, Route: IM, Drug form: PDR/INJ, PRN, Dosing Weight 63.636, kg, PRN Blood Glucose Results, Start date: 10/16/12 0:06:00, Duration: 30 day, Stop date: 11/15/12 0:05:00 IM No Longer Active Gensini 10/16/2012 [facility] Dextrose 50% Syringe 25 gm, 50 mL, Route: IVP, Drug Form: INJ, Dosing Weight 63.636, kg, PRN, PRN Blood Glucose Results, Start date: 10/16/12 0:06:00, Duration: 30 day, Stop date: 11/15/12 0:05:00 [facility] Insulin regular 5 unit, 0.05 mL, Route: SUB-Q, Drug form: SOLN, Sliding Scale, Dosing Weight 63.636, kg, PRN Blood Glucose Results, Start date: 10/16/12 0:06:00, Stop date: 11/15/12 0:05:00 SUB- Q [facility] Phenergan 12.5 mg, 0.5 mL, Route: IVPB, Drug form: INJ, Q4H, Dosing Weight 63.636, kg, PRN Nausea & Vomiting, Start date: 10/15/12 23:24:00, Duration: 30 day, Stop date: 11/14/12 23:23:00 IVPB No Longer Active Gensini 10/16/2012 [facility] metoprolol tartrate 50 mg, 1 tab, Route: PO, Drug form: TAB, Q12H, Dosing Weight 63.636, kg, Start date: 10/15/12 23:22:00, Stop date: 11/14/12 21:00:00 PO No Longer Active Michelle 10/16/2012 [facility] Insulin regular 10 unit, 0.1 mL, Route: SUB-Q, Drug form: SOLN, Sliding Scale, Dosing Weight 63.636, kg, PRN Blood Glucose Results, Start date: 10/15/12 23:20:00, Duration: 30 day, Stop date: 11/14/12 23:19:00 SUB-Q No Longer Active [facility] 10/16/2012 [facility] glucagon 1 mg, Route: IM, Drug form: PDR/INJ, PRN, Dosing Weight 63.636, kg, PRN Blood Glucose Results, Start date: 10/15/12 23:20:00, Duration: 30 day, Stop date: 11/14/12 23:19:00 IM [facility]2012 [facility] Dextrose 50% Syringe 25 gm, 50 mL, Route: IVP, Drug Form: INJ, Dosing Weight 63.636, kg, PRN, PRN Blood Glucose Results, Start date: 10/15/12 23:20:00, Duration: 30 day, Stop date: 11/14/12 23:19:00 [facility] normal saline 0.9% IV 1,000 mL 1,000 mL, Rate: 100 ml/hr, Infuse over: 10 hr, Route: IV, Dosing Weight 63.636 kg, Total Volume: 1,000, Start date: 10/15/12 23:20:00, Duration: 30 day, Stop date: 11/14/12 23:19:00 IV No Longer Active Gensini 10/16/2012 [facility] morphine Sulfate 2 mg, 1 mL, Route: IVP, Drug form: INJ, Q6H, Dosing Weight 63.636, kg, PRN Pain Score 4-6, Start date: 10/15/12 23:15:00, Duration: 30 day, Stop date: 11/14/12 23:14:00 IVP No Longer Active Issa 10/16/2012 [facility] Saline Flush 0.9% 5 ml, Route: IVP, Drug Form: INJ, Dosing Weight 63.636, kg, PRN, PRN Line Flush, Start date: 10/15/12 23:15:00, Duration: 30 day, Stop date: 11/14/12 23:14:00 IVP No Longer Active Genyessy 10/16/2012 [facility] Pepcid 25 mg, PO, Bedtime, Substitution Allowed PO Active 10/16/2012 [facility] Lantus 20 unit, SUB-Q, Bedtime, Substitution Allowed SUB-Q No Longer Active 10/16/2012 [facility] metoclopramide 10 mg oral tablet Substitution Allowed Active 10/16/2012 [facility] ferrous sulfate 65 mg, Substitution Allowed Active 10/16/2012 [facility] diazepam 10 mg oral tablet 10 mg, 1 tab, PO, BID, PRN, Anxiety, Substitution Allowed, TAB PO Active 10/16/2012 [facility] hydrochlorothiazide 25 mg oral tablet Substitution Allowed Active 10/16/2012 [facility] digoxin 250 mcg (0.25 mg) oral tablet 250 microgram, 1 tab, PO, Substitution Allowed PO Active 10/16/2012 [facility] Benadryl 50 mg, PO, Q4H, Substitution Allowed PO Active 10/16/2012 [facility] Phenergan 25 mg oral tablet 25 mg, 1 tab, PO, Q4H, PRN, 15 tab, Nausea, Substitution Allowed PO No Longer Active 10/16/2012 [facility] MS Contin 60 mg oral tablet, extended release 60 mg, 1 tab, PO, Q4H, PRN, pain, Substitution Allowed, ERTAB PO Active 10/16/2012 [facility] Carafate 1 g oral tablet Substitution Allowed Active 10/16/2012 [facility] Ambien 10 mg oral tablet 10 mg, 1 tab, PO, Bedtime, PRN, for sleep, Substitution Allowed, TAB PO Active 10/16/2012 [facility] Reglan 10 mg oral tablet 10 mg, 1 tab, PO, TID, 28 tab, Substitution Allowed, TAB PO Active 10/16/2012 [facility] Metoprolol Tartrate 25 mg oral tablet 25 mg, 1 tab, PO, BID, 60 tab, Substitution Allowed PO Active 10/16/2012 [facility] Robaxin 500 mg oral tablet 500 mg, 1 tab, PO, BID, Substitution Allowed, TAB PO Active 10/16/2012 [facility] Phenergan 12.5 mg, Route: IVPB, ONCE, Dosing Weight 63.636, kg, Priority: STAT, Start date: 10/15/12 21:28:00, Stop date: 10/15/12 21:28:00 IVPB No Longer Active Bolanos 10/16/2012 [facility] morphine Sulfate 4 mg, Route: IVP, Drug form: INJ, ONCE, Dosing Weight 63.636, kg, Priority: STAT, Start date: 10/15/12 19:36:00, Stop date: 10/15/12 19:36:00 IVP No Longer Active Bolanos 10/16/2012 [facility] promethazine 12.5 mg, Route: IVPB, ONCE, Dosing Weight 63.636, kg, Priority: STAT, Start date: 10/15/12 19:05:00, Stop date: 10/15/12 19:05:00 IVPB No Longer Active Bean 10/16/2012 [facility] morphine Sulfate 4 mg, 1 mL, Route: IVP, Drug form: INJ, ONCE, Dosing Weight 63.636, kg, Priority: STAT, Start date: 10/15/12 18:30:00, Stop date: 10/15/12 18:30:00 IVP No Longer Active Bean 10/15/2012 [facility] Reglan 10 mg, 2 mL, Route: IVP, Drug form: INJ, ONCE, Dosing Weight 63.636, kg, Priority: STAT, Start date: 10/15/12 18:30:00, Stop date: 10/15/12 18:30:00 IVP No Longer Active Bean 10/15/2012 [facility] Omnipaque 350mg/ml 95 mL, Route: IVP, Drug Form: SOLN, Dosing Weight 63.636, kg, ONCALL, STAT, Start date: 10/15/12 18:28:00, Duration: 1 doses or times, Dose=2.2ml/kg, Max [id number] -- "To be infused by Radiology Staff ONLY"Dose=2.2ml/kg, Max [id number] -- "To be infused by Radiology Staff ONLY" IVP No Longer Active Bean 10/15/2012 [facility] Insulin regular 12 unit, 0.12 mL, Route: SUB-Q, Drug form: SOLN, ONCE, Dosing Weight 63.636, kg, Priority: STAT, Start date: 10/15/12 18:27:00, Stop date: 10/15/12 18:27:00 SUB-Q No Longer Active Bean 10/15/2012 [facility] Sodium Chloride 0.9% (Bolus) IV 1,000 mL 1,000 mL, Rate: 1,000 ml/hr, Infuse over: 1 hr, Route: IV, Dosing Weight 63.636 kg, Total Volume: 1,000, Priority: STAT, Start date: 10/15/12 18:06:00, Duration: 1 doses or times, Stop date: 10/15/12 19:05:00, Bolus DoseBolus Dose IV No Longer Active Silva 10/15/2012 [facility]
[2018-10-20] MEDS ORDERED: SODIUM CHLORIDE 0.9% 50ML 50 ML ONE (01:34)
[2018-10-20] MEDS ORDERED: PROMETHAZINE HCL (IM) 25 MG/ML VIAL ONE (01:34)
[2018-10-20] MEDS ORDERED: PROMETHAZINE 12.5MG/ NACL 0.9% 12.5 MG/50 ML BAG IV ONE (01:45)
[2018-10-20] MEDS ORDERED: PROMETHAZINE12.5 MG RC (01:51)
--- NOTE | 2018-10-20 02:23 | Diagnostic Imaging Report ---
HIP 2 VIEW LT - [facility] - 2 views HISTORY: Pain COMPARISON: None available. FINDINGS: Bones: No acute displaced fracture. Osseous alignment is within normal limits. Joints: The joint spaces are well-maintained. Soft tissues: The soft tissues appear unremarkable. IMPRESSION: No acute radiographic abnormality. Signed by: Dr. Ehsan Mccann MD on 10/20/2018 2:20 AM
--- NOTE | 2018-10-20 02:25 | Diagnostic Imaging Report ---
FEMUR 2VIEW LT - [facility] - 4 radiographs HISTORY: Pain COMPARISON: None available. FINDINGS: Bones: No acute displaced fracture. Osseous alignment is within normal limits. Joints: No malalignment. Soft tissues: The soft tissues appear unremarkable. IMPRESSION: No acute fracture or dislocation of the left femur. Signed by: Dr. Ehsan Mccann MD on 10/20/2018 2:21 AM
== END 2018-10-20 02:39 | disposition home or self-care (01) ==
LOC: FSED 00:58
DX: R11.2 Nausea with vomiting, unspecified (principal); R19.7 Diarrhea, unspecified; E11.65 Type 2 diabetes mellitus with hyperglycemia; I12.0 Hypertensive chronic kidney disease with stage 5 chronic kidney disease or end stage renal disease; E11.22 Type 2 diabetes mellitus with diabetic chronic kidney disease; N18.6 End stage renal disease; Z99.2 Dependence on renal dialysis; M25.552 Pain in left hip; W18.30XA Fall on same level, unspecified, initial encounter
CPT/HCPCS: 73502; 73552; 80053; 85025; 93005; 99283; J2550

== ENCOUNTER 2018-11-12 02:12 | Emergency (ER) | payer OTHER ==
[~2018-11-12] VITALS: Ht 160 cm; Wt 56.2 kg
[~2018-11-12 02:12] MED LIST changes: +PROMETHAZINE12.5 MG RC
--- OUTSIDE RECORDS SUMMARY | 2018-11-12 02:17 | XMS REPORT | Clinical Summary ---
Author Author [facility] Organization [facility] Address Unknown Phone Unavailable Care Team Providers Care Paint Formulator Name Role Phone Ger Mukherjee MD PCP [...] 1,000 1 each 0 IVPB 1 gram ADD-[place] mg into a 8 in 100 mLIndications: [...] Elevated brain natriuretic peptide (BNP) level 01/26/2018 [facility] General Internal Medicine - Encounter 02/18/2018 [...] unspecified CKD stage; Leg swelling; Anxiety 12/27/2017 [facility] Internal Medicine - Encounter 01/03/2018 after 2017 Immunizations Name Dates Previously Given Next Due [...] Taken Vital Sign Reading 02/20/2018 2:16 AM MEASUREMENT SPECIALIST Blood Pressure 130/73 02/20/2018 2:16 AM MEASUREMENT SPECIALIST Pulse 97 02/19/2018 8:39 PM MEASUREMENT SPECIALIST Temperature 36.5 C (97.7 F) 02/20/2018 2:16 AM MEASUREMENT SPECIALIST Respiratory Rate 18 02/20/2018 2:16 AM MEASUREMENT SPECIALIST Oxygen Saturation 98% - Inhaled Oxygen - Concentration 01/31/2018 11:01 AM CDT Weight 67.5 kg (148 lb 14.4 oz) 02/19/2018 8:52 PM MEASUREMENT SPECIALIST Height 160 cm (5' 3") 12/28/2017 5:56 [...] Leads Defibrilla tors & Leads 10/12/2020 [place] [id number] IM / / [id number] Set Cathztn Hmodial Lngtrm Accs Surgical N/A: N/A ARROW 15fr 24cm Edge [employer]plicity - Implants; [employer] [id number] Expanders; [employer] Implanted: 01/02/2018 (Quantity not Extenders; on file) Surgical Wires Procedures Comments Procedure Name Priority Date/Time Associated Diagnosis CT LUMBAR SPINE WO STAT 02/20/2018 CONTRAST 1:[address] HEAD WO CONTRAST STAT 02/20/2018 12:56 AM MEASUREMENT SPECIALIST XR CHEST 1 VW PORTABLE STAT 02/20/2018 12:02 AM MEASUREMENT SPECIALIST HCG QUALITATIVE, SERUM STAT 02/19/2018 SCREEN 11:45 PM MEASUREMENT SPECIALIST PROTHROMBIN TIME WITH INR STAT 02/19/2018 10:39 PM MEASUREMENT SPECIALIST PARTIAL THROMBOPLASTIN STAT 02/19/2018 TIME (PTT) 10:39 PM MEASUREMENT SPECIALIST CREATINE KINASE, TOTAL STAT 02/19/2018 (CPK) 10:39 PM MEASUREMENT SPECIALIST ESTIMATED GFR STAT 02/19/2018 10:39 PM MEASUREMENT SPECIALIST B NATRIURETIC PEPTIDE STAT 02/19/2018 10:39 PM MEASUREMENT SPECIALIST TROPONIN STAT 02/19/2018 10:39 PM MEASUREMENT SPECIALIST BETA HYDROXYBUTYRATE STAT 02/19/2018 10:39 PM MEASUREMENT SPECIALIST COMPREHENSIVE METABOLIC STAT 02/19/2018 PANEL 10:39 PM MEASUREMENT SPECIALIST HC COMPLETE BLD COUNT STAT 02/19/2018 W/AUTO DIFF 10:39 PM MEASUREMENT SPECIALIST ECG ED PRELIMINARY Routine 02/19/2018 INTERPRETATION 9:56 PM MEASUREMENT SPECIALIST POC GLUCOSE Routine 02/19/2018 9:36 PM MEASUREMENT SPECIALIST ECG 12-LEAD STAT 02/19/2018 9:07 PM MEASUREMENT SPECIALIST POC GLUCOSE Routine 02/18/2018 1:46 PM MEASUREMENT SPECIALIST POC GLUCOSE Routine 02/18/2018 12:19 PM MEASUREMENT SPECIALIST POC GLUCOSE Routine 02/18/2018 7:44 AM MEASUREMENT SPECIALIST POC GLUCOSE Routine 02/18/2018 7:03 AM MEASUREMENT SPECIALIST POC GLUCOSE Routine 02/18/2018 1:28 AM MEASUREMENT SPECIALIST POC GLUCOSE Routine 02/17/2018 9:13 PM MEASUREMENT SPECIALIST POC GLUCOSE Routine 02/17/2018 5:37 PM MEASUREMENT SPECIALIST ULTRAFILTRATION Routine 02/17/2018 5:07 PM MEASUREMENT SPECIALIST POC GLUCOSE Routine 02/17/2018 3:38 PM MEASUREMENT SPECIALIST POC GLUCOSE Routine 02/17/2018 1:24 PM MEASUREMENT SPECIALIST POC GLUCOSE Routine 02/17/2018 12:14 PM MEASUREMENT SPECIALIST POC GLUCOSE Routine 02/17/2018 9:43 AM MEASUREMENT SPECIALIST POC GLUCOSE Routine 02/17/2018 8:01 AM MEASUREMENT SPECIALIST SMEAR REVIEW Routine 02/17/2018 4:30 AM MEASUREMENT SPECIALIST HC COMPLETE BLD COUNT Routine 02/17/2018 W/AUTO DIFF 4:30 AM MEASUREMENT SPECIALIST POC GLUCOSE Routine 02/17/2018 4:14 AM MEASUREMENT SPECIALIST ESTIMATED GFR Routine 02/17/2018 4:00 AM MEASUREMENT SPECIALIST BASIC METABOLIC PANEL Routine 02/17/2018 4:00 AM MEASUREMENT SPECIALIST POC GLUCOSE Routine 02/16/2018 11:06 PM MEASUREMENT SPECIALIST POC GLUCOSE Routine 02/16/2018 8:45 PM MEASUREMENT SPECIALIST POC GLUCOSE Routine 02/16/2018 6:20 PM MEASUREMENT SPECIALIST POC GLUCOSE Routine 02/16/2018 5:35 PM MEASUREMENT SPECIALIST HEMODIALYSIS Routine 02/16/2018 2:21 PM MEASUREMENT SPECIALIST POC GLUCOSE Routine 02/16/2018 1:37 PM MEASUREMENT SPECIALIST POC GLUCOSE Routine 02/16/2018 12:29 PM MEASUREMENT SPECIALIST POC GLUCOSE Routine 02/16/2018 7:57 AM MEASUREMENT SPECIALIST POC GLUCOSE Routine 02/15/2018 9:54 PM CDT [...] CDT ECHOCARDIOGRAM WITH Routine 01/29/2018 AGITATED SALINE (41342) 10:05 AM CDT POC GLUCOSE Routine 01/29/2018 [...] MMODE SPECTRAL 9:36 AM CDT COLOR DOPPLER ([id number]) POC GLUCOSE Routine 12/30/2017 7:43 AM CDT [...] 12-LEAD STAT 12/27/2017 9:43 PM CDT after 2017 Results * CT Lumbar Spine Wo Contrast (02/20/2018 1:01 AM MEASUREMENT SPECIALIST) Specimen Narrative Performed At EXAMINATION: CT LUMBAR [...] acute osseous abnormality of the lumbar spine. [facility]-[id number] Procedure Note Hm Interface, Radiology Results Incoming - 02/20/2018 1:10 AM MEASUREMENT SPECIALIST EXAMINATION: CT LUMBAR SPINE WO CONTRAST CLINICAL [...] acute osseous abnormality of the lumbar spine. [facility]-[id number] Performing Organization Address City/State/Zipcode Phone Number [facility] [address] [place] [address] * CT Head Wo Contrast (02/20/2018 12:56 AM MEASUREMENT SPECIALIST) Only the most recent of 3 results [...] normal. IMPRESSION: No acute intracranial abnormality identified. [facility]-[id number] Procedure Note Interface, Radiology Results Incoming - 02/20/2018 1:07 AM MEASUREMENT SPECIALIST EXAMINATION: CT HEAD WO CONTRAST CLINICAL HISTORY: [...] normal. IMPRESSION: No acute intracranial abnormality identified. [facility]-[id number] Performing Organization Address City/State/Zipcode Phone Number [facility] [address] [place] [address] * XR Chest 1 Vw Portable (02/20/2018 12:02 AM MEASUREMENT SPECIALIST) Only the most recent of 4 results within the time period is included. Specimen Narrative Performed At Examination:XR CHEST 1 VW PORTABLE [facility] Clinical History:Shortness of breath Comparison: 01/31/2018 Technique: [...] lung volume with vascular crowding or congestion. [facility]-[id number] Procedure Note Interface, Radiology Results Incoming - 02/20/2018 12:08 AM MEASUREMENT SPECIALIST Examination: XR CHEST 1 VW PORTABLE Clinical [...] lung volume with vascular crowding or congestion. [facility]-[id number] Performing Organization Address City/[facility]/[place] [address] * hCG qualitative, serum screen (02/19/2018 11:45 PM MEASUREMENT SPECIALIST) Only the most recent of 2 results within the time period is included. [facility] hCG NegativeComment: Sensitivity [facility] DEPARTMENT qualitative, of HCG test: 25 mIU/mL OF PATHOLOGY serum AND GENOMIC MEDICINE Specimen Blood Performing Organization Address [facility] Phone Number [facility] DEPARTMENT OF [address] [place] [address] PATHOLOGY AND GENOMIC MEDICINE * Estimated GFR (02/19/2018 10:39 PM MEASUREMENT SPECIALIST) Only the most recent of 18 results within the time period is included. [facility] Estimated GFR 10 (A) mL/min/1.73 m2 [facility] DEPARTMENT Comment: OF PATHOLOGY CatergoryUnitsInte AND GENOMIC rpretation MEDICINE G1 >=90 Normal or high G2 60-89Mildly decreased [id number] Mildly to moderately decreased T2d87-57 Moderately to severely decreased G4 15-29Severely decreased G5 <15Kidney failure The eGFR was calculated using the Chronic Kidney Disease Epidemiology Collaboration (CKD-EPI) equation. Interpretation is based on recommendations of the National Kidney Foundation-Kidney Disease Outcomes Quality Initiative (NKF-KDOQI) published in 2014. Specimen Plasma specimen Performing Organization Address City/[facility] Phone Number [facility] DEPARTMENT OF [address] [place] [address] PATHOLOGY AND GENOMIC MEDICINE * Beta hydroxybutyrate (02/19/2018 10:39 PM MEASUREMENT SPECIALIST) [facility] Beta 0.07 0.02 - 0.27 mmol/L [facility] hydroxybutyrate OF PATHOLOGY AND GENOMIC MEDICINE Specimen Serum Performing Organization Address [facility] Phone Number [facility] DEPARTMENT OF [address] [place] [address] PATHOLOGY AND GENOMIC MEDICINE * Troponin (02/19/2018 10:39 PM MEASUREMENT SPECIALIST) Only the most recent of 7 results within the time period is included. Pathologist [facility] Troponin <0.30 0.00 - 0.30 ng/mL [facility] DEPARTMENT Comment: OF PATHOLOGY 0.30 - 1.49 AND GENOMIC ng/mlMa MEDICINE indicate increased risk of acute coronary syndrome. >=1.5 ng/ml Consistent with acute myocardial infarction. The diagnostic value of a single normal or non-diagnostic result is questionable.Serial samples at 2-6 hour intervals are required to rule out acute myocardial injury. Specimen Plasma specimen Performing Organization Address City/[facility]/Zipcode Phone Number [facility] DEPARTMENT OF [address] [place] [address] PATHOLOGY AND [facility] * Partial thromboplastin time, activated (02/19/2018 10:39 PM MEASUREMENT SPECIALIST) Only the most recent of 4 results within the time period is included. Pathologist [facility] PTT 44.7 (H) 23.0 - 36.0 sec [facility] DEPARTMENT Comment: OF PATHOLOGY PTT therapeutic range for AND GENOMIC unfractionated heparin is MEDICINE 61.0-112.0 seconds which corresponds to Anti-Xa 0.3-0.7 U/ml. Specimen Blood Performing Organization Address [facility] Phone Number [facility] [place] [address] PATHOLOGY AND [facility] * Prothrombin time with INR (02/19/2018 10:39 PM MEASUREMENT SPECIALIST) Only the most recent of 4 results within the time period is included. Pathologist [facility] Prothrombin 15.7 (H) 11.5 - 14.5 sec [facility] DEPARTMENT time OF PATHOLOGY AND [employer] MEDICINE INR 1.3 [facility] DEPARTMENT Comment: OF PATHOLOGY The International Normalized AND GENOMIC Ratio (INR) is a therapeutic MEDICINE monitoring tool for patients who are stable on oral anticoagulant therapy. An INR of 2.0-3.0 is suggested for deep vein thrombosis/pulmonary embolism. Specimen Blood Performing Organization Address City/[facility]/Zipcode Phone Number [facility] [place] [address] PATHOLOGY AND [facility] MEDICINE * CBC with platelet and differential (02/19/2018 10:39 PM MEASUREMENT SPECIALIST) Only the most recent of 13 results within the time period is included. Pathologist [facility] WBC 5.22 4.50 - 11.00 k/uL [facility] DEPARTMENT OF PATHOLOGY AND GENOMIC MEDICINE RBC 4.05 (L) 4.20 - 5.50 m/uL [facility] DEPARTMENT OF PATHOLOGY AND GENOMIC MEDICINE HGB 11.5 (L) 12.0 - 16.0 g/dL [facility] DEPARTMENT OF PATHOLOGY AND GENOMIC MEDICINE HCT 39.6 37.0 - 47.0 % [facility] DEPARTMENT OF PATHOLOGY AND GENOMIC MEDICINE MCV 97.8 82.0 - 100.0 fL [facility] DEPARTMENT OF PATHOLOGY AND GENOMIC MEDICINE MCH 28.4 27.0 - 34.0 pg [facility] DEPARTMENT OF PATHOLOGY AND GENOMIC MEDICINE MCHC 29.0 (L) 31.0 - 37.0 g/dL [facility] DEPARTMENT OF PATHOLOGY AND GENOMIC MEDICINE RDW - SD 65.5 (H) 37.0 - 55.0 fL [facility] DEPARTMENT OF PATHOLOGY AND GENOMIC MEDICINE MPV 10.4 8.8 - 13.2 fL [facility] DEPARTMENT OF PATHOLOGY AND GENOMIC MEDICINE Platelet count 147 (L) 150 - 400 k/uL [facility] DEPARTMENT OF PATHOLOGY AND GENOMIC MEDICINE Nucleated RBC 0.00 /100 WBC [facility] DEPARTMENT OF PATHOLOGY AND GENOMIC MEDICINE Neutrophils 71.7 (H) 39.0 - 69.0 % [facility] DEPARTMENT OF PATHOLOGY AND GENOMIC MEDICINE Lymphocytes 17.6 (L) 25.0 - 45.0 % [facility] DEPARTMENT OF PATHOLOGY AND GENOMIC MEDICINE Monocytes 8.0 0.0 - 10.0 % [facility] DEPARTMENT OF PATHOLOGY AND GENOMIC MEDICINE Eosinophils 1.7 0.0 - 5.0 % [facility] DEPARTMENT OF PATHOLOGY AND GENOMIC MEDICINE Basophils 0.6 0.0 - 1.0 % [facility] DEPARTMENT OF PATHOLOGY AND GENOMIC MEDICINE Immature 0.4Comment: "Immature 0.0 - 1.0 % [facility] DEPARTMENT granulocytes granulocytes" (promyelocytes, OF PATHOLOGY myelocytes, metamyelocytes) AND GENOMIC MEDICINE Specimen Blood Performing Organization Address City/[facility]/Zipcode Phone Number [facility] DEPARTMENT OF [address] [place] [phone] PATHOLOGY AND GENOMIC MEDICINE * B natriuretic peptide (02/19/2018 10:39 PM MEASUREMENT SPECIALIST) Only the most recent of 4 results within the time period is included. BNP 506 (H) 0 - 100 pg/mL [facility] DEPARTMENT OF PATHOLOGY AND GENOMIC MEDICINE Specimen Blood Performing Organization Address City/[facility]/Zipcode Phone Number [facility] DEPARTMENT [address] [address] PATHOLOGY AND GENOMIC MEDICINE * Creatine kinase, total (CPK) (02/19/2018 10:39 PM MEASUREMENT SPECIALIST) Pathologist [facility] Creatine kinase 40 26 - 192 U/L [facility] DEPARTMENT OF PATHOLOGY AND GENOMIC MEDICINE Specimen Plasma specimen Performing Organization Address City/State/Zipcode Phone Number [facility] DEPARTMENT OF [address] [place] [address] PATHOLOGY AND GENOMIC MEDICINE * Comprehensive metabolic panel (02/19/2018 10:39 PM MEASUREMENT SPECIALIST) Only the most recent of 8 results within the time period is included. Pathologist [facility] Sodium 137 135 - 148 mEq/L [facility] DEPARTMENT OF PATHOLOGY AND GENOMIC MEDICINE Potassium 3.9 3.5 - 5.0 mEq/L [facility] DEPARTMENT OF PATHOLOGY AND GENOMIC MEDICINE Chloride 98 98 - 112 mEq/L [facility] DEPARTMENT OF PATHOLOGY AND GENOMIC MEDICINE CO2 20 (L) 24 - 31 mEq/L [facility] DEPARTMENT OF PATHOLOGY AND GENOMIC MEDICINE Anion gap 19@ANIO (H) 7 - 15 mEq/L [facility] DEPARTMENT OF PATHOLOGY AND GENOMIC MEDICINE BUN 35 (H) 6 - 20 mg/dL [facility] DEPARTMENT OF PATHOLOGY AND GENOMIC MEDICINE Creatinine 5.83 (H) 0.50 - 0.90 mg/dL [facility] DEPARTMENT OF PATHOLOGY AND GENOMIC MEDICINE Glucose 138 (H) 65 - 99 mg/dL [facility] DEPARTMENT OF PATHOLOGY AND GENOMIC MEDICINE Calcium 9.0 8.3 - 10.2 mg/dL [facility] DEPARTMENT OF PATHOLOGY AND GENOMIC MEDICINE Protein 8.5 (H) 6.3 - 8.3 g/dL [facility] DEPARTMENT Comment: OF PATHOLOGY [place] AND GENOMIC 4.6-7.0 g/dL MEDICINE 1 week 4.4-7.6 g/dL 7 months-1year 5.1-7.3 g/dL 1-2 years5.6-7 .5 g/dL >3 years6.0-8 .0 g/dL 18-150 6.3-8.3 g/dL Albumin 2.6 (L) 3.5 - 5.0 g/dL [facility] DEPARTMENT OF PATHOLOGY AND GENOMIC MEDICINE A/G ratio 0.4 (L) 0.7 - 3.8 [facility] DEPARTMENT OF PATHOLOGY AND GENOMIC MEDICINE Alkaline 205 (H) 35 - 104 U/L [facility] DEPARTMENT phosphatase OF PATHOLOGY AND GENOMIC MEDICINE AST 29 10 - 35 U/L [facility] DEPARTMENT OF PATHOLOGY AND GENOMIC MEDICINE ALT 25 5 - 50 U/L [facility] DEPARTMENT OF PATHOLOGY AND GENOMIC MEDICINE Total bilirubin 0.3 0.0 - 1.2 mg/dL [facility] DEPARTMENT OF PATHOLOGY AND GENOMIC MEDICINE Specimen Plasma specimen Performing Organization Address City/[facility] Phone Number [facility] DEPARTMENT OF [address] [place] [address] PATHOLOGY AND GENOMIC MEDICINE * ECG ED Preliminary Interpretation - NOT AN ORDER (02/19/2018 9:56 PM MEASUREMENT SPECIALIST) Only the most recent of 2 results within the time period is included. Narrative Performed At Kourtney Sanchez MD 02/20/20185:40 PM ECG ED Preliminary Interpretation - Not an Order Performed by: KOURTNEY SANCHEZ Authorized by: KOURTNEY SANCHEZ ECG reviewed by ED Physician in the absence of a fugitive detective: yes Previous ECG: Previous ECG:Compared to current [...] normal * POC glucose (02/19/2018 9:36 PM MEASUREMENT SPECIALIST) Only the most recent of 165 results within the time period is included. POC glucose 148 (H) 65 - 99 mg/dL [facility] DEPARTMENT Comment: OF PATHOLOGY No Action Needed AND GENOMIC Meter ID: [id number] MEDICINE Nozzle And Sleeve Worker: Roel Dorsey Specimen Performing Organization Address City/[facility] Phone Number [facility] DEPARTMENT OF [address] [place] [address] PATHOLOGY AND GENOMIC MEDICINE * ECG 12 lead (02/19/2018 9:07 PM MEASUREMENT SPECIALIST) Only the most recent of 4 results within the time period is included. Ventricular 101 [facility]USE rate Atrial rate 101 [facility] MUSE UT interval 186 [facility] QRSD interval 100 [facility] QT interval 392 [facility] MUSE QTC interval 508 [facility] MUSE P axis 1 58 [facility] MUSE QRS axis 1 -9 [facility] M[facility] T wave axis 75 [facility] MUSE EKG impression Sinus tachycardia-Nonspecific [facility] MUSE ST and T wave abnormality-Abnormal ECG-In automated comparison with ECG of 26-JAN-2018 23:47,-Nonspecific T wave abnormality no longer evident in Inferior leads-T wave inversion no longer evident in Lateral leads- Specimen Performing Organization Address City/[facility] Phone Number [facility] MUSE [address] [place] [address] * Smear review (02/17/2018 4:30 AM MEASUREMENT SPECIALIST) Platelet slide Kenia adequate [facility] DEPARTMENT review OF PATHOLOGY AND GENOMIC MEDICINE Anisocytosis Moderate [facility] DEPARTMENT OF PATHOLOGY AND GENOMIC MEDICINE Polychromasia Moderate [facility] DEPARTMENT OF PATHOLOGY AND GENOMIC MEDICINE Ovalocytes Moderate [facility] DEPARTMENT OF PATHOLOGY AND GENOMIC MEDICINE Specimen Performing Organization Address [facility] Phone Number [facility] DEPARTMENT OF [address] [place], [place] [phone] PATHOLOGY AND GENOMIC MEDICINE * Basic metabolic panel (02/17/2018 4:00 AM MEASUREMENT SPECIALIST) Only the most recent of 10 results within the time period is included. Sodium 136 135 - 148 mEq/L [facility] DEPARTMENT OF PATHOLOGY AND GENOMIC MEDICINE Potassium 4.8 3.5 - 5.0 mEq/L [facility] DEPARTMENT OF PATHOLOGY AND GENOMIC MEDICINE Chloride 97 (L) 98 - 112 mEq/L [facility] DEPARTMENT OF PATHOLOGY AND GENOMIC MEDICINE CO2 22 (L) 24 - 31 mEq/L [facility] DEPARTMENT OF PATHOLOGY AND GENOMIC MEDICINE Anion gap 17@ANIO (H) 7 - 15 mEq/L [facility] DEPARTMENT OF PATHOLOGY AND GENOMIC MEDICINE BUN 32 (H) 6 - 20 mg/dL [facility] DEPARTMENT OF PATHOLOGY AND GENOMIC MEDICINE Creatinine 5.52 (H) 0.50 - 0.90 mg/dL [facility] DEPARTMENT OF PATHOLOGY AND GENOMIC MEDICINE Glucose 72 65 - 99 mg/dL [facility] DEPARTMENT OF PATHOLOGY AND GENOMIC MEDICINE Calcium 8.8 8.3 - 10.2 mg/dL [facility] DEPARTMENT OF PATHOLOGY AND GENOMIC MEDICINE Specimen Plasma specimen Performing Organization Address [facility]/Zipcode Phone Number [facility] DEPARTMENT OF [address] [place] [address] PATHOLOGY AND GENOMIC MEDICINE * CT Angiogram [...] axillary lymphadenopathy, stable when compared to prior. [facility]-[id number] Procedure Note [facility], Radiology Results Incoming - 02/14/2018 7:17 [...] axillary lymphadenopathy, stable when compared to prior. [facility]-[id number] Performing Organization Address City/[facility] Phone Number [place] [phone] [place] [address] * Magnesium level (02/14/2018 12:00 PM CDT) Only the most recent of 3 results within the time period is included. Magnesium 2.5 1.6 - 2.6 mg/dL [facility] DEPARTMENT OF PATHOLOGY AND GENOMIC MEDICINE Specimen Plasma specimen Performing Organization Address City/[facility] Phone Number [address] [address] PATHOLOGY AND GENOMIC MEDICINE * Phosphorus level (02/10/2018 4:56 AM CDT) Only the most recent of 2 results within the time period is included. Phosphorus 2.1 (L) 2.4 - 4.5 mg/dL [facility] DEPARTMENT OF PATHOLOGY AND GENOMIC MEDICINE Specimen Plasma specimen Performing Organization Address City/[facility] Phone Number [facility] [place] [address] PATHOLOGY AND GENOMIC MEDICINE * Free phenytoin level (02/10/2018 4:56 AM CDT) Phenytoin, free 0.49 (L) 1.00 - 2.00 ug/mL [facility] DEPARTMENT OF PATHOLOGY AND GENOMIC MEDICINE Specimen Blood Performing Organization Address [facility] Phone Number [facility] [place] [address] PATHOLOGY AND GENOMIC MEDICINE * Phenytoin level (02/10/2018 4:56 AM CDT) Only the most recent of 4 results within the time period is included. Phenytoin 3.5 (L) 10.0 - 20.0 ug/mL [facility] DEPARTMENT Comment: OF PATHOLOGY Therapeutic Range: AND GENOMIC 10 - 20 ug/mL MEDICINE Specimen Plasma specimen Performing Organization Address [facility] Phone Number [facility] [place] [address] PATHOLOGY AND GENOMIC MEDICINE * Sedimentation rate (02/08/2018 3:30 PM CDT) Only the most recent of 2 results within the time period is included. Sedimentation 38 (H) 0 - 20 mm/hr [facility] DEPARTMENT rate OF PATHOLOGY AND GENOMIC MEDICINE Specimen Blood Performing Organization Address [facility] Phone Number [facility] [place] [address] PATHOLOGY AND GENOMIC MEDICINE * C-reactive protein (02/08/2018 11:54 AM CDT) Only the most recent of 2 results within the time period is included. CRP 0.43 0.00 - 0.50 mg/dL [facility] DEPARTMENT OF PATHOLOGY AND GENOMIC MEDICINE Specimen Plasma specimen Performing Organization Address [facility] Phone Number [facility] [place] [address] PATHOLOGY AND GENOMIC MEDICINE * MRI Shoulder [...] SOFT TISSUES: Extensive periarticular soft tissue edema. [facility]-[id number] Procedure Note Interface, Radiology Results Incoming - [...] SOFT TISSUES: Extensive periarticular soft tissue edema. [facility]-[id number] Performing Organization Address City/State/Zipcode Phone Number [facility] [address] [place] [address] * MRI Cervical Spine Wo Contrast (02/07/2018 [...] IMPRESSION: No significant cervical spine abnormality identified. [facility]-[id number] Procedure Note Hm Interface, Radiology Results Incoming [...] IMPRESSION: No significant cervical spine abnormality identified. [facility]-[id number] Performing Organization Address [facility]/Zipcode Phone Number [facility] [address] [place] [address] * MRI Brain Wo Contrast (02/07/2018 11:50 [...] are unremarkable. IMPRESSION: No acute intracranial abnormality. [id number] Procedure Note Interface, Radiology Results Incoming - [...] are unremarkable. IMPRESSION: No acute intracranial abnormality. [facility]-[id number] Performing Organization Address [facility] Phone Number [facility] [address] [place] [address] * NM Bone Scan 3 Phase (02/05/2018 [...] suggest osteomyelitis involving the proximal left humerus. [facility]-[id number] Procedure Note [facility], Radiology Results Incoming - 02/05/2018 1:36 [...] suggest osteomyelitis involving the proximal left humerus. [facility]-[id number] Performing Organization Address City/State/Zipcode Phone Number [facility] [address] [place] [address] * CBC hemogram (02/04/2018 11:30 AM CDT) Only the most recent of 3 results within the time period is included. WBC 3.45 (L) 4.50 - 11.00 k/uL [facility] DEPARTMENT OF PATHOLOGY AND GENOMIC MEDICINE RBC 3.26 (L) 4.20 - 5.50 m/uL [facility] DEPARTMENT OF PATHOLOGY AND GENOMIC MEDICINE HGB 9.0 (L) 12.0 - 16.0 g/dL [facility] DEPARTMENT OF PATHOLOGY AND GENOMIC MEDICINE HCT 31.3 (L) 37.0 - 47.0 % [facility] DEPARTMENT OF PATHOLOGY AND GENOMIC MEDICINE MCV 96.0 82.0 - 100.0 fL [facility] DEPARTMENT OF PATHOLOGY AND GENOMIC MEDICINE MCH 27.6 27.0 - 34.0 pg [facility] DEPARTMENT OF PATHOLOGY AND GENOMIC MEDICINE MCHC 28.8 (L) 31.0 - 37.0 g/dL [facility] DEPARTMENT OF PATHOLOGY AND GENOMIC MEDICINE RDW - SD 61.7 (H) 37.0 - 55.0 fL [facility] DEPARTMENT OF PATHOLOGY AND GENOMIC MEDICINE MPV 10.8 8.8 - 13.2 fL [facility] DEPARTMENT OF PATHOLOGY AND GENOMIC MEDICINE Platelet count 142 (L) 150 - 400 k/uL [facility] DEPARTMENT OF PATHOLOGY AND GENOMIC MEDICINE Nucleated RBC 0.00 /100 WBC [facility] DEPARTMENT OF PATHOLOGY AND GENOMIC MEDICINE Specimen Blood Performing Organization Address City/[facility] Phone Number [facility] OF [address] [place] [address] PATHOLOGY AND [employer] MEDICINE * Urine drugs of abuse screen (02/02/2018 1:41 PM CDT) Only the most recent of 2 results within the time period is included. Amphetamine Negative [facility] DEPARTMENT screen, urine OF PATHOLOGY AND GENOMIC MEDICINE Barbiturate Negative [facility] DEPARTMENT screen, urine OF PATHOLOGY AND GENOMIC MEDICINE Benzodiazepine Negative [facility] DEPARTMENT screen, urine OF PATHOLOGY AND GENOMIC MEDICINE Cannabinoid Negative [facility] DEPARTMENT screen, urine OF PATHOLOGY AND GENOMIC MEDICINE Cocaine screen, Negative [facility] DEPARTMENT urine OF PATHOLOGY AND GENOMIC MEDICINE Methadone Negative [facility] DEPARTMENT metabolite OF PATHOLOGY (EDDP), urine AND GENOMIC MEDICINE Opiates screen, Positive (A) [facility] DEPARTMENT urine OF PATHOLOGY AND GENOMIC MEDICINE Oxycodone Negative [facility] DEPARTMENT screen, urine OF PATHOLOGY AND GENOMIC MEDICINE Phencyclidine Negative [facility] DEPARTMENT screen, urine OF PATHOLOGY AND GENOMIC MEDICINE Tricyclic Negative [facility] DEPARTMENT screen, urine Comment: OF PATHOLOGY Drug [...] purposes only. Specimen Urine Performing Organization Address [facility] Phone Number [facility] OF [address] [place] [address] PATHOLOGY AND [employer] MEDICINE * Urinalysis, automated with microscopy (02/02/2018 1:41 PM CDT) Color, UA Dark Yellow [facility] DEPARTMENT OF PATHOLOGY AND GENOMIC MEDICINE Appearance, UA Hazy [facility] DEPARTMENT OF PATHOLOGY AND GENOMIC MEDICINE Specific 1.019 1.001 - 1.035 [facility] DEPARTMENT gravity, OF PATHOLOGY AND GENOMIC MEDICINE pH, UA 5.0 5.0 - 8.5 [facility] DEPARTMENT OF PATHOLOGY AND GENOMIC MEDICINE Protein, UA 2+ (A) Negative [facility] DEPARTMENT OF PATHOLOGY AND GENOMIC MEDICINE Glucose, UA Negative Negative [facility] DEPARTMENT OF PATHOLOGY AND GENOMIC MEDICINE Ketones, UA Negative Negative [facility] DEPARTMENT OF PATHOLOGY AND GENOMIC MEDICINE Bilirubin, UA Negative Negative [facility] DEPARTMENT OF PATHOLOGY AND GENOMIC MEDICINE Blood, UA Small (A) Negative [facility] DEPARTMENT OF PATHOLOGY AND GENOMIC MEDICINE Nitrite, UA Negative Negative [facility] DEPARTMENT OF PATHOLOGY AND GENOMIC MEDICINE Urobilinogen, <2.0 <2.0 [facility] UA OF PATHOLOGY AND GENOMIC MEDICINE Leukocyte Moderate (A) Negative [facility] DEPARTMENT esterase, UA OF PATHOLOGY AND GENOMIC MEDICINE Epithelial 3 /HPF [facility] DEPARTMENT cells, UA OF PATHOLOGY AND GENOMIC MEDICINE WBC, UA 85 (H) 0 - 4 /HPF [facility] DEPARTMENT OF PATHOLOGY AND GENOMIC MEDICINE RBC, UA 4 0 - 5 /HPF [facility] DEPARTMENT OF PATHOLOGY AND GENOMIC MEDICINE Bacteria, UA Few None seen [facility] DEPARTMENT OF PATHOLOGY AND GENOMIC MEDICINE Hyaline casts, >20 (A) /LPF [facility] UA OF PATHOLOGY AND GENOMIC MEDICINE Yeast, UA None seen [facility] DEPARTMENT OF PATHOLOGY AND GENOMIC MEDICINE Yeast with None seen [facility] DEPARTMENT pseudohyphae, OF PATHOLOGY UA AND GENOMIC MEDICINE Specimen Urine Performing Organization Address City/State/Zipcode Phone Number [facility] DEPARTMENT OF [address] [place] [address] PATHOLOGY AND GENOMIC MEDICINE * XR Abdomen 1 Vw Portable (01/31/2018 8:11 PM CDT) Specimen Narrative Performed At EXAMINATION:XR ABDOMEN 1 VW PORTABLE [facility] CLINICAL HISTORY:vomiting COMPARISON:None. IMPRESSION: Moderate amount retained stool in colon There is a nonspecific bowel gas pattern. No free air is identified. Gallbladder has been removed [facility]-[id number] Procedure Note Interface, Radiology Results Incoming - 01/31/2018 8:16 PM CDT EXAMINATION: XR ABDOMEN 1 VW PORTABLE CLINICAL HISTORY: vomiting COMPARISON: None. IMPRESSION: Moderate amount retained stool in colon There is a nonspecific bowel gas pattern. No free air is identified. Gallbladder has been removed [facility]-[id number] Performing Organization Address City/State/Zipcode Phone Number [facility] [address] [place] [address] * EEG (routine) (01/31/2018 1:55 PM CDT) [...] at 01/31/2018 12:04 PM who verbalized understanding. [facility]-[id number] Procedure Note Hm Interface, Radiology Results Incoming [...] at 01/31/2018 12:04 PM who verbalized understanding. [facility]-[id number] Performing Organization Address City/[facility]/[place] [address] * Arterial blood gas (01/31/2018 8:23 AM CDT) pH, arterial 7.40 7.35 - 7.45 [facility] DEPARTMENT OF PATHOLOGY AND GENOMIC MEDICINE pCO2, arterial 38 35 - 45 mmHg [facility] DEPARTMENT OF PATHOLOGY AND GENOMIC MEDICINE pO2, arterial 143 (H) 80 - 90 mmHg [facility] DEPARTMENT OF PATHOLOGY AND GENOMIC MEDICINE Bicarbonate, 22.6 21.0 - 28.0 mmol/L [facility] arterial OF PATHOLOGY AND GENOMIC MEDICINE Base excess, -1 -2 - 2 mEq/L [facility] arterial OF PATHOLOGY AND GENOMIC MEDICINE O2 saturation, 100 95 - 100 % [facility] arterial OF PATHOLOGY AND GENOMIC MEDICINE Specimen Blood Performing Organization Address City/[facility] [place] [place] [address] PATHOLOGY AND GENOMIC MEDICINE * Manual differential (01/31/2018 8:22 AM CDT) Manual PERFORMED [facility] DEPARTMENT differential OF PATHOLOGY AND GENOMIC MEDICINE Neutrophils 90.0 (H) 39.0 - 69.0 % [facility] DEPARTMENT OF PATHOLOGY AND GENOMIC MEDICINE Lymphocytes 7.0 (L) 25.0 - 45.0 % [facility] DEPARTMENT OF PATHOLOGY AND GENOMIC MEDICINE Monocytes 1.0 0.0 - 10.0 % [facility] DEPARTMENT OF PATHOLOGY AND GENOMIC MEDICINE Eosinophils 2.0 0.0 - 5.0 % [facility] DEPARTMENT OF PATHOLOGY AND GENOMIC MEDICINE Basophils 0.0 0.0 - 1.0 % [facility] DEPARTMENT OF PATHOLOGY AND GENOMIC MEDICINE Metamyelocytes 0 % [facility] DEPARTMENT OF PATHOLOGY AND GENOMIC MEDICINE Promyelocytes 0 % [facility] DEPARTMENT OF PATHOLOGY AND GENOMIC MEDICINE Platelet slide Kenia slt decr [facility] DEPARTMENT review OF PATHOLOGY AND GENOMIC MEDICINE Anisocytosis Moderate [facility] DEPARTMENT OF PATHOLOGY AND GENOMIC MEDICINE Polychromasia Moderate [facility] DEPARTMENT OF PATHOLOGY AND GENOMIC MEDICINE Ovalocytes Moderate [facility] DEPARTMENT OF PATHOLOGY AND GENOMIC MEDICINE Enlarged Moderate (A) [facility] DEPARTMENT platelets OF PATHOLOGY AND GENOMIC MEDICINE Specimen Narrative Performed At [facility] and reab back to Ophelia Quevedo at 01/31/18 08:59 by [email or web address] [facility] DEPARTMENT OF PATHOLOGY AND GENOMIC MEDICINE Performing Organization Address City/[facility]/Zipcode Phone Number [facility] DEPARTMENT OF [address] [place] [address] PATHOLOGY AND GENOMIC MEDICINE * Lactic acid level (01/31/2018 8:22 AM CDT) Only the most recent of 2 results within the time period is included. Lactic acid 1.2 0.5 - 2.2 mmol/L [facility] DEPARTMENT OF PATHOLOGY AND GENOMIC MEDICINE Specimen Blood Performing Organization Address City/[facility]/Zipcode Phone Number [facility] DEPARTMENT OF [address] [place] [address] PATHOLOGY AND GENOMIC MEDICINE * EEG (routine) [...] 10:05 AM CDT) Specimen Narrative Performed At [facility] Echocardiography Report [address] [facility] [address] [address] Pat.Name:SONAM BERMEO Rosario.ID:[id number] .Date: 01/29/2018Refer.MD:REIGNALD FIGUEROA MD Exam Time: 9:20:00 AMStudy Type:Routine Echo Height:63inWeight:148lb BSA: 1.7 t2YEDUch:1985,32Y Sex: FEMALEBP:140/97 HR:101 bpm Sonogrphr: Dale Issa RDCS Pat. Stat.:Inpatient Room:0 1003A Study Status:Final Echo Event ID:[id number] Order ID:[id number] Reason for Study:Stroke History / Clinical:Congestive Heart [...] RAPof 10 mmHg. MEASUREMENTS: 2D Parasternal [place] LVOT 1.9 cmLA Ds3.1 cm LVIDd4.9 cmIndex2.9 [...] 4.8 cm EF Biplane HR 103 bpm HAV119.4 ml CO 2.5 l/min SV49.1 ml HCP512.6 mlEF29.5 % DOPPLER LVOT Stroke Vol LVOT 1.9 cmLVOT CO3 l/min LVOT TVI10.4 cmLVOT CI1.8 l/m/m2 LVOT Tm254 msecHR 103 bpm LVOT SV 29.5 ml MA For Flow/Valve Assess MA TVI 141.6 cm Signed 01/30/2018 12:21 AM Santana Redding M.D. Procedure Note Interface, Radiology Results In - 01/30/2018 12:21 AM CDT Echocardiography Report [address] [place] [address] Pat.Name: SONAM BERMEO Pat.ID: [id number] .Date: 01/29/2018 Refer.MD: REGINALD FIGUEROA MD Exam Time: 9:20:00 AM Study Type:Routine Echo Height: 63in Weight: 148lb BSA: 1.7 m2 Age: 9 1985,32Y Sex: FEMALE BP: 140/97 HR: 101 bpm Sonogrphr: Dale Issa RDCS Pat. Stat.:Inpatient Room: [address] Study Status:Final Echo Event ID:[id number] Order ID: [id number] Reason for Study:Stroke History / Clinical:Congestive Heart [...] of 10 mmHg. MEASUREMENTS: 2D Parasternal [place] LVOT 1.9 cm LA Ds 3.1 cm [...] AM Santana Redding M.D. Performing Organization Address City/State/[facility] Phone Number [facility] [address] [place] [address] * CTA Neck W Wo Contrast (01/28/2018 [...] no significant carotid or vertebral artery stenosis. [facility]-[id number] Procedure Note Interface, Radiology Results Incoming - [...] no significant carotid or vertebral artery stenosis. [facility]-[id number] Performing Organization Address City/State/Zipcode Phone Number [facility] [address] [place] [address] * Lipid panel (01/28/2018 6:47 PM CDT) Cholesterol 117 <200 mg/dL [facility] DEPARTMENT OF PATHOLOGY AND GENOMIC MEDICINE Triglycerides 92 <150 mg/dL [facility] DEPARTMENT OF PATHOLOGY AND GENOMIC MEDICINE HDL cholesterol 50 >40 mg/dL [facility] DEPARTMENT OF PATHOLOGY AND GENOMIC MEDICINE LDL cholesterol 64Comment: Result obtained by <100 mg/dL [facility] DEPARTMENT direct LDL measurement OF PATHOLOGY AND GENOMIC MEDICINE Lipid panel SeeBelow [facility] DEPARTMENT interpretation Comment: OF PATHOLOGY Total Cholesterol [...] specimen Performing Organization Address City/State/Zipcode Phone Number [facility] DEPARTMENT OF [address] [place] [address] PATHOLOGY AND GENOMIC MEDICINE * CT Upper [...] humeral head suspicious for extension of osteomyelitis. [facility]-[id number] Procedure Note Hm Interface, Radiology Results Incoming [...] humeral head suspicious for extension of osteomyelitis. [facility]-[id number] Performing Organization Address City/State/Zipcode Phone Number [facility] [address] [place] [address] * CTA Head W Wo Contrast (01/28/2018 [...] aneurysmal dilatation or vascular malformation of the [place]. The major dural sinuses are opacified normally. There are no gross brain parenchymal abnormalities. There is no midline shift, hydrocephalus or extra-axial fluid collection. Soft tissue shows no evidence of laceration or hematoma. There is no air-fluid level in the sinuses. Osseous calvarium is intact. IMPRESSION: 1.No hemodynamically significant narrowing of the [place] vessels. [facility]-[id number] Procedure Note Interface, Radiology Results Incoming - [...] aneurysmal dilatation or vascular malformation of the [place]. The major dural sinuses are opacified normally. There are no gross brain parenchymal abnormalities. There is no midline shift, hydrocephalus or extra-axial fluid collection. Soft tissue shows no evidence of laceration or hematoma. There is no air-fluid level in the sinuses. Osseous calvarium is intact. IMPRESSION: 1. No hemodynamically significant narrowing of the [place] vessels. [facility]-[id number] Performing Organization Address City/State/Zipcode Phone Number [facility] [address] [place] [address] * CT Chest Wo Contrast (01/28/2018 4:55 PM CDT) Specimen Narrative Performed At [facility]AMIN[facility] CHEST WO CONTRAST CLINICAL HISTORY: sob [...] is enlarged. 5.Left proximal humeral fracture reidentified. [facility]-[id number] Procedure Note [facility], Radiology Results [facility] - 01/28/2018 5:13 PM CDT EXAMINATION: CT [...] enlarged. 5. Left proximal humeral fracture reidentified. [facility]-[id number] Performing Organization Address City/State/Zipcode Phone Number [facility] [address] [place] [address] * Keppra (Levetiracetam) level (01/28/2018 8:00 AM CDT) Pathologist [facility] Levetiracetam 16 12 - 46 ug/mL [facility] Comment: INTERPRETIVE INFORMATION: Keppra (Levetiracetam) Therapeutic Range:12-46 ug/mL Toxic: Not well Established Pharmacokinetics of levetiracetam are affected by renal function. Adverse effects may include somnolence, weakness, headache and vomiting. This levetiracetam (Keppra) immunoassay uses the [employer] reagents, which has known cross-reactivity with the drug brivaracetam (Briviact) and may report inaccurate results. Patients transitioning from levetiracetam to brivaracetam or those who are using both medications should not monitor drug concentrations with the [employer] assay. These patients should be monitored using a validated chromatographic methodology that distinguishes between drugs to determine drug concentrations. Performed by [facility], [address] [place] [id number] [email or web address], Boby Brito MD - Lab. Director Specimen Serum Performing Organization Address [facility] Phone Number [employer] [address] [place] [address] * Transfuse RBC (01/27/2018 9:20 PM CDT) Only the most recent of 5 results within the time period is included. * Hepatitis B surface antigen (01/27/2018 6:20 PM CDT) Only the most recent of 2 results within the time period is included. Pathologist [facility] Hepatitis B Non-reactive Non-reactive [facility] DEPARTMENT surface Ag OF PATHOLOGY AND GENOMIC MEDICINE Specimen Blood Performing Organization Address City/[facility]/Zipcode Phone Number [facility] DEPARTMENT OF [address] [place] [address] PATHOLOGY AND GENOMIC MEDICINE * Pv duplex venous upper extremity (01/27/2018 2:47 PM CDT) Only the most recent of 2 results within the time period is included. Specimen Narrative Performed At [facility] Upper Extremity Venous Report [address] [facility] [address], [place] [address] Pat.Name:SONAM BERMEO Pat.ID:[id number] .Date: 01/27/2018Refer.MD:REGINALD FIGUEROA MD Exam Time: 2:29:00 PMStudy Type:UE Venous DOBAge:1985,32Y Sex: FEMALE Sonogrphr: KATHY Robertson RCS Pat. Stat.:Inpatient Room:[place] [address] TapeVol: PATRICIA CPT - 4: 67351 Echo Event ID:[id number] Order ID:[id number] Reason for Study:Left arm swelling and pain, [...] [facility] Upper Extremity Venous Report [address] [place] [address] Pat.Name: SONAM BERMEO Pat.ID: [id number] .Date: 01/27/2018 Refer.MD: REGINALD FIGUEROA MD Exam Time: 2:29:00 PM Study Type:UE Venous Age: 9 1985,32Y Sex: FEMALE Sonogrphr: KATHY Robertson, NOEMY Pat. Stat.:Inpatient Room: [place] [address] Tape Vol: PATRICIA CPT - 4: 07878 Echo Event ID:[id number] Order ID: [id number] Reason for Study:Left arm swelling and pain, [...] RPVI Performing Organization Address City/State/Zipcode Phone Number [facility] [address] [place] [address] * Pv carotid duplex (01/27/2018 2:28 PM CDT) Specimen Narrative Performed At [facility] Vascular Ultrasound Laboratory Carotid Artery Duplex Report [address] [place] [address] For quality control associate purposes, the categorization of the degree of the stenosis of this exam is based on criteria described in the IAC carotid stenosis grading white paper( www.intersocietal.org/Vascular) and Neli Kilgore., Yoan Cruz., et al. Carotid artery stenosis: murillo-scale and Doppler US diagnosis--Society of Radiologists in Ultrasound Consensus Conference. Radiology. 2003 Nov; 229(2):340-6. Pat.Name:SONAM BERMEO Rosario.ID:[id number] .Date: 01/27/2018Refer.MD:REGINALD FIGUEROA MD Exam Time: 2:12:00 PMStudy Type:Carotid DOBAge:1985,32Y Sex: FEMALE Sonogrphr: Nicholas Reynoso, KATHY, NOEMY Pat. Stat.:Inpatient Room:[place] [id number] A TapeVol: PATRICIA, CPT - 4: 56138 Echo Event ID:[id number] Order ID:[id number] Reason for Study:Concern for clot, patient had [...] [facility] Carotid Artery Duplex Report [address] [place] [address] For quality control associate purposes, the categorization of the degree of the stenosis of this exam is based on criteria described in the IAC carotid stenosis grading white paper( www.intersocietal.org/Vascular) and Chan Kilgore, Sherif Cruz, et al. Carotid artery stenosis: murillo-scale and Doppler US diagnosis--Society of Radiologists in Ultrasound Consensus Conference. Radiology. 2003 Feb; 229(2):340-6. Pat.Name: SONAM BERMEO [facility].ID: [id number] .Date: 01/27/2018 Refer.MD: REGINALD FIGUEROA MD Exam Time: 2:12:00 PM Study Type:Carotid Age: 9 1985,32Y Sex: FEMALE Sonogrphr: KATHY Robertson RCS Pat. Stat.:Inpatient Room: [address] Vol: PATRICIA, CPT - 4: 43726 Echo Event ID:[id number] Order ID: [id number] Reason for Study:Concern for clot, patient had [...] Caleb Pulliam MD, RPVI Performing Organization Address [facility]/Zipcode Phone Number [facility] [address] [place] [address] * Lactic acid level, SEPSIS - Now and repeat 2x every 3 hours (01/27/2018 6:34 AM CDT) Only the most recent of 2 results within the time period is included. Lactic acid 1.8 0.5 - 2.2 mmol/L [facility] DEPARTMENT OF PATHOLOGY AND GENOMIC MEDICINE Specimen Blood Performing Organization Address City/[facility]/Zipcode Phone Number [facility] DEPARTMENT OF [address] [place] [address] PATHOLOGY AND GENOMIC MEDICINE * Prepare RBC, 1 Units (01/27/2018 3:44 AM CDT) Only the most recent of 2 results within the time period is included. Product name Red Blood Cells -1, Leukored [facility] DEPARTMENT OF PATHOLOGY AND GENOMIC MEDICINE Unit number [id number] [facility] DEPARTMENT OF PATHOLOGY AND GENOMIC MEDICINE Product code [id number] [facility] DEPARTMENT OF PATHOLOGY AND GENOMIC MEDICINE Dispense status Transfused [facility] DEPARTMENT OF PATHOLOGY AND GENOMIC MEDICINE Blood [id number] [facility] DEPARTMENT expiration date OF PATHOLOGY AND GENOMIC MEDICINE Blood type code 5100 [facility] DEPARTMENT OF PATHOLOGY AND GENOMIC MEDICINE Blood type O POSITIVE [facility] DEPARTMENT OF PATHOLOGY AND GENOMIC MEDICINE Specimen Performing Organization Address City/[facility]/Zipcode Phone Number [facility] DEPARTMENT OF [address] [place] [address] PATHOLOGY AND GENOMIC MEDICINE * Type and screen (01/27/2018 3:44 AM CDT) Only the most recent of 2 results within the time period is included. ABO grouping O [facility] DEPARTMENT OF PATHOLOGY AND GENOMIC MEDICINE Rh type POS [facility] DEPARTMENT OF PATHOLOGY AND GENOMIC MEDICINE Antibody screen NEG [facility] DEPARTMENT (gel) OF PATHOLOGY AND GENOMIC MEDICINE Specimen Blood Performing Organization Address City/[facility]/Zipcode Phone Number [facility] DEPARTMENT OF [address] [place] [address] PATHOLOGY AND GENOMIC MEDICINE * XR Abdomen [...] technique. Diffuse osteopenia. No acute osseous abnormalities. [facility]-[id number] Procedure Note Hm Interface, Radiology Results Incoming [...] technique. Diffuse osteopenia. No acute osseous abnormalities. [facility]-[id number] Performing Organization Address City/State/Zipcode Phone Number [facility] [address] [place] [address] * Blood culture, aerobic & anaerobic (01/26/2018 12:50 AM CDT) Blood culture No growth after 5 days of [facility] DEPARTMENT isolate incubation. OF PATHOLOGY Comment: AND GENOMIC Specimen Information MEDICINE Specimen Source: Blood Specimen Site: Other Specimen Blood - Other- Detailed Description Required Performing Organization Address City/State/Zipcode Phone Number [facility] DEPARTMENT OF [address] [place] [address] PATHOLOGY AND GENOMIC MEDICINE * IR Tunneled Dialysis Catheter Replacement/Exchange (01/02/2018 9:37 AM CDT) Specimen Narrative Performed At Procedure: Change of tunneled dialysis catheter [facility] Clinical History: End-stage renal disease. The patient's indwelling catheter is not functioning. Sedation: Versed and fentanyl were utilized for monitored conscious sedation during the procedure. The patient was transferred to the recovery room at the end of the procedure for further monitoring. Dfdr-aq-rwbi time 15 minutes Anesthesia: Local Radiation dose: [...] above. Blood Loss: Less than 1 mL [facility]-[id number] Procedure Note Interface, Radiology Results Incoming - 01/02/2018 9:51 AM CDT Procedure: Change of tunneled dialysis catheter Clinical History: End-stage renal disease. The patient's indwelling catheter is not functioning. Sedation: Versed and fentanyl were utilized for monitored conscious sedation during the procedure. The patient was transferred to the recovery room at the end of the procedure for further monitoring. Gmsi-ud-inga time 15 minutes Anesthesia: Local Radiation dose: [...] above. Blood Loss: Less than 1 mL [facility]-[id number] Performing Organization Address City/[facility] Phone Number [facility] [address] [place] [address] * Vancomycin level, random (01/01/2018 4:38 AM CDT) Only the most recent of 2 results within the time period is included. Vancomycin, SEE COMMENT ug/mL [facility] DEPARTMENT random Comment: OF PATHOLOGY Footnote--------- AND GENOMIC Specimen integrity MEDICINE questionable.Recollect requested for VANCT.APPLE ISO/M3SW notified by KXG at01/01/201806:39 . Specimen Serum Performing Organization Address City/[facility] Phone Number [facility] DEPARTMENT OF [address] [phone] PATHOLOGY AND GENOMIC MEDICINE * Echocardiogram complete w contrast and 3D if needed (12/30/2017 9:36 AM CDT) Specimen Narrative Performed At [facility] Echocardiography Report [address] [address], [place] [address] Pat.Name:SONAM BERMEO Pat.ID:[id number] .Date: 12/30/2017 Refer.MD:JAYDEN JANSEN MD Exam Time: 9:20:00 AMStudy Type:Routine Echo Height:63inBSA: 1.73 m2 DOBAge:1985,32Y Sex: FEMALE BP:111/79HR: 103 bpm Sonogrphr: Aby Castro, RDCS, RVTPat. Stat.:[address] Status:Final Echo Event ID:[id number] Order ID:[id number] Reason for Study:CHF History / Clinical:Congestive Heart [...] RAPof 10 mmHg. MEASUREMENTS: 2D Parasternal [place] LVOT 1.8 cmIVSd 1 cm LA Ds4.4 cmLVPWd0.8 cm Ao Rtd 2.5 cmIndex1.5 cm/m LV Rhxh128 g(87-129) LVIDd5.6 cmIndex3.2 cm/m LVM Zauzv933.4 g/m2 LVIDs5 cmRWT0.3 LV%fs 10.7 % LV EF Biplane AQGZN337.6 ml (59-136) Qnnih101.8 ml/m LV SV 57.6 ml PJDVD714 epRetaq85.5 ml/m LV EF 29 %(55-75) LA Sng [...] - 12/30/2017 2:42 PM CDT Echocardiography Report [address] [address] [facility].Name: SONAM BERMEO Rosario.ID: [id number] .Date: 12/30/2017 Refer.MD: JAYDEN JANSEN MD Exam Time: 9:20:00 AM Study Type:Routine Echo Height: 63in BSA: 1.73 m2 Age: 9 1985,32Y Sex: FEMALE BP: 111/79 HR: 103 bpm Sonogrphr: Aby Castro RDCS, RVT Pat. Stat.:Inpatient Room: [address] Study Status:Final Echo Event ID:[id number] Order ID: [id number] Reason for Study:CHF History / Clinical:Congestive Heart [...] of 10 mmHg. MEASUREMENTS: 2D Parasternal [place] LVOT 1.8 cm IVSd 1 cm LA [...] M.D. Performing Organization Address City/State/Zipcode Phone Number [facility] [address] [place] [address] * Pv duplex venous lower extremity (12/29/2017 2:10 PM CDT) Specimen Narrative Performed At [facility]tras[facility] Lower Extremity Venous Report [address] [id number] Pat.Name:SONAM BERMEO Lili Pat.ID:[id number] .Date: 12/29/2017 Refer.MD:JAYDEN JANSEN MD Exam Time: 1:53:00 PMStudy Type:LE Venous Height:63inWeight:153lb BSA: 1.73 m2 DOBAge:1985,32Y Sex: FEMALESonogrphr: Hugo Bliss RN, S Pat. Stat.:Inpatient Room:[facility] TapeVol: PM, CPT - 4: 88834 Echo Event ID:[id number] Order ID:[id number] Reason for Study:Bilateral leg edema. Procedures:Colorflow, Grayscale/2D, [...] [facility] Lower Extremity Venous Report [address] [address] Pat.Name: SONAM BERMEO Pat.ID: [id number] .Date: 12/29/2017 Refer.MD: JAYDEN JANSEN MD Exam Time: 1:53:00 PM Study Type:LE Venous Height: 63in Weight: 153lb BSA: 1.73 m2 Age: 9 1985,32Y Sex: FEMALE Sonogrphr: Hugo Bliss RN, RVS Pat. Stat.:Inpatient Room: [facility] Tape Vol: PM, CPT - 4: 77110 Echo Event ID:[id number] Order ID: [id number] Reason for Study:Bilateral leg edema. Procedures:Colorflow, Grayscale/2D, [...] Organization Address City/State/Zipcode Phone Number [facility] [address] [place] [address] * XR Shoulder 2+ Vw Left (12/28/2017 [...] Central venous catheter and transthoracic pacemaker present. [facility]-[id number] Procedure Note Interface, Radiology Results Incoming - [...] Central venous catheter and transthoracic pacemaker present. [facility]-[id number] Performing Organization Address [facility]/Zipcode Phone Number [facility] [address] [place] [address] * US Renal (12/28/2017 1:35 PM CDT) Specimen Narrative Performed At EXAMINATION:US RENAL [facility] CLINICAL HISTORY:hydroureter COMPARISON:06/04/2015 IMPRESSION: 1.There is no hydronephrosis. 2.Renal cortical echogenicity is increased suggesting medical renal disease. 3.Right kidney measures 10.2 x 4 x 3.8 cm. 4.Left kidney measures 11.3 x 4.5 x 4.8 cm. 5.Bladder is unremarkable. [facility]-[id number] Procedure Note Interface, Radiology Results Incoming - 12/28/2017 2:43 PM CDT EXAMINATION: US RENAL CLINICAL HISTORY: hydroureter COMPARISON: 06/04/2015 IMPRESSION: 1. There is no hydronephrosis. 2. Renal cortical echogenicity is increased suggesting medical renal disease. 3. Right kidney measures 10.2 x 4 x 3.8 cm. 4. Left kidney measures 11.3 x 4.5 x 4.8 cm. 5. Bladder is unremarkable. [facility]-[id number] Performing Organization Address City/[facility]/Zipcode Phone Number [facility] [address] [place] [address] * Hemoglobin A1c (12/28/2017 5:00 AM CDT) Hemoglobin A1C 6.8 (H) 4.0 - 5.6 % [facility] DEPARTMENT Comment: OF PATHOLOGY HbA1c cutoffs for [...] Blood Performing Organization Address City/State/Zipcode Phone Number [facility] DEPARTMENT OF [address] [place] [address] PATHOLOGY AND GENOMIC MEDICINE * CT Abdomen [...] shift/edema. Correlation to exclude colitis is advised. [facility]-[id number] Procedure Note Hm Interface, Radiology Results Incoming [...] shift/edema. Correlation to exclude colitis is advised. [facility]-[id number] Performing Organization Address City/State/Zipcode Phone Number [facility] [address] [place] [address] * Urinalysis screen and microscopy, with reflex to culture (12/28/2017 3:30 AM CDT) Specimen site Clean catch [facility] DEPARTMENT OF PATHOLOGY AND GENOMIC MEDICINE Color, UA Yellow [facility] DEPARTMENT OF PATHOLOGY AND GENOMIC MEDICINE Appearance, UA Hazy [facility] DEPARTMENT OF PATHOLOGY AND GENOMIC MEDICINE Specific 1.017 1.001 - 1.035 [facility] DEPARTMENT gravity, UA OF PATHOLOGY AND GENOMIC MEDICINE pH, UA 6.0 5.0 - 8.5 [facility] DEPARTMENT OF PATHOLOGY AND GENOMIC MEDICINE Protein, UA 3+ (A) Negative [facility] DEPARTMENT OF PATHOLOGY AND GENOMIC MEDICINE Glucose, UA Negative Negative [facility] DEPARTMENT OF PATHOLOGY AND GENOMIC MEDICINE Ketones, UA Negative Negative [facility] DEPARTMENT OF PATHOLOGY AND GENOMIC MEDICINE Bilirubin, UA Positive@UBIL (A) Negative [facility] DEPARTMENT OF PATHOLOGY AND GENOMIC MEDICINE Blood, UA Small (A) Negative [facility] DEPARTMENT OF PATHOLOGY AND GENOMIC MEDICINE Nitrite, UA Negative Negative [facility] DEPARTMENT OF PATHOLOGY AND GENOMIC MEDICINE Urobilinogen, <2.0 <2.0 [facility] DEPARTMENT UA OF PATHOLOGY AND GENOMIC MEDICINE Leukocyte Moderate (A) Negative [facility] DEPARTMENT esterase, UA OF PATHOLOGY AND GENOMIC MEDICINE Epithelial 1 /HPF [facility] DEPARTMENT cells, UA OF PATHOLOGY AND GENOMIC MEDICINE WBC, UA 129 (H) 0 - 4 /HPF [facility] DEPARTMENT OF PATHOLOGY AND GENOMIC MEDICINE RBC, UA 15 (H) 0 - 5 /HPF [facility] DEPARTMENT OF PATHOLOGY AND GENOMIC MEDICINE Bacteria, UA None seen None seen [facility] DEPARTMENT OF PATHOLOGY AND GENOMIC MEDICINE Yeast, UA Many (A) [facility] DEPARTMENT OF PATHOLOGY AND GENOMIC MEDICINE Yeast with None seen [facility] DEPARTMENT pseudohyphae, OF PATHOLOGY UA AND GENOMIC MEDICINE Hyaline casts, 18 /LPF [facility] UA OF PATHOLOGY AND GENOMIC MEDICINE Specimen Urine Performing Organization Address City/[facility]/Zipcode Phone Number [facility] DEPARTMENT OF [address] [place] [address] PATHOLOGY AND GENOMIC MEDICINE * Gram stain (12/28/2017 3:30 AM CDT) Gram stain Rare WBC's [facility] DEPARTMENT result Rare Budding yeast OF PATHOLOGY Comment: AND GENOMIC Specimen Information MEDICINE Specimen Source: Urine Specimen Site: Clean catch Specimen Urine Performing Organization Address City/[facility]/Zipcode Phone Number [facility] DEPARTMENT OF [address] [place] [address] PATHOLOGY AND GENOMIC MEDICINE * Urine culture (12/28/2017 3:30 AM CDT) Urine culture Marleen glabrata [facility] DEPARTMENT isolate >10-5 cfu/ml OF PATHOLOGY The performance AND GENOMIC characteristics of this assay MEDICINE on this isolate were validated by the Microbiology Laboratory at [facility].This source has not been approved by the U.S. Food and Drug Administration.The results are not intended to be used as the sole means for clinical diagnosis or patient management.The Microbiology Laboratory is authorized under the clinical Laboratory Improvement Amendments of 1988 (CLIA-88) to perform high complexity testing. (A) Comment: Specimen Information Specimen Source: Urine Specimen Site: Clean catch Urine culture Gram positive betsy [facility] DEPARTMENT isolate 10-2 cfu/ml OF PATHOLOGY (A) AND GENOMIC MEDICINE Specimen Urine Antibiotic Method Susceptibility Organism Micafungin BP 0.016 mcg/mL: Susceptible Marleen glabrata Amphotericin B BP 1 mcg/mL: Susceptible Amrleen glabrata Posiconazole BP 1 mcg/mL Marleen glabrata Itraconazole BP 1.0 mcg/mL: Resistant Marleen glabrata Fluconazole BP 32 mcg/mL: Susceptible Marleen glabrata Performing Organization Address City/State/Zipcode Phone Number [facility] DEPARTMENT OF [address] [place] [phone] PATHOLOGY AND GENOMIC MEDICINE after 2017 Insurance Type Payer Benefit Subscriber ID Effective Phone Address Plan / Dates Group O GRISEL RECINOS xxxxxxxxx 2016-P [facility] [employer] [facility] Advance Directives Patient has advance care planning documents, and code status on file. For more i nformation, please contact: Pavel Roberts [address] [place] [phone] Date Inactivated Comments Code Status Date Activated 02/18/2018 8:23 PM Full Code 02/08/2018 4:32 PM Code Status decision reached by: Patient
--- OUTSIDE RECORDS SUMMARY | 2018-11-12 02:18 | XMS REPORT | Clinical Summary ---
Author Author KALYAN [facility] Address Unknown Phone Unavailable Care Team Providers Care Cardiology Consultant Name Role Phone LonnyGer Jacqueline PCP Allergies [...] Active B complex Take 1 tablet 0 53-imybd-H-biot-zinc by mouth (DIALYVITE) [id number] daily. un-tn-hrf-mg Tab 01/14/2019 Active phenytoin (DILANTIN) 100 Take [...] Take 5 mg by 60 tablet 0 mouth 2 (two) 8 times [...] Encounters Care Team Description Date Type Specialty Eriberto Ferro Kidney Transplant Pre-evaluation 11/07/2018 Telephone Eriberto Rushing 11/07/2018 Telephone Transplant Eriberto Ferro 10/24/2018 Abstract Transplant Eirberto Ferro Kidney Transplant Pre-evaluation 10/24/2018 Telephone Transplant Eriberto Ferro 10/24/2018 Abstract Transplant Domenica Rojo MD 01/09/2018 Anesthesia Event Virtual, Surgeon PROCEDURE DONE OUTSIDE OR 01/09/2018 [facility] Ahmed, Shamoon, MD Siddiqui, Angela Oliva MD Edema, unspecified type (Primary Dx); ESRD on hemodialysis (HCC); Postoperative wound infection, subsequent encounter; Chest pain, unspecified type; Chronic pain due to trauma; Surgical site infection 01/03/2018 Hospital Cardiology - Encounter 01/23/2018 01/03/2018 Orders Only General Internal Medicine after 2017 Social History Date Tobacco Use Types Packs/Day [...] 7:39 PM CDT Inhaled Oxygen 21% Concentration 10/24/2018 1:21 PM CDT Weight 56.2 kg (124 lb) 10/24/2018 1:21 PM CDT Height 160 cm (5' 3") 10/24/2018 1:21 PM CDT Body Mass Index 21.97 Plan of Treatment Care Team Description Date Type Specialty 12/09/2018 Office Visit Transplant 12/09/2018 Orders Only Transplant Hepatology Procedures Comments Procedure Name Priority Date/Time Associated [...] ms QTC Calculatio n(Bazett) 452 ms P [place] 61 degrees R [place] 27 degrees T [place] 106 degrees Sinus tachycardi a Nonspecifi c [...] ms QTC Calculatio n(Bazett) 437 ms P [place] 53 degrees R [place] 0 degrees T [place] 174 degrees Sinus tachycardi a with Fusion [...] 12-LEAD STAT 01/03/2018 12:48 AM CDT after 2017 Results * ARRYTHMIA IMPLANT REPORT - SCAN (01/24/2018 1:40 PM CDT) Narrative Performed At * RHYTHM STRIP - SCAN (01/24/2018 1:40 PM CDT) Narrative Performed At * POC-Glucose meter (01/23/2018 9:24 AM CDT) Only the most recent of 67 results within the time period is included. POC-Glucose Meter 135 (H)Comment: TESTED AT 70 - 110 mg/dL [facility]SC [address] [facility] [address] Specimen Blood Performing Organization Address City/State/Zipcode Phone Number [facility] [address] [place] [address] [facility] * HEMODIALYSIS INPATIENT (01/22/2018 5:54 PM CDT) [...] (01/21/2018 6:41 AM CDT) Result No growth [facility] Gram Stain Result 4+ WBCs [facility] Gram Stain Result No organisms seen [facility] Specimen Wound Performing Organization Address City/State/Zipcode Phone Number [facility] [address] [place] [address] MEDICAL CENTER * IR Tunneled Catheter Insertion (01/20/2018 1:02 PM CDT) Only the most recent of 2 results within the time period is included. Specimen Narrative Performed At FINAL REPORT [facility] Tunneled dialysis catheter exchange, partial today History: Renal failure. Nonfunctioning hemodialysis catheter. Unable to aspirate from the right portal Modality: Sonography and fluoroscopy. Sedation: Versed 1.0 mg and fentanyl 50 mcg was given intravenously for conscious sedation.Vital signs were monitored throughout the procedure by a nurse, and remained stable. Physician intra-service time was 20 minutes. Algebra Teacher:Kayla. Glass Lined Tank Repairer: Nadia Inman MD. Approach: Right chest tunneled [...] new 19 cm cuff to tip 15.5 [place] Duraflow two catheter was then advanced over [...] MD Report Verified Date/Time:01/20/2018 17:29:46 Reading Location: [place] [address] Angio Body Reading Room Procedure Note Interface, [...] stable. Physician intra-service time was 20 minutes. Algebra Teacher: Kayla. Glass Lined Tank Repairer: Nadia Inman MD. Approach: Right chest tunneled [...] new 19 cm cuff to tip 15.5 [place] Duraflow two catheter was then advanced over [...] Report Verified Date/Time: 01/20/2018 17:29:46 Reading Location: [facility] P048 Angio Body Reading Room Performing Organization Address City/State/Zipcode Phone Number [facility] * PT/aPTT (01/20/2018 5:26 AM CDT) Only the most recent of 5 results within the time period is included. Protime 17.8 (H) 11.7 - 14.7 seconds [facility] INR 1.5 <=5.9 [facility] PTT 36.8 (H) 22.5 - 36.0 seconds [facility] Specimen Blood Narrative Performed At RECOMMENDED COUMADIN/WARFARIN INR THERAPY RANGES [facility] STANDARD DOSE: 2.0 - 3.0 Includes: PROPHYLAXIS for venous thrombosis, [facility] systemic embolization; TREATMENT for venous thrombosis and/or pulmonary embolus. HIGH RISK: Target INR is 2.5-3.5 for patients with mechanical heart valves. Performing Organization Address City/State/Zipcode Phone Number [facility] [address] [place] [address] MEDICAL [facility]ENTER * CBC with platelet count + automated diff (01/20/2018 5:26 AM CDT) Only the most recent of 16 results within the time period is included. WBC 4.6 3.5 - 10.5 K/L [facility] RBC 3.04 (L) 3.93 - 5.22 M/L [facility] Hemoglobin 8.4 (L) 11.2 - 15.7 GM/DL [facility] Hematocrit 28.9 (L) 34.1 - 44.9 % [facility] MCV 95.1 (H) 79.4 - 94.8 fL [facility] MCH 27.6 25.6 - 32.2 pg [facility] MCHC 29.1 (L) 32.2 - 35.5 GM/DL [facility] RDW 17.8 (H) 11.7 - 14.4 % [facility] Platelets 169 150 - 450 K/CU MM [facility] MPV 10.8 9.4 - 12.3 fL [facility] nRBC 0 0 - 0 /100 WBC [facility] % Neutros 77 % [facility] % Lymphs 16 % [facility] % Monos 3 % [facility] % Eos 2 % [facility] % Baso 1 % [facility] # Neutros 3.51 1.56 - 6.13 K/L [facility] # Lymphs 0.75 (L) 1.18 - 3.74 K/L [facility] # Monos 0.13 (L) 0.24 - 0.36 K/L [facility] # Eos 0.11 0.04 - 0.36 K/L [facility] # Baso 0.03 0.01 - 0.08 K/L [facility] Immature 1 0 - 1 % [facility] Granulocytes-Relative [facility] Specimen Blood Performing Organization Address City/[facility] Phone Number [address] * Vancomycin level, random (01/20/2018 5:26 AM CDT) Only the most recent of 4 results within the time period is included. Vancomycin Rm 19.5 ug/mL [facility] Specimen Blood Narrative Performed At Reference Range: No Normals [facility] Performing Organization Address City/[facility] Phone Number [address] * TRANSFUSION SERVICE REPORT - SCAN (01/18/2018 6:00 PM CDT) Only the most recent of 2 results within the time period is included. Narrative Performed At * Phosphorus (01/18/2018 9:35 AM CDT) Phosphorus 2.4 2.3 - 4.7 mg/dL [facility] Specimen Blood Performing Organization Address City/[facility]/[place] [address] [facility] * Magnesium (01/18/2018 9:35 AM CDT) Only the most recent of 2 results within the time period is included. Magnesium 1.7 1.6 - 2.6 mg/dL [facility] Specimen Blood Performing Organization Address City/State/Zipcode Phone Number [facility] [address] [place] [address] [facility] * Basic metabolic panel (01/18/2018 9:35 AM CDT) Only the most recent of 16 results within the time period is included. Sodium 135 (L) 136 - 145 meq/L [facility] Potassium 3.2 (L) 3.5 - 5.1 meq/L [facility] Chloride 99 98 - 107 meq/L [facility] CO2 29 22 - 29 meq/L [facility] BUN 13 7 - 21 mg/dL [facility] Creatinine 2.07 (H) 0.57 - 1.25 mg/dL [facility] Glucose 135 (H) 70 - 105 mg/dL [facility] Calcium 7.8 (L) 8.4 - 10.2 mg/dL [facility] EGFR 34Comment: ESTIMATED GFR IS mL/min/1.73 sq m [facility] NOT ACCURATE CREATININE [facility] CLEARANCE IN PREDICTING GLOMERULAR FILTRATION RATE. ESTIMATED GFR IS NOT APPLICABLE FOR DIALYSIS PATIENTS. Specimen Blood Performing Organization Address [facility] Phone Number [facility] [address] [place] [address] [facility] * Prepare Leuko-Red & Irrad RBC (01/17/2018 11:54 PM CDT) CROSSMATCH COMPATIBLE SAFETRACE TX Unit ABO O Pos SAFETRACE TX UNIT NUMBER [id number] SAFETRACE TX Status TRANSFUSED SAFETRACE TX Blood Bank Product RED BLOOD CELLS SAFETRACE TX PRODUCT CODE [id number] SAFETRACE [place] Specimen Other Performing Organization Address City/[facility] Phone Number [place] * CT upper extremity with contrast right (01/17/2018 9:24 PM CDT) Specimen Narrative Performed At FINAL REPORT [facility] CT, EXTREMITY, UPPER, WITH CONTRAST, RIGHT, [...] MD Report Verified Date/Time:01/17/2018 22:06:08 Reading Location: [facility] C013T Transitional Reading Room Procedure Note Interface, [...] Report Verified Date/Time: 01/17/2018 22:06:08 Reading Location: [facility] B1 C013T Transitional Reading Room Performing Organization Address City/State/Zipcode Phone Number [facility] * CT upper extremity with contrast left (01/17/2018 9:24 PM CDT) Specimen Narrative Performed At FINAL REPORT [facility] CT, EXTREMITY, UPPER, WITH CONTRAST, RIGHT, CT, [...] MD Report Verified Date/Time:01/17/2018 22:06:08 Reading Location: [address] Transitional Reading Room Procedure Note Interface, [...] Report Verified Date/Time: 01/17/2018 22:06:08 Reading Location: [address] Transitional Reading Room Performing Organization Address City/State/Zipcode Phone Number [facility] * CT chest without IV contrast (01/16/2018 11:42 PM CDT) Specimen Narrative Performed At FINAL REPORT [facility] CT, CHEST, WITHOUT CONTRAST INDICATION: Chest pain [...] MD Report Verified Date/Time:01/16/2018 23:55:03 Reading Location: [address] Reading Room Procedure Note Interface, External [...] Report Verified Date/Time: 01/16/2018 23:55:03 Reading Location: [address] Reading Room Performing Organization Address City/State/Zipcode Phone Number [facility] * Transfuse Leuko-Red & Irrad RBC (01/16/2018 3:05 PM CDT) Only the most recent of 2 results within the time period is included. * Type and screen, automated (01/16/2018 12:17 PM CDT) ABO/RH AUTOMATED (BEAKER) O POSITIVE [facility] Ab Scrn NEGATIVE [facility] Specimen Blood Performing Organization Address City/State/Zipcode Phone Number [facility] [address] [place] [address] [facility] * CBC (Hemogram only) (01/16/2018 4:01 AM CDT) WBC 3.7 3.5 - 10.5 K/L [facility] RBC 2.49 (L) 3.93 - 5.22 M/L [facility] Hemoglobin 6.9 (L) 11.2 - 15.7 GM/DL [facility] Hematocrit 24.0 (L) 34.1 - 44.9 % [facility] MCV 96.4 (H) 79.4 - 94.8 fL [facility] MCH 27.7 25.6 - 32.2 pg [facility] MCHC 28.8 (L) 32.2 - 35.5 GM/DL [facility] RDW 18.7 (H) 11.7 - 14.4 % [facility] Platelets 152 150 - 450 K/CU MM [facility] MPV 10.8 9.4 - 12.3 fL [facility] nRBC 0 0 - 0 /100 WBC [facility] Specimen Blood Performing Organization Address City/State/Zipcode Phone Number [facility] [address] [place] [address] MEDICAL CENTER * XR chest [...] MD Report Verified Date/Time:01/14/2018 22:17:24 Reading Location: [facility] Mammo Reading Room Procedure Note Interface, External Ris [...] Report Verified Date/Time: 01/14/2018 22:17:24 Reading Location: [facility] Mammo Reading Room Performing Organization Address City/State/Zipcode Phone Number [facility] * Clostridium difficile [facility] Toxin (01/14/2018 2:05 AM CDT) C. Difficle Toxin Negative Negative [facility] C. Difficile [facility] Antigen Positive (A)Comment: C. Negative [facility] difficile present but toxin [facility] not detected. Indicates colonization with non-toxigenic strain or level of toxin below detectable levels. No need for enteric isolation. Treatment is rarely needed (only when strong clinical suspicion for Clostridium difficile infection) Specimen Stool Narrative Performed At Testing performed by [employer]X Rapid Cassette Assay.For [facility], published [facility] sensitivity of the assay is 98.7% compared to cytotoxicity testing.For Toxin [facility] AB, published sensitivity is 87.8% and specificity 99.4% compared to cytotoxicity testing. Verification of kit performance was done by the [facility] Microbiology Lab prior to clinical use. Performing Organization Address [facility] Phone Number [facility] [address] [place] [address] MEDICAL CENTER * HEMODIALYSIS INPATIENT (01/13/2018 12:44 [...] CDT) TSH 3.42 0.35 - 4.94 uIU/mL [facility] Specimen Blood Performing Organization Address City/State/Zipcode Phone Number [facility] [address] [place] [address] [facility] * CT brain without IV contrast (01/11/2018 12:53 PM CDT) Specimen Narrative Performed At FINAL REPORT [facility] CT head without contrast 01/11/2018 1:34 [...] MD Report Verified Date/Time:01/11/2018 13:35:22 Reading Location: [address] Ortho Consult Reading Room Procedure Note [...] Report Verified Date/Time: 01/11/2018 13:35:22 Reading Location: [facility] B1 C013X Ortho Consult Reading Room Performing Organization Address City/State/[facility] Phone Number [facility] * Hemoglobin and hematocrit (01/10/2018 6:15 PM CDT) Hemoglobin 8.4 (L) 11.2 - 15.7 GM/DL [facility] Hematocrit 28.5 (L) 34.1 - 44.9 % [facility] Specimen Blood Performing Organization Address City/[facility] Phone Number [facility] [address] [place] [address] [facility] * Vancomycin level, trough (01/10/2018 3:09 PM CDT) Vancomycin Tr 12.4 10.0 - 20.0 ug/mL [facility] Specimen Blood Narrative Performed At Send after dialysis please [facility] Performing Organization Address City/[facility] Phone Number [facility] [address] [place] [address] [facility] * ECG 12 lead (01/10/2018 7:31 AM CDT) Only the most recent of 2 results within the time period is included. Specimen Narrative Performed At Ventricular Rate 123 BPM [facility] Atrial Rate 123 BPM P-R Interval 164 ms QRS Duration 88 ms Q-T Interval 316 ms QTC Calculation(Bazett) 452 ms P [place] 61 degrees R [place] 27 degrees T [place] 106 degrees Sinus tachycardia Nonspecific T wave [...] 316 ms QTC Calculation(Bazett) 452 ms P [place] 61 degrees R [place] 27 degrees T [place] 106 degrees Sinus tachycardia Nonspecific T wave abnormality Prolonged QT Abnormal ECG When compared with ECG of 03-JAN-2018 00:48, Fusion complexes are no longer Present Confirmed by Charlene KELLOGG BASANT ([id number]) on 01/12/2018 8:44:48 PM Performing Organization Address City/State/[facility] Phone Number [employer] [facility] * XR chest 1 view portable / bedside (01/10/2018 5:28 AM CDT) Only the most recent of 2 results within the time period is included. Specimen Narrative Performed At FINAL REPORT [facility] Chest one view. Clinical history: SOB post [...] MD Report Verified Date/Time:01/10/2018 06:32:36 Reading Location: [address] Body Reading Room Procedure Note [...] Report Verified Date/Time: 01/10/2018 06:32:36 Reading Location: [facility] C013Y CT Body Reading Room Performing Organization Address City/State/[facility] Phone Number [facility] * C-Reactive Protein (01/10/2018 4:34 AM CDT) Only the most recent of 2 results within the time period is included. CRP 2.35 (H) 0.00 - 0.50 mg/dL [facility] Specimen Blood Performing Organization Address [facility] Phone Number [facility] [address] [place] [address] [phone] [place] [address] * Lactic acid, venous, whole blood (01/10/2018 4:23 AM CDT) Lactate, Venous 2.7 (H) 0.5 - 2.2 mmol/L [facility] Specimen Blood Narrative Performed At Effective 08/17/2015: Units/Reference Range Change [facility] New: 0.5-2.2 mmol/LPrevious: 5-20 mg/dL [facility] Performing Organization Address [facility] [place] [place] [address] [phone] [place] [address] * IR Tunneled Catheter Exchange (01/09/2018 5:40 PM CDT) Specimen Narrative Performed At FINAL REPORT [facility] Procedure: Removal replaced damage right internal [...] MD Report Verified Date/Time:01/09/2018 19:06:03 Reading Location: [place] [address] Angio Body Reading Room Procedure Note Interface, [...] Report Verified Date/Time: 01/09/2018 19:06:03 Reading Location: [place] [address] Angio Body Reading Room Performing Organization Address City/State/Zipcode Phone Number [facility] * hCG, quantitative, (01/09/2018 4:08 AM CDT) hCG Quant <1 0 - 10 mIU/mL [facility] Specimen Blood Narrative Performed At Non- Females: <10 mIU/mL [facility] Females: [facility] Gestation AgeReference Range(mIU/mL) 0.2-1 Week5-50 1-2 Dlmyw25-312 2-3 Weeks 100-5,000 3-4 Weeks 500-10,000 4-5 Weeks 1,000-50,000 5-6 Weeks10,000-100,000 6-8 Weeks15,000-200,000 2-3 Months 10,000-100,000 Performing Organization Address City/State/Zipcode Phone Number [facility] [address] [place] [address] MEDICAL CENTER * PERMANENT LAB REPORT - SCAN (01/07/2018 11:13 AM CDT) Narrative Performed At * Immunofixation electrophoresis (TONAY) (01/06/2018 4:08 PM CDT) IgG 3,413 (H) 540 - 1,822 mg/dL [facility] IgA 483 63 - 484 mg/dL [facility] IgM 130 22 - 293 mg/dL [facility] Serum TONYA Identification No monoclonal bands detected. [facility] Polyclonal distribution of [facility] immunoglobulins. Pathologist: Belkis Styles MD [facility] (electronic signature) [facility] Specimen Blood Performing Organization Address City/[facility]/Zipcode Phone Number [address] [address] [facility] * Protein electrophoresis, serum (01/06/2018 4:08 PM CDT) Albumin Fraction 2.6 (L) 3.5 - 5.5 g/dL [facility] Alpha 1 Fraction 0.3 0.2 - 0.4 g/dL [facility] Alpha 2 Fraction 0.8 0.5 - 0.9 g/dL [facility] Beta Fraction 1.0 0.6 - 1.1 g/dL [facility] Gamma Globulin Fraction 3.2 (H) 0.7 - 1.7 g/dL [facility] Interpretation Decreased albumin consistent [facility] with renal protein loss. [facility] Polyclonal elevation of gamma fraction, which may be seen with chronic inflammation and/or recent administration of IVIG. Serum TONYA ordered to exclude presence of small monoclonal protein underlying. Pathologist: Belkis Styles MD [facility] (electronic signature) [facility] Protein, Total 7.8 6.0 - 8.3 gm/dL [facility] Specimen Blood Performing Organization Address City/[facility]/Zipcode Phone Number [facility] [address] [place] [address] [facility] * PTH, intact (01/06/2018 4:08 PM CDT) PTH 80.1 (H) 8.5 - 72.5 pg/mL [facility] Specimen Blood Performing Organization Address City/State/Zipcode Phone Number [facility] [address] [place] [address] [facility] * Lactate dehydrogenase (LDH) (01/06/2018 4:08 PM CDT) LDH 171 125 - 220 U/L [facility] Specimen Blood Performing Organization Address City/State/Zipcode Phone Number [facility] [address] [place], [place] [phone] [facility] * XR shoulder complete 2 views min left (01/05/2018 10:00 AM CDT) Specimen Narrative Performed At FINAL REPORT [facility] LEFT SHOULDER 3 VIEWS HISTORY: Left [...] MD Report Verified Date/Time:01/05/2018 10:47:29 Reading Location: [facility] [address] [place] [address] Reading Room Procedure Note Interface, External Ris [...] Report Verified Date/Time: 01/05/2018 10:47:29 Reading Location: [address] Transitional Reading Room Performing Organization Address City/State/Zipcode Phone Number [employer] * XR elbow 3 views min left (01/05/2018 10:00 AM CDT) Specimen Narrative Performed At FINAL REPORT [facility] LEFT ELBOW 3 VIEWS HISTORY: Left elbow [...] MD Report Verified Date/Time:01/05/2018 10:51:25 Reading Location: [facility] C0[facility] Transitional Reading Room Procedure Note Interface, [...] Report Verified Date/Time: 01/05/2018 10:51:25 Reading Location: [address] Transitional Reading Room Performing Organization Address [facility] Phone Number [facility] * XR humerus 2 views left (01/05/2018 10:00 AM CDT) Specimen Narrative Performed At FINAL REPORT [employer] LEFT HUMERUS 2 VIEWS HISTORY: Left arm [...] MD Report Verified Date/Time:01/05/2018 10:55:40 Reading Location: [address] Transitional Reading Room Procedure Note Interface, [...] Report Verified Date/Time: 01/05/2018 10:55:40 Reading Location: [address] Transitional Reading Room Performing Organization Address [facility] Phone Number [facility] * HEMODIALYSIS INPATIENT [...] CDT) hepatitis B Surface Ag Nonreactive Nonreactive [facility] Specimen Blood Performing Organization Address City/[facility] Phone Number [address] * Hemoglobin A1c (01/03/2018 9:16 AM CDT) Hemoglobin A1C 6.0 4.3 - 6.1 % [facility] Specimen Blood Performing Organization Address City/[facility] Phone Number [address] * ED ECG Interpretation (01/03/2018 6:35 AM CDT) Narrative Performed At Meghan Montiel MD 01/03/20186:35 AM ECG/EKG Interpretation Date/Time: 01/03/2018 5:09 AM Performed by: MEGHAN MONTIEL Authorized by: MEGHAN MONTIEL The ECG was interpreted by ED physician. The ECG is interpreted as sinus rhythm. Rate is tachycardic. [place] is normal. Clinical Impression: non-specific ECGECG reviewed and does not meet STEMI criteria. Patient tolerance: Patient tolerated the procedure well with no immediate complications * Urinalysis w/ Microscopic (01/03/2018 4:24 AM CDT) Color, UA Yellow [facility] Clarity, UA Hazy [facility] Specific [place], UA 1.016 1.001 - 1.035 [facility] pH, UA 6.0 5.0 - 8.0 [facility] Protein, UA 300 mg/dL (A) Negative [facility] Glucose, UA Negative Negative [facility] Ketones, UA Negative Negative [facility] Bilirubin, UA Negative Negative [facility] Blood, UA Moderate (A) Negative [facility] Nitrite, UA Negative Negative [facility] Leukocytes, UA Large (A) Negative [facility] Urobilinogen, UA 0.2 0.2 - 1.0 mg/dL [facility] RBC, UA 104 /HPF [facility] WBC, UA 57 /HPF [facility] Bacteria, UA Few [facility] Hyaline Casts, UA 27 /LPF [facility] Granular Casts, UA 4 /LPF [facility] Amorphous Crystals Occasional [facility] Specimen Source Urine, Straight Catheter [facility] Specimen Urine - Urine, Straight Catheter Performing Organization Address City/State/Zipcode Phone Number [facility] [address] [place] [address] MED[facility] * Troponin I (01/03/2018 1:09 AM CDT) Troponin I 0.02 0.00 - 0.03 ng/mL [facility] Specimen Blood Narrative Performed At Troponin I (TnI) levels must be interpreted in the context of the presenting [facility] symptoms and the clinical findings. Elevated TnI levels indicate myocardial [facility] damage, but are not specific for ischemic heart disease. Elevated TnI levels are seen in patients with other cardiac conditions (including myocarditis and congestive heart failure), and slight TnI elevations occur in patients with other conditions, including sepsis, renal failure, acidosis, acute neurological disease, and persistent tachyarrhythmia. Performing Organization Address City/[facility] Phone Number [address] * B-type natriuretic peptide (01/03/2018 1:09 AM CDT) BNP 3,706 (H) 0 - 100 pg/mL [facility] Specimen Blood Performing Organization Address [facility] Phone Number [address] * Lipase (01/03/2018 1:09 AM CDT) Lipase 7 (L) 8 - 78 U/L [facility] Specimen Blood Performing Organization Address City/[facility] Phone Number [address] * Amylase (01/03/2018 1:09 AM CDT) Amylase 47 25 - 125 U/L [facility] Specimen Blood Performing Organization Address [facility] Phone Number [address] * Hepatic function panel (01/03/2018 1:09 AM CDT) Protein, Total 7.9 6.0 - 8.3 gm/dL [facility] Albumin 2.4 (L) 3.5 - 5.0 g/dL [facility] Total Bilirubin 0.5 0.2 - 1.2 mg/dL [facility] Bilirubin, Direct 0.3 0.1 - 0.5 mg/dL [facility] Alkaline Phosphatase 133 40 - 150 U/L [facility] AST 7 5 - 34 U/L [facility] ALT 6 6 - 55 U/L [facility] Specimen Blood Performing Organization Address City/State/Zipcode Phone Number [facility] [address] [place] [address] MEDICAL CENTER after 2017 Insurance Payer Benefit Subscriber ID Type Phone Address Plan / Group [place] MED[place] MEDICAID xxxxxxxxx [place] MED[place] - MEDICAID [place] MEDICAID xxxxxxxxx Medicaid CARE [place] Non-Contra NONCONTRAC cted EMILY Advance Directives For more information, please contact: [facility] [address] [place] [phone] Date Inactivated Comments Code Status Date Activated 01/23/2018 6:21 PM Full Code 01/03/2018 7:16 AM This code status was determined by: Patient
--- OUTSIDE RECORDS SUMMARY | 2018-11-12 02:19 | XMS REPORT | Summary of Care ---
Author Author [facility] - Health Organization [facility] - Health Address Unknown Phone Unavailable Care Team Providers Care Reshipping Clerk Name Role Phone Pcp, Patient Does Not Have A PCP Encounter Details Care Team Description Date Type Department Bipin Blas MD [address] [place] [address] [phone] 11/10/2018 Abstract [facility] [address] [place] [phone] Allergies Not on Filedocumented as of this encounter (statuses as of 11/10/2018) Medications Not on filedocumented as of this encounter (statuses as of 11/10/2018) Active Problems Not on filedocumented as of this encounter (statuses as of 11/10/2018) Social History Date Tobacco Use Types Packs/Day Years Used Never Assessed Sex Assigned at Date Recorded Not on file Industry Job Start Date Occupation Not on file Not on file Not on file Travel End Travel History Travel Start No recent travel history available. documented as of this encounter Last Filed Vital Signs Not on filedocumented in this encounter Plan of Treatment Health Maintenance Due Date Last Done Comments VARICELLA VACCINES (1 of 11/10/2000 2 - 13+ 2-dose series) DTaP,Tdap,and Td Vaccines 11/10/2006 (1 - Tdap) PAP SMEAR 11/10/2008 INFLUENZA VACCINE 12/14/2018 PNEUMOCOCCAL 0-64 YEARS Aged Out No longer eligible based COMBINED SERIES on patient's age to complete this topic documented as of this encounter Results Not on filedocumented in this encounter Insurance Type Payer Benefit Subscriber ID Effective Phone Address Plan / Dates Group Medicaid [facility] [place] xxxxxxxxx 2016- P O MARIAM MANAGED MEDICAID HEALTHCARE Present [id number] MEDICAID [place], [place] documented as of this encounter
--- OUTSIDE RECORDS SUMMARY | 2018-11-12 02:19 | XMS REPORT | Continuity of Care Document ---
Author Author [employer] Organization [employer] Address Unknown Phone Unavailable Care Team Providers Care Nylon Operator Name Role Phone [employer] Information Exchange Unavailable Unavailable Problems Problem Status Onset Date Classification Date Reported Comments Source S3 Active 01/02/2016 Problem 10/20/2018 [facility] UTI Active 01/02/2016 Problem 10/20/2018 [facility] End stage renal disease on dialysis due to type 2 diabetes mellitus Active 10/23/2015 Problem 10/20/2018 [facility] Hyperkalemia Active 10/23/2015 Problem 10/20/2018 [facility] Myoclonic disorder Active 10/23/2015 Problem 10/20/2018 [facility] Volume overload Active 10/23/2015 Problem 10/20/2018 [facility] ESRD on dialysis Active 09/29/2015 Problem 10/20/2018 [facility] Edema Active 09/29/2015 Problem 10/20/2018 [facility] Abdominal pain Active 09/05/2015 Problem 10/20/2018 [facility] Anemia Active 02/26/2015 Problem 10/20/2018 [facility] Hypertension Active 12/17/2014 Problem 10/20/2018 [facility] Malaise and fatigue Active 12/17/2014 Problem 10/20/2018 [facility] Uncontrolled diabetes mellitus Active 12/17/2014 Problem 10/20/2018 [facility] Acute renal failure Active 07/30/2014 Problem 10/20/2018 [facility] Dehydration Active 07/30/2014 Problem 10/20/2018 [facility] Gastroparesis Active 07/30/2014 Problem 10/20/2018 [facility] UTI Active 07/30/2014 Problem 10/20/2018 [facility] Vomiting Active 07/30/2014 Problem 10/20/2018 [facility] Cystitis Active 07/01/2014 Problem 10/20/2018 [facility] Diabetes Active 07/01/2014 Problem 10/20/2018 [facility] Anemia, chronic renal failure Active Problem 10/20/2018 [facility] Cervical strain, acute Active Problem 10/20/2018 [facility] Chest pain Active Problem 10/20/2018 [facility] Dysuria Active Problem 10/20/2018 [facility] ESRD Active Problem 10/20/2018 [facility] Encounter for care related to feeding tube Active Problem 10/20/2018 [facility] Gastroparesis diabeticorum Active Problem 10/20/2018 [facility] Nausea & vomiting Active Problem 10/20/2018 [facility] Pelvic pain Active Problem 10/20/2018 [facility] Renal failure Active Problem 10/20/2018 [facility] Symptomatic anemia Active Problem 10/20/2018 [facility] Syncope Active Problem 10/20/2018 [facility] Vomiting and diarrhea Active Problem 10/20/2018 [facility] Medications Medication Details Route Status Patient Instructions Ordering Provider Order Date Source Promethazine Hcl 12.5 Mg Supp.rect Three Times A Day as needed for Vomiting Active Zeballos 10/20/2018 [facility] Morphine Sulfate (Ms Contin) 30 Mg Tablet.er, Oral Twice A Day Active 09/13/2017 [facility] Ascorbic Acid 500 Mg Tablet Twice A Day Active Kannan 09/10/2017 [facility] Clonazepam 0.5 Mg Tablet Every 8 Hours as needed for Anxiety Active Neffs 09/10/2017 [facility] Ferrous Sulfate 325 Mg Tablet Daily Active Neffs 09/10/2017 [facility] Promethazine Hcl 25 Mg Tablet Every 8 Hours as needed for Nausea Active Neffs 09/10/2017 [facility] Clonazepam 0.5 Mg Tablet Every 8 Hours as needed for Anxiety Active Neffs 07/14/2017 [facility] Clonazepam 1 Mg Tablet, 2 Mg Oral Three Times A Day Active 07/14/2017 [facility] Diphenhydramine Hcl (Benadryl) 25 Mg Capsule, 25 Mg Oral Four Times Daily Active 07/14/2017 [facility] Docusate Sodium (Colace) 100 Mg Cap, 100 Mg Oral As Needed for Constipation Active 07/14/2017 [facility] Fluconazole , 150 Mg Oral Use As Directed Active Neffs 07/14/2017 [facility] Lorazepam (Ativan) 1 Mg Tablet, Oral Twice A Day Active 07/14/2017 [facility] Methocarbamol 500 Mg Tablet, 500 Mg Oral Twice A Day Active 07/14/2017 [facility] Mirtazapine (Remeron) 15 Mg Tab.rapdis, 15 Mg Oral Bedtime Active 07/14/2017 [facility] Morphine Sulfate (Ms Contin) 30 Mg Tablet.er, 30 Mg Oral Every 6 Hours as needed for Pain Active 07/14/2017 [facility] Zolpidem Tartrate (Ambien) 10 Mg Tablet, 10 Mg Oral Bedtime as needed for Sleep Active 07/14/2017 [facility] Linezolid (Zyvox) 600 Mg Tablet, 600 Mg Oral Twice A Day Active Neffs 07/04/2017 [facility] Promethazine Hcl 25 Mg Supp.rect, 1 Supp Rectal Twice A Day as needed for Nausea Active Neffs 07/04/2017 [facility] Ceftin , 500 Mg Oral Daily Active Neffs 06/30/2017 [facility] Fluconazole (Diflucan) 150 Mg Tablet, 150 Mg Oral Once Active Neffs 06/30/2017 [facility] Metoclopramide Hcl 10 Mg Tablet Before Meals And At Bedtime Active Neffs 06/27/2017 [facility] Pantoprazole Sodium (Protonix) 40 Mg Suspdr.pkt Twice Daily Before Meals Active Neffs 06/27/2017 [facility] Diphenhydramine Hcl 50 Mg/1 Ml Disp.syrin, 50 Mg Intraven .before Dialysis Active 06/27/2017 [facility] Lorazepam (Ativan) 2 Mg Tablet, 2 Mg Oral Every Two Hours Active 06/27/2017 [facility] Promethazine Hcl (Phenergan Supp*) 25 Mg Supp, 1 Supp Rectal Twice A Day as needed for Nausea Active Neffs 06/27/2017 [facility] Promethazine Hcl (Phenergan) 25 Mg/1 Ml Ampul, 25 Mg Intraven Every 4 Hours Active 06/27/2017 [facility] Cyclobenzaprine Hcl (Flexeril) 5 Mg Tablet, 10 Mg Oral Twice A Day Active 06/26/2017 [facility] Diphenoxylate Hcl/Atropine (Lomotil Tablet) 1 Each Tablet, 1 Tab Oral As Needed as needed for Diarrhea Active 06/26/2017 [facility] Morphine Sulfate In 0.9 % Nacl (Morphine-Ns 2 Mg/Ml Syringe) 2 Mg/1 Ml Disp.syrin, 4 Mg Intraven Q3hr as needed for Pain Active 06/25/2017 [facility] Docusate Sodium (Colace) 100 Mg Capsule Twice A Day Active [place] 06/03/2017 [facility] Epoetin Bharath (Epogen) 10,000 Unit/1 Ml Vial Every Saturday, Saturday, And Saturday Active Aba 06/03/2017 [facility] Polyethylene Glycol 3350 (Miralax) 17 Gm Powd.pack Daily Active Aba 06/03/2017 [facility] Cefuroxime Axetil (Cefuroxime) 250 Mg Tablet, 250 Mg Oral Every 12 Hours Active Aba 06/03/2017 [facility] Cyclobenzaprine Hcl 10 Mg Tablet, 10 Mg Oral Twice A Day Active [place] 06/03/2017 [facility] Diclofenac Epolamine (Flector) 1 Each Adh..patch, 1 Patch Topical Every 12 Hours Active [place] 06/03/2017 [facility] Fluticasone Propionate 1 Ea [place], 0 Ea Nasal Twice A Day Active [place] 06/03/2017 [facility] Insulin Regular, Human (Humulin R) 100 Unit/1 Ml Vial, 0 Unit Sub-Q Before Meals And At Bedtime Active [place] 06/03/2017 [facility] Sucralfate 1 G/10 Ml Susp, 1 G Oral Before Meals And At Bedtime Active [place] 06/03/2017 [facility] Urea 85.05 Gm Cr, 0 Gm Topical Twice A Day Active [place] 06/03/2017 [facility] Budesonide/Formoterol Fumarate (Symbicort 160-4.5 Mcg Inhaler) 10.2 Gm Hfa.aer.ad Twice A Day Active Neffs 04/11/2017 [facility] Mirtazapine 15 Mg Tab Bedtime Active Neffs 04/11/2017 [facility] Hydroxyzine Hcl 25 Mg Tablet, 25 Mg Oral Three Times A Day as needed for Anxiety Active Neffs 04/11/2017 [facility] Meclizine Hcl 12.5 Mg Tablet, 12.5 Mg Oral Three Times A Day Active 04/11/2017 [facility] Metoclopramide Hcl 10 Mg Tablet, 10 Mg Oral Before Meals And At Bedtime Active Neffs 04/11/2017 [facility] Sucralfate 1 Gm Tablet, 1 Gm Oral Three Times A Day Active Neffs 04/11/2017 [facility] Sucralfate (Carafate) 1 Gm/10 Ml Oral.susp, 1 Gm Oral Three Times A Day Active 04/11/2017 [facility] Temazepam (Restoril) 15 Mg Capsule, 15 Mg Oral Bedtime as needed for Insomnia Active Neffs 04/11/2017 [facility] Zolpidem Tartrate (Ambien) 10 Mg Tablet, 10 Mg Oral Bedtime Active 04/11/2017 [facility] Diphenhydramine Hcl (Benadryl) 25 Mg Capsule, 25 Mg Oral Four Times Daily Active 02/11/2017 [facility] Dicyclomine Hcl (Bentyl) 10 Mg Capsule, 10 Mg Oral As Needed Active 01/23/2017 [facility] Ferrous Sulfate 325 Mg Tablet, 325 Mg Oral Daily Active 01/23/2017 [facility] Pantoprazole Sodium (Protonix) 40 Mg Suspdr.pkt, 40 Mg Oral Twice A Day Active Lars 01/07/2017 [facility] Pantoprazole Sodium (Protonix) 40 Mg Tablet.dr, 40 Mg Oral Daily Active 01/07/2017 [facility] Furosemide (Lasix) 40 Mg Tablet Twice A Day Active [place] 12/20/2016 [facility] Insulin Regular, Human (Humulin R) 100 Unit/1 Ml Vial, 0 Unit Sub-Q Before Meals And At Bedtime Active [place] 12/20/2016 [facility] Loratadine/Pseudoephedrine (Claritin-D 24 Hour Tablet) 1 Each Tab.er.24h, 1 Each Oral Daily Active 12/16/2016 [facility] Fluticasone Propionate 1 Ea [place], 1 Ea Nasal Twice A Day Active Lars 06/13/2016 [facility] Furosemide (Lasix) 40 Mg Tablet, 40 Mg Oral Daily Active Lars 06/13/2016 [facility] Sulfamethoxazole/Trimethoprim (Sulfamethoxazole-Tmp Ds Tablet) 1 Each Tablet, 1 Ea Oral Every 12 Hours Active Lars 06/13/2016 [facility] Carvedilol (Coreg) 12.5 Mg Tab Twice A Day Active Lars 06/02/2016 [facility] Diltiazem Hcl (Cardizem) 30 Mg Tablet Four Times Daily Active Lars 06/02/2016 [facility] Amlodipine Besylate 10 Mg Tablet, 10 Mg Oral Daily Active 06/02/2016 [facility] Diphenhydramine Hcl (Benadryl) 25 Mg Capsule, 50 Mg Oral Active 06/02/2016 [facility] Furosemide (Lasix) 40 Mg Tablet, 40 Mg Oral Daily Active 06/02/2016 [facility] Guaifenesin (Mucinex) 600 Mg Tablet.er, 600 Mg Oral Every 6 Hours Active Lars 06/02/2016 [facility] Labetalol Hcl 300 Mg Tablet, 300 Mg Oral Every 12 Hours Active 06/02/2016 [facility] Levofloxacin (Levaquin) 500 Mg Tablet, 500 Mg Oral Daily At 1700 Active Lars 06/02/2016 [facility] Nifedipine (Nifedipine Er) 30 Mg Tab.er.24, 90 Mg Oral Every 12 Hours Active 06/02/2016 [facility] Orphenadrine Citrate (Norflex) 100 Mg Tab, 100 Mg Oral Twice A Day Active 05/27/2016 [facility] Alprazolam (Xanax) 0.5 Mg Tablet, 0.5 Mg Oral Three Times A Day Active 03/30/2016 [facility] Clonazepam 1 Mg Tablet, 0.5 Mg Oral Three Times A Day Active Alexys 03/30/2016 [facility] Clonazepam 1 Mg Tablet, 1 Mg Oral Three Times A Day Active 03/30/2016 [facility] Gabapentin 100 Mg Capsule, 100 Mg Oral Twice A Day Active Alexys 03/30/2016 [facility] Zolpidem Tartrate (Ambien) 5 Mg Tablet, 5 Mg Oral Bedtime as needed for Insomnia Active Alexys 03/30/2016 [facility] Metoprolol Succinate 50 Mg Tab.er.24h, 50 Mg Oral Every 8 Hours Active 03/22/2016 [facility] Metoclopramide Hcl (Reglan) 10 Mg Tablet, 10 Mg Oral Three Times A Day Active 03/02/2016 [facility] Albuterol Sulfate 0.63 Mg/3 Ml Vial.neb, Every 6 Hours as needed for Wheezing Active 01/02/2016 [facility] Alprazolam (Xanax) 0.5 Mg Tablet, 0.5 Mg Oral Three Times A Day Active 01/02/2016 [facility] Amlodipine Besylate 5 Mg Tablet, 5 Mg Oral Daily Active 01/02/2016 [facility] Insulin Detemir (Levemir) 100 Unit/1 Ml Vial, 4 Units Subcutaneously Daily At 1700 Active 01/02/2016 [facility] Mirtazapine 15 Mg Tab, 7.5 Mg Oral Bedtime Active 01/02/2016 [facility] Morphine Sulfate (Morphine Sulfate Er) 30 Mg Tablet.er, 30 Mg Oral Three Times A Day as needed for Pain Active 01/02/2016 [facility] Zolpidem Tartrate (Ambien) 10 Mg Tablet, 10 Mg Oral Bedtime Active 01/02/2016 [facility] Butalb/Acetaminophen/Caffeine (Gelqha-Mhmgdaxk-Xfwk 50-325-40) 1 Each Tablet, Every 6 Hours Active 11/09/2015 [facility] Dicyclomine Hcl (Bentyl) 10 Mg Capsule, 10 Mg Oral Three Times A Day Active Lars 11/09/2015 [facility] Gabapentin 300 Mg Capsule, 300 Mg Oral Twice A Day Active 11/09/2015 [facility] Labetalol Hcl (Trandate) 200 Mg Tablet, 400 Mg Oral Every 8 Hours Active Lars 11/09/2015 [facility] Metoclopramide Hcl (Reglan) 10 Mg Tablet, 10 Mg Oral Before Meals And At Bedtime Active Lars 11/09/2015 [facility] Metoprolol Tartrate 50 Mg Tablet, 50 Mg Oral Every 8 Hours Active 11/09/2015 [facility] Minoxidil 2.5 Mg Tablet, 2.5 Mg Oral Twice A Day Active 11/09/2015 [facility] Neomycin/Polymyxin/Hydrocort 10 Ml Btl, 10 Ml Otic Daily as needed for Pain And Temperature Active Lars 11/09/2015 [facility] Phenytoin Sodium 100 Mg Cap, 200 Mg Oral Every 12 Hours Active Lars 11/09/2015 [facility] Phenytoin Sodium Extended (Dilantin) 100 Mg Capsule, 300 Mg Oral Daily Active 11/09/2015 [facility] Orphenadrine Citrate (Norflex) 100 Mg Tab, 100 Mg Oral Twice A Day Active 10/15/2015 [facility] Tizanidine Hcl 4 Mg Capsule, Twice A Day Active 10/15/2015 [facility] Metronidazole 500 Mg Tablet, 500 Mg Oral Three Times A Day Active [place] 10/14/2015 [facility] Docusate Sodium (Colace) 100 Mg Cap, 100 Mg Oral Twice A Day for Constipation Active Obi-odil09/20/2015 [facility] Doxazosin Mesylate (Cardura) 2 Mg Tablet, 4 Mg Oral Twice A Day Active Obi-odil09/20/2015 [facility] Lorazepam (Ativan*) 0.5 Mg Tablet, 0.5 Mg Oral Three Times A Day Active 09/20/2015 [facility] Sucralfate 1 G/10 Ml Susp, 1 G Oral Before Meals And At Bedtime for Gas Active Obi-e 09/20/2015 [facility] Zolpidem Tartrate (Ambien) 10 Mg Tablet, 10 Mg Oral Bedtime as needed for Insomnia Active Obi-odile 09/20/2015 [facility] Zolpidem Tartrate (Ambien) 10 Mg Tablet, 10 Mg Oral Bedtime Active 09/05/2015 [facility] Digoxin 250 Mcg Tablet, 250 Mg Oral Daily Active 12/29/2014 [facility] Lidocaine Hcl (Lidocaine Hcl Viscous) 20 Mg/1 Ml Solution, 20 Mg Oral Every 6 Hours Active 12/29/2014 [facility] Isosorbide Mononitrate 30 Mg Tabcr, 30 Mg Oral Daily Active 12/26/2014 [facility] Lisinopril (Prinivil) 10 Mg Tablet, 10 Mg Oral Daily Active 12/26/2014 [facility] Metoprolol Succinate 50 Mg Tab.er.24h, 100 Mg Oral Daily Active 12/26/2014 [facility] Nifedipine 30 Mg Tabcr, 90 Mg Oral Every 12 Hours Active 12/26/2014 [facility] Sodium Bicarbonate 650 Mg Tablet, 1300 Mg Oral Twice A Day Active Lonny 12/26/2014 [facility] Docusate Sodium (Colace) 100 Mg Cap, 100 Mg Oral Daily Active Lars 08/06/2014 [facility] Labetalol Hcl (Trandate) 200 Mg Tablet, 200 Mg Oral Every 12 Hours Active Lars 08/06/2014 [facility] Metoclopramide Hcl 5 Mg/Ml Inj, 10 Mg Oral Every 6 Hours Active Lars 08/06/2014 [facility] Metpck 6 Gm Pack, 6 Gm Oral Daily Active Lars 08/06/2014 [facility] [id number] 30 Mg Tabcr, 30 Mg Oral Daily Active Lars 08/06/2014 [facility] Pnt40v 40 Mg Vial, 40 Mg Oral Twice A Day Active Lars 08/06/2014 [facility] Sennosides (Senokot) 8.6 Mg Tablet, 8.6 Mg Oral Daily Active Lars 08/06/2014 [facility] Alprazolam (Xanax Xr) 1 Mg Tab.er.24h, 1 Mg Oral Daily Active 07/05/2014 [facility] Cefuroxime Axetil (Cefuroxime) 250 Mg Tablet, 250 Mg Oral Every 12 Hours Active Alexys 07/05/2014 [facility] Digoxin (Lanoxin) 250 Mcg Tablet, 250 Mcg Oral Daily Active Alexys 07/05/2014 [facility] Diphenhydramine Hcl (Benadryl) 25 Mg Capsule, 25 Mg Oral Four Times Daily as needed for Active Alexys 07/05/2014 [facility] Esomeprazole Magnesium (Nexium) 40 Mg Capsule.dr, 40 Mg Oral Daily Active Alexys 07/05/2014 [facility] Insulin Glargine (Lantus) 100 Units/Ml Ml, 70 Unit Subcutaneously Every Morning Active [place] 07/05/2014 [facility] Insulin Regular, Human (Humulin R) 100 Unit/1 Ml Vial, 1 Units Subcutaneously As Directed Active [place] 07/05/2014 [facility] Lorazepam (Ativan) 1 Mg Tablet, 1 Mg Oral Twice A Day as needed for Active [place] 07/05/2014 [facility] Lorazepam (Ativan) 1 Mg Tablet, 2 Mg Oral Three Times A Day as needed for Active 07/05/2014 [facility] Losartan Potassium (Cozaar) 25 Mg Tablet, 25 Mg Oral Twice A Day Active [place] 07/05/2014 [facility] Methocarbamol (Robaxin) 500 Mg Tablet, 500 Mg Oral Twice A Day Active [place] 07/05/2014 [facility] Metoprolol Tartrate (Lopressor) 25 Mg Tab, 50 Mg Oral Twice A Day Active [place] 07/05/2014 [facility] Metronidazole (Flagyl) 500 Mg Tablet, 500 Mg Oral Three Times A Day Active [place] 07/05/2014 [facility] Promethazine Hcl 25 Mg Tablet, 25 Mg Oral Daily Active [place] 07/05/2014 [facility] Sucralfate (Carafate) 1 Gm/10 Ml Oral.susp, 1 Gm Oral Every 6 Hours Active [place] 07/05/2014 [facility] Cetirizine Hcl (Zyrtec) 10 Mg Capsule, 10 Mg Oral Daily Active 07/01/2014 [facility] Dicyclomine Hcl (Bentyl) 10 Mg Capsule, 10 Mg Oral Twice A Day Active 07/01/2014 [facility] Iron,Carbonyl (Iron) 45 Mg Tablet, 65 Mg Oral Daily Active 07/01/2014 [facility] Levothyroxine Sodium (Levothroid) 88 Mcg Tablet, 88 Mcg Oral Daily Active 07/01/2014 [facility] Medroxyprogesterone Acetate 10 Mg Tablet, 10 Mg Oral Daily Active 07/01/2014 [facility] Metoclopramide Hcl 10 Mg Tablet, 10 Mg Oral Three Times A Day Active 07/01/2014 [facility] Pantoprazole Sodium (Protonix) 40 Mg Tablet.dr, 40 Mg Oral Daily Active 07/01/2014 [facility] Ranitidine Hcl 300 Mg Tablet, 300 Mg Oral Bedtime Active 07/01/2014 [facility] Sucralfate (Carafate) 1 Gm Tablet, 1 Gm Oral Bedtime Active 07/01/2014 [facility] Hydrochlorothiazide 25 Mg Tablet, 25 Mg Oral Daily Active 06/30/2013 [facility] Morphine Sulfate (Morphine Sulfate Er) 60 Mg Tablet.er, 30 Mg Oral Every 12 Hours as needed Active 06/30/2013 [facility] Promethazine Hcl 25 Mg Tablet, 25 Mg Oral Every 6 Hours Active 06/30/2013 [facility] Diazepam 10 Mg Tablet, 10 Mg Oral Twice A Day Active 06/19/2013 [facility] Dicyclomine Hcl (Bentyl) 20 Mg Tablet, 20 Mg Oral Twice A Day Active 06/19/2013 [facility] Diphenhydramine Hcl (Benadryl) 50 Mg/1 Ml Vial, 12.5 Mg Intraven Every 3-4 Hours as needed Active 02/04/2013 [facility] Bisacodyl (Dulcolax) 10 Mg Supp.rect, Mg Oral Every 7 Days Active 10/03/2012 [facility] Diphenhydramine Hcl (Benadryl) 25 Mg Capsule, 25 Mg Oral As Needed Active 10/03/2012 [facility] Magnisium Citrate , 1 Bottle Oral Q7days Active 10/03/2012 [facility] Promethazine Hcl (Phenergan Supp*) 25 Mg Supp, 25 Mg Rectal As Needed Active 10/03/2012 [facility] Ciprofloxacin Hcl 500 Mg Tablet, 500 Mg Oral Twice A Day Active 09/26/2012 [facility] Tobramycin/Dexamethasone (Tobradex Eye Drops) 5 Ml Soln, 2 Drop Left Eye Three Times A Day Active 09/26/2012 [facility] Baclofen 10 Mg Tablet, 10 Mg Oral Twice A Day Active 09/13/2012 [facility] Albuterol Sulfate 0.63 Mg/3 Ml Vial.neb Every 6 Hours While Awake Active [facility] Albuterol Sulfate (Albuterol Sulfate Hfa) 8.5 Gm Hfa.aer.ad As Needed as needed for Shortness Of Breath Active [facility] Folic Acid/Vitamin B Comp W-C (Dialyvite Tablet) 1 Each Tablet Daily Active [facility] Insulin Regular, Human (Humulin R) 100 Unit/1 Ml Vial As Needed Active [facility] Ipratropium [place] 0.2 Mg/1 Ml Solution As Needed Active [facility] Levetiracetam (Keppra) 500 Mg Tablet Twice A Day Active [facility] Phenytoin Sodium Extended (Dilantin) 100 Mg Capsule Every 12 Hours Active [facility] Promethazine Hcl 25 Mg Tablet Three Times A Day as needed for Nausea Active [facility] Allergies, Adverse Reactions, Alerts Substance Category Reaction Severity Reaction type Status Date Reported Comments Source ketorolac tromethamine Unknown Allergy to Substance Active 02/23/2018 [facility] ondansetron HCl Unknown Allergy to Substance Active 02/23/2018 [facility] Penicillin Unknown Allergy to Substance Active 02/23/2018 [facility] Latex Mild Allergy to Substance Active 02/23/2018 [facility] Hydrocodone Unknown Allergy to Substance Active 02/23/2018 [facility] Aspirin Unknown Allergy to Substance Active 02/23/2018 [facility] Ibuprofen GI upset Unknown Allergy to Substance Active 02/23/2018 [facility] Fentanyl Unknown Allergy to Substance Active 02/23/2018 [facility] Tramadol Unknown Allergy to Substance Active 02/23/2018 [facility] Clonidine Unknown Allergy to Substance Active 02/23/2018 [facility] Hydromorphone Unknown Allergy to Substance Active 02/23/2018 [facility] Metoclopramide Unknown Allergy to Substance Active 02/23/2018 [facility] Nitroglycerin Severe Allergy to Substance Active 02/27/2018 [facility] Acetaminophen NAUSEA AND VOMITTING Severe Allergy to Substance Active 02/27/2018 [facility] Immunizations No Data Provided for This Section Results Order Name Results Value Reference Range Date Interpretation Comments Source Blood leukocytes automated count (number/volume) 3.33 4.8 - 10.8 10/17/2018 [facility] Blood erythrocytes automated count (number/volume) 3.28 3.6 - 5.1 10/17/2018 [facility] Blood hemoglobin measurement (moles/volume) 8.9 12.0 - 16.0 10/17/2018 [facility] Automated blood hematocrit (volume fraction) 31.2 34.2 - 44.1 10/17/2018 [facility] Automated erythrocyte mean corpuscular volume 95.1 81 - 99 10/17/2018 [facility] Automated erythrocyte mean corpuscular hemoglobin (mass per erythrocyte) 27.1 28 - 32 10/17/2018 [facility] Automated erythrocyte mean corpuscular hemoglobin concentration measurement (mass/volume) 28.5 31 - 35 10/17/2018 [facility] RDW BldCo-Rto 18.2 11.7 - 14.4 10/17/2018 [facility] Automated blood platelet count (count/volume) 143 140 - 360 10/17/2018 [facility] Automated blood segmented neutrophil count as percentage of total leukocytes 57.4 38.7 - 80.0 10/17/2018 [facility] Automated blood lymphocyte count as percentage ot total leukocytes 29.7 18.0 - 39.1 10/17/2018 [facility] Automated blood monocyte count as percentage of total leukocytes 8.4 4.4 - 11.3 10/17/2018 [facility] Automated blood eosinophil count as percentage of total leukocytes 3.3 0.0 - 6.0 10/17/2018 [facility] Automated blood basophil count as percentage of total leukocytes 0.6 0.0 - 1.0 10/17/2018 [facility] IM GRANULOCYTES % 0.6 0.0 - 1.0 10/17/2018 [facility] Automated blood neutrophil count 1.9 2.1 - 6.9 10/17/2018 [facility] Blood lymphocytes count (number/volume) 1.0 1.0 - 3.2 10/17/2018 [facility] Blood monocytes automated count (number/volume) 0.3 0.2 - 0.8 10/17/2018 [facility] Automated blood eosinophil count 0.1 0.0 - 0.4 10/17/2018 [facility] Automated blood basophil count (count/volume) 0.0 0.0 - 0.1 10/17/2018 [facility] Absolute Immature Granulocyte (auto 0.02 0 - 0.1 10/17/2018 [facility] Serum or plasma sodium measurement (moles/volume) 141 136 - 145 10/17/2018 [facility] Serum or plasma potassium measurement (moles/volume) 3.6 3.5 - 5.1 10/17/2018 [facility] Serum or plasma chloride measurement (moles/volume) 108 98 - 107 10/17/2018 [facility] Serum or plasma carbon dioxide, total measurement (moles/volume) 19 22 - 29 10/17/2018 [facility] Serum or plasma anion gap 17.6 8 - 16 10/17/2018 [facility] Serum or plasma urea nitrogen measurement (mass/volume) 15 7 - 26 10/17/2018 [facility] Serum or plasma creatinine measurement (mass/volume) 3.54 0.57 - 1.11 10/17/2018 [facility] Serum or plasma urea nitrogen/creatinine mass ratio 4 6 - 25 10/17/2018 [facility] Estimated glomerular filtration rate (GFR) determination 18 60 10/17/2018 [facility] Glucose measurement 154 74 - 118 10/17/2018 [facility] Serum or plasma calcium measurement (mass/volume) 7.9 8.4 - 10.2 10/17/2018 [facility] Serum or plasma total bilirubin measurement (mass/volume) 0.4 0.2 - 1.2 10/17/2018 [facility] Aspartate Amino Transf (AST/SGOT) 17 5 - 34 10/17/2018 [facility] Serum or plasma alanine aminotransferase measurement (enzymatic activity/volume) 9 0 - 55 10/17/2018 [facility] Serum or plasma protein measurement (mass/volume) 7.3 6.5 - 8.1 10/17/2018 [facility] Serum or plasma albumin measurement (mass/volume) 2.9 3.5 - 5.0 10/17/2018 [facility] Plasma globulin measurement (mass/volume) 4.4 2.3 - 3.5 10/17/2018 [facility] Serum or plasma albumin/globulin mass ratio 0.7 0.8 - 2.0 10/17/2018 [facility] Serum or plasma alkaline phosphatase measurement (enzymatic activity/volume) 147 40 - 150 10/17/2018 [facility] Capillary blood glucose measurement by glucometer (mass/volume) 247 70 - 120 02/27/2018 [facility] Capillary blood glucose measurement by glucometer (mass/volume) 247 70 - 120 02/27/2018 [facility] Serum or plasma sodium measurement (moles/volume) 136 136 - 145 02/27/2018 [facility] Serum or plasma potassium measurement (moles/volume) 3.4 3.5 - 5.1 02/27/2018 [facility] Serum or plasma chloride measurement (moles/volume) 101 98 - 107 02/27/2018 [facility] Serum or plasma carbon dioxide, total measurement (moles/volume) 19 22 - 29 02/27/2018 [facility] Serum or plasma anion gap 19.4 8 - 16 02/27/2018 [facility] Serum or plasma urea nitrogen measurement (mass/volume) 57 7 - 26 02/27/2018 [facility] Serum or plasma creatinine measurement (mass/volume) 6.34 0.57 - 1.11 02/27/2018 [facility] Serum or plasma urea nitrogen/creatinine mass ratio 9 6 - 25 02/27/2018 [facility] Estimated glomerular filtration rate (GFR) determination 9 60 02/27/2018 [facility] Glucose measurement 62 74 - 118 02/27/2018 [facility] Serum or plasma calcium measurement (mass/volume) 6.9 8.4 - 10.2 02/27/2018 [facility] Serum or plasma total bilirubin measurement (mass/volume) 0.3 0.2 - 1.2 02/27/2018 [facility] Aspartate Amino Transf (AST/SGOT) 22 5 - 34 02/27/2018 [facility] Serum or plasma alanine aminotransferase measurement (enzymatic activity/volume) 28 0 - 55 02/27/2018 [facility] Serum or plasma protein measurement (mass/volume) 7.4 6.5 - 8.1 02/27/2018 [facility] Serum or plasma albumin measurement (mass/volume) 2.9 3.5 - 5.0 02/27/2018 [facility] Plasma globulin measurement (mass/volume) 4.5 2.3 - 3.5 02/27/2018 [facility] Serum or plasma albumin/globulin mass ratio 0.6 0.8 - 2.0 02/27/2018 [facility] Serum or plasma alkaline phosphatase measurement (enzymatic activity/volume) 175 40 - 150 02/27/2018 [facility] Serum or plasma magnesium measurement (mass/volume) 2.3 1.3 - 2.1 02/27/2018 [facility] Serum or plasma creatine kinase measurement (enzymatic activity/volume) 72 29 - 168 02/27/2018 [facility] Serum or plasma creatine kinase MB measurement (mass/volume) 3.80 0 - 5.0 02/27/2018 [facility] Troponin I measurement by highly sensitive enzyme immunoassay 0.018 0 - 0.300 02/27/2018 [facility] Blood leukocytes automated count (number/volume) 3.98 4.8 - 10.8 02/27/2018 [facility] Blood erythrocytes automated count (number/volume) 3.97 3.6 - 5.1 02/27/2018 [facility] Blood hemoglobin measurement (moles/volume) 11.0 12.0 - 16.0 02/27/2018 [facility] Automated blood hematocrit (volume fraction) 36.8 34.2 - 44.1 02/27/2018 [facility] Automated erythrocyte mean corpuscular volume 92.7 81 - 99 02/27/2018 [facility] Automated erythrocyte mean corpuscular hemoglobin (mass per erythrocyte) 27.7 28 - 32 02/27/2018 [facility] Automated erythrocyte mean corpuscular hemoglobin concentration measurement (mass/volume) 29.9 31 - 35 02/27/2018 [facility] RDW BldCo-Rto 16.7 11.7 - 14.4 02/27/2018 [facility] Automated blood platelet count (count/volume) 174 140 - 360 02/27/2018 [facility] Automated blood segmented neutrophil count as percentage of total leukocytes 68.2 38.7 - 80.0 02/27/2018 [facility] Automated blood lymphocyte count as percentage ot total leukocytes 21.1 18.0 - 39.1 02/27/2018 [facility] Automated blood monocyte count as percentage of total leukocytes 6.3 4.4 - 11.3 02/27/2018 [facility] Automated blood eosinophil count as percentage of total leukocytes 3.3 0.0 - 6.0 02/27/2018 [facility] Automated blood basophil count as percentage of total leukocytes 0.8 0.0 - 1.0 02/27/2018 [facility] IM GRANULOCYTES % 0.3 0.0 - 1.0 02/27/2018 [facility] Automated blood neutrophil count 2.7 2.1 - 6.9 02/27/2018 [facility] Blood lymphocytes count (number/volume) 0.8 1.0 - 3.2 02/27/2018 [facility] Blood monocytes automated count (number/volume) 0.3 0.2 - 0.8 02/27/2018 [facility] Automated blood eosinophil count 0.1 0.0 - 0.4 02/27/2018 [facility] Automated blood basophil count (count/volume) 0.0 0.0 - 0.1 02/27/2018 [facility] Absolute Immature Granulocyte (auto 0.01 0 - 0.1 02/27/2018 [facility] Serum or plasma magnesium measurement (mass/volume) 2.3 1.3 - 2.1 02/27/2018 [facility] Serum or plasma creatine kinase measurement (enzymatic activity/volume) 72 29 - 168 02/27/2018 [facility] Serum or plasma creatine kinase MB measurement (mass/volume) 3.80 0 - 5.0 02/27/2018 [facility] Troponin I measurement by highly sensitive enzyme immunoassay 0.018 0 - 0.300 02/27/2018 [facility] Lactic Acid Level 21.3 4.5 - 19.8 11/23/2017 [facility] Serum or plasma amylase measurement (enzymatic activity/volume) 32 25 - 125 11/23/2017 [facility] Serum or plasma lipase measurement (enzymatic activity/volume) 16 8 - 78 11/23/2017 [facility] Serum or plasma choriogonadotropin ( test) detection NEGATIVE NEGATIVE 11/23/2017 [facility] Urine human chorionic gonadotropin (hCG) detection NEGATIVE NEGATIVE 10/23/2017 [facility] BNP Bld-[facility] 2885.4 0 - 100 09/13/2017 [facility] Urine color determination YELLOW YELLOW 09/12/2017 [facility] Urine clarity CLEAR CLEAR 09/12/2017 [facility] Specific gravity of Urine by Test strip 1.015 1.010 - 1.025 09/12/2017 [facility] Urine pH measurement by automated test strip 7 5 - 7 09/12/2017 [facility] Urine leukocyte esterase detection by dipstick NEGATIVE NEGATIVE 09/12/2017 [facility] Urine nitrite detection NEGATIVE NEGATIVE 09/12/2017 [facility] Urine protein measurement by test strip (mass/volume) 3+ NEGATIVE 09/12/2017 [facility] Urine glucose detection NEGATIVE NEGATIVE 09/12/2017 [facility] Urine ketones detection by automated test strip NEGATIVE NEGATIVE 09/12/2017 [facility] Urine urobilinogen measurement by test strip (mass/volume) 0.2 0.2 - 1 09/12/2017 [facility] Urine total bilirubin measurement (mass/volume) NEGATIVE NEGATIVE 09/12/2017 [facility] Urine erythrocytes detection 1+ NEGATIVE 09/12/2017 [facility] Automated urine sediment leukocyte count by microscopy (number/high power field) 6-10 0 - 5 09/12/2017 [facility] Erythrocytes detection in urine sediment by light microscopy 6-10 0 - 5 09/12/2017 [facility] Bacteria detection in urine sediment by light microscopy RARE NONE 09/12/2017 [facility] Epithelial cells detection in urine sediment by light microscopy MODERATE NONE 09/12/2017 [facility] Mucus detection in urine sediment by light microscopy FEW RARE 09/12/2017 [facility] Serum hepatitis B virus surface antibody assay by radioimmunoassay (units/volume) 469.5 Immunity>9.9 09/12/2017 [facility] Serum or plasma hepatitis B virus core antibody detection by immunoassay Negative Negative 09/12/2017 [facility] Serum or plasma hepatitis B virus surface antigen detection by immunoassay Negative Negative 09/12/2017 [facility] Phosphorus measurement 3.6 2.3 - 4.7 09/12/2017 [facility] Serum or plasma levetiracetam measurement (mass/volume) 18.2 10.0 - 40.0 09/12/2017 [facility] Serum or plasma phenytoin measurement (mass/volume) 1.30 10 - 20 09/11/2017 [facility] Blood culture NO GROWTH AFTER 5 DAYS, FINAL REPORT 09/11/2017 [facility] Hemoglobin A1c Percent 7.4 4.0 - 7.0 09/10/2017 [facility] Serum or plasma iron measurement (mass/volume) 37 50 - 170 09/10/2017 [facility] Serum or plasma iron binding capacity measurement (mass/volume) 165 261 - 478 09/10/2017 [facility] Serum or plasma iron saturation measurement (mass fraction) 22 15 - 50 09/10/2017 [facility] Serum or plasma transferrin measurement (mass/volume) 118 180 - 382 09/10/2017 [facility] Blood platelets count by estimate (number/volume) MODERATELY DECREASED 09/09/2017 [facility] Platelet morphology NORMAL 09/09/2017 [facility] Blood hypochromia detection by light microscopy MODERATE 09/09/2017 [facility] Blood poikilocytosis detection by light microscopy SLIGHT 09/09/2017 [facility] Blood anisocytosis detection by light microscopy SLIGHT 09/09/2017 [facility] RBC morphology ABNORMAL 09/09/2017 [facility] Prothrombin time (PT) in platelet poor plasma by coagulation assay 16.8 11.9 - 14.5 07/12/2017 [facility] INR in Platelet poor plasma by Coagulation assay 1.48 07/12/2017 [facility] Serum hepatitis B virus e antigen detection by enzyme immunoassay Negative Negative 07/10/2017 [facility] Qualitative serum or plasma hepatitis B virus e antibody by enzyme immunoassay Negative Negative 07/09/2017 [facility] Serum or plasma chorionic gonadotropin measurement (mass/volume) < 1.20 0 - 10 07/08/2017 [facility] Yeast detection in urine sediment by light microscopy MODERATE NONE 07/07/2017 [facility] Activated partial thromboplastin time (aPTT) in platelet poor plasma bycoagulation assay 31.8 23.8 - 35.5 07/05/2017 [facility] Serum or plasma thyrotropin measurement by detection limit <=0.005 miu/l (units/volume) 1.112 0.350 - 4.940 07/05/2017 [facility] Urine opiates screening test POSITIVE NEGATIVE 07/05/2017 [facility] Barbiturates screen, urine POSITIVE NEGATIVE 07/05/2017 [facility] Urine phencyclidine detection by screening method NEGATIVE NEGATIVE 07/05/2017 [facility] Urine amphetamines detection by screen method > 1000 ng/mL NEGATIVE NEGATIVE 07/05/2017 [facility] Urine Methamphetamines Screen NEGATIVE NEGATIVE 07/05/2017 [facility] Urine benzodiazepines detection by screening method POSITIVE NEGATIVE 07/05/2017 [facility] Urine cocaine measurement (mass/volume) NEGATIVE NEGATIVE 07/05/2017 [facility] Urine cannabinoids detection by screening method NEGATIVE NEGATIVE 07/05/2017 [facility] Urine methadone screen NEGATIVE NEGATIVE 07/05/2017 [facility] Amorphous sediment detection in urine sediment by light microscopy RARE FEW 07/05/2017 [facility] Fibrin D-dimer DDU measurement in platelet poor plasma (mass/volume) 0.41 0.00 - 0.45 07/02/2017 [facility] Serum or plasma phospholipid measurement (mass/volume) 225 06/06/2017 [facility] Stool gastrointestinal hemoglobin detection POSITIVE NEGATIVE 06/06/2017 [facility] Differential Total Cells Counted 100 06/03/2017 [facility] Manual blood neutrophils/100 leukocytes 71 40 - 74 06/03/2017 [facility] Manual blood lymphocytes/100 leukocytes 20 19 - 48 06/03/2017 [facility] Manual blood monocytes/100 leukocytes 4 3.4 - 9.0 06/03/2017 [facility] Manual blood eosinophil count as percentage of total leukocytes 5 0 - 7 06/03/2017 [facility] Blood polychromasia detection by light microscopy FEW 06/03/2017 [facility] Serum or plasma ferritin measurement (mass/volume) 956.34 4.63 - 204.00 06/01/2017 [facility] Serum or plasma hepatitis A virus IgM antibody detection by immunoassay Negative 05/31/2017 [facility] Serum or plasma hepatitis B virus core IgM antibody detection by immunoassay Negative 05/31/2017 [facility] Serum hepatitis C virus antibody detection 0.1 05/31/2017 [facility] Transitional cells detection in urine sediment by light microscopy FEW NONE 05/30/2017 [facility] Renal epithelial cells detection in urine sediment by light microscopy FEW NONE 05/30/2017 [facility] Bacterial urine culture Urine Culture [facility] Pathology Reports No Data Provided for This Section Diagnostic Reports No Data Provided for This Section Consultation Notes No Data Provided for This Section Discharge Summaries No Data Provided for This Section History and Physicals No Data Provided for This Section Vital Signs No Data Provided for This Section Encounters Location Location Details Encounter Type Encounter Number Reason For Visit Attending Provider ADM Date DC Date Status Source Discharged Inpatient [id number] JOHN BAHENA MD 05/30/2017 06/03/2017 [facility] Departed Emergency Room [id number] RY DRAPER MD 06/05/2017 06/05/2017 [facility] Departed Emergency Room [id number] MIREILLE AMOR MD 06/06/2017 06/07/2017 [facility] Discharged Inpatient (obs) [id number] JOHN BAHENA MD 06/25/2017 06/27/2017 [facility] Discharged Inpatient [id number] JOHN BAHENA MD 06/29/2017 06/30/2017 [facility] Discharged Inpatient [id number] JOHN BAHENA MD 07/02/2017 07/04/2017 [facility] Departed Emergency Room [id number] INA ELIAS 07/05/2017 07/05/2017 [facility] Discharged Inpatient [id number] JOHN BAHENA MD 07/10/2017 07/14/2017 [facility] Discharged Inpatient (obs) [id number] JOHN BAHENA MD 08/02/2017 08/04/2017 [facility] Discharged Inpatient (obs) [id number] JOHN BAHENA MD 09/08/2017 09/10/2017 [facility] Discharged Inpatient [id number] JOHN BAHENA MD 09/11/2017 09/13/2017 [facility] Departed Emergency Room [id number] SAM BLACK MD 09/14/2017 09/14/2017 [facility] Departed Emergency Room [id number] RY DRAPER MD 09/16/2017 09/16/2017 [facility] Departed Emergency Room [id number] JOSE F DOZIER MD 10/23/2017 10/23/2017 [facility] Departed Emergency Room [id number] MIREILLE AMOR MD 11/23/2017 11/23/2017 [facility] Departed Emergency Room [id number] JIA AREVALO MD 11/23/2017 11/23/2017 [facility] Departed Emergency Room [id number] SAM BLACK MD 02/23/2018 02/23/2018 [facility] Departed Emergency Room [id number] KELSEA JAFFE MD 02/27/2018 02/27/2018 [facility] Departed Emergency Room [id number] GALEN SALINAS MD 10/17/2018 10/17/2018 [facility] Departed Emergency Room [id number] SAM EATON MD 10/18/2018 10/18/2018 [facility] Departed Emergency Room [id number] RJ PINON MD 10/20/2018 10/20/2018 [facility] Procedures Procedure Code Date Perfomer Comments Source Computed tomography of brain without radiopaque contrast [id number] 02/23/2018 [facility] PERFORMANCE OF URINARY FILTRATION, <6 HRS/DAY [id number] 09/12/2017 [facility] CT of abdomen and pelvis without contrast [id number] 09/11/2017 [facility] Computed tomography of brain without radiopaque contrast [id number] 09/11/2017 [facility] BLOOD TRANSFUSION SERVICE [id number] 09/08/2017 [facility] HEMODIALYSIS ONE EVALUATION [id number] 09/08/2017 [facility] Computed tomography of brain without radiopaque contrast [id number] 09/08/2017 [facility] Computed tomography of cervical spine without contrast [id number] 09/08/2017 [facility] Unsched dialysis ESRD pt hos [id number] 08/02/2017 [facility] INSERTION OF FEEDING DEVICE INTO JEJUNUM, ENDO [id number] 07/12/2017 [facility] PERFORMANCE OF URINARY FILTRATION, <6 HRS/DAY [id number] 07/10/2017 [facility] EXCISION OF STOMACH, PYLORUS, ENDO, DIAGN [id number] 07/09/2017 [facility] US abdomen complete [id number] 06/30/2017 [facility] PERFORMANCE OF URINARY FILTRATION, <6 HRS/DAY [id number] 06/29/2017 KATERYNA [facility] CT of abdomen and pelvis without contrast [id number] 06/29/2017 JADA [facility] CT of abdomen and pelvis without contrast [id number] 06/05/2017 BONNY [facility] TRANSFUSE NONAUT RED BLOOD CELLS IN PERIPH VEIN, PERC [id number] 06/03/2017 [facility] PERFORMANCE OF URINARY FILTRATION, <6 HRS/DAY [id number] 06/03/2017 [facility] INSERTION OF INFUSION DEV INTO SUP VENA CAVA, PERC APPROACH [id number] 05/31/2017 [facility] FLUOROSCOPY OF OTHER VEINS USING LOW OSMOLAR CONTRAST [id number] 05/31/2017 [facility] REMOVAL OF INFUSION DEVICE FROM UPPER VEIN, CORE SUCKER APPROACH [id number] 05/31/2017 [facility] INSERT OF TUNNEL VAD INTO CHEST SUBCU/FASCIA, PERC APPROACH [id number] 05/31/2017 [facility] PERFORMANCE OF URINARY FILTRATION, <6 HRS/DAY [id number] 05/31/2017 [facility] X-ray of chest, single view [id number] 05/30/2017 [facility] Assessment and Plan No Data Provided for This Section Plan of Care Plan of Care Date Source Discharge Date 10/20/18 2:39am Disposition HOME, SELF-CARE Condition at Discharge Stable Instructions/Education Provided Anemia Contusion Diarrhea - Adult Ear Pain - Adult Hyperglycemia Vomiting - Adult Forms Provided Work/School Excuse Prescriptions See Medication Section Referrals JOHN BAHENA MD Address: [address] [place] [id number] Note: Please follow up with Dr Church in 3 days Additional Instructions/Education Be sure to follow up with your dialysis center on Saturday as scheduled for dialysis. Use the suppositories as needed for vomiting You may take Tylenol for pain in the leg as this is the safest medication as long as you are not allergic to it. Apply cold packs to affected leg for 10 minutes 4 times a day for 48 hours this will help with the pain 10/20/2018 [facility] Discharge Date 02/27/18 9:42pm Disposition HOME, SELF-CARE Condition at Discharge Stable Instructions/Education Provided Chest Pain - Chest Wall Hypertension Forms Provided Work/School Excuse Prescriptions See Medication Section Referrals JOHN BAHENA MD Address: [address] [place] [address] Additional Instructions/Education 1. FOLLOW UP FOR SCHEDULED DIALYSIS TREATMENT TOMORROW. 2. FOLLOW UP WITH YOUR PCP TOMORROW. 3. RETURN TO ED IF SYMPTOMS WORSEN OR HAVE ANY CONCERNS. 02/27/2018 [facility] Social History Social History Date Source Social History Problem Response Recorded Date/Time Onset [...] Status Start Date Stop Date Never Smoker 10/20/2018 [facility] Family History Value Date Source Relationship Condition Age at Onset Recorded Date/Time 33 Father FH: kidney disease Not Recorded 06/25/2017 11:29pm 33 Father FH: liver disease Not Recorded 06/25/2017 11:29pm 33 Father Family history of diabetes mellitus 30's - 40 07/01/2014 1:03pm 33 Father Family history of hypertension 30's - 40 07/01/2014 1:03pm 32 Mother Family history of hypertension 40's - 50 07/01/2014 1:03pm 10/20/2018 [facility] Relationship Condition Age at Onset Recorded Date/Time 33 Father FH: kidney disease Not Recorded 06/25/2017 11:29pm 33 Father FH: liver disease Not Recorded 06/25/2017 11:29pm 33 Father Family history of diabetes mellitus 30's - 40 07/01/2014 1:03pm 33 Father Family history of hypertension 30's - 40 07/01/2014 1:03pm 32 Mother Family history of hypertension 40's - 50 07/01/2014 1:03pm 02/27/2018 [facility] Advance Directives Order Name Results Value Date Source Advance Directives Advance Directives Directive Response Recorded Date/Time Does the patient have an advance directive? Yes 11/23/17 3:46pm If yes, is advance directive on file with [facility]? No 09/11/17 8:00pm If not on file with [facility] will patient provide a copy? Yes 11/23/17 2:24am 10/20/2018 [facility] Advance Directives Advance Directives Directive Response Recorded Date/Time Does the patient have an advance directive? Yes 11/23/17 3:46pm If yes, is advance directive on file with [facility]? No 09/11/17 8:00pm If not on file with [facility] will patient provide a copy? Yes 11/23/17 2:24am Do you have a Directive to Physician? Yes 02/27/18 2:07pm Do you have a Medical Power of Seismic Prospecting Observer? Yes 02/27/18 2:07pm Do you have an out of hospital Do Not Resuscitate Order? No 02/27/18 2:07pm Do you have any special needs we should be aware of? U 02/27/18 2:07pm Do you have a support person here with you today? Yes 02/27/18 2:07pm Did patient receive Notice of Privacy Practices? Yes 02/27/18 2:07pm Did patient receive patient rights and responsibilities? Yes 02/27/18 2:07pm 02/27/2018 [facility] Functional Status No Data Provided for This Section
[2018-11-12] MEDS ORDERED: DIPHENHYDRAMINE HCL INJ 50 MG/ML VIAL IM ONE (02:45)
[2018-11-12] MEDS ORDERED: LORAZEPAM INJ 2 MG/ML VIAL IM ONE (03:45)
--- NOTE | 2018-11-12 04:25 | Diagnostic Imaging Report ---
EXAM: CT Abdomen and Pelvis WITHOUT contrast INDICATION: Nausea vomiting and diarrhea x2 weeks abdominal pain x3 days, epigastric and left lower quadrant pain COMPARISON: Abdominal CT 10/18/2018. TECHNIQUE: Abdomen and pelvis were scanned utilizing a multidetector helical scanner from the lung base to the pubic symphysis without administration of IV contrast. Absence of intravenous contrast decreases sensitivity for detection of focal lesions and vascular pathology. Coronal and sagittal reformations were obtained. Routine protocol was performed. IV CONTRAST: None ORAL CONTRAST: None COMPLICATIONS: None RADIATION DOSE: Total DLP: 555 mGy*cm Estimated effective dose: (DLP x 0.015 x size factor) mSv CTDIvol has been reviewed. It is below the limits set by the Radiation Protocol Committee (RPC). Dose modulation, iterative reconstruction, and/or weight based adjustment of the mA/kV was utilized to reduce the radiation dose to as low as reasonably achievable. FINDINGS: LINES and TUBES: Partially visualized superior approach central venous catheter with tip in the right atrium. Left chest wall subcutaneous cardiac device in place.. LOWER THORAX: Mild cardiomegaly. Subtle groundglass opacities lobes. HEPATOBILIARY: Stable splenomegaly. No focal hepatic lesions. No biliary ductal dilation. GALLBLADDER: Removed. SPLEEN: No splenomegaly. PANCREAS: No focal masses or ductal dilatation. ADRENALS: No adrenal nodules KIDNEYS/URETERS: Bilateral renal atrophy. No hydronephrosis. No cystic or solid mass lesions. No stones. GI TRACT: No abnormal distention, wall thickening, or evidence of bowel obstruction. Moderate stool burden in the colon. Appendix is normal. PELVIC ORGANS/BLADDER: Mild circumferential bladder wall thickening. Trace air in the bladder lumen.. LYMPH NODES: No lymphadenopathy. VESSELS: Unremarkable. PERITONEUM / RETROPERITONEUM: No free air or fluid. BONES: Unremarkable. SOFT TISSUES: There is diffuse anarsarca. There is a fat containing para-umbilical hernia. IMPRESSION: 1. Moderate colonic stool burden. Correlate for constipation. 2. Cardiomegaly and bilateral renal atrophy with findings of volume overload including anasarca and mild pulmonary edema. 3. Findings suggestive of urinary bladder cystitis. Trace air in the bladder lumen, correlate for recent catheterization. Signed by: Tez Gillespie DO on 11/12/2018 4:21 AM
[2018-11-12] MEDS ORDERED: FUROSEMIDE INJ 10 MG/ML 4 ML VIAL ONE (04:40)
[2018-11-12] MEDS ORDERED: FUROSEMIDE INJ 10 MG/ML 4 ML VIAL IV ONE (04:45)
[2018-11-12] MEDS ORDERED: HEPARIN SOD (PORCINE) 1000 UNIT/ML 10ML MDV INJ ONE ×2 (04:45→05:00)
[2018-11-12 05:08] VITALS: BP 126/90
--- NOTE | 2018-11-12 05:22 | NUR ---
POET ACCESS USING PROFILING MACHINE SETUP OPERATOR. PT THEN DC'D AND PACKED WITH 250UNITS/2.5 ML OF HEPARIN AND 2.5 ML OF SALINE PER HOSPITAL POLICY. PT TOLORATED WELL.
== END 2018-11-12 06:37 | disposition home or self-care (01) ==
LOC: FSED 02:12
DX: R10.84 Generalized abdominal pain (principal); R11.2 Nausea with vomiting, unspecified; R19.7 Diarrhea, unspecified; A08.4 Viral intestinal infection, unspecified; G24.09 Other drug induced dystonia; T43.3X5A Adverse effect of phenothiazine antipsychotics and neuroleptics, initial encounter
CPT/HCPCS: 74176; 80053; 85025; 96372; 96374; 99283; J1200; J1642; J1940; J2060

== ENCOUNTER 2018-11-22 16:51 | Emergency (ER) | payer OTHER ==
[~2018-11-22] VITALS: Ht 160 cm; Wt 56.2 kg
--- OUTSIDE RECORDS SUMMARY | 2018-11-22 16:56 | XMS REPORT | Clinical Summary ---
Author Author [facility] Organization [facility] Address Unknown Phone Unavailable Care Team Providers Care Composite Layup Worker Name Role Phone Ger Mukherjee MD [...] 1,000 1 each 0 IVPB 1 gram ADD-Hinkle mg into a 8 in 100 mLIndications: [...] Elevated brain natriuretic peptide (BNP) level 01/26/2018 [facility] General Internal Medicine - Encounter 02/18/2018 [...] unspecified CKD stage; Leg swelling; Anxiety 12/27/2017 [facility] Internal Medicine - Encounter 01/03/2018 after 11/21/2017 Immunizations Name Dates Previously Given Next Due [...] Taken Vital Sign Reading 02/20/2018 2:16 AM TECHNICIAN AUTOMATED EQUIPMENT Blood Pressure 130/73 02/20/2018 2:16 AM TECHNICIAN AUTOMATED EQUIPMENT Pulse 97 02/19/2018 8:39 PM TECHNICIAN AUTOMATED EQUIPMENT Temperature 36.5 C (97.7 F) 02/20/2018 2:16 AM TECHNICIAN AUTOMATED EQUIPMENT Respiratory Rate 18 02/20/2018 2:16 AM TECHNICIAN AUTOMATED EQUIPMENT Oxygen Saturation 98% - Inhaled Oxygen - Concentration 01/31/2018 11:01 AM CDT Weight 67.5 kg (148 lb 14.4 oz) 02/19/2018 8:52 PM TECHNICIAN AUTOMATED EQUIPMENT Height 160 cm (5' 3") 12/28/2017 5:56 [...] Leads Defibrilla tors & Leads 10/12/2020 [place] [id number] IM / / [id number] Set Cathztn Hmodial Lngtrm Accs Surgical N/A: N/A ARROW 15fr 24cm Edge Simplicity - Implants; [employer] [id number] Expanders; [employer] Implanted: 01/02/2018 (Quantity not Extenders; on file) Surgical Wires Procedures Comments Procedure Name Priority Date/Time Associated Diagnosis CT LUMBAR SPINE WO STAT 02/20/2018 CONTRAST 1:01 AM TECHNICIAN AUTOMATED EQUIPMENT CT HEAD WO CONTRAST STAT 02/20/2018 12:56 AM TECHNICIAN AUTOMATED EQUIPMENT XR CHEST 1 VW PORTABLE STAT 02/20/2018 12:02 AM TECHNICIAN AUTOMATED EQUIPMENT HCG QUALITATIVE, SERUM STAT 02/19/2018 SCREEN 11:45 PM TECHNICIAN AUTOMATED EQUIPMENT PROTHROMBIN TIME WITH INR STAT 02/19/2018 10:39 PM TECHNICIAN AUTOMATED EQUIPMENT PARTIAL THROMBOPLASTIN STAT 02/19/2018 TIME (PTT) 10:39 PM TECHNICIAN AUTOMATED EQUIPMENT CREATINE KINASE, TOTAL STAT 02/19/2018 (CPK) 10:39 PM TECHNICIAN AUTOMATED EQUIPMENT ESTIMATED GFR STAT 02/19/2018 10:39 PM TECHNICIAN AUTOMATED EQUIPMENT B NATRIURETIC PEPTIDE STAT 02/19/2018 10:39 PM TECHNICIAN AUTOMATED EQUIPMENT TROPONIN STAT 02/19/2018 10:39 PM TECHNICIAN AUTOMATED EQUIPMENT BETA HYDROXYBUTYRATE STAT 02/19/2018 10:39 PM TECHNICIAN AUTOMATED EQUIPMENT COMPREHENSIVE METABOLIC STAT 02/19/2018 PANEL 10:39 PM TECHNICIAN AUTOMATED EQUIPMENT HC COMPLETE BLD COUNT STAT 02/19/2018 W/AUTO DIFF 10:39 PM TECHNICIAN AUTOMATED EQUIPMENT ECG ED PRELIMINARY Routine 02/19/2018 INTERPRETATION 9:56 PM TECHNICIAN AUTOMATED EQUIPMENT POC GLUCOSE Routine 02/19/2018 9:36 PM TECHNICIAN AUTOMATED EQUIPMENT ECG 12-LEAD STAT 02/19/2018 9:07 PM TECHNICIAN AUTOMATED EQUIPMENT POC GLUCOSE Routine 02/18/2018 1:46 PM TECHNICIAN AUTOMATED EQUIPMENT POC GLUCOSE Routine 02/18/2018 12:19 PM TECHNICIAN AUTOMATED EQUIPMENT POC GLUCOSE Routine 02/18/2018 7:44 AM TECHNICIAN AUTOMATED EQUIPMENT POC GLUCOSE Routine 02/18/2018 7:03 AM TECHNICIAN AUTOMATED EQUIPMENT POC GLUCOSE Routine 02/18/2018 1:28 AM TECHNICIAN AUTOMATED EQUIPMENT POC GLUCOSE Routine 02/17/2018 9:13 PM TECHNICIAN AUTOMATED EQUIPMENT POC GLUCOSE Routine 02/17/2018 5:37 PM TECHNICIAN AUTOMATED EQUIPMENT ULTRAFILTRATION Routine 02/17/2018 5:07 PM TECHNICIAN AUTOMATED EQUIPMENT POC GLUCOSE Routine 02/17/2018 3:38 PM TECHNICIAN AUTOMATED EQUIPMENT POC GLUCOSE Routine 02/17/2018 1:24 PM TECHNICIAN AUTOMATED EQUIPMENT POC GLUCOSE Routine 02/17/2018 12:14 PM TECHNICIAN AUTOMATED EQUIPMENT POC GLUCOSE Routine 02/17/2018 9:43 AM TECHNICIAN AUTOMATED EQUIPMENT POC GLUCOSE Routine 02/17/2018 8:01 AM TECHNICIAN AUTOMATED EQUIPMENT SMEAR REVIEW Routine 02/17/2018 4:30 AM TECHNICIAN AUTOMATED EQUIPMENT HC COMPLETE BLD COUNT Routine 02/17/2018 W/AUTO DIFF 4:30 AM TECHNICIAN AUTOMATED EQUIPMENT POC GLUCOSE Routine 02/17/2018 4:14 AM TECHNICIAN AUTOMATED EQUIPMENT ESTIMATED GFR Routine 02/17/2018 4:00 AM TECHNICIAN AUTOMATED EQUIPMENT BASIC METABOLIC PANEL Routine 02/17/2018 4:00 AM TECHNICIAN AUTOMATED EQUIPMENT POC GLUCOSE Routine 02/16/2018 11:06 PM TECHNICIAN AUTOMATED EQUIPMENT POC GLUCOSE Routine 02/16/2018 8:45 PM TECHNICIAN AUTOMATED EQUIPMENT POC GLUCOSE Routine 02/16/2018 6:20 PM TECHNICIAN AUTOMATED EQUIPMENT POC GLUCOSE Routine 02/16/2018 5:35 PM TECHNICIAN AUTOMATED EQUIPMENT HEMODIALYSIS Routine 02/16/2018 2:21 PM TECHNICIAN AUTOMATED EQUIPMENT POC GLUCOSE Routine 02/16/2018 1:37 PM TECHNICIAN AUTOMATED EQUIPMENT POC GLUCOSE Routine 02/16/2018 12:29 PM TECHNICIAN AUTOMATED EQUIPMENT POC GLUCOSE Routine 02/16/2018 7:57 AM TECHNICIAN AUTOMATED EQUIPMENT POC GLUCOSE Routine 02/15/2018 9:54 PM CDT [...] CDT ECHOCARDIOGRAM WITH Routine 01/29/2018 AGITATED SALINE (84378) 10:05 AM CDT POC GLUCOSE Routine 01/29/2018 [...] MMODE SPECTRAL 9:36 AM CDT COLOR DOPPLER ([id number]) POC GLUCOSE Routine 12/30/2017 7:43 AM CDT [...] 12-LEAD STAT 12/27/2017 9:43 PM CDT after 11/21/2017 Results * CT Lumbar Spine Wo Contrast (02/20/2018 1:01 AM TECHNICIAN AUTOMATED EQUIPMENT) Specimen Narrative Performed At EXAMINATION: CT LUMBAR [...] acute osseous abnormality of the lumbar spine. [id number] Procedure Note Hm Interface, Radiology Results Incoming - 02/20/2018 1:10 AM TECHNICIAN AUTOMATED EQUIPMENT EXAMINATION: CT LUMBAR SPINE WO CONTRAST CLINICAL [...] acute osseous abnormality of the lumbar spine. [id number] Performing Organization Address City/State/Zipcode Phone Number [facility] [address] [place] [address] * CT Head Wo Contrast (02/20/2018 12:56 AM TECHNICIAN AUTOMATED EQUIPMENT) Only the most recent of 3 results [...] normal. IMPRESSION: No acute intracranial abnormality identified. [id number] Procedure Note Interface, Radiology Results Incoming - 02/20/2018 1:07 AM TECHNICIAN AUTOMATED EQUIPMENT EXAMINATION: CT HEAD WO CONTRAST CLINICAL HISTORY: [...] normal. IMPRESSION: No acute intracranial abnormality identified. [facility]-[id number] Performing Organization Address City/State/Zipcode Phone Number [facility] [address] [place] [address] * XR Chest 1 Vw Portable (02/20/2018 12:02 AM TECHNICIAN AUTOMATED EQUIPMENT) Only the most recent of 4 results [...] lung volume with vascular crowding or congestion. [id number] Procedure Note Interface, Radiology Results Incoming - 02/20/2018 12:08 AM TECHNICIAN AUTOMATED EQUIPMENT Examination: XR CHEST 1 VW PORTABLE Clinical [...] lung volume with vascular crowding or congestion. [id number] Performing Organization Address City/[facility]/[place] [address] * hCG qualitative, serum screen (02/19/2018 11:45 PM TECHNICIAN AUTOMATED EQUIPMENT) Only the most recent of 2 results within the time period is included. [facility] hCG NegativeComment: Sensitivity [facility] DEPARTMENT qualitative, of HCG test: 25 mIU/mL OF PATHOLOGY serum AND GENOMIC MEDICINE Specimen Blood Performing Organization Address [facility] Phone Number [facility] DEPARTMENT OF [address] [place] [address] PATHOLOGY AND GENOMIC MEDICINE * Estimated GFR (02/19/2018 10:39 PM TECHNICIAN AUTOMATED EQUIPMENT) Only the most recent of 18 results within the time period is included. [facility] Estimated GFR 10 (A) mL/min/1.73 m2 [facility] DEPARTMENT Comment: OF PATHOLOGY CatergoryUnitsInte AND GENOMIC rpretation MEDICINE G1 >=90 Normal or high G2 60-89Mildly decreased [id number] Mildly to moderately decreased F2h39-58 Moderately to severely decreased G4 15-29Severely decreased G5 <15Kidney failure The eGFR was calculated using the Chronic Kidney Disease Epidemiology Collaboration (CKD-EPI) equation. Interpretation is based on recommendations of the National Kidney Foundation-Kidney Disease Outcomes Quality Initiative (NKF-KDOQI) published in 2014. Specimen Plasma specimen Performing Organization Address City/[facility] Phone Number [facility] DEPARTMENT OF [address] [place] [address] PATHOLOGY AND GENOMIC MEDICINE * Beta hydroxybutyrate (02/19/2018 10:39 PM TECHNICIAN AUTOMATED EQUIPMENT) [facility] Beta 0.07 0.02 - 0.27 mmol/L [facility] hydroxybutyrate OF PATHOLOGY AND GENOMIC MEDICINE Specimen Serum Performing Organization Address [facility] Phone Number [facility] DEPARTMENT OF [address] [place] [address] PATHOLOGY AND GENOMIC MEDICINE * Troponin (02/19/2018 10:39 PM TECHNICIAN AUTOMATED EQUIPMENT) Only the most recent of 7 results within the time period is included. Pathologist [facility] Troponin <0.30 0.00 - 0.30 ng/mL [facility] DEPARTMENT Comment: OF PATHOLOGY 0.30 - 1.49 AND GENOMIC ng/mlMa MEDICINE indicate increased risk of acute coronary syndrome. >=1.5 ng/ml Consistent with acute myocardial infarction. The diagnostic value of a single normal or non-diagnostic result is questionable.Serial samples at 2-6 hour intervals are required to rule out acute myocardial injury. Specimen Plasma specimen Performing Organization Address City/[facility]/Zipcode Phone Number [facility] DEPARTMENT OF [address] [place] [address] PATHOLOGY AND [facility] * Partial thromboplastin time, activated (02/19/2018 10:39 PM TECHNICIAN AUTOMATED EQUIPMENT) Only the most recent of 4 results within the time period is included. Pathologist [facility] PTT 44.7 (H) 23.0 - 36.0 sec [facility] DEPARTMENT Comment: OF PATHOLOGY PTT therapeutic range for AND GENOMIC unfractionated heparin is MEDICINE 61.0-112.0 seconds which corresponds to Anti-Xa 0.3-0.7 U/ml. Specimen Blood Performing Organization Address [facility] Phone Number [facility] [place] [address] PATHOLOGY AND [facility] * Prothrombin time with INR (02/19/2018 10:39 PM TECHNICIAN AUTOMATED EQUIPMENT) Only the most recent of 4 results within the time period is included. Pathologist [facility] Prothrombin 15.7 (H) 11.5 - 14.5 sec [facility] DEPARTMENT time OF PATHOLOGY AND [employer] MEDICINE INR 1.3 [facility] DEPARTMENT Comment: OF PATHOLOGY The International Normalized AND GENOMIC Ratio (INR) is a therapeutic MEDICINE monitoring tool for patients who are stable on oral anticoagulant therapy. An INR of 2.0-3.0 is suggested for deep vein thrombosis/pulmonary embolism. Specimen Blood Performing Organization Address City/[facility]/Zipcode Phone Number [facility] [place] [address] PATHOLOGY AND [facility] MEDICINE * CBC with platelet and differential (02/19/2018 10:39 PM TECHNICIAN AUTOMATED EQUIPMENT) Only the most recent of 13 results within the time period is included. Pathologist [facility] WBC 5.22 4.50 - 11.00 k/uL [facility] DEPARTMENT OF PATHOLOGY AND GENOMIC MEDICINE RBC 4.05 (L) 4.20 - 5.50 m/uL [facility] DEPARTMENT OF PATHOLOGY AND GENOMIC MEDICINE HGB 11.5 (L) 12.0 - 16.0 g/dL [facility] DEPARTMENT OF PATHOLOGY AND GENOMIC MEDICINE HCT 39.6 37.0 - 47.0 % [facility] DEPARTMENT OF PATHOLOGY AND GENOMIC MEDICINE MCV 97.8 82.0 - 100.0 fL [facility] DEPARTMENT OF PATHOLOGY AND GENOMIC MEDICINE MCH 28.4 27.0 - 34.0 pg [facility] DEPARTMENT OF PATHOLOGY AND GENOMIC MEDICINE MCHC 29.0 (L) 31.0 - 37.0 g/dL [facility] DEPARTMENT OF PATHOLOGY AND GENOMIC MEDICINE RDW - SD 65.5 (H) 37.0 - 55.0 fL [facility] DEPARTMENT OF PATHOLOGY AND GENOMIC MEDICINE MPV 10.4 8.8 - 13.2 fL [facility] DEPARTMENT OF PATHOLOGY AND GENOMIC MEDICINE Platelet count 147 (L) 150 - 400 k/uL [facility] DEPARTMENT OF PATHOLOGY AND GENOMIC MEDICINE Nucleated RBC 0.00 /100 WBC [facility] DEPARTMENT OF PATHOLOGY AND GENOMIC MEDICINE Neutrophils 71.7 (H) 39.0 - 69.0 % [facility] DEPARTMENT OF PATHOLOGY AND GENOMIC MEDICINE Lymphocytes 17.6 (L) 25.0 - 45.0 % [facility] DEPARTMENT OF PATHOLOGY AND GENOMIC MEDICINE Monocytes 8.0 0.0 - 10.0 % [facility] DEPARTMENT OF PATHOLOGY AND GENOMIC MEDICINE Eosinophils 1.7 0.0 - 5.0 % [facility] DEPARTMENT OF PATHOLOGY AND GENOMIC MEDICINE Basophils 0.6 0.0 - 1.0 % [facility] DEPARTMENT OF PATHOLOGY AND GENOMIC MEDICINE Immature 0.4Comment: "Immature 0.0 - 1.0 % [facility] DEPARTMENT granulocytes granulocytes" (promyelocytes, OF PATHOLOGY myelocytes, metamyelocytes) AND GENOMIC MEDICINE Specimen Blood Performing Organization Address City/[facility]/Zipcode Phone Number [facility] DEPARTMENT OF [address] [place] [address] PATHOLOGY AND GENOMIC MEDICINE * B natriuretic peptide (02/19/2018 10:39 PM TECHNICIAN AUTOMATED EQUIPMENT) Only the most recent of 4 results within the time period is included. BNP 506 (H) 0 - 100 pg/mL [facility] DEPARTMENT OF PATHOLOGY AND GENOMIC MEDICINE Specimen Blood Performing Organization Address City/[facility]/Zipcode Phone Number [facility] DEPARTMENT [address] [address] PATHOLOGY AND GENOMIC MEDICINE * Creatine kinase, total (CPK) (02/19/2018 10:39 PM TECHNICIAN AUTOMATED EQUIPMENT) Pathologist [facility] Creatine kinase 40 26 - 192 U/L [facility] DEPARTMENT OF PATHOLOGY AND GENOMIC MEDICINE Specimen Plasma specimen Performing Organization Address City/State/Zipcode Phone Number [facility] DEPARTMENT OF [address] [place] [address] PATHOLOGY AND GENOMIC MEDICINE * Comprehensive metabolic panel (02/19/2018 10:39 PM TECHNICIAN AUTOMATED EQUIPMENT) Only the most recent of 8 results within the time period is included. Pathologist [facility] Sodium 137 135 - 148 mEq/L [facility] DEPARTMENT OF PATHOLOGY AND GENOMIC MEDICINE Potassium 3.9 3.5 - 5.0 mEq/L [facility] DEPARTMENT OF PATHOLOGY AND GENOMIC MEDICINE Chloride 98 98 - 112 mEq/L [facility] DEPARTMENT OF PATHOLOGY AND GENOMIC MEDICINE CO2 20 (L) 24 - 31 mEq/L [facility] DEPARTMENT OF PATHOLOGY AND GENOMIC MEDICINE Anion gap 19@ANIO (H) 7 - 15 mEq/L [facility] DEPARTMENT OF PATHOLOGY AND GENOMIC MEDICINE BUN 35 (H) 6 - 20 mg/dL [facility] DEPARTMENT OF PATHOLOGY AND GENOMIC MEDICINE Creatinine 5.83 (H) 0.50 - 0.90 mg/dL [facility] DEPARTMENT OF PATHOLOGY AND GENOMIC MEDICINE Glucose 138 (H) 65 - 99 mg/dL [facility] DEPARTMENT OF PATHOLOGY AND GENOMIC MEDICINE Calcium 9.0 8.3 - 10.2 mg/dL [facility] DEPARTMENT OF PATHOLOGY AND GENOMIC MEDICINE Protein 8.5 (H) 6.3 - 8.3 g/dL [facility] DEPARTMENT Comment: OF PATHOLOGY [place] AND GENOMIC 4.6-7.0 g/dL MEDICINE 1 week 4.4-7.6 g/dL 7 months-1year 5.1-7.3 g/dL 1-2 years5.6-7 .5 g/dL >3 years6.0-8 .0 g/dL 18-150 6.3-8.3 g/dL Albumin 2.6 (L) 3.5 - 5.0 g/dL [facility] DEPARTMENT OF PATHOLOGY AND GENOMIC MEDICINE A/G ratio 0.4 (L) 0.7 - 3.8 [facility] DEPARTMENT OF PATHOLOGY AND GENOMIC MEDICINE Alkaline 205 (H) 35 - 104 U/L [facility] DEPARTMENT phosphatase OF PATHOLOGY AND GENOMIC MEDICINE AST 29 10 - 35 U/L [facility] DEPARTMENT OF PATHOLOGY AND GENOMIC MEDICINE ALT 25 5 - 50 U/L [facility] DEPARTMENT OF PATHOLOGY AND GENOMIC MEDICINE Total bilirubin 0.3 0.0 - 1.2 mg/dL [facility] DEPARTMENT OF PATHOLOGY AND GENOMIC MEDICINE Specimen Plasma specimen Performing Organization Address City/[facility] Phone Number [facility] DEPARTMENT OF [address] [place] [address] PATHOLOGY AND GENOMIC MEDICINE * ECG ED Preliminary Interpretation - NOT AN ORDER (02/19/2018 9:56 PM TECHNICIAN AUTOMATED EQUIPMENT) Only the most recent of 2 results within the time period is included. Narrative Performed At Kourtney Sanchez MD 02/20/20185:40 PM ECG ED Preliminary Interpretation - Not an Order Performed by: KOURTNEY SANCHEZ Authorized by: KOURTNEY SANCHEZ ECG reviewed by ED Physician in the absence of a equipment cleaner and tester: yes Previous ECG: Previous ECG:Compared to current [...] normal * POC glucose (02/19/2018 9:36 PM TECHNICIAN AUTOMATED EQUIPMENT) Only the most recent of 165 results within the time period is included. POC glucose 148 (H) 65 - 99 mg/dL [facility] DEPARTMENT Comment: OF PATHOLOGY No Action Needed AND GENOMIC Meter ID: [id number] MEDICINE Automatic Head Sawyer: Roel Dorsey Specimen Performing Organization Address City/[facility] Phone Number [facility] DEPARTMENT OF [address] [place] [address] PATHOLOGY AND GENOMIC MEDICINE * ECG 12 lead (02/19/2018 9:07 PM TECHNICIAN AUTOMATED EQUIPMENT) Only the most recent of 4 results within the time period is included. Ventricular 101 [facility]USE rate Atrial rate 101 [facility] IN interval 186 [facility] QRSD interval 100 [facility] QT interval 392 [facility] QTC interval 508 [facility] MUSE P axis 1 58 [facility] MUSE QRS axis 1 -9 [facility] T wave axis 75 [facility]USE EKG impression Sinus tachycardia-Nonspecific [facility] MUSE ST and T wave abnormality-Abnormal ECG-In automated comparison with ECG of 26-JAN-2018 23:47,-Nonspecific T wave abnormality no longer evident in Inferior leads-T wave inversion no longer evident in Lateral leads- Specimen Performing Organization Address City/[facility] Phone Number [facility] MUSE [address] [place] [address] * Smear review (02/17/2018 4:30 AM TECHNICIAN AUTOMATED EQUIPMENT) Platelet slide Kenia adequate [facility] DEPARTMENT review OF PATHOLOGY AND GENOMIC MEDICINE Anisocytosis Moderate [facility] DEPARTMENT OF PATHOLOGY AND GENOMIC MEDICINE Polychromasia Moderate [facility] DEPARTMENT OF PATHOLOGY AND GENOMIC MEDICINE Ovalocytes Moderate [facility] DEPARTMENT OF PATHOLOGY AND GENOMIC MEDICINE Specimen Performing Organization Address [facility] Phone Number [facility] DEPARTMENT OF [address] [place], [place] [phone] PATHOLOGY AND GENOMIC MEDICINE * Basic metabolic panel (02/17/2018 4:00 AM TECHNICIAN AUTOMATED EQUIPMENT) Only the most recent of 10 results within the time period is included. Sodium 136 135 - 148 mEq/L [facility] DEPARTMENT OF PATHOLOGY AND GENOMIC MEDICINE Potassium 4.8 3.5 - 5.0 mEq/L [facility] DEPARTMENT OF PATHOLOGY AND GENOMIC MEDICINE Chloride 97 (L) 98 - 112 mEq/L [facility] DEPARTMENT OF PATHOLOGY AND GENOMIC MEDICINE CO2 22 (L) 24 - 31 mEq/L [facility] DEPARTMENT OF PATHOLOGY AND GENOMIC MEDICINE Anion gap 17@ANIO (H) 7 - 15 mEq/L [facility] DEPARTMENT OF PATHOLOGY AND GENOMIC MEDICINE BUN 32 (H) 6 - 20 mg/dL [facility] DEPARTMENT OF PATHOLOGY AND GENOMIC MEDICINE Creatinine 5.52 (H) 0.50 - 0.90 mg/dL [facility] DEPARTMENT OF PATHOLOGY AND GENOMIC MEDICINE Glucose 72 65 - 99 mg/dL [facility] DEPARTMENT OF PATHOLOGY AND GENOMIC MEDICINE Calcium 8.8 8.3 - 10.2 mg/dL [facility] DEPARTMENT OF PATHOLOGY AND GENOMIC MEDICINE Specimen Plasma specimen Performing Organization Address [facility]/Zipcode Phone Number [facility] DEPARTMENT OF [address] [place] [address] PATHOLOGY AND GENOMIC MEDICINE * CT Angiogram [...] axillary lymphadenopathy, stable when compared to prior. [id number] Procedure Note [facility], Radiology Results Incoming - 02/14/2018 7:17 PM [...] axillary lymphadenopathy, stable when compared to prior. [id number] Performing Organization Address City/[facility] Phone Number [place] [phone] [place] [address] * Magnesium level (02/14/2018 12:00 PM CDT) Only the most recent of 3 results within the time period is included. Magnesium 2.5 1.6 - 2.6 mg/dL [facility] DEPARTMENT OF PATHOLOGY AND GENOMIC MEDICINE Specimen Plasma specimen Performing Organization Address City/[facility] Phone Number [address] [address] PATHOLOGY AND GENOMIC MEDICINE * Phosphorus level (02/10/2018 4:56 AM CDT) Only the most recent of 2 results within the time period is included. Phosphorus 2.1 (L) 2.4 - 4.5 mg/dL [facility] DEPARTMENT OF PATHOLOGY AND GENOMIC MEDICINE Specimen Plasma specimen Performing Organization Address City/[facility] Phone Number [facility] [place] [address] PATHOLOGY AND GENOMIC MEDICINE * Free phenytoin level (02/10/2018 4:56 AM CDT) Phenytoin, free 0.49 (L) 1.00 - 2.00 ug/mL [facility] INC DEPARTMENT OF PATHOLOGY AND GENOMIC MEDICINE Specimen Blood Performing Organization Address [facility] Phone Number [facility] [place] [address] PATHOLOGY AND GENOMIC MEDICINE * Phenytoin level (02/10/2018 4:56 AM CDT) Only the most recent of 4 results within the time period is included. Phenytoin 3.5 (L) 10.0 - 20.0 ug/mL [facility] DEPARTMENT Comment: OF PATHOLOGY Therapeutic Range: AND GENOMIC 10 - 20 ug/mL MEDICINE Specimen Plasma specimen Performing Organization Address [facility] Phone Number [facility] [place] [address] PATHOLOGY AND GENOMIC MEDICINE * Sedimentation rate (02/08/2018 3:30 PM CDT) Only the most recent of 2 results within the time period is included. Sedimentation 38 (H) 0 - 20 mm/hr [facility] DEPARTMENT rate OF PATHOLOGY AND GENOMIC MEDICINE Specimen Blood Performing Organization Address [facility] Phone Number [facility] [place] [address] PATHOLOGY AND GENOMIC MEDICINE * C-reactive protein (02/08/2018 11:54 AM CDT) Only the most recent of 2 results within the time period is included. CRP 0.43 0.00 - 0.50 mg/dL [facility] DEPARTMENT OF PATHOLOGY AND GENOMIC MEDICINE Specimen Plasma specimen Performing Organization Address [facility] Phone Number [facility] [place] [address] PATHOLOGY AND GENOMIC MEDICINE * MRI Shoulder [...] SOFT TISSUES: Extensive periarticular soft tissue edema. [facility]-[id number] Procedure Note Interface, Radiology Results Incoming - [...] SOFT TISSUES: Extensive periarticular soft tissue edema. [facility]-[id number] Performing Organization Address City/State/Zipcode Phone Number [facility] [address] [place] [address] * MRI Cervical Spine Wo Contrast (02/07/2018 [...] IMPRESSION: No significant cervical spine abnormality identified. [facility]-[id number] Procedure Note Hm Interface, Radiology Results Incoming [...] IMPRESSION: No significant cervical spine abnormality identified. [id number] Performing Organization Address [facility]/Zipcode Phone Number [facility] [address] [place] [address] * MRI Brain Wo Contrast (02/07/2018 11:50 [...] unremarkable. IMPRESSION: No acute intracranial abnormality. [id number] Procedure Note Interface, Radiology Results Incoming - [...] unremarkable. IMPRESSION: No acute intracranial abnormality. [facility][id number] Performing Organization Address [facility] Phone Number [facility] [address] [place] [address] * NM Bone Scan 3 Phase (02/05/2018 [...] suggest osteomyelitis involving the proximal left humerus. [facility]-[id number] Procedure Note [facility], Radiology Results Incoming - 02/05/2018 1:36 PM [...] suggest osteomyelitis involving the proximal left humerus. [facility]-[id number] Performing Organization Address City/State/Zipcode Phone Number [facility] [address] [place] [address] * CBC hemogram (02/04/2018 11:30 AM CDT) Only the most recent of 3 results within the time period is included. WBC 3.45 (L) 4.50 - 11.00 k/uL [facility] DEPARTMENT OF PATHOLOGY AND GENOMIC MEDICINE RBC 3.26 (L) 4.20 - 5.50 m/uL [facility] DEPARTMENT OF PATHOLOGY AND GENOMIC MEDICINE HGB 9.0 (L) 12.0 - 16.0 g/dL [facility] DEPARTMENT OF PATHOLOGY AND GENOMIC MEDICINE HCT 31.3 (L) 37.0 - 47.0 % [facility] DEPARTMENT OF PATHOLOGY AND GENOMIC MEDICINE MCV 96.0 82.0 - 100.0 fL [facility] DEPARTMENT OF PATHOLOGY AND GENOMIC MEDICINE MCH 27.6 27.0 - 34.0 pg [facility] DEPARTMENT OF PATHOLOGY AND GENOMIC MEDICINE MCHC 28.8 (L) 31.0 - 37.0 g/dL [facility] DEPARTMENT OF PATHOLOGY AND GENOMIC MEDICINE RDW - SD 61.7 (H) 37.0 - 55.0 fL [facility] DEPARTMENT OF PATHOLOGY AND GENOMIC MEDICINE MPV 10.8 8.8 - 13.2 fL [facility] DEPARTMENT OF PATHOLOGY AND GENOMIC MEDICINE Platelet count 142 (L) 150 - 400 k/uL [facility] DEPARTMENT OF PATHOLOGY AND GENOMIC MEDICINE Nucleated RBC 0.00 /100 WBC [facility] DEPARTMENT OF PATHOLOGY AND GENOMIC MEDICINE Specimen Blood Performing Organization Address City/[facility] Phone Number [facility] OF [address] [place] [address] PATHOLOGY AND Zuz[employer]Che MEDICINE * Urine drugs of abuse screen (02/02/2018 1:41 PM CDT) Only the most recent of 2 results within the time period is included. Amphetamine Negative [facility] DEPARTMENT screen, urine OF PATHOLOGY AND GENOMIC MEDICINE Barbiturate Negative [facility] DEPARTMENT screen, urine OF PATHOLOGY AND GENOMIC MEDICINE Benzodiazepine Negative [facility] DEPARTMENT screen, urine OF PATHOLOGY AND GENOMIC MEDICINE Cannabinoid Negative [facility] DEPARTMENT screen, urine OF PATHOLOGY AND GENOMIC MEDICINE Cocaine screen, Negative [facility] DEPARTMENT urine OF PATHOLOGY AND GENOMIC MEDICINE Methadone Negative [facility] DEPARTMENT metabolite OF PATHOLOGY (EDDP), urine AND GENOMIC MEDICINE Opiates screen, Positive (A) [facility] DEPARTMENT urine OF PATHOLOGY AND GENOMIC MEDICINE Oxycodone Negative [facility] DEPARTMENT screen, urine OF PATHOLOGY AND GENOMIC MEDICINE Phencyclidine Negative [facility] DEPARTMENT screen, urine OF PATHOLOGY AND GENOMIC MEDICINE Tricyclic Negative [facility] DEPARTMENT screen, urine Comment: OF PATHOLOGY Drug [...] purposes only. Specimen Urine Performing Organization Address [facility] Phone Number [facility] [address] [place] [address] PATHOLOGY AND [employer]Che MEDICINE * Urinalysis, automated with microscopy (02/02/2018 1:41 PM CDT) Color, UA Dark Yellow [facility] DEPARTMENT OF PATHOLOGY AND GENOMIC MEDICINE Appearance, UA Hazy [facility] DEPARTMENT OF PATHOLOGY AND GENOMIC MEDICINE Specific 1.019 1.001 - 1.035 [facility] DEPARTMENT gravity, OF PATHOLOGY AND GENOMIC MEDICINE pH, UA 5.0 5.0 - 8.5 [facility] DEPARTMENT OF PATHOLOGY AND GENOMIC MEDICINE Protein, UA 2+ (A) Negative [facility] DEPARTMENT OF PATHOLOGY AND GENOMIC MEDICINE Glucose, UA Negative Negative [facility] DEPARTMENT OF PATHOLOGY AND GENOMIC MEDICINE Ketones, UA Negative Negative [facility] DEPARTMENT OF PATHOLOGY AND GENOMIC MEDICINE Bilirubin, UA Negative Negative [facility] DEPARTMENT OF PATHOLOGY AND GENOMIC MEDICINE Blood, UA Small (A) Negative [facility] DEPARTMENT OF PATHOLOGY AND GENOMIC MEDICINE Nitrite, UA Negative Negative [facility] DEPARTMENT OF PATHOLOGY AND GENOMIC MEDICINE Urobilinogen, <2.0 <2.0 [facility] OF PATHOLOGY AND GENOMIC MEDICINE Leukocyte Moderate (A) Negative [facility] DEPARTMENT esterase, UA OF PATHOLOGY AND GENOMIC MEDICINE Epithelial 3 /HPF [facility] DEPARTMENT cells, UA OF PATHOLOGY AND GENOMIC MEDICINE WBC, UA 85 (H) 0 - 4 /HPF [facility] DEPARTMENT OF PATHOLOGY AND GENOMIC MEDICINE RBC, UA 4 0 - 5 /HPF [facility] DEPARTMENT OF PATHOLOGY AND GENOMIC MEDICINE Bacteria, UA Few None seen [facility] DEPARTMENT OF PATHOLOGY AND GENOMIC MEDICINE Hyaline casts, >20 (A) /LPF [facility] OF PATHOLOGY AND GENOMIC MEDICINE Yeast, UA None seen [facility] DEPARTMENT OF PATHOLOGY AND GENOMIC MEDICINE Yeast with None seen [facility] DEPARTMENT pseudohyphae, OF PATHOLOGY UA AND GENOMIC MEDICINE Specimen Urine Performing Organization Address City/State/Zipcode Phone Number [facility] DEPARTMENT OF [address] [place] [address] PATHOLOGY AND GENOMIC MEDICINE * XR Abdomen 1 Vw Portable (01/31/2018 8:11 PM CDT) Specimen Narrative Performed At EXAMINATION:XR ABDOMEN 1 VW PORTABLE [facility] CLINICAL HISTORY:vomiting COMPARISON:None. IMPRESSION: Moderate amount retained stool in colon There is a nonspecific bowel gas pattern. No free air is identified. Gallbladder has been removed [facility]-[id number] Procedure Note Interface, Radiology Results Incoming - 01/31/2018 8:16 PM CDT EXAMINATION: XR ABDOMEN 1 VW PORTABLE CLINICAL HISTORY: vomiting COMPARISON: None. IMPRESSION: Moderate amount retained stool in colon There is a nonspecific bowel gas pattern. No free air is identified. Gallbladder has been removed [facility]-[id number] Performing Organization Address City/State/Zipcode Phone Number [facility] [address] [place] [address] * EEG (routine) (01/31/2018 1:55 PM CDT) [...] at 01/31/2018 12:04 PM who verbalized understanding. [facility]-[id number] Procedure Note Hm Interface, Radiology Results Incoming [...] at 01/31/2018 12:04 PM who verbalized understanding. [facility]-[id number] Performing Organization Address City/[facility]/[place] [address] * Arterial blood gas (01/31/2018 8:23 AM CDT) pH, arterial 7.40 7.35 - 7.45 [facility] DEPARTMENT OF PATHOLOGY AND GENOMIC MEDICINE pCO2, arterial 38 35 - 45 mmHg [facility] DEPARTMENT OF PATHOLOGY AND GENOMIC MEDICINE pO2, arterial 143 (H) 80 - 90 mmHg [facility] DEPARTMENT OF PATHOLOGY AND GENOMIC MEDICINE Bicarbonate, 22.6 21.0 - 28.0 mmol/L [facility] arterial OF PATHOLOGY AND GENOMIC MEDICINE Base excess, -1 -2 - 2 mEq/L [facility] arterial OF PATHOLOGY AND GENOMIC MEDICINE O2 saturation, 100 95 - 100 % [facility] arterial OF PATHOLOGY AND GENOMIC MEDICINE Specimen Blood Performing Organization Address City/[facility] [place] [place] [address] PATHOLOGY AND GENOMIC MEDICINE * Manual differential (01/31/2018 8:22 AM CDT) Manual PERFORMED [facility] DEPARTMENT differential OF PATHOLOGY AND GENOMIC MEDICINE Neutrophils 90.0 (H) 39.0 - 69.0 % [facility] DEPARTMENT OF PATHOLOGY AND GENOMIC MEDICINE Lymphocytes 7.0 (L) 25.0 - 45.0 % [facility] DEPARTMENT OF PATHOLOGY AND GENOMIC MEDICINE Monocytes 1.0 0.0 - 10.0 % [facility] DEPARTMENT OF PATHOLOGY AND GENOMIC MEDICINE Eosinophils 2.0 0.0 - 5.0 % [facility] DEPARTMENT OF PATHOLOGY AND GENOMIC MEDICINE Basophils 0.0 0.0 - 1.0 % [facility] DEPARTMENT OF PATHOLOGY AND GENOMIC MEDICINE Metamyelocytes 0 % [facility] DEPARTMENT OF PATHOLOGY AND GENOMIC MEDICINE Promyelocytes 0 % [facility] DEPARTMENT OF PATHOLOGY AND GENOMIC MEDICINE Platelet slide Kenia slt decr [facility] DEPARTMENT review OF PATHOLOGY AND GENOMIC MEDICINE Anisocytosis Moderate [facility] DEPARTMENT OF PATHOLOGY AND GENOMIC MEDICINE Polychromasia Moderate [facility] DEPARTMENT OF PATHOLOGY AND GENOMIC MEDICINE Ovalocytes Moderate [facility] DEPARTMENT OF PATHOLOGY AND GENOMIC MEDICINE Enlarged Moderate (A) [facility] DEPARTMENT platelets OF PATHOLOGY AND GENOMIC MEDICINE Specimen Narrative Performed At [facility] and reab back to Ophelia Quevedo at 01/31/18 08:59 by [email or web address] [facility] DEPARTMENT OF PATHOLOGY AND GENOMIC MEDICINE Performing Organization Address City/[facility]/Zipcode Phone Number [facility] DEPARTMENT OF [address] [place] [address] PATHOLOGY AND GENOMIC MEDICINE * Lactic acid level (01/31/2018 8:22 AM CDT) Only the most recent of 2 results within the time period is included. Lactic acid 1.2 0.5 - 2.2 mmol/L [facility] DEPARTMENT OF PATHOLOGY AND GENOMIC MEDICINE Specimen Blood Performing Organization Address City/[facility]/Zipcode Phone Number [facility] DEPARTMENT OF [address] [place] [address] PATHOLOGY AND GENOMIC MEDICINE * EEG (routine) [...] 10:05 AM CDT) Specimen Narrative Performed At [facility] Echocardiography Report [address] [facility] [address] [address] Pat.Name:SNOAM BERMEO Rosario.ID:[id number] .Date: 01/29/2018Refer.MD:REGINALD FIGUEROA MD Exam Time: 9:20:00 AMStudy Type:Routine Echo Height:63inWeight:148lb BSA: 1.7 m1YTKThz:1985,32Y Sex: FEMALEBP:140/97 HR:101 bpm Sonogrphr: Dale Issa RDCS Pat. Stat.:Inpatient Room:0 1003A Study Status:Final Echo Event ID:[id number] Order ID:[id number] Reason for Study:Stroke History / Clinical:Congestive Heart [...] RAPof 10 mmHg. MEASUREMENTS: 2D Parasternal [place] LVOT 1.9 cmLA Ds3.1 cm LVIDd4.9 cmIndex2.9 [...] 4.8 cm EF Biplane HR 103 bpm AGP896.4 ml CO 2.5 l/min SV49.1 ml VKE048.6 mlEF29.5 % DOPPLER LVOT Stroke Vol LVOT 1.9 cmLVOT CO3 l/min LVOT TVI10.4 cmLVOT CI1.8 l/m/m2 LVOT Tm254 msecHR 103 bpm LVOT SV 29.5 ml MA For Flow/Valve Assess MA TVI 141.6 cm Signed 01/30/2018 12:21 AM Santana Redding M.D. Procedure Note Interface, Radiology Results In - 01/30/2018 12:21 AM CDT Echocardiography Report [address] [place] [address] Pat.Name: SONAM BERMEO Pat.ID: [id number] .Date: 01/29/2018 Refer.MD: REGINALD FIGUEROA MD Exam Time: 9:20:00 AM Study Type:Routine Echo Height: 63in Weight: 148lb BSA: 1.7 m2 Age: 9 1985,32Y Sex: FEMALE BP: 140/97 HR: 101 bpm Sonogrphr: Dale Issa RDCS Pat. Stat.:Inpatient Room: [address] Study Status:Final Echo Event ID:[id number] Order ID: [id number] Reason for Study:Stroke History / Clinical:Congestive Heart [...] of 10 mmHg. MEASUREMENTS: 2D Parasternal [place] LVOT 1.9 cm LA Ds 3.1 cm [...] Redding M.D. Performing Organization Address City/State/[facility] Phone Number [facility] [address] [place] [address] * CTA Neck W Wo Contrast (01/28/2018 [...] no significant carotid or vertebral artery stenosis. [facility]-[id number] Procedure Note Interface, Radiology Results Incoming - [...] no significant carotid or vertebral artery stenosis. [facility]-[id number] Performing Organization Address City/State/Zipcode Phone Number [facility] [address] [place] [address] * Lipid panel (01/28/2018 6:47 PM CDT) Cholesterol 117 <200 mg/dL [facility] DEPARTMENT OF PATHOLOGY AND GENOMIC MEDICINE Triglycerides 92 <150 mg/dL [facility] DEPARTMENT OF PATHOLOGY AND GENOMIC MEDICINE HDL cholesterol 50 >40 mg/dL [facility] DEPARTMENT OF PATHOLOGY AND GENOMIC MEDICINE LDL cholesterol 64Comment: Result obtained by <100 mg/dL [facility] DEPARTMENT direct LDL measurement OF PATHOLOGY AND GENOMIC MEDICINE Lipid panel SeeBelow [facility] DEPARTMENT interpretation Comment: OF PATHOLOGY Total Cholesterol [...] specimen Performing Organization Address City/State/Zipcode Phone Number [facility] DEPARTMENT OF [address] [place] [address] PATHOLOGY AND GENOMIC MEDICINE * CT Upper [...] humeral head suspicious for extension of osteomyelitis. [facility]-[id number] Procedure Note Hm Interface, Radiology Results Incoming [...] humeral head suspicious for extension of osteomyelitis. [facility]-[id number] Performing Organization Address City/State/Zipcode Phone Number [facility] [address] [place] [address] * CTA Head W Wo Contrast (01/28/2018 [...] aneurysmal dilatation or vascular malformation of the [place]. The major dural sinuses are opacified normally. There are no gross brain parenchymal abnormalities. There is no midline shift, hydrocephalus or extra-axial fluid collection. Soft tissue shows no evidence of laceration or hematoma. There is no air-fluid level in the sinuses. Osseous calvarium is intact. IMPRESSION: 1.No hemodynamically significant narrowing of the [place] vessels. [facility]-[id number] Procedure Note Interface, Radiology Results Incoming - [...] aneurysmal dilatation or vascular malformation of the [place]. The major dural sinuses are opacified normally. There are no gross brain parenchymal abnormalities. There is no midline shift, hydrocephalus or extra-axial fluid collection. Soft tissue shows no evidence of laceration or hematoma. There is no air-fluid level in the sinuses. Osseous calvarium is intact. IMPRESSION: 1. No hemodynamically significant narrowing of the [place] vessels. [facility]-[id number] Performing Organization Address City/State/Zipcode Phone Number [facility] [address] [place] [address] * CT Chest Wo Contrast (01/28/2018 4:55 [...] is enlarged. 5.Left proximal humeral fracture reidentified. [facility]-[id number] Procedure Note [facility], Radiology Results [facility] - 01/28/2018 5:13 PM CDT [...] enlarged. 5. Left proximal humeral fracture reidentified. [facility]-[id number] Performing Organization Address City/State/Zipcode Phone Number [facility] [address] [place] [address] * Keppra (Levetiracetam) level (01/28/2018 8:00 AM CDT) Pathologist [facility] Levetiracetam 16 12 - 46 ug/mL [facility] Comment: INTERPRETIVE INFORMATION: Keppra (Levetiracetam) Therapeutic Range:12-46 ug/mL Toxic: Not well Established Pharmacokinetics of levetiracetam are affected by renal function. Adverse effects may include somnolence, weakness, headache and vomiting. This levetiracetam (Keppra) immunoassay uses the [employer] reagents, which has known cross-reactivity with the drug brivaracetam (Briviact) and may report inaccurate results. Patients transitioning from levetiracetam to brivaracetam or those who are using both medications should not monitor drug concentrations with the [employer] assay. These patients should be monitored using a validated chromatographic methodology that distinguishes between drugs to determine drug concentrations. Performed by [facility] ? [facility], [address] [place] [address] [id number] [email or web address], Boby Brito MD - Lab. Director Specimen Serum Performing Organization Address [facility] Phone Number [facility] [address] [place] [address] * Transfuse RBC (01/27/2018 9:20 PM CDT) Only the most recent of 5 results within the time period is included. * Hepatitis B surface antigen (01/27/2018 6:20 PM CDT) Only the most recent of 2 results within the time period is included. Pathologist [facility] Hepatitis B Non-reactive Non-reactive [facility] DEPARTMENT surface Ag OF PATHOLOGY AND GENOMIC MEDICINE Specimen Blood Performing Organization Address City/[facility]/Zipcode Phone Number [facility] DEPARTMENT OF [address] [place] [address] PATHOLOGY AND GENOMIC MEDICINE * Pv duplex venous upper extremity (01/27/2018 2:47 PM CDT) Only the most recent of 2 results within the time period is included. Specimen Narrative Performed At [facility] Upper Extremity Venous Report [address] [facility] [address], [place] [address] Pat.Name:SONAM BERMEO Pat.ID:[id number] .Date: 01/27/2018Refer.MD:REGINALD FIGUEROA MD Exam Time: 2:29:00 PMStudy Type:UE Venous DOBAge:1985,32Y Sex: FEMALE Sonogrphr: KATHY Robertson RCS Pat. Stat.:Inpatient Room:[place] [address] TapeVol: PATRICIA CPT - 4: 38142 Echo Event ID:[id number] Order ID:[id number] Reason for Study:Left arm swelling and pain, [...] [facility] Upper Extremity Venous Report [address] [place] [address] Pat.Name: SONAM BERMEO Pat.ID: [id number] .Date: 01/27/2018 Refer.MD: REGINALD FIGUEROA MD Exam Time: 2:29:00 PM Study Type:UE Venous Age: 9 1985,32Y Sex: FEMALE Sonogrphr: KATHY Robertson, NOEMY Pat. Stat.:Inpatient Room: [place] [address] Tape Vol: PATRICIA CPT - 4: 36680 Echo Event ID:[id number] Order ID: [id number] Reason for Study:Left arm swelling and pain, [...] RPVI Performing Organization Address City/State/Zipcode Phone Number [facility] [address] [place] [address] * Pv carotid duplex (01/27/2018 2:28 PM CDT) Specimen Narrative Performed At [facility] Vascular Ultrasound Laboratory Carotid Artery Duplex Report [address] [place] [address] For personnel quality assurance auditor purposes, the categorization of the degree of the stenosis of this exam is based on criteria described in the IAC carotid stenosis grading white paper( www.intersocietal.org/Vascular) and Neli Kilgore., Yoan Cruz., et al. Carotid artery stenosis: murillo-scale and Doppler US diagnosis--Society of Radiologists in Ultrasound Consensus Conference. Radiology. 2003 Nov; 229(2):340-6. Pat.Name:SONAM BERMEO Rosario.ID:[id number] .Date: 01/27/2018Refer.MD:REGINALD FIGUEROA MD Exam Time: 2:12:00 PMStudy Type:Carotid DOBAge:1985,32Y Sex: FEMALE Sonogrphr: Nicholas Reynoso, KATHY, NOEMY Pat. Stat.:Inpatient Room:[place] 877153 A TapeVol: PATRICIA, CPT - 4: 83498 Echo Event ID:[id number] Order ID:[id number] Reason for Study:Concern for clot, patient had [...] [facility] Laboratory Carotid Artery Duplex Report [address] [place] [address] For personnel quality assurance auditor purposes, the categorization of the degree of the stenosis of this exam is based on criteria described in the IAC carotid stenosis grading white paper( www.intersocietal.org/Vascular) and Chan Kilgore, Sherif Cruz, et al. Carotid artery stenosis: murillo-scale and Doppler US diagnosis--Society of Radiologists in Ultrasound Consensus Conference. Radiology. 2003 Feb; 229(2):340-6. Pat.Name: SONAM BERMEO [facility].ID: [id number] .Date: 01/27/2018 Refer.MD: REGINALD FIGUEROA MD Exam Time: 2:12:00 PM Study Type:Carotid Age: 9 1985,32Y Sex: FEMALE Sonogrphr: KATHY Robertson RCS Pat. Stat.:Inpatient Room: [address] Vol: PATRICIA, CPT - 4: 39599 Echo Event ID:[id number] Order ID: [id number] Reason for Study:Concern for clot, patient had [...] Caleb Pulliam MD, RPVI Performing Organization Address [facility]/Zipcode Phone Number [facility] [address] [place] [address] * Lactic acid level, SEPSIS - Now and repeat 2x every 3 hours (01/27/2018 6:34 AM CDT) Only the most recent of 2 results within the time period is included. Lactic acid 1.8 0.5 - 2.2 mmol/L [facility] DEPARTMENT OF PATHOLOGY AND GENOMIC MEDICINE Specimen Blood Performing Organization Address City/[facility]/Zipcode Phone Number [facility] DEPARTMENT OF [address] [place] [address] PATHOLOGY AND GENOMIC MEDICINE * Prepare RBC, 1 Units (01/27/2018 3:44 AM CDT) Only the most recent of 2 results within the time period is included. Product name Red Blood Cells -1, Leukored [facility] DEPARTMENT OF PATHOLOGY AND GENOMIC MEDICINE Unit number [id number] [facility] DEPARTMENT OF PATHOLOGY AND GENOMIC MEDICINE Product code [id number] [facility] DEPARTMENT OF PATHOLOGY AND GENOMIC MEDICINE Dispense status Transfused [facility] DEPARTMENT OF PATHOLOGY AND GENOMIC MEDICINE Blood [id number] [facility] DEPARTMENT expiration date OF PATHOLOGY AND GENOMIC MEDICINE Blood type code 5100 [facility] DEPARTMENT OF PATHOLOGY AND GENOMIC MEDICINE Blood type O POSITIVE [facility] DEPARTMENT OF PATHOLOGY AND GENOMIC MEDICINE Specimen Performing Organization Address City/[facility]/Zipcode Phone Number [facility] DEPARTMENT OF [address] [place] [address] PATHOLOGY AND GENOMIC MEDICINE * Type and screen (01/27/2018 3:44 AM CDT) Only the most recent of 2 results within the time period is included. ABO grouping O [facility] DEPARTMENT OF PATHOLOGY AND GENOMIC MEDICINE Rh type POS [facility] DEPARTMENT OF PATHOLOGY AND GENOMIC MEDICINE Antibody screen NEG [facility] DEPARTMENT (gel) OF PATHOLOGY AND GENOMIC MEDICINE Specimen Blood Performing Organization Address City/[facility]/Zipcode Phone Number [facility] DEPARTMENT OF [address] [place] [address] PATHOLOGY AND GENOMIC MEDICINE * XR Abdomen [...] technique. Diffuse osteopenia. No acute osseous abnormalities. [facility]-[id number] Procedure Note Hm Interface, Radiology Results Incoming [...] technique. Diffuse osteopenia. No acute osseous abnormalities. [id number] Performing Organization Address City/State/Zipcode Phone Number [facility] [address] [place] [address] * Blood culture, aerobic & anaerobic (01/26/2018 12:50 AM CDT) Blood culture No growth after 5 days of [facility] DEPARTMENT isolate incubation. OF PATHOLOGY Comment: AND GENOMIC Specimen Information MEDICINE Specimen Source: Blood Specimen Site: Other Specimen Blood - Other- Detailed Description Required Performing Organization Address City/State/Zipcode Phone Number [facility] DEPARTMENT OF [address] [place] [address] PATHOLOGY AND GENOMIC MEDICINE * IR Tunneled Dialysis Catheter Replacement/Exchange (01/02/2018 9:37 AM CDT) Specimen Narrative Performed At Procedure: Change of tunneled dialysis catheter [facility] Clinical History: End-stage renal disease. The patient's indwelling catheter is not functioning. Sedation: Versed and fentanyl were utilized for monitored conscious sedation during the procedure. The patient was transferred to the recovery room at the end of the procedure for further monitoring. Lbcd-ei-hlxr time 15 minutes Anesthesia: Local Radiation dose: [...] above. Blood Loss: Less than 1 mL [facility]-[id number] Procedure Note Interface, Radiology Results Incoming - 01/02/2018 9:51 AM CDT Procedure: Change of tunneled dialysis catheter Clinical History: End-stage renal disease. The patient's indwelling catheter is not functioning. Sedation: Versed and fentanyl were utilized for monitored conscious sedation during the procedure. The patient was transferred to the recovery room at the end of the procedure for further monitoring. Bwng-mb-gtke time 15 minutes Anesthesia: Local Radiation dose: [...] above. Blood Loss: Less than 1 mL [facility]-[id number] Performing Organization Address City/[facility] Vegas[facility] Phone Number [facility] [address] [place] [address] * Vancomycin level, random (01/01/2018 4:38 AM CDT) Only the most recent of 2 results within the time period is included. Vancomycin, SEE COMMENT ug/mL [facility] DEPARTMENT random Comment: OF PATHOLOGY Footnote--------- AND GENOMIC Specimen integrity MEDICINE questionable.Recollect requested for VANCT.APPLE ISO/M3SW notified by KXG at01/01/201806:39 . Specimen Serum Performing Organization Address City/[facility] Vegascode Phone Number [facility] DEPARTMENT OF [address] [id number] PATHOLOGY AND GENOMIC MEDICINE * Echocardiogram complete w contrast and 3D if needed (12/30/2017 9:36 AM CDT) Specimen Narrative Performed At [facility] Echocardiography Report [address] [address], [place] [address] Pat.Name:SONAM BERMEO Pat.ID:[id number] .Date: 12/30/2017 Refer.MD:JAYDEN JANSEN MD Exam Time: 9:20:00 AMStudy Type:Routine Echo Height:63inBSA: 1.73 m2 DOBAge:1985,32Y Sex: FEMALE BP:111/79HR: 103 bpm Sonogrphr: Aby Castro, RDCS, RVTPat. Stat.:[address] Status:Final Echo Event ID:[id number] Order ID:[id number] Reason for Study:CHF History / Clinical:Congestive Heart [...] RAPof 10 mmHg. MEASUREMENTS: 2D Parasternal [place] LVOT 1.8 cmIVSd 1 cm LA Ds4.4 cmLVPWd0.8 cm Ao Rtd 2.5 cmIndex1.5 cm/m LV Qjbb535 g(87-129) LVIDd5.6 cmIndex3.2 cm/m LVM Fzyzp771.4 g/m2 LVIDs5 cmRWT0.3 LV%fs 10.7 % LV EF Biplane GPCOK099.6 ml (59-136) Mmemh569.8 ml/m LV SV 57.6 ml SICIR126 qsOixbd17.5 ml/m LV EF 29 %(55-75) LA Sng [...] - 12/30/2017 2:42 PM CDT Echocardiography Report [address] [address] [facility].Name: SONAM BERMEO Rosario.ID: [id number] .Date: 12/30/2017 Refer.MD: JAYDEN JANSEN MD Exam Time: 9:20:00 AM Study Type:Routine Echo Height: 63in BSA: 1.73 m2 Age: 7 1985,32Y Sex: FEMALE BP: 111/79 HR: 103 bpm Sonogrphr: Aby Castro RDCS, RVT Pat. Stat.:Inpatient Room: [address] Study Status:Final Echo Event ID:[id number] Order ID: [id number] Reason for Study:CHF History / Clinical:Congestive Heart [...] of 10 mmHg. MEASUREMENTS: 2D Parasternal [place] LVOT 1.8 cm IVSd 1 cm LA [...] M.D. Performing Organization Address City/State/Zipcode Phone Number [facility] [address] [place] [address] * Pv duplex venous lower extremity (12/29/2017 2:10 PM CDT) Specimen Narrative Performed At [facility] Vascular Ultrasound Laboratory Lower Extremity Venous Report [address] [id number] Pat.Name:SONAM BERMEO Lili Pat.ID:[id number] .Date: 12/29/2017 Refer.MD:JAYDEN JANSEN MD Exam Time: 1:53:00 PMStudy Type:LE Venous Height:63inWeight:153lb BSA: 1.73 m2 DOBAge:1985,32Y Sex: FEMALESonogrphr: Hugo Bliss RN, S Pat. Stat.:Inpatient Room:[facility] TapeVol: PM, CPT - 4: 57556 Echo Event ID:[id number] Order ID:[id number] Reason for Study:Bilateral leg edema. Procedures:Colorflow, Grayscale/2D, [...] Vascular Ultrasound Laboratory Lower Extremity Venous Report [address] [address] Pat.Name: SONAM BERMEO Pat.ID: [id number] .Date: 12/29/2017 Refer.MD: JAYDEN JANSEN MD Exam Time: 1:53:00 PM Study Type:LE Venous Height: 63in Weight: 153lb BSA: 1.73 m2 Age: 9 1985,32Y Sex: FEMALE Sonogrphr: Hugo Bliss RN, RVS Pat. Stat.:Inpatient Room: [facility] Tape Vol: PM, CPT - 4: 66803 Echo Event ID:[id number] Order ID: [id number] Reason for Study:Bilateral leg edema. Procedures:Colorflow, Grayscale/2D, [...] Organization Address City/State/Zipcode Phone Number [facility] [address] [place] [address] * XR Shoulder 2+ Vw Left (12/28/2017 [...] Central venous catheter and transthoracic pacemaker present. [facility]-[id number] Procedure Note Interface, Radiology Results Incoming - [...] Central venous catheter and transthoracic pacemaker present. [facility]-[id number] Performing Organization Address [facility]/Zipcode Phone Number [facility] [address] [place] [address] * US Renal (12/28/2017 1:35 PM CDT) Specimen Narrative Performed At EXAMINATION:US RENAL [facility] CLINICAL HISTORY:hydroureter COMPARISON:06/04/2015 IMPRESSION: 1.There is no hydronephrosis. 2.Renal cortical echogenicity is increased suggesting medical renal disease. 3.Right kidney measures 10.2 x 4 x 3.8 cm. 4.Left kidney measures 11.3 x 4.5 x 4.8 cm. 5.Bladder is unremarkable. [facility]-[id number] Procedure Note Interface, Radiology Results Incoming - 12/28/2017 2:43 PM CDT EXAMINATION: US RENAL CLINICAL HISTORY: hydroureter COMPARISON: 06/04/2015 IMPRESSION: 1. There is no hydronephrosis. 2. Renal cortical echogenicity is increased suggesting medical renal disease. 3. Right kidney measures 10.2 x 4 x 3.8 cm. 4. Left kidney measures 11.3 x 4.5 x 4.8 cm. 5. Bladder is unremarkable. [facility]-[id number] Performing Organization Address City/[facility]/Zipcode Phone Number [facility] [address] [place] [address] * Hemoglobin A1c (12/28/2017 5:00 AM CDT) Hemoglobin A1C 6.8 (H) 4.0 - 5.6 % [facility] DEPARTMENT Comment: OF PATHOLOGY HbA1c cutoffs for [...] Blood Performing Organization Address City/State/Zipcode Phone Number [facility] DEPARTMENT OF [address] [place] [address] PATHOLOGY AND GENOMIC MEDICINE * CT Abdomen [...] shift/edema. Correlation to exclude colitis is advised. [facility]-[id number] Procedure Note Hm Interface, Radiology Results Incoming [...] shift/edema. Correlation to exclude colitis is advised. [facility]-[id number] Performing Organization Address City/State/Zipcode Phone Number [facility] [address] [place] [address] * Urinalysis screen and microscopy, with reflex to culture (12/28/2017 3:30 AM CDT) Specimen site Clean catch [facility] DEPARTMENT OF PATHOLOGY AND GENOMIC MEDICINE Color, UA Yellow [facility] DEPARTMENT OF PATHOLOGY AND GENOMIC MEDICINE Appearance, UA Hazy [facility] DEPARTMENT OF PATHOLOGY AND GENOMIC MEDICINE Specific 1.017 1.001 - 1.035 [facility] DEPARTMENT gravity, UA OF PATHOLOGY AND GENOMIC MEDICINE pH, UA 6.0 5.0 - 8.5 [facility] DEPARTMENT OF PATHOLOGY AND GENOMIC MEDICINE Protein, UA 3+ (A) Negative [facility] DEPARTMENT OF PATHOLOGY AND GENOMIC MEDICINE Glucose, UA Negative Negative [facility] DEPARTMENT OF PATHOLOGY AND GENOMIC MEDICINE Ketones, UA Negative Negative [facility] DEPARTMENT OF PATHOLOGY AND GENOMIC MEDICINE Bilirubin, UA Positive@UBIL (A) Negative [facility] DEPARTMENT OF PATHOLOGY AND GENOMIC MEDICINE Blood, UA Small (A) Negative [facility] DEPARTMENT OF PATHOLOGY AND GENOMIC MEDICINE Nitrite, UA Negative Negative [facility] DEPARTMENT OF PATHOLOGY AND GENOMIC MEDICINE Urobilinogen, <2.0 <2.0 [facility] DEPARTMENT UA OF PATHOLOGY AND GENOMIC MEDICINE Leukocyte Moderate (A) Negative [facility] DEPARTMENT esterase, UA OF PATHOLOGY AND GENOMIC MEDICINE Epithelial 1 /HPF [facility] DEPARTMENT cells, UA OF PATHOLOGY AND GENOMIC MEDICINE WBC, UA 129 (H) 0 - 4 /HPF [facility] DEPARTMENT OF PATHOLOGY AND GENOMIC MEDICINE RBC, UA 15 (H) 0 - 5 /HPF [facility] DEPARTMENT OF PATHOLOGY AND GENOMIC MEDICINE Bacteria, UA None seen None seen [facility] DEPARTMENT OF PATHOLOGY AND GENOMIC MEDICINE Yeast, UA Many (A) [facility] DEPARTMENT OF PATHOLOGY AND GENOMIC MEDICINE Yeast with None seen [facility] DEPARTMENT pseudohyphae, OF PATHOLOGY UA AND GENOMIC MEDICINE Hyaline casts, 18 /LPF [facility] UA OF PATHOLOGY AND GENOMIC MEDICINE Specimen Urine Performing Organization Address City/[facility]/Zipcode Phone Number [facility] DEPARTMENT OF [address] [place] [address] PATHOLOGY AND GENOMIC MEDICINE * Gram stain (12/28/2017 3:30 AM CDT) Gram stain Rare WBC's [facility] DEPARTMENT result Rare Budding yeast OF PATHOLOGY Comment: AND GENOMIC Specimen Information MEDICINE Specimen Source: Urine Specimen Site: Clean catch Specimen Urine Performing Organization Address City/[facility]/Zipcode Phone Number [facility] DEPARTMENT OF [address] [place] [address] PATHOLOGY AND GENOMIC MEDICINE * Urine culture (12/28/2017 3:30 AM CDT) Urine culture Marleen glabrata [facility] DEPARTMENT isolate >10-5 cfu/ml OF PATHOLOGY The performance AND GENOMIC characteristics of this assay MEDICINE on this isolate were validated by the Microbiology Laboratory at [facility].This source has not been approved by the U.S. Food and Drug Administration.The results are not intended to be used as the sole means for clinical diagnosis or patient management.The Microbiology Laboratory is authorized under the clinical Laboratory Improvement Amendments of 1988 (CLIA-88) to perform high complexity testing. (A) Comment: Specimen Information Specimen Source: Urine Specimen Site: Clean catch Urine culture Gram positive betsy [facility] DEPARTMENT isolate 10-2 cfu/ml OF PATHOLOGY (A) AND GENOMIC MEDICINE Specimen Urine Antibiotic Method Susceptibility Organism Micafungin BP 0.016 mcg/mL: Susceptible Marleen glabrata Amphotericin B BP 1 mcg/mL: Susceptible Marleen glabrata Posiconazole BP 1 mcg/mL Marleen glabrata Itraconazole BP 1.0 mcg/mL: Resistant Marleen glabrata Fluconazole BP 32 mcg/mL: Susceptible Marleen glabrata Performing Organization Address City/State/Zipcode Phone Number [facility] DEPARTMENT OF [address] [place] [address] PATHOLOGY AND GENOMIC MEDICINE after 11/21/2017 Insurance Type Payer Benefit Subscriber ID Effective Phone Address Plan / Dates Group [facility] GRISEL [employer] xxxxxxxxx 2016-P [facility] Advance Directives Patient has advance care planning documents, and code status on file. For more i nformation, please contact: Pavel Roberts [address] [place] [id number] Date Inactivated Comments Code Status Date Activated 02/18/2018 8:23 PM Full Code 02/08/2018 4:32 PM Code Status decision reached by: Patient
--- OUTSIDE RECORDS SUMMARY | 2018-11-22 16:57 | XMS REPORT | Clinical Summary ---
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 lv-cb-lib-mg Tab 01/14/2019 Active phenytoin (DILANTIN) 100 Take [...] Telephone Transplant Eriberto Ferro 10/24/2018 Abstract Transplant Eriberto Ferro Kidney Transplant Pre-evaluation 10/24/2018 Telephone Transplant Eriberto Ferro 10/24/2018 Abstract Transplant Domenica Rojo MD 01/09/2018 Anesthesia Event Virtual, Surgeon PROCEDURE DONE OUTSIDE OR 01/09/2018 [facility] Ahmed, Shamoon, MD Siddiqui, Angela Oliva MD Edema, unspecified type (Primary Dx); ESRD on hemodialysis (HCC); Postoperative wound infection, subsequent encounter; Chest pain, unspecified type; Chronic pain due to trauma; Surgical site infection 01/03/2018 Hospital Cardiology - Encounter 01/23/2018 01/03/2018 Orders Only General Internal Medicine after 11/21/2017 Social History Date Tobacco Use Types Packs/Day [...] ms QTC Calculatio n(Bazett) 452 ms P [place] 61 degrees R [place] 27 degrees T [place] 106 degrees Sinus tachycardi a Nonspecifi c [...] ms QTC Calculatio n(Bazett) 437 ms P [place] 53 degrees R [place] 0 degrees T [place] 174 degrees Sinus tachycardi a with Fusion [...] 12-LEAD STAT 01/03/2018 12:48 AM CDT after 11/21/2017 Results * ARRYTHMIA IMPLANT REPORT - SCAN (01/24/2018 1:40 PM CDT) Narrative Performed At * RHYTHM STRIP - SCAN (01/24/2018 1:40 PM CDT) Narrative Performed At * POC-Glucose meter (01/23/2018 9:24 AM CDT) Only the most recent of 67 results within the time period is included. POC-Glucose Meter 135 (H)Comment: TESTED AT 70 - 110 mg/dL [facility] [address] [facility] [address] Specimen Blood Performing Organization Address City/State/Zipcode Phone Number [facility] [address] [place] [address] [facility] * HEMODIALYSIS INPATIENT (01/22/2018 5:54 [...] (01/21/2018 6:41 AM CDT) Result No growth [facility] Gram Stain Result 4+ WBCs [facility] Gram Stain Result No organisms seen [facility] Specimen Wound Performing Organization Address City/State/Zipcode Phone Number [facility] [address] [place] [address] MEDICAL [facility]ENTER * IR Tunneled Catheter Insertion (01/20/2018 1:02 PM CDT) Only the most recent of 2 results within the time period is included. Specimen Narrative Performed At FINAL REPORT [facility] Tunneled dialysis catheter exchange, partial today History: Renal failure. Nonfunctioning hemodialysis catheter. Unable to aspirate from the right portal Modality: Sonography and fluoroscopy. Sedation: Versed 1.0 mg and fentanyl 50 mcg was given intravenously for conscious sedation.Vital signs were monitored throughout the procedure by a nurse, and remained stable. Physician intra-service time was 20 minutes. Lap Machine Operator:Kayla. Motor Operator: Nadia Inman MD. Approach: Right chest tunneled [...] new 19 cm cuff to tip 15.5 Anguillan Duraflow two catheter was then advanced over [...] MD Report Verified Date/Time:01/20/2018 17:29:46 Reading Location: [place] [address] Angio Body Reading Room Procedure Note Interface, [...] stable. Physician intra-service time was 20 minutes. Lap Machine Operator: Kayla. Motor Operator: Nadia Inman MD. Approach: Right chest tunneled [...] new 19 cm cuff to tip 15.5 Anguillan Duraflow two catheter was then advanced over [...] Report Verified Date/Time: 01/20/2018 17:29:46 Reading Location: [facility] P048 Angio Body Reading Room Performing Organization Address City/State/Zipcode Phone Number GE RIS * PT/aPTT (01/20/2018 5:26 AM CDT) Only the most recent of 5 results within the time period is included. Protime 17.8 (H) 11.7 - 14.7 seconds [facility] INR 1.5 <=5.9 [facility] PTT 36.8 (H) 22.5 - 36.0 seconds [facility] Specimen Blood Narrative Performed At RECOMMENDED COUMADIN/WARFARIN INR THERAPY RANGES [facility] STANDARD DOSE: 2.0 - 3.0 Includes: PROPHYLAXIS for venous thrombosis, [facility] systemic embolization; TREATMENT for venous thrombosis and/or pulmonary embolus. HIGH RISK: Target INR is 2.5-3.5 for patients with mechanical heart valves. Performing Organization Address City/State/Zipcode Phone Number [facility] [address] [place] [address] MEDICAL [facility]ENTER * CBC with platelet count + automated diff (01/20/2018 5:26 AM CDT) Only the most recent of 16 results within the time period is included. WBC 4.6 3.5 - 10.5 K/L [facility] RBC 3.04 (L) 3.93 - 5.22 M/L [facility] Hemoglobin 8.4 (L) 11.2 - 15.7 GM/DL [facility] Hematocrit 28.9 (L) 34.1 - 44.9 % [facility] MCV 95.1 (H) 79.4 - 94.8 fL [facility] MCH 27.6 25.6 - 32.2 pg [facility] MCHC 29.1 (L) 32.2 - 35.5 GM/DL [facility] RDW 17.8 (H) 11.7 - 14.4 % [facility] Platelets 169 150 - 450 K/CU MM [facility] MPV 10.8 9.4 - 12.3 fL [facility] nRBC 0 0 - 0 /100 WBC [facility] % Neutros 77 % [facility] % Lymphs 16 % [facility] % Monos 3 % [facility] % Eos 2 % [facility] % Baso 1 % [facility] # Neutros 3.51 1.56 - 6.13 K/L [facility] # Lymphs 0.75 (L) 1.18 - 3.74 K/L [facility] # Monos 0.13 (L) 0.24 - 0.36 K/L [facility] # Eos 0.11 0.04 - 0.36 K/L [facility] # Baso 0.03 0.01 - 0.08 K/L [facility] Immature 1 0 - 1 % [facility] Granulocytes-Relative [facility] Specimen Blood Performing Organization Address City/[facility] Phone Number [address] * Vancomycin level, random (01/20/2018 5:26 AM CDT) Only the most recent of 4 results within the time period is included. Vancomycin Rm 19.5 ug/mL [facility] Specimen Blood Narrative Performed At Reference Range: No Normals [facility] Performing Organization Address City/[facility] Phone Number [address] * TRANSFUSION SERVICE REPORT - SCAN (01/18/2018 6:00 PM CDT) Only the most recent of 2 results within the time period is included. Narrative Performed At * Phosphorus (01/18/2018 9:35 AM CDT) Phosphorus 2.4 2.3 - 4.7 mg/dL [facility] Specimen Blood Performing Organization Address City/[facility]/[place] [address] [facility] * Magnesium (01/18/2018 9:35 AM CDT) Only the most recent of 2 results within the time period is included. Magnesium 1.7 1.6 - 2.6 mg/dL [facility] Specimen Blood Performing Organization Address City/State/Zipcode Phone Number [facility] [address] [place] [address] [facility] * Basic metabolic panel (01/18/2018 9:35 AM CDT) Only the most recent of 16 results within the time period is included. Sodium 135 (L) 136 - 145 meq/L [facility] Potassium 3.2 (L) 3.5 - 5.1 meq/L [facility] Chloride 99 98 - 107 meq/L [facility] CO2 29 22 - 29 meq/L [facility] BUN 13 7 - 21 mg/dL [facility] Creatinine 2.07 (H) 0.57 - 1.25 mg/dL [facility] Glucose 135 (H) 70 - 105 mg/dL [facility] Calcium 7.8 (L) 8.4 - 10.2 mg/dL [facility] EGFR 34Comment: ESTIMATED GFR IS mL/min/1.73 sq m [facility] NOT ACCURATE CREATININE [facility] CLEARANCE IN PREDICTING GLOMERULAR FILTRATION RATE. ESTIMATED GFR IS NOT APPLICABLE FOR DIALYSIS PATIENTS. Specimen Blood Performing Organization Address [facility] Hospital[facility] Phone Number [facility] [address] [place] [address] [facility] * Prepare Leuko-Red & Irrad RBC (01/17/2018 11:54 PM CDT) CROSSMATCH COMPATIBLE SAFETRACE TX Unit ABO O Pos SAFETRACE TX UNIT NUMBER [id number] SAFETRACE TX Status TRANSFUSED SAFETRACE TX Blood Bank Product RED BLOOD CELLS SAFET[place]ACE [place] PRODUCT CODE [id number] [place] Specimen Other Performing Organization Address City/[facility] Phone Number [place] * CT upper extremity with contrast right (01/17/2018 9:24 PM CDT) Specimen Narrative Performed At FINAL REPORT [facility] CT, EXTREMITY, UPPER, WITH CONTRAST, RIGHT, [...] Verified Date/Time:01/17/2018 22:06:08 Reading Location: [facility] C013T Transitional Reading Room Procedure Note Interface, [...] Report Verified Date/Time: 01/17/2018 22:06:08 Reading Location: [facility] B1 C013T Transitional Reading Room Performing Organization Address City/State/Zipcode Phone Number [facility] * CT upper extremity with contrast left (01/17/2018 9:24 PM CDT) Specimen Narrative Performed At FINAL REPORT [facility] CT, EXTREMITY, UPPER, WITH CONTRAST, RIGHT, CT, [...] MD Report Verified Date/Time:01/17/2018 22:06:08 Reading Location: [address] Transitional Reading Room Procedure Note Interface, [...] Report Verified Date/Time: 01/17/2018 22:06:08 Reading Location: [address] Transitional Reading Room Performing Organization Address City/State/Zipcode Phone Number [facility] * CT chest without IV contrast (01/16/2018 11:42 PM CDT) Specimen Narrative Performed At FINAL REPORT [facility] CT, CHEST, WITHOUT CONTRAST INDICATION: Chest pain [...] MD Report Verified Date/Time:01/16/2018 23:55:03 Reading Location: [address] Reading Room Procedure Note Interface, External [...] Report Verified Date/Time: 01/16/2018 23:55:03 Reading Location: [address] Reading Room Performing Organization Address City/State/Zipcode Phone Number GE [facility] * Transfuse Leuko-Red & Irrad RBC (01/16/2018 3:05 PM CDT) Only the most recent of 2 results within the time period is included. * Type and screen, automated (01/16/2018 12:17 PM CDT) ABO/RH AUTOMATED (BEAKER) O POSITIVE [facility] Ab Scrn NEGATIVE [facility] Specimen Blood Performing Organization Address City/State/Zipcode Phone Number [facility] [address] [place] [address] [facility] * CBC (Hemogram only) (01/16/2018 4:01 AM CDT) WBC 3.7 3.5 - 10.5 K/L [facility] RBC 2.49 (L) 3.93 - 5.22 M/L [facility] Hemoglobin 6.9 (L) 11.2 - 15.7 GM/DL [facility] Hematocrit 24.0 (L) 34.1 - 44.9 % [facility] MCV 96.4 (H) 79.4 - 94.8 fL [facility] MCH 27.7 25.6 - 32.2 pg [facility] MCHC 28.8 (L) 32.2 - 35.5 GM/DL [facility] RDW 18.7 (H) 11.7 - 14.4 % [facility] Platelets 152 150 - 450 K/CU MM [facility] MPV 10.8 9.4 - 12.3 fL [facility] nRBC 0 0 - 0 /100 WBC [facility] Specimen Blood Performing Organization Address City/State/Zipcode Phone Number [facility] [address] [place] [address] MEDICAL CENTER * XR chest [...] MD Report Verified Date/Time:01/14/2018 22:17:24 Reading Location: [facility] Mammo Reading Room Procedure Note Interface, External [...] Report Verified Date/Time: 01/14/2018 22:17:24 Reading Location: [facility] Mammo Reading Room Performing Organization Address City/State/Zipcode Phone Number GE RIS * Clostridium difficile [facility] Toxin (01/14/2018 2:05 AM CDT) C. Difficle Toxin Negative Negative [facility] C. Difficile [facility] Antigen Positive (A)Comment: C. Negative [facility] difficile present but toxin [facility] not detected. Indicates colonization with non-toxigenic strain or level of toxin below detectable levels. No need for enteric isolation. Treatment is rarely needed (only when strong clinical suspicion for Clostridium difficile infection) Specimen Stool Narrative Performed At Testing performed by [employer] Rapid Cassette Assay.For GDH, published [facility] sensitivity of the assay is 98.7% compared to cytotoxicity testing.For Toxin [facility] AB, published sensitivity is 87.8% and specificity 99.4% compared to cytotoxicity testing. Verification of kit performance was done by the [facility] Microbiology Lab prior to clinical use. Performing Organization Address [facility] Phone Number [facility] [address] [place] [address] MEDICAL CENTER * HEMODIALYSIS INPATIENT [...] CDT) TSH 3.42 0.35 - 4.94 uIU/mL [facility] Specimen Blood Performing Organization Address City/State/Zipcode Phone Number [facility] [address] [place] [address] [facility] * CT brain without IV contrast (01/11/2018 12:53 PM CDT) Specimen Narrative Performed At FINAL REPORT [facility] CT head without contrast 01/11/2018 1:34 [...] MD Report Verified Date/Time:01/11/2018 13:35:22 Reading Location: [address] Ortho Consult Reading Room Procedure Note [...] Report Verified Date/Time: 01/11/2018 13:35:22 Reading Location: [facility] B1 C013X Ortho Consult Reading Room Performing Organization Address City/State/[facility] Phone Number [facility] * Hemoglobin and hematocrit (01/10/2018 6:15 PM CDT) Hemoglobin 8.4 (L) 11.2 - 15.7 GM/DL [facility] Hematocrit 28.5 (L) 34.1 - 44.9 % [facility] Specimen Blood Performing Organization Address City/[facility]code Phone Number [facility] [address] [place] [address] [facility] * Vancomycin level, trough (01/10/2018 3:09 PM CDT) Vancomycin Tr 12.4 10.0 - 20.0 ug/mL [facility] Specimen Blood Narrative Performed At Send after dialysis please [facility] Performing Organization Address City/[facility] Phone Number [facility] [address] [place] [address] [facility] * ECG 12 lead (01/10/2018 7:31 AM CDT) Only the most recent of 2 results within the time period is included. Specimen Narrative Performed At Ventricular Rate 123 BPM GE [facility] Atrial Rate 123 BPM P-R Interval 164 ms QRS Duration 88 ms Q-T Interval 316 ms QTC Calculation(Bazett) 452 ms P [place] 61 degrees R [place] 27 degrees T [place] 106 degrees Sinus tachycardia Nonspecific T wave [...] 316 ms QTC Calculation(Bazett) 452 ms P [place] 61 degrees R [place] 27 degrees T [place] 106 degrees Sinus tachycardia Nonspecific T wave abnormality Prolonged QT Abnormal ECG When compared with ECG of 03-JAN-2018 00:48, Fusion complexes are no longer Present Confirmed by Charlene KELLOGG BASANT ([id number]) on 01/12/2018 8:44:48 PM Performing Organization Address City/State/[facility]code Phone Number [employer] [facility] * XR chest 1 view portable / bedside (01/10/2018 5:28 AM CDT) Only the most recent of 2 results within the time period is included. Specimen Narrative Performed At FINAL REPORT [facility] Chest one view. Clinical history: SOB post [...] MD Report Verified Date/Time:01/10/2018 06:32:36 Reading Location: [address] Body Reading Room Procedure Note [...] Date/Time: 01/10/2018 06:32:36 Reading Location: [facility] C013Y CT Body Reading Room Performing Organization Address City/State/[facility] Hospitalcome Phone Number [facility] * C-Reactive Protein (01/10/2018 4:34 AM CDT) Only the most recent of 2 results within the time period is included. CRP 2.35 (H) 0.00 - 0.50 mg/dL [facility] Specimen Blood Performing Organization Address [facility] Hospitalcome Phone Number [facility] [address] [place] [address] [phone] [place] [address] * Lactic acid, venous, whole blood (01/10/2018 4:23 AM CDT) Lactate, Venous 2.7 (H) 0.5 - 2.2 mmol/L [facility] Specimen Blood Narrative Performed At Effective 08/17/2015: Units/Reference Range Change [facility] New: 0.5-2.2 mmol/LPrevious: 5-20 mg/dL [facility] Performing Organization Address [facility] [place] [address] [phone] [place] [address] * IR Tunneled Catheter Exchange (01/09/2018 5:40 PM CDT) Specimen Narrative Performed At FINAL REPORT [facility] Procedure: Removal replaced damage right internal [...] MD Report Verified Date/Time:01/09/2018 19:06:03 Reading Location: [place] [address] Angio Body Reading Room Procedure Note Interface, [...] Report Verified Date/Time: 01/09/2018 19:06:03 Reading Location: [place] [address] Angio Body Reading Room Performing Organization Address City/State/Zipcode Phone Number [facility] * hCG, quantitative, (01/09/2018 4:08 AM CDT) hCG Quant <1 0 - 10 mIU/mL [facility] Specimen Blood Narrative Performed At Non- Females: <10 mIU/mL [facility] Females: [facility] Gestation AgeReference Range(mIU/mL) 0.2-1 Week5-50 1-2 [id number] 2-3 Weeks 100-5,000 3-4 Weeks 500-10,000 4-5 Weeks 1,000-50,000 5-6 Weeks10,000-100,000 6-8 Weeks15,000-200,000 2-3 Months 10,000-100,000 Performing Organization Address City/State/Zipcode Phone Number [facility] [address] [place] [address] MEDICAL CENTER * PERMANENT LAB REPORT - SCAN (01/07/2018 11:13 AM CDT) Narrative Performed At * Immunofixation electrophoresis (TONYA) (01/06/2018 4:08 PM CDT) IgG 3,413 (H) 540 - 1,822 mg/dL [facility] IgA 483 63 - 484 mg/dL [facility] IgM 130 22 - 293 mg/dL [facility] Serum TONYA Identification No monoclonal bands detected. [facility] Polyclonal distribution of [facility] immunoglobulins. Pathologist: Belkis Styles MD [facility] (electronic signature) [facility] Specimen Blood Performing Organization Address City/[facility]/Zipcode Phone Number [address] [address] [facility] * Protein electrophoresis, serum (01/06/2018 4:08 PM CDT) Albumin Fraction 2.6 (L) 3.5 - 5.5 g/dL [facility] Alpha 1 Fraction 0.3 0.2 - 0.4 g/dL [facility] Alpha 2 Fraction 0.8 0.5 - 0.9 g/dL [facility] Beta Fraction 1.0 0.6 - 1.1 g/dL [facility] Gamma Globulin Fraction 3.2 (H) 0.7 - 1.7 g/dL [facility] Interpretation Decreased albumin consistent [facility] with renal protein loss. [facility] Polyclonal elevation of gamma fraction, which may be seen with chronic inflammation and/or recent administration of IVIG. Serum TONYA ordered to exclude presence of small monoclonal protein underlying. Pathologist: Belkis Styles MD [facility] (electronic signature) [facility] Protein, Total 7.8 6.0 - 8.3 gm/dL [facility] Specimen Blood Performing Organization Address City/[facility]/Zipcode Phone Number [facility] [address] [place] [address] [facility] * PTH, intact (01/06/2018 4:08 PM CDT) PTH 80.1 (H) 8.5 - 72.5 pg/mL [facility] Specimen Blood Performing Organization Address City/State/Zipcode Phone Number [facility] [address] [place] [address] [facility] * Lactate dehydrogenase (LDH) (01/06/2018 4:08 PM CDT) LDH 171 125 - 220 U/L [facility] Specimen Blood Performing Organization Address City/State/Zipcode Phone Number [facility] [address] [place], [place] [phone] [facility] * XR shoulder complete 2 [...] MD Report Verified Date/Time:01/05/2018 10:47:29 Reading Location: [facility] [address] [place] [address] Reading Room Procedure Note Interface, External Ris [...] Report Verified Date/Time: 01/05/2018 10:47:29 Reading Location: [address] Transitional Reading Room Performing Organization Address City/State/Zipcode Phone Number [facility] * XR elbow 3 views min left (01/05/2018 10:00 AM CDT) Specimen Narrative Performed At FINAL REPORT [facility] LEFT ELBOW 3 VIEWS HISTORY: Left elbow [...] MD Report Verified Date/Time:01/05/2018 10:51:25 Reading Location: [facility] C0[facility] Transitional Reading Room Procedure [...] Report Verified Date/Time: 01/05/2018 10:51:25 Reading Location: [address] Transitional Reading Room Performing Organization Address [facility] Phone Number RIS * XR humerus 2 views left (01/05/2018 10:00 AM CDT) Specimen Narrative Performed At FINAL REPORT [facility] LEFT HUMERUS 2 VIEWS HISTORY: Left arm [...] MD Report Verified Date/Time:01/05/2018 10:55:40 Reading Location: [address] Transitional Reading Room Procedure Note Interface, [...] Report Verified Date/Time: 01/05/2018 10:55:40 Reading Location: [address] Transitional Reading Room Performing Organization Address [facility] Phone Number [facility] * HEMODIALYSIS INPATIENT [...] CDT) hepatitis B Surface Ag Nonreactive Nonreactive [facility] Specimen Blood Performing Organization Address City/[facility] Phone Number [address] * Hemoglobin A1c (01/03/2018 9:16 AM CDT) Hemoglobin A1C 6.0 4.3 - 6.1 % [facility] Specimen Blood Performing Organization Address City/[facility] Phone Number [address] * ED ECG Interpretation (01/03/2018 6:35 AM CDT) Narrative Performed At Meghan Montiel MD 01/03/20186:35 AM ECG/EKG Interpretation Date/Time: 01/03/2018 5:09 AM Performed by: MEGHAN MONTIEL Authorized by: MEGHAN MONTIEL The ECG was interpreted by ED physician. The ECG is interpreted as sinus rhythm. Rate is tachycardic. [place] is normal. Clinical Impression: non-specific ECGECG reviewed and does not meet STEMI criteria. Patient tolerance: Patient tolerated the procedure well with no immediate complications * Urinalysis w/ Microscopic (01/03/2018 4:24 AM CDT) Color, UA Yellow [facility] Clarity, UA Hazy [facility] Specific [place], UA 1.016 1.001 - 1.035 [facility] pH, UA 6.0 5.0 - 8.0 [facility] Protein, UA 300 mg/dL (A) Negative [facility] Glucose, UA Negative Negative [facility] Ketones, UA Negative Negative [facility] Bilirubin, UA Negative Negative [facility] Blood, UA Moderate (A) Negative [facility] Nitrite, UA Negative Negative [facility] Leukocytes, UA Large (A) Negative [facility] Urobilinogen, UA 0.2 0.2 - 1.0 mg/dL [facility] RBC, UA 104 /HPF [facility] WBC, UA 57 /HPF [facility] Bacteria, UA Few [facility] Hyaline Casts, UA 27 /LPF [facility] Granular Casts, UA 4 /LPF [facility] Amorphous Crystals Occasional [facility] Specimen Source Urine, Straight Catheter [facility] Specimen Urine - Urine, Straight Catheter Performing Organization Address City/State/Zipcode Phone Number [facility] [address] [place] [address] MEDICAL CENTER * Troponin I (01/03/2018 1:09 AM CDT) Troponin I 0.02 0.00 - 0.03 ng/mL [facility] Specimen Blood Narrative Performed At Troponin [...] disease, and persistent tachyarrhythmia. Performing Organization Address City/[facility] Phone Number [address] * B-type natriuretic peptide (01/03/2018 1:09 AM CDT) BNP 3,706 (H) 0 - 100 pg/mL [facility] Specimen Blood Performing Organization Address [facility] Phone Number [address] * Lipase (01/03/2018 1:09 AM CDT) Lipase 7 (L) 8 - 78 U/L [facility] Specimen Blood Performing Organization Address City[facility] Phone Number [address] * Amylase (01/03/2018 1:09 AM CDT) Amylase 47 25 - 125 U/L [facility] Specimen Blood Performing Organization Address [facility] Phone Number [address] * Hepatic function panel (01/03/2018 1:09 AM CDT) Protein, Total 7.9 6.0 - 8.3 gm/dL [facility] Albumin 2.4 (L) 3.5 - 5.0 g/dL [facility] Total Bilirubin 0.5 0.2 - 1.2 mg/dL [facility] Bilirubin, Direct 0.3 0.1 - 0.5 mg/dL [facility] Alkaline Phosphatase 133 40 - 150 U/L [facility] AST 7 5 - 34 U/L [facility] ALT 6 6 - 55 U/L [facility] Specimen Blood Performing Organization Address City/State/Zipcode Phone Number [facility] [address] [place] [address] MEDICAL CENTER after 11/21/2017 Insurance Payer Benefit Subscriber ID Type Phone Address Plan / Group [employer] MEDICAID MEDICAID xxxxxxxxx [place] MEDICAID - MEDICAID [id number] MEDICAID xxxxxxxxx Medicaid CARE [place] Non-Contra NONCONTRAC cted EMILY Advance Directives For more information, please contact: [facility] [address] [place] [phone] Date Inactivated Comments Code Status Date Activated 01/23/2018 6:21 PM Full Code 01/03/2018 7:16 AM This code status was determined by: Patient
--- OUTSIDE RECORDS SUMMARY | 2018-11-22 16:58 | XMS REPORT | Continuity of Care Document ---
Author Author [employer] Organization [employer] Address Unknown Phone Unavailable Care Team Providers Care Cosmetic Maker Name Role Phone Interneer Information Exchange Unavailable Unavailable Problems Problem Status Onset Date Classification Date Reported Comments Source S3 Active 01/02/2016 Problem 11/12/2018 [facility] UTI Active 01/02/2016 Problem 11/12/2018 [facility] End stage renal disease on dialysis due to type 2 diabetes mellitus Active 10/23/2015 Problem 11/12/2018 [facility] Hyperkalemia Active 10/23/2015 Problem 11/12/2018 [facility] Myoclonic disorder Active 10/23/2015 Problem 11/12/2018 [facility] Volume overload Active 10/23/2015 Problem 11/12/2018 [facility] ESRD on dialysis Active 09/29/2015 Problem 11/12/2018 [facility] Edema Active 09/29/2015 Problem 11/12/2018 [facility] Abdominal pain Active 09/05/2015 Problem 11/12/2018 [facility] Anemia Active 02/26/2015 Problem 11/12/2018 [facility] Hypertension Active 12/17/2014 Problem 11/12/2018 [facility] Malaise and fatigue Active 12/17/2014 Problem 11/12/2018 [facility] Uncontrolled diabetes mellitus Active 12/17/2014 Problem 11/12/2018 [facility] Acute renal failure Active 07/30/2014 Problem 11/12/2018 [facility] Dehydration Active 07/30/2014 Problem 11/12/2018 [facility] Gastroparesis Active 07/30/2014 Problem 11/12/2018 [facility] UTI Active 07/30/2014 Problem 11/12/2018 [facility] Vomiting Active 07/30/2014 Problem 11/12/2018 [facility] Cystitis Active 07/01/2014 Problem 11/12/2018 [facility] Diabetes Active 07/01/2014 Problem 11/12/2018 [facility] Anemia, chronic renal failure Active Problem 11/12/2018 [facility] Cervical strain, acute Active Problem 11/12/2018 [facility] Chest pain Active Problem 11/12/2018 [facility] Dysuria Active Problem 11/12/2018 [facility] ESRD Active Problem 11/12/2018 [facility] Encounter for care related to feeding tube Active Problem 11/12/2018 [facility] Gastroparesis diabeticorum Active Problem 11/12/2018 [facility] Nausea & vomiting Active Problem 11/12/2018 [facility] Pelvic pain Active Problem 11/12/2018 [facility] Renal failure Active Problem 11/12/2018 [facility] Symptomatic anemia Active Problem 11/12/2018 [facility] Syncope Active Problem 11/12/2018 [facility] Vomiting and diarrhea Active Problem 11/12/2018 [facility] Medications Medication Details Route Status Patient Instructions Ordering Provider Order Date Source Promethazine Hcl 12.5 Mg Supp.rect Three Times A Day as needed for Vomiting Active Zeballos 10/20/2018 [facility] Morphine Sulfate (Ms Contin) 30 Mg Tablet.er, Oral Twice A Day Active 09/13/2017 [facility] Ascorbic Acid 500 Mg Tablet Twice A Day Active Kannan 09/10/2017 [facility] Clonazepam 0.5 Mg Tablet Every 8 Hours as needed for Anxiety Active Andrews 09/10/2017 [facility] Ferrous Sulfate 325 Mg Tablet Daily Active Andrews 09/10/2017 [facility] Promethazine Hcl 25 Mg Tablet Every 8 Hours as needed for Nausea Active Andrews 09/10/2017 [facility] Clonazepam 0.5 Mg Tablet Every 8 Hours as needed for Anxiety Active Andrews 07/14/2017 [facility] Clonazepam 1 Mg Tablet, 2 Mg Oral Three Times A Day Active 07/14/2017 [facility] Diphenhydramine Hcl (Benadryl) 25 Mg Capsule, 25 Mg Oral Four Times Daily Active 07/14/2017 [facility] Docusate Sodium (Colace) 100 Mg Cap, 100 Mg Oral As Needed for Constipation Active 07/14/2017 [facility] Fluconazole , 150 Mg Oral Use As Directed Active Andrews 07/14/2017 [facility] Lorazepam (Ativan) 1 Mg Tablet, Oral Twice A Day Active 07/14/2017 [facility] Methocarbamol 500 Mg Tablet, 500 Mg Oral Twice A Day Active 07/14/2017 [facility] Mirtazapine (Remeron) 15 Mg Tab.rapdis, 15 Mg Oral Bedtime Active 07/14/2017 [facility] Morphine Sulfate (Ms Contin) 30 Mg Tablet.er, 30 Mg Oral Every 6 Hours as needed for Pain Active 07/14/2017 [facility] Zolpidem Tartrate (Ambien) 10 Mg Tablet, 10 Mg Oral Bedtime as needed for Sleep Active 07/14/2017 [facility] Linezolid (Zyvox) 600 Mg Tablet, 600 Mg Oral Twice A Day Active Andrews 07/04/2017 [facility] Promethazine Hcl 25 Mg Supp.rect, 1 Supp Rectal Twice A Day as needed for Nausea Active Andrews 07/04/2017 [facility] Ceftin , 500 Mg Oral Daily Active Andrews 06/30/2017 [facility] Fluconazole (Diflucan) 150 Mg Tablet, 150 Mg Oral Once Active Andrews 06/30/2017 [facility] Metoclopramide Hcl 10 Mg Tablet Before Meals And At Bedtime Active Andrews 06/27/2017 [facility] Pantoprazole Sodium (Protonix) 40 Mg Suspdr.pkt Twice Daily Before Meals Active Andrews 06/27/2017 [facility] Diphenhydramine Hcl 50 Mg/1 Ml Disp.syrin, 50 Mg Intraven .before Dialysis Active 06/27/2017 [facility] Lorazepam (Ativan) 2 Mg Tablet, 2 Mg Oral Every Two Hours Active 06/27/2017 [facility] Promethazine Hcl (Phenergan Supp*) 25 Mg Supp, 1 Supp Rectal Twice A Day as needed for Nausea Active Andrews 06/27/2017 [facility] Promethazine Hcl (Phenergan) 25 Mg/1 Ml Ampul, 25 Mg Intraven Every 4 Hours Active 06/27/2017 [facility] Cyclobenzaprine Hcl (Flexeril) 5 Mg Tablet, 10 Mg Oral Twice A Day Active 06/26/2017 [facility] Diphenoxylate Hcl/Atropine (Lomotil Tablet) 1 Each Tablet, 1 Tab Oral As Needed as needed for Diarrhea Active 06/26/2017 [facility] Morphine Sulfate In 0.9 % Nacl (Morphine-Ns 2 Mg/Ml Syringe) 2 Mg/1 Ml Disp.syrin, 4 Mg Intraven Q3hr as needed for Pain Active 06/25/2017 [facility] Docusate Sodium (Colace) 100 Mg Capsule Twice A Day Active [place] 06/03/2017 [facility] Epoetin Bharath (Epogen) 10,000 Unit/1 Ml Vial Every Saturday, Saturday, And Saturday Active Aba 06/03/2017 [facility] Polyethylene Glycol 3350 (Miralax) 17 Gm Powd.pack Daily Active Aba 06/03/2017 [facility] Cefuroxime Axetil (Cefuroxime) 250 Mg Tablet, 250 Mg Oral Every 12 Hours Active Aba 06/03/2017 [facility] Cyclobenzaprine Hcl 10 Mg Tablet, 10 Mg Oral Twice A Day Active [place] 06/03/2017 [facility] Diclofenac Epolamine (Flector) 1 Each Adh..patch, 1 Patch Topical Every 12 Hours Active [place] 06/03/2017 [facility] Fluticasone Propionate 1 Ea [place], 0 Ea Nasal Twice A Day Active [place] 06/03/2017 [facility] Insulin Regular, Human (Humulin R) 100 Unit/1 Ml Vial, 0 Unit Sub-Q Before Meals And At Bedtime Active [place] 06/03/2017 [facility] Sucralfate 1 G/10 Ml Susp, 1 G Oral Before Meals And At Bedtime Active [place] 06/03/2017 [facility] Urea 85.05 Gm Cr, 0 Gm Topical Twice A Day Active [place] 06/03/2017 [facility] Budesonide/Formoterol Fumarate (Symbicort 160-4.5 Mcg Inhaler) 10.2 Gm Hfa.aer.ad Twice A Day Active Andrews 04/11/2017 [facility] Mirtazapine 15 Mg Tab Bedtime Active Andrews 04/11/2017 [facility] Hydroxyzine Hcl 25 Mg Tablet, 25 Mg Oral Three Times A Day as needed for Anxiety Active Andrews 04/11/2017 [facility] Meclizine Hcl 12.5 Mg Tablet, 12.5 Mg Oral Three Times A Day Active 04/11/2017 [facility] Metoclopramide Hcl 10 Mg Tablet, 10 Mg Oral Before Meals And At Bedtime Active Andrews 04/11/2017 [facility] Sucralfate 1 Gm Tablet, 1 Gm Oral Three Times A Day Active Andrews 04/11/2017 [facility] Sucralfate (Carafate) 1 Gm/10 Ml Oral.susp, 1 Gm Oral Three Times A Day Active 04/11/2017 [facility] Temazepam (Restoril) 15 Mg Capsule, 15 Mg Oral Bedtime as needed for Insomnia Active Andrews 04/11/2017 [facility] Zolpidem Tartrate (Ambien) 10 Mg Tablet, 10 Mg Oral Bedtime Active 04/11/2017 [facility] Diphenhydramine Hcl (Benadryl) 25 Mg Capsule, 25 Mg Oral Four Times Daily Active 02/11/2017 [facility] Dicyclomine Hcl (Bentyl) 10 Mg Capsule, 10 Mg Oral As Needed Active 01/23/2017 [facility] Ferrous Sulfate 325 Mg Tablet, 325 Mg Oral Daily Active 01/23/2017 [facility] Pantoprazole Sodium (Protonix) 40 Mg Suspdr.pkt, 40 Mg Oral Twice A Day Active Lars 01/07/2017 [facility] Pantoprazole Sodium (Protonix) 40 Mg Tablet.dr, 40 Mg Oral Daily Active 01/07/2017 [facility] Furosemide (Lasix) 40 Mg Tablet Twice A Day Active [place] 12/20/2016 [facility] Insulin Regular, Human (Humulin R) 100 Unit/1 Ml Vial, 0 Unit Sub-Q Before Meals And At Bedtime Active [place] 12/20/2016 [facility] Loratadine/Pseudoephedrine (Claritin-D 24 Hour Tablet) 1 Each Tab.er.24h, 1 Each Oral Daily Active 12/16/2016 [facility] Fluticasone Propionate 1 Ea [place], 1 Ea Nasal Twice A Day Active Lars 06/13/2016 [facility] Furosemide (Lasix) 40 Mg Tablet, 40 Mg Oral Daily Active Lars 06/13/2016 [facility] Sulfamethoxazole/Trimethoprim (Sulfamethoxazole-Tmp Ds Tablet) 1 Each Tablet, 1 Ea Oral Every 12 Hours Active Lars 06/13/2016 [facility] Carvedilol (Coreg) 12.5 Mg Tab Twice A Day Active Lars 06/02/2016 [facility] Diltiazem Hcl (Cardizem) 30 Mg Tablet Four Times Daily Active Lars 06/02/2016 [facility] Amlodipine Besylate 10 Mg Tablet, 10 Mg Oral Daily Active 06/02/2016 [facility] Diphenhydramine Hcl (Benadryl) 25 Mg Capsule, 50 Mg Oral Active 06/02/2016 [facility] Furosemide (Lasix) 40 Mg Tablet, 40 Mg Oral Daily Active 06/02/2016 [facility] Guaifenesin (Mucinex) 600 Mg Tablet.er, 600 Mg Oral Every 6 Hours Active Lars 06/02/2016 [facility] Labetalol Hcl 300 Mg Tablet, 300 Mg Oral Every 12 Hours Active 06/02/2016 [facility] Levofloxacin (Levaquin) 500 Mg Tablet, 500 Mg Oral Daily At 1700 Active Lars 06/02/2016 [facility] Nifedipine (Nifedipine Er) 30 Mg Tab.er.24, 90 Mg Oral Every 12 Hours Active 06/02/2016 [facility] Orphenadrine Citrate (Norflex) 100 Mg Tab, 100 Mg Oral Twice A Day Active 05/27/2016 [facility] Alprazolam (Xanax) 0.5 Mg Tablet, 0.5 Mg Oral Three Times A Day Active 03/30/2016 [facility] Clonazepam 1 Mg Tablet, 0.5 Mg Oral Three Times A Day Active Alexys 03/30/2016 [facility] Clonazepam 1 Mg Tablet, 1 Mg Oral Three Times A Day Active 03/30/2016 [facility] Gabapentin 100 Mg Capsule, 100 Mg Oral Twice A Day Active Alexys 03/30/2016 [facility] Zolpidem Tartrate (Ambien) 5 Mg Tablet, 5 Mg Oral Bedtime as needed for Insomnia Active Alexys 03/30/2016 [facility] Metoprolol Succinate 50 Mg Tab.er.24h, 50 Mg Oral Every 8 Hours Active 03/22/2016 [facility] Metoclopramide Hcl (Reglan) 10 Mg Tablet, 10 Mg Oral Three Times A Day Active 03/02/2016 [facility] Albuterol Sulfate 0.63 Mg/3 Ml Vial.neb, Every 6 Hours as needed for Wheezing Active 01/02/2016 [facility] Alprazolam (Xanax) 0.5 Mg Tablet, 0.5 Mg Oral Three Times A Day Active 01/02/2016 [facility] Amlodipine Besylate 5 Mg Tablet, 5 Mg Oral Daily Active 01/02/2016 [facility] Insulin Detemir (Levemir) 100 Unit/1 Ml Vial, 4 Units Subcutaneously Daily At 1700 Active 01/02/2016 [facility] Mirtazapine 15 Mg Tab, 7.5 Mg Oral Bedtime Active 01/02/2016 [facility] Morphine Sulfate (Morphine Sulfate Er) 30 Mg Tablet.er, 30 Mg Oral Three Times A Day as needed for Pain Active 01/02/2016 [facility] Zolpidem Tartrate (Ambien) 10 Mg Tablet, 10 Mg Oral Bedtime Active 01/02/2016 [facility] Butalb/Acetaminophen/Caffeine (Tddctm-Royazjyv-Stoe 50-325-40) 1 Each Tablet, Every 6 Hours Active 11/09/2015 [facility] Dicyclomine Hcl (Bentyl) 10 Mg Capsule, 10 Mg Oral Three Times A Day Active Lars 11/09/2015 [facility] Gabapentin 300 Mg Capsule, 300 Mg Oral Twice A Day Active 11/09/2015 [facility] Labetalol Hcl (Trandate) 200 Mg Tablet, 400 Mg Oral Every 8 Hours Active Lars 11/09/2015 [facility] Metoclopramide Hcl (Reglan) 10 Mg Tablet, 10 Mg Oral Before Meals And At Bedtime Active Lars 11/09/2015 [facility] Metoprolol Tartrate 50 Mg Tablet, 50 Mg Oral Every 8 Hours Active 11/09/2015 [facility] Minoxidil 2.5 Mg Tablet, 2.5 Mg Oral Twice A Day Active 11/09/2015 [facility] Neomycin/Polymyxin/Hydrocort 10 Ml Btl, 10 Ml Otic Daily as needed for Pain And Temperature Active Lars 11/09/2015 [facility] Phenytoin Sodium 100 Mg Cap, 200 Mg Oral Every 12 Hours Active Lars 11/09/2015 [facility] Phenytoin Sodium Extended (Dilantin) 100 Mg Capsule, 300 Mg Oral Daily Active 11/09/2015 [facility] Orphenadrine Citrate (Norflex) 100 Mg Tab, 100 Mg Oral Twice A Day Active 10/15/2015 [facility] Tizanidine Hcl 4 Mg Capsule, Twice A Day Active 10/15/2015 [facility] Metronidazole 500 Mg Tablet, 500 Mg Oral Three Times A Day Active [place] 10/14/2015 [facility] Docusate Sodium (Colace) 100 Mg Cap, 100 Mg Oral Twice A Day for Constipation Active Obi-odil09/20/2015 [facility] Doxazosin Mesylate (Cardura) 2 Mg Tablet, 4 Mg Oral Twice A Day Active Obi-odil09/20/2015 [facility] Lorazepam (Ativan*) 0.5 Mg Tablet, 0.5 Mg Oral Three Times A Day Active 09/20/2015 [facility] Sucralfate 1 G/10 Ml Susp, 1 G Oral Before Meals And At Bedtime for Gas Active Obi-e 09/20/2015 [facility] Zolpidem Tartrate (Ambien) 10 Mg Tablet, 10 Mg Oral Bedtime as needed for Insomnia Active Obi-odile 09/20/2015 [facility] Zolpidem Tartrate (Ambien) 10 Mg Tablet, 10 Mg Oral Bedtime Active 09/05/2015 [facility] Digoxin 250 Mcg Tablet, 250 Mg Oral Daily Active 12/29/2014 [facility] Lidocaine Hcl (Lidocaine Hcl Viscous) 20 Mg/1 Ml Solution, 20 Mg Oral Every 6 Hours Active 12/29/2014 [facility] Isosorbide Mononitrate 30 Mg Tabcr, 30 Mg Oral Daily Active 12/26/2014 [facility] Lisinopril (Prinivil) 10 Mg Tablet, 10 Mg Oral Daily Active 12/26/2014 [facility] Metoprolol Succinate 50 Mg Tab.er.24h, 100 Mg Oral Daily Active 12/26/2014 [facility] Nifedipine 30 Mg Tabcr, 90 Mg Oral Every 12 Hours Active 12/26/2014 [facility] Sodium Bicarbonate 650 Mg Tablet, 1300 Mg Oral Twice A Day Active Lonny 12/26/2014 [facility] Docusate Sodium (Colace) 100 Mg Cap, 100 Mg Oral Daily Active Lars 08/06/2014 [facility] Labetalol Hcl (Trandate) 200 Mg Tablet, 200 Mg Oral Every 12 Hours Active Lars 08/06/2014 [facility] Metoclopramide Hcl 5 Mg/Ml Inj, 10 Mg Oral Every 6 Hours Active Lars 08/06/2014 [facility] Metpck 6 Gm Pack, 6 Gm Oral Daily Active Lars 08/06/2014 [facility] [id number] 30 Mg Tabcr, 30 Mg Oral Daily Active Lars 08/06/2014 [facility] [id number] 40 Mg Vial, 40 Mg Oral Twice A Day Active Lars 08/06/2014 [facility] Sennosides (Senokot) 8.6 Mg Tablet, 8.6 Mg Oral Daily Active Lars 08/06/2014 [facility] Alprazolam (Xanax Xr) 1 Mg Tab.er.24h, 1 Mg Oral Daily Active 07/05/2014 [facility] Cefuroxime Axetil (Cefuroxime) 250 Mg Tablet, 250 Mg Oral Every 12 Hours Active Alexys 07/05/2014 [facility] Digoxin (Lanoxin) 250 Mcg Tablet, 250 Mcg Oral Daily Active Alexys 07/05/2014 [facility] Diphenhydramine Hcl (Benadryl) 25 Mg Capsule, 25 Mg Oral Four Times Daily as needed for Active Alexys 07/05/2014 [facility] Esomeprazole Magnesium (Nexium) 40 Mg Capsule.dr, 40 Mg Oral Daily Active Alexys 07/05/2014 [facility] Insulin Glargine (Lantus) 100 Units/Ml Ml, 70 Unit Subcutaneously Every Morning Active [place] 07/05/2014 [facility] Insulin Regular, Human (Humulin R) 100 Unit/1 Ml Vial, 1 Units Subcutaneously As Directed Active [place] 07/05/2014 [facility] Lorazepam (Ativan) 1 Mg Tablet, 1 Mg Oral Twice A Day as needed for Active [place] 07/05/2014 [facility] Lorazepam (Ativan) 1 Mg Tablet, 2 Mg Oral Three Times A Day as needed for Active 07/05/2014 [facility] Losartan Potassium (Cozaar) 25 Mg Tablet, 25 Mg Oral Twice A Day Active [place] 07/05/2014 [facility] Methocarbamol (Robaxin) 500 Mg Tablet, 500 Mg Oral Twice A Day Active [place] 07/05/2014 [facility] Metoprolol Tartrate (Lopressor) 25 Mg Tab, 50 Mg Oral Twice A Day Active [place] 07/05/2014 [facility] Metronidazole (Flagyl) 500 Mg Tablet, 500 Mg Oral Three Times A Day Active [place] 07/05/2014 [facility] Promethazine Hcl 25 Mg Tablet, 25 Mg Oral Daily Active [place] 07/05/2014 [facility] Sucralfate (Carafate) 1 Gm/10 Ml Oral.susp, 1 Gm Oral Every 6 Hours Active [place] 07/05/2014 [facility] Cetirizine Hcl (Zyrtec) 10 Mg Capsule, 10 Mg Oral Daily Active 07/01/2014 [facility] Dicyclomine Hcl (Bentyl) 10 Mg Capsule, 10 Mg Oral Twice A Day Active 07/01/2014 [facility] Iron,Carbonyl (Iron) 45 Mg Tablet, 65 Mg Oral Daily Active 07/01/2014 [facility] Levothyroxine Sodium (Levothroid) 88 Mcg Tablet, 88 Mcg Oral Daily Active 07/01/2014 [facility] Medroxyprogesterone Acetate 10 Mg Tablet, 10 Mg Oral Daily Active 07/01/2014 [facility] Metoclopramide Hcl 10 Mg Tablet, 10 Mg Oral Three Times A Day Active 07/01/2014 [facility] Pantoprazole Sodium (Protonix) 40 Mg Tablet.dr, 40 Mg Oral Daily Active 07/01/2014 [facility] Ranitidine Hcl 300 Mg Tablet, 300 Mg Oral Bedtime Active 07/01/2014 [facility] Sucralfate (Carafate) 1 Gm Tablet, 1 Gm Oral Bedtime Active 07/01/2014 [facility] Hydrochlorothiazide 25 Mg Tablet, 25 Mg Oral Daily Active 06/30/2013 [facility] Morphine Sulfate (Morphine Sulfate Er) 60 Mg Tablet.er, 30 Mg Oral Every 12 Hours as needed Active 06/30/2013 [facility] Promethazine Hcl 25 Mg Tablet, 25 Mg Oral Every 6 Hours Active 06/30/2013 [facility] Diazepam 10 Mg Tablet, 10 Mg Oral Twice A Day Active 06/19/2013 [facility] Dicyclomine Hcl (Bentyl) 20 Mg Tablet, 20 Mg Oral Twice A Day Active 06/19/2013 [facility] Diphenhydramine Hcl (Benadryl) 50 Mg/1 Ml Vial, 12.5 Mg Intraven Every 3-4 Hours as needed Active 02/04/2013 [facility] Bisacodyl (Dulcolax) 10 Mg Supp.rect, Mg Oral Every 7 Days Active 10/03/2012 [facility] Diphenhydramine Hcl (Benadryl) 25 Mg Capsule, 25 Mg Oral As Needed Active 10/03/2012 [facility] Magnisium Citrate , 1 Bottle Oral Q7days Active 10/03/2012 [facility] Promethazine Hcl (Phenergan Supp*) 25 Mg Supp, 25 Mg Rectal As Needed Active 10/03/2012 [facility] Ciprofloxacin Hcl 500 Mg Tablet, 500 Mg Oral Twice A Day Active 09/26/2012 [facility] Tobramycin/Dexamethasone (Tobradex Eye Drops) 5 Ml Soln, 2 Drop Left Eye Three Times A Day Active 09/26/2012 [facility] Baclofen 10 Mg Tablet, 10 Mg Oral Twice A Day Active 09/13/2012 [facility] Albuterol Sulfate 0.63 Mg/3 Ml Vial.neb Every 6 Hours While Awake Active [facility] Albuterol Sulfate (Albuterol Sulfate Hfa) 8.5 Gm Hfa.aer.ad As Needed as needed for Shortness Of Breath Active [facility] Folic Acid/Vitamin B Comp W-C (Dialyvite Tablet) 1 Each Tablet Daily Active [facility] Insulin Regular, Human (Humulin R) 100 Unit/1 Ml Vial As Needed Active [facility] Ipratropium [place] 0.2 Mg/1 Ml Solution As Needed Active [facility] Levetiracetam (Keppra) 500 Mg Tablet Twice A Day Active [facility] Phenytoin Sodium Extended (Dilantin) 100 Mg Capsule Every 12 Hours Active [facility] Promethazine Hcl 25 Mg Tablet Three Times A Day as needed for Nausea Active [facility] Allergies, Adverse Reactions, Alerts Substance Category Reaction Severity Reaction type Status Date Reported Comments Source ketorolac tromethamine Unknown Allergy to Substance Active 02/23/2018 [facility] ondansetron HCl Unknown Allergy to Substance Active 02/23/2018 [facility] Penicillin Unknown Allergy to Substance Active 02/23/2018 [facility] Latex Mild Allergy to Substance Active 02/23/2018 [facility] Hydrocodone Unknown Allergy to Substance Active 02/23/2018 [facility] Aspirin Unknown Allergy to Substance Active 02/23/2018 [facility] Ibuprofen GI upset Unknown Allergy to Substance Active 02/23/2018 [facility] Fentanyl Unknown Allergy to Substance Active 02/23/2018 [facility] Tramadol Unknown Allergy to Substance Active 02/23/2018 [facility] Clonidine Unknown Allergy to Substance Active 02/23/2018 [facility] Hydromorphone Unknown Allergy to Substance Active 02/23/2018 [facility] Metoclopramide Unknown Allergy to Substance Active 02/23/2018 [facility] Nitroglycerin Severe Allergy to Substance Active 02/27/2018 [facility] Acetaminophen NAUSEA AND VOMITTING Severe Allergy to Substance Active 02/27/2018 [facility] Immunizations No Data Provided for This Section Results Order Name Results Value Reference Range Date Interpretation Comments Source Blood leukocytes automated count (number/volume) 3.33 4.8 - 10.8 10/17/2018 [facility] Blood erythrocytes automated count (number/volume) 3.28 3.6 - 5.1 10/17/2018 [facility] Blood hemoglobin measurement (moles/volume) 8.9 12.0 - 16.0 10/17/2018 [facility] Automated blood hematocrit (volume fraction) 31.2 34.2 - 44.1 10/17/2018 [facility] Automated erythrocyte mean corpuscular volume 95.1 81 - 99 10/17/2018 [facility] Automated erythrocyte mean corpuscular hemoglobin (mass per erythrocyte) 27.1 28 - 32 10/17/2018 [facility] Automated erythrocyte mean corpuscular hemoglobin concentration measurement (mass/volume) 28.5 31 - 35 10/17/2018 [facility] RDW BldCo-Rto 18.2 11.7 - 14.4 10/17/2018 [facility] Automated blood platelet count (count/volume) 143 140 - 360 10/17/2018 [facility] Automated blood segmented neutrophil count as percentage of total leukocytes 57.4 38.7 - 80.0 10/17/2018 [facility] Automated blood lymphocyte count as percentage ot total leukocytes 29.7 18.0 - 39.1 10/17/2018 [facility] Automated blood monocyte count as percentage of total leukocytes 8.4 4.4 - 11.3 10/17/2018 [facility] Automated blood eosinophil count as percentage of total leukocytes 3.3 0.0 - 6.0 10/17/2018 [facility] Automated blood basophil count as percentage of total leukocytes 0.6 0.0 - 1.0 10/17/2018 [facility] IM GRANULOCYTES % 0.6 0.0 - 1.0 10/17/2018 [facility] Automated blood neutrophil count 1.9 2.1 - 6.9 10/17/2018 [facility] Blood lymphocytes count (number/volume) 1.0 1.0 - 3.2 10/17/2018 [facility] Blood monocytes automated count (number/volume) 0.3 0.2 - 0.8 10/17/2018 [facility] Automated blood eosinophil count 0.1 0.0 - 0.4 10/17/2018 [facility] Automated blood basophil count (count/volume) 0.0 0.0 - 0.1 10/17/2018 [facility] Absolute Immature Granulocyte (auto 0.02 0 - 0.1 10/17/2018 [facility] Serum or plasma sodium measurement (moles/volume) 141 136 - 145 10/17/2018 [facility] Serum or plasma potassium measurement (moles/volume) 3.6 3.5 - 5.1 10/17/2018 [facility] Serum or plasma chloride measurement (moles/volume) 108 98 - 107 10/17/2018 [facility] Serum or plasma carbon dioxide, total measurement (moles/volume) 19 22 - 29 10/17/2018 [facility] Serum or plasma anion gap 17.6 8 - 16 10/17/2018 [facility] Serum or plasma urea nitrogen measurement (mass/volume) 15 7 - 26 10/17/2018 [facility] Serum or plasma creatinine measurement (mass/volume) 3.54 0.57 - 1.11 10/17/2018 [facility] Serum or plasma urea nitrogen/creatinine mass ratio 4 6 - 25 10/17/2018 [facility] Estimated glomerular filtration rate (GFR) determination 18 60 10/17/2018 [facility] Glucose measurement 154 74 - 118 10/17/2018 [facility] Serum or plasma calcium measurement (mass/volume) 7.9 8.4 - 10.2 10/17/2018 [facility] Serum or plasma total bilirubin measurement (mass/volume) 0.4 0.2 - 1.2 10/17/2018 [facility] Aspartate Amino Transf (AST/SGOT) 17 5 - 34 10/17/2018 [facility] Serum or plasma alanine aminotransferase measurement (enzymatic activity/volume) 9 0 - 55 10/17/2018 [facility] Serum or plasma protein measurement (mass/volume) 7.3 6.5 - 8.1 10/17/2018 [facility] Serum or plasma albumin measurement (mass/volume) 2.9 3.5 - 5.0 10/17/2018 [facility] Plasma globulin measurement (mass/volume) 4.4 2.3 - 3.5 10/17/2018 [facility] Serum or plasma albumin/globulin mass ratio 0.7 0.8 - 2.0 10/17/2018 [facility] Serum or plasma alkaline phosphatase measurement (enzymatic activity/volume) 147 40 - 150 10/17/2018 [facility] Capillary blood glucose measurement by glucometer (mass/volume) 247 70 - 120 02/27/2018 [facility] Capillary blood glucose measurement by glucometer (mass/volume) 247 70 - 120 02/27/2018 [facility] Serum or plasma sodium measurement (moles/volume) 136 136 - 145 02/27/2018 [facility] Serum or plasma potassium measurement (moles/volume) 3.4 3.5 - 5.1 02/27/2018 [facility] Serum or plasma chloride measurement (moles/volume) 101 98 - 107 02/27/2018 [facility] Serum or plasma carbon dioxide, total measurement (moles/volume) 19 22 - 29 02/27/2018 [facility] Serum or plasma anion gap 19.4 8 - 16 02/27/2018 [facility] Serum or plasma urea nitrogen measurement (mass/volume) 57 7 - 26 02/27/2018 [facility] Serum or plasma creatinine measurement (mass/volume) 6.34 0.57 - 1.11 02/27/2018 [facility] Serum or plasma urea nitrogen/creatinine mass ratio 9 6 - 25 02/27/2018 [facility] Estimated glomerular filtration rate (GFR) determination 9 60 02/27/2018 [facility] Glucose measurement 62 74 - 118 02/27/2018 [facility] Serum or plasma calcium measurement (mass/volume) 6.9 8.4 - 10.2 02/27/2018 [facility] Serum or plasma total bilirubin measurement (mass/volume) 0.3 0.2 - 1.2 02/27/2018 [facility] Aspartate Amino Transf (AST/SGOT) 22 5 - 34 02/27/2018 [facility] Serum or plasma alanine aminotransferase measurement (enzymatic activity/volume) 28 0 - 55 02/27/2018 [facility] Serum or plasma protein measurement (mass/volume) 7.4 6.5 - 8.1 02/27/2018 [facility] Serum or plasma albumin measurement (mass/volume) 2.9 3.5 - 5.0 02/27/2018 [facility] Plasma globulin measurement (mass/volume) 4.5 2.3 - 3.5 02/27/2018 [facility] Serum or plasma albumin/globulin mass ratio 0.6 0.8 - 2.0 02/27/2018 [facility] Serum or plasma alkaline phosphatase measurement (enzymatic activity/volume) 175 40 - 150 02/27/2018 [facility] Serum or plasma magnesium measurement (mass/volume) 2.3 1.3 - 2.1 02/27/2018 [facility] Serum or plasma creatine kinase measurement (enzymatic activity/volume) 72 29 - 168 02/27/2018 [facility] Serum or plasma creatine kinase MB measurement (mass/volume) 3.80 0 - 5.0 02/27/2018 [facility] Troponin I measurement by highly sensitive enzyme immunoassay 0.018 0 - 0.300 02/27/2018 [facility] Blood leukocytes automated count (number/volume) 3.98 4.8 - 10.8 02/27/2018 [facility] Blood erythrocytes automated count (number/volume) 3.97 3.6 - 5.1 02/27/2018 [facility] Blood hemoglobin measurement (moles/volume) 11.0 12.0 - 16.0 02/27/2018 [facility] Automated blood hematocrit (volume fraction) 36.8 34.2 - 44.1 02/27/2018 [facility] Automated erythrocyte mean corpuscular volume 92.7 81 - 99 02/27/2018 [facility] Automated erythrocyte mean corpuscular hemoglobin (mass per erythrocyte) 27.7 28 - 32 02/27/2018 [facility] Automated erythrocyte mean corpuscular hemoglobin concentration measurement (mass/volume) 29.9 31 - 35 02/27/2018 [facility] RDW BldCo-Rto 16.7 11.7 - 14.4 02/27/2018 [facility] Automated blood platelet count (count/volume) 174 140 - 360 02/27/2018 [facility] Automated blood segmented neutrophil count as percentage of total leukocytes 68.2 38.7 - 80.0 02/27/2018 [facility] Automated blood lymphocyte count as percentage ot total leukocytes 21.1 18.0 - 39.1 02/27/2018 [facility] Automated blood monocyte count as percentage of total leukocytes 6.3 4.4 - 11.3 02/27/2018 [facility] Automated blood eosinophil count as percentage of total leukocytes 3.3 0.0 - 6.0 02/27/2018 [facility] Automated blood basophil count as percentage of total leukocytes 0.8 0.0 - 1.0 02/27/2018 [facility] IM GRANULOCYTES % 0.3 0.0 - 1.0 02/27/2018 [facility] Automated blood neutrophil count 2.7 2.1 - 6.9 02/27/2018 [facility] Blood lymphocytes count (number/volume) 0.8 1.0 - 3.2 02/27/2018 [facility] Blood monocytes automated count (number/volume) 0.3 0.2 - 0.8 02/27/2018 [facility] Automated blood eosinophil count 0.1 0.0 - 0.4 02/27/2018 [facility] Automated blood basophil count (count/volume) 0.0 0.0 - 0.1 02/27/2018 [facility] Absolute Immature Granulocyte (auto 0.01 0 - 0.1 02/27/2018 [facility] Serum or plasma magnesium measurement (mass/volume) 2.3 1.3 - 2.1 02/27/2018 [facility] Serum or plasma creatine kinase measurement (enzymatic activity/volume) 72 29 - 168 02/27/2018 [facility] Serum or plasma creatine kinase MB measurement (mass/volume) 3.80 0 - 5.0 02/27/2018 [facility] Troponin I measurement by highly sensitive enzyme immunoassay 0.018 0 - 0.300 02/27/2018 [facility] Lactic Acid Level 21.3 4.5 - 19.8 11/23/2017 [facility] Serum or plasma amylase measurement (enzymatic activity/volume) 32 25 - 125 11/23/2017 [facility] Serum or plasma lipase measurement (enzymatic activity/volume) 16 8 - 78 11/23/2017 [facility] Serum or plasma choriogonadotropin ( test) detection NEGATIVE NEGATIVE 11/23/2017 [facility] Urine human chorionic gonadotropin (hCG) detection NEGATIVE NEGATIVE 10/23/2017 [facility] 2885.4 0 - 100 09/13/2017 [facility] Urine color determination YELLOW YELLOW 09/12/2017 [facility] Urine clarity CLEAR CLEAR 09/12/2017 [facility] Specific gravity of Urine by Test strip 1.015 1.010 - 1.025 09/12/2017 [facility] Urine pH measurement by automated test strip 7 5 - 7 09/12/2017 [facility] Urine leukocyte esterase detection by dipstick NEGATIVE NEGATIVE 09/12/2017 [facility] Urine nitrite detection NEGATIVE NEGATIVE 09/12/2017 [facility] Urine protein measurement by test strip (mass/volume) 3+ NEGATIVE 09/12/2017 [facility] Urine glucose detection NEGATIVE NEGATIVE 09/12/2017 [facility] Urine ketones detection by automated test strip NEGATIVE NEGATIVE 09/12/2017 [facility] Urine urobilinogen measurement by test strip (mass/volume) 0.2 0.2 - 1 09/12/2017 [facility] Urine total bilirubin measurement (mass/volume) NEGATIVE NEGATIVE 09/12/2017 [facility] Urine erythrocytes detection 1+ NEGATIVE 09/12/2017 [facility] Automated urine sediment leukocyte count by microscopy (number/high power field) 6-10 0 - 5 09/12/2017 [facility] Erythrocytes detection in urine sediment by light microscopy 6-10 0 - 5 09/12/2017 [facility] Bacteria detection in urine sediment by light microscopy RARE NONE 09/12/2017 [facility] Epithelial cells detection in urine sediment by light microscopy MODERATE NONE 09/12/2017 [facility] Mucus detection in urine sediment by light microscopy FEW RARE 09/12/2017 [facility] Serum hepatitis B virus surface antibody assay by radioimmunoassay (units/volume) 469.5 Immunity>9.9 09/12/2017 [facility] Serum or plasma hepatitis B virus core antibody detection by immunoassay Negative Negative 09/12/2017 [facility] Serum or plasma hepatitis B virus surface antigen detection by immunoassay Negative Negative 09/12/2017 [facility] Phosphorus measurement 3.6 2.3 - 4.7 09/12/2017 [facility] Serum or plasma levetiracetam measurement (mass/volume) 18.2 10.0 - 40.0 09/12/2017 [facility] Serum or plasma phenytoin measurement (mass/volume) 1.30 10 - 20 09/11/2017 [facility] Blood culture NO GROWTH AFTER 5 DAYS, FINAL REPORT 09/11/2017 [facility] Hemoglobin A1c Percent 7.4 4.0 - 7.0 09/10/2017 [facility] Serum or plasma iron measurement (mass/volume) 37 50 - 170 09/10/2017 [facility] Serum or plasma iron binding capacity measurement (mass/volume) 165 261 - 478 09/10/2017 [facility] Serum or plasma iron saturation measurement (mass fraction) 22 15 - 50 09/10/2017 [facility] Serum or plasma transferrin measurement (mass/volume) 118 180 - 382 09/10/2017 [facility] Blood platelets count by estimate (number/volume) MODERATELY DECREASED 09/09/2017 [facility] Platelet morphology NORMAL 09/09/2017 [facility] Blood hypochromia detection by light microscopy MODERATE 09/09/2017 [facility] Blood poikilocytosis detection by light microscopy SLIGHT 09/09/2017 [facility] Blood anisocytosis detection by light microscopy SLIGHT 09/09/2017 [facility] RBC morphology ABNORMAL 09/09/2017 [facility] Prothrombin time (PT) in platelet poor plasma by coagulation assay 16.8 11.9 - 14.5 07/12/2017 [facility] INR in Platelet poor plasma by Coagulation assay 1.48 07/12/2017 [facility] Serum hepatitis B virus e antigen detection by enzyme immunoassay Negative Negative 07/10/2017 [facility] Qualitative serum or plasma hepatitis B virus e antibody by enzyme immunoassay Negative Negative 07/09/2017 [facility] Serum or plasma chorionic gonadotropin measurement (mass/volume) < 1.20 0 - 10 07/08/2017 [facility] Yeast detection in urine sediment by light microscopy MODERATE NONE 07/07/2017 [facility] Activated partial thromboplastin time (aPTT) in platelet poor plasma bycoagulation assay 31.8 23.8 - 35.5 07/05/2017 [facility] Serum or plasma thyrotropin measurement by detection limit <=0.005 miu/l (units/volume) 1.112 0.350 - 4.940 07/05/2017 [facility] Urine opiates screening test POSITIVE NEGATIVE 07/05/2017 [facility] Barbiturates screen, urine POSITIVE NEGATIVE 07/05/2017 [facility] Urine phencyclidine detection by screening method NEGATIVE NEGATIVE 07/05/2017 [facility] Urine amphetamines detection by screen method > 1000 ng/mL NEGATIVE NEGATIVE 07/05/2017 [facility] Urine Methamphetamines Screen NEGATIVE NEGATIVE 07/05/2017 [facility] Urine benzodiazepines detection by screening method POSITIVE NEGATIVE 07/05/2017 [facility] Urine cocaine measurement (mass/volume) NEGATIVE NEGATIVE 07/05/2017 [facility] Urine cannabinoids detection by screening method NEGATIVE NEGATIVE 07/05/2017 [facility] Urine methadone screen NEGATIVE NEGATIVE 07/05/2017 [facility] Amorphous sediment detection in urine sediment by light microscopy RARE FEW 07/05/2017 [facility] Fibrin D-dimer DDU measurement in platelet poor plasma (mass/volume) 0.41 0.00 - 0.45 07/02/2017 [facility] Serum or plasma phospholipid measurement (mass/volume) 225 06/06/2017 [facility] Stool gastrointestinal hemoglobin detection POSITIVE NEGATIVE 06/06/2017 [facility] Differential Total Cells Counted 100 06/03/2017 [facility] Manual blood neutrophils/100 leukocytes 71 40 - 74 06/03/2017 [facility] Manual blood lymphocytes/100 leukocytes 20 19 - 48 06/03/2017 [facility] Manual blood monocytes/100 leukocytes 4 3.4 - 9.0 06/03/2017 [facility] Manual blood eosinophil count as percentage of total leukocytes 5 0 - 7 06/03/2017 [facility] Blood polychromasia detection by light microscopy FEW 06/03/2017 [facility] Serum or plasma ferritin measurement (mass/volume) 956.34 4.63 - 204.00 06/01/2017 [facility] Serum or plasma hepatitis A virus IgM antibody detection by immunoassay Negative 05/31/2017 [facility] Serum or plasma hepatitis B virus core IgM antibody detection by immunoassay Negative 05/31/2017 [facility] Serum hepatitis C virus antibody detection 0.1 05/31/2017 [facility] Transitional cells detection in urine sediment by light microscopy FEW NONE 05/30/2017 [facility] Renal epithelial cells detection in urine sediment by light microscopy FEW NONE 05/30/2017 [facility] Bacterial urine culture Urine Culture [facility] Pathology Reports No Data Provided for This [...] Date DC Date Status Source Discharged Inpatient [id number] JOHN BAHENA MD 05/30/2017 06/03/2017 [facility] Departed Emergency Room [id number] RY DRAPER MD 06/05/2017 06/05/2017 [facility] Departed Emergency Room [id number] MIREILLE AMOR MD 06/06/2017 06/07/2017 [facility] Discharged Inpatient (obs) [id number] JOHN BAHENA MD 06/25/2017 06/27/2017 [facility] Discharged Inpatient [id number] JOHN BAHENA MD 06/29/2017 06/30/2017 [facility] Discharged Inpatient [id number] JOHN BAHENA MD 07/02/2017 07/04/2017 [facility] Departed Emergency Room [id number] INA ELIAS 07/05/2017 07/05/2017 [facility] Discharged Inpatient [id number] JOHN BAHENA MD 07/10/2017 07/14/2017 [facility] Discharged Inpatient (obs) [id number] JOHN BAHENA MD 08/02/2017 08/04/2017 [facility] Discharged Inpatient (obs) [id number] JOHN BAHENA MD 09/08/2017 09/10/2017 [facility] Discharged Inpatient [id number] JOHN BAHENA MD 09/11/2017 09/13/2017 [facility] Departed Emergency Room [id number] SAM BLACK MD 09/14/2017 09/14/2017 [facility] Departed Emergency Room [id number] YR DRAPER MD 09/16/2017 09/16/2017 [facility] Departed Emergency Room [id number] JOSE F DOZIER MD 10/23/2017 10/23/2017 [facility] Departed Emergency Room [id number] MIREILLE AOMR MD 11/23/2017 11/23/2017 [facility] Departed Emergency Room [id number] JIA AREVALO MD 11/23/2017 11/23/2017 [facility] Departed Emergency Room [id number] SAM BLACK MD 02/23/2018 02/23/2018 [facility] Departed Emergency Room [id number] KELSEA JAFFE MD 02/27/2018 02/27/2018 [facility] Departed Emergency Room [id number] GALEN SALINAS MD 10/17/2018 10/17/2018 [facility] Departed Emergency Room [id number] SAM EATON MD 10/18/2018 10/18/2018 [facility] Departed Emergency Room [id number] RJ PINON MD 10/20/2018 10/20/2018 [facility] Departed Emergency Room [id number] VANESA PATTON MD 11/12/2018 11/12/2018 [facility] Procedures Procedure Code Date Perfomer Comments Source Computed tomography of brain without radiopaque contrast [id number] 02/23/2018 [facility] PERFORMANCE OF URINARY FILTRATION, <6 HRS/DAY [id number] 09/12/2017 [facility] CT of abdomen and pelvis without contrast [id number] 09/11/2017 [facility] Computed tomography of brain without radiopaque contrast [id number] 09/11/2017 [facility] BLOOD TRANSFUSION SERVICE [id number] 09/08/2017 [facility] HEMODIALYSIS ONE EVALUATION [id number] 09/08/2017 [facility] Computed tomography of brain without radiopaque contrast [id number] 09/08/2017 [facility] Computed tomography of cervical spine without contrast [id number] 09/08/2017 [facility] Unsched dialysis ESRD pt hos [id number] 08/02/2017 [facility] INSERTION OF FEEDING DEVICE INTO JEJUNUM, ENDO [id number] 07/12/2017 [facility] PERFORMANCE OF URINARY FILTRATION, <6 HRS/DAY [id number] 07/10/2017 [facility] EXCISION OF STOMACH, PYLORUS, ENDO, DIAGN [id number] 07/09/2017 [facility] US abdomen complete [id number] 06/30/2017 [facility] PERFORMANCE OF URINARY FILTRATION, <6 HRS/DAY [id number] 06/29/2017 [facility] CT of abdomen and pelvis without contrast [id number] 06/29/2017 [facility] CT of abdomen and pelvis without contrast [id number] [facility]/05[facility]AUT RED BLOOD CELLS IN PERIPH VEIN, PERC [id number] 06/03/2017 [facility] PERFORMANCE OF URINARY FILTRATION, <6 HRS/DAY [id number] 06/03/2017 [facility] INSERTION OF INFUSION DEV INTO SUP VENA CAVA, PERC APPROACH [id number] 05/31/2017 [facility] FLUOROSCOPY OF OTHER VEINS USING LOW OSMOLAR CONTRAST [id number] 05/31/2017 [facility] REMOVAL OF INFUSION DEVICE FROM UPPER VEIN, AUTOMATIC SILK SCREEN PRINTER APPROACH [id number] 05/31/2017 [facility] INSERT OF TUNNEL VAD INTO CHEST SUBCU/FASCIA, PERC APPROACH [id number] 05/31/2017 [facility] PERFORMANCE OF URINARY FILTRATION, <6 HRS/DAY [id number] 05/31/2017 [facility] X-ray of chest, single view [id number] 05/30/2017 [facility] Assessment and Plan No Data Provided for This Section Plan of Care Plan of Care Date Source Discharge Date 11/12/18 6:37am Disposition HOME, SELF-CARE Condition at Discharge Stable Instructions/Education Provided Abdominal Pain - Adult Forms Provided Work/School Excuse Prescriptions See Medication Section Additional Instructions/Education CONTINUE WITH DIALYSIS TODAY, DO NOT MISS NO MORE THAN ONE PHENERGAN EVERY 6 HOURS. USE MAG CIT[employer]ATE DIRECTED. AND FLEETS ENEMA DIRECTED. FOLLOW UP WITH PCP. 11/12/2018 [facility] Discharge Date 10/20/18 2:39am Disposition HOME, SELF-CARE Condition at Discharge Stable Instructions/Education Provided Anemia Contusion Diarrhea - Adult Ear Pain - Adult Hyperglycemia Vomiting - Adult Forms Provided Work/School Excuse Prescriptions See Medication Section Referrals JOHN BAHENA MD Address: [address] [place] [phone] Note: Please follow up with Dr Church [...] this will help with the pain 10/20/2018 [facility] Discharge Date 02/27/18 9:42pm Disposition HOME, SELF-CARE Condition at Discharge Stable Instructions/Education Provided Chest Pain - Chest Wall Hypertension Forms Provided Work/School Excuse Prescriptions See Medication Section Referrals JOHN BAHENA MD Address: [address] [place] [address] [phone] Additional Instructions/Education 1. FOLLOW UP FOR SCHEDULED DIALYSIS TREATMENT TOMORROW. 2. FOLLOW UP WITH YOUR PCP TOMORROW. 3. RETURN TO ED IF SYMPTOMS WORSEN OR HAVE ANY CONCERNS. 02/27/2018 [facility] Social History Social History Date Source Social [...] Status Start Date Stop Date Never Smoker 11/12/2018 [facility] Family History Value Date Source Relationship Condition [...] of hypertension 40's - 50 07/01/2014 1:03pm 11/12/2018 [facility] Relationship Condition Age at Onset Recorded Date/Time 33 Father FH: kidney disease Not Recorded 06/25/2017 11:29pm 33 Father FH: liver disease Not Recorded 06/25/2017 11:29pm 33 Father Family history of diabetes mellitus 30's - 40 07/01/2014 1:03pm 33 Father Family history of hypertension 30's - 40 07/01/2014 1:03pm 32 Mother Family history of hypertension 40's - 50 07/01/2014 1:03pm 10/20/2018 [facility] Relationship Condition Age at Onset Recorded Date/Time 33 Father FH: kidney disease Not Recorded 06/25/2017 11:29pm 33 Father FH: liver disease Not Recorded 06/25/2017 11:29pm 33 Father Family history of diabetes mellitus 30's - 40 07/01/2014 1:03pm 33 Father Family history of hypertension 30's - 40 07/01/2014 1:03pm 32 Mother Family history of hypertension 40's - 50 07/01/2014 1:03pm 02/27/2018 [facility] Advance Directives Order Name Results Value Date Source Advance Directives Advance Directives Directive Response Recorded Date/Time Does the patient have an advance directive? No 11/12/18 5:34am If yes, is advance directive on file with [facility]? No 09/11/17 8:00pm If not on file with [facility] will patient provide a copy? No 11/12/18 5:34am Do you have a Directive to Physician? No 11/12/18 5:34am Do you have a Medical Power of Brick Machine Operator? No 11/12/18 5:34am Do you have an out of hospital Do Not Resuscitate Order? No 11/12/18 5:34am Do you have any special needs we should be aware of? No 11/12/18 5:34am Do you have a support person here with you today? Yes 11/12/18 5:34am Did patient receive Notice of Privacy Practices? Yes 11/12/18 5:34am Did patient receive patient rights and responsibilities? Yes 11/12/18 5:34am 11/12/2018 [facility] Advance Directives Advance Directives Directive Response Recorded Date/Time Does the patient have an advance directive? Yes 11/23/17 3:46pm If yes, is advance directive on file with [facility]? No 09/11/17 8:00pm If not on file with [facility] will patient provide a copy? Yes 11/23/17 2:24am 10/20/2018 [facility] Advance Directives Advance Directives Directive Response Recorded Date/Time Does the patient have an advance directive? Yes 11/23/17 3:46pm If yes, is advance directive on file with [facility]? No 09/11/17 8:00pm If not on file with [facility] will patient provide a copy? Yes 11/23/17 2:24am Do you have a Directive to Physician? Yes 02/27/18 2:07pm Do you have a Medical Power of Brick Machine Operator? Yes 02/27/18 2:07pm Do you have an [...] rights and responsibilities? Yes 02/27/18 2:07pm 02/27/2018 [facility] Functional Status No Data Provided for This Section
--- OUTSIDE RECORDS SUMMARY | 2018-11-22 17:02 | XMS REPORT | Summary of Care ---
Author Author [facility] - Health Organization [facility] - Health Address Unknown Phone Unavailable Care Team Providers Care Air Defense Specialist Name Role Phone Pcp, Patient Does Not Have A PCP Reason for Visit * Reason Comments Intake Referral Encounter Details Care Team Description Date Type Department Bipin Blas MD [address] [place] [address] Intake Referral 10/22/2018 Telephone [facility] [address] [place] [phone] Allergies Not on Filedocumented as of this encounter (statuses as of 11/18/2018) Medications Not on filedocumented as of this encounter (statuses as of 11/18/2018) Active Problems Not on filedocumented as of this encounter (statuses as of 11/18/2018) Immunizations Name Administration Dates Next Due Influenza Virus Vaccine 05/16/2018 PPD (TB) 08/15/2018 Pneumococcal 05/01/2018 Polysaccharide, PPSV23 (PNEUMOVAX) documented as of this encounter Social History Date Tobacco Use Types Packs/Day [...] / Dates Group Medicaid [facility] xxxxxxxxx 2016- [address] [employer]NAGED MEDICAID HEALTHCARE Present [id number] MEDICAID [place], [place] documented as of this encounter
--- NOTE | 2018-11-22 17:13 | NUR ---
GETTING HX AND EVAL/PHYSICAL
[2018-11-22] MEDS ORDERED: MORPHINE SULFATE INJ 4 MG/ML INJ 1ML IV PRN (17:30)
[2018-11-22] MEDS ORDERED: PROMETHAZINE 25MG/ NS 50ML (IV) IV NR (17:30)
[2018-11-22] MEDS ORDERED: DIPHENHYDRAMINE HCL 25 MG CAP PO ONE (17:30)
[2018-11-22] MEDS ORDERED: DIPHENHYDRAMINE HCL INJ 50 MG/ML VIAL ONE (17:44)
[2018-11-22] MEDS ORDERED: MORPHINE SULFATE INJ 4 MG/ML INJ 1ML ONE (17:44)
[2018-11-22] MEDS ORDERED: PROMETHAZINE HCL (IM) 25 MG/ML VIAL ONE ×2 (17:45→21:09)
[2018-11-22] MEDS ORDERED: SODIUM CHLORIDE 0.9% 100 ML 100 ML ONE (17:45)
[2018-11-22] MEDS ORDERED: DIPHENHYDRAMINE HCL INJ 50 MG/ML VIAL IV ONE (18:00)
--- NOTE | 2018-11-22 18:21 | NUR ---
RESTING COMFORTABLY. REMAINS [facility]OM STATES PATIENT IS "ALWAYS" TACHYCARDIC.
[2018-11-22] MEDS ORDERED: LORAZEPAM 0.5 MG TAB PO ONE (18:45)
[2018-11-22] MEDS ORDERED: LORAZEPAM 1 MG TAB PO ONE (19:00)
--- NOTE | 2018-11-22 19:01 | NUR ---
ULTRASOUND ON WAY TO DO R/O DVT. UPDATED PLAN OF CARE. LABS EXPLAINED TO PT BY
--- NOTE | 2018-11-22 20:44 | Diagnostic Imaging Report ---
EXAM: CT Abdomen and Pelvis WITHOUT contrast INDICATION: Fell. Left-sided abdominal pain. ^[id number]: Abdominal pelvis CT 11/12/2018. TECHNIQUE: Abdomen and pelvis were scanned utilizing a multidetector helical scanner from the lung base to the pubic symphysis without administration of IV contrast. Absence of intravenous contrast decreases sensitivity for detection of focal lesions and vascular pathology. Coronal and sagittal reformations were obtained. Routine protocol was performed. IV CONTRAST: None ORAL CONTRAST: None COMPLICATIONS: None RADIATION DOSE: Total DLP: 643.35 mGy*cm Estimated effective dose: (DLP x 0.015 x size factor) mSv CTDIvol has been reviewed. It is below the limits set by the Radiation Protocol Committee (RPC). Dose modulation, iterative reconstruction, and/or weight based adjustment of the mA/kV was utilized to reduce the radiation dose to as low as reasonably achievable. FINDINGS: LINES and TUBES: Partially visualized superior approach central venous catheter with tip in the right atrium unchanged.. Left chest wall subcutaneous device in place. LOWER THORAX: Bilateral small pleural effusions. Mild enlargement of the heart. Patchy groundglass density in the lungs bilaterally suggestive of edema. HEPATOBILIARY: Stable splenomegaly. No focal hepatic lesions. No biliary ductal dilation. GALLBLADDER: Cholecystectomy. SPLEEN: No splenomegaly. PANCREAS: No focal masses or ductal dilatation. ADRENALS: No adrenal nodules KIDNEYS/URETERS: Bilateral renal atrophy. No hydronephrosis. No cystic or solid mass lesions. No stones. GI TRACT: No abnormal distention, wall thickening, or evidence of bowel obstruction. Mild stool burden in the colon. Appendix is normal. PELVIC ORGANS/BLADDER: Mild circumferential bladder wall thickening again observed. Trace air in the bladder lumen.. LYMPH NODES: No lymphadenopathy. VESSELS: There is moderate atherosclerotic disease in the aorta and major arterial branches. PERITONEUM / RETROPERITONEUM: Trace volume ascites. BONES: Increased density of the visualized skeleton likely renal osteodystrophy. SOFT TISSUES: There is mild diffuse anasarca. There is a fat containing para-umbilical hernia. IMPRESSION: 1. Pulmonary edema, and bilateral small pleural effusions. 2. Renal osteodystrophy. Signed by: Dr. Blaze Marshall M.D. on 11/22/2018 8:41 PM
[2018-11-22 21:19] VITALS: BP 135/77
--- NOTE | 2018-11-22 22:15 | Diagnostic Imaging Report ---
EXAM: Right Upper Extremity Duplex Ultrasound INDICATION: Pain and swelling. COMPARISON: None TECHNIQUE: Grayscale, color Doppler and spectral waveform analysis of the right upper extremity venous system and internal jugular vein were performed. FINDINGS: Internal Jugular: Fully compressible with normal spontaneous waveforms Subclavian: Not well visualized Normal spontaneous waveforms Axillary: Fully compressible with normal spontaneous waveforms Brachial: Fully compressible with normal spontaneous waveforms Basilic: Fully compressible with normal spontaneous waveforms Cephalic: Fully compressible with normal spontaneous waveforms IMPRESSION: No evidence of venous thrombosis of the right upper extremity, internal jugular or subclavian veins. Signed by: Dr. Blaze Marshall M.D. on 11/22/2018 10:11 PM
== END 2018-11-22 21:20 | disposition home or self-care (01) ==
LOC: FSED 16:51
DX: M54.5 Low back pain (principal); M54.2 Cervicalgia; R60.9 Edema, unspecified; J90 Pleural effusion, not elsewhere classified; W18.30XA Fall on same level, unspecified, initial encounter; Y92.008 Other place in unspecified non-institutional (private) residence as the place of occurrence of the external cause; I12.0 Hypertensive chronic kidney disease with stage 5 chronic kidney disease or end stage renal disease; E11.22 Type 2 diabetes mellitus with diabetic chronic kidney disease; N18.6 End stage renal disease; Z99.2 Dependence on renal dialysis
CPT/HCPCS: 36415; 74176; 80053; 84702; 85025; 93971; 99284; J1200; J1642; J2270; J2550

== ENCOUNTER 2018-11-23 19:15 | Emergency (ER) | payer OTHER ==
[~2018-11-23] VITALS: Ht 160 cm; Wt 56.2 kg
--- OUTSIDE RECORDS SUMMARY | 2018-11-23 19:20 | XMS REPORT | Clinical Summary ---
Author Author [facility] Organization [facility] Address Unknown Phone Unavailable Care Team Providers Care Juvenile [facility] Liaison Name Role Phone Ger Mukherjee MD PCP [...] 1,000 1 each 0 IVPB 1 gram ADD-[place] mg into a 8 in 100 mLIndications: [...] Elevated brain natriuretic peptide (BNP) level 01/26/2018 [facility] General Internal Medicine - Encounter [...] CKD stage; Leg swelling; Anxiety 12/27/2017 [facility] Internal Medicine - Encounter 01/03/2018 after 11/22/2017 Immunizations Name Dates Previously Given Next Due [...] Taken Vital Sign Reading 02/20/2018 2:16 AM OPERATING SYSTEM PROGRAMMER Blood Pressure 130/73 02/20/2018 2:16 AM OPERATING SYSTEM PROGRAMMER Pulse 97 02/19/2018 8:39 PM OPERATING SYSTEM PROGRAMMER Temperature 36.5 C (97.7 F) 02/20/2018 2:16 AM OPERATING SYSTEM PROGRAMMER Respiratory Rate 18 02/20/2018 2:16 AM OPERATING SYSTEM PROGRAMMER Oxygen Saturation 98% - Inhaled Oxygen - Concentration 01/31/2018 11:01 AM CDT Weight 67.5 kg (148 lb 14.4 oz) 02/19/2018 8:52 PM OPERATING SYSTEM PROGRAMMER Height 160 cm (5' 3") 12/28/2017 5:56 [...] Leads Defibrilla tors & Leads 10/12/2020 [place] [id number] IM / / [id number] Set Cathztn Hmodial Lngtrm Accs Surgical N/A: N/A ARROW 15fr 24cm Edge [employer]plicity - Implants; [employer] [id number] Expanders; [employer] Implanted: 01/02/2018 (Quantity not Extenders; on file) Surgical Wires Procedures Comments Procedure Name Priority Date/Time Associated Diagnosis CT LUMBAR SPINE WO STAT 02/20/2018 CONTRAST 1:01 [address] [employer] [address] HEAD WO CONTRAST STAT 02/20/2018 12:56 AM OPERATING SYSTEM PROGRAMMER XR CHEST 1 VW PORTABLE STAT 02/20/2018 12:02 AM OPERATING SYSTEM PROGRAMMER HCG QUALITATIVE, SERUM STAT 02/19/2018 SCREEN 11:45 PM OPERATING SYSTEM PROGRAMMER PROTHROMBIN TIME WITH INR STAT 02/19/2018 10:39 PM OPERATING SYSTEM PROGRAMMER PARTIAL THROMBOPLASTIN STAT 02/19/2018 TIME (PTT) 10:39 PM OPERATING SYSTEM PROGRAMMER CREATINE KINASE, TOTAL STAT 02/19/2018 (CPK) 10:39 PM OPERATING SYSTEM PROGRAMMER ESTIMATED GFR STAT 02/19/2018 10:39 PM OPERATING SYSTEM PROGRAMMER B NATRIURETIC PEPTIDE STAT 02/19/2018 10:39 PM OPERATING SYSTEM PROGRAMMER TROPONIN STAT 02/19/2018 10:39 PM OPERATING SYSTEM PROGRAMMER BETA HYDROXYBUTYRATE STAT 02/19/2018 10:39 PM OPERATING SYSTEM PROGRAMMER COMPREHENSIVE METABOLIC STAT 02/19/2018 PANEL 10:39 PM OPERATING SYSTEM PROGRAMMER HC COMPLETE BLD COUNT STAT 02/19/2018 W/AUTO DIFF 10:39 PM OPERATING SYSTEM PROGRAMMER ECG ED PRELIMINARY Routine 02/19/2018 INTERPRETATION 9:56 PM OPERATING SYSTEM PROGRAMMER POC GLUCOSE Routine 02/19/2018 9:36 PM OPERATING SYSTEM PROGRAMMER ECG 12-LEAD STAT 02/19/2018 9:07 PM OPERATING SYSTEM PROGRAMMER POC GLUCOSE Routine 02/18/2018 1:46 PM OPERATING SYSTEM PROGRAMMER POC GLUCOSE Routine 02/18/2018 12:19 PM OPERATING SYSTEM PROGRAMMER POC GLUCOSE Routine 02/18/2018 7:44 AM OPERATING SYSTEM PROGRAMMER POC GLUCOSE Routine 02/18/2018 7:03 AM OPERATING SYSTEM PROGRAMMER POC GLUCOSE Routine 02/18/2018 1:28 AM OPERATING SYSTEM PROGRAMMER POC GLUCOSE Routine 02/17/2018 9:13 PM OPERATING SYSTEM PROGRAMMER POC GLUCOSE Routine 02/17/2018 5:37 PM OPERATING SYSTEM PROGRAMMER ULTRAFILTRATION Routine 02/17/2018 5:07 PM OPERATING SYSTEM PROGRAMMER POC GLUCOSE Routine 02/17/2018 3:38 PM OPERATING SYSTEM PROGRAMMER POC GLUCOSE Routine 02/17/2018 1:24 PM OPERATING SYSTEM PROGRAMMER POC GLUCOSE Routine 02/17/2018 12:14 PM OPERATING SYSTEM PROGRAMMER POC GLUCOSE Routine 02/17/2018 9:43 AM OPERATING SYSTEM PROGRAMMER POC GLUCOSE Routine 02/17/2018 8:01 AM OPERATING SYSTEM PROGRAMMER SMEAR REVIEW Routine 02/17/2018 4:30 AM OPERATING SYSTEM PROGRAMMER HC COMPLETE BLD COUNT Routine 02/17/2018 W/AUTO DIFF 4:30 AM OPERATING SYSTEM PROGRAMMER POC GLUCOSE Routine 02/17/2018 4:14 AM OPERATING SYSTEM PROGRAMMER ESTIMATED GFR Routine 02/17/2018 4:00 AM OPERATING SYSTEM PROGRAMMER BASIC METABOLIC PANEL Routine 02/17/2018 4:00 AM OPERATING SYSTEM PROGRAMMER POC GLUCOSE Routine 02/16/2018 11:06 PM OPERATING SYSTEM PROGRAMMER POC GLUCOSE Routine 02/16/2018 8:45 PM OPERATING SYSTEM PROGRAMMER POC GLUCOSE Routine 02/16/2018 6:20 PM OPERATING SYSTEM PROGRAMMER POC GLUCOSE Routine 02/16/2018 5:35 PM OPERATING SYSTEM PROGRAMMER HEMODIALYSIS Routine 02/16/2018 2:21 PM OPERATING SYSTEM PROGRAMMER POC GLUCOSE Routine 02/16/2018 1:37 PM OPERATING SYSTEM PROGRAMMER POC GLUCOSE Routine 02/16/2018 12:29 PM OPERATING SYSTEM PROGRAMMER POC GLUCOSE Routine 02/16/2018 7:57 AM OPERATING SYSTEM PROGRAMMER POC GLUCOSE Routine 02/15/2018 9:54 PM CDT [...] CDT ECHOCARDIOGRAM WITH Routine 01/29/2018 AGITATED SALINE (66923) 10:05 AM CDT POC GLUCOSE Routine 01/29/2018 [...] MMODE SPECTRAL 9:36 AM CDT COLOR DOPPLER (58811) POC GLUCOSE Routine 12/30/2017 7:43 AM CDT [...] 12-LEAD STAT 12/27/2017 9:43 PM CDT after 11/22/2017 Results * CT Lumbar Spine Wo Contrast (02/20/2018 1:01 AM OPERATING SYSTEM PROGRAMMER) Specimen Narrative Performed At EXAMINATION: CT LUMBAR [...] acute osseous abnormality of the lumbar spine. [facility]-[id number] Procedure Note Hm Interface, Radiology Results Incoming - 02/20/2018 1:10 AM OPERATING SYSTEM PROGRAMMER EXAMINATION: CT LUMBAR SPINE WO CONTRAST CLINICAL [...] acute osseous abnormality of the lumbar spine. [facility]-[id number] Performing Organization Address City/State/Zipcode Phone Number [facility] [address] [place] [address] * CT Head Wo Contrast (02/20/2018 12:56 AM OPERATING SYSTEM PROGRAMMER) Only the most recent of 3 results [...] normal. IMPRESSION: No acute intracranial abnormality identified. [facility]-[id number] Procedure Note Interface, Radiology Results Incoming - 02/20/2018 1:07 AM OPERATING SYSTEM PROGRAMMER EXAMINATION: CT HEAD WO CONTRAST CLINICAL HISTORY: [...] normal. IMPRESSION: No acute intracranial abnormality identified. [facility]-[id number] Performing Organization Address City/State/Zipcode Phone Number [facility] [address] [place] [address] * XR Chest 1 Vw Portable (02/20/2018 12:02 AM OPERATING SYSTEM PROGRAMMER) Only the most recent of 4 results within the time period is included. Specimen Narrative Performed At Examination:XR CHEST 1 [facility] Clinical History:Shortness of breath Comparison: [...] lung volume with vascular crowding or congestion. [facility]-[id number] Procedure Note Interface, Radiology Results Incoming - 02/20/2018 12:08 AM OPERATING SYSTEM PROGRAMMER Examination: XR CHEST 1 VW PORTABLE Clinical [...] lung volume with vascular crowding or congestion. [facility]-[id number] Performing Organization Address City/[facility]/[place] [address] * hCG qualitative, serum screen (02/19/2018 11:45 PM OPERATING SYSTEM PROGRAMMER) Only the most recent of 2 results within the time period is included. [facility] hCG NegativeComment: Sensitivity [facility] DEPARTMENT qualitative, of HCG test: 25 mIU/mL OF PATHOLOGY serum AND GENOMIC MEDICINE Specimen Blood Performing Organization Address [facility] Phone Number [facility] DEPARTMENT OF [address] [place] [address] PATHOLOGY AND GENOMIC MEDICINE * Estimated GFR (02/19/2018 10:39 PM OPERATING SYSTEM PROGRAMMER) Only the most recent of 18 results within the time period is included. [facility] Estimated GFR 10 (A) mL/min/1.73 m2 [facility] DEPARTMENT Comment: OF PATHOLOGY CatergoryUnitsInte AND GENOMIC rpretation MEDICINE G1 >=90 Normal or high G2 60-89Mildly decreased [id number] Mildly to moderately decreased [id number] Moderately to severely decreased G4 15-29Severely decreased G5 <15Kidney failure The eGFR was calculated using the Chronic Kidney Disease Epidemiology Collaboration (CKD-EPI) equation. Interpretation is based on recommendations of the National Kidney Foundation-Kidney Disease Outcomes Quality Initiative (NKF-KDOQI) published in 2014. Specimen Plasma specimen Performing Organization Address City/[facility] Phone Number [facility] DEPARTMENT OF [address] [place] [address] PATHOLOGY AND GENOMIC MEDICINE * Beta hydroxybutyrate (02/19/2018 10:39 PM OPERATING SYSTEM PROGRAMMER) [facility] Beta 0.07 0.02 - 0.27 mmol/L [facility] hydroxybutyrate OF PATHOLOGY AND GENOMIC MEDICINE Specimen Serum Performing Organization Address [facility] Phone Number [facility] DEPARTMENT OF [address] [place] [address] PATHOLOGY AND GENOMIC MEDICINE * Troponin (02/19/2018 10:39 PM OPERATING SYSTEM PROGRAMMER) Only the most recent of 7 results within the time period is included. Pathologist [facility] Troponin <0.30 0.00 - 0.30 ng/mL [facility] DEPARTMENT Comment: OF PATHOLOGY 0.30 - 1.49 AND GENOMIC ng/mlMa MEDICINE indicate increased risk of acute coronary syndrome. >=1.5 ng/ml Consistent with acute myocardial infarction. The diagnostic value of a single normal or non-diagnostic result is questionable.Serial samples at 2-6 hour intervals are required to rule out acute myocardial injury. Specimen Plasma specimen Performing Organization Address City/[facility]/Zipcode Phone Number [facility] DEPARTMENT OF [address] [place] [address] PATHOLOGY AND [facility] * Partial thromboplastin time, activated (02/19/2018 10:39 PM OPERATING SYSTEM PROGRAMMER) Only the most recent of 4 results within the time period is included. Pathologist [facility] PTT 44.7 (H) 23.0 - 36.0 sec [facility] DEPARTMENT Comment: OF PATHOLOGY PTT therapeutic range for AND GENOMIC unfractionated heparin is MEDICINE 61.0-112.0 seconds which corresponds to Anti-Xa 0.3-0.7 U/ml. Specimen Blood Performing Organization Address [facility] Phone Number [facility] [place] [address] PATHOLOGY AND [facility] * Prothrombin time with INR (02/19/2018 10:39 PM OPERATING SYSTEM PROGRAMMER) Only the most recent of 4 results within the time period is included. Pathologist [facility] Prothrombin 15.7 (H) 11.5 - 14.5 sec [facility] DEPARTMENT time OF PATHOLOGY AND [employer] MEDICINE INR 1.3 [facility] DEPARTMENT Comment: OF PATHOLOGY The International Normalized AND GENOMIC Ratio (INR) is a therapeutic MEDICINE monitoring tool for patients who are stable on oral anticoagulant therapy. An INR of 2.0-3.0 is suggested for deep vein thrombosis/pulmonary embolism. Specimen Blood Performing Organization Address City/[facility]/Zipcode Phone Number [facility] [place] [address] PATHOLOGY AND [facility] MEDICINE * CBC with platelet and differential (02/19/2018 10:39 PM OPERATING SYSTEM PROGRAMMER) Only the most recent of 13 results within the time period is included. Pathologist [facility] WBC 5.22 4.50 - 11.00 k/uL [facility] DEPARTMENT OF PATHOLOGY AND GENOMIC MEDICINE RBC 4.05 (L) 4.20 - 5.50 m/uL [facility] DEPARTMENT OF PATHOLOGY AND GENOMIC MEDICINE HGB 11.5 (L) 12.0 - 16.0 g/dL [facility] DEPARTMENT OF PATHOLOGY AND GENOMIC MEDICINE HCT 39.6 37.0 - 47.0 % [facility] DEPARTMENT OF PATHOLOGY AND GENOMIC MEDICINE MCV 97.8 82.0 - 100.0 fL [facility] DEPARTMENT OF PATHOLOGY AND GENOMIC MEDICINE MCH 28.4 27.0 - 34.0 pg [facility] DEPARTMENT OF PATHOLOGY AND GENOMIC MEDICINE MCHC 29.0 (L) 31.0 - 37.0 g/dL [facility] DEPARTMENT OF PATHOLOGY AND GENOMIC MEDICINE RDW - SD 65.5 (H) 37.0 - 55.0 fL [facility] DEPARTMENT OF PATHOLOGY AND GENOMIC MEDICINE MPV 10.4 8.8 - 13.2 fL [facility] DEPARTMENT OF PATHOLOGY AND GENOMIC MEDICINE Platelet count 147 (L) 150 - 400 k/uL [facility] DEPARTMENT OF PATHOLOGY AND GENOMIC MEDICINE Nucleated RBC 0.00 /100 WBC [facility] DEPARTMENT OF PATHOLOGY AND GENOMIC MEDICINE Neutrophils 71.7 (H) 39.0 - 69.0 % [facility] DEPARTMENT OF PATHOLOGY AND GENOMIC MEDICINE Lymphocytes 17.6 (L) 25.0 - 45.0 % [facility] DEPARTMENT OF PATHOLOGY AND GENOMIC MEDICINE Monocytes 8.0 0.0 - 10.0 % [facility] DEPARTMENT OF PATHOLOGY AND GENOMIC MEDICINE Eosinophils 1.7 0.0 - 5.0 % [facility] DEPARTMENT OF PATHOLOGY AND GENOMIC MEDICINE Basophils 0.6 0.0 - 1.0 % [facility] DEPARTMENT OF PATHOLOGY AND GENOMIC MEDICINE Immature 0.4Comment: "Immature 0.0 - 1.0 % [facility] DEPARTMENT granulocytes granulocytes" (promyelocytes, OF PATHOLOGY myelocytes, metamyelocytes) AND GENOMIC MEDICINE Specimen Blood Performing Organization Address City/[facility]/Zipcode Phone Number [facility] DEPARTMENT OF [address] [place] [phone] PATHOLOGY AND GENOMIC MEDICINE * B natriuretic peptide (02/19/2018 10:39 PM OPERATING SYSTEM PROGRAMMER) Only the most recent of 4 results within the time period is included. BNP 506 (H) 0 - 100 pg/mL [facility] DEPARTMENT OF PATHOLOGY AND GENOMIC MEDICINE Specimen Blood Performing Organization Address City/[facility]/Zipcode Phone Number [facility] DEPARTMENT [address] [address] PATHOLOGY AND GENOMIC MEDICINE * Creatine kinase, total (CPK) (02/19/2018 10:39 PM OPERATING SYSTEM PROGRAMMER) Pathologist [facility] Creatine kinase 40 26 - 192 U/L [facility] DEPARTMENT OF PATHOLOGY AND GENOMIC MEDICINE Specimen Plasma specimen Performing Organization Address City/State/Zipcode Phone Number [facility] DEPARTMENT OF [address] [place] [address] PATHOLOGY AND GENOMIC MEDICINE * Comprehensive metabolic panel (02/19/2018 10:39 PM OPERATING SYSTEM PROGRAMMER) Only the most recent of 8 results within the time period is included. Pathologist [facility] Sodium 137 135 - 148 mEq/L [facility] DEPARTMENT OF PATHOLOGY AND GENOMIC MEDICINE Potassium 3.9 3.5 - 5.0 mEq/L [facility] DEPARTMENT OF PATHOLOGY AND GENOMIC MEDICINE Chloride 98 98 - 112 mEq/L [facility] DEPARTMENT OF PATHOLOGY AND GENOMIC MEDICINE CO2 20 (L) 24 - 31 mEq/L [facility] DEPARTMENT OF PATHOLOGY AND GENOMIC MEDICINE Anion gap 19@ANIO (H) 7 - 15 mEq/L [facility] DEPARTMENT OF PATHOLOGY AND GENOMIC MEDICINE BUN 35 (H) 6 - 20 mg/dL [facility] DEPARTMENT OF PATHOLOGY AND GENOMIC MEDICINE Creatinine 5.83 (H) 0.50 - 0.90 mg/dL [facility] DEPARTMENT OF PATHOLOGY AND GENOMIC MEDICINE Glucose 138 (H) 65 - 99 mg/dL [facility] DEPARTMENT OF PATHOLOGY AND GENOMIC MEDICINE Calcium 9.0 8.3 - 10.2 mg/dL [facility] DEPARTMENT OF PATHOLOGY AND GENOMIC MEDICINE Protein 8.5 (H) 6.3 - 8.3 g/dL [facility] DEPARTMENT Comment: OF PATHOLOGY [place] AND GENOMIC 4.6-7.0 g/dL MEDICINE 1 week 4.4-7.6 g/dL 7 months-1year 5.1-7.3 g/dL 1-2 years5.6-7 .5 g/dL >3 years6.0-8 .0 g/dL 18-150 6.3-8.3 g/dL Albumin 2.6 (L) 3.5 - 5.0 g/dL [facility] DEPARTMENT OF PATHOLOGY AND GENOMIC MEDICINE A/G ratio 0.4 (L) 0.7 - 3.8 [facility] DEPARTMENT OF PATHOLOGY AND GENOMIC MEDICINE Alkaline 205 (H) 35 - 104 U/L [facility] DEPARTMENT phosphatase OF PATHOLOGY AND GENOMIC MEDICINE AST 29 10 - 35 U/L [facility] DEPARTMENT OF PATHOLOGY AND GENOMIC MEDICINE ALT 25 5 - 50 U/L [facility] DEPARTMENT OF PATHOLOGY AND GENOMIC MEDICINE Total bilirubin 0.3 0.0 - 1.2 mg/dL [facility] DEPARTMENT OF PATHOLOGY AND GENOMIC MEDICINE Specimen Plasma specimen Performing Organization Address City/[facility] Phone Number [facility] DEPARTMENT OF [address] [place] [address] PATHOLOGY AND GENOMIC MEDICINE * ECG ED Preliminary Interpretation - NOT AN ORDER (02/19/2018 9:56 PM OPERATING SYSTEM PROGRAMMER) Only the most recent of 2 results within the time period is included. Narrative Performed At Kourtney Sanchez MD 02/20/20185:40 PM ECG ED Preliminary Interpretation - Not an Order Performed by: KOURTNEY SANCHEZ Authorized by: KOURTNEY SANCHEZ ECG reviewed by ED Physician in the absence of a container washer machine: yes Previous ECG: Previous ECG:Compared to current [...] normal * POC glucose (02/19/2018 9:36 PM OPERATING SYSTEM PROGRAMMER) Only the most recent of 165 results within the time period is included. POC glucose 148 (H) 65 - 99 mg/dL [facility] DEPARTMENT Comment: OF PATHOLOGY No Action Needed AND GENOMIC Meter ID: [id number] MEDICINE Supervisor Taping: Roel Dorsey Specimen Performing Organization Address City/[facility] Phone Number [facility] DEPARTMENT OF [address] [place] [address] PATHOLOGY AND GENOMIC MEDICINE * ECG 12 lead (02/19/2018 9:07 PM OPERATING SYSTEM PROGRAMMER) Only the most recent of 4 results within the time period is included. Ventricular 101 [facility] rate Atrial rate 101 [facility] SC interval 186 [facility] QRSD interval 100 [facility] QT interval 392 [facility] QTC interval 508 [facility]USE P axis 1 58 [facility] QRS axis 1 -9 [facility] T wave axis 75 [facility] EKG impression Sinus tachycardia-Nonspecific [facility] MUSE ST and T wave abnormality-Abnormal ECG-In automated comparison with ECG of 26-JAN-2018 23:47,-Nonspecific T wave abnormality no longer evident in Inferior leads-T wave inversion no longer evident in Lateral leads- Specimen Performing Organization Address City/[facility] Phone Number [facility] MUSE [address] [place] [address] * Smear review (02/17/2018 4:30 AM OPERATING SYSTEM PROGRAMMER) Platelet slide Kenia adequate [facility] DEPARTMENT review OF PATHOLOGY AND GENOMIC MEDICINE Anisocytosis Moderate [facility] DEPARTMENT OF PATHOLOGY AND GENOMIC MEDICINE Polychromasia Moderate [facility] DEPARTMENT OF PATHOLOGY AND GENOMIC MEDICINE Ovalocytes Moderate [facility] DEPARTMENT OF PATHOLOGY AND GENOMIC MEDICINE Specimen Performing Organization Address [facility] Phone Number [facility] DEPARTMENT OF [address] [place], [place] [phone] PATHOLOGY AND GENOMIC MEDICINE * Basic metabolic panel (02/17/2018 4:00 AM OPERATING SYSTEM PROGRAMMER) Only the most recent of 10 results within the time period is included. Sodium 136 135 - 148 mEq/L [facility] DEPARTMENT OF PATHOLOGY AND GENOMIC MEDICINE Potassium 4.8 3.5 - 5.0 mEq/L [facility] DEPARTMENT OF PATHOLOGY AND GENOMIC MEDICINE Chloride 97 (L) 98 - 112 mEq/L [facility] DEPARTMENT OF PATHOLOGY AND GENOMIC MEDICINE CO2 22 (L) 24 - 31 mEq/L [facility] DEPARTMENT OF PATHOLOGY AND GENOMIC MEDICINE Anion gap 17@ANIO (H) 7 - 15 mEq/L [facility] DEPARTMENT OF PATHOLOGY AND GENOMIC MEDICINE BUN 32 (H) 6 - 20 mg/dL [facility] DEPARTMENT OF PATHOLOGY AND GENOMIC MEDICINE Creatinine 5.52 (H) 0.50 - 0.90 mg/dL [facility] DEPARTMENT OF PATHOLOGY AND GENOMIC MEDICINE Glucose 72 65 - 99 mg/dL [facility] DEPARTMENT OF PATHOLOGY AND GENOMIC MEDICINE Calcium 8.8 8.3 - 10.2 mg/dL [facility] DEPARTMENT OF PATHOLOGY AND GENOMIC MEDICINE Specimen Plasma specimen Performing Organization Address [facility]/Zipcode Phone Number [facility] DEPARTMENT OF [address] [place] [phone] PATHOLOGY AND GENOMIC MEDICINE * CT Angiogram [...] axillary lymphadenopathy, stable when compared to prior. [facility]-[id number] Procedure Note [facility], Radiology Results Incoming - 02/14/2018 7:17 [...] axillary lymphadenopathy, stable when compared to prior. [facility]-[id number] Performing Organization Address City/[facility] Phone Number [place] [phone] [place] [address] * Magnesium level (02/14/2018 12:00 PM CDT) Only the most recent of 3 results within the time period is included. Magnesium 2.5 1.6 - 2.6 mg/dL [facility] DEPARTMENT OF PATHOLOGY AND GENOMIC MEDICINE Specimen Plasma specimen Performing Organization Address City/[facility] Phone Number [address] [address] PATHOLOGY AND GENOMIC MEDICINE * Phosphorus level (02/10/2018 4:56 AM CDT) Only the most recent of 2 results within the time period is included. Phosphorus 2.1 (L) 2.4 - 4.5 mg/dL [facility] DEPARTMENT OF PATHOLOGY AND GENOMIC MEDICINE Specimen Plasma specimen Performing Organization Address City/[facility] Phone Number [facility] [place] [address] PATHOLOGY AND GENOMIC MEDICINE * Free phenytoin level (02/10/2018 4:56 AM CDT) Phenytoin, free 0.49 (L) 1.00 - 2.00 ug/mL [facility] DEPARTMENT OF PATHOLOGY AND GENOMIC MEDICINE Specimen Blood Performing Organization Address [facility] Phone Number [facility] [place] [address] PATHOLOGY AND GENOMIC MEDICINE * Phenytoin level (02/10/2018 4:56 AM CDT) Only the most recent of 4 results within the time period is included. Phenytoin 3.5 (L) 10.0 - 20.0 ug/mL [facility] DEPARTMENT Comment: OF PATHOLOGY Therapeutic Range: AND GENOMIC 10 - 20 ug/mL MEDICINE Specimen Plasma specimen Performing Organization Address [facility] Phone Number [facility] [place] [address] PATHOLOGY AND GENOMIC MEDICINE * Sedimentation rate (02/08/2018 3:30 PM CDT) Only the most recent of 2 results within the time period is included. Sedimentation 38 (H) 0 - 20 mm/hr [facility] DEPARTMENT rate OF PATHOLOGY AND GENOMIC MEDICINE Specimen Blood Performing Organization Address [facility] Phone Number [facility] [place] [address] PATHOLOGY AND GENOMIC MEDICINE * C-reactive protein (02/08/2018 11:54 AM CDT) Only the most recent of 2 results within the time period is included. CRP 0.43 0.00 - 0.50 mg/dL [facility] DEPARTMENT OF PATHOLOGY AND GENOMIC MEDICINE Specimen Plasma specimen Performing Organization Address [facility] Phone Number [facility] [place] [address] PATHOLOGY AND GENOMIC MEDICINE * MRI Shoulder [...] SOFT TISSUES: Extensive periarticular soft tissue edema. [facility]-[id number] Procedure Note Interface, Radiology Results Incoming - [...] SOFT TISSUES: Extensive periarticular soft tissue edema. [facility]-[id number] Performing Organization Address City/State/Zipcode Phone Number [facility] [address] [place] [address] * MRI Cervical Spine Wo Contrast (02/07/2018 [...] IMPRESSION: No significant cervical spine abnormality identified. [facility]-[id number] Procedure Note Hm Interface, Radiology Results Incoming [...] IMPRESSION: No significant cervical spine abnormality identified. [id number] Performing Organization Address [facility]/Zipcode Phone Number [facility] [address] [place] [address] * MRI Brain Wo Contrast (02/07/2018 11:50 [...] are unremarkable. IMPRESSION: No acute intracranial abnormality. [facility]-[id number] Procedure Note Interface, Radiology Results Incoming - [...] are unremarkable. IMPRESSION: No acute intracranial abnormality. [facility]-[id number] Performing Organization Address [facility] Hospital[facility] Phone Number [facility] [address] [place] [address] * NM Bone Scan 3 Phase (02/05/2018 [...] suggest osteomyelitis involving the proximal left humerus. [facility]-[id number] Procedure Note [facility], Radiology Results Incoming - 02/05/2018 1:36 [...] suggest osteomyelitis involving the proximal left humerus. [facility]-[id number] Performing Organization Address City/State/Zipcode Phone Number [facility] [address] [place] [address] * CBC hemogram (02/04/2018 11:30 AM CDT) Only the most recent of 3 results within the time period is included. WBC 3.45 (L) 4.50 - 11.00 k/uL [facility] DEPARTMENT OF PATHOLOGY AND GENOMIC MEDICINE RBC 3.26 (L) 4.20 - 5.50 m/uL [facility] DEPARTMENT OF PATHOLOGY AND GENOMIC MEDICINE HGB 9.0 (L) 12.0 - 16.0 g/dL [facility] DEPARTMENT OF PATHOLOGY AND GENOMIC MEDICINE HCT 31.3 (L) 37.0 - 47.0 % [facility] DEPARTMENT OF PATHOLOGY AND GENOMIC MEDICINE MCV 96.0 82.0 - 100.0 fL [facility] DEPARTMENT OF PATHOLOGY AND GENOMIC MEDICINE MCH 27.6 27.0 - 34.0 pg [facility] DEPARTMENT OF PATHOLOGY AND GENOMIC MEDICINE MCHC 28.8 (L) 31.0 - 37.0 g/dL [facility] DEPARTMENT OF PATHOLOGY AND GENOMIC MEDICINE RDW - SD 61.7 (H) 37.0 - 55.0 fL [facility] DEPARTMENT OF PATHOLOGY AND GENOMIC MEDICINE MPV 10.8 8.8 - 13.2 fL [facility] DEPARTMENT OF PATHOLOGY AND GENOMIC MEDICINE Platelet count 142 (L) 150 - 400 k/uL [facility] DEPARTMENT OF PATHOLOGY AND GENOMIC MEDICINE Nucleated RBC 0.00 /100 WBC [facility] DEPARTMENT OF PATHOLOGY AND GENOMIC MEDICINE Specimen Blood Performing Organization Address City/[facility] Hospital[facility] Phone Number [facility] [address] [place] [address] PATHOLOGY AND [facility] MEDICINE * Urine drugs of abuse screen (02/02/2018 1:41 PM CDT) Only the most recent of 2 results within the time period is included. Amphetamine Negative [facility] DEPARTMENT screen, urine OF PATHOLOGY AND GENOMIC MEDICINE Barbiturate Negative [facility] DEPARTMENT screen, urine OF PATHOLOGY AND GENOMIC MEDICINE Benzodiazepine Negative [facility] DEPARTMENT screen, urine OF PATHOLOGY AND GENOMIC MEDICINE Cannabinoid Negative [facility] DEPARTMENT screen, urine OF PATHOLOGY AND GENOMIC MEDICINE Cocaine screen, Negative [facility] DEPARTMENT urine OF PATHOLOGY AND GENOMIC MEDICINE Methadone Negative [facility] DEPARTMENT metabolite OF PATHOLOGY (EDDP), urine AND GENOMIC MEDICINE Opiates screen, Positive (A) [facility] DEPARTMENT urine OF PATHOLOGY AND GENOMIC MEDICINE Oxycodone Negative [facility] DEPARTMENT screen, urine OF PATHOLOGY AND GENOMIC MEDICINE Phencyclidine Negative [facility] DEPARTMENT screen, urine OF PATHOLOGY AND GENOMIC MEDICINE Tricyclic Negative [facility] DEPARTMENT screen, urine Comment: OF [...] purposes only. Specimen Urine Performing Organization Address [facility] Hospitalcode Phone Number [facility] [address] [place] [address] PATHOLOGY AND [facility] MEDICINE * Urinalysis, automated with microscopy (02/02/2018 1:41 PM CDT) Color, UA Dark Yellow [facility] DEPARTMENT OF PATHOLOGY AND GENOMIC MEDICINE Appearance, UA Hazy [facility] DEPARTMENT OF PATHOLOGY AND GENOMIC MEDICINE Specific 1.019 1.001 - 1.035 [facility] DEPARTMENT gravity, OF PATHOLOGY AND GENOMIC MEDICINE pH, UA 5.0 5.0 - 8.5 [facility] DEPARTMENT OF PATHOLOGY AND GENOMIC MEDICINE Protein, UA 2+ (A) Negative [facility] DEPARTMENT OF PATHOLOGY AND GENOMIC MEDICINE Glucose, UA Negative Negative [facility] DEPARTMENT OF PATHOLOGY AND GENOMIC MEDICINE Ketones, UA Negative Negative [facility] DEPARTMENT OF PATHOLOGY AND GENOMIC MEDICINE Bilirubin, UA Negative Negative [facility] DEPARTMENT OF PATHOLOGY AND GENOMIC MEDICINE Blood, UA Small (A) Negative [facility] DEPARTMENT OF PATHOLOGY AND GENOMIC MEDICINE Nitrite, UA Negative Negative [facility] DEPARTMENT OF PATHOLOGY AND GENOMIC MEDICINE Urobilinogen, <2.0 <2.[address] [facility] UA OF PATHOLOGY AND GENOMIC MEDICINE Leukocyte Moderate (A) Negative [facility] DEPARTMENT esterase, UA OF PATHOLOGY AND GENOMIC MEDICINE Epithelial 3 /HPF [facility] DEPARTMENT cells, UA OF PATHOLOGY AND GENOMIC MEDICINE WBC, UA 85 (H) 0 - 4 /HPF [facility] DEPARTMENT OF PATHOLOGY AND GENOMIC MEDICINE RBC, UA 4 0 - 5 /HPF [facility] DEPARTMENT OF PATHOLOGY AND GENOMIC MEDICINE Bacteria, UA Few None seen [facility] DEPARTMENT OF PATHOLOGY AND GENOMIC MEDICINE Hyaline casts, >20 (A) /LPF [facility] UA OF PATHOLOGY AND GENOMIC MEDICINE Yeast, UA None seen [facility] DEPARTMENT OF PATHOLOGY AND GENOMIC MEDICINE Yeast with None seen [facility] DEPARTMENT pseudohyphae, OF PATHOLOGY UA AND GENOMIC MEDICINE Specimen Urine Performing Organization Address City/State/Zipcode Phone Number [facility] DEPARTMENT OF [address] [place] [address] PATHOLOGY AND GENOMIC MEDICINE * XR Abdomen 1 Vw Portable (01/31/2018 8:11 PM CDT) Specimen Narrative Performed At EXAMINATION:XR ABDOMEN 1 VW PORTABLE [facility] CLINICAL HISTORY:vomiting COMPARISON:None. IMPRESSION: Moderate amount retained stool in colon There is a nonspecific bowel gas pattern. No free air is identified. Gallbladder has been removed [facility]-[id number] Procedure Note Interface, Radiology Results Incoming - 01/31/2018 8:16 PM CDT EXAMINATION: XR ABDOMEN 1 VW PORTABLE CLINICAL HISTORY: vomiting COMPARISON: None. IMPRESSION: Moderate amount retained stool in colon There is a nonspecific bowel gas pattern. No free air is identified. Gallbladder has been removed [facility]-[id number] Performing Organization Address City/State/Zipcode Phone Number [facility] [address] [place] [address] * EEG (routine) (01/31/2018 1:55 PM CDT) [...] at 01/31/2018 12:04 PM who verbalized understanding. [facility]-[id number] Procedure Note Hm Interface, Radiology Results Incoming [...] at 01/31/2018 12:04 PM who verbalized understanding. [facility]-[id number] Performing Organization Address City/[facility]/[place] [address] * Arterial blood gas (01/31/2018 8:23 AM CDT) pH, arterial 7.40 7.35 - 7.45 [facility] DEPARTMENT OF PATHOLOGY AND GENOMIC MEDICINE pCO2, arterial 38 35 - 45 mmHg [facility] DEPARTMENT OF PATHOLOGY AND GENOMIC MEDICINE pO2, arterial 143 (H) 80 - 90 mmHg [facility] DEPARTMENT OF PATHOLOGY AND GENOMIC MEDICINE Bicarbonate, 22.6 21.0 - 28.0 mmol/L [facility] arterial OF PATHOLOGY AND GENOMIC MEDICINE Base excess, -1 -2 - 2 mEq/L [facility] arterial OF PATHOLOGY AND GENOMIC MEDICINE O2 saturation, 100 95 - 100 % [facility] arterial OF PATHOLOGY AND GENOMIC MEDICINE Specimen Blood Performing Organization Address City/[facility] [place] [address] PATHOLOGY AND GENOMIC MEDICINE * Manual differential (01/31/2018 8:22 AM CDT) Manual PERFORMED [facility] DEPARTMENT differential OF PATHOLOGY AND GENOMIC MEDICINE Neutrophils 90.0 (H) 39.0 - 69.0 % [facility] DEPARTMENT OF PATHOLOGY AND GENOMIC MEDICINE Lymphocytes 7.0 (L) 25.0 - 45.0 % [facility] DEPARTMENT OF PATHOLOGY AND GENOMIC MEDICINE Monocytes 1.0 0.0 - 10.0 % [facility] DEPARTMENT OF PATHOLOGY AND GENOMIC MEDICINE Eosinophils 2.0 0.0 - 5.0 % [facility] DEPARTMENT OF PATHOLOGY AND GENOMIC MEDICINE Basophils 0.0 0.0 - 1.0 % [facility] DEPARTMENT OF PATHOLOGY AND GENOMIC MEDICINE Metamyelocytes 0 % [facility] DEPARTMENT OF PATHOLOGY AND GENOMIC MEDICINE Promyelocytes 0 % [facility] DEPARTMENT OF PATHOLOGY AND GENOMIC MEDICINE Platelet slide Kenia slt decr [facility] DEPARTMENT review OF PATHOLOGY AND GENOMIC MEDICINE Anisocytosis Moderate [facility] DEPARTMENT OF PATHOLOGY AND GENOMIC MEDICINE Polychromasia Moderate [facility] DEPARTMENT OF PATHOLOGY AND GENOMIC MEDICINE Ovalocytes Moderate [facility] DEPARTMENT OF PATHOLOGY AND GENOMIC MEDICINE Enlarged Moderate (A) [facility] DEPARTMENT platelets OF PATHOLOGY AND GENOMIC MEDICINE Specimen Narrative Performed At [facility] and reab back to Ophelia Quevedo at 01/31/18 08:59 by [email or web address] [facility] DEPARTMENT OF PATHOLOGY AND GENOMIC MEDICINE Performing Organization Address City/[facility]/Zipcode Phone Number [facility] DEPARTMENT OF [address] [place] [address] PATHOLOGY AND GENOMIC MEDICINE * Lactic acid level (01/31/2018 8:22 AM CDT) Only the most recent of 2 results within the time period is included. Lactic acid 1.2 0.5 - 2.2 mmol/L [facility] DEPARTMENT OF PATHOLOGY AND GENOMIC MEDICINE Specimen Blood Performing Organization Address City/[facility]/Zipcode Phone Number [facility] DEPARTMENT OF [address] [place] [address] PATHOLOGY AND GENOMIC MEDICINE * EEG (routine) [...] 10:05 AM CDT) Specimen Narrative Performed At [facility] Echocardiography Report [address] [facility] 9[place], [place] [address] Pat.Name:SONAM BERMEO Rosario.ID:[id number] .Date: 01/29/2018Refer.MD:REGINALD FIGUEROA MD Exam Time: 9:20:00 AMStudy Type:Routine Echo Height:63inWeight:148lb BSA: 1.7 t0HPHPdc:1985,32Y Sex: FEMALEBP:140/97 HR:101 bpm Sonogrphr: Dale Issa RDCS Pat. Stat.:Inpatient Room:0 1003A Study Status:Final Echo Event ID:[id number] Order ID:[id number] Reason for Study:Stroke History / Clinical:Congestive Heart [...] RAPof 10 mmHg. MEASUREMENTS: 2D Parasternal [place] LVOT 1.9 cmLA Ds3.1 cm LVIDd4.9 cmIndex2.9 [...] 4.8 cm EF Biplane HR 103 bpm EOK530.4 ml CO 2.5 l/min SV49.1 ml XSC838.6 mlEF29.5 % DOPPLER LVOT Stroke Vol LVOT 1.9 cmLVOT CO3 l/min LVOT TVI10.4 cmLVOT CI1.8 l/m/m2 LVOT Tm254 msecHR 103 bpm LVOT SV 29.5 ml MA For Flow/Valve Assess MA TVI 141.6 cm Signed 01/30/2018 12:21 AM Santana Redding M.D. Procedure Note Interface, Radiology Results In - 01/30/2018 12:21 AM CDT Echocardiography Report [address] [place] [address] Pat.Name: SONAM BERMEO Pat.ID: [id number] .Date: 01/29/2018 Refer.MD: REGINALD FIGUEROA MD Exam Time: 9:20:00 AM Study Type:Routine Echo Height: 63in Weight: 148lb BSA: 1.7 m2 Age: 9 1985,32Y Sex: FEMALE BP: 140/97 HR: 101 bpm Sonogrphr: Dale Issa RDCS Pat. Stat.:Inpatient Room: [address] Study Status:Final Echo Event ID:[id number] Order ID: [id number] Reason for Study:Stroke History / Clinical:Congestive Heart [...] of 10 mmHg. MEASUREMENTS: 2D Parasternal [place] LVOT 1.9 cm LA Ds 3.1 cm [...] AM Santana Redding M.D. Performing Organization Address City/State/[facility] Hospitalcode Phone Number [facility] [address] [place] [address] * CTA Neck W Wo Contrast (01/28/2018 [...] no significant carotid or vertebral artery stenosis. [facility]-[id number] Procedure Note Interface, Radiology Results Incoming - [...] no significant carotid or vertebral artery stenosis. [facility]-[id number] Performing Organization Address City/State/Zipcode Phone Number [facility] [address] [place] [address] * Lipid panel (01/28/2018 6:47 PM CDT) Cholesterol 117 <200 mg/dL [facility] DEPARTMENT OF PATHOLOGY AND GENOMIC MEDICINE Triglycerides 92 <150 mg/dL [facility] DEPARTMENT OF PATHOLOGY AND GENOMIC MEDICINE HDL cholesterol 50 >40 mg/dL [facility] DEPARTMENT OF PATHOLOGY AND GENOMIC MEDICINE LDL cholesterol 64Comment: Result obtained by <100 mg/dL [facility] DEPARTMENT direct LDL measurement OF PATHOLOGY AND GENOMIC MEDICINE Lipid panel SeeBelow [facility] DEPARTMENT interpretation Comment: OF PATHOLOGY [...] specimen Performing Organization Address City/State/Zipcode Phone Number [facility] DEPARTMENT OF [address] [place] [address] PATHOLOGY AND GENOMIC MEDICINE * CT Upper [...] humeral head suspicious for extension of osteomyelitis. [facility]-[id number] Procedure Note Hm Interface, Radiology Results Incoming [...] humeral head suspicious for extension of osteomyelitis. [facility]-[id number] Performing Organization Address City/State/Zipcode Phone Number [facility] [address] [place] [address] * CTA Head W Wo Contrast (01/28/2018 [...] aneurysmal dilatation or vascular malformation of the [place]. The major dural sinuses are opacified normally. There are no gross brain parenchymal abnormalities. There is no midline shift, hydrocephalus or extra-axial fluid collection. Soft tissue shows no evidence of laceration or hematoma. There is no air-fluid level in the sinuses. Osseous calvarium is intact. IMPRESSION: 1.No hemodynamically significant narrowing of the [place] vessels. [facility]-[id number] Procedure Note Interface, Radiology Results Incoming - [...] aneurysmal dilatation or vascular malformation of the [place]. The major dural sinuses are opacified normally. There are no gross brain parenchymal abnormalities. There is no midline shift, hydrocephalus or extra-axial fluid collection. Soft tissue shows no evidence of laceration or hematoma. There is no air-fluid level in the sinuses. Osseous calvarium is intact. IMPRESSION: 1. No hemodynamically significant narrowing of the [place] vessels. [facility]-[id number] Performing Organization Address City/State/Zipcode Phone Number NOHEMY [address] [place] [address] * CT Chest Wo Contrast (01/28/2018 4:55 PM CDT) Specimen Narrative Performed At [facility]ST [facility]AST CLINICAL [...] is enlarged. 5.Left proximal humeral fracture reidentified. [facility]-[id number] Procedure Note [facility], Radiology Results [facility] - 01/28/2018 5:13 PM CDT EXAMINATION: [...] enlarged. 5. Left proximal humeral fracture reidentified. [facility]-[id number] Performing Organization Address City/State/Zipcode Phone Number [facility] [address] [place] [address] * Keppra (Levetiracetam) level (01/28/2018 8:00 AM CDT) Pathologist [facility] Levetiracetam 16 12 - 46 ug/mL [facility] Comment: INTERPRETIVE INFORMATION: Keppra (Levetiracetam) Therapeutic Range:12-46 ug/mL Toxic: Not well Established Pharmacokinetics of levetiracetam are affected by renal function. Adverse effects may include somnolence, weakness, headache and vomiting. This levetiracetam (Keppra) immunoassay uses the [employer] reagents, which has known cross-reactivity with the drug brivaracetam (Briviact) and may report inaccurate results. Patients transitioning from levetiracetam to brivaracetam or those who are using both medications should not monitor drug concentrations with the [employer] assay. These patients should be monitored using a validated chromatographic methodology that distinguishes between drugs to determine drug concentrations. Performed by [facility], [address] [place] [address] [id number] [email or web address], Boby Brito MD - Lab. Director Specimen Serum Performing Organization Address [facility] Hospitalcoil Phone Number [employer] [facility] [address] [place] [address] * Transfuse RBC (01/27/2018 9:20 PM CDT) Only the most recent of 5 results within the time period is included. * Hepatitis B surface antigen (01/27/2018 6:20 PM CDT) Only the most recent of 2 results within the time period is included. Pathologist [facility] Hepatitis B Non-reactive Non-reactive [facility] DEPARTMENT surface Ag OF PATHOLOGY AND GENOMIC MEDICINE Specimen Blood Performing Organization Address City/[facility]/Zipcode Phone Number [facility] DEPARTMENT OF [address] [place] [address] PATHOLOGY AND GENOMIC MEDICINE * Pv duplex venous upper extremity (01/27/2018 2:47 PM CDT) Only the most recent of 2 results within the time period is included. Specimen Narrative Performed At [facility] Upper Extremity Venous Report [address] [facility] [address], [place] [address] Pat.Name:SONAM BERMEO Pat.ID:[id number] .Date: 01/27/2018Refer.MD:REGINALD FIGUEROA MD Exam Time: 2:29:00 PMStudy Type:UE Venous DOBAge:1985,32Y Sex: FEMALE Sonogrphr: KATHY Robertson RCS Pat. Stat.:Inpatient Room:[place] [address] TapeVol: PATRICIA CPT - 4: 32315 Echo Event ID:[id number] Order ID:[id number] Reason for Study:Left arm swelling and pain, [...] [facility] Upper Extremity Venous Report [address] [place] [address] Pat.Name: SONAM BERMEO Pat.ID: [id number] .Date: 01/27/2018 Refer.MD: REGINALD FIGUEROA MD Exam Time: 2:29:00 PM Study Type:UE Venous Age: 9 1985,32Y Sex: FEMALE Sonogrphr: KATHY Robertson, NOEMY Pat. Stat.:Inpatient Room: [place] [address] Tape Vol: PATRICIA CPT - 4: 52465 Echo Event ID:[id number] Order ID: [id number] Reason for Study:Left arm swelling and pain, [...] RPVI Performing Organization Address City/State/Zipcode Phone Number [facility] [address] [place] [address] * Pv carotid duplex (01/27/2018 2:28 PM CDT) Specimen Narrative Performed At [facility] Vascular Ultrasound Laboratory Carotid Artery Duplex Report [address] [place] [address] For quality control associate purposes, the categorization of the degree of the stenosis of this exam is based on criteria described in the IAC carotid stenosis grading white paper( www.intersocietal.org/Vascular) and Neli Kilgore., Yoan Cruz., et al. Carotid artery stenosis: murillo-scale and Doppler US diagnosis--Society of Radiologists in Ultrasound Consensus Conference. Radiology. 2003 Nov; 229(2):340-6. Pat.Name:SONAM BERMEO Rosario.ID:[id number] .Date: 01/27/2018Refer.MD:REGINALD FIGUEROA MD Exam Time: 2:12:00 PMStudy Type:Carotid DOBAge:1985,32Y Sex: FEMALE Sonogrphr: Nicholas Reynoso, KATHY, NOEMY Pat. Stat.:Inpatient Room:[place] [id number] A TapeVol: PATRICIA, CPT - 4: 17068 Echo Event ID:[id number] Order ID:[id number] Reason for Study:Concern for clot, patient had [...] Ultrasound Laboratory Carotid Artery Duplex Report [address] [place] [address] For quality control associate purposes, the categorization of the degree of the stenosis of this exam is based on criteria described in the IAC carotid stenosis grading white paper( www.intersocietal.org/Vascular) and Chan Kilgore, Sherif Cruz, et al. Carotid artery stenosis: murillo-scale and Doppler US diagnosis--Society of Radiologists in Ultrasound Consensus Conference. Radiology. 2003 Feb; 229(2):340-6. Pat.Name: SONAM BERMEO [facility].ID: [id number] .Date: 01/27/2018 Refer.MD: REGINALD FIGUEROA MD Exam Time: 2:12:00 PM Study Type:Carotid Age: 9 1985,32Y Sex: FEMALE Sonogrphr: KATHY Robertson RCS Pat. Stat.:Inpatient Room: [address] Vol: PATRICIA, CPT - 4: 39385 Echo Event ID:[id number] Order ID: [id number] Reason for Study:Concern for clot, patient had [...] Caleb Pulliam MD, RPVI Performing Organization Address [facility]/Zipcode Phone Number [facility] [address] [place] [address] * Lactic acid level, SEPSIS - Now and repeat 2x every 3 hours (01/27/2018 6:34 AM CDT) Only the most recent of 2 results within the time period is included. Lactic acid 1.8 0.5 - 2.2 mmol/L [facility] DEPARTMENT OF PATHOLOGY AND GENOMIC MEDICINE Specimen Blood Performing Organization Address City/[facility]/Zipcode Phone Number [facility] DEPARTMENT OF [address] [place] [address] PATHOLOGY AND GENOMIC MEDICINE * Prepare RBC, 1 Units (01/27/2018 3:44 AM CDT) Only the most recent of 2 results within the time period is included. Product name Red Blood Cells -1, Leukored [facility] DEPARTMENT OF PATHOLOGY AND GENOMIC MEDICINE Unit number [id number] [facility] DEPARTMENT OF PATHOLOGY AND GENOMIC MEDICINE Product code [id number] [facility] DEPARTMENT OF PATHOLOGY AND GENOMIC MEDICINE Dispense status Transfused [facility] DEPARTMENT OF PATHOLOGY AND GENOMIC MEDICINE Blood [id number] [facility] DEPARTMENT expiration date OF PATHOLOGY AND GENOMIC MEDICINE Blood type code 5100 [facility] DEPARTMENT OF PATHOLOGY AND GENOMIC MEDICINE Blood type O POSITIVE [facility] DEPARTMENT OF PATHOLOGY AND GENOMIC MEDICINE Specimen Performing Organization Address City/[facility]/Zipcode Phone Number [facility] DEPARTMENT OF [address] [place] [address] PATHOLOGY AND GENOMIC MEDICINE * Type and screen (01/27/2018 3:44 AM CDT) Only the most recent of 2 results within the time period is included. ABO grouping O [facility] DEPARTMENT OF PATHOLOGY AND GENOMIC MEDICINE Rh type POS [facility] DEPARTMENT OF PATHOLOGY AND GENOMIC MEDICINE Antibody screen NEG [facility] DEPARTMENT (gel) OF PATHOLOGY AND GENOMIC MEDICINE Specimen Blood Performing Organization Address City/[facility]/Zipcode Phone Number [facility] DEPARTMENT OF [address] [place] [address] PATHOLOGY AND GENOMIC MEDICINE * XR Abdomen [...] technique. Diffuse osteopenia. No acute osseous abnormalities. [facility]-[id number] Procedure Note Hm Interface, Radiology Results Incoming [...] technique. Diffuse osteopenia. No acute osseous abnormalities. [facility]-[id number] Performing Organization Address City/State/Zipcode Phone Number [facility] [address] [place] [address] * Blood culture, aerobic & anaerobic (01/26/2018 12:50 AM CDT) Blood culture No growth after 5 days of [facility] DEPARTMENT isolate incubation. OF PATHOLOGY Comment: AND GENOMIC Specimen Information MEDICINE Specimen Source: Blood Specimen Site: Other Specimen Blood - Other- Detailed Description Required Performing Organization Address City/State/Zipcode Phone Number [facility] DEPARTMENT OF [address] [place] [address] PATHOLOGY AND GENOMIC MEDICINE * IR Tunneled Dialysis Catheter Replacement/Exchange (01/02/2018 9:37 AM CDT) Specimen Narrative Performed At Procedure: Change of tunneled dialysis catheter [facility] Clinical History: End-stage renal disease. The patient's indwelling catheter is not functioning. Sedation: Versed and fentanyl were utilized for monitored conscious sedation during the procedure. The patient was transferred to the recovery room at the end of the procedure for further monitoring. Unjl-zi-vije time 15 minutes Anesthesia: Local Radiation dose: [...] above. Blood Loss: Less than 1 mL [facility]-[id number] Procedure Note Interface, Radiology Results Incoming - 01/02/2018 9:51 AM CDT Procedure: Change of tunneled dialysis catheter Clinical History: End-stage renal disease. The patient's indwelling catheter is not functioning. Sedation: Versed and fentanyl were utilized for monitored conscious sedation during the procedure. The patient was transferred to the recovery room at the end of the procedure for further monitoring. Erwo-ka-wema time 15 minutes Anesthesia: Local Radiation dose: [...] above. Blood Loss: Less than 1 mL [facility]-[id number] Performing Organization Address City/[facility] Phone Number [facility] [address] [place] [address] * Vancomycin level, random (01/01/2018 4:38 AM CDT) Only the most recent of 2 results within the time period is included. Vancomycin, SEE COMMENT ug/mL [facility] DEPARTMENT random Comment: OF PATHOLOGY Footnote--------- AND GENOMIC Specimen integrity MEDICINE questionable.Recollect requested for VANCT.APPLE ISO/M3SW notified by KXG at01/01/201806:39 . Specimen Serum Performing Organization Address City/[facility] Phone Number [facility] DEPARTMENT OF [address] [phone] PATHOLOGY AND GENOMIC MEDICINE * Echocardiogram complete w contrast and 3D if needed (12/30/2017 9:36 AM CDT) Specimen Narrative Performed At [facility] Echocardiography Report [address] [address], [place] [address] Pat.Name:SONAM BERMEO Pat.ID:[id number] .Date: 12/30/2017 Refer.MD:JAYDEN JANSEN MD Exam Time: 9:20:00 AMStudy Type:Routine Echo Height:63inBSA: 1.73 m2 DOBAge:1985,32Y Sex: FEMALE BP:111/79HR: 103 bpm Sonogrphr: Aby Castro, RDCS, RVTPat. Stat.:[address] Status:Final Echo Event ID:[id number] Order ID:[id number] Reason for Study:CHF History / Clinical:Congestive Heart [...] RAPof 10 mmHg. MEASUREMENTS: 2D Parasternal [place] LVOT 1.8 cmIVSd 1 cm LA Ds4.4 cmLVPWd0.8 cm Ao Rtd 2.5 cmIndex1.5 cm/m LV Kmid144 g(87-129) LVIDd5.6 cmIndex3.2 cm/m LVM Emzij442.4 g/m2 LVIDs5 cmRWT0.3 LV%fs 10.7 % LV EF Biplane ZWWMW788.6 ml (59-136) Ugwjn702.8 ml/m LV SV 57.6 ml WJGGO699 uaGlblg05.5 ml/m LV EF 29 %(55-75) LA Sng [...] - 12/30/2017 2:42 PM CDT Echocardiography Report [address] [address] [facility].Name: SONAM BERMEO Rosario.ID: [id number] .Date: 12/30/2017 Refer.MD: JAYDEN JANSEN MD Exam Time: 9:20:00 AM Study Type:Routine Echo Height: 63in BSA: 1.73 m2 Age: 9 1985,32Y Sex: FEMALE BP: 111/79 HR: 103 bpm Sonogrphr: Aby Castro RDCS, RVT Pat. Stat.:Inpatient Room: [address] Study Status:Final Echo Event ID:[id number] Order ID: [id number] Reason for Study:CHF History / Clinical:Congestive Heart [...] of 10 mmHg. MEASUREMENTS: 2D Parasternal [place] LVOT 1.8 cm IVSd 1 cm LA [...] M.D. Performing Organization Address City/State/Zipcode Phone Number [facility] [address] [place] [address] * Pv duplex venous lower extremity (12/29/2017 2:10 PM CDT) Specimen Narrative Performed At [facility] Vascular Ultrasound Laboratory Lower Extremity Venous Report [address] [id number] Pat.Name:SONAM BERMEO Lili Pat.ID:[id number] .Date: 12/29/2017 Refer.MD:JAYDEN JANSEN MD Exam Time: 1:53:00 PMStudy Type:LE Venous Height:63inWeight:153lb BSA: 1.73 m2 DOBAge:1985,32Y Sex: FEMALESonogrphr: Hugo Bliss RN, S Pat. Stat.:Inpatient Room:[facility] TapeVol: PM, CPT - 4: 46457 Echo Event ID:[id number] Order ID:[id number] Reason for Study:Bilateral leg edema. Procedures:Colorflow, Grayscale/2D, [...] Vascular Ultrasound Laboratory Lower Extremity Venous Report [address] [address] Pat.Name: SONAM BERMEO Pat.ID: [id number] .Date: 12/29/2017 Refer.MD: JAYDEN JANSEN MD Exam Time: 1:53:00 PM Study Type:LE Venous Height: 63in Weight: 153lb BSA: 1.73 m2 Age: 9 1985,32Y Sex: FEMALE Sonogrphr: Hugo Bliss RN, RVS Pat. Stat.:Inpatient Room: [facility] Tape Vol: PM, CPT - 4: 61487 Echo Event ID:[id number] Order ID: [id number] Reason for Study:Bilateral leg edema. Procedures:Colorflow, Grayscale/2D, [...] Organization Address City/State/Zipcode Phone Number [facility] [address] [place] [address] * XR Shoulder 2+ Vw Left (12/28/2017 [...] Central venous catheter and transthoracic pacemaker present. [facility]-[id number] Procedure Note Interface, Radiology Results Incoming - [...] Central venous catheter and transthoracic pacemaker present. [facility]-[id number] Performing Organization Address [facility]/Zipcode Phone Number [facility] [address] [place] [address] * US Renal (12/28/2017 1:35 PM CDT) Specimen Narrative Performed At EXAMINATION:US RENAL [facility] CLINICAL HISTORY:hydroureter COMPARISON:06/04/2015 IMPRESSION: 1.There is no hydronephrosis. 2.Renal cortical echogenicity is increased suggesting medical renal disease. 3.Right kidney measures 10.2 x 4 x 3.8 cm. 4.Left kidney measures 11.3 x 4.5 x 4.8 cm. 5.Bladder is unremarkable. [facility]-[id number] Procedure Note Interface, Radiology Results Incoming - 12/28/2017 2:43 PM CDT EXAMINATION: US RENAL CLINICAL HISTORY: hydroureter COMPARISON: 06/04/2015 IMPRESSION: 1. There is no hydronephrosis. 2. Renal cortical echogenicity is increased suggesting medical renal disease. 3. Right kidney measures 10.2 x 4 x 3.8 cm. 4. Left kidney measures 11.3 x 4.5 x 4.8 cm. 5. Bladder is unremarkable. [facility]-[id number] Performing Organization Address City/[facility]/Zipcode Phone Number [facility] [address] [place] [address] * Hemoglobin A1c (12/28/2017 5:00 AM CDT) Hemoglobin A1C 6.8 (H) 4.0 - 5.6 % [facility] DEPARTMENT Comment: OF PATHOLOGY HbA1c [...] Blood Performing Organization Address City/State/Zipcode Phone Number [facility] DEPARTMENT OF [address] [place] [address] PATHOLOGY AND GENOMIC MEDICINE * CT Abdomen [...] shift/edema. Correlation to exclude colitis is advised. [facility]-[id number] Procedure Note Hm Interface, Radiology Results Incoming [...] shift/edema. Correlation to exclude colitis is advised. [facility]-[id number] Performing Organization Address City/State/Zipcode Phone Number [facility] [address] [place] [address] * Urinalysis screen and microscopy, with reflex to culture (12/28/2017 3:30 AM CDT) Specimen site Clean catch [facility] DEPARTMENT OF PATHOLOGY AND GENOMIC MEDICINE Color, UA Yellow [facility] DEPARTMENT OF PATHOLOGY AND GENOMIC MEDICINE Appearance, UA Hazy [facility] DEPARTMENT OF PATHOLOGY AND GENOMIC MEDICINE Specific 1.017 1.001 - 1.035 [facility] DEPARTMENT gravity, UA OF PATHOLOGY AND GENOMIC MEDICINE pH, UA 6.0 5.0 - 8.5 [facility] DEPARTMENT OF PATHOLOGY AND GENOMIC MEDICINE Protein, UA 3+ (A) Negative [facility] DEPARTMENT OF PATHOLOGY AND GENOMIC MEDICINE Glucose, UA Negative Negative [facility] DEPARTMENT OF PATHOLOGY AND GENOMIC MEDICINE Ketones, UA Negative Negative [facility] DEPARTMENT OF PATHOLOGY AND GENOMIC MEDICINE Bilirubin, UA Positive@UBIL (A) Negative [facility] DEPARTMENT OF PATHOLOGY AND GENOMIC MEDICINE Blood, UA Small (A) Negative [facility] DEPARTMENT OF PATHOLOGY AND GENOMIC MEDICINE Nitrite, UA Negative Negative [facility] DEPARTMENT OF PATHOLOGY AND GENOMIC MEDICINE Urobilinogen, <2.0 <2.0 [facility] DEPARTMENT UA OF PATHOLOGY AND GENOMIC MEDICINE Leukocyte Moderate (A) Negative [facility] DEPARTMENT esterase, UA OF PATHOLOGY AND GENOMIC MEDICINE Epithelial 1 /HPF [facility] DEPARTMENT cells, UA OF PATHOLOGY AND GENOMIC MEDICINE WBC, UA 129 (H) 0 - 4 /HPF [facility] DEPARTMENT OF PATHOLOGY AND GENOMIC MEDICINE RBC, UA 15 (H) 0 - 5 /HPF [facility] DEPARTMENT OF PATHOLOGY AND GENOMIC MEDICINE Bacteria, UA None seen None seen [facility] DEPARTMENT OF PATHOLOGY AND GENOMIC MEDICINE Yeast, UA Many (A) [facility] DEPARTMENT OF PATHOLOGY AND GENOMIC MEDICINE Yeast with None seen [facility] DEPARTMENT pseudohyphae, OF PATHOLOGY UA AND GENOMIC MEDICINE Hyaline casts, 18 /LPF [facility] UA OF PATHOLOGY AND GENOMIC MEDICINE Specimen Urine Performing Organization Address City/[facility]/Zipcode Phone Number [facility] DEPARTMENT OF [address] [place] [address] PATHOLOGY AND GENOMIC MEDICINE * Gram stain (12/28/2017 3:30 AM CDT) Gram stain Rare WBC's [facility] DEPARTMENT result Rare Budding yeast OF PATHOLOGY Comment: AND GENOMIC Specimen Information MEDICINE Specimen Source: Urine Specimen Site: Clean catch Specimen Urine Performing Organization Address City/[facility]/Zipcode Phone Number [facility] DEPARTMENT OF [address] [place] [address] PATHOLOGY AND GENOMIC MEDICINE * Urine culture (12/28/2017 3:30 AM CDT) Urine culture Marleen glabrata [facility] DEPARTMENT isolate >10-5 cfu/ml OF PATHOLOGY The performance AND GENOMIC characteristics of this assay MEDICINE on this isolate were validated by the Microbiology Laboratory at [facility].This source has not been approved by the U.S. Food and Drug Administration.The results are not intended to be used as the sole means for clinical diagnosis or patient management.The Microbiology Laboratory is authorized under the clinical Laboratory Improvement Amendments of 1988 (CLIA-88) to perform high complexity testing. (A) Comment: Specimen Information Specimen Source: Urine Specimen Site: Clean catch Urine culture Gram positive betsy [facility] DEPARTMENT isolate 10-2 cfu/ml OF PATHOLOGY (A) AND GENOMIC MEDICINE Specimen Urine Antibiotic Method Susceptibility Organism Micafungin BP 0.016 mcg/mL: Susceptible Marleen glabrata Amphotericin B BP 1 mcg/mL: Susceptible Marleen glabrata Posiconazole BP 1 mcg/mL Marleen glabrata Itraconazole BP 1.0 mcg/mL: Resistant Marleen glabrata Fluconazole BP 32 mcg/mL: Susceptible Marleen glabrata Performing Organization Address City/State/Zipcode Phone Number [facility] DEPARTMENT OF [address] [place] [phone] PATHOLOGY AND GENOMIC MEDICINE after 11/22/2017 Insurance Type Payer Benefit Subscriber ID Effective Phone Address Plan / Dates Group O GRISEL RECINOS xxxxxxxxx [id number] [facility] [employer] [facility] Advance Directives Patient has advance care planning documents, and code status on file. For more i nformation, please contact: Pavel Roberts [address] [place] [id number] Date Inactivated Comments Code Status Date Activated 02/18/2018 8:23 PM Full Code 02/08/2018 4:32 PM Code Status decision reached by: Patient
--- OUTSIDE RECORDS SUMMARY | 2018-11-23 19:20 | XMS REPORT | Clinical Summary ---
Author Author KALYAN [facility] Address Unknown Phone Unavailable Care Team Providers Care Machining Technician Name Role Phone LonnyGer Jacqueline PCP Allergies [...] Active B complex Take 1 tablet 0 54-scigl-X-biot-zinc by mouth (DIALYVITE) [id number] daily. qo-sq-toe-mg Tab 01/14/2019 Active phenytoin (DILANTIN) 100 Take [...] Surgeon PROCEDURE DONE OUTSIDE OR [facility] Ahmed, Shamoon, MD Siddiqui, Angela Oliva MD Edema, unspecified type (Primary Dx); ESRD on hemodialysis (HCC); Postoperative wound infection, subsequent encounter; Chest pain, unspecified type; Chronic pain due to trauma; Surgical site infection 01/03/2018 Hospital Cardiology - Encounter 01/23/2018 01/03/2018 Orders Only General Internal Medicine after 11/22/2017 Social History Date Tobacco Use Types Packs/Day [...] ms QTC Calculatio n(Bazett) 452 ms P Fulton 61 degrees R Fulton 27 degrees T [place] 106 degrees Sinus tachycardi a Nonspecifi c [...] ms QTC Calculatio n(Bazett) 437 ms P [place]ult[place] 53 degrees R Fult[place] 0 degrees T [place] 174 degrees Sinus tachycardi a with Fusion [...] 12-LEAD STAT 01/03/2018 12:48 AM CDT after 11/22/2017 Results * ARRYTHMIA IMPLANT REPORT - SCAN (01/24/2018 1:40 PM CDT) Narrative Performed At * RHYTHM STRIP - SCAN (01/24/2018 1:40 PM CDT) Narrative Performed At * POC-Glucose meter (01/23/2018 9:24 AM CDT) Only the most recent of 67 results within the time period is included. POC-Glucose Meter 135 (H)Comment: TESTED AT 70 - 110 mg/dL [facility] [address] [facility] [place] [address] Specimen Blood Performing Organization Address City/State/Zipcode Phone Number [facility] [address] [place] [address] [facility] * HEMODIALYSIS INPATIENT (01/22/2018 5:54 PM [...] (01/21/2018 6:41 AM CDT) Result No growth [facility] Gram Stain Result 4+ WBCs [facility] Gram Stain Result No organisms seen [facility] Specimen Wound Performing Organization Address City/State/Zipcode Phone Number [facility] [address] [place] [address] MEDICAL CENTER * IR Tunneled Catheter Insertion (01/20/2018 1:02 PM CDT) Only the most recent of 2 results within the time period is included. Specimen Narrative Performed At FINAL REPORT [facility] Tunneled dialysis catheter exchange, partial today History: Renal failure. Nonfunctioning hemodialysis catheter. Unable to aspirate from the right portal Modality: Sonography and fluoroscopy. Sedation: Versed 1.0 mg and fentanyl 50 mcg was given intravenously for conscious sedation.Vital signs were monitored throughout the procedure by a nurse, and remained stable. Physician intra-service time was 20 minutes. Pediatric Oncology Nurse:Kayla. Manufacturing Software Engineer: Nadia Inman MD. Approach: Right chest tunneled [...] new 19 cm cuff to tip 15.5 [place]i Duraflow two catheter was then advanced over [...] MD Report Verified Date/Time:01/20/2018 17:29:46 Reading Location: [place] [address] Angio Body Reading Room Procedure Note Interface, [...] stable. Physician intra-service time was 20 minutes. Pediatric Oncology Nurse: Kayla. Manufacturing Software Engineer: Nadia Inman MD. Approach: Right chest tunneled [...] new 19 cm cuff to tip 15.5 [place] Duraflow two catheter was then advanced over [...] Report Verified Date/Time: 01/20/2018 17:29:46 Reading Location: [facility] P048 Angio Body Reading Room Performing Organization Address City/State/Zipcode Phone Number [facility] * PT/aPTT (01/20/2018 5:26 AM CDT) Only the most recent of 5 results within the time period is included. Protime 17.8 (H) 11.7 - 14.[address] [facility] INR 1.[address] <=[address]9 [facility] PTT 36.8 (H) 22.5 - 36.[address] [facility] Specimen Blood Narrative Performed At RECOMMENDED COUMADIN/WARFARIN INR THERAPY RANGES [facility] STANDARD DOSE: 2.0 - 3.0 Includes: PROPHYLAXIS for venous thrombosis, [facility] systemic embolization; TREATMENT for venous thrombosis and/or pulmonary embolus. HIGH RISK: Target INR is 2.5-3.5 for patients with mechanical heart valves. Performing Organization Address City/State/Zipcode Phone Number [facility] [address] [place] [address] MEDICAL [facility]ENTER * CBC with platelet count + automated diff (01/20/2018 5:26 AM CDT) Only the most recent of 16 results within the time period is included. WBC 4.6 3.5 - 10.5 K/L [facility] RBC 3.04 (L) 3.93 - 5.22 M/L [facility] Hemoglobin 8.4 (L) 11.2 - 15.7 GM/DL [facility] Hematocrit 28.9 (L) 34.1 - 44.9 % [facility] MCV 95.1 (H) 79.4 - 94.[address] [facility] MCH 27.6 25.6 - 32.[address] [facility] MCHC 29.1 (L) 32.2 - 35.5 GM/DL [facility] RDW 17.8 (H) 11.7 - 14.4 % [facility] Platelets 169 150 - 450 K/CU MM [facility] MPV 10.8 9.4 - 12.[address] [facility] nRBC 0 0 - 0 /[address] [facility] % Neutros 77 % [facility] % Lymphs 16 % [facility] % Monos 3 % [facility] % Eos 2 % [facility] % Baso 1 % [facility] # Neutros 3.51 1.56 - 6.13 K/L [facility] # Lymphs 0.75 (L) 1.18 - 3.74 K/L [facility] # Monos 0.13 (L) 0.24 - 0.36 K/L [facility] # Eos 0.11 0.04 - 0.36 K/L [facility] # Baso 0.03 0.01 - 0.08 K/L [facility] Immature 1 0 - 1 % [facility] Granulocytes-Relative [facility] Specimen Blood Performing Organization Address City/[facility] Phone Number [address] * Vancomycin level, random (01/20/2018 5:26 AM CDT) Only the most recent of 4 results within the time period is included. Vancomycin Rm 19.5 ug/mL [facility] Specimen Blood Narrative Performed At Reference Range: No Normals [facility] Performing Organization Address City/[facility] Mex[facility] Phone Number [address] * TRANSFUSION SERVICE REPORT - SCAN (01/18/2018 6:00 PM CDT) Only the most recent of 2 results within the time period is included. Narrative Performed At * Phosphorus (01/18/2018 9:35 AM CDT) Phosphorus 2.4 2.3 - 4.7 mg/dL [facility] Specimen Blood Performing Organization Address City/[facility]/[place] [address] [facility] * Magnesium (01/18/2018 9:35 AM CDT) Only the most recent of 2 results within the time period is included. Magnesium 1.7 1.6 - 2.6 mg/dL [facility] Specimen Blood Performing Organization Address City/State/Zipcode Phone Number [facility] [address] [place] [address] [facility] * Basic metabolic panel (01/18/2018 9:35 AM CDT) Only the most recent of 16 results within the time period is included. Sodium 135 (L) 136 - 145 meq/L [facility] Potassium 3.2 (L) 3.5 - 5.1 meq/L [facility] Chloride 99 98 - 107 meq/L [facility] CO2 29 22 - 29 meq/L [facility] BUN 13 7 - 21 mg/dL [facility] Creatinine 2.07 (H) 0.57 - 1.25 mg/dL [facility] Glucose 135 (H) 70 - 105 mg/dL [facility] Calcium 7.8 (L) 8.4 - 10.2 mg/dL [facility] EGFR 34Comment: ESTIMATED GFR IS mL/min/1.73 sq m [facility] NOT ACCURATE CREATININE [facility] CLEARANCE IN PREDICTING GLOMERULAR FILTRATION RATE. ESTIMATED GFR IS NOT APPLICABLE FOR DIALYSIS PATIENTS. Specimen Blood Performing Organization Address [facility] Phone Number [facility] [address] [place] [address] [facility] * Prepare Leuko-Red & Irrad RBC (01/17/2018 11:54 PM CDT) CROSSMATCH COMPATIBLE SAFETRACE TX Unit ABO O Pos SAFETRACE TX UNIT NUMBER [id number] SAFETRACE TX Status TRANSFUSED SAFETRACE TX Blood Bank Product RED BLOOD CELLS SAFETRACE TX PRODUCT CODE [id number] SAFETRACE TX Specimen Other Performing Organization Address City/[facility] Phone Number SAFETRACE [place] * CT upper extremity with contrast right (01/17/2018 9:24 PM CDT) Specimen Narrative Performed At FINAL REPORT [facility] CT, EXTREMITY, UPPER, WITH CONTRAST, RIGHT, [...] MD Report Verified Date/Time:01/17/2018 22:06:08 Reading Location: [facility] C013T Transitional Reading Room Procedure Note Interface, [...] Report Verified Date/Time: 01/17/2018 22:06:08 Reading Location: [facility] B1 C013T Transitional Reading Room Performing Organization Address City/State/Zipcode Phone Number Prescription Eyewear * CT upper extremity with contrast left (01/17/2018 9:24 PM CDT) Specimen Narrative Performed At FINAL REPORT Prescription Eyewear CT, EXTREMITY, UPPER, WITH CONTRAST, RIGHT, CT, [...] MD Report Verified Date/Time:01/17/2018 22:06:08 Reading Location: [address] Transitional Reading Room Procedure Note Interface, [...] Report Verified Date/Time: 01/17/2018 22:06:08 Reading Location: [address] Transitional Reading Room Performing Organization Address City/State/Zipcode Phone Number Prescription Eyewear * CT chest without IV contrast (01/16/2018 11:42 PM CDT) Specimen Narrative Performed At FINAL REPORT Prescription Eyewear CT, CHEST, WITHOUT CONTRAST INDICATION: Chest pain [...] MD Report Verified Date/Time:01/16/2018 23:55:03 Reading Location: [address] Reading Room Procedure Note Interface, [...] Report Verified Date/Time: 01/16/2018 23:55:03 Reading Location: [address] Reading Room Performing Organization Address City/State/Zipcode Phone Number [facility] * Transfuse Leuko-Red & Irrad RBC (01/16/2018 3:05 PM CDT) Only the most recent of 2 results within the time period is included. * Type and screen, automated (01/16/2018 12:17 PM CDT) ABO/RH AUTOMATED (BEAKER) O POSITIVE [facility] Ab Scrn NEGATIVE [facility] Specimen Blood Performing Organization Address City/State/Zipcode Phone Number [facility] [address] [place] [address] [facility] * CBC (Hemogram only) (01/16/2018 4:01 AM CDT) WBC 3.7 3.5 - 10.5 K/L [facility] RBC 2.49 (L) 3.93 - 5.22 M/L [facility] Hemoglobin 6.9 (L) 11.2 - 15.7 GM/DL [facility] Hematocrit 24.0 (L) 34.1 - 44.9 % [facility] MCV 96.4 (H) 79.4 - 94.[address] [facility] MCH 27.7 25.6 - 32.[address] [facility] MCHC 28.8 (L) 32.2 - 35.5 GM/DL [facility] RDW 18.7 (H) 11.7 - 14.4 % [facility] Platelets 152 150 - 450 K/CU MM [facility] MPV 10.8 9.4 - 12.[address] [facility] nRBC 0 0 - 0 /[address] [facility] Specimen Blood Performing Organization Address City/State/Zipcode Phone Number [facility] [address] [place] [address] MEDICAL CENTER * XR chest [...] MD Report Verified Date/Time:01/14/2018 22:17:24 Reading Location: [facility] Mammo Reading Room Procedure Note Interface, External [...] Report Verified Date/Time: 01/14/2018 22:17:24 Reading Location: [facility] Mammo Reading Room Performing Organization Address City/State/Zipcode Phone Number GE [facility] * Clostridium difficile [facility] Toxin (01/14/2018 2:05 AM CDT) C. Difficle Toxin Negative Negative [facility] C. Difficile [facility] Antigen Positive (A)Comment: C. Negative [facility] difficile present but toxin [facility] not detected. Indicates colonization with non-toxigenic strain or level of toxin below detectable levels. No need for enteric isolation. Treatment is rarely needed (only when strong clinical suspicion for Clostridium difficile infection) Specimen Stool Narrative Performed At Testing performed by [employer] Rapid Cassette Assay.For [facility], published [facility] sensitivity of the assay is 98.7% compared to cytotoxicity testing.For Toxin [facility] AB, published sensitivity is 87.8% and specificity 99.4% compared to cytotoxicity testing. Verification of kit performance was done by the [facility] prior to clinical use. Performing Organization Address [facility] Phone Number [facility] [address] [place] [address] MEDICAL CENTER * HEMODIALYSIS INPATIENT [...] CDT) TSH 3.42 0.35 - 4.94 uIU/mL [facility] Specimen Blood Performing Organization Address City/State/Zipcode Phone Number [facility] [address] [place] [address] [facility] * CT brain without IV contrast (01/11/2018 12:53 PM CDT) Specimen Narrative Performed At FINAL REPORT [facility] CT head without contrast 01/11/2018 1:34 [...] MD Report Verified Date/Time:01/11/2018 13:35:22 Reading Location: [address] Ortho Consult Reading Room Procedure Note [...] Report Verified Date/Time: 01/11/2018 13:35:22 Reading Location: [facility] B1 C013X Ortho Consult Reading Room Performing Organization Address City/State/[facility]ode Phone Number [facility] * Hemoglobin and hematocrit (01/10/2018 6:15 PM CDT) Hemoglobin 8.4 (L) 11.2 - 15.7 GM/DL [facility] Hematocrit 28.5 (L) 34.1 - 44.9 % [facility] Specimen Blood Performing Organization Address City/[facility] Mex[facility]ode Phone Number [facility] [address] [place] [address] [facility] * Vancomycin level, trough (01/10/2018 3:09 PM CDT) Vancomycin Tr 12.4 10.0 - 20.0 ug/mL [facility] Specimen Blood Narrative Performed At Send after dialysis please [facility] Performing Organization Address City/[facility] Phone Number [facility] [address] [place] [address] [facility] * ECG 12 lead (01/10/2018 7:31 AM CDT) Only the most recent of 2 results within the time period is included. Specimen Narrative Performed At Ventricular Rate 123 BPM [facility] Atrial Rate 123 BPM P-R Interval 164 ms QRS Duration 88 ms Q-T Interval 316 ms QTC Calculation(Bazett) 452 ms P Fulton 61 degrees R Fulton 27 degrees T [place] 106 degrees Sinus tachycardia Nonspecific T wave [...] 316 ms QTC Calculation(Bazett) 452 ms P [place]ult[place] 61 degrees R [place] 27 degrees T [place] 106 degrees Sinus tachycardia Nonspecific T wave abnormality Prolonged QT Abnormal ECG When compared with ECG of 03-JAN-2018 00:48, Fusion complexes are no longer Present Confirmed by Charlene KELLOGG BASANT ([id number]) on 01/12/2018 8:44:48 PM Performing Organization Address City/State/[facility] Mex[facility]ode Phone Number [employer] MUSE * XR chest 1 view portable / bedside (01/10/2018 5:28 AM CDT) Only the most recent of 2 results within the time period is included. Specimen Narrative Performed At FINAL REPORT [facility] Chest one view. Clinical history: SOB post [...] MD Report Verified Date/Time:01/10/2018 06:32:36 Reading Location: [address] Body Reading Room Procedure Note [...] Report Verified Date/Time: 01/10/2018 06:32:36 Reading Location: [facility] C013Y CT Body Reading Room Performing Organization Address City/State/[facility]out Phone Number [facility] * C-Reactive Protein (01/10/2018 4:34 AM CDT) Only the most recent of 2 results within the time period is included. CRP 2.35 (H) 0.00 - 0.50 mg/dL [facility] Specimen Blood Performing Organization Address [facility]out Phone Number [facility] [address] [place] [address] [phone] [place] [address] * Lactic acid, venous, whole blood (01/10/2018 4:23 AM CDT) Lactate, Venous 2.7 (H) 0.5 - 2.2 mmol/L [facility] Specimen Blood Narrative Performed At Effective 08/17/2015: Units/Reference Range Change [facility] New: 0.5-2.2 mmol/LPrevious: 5-20 mg/dL [facility] Performing Organization Address [facility] [place] [address] [phone] [place] [address] * IR Tunneled Catheter Exchange (01/09/2018 5:40 PM CDT) Specimen Narrative Performed At FINAL REPORT [facility] Procedure: Removal replaced damage right internal [...] MD Report Verified Date/Time:01/09/2018 19:06:03 Reading Location: [place] [address] Angio Body Reading Room Procedure Note Interface, [...] Report Verified Date/Time: 01/09/2018 19:06:03 Reading Location: [place] [address] Angio Body Reading Room Performing Organization Address City/State/Zipcode Phone Number [facility] * hCG, quantitative, (01/09/2018 4:08 AM CDT) hCG Quant <1 0 - 10 mIU/mL [facility] Specimen Blood Narrative Performed At Non- Females: <10 mIU/mL [facility] Females: [facility] Gestation AgeReference Range(mIU/mL) 0.2-1 Week5-50 1-2 [id number] 2-3 Weeks 100-5,000 3-4 Weeks 500-10,000 4-5 Weeks 1,000-50,000 5-6 Weeks10,000-100,000 6-8 Weeks15,000-200,000 2-3 Months 10,000-100,000 Performing Organization Address City/State/Zipcode Phone Number [facility] [address] [place] [address] MEDICAL CENTER * PERMANENT LAB REPORT - SCAN (01/07/2018 11:13 AM CDT) Narrative Performed At * Immunofixation electrophoresis (TONYA) (01/06/2018 4:08 PM CDT) IgG 3,413 (H) 540 - 1,822 mg/dL [facility] IgA 483 63 - 484 mg/dL [facility] IgM 130 22 - 293 mg/dL [facility] Serum TONYA Identification No monoclonal bands detected. [facility] Polyclonal distribution of [facility] immunoglobulins. Pathologist: Belkis Styles MD [facility] (electronic signature) [facility] Specimen Blood Performing Organization Address City/[facility]/Zipcode Phone Number [address] [address] [facility] * Protein electrophoresis, serum (01/06/2018 4:08 PM CDT) Albumin Fraction 2.6 (L) 3.5 - 5.5 g/dL [facility] Alpha 1 Fraction 0.3 0.2 - 0.4 g/dL [facility] Alpha 2 Fraction 0.8 0.5 - 0.9 g/dL [facility] Beta Fraction 1.0 0.6 - 1.1 g/dL [facility] Gamma Globulin Fraction 3.2 (H) 0.7 - 1.7 g/dL [facility] Interpretation Decreased albumin consistent [facility] with renal protein loss. [facility] Polyclonal elevation of gamma fraction, which may be seen with chronic inflammation and/or recent administration of IVIG. Serum TONYA ordered to exclude presence of small monoclonal protein underlying. Pathologist: Belkis Styles MD [facility] (electronic signature) [facility] Protein, Total 7.8 6.0 - 8.3 gm/dL [facility] Specimen Blood Performing Organization Address City/[facility]/Zipcode Phone Number [facility] [address] [place] [address] [facility] * PTH, intact (01/06/2018 4:08 PM CDT) PTH 80.1 (H) 8.5 - 72.5 pg/mL [facility] Specimen Blood Performing Organization Address City/State/Zipcode Phone Number [facility] [address] [place] [address] [facility] * Lactate dehydrogenase (LDH) (01/06/2018 4:08 PM CDT) LDH 171 125 - 220 U/L [facility] Specimen Blood Performing Organization Address City/State/Zipcode Phone Number [facility] [address] [place], [place] [phone] [facility] * XR shoulder complete 2 views min [...] MD Report Verified Date/Time:01/05/2018 10:47:29 Reading Location: [facility] [address] [place] [address] Reading Room Procedure Note Interface, External Ris [...] Report Verified Date/Time: 01/05/2018 10:47:29 Reading Location: [address] Transitional Reading Room Performing Organization Address City/State/Zipcode Phone Number KAYAK * XR elbow 3 views min left (01/05/2018 10:00 AM CDT) Specimen Narrative Performed At FINAL REPORT [facility] LEFT ELBOW 3 VIEWS HISTORY: Left elbow [...] MD Report Verified Date/Time:01/05/2018 10:51:25 Reading Location: [facility] C0[facility] Transitional Reading Room Procedure Note Interface, External [...] Report Verified Date/Time: 01/05/2018 10:51:25 Reading Location: [address] Transitional Reading Room Performing Organization Address [facility] Phone Number RIS * XR humerus 2 views left (01/05/2018 10:00 AM CDT) Specimen Narrative Performed At FINAL REPORT [facility] LEFT HUMERUS 2 VIEWS HISTORY: Left arm [...] MD Report Verified Date/Time:01/05/2018 10:55:40 Reading Location: [address] Transitional Reading Room Procedure Note Interface, [...] Report Verified Date/Time: 01/05/2018 10:55:40 Reading Location: [address] Transitional Reading Room Performing Organization Address [facility] Phone Number [facility] * HEMODIALYSIS INPATIENT [...] CDT) hepatitis B Surface Ag Nonreactive Nonreactive [facility] Specimen Blood Performing Organization Address City/[facility] Phone Number [address] * Hemoglobin A1c (01/03/2018 9:16 AM CDT) Hemoglobin A1C 6.0 4.3 - 6.1 % [facility] Specimen Blood Performing Organization Address City/[facility] Phone Number [address] * ED ECG Interpretation (01/03/2018 6:35 AM CDT) Narrative Performed At Meghan Montiel MD 01/03/20186:35 AM ECG/EKG Interpretation Date/Time: 01/03/2018 5:09 AM Performed by: MEGHAN MONTIEL Authorized by: MEGHAN MONTIEL The ECG was interpreted by ED physician. The ECG is interpreted as sinus rhythm. Rate is tachycardic. Fulton is normal. Clinical Impression: non-specific ECGECG reviewed and does not meet STEMI criteria. Patient tolerance: Patient tolerated the procedure well with no immediate complications * Urinalysis w/ Microscopic (01/03/2018 4:24 AM CDT) Color, UA Yellow [facility] Clarity, UA Hazy [facility] Specific Blair, UA 1.016 1.001 - 1.035 [facility] pH, UA 6.0 5.0 - 8.0 [facility] Protein, UA 300 mg/dL (A) Negative [facility] Glucose, UA Negative Negative [facility] Ketones, UA Negative Negative [facility] Bilirubin, UA Negative Negative [facility] Blood, UA Moderate (A) Negative [facility] Nitrite, UA Negative Negative [facility] Leukocytes, UA Large (A) Negative [facility] Urobilinogen, UA 0.2 0.2 - 1.0 mg/dL [facility] RBC, UA 104 /HPF [facility] WBC, UA 57 /HPF [facility] Bacteria, UA Few [facility] Hyaline Casts, UA 27 /LPF [facility] Granular Casts, UA 4 /LPF [facility] Amorphous Crystals Occasional [facility] Specimen Source Urine, Straight Catheter [facility] Specimen Urine - Urine, Straight Catheter Performing Organization Address City/State/Zipcode Phone Number [facility] [address] [place] [address] MED[facility] * Troponin I (01/03/2018 1:09 AM CDT) Troponin I 0.02 0.00 - 0.03 ng/mL [facility] Specimen Blood Narrative Performed At Troponin I [...] disease, and persistent tachyarrhythmia. Performing Organization Address City/[facility] Phone Number [address] * B-type natriuretic peptide (01/03/2018 1:09 AM CDT) BNP 3,706 (H) 0 - 100 pg/mL [facility] Specimen Blood Performing Organization Address [facility] Phone Number [address] * Lipase (01/03/2018 1:09 AM CDT) Lipase 7 (L) 8 - 78 U/L [facility] Specimen Blood Performing Organization Address City/[facility] Phone Number [address] * Amylase (01/03/2018 1:09 AM CDT) Amylase 47 25 - 125 U/L [facility] Specimen Blood Performing Organization Address [facility] Phone Number [address] * Hepatic function panel (01/03/2018 1:09 AM CDT) Protein, Total 7.9 6.0 - 8.3 gm/dL [facility] Albumin 2.4 (L) 3.5 - 5.0 g/dL [facility] Total Bilirubin 0.5 0.2 - 1.2 mg/dL [facility] Bilirubin, Direct 0.3 0.1 - 0.5 mg/dL [facility] Alkaline Phosphatase 133 40 - 150 U/L [facility] AST 7 5 - 34 U/L [facility] ALT 6 6 - 55 U/L [facility] Specimen Blood Performing Organization Address City/State/Zipcode Phone Number [facility] [address] [place] [address] MEDICAL [facility]ENTER after 11/22/2017 Insurance Payer Benefit Subscriber ID Type Phone Address Plan / Group [employer] MEDICAID MEDICAID xxxxxxxxx [place] MEDICAID - MEDICAID MGD MEDICAID xxxxxxxxx Medicaid CARE [place] Non-Contra NONCONTRAC cted EMILY Advance Directives For more information, please contact: [facility] [address] [place] [phone] Date Inactivated Comments Code Status Date Activated 01/23/2018 6:21 PM Full Code 01/03/2018 7:16 AM This code status was determined by: Patient
--- OUTSIDE RECORDS SUMMARY | 2018-11-23 19:21 | XMS REPORT | Continuity of Care Document ---
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 Name Role Phone [employer] Unavailable Unavailable Problems Problem Status Onset Date Classification Date Reported Comments Source S3 Active 01/02/2016 Problem 11/12/2018 [facility] UTI Active 01/02/2016 Problem 11/12/2018 [facility] End stage renal disease on dialysis due to type 2 diabetes mellitus Active 10/23/2015 Problem 11/12/2018 [facility] Hyperkalemia Active 10/23/2015 Problem 11/12/2018 [facility] Myoclonic disorder Active 10/23/2015 Problem 11/12/2018 [facility] Volume overload Active 10/23/2015 Problem 11/12/2018 [facility] ESRD on dialysis Active 09/29/2015 Problem 11/12/2018 [facility] Edema Active 09/29/2015 Problem 11/12/2018 [facility] Abdominal pain Active 09/05/2015 Problem 11/12/2018 [facility] Anemia Active 02/26/2015 Problem 11/12/2018 [facility] Hypertension Active 12/17/2014 Problem 11/12/2018 [facility] Malaise and fatigue Active 12/17/2014 Problem 11/12/2018 [facility] Uncontrolled diabetes mellitus Active 12/17/2014 Problem 11/12/2018 [facility] Acute renal failure Active 07/30/2014 Problem 11/12/2018 [facility] Dehydration Active 07/30/2014 Problem 11/12/2018 [facility] Gastroparesis Active 07/30/2014 Problem 11/12/2018 [facility] UTI Active 07/30/2014 Problem 11/12/2018 [facility] Vomiting Active 07/30/2014 Problem 11/12/2018 [facility] Cystitis Active 07/01/2014 Problem 11/12/2018 [facility] Diabetes Active 07/01/2014 Problem 11/12/2018 [facility] Anemia, chronic renal failure Active Problem 11/12/2018 [facility] Cervical strain, acute Active Problem 11/12/2018 [facility] Chest pain Active Problem 11/12/2018 [facility] Dysuria Active Problem 11/12/2018 [facility] ESRD Active Problem 11/12/2018 [facility] Encounter for care related to feeding tube Active Problem 11/12/2018 [facility] Gastroparesis diabeticorum Active Problem 11/12/2018 [facility] Nausea & vomiting Active Problem 11/12/2018 [facility] Pelvic pain Active Problem 11/12/2018 [facility] Renal failure Active Problem 11/12/2018 [facility] Symptomatic anemia Active Problem 11/12/2018 [facility] Syncope Active Problem 11/12/2018 [facility] Vomiting and diarrhea Active Problem 11/12/2018 [facility] Medications Medication Details Route Status Patient Instructions Ordering Provider Order Date Source Promethazine Hcl 12.5 Mg Supp.rect Three Times A Day as needed for Vomiting Active Zeballos 10/20/2018 [facility] Morphine Sulfate (Ms Contin) 30 Mg Tablet.er, Oral Twice A Day Active 09/13/2017 [facility] Ascorbic Acid 500 Mg Tablet Twice A Day Active [place] 09/10/2017 [facility] Clonazepam 0.5 Mg Tablet Every 8 Hours as needed for Anxiety Active [place] 09/10/2017 [facility] Ferrous Sulfate 325 Mg Tablet Daily Active [place] 09/10/2017 [facility] Promethazine Hcl 25 Mg Tablet Every 8 Hours as needed for Nausea Active [place] 09/10/2017 [facility] Clonazepam 0.5 Mg Tablet Every 8 Hours as needed for Anxiety Active [place] 07/14/2017 [facility] Clonazepam 1 Mg Tablet, 2 Mg Oral Three Times A Day Active 07/14/2017 [facility] Diphenhydramine Hcl (Benadryl) 25 Mg Capsule, 25 Mg Oral Four Times Daily Active 07/14/2017 [facility] Docusate Sodium (Colace) 100 Mg Cap, 100 Mg Oral As Needed for Constipation Active 07/14/2017 [facility] Fluconazole , 150 Mg Oral Use As Directed Active [place] 07/14/2017 [facility] Lorazepam (Ativan) 1 Mg Tablet, Oral Twice A Day Active 07/14/2017 [facility] Methocarbamol 500 Mg Tablet, 500 Mg Oral Twice A Day Active 07/14/2017 [facility] Mirtazapine (Remeron) 15 Mg Tab.rapdis, 15 Mg Oral Bedtime Active 07/14/2017 [facility] Morphine Sulfate (Ms Contin) 30 Mg Tablet.er, 30 Mg Oral Every 6 Hours as needed for Pain Active 07/14/2017 [facility] Zolpidem Tartrate (Ambien) 10 Mg Tablet, 10 Mg Oral Bedtime as needed for Sleep Active 07/14/2017 [facility] Linezolid (Zyvox) 600 Mg Tablet, 600 Mg Oral Twice A Day Active [place] 07/04/2017 [facility] Promethazine Hcl 25 Mg Supp.rect, 1 Supp Rectal Twice A Day as needed for Nausea Active [place] 07/04/2017 [facility] Ceftin , 500 Mg Oral Daily Active [place] 06/30/2017 [facility] Fluconazole (Diflucan) 150 Mg Tablet, 150 Mg Oral Once Active [place] 06/30/2017 [facility] Metoclopramide Hcl 10 Mg Tablet Before Meals And At Bedtime Active [place] 06/27/2017 [facility] Pantoprazole Sodium (Protonix) 40 Mg Suspdr.pkt Twice Daily Before Meals Active [place] 06/27/2017 [facility] Diphenhydramine Hcl 50 Mg/1 Ml Disp.syrin, 50 Mg Intraven .before Dialysis Active 06/27/2017 [facility] Lorazepam (Ativan) 2 Mg Tablet, 2 Mg Oral Every Two Hours Active 06/27/2017 [facility] Promethazine Hcl (Phenergan Supp*) 25 Mg Supp, 1 Supp Rectal Twice A Day as needed for Nausea Active [place] 06/27/2017 [facility] Promethazine Hcl (Phenergan) 25 Mg/1 Ml Ampul, 25 Mg Intraven Every 4 Hours Active 06/27/2017 [facility] Cyclobenzaprine Hcl (Flexeril) 5 Mg Tablet, 10 Mg Oral Twice A Day Active 06/26/2017 [facility] Diphenoxylate Hcl/Atropine (Lomotil Tablet) 1 Each Tablet, 1 Tab Oral As Needed as needed for Diarrhea Active 06/26/2017 [facility] Morphine Sulfate In 0.9 % Nacl (Morphine-Ns 2 Mg/Ml Syringe) 2 Mg/1 Ml Disp.syrin, 4 Mg Intraven Q3hr as needed for Pain Active 06/25/2017 [facility] Docusate Sodium (Colace) 100 Mg Capsule Twice A Day Active [place] 06/03/2017 [facility] Epoetin Bharath (Epogen) 10,000 Unit/1 Ml Vial Every Saturday, Saturday, And Saturday Active [place] 06/03/2017 [facility] Polyethylene Glycol 3350 (Miralax) 17 Gm Powd.pack Daily Active [place] 06/03/2017 [facility] Cefuroxime Axetil (Cefuroxime) 250 Mg Tablet, 250 Mg Oral Every 12 Hours Active [place] 06/03/2017 [facility] Cyclobenzaprine Hcl 10 Mg Tablet, 10 Mg Oral Twice A Day Active [place] 06/03/2017 [facility] Diclofenac Epolamine (Flector) 1 Each Adh..patch, 1 Patch Topical Every 12 Hours Active [place] 06/03/2017 [facility] Fluticasone Propionate 1 Ea [place], 0 Ea Nasal Twice A Day Active [place] 06/03/2017 [facility] Insulin Regular, Human (Humulin R) 100 Unit/1 Ml Vial, 0 Unit Sub-Q Before Meals And At Bedtime Active [place] 06/03/2017 [facility] Sucralfate 1 G/10 Ml Susp, 1 G Oral Before Meals And At Bedtime Active [place] 06/03/2017 [facility] Urea 85.05 Gm Cr, 0 Gm Topical Twice A Day Active [place] 06/03/2017 [facility] Budesonide/Formoterol Fumarate (Symbicort 160-4.5 Mcg Inhaler) 10.2 Gm Hfa.aer.ad Twice A Day Active [place] 04/11/2017 [facility] Mirtazapine 15 Mg Tab Bedtime Active [place] 04/11/2017 [facility] Hydroxyzine Hcl 25 Mg Tablet, 25 Mg Oral Three Times A Day as needed for Anxiety Active [place] 04/11/2017 [facility] Meclizine Hcl 12.5 Mg Tablet, 12.5 Mg Oral Three Times A Day Active 04/11/2017 [facility] Metoclopramide Hcl 10 Mg Tablet, 10 Mg Oral Before Meals And At Bedtime Active [place] 04/11/2017 [facility] Sucralfate 1 Gm Tablet, 1 Gm Oral Three Times A Day Active [place] 04/11/2017 [facility] Sucralfate (Carafate) 1 Gm/10 Ml Oral.susp, 1 Gm Oral Three Times A Day Active 04/11/2017 [facility] Temazepam (Restoril) 15 Mg Capsule, 15 Mg Oral Bedtime as needed for Insomnia Active [place] 04/11/2017 [facility] Zolpidem Tartrate (Ambien) 10 Mg Tablet, 10 Mg Oral Bedtime Active 04/11/2017 [facility] Diphenhydramine Hcl (Benadryl) 25 Mg Capsule, 25 Mg Oral Four Times Daily Active 02/11/2017 [facility] Dicyclomine Hcl (Bentyl) 10 Mg Capsule, 10 Mg Oral As Needed Active 01/23/2017 [facility] Ferrous Sulfate 325 Mg Tablet, 325 Mg Oral Daily Active 01/23/2017 [facility] Pantoprazole Sodium (Protonix) 40 Mg Suspdr.pkt, 40 Mg Oral Twice A Day Active [place] 01/07/2017 [facility] Pantoprazole Sodium (Protonix) 40 Mg Tablet.dr, 40 Mg Oral Daily Active 01/07/2017 [facility] Furosemide (Lasix) 40 Mg Tablet Twice A Day Active [place] 12/20/2016 [facility] Insulin Regular, Human (Humulin R) 100 Unit/1 Ml Vial, 0 Unit Sub-Q Before Meals And At Bedtime Active [place] 12/20/2016 [facility] Loratadine/Pseudoephedrine (Claritin-D 24 Hour Tablet) 1 Each Tab.er.24h, 1 Each Oral Daily Active 12/16/2016 [facility] Fluticasone Propionate 1 Ea [place], 1 Ea Nasal Twice A Day Active [place] 06/13/2016 [facility] Furosemide (Lasix) 40 Mg Tablet, 40 Mg Oral Daily Active [place] 06/13/2016 [facility] Sulfamethoxazole/Trimethoprim (Sulfamethoxazole-Tmp Ds Tablet) 1 Each Tablet, 1 Ea Oral Every 12 Hours Active [place] 06/13/2016 [facility] Carvedilol (Coreg) 12.5 Mg Tab Twice A Day Active [place] 06/02/2016 [facility] Diltiazem Hcl (Cardizem) 30 Mg Tablet Four Times Daily Active [place] 06/02/2016 [facility] Amlodipine Besylate 10 Mg Tablet, 10 Mg Oral Daily Active 06/02/2016 [facility] Diphenhydramine Hcl (Benadryl) 25 Mg Capsule, 50 Mg Oral Active 06/02/2016 [facility] Furosemide (Lasix) 40 Mg Tablet, 40 Mg Oral Daily Active 06/02/2016 [facility] Guaifenesin (Mucinex) 600 Mg Tablet.er, 600 Mg Oral Every 6 Hours Active [place] 06/02/2016 [facility] Labetalol Hcl 300 Mg Tablet, 300 Mg Oral Every 12 Hours Active 06/02/2016 [facility] Levofloxacin (Levaquin) 500 Mg Tablet, 500 Mg Oral Daily At 1700 Active [place] 06/02/2016 [facility] Nifedipine (Nifedipine Er) 30 Mg Tab.er.24, 90 Mg Oral Every 12 Hours Active 06/02/2016 [facility] Orphenadrine Citrate (Norflex) 100 Mg Tab, 100 Mg Oral Twice A Day Active 05/27/2016 [facility] Alprazolam (Xanax) 0.5 Mg Tablet, 0.5 Mg Oral Three Times A Day Active 03/30/2016 [facility] Clonazepam 1 Mg Tablet, 0.5 Mg Oral Three Times A Day Active [place] 03/30/2016 [facility] Clonazepam 1 Mg Tablet, 1 Mg Oral Three Times A Day Active 03/30/2016 [facility] Gabapentin 100 Mg Capsule, 100 Mg Oral Twice A Day Active [place] 03/30/2016 [facility] Zolpidem Tartrate (Ambien) 5 Mg Tablet, 5 Mg Oral Bedtime as needed for Insomnia Active [place] 03/30/2016 [facility] Metoprolol Succinate 50 Mg Tab.er.24h, 50 Mg Oral Every 8 Hours Active 03/22/2016 [facility] Metoclopramide Hcl (Reglan) 10 Mg Tablet, 10 Mg Oral Three Times A Day Active 03/02/2016 [facility] Albuterol Sulfate 0.63 Mg/3 Ml Vial.neb, Every 6 Hours as needed for Wheezing Active 01/02/2016 [facility] Alprazolam (Xanax) 0.5 Mg Tablet, 0.5 Mg Oral Three Times A Day Active 01/02/2016 [facility] Amlodipine Besylate 5 Mg Tablet, 5 Mg Oral Daily Active 01/02/2016 [facility] Insulin Detemir (Levemir) 100 Unit/1 Ml Vial, 4 Units Subcutaneously Daily At 1700 Active 01/02/2016 [facility] Mirtazapine 15 Mg Tab, 7.5 Mg Oral Bedtime Active 01/02/2016 [facility] Morphine Sulfate (Morphine Sulfate Er) 30 Mg Tablet.er, 30 Mg Oral Three Times A Day as needed for Pain Active 01/02/2016 [facility] Zolpidem Tartrate (Ambien) 10 Mg Tablet, 10 Mg Oral Bedtime Active 01/02/2016 [facility] Butalb/Acetaminophen/Caffeine (Grmqpa-Ujratsvc-Qhhp 50-325-40) 1 Each Tablet, Every 6 Hours Active 11/09/2015 [facility] Dicyclomine Hcl (Bentyl) 10 Mg Capsule, 10 Mg Oral Three Times A Day Active [place] 11/09/2015 [facility] Gabapentin 300 Mg Capsule, 300 Mg Oral Twice A Day Active 11/09/2015 [facility] Labetalol Hcl (Trandate) 200 Mg Tablet, 400 Mg Oral Every 8 Hours Active [place] 11/09/2015 [facility] Metoclopramide Hcl (Reglan) 10 Mg Tablet, 10 Mg Oral Before Meals And At Bedtime Active [place] 11/09/2015 [facility] Metoprolol Tartrate 50 Mg Tablet, 50 Mg Oral Every 8 Hours Active 11/09/2015 [facility] Minoxidil 2.5 Mg Tablet, 2.5 Mg Oral Twice A Day Active 11/09/2015 [facility] Neomycin/Polymyxin/Hydrocort 10 Ml Btl, 10 Ml Otic Daily as needed for Pain And Temperature Active [place] 11/09/2015 [facility] Phenytoin Sodium 100 Mg Cap, 200 Mg Oral Every 12 Hours Active [place] 11/09/2015 [facility] Phenytoin Sodium Extended (Dilantin) 100 Mg Capsule, 300 Mg Oral Daily Active 11/09/2015 [facility] Orphenadrine Citrate (Norflex) 100 Mg Tab, 100 Mg Oral Twice A Day Active 10/15/2015 [facility] Tizanidine Hcl 4 Mg Capsule, Twice A Day Active 10/15/2015 [facility] Metronidazole 500 Mg Tablet, 500 Mg Oral Three Times A Day Active [place] 10/14/2015 [facility] Docusate Sodium (Colace) 100 Mg Cap, 100 Mg Oral Twice A Day for Constipation Active [place]-odil09/20/2015 [facility] Doxazosin Mesylate (Cardura) 2 Mg Tablet, 4 Mg Oral Twice A Day Active [place]-odil09/20/2015 [facility] Lorazepam (Ativan*) 0.5 Mg Tablet, 0.5 Mg Oral Three Times A Day Active 09/20/2015 [facility] Sucralfate 1 G/10 Ml Susp, 1 G Oral Before Meals And At Bedtime for Gas Active [place]-e 09/20/2015 [facility] Zolpidem Tartrate (Ambien) 10 Mg Tablet, 10 Mg Oral Bedtime as needed for Insomnia Active [place]-od[place] 09/20/2015 [facility] Zolpidem Tartrate (Ambien) 10 Mg Tablet, 10 Mg Oral Bedtime Active 09/05/2015 [facility] Digoxin 250 Mcg Tablet, 250 Mg Oral Daily Active 12/29/2014 [facility] Lidocaine Hcl (Lidocaine Hcl Viscous) 20 Mg/1 Ml Solution, 20 Mg Oral Every 6 Hours Active 12/29/2014 [facility] Isosorbide Mononitrate 30 Mg Tabcr, 30 Mg Oral Daily Active 12/26/2014 [facility] Lisinopril (Prinivil) 10 Mg Tablet, 10 Mg Oral Daily Active 12/26/2014 [facility] Metoprolol Succinate 50 Mg Tab.er.24h, 100 Mg Oral Daily Active 12/26/2014 [facility] Nifedipine 30 Mg Tabcr, 90 Mg Oral Every 12 Hours Active 12/26/2014 [facility] Sodium Bicarbonate 650 Mg Tablet, 1300 Mg Oral Twice A Day Active [place] 12/26/2014 [facility] Docusate Sodium (Colace) 100 Mg Cap, 100 Mg Oral Daily Active [place] 08/06/2014 [facility] Labetalol Hcl (Trandate) 200 Mg Tablet, 200 Mg Oral Every 12 Hours Active [place] 08/06/2014 [facility] Metoclopramide Hcl 5 Mg/Ml Inj, 10 Mg Oral Every 6 Hours Active [place] 08/06/2014 [facility] Metpck 6 Gm Pack, 6 Gm Oral Daily Active [place] 08/06/2014 [facility] [id number] 30 Mg Tabcr, 30 Mg Oral Daily Active [place] 08/06/2014 [facility] [id number] 40 Mg Vial, 40 Mg Oral Twice A Day Active [place] 08/06/2014 [facility] Sennosides (Senokot) 8.6 Mg Tablet, 8.6 Mg Oral Daily Active [place] 08/06/2014 [facility] Alprazolam (Xanax Xr) 1 Mg Tab.er.24h, 1 Mg Oral Daily Active 07/05/2014 [facility] Cefuroxime Axetil (Cefuroxime) 250 Mg Tablet, 250 Mg Oral Every 12 Hours Active [place] 07/05/2014 [facility] Digoxin (Lanoxin) 250 Mcg Tablet, 250 Mcg Oral Daily Active [place] 07/05/2014 [facility] Diphenhydramine Hcl (Benadryl) 25 Mg Capsule, 25 Mg Oral Four Times Daily as needed for Active [place] 07/05/2014 [facility] Esomeprazole Magnesium (Nexium) 40 Mg Capsule.dr, 40 Mg Oral Daily Active [place] 07/05/2014 [facility] Insulin Glargine (Lantus) 100 Units/Ml Ml, 70 Unit Subcutaneously Every Morning Active [place] 07/05/2014 [facility] Insulin Regular, Human (Humulin R) 100 Unit/1 Ml Vial, 1 Units Subcutaneously As Directed Active [place] 07/05/2014 [facility] Lorazepam (Ativan) 1 Mg Tablet, 1 Mg Oral Twice A Day as needed for Active [place] 07/05/2014 [facility] Lorazepam (Ativan) 1 Mg Tablet, 2 Mg Oral Three Times A Day as needed for Active 07/05/2014 [facility] Losartan Potassium (Cozaar) 25 Mg Tablet, 25 Mg Oral Twice A Day Active [place] 07/05/2014 [facility] Methocarbamol (Robaxin) 500 Mg Tablet, 500 Mg Oral Twice A Day Active [place] 07/05/2014 [facility] Metoprolol Tartrate (Lopressor) 25 Mg Tab, 50 Mg Oral Twice A Day Active [place] 07/05/2014 [facility] Metronidazole (Flagyl) 500 Mg Tablet, 500 Mg Oral Three Times A Day Active [place] 07/05/2014 [facility] Promethazine Hcl 25 Mg Tablet, 25 Mg Oral Daily Active [place] 07/05/2014 [facility] Sucralfate (Carafate) 1 Gm/10 Ml Oral.susp, 1 Gm Oral Every 6 Hours Active [place] 07/05/2014 [facility] Cetirizine Hcl (Zyrtec) 10 Mg Capsule, 10 Mg Oral Daily Active 07/01/2014 [facility] Dicyclomine Hcl (Bentyl) 10 Mg Capsule, 10 Mg Oral Twice A Day Active 07/01/2014 [facility] Iron,Carbonyl (Iron) 45 Mg Tablet, 65 Mg Oral Daily Active 07/01/2014 [facility] Levothyroxine Sodium (Levothroid) 88 Mcg Tablet, 88 Mcg Oral Daily Active 07/01/2014 [facility] Medroxyprogesterone Acetate 10 Mg Tablet, 10 Mg Oral Daily Active 07/01/2014 [facility] Metoclopramide Hcl 10 Mg Tablet, 10 Mg Oral Three Times A Day Active 07/01/2014 [facility] Pantoprazole Sodium (Protonix) 40 Mg Tablet.dr, 40 Mg Oral Daily Active 07/01/2014 [facility] Ranitidine Hcl 300 Mg Tablet, 300 Mg Oral Bedtime Active 07/01/2014 [facility] Sucralfate (Carafate) 1 Gm Tablet, 1 Gm Oral Bedtime Active 07/01/2014 [facility] Hydrochlorothiazide 25 Mg Tablet, 25 Mg Oral Daily Active 06/30/2013 [facility] Morphine Sulfate (Morphine Sulfate Er) 60 Mg Tablet.er, 30 Mg Oral Every 12 Hours as needed Active 06/30/2013 [facility] Promethazine Hcl 25 Mg Tablet, 25 Mg Oral Every 6 Hours Active 06/30/2013 [facility] [facility] Diazepam 10 Mg Tablet, 10 Mg Oral Twice A Day Active 06/19/2013 [facility] Dicyclomine Hcl (Bentyl) 20 Mg Tablet, 20 Mg Oral Twice A Day Active 06/19/2013 [facility] Diphenhydramine Hcl (Benadryl) 50 Mg/1 Ml Vial, 12.5 Mg Intraven Every 3-4 Hours as needed Active 02/04/2013 [facility] Bisacodyl (Dulcolax) 10 Mg Supp.rect, Mg Oral Every 7 Days Active 10/03/2012 [facility] Diphenhydramine Hcl (Benadryl) 25 Mg Capsule, 25 Mg Oral As Needed Active 10/03/2012 [facility] Magnisium Citrate , 1 Bottle Oral Q7days Active 10/03/2012 [facility] Promethazine Hcl (Phenergan Supp*) 25 Mg Supp, 25 Mg Rectal As Needed Active 10/03/2012 [facility] Ciprofloxacin Hcl 500 Mg Tablet, 500 Mg Oral Twice A Day Active 09/26/2012 [facility] Tobramycin/Dexamethasone (Tobradex Eye Drops) 5 Ml Soln, 2 Drop Left Eye Three Times A Day Active 09/26/2012 [facility] Baclofen 10 Mg Tablet, 10 Mg Oral Twice A Day Active 09/13/2012 [facility] Albuterol Sulfate 0.63 Mg/3 Ml Vial.neb Every 6 Hours While Awake Active [facility] Albuterol Sulfate (Albuterol Sulfate Hfa) 8.5 Gm Hfa.aer.ad As Needed as needed for Shortness Of Breath Active [facility] Folic Acid/Vitamin B Comp W-C (Dialyvite Tablet) 1 Each Tablet Daily Active [facility] Insulin Regular, Human (Humulin R) 100 Unit/1 Ml Vial As Needed Active [facility] Ipratropium Brice 0.2 Mg/1 Ml Solution As Needed Active [facility] Levetiracetam (Keppra) 500 Mg Tablet Twice A Day Active [facility] Phenytoin Sodium Extended (Dilantin) 100 Mg Capsule Every 12 Hours Active [facility] Promethazine Hcl 25 Mg Tablet Three Times A Day as needed for Nausea Active [facility] Allergies, Adverse Reactions, Alerts Substance Category Reaction Severity Reaction type Status Date Reported Comments Source ketorolac tromethamine Unknown Allergy to Substance Active 02/23/2018 [facility] ondansetron HCl Unknown Allergy to Substance Active 02/23/2018 [facility] Penicillin Unknown Allergy to Substance Active 02/23/2018 [facility] Latex Mild Allergy to Substance Active 02/23/2018 [facility] Hydrocodone Unknown Allergy to Substance Active 02/23/2018 [facility] Aspirin Unknown Allergy to Substance Active 02/23/2018 [facility] Ibuprofen GI upset Unknown Allergy to Substance Active 02/23/2018 [facility] Fentanyl Unknown Allergy to Substance Active 02/23/2018 [facility] Tramadol Unknown Allergy to Substance Active 02/23/2018 [facility] Clonidine Unknown Allergy to Substance Active 02/23/2018 [facility] Hydromorphone Unknown Allergy to Substance Active 02/23/2018 [facility] Metoclopramide Unknown Allergy to Substance Active 02/23/2018 [facility] Nitroglycerin Severe Allergy to Substance Active 02/27/2018 [facility] Acetaminophen NAUSEA AND VOMITTING Severe Allergy to Substance Active 02/27/2018 [facility] Immunizations No Data Provided for This Section Results Order Name Results Value Reference Range Date Interpretation Comments Source Blood leukocytes automated count (number/volume) 3.33 4.8 - 10.8 10/17/2018 [facility] Blood erythrocytes automated count (number/volume) 3.28 3.6 - 5.1 10/17/2018 [facility] Blood hemoglobin measurement (moles/volume) 8.9 12.0 - 16.0 10/17/2018 [facility] Automated blood hematocrit (volume fraction) 31.2 34.2 - 44.1 10/17/2018 [facility] Automated erythrocyte mean corpuscular volume 95.1 81 - 99 10/17/2018 [facility] Automated erythrocyte mean corpuscular hemoglobin (mass per erythrocyte) 27.1 28 - 32 10/17/2018 [facility] Automated erythrocyte mean corpuscular hemoglobin concentration measurement (mass/volume) 28.5 31 - 35 10/17/2018 [facility] RDW BldCo-Rto 18.2 11.7 - 14.4 10/17/2018 [facility] Automated blood platelet count (count/volume) 143 140 - 360 10/17/2018 [facility] Automated blood segmented neutrophil count as percentage of total leukocytes 57.4 38.7 - 80.0 10/17/2018 [facility] Automated blood lymphocyte count as percentage ot total leukocytes 29.7 18.0 - 39.1 10/17/2018 [facility] Automated blood monocyte count as percentage of total leukocytes 8.4 4.4 - 11.3 10/17/2018 [facility] Automated blood eosinophil count as percentage of total leukocytes 3.3 0.0 - 6.0 10/17/2018 [facility] Automated blood basophil count as percentage of total leukocytes 0.6 0.0 - 1.0 10/17/2018 [facility] IM GRANULOCYTES % 0.6 0.0 - 1.0 10/17/2018 [facility] Automated blood neutrophil count 1.9 2.1 - 6.9 10/17/2018 [facility] Blood lymphocytes count (number/volume) 1.0 1.0 - 3.2 10/17/2018 [facility] Blood monocytes automated count (number/volume) 0.3 0.2 - 0.8 10/17/2018 [facility] Automated blood eosinophil count 0.1 0.0 - 0.4 10/17/2018 [facility] Automated blood basophil count (count/volume) 0.0 0.0 - 0.1 10/17/2018 [facility] Absolute Immature Granulocyte (auto 0.02 0 - 0.1 10/17/2018 [facility] Serum or plasma sodium measurement (moles/volume) 141 136 - 145 10/17/2018 [facility] Serum or plasma potassium measurement (moles/volume) 3.6 3.5 - 5.1 10/17/2018 [facility] Serum or plasma chloride measurement (moles/volume) 108 98 - 107 10/17/2018 [facility] Serum or plasma carbon dioxide, total measurement (moles/volume) 19 22 - 29 10/17/2018 [facility] Serum or plasma anion gap 17.6 8 - 16 10/17/2018 [facility] Serum or plasma urea nitrogen measurement (mass/volume) 15 7 - 26 10/17/2018 [facility] Serum or plasma creatinine measurement (mass/volume) 3.54 0.57 - 1.11 10/17/2018 [facility] Serum or plasma urea nitrogen/creatinine mass ratio 4 6 - 25 10/17/2018 [facility] Estimated glomerular filtration rate (GFR) determination 18 60 10/17/2018 [facility] Glucose measurement 154 74 - 118 10/17/2018 [facility] Serum or plasma calcium measurement (mass/volume) 7.9 8.4 - 10.2 10/17/2018 [facility] Serum or plasma total bilirubin measurement (mass/volume) 0.4 0.2 - 1.2 10/17/2018 [facility] Aspartate Amino Transf (AST/SGOT) 17 5 - 34 10/17/2018 [facility] Serum or plasma alanine aminotransferase measurement (enzymatic activity/volume) 9 0 - 55 10/17/2018 [facility] Serum or plasma protein measurement (mass/volume) 7.3 6.5 - 8.1 10/17/2018 [facility] Serum or plasma albumin measurement (mass/volume) 2.9 3.5 - 5.0 10/17/2018 [facility] Plasma globulin measurement (mass/volume) 4.4 2.3 - 3.5 10/17/2018 [facility] Serum or plasma albumin/globulin mass ratio 0.7 0.8 - 2.0 10/17/2018 [facility] Serum or plasma alkaline phosphatase measurement (enzymatic activity/volume) 147 40 - 150 10/17/2018 [facility] Capillary blood glucose measurement by glucometer (mass/volume) 247 70 - 120 02/27/2018 [facility] Capillary blood glucose measurement by glucometer (mass/volume) 247 70 - 120 02/27/2018 [facility] Serum or plasma sodium measurement (moles/volume) 136 136 - 145 02/27/2018 [facility] Serum or plasma potassium measurement (moles/volume) 3.4 3.5 - 5.1 02/27/2018 [facility] Serum or plasma chloride measurement (moles/volume) 101 98 - 107 02/27/2018 [facility] Serum or plasma carbon dioxide, total measurement (moles/volume) 19 22 - 29 02/27/2018 [facility] Serum or plasma anion gap 19.4 8 - 16 02/27/2018 [facility] Serum or plasma urea nitrogen measurement (mass/volume) 57 7 - 26 02/27/2018 [facility] Serum or plasma creatinine measurement (mass/volume) 6.34 0.57 - 1.11 02/27/2018 [facility] Serum or plasma urea nitrogen/creatinine mass ratio 9 6 - 25 02/27/2018 [facility] Estimated glomerular filtration rate (GFR) determination 9 60 02/27/2018 [facility] Glucose measurement 62 74 - 118 02/27/2018 [facility] Serum or plasma calcium measurement (mass/volume) 6.9 8.4 - 10.2 02/27/2018 [facility] Serum or plasma total bilirubin measurement (mass/volume) 0.3 0.2 - 1.2 02/27/2018 [facility] Aspartate Amino Transf (AST/SGOT) 22 5 - 34 02/27/2018 [facility] Serum or plasma alanine aminotransferase measurement (enzymatic activity/volume) 28 0 - 55 02/27/2018 [facility] Serum or plasma protein measurement (mass/volume) 7.4 6.5 - 8.1 02/27/2018 [facility] Serum or plasma albumin measurement (mass/volume) 2.9 3.5 - 5.0 02/27/2018 [facility] Plasma globulin measurement (mass/volume) 4.5 2.3 - 3.5 02/27/2018 [facility] Serum or plasma albumin/globulin mass ratio 0.6 0.8 - 2.0 02/27/2018 [facility] Serum or plasma alkaline phosphatase measurement (enzymatic activity/volume) 175 40 - 150 02/27/2018 [facility] Serum or plasma magnesium measurement (mass/volume) 2.3 1.3 - 2.1 02/27/2018 [facility] Serum or plasma creatine kinase measurement (enzymatic activity/volume) 72 29 - 168 02/27/2018 [facility] Serum or plasma creatine kinase MB measurement (mass/volume) 3.80 0 - 5.0 02/27/2018 [facility] Troponin I measurement by highly sensitive enzyme immunoassay 0.018 0 - 0.300 02/27/2018 [facility] Blood leukocytes automated count (number/volume) 3.98 4.8 - 10.8 02/27/2018 [facility] Blood erythrocytes automated count (number/volume) 3.97 3.6 - 5.1 02/27/2018 [facility] Blood hemoglobin measurement (moles/volume) 11.0 12.0 - 16.0 02/27/2018 [facility] Automated blood hematocrit (volume fraction) 36.8 34.2 - 44.1 02/27/2018 [facility] Automated erythrocyte mean corpuscular volume 92.7 81 - 99 02/27/2018 [facility] Automated erythrocyte mean corpuscular hemoglobin (mass per erythrocyte) 27.7 28 - 32 02/27/2018 [facility] Automated erythrocyte mean corpuscular hemoglobin concentration measurement (mass/volume) 29.9 31 - 35 02/27/2018 [facility] RDW BldCo-Rto 16.7 11.7 - 14.4 02/27/2018 [facility] Automated blood platelet count (count/volume) 174 140 - 360 02/27/2018 [facility] Automated blood segmented neutrophil count as percentage of total leukocytes 68.2 38.7 - 80.0 02/27/2018 [facility] Automated blood lymphocyte count as percentage ot total leukocytes 21.1 18.0 - 39.1 02/27/2018 [facility] Automated blood monocyte count as percentage of total leukocytes 6.3 4.4 - 11.3 02/27/2018 [facility] Automated blood eosinophil count as percentage of total leukocytes 3.3 0.0 - 6.0 02/27/2018 [facility] Automated blood basophil count as percentage of total leukocytes 0.8 0.0 - 1.0 02/27/2018 [facility] IM GRANULOCYTES % 0.3 0.0 - 1.0 02/27/2018 [facility] Automated blood neutrophil count 2.7 2.1 - 6.9 02/27/2018 [facility] Blood lymphocytes count (number/volume) 0.8 1.0 - 3.2 02/27/2018 [facility] Blood monocytes automated count (number/volume) 0.3 0.2 - 0.8 02/27/2018 [facility] Automated blood eosinophil count 0.1 0.0 - 0.4 02/27/2018 [facility] Automated blood basophil count (count/volume) 0.0 0.0 - 0.1 02/27/2018 [facility] Absolute Immature Granulocyte (auto 0.01 0 - 0.1 02/27/2018 [facility] Serum or plasma magnesium measurement (mass/volume) 2.3 1.3 - 2.1 02/27/2018 [facility] Serum or plasma creatine kinase measurement (enzymatic activity/volume) 72 29 - 168 02/27/2018 [facility] Serum or plasma creatine kinase MB measurement (mass/volume) 3.80 0 - 5.0 02/27/2018 [facility] Troponin I measurement by highly sensitive enzyme immunoassay 0.018 0 - 0.300 02/27/2018 [facility] Lactic Acid Level 21.3 4.5 - 19.8 11/23/2017 [facility] Serum or plasma amylase measurement (enzymatic activity/volume) 32 25 - 125 11/23/2017 [facility] Serum or plasma lipase measurement (enzymatic activity/volume) 16 8 - 78 11/23/2017 [facility] Serum or plasma choriogonadotropin ( test) detection NEGATIVE NEGATIVE 11/23/2017 [facility] Urine human chorionic gonadotropin (hCG) detection NEGATIVE NEGATIVE 10/23/2017 [facility] BNP Bld[facility] 2885.4 0 - 100 09/13/2017 [facility] Urine color determination YELLOW YELLOW 09/12/2017 [facility] Urine clarity CLEAR CLEAR 09/12/2017 [facility] Specific gravity of Urine by Test strip 1.015 1.010 - 1.025 09/12/2017 [facility] Urine pH measurement by automated test strip 7 5 - 7 09/12/2017 [facility] Urine leukocyte esterase detection by dipstick NEGATIVE NEGATIVE 09/12/2017 [facility] Urine nitrite detection NEGATIVE NEGATIVE 09/12/2017 [facility] Urine protein measurement by test strip (mass/volume) 3+ NEGATIVE 09/12/2017 [facility] Urine glucose detection NEGATIVE NEGATIVE 09/12/2017 [facility] Urine ketones detection by automated test strip NEGATIVE NEGATIVE 09/12/2017 [facility] Urine urobilinogen measurement by test strip (mass/volume) 0.2 0.2 - 1 09/12/2017 [facility] Urine total bilirubin measurement (mass/volume) NEGATIVE NEGATIVE 09/12/2017 [facility] Urine erythrocytes detection 1+ NEGATIVE 09/12/2017 [facility] Automated urine sediment leukocyte count by microscopy (number/high power field) 6-10 0 - 5 09/12/2017 [facility] Erythrocytes detection in urine sediment by light microscopy 6-10 0 - 5 09/12/2017 [facility] Bacteria detection in urine sediment by light microscopy RARE NONE 09/12/2017 [facility] Epithelial cells detection in urine sediment by light microscopy MODERATE NONE 09/12/2017 [facility] Mucus detection in urine sediment by light microscopy FEW RARE 09/12/2017 [facility] Serum hepatitis B virus surface antibody assay by radioimmunoassay (units/volume) 469.5 Immunity>9.9 09/12/2017 [facility] Serum or plasma hepatitis B virus core antibody detection by immunoassay Negative Negative 09/12/2017 [facility] Serum or plasma hepatitis B virus surface antigen detection by immunoassay Negative Negative 09/12/2017 [facility] Phosphorus measurement 3.6 2.3 - 4.7 09/12/2017 [facility] Serum or plasma levetiracetam measurement (mass/volume) 18.2 10.0 - 40.0 09/12/2017 [facility] Serum or plasma phenytoin measurement (mass/volume) 1.30 10 - 20 09/11/2017 [facility] Blood culture NO GROWTH AFTER 5 DAYS, FINAL REPORT 09/11/2017 [facility] Hemoglobin A1c Percent 7.4 4.0 - 7.0 09/10/2017 [facility] Serum or plasma iron measurement (mass/volume) 37 50 - 170 09/10/2017 [facility] Serum or plasma iron binding capacity measurement (mass/volume) 165 261 - 478 09/10/2017 [facility] Serum or plasma iron saturation measurement (mass fraction) 22 15 - 50 09/10/2017 [facility] Serum or plasma transferrin measurement (mass/volume) 118 180 - 382 09/10/2017 [facility] Blood platelets count by estimate (number/volume) MODERATELY DECREASED 09/09/2017 [facility] Platelet morphology NORMAL 09/09/2017 [facility] Blood hypochromia detection by light microscopy MODERATE 09/09/2017 [facility] Blood poikilocytosis detection by light microscopy SLIGHT 09/09/2017 [facility] Blood anisocytosis detection by light microscopy SLIGHT 09/09/2017 [facility] RBC morphology ABNORMAL 09/09/2017 [facility] Prothrombin time (PT) in platelet poor plasma by coagulation assay 16.8 11.9 - 14.5 07/12/2017 [facility] INR in Platelet poor plasma by Coagulation assay 1.48 07/12/2017 [facility] Serum hepatitis B virus e antigen detection by enzyme immunoassay Negative Negative 07/10/2017 [facility] Qualitative serum or plasma hepatitis B virus e antibody by enzyme immunoassay Negative Negative 07/09/2017 [facility] Serum or plasma chorionic gonadotropin measurement (mass/volume) < 1.20 0 - 10 07/08/2017 [facility] Yeast detection in urine sediment by light microscopy MODERATE NONE 07/07/2017 [facility] Activated partial thromboplastin time (aPTT) in platelet poor plasma bycoagulation assay 31.8 23.8 - 35.5 07/05/2017 [facility] Serum or plasma thyrotropin measurement by detection limit <=0.005 miu/l (units/volume) 1.112 0.350 - 4.940 07/05/2017 [facility] Urine opiates screening test POSITIVE NEGATIVE 07/05/2017 [facility] Barbiturates screen, urine POSITIVE NEGATIVE 07/05/2017 [facility] Urine phencyclidine detection by screening method NEGATIVE NEGATIVE 07/05/2017 [facility] Urine amphetamines detection by screen method > 1000 ng/mL NEGATIVE NEGATIVE 07/05/2017 [facility] Urine Methamphetamines Screen NEGATIVE NEGATIVE 07/05/2017 [facility] Urine benzodiazepines detection by screening method POSITIVE NEGATIVE 07/05/2017 [facility] Urine cocaine measurement (mass/volume) NEGATIVE NEGATIVE 07/05/2017 [facility] Urine cannabinoids detection by screening method NEGATIVE NEGATIVE 07/05/2017 [facility] Urine methadone screen NEGATIVE NEGATIVE 07/05/2017 [facility] Amorphous sediment detection in urine sediment by light microscopy RARE FEW 07/05/2017 [facility] Fibrin D-dimer DDU measurement in platelet poor plasma (mass/volume) 0.41 0.00 - 0.45 07/02/2017 [facility] Serum or plasma phospholipid measurement (mass/volume) 225 06/06/2017 [facility] Stool gastrointestinal hemoglobin detection POSITIVE NEGATIVE 06/06/2017 [facility] [facility] Differential Total Cells Counted 100 06/03/2017 [facility] Manual blood neutrophils/100 leukocytes 71 40 - 74 06/03/2017 [facility] Manual blood lymphocytes/100 leukocytes 20 19 - 48 06/03/2017 [facility] Manual blood monocytes/100 leukocytes 4 3.4 - 9.0 06/03/2017 [facility] Manual blood eosinophil count as percentage of total leukocytes 5 0 - 7 06/03/2017 [facility] Blood polychromasia detection by light microscopy FEW 06/03/2017 [facility] Serum or plasma ferritin measurement (mass/volume) 956.34 4.63 - 204.00 06/01/2017 [facility] Serum or plasma hepatitis A virus IgM antibody detection by immunoassay Negative 05/31/2017 [facility] Serum or plasma hepatitis B virus core IgM antibody detection by immunoassay Negative 05/31/2017 [facility] Serum hepatitis C virus antibody detection 0.1 05/31/2017 [facility] Transitional cells detection in urine sediment by light microscopy FEW NONE 05/30/2017 [facility] Renal epithelial cells detection in urine sediment by light microscopy FEW NONE 05/30/2017 [facility] Bacterial urine culture Urine Culture [facility] Pathology Reports No Data Provided for This [...] Date DC Date Status Source Discharged Inpatient [id number] JOHN BAHENA MD 05/30/2017 06/03/2017 [facility] Departed Emergency Room [id number] RY DRAPER MD 06/05/2017 06/05/2017 [facility] Departed Emergency Room [id number] MIREILLE AMOR MD 06/06/2017 06/07/2017 [facility] Discharged Inpatient (obs) [id number] JOHN BAHENA MD 06/25/2017 06/27/2017 [facility] Discharged Inpatient [id number] JOHN BAHENA MD 06/29/2017 06/30/2017 [facility] Discharged Inpatient [id number] JOHN BAHENA MD 07/02/2017 07/04/2017 [facility] Departed Emergency Room [id number] INA ELIAS 07/05/2017 07/05/2017 [facility] Discharged Inpatient [id number] JOHN BAHENA MD 07/10/2017 07/14/2017 [facility] Discharged Inpatient (obs) [id number] JOHN BAHENA MD 08/02/2017 08/04/2017 [facility] Discharged Inpatient (obs) [id number] JOHN BAHENA MD 09/08/2017 09/10/2017 [facility] Discharged Inpatient [id number] JOHN BAHENA MD 09/11/2017 09/13/2017 [facility] Departed Emergency Room [id number] SAM BLACK MD 09/14/2017 09/14/2017 [facility] Departed Emergency Room [id number] RY DRAPER MD 09/16/2017 09/16/2017 [facility] Departed Emergency Room [id number] JOSE F DOZIER MD 10/23/2017 10/23/2017 [facility] Departed Emergency Room [id number] MIREILLE AMOR MD 11/23/2017 11/23/2017 [facility] Departed Emergency Room [id number] JIA AREVALO MD 11/23/2017 11/23/2017 [facility] Departed Emergency Room [id number] SAM BLACK MD 02/23/2018 02/23/2018 [facility] Departed Emergency Room [id number] KELSEA JAFFE MD 02/27/2018 02/27/2018 [facility] Departed Emergency Room [id number] GALEN SALINAS MD 10/17/2018 10/17/2018 [facility] Departed Emergency Room [id number] SAM EATON MD 10/18/2018 10/18/2018 [facility] Departed Emergency Room [id number] RJ PINNO MD 10/20/2018 10/20/2018 [facility] Departed Emergency Room [id number] VANESA PATTON MD 11/12/2018 11/12/2018 [facility] Procedures Procedure Code Date Perfomer Comments Source Computed tomography of brain without radiopaque contrast [id number] 02/23/2018 [facility] PERFORMANCE OF URINARY FILTRATION, <6 HRS/DAY [id number] 09/12/2017 [facility] [address] of abdomen and pelvis without contrast [id number] 09/11/[facility] Computed tomography of brain without radiopaque contrast [id number] 09/11/2017 [facility] BLOOD TRANSFUSION SERVICE [id number] 09/08/2017 [facility] HEMODIALYSIS ONE EVALUATION [id number] 09/08/2017 [facility] Computed tomography of brain without radiopaque contrast [id number] 09/08/2017 [facility] Computed tomography of cervical spine without contrast [id number] 09/08/2017 [facility] Unsched dialysis ESRD pt hos [id number] 08/02/2017 [facility] INSERTION OF FEEDING DEVICE INTO JEJUNUM, ENDO [id number] 07/12/2017 [facility] PERFORMANCE OF URINARY FILTRATION, <6 HRS/DAY [id number] 07/10/2017 [facility] EXCISION OF STOMACH, PYLORUS, ENDO, DIAGN [id number] 07/09/2017 [place] [facility] US abdomen complete [id number] 06/30/2017 [facility] PERFORMANCE OF URINARY FILTRATION, <6 HRS/DAY [id number] 06/29/2017 [place] [facility] CT of abdomen and pelvis without contrast [id number] 06/29/[address] [facility] of abdomen and pelvis without contrast [id number] [facility]AUT RED BLOOD CELLS IN PERIPH VEIN, PERC [id number] 06/03/2017 [facility] PERFORMANCE OF URINARY FILTRATION, <6 HRS/DAY [id number] 06/03/2017 [facility] INSERTION OF INFUSION DEV INTO SUP VENA CAVA, PERC APPROACH [id number] 05/31/2017 [facility] FLUOROSCOPY OF OTHER VEINS USING LOW OSMOLAR CONTRAST [id number] 05/31/2017 [facility] REMOVAL OF INFUSION DEVICE FROM UPPER VEIN, WEIGH AND CHARGE WORKER APPROACH [id number] 05/31/2017 [facility] INSERT OF TUNNEL VAD INTO CHEST SUBCU/FASCIA, PERC APPROACH [id number] 05/31/2017 [facility] PERFORMANCE OF URINARY FILTRATION, <6 HRS/DAY [id number] 05/31/2017 [facility] X-ray of chest, single view [id number] 05/30/2017 [facility] Assessment and Plan No Data Provided for [...] ENEMA DIRECTED. FOLLOW UP WITH PCP. 11/12/2018 [facility] Discharge Date 10/20/18 2:39am Disposition HOME, SELF-CARE Condition at Discharge Stable Instructions/Education Provided Anemia Contusion Diarrhea - Adult Ear Pain - Adult Hyperglycemia Vomiting - Adult Forms Provided Work/School Excuse Prescriptions See Medication Section Referrals JOHN BAHENA MD Address: [address] [place] [id number] Note: Please follow up with Dr Church [...] help with the pain 10/20/2018 [facility] Discharge Date 02/27/18 9:42pm Disposition HOME, SELF-CARE Condition at Discharge Stable Instructions/Education Provided Chest Pain - Chest Wall Hypertension Forms Provided Work/School Excuse Prescriptions See Medication Section Referrals JOHN BAHENA MD Address: [address] [place] [address] [phone] Additional Instructions/Education 1. FOLLOW UP FOR SCHEDULED DIALYSIS TREATMENT TOMORROW. 2. FOLLOW UP WITH YOUR PCP TOMORROW. 3. RETURN TO ED IF SYMPTOMS WORSEN OR HAVE ANY CONCERNS. 02/27/2018 [facility] Social History Social History Date Source Social [...] Start Date Stop Date Never Smoker 11/12/2018 [facility] Family History Value Date Source Relationship Condition [...] hypertension 40's - 50 07/01/2014 1:03pm 11/12/2018 [facility] Relationship Condition Age at Onset Recorded Date/Time 33 Father FH: kidney disease Not Recorded 06/25/2017 11:29pm 33 Father FH: liver disease Not Recorded 06/25/2017 11:29pm 33 Father Family history of diabetes mellitus 30's - 40 07/01/2014 1:03pm 33 Father Family history of hypertension 30's - 40 07/01/2014 1:03pm 32 Mother Family history of hypertension 40's - 50 07/01/2014 1:03pm 10/20/2018 [facility] Relationship Condition Age at Onset Recorded Date/Time 33 Father FH: kidney disease Not Recorded 06/25/2017 11:29pm 33 Father FH: liver disease Not Recorded 06/25/2017 11:29pm 33 Father Family history of diabetes mellitus 30's - 40 07/01/2014 1:03pm 33 Father Family history of hypertension 30's - 40 07/01/2014 1:03pm 32 Mother Family history of hypertension 40's - 50 07/01/2014 1:03pm 02/27/2018 [facility] Advance Directives Order Name Results Value Date Source Advance Directives Advance Directives Directive Response Recorded Date/Time Does the patient have an advance directive? No 11/12/18 5:34am If yes, is advance directive on file with [facility]? No 09/11/17 8:00pm If not on file with [facility] will patient provide a copy? No 11/12/18 5:34am Do you have a Directive to Physician? No 11/12/18 5:34am Do you have a Medical Power of Urgent Care Nurse Practitioner? No 11/12/18 5:34am Do you have an [...] rights and responsibilities? Yes 11/12/18 5:34am 11/12/2018 [facility] Advance Directives Advance Directives Directive Response Recorded Date/Time Does the patient have an advance directive? Yes 11/23/17 3:46pm If yes, is advance directive on file with [facility]? No 09/11/17 8:00pm If not on file with [facility] will patient provide a copy? Yes 11/23/17 2:24am 10/20/2018 [facility] Advance Directives Advance Directives Directive Response Recorded Date/Time Does the patient have an advance directive? Yes 11/23/17 3:46pm If yes, is advance directive on file with [facility]? No 09/11/17 8:00pm If not on file with [facility] will patient provide a copy? Yes 11/23/17 2:24am Do you have a Directive to Physician? Yes 02/27/18 2:07pm Do you have a Medical Power of Urgent Care Nurse Practitioner? Yes 02/27/18 2:07pm Do you have an [...] responsibilities? Yes 02/27/18 2:07pm 02/27/2018 [facility] Functional Status No Data Provided for This Section
[2018-11-23] MEDS ORDERED: PROMETHAZINE HCL (IM) 25 MG/ML VIAL IM ONE (21:45)
[2018-11-23] MEDS ORDERED: DIPHENHYDRAMINE HCL INJ 50 MG/ML VIAL IV ONE (22:00)
[2018-11-23] MEDS ORDERED: DIPHENHYDRAMINE HCL INJ 50 MG/ML VIAL ONE (22:02)
== END 2018-11-23 22:46 | disposition home or self-care (01) ==
LOC: FSED 19:15
DX: G44.221 Chronic tension-type headache, intractable (principal)
CPT/HCPCS: 80048; 96374; 99283; J1200; J1642